=== PATIENT | female | born 1955 | race Caucasian/White ===

== ENCOUNTER 2016-05-05 11:22 | Inpatient (IN) | payer BC, OTHER ==
[~2016-05-05] VITALS: Ht 165.1 cm; Wt 149.1 kg
[~2016-05-05 11:22] MED LIST: ADVIN25050 INH; AMOX875T PO; BMX1 PO; CHOL100010 PO; DOXY100C2 PO; INSU1.2I SQ; LORC1TAB PO; MULTTAB PO; PRED10TA PO; SIMV80TA5 PO; TIOTCAP INH; VITA400C15 PO
[2016-05-05] MEDS ORDERED: FUROSEMIDE 40 MG/4 ML VIAL IV STA (12:02)
[2016-05-05] MEDS ORDERED: ALBUT/IPRATROP 3MG/0.5MG NEB 3 ML VIAL INH STA (12:02)
[2016-05-05 12:13] LABS: BASO % 0.2 %; BASO ABS # 0.02 K/uL (0-0.2); EOS % 1.8 %; HEMATOCRIT 32.5 % (37-47); IG% 1.1 %; LYMPH % 8.9 %; LYMPH ABS # 0.93 K/uL (1.2-3.4); MEAN CELL VOLUME 96.4 fL (80-100); MEAN CORPUSCULAR HEMOGLOBIN 30.6 pg (25-34); MEAN CORPUSCULAR HGB CONC 31.7 g/dl (32-36); MEAN PLATELET VOLUME 9.9 fL (7.4-10.4); MONO % 12.1 %; NEUT % 75.9 %; PLATELET COUNT 209 K/uL (130-400); RED BLOOD COUNT 3.37 M/uL (4.2-5.4); WHITE BLOOD COUNT 10.42 K/uL (4.8-10.8)
[2016-05-05 12:27] LABS: PARTIAL THROMBOPLASTIN RATIO 0.8; PROTHROMBIN TIME (PATIENT) 10.8 SECONDS (9.0-12.0)
--- NOTE | 2016-05-05 12:34 | DIAGNOSTIC IMAGING REPORT ---
CHEST ONE VIEW PORTABLE CLINICAL HISTORY: Shortness of breath, edema. COMPARISON STUDY: 08/20/2015 FINDINGS: The right-sided PICC catheter has been removed. Heart is enlarged. Evaluation is difficult due to the patient's large body habitus. There is suspected asymmetric pulmonary vascular congestion. There is right basilar atelectasis/consolidation. Bibasilar atelectatic changes are also evident.[ Radiographic follow-up is recommended. IMPRESSION: 1. Difficult study to interpret due to the patient's large body habitus and portable nature of the examination 2. Suspected mild asymmetric pulmonary vascular congestion 3. Right medial basilar atelectasis/consolidation 4. Bibasilar atelectasis Electronically signed by: Trung Diallo M.D. 05/05/2016 12:33 PM Dictated Date/Time: 05/05/2016 12:31 PM
[2016-05-05 12:37] LABS: ALB/GLOB RATIO 0.5 (0.9-2); ALKALINE PHOSPHATASE 70 U/L (45-117); ALT/SGPT 34 U/L (12-78); AST/SGOT 15 U/L (15-37); BLOOD UREA NITROGEN 55 mg/dl (7-18); BUN/CREATININE RATIO 26.3 (10-20); CALCIUM 9.8 mg/dl (8.5-10.1); CARBON DIOXIDE 40 mmol/L (21-32); CHLORIDE 94 mmol/L (98-107); CKMB/CK RATIO 4.5 (0-3.0); GLUCOSE 115 mg/dl (70-99); POTASSIUM 4.1 mmol/L (3.5-5.1); SODIUM 139 mmol/L (136-145)
[2016-05-05 12:55] LABS: COMPLETE YES
[2016-05-05] MEDS ORDERED: HYDR-5688 PO (13:08)
[2016-05-05] MEDS ORDERED: SPIR50TA2 PO (13:08)
[2016-05-05] MEDS ORDERED: IPRASOL4 INH (13:08)
[2016-05-05] MEDS ORDERED: ACETAMINOPHEN 325 MG TAB PO PRN (14:00)
[2016-05-05] MEDS ORDERED: POLYETHYLENE (MIRALAX) 17 GM PACK PO PRN (14:00)
[2016-05-05] MEDS ORDERED: MAGNESIUM HYDROXIDE SUSP 30 ML UDC PO PRN (14:00)
[2016-05-05] MEDS ORDERED: ALUMINUM/MAGNESIUM/SIMETH (MAALOX MAX) 30 ML UDC PO PRN (14:00)
[2016-05-05] MEDS ORDERED: ONDANSETRON INJ 2 MG/ML 2 ML VIAL IV PRN (14:00)
--- NOTE | 2016-05-05 14:09 | EMERGENCY ROOM VISIT NOTE ---
History Report prepared by [place]: Aziza Hood Under the Supervision of: Dr. Wolf Dowling D.O. 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 The patient states that she has fluid build up and takes medication for it but states in the past she has had to be seen in the ED to get liquid Lasix to treat the edema. She states her symptoms started to feel similar to when she had to be hospitalized in the past. The patient states the edema is her all over her body not just her legs. She states she feels her symptoms are worse on the right than the left side. The patient states her swelling in her legs and feet are worsened to the point she has been unable to put on shoes. She also states she has had increased SOB and usually wears 3 L of oxygen at home but has up it to 4 L but still has worsening SOB with exertion. Her states that when she gets up at any point her oxygen saturation goes down very low when they are at home. The patient states that she also has degenerative disc disease and states at baseline she cannot get around very well but states that it is much worse recently due to the edema and SOB. 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 A total of 10 systems reviewed and were otherwise negative. Past Medical & Surgical Medical Problems: (1) Acute kidney injury (2) Acute on chronic diastolic (congestive) heart failure (3) Acute respiratory failure with hypoxia and hypercapnia (4) Anemia (5) Cellulitis Of Leg (6) Cervical Disc Degen (7) CHF (congestive heart failure) (8) Chronic kidney disease (CKD) stage G3b/A1, moderately decreased glomerular filtration rate (GFR) between 30-44 mL/min/1.73 square meter and albuminuria creatinine ratio less than 30 mg/g (9) COPD (chronic obstructive pulmonary disease) (10) Cystitis (11) Diab Mariama Wo Compl, Type Ii Or Unspec Type, Uncontrolled (12) Diabetes (13) Edema (14) Hyponatremia (15) Metabolic alkalosis with respiratory acidosis (16) Obesity hypoventilation syndrome (17) Ovarian Cyst Nec/Nos (18) Pulmonary Collapse (19) Sciatica Family History Cancer Diabetes mellitus Gallbladder disease Heart disease Lung disease Social History Smoking Status: Former Smoker Drug Use: none Marital Status: Housing Status: lives with family Occupation Status: unemployed Current/Historical Medications Scheduled Allopurinol (Zyloprim), 100 MG PO DAILY Amoxicillin & Pot Clavulanate (Augmentin 875-125 mg), 1 TAB PO BID Ascorbic Acid (Vitamin C 500 mg), 1,000 MG PO DAILY Atorvastatin (Lipitor), 40 MG PO DAILY Bumetanide (Bumetanide), 3 MG PO BID17 Cholecalciferol (Vitamin D3), 1,000 UNITS PO DAILY Doxycycline Hyclate (Vibramycin), 100 MG PO BID Fluticasone Prop/Salmeterol (Advair Diskus 500/50 60 Dose), 1 PUFF INH BID Insulin Aspart (Novolog Flexpen), 50 UNITS SQ W/BREAKFAST Insulin Aspart (Novolog Flexpen), 50 UNITS SQ W/LUNCH Insulin Aspart (Novolog Flexpen), 90 UNITS SQ W/SUPPER Insulin Aspart (Novolog Flexpen), 40 UNITS SQ HS Insulin Glargine (Toujeo Solostar), 70 UNIT SQ TID Lorcaserin Hcl (Belviq), 10 MG PO BID Metoprolol Succ (Toprol Xl) (Toprol-Xl ), 150 MG PO DAILY Multiple Vitamins W/ Minerals (One Daily For Women), 1 TAB PO DAILY Prednisone (Prednisone), 15 MG PO QAM Pregabalin (Lyrica), 150 MG PO TID Pyridoxine (Vitamin B6), 200 MG PO DAILY Spironolactone (Aldactone), 50 MG PO BID Tiotropium Marion (Spiriva Handihaler), 1 CAP INH BID Verapamil HCl (Verapamil HCl ER), 240 MG PO DAILY Vitamin E (Vitamin E), 800 UNITS PO DAILY Scheduled PRN Hydrocodone/Acetaminophen 5MG/325MG (Thorndike 5MG/325MG), 1-2 TABLET PO Q4H PRN for Pain Ipratropium-Albuterol (Duoneb), 1 TREATMENT INH Q6H PRN for SOB/Wheezing Allergies Coded Allergies: Daptomycin (Verified Allergy, Mild, HIVES, 02/25/16) itching Codeine (Verified Allergy, Unknown, unknown, 02/25/16) has tolerated morphine Iodine (Verified Allergy, Unknown, 02/25/16) Shellfish (Verified Allergy, Unknown, 02/25/16) Sulfamethoxazole w/Trimethoprim (Verified Allergy, Unknown, RASH, 02/25/16 ) Physical Exam Vital Signs Date Time Temp Pulse Resp B/P Pulse Ox O2 Delivery O2 Flow Rate FiO2 05/05/16 13:49 71 27 138/61 95 Nasal Cannula 4.0 05/05/16 13:28 69 26 153/69 94 Nasal Cannula 4.0 05/05/16 12:14 77 05/05/16 12:14 93 Nasal Cannula 4.0 05/05/16 11:50 86 Nasal Cannula 3.0 05/05/16 11:28 36.6 76 28 143/67 93 Nasal Cannula Physical Exam CONSTITUTIONAL/VITAL SIGNS: Reviewed / noted above. GENERAL: Non-toxic in appearance. INTEGUMENTARY: Warm, dry, and [place]. HEAD: Normocephalic. EYES: without scleral icterus or trauma. ENT/OROPHARYNX: clear and moist. LYMPHADENOPATHY/NECK: Is supple without lymphadenopathy or meningismus. RESPIRATORY: Lungs clear and equal. No respiratory distress. CARDIOVASCULAR: Regular rate and rhythm. GI/ABDOMEN: Soft and nontender. No organomegaly or pulsatile mass. No rebound or guarding. Normal bowel sounds. Abdominal wall edema with extension. EXTREMITIES: Bilateral lower extremity edema. BACK: No CVA tenderness. NEUROLOGICAL: Intact without focal deficits. PSYCHIATRIC: normal affect. MUSCULOSKELETAL: Normally developed with good muscle tone. Medical Decision & Procedures ER Provider Diagnostic Interpretation: X ray results and stated below per my interpretation and radiology interpretation. CHEST ONE VIEW PORTABLE CLINICAL HISTORY: Shortness of breath, edema. COMPARISON STUDY: 08/20/2015 FINDINGS: The right-sided PICC catheter has been removed. Heart is enlarged. Evaluation is difficult due to the patient's large body habitus. There is suspected asymmetric pulmonary vascular congestion. There is right basilar atelectasis/consolidation. Bibasilar atelectatic changes are also evident.[ Radiographic follow-up is recommended. IMPRESSION: 1. Difficult study to interpret due to the patient's large body habitus and portable nature of the examination 2. Suspected mild asymmetric pulmonary vascular congestion 3. Right medial basilar atelectasis/consolidation 4. Bibasilar atelectasis Electronically signed by: Trung Diallo M.D. 05/05/2016 12:33 PM Dictated Date/Time: 05/05/2016 12:31 PM Laboratory Results 05/05/16 11:50 Red Blood Count 3.37, Mean Corpuscular Volume 96.4, Mean Corpuscular Hemoglobin 30.6, Mean Corpuscular Hemoglobin Concent 31.7, Mean Platelet Volume 9.9, Neutrophils (%) (Auto) 75.9, Lymphocytes (%) (Auto) 8.9, Monocytes (%) (Auto) 12.1, Eosinophils (%) (Auto) 1.8, Basophils (%) (Auto) 0.2, Neutrophils # (Auto ) 7.91, Lymphocytes # (Auto) 0.93, Monocytes # (Auto) 1.26, Eosinophils # (Auto ) 0.19, Basophils # (Auto) 0.02 05/05/16 11:50 Test 05/05/16 11:50 White Blood Count 10.42 K/uL (4.8-10.8) Red Blood Count 3.37 M/uL (4.2-5.4) Hemoglobin 10.3 g/dL (12.0-16.0) Hematocrit 32.5 % (37-47) Mean Corpuscular Volume 96.4 fL (80-100) Mean Corpuscular Hemoglobin 30.6 pg (25-34) Mean Corpuscular Hemoglobin Concent 31.7 g/dl (32-36) Platelet Count 209 K/uL (130-400) Mean Platelet Volume 9.9 fL (7.4-10.4) Neutrophils (%) (Auto) 75.9 % Lymphocytes (%) (Auto) 8.9 % Monocytes (%) (Auto) 12.1 % Eosinophils (%) (Auto) 1.8 % Basophils (%) (Auto) 0.2 % Neutrophils # (Auto) 7.91 K/uL (1.4-6.5) Lymphocytes # (Auto) 0.93 K/uL (1.2-3.4) Monocytes # (Auto) 1.26 K/uL (0.11-0.59) Eosinophils # (Auto) 0.19 K/uL (0-0.5) Basophils # (Auto) 0.02 K/uL (0-0.2) RDW Standard Deviation 70.9 fL (36.4-46.3) RDW Coefficient of Variation 20.1 % (11.5-14.5) Immature Granulocyte % (Auto) 1.1 % Immature Granulocyte # (Auto) 0.11 K/uL (0.00-0.02) Nucleated RBC Absolute Count (auto) 0.12 K/uL (0-0) Nucleated Red Blood Cells % 1.1 % Red Blood Cell Morphology Unremarkable Prothrombin Time 10.8 SECONDS (9.0-12.0) Prothromb Time International Ratio 1.0 (0.9-1.1) Activated Partial Thromboplast Time 20.8 SECONDS (21.0-31.0) Partial Thromboplastin Ratio 0.8 Anion Gap 5.0 mmol/L (3-11) Est Creatinine Clear Calc Drug Dose 42.1 ml/min Estimated GFR () 28.5 Estimated GFR (Non- 24.6 BUN/Creatinine Ratio 26.3 (10-20) Calcium Level 9.8 mg/dl (8.5-10.1) Total Bilirubin 0.3 mg/dl (0.2-1) Aspartate Amino Transf (AST/SGOT) 15 U/L (15-37) Alanine Aminotransferase (ALT/SGPT) 34 U/L (12-78) Alkaline Phosphatase 70 U/L (45-117) Total Creatine Kinase 53 U/L (26-192) Creatine Kinase MB 2.4 ng/ml (0.5-3.6) Creatine Kinase MB Ratio 4.5 (0-3.0) Troponin I < 0.015 ng/ml (0-0.045) Pro-B-Type Natriuretic Peptide 199 pg/ml (0-900) Total Protein 8.9 gm/dl (6.4-8.2) Albumin 3.0 gm/dl (3.4-5.0) Globulin 5.9 gm/dl (2.5-4.0) Albumin/Globulin Ratio 0.5 (0.9-2) Laboratory results as stated above per my review. Medications Administered Medications (Trade) Dose Ordered Sig/Duyen Route Start Time Stop Time Status Last Admin Dose Admin Albuterol/ Ipratropium (Duoneb) 3 ml NOW STAT INH 05/05/16 12:02 05/05/16 12:04 DC 05/05/16 12:07 3 ML Furosemide (Lasix Inj) 40 mg NOW STAT IV 05/05/16 12:02 05/05/16 12:04 DC 05/05/16 12:07 40 MG ECG Indication: SOB/dyspnea Rate (beats per minute): 67 Rhythm: normal sinus Findings: no acute ischemic change, no ectopy ED Course 1158: Previous medical records were reviewed. The patient was evaluated in room C2B. A complete history and physical examination was performed. 1202: Ordered Lasix Inj 40 mg IV, DuoNeb 3 ml INH. 1333: I discussed the case with Dr. Erendira MULLINS Hospitalist. He agreed to evaluate the patient for further management and care. Medical Decision the differential was considered includes acute myocardial infarction, acute coronary syndrome, myocarditis, pericarditis, pericardial effusions /tamponade, esophageal perforation, pulmonary embolism, pneumonia, pneumothorax, cardiomyopathy, congestive heart, anemia , COPD/asthma exacerbation. 60-year-old female who presents to the ED with a chief complaint of exertional dyspnea as well as edema. The patient has a pulse ox at home and states that she becomes hypoxic with oxygen saturations in the 70s when she attempts to walk to the bathroom with 4 L of oxygen. The patient reports increasing edema. Her vital signs are stable. Her exam reveals significant edema to the lower extremities as well as the body. The patient did desaturate into the low 80s while on 4 L getting from the wheelchair into her bed. Her lungs are diminished. The rest of her exam is noted above. She was treated with IV Lasix as well as a DuoNeb treatment. She has chronic renal insufficiency. Chest x-ray did not show acute disease. Blood work was relatively unremarkable. The patient was told results. She will be seen by the hospitalist for further inpatient care and evaluation. Consults Time Called: 1331 Consulting Physician: Dr. Erendira MULLINS Hospitalist. Returned Call: [phone] I discussed the case with Dr. Erendira MULLINS Hospitalist. He agreed to evaluate the patient for further management and care. Impression Primary Impression: Dyspnea on exertion Additional Impressions: exertional hypoxia Anasarca Chronic renal failure Scribe Attestation The scribe's documentation has been prepared under my direction and personally reviewed by me in its entirety. I confirm that the note above accurately reflects all work, treatment, procedures, and medical decision making performed by me. Departure Information Dispostion Being Evaluated By Hospitalist Referrals Emily Isaac C.R.N.P (PCP) Patient Instructions My [facility] Problem Qualifiers
[2016-05-05 14:58] LABS: ARTERIAL BLD GAS O2 SATURATION 93.9 % (90-95); ARTERIAL BLOOD GAS BASE EXCESS 11.8 mEq/L (-9-1.8); ARTERIAL BLOOD GAS HCO3 39 mmol/L (19-24); ARTERIAL BLOOD GAS PO2 80 mm/Hg (80-95); ARTERIAL BLOOD GAS pH 7.41 (7.35-7.45)
[2016-05-05 14:59] LABS: O2 ADMINISTRATION 4 L
[2016-05-05 15:00] LABS: ALLEN TEST POS (POS)
[2016-05-05 15:38] VITALS: BP 176/76; PULSE 73; TEMP 36.6; O2SAT 93; Ht 165.1 cm; Wt 149.1 kg
[2016-05-05] MEDS ORDERED: PHARMACY GLYCEMIC MGMT CONSULT PRN (15:48)
[2016-05-05 16:10] VITALS: PULSE 71; O2SAT 97
[2016-05-05] MEDS: ALBUT/IPRATROP 3MG/0.5MG NEB 3 ML VIAL INH SCH ×2 (16:10→19:32)
[2016-05-05 16:16] LABS: HEMATOCRIT 30.7 % (37-47); MEAN CELL VOLUME 94.5 fL (80-100); MEAN CORPUSCULAR HEMOGLOBIN 31.1 pg (25-34); MEAN CORPUSCULAR HGB CONC 32.9 g/dl (32-36); MEAN PLATELET VOLUME 9.5 fL (7.4-10.4); PLATELET COUNT 186 K/uL (130-400); RED BLOOD COUNT 3.25 M/uL (4.2-5.4); WHITE BLOOD COUNT 11.33 K/uL (4.8-10.8)
--- NOTE | 2016-05-05 16:33 | Pharmacy Progress Note ---
Glycemic Control Intl Consult Date of Service May 05, 2016. Scope Glycemic Pharmacist consulted by Dr Traylor on 05/05/16 for glycemic control and to write orders per [facility] inpatient glycemic control protocol Objective Weight (Kilograms): 154.400 Accuchecks BSG (last 24hrs): Test 05/05/16 11:50 05/05/16 16:04 05/05/16 16:07 Random Glucose 115 mg/dl (70-99) Bedside Glucose 139 mg/dl (70-90) Laboratory Data (last 24hrs) Test 05/05/16 11:50 05/05/16 16:07 Anion Gap 5.0 mmol/L BUN/Creatinine Ratio 26.3 Blood Urea Nitrogen 55 mg/dl Creatinine 2.10 mg/dl Potassium Level 4.1 mmol/L Sodium Level 139 mmol/L White Blood Count 10.42 K/uL 11.33 K/uL Red Blood Count 3.37 M/uL Hemoglobin 10.3 g/dL Hematocrit 32.5 % Mean Corpuscular Volume 96.4 fL Mean Corpuscular Hemoglobin 30.6 pg Mean Corpuscular Hemoglobin Concent 31.7 g/dl Platelet Count 209 K/uL Mean Platelet Volume 9.9 fL Neutrophils (%) (Auto) 75.9 % Lymphocytes (%) (Auto) 8.9 % Monocytes (%) (Auto) 12.1 % Eosinophils (%) (Auto) 1.8 % Basophils (%) (Auto) 0.2 % Neutrophils # (Auto) 7.91 K/uL Lymphocytes # (Auto) 0.93 K/uL Monocytes # (Auto) 1.26 K/uL Eosinophils # (Auto) 0.19 K/uL Basophils # (Auto) 0.02 K/uL Recent Pertinent Medications Outpatient Anti-diabetic Regimen: * Toujeo 70 units SQ TID * NovoLog * 50 units SQ with breakfast * 50 units SQ with lunch * 90 units SQ with dinner * 40 units SQ at bedtime * A1c = 6.2 % 02/13/16 Risk Factors for Insulin Resistance: * Steroids: Prednisone 15mg PO daily (home medication) * Infection: PO ABX from [employer] * Diet: AHA Assessment & Plan ASSESSMENT: 05/05/16 * Type 2 diabetic known from prior admissions and consults, the last being in August 2015 * A1c is WNL and shows adequate glycemic control as an outpatient with ~440 units of insulin per day * Large doses of insulin needed as an outpatient, however needs change when admitted * large doses required when on ATC steroids * Currently, BSGs are WNL * Transition Toujeo to Lantus as this is a non-formulary medication * Doses of insulin will be decreased initially and titrated based on response as intpatient needs usually vary compared to home regimen * NovoLog parameters based on historical data PLAN FOR INPATIENT GLYCEMIC CONTROL: * Lantus SQ BID * 50 units if BSG is below 120mg/dL * 60 units if BSG is 120-160mg/dL * 70 units if BSG is above 160mg/dL * NovoLog SQ AC and HS * Correction factor: 5mg/dL/unit * Carb ratio: 1 unit per 2 g of CHO consumed * Goal range: 110-150mg/dL * A1c - current * added to discharge instructions * Please note that the plan above was derived based on current level of insulin resistance and hospital stress. These recommendations are appropriate for inpatient admission only. Plan of care upon discharge will need to be reassessed to avoid potential outpatient hypo/hyperglycemia. Thank you.
--- NOTE | 2016-05-05 16:41 | Medical Student: [facility] ---
Med Student History & Physical Date & Time of Service: May 05, 2016 at 15:43 Chief Complaint: "shortness of breath and swelling" Primary Care Physician: Emily Isaac C.R.N.P History of Present Illness Source: patient Mrs. Gaytan is a 60 year old female with past medical history significant for diastolic CHF, CKD stage III, COPD, HTN, and DM who presented to the Emergency Department with shortness of breath and swelling. Patient reports she first noticed symptoms two days ago. She states gradual onset and symptoms have been progressively worsening since. She states swelling first began in legs and feet and has moved to include her face, hands and abdomen. She notes her shoes no longer fit. She reports increasing shortness of breath with exertion. She states she can no longer walk to the bathroom or to get a glass of water without getting short of breath. She notes breathing is relieved only when sitting upright resting. Patient reports she is on continuous 3 L oxygen via nasal cannula at home. She states she wears bipap consistently every night for obstructive sleep apnea. She states she has had three similar episodes to this in the past year. She says she has been treated with diuretics and symptoms resolve. Reports creatinine increases each episode but decreases to her baseline of around 1 after diuretic treatment. Patient notes she was first diagnosed with CHF two years ago. Patient states she takes Bumex 3mg BID, Spironolactone 50 mg BID, Toprol XL 150 mg, and Verapamil 240 mg for CHF. She denies taking daily weights. She denies any known triggers to current episode. She reports she has not missed doses of medications. She denies recent illness and any changes in diet. She states her diet is low salt. Most recent ECHO from 07/15 revealed mild concentric left ventricular hypertrophy, ejection fraction > 70%, class I diastolic dysfunction, no wall motion abnormalities, mild dilation of right ventricle, mild tricuspid regurgitation, mild systolic pressure elevation of right ventricle. Patient also reports history of COPD. She states she was diagnosed 3 years ago. She notes she takes prednisone 15 mg daily and uses Spiriva and Advair inhalers daily. She reports she sees Dr. Chávez every 4-6 months for follow up. She also reports she has been seeing weight management for past 6 months and has started taking Belviq to help with weight loss. Patient also states she is also undergoing course of antibiotics for cellulitis currently. She sees Gabriella Tong in Infectious Disease regularly. She states she has been taking Augmentin and Doxycycline for the past 6 months. In the ED pateint desaturated to 86% and oxygen was increased to 4 L via nasal cannula. Patient stabilized. Patient was started on Lasix IV 40 mg and given DuoNeb 3 ml inhaler. Patient will be admitted for further evaluation and monitoring needed for acute respiratory failure. Past Medical/Surgical History Medical Problems: (1) Anasarca Status: Acute (2) Bilateral cellulitis of lower leg Status: Acute (3) Bilateral lower leg cellulitis Status: Acute (4) Chronic renal failure Status: Acute (5) CO2 retention Status: Acute (6) Dyspnea on exertion Status: Acute (7) Hypoxemia Status: Acute (8) Hypoxia Status: Acute (9) Respiratory failure Status: Acute (10) DM, type 2 Status: Chronic (11) Diastolic CHF Status: Chronic (12) COPD Status: Chronic (13) Chronic Kidney Disease, Stage III Status: Chronic (14) Hypertension Status: Chronic (15) Hyperlipidemia Status: Chronic Family History Other: COPD, HTN, diabetes, cancer Social History Smoking Status: Former Smoker Smokeless Tobacco Use: No Alcohol Use: none Drug Use: none Marital Status: Housing status: lives with family Occupational Status: unemployed Immunizations History of Influenza Vaccine: Yes Influenza Vaccine Date: Apr 15, 2012 History of Tetanus Vaccine?: No History of Pneumococcal: Yes Pneumococcal Date: Jan 13, 2013 History of Hepatitis B Vaccine: No Allergies Coded Allergies: Daptomycin (Verified Allergy, Mild, HIVES, 02/25/16) itching Codeine (Verified Allergy, Unknown, unknown, 02/25/16) has tolerated morphine Iodine (Verified Allergy, Unknown, 02/25/16) Shellfish (Verified Allergy, Unknown, 02/25/16) Sulfamethoxazole w/Trimethoprim (Verified Allergy, Unknown, RASH, 02/25/16 ) Medications Allopurinol (Zyloprim), 100 MG PO DAILY Amoxicillin & Pot Clavulanate (Augmentin 875-125 mg), 1 TAB PO BID Ascorbic Acid (Vitamin C 500 mg), 1,000 MG PO DAILY Atorvastatin (Lipitor), 40 MG PO DAILY Bumetanide (Bumetanide), 3 MG PO BID17 Cholecalciferol (Vitamin D3), 1,000 UNITS PO DAILY Doxycycline Hyclate (Vibramycin), 100 MG PO BID Fluticasone Prop/Salmeterol (Advair Diskus 500/50 60 Dose), 1 PUFF INH BID Hydrocodone/Acetaminophen 5MG/325MG ([place] 5MG/325MG), 1-2 TABLET PO Q4H PRN for Pain Insulin Aspart (Novolog Flexpen), 50 UNITS SQ W/BREAKFAST Insulin Aspart (Novolog Flexpen), 50 UNITS SQ W/LUNCH Insulin Aspart (Novolog Flexpen), 90 UNITS SQ W/SUPPER Insulin Aspart (Novolog Flexpen), 40 UNITS SQ HS Insulin Glargine (Toujeo Solostar), 70 UNIT SQ TID Ipratropium-Albuterol (Duoneb), 1 TREATMENT INH Q6H PRN for SOB/Wheezing Lorcaserin Hcl (Belviq), 10 MG PO BID Metoprolol Succ (Toprol Xl) (Toprol-Xl ), 150 MG PO DAILY Multiple Vitamins W/ Minerals (One Daily For Women), 1 TAB PO DAILY Prednisone (Prednisone), 15 MG PO QAM Pregabalin (Lyrica), 150 MG PO TID Pyridoxine (Vitamin B6), 200 MG PO DAILY Spironolactone (Aldactone), 50 MG PO BID Tiotropium [place] (Spiriva Handihaler), 1 CAP INH BID Verapamil HCl (Verapamil HCl ER), 240 MG PO DAILY Vitamin E (Vitamin E), 800 UNITS PO DAILY Review of Systems Constitutional: + fatigue, No chills, No fever, No sweats, No weakness ENT: No nasal symptoms, No sore throat Respiratory: + dyspnea on exertion, + shortness of breath, No cough, No dyspnea at rest, No hemoptysis, No sputum, No wheezing Cardiovascular: + edema, + orthopnea, No chest pain, No palpitations Abdomen: No constipation, No diarrhea, No nausea, No pain, No vomiting Musculoskeletal: No calf pain Genitourinary - Female: No dysuria, No urinary frequency, No urinary retention , No urinary urgency Neurologic: No numbness/tingling Endocrine: No excessive thirst, No excessive urination Physical Exam Vital Signs (24 Hours) Date Time Temp Pulse Resp B/P Pulse Ox O2 Delivery O2 Flow Rate FiO2 05/05/16 13:49 71 27 138/61 95 Nasal Cannula 4.0 05/05/16 13:49 68 27 141/62 95 05/05/16 13:28 69 26 153/69 94 Nasal Cannula 4.0 05/05/16 12:14 77 05/05/16 12:14 93 Nasal Cannula 4.0 05/05/16 11:50 86 Nasal Cannula 3.0 05/05/16 11:28 36.6 76 28 143/67 93 Nasal Cannula General Appearance: WD/WN, no apparent distress Neck: supple, no adenopathy, thyroid normal, no JVD, no carotid bruits Respiratory/Chest: no respiratory distress, no accessory muscle use, + crackles (bibasilar) Cardiovascular: regular rate, rhythm, no edema, no gallop, no JVD, no murmur, normal peripheral pulses Abdomen/GI: normal bowel sounds, non tender, + distended Extremities/Musculoskelatal: no calf tenderness, + pedal edema, + swelling Neurologic/Psych: alert, normal mood/affect, oriented x 3 Skin: + pertinent finding (erythematous, warm to touch bilateral lower extremities) [facility] Diagnostics Laboratory Results Results Past 24 Hours Test 05/05/16 11:50 05/05/16 14:45 05/05/16 15:13 05/05/16 15:38 Range/Units White Blood Count 10.42 4.8-10.8 K/uL Red Blood Count 3.37 4.2-5.4 M/uL Hemoglobin 10.3 12.0-16.0 g/dL Hematocrit 32.5 37-47 % Mean Corpuscular Volume 96.4 80-100 fL Mean Corpuscular Hemoglobin 30.6 25-34 pg Mean Corpuscular Hemoglobin Concent 31.7 32-36 g/dl Platelet Count 209 130-400 K/uL Mean Platelet Volume 9.9 7.4-10.4 fL Neutrophils (%) (Auto) 75.9 % Lymphocytes (%) (Auto) 8.9 % Monocytes (%) (Auto) 12.1 % Eosinophils (%) (Auto) 1.8 % Basophils (%) (Auto) 0.2 % Neutrophils # (Auto) 7.91 1.4-6.5 K/uL Lymphocytes # (Auto) 0.93 1.2-3.4 K/uL Monocytes # (Auto) 1.26 0.11-0.59 K/uL Eosinophils # (Auto) 0.19 0-0.5 K/uL Basophils # (Auto) 0.02 0-0.2 K/uL RDW Standard Deviation 70.9 36.4-46.3 fL RDW Coefficient of Variation 20.1 11.5-14.5 % Immature Granulocyte % (Auto) 1.1 % Immature Granulocyte # (Auto) 0.11 0.00-0.02 K/uL Nucleated RBC Absolute Count (auto) 0.12 0-0 K/uL Nucleated Red Blood Cells % 1.1 % Red Blood Cell Morphology Unremarkable Prothrombin Time 10.8 9.0-12.0 SECONDS Prothromb Time International Ratio 1.0 0.9-1.1 Activated Partial Thromboplast Time 20.8 21.0-31.0 SECONDS Partial Thromboplastin Ratio 0.8 Sodium Level 139 136-145 mmol/L Potassium Level 4.1 3.5-5.1 mmol/L Chloride Level 94 98-107 mmol/L Carbon Dioxide Level 40 21-32 mmol/L Anion Gap 5.0 3-11 mmol/L Blood Urea Nitrogen 55 7-18 mg/dl Creatinine 2.10 0.60-1.20 mg/dl Est Creatinine Clear Calc Drug Dose 42.1 ml/min Estimated GFR () 28.5 Estimated GFR (Non- 24.6 BUN/Creatinine Ratio 26.3 10-20 Random Glucose 115 70-99 mg/dl Calcium Level 9.8 8.5-10.1 mg/dl Total Bilirubin 0.3 0.2-1 mg/dl Aspartate Amino Transf (AST/SGOT) 15 15-37 U/L Alanine Aminotransferase (ALT/SGPT) 34 12-78 U/L Alkaline Phosphatase 70 45-117 U/L Total Creatine Kinase 53 26-192 U/L Creatine Kinase MB 2.4 0.5-3.6 ng/ml Creatine Kinase MB Ratio 4.5 0-3.0 Troponin I < 0.015 0-0.045 ng/ml Pro-B-Type Natriuretic Peptide 199 0-900 pg/ml Total Protein 8.9 6.4-8.2 gm/dl Albumin 3.0 3.4-5.0 gm/dl Globulin 5.9 2.5-4.0 gm/dl Albumin/Globulin Ratio 0.5 0.9-2 Arterial Blood pH 7.41 7.35-7.45 Arterial Blood Partial Pressure CO2 62 35-46 mmHg Arterial Blood Partial Pressure O2 80 80-95 mm/Hg Arterial Blood HCO3 39 19-24 mmol/L Arterial Blood Oxygen Saturation 93.9 90-95 % Arterial Blood Base Excess 11.8 -9-1.8 mEq/L Arterial Blood Gas Delivery 4 L Oleg Test POS POS Diagnostic Radiology CHEST ONE VIEW PORTABLE CLINICAL HISTORY: Shortness of breath, edema. COMPARISON STUDY: 08/20/2015 FINDINGS: The right-sided PICC catheter has been removed. Heart is enlarged. Evaluation is difficult due to the patient's large body habitus. There is suspected asymmetric pulmonary vascular congestion. There is right basilar atelectasis/consolidation. Bibasilar atelectatic changes are also evident.[ Radiographic follow-up is recommended. IMPRESSION: 1. Difficult study to interpret due to the patient's large body habitus and portable nature of the examination 2. Suspected mild asymmetric pulmonary vascular congestion 3. Right medial basilar atelectasis/consolidation 4. Bibasilar atelectasis EKG Normal Sinus Rhythm Normal EKG, No change from prior EKG (August 2015) Impression Assessment and Plan Mrs. Gaytan is a 60 year old female with past medical history significant for diastolic CHF, COPD, CKD stage III, HTN, and type 2 DM who presented to ED today for increasing shortness of breath and swelling. 1. Acute Respiratory Failure - Failure is likely due to acute exacerbation of diastolic CHF with fluid overload. Last ECHO in 07/2015 revealed Class I Diastolic dysfunction. Patient has had three similar episodes in past that have resolved with diuretic treatment. Patient is edematous is bilateral legs and abdomen, suggestive of fluid overload. Chest Xray revealed mild pulmonary congestion, also suggestive of fluid overload. Chest xray ruled out possibility of PE, pneumothorax, pneumonia as other potential causes of shortness of breath. EKG revealed normal sinus rhythm, ruling out possibility of new onset afib or other arrhythmias as well as PA as cause of exacerbation and SOB. Troponin levels were normal on lab work making PA less likely as well. Patient has history of COPD. Shortness of breath makes an acute exacerbation a possibility. However patient denied increase or presence cough and sputum production, which are typical of COPD exacerbation though not necessary, making this less likely than CHF exacerbation but still a possibility. Trigger of exacerbation unclear. Patient denied recent illness. Diet change, noncompliance , or inadequate medication dosing are still possibility. -Continue 4L oxygen via nasal canula -Order ABG and follow levels -Continue DuoNebs PRN. -Continue to follow oxygen saturation -Continue bipap use at night 2. Acute on Chronic Diastolic CHF - Last ECHO (07/15) revealed class I diastolic dysfunction. Acute exacerbation and fluid overload most likely due to salt consumption or missing doses of medications or inadequate medication dosing. Leg and abdomen edema as well as bibasilar crackles on exam are suggestive of fluid overload. Chest xray also revealed pulmonary congestion. - Start IV Bumex 6 mg daily - Continue spironolactone 150 mg BID, Verapamil 240 mg daily, and Toprol XL 150 mg daily - Monitor input and output levels - Order daily weights - Continue salt restriction diet and fluid restriction - If patient's symptoms do not improve within a day or two consider repeat echo - Continue to follow electrolytes, renal function - Consider Potassium supplement if patient becomes hypokalemic 3. Chronic COPD - May be contributing to shortness of breath. However patient denies increase in cough/sputum production. Does not explain patient's fluid overload status. Patient has history of co2 retention. Lab values reveal increased bicarbonate. - Continue 4L oxygen via nasal canula - Continue prednisone 15 mg daily - Continue nebulizers PRN - Continue Advair and Spiriva inhalers - Continue to monitor ABG and bicarbonate levels - Monitor oxygen saturation. Aim for saturation in low 90s. 4. Chronic Kidney Disease, Stage III - Creatinine level currently 2.1. Patient' s baseline is low 1s. Increase likely due to fluid overload status due to likely CHF exacerbation rather than direct kidney source. - Continue to monitor creatinine levels - Consult Nephrology 5. Bilateral Lower Extremity Cellulitis - On exam patient has signs of continued cellulitis infection. Patient is undergoing antibiotic treatment currently. She is followed by Gabriella Tong. - Continue doxycycline 100 mg BID and Augmentin 875 mg BID daily - Consult Infectious disease if symptoms worsen such as fever and pain 6. Mixed metabolic alkalosis/respiratory acidosis - ABG revealed pH of 7.41, pCO2 of 62, and HCO3 39. Metabolic alkalosis likely due to diuresis. Respiratory acidosis likely due to chronic carbon dioxide retention. - Continue to monitor ABG levels - Continue oxygen daily nasal cannula - Continue bipap at night 7. Obesity - Likely contributing to co2 retention. Patient is currently seeing weight management for weight loss. - Continue BIPAP at night - Hold Belviq for now until patient stabilizes - Follow ABG and bicarbonate levels 8. Hypertension - Patient's blood pressure is mildly elevated. Could possibly be due to anxiety from shortness of breath. It is also possible blood pressure is not well controlled. - Continue to monitor blood pressure every 4 hours - Continue Bumex IV 6 mg, Verapamil 240 mg daily, Toprol XL 150 mg daily, and Spironolactone 150 mg BID 9. Type 2 Diabetes - Patient's blood sugar was 115. Most recent hemoglobin A1C was 6.1. Blood sugars are well controlled. - Continue NovoLog and Toujeo - Monitor blood sugars 10. Dyslipidemia - Current lipid levels unknown. Last available level from 2014 revealed triglycerides at 247, HDL at 36, and LDL at 73. - Continue Lipitor 40 mg daily - Encourage follow up with PCP upon discharge. 11. DVT Prophylaxis - Patient is not on any anticoagulants and does not have a history of bleeding problems. Patient has renal disease so would not consider low molecular weight heparin for anticoagulation. - Start Heparin 5000 Units subcutaneous TID Level of Care Telemetry Resuscitation Status DO NOT RESUSCITATE DVT Prophylaxis unfractionated heparin SQ
[2016-05-05 16:49] LABS: BUN/CREATININE RATIO 27.5 (10-20); CALCIUM 10.1 mg/dl (8.5-10.1); POTASSIUM 4.6 mmol/L (3.5-5.1)
--- NOTE | 2016-05-05 16:51 | History and Physical ---
History & Physical Date & Time of Service: May 05, 2016 at 15:05 Chief Complaint: EDEMA Primary Care Physician: Emily Isaac C.R.N.P History of Present Illness Source: patient, family 60 yo F w/ hx of Chronic Resp. Failure secondary to end-stage emphysema on BIPAP daily, 3 L O2 at home, Prednisone Advair, Duoneb as needed, CHF CLASS I Diastolic dysfunction, Morbid Obesity, Diabetes, CKD Stage III, p/w worsening Dyspnea within the last 2-3 days. Patient also reports gradual worsening of her edema in her feet, ankles, legs. She was hospitalized 3 x in the last year for similar symptoms. She denies CP, palpitation, presyncope/ syncope. Patient follows with [facility] [place] Cardiology, Pulmonology. In the ED, patient desaturated to 86 %. She was placed on Oxygen 3L, then 4 L and showed improvement. CO2 was 40. NO WCC. CXR showed pulmonary vascular congestion, Right medial basilar atelectasis/consolidation, Bibasilar atelectasis Past Medical/Surgical History Medical Problems: (1) Cellulitis Of Leg Status: Chronic (2) Cervical Disc Degen Status: Chronic (3) CHF (congestive heart failure) Status: Chronic (4) COPD (chronic obstructive pulmonary disease) Status: Chronic (5) Diab Mariama Wo Compl, Type Ii Or Unspec Type, Uncontrolled Status: Chronic (6) Diabetes Status: Chronic (7) Ovarian Cyst Nec/Nos Status: Chronic (8) Pulmonary Collapse Status: Resolved (9) Sciatica Status: Chronic Family History Cancer Diabetes mellitus Gallbladder disease Heart disease Lung disease Social History Smoking Status: Former Smoker Drug Use: none Marital Status: Housing status: lives with family Occupational Status: unemployed Immunizations History of Influenza Vaccine: Yes Influenza Vaccine Date: Apr 15, 2012 History of Tetanus Vaccine?: No History of Pneumococcal: Yes Pneumococcal Date: Jan 13, 2013 History of Hepatitis B Vaccine: No Multi-Drug Resistant Organisms History of MDRO: No Allergies Coded Allergies: Daptomycin (Verified Allergy, Mild, HIVES, 02/25/16) itching Codeine (Verified Allergy, Unknown, unknown, 02/25/16) has tolerated morphine Iodine (Verified Allergy, Unknown, 02/25/16) Shellfish (Verified Allergy, Unknown, 02/25/16) Sulfamethoxazole w/Trimethoprim (Verified Allergy, Unknown, RASH, 02/25/16 ) Home Medications Scheduled Allopurinol (Zyloprim), 100 MG PO DAILY Amoxicillin & Pot Clavulanate (Augmentin 875-125 mg), 1 TAB PO BID Ascorbic Acid (Vitamin C 500 mg), 1,000 MG PO DAILY Atorvastatin (Lipitor), 40 MG PO DAILY Bumetanide (Bumetanide), 3 MG PO BID17 Cholecalciferol (Vitamin D3), 1,000 UNITS PO DAILY Doxycycline Hyclate (Vibramycin), 100 MG PO BID Fluticasone Prop/Salmeterol (Advair Diskus 500/50 60 Dose), 1 PUFF INH BID Insulin Aspart (Novolog Flexpen), 50 UNITS SQ W/BREAKFAST Insulin Aspart (Novolog Flexpen), 50 UNITS SQ W/LUNCH Insulin Aspart (Novolog Flexpen), 90 UNITS SQ W/SUPPER Insulin Aspart (Novolog Flexpen), 40 UNITS SQ HS Insulin Glargine (Toujeo Solostar), 70 UNIT SQ TID Lorcaserin Hcl (Belviq), 10 MG PO BID Metoprolol Succ (Toprol Xl) (Toprol-Xl ), 150 MG PO DAILY Multiple Vitamins W/ Minerals (One Daily For Women), 1 TAB PO DAILY Prednisone (Prednisone), 15 MG PO QAM Pregabalin (Lyrica), 150 MG PO TID Pyridoxine (Vitamin B6), 200 MG PO DAILY Spironolactone (Aldactone), 50 MG PO BID Tiotropium Winn (Spiriva Handihaler), 1 CAP INH BID Verapamil HCl (Verapamil HCl ER), 240 MG PO DAILY Vitamin E (Vitamin E), 800 UNITS PO DAILY Scheduled PRN Hydrocodone/Acetaminophen 5MG/325MG ([place] 5MG/325MG), 1-2 TABLET PO Q4H PRN for Pain Ipratropium-Albuterol (Duoneb), 1 TREATMENT INH Q6H PRN for SOB/Wheezing Review of Systems Constitutional: No chills, No fever, No sweats, No weight loss Respiratory: + dyspnea on exertion, + shortness of breath, No cough, No sputum Cardiovascular: + edema, + orthopnea, No chest pain, No palpitations Abdomen: No constipation, No diarrhea, No nausea, No pain, No vomiting Musculoskeletal: No calf pain, No muscle pain Genitourinary - Female: No dysuria, No hematuria, No urinary frequency, No urinary retention, No urinary urgency Neurologic: No numbness/tingling, No paralysis, No weakness Integumentary: + rash (cellultis bilateral LE) Physical Exam Vital Signs Date Time Temp Pulse Resp B/P Pulse Ox O2 Delivery O2 Flow Rate FiO2 05/05/16 13:49 71 27 138/61 95 Nasal Cannula 4.0 05/05/16 13:49 68 27 141/62 95 05/05/16 13:28 69 26 153/69 94 Nasal Cannula 4.0 05/05/16 12:14 77 05/05/16 12:14 93 Nasal Cannula 4.0 05/05/16 11:50 86 Nasal Cannula 3.0 05/05/16 11:28 36.6 76 28 143/67 93 Nasal Cannula General Appearance: WD/WN, no apparent distress, + obese Head: normocephalic, atraumatic Eyes: normal inspection, PERRL, EOMI Neck: supple, no adenopathy Respiratory/Chest: chest non-tender, lungs clear, normal breath sounds, no respiratory distress, no accessory muscle use, + pertinent finding (OXygen at 4L ) Cardiovascular: regular rate, rhythm, no murmur Abdomen/GI: normal bowel sounds, non tender, soft, + distended Extremities/Musculoskelatal: no calf tenderness, + pertinent finding (2 + ARMANDO LE edema, warm to touch, erythematous) Neurologic/Psych: alert, normal mood/affect, oriented x 3 Diagnostics Laboratory Results Results Past 24 Hours Test 05/05/16 11:50 05/05/16 14:45 Range/Units White Blood Count 10.42 4.8-10.8 K/uL Red Blood Count 3.37 4.2-5.4 M/uL Hemoglobin 10.3 12.0-16.0 g/dL Hematocrit 32.5 37-47 % Mean Corpuscular Volume 96.4 80-100 fL Mean Corpuscular Hemoglobin 30.6 25-34 pg Mean Corpuscular Hemoglobin Concent 31.7 32-36 g/dl Platelet Count 209 130-400 K/uL Mean Platelet Volume 9.9 7.4-10.4 fL Neutrophils (%) (Auto) 75.9 % Lymphocytes (%) (Auto) 8.9 % Monocytes (%) (Auto) 12.1 % Eosinophils (%) (Auto) 1.8 % Basophils (%) (Auto) 0.2 % Neutrophils # (Auto) 7.91 1.4-6.5 K/uL Lymphocytes # (Auto) 0.93 1.2-3.4 K/uL Monocytes # (Auto) 1.26 0.11-0.59 K/uL Eosinophils # (Auto) 0.19 0-0.5 K/uL Basophils # (Auto) 0.02 0-0.2 K/uL RDW Standard Deviation 70.9 36.4-46.3 fL RDW Coefficient of Variation 20.1 11.5-14.5 % Immature Granulocyte % (Auto) 1.1 % Immature Granulocyte # (Auto) 0.11 0.00-0.02 K/uL Nucleated RBC Absolute Count (auto) 0.12 0-0 K/uL Nucleated Red Blood Cells % 1.1 % Red Blood Cell Morphology Unremarkable Prothrombin Time 10.8 9.0-12.0 SECONDS Prothromb Time International Ratio 1.0 0.9-1.1 Activated Partial Thromboplast Time 20.8 21.0-31.0 SECONDS Partial Thromboplastin Ratio 0.8 Sodium Level 139 136-145 mmol/L Potassium Level 4.1 3.5-5.1 mmol/L Chloride Level 94 98-107 mmol/L Carbon Dioxide Level 40 21-32 mmol/L Anion Gap 5.0 3-11 mmol/L Blood Urea Nitrogen 55 7-18 mg/dl Creatinine 2.10 0.60-1.20 mg/dl Est Creatinine Clear Calc Drug Dose 42.1 ml/min Estimated GFR () 28.5 Estimated GFR (Non- 24.6 BUN/Creatinine Ratio 26.3 10-20 Random Glucose 115 70-99 mg/dl Calcium Level 9.8 8.5-10.1 mg/dl Total Bilirubin 0.3 0.2-1 mg/dl Aspartate Amino Transf (AST/SGOT) 15 15-37 U/L Alanine Aminotransferase (ALT/SGPT) 34 12-78 U/L Alkaline Phosphatase 70 45-117 U/L Total Creatine Kinase 53 26-192 U/L Creatine Kinase MB 2.4 0.5-3.6 ng/ml Creatine Kinase MB Ratio 4.5 0-3.0 Troponin I < 0.015 0-0.045 ng/ml Pro-B-Type Natriuretic Peptide 199 0-900 pg/ml Total Protein 8.9 6.4-8.2 gm/dl Albumin 3.0 3.4-5.0 gm/dl Globulin 5.9 2.5-4.0 gm/dl Albumin/Globulin Ratio 0.5 0.9-2 Arterial Blood pH 7.41 7.35-7.45 Arterial Blood Partial Pressure CO2 62 35-46 mmHg Arterial Blood Partial Pressure O2 80 80-95 mm/Hg Arterial Blood HCO3 39 19-24 mmol/L Arterial Blood Oxygen Saturation 93.9 90-95 % Arterial Blood Base Excess 11.8 -9-1.8 mEq/L Arterial Blood Gas Delivery 4 L Oleg Test POS POS Diagnostic Radiology CHEST ONE VIEW PORTABLE CLINICAL HISTORY: Shortness of breath, edema. COMPARISON STUDY: 08/20/2015 FINDINGS: The right-sided PICC catheter has been removed. Heart is enlarged. Evaluation is difficult due to the patient's large body habitus. There is suspected asymmetric pulmonary vascular congestion. There is right basilar atelectasis/consolidation. Bibasilar atelectatic changes are also evident.[ Radiographic follow-up is recommended. IMPRESSION: 1. Difficult study to interpret due to the patient's large body habitus and portable nature of the examination 2. Suspected mild asymmetric pulmonary vascular congestion 3. Right medial basilar atelectasis/consolidation 4. Bibasilar atelectasis EKG Normal Sinus rhythm, no significant change from previous Normal EKG Impression Assessment and Plan 60 yo F p/w Acute on Chronic Resp. Failure in setting of OHS on Bipap daily, OHS , Class I diastolic failure with gradual increasing LE edema while on Bumax at home Acute on Chronic Resp. Failure -desaturated to 86 % on arrival, Co2 40, placed on 3 and subsequently 4 L O2, improved CXR: difficulty interpreting due to body habitus, suspected mild asymmetric pulmonary vascular congestion, Right medial basilar atelectasis/consolidation, Bibasilar atelectasis -likely secondary to CHF exacerbation although hx of COPD could be possible contributor. Pneumonia considered given findings consistent of consolidation, but unlikely given lack of fever, WCC. -Followup ABG -Restart Daily Bipap -Continue 4L Oxygen Acute on chronic Diastolic CHF - worsening Bilateral 2+ LE Edema Last Echo 07/2015 : Hyperdynamic LV Systolic dysfucntion,EF > 70% LV Diastolic dysfunction, Mild RV systolic/diastolic dysfunction,mild tricuspid regurg. - Etiology of exacerbation - ? noncompliance. - Diurese with IV Bumex 2mg BID (on 3mgs bumex orally). - I and Os. Daily weights - Monitor renal function and electrolytes OHS(?copd) - on BIPAP daily, 3 L Oxygen - Chronic Co 2 retention, C02 4O - Continue bipap at night. - F/u ABG - PRN Duonebs - On Prednisone 15 mg daily, Advair, Spiriva daily at home. Check for last PFT results. Diabetes Mellitus Type II -Continue to Monitor PRP - Glycemic Consult Chronic LE Cellulitis - Bilateral LE cellulitis - followed by Infectious Disease - Continue home dose Doxycycline, Augmentin CKD - Cr 2.1 ( within baseline range 1.3- 2.8) - Continue to follow PRP - Consult Nephrology Hypertension - Continue home dose Toprol, Verapamil, Hyperlipidemia - Continue home dose Lipitor 40 mg daily DVT Prophylaxis - Heparin 5000 q8 Resuscitation -DNR Level of Care Telemetry Resuscitation Status DO NOT RESUSCITATE VTE Prophylaxis VTE Risk Assessment Done? Y/N: Yes Risk Level: Low Given or contraindicated: Unfractionated heparin SQ Resident Tracking Resident Involvement: Resident Care Provided Care Provided: Adult Hospital Medicine Reviewed: Pt Seen/Exam by Me History 60 y/o F with h/o chronic respiratory failure here with worsening leg swelling and not feeling well has multiple admission in the past for same received one dose of diuretic in ED Constitutional: denies: fever Respiratory: negative: short of breath Cardiovascular: denies chest pain General Appearance: no apparent distress Respiratory: no respiratory distress (sitting in chair with O2 NC), decreased breath sounds Cardiovascular: regular rate, rhythm Extremities: other (both legs with chronic venous stasis changes and superimposed cellulitis) 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: alert, oriented x 3 Skin Characteristics: warm/dry Assessment/Plan I have reviewed the medical record and performed a history and physical examination of this patient today. I have discussed the case with Dr. Traylor. The above note reflects my findings, conclusions, and recommendations. Echo showing pul hypertension - likely sec to OHS. Look for last PFT.
[2016-05-05] MEDS: AMOXICILLIN/CLAVULANATE TAB 875 MG TAB PO SCH (17:17)
[2016-05-05] MEDS: BUMETANIDE IV 2 MG in SYRINGE 0 ML IV SCH (17:18)
[2016-05-05] MEDS: SPIRONOLACTONE 25 MG TAB PO SCH (17:18)
[2016-05-05] MEDS: HEPARIN SOD 5000 UNIT/0.5 ML CARP SQ SCH (17:19)
[2016-05-05] MEDS: INSULIN ASPART 100 UNITS/ML VIAL SQ SCH ×2 (17:23→21:23)
[2016-05-05 19:32] VITALS: PULSE 78; O2SAT 96
[2016-05-05 19:54] VITALS: BP 139/67; PULSE 79; TEMP 36.6; O2SAT 95
[2016-05-05] MEDS: TIOTROPIUM BROMIDE 5 PUFF/90 MCG INH INH SCH (20:14)
[2016-05-05] MEDS: DOXYCYCLINE HYCLATE 100 MG CAP PO SCH (20:14)
[2016-05-05] MEDS: FLUTICASONE/SALMETEROL (ADVAIR) 500/50 INH 14 PUFF INH SCH (20:16)
[2016-05-05] MEDS ORDERED: INSULIN ASPART 100 UNITS/ML 3 ML PEN SQ SCH (21:00)
[2016-05-05] MEDS: PREGABALIN 150 MG CAP PO SCH (21:02)
[2016-05-05] MEDS: INSULIN GLARGINE SQ SCH (22:52)
[2016-05-05 23:53] VITALS: BP 145/74; PULSE 78; TEMP 36.8; O2SAT 95
[2016-05-05 23:55] VITALS: PULSE 72; O2SAT 97
[2016-05-06] VITALS (11 sets, daily range): BP systolic 135–183; BP diastolic 70–79; PULSE 72–87; TEMP 36.4–37.1; O2SAT 93–97
[2016-05-06] MEDS: HEPARIN SOD 5000 UNIT/0.5 ML CARP SQ SCH ×4 (00:11→22:00)
[2016-05-06 05:40] LABS: HEMATOCRIT 30.8 % (37-47); MEAN CELL VOLUME 96.9 fL (80-100); MEAN CORPUSCULAR HEMOGLOBIN 30.8 pg (25-34); MEAN CORPUSCULAR HGB CONC 31.8 g/dl (32-36); MEAN PLATELET VOLUME 10.1 fL (7.4-10.4); PLATELET COUNT 193 K/uL (130-400); RED BLOOD COUNT 3.18 M/uL (4.2-5.4); WHITE BLOOD COUNT 8.39 K/uL (4.8-10.8)
[2016-05-06 06:15] LABS: CALCIUM 9.9 mg/dl (8.5-10.1)
[2016-05-06] MEDS: ALBUT/IPRATROP 3MG/0.5MG NEB 3 ML VIAL INH SCH ×4 (07:05→19:44)
[2016-05-06] MEDS: PREGABALIN 150 MG CAP PO SCH ×3 (07:51→20:01)
[2016-05-06] MEDS: VERAPAMIL HCL 240 MG TABCR PO SCH (07:52)
[2016-05-06] MEDS: BUMETANIDE IV 2 MG in SYRINGE 0 ML IV SCH (07:53)
[2016-05-06] MEDS: FLUTICASONE/SALMETEROL (ADVAIR) 500/50 INH 14 PUFF INH SCH ×2 (07:53→19:58)
[2016-05-06] MEDS: TIOTROPIUM BROMIDE 5 PUFF/90 MCG INH INH SCH ×2 (07:53→19:58)
[2016-05-06] MEDS: METOPROLOL SUCC 50MG EXT REL TAB PO SCH (07:54)
[2016-05-06] MEDS: ALLOPURINOL 100 MG TAB PO SCH (07:55)
[2016-05-06] MEDS: AMOXICILLIN/CLAVULANATE TAB 875 MG TAB PO SCH (07:56)
[2016-05-06] MEDS: CEROVITE ADV FORMULA TAB PO SCH (07:56)
[2016-05-06] MEDS: SPIRONOLACTONE 25 MG TAB PO SCH ×2 (07:57→16:53)
[2016-05-06] MEDS: PYRIDOXINE HCL 50 MG TAB PO SCH (07:57)
[2016-05-06] MEDS: ATORVASTATIN 40 MG TAB PO SCH (07:58)
[2016-05-06] MEDS: DOXYCYCLINE HYCLATE 100 MG CAP PO SCH (07:58)
[2016-05-06] MEDS: INSULIN ASPART 100 UNITS/ML VIAL SQ SCH ×4 (08:06→21:59)
[2016-05-06] MEDS: INSULIN GLARGINE SQ SCH ×2 (08:06→21:59)
--- NOTE | 2016-05-06 08:06 | Medical Student: [facility] ---
Med Student Progress Note Date of Service May 06, 2016. Subjective Pt evaluation today including: conversation w/ patient Voiding: no voiding problems Mrs. Gaytan is a 60 year old female with past medical history significant for diastolic CHF, COPD, obesity, CKD stage III, hypertension, type 2 DM who presented to ED one day ago with shortness of breath and edema who is being treated for acute respiratory failure and renal failure. No acute events overnight per RN and telemetry. Patient is in normal sinus rhythm. Patient states she is feeling much better today. She notes shortness of breath is improving. States she used bipap during the night and was able to sleep well. Notes good appetite. She denies improvement in leg, hand, abdominal and facial swelling. Reports she is voiding. Denies fever, chills, chest pain, dyspnea at rest, palpitations, cough, dysuria, urgency. Review of Systems Constitutional: No chills, No fatigue, No fever Respiratory: + shortness of breath, No cough, No dyspnea at rest, No sputum, No wheezing Cardiac: + edema (abdominal, bilateral lower extremities, face, hands), No PND , No chest pain, No orthopnea, No palpitations Abdomen: No constipation, No diarrhea, No nausea, No pain, No vomiting Musculoskeletal: No calf pain Female : No dysuria, No hematuria, No urinary frequency Neurologic: No numbness/tingling Heme: No abnormal bleeding/bruising Endo: No excessive thirst Objective Vital Signs Date Time Temp Pulse Resp B/P Pulse Ox O2 Delivery O2 Flow Rate FiO2 05/06/16 07:05 74 18 97 Nasal Cannula 4.0 05/06/16 04:21 37.1 72 18 147/79 94 BiPAP 05/06/16 04:00 Room Air 05/06/16 00:00 Room Air 05/05/16 23:55 72 97 4.0 05/05/16 23:53 36.8 78 20 145/74 95 Nasal Cannula 4.0 05/05/16 20:00 Room Air 05/05/16 19:54 36.6 79 20 139/67 95 Nasal Cannula 4.0 05/05/16 19:32 78 18 96 Nasal Cannula 4.0 05/05/16 16:10 71 18 97 Nasal Cannula 4.0 05/05/16 15:38 36.6 73 20 176/76 93 Nasal Cannula 4.0 05/05/16 13:49 71 27 138/61 95 Nasal Cannula 4.0 05/05/16 13:49 68 27 141/62 95 05/05/16 13:28 69 26 153/69 94 Nasal Cannula 4.0 05/05/16 12:14 77 05/05/16 12:14 93 Nasal Cannula 4.0 05/05/16 11:50 86 Nasal Cannula 3.0 05/05/16 11:28 36.6 76 28 143/67 93 Nasal Cannula Physical Exam General Appearance: WD/WN, no apparent distress Neck: supple, no adenopathy, no JVD, no carotid bruits Respiratory/Chest: chest non-tender, no respiratory distress, no accessory muscle use, + decreased breath sounds (bilateral lower and mid lung rain), + crackles (bibasilar ) Cardiovascular: regular rate, rhythm, no gallop, no JVD, no murmur, + normal peripheral pulses (lower and upper extremities bilaterally) Abdomen: normal bowel sounds, non tender, + distended Extremities: non-tender, no calf tenderness, + pedal edema (1+) 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: alert, normal mood/affect, oriented x 3 Skin: + pertinent finding (lara facies) Laboratory Results Last 24 Hours Test 05/05/16 11:50 05/05/16 14:45 05/05/16 16:04 05/05/16 16:07 White Blood Count 10.42 K/uL 11.33 K/uL Red Blood Count 3.37 M/uL 3.25 M/uL Hemoglobin 10.3 g/dL 10.1 g/dL Hematocrit 32.5 % 30.7 % Mean Corpuscular Volume 96.4 fL 94.5 fL Mean Corpuscular Hemoglobin 30.6 pg 31.1 pg Mean Corpuscular Hemoglobin Concent 31.7 g/dl 32.9 g/dl Platelet Count 209 K/uL 186 K/uL Mean Platelet Volume 9.9 fL 9.5 fL Neutrophils (%) (Auto) 75.9 % Lymphocytes (%) (Auto) 8.9 % Monocytes (%) (Auto) 12.1 % Eosinophils (%) (Auto) 1.8 % Basophils (%) (Auto) 0.2 % Neutrophils # (Auto) 7.91 K/uL Lymphocytes # (Auto) 0.93 K/uL Monocytes # (Auto) 1.26 K/uL Eosinophils # (Auto) 0.19 K/uL Basophils # (Auto) 0.02 K/uL RDW Standard Deviation 70.9 fL 69.5 fL RDW Coefficient of Variation 20.1 % 20.2 % Immature Granulocyte % (Auto) 1.1 % Immature Granulocyte # (Auto) 0.11 K/uL Nucleated RBC Absolute Count (auto) 0.12 K/uL 0.09 K/uL Nucleated Red Blood Cells % 1.1 % 0.8 % Red Blood Cell Morphology Unremarkable Prothrombin Time 10.8 SECONDS Prothromb Time International Ratio 1.0 Activated Partial Thromboplast Time 20.8 SECONDS Partial Thromboplastin Ratio 0.8 Sodium Level 139 mmol/L 138 mmol/L Potassium Level 4.1 mmol/L 4.6 mmol/L Chloride Level 94 mmol/L 95 mmol/L Carbon Dioxide Level 40 mmol/L 39 mmol/L Anion Gap 5.0 mmol/L 4.0 mmol/L Blood Urea Nitrogen 55 mg/dl 55 mg/dl Creatinine 2.10 mg/dl 2.00 mg/dl Est Creatinine Clear Calc Drug Dose 42.1 ml/min 44.2 ml/min Estimated GFR () 28.5 30.2 Estimated GFR (Non- 24.6 26.1 BUN/Creatinine Ratio 26.3 27.5 Random Glucose 115 mg/dl 135 mg/dl Calcium Level 9.8 mg/dl 10.1 mg/dl Total Bilirubin 0.3 mg/dl Aspartate Amino Transf (AST/SGOT) 15 U/L Alanine Aminotransferase (ALT/SGPT) 34 U/L Alkaline Phosphatase 70 U/L Total Creatine Kinase 53 U/L Creatine Kinase MB 2.4 ng/ml Creatine Kinase MB Ratio 4.5 Troponin I < 0.015 ng/ml Pro-B-Type Natriuretic Peptide 199 pg/ml Total Protein 8.9 gm/dl Albumin 3.0 gm/dl Globulin 5.9 gm/dl Albumin/Globulin Ratio 0.5 Arterial Blood pH 7.41 Arterial Blood Partial Pressure CO2 62 mmHg Arterial Blood Partial Pressure O2 80 mm/Hg Arterial Blood HCO3 39 mmol/L Arterial Blood Oxygen Saturation 93.9 % Arterial Blood Base Excess 11.8 mEq/L Arterial Blood Gas Delivery 4 L Oleg Test POS Bedside Glucose 139 mg/dl Hepatitis C Antibody Screen NEG Test 05/05/16 20:20 05/06/16 05:17 05/06/16 07:06 05/06/16 07:27 Bedside Glucose 184 mg/dl 155 mg/dl White Blood Count 8.39 K/uL Red Blood Count 3.18 M/uL Hemoglobin 9.8 g/dL Hematocrit 30.8 % Mean Corpuscular Volume 96.9 fL Mean Corpuscular Hemoglobin 30.8 pg Mean Corpuscular Hemoglobin Concent 31.8 g/dl RDW Standard Deviation 71.3 fL RDW Coefficient of Variation 20.3 % Platelet Count 193 K/uL Mean Platelet Volume 10.1 fL Nucleated RBC Absolute Count (auto) 0.10 K/uL Nucleated Red Blood Cells % 1.2 % Sodium Level 138 mmol/L Potassium Level 4.0 mmol/L Chloride Level 95 mmol/L Carbon Dioxide Level 34 mmol/L Anion Gap 9.0 mmol/L Blood Urea Nitrogen 56 mg/dl Creatinine 2.00 mg/dl Est Creatinine Clear Calc Drug Dose 44.2 ml/min Estimated GFR () 30.2 Estimated GFR (Non- 26.1 BUN/Creatinine Ratio 28.0 Random Glucose 138 mg/dl Calcium Level 9.9 mg/dl Medications Current Inpatient Medications Medications (Trade) Dose Ordered Sig/Duyen Route Start Time Stop Time Status Last Admin Dose Admin Heparin Sodium (Porcine) (Heparin Sq 5000 Unit/0.5ml) 5,000 unit Q8@0000,0800,1600 SQ 05/05/16 16:00 06/04/16 15:59 05/06/16 00:11 5,000 UNIT Acetaminophen (Tylenol Tab) 650 mg Q4H PRN PO 05/05/16 14:00 06/04/16 13:59 Al Hydrox/Mg Hydrox/Simethicone (Maalox Max Susp) 15 ml Q4H PRN PO 05/05/16 14:00 06/04/16 13:59 Magnesium Hydroxide (Milk Of Magnesia Susp) 30 ml Q12H PRN PO 05/05/16 14:00 06/04/16 13:59 Ondansetron HCl (Zofran Inj) 4 mg Q6H PRN IV 05/05/16 14:00 06/04/16 13:59 Polyethylene (Miralax Powder Packet) 17 gm DAILY PRN PO 05/05/16 14:00 06/04/16 13:59 Albuterol/ Ipratropium (Duoneb) 3 ml QIDR INH 05/05/16 16:00 06/04/16 15:59 05/06/16 07:05 3 ML Miscellaneous Information (Consult Glycemic Management Pharmacy) 1 ea UD PRN N/A 05/05/16 15:48 06/04/16 15:47 Allopurinol (Zyloprim Tab) 100 mg DAILY PO 05/06/16 09:00 06/05/16 08:59 Atorvastatin Calcium (Lipitor Tab) 40 mg DAILY PO 05/06/16 09:00 06/05/16 08:59 Metoprolol Succinate (Toprol Xl Tab) 150 mg DAILY PO 05/06/16 09:00 06/05/16 08:59 Pregabalin (Lyrica Cap) 150 mg TID PO 05/05/16 21:00 06/04/16 20:59 05/05/16 21:02 150 MG Pyridoxine HCl (Vitamin B-6 Tab) 200 mg DAILY PO 05/06/16 09:00 06/05/16 08:59 Spironolactone (Aldactone Tab) 50 mg BID17 PO 05/05/16 17:00 06/04/16 16:59 05/05/16 17:18 50 MG Verapamil HCl (Calan-Sr Tab) 240 mg DAILY PO 05/06/16 09:00 06/05/16 08:59 Amoxicillin/ Clavulanate Potassium (Augmentin Tab) 875 mg BIDM PO 05/05/16 16:45 05/15/16 16:44 05/05/16 17:17 875 MG Doxycycline Hyclate (Vibramycin Cap) 100 mg BID PO 05/05/16 21:00 05/15/16 20:59 05/05/16 20:14 100 MG Salmeterol Xinafoate/ Fluticasone (Advair Diskus 500/50 Inh) 1 puff BID INH 05/05/16 21:00 06/04/16 20:59 05/05/16 20:16 1 PUFF Insulin Aspart (novoLOG ASPART) SLIDING SCALE ACHS SQ 05/05/16 16:15 06/04/16 16:14 05/05/16 21:23 7 UNITS Multivitamins/ Minerals (Multivitamin W/ Minerals Tab) 1 tab DAILY PO 05/06/16 09:00 06/05/16 08:59 Prednisone (PredniSONE TAB) 15 mg QAM PO 05/06/16 09:00 06/05/16 08:59 Tiotropium [place] (Spiriva Handihaler Inhaler) 1 puff BID INH 05/05/16 21:00 06/04/16 20:59 05/05/16 20:14 1 PUFF Insulin Glargine SEE PROTOCOL BID SQ 05/05/16 21:00 06/04/16 20:59 05/05/16 22:52 70 UNIT Bumetanide/Syringe (Bumex IV/ Syringe) 8 ml @ 4 mls/min BID17 IV 05/05/16 17:00 06/04/16 16:59 05/05/16 17:18 4 MLS/MIN Assessment and Plan Assessment and Plan: Mrs. Gaytan is a 60 year old female with past medical history significant for diastolic CHF, COPD, obesity, CKD stage III, hypertension, type 2 DM who is being treated for acute respiratory failure and renal failure. 1. Acute Respiratory Failure - Failure is likely due to acute exacerbation of diastolic CHF with fluid overload. Last ECHO in 07/2015 revealed Class I Diastolic dysfunction. Patient has had three similar episodes in past that have resolved with diuretic treatment. Patient is edematous is bilateral legs and abdomen, suggestive of fluid overload. Chest Xray revealed mild pulmonary congestion, also suggestive of fluid overload. Chest xray ruled out possibility of PE, pneumothorax, pneumonia as other potential causes of shortness of breath. EKG revealed normal sinus rhythm, ruling out possibility of new onset afib or other arrhythmias as well as AL as cause of exacerbation and SOB. Troponin levels were normal on lab work making AL less likely as well. Patient has history of COPD. Shortness of breath makes an acute exacerbation a possibility. However patient denied increase or presence cough and sputum production, which are typical of COPD exacerbation though not necessary, making this less likely than CHF exacerbation but still a possibility. Trigger of exacerbation unclear. Patient denied recent illness. Diet change, noncompliance , or inadequate medication dosing are still possibility. Oxygen saturation was 97% this morning on 4 L oxygen. Should be cautious of high O2 saturation so not to diminish respiratory drive secondary to COPD and chronic hypercapnia. -Consider weaning 4L to 3L oxygen via nasal canula -Continue to follow oxygen saturation -Conitnue to follow ABG levels -Continue DuoNebs PRN. -Continue bipap use at night 2. Acute on Chronic Diastolic CHF - Last ECHO (07/15) revealed class I diastolic dysfunction. Acute exacerbation and fluid overload most likely due to salt consumption or missing doses of medications or inadequate medication dosing. Leg and abdomen edema as well as bibasilar crackles on exam are suggestive of fluid overload. Chest xray also revealed pulmonary congestion. Potassium level today decreased from 4.6 to 4.0. - Continue IV Bumex daily - Continue spironolactone 150 mg BID, Verapamil 240 mg daily, and Toprol XL 150 mg daily - Monitor input and output levels - Order daily weights - Continue to have recliner for patient to sleep - Continue salt restriction diet and fluid restriction - If patient's symptoms do not improve within a day or two consider repeat echo - Continue to follow electrolytes, renal function - Consider Potassium supplement if patient becomes hypokalemic 3. Chronic COPD - May be contributing to shortness of breath. On exam patient has decreased lung sounds b/l lower and mid lung rain. Patient denies cough/ sputum production. Does not explain patient's fluid overload status. Patient has history of co2 retention. Bicarbonate decreased from 39 to 34 today. Oxygen saturation today 97% on 4 L. - Continue oxygen via nasal canula, wean to 3 L - Continue to use bipap at night - Continue prednisone 15 mg daily - Continue nebulizers PRN - Continue Advair and Spiriva inhalers - Continue to monitor ABG and bicarbonate levels - Monitor oxygen saturation. Aim for saturation in low 90s. 4. Chronic Kidney Disease, Stage III - Creatinine level decreased from 2.1 to 2.0. Patient's baseline is low 1s. Increase likely due to fluid overload status due to likely CHF exacerbation rather than direct kidney source. - Continue to monitor creatinine levels - Consult Nephrology - Avoid nephrotoxic drugs - Renally dose all medications 5. Bilateral Lower Extremity Cellulitis - On exam patient has signs of continued cellulitis infection. Patient is currently undergoing antibiotic treatment. She is followed by Gabriella Tong, Infectious Disease. Cellulitis appears stable, not worsening. No increase in pain, erythema, fever. - Continue doxycycline 100 mg BID and Augmentin 875 mg BID daily - Consult Infectious disease if symptoms worsen such as fever and pain 6. Mixed metabolic alkalosis/respiratory acidosis - ABG yesterday revealed pH of 7.41, pCO2 of 62, pO2 80, and HCO3 39. Metabolic alkalosis likely due to diuresis. Respiratory acidosis likely due to chronic carbon dioxide retention. - Continue to monitor ABG levels - Continue oxygen and bipap at night 7. Obesity - Likely contributing to co2 retention. Bicarbonate level decreased from 39 to 34. Patient is currently seeing weight management for weight loss. - Continue BIPAP at night - Hold Belviq for now until patient stabilizes - Follow ABG and bicarbonate levels 8. Hypertension - Patient's blood pressure has decreased from yesterday to 147/ 79. Increase was likely due to shortness of breath and anxiety. Blood pressure is still mildly elevated, it is possible blood pressure is not well controlled on current medications. - Continue to monitor blood pressure every 4 hours - Continue Bumex IV , Verapamil 240 mg daily, Toprol XL 150 mg daily, and Spironolactone 150 mg BID 9. Type 2 Diabetes - Patient's blood sugar was high at 184 this morning. Most recent hemoglobin A1C was 6.1. Goal blood sugar should be between 110-150. - Continue NovoLog and Lantus - Continue to monitor blood sugars 10. Dyslipidemia - Current lipid levels unknown. Last available level from 2014 revealed triglycerides at 247, HDL at 36, and LDL at 73. - Continue Lipitor 40 mg daily - Encourage follow up with PCP upon discharge to address triglycerides 11. DVT Prophylaxis - Patient was not on anticoagulants upon admission and does not have a history of bleeding problems. Patient has renal disease so would not consider low molecular weight heparin for anticoagulation. Today PTT was 20.8 seconds. - Start Heparin 5000 Units subcutaneous TID - Monitor platelet levels for signs of heparin induced thrombocytopenia 12. Disposition - Continue to monitor patient at this time. Plan for discharge home under care of once stable.
[2016-05-06] MEDS ORDERED: BUMETANIDE SOLN 1 MG/4 ML VIAL IV ONE (09:15)
[2016-05-06] MEDS ORDERED: BUMETANIDE IV 1 MG in SYRINGE 0 ML IV ONE (09:15)
[2016-05-06 10:17] LABS: ARTERIAL BLD GAS O2 SATURATION 92.5 % (90-95); ARTERIAL BLOOD GAS BASE EXCESS 13.1 mEq/L (-9-1.8); ARTERIAL BLOOD GAS HCO3 40 mmol/L (19-24); ARTERIAL BLOOD GAS PO2 75 mm/Hg (80-95); ARTERIAL BLOOD GAS pH 7.41 (7.35-7.45)
--- NOTE | 2016-05-06 10:22 | Family Medicine Progress Note ---
Progress Note Date of Service May 06, 2016. Subjective Pt evaluation today including: conversation w/ patient, chart review, lab review, review of studies, conversation w/ center consultant Pain: 0/10 PO Intake: WNL Voiding: no voiding problems States that she is feeling much better however worried to walk because of SOB She also notes she does not feel that the swelling has really improved at all Constitutional: No fever Eyes: No worsening of vision Respiratory: + dyspnea on exertion, + shortness of breath, No cough, No sputum, No wheezing Cardiovascular: No chest pain Abdomen: No constipation, No diarrhea, No nausea, No pain, No vomiting Musculoskeletal: + swelling (bilat extremities, a bit worse than BL), No joint pain, No muscle pain Female : No dysuria Neurologic: + weakness, No balance problems Endo: + fatigue Skin: + problem reported (BL: cellulitis bilat extremities) Medications Medications Administered Medications (Trade) Dose Ordered Sig/Duyen Route Start Time Stop Time Status Last Admin Dose Admin Albuterol/ Ipratropium (Duoneb) 3 ml NOW STAT INH 05/05/16 12:02 05/05/16 12:04 DC 05/05/16 12:07 3 ML Furosemide (Lasix Inj) 40 mg NOW STAT IV 05/05/16 12:02 05/05/16 12:04 DC 05/05/16 12:07 40 MG Heparin Sodium (Porcine) (Heparin Sq 5000 Unit/0.5ml) 5,000 unit Q8@0000,0800,1600 SQ 05/05/16 16:00 06/04/16 15:59 05/06/16 08:07 5,000 UNIT Albuterol/ Ipratropium (Duoneb) 3 ml QIDR INH 05/05/16 16:00 06/04/16 15:59 05/06/16 07:05 3 ML Allopurinol (Zyloprim Tab) 100 mg DAILY PO 05/06/16 09:00 06/05/16 08:59 05/06/16 07:55 100 MG Atorvastatin Calcium (Lipitor Tab) 40 mg DAILY PO 05/06/16 09:00 06/05/16 08:59 05/06/16 07:58 40 MG Metoprolol Succinate (Toprol Xl Tab) 150 mg DAILY PO 05/06/16 09:00 06/05/16 08:59 05/06/16 07:54 150 MG Pregabalin (Lyrica Cap) 150 mg TID PO 05/05/16 21:00 06/04/16 20:59 05/06/16 07:51 150 MG Pyridoxine HCl (Vitamin B-6 Tab) 200 mg DAILY PO 05/06/16 09:00 06/05/16 08:59 05/06/16 07:57 200 MG Spironolactone (Aldactone Tab) 50 mg BID17 PO 05/05/16 17:00 06/04/16 16:59 05/06/16 07:57 50 MG Verapamil HCl (Calan-Sr Tab) 240 mg DAILY PO 05/06/16 09:00 06/05/16 08:59 05/06/16 07:52 240 MG Amoxicillin/ Clavulanate Potassium (Augmentin Tab) 875 mg BIDM PO 05/05/16 16:45 05/15/16 16:44 05/06/16 07:56 875 MG Doxycycline Hyclate (Vibramycin Cap) 100 mg BID PO 05/05/16 21:00 05/15/16 20:59 05/06/16 07:58 100 MG Salmeterol Xinafoate/ Fluticasone (Advair Diskus 500/50 Inh) 1 puff BID INH 05/05/16 21:00 06/04/16 20:59 05/06/16 07:53 1 PUFF Insulin Aspart (novoLOG ASPART) SLIDING SCALE ACHS SQ 05/05/16 16:15 06/04/16 16:14 05/06/16 08:06 40 UNITS Multivitamins/ Minerals (Multivitamin W/ Minerals Tab) 1 tab DAILY PO 05/06/16 09:00 06/05/16 08:59 05/06/16 07:56 1 TAB Prednisone (PredniSONE TAB) 15 mg QAM PO 05/06/16 09:00 06/05/16 08:59 05/06/16 07:55 15 MG Tiotropium [place] (Spiriva Handihaler Inhaler) 1 puff BID INH 05/05/16 21:00 06/04/16 20:59 05/06/16 07:53 1 PUFF Insulin Glargine SEE PROTOCOL BID SQ 05/05/16 21:00 06/04/16 20:59 05/06/16 08:06 60 UNIT Bumetanide 2 mg/ Syringe 8 ml @ 4 mls/min BID17 IV 05/05/16 17:00 05/06/16 09:03 DC 05/06/16 07:53 4 MLS/MIN Bumetanide/Syringe (Bumex IV/ Syringe) 4 ml @ 4 mls/min NOW ONCE IV 05/06/16 09:15 05/06/16 09:16 DC 05/06/16 09:37 4 MLS/MIN Objective Vital Signs Date Time Temp Pulse Resp B/P Pulse Ox O2 Delivery O2 Flow Rate FiO2 05/06/16 08:04 36.4 78 22 183/79 94 Nasal Cannula 3.0 Humidified Air 05/06/16 08:00 Nasal Cannula 3.0 05/06/16 07:05 74 18 97 Nasal Cannula 4.0 05/06/16 04:21 37.1 72 18 147/79 94 BiPAP 05/06/16 04:00 Room Air 05/06/16 00:00 Room Air 05/05/16 23:55 72 97 4.0 05/05/16 23:53 36.8 78 20 145/74 95 Nasal Cannula 4.0 05/05/16 20:00 Room Air 05/05/16 19:54 36.6 79 20 139/67 95 Nasal Cannula 4.0 05/05/16 19:32 78 18 96 Nasal Cannula 4.0 05/05/16 16:10 71 18 97 Nasal Cannula 4.0 05/05/16 15:38 36.6 73 20 176/76 93 Nasal Cannula 4.0 05/05/16 13:49 71 27 138/61 95 Nasal Cannula 4.0 05/05/16 13:49 68 27 141/62 95 05/05/16 13:28 69 26 153/69 94 Nasal Cannula 4.0 05/05/16 12:14 77 05/05/16 12:14 93 Nasal Cannula 4.0 05/05/16 11:50 86 Nasal Cannula 3.0 05/05/16 11:28 36.6 76 28 143/67 93 Nasal Cannula Physical Exam General Appearance: WD/WN, + mild distress, + obese Eyes: normal inspection ENT: normal ENT inspection Neck: supple Respiratory/Chest: lungs clear, normal breath sounds, no respiratory distress, no accessory muscle use Cardiovascular: regular rate, rhythm, no murmur, + extra beats (decreased to bilat bases) Abdomen: normal bowel sounds, non tender, soft, + distended (mild) Extremities: + swelling, + pertinent finding (bilat cellulitis, tight edema) 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: alert, normal mood/affect, oriented x 3 Skin: normal color, warm/dry Lymphatic: no adenopathy Laboratory Results Results Past 24 Hours Test 05/05/16 11:50 05/05/16 14:45 05/05/16 16:04 05/05/16 16:07 Range/Units White Blood Count 10.42 11.33 4.8-10.8 K/uL Red Blood Count 3.37 3.25 4.2-5.4 M/uL Hemoglobin 10.3 10.1 12.0-16.0 g/dL Hematocrit 32.5 30.7 37-47 % Mean Corpuscular Volume 96.4 94.5 80-100 fL Mean Corpuscular Hemoglobin 30.6 31.1 25-34 pg Mean Corpuscular Hemoglobin Concent 31.7 32.9 32-36 g/dl Platelet Count 209 186 130-400 K/uL Mean Platelet Volume 9.9 9.5 7.4-10.4 fL Neutrophils (%) (Auto) 75.9 % Lymphocytes (%) (Auto) 8.9 % Monocytes (%) (Auto) 12.1 % Eosinophils (%) (Auto) 1.8 % Basophils (%) (Auto) 0.2 % Neutrophils # (Auto) 7.91 1.4-6.5 K/uL Lymphocytes # (Auto) 0.93 1.2-3.4 K/uL Monocytes # (Auto) 1.26 0.11-0.59 K/uL Eosinophils # (Auto) 0.19 0-0.5 K/uL Basophils # (Auto) 0.02 0-0.2 K/uL RDW Standard Deviation 70.9 69.5 36.4-46.3 fL RDW Coefficient of Variation 20.1 20.2 11.5-14.5 % Immature Granulocyte % (Auto) 1.1 % Immature Granulocyte # (Auto) 0.11 0.00-0.02 K/uL Nucleated RBC Absolute Count (auto) 0.12 0.09 0-0 K/uL Nucleated Red Blood Cells % 1.1 0.8 % Red Blood Cell Morphology Unremarkable Prothrombin Time 10.8 9.0-12.0 SECONDS Prothromb Time International Ratio 1.0 0.9-1.1 Activated Partial Thromboplast Time 20.8 21.0-31.0 SECONDS Partial Thromboplastin Ratio 0.8 Sodium Level 139 138 136-145 mmol/L Potassium Level 4.1 4.6 3.5-5.1 mmol/L Chloride Level 94 95 98-107 mmol/L Carbon Dioxide Level 40 39 21-32 mmol/L Anion Gap 5.0 4.0 3-11 mmol/L Blood Urea Nitrogen 55 55 7-18 mg/dl Creatinine 2.10 2.00 0.60-1.20 mg/dl Est Creatinine Clear Calc Drug Dose 42.1 44.2 ml/min Estimated GFR () 28.5 30.2 Estimated GFR (Non- 24.6 26.1 BUN/Creatinine Ratio 26.3 27.5 10-20 Random Glucose 115 135 70-99 mg/dl Calcium Level 9.8 10.1 8.5-10.1 mg/dl Total Bilirubin 0.3 0.2-1 mg/dl Aspartate Amino Transf (AST/SGOT) 15 15-37 U/L Alanine Aminotransferase (ALT/SGPT) 34 12-78 U/L Alkaline Phosphatase 70 45-117 U/L Total Creatine Kinase 53 26-192 U/L Creatine Kinase MB 2.4 0.5-3.6 ng/ml Creatine Kinase MB Ratio 4.5 0-3.0 Troponin I < 0.015 0-0.045 ng/ml Pro-B-Type Natriuretic Peptide 199 0-900 pg/ml Total Protein 8.9 6.4-8.2 gm/dl Albumin 3.0 3.4-5.0 gm/dl Globulin 5.9 2.5-4.0 gm/dl Albumin/Globulin Ratio 0.5 0.9-2 Arterial Blood pH 7.41 7.35-7.45 Arterial Blood Partial Pressure CO2 62 35-46 mmHg Arterial Blood Partial Pressure O2 80 80-95 mm/Hg Arterial Blood HCO3 39 19-24 mmol/L Arterial Blood Oxygen Saturation 93.9 90-95 % Arterial Blood Base Excess 11.8 -9-1.8 mEq/L Arterial Blood Gas Delivery 4 L Oleg Test POS POS Bedside Glucose 139 70-90 mg/dl Hepatitis C Antibody Screen NEG NEG Test 05/05/16 20:20 05/06/16 05:17 05/06/16 07:27 05/06/16 08:47 Range/Units Bedside Glucose 184 155 70-90 mg/dl White Blood Count 8.39 4.8-10.8 K/uL Red Blood Count 3.18 4.2-5.4 M/uL Hemoglobin 9.8 12.0-16.0 g/dL Hematocrit 30.8 37-47 % Mean Corpuscular Volume 96.9 80-100 fL Mean Corpuscular Hemoglobin 30.8 25-34 pg Mean Corpuscular Hemoglobin Concent 31.8 32-36 g/dl RDW Standard Deviation 71.3 36.4-46.3 fL RDW Coefficient of Variation 20.3 11.5-14.5 % Platelet Count 193 130-400 K/uL Mean Platelet Volume 10.1 7.4-10.4 fL Nucleated RBC Absolute Count (auto) 0.10 0-0 K/uL Nucleated Red Blood Cells % 1.2 % Sodium Level 138 136-145 mmol/L Potassium Level 4.0 3.5-5.1 mmol/L Chloride Level 95 98-107 mmol/L Carbon Dioxide Level 34 21-32 mmol/L Anion Gap 9.0 3-11 mmol/L Blood Urea Nitrogen 56 7-18 mg/dl Creatinine 2.00 0.60-1.20 mg/dl Est Creatinine Clear Calc Drug Dose 44.2 ml/min Estimated GFR () 30.2 Estimated GFR (Non- 26.1 BUN/Creatinine Ratio 28.0 10-20 Random Glucose 138 70-99 mg/dl Calcium Level 9.9 8.5-10.1 mg/dl Procalcitonin 0.13 0-0.5 ng/mL Test 05/06/16 10:05 Range/Units Assessment and Plan 60 yo F p/w Acute on Chronic Resp. Failure in setting of Hx of COPD on Bipap daily, Obesity Class I diastolic failure with gradual increasing LE edema while on Bumex at home. She has had improvement in her symptoms overnight however states still has cellulitis Acute on Chronic Hypoxemic Resp. Failure- improving - currently 96% on 3 L which is her home rx - ABG follow up pending - Bipap overnight Acute on Chronic Diastolic CHF Cor pulmonale Pulmonary hypertension - Last Echo 07/2015 : Hyperdynamic LV Systolic dysfunction,EF > 70% LV Diastolic dysfunction, Mild RV systolic/diastolic dysfunction,mild tricuspid regurg. Moderate pul HTN - will hold off repeat for now - increase Bumex to home dose 3 mg bid IV - elevate legs throughout the day - I and O - Daily weights - Follow renal function and electrolytes Obesity Hypoventilation syndrome resulting in cor pulmonale - continue bipap. - on belviq at home for weight loss - held here Acute on chronic COPD exacerbation - PFT 2012 reflective of mod obs pattern ( emphysema) - PRN Duonebs - continue advair and spiriva - prednisone 15 mg daily- home dose - on prednisone chronically and as per Dr Chávez notes has been hesitant to agree to start a wean Diabetes Mellitus Type II -Continue to Monitor PRP - Glycemic Consult Chronic LE Cellulitis- stable - followed by Infectious Disease in the outpt - Restart home dose Doxycycline, Augmentin - will arrange for close ID outpt follow up CKD - Cr 2.0 ( within baseline range 1.3- 2.8) - Continue to follow PRP -Nephrology consulted- appreciate input Hypertension - Continue home dose Toprol, Verapamil, Hyperlipidemia - Continue home dose Lipitor 40 mg daily DVT Prophylaxis - Heparin 5000 q8 Resuscitation -DNR Dispo: PT/OT Continued [facility] stay due to: other Discharge planning: uncertain Reviewed: Pt Seen/Exam by Me History leg swelling unchanged Constitutional: denies: fever Respiratory: negative: short of breath Cardiovascular: reports edema, denies chest pain Gastrointestinal/Abdominal: negative: abdominal pain General Appearance: other (sitting propped due to inability to lay flat) Respiratory: no respiratory distress, decreased breath sounds Cardiovascular: regular rate, rhythm Extremities: other (both legs with chronic venous stasis changes and overlying erythema. ) 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: alert, oriented x 3 Skin Characteristics: warm/dry Assessment/Plan I have reviewed the medical record and performed a history and physical examination of this patient today. I have discussed the case with Dr Rodrigues. The above note reflects my findings, conclusions, and recommendations.
[2016-05-06 10:26] LABS: ALLEN TEST POSITIVE (POS); O2 ADMINISTRATION 3L
--- NOTE | 2016-05-06 12:33 | Medical Consult ---
Consultation Date of Consultation: May 06, 2016. Attending Physician: Dejah Bañuelos M.D. Reason for Consultation: B/L LE Edema History of Present Illness Patient is a 60-year-old morbidly obese female who presents the emergency department with complaints of increasing shortness of breath. The patient is well known to the Infectious diseases service and myself from previous admission and outpatient follow-up. The patient has chronic bilateral lower extremity edema and cellulitis for which she is chronically treated at this time with p.o. doxycycline and Augmentin. She has been doing very well on this regimen until recently. She has started to have increased swelling of the bilateral lower extremities, which has increased the erythema and warmth of her bilateral lower extremities as well. The patient chronically is on diuretics at home as well. Since admission, the patient was noted to have a white blood cell count of 10.42. Her creatinine on admission was 2.10, and has been stable at 2.00. She had a chest x-ray completed which showed mild pulmonary vascular congestion, right medial basilar atelectasis/consolidation, and bibasilar atelectasis. I did also discuss this patient with Dr. Bañuelos. Patient states that she has been having increased shortness breath especially with even minimal exertion. She has noted increasing swelling in her bilateral lower extremities. Past Medical/Surgical History Medical Problems: (1) Anasarca Status: Acute (2) Bilateral cellulitis of lower leg Status: Acute (3) Bilateral lower leg cellulitis Status: Acute (4) Change in mental status Status: Acute (5) Chronic renal failure Status: Acute (6) CO2 retention Status: Acute (7) Dyspnea on exertion Status: Acute (8) Fever Status: Acute (9) Fever Status: Acute (10) Hypoxemia Status: Acute (11) Hypoxia Status: Acute (12) Respiratory failure Status: Acute (13) Wrist pain Status: Acute Medical Problems: (1) Acute kidney injury (2) Acute on chronic diastolic (congestive) heart failure (3) Acute respiratory failure with hypoxia and hypercapnia (4) Anemia (5) Cellulitis Of Leg (6) Cervical Disc Degen (7) CHF (congestive heart failure) (8) Chronic kidney disease (CKD) stage G3b/A1, moderately decreased glomerular filtration rate (GFR) between 30-44 mL/min/1.73 square meter and albuminuria creatinine ratio less than 30 mg/g (9) COPD (chronic obstructive pulmonary disease) (10) Cystitis (11) Diab Mariama Wo Compl, Type Ii Or Unspec Type, Uncontrolled (12) Diabetes (13) Edema (14) Hyponatremia (15) Metabolic alkalosis with respiratory acidosis (16) Obesity hypoventilation syndrome (17) Ovarian Cyst Nec/Nos (18) Pulmonary Collapse (19) Sciatica Family History Cancer Diabetes mellitus Gallbladder disease Heart disease Lung disease Noncontributory. Social History Smoking Status: Former Smoker Smokeless Tobacco Use: No Alcohol Use: none Drug Use: none Marital Status: Housing Status: lives with family Occupation Status: unemployed Allergies Coded Allergies: Daptomycin (Verified Allergy, Mild, HIVES, 02/25/16) itching Codeine (Verified Allergy, Unknown, unknown, 02/25/16) has tolerated morphine Iodine (Verified Allergy, Unknown, 02/25/16) Shellfish (Verified Allergy, Unknown, 02/25/16) Sulfamethoxazole w/Trimethoprim (Verified Allergy, Unknown, RASH, 02/25/16 ) Home Medications Reported Home Medications Medications Dose Route/Sig Max Daily Dose Days Date Category Dose Instructions Vitamin E 400 Unit Tab 800 Units PO DAILY 05/05/16 Reported Vitamin D3 (Cholecalciferol) 1,000 Unit Tab 1,000 Units PO DAILY 90 05/05/16 Reported Aldactone (Spironolactone) 50 Mg Tab 50 Mg PO BID 05/05/16 Reported Spiriva Handihaler (Tiotropium [place]) 30 Puff/540 Mcg Aerp 1 Cap INH BID 05/05/16 Reported One Daily For Women (Multiple Vitamins W/ Minerals) 1 Tab Tab 1 Tab PO DAILY 05/05/16 Reported Duoneb (Ipratropium-Albuterol) 3 Ml Nebu 1 Treatment INH Q6H PRN 05/05/16 Reported [place] 5MG/325MG (Acetaminophen/Hydrocodone Bitart) Tab 1-2 Tablet PO Q4H PRN 05/05/16 Reported PRN PAIN Lipitor (Atorvastatin Calcium) 40 Mg Tab 40 Mg PO DAILY 05/05/16 Reported Advair Diskus 500/50 60 Dose (Fluticasone Prop/Salmeterol) 1 Ea Aerp 1 Puff INH BID 05/05/16 Reported Belviq (Lorcaserin Hcl) 10 Mg Tab 10 Mg PO BID 02/25/16 Reported Augmentin 875-125 mg (Amoxicillin & Pot Clavulanate) 1 Tab Tab 1 Tab PO BID 02/25/16 Reported Prednisone 10 Mg Tab 15 Mg PO QAM 02/25/16 Reported Vibramycin (Doxycycline Hyclate) 100 Mg Cap 100 Mg PO BID 02/25/16 Reported Toujeo Solostar (Insulin Glargine) 300 Unit/Ml Inj 70 Unit SQ TID 02/25/16 Reported Novolog Flexpen (Insulin Aspart) 100 Units/Ml Inj 40 Units SQ HS 02/25/16 Reported Bumetanide 1 Mg Tab 3 Mg PO BID17 30 08/24/15 Rx Lyrica (Pregabalin) 150 Mg Cap 150 Mg PO TID 08/17/15 Reported Verapamil HCl ER (Verapamil HCl) 240 Mg Tabcr 240 Mg PO DAILY 11/02/14 Reported Toprol-Xl (Metoprolol Succinate) 100 Mg Tabcr 150 Mg PO DAILY 02/26/14 Reported Novolog Flexpen (Insulin Aspart) 100 Units/Ml Inj 90 Units SQ W/SUPPER 09/28/13 Reported Novolog Flexpen (Insulin Aspart) 100 Units/Ml Inj 50 Units SQ W/LUNCH 09/28/13 Reported Novolog Flexpen (Insulin Aspart) 100 Units/Ml Inj 50 Units SQ W/BREAKFAST 09/28/13 Reported Zyloprim (Allopurinol) 100 Mg Tab 100 Mg PO DAILY 09/28/13 Reported Vitamin C 500 mg (Ascorbic Acid) 1 Chw Chw 1,000 Mg PO DAILY 04/15/13 Reported Vitamin B6 (Pyridoxine HCl) 100 Mg Tab 200 Mg PO DAILY 04/15/13 Reported Current Inpatient Medications Current Inpatient Medications Medications (Trade) Dose Ordered Sig/Duyen Route Start Time Stop Time Status Last Admin Dose Admin Heparin Sodium (Porcine) (Heparin Sq 5000 Unit/0.5ml) 5,000 unit Q8@0000,0800,1600 SQ 05/05/16 16:00 06/04/16 15:59 05/06/16 08:07 5,000 UNIT Acetaminophen (Tylenol Tab) 650 mg Q4H PRN PO 05/05/16 14:00 06/04/16 13:59 Al Hydrox/Mg Hydrox/Simethicone (Maalox Max Susp) 15 ml Q4H PRN PO 05/05/16 14:00 06/04/16 13:59 Magnesium Hydroxide (Milk Of Magnesia Susp) 30 ml Q12H PRN PO 05/05/16 14:00 06/04/16 13:59 Ondansetron HCl (Zofran Inj) 4 mg Q6H PRN IV 05/05/16 14:00 06/04/16 13:59 Polyethylene (Miralax Powder Packet) 17 gm DAILY PRN PO 05/05/16 14:00 06/04/16 13:59 Albuterol/ Ipratropium (Duoneb) 3 ml QIDR INH 05/05/16 16:00 06/04/16 15:59 05/06/16 11:47 3 ML Miscellaneous Information (Consult Glycemic Management Pharmacy) 1 ea UD PRN N/A 05/05/16 15:48 06/04/16 15:47 Allopurinol (Zyloprim Tab) 100 mg DAILY PO 05/06/16 09:00 06/05/16 08:59 05/06/16 07:55 100 MG Atorvastatin Calcium (Lipitor Tab) 40 mg DAILY PO 05/06/16 09:00 06/05/16 08:59 05/06/16 07:58 40 MG Metoprolol Succinate (Toprol Xl Tab) 150 mg DAILY PO 05/06/16 09:00 06/05/16 08:59 05/06/16 07:54 150 MG Pregabalin (Lyrica Cap) 150 mg TID PO 05/05/16 21:00 06/04/16 20:59 05/06/16 07:51 150 MG Pyridoxine HCl (Vitamin B-6 Tab) 200 mg DAILY PO 05/06/16 09:00 06/05/16 08:59 05/06/16 07:57 200 MG Spironolactone (Aldactone Tab) 50 mg BID17 PO 05/05/16 17:00 06/04/16 16:59 05/06/16 07:57 50 MG Verapamil HCl (Calan-Sr Tab) 240 mg DAILY PO 05/06/16 09:00 06/05/16 08:59 05/06/16 07:52 240 MG Amoxicillin/ Clavulanate Potassium (Augmentin Tab) 875 mg BIDM PO 05/05/16 16:45 05/15/16 16:44 05/06/16 07:56 875 MG Doxycycline Hyclate (Vibramycin Cap) 100 mg BID PO 05/05/16 21:00 05/15/16 20:59 05/06/16 07:58 100 MG Salmeterol Xinafoate/ Fluticasone (Advair Diskus 500/50 Inh) 1 puff BID INH 05/05/16 21:00 06/04/16 20:59 05/06/16 07:53 1 PUFF Insulin Aspart (novoLOG ASPART) SLIDING SCALE ACHS SQ 05/05/16 16:15 06/04/16 16:14 05/06/16 08:06 40 UNITS Multivitamins/ Minerals (Multivitamin W/ Minerals Tab) 1 tab DAILY PO 05/06/16 09:00 06/05/16 08:59 05/06/16 07:56 1 TAB Prednisone (PredniSONE TAB) 15 mg QAM PO 05/06/16 09:00 06/05/16 08:59 05/06/16 07:55 15 MG Tiotropium [place] (Spiriva Handihaler Inhaler) 1 puff BID INH 05/05/16 21:00 06/04/16 20:59 05/06/16 07:53 1 PUFF Insulin Glargine SEE PROTOCOL BID SQ 05/05/16 21:00 06/04/16 20:59 05/06/16 08:06 60 UNIT Bumetanide/Syringe (Bumex IV/ Syringe) 12 ml @ 4 mls/min BID17 IV 05/06/16 17:00 06/05/16 16:59 Review of Systems Constitutional: + fatigue, + weakness, No chills, No fever, No sweats Eyes: No worsening of vision ENT: No hearing loss Respiratory: + cough, + dyspnea on exertion, + shortness of breath Cardiovascular: + chest pain Abdomen: No nausea, No pain, No vomiting Musculoskeletal: + swelling (bilateral lower extremities.), No joint pain Genitourinary - Female: No dysuria Integumentary: + color change (erythema of the bilateral lower extremities. Some drainage from small ulcer on the left lateral leg. ) Physical Exam Date Time Temp Pulse Resp B/P Pulse Ox O2 Delivery O2 Flow Rate FiO2 05/06/16 12:00 Nasal Cannula 3.0 05/06/16 11:58 36.5 75 22 175/75 94 Nasal Cannula 3.0 05/06/16 11:47 73 18 94 Nasal Cannula 3.0 05/06/16 08:04 36.4 78 22 183/79 94 Nasal Cannula 3.0 Humidified Air 05/06/16 08:00 Nasal Cannula 3.0 05/06/16 07:05 74 18 97 Nasal Cannula 4.0 05/06/16 04:21 37.1 72 18 147/79 94 BiPAP 05/06/16 04:00 Room Air 05/06/16 00:00 Room Air 05/05/16 23:55 72 97 4.0 05/05/16 23:53 36.8 78 20 145/74 95 Nasal Cannula 4.0 05/05/16 20:00 Room Air 05/05/16 19:54 36.6 79 20 139/67 95 Nasal Cannula 4.0 05/05/16 19:32 78 18 96 Nasal Cannula 4.0 05/05/16 16:10 71 18 97 Nasal Cannula 4.0 05/05/16 15:38 36.6 73 20 176/76 93 Nasal Cannula 4.0 05/05/16 13:49 71 27 138/61 95 Nasal Cannula 4.0 05/05/16 13:49 68 27 141/62 95 05/05/16 13:28 69 26 153/69 94 Nasal Cannula 4.0 05/05/16 12:14 77 05/05/16 12:14 93 Nasal Cannula 4.0 General Appearance: WD/WN, no apparent distress Head: normocephalic, atraumatic Eyes: normal inspection, sclerae normal ENT: hearing grossly normal Neck: supple, trachea midline Respiratory/Chest: + decreased breath sounds (bases), + pertinent finding ( nasal cannula O2 in place) Cardiovascular: regular rate, rhythm Abdomen/GI: normal bowel sounds, + pertinent finding (obese) Back: normal inspection Extremities/Musculoskelatal: + swelling (2+ pitting edema of the bilateral lower extremities) Neurologic/Psych: alert, normal mood/affect Skin: + pertinent finding (moderate erythema of the bilateral lower extremities. Some slight serous drainage from the left lateral lower extremity ulceration. Ulcer is approx. 2 cm in diameter. ) Laboratory Results CHEST ONE VIEW PORTABLE CLINICAL HISTORY: Shortness of breath, edema. COMPARISON STUDY: 08/20/2015 FINDINGS: The right-sided PICC catheter has been removed. Heart is enlarged. Evaluation is difficult due to the patient's large body habitus. There is suspected asymmetric pulmonary vascular congestion. There is right basilar atelectasis/consolidation. Bibasilar atelectatic changes are also evident.[ Radiographic follow-up is recommended. IMPRESSION: 1. Difficult study to interpret due to the patient's large body habitus and portable nature of the examination 2. Suspected mild asymmetric pulmonary vascular congestion 3. Right medial basilar atelectasis/consolidation 4. Bibasilar atelectasis Last 24 Hours Test 05/05/16 14:45 05/05/16 16:04 05/05/16 16:07 05/05/16 20:20 Arterial Blood pH 7.41 Arterial Blood Partial Pressure CO2 62 mmHg Arterial Blood Partial Pressure O2 80 mm/Hg Arterial Blood HCO3 39 mmol/L Arterial Blood Oxygen Saturation 93.9 % Arterial Blood Base Excess 11.8 mEq/L Arterial Blood Gas Delivery 4 L Oleg Test POS Bedside Glucose 139 mg/dl 184 mg/dl White Blood Count 11.33 K/uL Red Blood Count 3.25 M/uL Hemoglobin 10.1 g/dL Hematocrit 30.7 % Mean Corpuscular Volume 94.5 fL Mean Corpuscular Hemoglobin 31.1 pg Mean Corpuscular Hemoglobin Concent 32.9 g/dl RDW Standard Deviation 69.5 fL RDW Coefficient of Variation 20.2 % Platelet Count 186 K/uL Mean Platelet Volume 9.5 fL Nucleated RBC Absolute Count (auto) 0.09 K/uL Nucleated Red Blood Cells % 0.8 % Sodium Level 138 mmol/L Potassium Level 4.6 mmol/L Chloride Level 95 mmol/L Carbon Dioxide Level 39 mmol/L Anion Gap 4.0 mmol/L Blood Urea Nitrogen 55 mg/dl Creatinine 2.00 mg/dl Est Creatinine Clear Calc Drug Dose 44.2 ml/min Estimated GFR () 30.2 Estimated GFR (Non- 26.1 BUN/Creatinine Ratio 27.5 Random Glucose 135 mg/dl Calcium Level 10.1 mg/dl Hepatitis C Antibody Screen NEG Test 05/06/16 05:17 05/06/16 07:27 05/06/16 08:47 05/06/16 10:05 White Blood Count 8.39 K/uL Red Blood Count 3.18 M/uL Hemoglobin 9.8 g/dL Hematocrit 30.8 % Mean Corpuscular Volume 96.9 fL Mean Corpuscular Hemoglobin 30.8 pg Mean Corpuscular Hemoglobin Concent 31.8 g/dl RDW Standard Deviation 71.3 fL RDW Coefficient of Variation 20.3 % Platelet Count 193 K/uL Mean Platelet Volume 10.1 fL Nucleated RBC Absolute Count (auto) 0.10 K/uL Nucleated Red Blood Cells % 1.2 % Sodium Level 138 mmol/L Potassium Level 4.0 mmol/L Chloride Level 95 mmol/L Carbon Dioxide Level 34 mmol/L Anion Gap 9.0 mmol/L Blood Urea Nitrogen 56 mg/dl Creatinine 2.00 mg/dl Est Creatinine Clear Calc Drug Dose 44.2 ml/min Estimated GFR () 30.2 Estimated GFR (Non- 26.1 BUN/Creatinine Ratio 28.0 Random Glucose 138 mg/dl Calcium Level 9.9 mg/dl Bedside Glucose 155 mg/dl Procalcitonin 0.13 ng/mL Arterial Blood pH 7.41 Arterial Blood Partial Pressure CO2 64 mmHg Arterial Blood Partial Pressure O2 75 mm/Hg Arterial Blood HCO3 40 mmol/L Arterial Blood Oxygen Saturation 92.5 % Arterial Blood Base Excess 13.1 mEq/L Arterial Blood Gas Delivery 3L Oleg Test POSITIVE Test 05/06/16 10:53 Bedside Glucose 142 mg/dl Assessment & Plan Patient appears to be fluid overloaded with acute on chronic respiratory failure with chronic recurrent bilateral lower extremity cellulitis. She appears to have some mild worsening of the bilateral lower extremities since my exam on Thursday of last week. Therefore, will D/C chronic Doxycycline and Augmentin and start IV Teflaro after discussion with pharmacy. We will follow. Case reviewed and agree with above assessment, broad spectrum abx and follow culture results, will follow.
--- NOTE | 2016-05-06 12:36 | Nephrology Consultation ---
Nephrology Consultation Date & Providers Date of Consultation: May 06, 2016. Primary Care Provider: Emily Isaac C.R.N.P Referring Provider: Reason for Consultation Acute on chronic renal insufficiency History of Present Illness Mrs. Hemalatha Gaytan has chronic kidney disease stage III with a baseline creatinine of 1.7 and an EGFR 30 cc/minute. The patient's renal impairment due to diabetic nephropathy and hypertensive nephrosclerosis. She follows in the nephrology clinic with Dr. Carl Neri. I previously met Mrs. Gaytan during her last admission to [facility] in August 2015. At that time, she was also admitted with volume overload and acute on chronic renal insufficiency. She was most recently seen in the nephrology clinic by Dr. Neri in March 2016. At that time, she was doing very well. Volume status was appropriately controlled and she had lost approximately 11 lbs in the past several months. Unfortunately, within the past 2 weeks, Hemalatha noted that her weight was increasing. She noted increasing lower extremity and abdominal edema. Within the past 2-3 days, she noted increasing difficulty breathing. She felt her legs were darker red in color but not erythematous or painful. She denied any fevers or chills. Since admission, she has noted a slight improvement in symptoms. Medical records from the inpatient and outpatient EHR were reviewed today including records from her prior hospitalizations. The patient has a long-standing arterial hypertension. This is now managed with metoprolol, verapamil, spironolactone and bumetanide therapy. BRYSON inhibitor therapy was stopped previously due to hypotension. Echocardiogram 07/2015 revealed mild LVH but preserved LVEF of 65 - 70%. She has class 1 diastolic dysfunction. Right ventricle and right atrium could not be well visualized due to body habitus. RVSP 30-40. The patient's BMI is > 40. Past Medical/Surgical History Medical: # CKD stage III (moderate impairment). Baseline creatinine has been ~ 1.7 w/ EGFR 32 cc/min. Abdominal CT 2014 revealed structurally normal kidneys. Patient's renal impairment is on the basis of diabetic nephropathy, hypertensive nephrosclerosis and impaired perfusion associated with right-sided heart failure. # HTN - BRYSON inhibitor therapy stopped due to relative hypotension # AODM - no retinopathy # Obesity (BMI 52) # Obesity hypoventilation - BIPAP QHS # COPD - on chronic O2 at 3 L/min # Lung nodule - stable over several years of observation by pulmonology # Arthritis involving the hands - management as per Dr. Giordano # Chronic lower extremity edema due to obesity hypoventilation syndrome/ pulmonary hypertension. This has been managed with loop diuretics and Bryson bandage wraps. Echocardiogram October 2014 revealed LVEF 55 - 60%, mild LVH, RVSP 45, mild RV dilation and moderate TR # Chronic stasis dermatitis # Chronic lower extremity cellulitis - maintained on oral doxycycline and Augmentin. Followed in the ID clinic by Gabriella Tong PA-C Surgical: Hysterectomy, tonsillectomy Allergies Coded Allergies: Daptomycin (Verified Allergy, Mild, HIVES, 02/25/16) itching Codeine (Verified Allergy, Unknown, unknown, 02/25/16) has tolerated morphine Iodine (Verified Allergy, Unknown, 02/25/16) Shellfish (Verified Allergy, Unknown, 02/25/16) Sulfamethoxazole w/Trimethoprim (Verified Allergy, Unknown, RASH, 02/25/16 ) Inpatient Medications Current Inpatient Medications Medications (Trade) Dose Ordered Sig/Duyen Route Start Time Stop Time Status Last Admin Dose Admin Heparin Sodium (Porcine) (Heparin Sq 5000 Unit/0.5ml) 5,000 unit Q8@0000,0800,1600 SQ 05/05/16 16:00 06/04/16 15:59 05/06/16 08:07 5,000 UNIT Acetaminophen (Tylenol Tab) 650 mg Q4H PRN PO 05/05/16 14:00 06/04/16 13:59 Al Hydrox/Mg Hydrox/Simethicone (Maalox Max Susp) 15 ml Q4H PRN PO 05/05/16 14:00 06/04/16 13:59 Magnesium Hydroxide (Milk Of Magnesia Susp) 30 ml Q12H PRN PO 05/05/16 14:00 06/04/16 13:59 Ondansetron HCl (Zofran Inj) 4 mg Q6H PRN IV 05/05/16 14:00 06/04/16 13:59 Polyethylene (Miralax Powder Packet) 17 gm DAILY PRN PO 05/05/16 14:00 06/04/16 13:59 Albuterol/ Ipratropium (Duoneb) 3 ml QIDR INH 05/05/16 16:00 06/04/16 15:59 05/06/16 11:47 3 ML Miscellaneous Information (Consult Glycemic Management Pharmacy) 1 ea UD PRN N/A 05/05/16 15:48 06/04/16 15:47 Allopurinol (Zyloprim Tab) 100 mg DAILY PO 05/06/16 09:00 06/05/16 08:59 05/06/16 07:55 100 MG Atorvastatin Calcium (Lipitor Tab) 40 mg DAILY PO 05/06/16 09:00 06/05/16 08:59 05/06/16 07:58 40 MG Metoprolol Succinate (Toprol Xl Tab) 150 mg DAILY PO 05/06/16 09:00 06/05/16 08:59 05/06/16 07:54 150 MG Pregabalin (Lyrica Cap) 150 mg TID PO 05/05/16 21:00 06/04/16 20:59 05/06/16 07:51 150 MG Pyridoxine HCl (Vitamin B-6 Tab) 200 mg DAILY PO 05/06/16 09:00 06/05/16 08:59 05/06/16 07:57 200 MG Spironolactone (Aldactone Tab) 50 mg BID17 PO 05/05/16 17:00 06/04/16 16:59 05/06/16 07:57 50 MG Verapamil HCl (Calan-Sr Tab) 240 mg DAILY PO 05/06/16 09:00 06/05/16 08:59 05/06/16 07:52 240 MG Amoxicillin/ Clavulanate Potassium (Augmentin Tab) 875 mg BIDM PO 05/05/16 16:45 05/15/16 16:44 05/06/16 07:56 875 MG Doxycycline Hyclate (Vibramycin Cap) 100 mg BID PO 05/05/16 21:00 05/15/16 20:59 05/06/16 07:58 100 MG Salmeterol Xinafoate/ Fluticasone (Advair Diskus 500/50 Inh) 1 puff BID INH 05/05/16 21:00 06/04/16 20:59 05/06/16 07:53 1 PUFF Insulin Aspart (novoLOG ASPART) SLIDING SCALE ACHS SQ 05/05/16 16:15 06/04/16 16:14 05/06/16 08:06 40 UNITS Multivitamins/ Minerals (Multivitamin W/ Minerals Tab) 1 tab DAILY PO 05/06/16 09:00 06/05/16 08:59 05/06/16 07:56 1 TAB Prednisone (PredniSONE TAB) 15 mg QAM PO 05/06/16 09:00 06/05/16 08:59 05/06/16 07:55 15 MG Tiotropium Widener (Spiriva Handihaler Inhaler) 1 puff BID INH 05/05/16 21:00 06/04/16 20:59 05/06/16 07:53 1 PUFF Insulin Glargine SEE PROTOCOL BID SQ 05/05/16 21:00 06/04/16 20:59 05/06/16 08:06 60 UNIT Bumetanide/Syringe (Bumex IV/ Syringe) 12 ml @ 4 mls/min BID17 IV 05/06/16 17:00 06/05/16 16:59 Family History Cancer Diabetes mellitus Gallbladder disease Heart disease Lung disease Social History Smoking Status: Former Smoker Smokeless Tobacco Use: No Alcohol Use: none Drug Use: none Marital Status: Housing Status: lives with family Occupation: unemployed Review of Systems A complete review of systems was performed. Pertinent positives are noted above. All other systems are negative. Physical Exam Date Time Temp Pulse Resp B/P Pulse Ox O2 Delivery O2 Flow Rate FiO2 05/06/16 11:58 36.5 75 22 175/75 94 Nasal Cannula 3.0 05/06/16 11:47 73 18 94 Nasal Cannula 3.0 05/06/16 08:04 36.4 78 22 183/79 94 Nasal Cannula 3.0 Humidified Air 05/06/16 08:00 Nasal Cannula 3.0 05/06/16 07:05 74 18 97 Nasal Cannula 4.0 05/06/16 04:21 37.1 72 18 147/79 94 BiPAP 05/06/16 04:00 Room Air 05/06/16 00:00 Room Air 05/05/16 23:55 72 97 4.0 05/05/16 23:53 36.8 78 20 145/74 95 Nasal Cannula 4.0 05/05/16 20:00 Room Air 05/05/16 19:54 36.6 79 20 139/67 95 Nasal Cannula 4.0 05/05/16 19:32 78 18 96 Nasal Cannula 4.0 05/05/16 16:10 71 18 97 Nasal Cannula 4.0 05/05/16 15:38 36.6 73 20 176/76 93 Nasal Cannula 4.0 05/05/16 13:49 71 27 138/61 95 Nasal Cannula 4.0 05/05/16 13:49 68 27 141/62 95 05/05/16 13:28 69 26 153/69 94 Nasal Cannula 4.0 05/05/16 12:14 77 05/05/16 12:14 93 Nasal Cannula 4.0 General Appearance: no apparent distress, + obese Head: normocephalic, atraumatic Eyes: normal inspection, sclerae normal ENT: normal ENT inspection, pharynx normal Neck: supple, + pertinent finding (thick, unable to appreciate JVD) Respiratory/Chest: no respiratory distress, no accessory muscle use, + decreased breath sounds, + rales (bilateral) Cardiovascular: regular rate, rhythm, no gallop Abdomen/GI: non tender, soft Back: normal inspection, no muscle spasm Extremities/Musculoskelatal: + pertinent finding (+4 woody edema with induration and significant stasis changes) Neurologic/Psych: alert, oriented x 3 Skin: + pertinent finding (chronic stasis changes, cannot exclude cellulitis) Laboratory Results Last 24 Hours Test 05/05/16 14:45 05/05/16 16:04 05/05/16 16:07 05/05/16 20:20 Arterial Blood pH 7.41 Arterial Blood Partial Pressure CO2 62 mmHg Arterial Blood Partial Pressure O2 80 mm/Hg Arterial Blood HCO3 39 mmol/L Arterial Blood Oxygen Saturation 93.9 % Arterial Blood Base Excess 11.8 mEq/L Arterial Blood Gas Delivery 4 L Oleg Test POS Bedside Glucose 139 mg/dl 184 mg/dl White Blood Count 11.33 K/uL Red Blood Count 3.25 M/uL Hemoglobin 10.1 g/dL Hematocrit 30.7 % Mean Corpuscular Volume 94.5 fL Mean Corpuscular Hemoglobin 31.1 pg Mean Corpuscular Hemoglobin Concent 32.9 g/dl RDW Standard Deviation 69.5 fL RDW Coefficient of Variation 20.2 % Platelet Count 186 K/uL Mean Platelet Volume 9.5 fL Nucleated RBC Absolute Count (auto) 0.09 K/uL Nucleated Red Blood Cells % 0.8 % Sodium Level 138 mmol/L Potassium Level 4.6 mmol/L Chloride Level 95 mmol/L Carbon Dioxide Level 39 mmol/L Anion Gap 4.0 mmol/L Blood Urea Nitrogen 55 mg/dl Creatinine 2.00 mg/dl Est Creatinine Clear Calc Drug Dose 44.2 ml/min Estimated GFR () 30.2 Estimated GFR (Non- 26.1 BUN/Creatinine Ratio 27.5 Random Glucose 135 mg/dl Calcium Level 10.1 mg/dl Hepatitis C Antibody Screen NEG Test 05/06/16 05:17 05/06/16 07:27 05/06/16 08:47 05/06/16 10:05 White Blood Count 8.39 K/uL Red Blood Count 3.18 M/uL Hemoglobin 9.8 g/dL Hematocrit 30.8 % Mean Corpuscular Volume 96.9 fL Mean Corpuscular Hemoglobin 30.8 pg Mean Corpuscular Hemoglobin Concent 31.8 g/dl RDW Standard Deviation 71.3 fL RDW Coefficient of Variation 20.3 % Platelet Count 193 K/uL Mean Platelet Volume 10.1 fL Nucleated RBC Absolute Count (auto) 0.10 K/uL Nucleated Red Blood Cells % 1.2 % Sodium Level 138 mmol/L Potassium Level 4.0 mmol/L Chloride Level 95 mmol/L Carbon Dioxide Level 34 mmol/L Anion Gap 9.0 mmol/L Blood Urea Nitrogen 56 mg/dl Creatinine 2.00 mg/dl Est Creatinine Clear Calc Drug Dose 44.2 ml/min Estimated GFR () 30.2 Estimated GFR (Non- 26.1 BUN/Creatinine Ratio 28.0 Random Glucose 138 mg/dl Calcium Level 9.9 mg/dl Bedside Glucose 155 mg/dl Procalcitonin 0.13 ng/mL Arterial Blood pH 7.41 Arterial Blood Partial Pressure CO2 64 mmHg Arterial Blood Partial Pressure O2 75 mm/Hg Arterial Blood HCO3 40 mmol/L Arterial Blood Oxygen Saturation 92.5 % Arterial Blood Base Excess 13.1 mEq/L Arterial Blood Gas Delivery 3L Oleg Test POSITIVE Test 05/06/16 10:53 Bedside Glucose 142 mg/dl Impression (1) Acute respiratory failure with hypoxia and hypercapnia (2) Chronic kidney disease (CKD) stage G3b/A1, moderately decreased glomerular filtration rate (GFR) between 30-44 mL/min/1.73 square meter and albuminuria creatinine ratio less than 30 mg/g (3) Acute on chronic diastolic (congestive) heart failure (4) Acute kidney injury (5) Anemia (6) Edema Hemalatha is a 60 year-old female with CKD III (baseline creatinine 1.7), hypertension, morbid obesity (BMI 52) and obesity hypoventilation syndrome. The patient's renal impairment is on the basis of diabetic nephropathy and hypertensive nephrosclerosis. She has not had significant proteinuria. She has chronic lower extremity edema attributed to right heart failure, lymphedema , venous insufficiency. She was admitted to [facility] with volume overload in August 2015. Prior to that she had been admitted to the ICU with hypercarbic respiratory failure. Hemalatha presented to [facility] yesterday with acute hypoxic respiratory failure and significant hypervolemia. She diuresed overnight ~1 kg with early improvement in symptoms. GUNNAR consistent with acute CRS in the setting of diastolic CHF and right heart failure. Suggest continues diuresis with a goal of at least 2 kg daily. Recommendations CHRONIC KIDNEY DISEASE: -- Patient has pulmonary hypertension and right-sided heart failure. Previously attempts to alleviate volume overload have been met without worsening kidney function. -- Dr. Neri's notes imply that Hemalatha has been advised to undergo creation of an AV fistula. She may require dialysis in the future in order to alleviate her peripheral edema. COR PULMONALE: -- Echocardiogram January 2014 revealed PA pressure 50 - 60 mmHg. -- Continue Bumex 3 mg IV BID and increase as needed -- Continue spironolactone 50 mg twice a day HYPERTENSION: -- Blood pressure was checked today and found to be acceptable. No change to current antihypertensive regimen at this time. Continue to monitor. ANEMIA: -- Patient has mild, asymptomatic anemia. No acute indication for SAMARA therapy at this time. Continue to monitor.
[2016-05-06] MEDS ORDERED: CEFTAROLINE FOSAMIL INJ 600 MG in SODIUM CHLORIDE 0.9% 250ML 250 ML IV SCH (13:00)
[2016-05-06] MEDS ORDERED: [UNRECOGNIZED DRUG - REMARK] PRN (13:15)
[2016-05-06] MEDS: CEFTAROLINE FOSAMIL IV SCH (14:05)
[2016-05-06] MEDS: SODIUM CHLORIDE 0.9% IV SCH (14:05)
[2016-05-06] MEDS: BUMETANIDE IV 3 MG in SYRINGE 0 ML IV SCH (16:52)
[2016-05-06] MEDS ORDERED: VANCOMYCIN INJ 1,500 MG in SODIUM CHLORIDE 0.9% 250ML 250 ML IV SCH (21:00)
[2016-05-07] VITALS (11 sets, daily range): BP systolic 145–193; BP diastolic 69–75; PULSE 65–89; TEMP 36.2–36.8; O2SAT 91–97
[2016-05-07] MEDS: SODIUM CHLORIDE 0.9% IV SCH ×2 (02:20→13:48)
[2016-05-07] MEDS: CEFTAROLINE FOSAMIL IV SCH ×2 (02:20→13:48)
[2016-05-07] MEDS: ALBUT/IPRATROP 3MG/0.5MG NEB 3 ML VIAL INH SCH ×4 (07:06→19:06)
[2016-05-07] MEDS: TIOTROPIUM BROMIDE 5 PUFF/90 MCG INH INH SCH (08:02)
[2016-05-07] MEDS: ATORVASTATIN 40 MG TAB PO SCH (08:03)
[2016-05-07] MEDS: FLUTICASONE/SALMETEROL (ADVAIR) 500/50 INH 14 PUFF INH SCH ×2 (08:03→20:26)
[2016-05-07] MEDS: PYRIDOXINE HCL 50 MG TAB PO SCH (08:03)
[2016-05-07] MEDS: CEROVITE ADV FORMULA TAB PO SCH (08:04)
[2016-05-07] MEDS: VERAPAMIL HCL 240 MG TABCR PO SCH (08:04)
[2016-05-07] MEDS: METOPROLOL SUCC 50MG EXT REL TAB PO SCH (08:04)
[2016-05-07] MEDS: SPIRONOLACTONE 25 MG TAB PO SCH ×2 (08:04→17:31)
[2016-05-07] MEDS: BUMETANIDE IV 3 MG in SYRINGE 0 ML IV SCH ×2 (08:04→17:31)
[2016-05-07] MEDS: ALLOPURINOL 100 MG TAB PO SCH (08:04)
[2016-05-07] MEDS: INSULIN GLARGINE SQ SCH ×2 (08:08→20:30)
[2016-05-07] MEDS: INSULIN ASPART 100 UNITS/ML VIAL SQ SCH ×4 (08:08→21:44)
[2016-05-07] MEDS: HEPARIN SOD 5000 UNIT/0.5 ML CARP SQ SCH ×3 (08:09→23:46)
[2016-05-07] MEDS: PREGABALIN 150 MG CAP PO SCH ×3 (08:11→20:26)
[2016-05-07 08:44] LABS: BUN/CREATININE RATIO 27.3 (10-20); CALCIUM 9.9 mg/dl (8.5-10.1); POTASSIUM 4.1 mmol/L (3.5-5.1)
--- NOTE | 2016-05-07 09:58 | Pharmacy Progress Note ---
Glycemic: Assessment & Plan Date of Service May 07, 2016. Assessment & Plan Test 05/06/16 10:53 05/06/16 16:12 05/06/16 20:19 05/07/16 06:29 Bedside Glucose 142 mg/dl (70-90) 158 mg/dl (70-90) 179 mg/dl (70-90) 159 mg/dl (70-90) The patient is currently receiving 242 units of insulin per day. BSGs ranging 138 - 179 mg/dl over the past 24hrs, very well controlled as inpatient. Patient usually uses around 440units insulin/day at home. Patient started on IV Ceftaroline for worsening B/L LE cellulitis. CKD stage III. * Lantus SQ BID * 50 units if BSG is below 120mg/dL * 60 units if BSG is 120-160mg/dL * 70 units if BSG is above 160mg/dL * NovoLog SQ AC and HS * Correction factor: 5mg/dL/unit * Carb ratio: 1 unit per 2 g of CHO consumed * Goal range: 110-150mg/dL BSGs continue to improve, no changes needed to inpatient regimen at this time. Pharmacy will continue to monitor patient daily and write orders per [facility] inpatient glycemic control protocol. Thanks. * Please note that the plan above was derived based on current level of insulin resistance and hospital stress. These recommendations are appropriate for inpatient admission only. Plan of care upon discharge will need to be reassessed to avoid potential outpatient hypo/hyperglycemia.
--- NOTE | 2016-05-07 10:24 | Nephrology Progress Note ---
Nephrology Progress Note Date of Service May 07, 2016. Chief Complaint Acute on chronic renal insufficiency Subjective No acute events overnight. Hemalatha has not noticed a significant improvement in edema but she is encouraged by her I/O's. She feels well. Dyspnea has started to improve but activity tolerance remains limited. She denies fevers or chills. She denies pain. No chest pain or palpitations. Review of Systems A complete review of systems was performed. Pertinent positives are noted above. All other systems are negative. Vital Signs Last 8 Hrs Date Time Temp Pulse Resp B/P Pulse Ox O2 Delivery O2 Flow Rate FiO2 05/07/16 08:00 Nasal Cannula 3.0 05/07/16 07:35 36.5 65 20 185/75 95 Nasal Cannula 3.0 05/07/16 07:06 89 18 96 Nasal Cannula 3.0 05/07/16 04:04 36.5 84 19 145/70 97 CPAP 05/07/16 04:00 Nasal Cannula 3.0 I & O 24-Hour Column 05/07/16 07:59 Intake Total 1464 ml Output Total 4325 ml Balance -2861 ml Last Recorded Weight Weight (Kilograms): 149.100 Physical Exam General Appearance: no apparent distress, + obese Head: normocephalic, atraumatic Eyes: normal inspection, sclerae normal ENT: normal ENT inspection, pharynx normal Neck: supple, + pertinent finding (Thick, unable to appreciate JVP) Respiratory/Chest: lungs clear, no respiratory distress, no accessory muscle use, + rales Cardiovascular: regular rate, rhythm, no gallop Abdomen/GI: non tender, soft Extremities/Musculoskelatal: + pedal edema (+4 bilateral with chronic stasis changes, induration and erythema) Neurologic/Psych: alert, oriented x 3 Family History Cancer Diabetes mellitus Gallbladder disease Heart disease Lung disease Social History Smoking Status: Former smoker Smokeless Tobacco Use: No Alcohol Use: none Drug Use: none Marital Status: Housing Status: lives with family Occupation: unemployed Laboratory Results Past 24 Hours 05/07/16 08:15 Test 05/06/16 10:53 05/06/16 16:12 05/06/16 20:19 05/07/16 06:29 Bedside Glucose 142 mg/dl (70-90) 158 mg/dl (70-90) 179 mg/dl (70-90) 159 mg/dl (70-90) Test 05/07/16 08:15 Anion Gap 9.0 mmol/L (3-11) Est Creatinine Clear Calc Drug Dose 43.2 ml/min Estimated GFR () 30.2 Estimated GFR (Non- 26.1 BUN/Creatinine Ratio 27.3 (10-20) Calcium Level 9.9 mg/dl (8.5-10.1) Allergies Coded Allergies: Daptomycin (Verified Allergy, Mild, HIVES, 02/25/16) itching Codeine (Verified Allergy, Unknown, unknown, 02/25/16) has tolerated morphine Iodine (Verified Allergy, Unknown, 02/25/16) Shellfish (Verified Allergy, Unknown, 02/25/16) Sulfamethoxazole w/Trimethoprim (Verified Allergy, Unknown, RASH, 02/25/16 ) Medications Current Inpatient Medications Medications (Trade) Dose Ordered Sig/Duyen Route Start Time Stop Time Status Last Admin Dose Admin Heparin Sodium (Porcine) (Heparin Sq 5000 Unit/0.5ml) 5,000 unit Q8@0000,0800,1600 SQ 05/05/16 16:00 06/04/16 15:59 05/07/16 08:09 5,000 UNIT Acetaminophen (Tylenol Tab) 650 mg Q4H PRN PO 05/05/16 14:00 06/04/16 13:59 05/06/16 22:07 650 MG Al Hydrox/Mg Hydrox/Simethicone (Maalox Max Susp) 15 ml Q4H PRN PO 05/05/16 14:00 06/04/16 13:59 Magnesium Hydroxide (Milk Of Magnesia Susp) 30 ml Q12H PRN PO 05/05/16 14:00 06/04/16 13:59 Ondansetron HCl (Zofran Inj) 4 mg Q6H PRN IV 05/05/16 14:00 06/04/16 13:59 Polyethylene (Miralax Powder Packet) 17 gm DAILY PRN PO 05/05/16 14:00 06/04/16 13:59 Albuterol/ Ipratropium (Duoneb) 3 ml QIDR INH 05/05/16 16:00 06/04/16 15:59 05/07/16 07:06 3 ML Miscellaneous Information (Consult Glycemic Management Pharmacy) 1 ea UD PRN N/A 05/05/16 15:48 06/04/16 15:47 Allopurinol (Zyloprim Tab) 100 mg DAILY PO 05/06/16 09:00 06/05/16 08:59 05/07/16 08:04 100 MG Atorvastatin Calcium (Lipitor Tab) 40 mg DAILY PO 05/06/16 09:00 06/05/16 08:59 05/07/16 08:03 40 MG Metoprolol Succinate (Toprol Xl Tab) 150 mg DAILY PO 05/06/16 09:00 06/05/16 08:59 05/07/16 08:04 150 MG Pregabalin (Lyrica Cap) 150 mg TID PO 05/05/16 21:00 06/04/16 20:59 05/07/16 08:11 150 MG Pyridoxine HCl (Vitamin B-6 Tab) 200 mg DAILY PO 05/06/16 09:00 06/05/16 08:59 05/07/16 08:03 200 MG Spironolactone (Aldactone Tab) 50 mg BID17 PO 05/05/16 17:00 06/04/16 16:59 05/07/16 08:04 50 MG Verapamil HCl (Calan-Sr Tab) 240 mg DAILY PO 05/06/16 09:00 06/05/16 08:59 05/07/16 08:04 240 MG Salmeterol Xinafoate/ Fluticasone (Advair Diskus 500/50 Inh) 1 puff BID INH 05/05/16 21:00 06/04/16 20:59 05/07/16 08:03 1 PUFF Insulin Aspart (novoLOG ASPART) SLIDING SCALE ACHS SQ 05/05/16 16:15 06/04/16 16:14 05/07/16 08:08 27 UNITS Multivitamins/ Minerals (Multivitamin W/ Minerals Tab) 1 tab DAILY PO 05/06/16 09:00 06/05/16 08:59 05/07/16 08:04 1 TAB Prednisone (PredniSONE TAB) 15 mg QAM PO 05/06/16 09:00 06/05/16 08:59 05/07/16 08:03 15 MG Tiotropium Calera (Spiriva Handihaler Inhaler) 1 puff BID INH 05/05/16 21:00 06/04/16 20:59 05/07/16 08:02 1 PUFF Insulin Glargine SEE PROTOCOL BID SQ 05/05/16 21:00 06/04/16 20:59 05/07/16 08:08 60 UNIT Bumetanide 3 mg/ Syringe 12 ml @ 4 mls/min BID17 IV 05/06/16 17:00 06/05/16 16:59 05/07/16 08:04 4 MLS/MIN Ceftaroline Fosamil/Sodium Chloride (Teflaro Inj/Nss 250ml) 263.3333 ml @ 270 mls/hr Q12@0200,1400 IV 05/06/16 14:00 05/16/16 13:59 05/07/16 02:20 270 MLS/HR Miscellaneous Information (Pharmacy Consult) 1 ea UD PRN N/A 05/06/16 13:15 06/05/16 13:14 Impression (1) Acute respiratory failure with hypoxia and hypercapnia (2) Chronic kidney disease (CKD) stage G3b/A1, moderately decreased glomerular filtration rate (GFR) between 30-44 mL/min/1.73 square meter and albuminuria creatinine ratio less than 30 mg/g (3) Acute on chronic diastolic (congestive) heart failure (4) Acute kidney injury (5) Anemia (6) Edema Hemalatha is a 60 year-old female with CKD III (baseline creatinine 1.7), hypertension, morbid obesity (BMI 52) and obesity hypoventilation syndrome. The patient's renal impairment is on the basis of diabetic nephropathy and hypertensive nephrosclerosis. She has not had significant proteinuria. She has chronic lower extremity edema attributed to right heart failure, lymphedema , venous insufficiency. She was admitted to [facility] with volume overload in August 2015. Prior to that she had been admitted to the ICU with hypercarbic respiratory failure. Hemalatha presented to [facility] with acute hypoxic respiratory failure and significant hypervolemia. She diuresed overnight ~1 kg with early improvement in symptoms. GUNNAR consistent with acute CRS in the setting of diastolic CHF and right heart failure. Recommendations CHRONIC KIDNEY DISEASE: -- Creatinine stable -- Electrolytes appropriate -- Repeat metabolic profile tomorrow AM -- Medications appropriately dosed for renal function COR PULMONALE/R HEART FAILURE: -- Continue Bumex 3 mg IV BID --> titrate as needed to maintain net negative fluid balance (>2L/d) -- Continue spironolactone 50 mg twice a day HYPERTENSION: -- Blood pressure was checked today and found to be acceptable. No change to current antihypertensive regimen at this time. Continue to monitor. ANEMIA: -- Patient has mild, asymptomatic anemia. No acute indication for SAMARA therapy at this time. Continue to monitor.
--- NOTE | 2016-05-07 11:49 | Family Medicine Progress Note ---
Progress Note Date of Service May 07, 2016. Subjective Pt evaluation today including: conversation w/ patient, physical exam, chart review, lab review Pain: 0/10 PO Intake: WNL Voiding: no voiding problems Patient states that the swelling has improved as well as SOB, not back to BL but definitely on the right track She is hoping to be d/c before the weekend Constitutional: No fever Eyes: No worsening of vision ENT: No hearing loss Respiratory: + dyspnea on exertion, + shortness of breath, No cough, No sputum, No wheezing Cardiovascular: No chest pain Abdomen: No constipation, No diarrhea, No nausea, No pain, No vomiting Musculoskeletal: + swelling (bilat LE cellulitis improving but only minimal) , No joint pain Neurologic: + weakness, No balance problems, No numbness/tingling Psychiatric: No depression symptoms Endo: No fatigue Skin: + problem reported (as above regarding ellulitis) Medications Medications Administered Medications (Trade) Dose Ordered Sig/Duyen Route Start Time Stop Time Status Last Admin Dose Admin Albuterol/ Ipratropium (Duoneb) 3 ml NOW STAT INH 05/05/16 12:02 05/05/16 12:04 DC 05/05/16 12:07 3 ML Furosemide (Lasix Inj) 40 mg NOW STAT IV 05/05/16 12:02 05/05/16 12:04 DC 05/05/16 12:07 40 MG Heparin Sodium (Porcine) (Heparin Sq 5000 Unit/0.5ml) 5,000 unit Q8@0000,0800,1600 SQ 05/05/16 16:00 06/04/16 15:59 05/07/16 08:09 5,000 UNIT Acetaminophen (Tylenol Tab) 650 mg Q4H PRN PO 05/05/16 14:00 06/04/16 13:59 05/06/16 22:07 650 MG Albuterol/ Ipratropium (Duoneb) 3 ml QIDR INH 05/05/16 16:00 06/04/16 15:59 05/07/16 07:06 3 ML Allopurinol (Zyloprim Tab) 100 mg DAILY PO 05/06/16 09:00 06/05/16 08:59 05/07/16 08:04 100 MG Atorvastatin Calcium (Lipitor Tab) 40 mg DAILY PO 05/06/16 09:00 06/05/16 08:59 05/07/16 08:03 40 MG Metoprolol Succinate (Toprol Xl Tab) 150 mg DAILY PO 05/06/16 09:00 06/05/16 08:59 05/07/16 08:04 150 MG Pregabalin (Lyrica Cap) 150 mg TID PO 05/05/16 21:00 06/04/16 20:59 05/07/16 08:11 150 MG Pyridoxine HCl (Vitamin B-6 Tab) 200 mg DAILY PO 05/06/16 09:00 06/05/16 08:59 05/07/16 08:03 200 MG Spironolactone (Aldactone Tab) 50 mg BID17 PO 05/05/16 17:00 06/04/16 16:59 05/07/16 08:04 50 MG Verapamil HCl (Calan-Sr Tab) 240 mg DAILY PO 05/06/16 09:00 06/05/16 08:59 05/07/16 08:04 240 MG Amoxicillin/ Clavulanate Potassium (Augmentin Tab) 875 mg BIDM PO 05/05/16 16:45 05/06/16 12:25 DC 05/06/16 07:56 875 MG Doxycycline Hyclate (Vibramycin Cap) 100 mg BID PO 05/05/16 21:00 05/06/16 12:25 DC 05/06/16 07:58 100 MG Salmeterol Xinafoate/ Fluticasone (Advair Diskus 500/50 Inh) 1 puff BID INH 05/05/16 21:00 06/04/16 20:59 05/07/16 08:03 1 PUFF Insulin Aspart (novoLOG ASPART) SLIDING SCALE ACHS SQ 05/05/16 16:15 06/04/16 16:14 05/07/16 08:08 27 UNITS Multivitamins/ Minerals (Multivitamin W/ Minerals Tab) 1 tab DAILY PO 05/06/16 09:00 06/05/16 08:59 05/07/16 08:04 1 TAB Prednisone (PredniSONE TAB) 15 mg QAM PO 05/06/16 09:00 06/05/16 08:59 05/07/16 08:03 15 MG Tiotropium [place] (Spiriva Handihaler Inhaler) 1 puff BID INH 05/05/16 21:00 06/04/16 20:59 3/8/17 08:02 1 PUFF Insulin Glargine SEE PROTOCOL BID SQ 05/05/16 21:00 06/04/16 20:59 05/07/16 08:08 60 UNIT Bumetanide 2 mg/ Syringe 8 ml @ 4 mls/min BID17 IV 05/05/16 17:00 05/06/16 09:03 DC 05/06/16 07:53 4 MLS/MIN Bumetanide 3 mg/ Syringe 12 ml @ 4 mls/min BID17 IV 05/06/16 17:00 06/05/16 16:59 05/07/16 08:04 4 MLS/MIN Bumetanide 1 mg/ Syringe 4 ml @ 4 mls/min NOW ONCE IV 05/06/16 09:15 05/06/16 09:16 DC 05/06/16 09:37 4 MLS/MIN Ceftaroline Fosamil/Sodium Chloride (Teflaro Inj/Nss 250ml) 263.3333 ml @ 270 mls/hr Q12@0200,1400 IV 05/06/16 14:00 05/16/16 13:59 05/07/16 02:20 270 MLS/HR Objective Vital Signs Date Time Temp Pulse Resp B/P Pulse Ox O2 Delivery O2 Flow Rate FiO2 05/07/16 08:00 Nasal Cannula 3.0 05/07/16 07:35 36.5 65 20 185/75 95 Nasal Cannula 3.0 05/07/16 07:06 89 18 96 Nasal Cannula 3.0 05/07/16 04:04 36.5 84 19 145/70 97 CPAP 05/07/16 04:00 Nasal Cannula 3.0 05/07/16 00:16 81 93 3.0 05/07/16 00:00 Nasal Cannula 3.0 05/06/16 23:32 36.8 85 20 150/75 97 Nasal Cannula 3.0 05/06/16 20:00 Nasal Cannula 3.0 05/06/16 19:44 76 18 95 Nasal Cannula 3.0 05/06/16 19:20 36.8 87 22 155/75 93 Nasal Cannula 4.0 05/06/16 16:02 80 93 05/06/16 16:00 Nasal Cannula 3.0 05/06/16 15:18 78 18 96 Nasal Cannula 3.0 05/06/16 15:01 36.7 80 20 135/72 94 Nasal Cannula 4.0 05/06/16 12:00 Nasal Cannula 3.0 05/06/16 11:58 36.5 75 22 175/75 94 Nasal Cannula 3.0 05/06/16 11:47 73 18 94 Nasal Cannula 3.0 Physical Exam General Appearance: WD/WN, no apparent distress, + obese Eyes: normal inspection ENT: normal ENT inspection Neck: supple Respiratory/Chest: lungs clear, normal breath sounds, no respiratory distress, no accessory muscle use, + decreased breath sounds (bilat bases) Cardiovascular: regular rate, rhythm, no murmur Abdomen: normal bowel sounds, non tender, soft Extremities: + pertinent finding (bilat LE cellulitis improving, weaping wound on left LL) 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: alert, normal mood/affect, oriented x 3 Skin: normal color, warm/dry Lymphatic: no adenopathy Laboratory Results Results Past 24 Hours Test 05/06/16 16:12 05/06/16 20:19 05/07/16 06:29 05/07/16 08:15 Range/Units Bedside Glucose 158 179 159 70-90 mg/dl Sodium Level 136 136-145 mmol/L Potassium Level 4.1 3.5-5.1 mmol/L Chloride Level 93 98-107 mmol/L Carbon Dioxide Level 34 21-32 mmol/L Anion Gap 9.0 3-11 mmol/L Blood Urea Nitrogen 55 7-18 mg/dl Creatinine 2.00 0.60-1.20 mg/dl Est Creatinine Clear Calc Drug Dose 43.2 ml/min Estimated GFR () 30.2 Estimated GFR (Non- 26.1 BUN/Creatinine Ratio 27.3 10-20 Random Glucose 206 70-99 mg/dl Calcium Level 9.9 8.5-10.1 mg/dl Microbiology Results 05/06/16 Gram Stain - Final, Resulted 05/06/16 Wound Culture - Preliminary, Resulted Gram Negative Bacilli Assessment and Plan 60 yo F p/w Acute on Chronic Resp. Failure in setting of Hx of COPD on Bipap daily, Obesity Class I diastolic failure with gradual increasing LE edema while on Bumex at home. She has had improvement in her symptoms overnight however states still has cellulitis Acute on Chronic Hypoxemic Resp. Failure- improving - currently 96% on 3 L which is her home rx - Bipap overnight Acute on Chronic Diastolic CHF Cor pulmonale Pulmonary hypertension - Last Echo 07/2015 : Hyperdynamic LV Systolic dysfunction,EF > 70% LV Diastolic dysfunction, Mild RV systolic/diastolic dysfunction,mild tricuspid regurg. Moderate pul HTN - will hold off repeat for now - increase Bumex to home dose 3 mg bid IV- improving - elevate legs throughout the day - I and O - Daily weights - Follow renal function and electrolytes - ok to downgrade to medsurg Obesity Hypoventilation syndrome resulting in cor pulmonale - continue bipap. - on belviq at home for weight loss - held here Acute on chronic COPD exacerbation - PFT 2012 reflective of mod obs pattern ( emphysema) - PRN Duonebs - continue advair and spiriva - prednisone 15 mg daily- home dose - on prednisone chronically and as per Dr Chávez notes has been hesitant to agree to start a wean Diabetes Mellitus Type II -Continue to Monitor PRP - Glycemic Consult Chronic LE Cellulitis- improving - followed by Infectious Disease in the outpt - IV Teflaro - improving - consider PO transition tomorrow? - wound consult - will arrange for close ID outpt follow up CKD - Cr 2.0 ( within baseline range 1.3- 2.8) - Continue to follow PRP -Nephrology consulted- appreciate input Hypertension - Continue home dose Toprol, Verapamil, Hyperlipidemia - Continue home dose Lipitor 40 mg daily DVT Prophylaxis - Heparin 5000 q8 Resuscitation -DNR Dispo: PT/OT Continued [facility] stay due to: multiple IV medications needed Discharge planning: home Reviewed: Pt Seen/Exam by Me History leg swelling better today. urinated a lot Constitutional: denies: fever Respiratory: negative: short of breath Cardiovascular: denies chest pain General Appearance: no apparent distress (sitting in chair. ), obese Respiratory: lungs clear, no respiratory distress Cardiovascular: regular rate, rhythm Extremities: other (legs with chronic venous stasis. skin more purplish today and less erythema - likely sec to diuresis) 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: alert, oriented x 3 Assessment/Plan I have reviewed the medical record and performed a history and physical examination of this patient today. I have discussed the case with Dr Rodrigues. The above note reflects my findings, conclusions, and recommendations.
--- NOTE | 2016-05-07 13:16 | Medical Student: [facility] ---
Med Student Progress Note Date of Service May 07, 2016. Subjective Pt evaluation today including: conversation w/ patient Voiding: no voiding problems Mrs. Gaytan is a 60 year old female with past medical history significant for cor pulmonale, COPD, obesity, CKD stage III, HTN, and type 2 DM being treated for acute on chronic respiratory failure and renal failure. Per RN no acute events overnight. No events on telemetry. Patient in normal sinus rhythm. Patient states she is feeling better. Notes shortness of breath and swelling have improved. States she has good appetite and was able to sleep well during the night in recliner with bipap. Describes able to ambulate without trouble. States making urine. Denies dysuria, urgency, fever, chills, chest pain, palpitations, nausea, vomiting. Review of Systems Constitutional: No chills, No fatigue, No fever Respiratory: + dyspnea on exertion, No cough, No dyspnea at rest, No shortness of breath, No sputum, No wheezing Cardiac: + edema, No chest pain, No palpitations Abdomen: No constipation, No diarrhea, No nausea, No pain, No vomiting Musculoskeletal: + swelling, No calf pain Female : No dysuria, No hematuria, No incontinence, No urinary frequency Neurologic: No numbness/tingling Endo: No excessive thirst, No excessive urination Objective Vital Signs Date Time Temp Pulse Resp B/P Pulse Ox O2 Delivery O2 Flow Rate FiO2 05/07/16 11:46 73 18 94 Nasal Cannula 3.0 05/07/16 11:05 36.2 70 20 193/74 91 Nasal Cannula 3.0 160/73 05/07/16 10:18 36.5 65 20 95 3.0 05/07/16 08:00 Nasal Cannula 3.0 05/07/16 07:35 36.5 65 20 185/75 95 Nasal Cannula 3.0 05/07/16 07:06 89 18 96 Nasal Cannula 3.0 05/07/16 04:04 36.5 84 19 145/70 97 CPAP 05/07/16 04:00 Nasal Cannula 3.0 05/07/16 00:16 81 93 3.0 05/07/16 00:00 Nasal Cannula 3.0 05/06/16 23:32 36.8 85 20 150/75 97 Nasal Cannula 3.0 05/06/16 20:00 Nasal Cannula 3.0 05/06/16 19:44 76 18 95 Nasal Cannula 3.0 05/06/16 19:20 36.8 87 22 155/75 93 Nasal Cannula 4.0 05/06/16 16:02 80 93 05/06/16 16:00 Nasal Cannula 3.0 05/06/16 15:18 78 18 96 Nasal Cannula 3.0 05/06/16 15:01 36.7 80 20 135/72 94 Nasal Cannula 4.0 Physical Exam General Appearance: WD/WN, no apparent distress (resting comfortably in recliner with oxygen) Neck: supple, no adenopathy, no JVD, no carotid bruits Respiratory/Chest: lungs clear, no respiratory distress, no accessory muscle use, + decreased breath sounds (bibasilar) Cardiovascular: regular rate, rhythm, no gallop, no JVD, no murmur Abdomen: normal bowel sounds, soft, + distended Extremities: + pertinent finding (b/l lower extremities: erythematous, scaly, warm to touch, 1+ edema) 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: alert, normal mood/affect, oriented x 3 Laboratory Results Last 24 Hours Test 05/06/16 16:12 05/06/16 20:19 05/07/16 06:29 05/07/16 08:15 Bedside Glucose 158 mg/dl 179 mg/dl 159 mg/dl Sodium Level 136 mmol/L Potassium Level 4.1 mmol/L Chloride Level 93 mmol/L Carbon Dioxide Level 34 mmol/L Anion Gap 9.0 mmol/L Blood Urea Nitrogen 55 mg/dl Creatinine 2.00 mg/dl Est Creatinine Clear Calc Drug Dose 43.2 ml/min Estimated GFR () 30.2 Estimated GFR (Non- 26.1 BUN/Creatinine Ratio 27.3 Random Glucose 206 mg/dl Calcium Level 9.9 mg/dl Test 05/07/16 11:38 Bedside Glucose 171 mg/dl Medications Current Inpatient Medications Medications (Trade) Dose Ordered Sig/Duyen Route Start Time Stop Time Status Last Admin Dose Admin Heparin Sodium (Porcine) (Heparin Sq 5000 Unit/0.5ml) 5,000 unit Q8@0000,0800,1600 SQ 05/05/16 16:00 06/04/16 15:59 05/07/16 08:09 5,000 UNIT Acetaminophen (Tylenol Tab) 650 mg Q4H PRN PO 05/05/16 14:00 06/04/16 13:59 05/06/16 22:07 650 MG Al Hydrox/Mg Hydrox/Simethicone (Maalox Max Susp) 15 ml Q4H PRN PO 05/05/16 14:00 06/04/16 13:59 Magnesium Hydroxide (Milk Of Magnesia Susp) 30 ml Q12H PRN PO 05/05/16 14:00 06/04/16 13:59 Ondansetron HCl (Zofran Inj) 4 mg Q6H PRN IV 05/05/16 14:00 06/04/16 13:59 Polyethylene (Miralax Powder Packet) 17 gm DAILY PRN PO 05/05/16 14:00 06/04/16 13:59 Albuterol/ Ipratropium (Duoneb) 3 ml QIDR INH 05/05/16 16:00 06/04/16 15:59 05/07/16 11:46 3 ML Miscellaneous Information (Consult Glycemic Management Pharmacy) 1 ea UD PRN N/A 05/05/16 15:48 06/04/16 15:47 Allopurinol (Zyloprim Tab) 100 mg DAILY PO 05/06/16 09:00 06/05/16 08:59 05/07/16 08:04 100 MG Atorvastatin Calcium (Lipitor Tab) 40 mg DAILY PO 05/06/16 09:00 06/05/16 08:59 05/07/16 08:03 40 MG Metoprolol Succinate (Toprol Xl Tab) 150 mg DAILY PO 05/06/16 09:00 06/05/16 08:59 05/07/16 08:04 150 MG Pregabalin (Lyrica Cap) 150 mg TID PO 05/05/16 21:00 06/04/16 20:59 05/07/16 08:11 150 MG Pyridoxine HCl (Vitamin B-6 Tab) 200 mg DAILY PO 05/06/16 09:00 06/05/16 08:59 05/07/16 08:03 200 MG Spironolactone (Aldactone Tab) 50 mg BID17 PO 05/05/16 17:00 06/04/16 16:59 05/07/16 08:04 50 MG Verapamil HCl (Calan-Sr Tab) 240 mg DAILY PO 05/06/16 09:00 06/05/16 08:59 05/07/16 08:04 240 MG Salmeterol Xinafoate/ Fluticasone (Advair Diskus 500/50 Inh) 1 puff BID INH 05/05/16 21:00 06/04/16 20:59 05/07/16 08:03 1 PUFF Insulin Aspart (novoLOG ASPART) SLIDING SCALE ACHS SQ 05/05/16 16:15 06/04/16 16:14 05/07/16 12:18 36 UNITS Multivitamins/ Minerals (Multivitamin W/ Minerals Tab) 1 tab DAILY PO 05/06/16 09:00 06/05/16 08:59 05/07/16 08:04 1 TAB Prednisone (PredniSONE TAB) 15 mg QAM PO 05/06/16 09:00 06/05/16 08:59 05/07/16 08:03 15 MG Tiotropium [place] (Spiriva Handihaler Inhaler) 1 puff BID INH 05/05/16 21:00 06/04/16 20:59 05/07/16 08:02 1 PUFF Insulin Glargine SEE PROTOCOL BID SQ 05/05/16 21:00 06/04/16 20:59 05/07/16 08:08 60 UNIT Bumetanide 3 mg/ Syringe 12 ml @ 4 mls/min BID17 IV 05/06/16 17:00 06/05/16 16:59 05/07/16 08:04 4 MLS/MIN Ceftaroline Fosamil/Sodium Chloride (Teflaro Inj/Nss 250ml) 263.3333 ml @ 270 mls/hr Q12@0200,1400 IV 05/06/16 14:00 05/16/16 13:59 05/07/16 02:20 270 MLS/HR Miscellaneous Information (Pharmacy Consult) 1 ea UD PRN N/A 05/06/16 13:15 06/05/16 13:14 Assessment and Plan Assessment and Plan: Mrs. Gaytan is a 60 year old female with past medical history significant for cor pulmonale, OHS, COPD, obesity, CKD stage III, hypertension, type 2 DM who is being treated for acute respiratory failure and renal failure. 1. Acute Respiratory Failure - Failure is likely due to acute exacerbation of cor pulmonale. Trigger of exacerbation unclear. Patient denied recent illness. Diet change, noncompliance, or inadequate medication dosing are still possibility. Oxygen saturation was 96% this morning on 3 L oxygen. Patient is on 3L at home continuously. Should be cautious of high O2 saturation so not to diminish respiratory drive secondary to COPD and chronic hypercapnia. -Consider weaning oxygen to 2 L to keep oxygen saturation in 88- low 90s -Continue to follow oxygen saturation -Continue DuoNebs PRN. -Continue use of bipap at night 2. Acute on Chronic Cor Pulmonale - Last ECHO (07/15) revealed class I diastolic dysfunction, elevated RV pressures. Acute exacerbation and fluid overload most likely due to salt consumption or missing doses of medications or inadequate medication dosing. Leg and abdomen edema as well as bibasilar crackles on exam are suggestive of fluid overload. Chest xray also revealed pulmonary congestion. Patient weight decreased from 154.4 to 149.1 kg. Potassium level stable at 4.0 - Continue IV Bumex daily 3mg BID - Continue spironolactone 150 mg BID, Verapamil 240 mg daily, and Toprol XL 150 mg daily - Monitor input and output levels - Continue daily weights - Continue to have recliner for patient to sleep - Continue salt restriction diet and fluid restriction - If patient's symptoms worsen consider repeat echo - Continue to follow electrolytes, renal function - Consider Potassium supplement if patient becomes hypokalemic 3. Chronic COPD - May be contributing to shortness of breath. On exam patient has decreased lung sounds b/l lower and mid lung rain. Patient denies cough/ sputum production. Does not explain patient's fluid overload status. Patient has history of co2 retention. Bicarbonate stable at 34 today. Oxygen saturation today 96% on 3 L. - Continue weaning oxygen to 2L to aim for oxygen saturation in 88-low 90s - Continue use of bipap at night - Continue prednisone 15 mg daily - Continue nebulizers PRN - Continue Advair and Spiriva inhalers - Continue to monitor bicarbonate levels - Encourage formal PFT testing upon discharge 4. Chronic Kidney Disease, Stage III - Creatinine level stable at 2.0 today, down from 2.1 on admision. Patient's baseline is 1.7. Increase was likely due to fluid overload status due to likely cor pulmonale exacerbation rather than direct kidney source. - Continue to monitor creatinine levels - Appreciate nephrology recommendation - Avoid nephrotoxic drugs - Renally dose all medications 5. Bilateral Lower Extremity Cellulitis - On exam patient has signs of continued cellulitis infection. Patient is currently undergoing antibiotic treatment. She is followed by Gabriella Tong, Infectious Disease. Cellulitis appears mildly worse with increase in erythema and swelling. No fever, increase in pain. - Appreciate ID recommendations - Discontinue doxycycline 100 mg BID and Augmentin 875 mg BID daily - Start Teflaro 400 mg q12 6. Mixed metabolic alkalosis/respiratory acidosis - ABG yesterday revealed pH of 7.41, pCO2 of 62, pO2 80, and HCO3 39. Metabolic alkalosis likely due to diuresis. Respiratory acidosis likely due to chronic carbon dioxide retention. - Continue oxygen and bipap at night 7. Obesity - Likely contributing to co2 retention. Bicarbonate level stable at 34 today, 40on admission Patient is currently seeing weight management for weight loss. - Continue BIPAP at night - Hold Belviq for now until patient stabilizes - Follow bicarbonate levels 8. Hypertension - Patient's blood pressure stable in 140s/70s. Increase was likely due to shortness of breath and anxiety. Blood pressure is still mildly elevated, it is possible blood pressure is not well controlled on current medications. - Continue to monitor blood pressure - Continue Bumex IV , Verapamil 240 mg daily, Toprol XL 150 mg daily, and Spironolactone 150 mg BID 9. Type 2 Diabetes - Patient's blood sugar was 159 this morning. Most recent hemoglobin A1C was 6.1. Goal blood sugar should be between 110-150. - Continue NovoLog and Lantus - Continue to monitor blood sugars 10. Dyslipidemia - Current lipid levels unknown. Last available level from 2014 revealed triglycerides at 247, HDL at 36, and LDL at 73. - Continue Lipitor 40 mg daily - Encourage follow up with PCP upon discharge to address triglycerides 11. DVT Prophylaxis - Patient was not on anticoagulants upon admission and does not have a history of bleeding problems. Patient has renal disease so would not consider low molecular weight heparin for anticoagulation. - Start Heparin 5000 Units subcutaneous TID - Monitor platelet levels for signs of heparin induced thrombocytopenia 12. Disposition - Continue to monitor patient at this time. Plan for discharge home under care of once stable. Continued [facility] stay due to: multiple IV medications needed Discharge planning: home
--- NOTE | 2016-05-07 16:39 | Infectious Disease Progress Nt ---
Progress Note Date of Service May 07, 2016. Subjective Pt evaluation today including: conversation w/ patient, physical exam, chart review, lab review, review of studies, review of inpatient medication list WBC count today was 8.39. Wound culture is growing GNB. She is tolerating Teflaro well. Creatinine is 2.00 today. She is feeling much improved and hoping to go home before the weekend. She continues to have some mild drainage from the wound on her right lower extremity. All Other Systems: Reviewed and Negative Medications Current Inpatient Medications Medications (Trade) Dose Ordered Sig/Duyen Route Start Time Stop Time Status Last Admin Dose Admin Heparin Sodium (Porcine) (Heparin Sq 5000 Unit/0.5ml) 5,000 unit Q8@0000,0800,1600 SQ 05/05/16 16:00 06/04/16 15:59 05/07/16 08:09 5,000 UNIT Acetaminophen (Tylenol Tab) 650 mg Q4H PRN PO 05/05/16 14:00 06/04/16 13:59 05/06/16 22:07 650 MG Al Hydrox/Mg Hydrox/Simethicone (Maalox Max Susp) 15 ml Q4H PRN PO 05/05/16 14:00 06/04/16 13:59 Magnesium Hydroxide (Milk Of Magnesia Susp) 30 ml Q12H PRN PO 05/05/16 14:00 06/04/16 13:59 Ondansetron HCl (Zofran Inj) 4 mg Q6H PRN IV 05/05/16 14:00 06/04/16 13:59 Polyethylene (Miralax Powder Packet) 17 gm DAILY PRN PO 05/05/16 14:00 06/04/16 13:59 Albuterol/ Ipratropium (Duoneb) 3 ml QIDR INH 05/05/16 16:00 06/04/16 15:59 05/07/16 15:43 3 ML Miscellaneous Information (Consult Glycemic Management Pharmacy) 1 ea UD PRN N/A 05/05/16 15:48 06/04/16 15:47 Allopurinol (Zyloprim Tab) 100 mg DAILY PO 05/06/16 09:00 06/05/16 08:59 05/07/16 08:04 100 MG Atorvastatin Calcium (Lipitor Tab) 40 mg DAILY PO 05/06/16 09:00 06/05/16 08:59 05/07/16 08:03 40 MG Metoprolol Succinate (Toprol Xl Tab) 150 mg DAILY PO 05/06/16 09:00 06/05/16 08:59 05/07/16 08:04 150 MG Pregabalin (Lyrica Cap) 150 mg TID PO 05/05/16 21:00 06/04/16 20:59 05/07/16 13:48 150 MG Pyridoxine HCl (Vitamin B-6 Tab) 200 mg DAILY PO 05/06/16 09:00 06/05/16 08:59 05/07/16 08:03 200 MG Spironolactone (Aldactone Tab) 50 mg BID17 PO 05/05/16 17:00 06/04/16 16:59 05/07/16 08:04 50 MG Verapamil HCl (Calan-Sr Tab) 240 mg DAILY PO 05/06/16 09:00 06/05/16 08:59 05/07/16 08:04 240 MG Salmeterol Xinafoate/ Fluticasone (Advair Diskus 500/50 Inh) 1 puff BID INH 05/05/16 21:00 06/04/16 20:59 05/07/16 08:03 1 PUFF Insulin Aspart (novoLOG ASPART) SLIDING SCALE ACHS SQ 05/05/16 16:15 06/04/16 16:14 05/07/16 12:18 36 UNITS Multivitamins/ Minerals (Multivitamin W/ Minerals Tab) 1 tab DAILY PO 05/06/16 09:00 06/05/16 08:59 05/07/16 08:04 1 TAB Prednisone (PredniSONE TAB) 15 mg QAM PO 05/06/16 09:00 06/05/16 08:59 05/07/16 08:03 15 MG Tiotropium [place] (Spiriva Handihaler Inhaler) 1 puff BID INH 05/05/16 21:00 06/04/16 20:59 05/07/16 08:02 1 PUFF Insulin Glargine SEE PROTOCOL BID SQ 05/05/16 21:00 06/04/16 20:59 05/07/16 08:08 60 UNIT Bumetanide 3 mg/ Syringe 12 ml @ 4 mls/min BID17 IV 05/06/16 17:00 06/05/16 16:59 3/8/17 08:04 4 MLS/MIN Ceftaroline Fosamil/Sodium Chloride (Teflaro Inj/Nss 250ml) 263.3333 ml @ 270 mls/hr Q12@0200,1400 IV 05/06/16 14:00 05/16/16 13:59 05/07/16 13:48 270 MLS/HR Miscellaneous Information (Pharmacy Consult) 1 ea UD PRN N/A 05/06/16 13:15 06/05/16 13:14 Objective Vital Signs Date Time Temp Pulse Resp B/P Pulse Ox O2 Delivery O2 Flow Rate FiO2 05/07/16 15:43 74 18 94 Nasal Cannula 3.0 05/07/16 15:08 36.8 86 20 178/69 92 Nasal Cannula 3.0 05/07/16 12:00 Nasal Cannula 3.0 05/07/16 11:46 73 18 94 Nasal Cannula 3.0 05/07/16 11:05 36.2 70 20 193/74 91 Nasal Cannula 3.0 160/73 05/07/16 10:18 36.5 65 20 95 3.0 05/07/16 08:00 Nasal Cannula 3.0 05/07/16 07:35 36.5 65 20 185/75 95 Nasal Cannula 3.0 05/07/16 07:06 89 18 96 Nasal Cannula 3.0 05/07/16 04:04 36.5 84 19 145/70 97 CPAP 05/07/16 04:00 Nasal Cannula 3.0 05/07/16 00:16 81 93 3.0 05/07/16 00:00 Nasal Cannula 3.0 05/06/16 23:32 36.8 85 20 150/75 97 Nasal Cannula 3.0 05/06/16 20:00 Nasal Cannula 3.0 05/06/16 19:44 76 18 95 Nasal Cannula 3.0 05/06/16 19:20 36.8 87 22 155/75 93 Nasal Cannula 4.0 Physical Exam General Appearance: no apparent distress, + obese Eyes: normal inspection, sclerae normal ENT: hearing grossly normal Neck: supple, trachea midline Respiratory/Chest: no respiratory distress, no accessory muscle use, + pertinent finding (nasal cannula O2 in place) Cardiovascular: regular rate, rhythm Extremities: + swelling (1+ pitting edema of the b/l lower extremities. Continued drainage from right lower extremity wound.) 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: alert, normal mood/affect Skin: warm/dry, + pertinent finding (continued moderate erythema of the bilateral lower extremities. Less warmth today) Laboratory Results . Item Value Date Time Gram Stain - Final Resulted 05/06/16 1400 Ulcer Leg Lower Left Last 24 Hours Test 05/06/16 20:19 05/07/16 06:29 05/07/16 08:15 05/07/16 11:38 Bedside Glucose 179 mg/dl 159 mg/dl 171 mg/dl Sodium Level 136 mmol/L Potassium Level 4.1 mmol/L Chloride Level 93 mmol/L Carbon Dioxide Level 34 mmol/L Anion Gap 9.0 mmol/L Blood Urea Nitrogen 55 mg/dl Creatinine 2.00 mg/dl Est Creatinine Clear Calc Drug Dose 43.2 ml/min Estimated GFR () 30.2 Estimated GFR (Non- 26.1 BUN/Creatinine Ratio 27.3 Random Glucose 206 mg/dl Calcium Level 9.9 mg/dl Test 05/07/16 16:04 Bedside Glucose 167 mg/dl Assessment and Plan Patient appears to be fluid overloaded with acute on chronic respiratory failure with chronic recurrent bilateral lower extremity cellulitis. She is tolerating Teflaro well. Will continue this medication pending culture result. Feel that she likely will benefit from at least 1-2 more days of IV therapy. Will likely transition to PO therapy pending culture. We will follow. Case reviewed and agree with above assessment,
[2016-05-08 00:23] VITALS: BP 176/65; PULSE 97; TEMP 36.4; O2SAT 92
[2016-05-08] MEDS: SODIUM CHLORIDE 0.9% IV SCH (02:24)
[2016-05-08] MEDS: CEFTAROLINE FOSAMIL IV SCH (02:24)
[2016-05-08 05:35] LABS: HEMATOCRIT 31.8 % (37-47); MEAN CELL VOLUME 97.2 fL (80-100); MEAN CORPUSCULAR HEMOGLOBIN 30.9 pg (25-34); MEAN CORPUSCULAR HGB CONC 31.8 g/dl (32-36); MEAN PLATELET VOLUME 10.3 fL (7.4-10.4); PLATELET COUNT 200 K/uL (130-400); RED BLOOD COUNT 3.27 M/uL (4.2-5.4); WHITE BLOOD COUNT 8.94 K/uL (4.8-10.8)
[2016-05-08 06:06] LABS: FERRITIN 64.6 ng/ml (8.0-388.0)
[2016-05-08 07:04] VITALS: BP 141/61; PULSE 75; TEMP 36.3; O2SAT 93
[2016-05-08] MEDS: ALBUT/IPRATROP 3MG/0.5MG NEB 3 ML VIAL INH SCH ×2 (07:08→12:00)
[2016-05-08 07:10] VITALS: PULSE 88; O2SAT 96
[2016-05-08] MEDS: ALLOPURINOL 100 MG TAB PO SCH (07:33)
[2016-05-08] MEDS: METOPROLOL SUCC 50MG EXT REL TAB PO SCH (07:35)
[2016-05-08] MEDS: PYRIDOXINE HCL 50 MG TAB PO SCH (07:35)
[2016-05-08] MEDS: ATORVASTATIN 40 MG TAB PO SCH (07:35)
[2016-05-08] MEDS: CEROVITE ADV FORMULA TAB PO SCH (07:36)
[2016-05-08] MEDS: VERAPAMIL HCL 240 MG TABCR PO SCH (07:36)
[2016-05-08] MEDS: SPIRONOLACTONE 25 MG TAB PO SCH (07:37)
[2016-05-08] MEDS: FLUTICASONE/SALMETEROL (ADVAIR) 500/50 INH 14 PUFF INH SCH (07:39)
[2016-05-08] MEDS: PREGABALIN 150 MG CAP PO SCH (07:42)
[2016-05-08] MEDS: INSULIN GLARGINE SQ SCH (07:43)
[2016-05-08 07:47] LABS: BUN/CREATININE RATIO 23.4 (10-20); CALCIUM 9.7 mg/dl (8.5-10.1); CREATININE 2.1 mg/dl (0.60-1.20); POTASSIUM 4.2 mmol/L (3.5-5.1)
[2016-05-08] MEDS: HEPARIN SOD 5000 UNIT/0.5 ML CARP SQ SCH (07:47)
[2016-05-08] MEDS ORDERED: TIOTROPIUM BROMIDE 5 PUFF/90 MCG INH INH SCH (08:00)
[2016-05-08] MEDS: INSULIN ASPART 100 UNITS/ML VIAL SQ SCH ×2 (08:54→12:30)
[2016-05-08] MEDS: BUMETANIDE IV 3 MG in SYRINGE 0 ML IV SCH (08:56)
[2016-05-08] MEDS ORDERED: CPR500 PO (09:30)
[2016-05-08] MEDS ORDERED: CIPROFLOXACIN 500 MG TAB PO SCH (10:00)
--- NOTE | 2016-05-08 10:18 | Discharge Instructions ---
Discharge Instructions Date of Service May 08, 2016. Admission Reason for Admission: Dyspnea, Edema Discharge Discharge Diagnosis / Problem: CHF exacerbation Discharge Goals Goal(s): Diagnostic testing, Therapeutic intervention Activity Recommendations Activity Limitations: resume your previous activity Exercise/Sports Limitations: none Shower/Bathe: no limitations . Instructions / Follow-Up Instructions / Follow-Up You were admitted to the hospital because of worsening SOB, swelling of the extremities and worsening cellulitis. We had you continue your home dose of the Bumex with did held pull a lot of the fluid and reduced the swelling while you were in house. We would like you to continue this medication as prescribed. Also remember to continue trying to elevate your legs throughout the day to help with the swelling. Dr. Thompson was the radiation therapy technologist that worked with you in house and will be letting Dr Neri know about the admission. With regards to your cellulitis we did change your home doxy and augmentin to an IV medication called Teflaro. Once we received a culture result from the wound and it was sensitive to all the antibiotics tested you were changed to oral Cipro. We would like you to follow up with your PCP and ID in the coming week. 1. Continue Bumex 3 mg twice a day 2. Follow up with Dr Neri 3. continue your home COPD inhaler as prescribed 4. Continue the Cipro 500 mg bid x 10 days - Follow up with Jory box 5. Follow up with your PCP this week Current Hospital Diet Patient's current hospital diet: AHA Diet (Heart Healthy), Diabetes Type 2 Diet Discharge Diet Recommended Diet: AHA Diet (Heart Healthy), Low Sodium Diet (2gm Na) Pending Studies Studies pending at discharge: no Laboratory Results Hemoglobin A1c Test 02/13/16 11:37 Range/Units Estimated Average Glucose 131 mg/dl Hemoglobin A1c 6.2 H 4.5-5.6 % Medical Emergencies . Who to Call and When: Medical Emergencies: If at any time you feel your situation is an emergency, please call 911 immediately. . Non-Emergent Contact Non-Emergency issues call your: Primary Care Provider Call Non-Emergent contact if: you have a fever, your pain is worsening, your pain is unusual for you . . "Provider Documentation" section prepared by Mariaelena Rodrigues. VTE Core Measure Inpt VTE Proph given/why not?: Unfractionated heparin SQ
--- NOTE | 2016-05-08 10:33 | Infectious Disease Progress Nt ---
Progress Note Date of Service May 08, 2016. 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 w/ career development consultant (Dr. Rodrigues), review of inpatient medication list WBC count this morning was 8.94. Creatinine was 2.10. Wound culture is growing pansensitive Pseudomonas. The patient is currently on IV Ceftaroline. She is feeling well. Feels that she is improving. She is fatigued today because she didn't sleep much last night. She is hoping to go home. All Other Systems: Reviewed and Negative Medications Current Inpatient Medications Medications (Trade) Dose Ordered Sig/Duyen Route Start Time Stop Time Status Last Admin Dose Admin Heparin Sodium (Porcine) (Heparin Sq 5000 Unit/0.5ml) 5,000 unit Q8@0000,0800,1600 SQ 05/05/16 16:00 06/04/16 15:59 05/08/16 07:47 5,000 UNIT Acetaminophen (Tylenol Tab) 650 mg Q4H PRN PO 05/05/16 14:00 06/04/16 13:59 05/06/16 22:07 650 MG Al Hydrox/Mg Hydrox/Simethicone (Maalox Max Susp) 15 ml Q4H PRN PO 05/05/16 14:00 06/04/16 13:59 Magnesium Hydroxide (Milk Of Magnesia Susp) 30 ml Q12H PRN PO 05/05/16 14:00 06/04/16 13:59 Ondansetron HCl (Zofran Inj) 4 mg Q6H PRN IV 05/05/16 14:00 06/04/16 13:59 Polyethylene (Miralax Powder Packet) 17 gm DAILY PRN PO 05/05/16 14:00 06/04/16 13:59 Albuterol/ Ipratropium (Duoneb) 3 ml QIDR INH 05/05/16 16:00 06/04/16 15:59 05/08/16 07:08 3 ML Miscellaneous Information (Consult Glycemic Management Pharmacy) 1 ea UD PRN N/A 05/05/16 15:48 06/04/16 15:47 Allopurinol (Zyloprim Tab) 100 mg DAILY PO 05/06/16 09:00 06/05/16 08:59 05/08/16 07:33 100 MG Atorvastatin Calcium (Lipitor Tab) 40 mg DAILY PO 05/06/16 09:00 06/05/16 08:59 05/08/16 07:35 40 MG Metoprolol Succinate (Toprol Xl Tab) 150 mg DAILY PO 05/06/16 09:00 06/05/16 08:59 05/08/16 07:35 150 MG Pregabalin (Lyrica Cap) 150 mg TID PO 05/05/16 21:00 06/04/16 20:59 05/08/16 07:42 150 MG Pyridoxine HCl (Vitamin B-6 Tab) 200 mg DAILY PO 05/06/16 09:00 06/05/16 08:59 05/08/16 07:35 200 MG Spironolactone (Aldactone Tab) 50 mg BID17 PO 05/05/16 17:00 06/04/16 16:59 05/08/16 07:37 50 MG Verapamil HCl (Calan-Sr Tab) 240 mg DAILY PO 05/06/16 09:00 06/05/16 08:59 05/08/16 07:36 240 MG Salmeterol Xinafoate/ Fluticasone (Advair Diskus 500/50 Inh) 1 puff BID INH 05/05/16 21:00 06/04/16 20:59 05/08/16 07:39 1 PUFF Insulin Aspart (novoLOG ASPART) SLIDING SCALE ACHS SQ 05/05/16 16:15 06/04/16 16:14 05/08/16 08:54 34 UNITS Multivitamins/ Minerals (Multivitamin W/ Minerals Tab) 1 tab DAILY PO 05/06/16 09:00 06/05/16 08:59 05/08/16 07:36 1 TAB Prednisone (PredniSONE TAB) 15 mg QAM PO 05/06/16 09:00 06/05/16 08:59 05/08/16 07:33 15 MG Insulin Glargine SEE PROTOCOL BID SQ 05/05/16 21:00 06/04/16 20:59 05/08/16 07:43 70 UNIT Bumetanide/Syringe (Bumex IV/ Syringe) 12 ml @ 4 mls/min BID17 IV 05/06/16 17:00 06/05/16 16:59 05/08/16 08:56 4 MLS/MIN Tiotropium [place] (Spiriva Handihaler Inhaler) 1 puff DAILY INH 05/08/16 08:00 06/07/16 07:59 05/08/16 07:38 1 PUFF Ciprofloxacin (Cipro Tab) 500 mg BID PO 05/08/16 10:00 05/18/16 09:59 05/08/16 10:05 500 MG Objective Vital Signs Date Time Temp Pulse Resp B/P Pulse Ox O2 Delivery O2 Flow Rate FiO2 05/08/16 08:00 Nasal Cannula 3.0 05/08/16 07:10 88 18 96 Nasal Cannula 3.0 05/08/16 07:04 36.3 75 20 141/61 93 3.0 05/08/16 00:23 36.4 97 20 176/65 92 3.0 05/08/16 00:00 Nasal Cannula 3.0 05/07/16 23:54 68 94 4.0 05/07/16 19:06 82 18 96 Nasal Cannula 3.0 05/07/16 16:00 Nasal Cannula 3.0 05/07/16 15:43 74 18 94 Nasal Cannula 3.0 05/07/16 15:08 36.8 86 20 178/69 92 Nasal Cannula 3.0 05/07/16 12:00 Nasal Cannula 3.0 05/07/16 11:46 73 18 94 Nasal Cannula 3.0 05/07/16 11:05 36.2 70 20 193/74 91 Nasal Cannula 3.0 160/73 Physical Exam General Appearance: no apparent distress, + obese Eyes: normal inspection, sclerae normal ENT: hearing grossly normal Neck: supple, trachea midline Respiratory/Chest: no respiratory distress, + pertinent finding (nasal cannula O2 in place) Cardiovascular: regular rate, rhythm Extremities: + swelling (1+ pitting edema b/l LE. ) 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: alert, normal mood/affect, oriented x 3 Skin: warm/dry, no rash, + pertinent finding (Continued mild to moderate erythema of the bilateral lower extremities. Warmth is less today. Continued mild drainage from left lower extremity wound.) Laboratory Results RUN DATE: 05/08/16 [facility] LAB PAGE 1 RUN TIME: 701 Specimen Inquiry PATIENT: CRUZITO FLORES LOC: [id number] U # : [id number] AGE/SX: 60/F ROOM: [facility] REG : 05/05/[address]: Dejah Bañuelos M.D. : 1955 BED: 1 DIS : STATUS: ADM IN TLOC: SPEC #: [id number] CORNELIA: 05/06/16-1399 STATUS: RES REQ #: [id number] RECD: 05/06/[address]: Gabriella Tong , PAKadeemC SOURCE: ULCER ENTR: 05/06/[address]: Pavel Krishna MD , PhD SPDESC: LEG Emily Cedillo C.R.N.P Patterson, Jennifer., D.O. Roe, Zurdo Bloom Madhavi, M.D. ORDERED: SURF WND CU/SMR COMMENTS: Has Specimen Been Obtained/Collected? Y Procedure Result Verified Site GRAM STAIN Final 05/07/16-950 RESULT FEW WBCs SEEN RARE GRAM NEGATIVE BACILLI SURFACE WOUND CULTURE Preliminary 05/08/16-700 Organism 1 PSEUDOMONAS AERUGINOSA QUANITY MODERATE SENS SENSITIVITY TO FOLLOW 1. PSEUDOMONAS AERUGINOSA Target Route Dose RX AB Cost M.I.C. IQ ------ ----- ------ -- ------ -------- - ------ CEFTAZIDIME S 4 CEFEPIME S <=4 IMIPENEM S <=1 AZTREONAM S <=4 GENTAMICIN S <=4 TOBRAMYCIN S <=4 AMIKACIN S <=16 CIPROFLOXACIN S <=1 LEVOFLOXACIN S <=2 PIP/TAZO S <=16 S = SENSITIVE I = INTERMEDIATE R = RESISTANT Item Value Date Time Gram Stain - Final Resulted 05/06/16 1400 Ulcer Leg Lower Left Last 24 Hours Test 05/07/16 11:38 05/07/16 16:04 05/07/16 20:18 05/08/16 05:14 Bedside Glucose 171 mg/dl 167 mg/dl 169 mg/dl White Blood Count 8.94 K/uL Red Blood Count 3.27 M/uL Hemoglobin 10.1 g/dL Hematocrit 31.8 % Mean Corpuscular Volume 97.2 fL Mean Corpuscular Hemoglobin 30.9 pg Mean Corpuscular Hemoglobin Concent 31.8 g/dl RDW Standard Deviation 72.4 fL RDW Coefficient of Variation 20.3 % Platelet Count 200 K/uL Mean Platelet Volume 10.3 fL Nucleated RBC Absolute Count (auto) 0.07 K/uL Nucleated Red Blood Cells % 0.8 % Iron Level 54 mcg/dl Total Iron Binding Capacity 279 mcg/dl Transferrin 208 mg/dl Transferrin % Saturation 19 % Ferritin 64.6 ng/ml Test 05/08/16 07:10 05/08/16 07:16 Sodium Level 136 mmol/L Potassium Level 4.2 mmol/L Chloride Level 95 mmol/L Carbon Dioxide Level 36 mmol/L Anion Gap 5.0 mmol/L Blood Urea Nitrogen 49 mg/dl Creatinine 2.10 mg/dl Est Creatinine Clear Calc Drug Dose 41.1 ml/min Estimated GFR () 28.5 Estimated GFR (Non- 24.6 BUN/Creatinine Ratio 23.4 Random Glucose 195 mg/dl Calcium Level 9.7 mg/dl Bedside Glucose 196 mg/dl Assessment and Plan Patient with fluid overload and acute on chronic respiratory failure with chronic recurrent bilateral lower extremity cellulitis. She is tolerating Teflaro well. With pansensitive Pseudomonas in wound culture, will D/C Teflaro and start PO Cipro 500 mg BID. She likely will need at least 2 weeks of this abx therapy. She will need follow up with me next week. Otherwise once cleared by medical and nephro, patient OK for D/C from ID perspective. Thanks case reviewed and agree with above assessment.
--- NOTE | 2016-05-08 10:36 | Discharge Summary ---
Discharge Summary Date of Service May 08, 2016. (Mariaelena Rodrigues MD) Discharge Summary Admission Date: May 05, 2016 at 14:03 Discharge Date: May 08, 2016 Discharge Disposition: Home Principal Diagnosis: cellulitis Immunizations: Have You Had Influenza Vaccine: Yes Influenza Vaccine Date: Apr 15, 2012 History of Tetanus Vaccine?: No History of Pneumococcal: Yes Pneumococcal Date: Jan 13, 2013 History of Hepatitis B Vaccine: No (Mariaelena Rodrigues MD) Medication Reconciliation New Medications: Ciprofloxacin (Ciprofloxacin HCl) 500 Mg Tab 500 MG PO BID for 10 Days, #20 TAB Continued Medications: Allopurinol (Zyloprim) 100 Mg Tab 100 MG PO DAILY, TAB Ascorbic Acid (Vitamin C 500 mg) 1 Chw Chw 1000 MG PO DAILY Atorvastatin (Lipitor) 40 Mg Tab 40 MG PO DAILY, TAB Bumetanide (Bumetanide) 1 Mg Tab 3 MG PO BID17 for 30 Days, TAB 3 Refills Cholecalciferol (Vitamin D3) 1,000 Unit Tab 1000 UNITS PO DAILY for 90 Days, TAB 3 Refills Fluticasone Prop/Salmeterol (Advair Diskus 500/50 60 Dose) 1 Ea Aerp 1 PUFF INH BID, INHALER Hydrocodone/Acetaminophen 5MG/325MG ([place] 5MG/325MG) Tab 1-2 TABLET PO Q4H PRN for Pain, TAB PRN PAIN Insulin Aspart (Novolog Flexpen) 100 Units/Ml Inj 50 UNITS SQ W/BREAKFAST Insulin Aspart (Novolog Flexpen) 100 Units/Ml Inj 50 UNITS SQ W/LUNCH Insulin Aspart (Novolog Flexpen) 100 Units/Ml Inj 90 UNITS SQ W/SUPPER Insulin Aspart (Novolog Flexpen) 100 Units/Ml Inj 40 UNITS SQ HS Insulin Glargine (Toujeo Solostar) 300 Unit/Ml Inj 70 UNIT SQ TID, #14 Ipratropium-Albuterol (Duoneb) 3 Ml Nebu 1 TREATMENT INH Q6H PRN for SOB/Wheezing, INHA Lorcaserin Hcl (Belviq) 10 Mg Tab 10 MG PO BID, #60 Metoprolol Succ (Toprol Xl) (Toprol-Xl ) 100 Mg Tabcr 150 MG PO DAILY, TAB Multiple Vitamins W/ Minerals (One Daily For Women) 1 Tab Tab 1 TAB PO DAILY Prednisone (Prednisone) 10 Mg Tab 15 MG PO QAM, #45 Pregabalin (Lyrica) 150 Mg Cap 150 MG PO TID, CAP Pyridoxine (Vitamin B6) 100 Mg Tab 200 MG PO DAILY, TAB Spironolactone (Aldactone) 50 Mg Tab 50 MG PO BID, TAB Tiotropium [place] (Spiriva Handihaler) 30 Puff/540 Mcg Aerp 1 CAP INH DAILY, INHALER Verapamil HCl (Verapamil HCl ER) 240 Mg Tabcr 240 MG PO DAILY Vitamin E (Vitamin E) 400 Unit Tab 800 UNITS PO DAILY Discontinued Medications: Amoxicillin & Pot Clavulanate (Augmentin 875-125 mg) 1 Tab Tab 1 TAB PO BID, #14 TAB Doxycycline Hyclate (Vibramycin) 100 Mg Cap 100 MG PO BID, #30 Discharge Exam Cellulitis significantly improved, breathing is back to BL questions and concerns regarding care and discharge were addressed and patient agreeable to d/c Review of Systems: Constitutional: No fever Eyes: No worsening of vision ENT: No hearing loss Respiratory: No cough, No dyspnea at rest, No dyspnea on exertion, No shortness of breath, No sputum, No wheezing Cardiovascular: No chest pain Abdomen: No constipation, No diarrhea, No nausea, No pain, No vomiting Musculoskeletal: No joint pain, No muscle pain Genitourinary - Female: No dysuria, No hematuria Neurologic: No balance problems, No numbness/tingling, No weakness Endocrine: + fatigue Hematologic / Lymphatic: + problem reported Integumentary: + problem reported (improving cellulitis), No rash Physical Exam: General Appearance: WD/WN, no apparent distress, + obese Eyes: normal inspection ENT: normal ENT inspection Neck: supple Respiratory/Chest: lungs clear, normal breath sounds, no respiratory distress, no accessory muscle use, + decreased breath sounds (bilat bases) Cardiovascular: regular rate, rhythm, no murmur Abdomen / GI: normal bowel sounds, non tender, soft Extremities: normal inspection, + pedal edema (improvibng), + pertinent finding (improving cellulitis) 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: alert, normal mood/affect, oriented x 3 Skin: normal color, warm/dry, no rash Lymphatic: no adenopathy (Mariaelena Rodrigues MD) Review of Systems: Constitutional: No fever Respiratory: No shortness of breath Cardiovascular: + edema (improved), No chest pain Abdomen: No pain Physical Exam: General Appearance: no apparent distress (sitting in chair) Respiratory/Chest: lungs clear, no respiratory distress Cardiovascular: regular rate, rhythm 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: alert, oriented x 3 Skin: + pertinent finding (both lower legs with chronic venous stasis changes. erythema slightly improved. ) (Dejah Bañuelos M.D.) Hospital Course 60 yo F p/w Acute on Chronic Resp. Failure in setting of Hx of COPD on Bipap daily, Obesity Class I diastolic failure with gradual increasing LE edema while on Bumex at home. She was continued on her home dose of Bumex while in house which did help with the LE edema. She was also seen by both Dr Thompson, executive receptionist and Jory Tong for ID. She was changed from her home doxy/ augmentin to Teflaro. Once sensitivities of the wound returned patient was transitioned to Cipro 500 mg bid. Acute on Chronic Hypoxemic Resp. Failure- back to BL - currently 96% on 3 L which is her home rx - Bipap overnight Acute on Chronic Diastolic CHF - resolved Cor pulmonale Pulmonary hypertension - Last Echo 07/2015 : Hyperdynamic LV Systolic dysfunction,EF > 70% LV Diastolic dysfunction, Mild RV systolic/diastolic dysfunction,mild tricuspid regurg. Moderate pul HTN - Bumex 3 mg bid cont - elevate legs throughout the day Obesity Hypoventilation syndrome resulting in cor pulmonale - continue bipap. - on belviq at home for weight loss - held here, can restart Acute on chronic COPD exacerbation - PFT 2012 reflective of mod obs pattern ( emphysema) - continue advair and spiriva - prednisone 15 mg daily- home dose - on prednisone chronically and as per Dr Chávez notes has been hesitant to agree to start a wean Chronic LE Cellulitis- improving - IV Teflaro - changed to Cipro 500 mg bid x 10 days - ID outpt follow up CKD - Cr 2.0 - maintained while in house - nephrology outpt follow up Total Time Spent: Less than 30 minutes This includes examination of the patient, discharge planning, medication reconciliation, and communication with other providers. (Mariaelena Rodrigues MD) I have reviewed the medical record and performed a history and physical examination of this patient today. I have discussed the case with Dr. Rodrigues. The above note reflects my findings, conclusions, and recommendations. Total Time Spent: Greater than 30 minutes (35 min) (Dejah Bañuelos M.D.) Discharge Instructions Please refer to the electronic Patient Visit Report (Discharge Instructions) for additional information. (Mariaelena Rodrigues MD) Additional Copies To Emily Isaac C.R.N.P
[2016-05-08 10:49] VITALS: BP 141/61; PULSE 88; TEMP 36.3; O2SAT 96
--- NOTE | 2016-05-08 10:49 | Nephrology Progress Note ---
Nephrology Progress Note Date of Service May 08, 2016. Chief Complaint Acute on chronic renal insufficiency Subjective No acute events overnight. No complaints this morning. Hopeful to be discharged home. Notes improvement in edema. Activity tolerance reasonable. No fevers or chills. Review of Systems A complete review of systems was performed. Pertinent positives are noted above. All other systems are negative. Vital Signs Last 8 Hrs Date Time Temp Pulse Resp B/P Pulse Ox O2 Delivery O2 Flow Rate FiO2 05/08/16 08:00 Nasal Cannula 3.0 05/08/16 07:10 88 18 96 Nasal Cannula 3.0 05/08/16 07:04 36.3 75 20 141/61 93 3.0 I & O 24-Hour Column 05/08/16 08:00 Intake Total 1080 ml Output Total 3050 ml Balance -1970 ml Last Recorded Weight Weight (Kilograms): 149.100 Physical Exam General Appearance: no apparent distress, + obese Head: normocephalic, atraumatic Eyes: normal inspection, sclerae normal ENT: normal ENT inspection, pharynx normal, + pertinent finding (O2 NC) Neck: supple, + pertinent finding (thick and unable to appreciate JVP) Cardiovascular: regular rate, rhythm, no murmur Abdomen/GI: non tender, soft Extremities/Musculoskelatal: normal inspection, + pedal edema Neurologic/Psych: alert, oriented x 3 Family History Cancer Diabetes mellitus Gallbladder disease Heart disease Lung disease Social History Smoking Status: Former smoker Smokeless Tobacco Use: No Alcohol Use: none Drug Use: none Marital Status: Housing Status: lives with family Occupation: unemployed Laboratory Results Past 24 Hours 05/08/16 05:14 05/08/16 07:10 Test 05/07/16 11:38 05/07/16 16:04 05/07/16 20:18 05/08/16 05:14 Bedside Glucose 171 mg/dl (70-90) 167 mg/dl (70-90) 169 mg/dl (70-90) Red Blood Count 3.27 M/uL (4.2-5.4) Mean Corpuscular Volume 97.2 fL (80-100) Mean Corpuscular Hemoglobin 30.9 pg (25-34) Mean Corpuscular Hemoglobin Concent 31.8 g/dl (32-36) RDW Standard Deviation 72.4 fL (36.4-46.3) RDW Coefficient of Variation 20.3 % (11.5-14.5) Mean Platelet Volume 10.3 fL (7.4-10.4) Nucleated RBC Absolute Count (auto) 0.07 K/uL (0-0) Nucleated Red Blood Cells % 0.8 % Iron Level 54 mcg/dl (35-150) Total Iron Binding Capacity 279 mcg/dl (250-450) Transferrin 208 mg/dl (200-360) Transferrin % Saturation 19 % (15-50) Ferritin 64.6 ng/ml (8.0-388.0) Test 05/08/16 07:10 05/08/16 07:16 Anion Gap 5.0 mmol/L (3-11) Est Creatinine Clear Calc Drug Dose 41.1 ml/min Estimated GFR () 28.5 Estimated GFR (Non- 24.6 BUN/Creatinine Ratio 23.4 (10-20) Calcium Level 9.7 mg/dl (8.5-10.1) Bedside Glucose 196 mg/dl (70-90) Allergies Coded Allergies: Daptomycin (Verified Allergy, Mild, HIVES, 02/25/16) itching Codeine (Verified Allergy, Unknown, unknown, 02/25/16) has tolerated morphine Iodine (Verified Allergy, Unknown, 02/25/16) Shellfish (Verified Allergy, Unknown, 02/25/16) Sulfamethoxazole w/Trimethoprim (Verified Allergy, Unknown, RASH, 02/25/16 ) Medications Current Inpatient Medications Medications (Trade) Dose Ordered Sig/Duyen Route Start Time Stop Time Status Last Admin Dose Admin Heparin Sodium (Porcine) (Heparin Sq 5000 Unit/0.5ml) 5,000 unit Q8@0000,0800,1600 SQ 05/05/16 16:00 06/04/16 15:59 05/08/16 07:47 5,000 UNIT Acetaminophen (Tylenol Tab) 650 mg Q4H PRN PO 05/05/16 14:00 06/04/16 13:59 05/06/16 22:07 650 MG Al Hydrox/Mg Hydrox/Simethicone (Maalox Max Susp) 15 ml Q4H PRN PO 05/05/16 14:00 06/04/16 13:59 Magnesium Hydroxide (Milk Of Magnesia Susp) 30 ml Q12H PRN PO 05/05/16 14:00 06/04/16 13:59 Ondansetron HCl (Zofran Inj) 4 mg Q6H PRN IV 05/05/16 14:00 06/04/16 13:59 Polyethylene (Miralax Powder Packet) 17 gm DAILY PRN PO 05/05/16 14:00 06/04/16 13:59 Albuterol/ Ipratropium (Duoneb) 3 ml QIDR INH 05/05/16 16:00 06/04/16 15:59 05/08/16 07:08 3 ML Miscellaneous Information (Consult Glycemic Management Pharmacy) 1 ea UD PRN N/A 05/05/16 15:48 06/04/16 15:47 Allopurinol (Zyloprim Tab) 100 mg DAILY PO 05/06/16 09:00 06/05/16 08:59 05/08/16 07:33 100 MG Atorvastatin Calcium (Lipitor Tab) 40 mg DAILY PO 05/06/16 09:00 06/05/16 08:59 05/08/16 07:35 40 MG Metoprolol Succinate (Toprol Xl Tab) 150 mg DAILY PO 05/06/16 09:00 06/05/16 08:59 05/08/16 07:35 150 MG Pregabalin (Lyrica Cap) 150 mg TID PO 05/05/16 21:00 06/04/16 20:59 05/08/16 07:42 150 MG Pyridoxine HCl (Vitamin B-6 Tab) 200 mg DAILY PO 05/06/16 09:00 06/05/16 08:59 05/08/16 07:35 200 MG Spironolactone (Aldactone Tab) 50 mg BID17 PO 05/05/16 17:00 06/04/16 16:59 05/08/16 07:37 50 MG Verapamil HCl (Calan-Sr Tab) 240 mg DAILY PO 05/06/16 09:00 06/05/16 08:59 05/08/16 07:36 240 MG Salmeterol Xinafoate/ Fluticasone (Advair Diskus 500/50 Inh) 1 puff BID INH 05/05/16 21:00 06/04/16 20:59 05/08/16 07:39 1 PUFF Insulin Aspart (novoLOG ASPART) SLIDING SCALE ACHS SQ 05/05/16 16:15 06/04/16 16:14 05/08/16 08:54 34 UNITS Multivitamins/ Minerals (Multivitamin W/ Minerals Tab) 1 tab DAILY PO 05/06/16 09:00 06/05/16 08:59 05/08/16 07:36 1 TAB Prednisone (PredniSONE TAB) 15 mg QAM PO 05/06/16 09:00 06/05/16 08:59 05/08/16 07:33 15 MG Insulin Glargine SEE PROTOCOL BID SQ 05/05/16 21:00 06/04/16 20:59 05/08/16 07:43 70 UNIT Bumetanide/Syringe (Bumex IV/ Syringe) 12 ml @ 4 mls/min BID17 IV 05/06/16 17:00 06/05/16 16:59 05/08/16 08:56 4 MLS/MIN Tiotropium [place] (Spiriva Handihaler Inhaler) 1 puff DAILY INH 05/08/16 08:00 06/07/16 07:59 05/08/16 07:38 1 PUFF Ciprofloxacin (Cipro Tab) 500 mg BID PO 05/08/16 10:00 05/18/16 09:59 05/08/16 10:05 500 MG Impression (1) Acute respiratory failure with hypoxia and hypercapnia (2) Chronic kidney disease (CKD) stage G3b/A1, moderately decreased glomerular filtration rate (GFR) between 30-44 mL/min/1.73 square meter and albuminuria creatinine ratio less than 30 mg/g (3) Acute on chronic diastolic (congestive) heart failure (4) Acute kidney injury (5) Anemia (6) Edema Hemalatha is a 60 year-old female with CKD III (baseline creatinine 1.7), hypertension, morbid obesity (BMI 52) and obesity hypoventilation syndrome. The patient's renal impairment is on the basis of diabetic nephropathy and hypertensive nephrosclerosis. She has not had significant proteinuria. She has chronic lower extremity edema attributed to right heart failure, lymphedema , venous insufficiency. She was admitted to [facility] with volume overload in August 2015. Prior to that she had been admitted to the ICU with hypercarbic respiratory failure. Hemalatha presented to [facility] with acute hypoxic respiratory failure and significant hypervolemia. GUNNAR consistent with acute CRS in the setting of diastolic CHF and right heart failure. Recommendations CHRONIC KIDNEY DISEASE: -- Creatinine stable -- Electrolytes appropriate -- Repeat metabolic profile early next week as outpatient (order placed in outpatient EMR) -- Follow up with Dr. Neri in the clinic within 2 weeks of discharge ( patient asked to call [phone] to schedule) -- Medications appropriately dosed for renal function COR PULMONALE/R HEART FAILURE: -- Continue Bumex 3 mg BID and titrate as needed to maintain net negative fluid balance (>2L/d) -- Instructed to monitor daily weight as outpatient -- Continue spironolactone 50 mg twice a day HYPERTENSION: -- Blood pressure was checked today and found to be acceptable. No change to current antihypertensive regimen at this time. Continue to monitor. ANEMIA: -- Patient has mild, asymptomatic anemia. No acute indication for SAMARA therapy at this time. Continue to monitor.
[2016-05-08 12:00] VITALS: PULSE 82; O2SAT 96
[2016-06-22] MEDS ORDERED: BMX1 PO (16:13)
[2016-06-22] MEDS ORDERED: MCRK20 PO (16:14)
[2016-06-22] MEDS ORDERED: INSU1.2I SQ (16:14)
[2016-06-22] MEDS ORDERED: PRED10TA PO (16:14)
[2016-06-22] MEDS ORDERED: KFL500 PO (16:14)
[2016-06-22] MEDS ORDERED: MCTP EXT (16:14)
[2016-06-22] MEDS ORDERED: OXGN (16:20)
[2016-07-10] MEDS ORDERED: VTMB122500 PO (09:56)
[2016-07-10] MEDS ORDERED: VRPSR240 PO (14:07)
[2016-07-23] MEDS ORDERED: POTA20TA16 PO (10:15)
[2016-08-13] MEDS ORDERED: METO1TAB69 PO (09:30)
[2016-08-13] MEDS ORDERED: PREG1CAP70 PO (09:37)
[2016-08-13] MEDS ORDERED: NVLGI/PEN SQ ×4 (11:43→13:26)
[2016-08-13] MEDS ORDERED: ALLO100T PO (11:43)
[2016-08-13] MEDS ORDERED: ADVIN50/60 INH (13:08)
[2016-08-13] MEDS ORDERED: CHOL1000 PO (13:08)
[2016-08-13] MEDS ORDERED: SPRIN/30 INH (13:08)
[2016-08-13] MEDS ORDERED: ATOR-24 PO (13:08)
[2016-08-13] MEDS ORDERED: VITA1TAB4 PO (13:08)
[2016-08-13] MEDS ORDERED: MULT1TAB22 PO (13:08)
[2016-08-13] MEDS ORDERED: PYRI100T4 PO (13:52)
[2016-08-13] MEDS ORDERED: ASCO500C43 PO (13:54)
[2016-08-13] MEDS ORDERED: LACT1LOT3 TOP (17:18)
[2016-08-13] MEDS ORDERED: LORC1TAB PO (17:18)
[2016-08-13] MEDS ORDERED: IPRASOL4 INH (17:18)
[2016-09-22] MEDS ORDERED: PRED10TA PO (14:40)
[2016-11-27] MEDS ORDERED: RXC5 PO (13:39)
[2016-11-27] MEDS ORDERED: LDDP5 TD (13:39)
[2016-11-27] MEDS ORDERED: LYR50 PO (13:39)
== END 2016-05-08 12:57 | disposition home or self-care (01) | DRG 291 ==
LOC: ENRESERVDT → ENRESERVTM → EDBD 11:22 → C.EDC 11:23 → C.2T 14:03 → C.MS4W 05-07 10:22
PROVIDERS: ADMIT Family Medicine; ATTEND Family Medicine
DX: I13.0 Hypertensive heart and chronic kidney disease with heart failure and stage 1 through stage 4 chronic kidney disease, or unspecified chronic kidney disease (principal); I50.33 Acute on chronic diastolic (congestive) heart failure; J96.91 Respiratory failure, unspecified with hypoxia; J44.1 Chronic obstructive pulmonary disease with (acute) exacerbation; N17.9 Acute kidney failure, unspecified; L03.116 Cellulitis of left lower limb; L03.115 Cellulitis of right lower limb; E66.2 Morbid (severe) obesity with alveolar hypoventilation; Z68.43 Body mass index [BMI] 50.0-59.9, adult; B96.5 Pseudomonas (aeruginosa) (mallei) (pseudomallei) as the cause of diseases classified elsewhere; I27.2 Other secondary pulmonary hypertension; N18.3 Chronic kidney disease, stage 3 (moderate); D64.9 Anemia, unspecified; E11.21 Type 2 diabetes mellitus with diabetic nephropathy; I87.2 Venous insufficiency (chronic) (peripheral); M50.30 Other cervical disc degeneration, unspecified cervical region; E66.01 Morbid (severe) obesity due to excess calories; Z51.81 Encounter for therapeutic drug level monitoring; Z79.899 Other long term (current) drug therapy; Z79.4 Long term (current) use of insulin; Z79.52 Long term (current) use of systemic steroids; Z99.81 Dependence on supplemental oxygen; Z66 Do not resuscitate; Z87.891 Personal history of nicotine dependence; Z83.3 Family history of diabetes mellitus; Z82.49 Family history of ischemic heart disease and other diseases of the circulatory system

== ENCOUNTER → 2016-05-20 | Outpatient (CLI) | payer BC ==
[~2016-05-20] MED LIST changes: -ADVIN25050 INH; +ADVIN50/60 INH; +ALLO100T PO; -AMOX875T PO; +ASCO500C43 PO; +ATOR-24 PO; +B-COCAP20 PO; +BUME1TAB PO; +CALC667C PO; +CEPH500C PO; +CHOL1000 PO; -CHOL100010 PO; +CPR500 PO; +CPR500HP PO; -DOXY100C2 PO; +DOXY100C76 PO; +DOXY100T PO; +DXY100 PO; +FAMO1TAB47 PO; +HYDR-5688 PO; +INSU1.2I SC; +IPRASOL4 INH; +KFL500 PO; +LACT1LOT3 TOP; +LDDP5 TD; +LYR50 PO; +LYR75 PO; +MCRK20 PO; +MCTP EXT; +MCTP TOP; +METO1TAB69 PO; +METO5TAB25 PO; +MULT1TAB22 PO; -MULTTAB PO; +NVLGI/PEN SQ; +ONDA4TAB65 PO; +OXGN; +PANT40TA PO; +PHS667 PO; +POTA20TA16 PO; +PREG1CAP70 PO; +PRT40 PO; +PYRI100T4 PO; +RXC5 PO; +SILV1CRE73 TOP; -SIMV80TA5 PO; +SPIR50TA2 PO; +SPRIN/30 INH; -TIOTCAP INH; +TRAM-10 PO; +ULT50X PO; +VBRT100 PO; +VERA1TAB52 PO; +VERA240C2 PO; +VITA1TAB4 PO; -VITA400C15 PO; +VRPSR240 PO; +VTMB122500 PO; +ZRX5 PO
[2016-05-20 14:47] LABS: ESTIMATED AVERAGE GLUCOSE 134 mg/dl; HA1C FLAG Normal (Normal)
[2016-05-20 15:05] LABS: BLOOD UREA NITROGEN 61 mg/dl (7-18); BUN/CREATININE RATIO 30.3 (10-20); CALCIUM 10.8 mg/dl (8.5-10.1); CARBON DIOXIDE 34 mmol/L (21-32); CHLORIDE 97 mmol/L (98-107); CHOLESTEROL 126 mg/dl (0-200); GLUCOSE 60 mg/dl (70-99); POTASSIUM 3.8 mmol/L (3.5-5.1); SODIUM 138 mmol/L (136-145)
[2016-05-20 15:08] LABS: CHOLESTEROL/HDL RATIO 2.9; HDL CHOLESTEROL 43 mg/dl; LDL CHOLESTEROL CALCULATED 43 mg/dl; PHOSPHORUS 4.2 mg/dl (2.5-4.9); TRIGLYCERIDES 202 mg/dl (0-150); VERY LOW DENSITY LIPOPROT CALC 40 mg/dl
== END | disposition home or self-care (01) ==
LOC: C.LAB1850 13:21
PROVIDERS: ATTEND Internal Medicine Nephrology
DX: E78.5 Hyperlipidemia, unspecified (principal); I51.9 Heart disease, unspecified

== ENCOUNTER 2016-06-14 09:41 | Inpatient (IN) | payer BC ==
[~2016-06-14] VITALS: Ht 162.6 cm; Wt 145.6 kg
[2016-06-14] VITALS (16 sets, daily range): BP systolic 156–230; BP diastolic 57–84; PULSE 69–85; TEMP 36.5–36.8; O2SAT 88–99; Ht 162.6 cm; Wt 145.6 kg
[~2016-06-14 09:41] MED LIST changes: -ADVIN50/60 INH; -ALLO100T PO; -ASCO500C43 PO; -ATOR-24 PO; -B-COCAP20 PO; -BUME1TAB PO; -CALC667C PO; -CEPH500C PO; -CHOL1000 PO; -CPR500HP PO; -DOXY100C76 PO; -DOXY100T PO; -DXY100 PO; -FAMO1TAB47 PO; -INSU1.2I SC; -KFL500 PO; -LACT1LOT3 TOP; -LDDP5 TD; -LYR50 PO; -LYR75 PO; -MCRK20 PO; -MCTP EXT; -MCTP TOP; -METO1TAB69 PO; -METO5TAB25 PO; -MULT1TAB22 PO; -NVLGI/PEN SQ; -ONDA4TAB65 PO; -OXGN; -PANT40TA PO; -PHS667 PO; -POTA20TA16 PO; -PREG1CAP70 PO; -PRT40 PO; -PYRI100T4 PO; -RXC5 PO; -SILV1CRE73 TOP; -SPRIN/30 INH; -TRAM-10 PO; -ULT50X PO; -VBRT100 PO; -VERA1TAB52 PO; -VERA240C2 PO; -VITA1TAB4 PO; -VRPSR240 PO; -VTMB122500 PO; -ZRX5 PO
[2016-06-14] MEDS ORDERED: VBRT100 PO (09:56)
[2016-06-14] MEDS ORDERED: METO5TAB25 PO (09:56)
[2016-06-14] MEDS ORDERED: ONDANSETRON INJ 2 MG/ML 2 ML VIAL IV STA (10:08)
[2016-06-14] MEDS: HYDROmorphone INJ 0.5 MG/0.5 ML SYR IV PRN ×2 (10:34→11:32)
--- NOTE | 2016-06-14 10:34 | DIAGNOSTIC IMAGING REPORT ---
CHEST ONE VIEW PORTABLE HISTORY: Weakness. Fall. EVALUATE WEAKNESS COMPARISON: Chest 05/15/2016. FINDINGS: The heart remains mildly enlarged. Bibasilar linear densities and mild congestive change remain unchanged. No pleural effusions. No pneumothorax. IMPRESSION: No change from the prior study. Bibasilar subsegmental atelectasis and mild pulmonary vascular congestion remains unchanged. Electronically signed by: Villa Vidales M.D. 06/14/2016 10:32 AM Dictated Date/Time: 06/14/2016 10:31 AM
[2016-06-14 10:47] LABS: BASO % 0.1 %; BASO ABS # 0.01 K/uL (0-0.2); COMPLETE YES; EOS % 1.4 %; HEMATOCRIT 35.1 % (37-47); IG% 0.2 %; LYMPH % 7.8 %; LYMPH ABS # 0.97 K/uL (1.2-3.4); MEAN CORPUSCULAR HEMOGLOBIN 31.3 pg (25-34); MEAN CORPUSCULAR HGB CONC 31.9 g/dl (32-36); MEAN PLATELET VOLUME 10.4 fL (7.4-10.4); NEUT % 73.5 %; PLATELET COUNT 229 K/uL (130-400); RED BLOOD COUNT 3.58 M/uL (4.2-5.4); WHITE BLOOD COUNT 12.45 K/uL (4.8-10.8)
[2016-06-14 10:55] LABS: PARTIAL THROMBOPLASTIN RATIO 0.7; PROTHROMBIN TIME (PATIENT) 10.6 SECONDS (9.0-12.0)
[2016-06-14 11:36] LABS: URINE APPEARANCE CLEAR (CLEAR); URINE BILIRUBIN NEG (NEG); URINE COLOR YELLOW; URINE NITRITE NEG (NEG); URINE SPECIFIC GRAVITY 1.011 (1.000-1.030); UROBILINOGEN NEG (NEG)
[2016-06-14 11:36] LABS: ALKALINE PHOSPHATASE 78 U/L (45-117); ALT/SGPT 38 U/L (12-78); AST/SGOT 27 U/L (15-37); BLOOD UREA NITROGEN 103 mg/dl (7-18); BUN/CREATININE RATIO 41.1 (10-20); CHLORIDE 88 mmol/L (98-107); CKMB/CK RATIO 2.8 (0-3.0); GLUCOSE 159 mg/dl (70-99); MAGNESIUM 2.5 mg/dl (1.8-2.4); POTASSIUM 3.7 mmol/L (3.5-5.1); SODIUM 135 mmol/L (136-145)
[2016-06-14 11:40] LABS: MANUAL MICROSCOPIC REQUIRED? NO; REVIEW REQ? NO
[2016-06-14 11:41] LABS: CALCIUM 14.5 mg/dl (8.5-10.1); CARBON DIOXIDE 47 mmol/L (21-32)
--- NOTE | 2016-06-14 11:46 | DIAGNOSTIC IMAGING REPORT ---
HEAD CT NONCONTRAST CT DOSE: 3387.43 mGy.cm HISTORY: EVALUATE WEAKNESS TECHNIQUE: Multiaxial CT images of the head were performed without the use of intravenous contrast. Automated exposure control was utilized for this study. Comparison: Head CT 11/02/2014. Findings: Motion artifact. The paranasal sinuses and mastoid air cells are clear. The calvarium and skull base are intact. The ventricles and sulci are within normal limits. There is no mass, hematoma, midline shift, or acute infarct. Impression: Motion artifact. No definite acute intracranial abnormality. Electronically signed by: Villa Vidales M.D. 06/14/2016 11:44 AM Dictated Date/Time: 06/14/2016 11:38 AM
--- NOTE | 2016-06-14 11:49 | DIAGNOSTIC IMAGING REPORT ---
LUMBAR SPINE CT CT DOSE: HISTORY: low back pain, fall, weakness TECHNIQUE: Multiaxial CT images of the lumbar spine were performed and reformatted in the sagittal and coronal plane without the use of contrast. COMPARISON: None. FINDINGS: No fractures. No subluxation. Paraspinal soft tissues are unremarkable. Moderate facet degenerative changes within the lower lumbar spine. Moderate disc space narrowing at L1-L2 and L2-L3. Mild disc space narrowing at L3-L4 and L4-L5. The visualized sacrum is intact. A 3.8 cm left adrenal myelolipoma. IMPRESSION: No fractures within the lumbar spine. Electronically signed by: Villa Vidales M.D. 06/14/2016 11:47 AM Dictated Date/Time: 06/14/2016 11:44 AM
[2016-06-14] MEDS ORDERED: SODIUM CHLORIDE 0.9% 1000ML 1,000 ML IV STA ×2 (11:57)
[2016-06-14 12:05] LABS: VEN BLOOD GAS BASE EXCESS 17.1 mmol/L; VENOUS BLOOD GAS PCO2 90 mmHg (38.0-50.0); VENOUS BLOOD GAS PO2 31 mmHg
[2016-06-14 12:06] LABS: VEN BLD GAS O2 SATURATION < 60.0 %
[2016-06-14] MEDS ORDERED: ACETAMINOPHEN 325 MG TAB PO PRN (14:00)
[2016-06-14] MEDS ORDERED: ONDANSETRON INJ 2 MG/ML 2 ML VIAL IV PRN (14:00)
[2016-06-14] MEDS: PREGABALIN 150 MG CAP PO SCH ×2 (14:00→20:52)
[2016-06-14] MEDS ORDERED: HEPARIN SOD 5000 UNIT/0.5 ML CARP SQ SCH (14:00)
[2016-06-14] MEDS ORDERED: SODIUM CHLORIDE 0.9% 1000ML 1,000 ML IV SCH (14:00)
[2016-06-14] MEDS ORDERED: HydrALAZINE HCL 20 MG/ML VIAL IV. PRN (14:00)
[2016-06-14] MEDS ORDERED: ALBUT/IPRATROP 3MG/0.5MG NEB 3 ML VIAL INH PRN (14:00)
--- NOTE | 2016-06-14 14:27 | History and Physical ---
History & Physical Date & Time of Service: Jun 14, 2016 at 14:09 Chief Complaint: FALL Primary Care Physician: Emily Isaac C.R.N.P History of Present Illness Source: family, clinic records, hospital records This patient is a 60-year-old female with a history of diastolic heart failure, chronic kidney disease, diabetes and chronic renal insufficiency that presents emergency department with progressive weakness and falls for 1 week. The history is taken from the patient's as the patient has altered mental status and is on BiPAP. According to the , the patient had 2 falls earlier this morning. During one of the falls, she fell backwards striking her back against the banister. She did not hit her head. There was no loss of consciousness after the fall. The patient has also been progressively drowsy. She has been falling asleep midconversation. The patient's also says that she has had a severe tremor, which is almost a severe jerking as opposed to a fine tremor. This is also been getting worse over the last week. The patient saw her purchasing department clerk 8 days ago for dyspnea on exertion and weight gain. She was put on metolazone 5 mg daily. She takes this in addition to her typical dose of spironolactone and Bumex. ED evaluation reveals a PCO2 of 90 per VBG. PH 7.34. Calcium is high at 14. Creatinine has also bumped from 2.0-2.5. Past Medical/Surgical History Medical Problems: Chronic diastolic heart failure Type 2 diabetes Morbid obesity Hypertension Chronic venous insufficiency of the lower extremities Chronic cellulitis treated with chronic antibiotics COPD Chronic kidney disease stage III, which is likely progressed recently to stage IV- Family History Cancer Diabetes mellitus Gallbladder disease Heart disease Lung disease Social History Smoking Status: Former Smoker Alcohol Use: none Drug Use: none Marital Status: Housing status: lives with family Occupational Status: unemployed Immunizations History of Influenza Vaccine: Yes Influenza Vaccine Date: Apr 15, 2012 History of Tetanus Vaccine?: No History of Pneumococcal: Yes Pneumococcal Date: Jan 13, 2013 History of Hepatitis B Vaccine: No Multi-Drug Resistant Organisms History of MDRO: No Allergies Coded Allergies: Daptomycin (Verified Allergy, Mild, HIVES, 06/14/16) itching Codeine (Verified Allergy, Unknown, unknown, 06/14/16) has tolerated morphine Iodine (Verified Allergy, Unknown, 06/14/16) Shellfish (Verified Allergy, Unknown, 06/14/16) Sulfamethoxazole w/Trimethoprim (Verified Allergy, Unknown, RASH, 06/14/16) Home Medications Scheduled Allopurinol (Zyloprim), 100 MG PO DAILY Ascorbic Acid (Vitamin C 500 mg), 1,000 MG PO DAILY Atorvastatin (Lipitor), 40 MG PO DAILY Bumetanide (Bumetanide), 3 MG PO BID17 Cholecalciferol (Vitamin D3), 1,000 UNITS PO DAILY Ciprofloxacin (Ciprofloxacin HCl), 500 MG PO BID Cyanocobalamin (Vitamin B-12), 2,500 MCG PO DAILY Doxycycline Hyclate (Doxycycline Hyclate), 100 MG PO DAILY Fluticasone Prop/Salmeterol (Advair Diskus 500/50 60 Dose), 1 PUFF INH BID Insulin Aspart (Novolog Flexpen), 50 UNITS SQ W/BREAKFAST Insulin Aspart (Novolog Flexpen), 50 UNITS SQ W/LUNCH Insulin Aspart (Novolog Flexpen), 90 UNITS SQ W/SUPPER Insulin Aspart (Novolog Flexpen), 40 UNITS SQ HS Insulin Glargine (Toujeo Solostar), 70 UNIT SQ TID Lorcaserin Hcl (Belviq), 10 MG PO BID Metolazone (Zaroxolyn), 5 MG PO DAILY Metoprolol Succ (Toprol Xl) (Toprol-Xl ), 150 MG PO DAILY Multiple Vitamins W/ Minerals (One Daily For Women), 1 TAB PO DAILY Prednisone (Prednisone), 15 MG PO QAM Pregabalin (Lyrica), 150 MG PO TID Pyridoxine (Vitamin B6), 200 MG PO DAILY Spironolactone (Aldactone), 50 MG PO BID Tiotropium [place] (Spiriva Handihaler), 1 CAP INH DAILY Verapamil HCl (Verapamil HCl ER), 240 MG PO DAILY Vitamin E (Vitamin E), 800 UNITS PO DAILY Scheduled PRN Ipratropium-Albuterol (Duoneb), 1 TREATMENT INH Q6H PRN for SOB/Wheezing Review of Systems 10 system review performed and negative unless noted in HPI or below Physical Exam Vital Signs Date Time Temp Pulse Resp B/P Pulse Ox O2 Delivery O2 Flow Rate FiO2 06/14/16 14:04 72 14 130/58 96 BiPAP 06/14/16 13:02 70 16 128/58 96 BiPAP 50 06/14/16 12:41 69 99 06/14/16 12:30 96 BiPAP 3.0 50 06/14/16 12:18 70 14 182/76 95 Room Air 06/14/16 12:04 06/14/16 11:31 70 20 162/79 94 Nasal Cannula 3.0 06/14/16 11:06 88 18 175/83 90 Nasal Cannula 3.0 06/14/16 10:44 97 Nasal Cannula 3.0 06/14/16 10:22 68 06/14/16 10:19 90 Nasal Cannula 3.0 06/14/16 09:46 36.9 85 16 123/60 90 Nasal Cannula 3.0 GENERAL: 60-year-old female, morbidly obese on BiPAP, extremely drowsy, awakes to answer some questions but not all, SKIN: Significant erythema noted to lower extremities bilaterally starting from the knee regressing distally to the feet. Very small superficial wounds noted to the right second toe. Capillary refills less than 2 seconds.. HEAD: Normocephalic atraumatic. NECK: No lymphadenopathy. No JVD. HEART: Regular rate and rhythm without murmurs gallops or rubs. LUNGS: Clear to auscultation bilaterally without wheezes, rales or rhonchi. No accessory muscle use. ABDOMEN: Morbidly obese, tight and distended. Erythema noted to the skin folds underneath the pannus. No focal tenderness noted. No guarding or rebound tenderness. MUSCULOSKELETAL: +1 pitting edema to the lower extremities bilaterally with additional skin changes as noted above NEURO: Patient was alert to person only. Arouses to answer some questions, but not all. Does not follow commands. Hyperactive brachial reflexes noted bilaterally. Diagnostics Laboratory Results Results Past 24 Hours Test 06/14/16 10:25 06/14/16 11:00 06/14/16 11:54 06/14/16 13:47 Range/Units White Blood Count 12.45 4.8-10.8 K/uL Red Blood Count 3.58 4.2-5.4 M/uL Hemoglobin 11.2 12.0-16.0 g/dL Hematocrit 35.1 37-47 % Mean Corpuscular Volume 98.0 80-100 fL Mean Corpuscular Hemoglobin 31.3 25-34 pg Mean Corpuscular Hemoglobin Concent 31.9 32-36 g/dl Platelet Count 229 130-400 K/uL Mean Platelet Volume 10.4 7.4-10.4 fL Neutrophils (%) (Auto) 73.5 % Lymphocytes (%) (Auto) 7.8 % Monocytes (%) (Auto) 17.0 % Eosinophils (%) (Auto) 1.4 % Basophils (%) (Auto) 0.1 % Neutrophils # (Auto) 9.15 1.4-6.5 K/uL Lymphocytes # (Auto) 0.97 1.2-3.4 K/uL Monocytes # (Auto) 2.12 0.11-0.59 K/uL Eosinophils # (Auto) 0.17 0-0.5 K/uL Basophils # (Auto) 0.01 0-0.2 K/uL RDW Standard Deviation 66.3 36.4-46.3 fL RDW Coefficient of Variation 18.4 11.5-14.5 % Immature Granulocyte % (Auto) 0.2 % Immature Granulocyte # (Auto) 0.03 0.00-0.02 K/uL Prothrombin Time 10.6 9.0-12.0 SECONDS Prothromb Time International Ratio 1.0 0.9-1.1 Activated Partial Thromboplast Time 18.9 21.0-31.0 SECONDS Partial Thromboplastin Ratio 0.7 Sodium Level 135 136-145 mmol/L Potassium Level 3.7 3.5-5.1 mmol/L Chloride Level 88 98-107 mmol/L Carbon Dioxide Level 47 21-32 mmol/L Anion Gap 0.0 3-11 mmol/L Blood Urea Nitrogen 103 7-18 mg/dl Creatinine 2.50 0.60-1.20 mg/dl Est Creatinine Clear Calc Drug Dose 33.8 ml/min Estimated GFR () 23.1 Estimated GFR (Non- 19.9 BUN/Creatinine Ratio 41.1 10-20 Random Glucose 159 70-99 mg/dl Calcium Level 14.5 8.5-10.1 mg/dl Magnesium Level 2.5 1.8-2.4 mg/dl Total Bilirubin 0.3 0.2-1 mg/dl Direct Bilirubin < 0.1 0-0.2 mg/dl Aspartate Amino Transf (AST/SGOT) 27 15-37 U/L Alanine Aminotransferase (ALT/SGPT) 38 12-78 U/L Alkaline Phosphatase 78 45-117 U/L Total Creatine Kinase 159 26-192 U/L Creatine Kinase MB 4.4 0.5-3.6 ng/ml Creatine Kinase MB Ratio 2.8 0-3.0 Troponin I 0.028 0-0.045 ng/ml Total Protein 9.2 6.4-8.2 gm/dl Albumin 3.1 3.4-5.0 gm/dl Thyroid Stimulating Hormone (TSH) 2.170 0.300-4.500 uIu/ml Urine Color YELLOW Urine Appearance CLEAR CLEAR Urine pH 5.0 4.5-7.5 Urine Specific [place] 1.011 1.000-1.030 Urine Protein NEG NEG Urine Glucose (UA) NEG NEG Urine Ketones NEG NEG Urine Occult Blood NEG NEG Urine Nitrite NEG NEG Urine Bilirubin NEG NEG Urine Urobilinogen NEG NEG Urine Leukocyte Esterase NEG NEG Venous Blood pH 7.34 7.36-7.41 Venous Blood Partial Pressure CO2 90 38.0-50.0 mmHg Venous Blood Partial Pressure O2 31 mmHg Venous Blood HCO3 47 mmol/L Venous Blood Oxygen Saturation < 60.0 % Venous Blood Base Excess 17.1 mmol/L Test 06/14/16 13:54 Range/Units Microbiology Results 06/14/16 Blood Culture, Received Pending 06/14/16 Blood Culture, Received Pending 06/14/16 Urine Culture, Received Pending Diagnostic Radiology LUMBAR SPINE CT CT DOSE: HISTORY: low back pain, fall, weakness TECHNIQUE: Multiaxial CT images of the lumbar spine were performed and reformatted in the sagittal and coronal plane without the use of contrast. COMPARISON: None. FINDINGS: No fractures. No subluxation. Paraspinal soft tissues are unremarkable. Moderate facet degenerative changes within the lower lumbar spine. Moderate disc space narrowing at L1-L2 and L2-L3. Mild disc space narrowing at L3-L4 and L4-L5. The visualized sacrum is intact. A 3.8 cm left adrenal myelolipoma. IMPRESSION: No fractures within the lumbar spine. Electronically signed by: Villa Vidales M.D. 06/14/2016 11:47 AM Dictated Date/Time: 06/14/2016 11:[address] CT DOSE: 3387.43 mGy.cm HISTORY: EVALUATE WEAKNESS TECHNIQUE: Multiaxial CT images of the head were performed without the use of intravenous contrast. Automated exposure control was utilized for this study. Comparison: Head CT 11/02/2014. Findings: Motion artifact. The paranasal sinuses and mastoid air cells are clear. The calvarium and skull base are intact. The ventricles and sulci are within normal limits. There is no mass, hematoma, midline shift, or acute infarct. Impression: Motion artifact. No definite acute intracranial abnormality. Electronically signed by: Villa Vidales M.D. 06/14/2016 11:44 AM Dictated Date/Time: 06/14/2016 11:38 AM CHEST ONE VIEW PORTABLE HISTORY: Weakness. Fall. EVALUATE WEAKNESS COMPARISON: Chest 05/15/2016. FINDINGS: The heart remains mildly enlarged. Bibasilar linear densities and mild congestive change remain unchanged. No pleural effusions. No pneumothorax. IMPRESSION: No change from the prior study. Bibasilar subsegmental atelectasis and mild pulmonary vascular congestion remains unchanged. Electronically signed by: Villa Vidales M.D. 06/14/2016 10:32 AM Dictated Date/Time: 06/14/2016 10:31 AM EKG Normal sinus rhythm 67 bpm No ischemic changes noted Impression Assessment and Plan 60-year-old female with a history of morbid obesity, COPD, chronic diastolic heart failure presents emergency department with altered mental status and frequent falls. Found to be in hypercapnic respiratory failure with an elevated calcium Metabolic encephalopathy likely multifactoral Acute on chronic hypercapnic respiratory failure/morbid obesity hypoventilation syndrome -The patient Does Not Want to Be Intubated -Continue BiPAP -Repeat VBG -NPO for now as the patient cannot protect her airway -Consult straddle carrier operator Hypercalcemia -Repeat PRP now -Check ionized calcium -NS @ 200 cc/hr -I will defer to the straddle carrier operator for the initiation of a loop diuretic COPD -Continue Spiriva and Advair -replace prednisone 15 mg daily to stress dose hydrocortisone 50 mg q 8 hr diabetes mellitus -Pharmacy glycemic consult -insulin sliding scale -home regimen on hold: NovoLog 50 units with breakfast, 50 units with lunch, 90 units with dinner and 40 units prior to bed; Toujeo 70 units TID Lower extremity cellulitis -Cipro 400 mg IV twice a day, doxycycline 100 mg IV twice a day--> pharmacy may adjust dose -Consider ID consult as a follow the patient closely Acute on chronic renal failure-Baseline creatinine around 2.0-elevated today at 2.5 likely secondary to overdiuresis -IV fluids as noted above -Monitor PRP -Nephrology consult DVT prophylaxis -Heparin 5000 u subQ BID -TEDS, SCDs CODE STATUS -LEVEL V DO NO RESUSCITATE DISPO -admit to ICU -PT/OT eval -CM consult Level of Care Critical Care Advanced Directives Existing Living Will: Yes Existing Power of Substation Operator Helper Generation: Yes Resuscitation Status DO NOT RESUSCITATE VTE Prophylaxis VTE Risk Assessment Done? Y/N: Yes Risk Level: Moderate Given or contraindicated: Unfractionated heparin SQ
[2016-06-14] MEDS ORDERED: HYDROCORTISONE IV 50 MG in SYRINGE 0 ML IV SCH (14:30)
[2016-06-14 14:45] LABS: VEN BLD GAS O2 SATURATION < 60.0 %; VEN BLOOD GAS BASE EXCESS 14.3 mmol/L; VENOUS BLOOD GAS PCO2 93 mmHg (38.0-50.0); VENOUS BLOOD GAS PO2 33 mmHg
[2016-06-14] MEDS ORDERED: FUROSEMIDE INJ 40 MG in SYRINGE 0 ML IV SCH (14:45)
[2016-06-14 15:07] LABS: BUN/CREATININE RATIO 42.8 (10-20); CALCIUM 13.7 mg/dl (8.5-10.1); CREATININE 2.4 mg/dl (0.60-1.20); POTASSIUM 3.6 mmol/L (3.5-5.1)
[2016-06-14] MEDS ORDERED: HYDROCORTISONE SOD SUCCINATE 100 MG/2 ML VIAL IV STA (15:09)
[2016-06-14] MEDS ORDERED: PHARMACY GLYCEMIC MGMT CONSULT PRN (15:34)
--- NOTE | 2016-06-14 15:50 | Procedure Note ---
Procedure Note Procedure Date Jun 14, 2016. Procedure Description Procedure Name: Left radial arterial line Procedure time out: side/site verified, patient ID confirmed, correct procedure Consent obtained: written ( signed consent forms, patient verbally consented) Time of procedure: 13:30 Performed by: attending (second attempt), resident (first attempt) Indications: diagnostic Contraindications: none Description: Patient's left wrist was prepped with chlorhexidine and draped in a sterile fashion, dynamic ultrasound guidance was used. 2 ML's of 1% lidocaine was used to anesthetize the area. A 20-gauge arrow arterial line was placed via modified Seldinger technique in the left radial artery. Patient tolerated the procedure well. No complications, trace blood loss. Complications: none Patient tolerated procedure: well Post-procedure vital signs: reviewed and stable Comments: Critical Care Medicine Point of Care Bedside Ultrasound Procedure: Procedural Ultrasound Procedure Date: [] Indication: [] Attending: Aren Beasley DO Resident/Physician Head Of Product: [] Organs Examined: Left radial artery Objects visualized: Guidewire If for central venous access Artery visualized: Yes Line confirmed in artery with ultrasound: Yes Impression: Suspect left radial artery cannulization. Images obtained are saved for permanent record
[2016-06-14 15:54] LABS: PHOSPHORUS 5.1 mg/dl (2.5-4.9)
[2016-06-14] MEDS ORDERED: CALCITONIN SALMON 400 INTER.UNIT/2 ML SQ SCH ×2 (16:00→23:45)
[2016-06-14] MEDS ORDERED: ZOLEDRONIC ACID INJ 4 MG in SODIUM CHLORIDE 0.9% 100ML 100 ML IV SCH (16:00)
--- NOTE | 2016-06-14 16:01 | Critical Care Consultation ---
Critical Care Consultation Date of Consultation: Jun 14, 2016. Attending Physician: Pavel Krishan MD, PhD Reason for Consultation: ICU Management History of Present Illness Mrs Hemalatha Gaytan is a 60 yo F with diastolic CHF, diabetes, CKD stage IV, obesity hypoventilation syndrome (previously intubated for 8 days in previous admission) who presents with weakness and falls. Her reports she fell this morning at 3am, and then again at 5am. In one of the falls, she hit her back against a bannister, but had no loss of consciusness. She has been overall more confused, and more drowsy. She said she does wear her BiPAP at night. She had recently been started on metolazone 5mg by her process safety manager, in addition to spironolactone and Bumex. She also has chronic cellulitis and follows with Gabriella Tong of [facility], and she remains on cipro and doxy. In the ED, her calcium was found to be high at 14. Initially, the said the pt would not want to be intubated in case of respiratory failure, but would want CPR. Upon arrival in the ICU, the patient was awake and alert. She was oriented to time, place, and person. She herself said she would want to be intubated, even if that meant eventual tracheostomy was required. Past Medical/Surgical History Medical Problems: (1) Acute kidney injury (2) Acute on chronic diastolic (congestive) heart failure (3) Acute respiratory failure with hypoxia and hypercapnia (4) Anemia (5) Cellulitis Of Leg (6) Cervical Disc Degen (7) CHF (congestive heart failure) (8) Chronic kidney disease (CKD) stage G3b/A1, moderately decreased glomerular filtration rate (GFR) between 30-44 mL/min/1.73 square meter and albuminuria creatinine ratio less than 30 mg/g (9) COPD (chronic obstructive pulmonary disease) (10) Cystitis (11) Diab Mariama Wo Compl, Type Ii Or Unspec Type, Uncontrolled (12) Diabetes (13) Edema (14) Hypercalcemia (15) Hyponatremia (16) Metabolic alkalosis with respiratory acidosis (17) Metabolic encephalopathy (18) Morbid obesity with BMI of 50.0-59.9, adult (19) Obesity hypoventilation syndrome (20) Ovarian Cyst Nec/Nos (21) Pulmonary Collapse (22) Pulmonary nodules (23) Sciatica (24) Venous stasis dermatitis of both lower extremities Family History Cancer Diabetes mellitus Gallbladder disease Heart disease Lung disease Social History Smoking Status: Former Smoker Alcohol Use: none Drug Use: none Marital Status: Housing Status: lives with family Occupation Status: unemployed Allergies Coded Allergies: Daptomycin (Verified Allergy, Mild, HIVES, 06/14/16) itching Codeine (Verified Allergy, Unknown, unknown, 06/14/16) has tolerated morphine Iodine (Verified Allergy, Unknown, 06/14/16) Shellfish (Verified Allergy, Unknown, 06/14/16) Sulfamethoxazole w/Trimethoprim (Verified Allergy, Unknown, RASH, 06/14/16) Home Medications Scheduled Allopurinol (Zyloprim), 100 MG PO DAILY Ascorbic Acid (Vitamin C 500 mg), 1,000 MG PO DAILY Atorvastatin (Lipitor), 40 MG PO DAILY Bumetanide (Bumetanide), 3 MG PO BID17 Cholecalciferol (Vitamin D3), 1,000 UNITS PO DAILY Ciprofloxacin (Ciprofloxacin HCl), 500 MG PO BID Cyanocobalamin (Vitamin B-12), 2,500 MCG PO DAILY Doxycycline Hyclate (Doxycycline Hyclate), 100 MG PO DAILY Fluticasone Prop/Salmeterol (Advair Diskus 500/50 60 Dose), 1 PUFF INH BID Insulin Aspart (Novolog Flexpen), 50 UNITS SQ W/BREAKFAST Insulin Aspart (Novolog Flexpen), 50 UNITS SQ W/LUNCH Insulin Aspart (Novolog Flexpen), 90 UNITS SQ W/SUPPER Insulin Aspart (Novolog Flexpen), 40 UNITS SQ HS Insulin Glargine (Toujeo Solostar), 70 UNIT SQ TID Lorcaserin Hcl (Belviq), 10 MG PO BID Metolazone (Zaroxolyn), 5 MG PO DAILY Metoprolol Succ (Toprol Xl) (Toprol-Xl ), 150 MG PO DAILY Multiple Vitamins W/ Minerals (One Daily For Women), 1 TAB PO DAILY Prednisone (Prednisone), 15 MG PO QAM Pregabalin (Lyrica), 150 MG PO TID Pyridoxine (Vitamin B6), 200 MG PO DAILY Spironolactone (Aldactone), 50 MG PO BID Tiotropium [place] (Spiriva Handihaler), 1 CAP INH DAILY Verapamil HCl (Verapamil HCl ER), 240 MG PO DAILY Vitamin E (Vitamin E), 800 UNITS PO DAILY Scheduled PRN Ipratropium-Albuterol (Duoneb), 1 TREATMENT INH Q6H PRN for SOB/Wheezing Current Inpatient Medications Current Inpatient Medications Medications (Trade) Dose Ordered Sig/Duyen Route Start Time Stop Time Status Last Admin Dose Admin Acetaminophen (Tylenol Tab) 650 mg Q4H PRN PO 06/14/16 14:00 07/14/16 13:59 Ondansetron HCl (Zofran Inj) 4 mg Q6H PRN IV 06/14/16 14:00 07/14/16 13:59 Insulin Aspart (novoLOG ASPART) SLIDING SCALE G... Q4 SC 06/14/16 16:00 07/14/16 15:59 Atorvastatin Calcium (Lipitor Tab) 40 mg DAILY PO 06/15/16 09:00 07/15/16 08:59 Salmeterol Xinafoate/ Fluticasone (Advair Diskus 500/50 Inh) 1 puff BID INH 06/14/16 21:00 07/14/16 20:59 Metoprolol Succinate (Toprol Xl Tab) 150 mg DAILY PO 06/15/16 09:00 07/15/16 08:59 Future Hold Prednisone (PredniSONE TAB) 15 mg QAM PO 06/15/16 09:00 07/15/16 08:59 Future Hold Pregabalin (Lyrica Cap) 150 mg TID PO 06/14/16 14:00 07/14/16 13:59 Tiotropium [place] (Spiriva Handihaler Inhaler) 30 puff DAILY INH 06/15/16 09:00 07/15/16 08:59 Verapamil HCl (Calan-Sr Tab) 240 mg DAILY PO 06/15/16 09:00 07/15/16 08:59 Non-Formulary Medication (Insulin Glargine (Toujeo Solostar)) 70 unit TID SQ 06/14/16 14:00 07/14/16 13:59 UNV Metoprolol Tartrate (Lopressor Iv) 5 mg Q6 IV. 06/14/16 18:00 07/14/16 17:59 Hydralazine HCl 10 mg 10 mg Q6H PRN IV. 06/14/16 14:00 07/14/16 13:59 Pantoprazole Sodium 40 mg/ Syringe 10 ml @ 5 mls/min DAILY@11 IV 06/15/16 11:00 07/15/16 10:59 Doxycycline Hyclate/Dextrose (Vibramycin IV/ D5 100ml) 110 ml @ 50 mls/hr BID IV 06/14/16 21:00 06/24/16 20:59 Albuterol/ Ipratropium (Duoneb) 3 ml Q4 PRN INH 06/14/16 14:00 07/14/16 13:59 Heparin Sodium (Porcine) (Heparin Sq 5000 Unit/0.5ml) 5,000 unit Q8 SQ 06/14/16 22:00 07/14/16 21:59 Miscellaneous Information (Consult Glycemic Management Pharmacy) 1 ea UD PRN N/A 06/14/16 15:34 07/14/16 15:33 Nystatin 1 appln 1 appln TID EXT 06/14/16 21:00 07/14/16 20:59 Sodium Chloride 1,000 ml @ 200 mls/hr Q5H IV 06/14/16 14:30 07/14/16 14:29 Furosemide/Syringe (Lasix Inj/ Syringe) 4 ml @ 4 mls/min Q6H IV 06/14/16 16:00 07/14/16 15:59 Calcitonin [place] 370 inter.unit 370 inter.unit TODAY@1600 SQ 06/14/16 16:00 06/14/16 18:00 Zoledronic Acid 4 mg/Sodium Chloride 105 ml @ 210 mls/hr TODAY@1600 IV 06/14/16 16:00 06/14/16 20:00 Hydrocortisone Sodium Succinate/ Syringe (Solu-Cortef IV/ Syringe) 2 ml @ 4 mls/min Q8@0000,0800,1600 IV 06/14/16 16:00 07/14/16 15:59 Review of Systems See HPI for pertinent positives & negatives. A total of 10 systems reviewed and were otherwise negative. Physical Exam Date Time Temp Pulse Resp B/P Pulse Ox O2 Delivery O2 Flow Rate FiO2 06/14/16 14:04 72 14 130/58 96 BiPAP 06/14/16 13:02 70 16 128/58 96 BiPAP 50 06/14/16 12:41 69 99 06/14/16 12:30 96 BiPAP 3.0 50 06/14/16 12:18 70 14 182/76 95 Room Air 06/14/16 12:04 06/14/16 11:31 70 20 162/79 94 Nasal Cannula 3.0 06/14/16 11:06 88 18 175/83 90 Nasal Cannula 3.0 06/14/16 10:44 97 Nasal Cannula 3.0 06/14/16 10:22 68 06/14/16 10:19 90 Nasal Cannula 3.0 06/14/16 09:46 36.9 85 16 123/60 90 Nasal Cannula 3.0 GENERAL: Awake, alert, obese, tolerating NC. HENT: Normocephalic, atraumatic. Oropharynx unremarkable. Large neck circumference. EYES: Normal conjunctiva. Sclera non-icteric. NECK: Supple. No nuchal rigidity. FROM. No JVD. RESPIRATORY: Clear to auscultation. CARDIAC: Regular rate, normal rhythm. Extremities warm and well perfused. Pulses equal. ABDOMEN: Soft, distended. No tenderness to palpation. No rebound or guarding. No masses. LOWER EXTREMITIES: Calves are equal size bilaterally and non-tender. No edema. No discoloration. NEURO: Arousable, A&O x3. No sensory or motor deficits noted. SKIN: Chronic erythema bilaterally from knee to feet. Small superficial wounds noted on R second toe. Laboratory Results Last 24 Hours Test 06/14/16 10:25 06/14/16 11:00 06/14/16 11:54 06/14/16 14:22 White Blood Count 12.45 K/uL Red Blood Count 3.58 M/uL Hemoglobin 11.2 g/dL Hematocrit 35.1 % Mean Corpuscular Volume 98.0 fL Mean Corpuscular Hemoglobin 31.3 pg Mean Corpuscular Hemoglobin Concent 31.9 g/dl Platelet Count 229 K/uL Mean Platelet Volume 10.4 fL Neutrophils (%) (Auto) 73.5 % Lymphocytes (%) (Auto) 7.8 % Monocytes (%) (Auto) 17.0 % Eosinophils (%) (Auto) 1.4 % Basophils (%) (Auto) 0.1 % Neutrophils # (Auto) 9.15 K/uL Lymphocytes # (Auto) 0.97 K/uL Monocytes # (Auto) 2.12 K/uL Eosinophils # (Auto) 0.17 K/uL Basophils # (Auto) 0.01 K/uL RDW Standard Deviation 66.3 fL RDW Coefficient of Variation 18.4 % Immature Granulocyte % (Auto) 0.2 % Immature Granulocyte # (Auto) 0.03 K/uL Prothrombin Time 10.6 SECONDS Prothromb Time International Ratio 1.0 Activated Partial Thromboplast Time 18.9 SECONDS Partial Thromboplastin Ratio 0.7 Sodium Level 135 mmol/L 136 mmol/L Potassium Level 3.7 mmol/L 3.6 mmol/L Chloride Level 88 mmol/L 90 mmol/L Carbon Dioxide Level 47 mmol/L 45 mmol/L Anion Gap 0.0 mmol/L 1.0 mmol/L Blood Urea Nitrogen 103 mg/dl 103 mg/dl Creatinine 2.50 mg/dl 2.40 mg/dl Est Creatinine Clear Calc Drug Dose 33.8 ml/min 35.3 ml/min Estimated GFR () 23.1 24.3 Estimated GFR (Non- 19.9 20.9 BUN/Creatinine Ratio 41.1 42.8 Random Glucose 159 mg/dl 159 mg/dl Calcium Level 14.5 mg/dl 13.7 mg/dl Magnesium Level 2.5 mg/dl Total Bilirubin 0.3 mg/dl Direct Bilirubin < 0.1 mg/dl Aspartate Amino Transf (AST/SGOT) 27 U/L Alanine Aminotransferase (ALT/SGPT) 38 U/L Alkaline Phosphatase 78 U/L Total Creatine Kinase 159 U/L Creatine Kinase MB 4.4 ng/ml Creatine Kinase MB Ratio 2.8 Troponin I 0.028 ng/ml Total Protein 9.2 gm/dl Albumin 3.1 gm/dl Thyroid Stimulating Hormone (TSH) 2.170 uIu/ml Random Cortisol 18.33 mcg/dl Urine Color YELLOW Urine Appearance CLEAR Urine pH 5.0 Urine Specific [place] 1.011 Urine Protein NEG Urine Glucose (UA) NEG Urine Ketones NEG Urine Occult Blood NEG Urine Nitrite NEG Urine Bilirubin NEG Urine Urobilinogen NEG Urine Leukocyte Esterase NEG Venous Blood pH 7.34 7.29 Venous Blood Partial Pressure CO2 90 mmHg 93 mmHg Venous Blood Partial Pressure O2 31 mmHg 33 mmHg Venous Blood HCO3 47 mmol/L 44 mmol/L Venous Blood Oxygen Saturation < 60.0 % < 60.0 % Venous Blood Base Excess 17.1 mmol/L 14.3 mmol/L Ionized Calcium 1.89 mmol/l Parathyroid Hormone (Intact) 10.2 pg/mL Test 06/14/16 14:55 06/14/16 15:02 06/14/16 15:11 Assessment & Plan PROBLEM LIST: 1. Hypercalcemia, initial calcium on arrival 14.5. Etiology unclear at this point but differential is likely due to change in diuretic regime, and includes hyperparathyroidism, vit D deficiency, malignancy, sarcoid. 2. Acute on chronic respiratory failure 3. Chronic cellulitis, on chronic antibiotics 4. Acute on chronic renal insufficiency 5. Morbid obesity 6. Pulmonary nodules, stable on recent CT 02/13/16 7. Frequent falls 8. Chronic venous insufficiency 9. Type II Diabetes Mellitus [place] II SCORE: 16 on 06/14/16- 22% estimated non operative mortality SOFA SCORE: 5 on 06/14/16 OPHTHALMIC PATHOLOGIST/Neuro: GCS: 15 Focal Signs: None Sedation/pain control:None CT head dated 06/14/16: Motion artifact. No definite acute intracranial abnormality. Restraints: None Neurologic prophylaxis: Not indicated Respiratory: On BiPAP with FiO2 50%, sats 96% Chest X-ray 06/14/16: Bibasilar segmental atelectasis, mild pulmonary vascular congestion remains unchanged HOB up 30 degrees: Yes Stress dose steroids started Cardiovascular: PO Home meds continued: Metoprolol tartrate 150mg XL, Verapamil 240mg daily, Atorvastatin 40mg qHS Rhythm: Sinus EKG: NSR 67bpm, QTc 397 ECHO: Echo dated 07/24/2015: EF 70%, Class I diastolic disfunction, LV normal in size, mild hypertrophy Fluids/Renal: BMP q8h IV Fluids: NSS 200mL/hour Diuretics: Lasix 40mg q6h IV Net Urine: Goal 100-150mL/hour Morton: Present Nephrology consulted Labs ordered for hypercalcemia workup - ESR, RAMIRO level, Vit D level, Thyroxine, Lipase, Phosphorus, PTH, PTHrP, Protein electrophoresis, Urine protein/ creatinine ratio Bisphosphonates started GI/Nutrition: Feeding: NPO for now Prophylaxis: On PPI Bowel movements: None yet Stool softeners: N/A Endocrine: Last 24 hour glucose: 159 Insulin protocol: Yes; Drip: No Hematology: Hemoglobin 11.2, Hct 35.1 DVT prophylaxis: Heparin 5000 3 times a day Infectious Disease/Immunology: Tmax: Afebrile CV Lines (date): Arterial line placed 06/14/16 Antimicrobials: Continue home doxycycline Cultures: Blood x2: pending Urine: pending MRSA: pending Resident Physician Supervision Note: Dr. Perdomo was resident physician during care of patient. I separately evaluated patient and did history and exam. I discussed the case with the resident and generally agree with the findings and plan. Patient has severe hypocalcemia, most notably she was recently started on thiazide diuretics. Of note the home health aid was following her for pulmonary nodules she has not been formally diagnosed with sarcoidosis. She has a history of CHF, obstructive sleep apnea, obesity hypoventilation syndrome and currently has acute on chronic respiratory failure. In review of prior medical record she's previously been a DO NOT RESUSCITATE, she has had a discussion recently with her as well as at the bedside today with myself and she does want to undergo cardiac CPR in event of cardiac arrest, long discussion regarding whether or not she would want to be intubated. Currently with the hypercalcemia it is felt that this is a correctable issue and accordingly wouldn 't want to be intubated in event of respiratory arrest. Explained to patient and the that even if the hypercalcemia is correctable just placing a endotracheal tube in her may lead to chronic respiratory failure and necessitate a tracheostomy. Both are agreeable to this at this time. The difficulty will be giving enough fluid to volume expand and continue to hydrate her while giving Lasix 4 adequate urine output. She is a difficult airway given body habitus, her BMI is 55 she has a short neck. Currently will be administering normal saline at 200 MLS per hour and giving Lasix 40 mg every 6 hours and attempts to have urine output somewhere between 101 150 ML's per hour. She was on bilevel ventilation while in the emergency room, she was able to be weaned off this upon arrival in the ICU. This is my first attempt to stave off acute respiratory failure as well as stopping fluids if she appears to be developing CHF. I have also started calcitonin, and ordered bisphosphonates. Checking labs every 6 hours. Patient is critically ill due to severe hypercalcemia and acute on chronic hypoxic and hypercarbic respiratory failure. I have personally spent 85 minutes of critical care time in the direct management of this patient. This is a life/ limb threatening event. This includes time spent evaluating patient, direct bedside care, chart review, placing orders, interpretation of diagnostic studies , discussion with consultants, patient, and family members, as well as other required patient management activities. This time is exclusive of all separately billable procedures, and teaching time and separate from and in addition to any other critical care service time. Documented By: Jefferson Beasley DO Resident Tracking Resident Involvement: Resident Care Provided Care Provided: Adult Hospital Medicine (ICU)
[2016-06-14] MEDS: HYDROCORTISONE IV 100 MG in SYRINGE 0 ML IV SCH (16:42)
[2016-06-14] MEDS: FUROSEMIDE INJ 40 MG in SYRINGE 0 ML IV SCH ×2 (16:43→21:48)
[2016-06-14] MEDS: INSULIN ASPART 100 UNITS/ML 3 ML PEN SC SCH ×2 (16:46→20:51)
[2016-06-14] MEDS ORDERED: DEXTROSE 50% 50 ML SYR IV PRN (17:00)
[2016-06-14] MEDS ORDERED: GLUCOSE 40% GEL 15 GM TUBE PO PRN (17:00)
[2016-06-14] MEDS ORDERED: GLUCOSE 10 TABS/TUBE PO PRN (17:00)
[2016-06-14] MEDS ORDERED: GLUCAGON FOR INJ 1 MG VIAL SQ PRN (17:00)
--- NOTE | 2016-06-14 17:10 | Pharmacy Progress Note ---
Glycemic Control Intl Consult Date of Service Jun 14, 2016. Scope Glycemic Pharmacist consulted by Maegan Patel on 06/14/2016 for glycemic control and to write orders per [facility] inpatient glycemic control protocol Objective Weight (Kilograms): 147.600 Accuchecks BSG (last 24hrs): Test 06/14/16 10:25 06/14/16 14:22 06/14/16 16:32 Random Glucose 159 mg/dl (70-99) 159 mg/dl (70-99) Bedside Glucose 181 mg/dl (70-90) Laboratory Data (last 24hrs) Test 06/14/16 10:25 06/14/16 14:22 Anion Gap 0.0 mmol/L 1.0 mmol/L BUN/Creatinine Ratio 41.1 42.8 Blood Urea Nitrogen 103 mg/dl 103 mg/dl Creatinine 2.50 mg/dl 2.40 mg/dl Potassium Level 3.7 mmol/L 3.6 mmol/L Sodium Level 135 mmol/L 136 mmol/L White Blood Count 12.45 K/uL Red Blood Count 3.58 M/uL Hemoglobin 11.2 g/dL Hematocrit 35.1 % Mean Corpuscular Volume 98.0 fL Mean Corpuscular Hemoglobin 31.3 pg Mean Corpuscular Hemoglobin Concent 31.9 g/dl Platelet Count 229 K/uL Mean Platelet Volume 10.4 fL Neutrophils (%) (Auto) 73.5 % Lymphocytes (%) (Auto) 7.8 % Monocytes (%) (Auto) 17.0 % Eosinophils (%) (Auto) 1.4 % Basophils (%) (Auto) 0.1 % Neutrophils # (Auto) 9.15 K/uL Lymphocytes # (Auto) 0.97 K/uL Monocytes # (Auto) 2.12 K/uL Eosinophils # (Auto) 0.17 K/uL Basophils # (Auto) 0.01 K/uL Recent Pertinent Medications Outpatient Anti-diabetic Regimen: * Toujeo 70 units TID plus Novolog 50 units with breakfast, 50 units with lunch , 90 units with dinner, and 40 units at bedtime (confirmed with [employer] record) * A1c = 6.3 % 05/20/2016 Risk Factors for Insulin Resistance: * Steroids: hydrocortisone 100 mg IV q8 hours * Infection: chronic cellulitis currently on IV doxycycline * Diet: NPO Assessment & Plan ASSESSMENT: * ADA & AACE recommend a goal blood sugar range 140-180 mg/dl for the majority of critically ill & non-critically ill patients. However, more stringent targets may be selected in individual cases. 06/14/2016 * Ms Gaytan is a 60 y/o F admitted with a fall and hypercarbic respiratory failure. She is well-known to the glycemic control. The patient is well controlled on her home regimen. HOWEVER, according to previous information, it is necessary to reduce the patient's insulin dosing. Previously she required ~ 250 units/day. * Based upon the previous admission when the patient had a diet, the patient required 240 units of insulin (equally divided between basal and bolus insulin) . She requires around 110 units of basal insulin per day. Even based upon the best estimated total insulin/day calculator with a stress of 2 110 units SQ BID is recommended. This appears that her basal is close to 110 units. I will continue Lantus twice daily with a scale based upon blood sugars with reduced doses due to the NPO status. I am not entirely sure how she will react. * Previous data also supported the use of a correction factor of 5:1 and a carbohydrate ratio of 2:1. Accuchecks every 4 hours will be utilized to ensure the patient's blood sugars do not rise too rapidly with hydrocortisone use. PLAN FOR INPATIENT GLYCEMIC CONTROL: * Basal insulin with LANTUS 40 units if blood sugar < 140 mg/dL; 50 units is blood sugar 140-180 mg/dL; 60 units if above 180 mg/dl units SQ BID * Correctional Insulin with NOVOLOG Q4hrs while NPO * Goal Range: Low 140 mg/dL - High 180 mg/dL * Correction Factor: 5 mg/dL/unit * Nutritional / Prandial insulin per carb ratio of 1 unit per 2 grams CHO consumed * Please note that the plan above was derived based on current level of insulin resistance and hospital stress. These recommendations are appropriate for inpatient admission only. Plan of care upon discharge will need to be reassessed to avoid potential outpatient hypo/hyperglycemia. Thank you.
--- NOTE | 2016-06-14 17:32 | EMERGENCY ROOM VISIT NOTE ---
History Report prepared by [place]: Ney Burgos Under the Supervision of: Dr. Papito Galindo M.D. First contact with patient: 09:55 Chief Complaint: FALL Stated Complaint: FALL History of Present Illness The patient is a 60 year old female who presents to the Emergency Room with complaints of worsening weakness that started last week. Associated symptoms include discomfort with urination, fatigue, and reported tremor of the hands. 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 She was attempting to walk with her walker when she fell on to her right side. She hit her lower back on her banister during the fall. Patient rates her lower back pain a 9/10 in severity. She denies loss of consciousness or hitting her head during the fall. Patient's reports a significant history of falls recently. 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 She states losing 16 pounds in the past week. She believes this weakness and sudden weight loss is related to the start of this medication. Patient is also prescribed 2 antibiotics for cellulitis of the right leg. Patient has a history of kidney disease. Pt denies LOC, headache, fevers, chills, diaphoresis, visual changes, neck pain , chest pain, breathing difficulties, nausea, vomiting, abdominal pain, melena, hematochezia, numbness, or other complaints. Source of History: patient, spouse/significant other Onset: Last week Position: other (Global ) Timing: worsening Modifying Factors (Relieving): other (None) Associated Symptoms: + back pain, + fatigue, + urinary symptoms, No LOC, No abdominal pain, No diaphoresis, No headache, No hematochezia, No melena, No nausea, No vomiting Review of Systems See HPI for pertinent positives and negatives. A total of ten systems were reviewed and were otherwise negative. Past Medical & Surgical Medical Problems: (1) Acute kidney injury (2) Acute on chronic diastolic (congestive) heart failure (3) Acute respiratory failure with hypoxia and hypercapnia (4) Anemia (5) Cellulitis Of Leg (6) Cervical Disc Degen (7) CHF (congestive heart failure) (8) Chronic kidney disease (CKD) stage G3b/A1, moderately decreased glomerular filtration rate (GFR) between 30-44 mL/min/1.73 square meter and albuminuria creatinine ratio less than 30 mg/g (9) COPD (chronic obstructive pulmonary disease) (10) Cystitis (11) Diab Mariama Wo Compl, Type Ii Or Unspec Type, Uncontrolled (12) Diabetes (13) Edema (14) Hypercalcemia (15) Hyponatremia (16) Metabolic alkalosis with respiratory acidosis (17) Metabolic encephalopathy (18) Morbid obesity with BMI of 50.0-59.9, adult (19) Obesity hypoventilation syndrome (20) Ovarian Cyst Nec/Nos (21) Pulmonary Collapse (22) Pulmonary nodules (23) Sciatica (24) Venous stasis dermatitis of both lower extremities Family History Cancer Diabetes mellitus Gallbladder disease Heart disease Lung disease Social History Smoking Status: Former Smoker Drug Use: none Marital Status: Housing Status: lives with family Occupation Status: unemployed Current/Historical Medications Scheduled Allopurinol (Zyloprim), 100 MG PO DAILY Ascorbic Acid (Vitamin C 500 mg), 1,000 MG PO DAILY Atorvastatin (Lipitor), 40 MG PO DAILY Bumetanide (Bumetanide), 3 MG PO BID17 Cholecalciferol (Vitamin D3), 1,000 UNITS PO DAILY Ciprofloxacin (Ciprofloxacin HCl), 500 MG PO BID Cyanocobalamin (Vitamin B-12), 2,500 MCG PO DAILY Doxycycline Hyclate (Doxycycline Hyclate), 100 MG PO DAILY Fluticasone Prop/Salmeterol (Advair Diskus 500/50 60 Dose), 1 PUFF INH BID Insulin Aspart (Novolog Flexpen), 50 UNITS SQ W/BREAKFAST Insulin Aspart (Novolog Flexpen), 50 UNITS SQ W/LUNCH Insulin Aspart (Novolog Flexpen), 90 UNITS SQ W/SUPPER Insulin Aspart (Novolog Flexpen), 40 UNITS SQ HS Insulin Glargine (Toujeo Solostar), 70 UNIT SQ TID Lorcaserin Hcl (Belviq), 10 MG PO BID Metolazone (Zaroxolyn), 5 MG PO DAILY Metoprolol Succ (Toprol Xl) (Toprol-Xl ), 150 MG PO DAILY Multiple Vitamins W/ Minerals (One Daily For Women), 1 TAB PO DAILY Prednisone (Prednisone), 15 MG PO QAM Pregabalin (Lyrica), 150 MG PO TID Pyridoxine (Vitamin B6), 200 MG PO DAILY Spironolactone (Aldactone), 50 MG PO BID Tiotropium [place] (Spiriva Handihaler), 1 CAP INH DAILY Verapamil HCl (Verapamil HCl ER), 240 MG PO DAILY Vitamin E (Vitamin E), 800 UNITS PO DAILY Scheduled PRN Ipratropium-Albuterol (Duoneb), 1 TREATMENT INH Q6H PRN for SOB/Wheezing Allergies Coded Allergies: Daptomycin (Verified Allergy, Mild, HIVES, 06/14/16) itching Codeine (Verified Allergy, Unknown, unknown, 06/14/16) has tolerated morphine Iodine (Verified Allergy, Unknown, 06/14/16) Shellfish (Verified Allergy, Unknown, 06/14/16) Sulfamethoxazole w/Trimethoprim (Verified Allergy, Unknown, RASH, 06/14/16) Physical Exam Vital Signs Date Time Temp Pulse Resp B/P Pulse Ox O2 Delivery O2 Flow Rate FiO2 06/14/16 13:02 70 16 128/58 96 BiPAP 50 06/14/16 12:41 69 99 06/14/16 12:30 96 BiPAP 3.0 50 06/14/16 12:18 70 14 182/76 95 Room Air 06/14/16 12:04 06/14/16 11:31 70 20 162/79 94 Nasal Cannula 3.0 06/14/16 11:06 88 18 175/83 90 Nasal Cannula 3.0 06/14/16 10:44 97 Nasal Cannula 3.0 06/14/16 10:22 68 06/14/16 10:19 90 Nasal Cannula 3.0 06/14/16 09:46 36.9 85 16 123/60 90 Nasal Cannula 3.0 Physical Exam GENERAL: Awake but tired appearing. HENT: Dry mucous membranes noted. Normocephalic, atraumatic. EYES: Normal conjunctiva. Sclera non-icteric. NECK: Supple. No nuchal rigidity. FROM. No JVD. RESPIRATORY: Clear to auscultation. CARDIAC: Regular rate, normal rhythm. Extremities warm and well perfused. Pulses equal. ABDOMEN: Soft, non-distended. No tenderness to palpation. No rebound or guarding. No masses. RECTAL: Deferred. MUSCULOSKELETAL: Low lumbar midline tenderness noted. Chest examination reveals no tenderness. No joint edema. LOWER EXTREMITIES: Chronic venous discoloration noted, erythematous, 2+ pedal edema noted bilaterally. NEURO: Normal sensorium. No sensory or motor deficits noted. SKIN: No rash or jaundice noted. Medical Decision & Procedures ER Provider Diagnostic Interpretation: X ray results as stated below per my interpretation and radiologist interpretation. Other radiology results as stated below per my review and radiologist interpretation LUMBAR SPINE CT CT DOSE: HISTORY: low back pain, fall, weakness TECHNIQUE: Multiaxial CT images of the lumbar spine were performed and reformatted in the sagittal and coronal plane without the use of contrast. COMPARISON: None. FINDINGS: No fractures. No subluxation. Paraspinal soft tissues are unremarkable. Moderate facet degenerative changes within the lower lumbar spine. Moderate disc space narrowing at L1-L2 and L2-L3. Mild disc space narrowing at L3-L4 and L4-L5. The visualized sacrum is intact. A 3.8 cm left adrenal myelolipoma. IMPRESSION: No fractures within the lumbar spine. Electronically signed by: Villa Vidales M.D. 06/14/2016 11:47 AM Dictated Date/Time: 06/14/2016 11:[address]AST CT DOSE: 3387.43 mGy.cm HISTORY: EVALUATE WEAKNESS TECHNIQUE: Multiaxial CT images of the head were performed without the use of intravenous contrast. Automated exposure control was utilized for this study. Comparison: Head CT 11/02/2014. Findings: Motion artifact. The paranasal sinuses and mastoid air cells are clear. The calvarium and skull base are intact. The ventricles and sulci are within normal limits. There is no mass, hematoma, midline shift, or acute infarct. Impression: Motion artifact. No definite acute intracranial abnormality. Electronically signed by: Villa Vidales M.D. 06/14/2016 11:44 AM Dictated Date/Time: 06/14/2016 11:38 AM CHEST ONE VIEW PORTABLE HISTORY: Weakness. Fall. EVALUATE WEAKNESS COMPARISON: Chest 05/15/2016. FINDINGS: The heart remains mildly enlarged. Bibasilar linear densities and mild congestive change remain unchanged. No pleural effusions. No pneumothorax. IMPRESSION: No change from the prior study. Bibasilar subsegmental atelectasis and mild pulmonary vascular congestion remains unchanged. Electronically signed by: Villa Vidales M.D. 06/14/2016 10:32 AM Dictated Date/Time: 06/14/2016 10:31 AM Laboratory Results 06/14/16 10:25 Red Blood Count 3.58, Mean Corpuscular Volume 98.0, Mean Corpuscular Hemoglobin 31.3, Mean Corpuscular Hemoglobin Concent 31.9, Mean Platelet Volume 10.4, Neutrophils (%) (Auto) 73.5, Lymphocytes (%) (Auto) 7.8, Monocytes (%) (Auto) 17.0, Eosinophils (%) (Auto) 1.4, Basophils (%) (Auto) 0.1, Neutrophils # (Auto ) 9.15, Lymphocytes # (Auto) 0.97, Monocytes # (Auto) 2.12, Eosinophils # (Auto ) 0.17, Basophils # (Auto) 0.01 Test 06/14/16 10:25 06/14/16 11:00 White Blood Count 12.45 K/uL (4.8-10.8) Red Blood Count 3.58 M/uL (4.2-5.4) Hemoglobin 11.2 g/dL (12.0-16.0) Hematocrit 35.1 % (37-47) Mean Corpuscular Volume 98.0 fL (80-100) Mean Corpuscular Hemoglobin 31.3 pg (25-34) Mean Corpuscular Hemoglobin Concent 31.9 g/dl (32-36) Platelet Count 229 K/uL (130-400) Mean Platelet Volume 10.4 fL (7.4-10.4) Neutrophils (%) (Auto) 73.5 % Lymphocytes (%) (Auto) 7.8 % Monocytes (%) (Auto) 17.0 % Eosinophils (%) (Auto) 1.4 % Basophils (%) (Auto) 0.1 % Neutrophils # (Auto) 9.15 K/uL (1.4-6.5) Lymphocytes # (Auto) 0.97 K/uL (1.2-3.4) Monocytes # (Auto) 2.12 K/uL (0.11-0.59) Eosinophils # (Auto) 0.17 K/uL (0-0.5) Basophils # (Auto) 0.01 K/uL (0-0.2) RDW Standard Deviation 66.3 fL (36.4-46.3) RDW Coefficient of Variation 18.4 % (11.5-14.5) Immature Granulocyte % (Auto) 0.2 % Immature Granulocyte # (Auto) 0.03 K/uL (0.00-0.02) Prothrombin Time 10.6 SECONDS (9.0-12.0) Prothromb Time International Ratio 1.0 (0.9-1.1) Activated Partial Thromboplast Time 18.9 SECONDS (21.0-31.0) Partial Thromboplastin Ratio 0.7 Magnesium Level 2.5 mg/dl (1.8-2.4) Total Bilirubin 0.3 mg/dl (0.2-1) Direct Bilirubin < 0.1 mg/dl (0-0.2) Aspartate Amino Transf (AST/SGOT) 27 U/L (15-37) Alanine Aminotransferase (ALT/SGPT) 38 U/L (12-78) Alkaline Phosphatase 78 U/L (45-117) Total Creatine Kinase 159 U/L (26-192) Creatine Kinase MB 4.4 ng/ml (0.5-3.6) Creatine Kinase MB Ratio 2.8 (0-3.0) Troponin I 0.028 ng/ml (0-0.045) Total Protein 9.2 gm/dl (6.4-8.2) Albumin 3.1 gm/dl (3.4-5.0) Thyroid Stimulating Hormone (TSH) 2.170 uIu/ml (0.300-4.500) Random Cortisol 18.33 mcg/dl Urine Color YELLOW Urine Appearance CLEAR (CLEAR) Urine pH 5.0 (4.5-7.5) Urine Specific [place] 1.011 (1.000-1.030) Urine Protein NEG (NEG) Urine Glucose (UA) NEG (NEG) Urine Ketones NEG (NEG) Urine Occult Blood NEG (NEG) Urine Nitrite NEG (NEG) Urine Bilirubin NEG (NEG) Urine Urobilinogen NEG (NEG) Urine Leukocyte Esterase NEG (NEG) Laboratory results reviewed by me Medications Administered Medications (Trade) Dose Ordered Sig/Duyen Route Start Time Stop Time Status Last Admin Dose Admin Ondansetron HCl (Zofran Inj) 4 mg NOW STAT IV 06/14/16 10:08 06/14/16 10:09 DC 06/14/16 10:34 4 MG Hydromorphone HCl 0.5 mg 0.5 mg Q15M PRN IV 06/14/16 10:15 06/14/16 15:27 DC 06/14/16 11:32 0.5 MG Sodium Chloride 1,000 ml @ 999 mls/hr Q1H1M STAT IV 06/14/16 11:57 06/14/16 12:57 DC 06/14/16 12:11 999 MLS/HR Sodium Chloride (Nss 1000ml) 1,000 ml @ 200 mls/hr Q5H STAT IV 06/14/16 11:57 06/14/16 15:04 DC 06/14/16 14:03 200 MLS/HR ECG Indication: weakness Rate (beats per minute): 67 Rhythm: normal sinus Findings: no acute ischemic change, no ectopy Comparison ECG Date: May 05, 2016 Change: no significant change ED Course 1000: The patient was evaluated in room C4. A complete history and physical exam was performed. 1008: Zofran Injection 4 mg IV. 1015: Ordered Dilaudid Injection 0.5 mg IV. 1111: Patient is at CT. 1157: Ordered Sodium Chloride 1,000 ml @ 200 mls/hr IV, Sodium Chloride 1,000 ml @ 999 mls/hr IV. 1216: I discussed the patient's case with [place] [place] He will evaluate the patient for further management and care. 1220: I called respiratory to have the patient placed on bi-pap. 1229: I updated Maegan Patel [place] [place] on the patient's case. Medical Decision Triage Nursing notes reviewed. The patient's presentation and history were concerning for weakness and a fall. Etiologies such as metabolic, infection, hypo/hyperglycemia, electrolyte abnormalities, cardiac sources, intracerebral event, toxicologic, neurologic, trauma, fracture, as well as others were entertained. The patient was evaluated. She clinically looked dry. Blood work was obtained. Chest x-ray was unremarkable. She had a slight leukocytosis. Urinalysis was negative. TSH and cardiac markers were negative. Chemistry panel revealed an elevated creatinine at 2.5. Her CO2 was also elevated at 47. The patient was severely hypercalcemic. The patient's VBG revealed a PCO2 of 90. This was concerning for hypercarbia. The patient had a negative head CT as well as lumbar spine CT. She was placed on BiPAP. She was hydrated with saline. Her pain and symptoms are also controlled with Dilaudid and Zofran. Consultation was made with internal medicine. The patient will be evaluated for further treatment. The chart was completed utilizing Dragon Speech voice recognition software. Grammatical errors, random word insertions, pronoun errors, and incomplete sentences are an occasional consequence of this system due to software limitations, ambient noise, and hardware issues. Any formal questions or concerns about the content, text, or information contained within the body of this dictation should be directly addressed to the physician for clarification. Consults Time Called: 1159 Consulting Physician: Dr. Krishna [place] [place] Returned Call: 1216 I discussed the patient's case with Dr. Krishna [place] [place] He will evaluate the patient for further management and care. Additional Consults: Time Called: 1229 Consulted Physician: Maegan Patel ([facility] [place] Returned Call: 1229 Additional Comments: I updated Maegan Patel ([facility] [place] on the patient's case. Impression Primary Impression: Hypercalcemia Additional Impressions: Weakness Fall Acute kidney injury Hypercarbia Critical Care I have personally spent greater than 30 minutes of critical care time in the direct management of this patient. This includes bedside care, interpretation of diagnostic studies, and testing, discussion with consultants, patient, and family members, and other required patient management activities. This 30 minutes is in excess of all separately billable procedures. Scribe Attestation The scribe's documentation has been prepared under my direction and personally reviewed by me in its entirety. I confirm that the note above accurately reflects all work, treatment, procedures, and medical decision making performed by me. Departure Information Dispostion Being Evaluated By Hospitalist Referrals Emily Isaac C.R.N.P (PCP) Patient Instructions My [facility] Problem Qualifiers
[2016-06-14] MEDS: METOPROLOL TARTRATE 1 MG/ML VIAL IV. SCH (18:21)
[2016-06-14] MEDS: SODIUM CHLORIDE 0.9% 1000ML 1,000 ML IV SCH ×2 (18:22→19:41)
[2016-06-14] MEDS: FLUTICASONE/SALMETEROL (ADVAIR) 500/50 INH 14 PUFF INH SCH (20:52)
[2016-06-14] MEDS: NYSTATIN OINT 15 GM TUBE EXT SCH (20:52)
[2016-06-14] MEDS: INSULIN GLARGINE SC SCH (20:55)
[2016-06-14] MEDS ORDERED: CIPROFLOXACIN / D5W 400 MG in PREMIXED IN D5W 200 ML IV SCH (21:00)
[2016-06-14] MEDS: DOXYCYCLINE IV 100 MG in DEXTROSE 5% 100ML 100 ML IV SCH (21:19)
[2016-06-14 21:36] LABS: BUN/CREATININE RATIO 45.2 (10-20); CREATININE 2.1 mg/dl (0.60-1.20); MAGNESIUM 2.2 mg/dl (1.8-2.4); POTASSIUM 3.8 mmol/L (3.5-5.1)
[2016-06-14] MEDS: HEPARIN SOD 5000 UNIT/0.5 ML CARP SQ SCH (21:49)
[2016-06-15] VITALS (21 sets, daily range): BP systolic 125–173; BP diastolic 54–79; PULSE 80–92; TEMP 36.6–37.3; O2SAT 89–95
[2016-06-15] MEDS ORDERED: CALCITONIN SALMON SC SCH ×2
[2016-06-15] MEDS: HYDROCORTISONE IV 100 MG in SYRINGE 0 ML IV SCH ×2 (00:20→08:44)
[2016-06-15] MEDS: METOPROLOL TARTRATE 1 MG/ML VIAL IV. SCH ×4 (00:21→18:43)
[2016-06-15] MEDS: INSULIN ASPART 100 UNITS/ML 3 ML PEN SC SCH ×6 (00:23→20:00)
[2016-06-15] MEDS: SODIUM CHLORIDE 0.9% 1000ML 1,000 ML IV SCH ×2 (01:02→06:16)
[2016-06-15 03:49] LABS: COMPLETE YES; EOS % 0.5 %; IG% 0.3 %; LYMPH % 5.9 %; LYMPH ABS # 0.61 K/uL (1.2-3.4); MEAN CELL VOLUME 98.8 fL (80-100); MEAN CORPUSCULAR HEMOGLOBIN 30.6 pg (25-34); MEAN CORPUSCULAR HGB CONC 30.9 g/dl (32-36); MEAN PLATELET VOLUME 10.1 fL (7.4-10.4); MONO % 9.2 %; NEUT % 84.1 %; PLATELET COUNT 193 K/uL (130-400); RED BLOOD COUNT 3.24 M/uL (4.2-5.4); WHITE BLOOD COUNT 10.27 K/uL (4.8-10.8)
[2016-06-15 04:14] LABS: BUN/CREATININE RATIO 40.6 (10-20); CALCIUM 12.7 mg/dl (8.5-10.1); CREATININE 2.2 mg/dl (0.60-1.20); MAGNESIUM 1.9 mg/dl (1.8-2.4); POTASSIUM 3.6 mmol/L (3.5-5.1)
[2016-06-15] MEDS: FUROSEMIDE INJ 40 MG in SYRINGE 0 ML IV SCH (04:53)
[2016-06-15] MEDS: HEPARIN SOD 5000 UNIT/0.5 ML CARP SQ SCH ×3 (06:17→21:46)
[2016-06-15 06:56] LABS: URINE TOTAL PROTEIN < 5.0 mg/dl (0-11.9)
[2016-06-15 08:35] LABS: IPAP 14; ISTAT ARTERIAL BLOOD GAS HCO3 45 meq/L (19-24); ISTAT ARTERIAL BLOOD GAS PCO2 85 mmHg (35-46); ISTAT ARTERIAL BLOOD GAS PO2 110 mmHg (80-95); ISTAT ARTERIAL BLOOD GAS pH 7.33 (7.35-7.45); ISTAT CARBON DIOXIDE > 40 mEq/l (24-31); ISTAT DELIVERY SYSTEM BIPAP; ISTAT FIO2 60 %; ISTAT RATE 12; ISTAT SITE Art Line
[2016-06-15] MEDS: FLUTICASONE/SALMETEROL (ADVAIR) 500/50 INH 14 PUFF INH SCH ×2 (08:44→21:20)
[2016-06-15] MEDS: NYSTATIN OINT 15 GM TUBE EXT SCH ×3 (08:45→21:07)
[2016-06-15] MEDS: DOXYCYCLINE IV 100 MG in DEXTROSE 5% 100ML 100 ML IV SCH ×2 (08:45→21:20)
[2016-06-15] MEDS: TIOTROPIUM BROMIDE 5 PUFF/90 MCG INH INH SCH (08:45)
[2016-06-15] MEDS: INSULIN GLARGINE SC SCH ×2 (08:49→21:22)
[2016-06-15] MEDS ORDERED: METOPROLOL SUCC 50MG EXT REL TAB PO SCH (09:00)
[2016-06-15] MEDS ORDERED: CALCITONIN SALMON 400 INTER.UNIT/2 ML SQ ONE (09:00)
[2016-06-15] MEDS ORDERED: TIOTROPIUM BROMIDE 5 PUFF/90 MCG INH INH SCH (09:00)
[2016-06-15 09:33] LABS: BUN/CREATININE RATIO 41.3 (10-20); CALCIUM 11.6 mg/dl (8.5-10.1); MAGNESIUM 1.9 mg/dl (1.8-2.4); POTASSIUM 3.3 mmol/L (3.5-5.1)
--- NOTE | 2016-06-15 10:23 | Critical Care Progress Note ---
Critical Care Progress Note Date of Service Jun 15, 2016. ICU Day ICU Day Number: [address] Beasley Subjective Feels much improved, no chest pain, no shortness of breath. Complaining of mild back pain requesting hydrocodone which she takes twice daily for her chronic back pain. Objective GENERAL: Awake, alert, obese, HENT: Normocephalic, atraumatic. Oropharynx unremarkable. Large neck circumference. EYES: Normal conjunctiva. Sclera non-icteric. NECK: Supple. No nuchal rigidity. FROM. No JVD. RESPIRATORY: Clear to auscultation. CARDIAC: Regular rate, normal rhythm. Extremities warm and well perfused. Pulses equal. ABDOMEN: Soft, distended. No tenderness to palpation. No rebound or guarding. No masses. LOWER EXTREMITIES: Calves are equal size bilaterally and non-tender. No discoloration. NEURO: Alert, oriented 3 SKIN: Chronic erythema bilaterally from knee to feet. Small superficial wounds noted on R second toe. Current SOFA Score SOFA Score Response (Comments) Value SaO2 / FIO2 142 - 220 2 Creatinine (mg/dL) 2.0 - 3.4 2 Total 4 Previous SOFA Scores 5 Assessment & Plan (1) Hypercarbia (2) Cellulitis Of Leg (3) Respiratory failure with hypercapnia (4) Shortness of breath (5) COPD (chronic obstructive pulmonary disease) (6) Respiratory acidosis (7) Pulmonary nodules (8) Venous stasis dermatitis of both lower extremities (9) Hypercalcemia (10) Morbid obesity with BMI of 50.0-59.9, adult (11) Obesity hypoventilation syndrome (12) Acute on chronic respiratory failure (13) Acute kidney injury (14) Chronic kidney disease (CKD) stage G3b/A1, moderately decreased glomerular filtration rate (GFR) between 30-44 mL/min/1.73 square meter and albuminuria creatinine ratio less than 30 mg/g (15) Metabolic encephalopathy 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 No definite acute intracranial abnormality. Restraints: None Metabolic encephalopathy improved with decrease in calcium levels Respiratory: On BiPAP when necessary can bring home home BiPAP machine HOB up 30 degrees: Yes Stress dose steroids started Cardiovascular: PO Home meds continued: Metoprolol tartrate 150mg XL, Verapamil 240mg daily, Atorvastatin 40mg qHS Rhythm: Sinus EKG: NSR 67bpm, QTc 397 ECHO: Echo dated 07/24/2015: EF 70%, Class I diastolic disfunction, LV normal in size, mild hypertrophy Fluids/Renal: Discussed with Dr. Neri BMP q8h IV Fluids: Discontinued Diuretics: Lasix 40mg daily Net Urine: Goal 100-150mL/hour Morton: Present Labs ordered for hypercalcemia workup -vitamin A Bisphosphonates started GI/Nutrition: Feeding: Diet as tolerated Prophylaxis: On PPI Bowel movements: None yet Stool softeners: N/A Endocrine: Last 24 hour glucose: 159 Insulin protocol: Yes; Drip: No Given 3 doses of calcitonin we will discontinue any further calcitonin Continuing stress dose steroids as this may help with hypercalcemia Hematology: Hemoglobin 11.2, Hct 35.1 DVT prophylaxis: Heparin 5000 3 times a day Infectious Disease/Immunology: Tmax: Afebrile CV Lines (date): Arterial line placed 06/14/16 Antimicrobials: Continue home doxycycline Urine culture resulted greater than 100,000 CFU gram-negative bacilli. Will await sensitivities, this appears to be asymptomatic bacteriuria Cultures: Blood x2: pending Urine: See above MRSA: Negative Patient stable to be downgraded from ICU status given improvement in mental status. Discontinue forced diuresis will want the patient to remain globally negative Consults & Procedures Consultants: nephrology Procedures: left radial arterial line Data Medications: Current Inpatient Medications Medications (Trade) Dose Ordered Sig/Duyen Route Start Time Stop Time Status Last Admin Dose Admin Acetaminophen (Tylenol Tab) 650 mg Q4H PRN PO 06/14/16 14:00 07/14/16 13:59 Ondansetron HCl (Zofran Inj) 4 mg Q6H PRN IV 06/14/16 14:00 07/14/16 13:59 Insulin Aspart (novoLOG ASPART) SLIDING SCALE G... Q4 SC 06/14/16 16:00 07/14/16 15:59 06/15/16 00:23 5 UNITS Atorvastatin Calcium (Lipitor Tab) 40 mg DAILY PO 06/15/16 09:00 07/15/16 08:59 Salmeterol Xinafoate/ Fluticasone (Advair Diskus 500/50 Inh) 1 puff BID INH 06/14/16 21:00 07/14/16 20:59 06/15/16 08:44 1 PUFF Metoprolol Succinate (Toprol Xl Tab) 150 mg DAILY PO 06/15/16 09:00 07/15/16 08:59 Future Hold Prednisone (PredniSONE TAB) 15 mg QAM PO 06/15/16 09:00 07/15/16 08:59 Future Hold Pregabalin (Lyrica Cap) 150 mg TID PO 06/14/16 14:00 07/14/16 13:59 Verapamil HCl (Calan-Sr Tab) 240 mg DAILY PO 06/15/16 09:00 07/15/16 08:59 Insulin Glargine (Lantus Vial) BID SC 06/14/16 21:00 07/14/16 20:59 06/15/16 08:49 50 UNIT Metoprolol Tartrate (Lopressor Iv) 5 mg Q6 IV. 06/14/16 18:00 07/14/16 17:59 06/15/16 06:16 5 MG Hydralazine HCl 10 mg 10 mg Q6H PRN IV. 06/14/16 14:00 07/14/16 13:59 Pantoprazole Sodium 40 mg/ Syringe 10 ml @ 5 mls/min DAILY@11 IV 06/15/16 11:00 07/15/16 10:59 Doxycycline Hyclate/Dextrose (Vibramycin IV/ D5 100ml) 110 ml @ 50 mls/hr BID IV 06/14/16 21:00 06/24/16 20:59 06/15/16 08:45 50 MLS/HR Albuterol/ Ipratropium (Duoneb) 3 ml Q4 PRN INH 06/14/16 14:00 07/14/16 13:59 Heparin Sodium (Porcine) (Heparin Sq 5000 Unit/0.5ml) 5,000 unit Q8 SQ 06/14/16 22:00 07/14/16 21:59 06/15/16 06:17 5,000 UNIT Miscellaneous Information (Consult Glycemic Management Pharmacy) 1 ea UD PRN N/A 06/14/16 15:34 07/14/16 15:33 Nystatin 1 appln 1 appln TID EXT 06/14/16 21:00 07/14/16 20:59 06/15/16 08:45 1 APPLN Sodium Chloride 1,000 ml @ 200 mls/hr Q5H IV 06/14/16 14:30 07/14/16 14:29 06/15/16 06:16 200 MLS/HR Furosemide 40 mg/ Syringe 4 ml @ 4 mls/min Q6H IV 06/14/16 16:00 07/14/16 15:59 06/15/16 04:53 4 MLS/MIN Hydrocortisone Sodium Succinate/ Syringe (Solu-Cortef IV/ Syringe) 2 ml @ 4 mls/min Q8@0000,0800,1600 IV 06/14/16 16:00 07/14/16 15:59 06/15/16 08:44 4 MLS/MIN Tiotropium Malin (Spiriva Handihaler Inhaler) 1 puff DAILY INH 06/15/16 09:00 07/15/16 08:59 06/15/16 08:45 1 PUFF Glucose (Glucose 40% Gel) 15-30 GRAMS 15 GRAMS... UD PRN PO 06/14/16 17:00 07/14/16 16:59 Glucose (Glucose Chew Tab) 4-8 Tablets 4 Tabl... UD PRN PO 06/14/16 17:00 07/14/16 16:59 Dextrose (Dextrose 50% 50ML Syringe) 25-50ML OF 50% DW IV FOR... UD PRN IV 06/14/16 17:00 07/14/16 16:59 Glucagon (Glucagon Inj) 1 mg UD PRN SQ 06/14/16 17:00 07/14/16 16:59 Acetaminophen/ Hydrocodone Bitart ([place] 5/325 Tab) prn TID PRN PO 06/15/16 09:45 06/29/16 09:44 I & O: 24-Hour Column 06/15/16 08:00 Intake Total 3864 ml Output Total 4400 ml Balance -536 ml Vital Signs: Date Time Temp Pulse Resp B/P Pulse Ox O2 Delivery O2 Flow Rate FiO2 06/15/16 07:51 92 93 60 06/15/16 06:16 87 165/52 06/15/16 06:00 86 20 163/67 92 06/15/16 05:31 87 92 60 06/15/16 05:30 87 15 173/54 93 06/15/16 05:00 86 19 153/68 90 BiPAP 50 06/15/16 04:23 95 BiPAP 50 06/15/16 04:00 36.7 80 18 149/63 92 BiPAP 50 06/15/16 03:00 86 17 155/61 92 BiPAP 50 06/15/16 02:24 90 93 60 06/15/16 02:00 85 19 157/64 91 BiPAP 50 06/15/16 01:00 82 16 146/64 91 BiPAP 50 06/15/16 00:43 95 BiPAP 50 06/15/16 00:21 89 160/70 06/15/16 00:00 36.7 80 16 160/70 92 BiPAP 50 06/14/16 23:17 78 93 60 06/14/16 23:00 81 17 156/66 94 BiPAP 50 06/14/16 22:01 83 15 208/60 95 BiPAP 50 06/14/16 22:00 85 15 205/59 94 BiPAP 50 06/14/16 21:00 36.5 78 17 166/73 94 BiPAP 50 200/60 06/14/16 20:20 95 BiPAP 50 06/14/16 20:04 83 91 60 06/14/16 20:00 83 16 163/84 93 BiPAP 50 06/14/16 19:00 82 17 176/80 88 Nasal Cannula 4.0 06/14/16 18:21 83 202/76 06/14/16 18:00 79 15 202/78 92 Nasal Cannula 4.0 06/14/16 17:00 36.8 76 21 175/65 95 Nasal Cannula 4.0 230/57 06/14/16 16:52 95 Nasal Cannula 4.0 06/14/16 16:28 17 161/67 96 06/14/16 16:00 36.8 21 214/57 94 06/14/16 14:04 72 14 130/58 96 BiPAP 06/14/16 13:02 70 16 128/58 96 BiPAP 50 06/14/16 12:41 69 99 06/14/16 12:30 96 BiPAP 3.0 50 06/14/16 12:18 70 14 182/76 95 Room Air 06/14/16 12:04 06/14/16 11:31 70 20 162/79 94 Nasal Cannula 3.0 06/14/16 11:06 88 18 175/83 90 Nasal Cannula 3.0 06/14/16 10:44 97 Nasal Cannula 3.0 06/14/16 10:22 68 06/14/16 10:19 90 Nasal Cannula 3.0 Laboratory Results: Last 24 Hours Test 06/14/16 10:25 06/14/16 11:00 06/14/16 11:54 06/14/16 14:22 White Blood Count 12.45 K/uL Red Blood Count 3.58 M/uL Hemoglobin 11.2 g/dL Hematocrit 35.1 % Mean Corpuscular Volume 98.0 fL Mean Corpuscular Hemoglobin 31.3 pg Mean Corpuscular Hemoglobin Concent 31.9 g/dl Platelet Count 229 K/uL Mean Platelet Volume 10.4 fL Neutrophils (%) (Auto) 73.5 % Lymphocytes (%) (Auto) 7.8 % Monocytes (%) (Auto) 17.0 % Eosinophils (%) (Auto) 1.4 % Basophils (%) (Auto) 0.1 % Neutrophils # (Auto) 9.15 K/uL Lymphocytes # (Auto) 0.97 K/uL Monocytes # (Auto) 2.12 K/uL Eosinophils # (Auto) 0.17 K/uL Basophils # (Auto) 0.01 K/uL RDW Standard Deviation 66.3 fL RDW Coefficient of Variation 18.4 % Immature Granulocyte % (Auto) 0.2 % Immature Granulocyte # (Auto) 0.03 K/uL Prothrombin Time 10.6 SECONDS Prothromb Time International Ratio 1.0 Activated Partial Thromboplast Time 18.9 SECONDS Partial Thromboplastin Ratio 0.7 Sodium Level 135 mmol/L 136 mmol/L Potassium Level 3.7 mmol/L 3.6 mmol/L Chloride Level 88 mmol/L 90 mmol/L Carbon Dioxide Level 47 mmol/L 45 mmol/L Anion Gap 0.0 mmol/L 1.0 mmol/L Blood Urea Nitrogen 103 mg/dl 103 mg/dl Creatinine 2.50 mg/dl 2.40 mg/dl Est Creatinine Clear Calc Drug Dose 33.8 ml/min 35.3 ml/min Estimated GFR () 23.1 24.3 Estimated GFR (Non- 19.9 20.9 BUN/Creatinine Ratio 41.1 42.8 Random Glucose 159 mg/dl 159 mg/dl Calcium Level 14.5 mg/dl 13.7 mg/dl Magnesium Level 2.5 mg/dl Total Bilirubin 0.3 mg/dl Direct Bilirubin < 0.1 mg/dl Aspartate Amino Transf (AST/SGOT) 27 U/L Alanine Aminotransferase (ALT/SGPT) 38 U/L Alkaline Phosphatase 78 U/L Total Creatine Kinase 159 U/L Creatine Kinase MB 4.4 ng/ml Creatine Kinase MB Ratio 2.8 Troponin I 0.028 ng/ml Total Protein 9.2 gm/dl Albumin 3.1 gm/dl Thyroid Stimulating Hormone (TSH) 2.170 uIu/ml Random Cortisol 18.33 mcg/dl Urine Color YELLOW Urine Appearance CLEAR Urine pH 5.0 Urine Specific [place] 1.011 Urine Protein NEG Urine Glucose (UA) NEG Urine Ketones NEG Urine Occult Blood NEG Urine Nitrite NEG Urine Bilirubin NEG Urine Urobilinogen NEG Urine Leukocyte Esterase NEG Venous Blood pH 7.34 7.29 Venous Blood Partial Pressure CO2 90 mmHg 93 mmHg Venous Blood Partial Pressure O2 31 mmHg 33 mmHg Venous Blood HCO3 47 mmol/L 44 mmol/L Venous Blood Oxygen Saturation < 60.0 % < 60.0 % Venous Blood Base Excess 17.1 mmol/L 14.3 mmol/L Ionized Calcium 1.89 mmol/l Parathyroid Hormone (Intact) 10.2 pg/mL Test 06/14/16 14:55 06/14/16 15:02 06/14/16 16:32 06/14/16 20:46 Phosphorus Level 5.1 mg/dl Lipase 148 U/L 25-Hydroxy Vitamin D Total 34.0 ng/ml Thyroxine (T4) 4.5 mcg/dl Bedside Glucose 181 mg/dl 185 mg/dl Test 06/14/16 21:00 06/14/16 21:10 06/15/16 00:17 06/15/16 03:25 Sodium Level 137 mmol/L 140 mmol/L Potassium Level 3.8 mmol/L 3.6 mmol/L Chloride Level 93 mmol/L 96 mmol/L Carbon Dioxide Level 40 mmol/L 42 mmol/L Anion Gap 4.0 mmol/L 2.0 mmol/L Blood Urea Nitrogen 95 mg/dl 89 mg/dl Creatinine 2.10 mg/dl 2.20 mg/dl Est Creatinine Clear Calc Drug Dose 40.3 ml/min 38.5 ml/min Estimated GFR () 28.5 27.0 Estimated GFR (Non- 24.6 23.3 BUN/Creatinine Ratio 45.2 40.6 Random Glucose 182 mg/dl 164 mg/dl Calcium Level 13.0 mg/dl 12.7 mg/dl Ionized Calcium 1.70 mmol/l 1.66 mmol/l Magnesium Level 2.2 mg/dl 1.9 mg/dl Erythrocyte Sedimentation Rate 74 mm/hr Bedside Glucose 200 mg/dl 170 mg/dl White Blood Count 10.27 K/uL Red Blood Count 3.24 M/uL Hemoglobin 9.9 g/dL Hematocrit 32.0 % Mean Corpuscular Volume 98.8 fL Mean Corpuscular Hemoglobin 30.6 pg Mean Corpuscular Hemoglobin Concent 30.9 g/dl Platelet Count 193 K/uL Mean Platelet Volume 10.1 fL Neutrophils (%) (Auto) 84.1 % Lymphocytes (%) (Auto) 5.9 % Monocytes (%) (Auto) 9.2 % Eosinophils (%) (Auto) 0.5 % Basophils (%) (Auto) 0.0 % Neutrophils # (Auto) 8.64 K/uL Lymphocytes # (Auto) 0.61 K/uL Monocytes # (Auto) 0.94 K/uL Eosinophils # (Auto) 0.05 K/uL Basophils # (Auto) 0.00 K/uL RDW Standard Deviation 66.6 fL RDW Coefficient of Variation 18.3 % Immature Granulocyte % (Auto) 0.3 % Immature Granulocyte # (Auto) 0.03 K/uL Nucleated RBC Absolute Count (auto) 0.02 K/uL Nucleated Red Blood Cells % 0.2 % Phosphorus Level 4.0 mg/dl Test 06/15/16 06:10 06/15/16 08:22 06/15/16 08:31 06/15/16 09:03 Urine Random Creatinine 19.0 mg/dl Urine Random Total Protein < 5.0 mg/dl Urine Random Calcium < 5.0 mg/dl Urine Protein/Creatinine Ratio Blood Gas Sample Site Art Line Bedside Blood Gas pH (LAB) 7.33 Bedside Blood Gas pCO2 (LAB) 85 mmHg Bedside Blood Gas pO2 (LAB) 110 mmHg Bedside Blood Gas HCO3 (LAB) 45 meq/L Bedside Blood Gas Total CO2 > 40 mEq/l Bedside Blood Gas Base Excess (LAB) 19.0 meq/L Bedside Blood Gas O2 Saturation 98.0 % Oleg Test NA Oxygen Delivery Device BIPAP Bedside Oxygen Rate (breaths/min) 12 Bedside FiO2 60 % Blood Gas IPAP 14 Bedside Glucose 169 mg/dl Sodium Level 142 mmol/L Potassium Level 3.3 mmol/L Chloride Level 98 mmol/L Carbon Dioxide Level 43 mmol/L Anion Gap 1.0 mmol/L Blood Urea Nitrogen 83 mg/dl Creatinine 2.00 mg/dl Est Creatinine Clear Calc Drug Dose 42.4 ml/min Estimated GFR () 30.2 Estimated GFR (Non- 26.1 BUN/Creatinine Ratio 41.3 Random Glucose 164 mg/dl Calcium Level 11.6 mg/dl Ionized Calcium 1.63 mmol/l Magnesium Level 1.9 mg/dl
[2016-06-15] MEDS: HYDROCODONE/ACETAMOPHEN 5/325MG TAB PO PRN ×2 (10:39→16:39)
[2016-06-15] MEDS: VERAPAMIL HCL 240 MG TABCR PO SCH (10:40)
[2016-06-15] MEDS: ATORVASTATIN 40 MG TAB PO SCH (10:40)
[2016-06-15] MEDS: PANTOprazole INJ 40 MG in SYRINGE 0 ML IV SCH (10:41)
[2016-06-15] MEDS: PREGABALIN 150 MG CAP PO SCH ×3 (10:42→21:07)
--- NOTE | 2016-06-15 11:36 | Nephrology Consultation ---
Nephrology Consultation Date & Providers Date of Consultation: Jun 15, 2016. Primary Care Provider: Emily Isaac C.R.N.P Referring Provider: Reason for Consultation Evaluation of hypercalcemia in this patient with advanced CKD, obesity hypoventilation syndrome and right sided heart failure History of Present Illness Mrs. Gaytan is a 60-year-old white female who is seen at the request of Maegan Patel PA-c for evaluation of chronic kidney injury and hypercalcemia. Medical records in the hospital EMR were reviewed during the patient's evaluation today and case was discussed w/ Maegan Patel and the ICU team. The patient's medical history is significant for stage III CKD (baseline creatinine 1.7 - 2.0), HTN, obesity (BMI 52) and obesity hypoventilation syndrome. In October 2014 she had an echocardiogram performed which revealed LVEF 55 - 60%, mild LVH, RVSP 45 , mild RV dilation and moderate TR. As an outpatient she has been monitored closely by Pulmonology and Cardiology. Pulmonology recommended a sleep study and CPAP therapy. The patient declined. Cardiology had been adjusting the patient's diuretic regimen. Mrs. Gaytan was hospitalized 05/05/16 - 05/08/16 with CHF and lower extremity cellulitis. She required CPAP therapy, antibiotics and IV diuretics. Her weight dropped from 154 kg to 149 kg. As an outpatient she was maintained on Bumex 3 mg po BID and Spironolactone 50 mg po BID. Mrs. Gaytan presented to the Nephrology office 06/06/16 for routine follow- up. She complained of worsening lower extremity edema. Her weight was noted to be increased to 155 kg. Bumex and Spironolactone were continued. Metolazone 5 mg daily was added to her regimen. The patient reports brisk urine output in response addition of the thiazide diuretic. Her weight dropped 7 kg in one week. Unfortunately she became increasingly weak and confused. She was brought to the [facility] ED by her 06/14/16 were laboratory testing revealed stable creatinine of 2.0 but high calcium of 14.5 and profound respiratory acidosis with partial metabolic compensation. CXR was poorly penetrated but revealed mild pulmonary vascular congestion. Mrs. Gaytan was admitted to the ICU. She was given Calcitonin and Zometa. IV hydration was provided and patient was placed on IV loop diuretic therapy. Review of medical records shows that patient's serum calcium had been trending upward as an outpatient. Serum calcium was 10.8 prior to starting Metolazone therapy. Case has been discussed with Maegan Patel and the ICU team. Laboratory tests for evaluation of hypercalcemia have been ordered. Past Medical/Surgical History Medical: # CKD stage III (moderate impairment). Baseline creatinine has been ~ 1.7 - 2.0 w/ EGFR 32 cc/min. Renal ultrasound 05/11 revealed structurally normal kidneys. Patient's renal impairment is on the basis of diabetic nephropathy, hypertensive nephrosclerosis and impaired perfusion associated with right-sided heart failure. # HTN - BRYSON inhibitor therapy stopped due to relative hypotension # AODM - no retinopathy # Obesity (BMI 56) # COPD - on chronic O2 at 3 L/min ATC # Lung nodule - stable over several years of observation by pulmonology # Arthritis involving the hands - management as per Dr. Giordano # Chronic lower extremity edema due to obesity hypoventilation syndrome/ pulmonary hypertension. This has been managed with loop diuretics and Bryson bandage wraps. Echocardiogram October 2014 revealed LVEF 55 - 60%, mild LVH, RVSP 45, mild RV dilation and moderate TR Allergies Coded Allergies: Daptomycin (Verified Allergy, Mild, HIVES, 06/14/16) itching Codeine (Verified Allergy, Unknown, unknown, 06/14/16) has tolerated morphine Iodine (Verified Allergy, Unknown, 06/14/16) Shellfish (Verified Allergy, Unknown, 06/14/16) Sulfamethoxazole w/Trimethoprim (Verified Allergy, Unknown, RASH, 06/14/16) Inpatient Medications Current Inpatient Medications Medications (Trade) Dose Ordered Sig/Duyen Route Start Time Stop Time Status Last Admin Dose Admin Acetaminophen (Tylenol Tab) 650 mg Q4H PRN PO 06/14/16 14:00 07/14/16 13:59 Ondansetron HCl (Zofran Inj) 4 mg Q6H PRN IV 06/14/16 14:00 07/14/16 13:59 Insulin Aspart (novoLOG ASPART) SLIDING SCALE G... Q4 SC 06/14/16 16:00 07/14/16 15:59 06/15/16 00:23 5 UNITS Atorvastatin Calcium (Lipitor Tab) 40 mg DAILY PO 06/15/16 09:00 07/15/16 08:59 06/15/16 10:40 40 MG Salmeterol Xinafoate/ Fluticasone (Advair Diskus 500/50 Inh) 1 puff BID INH 06/14/16 21:00 07/14/16 20:59 06/15/16 08:44 1 PUFF Metoprolol Succinate (Toprol Xl Tab) 150 mg DAILY PO 06/15/16 09:00 07/15/16 08:59 Future Hold Prednisone (PredniSONE TAB) 15 mg QAM PO 06/15/16 09:00 07/15/16 08:59 Future Hold Pregabalin (Lyrica Cap) 150 mg TID PO 06/14/16 14:00 07/14/16 13:59 06/15/16 10:42 150 MG Verapamil HCl (Calan-Sr Tab) 240 mg DAILY PO 06/15/16 09:00 07/15/16 08:59 06/15/16 10:40 240 MG Insulin Glargine (Lantus Vial) BID SC 06/14/16 21:00 07/14/16 20:59 06/15/16 08:49 50 UNIT Metoprolol Tartrate (Lopressor Iv) 5 mg Q6 IV. 06/14/16 18:00 07/14/16 17:59 06/15/16 06:16 5 MG Hydralazine HCl 10 mg 10 mg Q6H PRN IV. 06/14/16 14:00 07/14/16 13:59 Pantoprazole Sodium 40 mg/ Syringe 10 ml @ 5 mls/min DAILY@11 IV 06/15/16 11:00 07/15/16 10:59 06/15/16 10:41 5 MLS/MIN Doxycycline Hyclate/Dextrose (Vibramycin IV/ D5 100ml) 110 ml @ 50 mls/hr BID IV 06/14/16 21:00 06/24/16 20:59 06/15/16 08:45 50 MLS/HR Albuterol/ Ipratropium (Duoneb) 3 ml Q4 PRN INH 06/14/16 14:00 07/14/16 13:59 Heparin Sodium (Porcine) (Heparin Sq 5000 Unit/0.5ml) 5,000 unit Q8 SQ 06/14/16 22:00 07/14/16 21:59 06/15/16 06:17 5,000 UNIT Miscellaneous Information (Consult Glycemic Management Pharmacy) 1 ea UD PRN N/A 06/14/16 15:34 07/14/16 15:33 Nystatin 1 appln 1 appln TID EXT 06/14/16 21:00 07/14/16 20:59 06/15/16 08:45 1 APPLN Hydrocortisone Sodium Succinate/ Syringe (Solu-Cortef IV/ Syringe) 2 ml @ 4 mls/min Q8@0000,0800,1600 IV 06/14/16 16:00 07/14/16 15:59 06/15/16 08:44 4 MLS/MIN Tiotropium [place] (Spiriva Handihaler Inhaler) 1 puff DAILY INH 06/15/16 09:00 07/15/16 08:59 06/15/16 08:45 1 PUFF Glucose (Glucose 40% Gel) 15-30 GRAMS 15 GRAMS... UD PRN PO 06/14/16 17:00 07/14/16 16:59 Glucose (Glucose Chew Tab) 4-8 Tablets 4 Tabl... UD PRN PO 06/14/16 17:00 07/14/16 16:59 Dextrose (Dextrose 50% 50ML Syringe) 25-50ML OF 50% DW IV FOR... UD PRN IV 06/14/16 17:00 07/14/16 16:59 Glucagon (Glucagon Inj) 1 mg UD PRN SQ 06/14/16 17:00 07/14/16 16:59 Acetaminophen/ Hydrocodone Bitart prn TID PRN PO 06/15/16 09:45 06/29/16 09:44 06/15/16 10:39 1 TAB Furosemide/Syringe (Lasix Inj/ Syringe) 4 ml @ 4 mls/min DAILY IV 06/16/16 09:00 07/16/16 08:59 Family History Cancer Diabetes mellitus Gallbladder disease Heart disease Lung disease Negative for CKD/ESRD Social History Smoking Status: Former Smoker Alcohol Use: none Drug Use: none Marital Status: Housing Status: lives with family Occupation: unemployed . Lives with . Remote h/o tobacco use. Review of Systems Constitutional: No fever Respiratory: + shortness of breath, No cough Cardiovascular: No chest pain Abdomen: No nausea, No pain, No vomiting Genitourinary - Female: No dysuria A complete review of systems was performed. Pertinent positives are noted above. All other systems are negative. Physical Exam Date Time Temp Pulse Resp B/P Pulse Ox O2 Delivery O2 Flow Rate FiO2 06/15/16 07:51 92 93 60 06/15/16 06:16 87 165/52 06/15/16 06:00 86 20 163/67 92 06/15/16 05:31 87 92 60 06/15/16 05:30 87 15 173/54 93 06/15/16 05:00 86 19 153/68 90 BiPAP 50 06/15/16 04:23 95 BiPAP 50 06/15/16 04:00 36.7 80 18 149/63 92 BiPAP 50 06/15/16 03:00 86 17 155/61 92 BiPAP 50 06/15/16 02:24 90 93 60 06/15/16 02:00 85 19 157/64 91 BiPAP 50 06/15/16 01:00 82 16 146/64 91 BiPAP 50 06/15/16 00:43 95 BiPAP 50 06/15/16 00:21 89 160/70 06/15/16 00:00 36.7 80 16 160/70 92 BiPAP 50 06/14/16 23:17 78 93 60 06/14/16 23:00 81 17 156/66 94 BiPAP 50 06/14/16 22:01 83 15 208/60 95 BiPAP 50 06/14/16 22:00 85 15 205/59 94 BiPAP 50 06/14/16 21:00 36.5 78 17 166/73 94 BiPAP 50 200/60 06/14/16 20:20 95 BiPAP 50 06/14/16 20:04 83 91 60 06/14/16 20:00 83 16 163/84 93 BiPAP 50 06/14/16 19:00 82 17 176/80 88 Nasal Cannula 4.0 06/14/16 18:21 83 202/76 06/14/16 18:00 79 15 202/78 92 Nasal Cannula 4.0 06/14/16 17:00 36.8 76 21 175/65 95 Nasal Cannula 4.0 230/57 06/14/16 16:52 95 Nasal Cannula 4.0 06/14/16 16:28 17 161/67 96 06/14/16 16:00 36.8 21 214/57 94 06/14/16 14:04 72 14 130/58 96 BiPAP 4/15/17 13:02 70 16 128/58 96 BiPAP 50 06/14/16 12:41 69 99 06/14/16 12:30 96 BiPAP 3.0 50 06/14/16 12:18 70 14 182/76 95 Room Air 06/14/16 12:04 06/14/16 11:31 70 20 162/79 94 Nasal Cannula 3.0 06/14/16 11:06 88 18 175/83 90 Nasal Cannula 3.0 General Appearance: + mild distress (on CPAP therapy), + pertinent finding ( cushingoid appearing) Head: atraumatic Eyes: PERRL Neck: + pertinent finding (short, thick. Unable to assess JVD) Respiratory/Chest: lungs clear (anteriorly. Patient could not sit forward for evaluation of posterior lung rain) Cardiovascular: regular rate, rhythm, no murmur Abdomen/GI: + distended (hypoactive bowel sounds. Non tender. No guarding) Extremities/Musculoskelatal: + pertinent finding (1+ pretibial edema with hemosiderin staining) Neurologic/Psych: alert Laboratory Results Last 24 Hours Test 06/14/16 11:00 06/14/16 11:54 06/14/16 14:22 06/14/16 14:55 Urine Color YELLOW Urine Appearance CLEAR Urine pH 5.0 Urine Specific [place] 1.011 Urine Protein NEG Urine Glucose (UA) NEG Urine Ketones NEG Urine Occult Blood NEG Urine Nitrite NEG Urine Bilirubin NEG Urine Urobilinogen NEG Urine Leukocyte Esterase NEG Venous Blood pH 7.34 7.29 Venous Blood Partial Pressure CO2 90 mmHg 93 mmHg Venous Blood Partial Pressure O2 31 mmHg 33 mmHg Venous Blood HCO3 47 mmol/L 44 mmol/L Venous Blood Oxygen Saturation < 60.0 % < 60.0 % Venous Blood Base Excess 17.1 mmol/L 14.3 mmol/L Sodium Level 136 mmol/L Potassium Level 3.6 mmol/L Chloride Level 90 mmol/L Carbon Dioxide Level 45 mmol/L Anion Gap 1.0 mmol/L Blood Urea Nitrogen 103 mg/dl Creatinine 2.40 mg/dl Est Creatinine Clear Calc Drug Dose 35.3 ml/min Estimated GFR () 24.3 Estimated GFR (Non- 20.9 BUN/Creatinine Ratio 42.8 Random Glucose 159 mg/dl Calcium Level 13.7 mg/dl Ionized Calcium 1.89 mmol/l Parathyroid Hormone (Intact) 10.2 pg/mL Phosphorus Level 5.1 mg/dl Lipase 148 U/L 25-Hydroxy Vitamin D Total 34.0 ng/ml Thyroxine (T4) 4.5 mcg/dl Test 06/14/16 15:02 06/14/16 16:32 06/14/16 20:46 06/14/16 21:00 Bedside Glucose 181 mg/dl 185 mg/dl Sodium Level 137 mmol/L Potassium Level 3.8 mmol/L Chloride Level 93 mmol/L Carbon Dioxide Level 40 mmol/L Anion Gap 4.0 mmol/L Blood Urea Nitrogen 95 mg/dl Creatinine 2.10 mg/dl Est Creatinine Clear Calc Drug Dose 40.3 ml/min Estimated GFR () 28.5 Estimated GFR (Non- 24.6 BUN/Creatinine Ratio 45.2 Random Glucose 182 mg/dl Calcium Level 13.0 mg/dl Ionized Calcium 1.70 mmol/l Magnesium Level 2.2 mg/dl Test 06/14/16 21:10 06/15/16 00:17 06/15/16 03:25 06/15/16 06:10 Erythrocyte Sedimentation Rate 74 mm/hr Bedside Glucose 200 mg/dl 170 mg/dl White Blood Count 10.27 K/uL Red Blood Count 3.24 M/uL Hemoglobin 9.9 g/dL Hematocrit 32.0 % Mean Corpuscular Volume 98.8 fL Mean Corpuscular Hemoglobin 30.6 pg Mean Corpuscular Hemoglobin Concent 30.9 g/dl Platelet Count 193 K/uL Mean Platelet Volume 10.1 fL Neutrophils (%) (Auto) 84.1 % Lymphocytes (%) (Auto) 5.9 % Monocytes (%) (Auto) 9.2 % Eosinophils (%) (Auto) 0.5 % Basophils (%) (Auto) 0.0 % Neutrophils # (Auto) 8.64 K/uL Lymphocytes # (Auto) 0.61 K/uL Monocytes # (Auto) 0.94 K/uL Eosinophils # (Auto) 0.05 K/uL Basophils # (Auto) 0.00 K/uL RDW Standard Deviation 66.6 fL RDW Coefficient of Variation 18.3 % Immature Granulocyte % (Auto) 0.3 % Immature Granulocyte # (Auto) 0.03 K/uL Nucleated RBC Absolute Count (auto) 0.02 K/uL Nucleated Red Blood Cells % 0.2 % Sodium Level 140 mmol/L Potassium Level 3.6 mmol/L Chloride Level 96 mmol/L Carbon Dioxide Level 42 mmol/L Anion Gap 2.0 mmol/L Blood Urea Nitrogen 89 mg/dl Creatinine 2.20 mg/dl Est Creatinine Clear Calc Drug Dose 38.5 ml/min Estimated GFR () 27.0 Estimated GFR (Non- 23.3 BUN/Creatinine Ratio 40.6 Random Glucose 164 mg/dl Calcium Level 12.7 mg/dl Ionized Calcium 1.66 mmol/l Phosphorus Level 4.0 mg/dl Magnesium Level 1.9 mg/dl Urine Random Creatinine 19.0 mg/dl Urine Random Total Protein < 5.0 mg/dl Urine Random Calcium < 5.0 mg/dl Urine Protein/Creatinine Ratio Test 06/15/16 08:22 06/15/16 08:31 06/15/16 09:03 Blood Gas Sample Site Art Line Bedside Blood Gas pH (LAB) 7.33 Bedside Blood Gas pCO2 (LAB) 85 mmHg Bedside Blood Gas pO2 (LAB) 110 mmHg Bedside Blood Gas HCO3 (LAB) 45 meq/L Bedside Blood Gas Total CO2 > 40 mEq/l Bedside Blood Gas Base Excess (LAB) 19.0 meq/L Bedside Blood Gas O2 Saturation 98.0 % Oleg Test NA Oxygen Delivery Device BIPAP Bedside Oxygen Rate (breaths/min) 12 Bedside FiO2 60 % Blood Gas IPAP 14 Bedside Glucose 169 mg/dl Sodium Level 142 mmol/L Potassium Level 3.3 mmol/L Chloride Level 98 mmol/L Carbon Dioxide Level 43 mmol/L Anion Gap 1.0 mmol/L Blood Urea Nitrogen 83 mg/dl Creatinine 2.00 mg/dl Est Creatinine Clear Calc Drug Dose 42.4 ml/min Estimated GFR () 30.2 Estimated GFR (Non- 26.1 BUN/Creatinine Ratio 41.3 Random Glucose 164 mg/dl Calcium Level 11.6 mg/dl Ionized Calcium 1.63 mmol/l Magnesium Level 1.9 mg/dl Impression (1) Obesity hypoventilation syndrome (2) Respiratory failure with hypercapnia (3) CO2 narcosis (4) Hypercalcemia (5) Pulmonary nodules (6) Chronic kidney disease (CKD) stage G3b/A1, moderately decreased glomerular filtration rate (GFR) between 30-44 mL/min/1.73 square meter and albuminuria creatinine ratio less than 30 mg/g Patient admitted to the hospital for evaluation respiratory failure w/ CO2 narcosis and hypercalcemia. Her medical history is significant for stage III CKD (baseline creatinine 1.7 - 2.0), HTN, obesity (BMI 56) and obesity hypoventilation syndrome. In October 2014 she had an echocardiogram performed which revealed LVEF 55 - 60%, mild LVH, RVSP 45, mild RV dilation and moderate TR. She was hospitalized 05/16 w/ CHF and cellulitis. As an outpatient she has developed progressive volume overload requiring the addition of Metolazone to her regular diuretic regimen. She responded well and lost 7 kg fluid weight in one week. She unfortunately developed progressive weakness and is now admitted with respiratory failure, severe hypercarbia and hypercalcemia. Preliminary evaluation of hypercalcemia reveals normal thyroid function, low PTH, normal vitamin D and alkaline phosphatase level. Serum BRYSON level, serum free light chains, PTHrp and Vitamin A levels are pending. Recommendations -- Await balance of hypercalcemia evaluation -- Agree with stopping Metolazone -- Stop IVF and continue IV loop diuretic -- Calcitonin and Zometa have already been given. Monitor serum calcium levels -- Monitor serial PRP 80 minutes critical care time provided. This was necessary in order to evaluate patient in the ICU, review medical records and discuss her plan of care with her , the primary service and ICU team. Over 50% of time provided was spent on coordination of care.
--- NOTE | 2016-06-15 13:56 | Progress Note ---
Subjective Date of Service: Jun 15, 2016. Subjective Pt evaluation today including: conversation w/ patient, conversation w/ family , physical exam, chart review, lab review, review of studies, review of inpatient medication list Still required BiPAP, she is nothing by mouth because of need to be BiPAP dependent No appetite, open eyes and TALK TO ME Problem List Medical Problems: (1) Anasarca Status: Acute (2) Bilateral cellulitis of lower leg Status: Acute (3) Bilateral lower leg cellulitis Status: Acute (4) Change in mental status Status: Acute (5) Chronic renal failure Status: Acute (6) CO2 retention Status: Acute (7) Dyspnea on exertion Status: Acute (8) Fall Status: Acute (9) Fever Status: Acute (10) Fever Status: Acute (11) Hypercarbia Status: Acute (12) Hypoxemia Status: Acute (13) Hypoxia Status: Acute (14) Respiratory failure Status: Acute (15) Weakness Status: Acute (16) Wrist pain Status: Acute Review of Systems Constitutional: + fatigue, + weakness, No chills, No fever, No problem reported , No sweats, No weight loss Eyes: No diplopia, No discharge, No eye pain, No redness, No worsening of vision ENT: + problem reported (dry mouth), No dental problems, No hearing loss, No nasal symptoms, No sore throat, No tinnitus, No trouble swallowing, No unusual epistaxis Respiratory: + cough, + shortness of breath, + wheezing, No dyspnea at rest, No dyspnea on exertion, No hemoptysis, No sputum Cardiac: No PND, No chest pain, No claudication, No edema, No orthopnea, No palpitations Abdomen: No constipation, No diarrhea, No nausea, No pain, No vomiting Musculoskeletal: No calf pain, No joint pain, No muscle pain, No swelling Female : No abnormal vaginal bleeding, No dysuria, No hematuria, No incontinence, No urinary frequency, No vaginal discharge Neurologic: No balance problems, No memory loss, No numbness/tingling, No paralysis, No vertigo, No weakness Psychiatric: No anhedonism, No anxiety, No depression symptoms, No insomnia, No substance abuse Heme: No abnormal bleeding/bruising, No clotting problems, No night sweats, No swollen lymph nodes Endo: No excessive thirst, No excessive urination, No fatigue Skin: No bleeding, No color change, No itch, No new/changing skin lesions, No rash Objective Vital Signs Date Time Temp Pulse Resp B/P Pulse Ox O2 Delivery O2 Flow Rate FiO2 06/15/16 12:00 36.6 80 22 157/79 95 06/15/16 12:00 93 BiPAP 50 06/15/16 10:00 82 18 151/72 95 06/15/16 08:00 36.9 87 20 150/66 94 BiPAP 50 06/15/16 08:00 95 BiPAP 50 06/15/16 07:51 92 93 60 06/15/16 06:16 87 165/52 06/15/16 06:00 86 20 163/67 92 06/15/16 05:31 87 92 60 06/15/16 05:30 87 15 173/54 93 06/15/16 05:00 86 19 153/68 90 BiPAP 50 06/15/16 04:23 95 BiPAP 50 06/15/16 04:00 36.7 80 18 149/63 92 BiPAP 50 06/15/16 03:00 86 17 155/61 92 BiPAP 50 06/15/16 02:24 90 93 60 06/15/16 02:00 85 19 157/64 91 BiPAP 50 06/15/16 01:00 82 16 146/64 91 BiPAP 50 06/15/16 00:43 95 BiPAP 50 06/15/16 00:21 89 160/70 06/15/16 00:00 36.7 80 16 160/70 92 BiPAP 50 06/14/16 23:17 78 93 60 06/14/16 23:00 81 17 156/66 94 BiPAP 50 06/14/16 22:01 83 15 208/60 95 BiPAP 50 06/14/16 22:00 85 15 205/59 94 BiPAP 50 06/14/16 21:00 36.5 78 17 166/73 94 BiPAP 50 200/60 06/14/16 20:20 95 BiPAP 50 06/14/16 20:04 83 91 60 06/14/16 20:00 83 16 163/84 93 BiPAP 50 06/14/16 19:00 82 17 176/80 88 Nasal Cannula 4.0 06/14/16 18:21 83 202/76 06/14/16 18:00 79 15 202/78 92 Nasal Cannula 4.0 06/14/16 17:00 36.8 76 21 175/65 95 Nasal Cannula 4.0 230/57 06/14/16 16:52 95 Nasal Cannula 4.0 06/14/16 16:28 17 161/67 96 06/14/16 16:00 36.8 21 214/57 94 06/14/16 14:04 72 14 130/58 96 BiPAP Physical Exam General Appearance: WD/WN, no apparent distress, + obese (morbid obesity), + pertinent finding (on CPAP machine) Eyes: normal inspection, PERRL, EOMI, sclerae normal ENT: normal ENT inspection, hearing grossly normal, pharynx normal Neck: supple, no adenopathy, thyroid normal, no JVD, no carotid bruits, trachea midline Respiratory/Chest: chest non-tender, lungs clear, normal breath sounds, no respiratory distress, no accessory muscle use, + decreased breath sounds Cardiovascular: regular rate, rhythm, no edema, no gallop, no JVD, no murmur Abdomen: normal bowel sounds, non tender, soft, no organomegaly, no pulsatile mass Extremities: normal range of motion, non-tender, normal inspection, no pedal edema, no calf tenderness, normal capillary refill, pelvis stable 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: 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, no motor/sensory deficits, alert, normal mood/affect, oriented x 3 Skin: normal color, warm/dry, + pertinent finding (abimael lower extremities skin erythema mild hot and skin second and dry) Lymphatic: no adenopathy Laboratory Results Last 24 Hours Test 06/14/16 14:22 06/14/16 14:55 06/14/16 15:02 06/14/16 16:32 Venous Blood pH 7.29 Venous Blood Partial Pressure CO2 93 mmHg Venous Blood Partial Pressure O2 33 mmHg Venous Blood HCO3 44 mmol/L Venous Blood Oxygen Saturation < 60.0 % Venous Blood Base Excess 14.3 mmol/L Sodium Level 136 mmol/L Potassium Level 3.6 mmol/L Chloride Level 90 mmol/L Carbon Dioxide Level 45 mmol/L Anion Gap 1.0 mmol/L Blood Urea Nitrogen 103 mg/dl Creatinine 2.40 mg/dl Est Creatinine Clear Calc Drug Dose 35.3 ml/min Estimated GFR () 24.3 Estimated GFR (Non- 20.9 BUN/Creatinine Ratio 42.8 Random Glucose 159 mg/dl Calcium Level 13.7 mg/dl Ionized Calcium 1.89 mmol/l Parathyroid Hormone (Intact) 10.2 pg/mL Phosphorus Level 5.1 mg/dl Lipase 148 U/L 25-Hydroxy Vitamin D Total 34.0 ng/ml Thyroxine (T4) 4.5 mcg/dl Bedside Glucose 181 mg/dl Test 06/14/16 20:46 06/14/16 21:00 06/14/16 21:10 06/15/16 00:17 Bedside Glucose 185 mg/dl 200 mg/dl Sodium Level 137 mmol/L Potassium Level 3.8 mmol/L Chloride Level 93 mmol/L Carbon Dioxide Level 40 mmol/L Anion Gap 4.0 mmol/L Blood Urea Nitrogen 95 mg/dl Creatinine 2.10 mg/dl Est Creatinine Clear Calc Drug Dose 40.3 ml/min Estimated GFR () 28.5 Estimated GFR (Non- 24.6 BUN/Creatinine Ratio 45.2 Random Glucose 182 mg/dl Calcium Level 13.0 mg/dl Ionized Calcium 1.70 mmol/l Magnesium Level 2.2 mg/dl Erythrocyte Sedimentation Rate 74 mm/hr Test 06/15/16 03:25 06/15/16 06:10 06/15/16 08:22 06/15/16 08:31 White Blood Count 10.27 K/uL Red Blood Count 3.24 M/uL Hemoglobin 9.9 g/dL Hematocrit 32.0 % Mean Corpuscular Volume 98.8 fL Mean Corpuscular Hemoglobin 30.6 pg Mean Corpuscular Hemoglobin Concent 30.9 g/dl Platelet Count 193 K/uL Mean Platelet Volume 10.1 fL Neutrophils (%) (Auto) 84.1 % Lymphocytes (%) (Auto) 5.9 % Monocytes (%) (Auto) 9.2 % Eosinophils (%) (Auto) 0.5 % Basophils (%) (Auto) 0.0 % Neutrophils # (Auto) 8.64 K/uL Lymphocytes # (Auto) 0.61 K/uL Monocytes # (Auto) 0.94 K/uL Eosinophils # (Auto) 0.05 K/uL Basophils # (Auto) 0.00 K/uL RDW Standard Deviation 66.6 fL RDW Coefficient of Variation 18.3 % Immature Granulocyte % (Auto) 0.3 % Immature Granulocyte # (Auto) 0.03 K/uL Nucleated RBC Absolute Count (auto) 0.02 K/uL Nucleated Red Blood Cells % 0.2 % Sodium Level 140 mmol/L Potassium Level 3.6 mmol/L Chloride Level 96 mmol/L Carbon Dioxide Level 42 mmol/L Anion Gap 2.0 mmol/L Blood Urea Nitrogen 89 mg/dl Creatinine 2.20 mg/dl Est Creatinine Clear Calc Drug Dose 38.5 ml/min Estimated GFR () 27.0 Estimated GFR (Non- 23.3 BUN/Creatinine Ratio 40.6 Bedside Glucose 170 mg/dl 169 mg/dl Random Glucose 164 mg/dl Calcium Level 12.7 mg/dl Ionized Calcium 1.66 mmol/l Phosphorus Level 4.0 mg/dl Magnesium Level 1.9 mg/dl Urine Random Creatinine 19.0 mg/dl Urine Random Total Protein < 5.0 mg/dl Urine Random Calcium < 5.0 mg/dl Urine Protein/Creatinine Ratio Blood Gas Sample Site Art Line Bedside Blood Gas pH (LAB) 7.33 Bedside Blood Gas pCO2 (LAB) 85 mmHg Bedside Blood Gas pO2 (LAB) 110 mmHg Bedside Blood Gas HCO3 (LAB) 45 meq/L Bedside Blood Gas Total CO2 > 40 mEq/l Bedside Blood Gas Base Excess (LAB) 19.0 meq/L Bedside Blood Gas O2 Saturation 98.0 % Oleg Test NA Oxygen Delivery Device BIPAP Bedside Oxygen Rate (breaths/min) 12 Bedside FiO2 60 % Blood Gas IPAP 14 Test 06/15/16 09:03 06/15/16 13:32 Sodium Level 142 mmol/L Potassium Level 3.3 mmol/L Chloride Level 98 mmol/L Carbon Dioxide Level 43 mmol/L Anion Gap 1.0 mmol/L Blood Urea Nitrogen 83 mg/dl Creatinine 2.00 mg/dl Est Creatinine Clear Calc Drug Dose 42.4 ml/min Estimated GFR () 30.2 Estimated GFR (Non- 26.1 BUN/Creatinine Ratio 41.3 Random Glucose 164 mg/dl Calcium Level 11.6 mg/dl Ionized Calcium 1.63 mmol/l Magnesium Level 1.9 mg/dl Bedside Glucose 204 mg/dl Assessment and Plan 60-year-old female with a history of morbid obesity, COPD, chronic diastolic heart failure presents emergency department with altered mental status and frequent falls. Found to be in hypercapnic respiratory failure with an elevated calcium Metabolic encephalopathy likely multifactorial, carbon dioxide retention, acute on chronic kidney failure, etc. 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 appreciated Hypercalcemia, etiology unknown, hyper parathyroidism, paraneoplastic syndrome, Repeat PRP , Check ionized calcium, discontinue IV fluid loop diuretic continue, Renal input appreciated, continue Calcitonin and Zometa, continue Monitor serum calcium levels Gram-negative UTI, and bilateral lower extremity mild cellulitis on doxycycline at home Follow-up culture and sensitivity COPD, Continue Spiriva and Advair, replace prednisone 15 mg daily to stress dose hydrocortisone 100 mg q 8 hr diabetes mellitus, Pharmacy glycemic consult, insulin sliding scale, Acute on chronic renal failure-Baseline creatinine around 2.0-elevated today at 2.5 likely secondary to overdiuresis, IV fluids as noted above, Nephrology consult DVT prophylaxis -Heparin 5000 u subQ tid -TEDS, SCDs CODE STATUS Discussed with patient's , okay CPR shock but DO NOT INTUBATE Prognosis is very guarded Continued [facility] stay due to: multiple IV medications needed Discharge planning: home
[2016-06-15 16:01] LABS: CALCIUM 11.7 mg/dl (8.5-10.1); CREATININE 1.9 mg/dl (0.60-1.20); MAGNESIUM 1.6 mg/dl (1.8-2.4); POTASSIUM 3.1 mmol/L (3.5-5.1)
[2016-06-15] MEDS: HYDROCORTISONE IV 50 MG in SYRINGE 0 ML IV SCH ×2 (16:38→21:51)
[2016-06-15] MEDS ORDERED: NURSING VERBAL MED ORDER ONE (19:30)
[2016-06-15] MEDS ORDERED: POTASSIUM CHLORIDE 20 MEQ/15 ML UDC PO ONE (19:45)
[2016-06-15] MEDS ORDERED: HYDROmorphone INJ 1 MG/ML SYR IV STA (19:48)
[2016-06-15 21:39] LABS: BUN/CREATININE RATIO 41.1 (10-20); CREATININE 1.9 mg/dl (0.60-1.20); MAGNESIUM 1.5 mg/dl (1.8-2.4); POTASSIUM 3.6 mmol/L (3.5-5.1)
[2016-06-15 22:21] LABS: CALCIUM 11.8 mg/dl (8.5-10.1)
[2016-06-16] VITALS (7 sets, daily range): BP systolic 127–157; BP diastolic 72–75; PULSE 70–96; TEMP 36.3–37.4; O2SAT 88–92
[2016-06-16] MEDS: INSULIN ASPART 100 UNITS/ML 3 ML PEN SC SCH ×6 (00:31→19:59)
[2016-06-16] MEDS: METOPROLOL TARTRATE 1 MG/ML VIAL IV. SCH ×4 (00:32→18:08)
[2016-06-16 03:36] LABS: COMPLETE YES; EOS % 0.4 %; HEMATOCRIT 31.6 % (37-47); IG% 0.4 %; LYMPH % 10.2 %; MEAN CELL VOLUME 99.4 fL (80-100); MEAN CORPUSCULAR HEMOGLOBIN 31.1 pg (25-34); MEAN CORPUSCULAR HGB CONC 31.3 g/dl (32-36); MEAN PLATELET VOLUME 10.1 fL (7.4-10.4); MONO % 4.6 %; NEUT % 84.4 %; PLATELET COUNT 167 K/uL (130-400); RED BLOOD COUNT 3.18 M/uL (4.2-5.4); WHITE BLOOD COUNT 7.84 K/uL (4.8-10.8)
[2016-06-16 04:12] LABS: BUN/CREATININE RATIO 39.5 (10-20); CALCIUM 11.1 mg/dl (8.5-10.1); CREATININE 1.9 mg/dl (0.60-1.20); MAGNESIUM 1.6 mg/dl (1.8-2.4); PHOSPHORUS 2.7 mg/dl (2.5-4.9); POTASSIUM 3.6 mmol/L (3.5-5.1)
[2016-06-16] MEDS: HYDROCORTISONE IV 50 MG in SYRINGE 0 ML IV SCH ×3 (05:52→21:07)
[2016-06-16] MEDS: HEPARIN SOD 5000 UNIT/0.5 ML CARP SQ SCH ×3 (05:54→21:07)
[2016-06-16] MEDS: VERAPAMIL HCL 240 MG TABCR PO SCH (08:39)
[2016-06-16] MEDS: HYDROCODONE/ACETAMOPHEN 5/325MG TAB PO PRN ×2 (08:39→17:16)
[2016-06-16] MEDS: PREGABALIN 150 MG CAP PO SCH ×3 (08:39→20:02)
[2016-06-16] MEDS: TIOTROPIUM BROMIDE 5 PUFF/90 MCG INH INH SCH (08:40)
[2016-06-16] MEDS: FUROSEMIDE INJ 40 MG in SYRINGE 0 ML IV SCH (08:40)
[2016-06-16] MEDS: ATORVASTATIN 40 MG TAB PO SCH (08:41)
[2016-06-16] MEDS: FLUTICASONE/SALMETEROL (ADVAIR) 500/50 INH 14 PUFF INH SCH ×2 (08:41→19:56)
[2016-06-16] MEDS: NYSTATIN OINT 15 GM TUBE EXT SCH ×3 (08:41→19:55)
[2016-06-16] MEDS: DOXYCYCLINE IV 100 MG in DEXTROSE 5% 100ML 100 ML IV SCH ×2 (08:57→20:03)
[2016-06-16] MEDS: INSULIN GLARGINE SC SCH ×2 (09:22→19:58)
[2016-06-16 09:35] LABS: BUN/CREATININE RATIO 39.2 (10-20); CALCIUM 11.3 mg/dl (8.5-10.1); CREATININE 1.9 mg/dl (0.60-1.20); MAGNESIUM 1.7 mg/dl (1.8-2.4); POTASSIUM 3.7 mmol/L (3.5-5.1)
--- NOTE | 2016-06-16 10:05 | Nephrology Progress Note ---
Nephrology Progress Note Date of Service Jun 16, 2016. Chief Complaint Evaluation of hypercalcemia in this patient with advanced CKD, obesity hypoventilation syndrome and right sided heart failure Subjective Mrs. Gaytan was seen and examined in the PCU this morning. She complains of weakness and frequently drifts off to sleep during our conversation. She denies fever or angina. She is on a venturi mask 90% at 15 L / min. She reports brisk urine output but still has lower extremity swelling. Review of Systems Constitutional: No fever Cardiovascular: No chest pain Respiratory: + dyspnea at rest Abdomen: No nausea, No pain, No vomiting Extremities: + leg edema A complete review of systems was performed. Pertinent positives are noted above. All other systems are negative. Vital Signs Last 8 Hrs Date Time Temp Pulse Resp B/P Pulse Ox O2 Delivery O2 Flow Rate FiO2 06/16/16 07:33 36.5 96 25 135/73 90 Venturi Mask 15.0 50 06/16/16 05:53 90 06/16/16 04:59 Venturi Mask 50 06/16/16 03:12 37.4 87 20 143/72 92 BiPAP I & O 24-Hour Column 06/16/16 08:00 Intake Total 1852 ml Output Total 3150 ml Balance -1298 ml Last Recorded Weight Weight (Kilograms): 148.300 Physical Exam General Appearance: + mild distress (requires high flow O2), + obese Head: atraumatic, + pertinent finding (lara facie) Eyes: PERRL, EOMI Neck: + pertinent finding (short, thick. Unable to assess for JVD or lymphadenopathy) Respiratory/Chest: + pertinent finding (poor inspiratory effort. Rales at bases bilaterally) Cardiovascular: regular rate, rhythm Abdomen/GI: + distended (hypoactive bowel sounds) Extremities/Musculoskelatal: + swelling (2+ pretibial pitting edema w/ hemosiderin staining) Neurologic/Psych: + pertinent finding (awakens to voice. Answers appropriately. Frequently drifts off to sleep) Family History Cancer Diabetes mellitus Gallbladder disease Heart disease Lung disease Negative for CKD/ESRD Social History Smoking Status: Former smoker Alcohol Use: none Drug Use: none Marital Status: Housing Status: lives with family Occupation: unemployed . Lives with . Remote h/o tobacco use. Laboratory Results Past 24 Hours 06/16/16 03:19 Red Blood Count 3.18, Mean Corpuscular Volume 99.4, Mean Corpuscular Hemoglobin 31.1, Mean Corpuscular Hemoglobin Concent 31.3, Mean Platelet Volume 10.1, Neutrophils (%) (Auto) 84.4, Lymphocytes (%) (Auto) 10.2, Monocytes (%) (Auto) 4.6, Eosinophils (%) (Auto) 0.4, Basophils (%) (Auto) 0.0, Neutrophils # (Auto) 6.62, Lymphocytes # (Auto) 0.80, Monocytes # (Auto) 0.36, Eosinophils # (Auto) 0.03, Basophils # (Auto) 0.00 06/15/16 15:17 06/15/16 21:11 06/16/16 03:19 06/16/16 09:03 Test 06/15/16 13:32 06/15/16 15:17 06/15/16 16:27 06/15/16 20:27 Bedside Glucose 204 mg/dl (70-90) 178 mg/dl (70-90) 167 mg/dl (70-90) Anion Gap 4.0 mmol/L (3-11) Est Creatinine Clear Calc Drug Dose 44.7 ml/min Estimated GFR () 32.2 Estimated GFR (Non- 27.8 BUN/Creatinine Ratio 42.0 (10-20) Calcium Level 11.7 mg/dl (8.5-10.1) Ionized Calcium 1.54 mmol/l (1.12-1.32) Magnesium Level 1.6 mg/dl (1.8-2.4) Test 06/15/16 21:11 06/15/16 22:00 06/16/16 00:08 06/16/16 03:19 Anion Gap 3.0 mmol/L (3-11) 1.0 mmol/L (3-11) Est Creatinine Clear Calc Drug Dose 44.7 ml/min 44.7 ml/min Estimated GFR () 32.2 32.2 Estimated GFR (Non- 27.8 27.8 BUN/Creatinine Ratio 41.1 (10-20) 39.5 (10-20) Calcium Level 11.8 mg/dl (8.5-10.1) 11.1 mg/dl (8.5-10.1) Ionized Calcium 1.49 mmol/l (1.12-1.32) 1.48 mmol/l (1.12-1.32) Magnesium Level 1.5 mg/dl (1.8-2.4) 1.6 mg/dl (1.8-2.4) Bedside Glucose 193 mg/dl (70-90) White Blood Count 7.84 K/uL (4.8-10.8) Red Blood Count 3.18 M/uL (4.2-5.4) Hemoglobin 9.9 g/dL (12.0-16.0) Hematocrit 31.6 % (37-47) Mean Corpuscular Volume 99.4 fL (80-100) Mean Corpuscular Hemoglobin 31.1 pg (25-34) Mean Corpuscular Hemoglobin Concent 31.3 g/dl (32-36) Platelet Count 167 K/uL (130-400) Mean Platelet Volume 10.1 fL (7.4-10.4) Neutrophils (%) (Auto) 84.4 % Lymphocytes (%) (Auto) 10.2 % Monocytes (%) (Auto) 4.6 % Eosinophils (%) (Auto) 0.4 % Basophils (%) (Auto) 0.0 % Neutrophils # (Auto) 6.62 K/uL (1.4-6.5) Lymphocytes # (Auto) 0.80 K/uL (1.2-3.4) Monocytes # (Auto) 0.36 K/uL (0.11-0.59) Eosinophils # (Auto) 0.03 K/uL (0-0.5) Basophils # (Auto) 0.00 K/uL (0-0.2) RDW Standard Deviation 67.9 fL (36.4-46.3) RDW Coefficient of Variation 18.6 % (11.5-14.5) Immature Granulocyte % (Auto) 0.4 % Immature Granulocyte # (Auto) 0.03 K/uL (0.00-0.02) Nucleated RBC Absolute Count (auto) 0.02 K/uL (0-0) Nucleated Red Blood Cells % 0.3 % Phosphorus Level 2.7 mg/dl (2.5-4.9) Test 06/16/16 04:12 06/16/16 08:51 06/16/16 09:03 Bedside Glucose 202 mg/dl (70-90) 192 mg/dl (70-90) Anion Gap 2.0 mmol/L (3-11) Est Creatinine Clear Calc Drug Dose 44.7 ml/min Estimated GFR () 32.2 Estimated GFR (Non- 27.8 BUN/Creatinine Ratio 39.2 (10-20) Calcium Level 11.3 mg/dl (8.5-10.1) Ionized Calcium 1.48 mmol/l (1.12-1.32) Magnesium Level 1.7 mg/dl (1.8-2.4) Allergies Coded Allergies: Daptomycin (Verified Allergy, Mild, HIVES, 06/14/16) itching Codeine (Verified Allergy, Unknown, unknown, 06/14/16) has tolerated morphine Iodine (Verified Allergy, Unknown, 06/14/16) Shellfish (Verified Allergy, Unknown, 06/14/16) Sulfamethoxazole w/Trimethoprim (Verified Allergy, Unknown, RASH, 06/14/16) Medications Current Inpatient Medications Medications (Trade) Dose Ordered Sig/Duyen Route Start Time Stop Time Status Last Admin Dose Admin Acetaminophen (Tylenol Tab) 650 mg Q4H PRN PO 06/14/16 14:00 07/14/16 13:59 06/15/16 13:46 650 MG Ondansetron HCl (Zofran Inj) 4 mg Q6H PRN IV 06/14/16 14:00 07/14/16 13:59 Insulin Aspart (novoLOG ASPART) SLIDING SCALE G... Q4 SC 06/14/16 16:00 07/14/16 15:59 06/16/16 08:57 3 UNITS Atorvastatin Calcium (Lipitor Tab) 40 mg DAILY PO 06/15/16 09:00 07/15/16 08:59 06/16/16 08:41 40 MG Salmeterol Xinafoate/ Fluticasone (Advair Diskus 500/50 Inh) 1 puff BID INH 06/14/16 21:00 07/14/16 20:59 06/16/16 08:41 1 PUFF Metoprolol Succinate (Toprol Xl Tab) 150 mg DAILY PO 06/15/16 09:00 07/15/16 08:59 Future Hold Prednisone (PredniSONE TAB) 15 mg QAM PO 06/15/16 09:00 07/15/16 08:59 Future Hold 06/16/16 08:40 15 MG Pregabalin (Lyrica Cap) 150 mg TID PO 06/14/16 14:00 07/14/16 13:59 06/16/16 08:39 150 MG Verapamil HCl (Calan-Sr Tab) 240 mg DAILY PO 06/15/16 09:00 07/15/16 08:59 06/16/16 08:39 240 MG Insulin Glargine (Lantus Vial) BID SC 06/14/16 21:00 07/14/16 20:59 06/16/16 09:22 60 UNIT Metoprolol Tartrate (Lopressor Iv) 5 mg Q6 IV. 06/14/16 18:00 07/14/16 17:59 06/16/16 05:53 5 MG Hydralazine HCl 10 mg 10 mg Q6H PRN IV. 06/14/16 14:00 07/14/16 13:59 Pantoprazole Sodium 40 mg/ Syringe 10 ml @ 5 mls/min DAILY@11 IV 06/15/16 11:00 07/15/16 10:59 06/15/16 10:41 5 MLS/MIN Doxycycline Hyclate/Dextrose (Vibramycin IV/ D5 100ml) 110 ml @ 50 mls/hr BID IV 06/14/16 21:00 06/24/16 20:59 06/16/16 08:57 50 MLS/HR Albuterol/ Ipratropium (Duoneb) 3 ml Q4 PRN INH 06/14/16 14:00 07/14/16 13:59 Heparin Sodium (Porcine) (Heparin Sq 5000 Unit/0.5ml) 5,000 unit Q8 SQ 06/14/16 22:00 07/14/16 21:59 06/16/16 05:54 5,000 UNIT Miscellaneous Information (Consult Glycemic Management Pharmacy) 1 ea UD PRN N/A 06/14/16 15:34 07/14/16 15:33 Nystatin (Mycostatin Oint) 1 appln TID EXT 06/14/16 21:00 07/14/16 20:59 06/16/16 08:41 1 APPLN Tiotropium [place] (Spiriva Handihaler Inhaler) 1 puff DAILY INH 06/15/16 09:00 07/15/16 08:59 06/16/16 08:40 1 PUFF Glucose (Glucose 40% Gel) 15-30 GRAMS 15 GRAMS... UD PRN PO 06/14/16 17:00 07/14/16 16:59 Glucose (Glucose Chew Tab) 4-8 Tablets 4 Tabl... UD PRN PO 06/14/16 17:00 07/14/16 16:59 Dextrose (Dextrose 50% 50ML Syringe) 25-50ML OF 50% DW IV FOR... UD PRN IV 06/14/16 17:00 07/14/16 16:59 Glucagon (Glucagon Inj) 1 mg UD PRN SQ 06/14/16 17:00 07/14/16 16:59 Acetaminophen/ Hydrocodone Bitart prn TID PRN PO 06/15/16 09:45 06/29/16 09:44 06/16/16 08:39 2 TAB Furosemide 40 mg/ Syringe 4 ml @ 4 mls/min DAILY IV 06/16/16 09:00 07/16/16 08:59 06/16/16 08:40 4 MLS/MIN Hydrocortisone Sodium Succinate/ Syringe (Solu-Cortef IV/ Syringe) 1 ml @ 4 mls/min Q8 IV 06/15/16 15:00 07/15/16 13:59 06/16/16 05:52 4 MLS/MIN Impression (1) Obesity hypoventilation syndrome (2) Respiratory failure with hypercapnia (3) CO2 narcosis (4) Hypercalcemia (5) Pulmonary nodules (6) Chronic kidney disease (CKD) stage G3b/A1, moderately decreased glomerular filtration rate (GFR) between 30-44 mL/min/1.73 square meter and albuminuria creatinine ratio less than 30 mg/g Patient admitted to the hospital for evaluation respiratory failure w/ CO2 narcosis and hypercalcemia. Her medical history is significant for stage III CKD (baseline creatinine 1.7 - 2.0), HTN, obesity (BMI 56) and obesity hypoventilation syndrome. In October 2014 she had an echocardiogram performed which revealed LVEF 55 - 60%, mild LVH, RVSP 45, mild RV dilation and moderate TR. She was hospitalized 05/16 w/ CHF and cellulitis. As an outpatient she has developed progressive volume overload requiring the addition of Metolazone to her regular diuretic regimen. She responded well and lost 7 kg fluid weight in one week. She unfortunately developed progressive weakness and is now admitted with respiratory failure, severe hypercarbia and hypercalcemia. Preliminary evaluation of hypercalcemia reveals normal thyroid function, low PTH, normal vitamin D and alkaline phosphatase level. Serum RAMIRO level, serum free light chains, PTHrp and Vitamin A levels are pending. PMH - CKD w/ baseline creatinine 1.7 - 2.0, HTN, AODM, BMI > 50, COPD (home O2 at 3 L / min ATC), lung nodule, RA of hands, cor pulmonale (Echo 11/14: LVEF 55 - 60%, mild LVH, RVSP 45, mild RV dilation and moderate TR) Recommendations HYPERCALCEMIA: -- Agree with stopping Metolazone -- Calcitonin and Zometa have already been given. Serum calcium is improved from 14.5 to 11.3 today -- TSH, T4, alkaline phosphatase and vitamin D level are within normal limits. PTH is appropriately suppressed -- Await balance of hypercalcemia evaluation (serum free light chains, PTHrp, serum RAMIRO level, Vitamin A level are pending) -- Continue IV loop diuretic GUNNAR: -- Resolved CKD: -- Baseline creatinine has been 1.7 - 2.0 PULM: -- Obesity hypoventilation syndrome -- Presented to hospital w/ severe hypercapnia -- Recommend follow up ABG, CXR and consultation w/ Pulmonology
[2016-06-16] MEDS: PANTOprazole INJ 40 MG in SYRINGE 0 ML IV SCH (11:29)
--- NOTE | 2016-06-16 11:32 | DIAGNOSTIC IMAGING REPORT ---
CHEST ONE VIEW PORTABLE CLINICAL HISTORY: hypoxia ? Fluid overload dyspnea COMPARISON STUDY: 06/14/2016 FINDINGS: Moderate cardiomegaly. This is stable. Developing right basilar infiltrate. Unchanging components of mild congestive failure. IMPRESSION: Mild congestive failure similar to the prior exam. Developing right basilar parenchymal infiltrate. Electronically signed by: Mateo Bone M.D. 06/16/2016 11:30 AM Dictated Date/Time: 06/16/2016 11:29 AM
[2016-06-16 11:51] LABS: VEN BLD GAS O2 SATURATION < 60.0 %; VENOUS BLOOD GAS PCO2 75 mmHg (38.0-50.0); VENOUS BLOOD GAS PO2 26 mmHg
[2016-06-16] MEDS: CEFTRIAXONE SOD INJ 1 GM in DEXTROSE 5% ADD-VANTAGE 50ML 50 ML IV SCH (13:26)
[2016-06-16] MEDS: HYDROmorphone INJ 1 MG/ML SYR IV PRN ×2 (13:26→21:11)
--- NOTE | 2016-06-16 13:26 | Hospitalist Progress Note ---
Hospitalist Progress Note Date of Service Jun 16, 2016. (Maegan Patel PA-C) Subjective Pt evaluation today including: conversation w/ patient, conversation w/ family , physical exam, chart review, lab review, review of studies, conversation w/ performance improvement consultant, review of inpatient medication list Breathing continues to be labored. She admits that might be slightly better than on admission. Denies cough or chest pain. Is complaining of mid back pain where she fell and hit her back at home. Oral pain medicines are helping. She did receive 1 dose of Dilaudid 1 mg IV last night that helped her sleep. According to the , the drowsiness has improved. She is still falling asleep mid sentence. Additional Comments: 6 system review negative. Please see pertinent positives in the history of present illness section. (Maegan Patel PA-C) Objective Vital Signs Date Time Temp Pulse Resp B/P Pulse Ox O2 Delivery O2 Flow Rate FiO2 06/16/16 12:00 Venturi Mask 50 06/16/16 11:29 36.3 71 20 148/75 91 Venturi Mask 50 06/16/16 11:28 71 148/75 06/16/16 08:00 Venturi Mask 50 06/16/16 07:33 36.5 96 25 135/73 90 Venturi Mask 15.0 50 06/16/16 05:53 90 06/16/16 04:59 Venturi Mask 50 06/16/16 03:12 37.4 87 20 143/72 92 BiPAP 06/16/16 01:18 Venturi Mask 50 06/16/16 00:32 82 06/15/16 23:29 37.3 84 20 125/68 91 BiPAP 06/15/16 20:46 36.7 91 22 168/64 89 Venturi Mask 15.0 06/15/16 20:34 Venturi Mask 50 06/15/16 18:43 92 132/61 06/15/16 16:00 93 Venturi Mask 15.0 50 06/15/16 16:00 37.0 91 18 143/69 95 Venturi Mask 15.0 50 06/15/16 14:10 87 93 60 06/15/16 14:00 86 19 136/63 92 06/15/16 13:41 92 176/84 (Urban, Maegan P., PA-C) Physical Exam General Appearance: + moderate distress (moderate respiratory distress. Drowsy. Falling asleep. Arousable to verbal stimuli.) Eyes: EOMI ENT: + pertinent finding (Venturi mask in place.) Neck: no JVD Respiratory/Chest: + pertinent finding (few crackles at the bases bilaterally. No significant wheezing. Positive tachypnea.) Cardiovascular: regular rate, rhythm Abdomen: + pertinent finding (obese. Bowel sounds present. No point tenderness noted. Excoriation in the skin folds is improving.) Extremities: + pertinent finding (pitting edema in the lower extremities is improved bilaterally. Decreased erythema.) 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: oriented x 3 (alert and answering questions appropriately. She does fall asleep mid sentence. Continues to be arousable to verbal stimuli. No focal motor deficits noted.) Skin: warm/dry (Maegan Patel, JOSHUA) Laboratory Results 06/14/16 10:25 Red Blood Count 3.58, Mean Corpuscular Volume 98.0, Mean Corpuscular Hemoglobin 31.3, Mean Corpuscular Hemoglobin Concent 31.9, Mean Platelet Volume 10.4, Neutrophils (%) (Auto) 73.5, Lymphocytes (%) (Auto) 7.8, Monocytes (%) (Auto) 17.0, Eosinophils (%) (Auto) 1.4, Basophils (%) (Auto) 0.1, Neutrophils # (Auto ) 9.15, Lymphocytes # (Auto) 0.97, Monocytes # (Auto) 2.12, Eosinophils # (Auto ) 0.17, Basophils # (Auto) 0.01 06/15/16 03:25 Red Blood Count 3.24, Mean Corpuscular Volume 98.8, Mean Corpuscular Hemoglobin 30.6, Mean Corpuscular Hemoglobin Concent 30.9, Mean Platelet Volume 10.1, Neutrophils (%) (Auto) 84.1, Lymphocytes (%) (Auto) 5.9, Monocytes (%) (Auto) 9.2, Eosinophils (%) (Auto) 0.5, Basophils (%) (Auto) 0.0, Neutrophils # (Auto) 8.64, Lymphocytes # (Auto) 0.61, Monocytes # (Auto) 0.94, Eosinophils # (Auto) 0.05, Basophils # (Auto) 0.00 06/16/16 03:19 Red Blood Count 3.18, Mean Corpuscular Volume 99.4, Mean Corpuscular Hemoglobin 31.1, Mean Corpuscular Hemoglobin Concent 31.3, Mean Platelet Volume 10.1, Neutrophils (%) (Auto) 84.4, Lymphocytes (%) (Auto) 10.2, Monocytes (%) (Auto) 4.6, Eosinophils (%) (Auto) 0.4, Basophils (%) (Auto) 0.0, Neutrophils # (Auto) 6.62, Lymphocytes # (Auto) 0.80, Monocytes # (Auto) 0.36, Eosinophils # (Auto) 0.03, Basophils # (Auto) 0.00 06/14/16 10:25 06/14/16 14:22 06/14/16 21:00 06/15/16 03:25 06/15/16 09:03 06/15/16 15:17 06/15/16 21:11 06/16/16 03:19 06/16/16 09:03 Test 06/14/16 10:25 06/14/16 11:00 06/14/16 11:54 06/14/16 14:22 White Blood Count 12.45 K/uL (4.8-10.8) Red Blood Count 3.58 M/uL (4.2-5.4) Hemoglobin 11.2 g/dL (12.0-16.0) Hematocrit 35.1 % (37-47) Mean Corpuscular Volume 98.0 fL (80-100) Mean Corpuscular Hemoglobin 31.3 pg (25-34) Mean Corpuscular Hemoglobin Concent 31.9 g/dl (32-36) Platelet Count 229 K/uL (130-400) Mean Platelet Volume 10.4 fL (7.4-10.4) Neutrophils (%) (Auto) 73.5 % Lymphocytes (%) (Auto) 7.8 % Monocytes (%) (Auto) 17.0 % Eosinophils (%) (Auto) 1.4 % Basophils (%) (Auto) 0.1 % Neutrophils # (Auto) 9.15 K/uL (1.4-6.5) Lymphocytes # (Auto) 0.97 K/uL (1.2-3.4) Monocytes # (Auto) 2.12 K/uL (0.11-0.59) Eosinophils # (Auto) 0.17 K/uL (0-0.5) Basophils # (Auto) 0.01 K/uL (0-0.2) RDW Standard Deviation 66.3 fL (36.4-46.3) RDW Coefficient of Variation 18.4 % (11.5-14.5) Immature Granulocyte % (Auto) 0.2 % Immature Granulocyte # (Auto) 0.03 K/uL (0.00-0.02) Prothrombin Time 10.6 SECONDS (9.0-12.0) Prothromb Time International Ratio 1.0 (0.9-1.1) Activated Partial Thromboplast Time 18.9 SECONDS (21.0-31.0) Partial Thromboplastin Ratio 0.7 Anion Gap 0.0 mmol/L (3-11) 1.0 mmol/L (3-11) Est Creatinine Clear Calc Drug Dose 33.8 ml/min 35.3 ml/min Estimated GFR () 23.1 24.3 Estimated GFR (Non- 19.9 20.9 BUN/Creatinine Ratio 41.1 (10-20) 42.8 (10-20) Calcium Level 14.5 mg/dl (8.5-10.1) 13.7 mg/dl (8.5-10.1) Magnesium Level 2.5 mg/dl (1.8-2.4) Total Bilirubin 0.3 mg/dl (0.2-1) Direct Bilirubin < 0.1 mg/dl (0-0.2) Aspartate Amino Transf (AST/SGOT) 27 U/L (15-37) Alanine Aminotransferase (ALT/SGPT) 38 U/L (12-78) Alkaline Phosphatase 78 U/L (45-117) Total Creatine Kinase 159 U/L (26-192) Creatine Kinase MB 4.4 ng/ml (0.5-3.6) Creatine Kinase MB Ratio 2.8 (0-3.0) Troponin I 0.028 ng/ml (0-0.045) Total Protein 9.2 gm/dl (6.4-8.2) Albumin 3.1 gm/dl (3.4-5.0) Thyroid Stimulating Hormone (TSH) 2.170 uIu/ml (0.300-4.500) Random Cortisol 18.33 mcg/dl Urine Color YELLOW Urine Appearance CLEAR (CLEAR) Urine pH 5.0 (4.5-7.5) Urine Specific [place] 1.011 (1.000-1.030) Urine Protein NEG (NEG) Urine Glucose (UA) NEG (NEG) Urine Ketones NEG (NEG) Urine Occult Blood NEG (NEG) Urine Nitrite NEG (NEG) Urine Bilirubin NEG (NEG) Urine Urobilinogen NEG (NEG) Urine Leukocyte Esterase NEG (NEG) Venous Blood pH 7.34 (7.36-7.41) 7.29 (7.36-7.41) Venous Blood Partial Pressure CO2 90 mmHg (38.0-50.0) 93 mmHg (38.0-50.0) Venous Blood Partial Pressure O2 31 mmHg 33 mmHg Venous Blood HCO3 47 mmol/L 44 mmol/L Venous Blood Oxygen Saturation < 60.0 % < 60.0 % Venous Blood Base Excess 17.1 mmol/L 14.3 mmol/L Ionized Calcium 1.89 mmol/l (1.12-1.32) Parathyroid Hormone (Intact) 10.2 pg/mL (11.1-79.5) Test 06/14/16 14:55 06/14/16 15:02 06/14/16 16:32 06/14/16 20:46 Phosphorus Level 5.1 mg/dl (2.5-4.9) Lipase 148 U/L (73-393) 25-Hydroxy Vitamin D Total 34.0 ng/ml (30-100) Thyroxine (T4) 4.5 mcg/dl (4.5-10.9) Bedside Glucose 181 mg/dl (70-90) 185 mg/dl (70-90) Test 06/14/16 21:00 06/14/16 21:10 06/15/16 00:17 06/15/16 03:25 Anion Gap 4.0 mmol/L (3-11) 2.0 mmol/L (3-11) Est Creatinine Clear Calc Drug Dose 40.3 ml/min 38.5 ml/min Estimated GFR () 28.5 27.0 Estimated GFR (Non- 24.6 23.3 BUN/Creatinine Ratio 45.2 (10-20) 40.6 (10-20) Calcium Level 13.0 mg/dl (8.5-10.1) 12.7 mg/dl (8.5-10.1) Ionized Calcium 1.70 mmol/l (1.12-1.32) 1.66 mmol/l (1.12-1.32) Magnesium Level 2.2 mg/dl (1.8-2.4) 1.9 mg/dl (1.8-2.4) Erythrocyte Sedimentation Rate 74 mm/hr (0-21) Bedside Glucose 200 mg/dl (70-90) 170 mg/dl (70-90) White Blood Count 10.27 K/uL (4.8-10.8) Red Blood Count 3.24 M/uL (4.2-5.4) Hemoglobin 9.9 g/dL (12.0-16.0) Hematocrit 32.0 % (37-47) Mean Corpuscular Volume 98.8 fL (80-100) Mean Corpuscular Hemoglobin 30.6 pg (25-34) Mean Corpuscular Hemoglobin Concent 30.9 g/dl (32-36) Platelet Count 193 K/uL (130-400) Mean Platelet Volume 10.1 fL (7.4-10.4) Neutrophils (%) (Auto) 84.1 % Lymphocytes (%) (Auto) 5.9 % Monocytes (%) (Auto) 9.2 % Eosinophils (%) (Auto) 0.5 % Basophils (%) (Auto) 0.0 % Neutrophils # (Auto) 8.64 K/uL (1.4-6.5) Lymphocytes # (Auto) 0.61 K/uL (1.2-3.4) Monocytes # (Auto) 0.94 K/uL (0.11-0.59) Eosinophils # (Auto) 0.05 K/uL (0-0.5) Basophils # (Auto) 0.00 K/uL (0-0.2) RDW Standard Deviation 66.6 fL (36.4-46.3) RDW Coefficient of Variation 18.3 % (11.5-14.5) Immature Granulocyte % (Auto) 0.3 % Immature Granulocyte # (Auto) 0.03 K/uL (0.00-0.02) Nucleated RBC Absolute Count (auto) 0.02 K/uL (0-0) Nucleated Red Blood Cells % 0.2 % Phosphorus Level 4.0 mg/dl (2.5-4.9) Test 06/15/16 06:10 06/15/16 08:22 06/15/16 08:31 06/15/16 09:03 Urine Random Creatinine 19.0 mg/dl Urine Random Total Protein < 5.0 mg/dl (0-11.9) Urine Random Calcium < 5.0 mg/dl Urine Protein/Creatinine Ratio (0-0.2) Blood Gas Sample Site Art Line Bedside Blood Gas pH (LAB) 7.33 (7.35-7.45) Bedside Blood Gas pCO2 (LAB) 85 mmHg (35-46) Bedside Blood Gas pO2 (LAB) 110 mmHg (80-95) Bedside Blood Gas HCO3 (LAB) 45 meq/L (19-24) Bedside Blood Gas Total CO2 > 40 mEq/l (24-31) Bedside Blood Gas Base Excess (LAB) 19.0 meq/L (-9-1.8) Bedside Blood Gas O2 Saturation 98.0 % (90-95) Oleg Test NA Oxygen Delivery Device BIPAP Bedside Oxygen Rate (breaths/min) 12 Bedside FiO2 60 % Blood Gas IPAP 14 Bedside Glucose 169 mg/dl (70-90) Anion Gap 1.0 mmol/L (3-11) Est Creatinine Clear Calc Drug Dose 42.4 ml/min Estimated GFR () 30.2 Estimated GFR (Non- 26.1 BUN/Creatinine Ratio 41.3 (10-20) Calcium Level 11.6 mg/dl (8.5-10.1) Ionized Calcium 1.63 mmol/l (1.12-1.32) Magnesium Level 1.9 mg/dl (1.8-2.4) Test 06/15/16 13:32 06/15/16 15:17 06/15/16 16:27 06/15/16 20:27 Bedside Glucose 204 mg/dl (70-90) 178 mg/dl (70-90) 167 mg/dl (70-90) Anion Gap 4.0 mmol/L (3-11) Est Creatinine Clear Calc Drug Dose 44.7 ml/min Estimated GFR () 32.2 Estimated GFR (Non- 27.8 BUN/Creatinine Ratio 42.0 (10-20) Calcium Level 11.7 mg/dl (8.5-10.1) Ionized Calcium 1.54 mmol/l (1.12-1.32) Magnesium Level 1.6 mg/dl (1.8-2.4) Test 06/15/16 21:11 06/15/16 22:00 06/16/16 00:08 06/16/16 03:19 Anion Gap 3.0 mmol/L (3-11) 1.0 mmol/L (3-11) Est Creatinine Clear Calc Drug Dose 44.7 ml/min 44.7 ml/min Estimated GFR () 32.2 32.2 Estimated GFR (Non- 27.8 27.8 BUN/Creatinine Ratio 41.1 (10-20) 39.5 (10-20) Calcium Level 11.8 mg/dl (8.5-10.1) 11.1 mg/dl (8.5-10.1) Ionized Calcium 1.49 mmol/l (1.12-1.32) 1.48 mmol/l (1.12-1.32) Magnesium Level 1.5 mg/dl (1.8-2.4) 1.6 mg/dl (1.8-2.4) Bedside Glucose 193 mg/dl (70-90) White Blood Count 7.84 K/uL (4.8-10.8) Red Blood Count 3.18 M/uL (4.2-5.4) Hemoglobin 9.9 g/dL (12.0-16.0) Hematocrit 31.6 % (37-47) Mean Corpuscular Volume 99.4 fL (80-100) Mean Corpuscular Hemoglobin 31.1 pg (25-34) Mean Corpuscular Hemoglobin Concent 31.3 g/dl (32-36) Platelet Count 167 K/uL (130-400) Mean Platelet Volume 10.1 fL (7.4-10.4) Neutrophils (%) (Auto) 84.4 % Lymphocytes (%) (Auto) 10.2 % Monocytes (%) (Auto) 4.6 % Eosinophils (%) (Auto) 0.4 % Basophils (%) (Auto) 0.0 % Neutrophils # (Auto) 6.62 K/uL (1.4-6.5) Lymphocytes # (Auto) 0.80 K/uL (1.2-3.4) Monocytes # (Auto) 0.36 K/uL (0.11-0.59) Eosinophils # (Auto) 0.03 K/uL (0-0.5) Basophils # (Auto) 0.00 K/uL (0-0.2) RDW Standard Deviation 67.9 fL (36.4-46.3) RDW Coefficient of Variation 18.6 % (11.5-14.5) Immature Granulocyte % (Auto) 0.4 % Immature Granulocyte # (Auto) 0.03 K/uL (0.00-0.02) Nucleated RBC Absolute Count (auto) 0.02 K/uL (0-0) Nucleated Red Blood Cells % 0.3 % Phosphorus Level 2.7 mg/dl (2.5-4.9) Test 06/16/16 04:12 06/16/16 08:51 06/16/16 09:03 06/16/16 11:29 Bedside Glucose 202 mg/dl (70-90) 192 mg/dl (70-90) 261 mg/dl (70-90) Anion Gap 2.0 mmol/L (3-11) Est Creatinine Clear Calc Drug Dose 44.7 ml/min Estimated GFR () 32.2 Estimated GFR (Non- 27.8 BUN/Creatinine Ratio 39.2 (10-20) Calcium Level 11.3 mg/dl (8.5-10.1) Ionized Calcium 1.48 mmol/l (1.12-1.32) Magnesium Level 1.7 mg/dl (1.8-2.4) Test 06/16/16 11:34 Venous Blood pH 7.36 (7.36-7.41) Venous Blood Partial Pressure CO2 75 mmHg (38.0-50.0) Venous Blood Partial Pressure O2 26 mmHg Venous Blood HCO3 41 mmol/L Venous Blood Oxygen Saturation < 60.0 % Venous Blood Base Excess 13.0 mmol/L Date/Time Source Procedure Growth Status 06/14/16 15:00 Nasal MRSA DNA Surveillance Screen - Final Specimen Negative for MRSA by DNA Probe Complete 06/14/16 11:00 Urine,Catheterized Urine Culture - Final Escherichia Coli Complete Last 24 Hours Test 06/15/16 13:32 06/15/16 15:17 06/15/16 16:27 06/15/16 20:27 Bedside Glucose 204 mg/dl 178 mg/dl 167 mg/dl Sodium Level 142 mmol/L Potassium Level 3.1 mmol/L Chloride Level 97 mmol/L Carbon Dioxide Level 41 mmol/L Anion Gap 4.0 mmol/L Blood Urea Nitrogen 80 mg/dl Creatinine 1.90 mg/dl Est Creatinine Clear Calc Drug Dose 44.7 ml/min Estimated GFR () 32.2 Estimated GFR (Non- 27.8 BUN/Creatinine Ratio 42.0 Random Glucose 193 mg/dl Calcium Level 11.7 mg/dl Ionized Calcium 1.54 mmol/l Magnesium Level 1.6 mg/dl Test 06/15/16 21:11 06/15/16 22:00 06/16/16 00:08 06/16/16 03:19 Sodium Level 138 mmol/L 143 mmol/L Potassium Level 3.6 mmol/L 3.6 mmol/L Chloride Level 96 mmol/L 98 mmol/L Carbon Dioxide Level 39 mmol/L 44 mmol/L Anion Gap 3.0 mmol/L 1.0 mmol/L Blood Urea Nitrogen 78 mg/dl 75 mg/dl Creatinine 1.90 mg/dl 1.90 mg/dl Est Creatinine Clear Calc Drug Dose 44.7 ml/min 44.7 ml/min Estimated GFR () 32.2 32.2 Estimated GFR (Non- 27.8 27.8 BUN/Creatinine Ratio 41.1 39.5 Random Glucose 180 mg/dl 190 mg/dl Calcium Level 11.8 mg/dl 11.1 mg/dl Ionized Calcium 1.49 mmol/l 1.48 mmol/l Magnesium Level 1.5 mg/dl 1.6 mg/dl Bedside Glucose 193 mg/dl White Blood Count 7.84 K/uL Red Blood Count 3.18 M/uL Hemoglobin 9.9 g/dL Hematocrit 31.6 % Mean Corpuscular Volume 99.4 fL Mean Corpuscular Hemoglobin 31.1 pg Mean Corpuscular Hemoglobin Concent 31.3 g/dl Platelet Count 167 K/uL Mean Platelet Volume 10.1 fL Neutrophils (%) (Auto) 84.4 % Lymphocytes (%) (Auto) 10.2 % Monocytes (%) (Auto) 4.6 % Eosinophils (%) (Auto) 0.4 % Basophils (%) (Auto) 0.0 % Neutrophils # (Auto) 6.62 K/uL Lymphocytes # (Auto) 0.80 K/uL Monocytes # (Auto) 0.36 K/uL Eosinophils # (Auto) 0.03 K/uL Basophils # (Auto) 0.00 K/uL RDW Standard Deviation 67.9 fL RDW Coefficient of Variation 18.6 % Immature Granulocyte % (Auto) 0.4 % Immature Granulocyte # (Auto) 0.03 K/uL Nucleated RBC Absolute Count (auto) 0.02 K/uL Nucleated Red Blood Cells % 0.3 % Phosphorus Level 2.7 mg/dl Test 06/16/16 04:12 06/16/16 08:51 06/16/16 09:03 06/16/16 11:29 Bedside Glucose 202 mg/dl 192 mg/dl 261 mg/dl Sodium Level 143 mmol/L Potassium Level 3.7 mmol/L Chloride Level 98 mmol/L Carbon Dioxide Level 43 mmol/L Anion Gap 2.0 mmol/L Blood Urea Nitrogen 75 mg/dl Creatinine 1.90 mg/dl Est Creatinine Clear Calc Drug Dose 44.7 ml/min Estimated GFR () 32.2 Estimated GFR (Non- 27.8 BUN/Creatinine Ratio 39.2 Random Glucose 197 mg/dl Calcium Level 11.3 mg/dl Ionized Calcium 1.48 mmol/l Magnesium Level 1.7 mg/dl Test 06/16/16 11:34 Venous Blood pH 7.36 Venous Blood Partial Pressure CO2 75 mmHg Venous Blood Partial Pressure O2 26 mmHg Venous Blood HCO3 41 mmol/L Venous Blood Oxygen Saturation < 60.0 % Venous Blood Base Excess 13.0 mmol/L (Maegan Patel, PA-C) Assessment and Plan 60-year-old female with a history of morbid obesity, COPD, chronic diastolic heart failure presents emergency department with altered mental status and frequent falls. Found to be in hypercapnic respiratory failure with an elevated calcium Metabolic encephalopathy likely multifactorial, carbon dioxide retention, acute on chronic kidney failure, etc Acute on chronic hypercapnic respiratory failure/morbid obesity hypoventilation syndrome-only mild improvement. ?Hypercarbic narcosis causing pt to be so drowsy -repeat VBG today -consult pulmonary Hypercalcemia-calcium trending down. Etiology unknown -Nephrology following. Labs still pending. -Calcitonin and Zometa given -Continue Lasix 40 mg IV daily per nephrology -IV fluids discontinued Acute on chronic diastolic heart failure -Repeat chest x-ray today Escherichia coli UTI, and bilateral lower extremity mild cellulitis on doxycycline at home Begin ceftriaxone 1 g IV daily for a total of 7 days COPD-no significant wheezing on exam -Continue Spiriva and Advair -Home dose of prednisone 15 mg po daily changed to stress dose steroids. -Initially on hydrocortisone 100 mg IV q 8 hr--> decreased to 50 mg IV q 8 hr. continue her current dose diabetes mellitus -Pharmacy managing Acute on chronic renal failure-creatinine at baseline -Nephrology following Acute back pain -dilaudid 1 mg IV q 4 h x 3 doses DVT prophylaxis -Heparin 5000 u subQ tid -TEDS, SCDs CODE STATUS Discussed with patient's , okay CPR shock but DO NOT INTUBATE This chart was completed in part utilizing [employer] Speech Voice Recognition software. Attempts were made to minimize the grammatical errors, random word insertions, pronoun errors and incomplete sentences. Any formal questions or concerns about the content, text or information contained within the body of this dictation should be directly addressed to the provider for clarification. (Maegan Patel, PAKadeemC) Reviewed: Pt Seen/Exam by Me (Sarah Goetz, ) History Pt is still SOB, but better. Tolerating BIPAP now. Still drowsy at times. Still feeling weak. No chest pain. Agree with HPI/ROS as noted. (Sarah Goetz, DO) General Appearance: mild distress (some SOB on BIIPAP), obese Respiratory: respiratory distress, decreased breath sounds Cardiovascular: regular rate, rhythm, no edema Gastrointestinal: non tender, soft, distended Extremities: non-tender, no pedal edema 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: alert, other (wakes easily, did not fall asleep during our discussion) Skin Characteristics: normal color, warm/dry (Sarah Goetz, ) Assessment/Plan Agree with plan as outlined above Metabolic encephalopathy related to acute on chronic respiratory failure and resulting hypercarbia Improving CO2 levels UTI noted with MDR On chronic abx for chronic LE cellulitis HyperCa, resolved with calcitonin and steroids, urine studies pending (Sarah Goetz, DO)
--- NOTE | 2016-06-16 14:34 | Pharmacy Progress Note ---
Glycemic Control: Progress Nt Date of Service Jun 16, 2016. Scope Glycemic Pharmacist consulted by Maegan Patel on 06/14/2016 for glycemic control and to write orders per [facility] inpatient glycemic control protocol. Objective Accuchecks BSG (last 24hrs): Test 06/15/16 13:32 06/15/16 15:17 06/15/16 16:27 06/15/16 20:27 Bedside Glucose 204 mg/dl (70-90) 178 mg/dl (70-90) 167 mg/dl (70-90) Random Glucose 193 mg/dl (70-99) Test 06/15/16 21:11 06/16/16 00:08 06/16/16 03:19 06/16/16 04:12 Random Glucose 180 mg/dl (70-99) 190 mg/dl (70-99) Bedside Glucose 193 mg/dl (70-90) 202 mg/dl (70-90) Test 06/16/16 08:51 06/16/16 09:03 Bedside Glucose 192 mg/dl (70-90) Random Glucose 197 mg/dl (70-99) Laboratory Data (last 24hrs) Test 06/15/16 15:17 06/15/16 21:11 06/16/16 03:19 06/16/16 09:03 Anion Gap 4.0 mmol/L 3.0 mmol/L 1.0 mmol/L 2.0 mmol/L BUN/Creatinine Ratio 42.0 41.1 39.5 39.2 Blood Urea Nitrogen 80 mg/dl 78 mg/dl 75 mg/dl 75 mg/dl Creatinine 1.90 mg/dl 1.90 mg/dl 1.90 mg/dl 1.90 mg/dl Potassium Level 3.1 mmol/L 3.6 mmol/L 3.6 mmol/L 3.7 mmol/L Sodium Level 142 mmol/L 138 mmol/L 143 mmol/L 143 mmol/L White Blood Count 7.84 K/uL Red Blood Count 3.18 M/uL Hemoglobin 9.9 g/dL Hematocrit 31.6 % Mean Corpuscular Volume 99.4 fL Mean Corpuscular Hemoglobin 31.1 pg Mean Corpuscular Hemoglobin Concent 31.3 g/dl Platelet Count 167 K/uL Mean Platelet Volume 10.1 fL Neutrophils (%) (Auto) 84.4 % Lymphocytes (%) (Auto) 10.2 % Monocytes (%) (Auto) 4.6 % Eosinophils (%) (Auto) 0.4 % Basophils (%) (Auto) 0.0 % Neutrophils # (Auto) 6.62 K/uL Lymphocytes # (Auto) 0.80 K/uL Monocytes # (Auto) 0.36 K/uL Eosinophils # (Auto) 0.03 K/uL Basophils # (Auto) 0.00 K/uL Recent Pertinent Medications Outpatient Anti-diabetic Regimen: * Toujeo 70 units TID plus Novolog 50 units with breakfast, 50 units with lunch , 90 units with dinner, and 40 units at bedtime (confirmed with [employer] record) * A1c = 6.3 % 05/20/2016 Risk Factors for Insulin Resistance: * Steroids: hydrocortisone 100 mg IV q8 hours * Infection: chronic cellulitis currently on IV doxycycline * Diet: NPO Assessment & Plan ASSESSMENT: * ADA & AACE recommend a goal blood sugar range 140-180 mg/dl for the majority of critically ill & non-critically ill patients. However, more stringent targets may be selected in individual cases. 06/14/2016 * Ms Gaytan is a 60 y/o F admitted with a fall and hypercarbic respiratory failure. She is well-known to the glycemic control. The patient is well controlled on her home regimen. HOWEVER, according to previous information, it is necessary to reduce the patient's insulin dosing. Previously she required ~ 250 units/day. * Based upon the previous admission when the patient had a diet, the patient required 240 units of insulin (equally divided between basal and bolus insulin) . She requires around 110 units of basal insulin per day. Even based upon the best estimated total insulin/day calculator with a stress of 2 110 units SQ BID is recommended. This appears that her basal is close to 110 units. I will continue Lantus twice daily with a scale based upon blood sugars with reduced doses due to the NPO status. I am not entirely sure how she will react. * Previous data also supported the use of a correction factor of 5:1 and a carbohydrate ratio of 2:1. Accuchecks every 4 hours will be utilized to ensure the patient's blood sugars do not rise too rapidly with hydrocortisone use. 06/16/2016 * Ms Gaytan has continued on the same regimen as when she was admitted. She required 108 units yesterday with 100 units being basal insulin.Her blood sugars ranged from 164-204 mg/dL which is adequate control in the patient. * Will continue the current regimen with a tightened goal range as the patient is no longer ICU status with excellent outpatient glycemic control. PLAN FOR INPATIENT GLYCEMIC CONTROL: * Basal insulin with LANTUS 40 units if blood sugar < 140 mg/dL; 50 units is blood sugar 140-180 mg/dL; 60 units if above 180 mg/dl units SQ BID * Correctional Insulin with NOVOLOG Q4hrs while NPO * Goal Range: Low 140 mg/dL - High 180 mg/dL * Correction Factor: 5 mg/dL/unit * Nutritional / Prandial insulin per carb ratio of 1 unit per 2 grams CHO consumed * Please note that the plan above was derived based on current level of insulin resistance and hospital stress. These recommendations are appropriate for inpatient admission only. Plan of care upon discharge will need to be reassessed to avoid potential outpatient hypo/hyperglycemia. Thank you.
[2016-06-16] MEDS ORDERED: ALBUT/IPRATROP 3MG/0.5MG NEB 3 ML VIAL INH PRN (14:45)
--- NOTE | 2016-06-16 15:24 | PULMONARY CONSULTATION ---
DATE OF CONSULTATION: 06/16/2016 TIME: 2:15 p.m. HISTORY OF PRESENT ILLNESS: The patient was seen in room #244. She is a 60-year-old female who was brought to the Emergency Room on June 14 because of a fall. The history is that she has had at least 2 falls in the recent past. During one of the fall, she fell backward, striking her back against the banister. She has totally did not have any loss of consciousness. She has been found to have a very high carbon dioxide levels and she had a calcium level is severely elevated at 14.5 upon admission. She had been totally unresponsive initially. She is now just lethargic. Generally, she seems to be somewhat better. However, she had difficulty staying awake during this examination even though she was on the Trilogy machine. She has been wearing it for a few hours apparently. She has a Trilogy that she wears at home at nighttime and she has been on this for about a year. She is not complaining of shortness of breath. She does not complain of cough. She is not complaining of chest pain. Getting the history; however, is somewhat difficult. This is because of her lethargy. She did at one point fully Trilogy mask off so she could understand me better, but I encouraged her to put it back. She was able to nod yes and no for me appropriately. I would attempt to wake her up periodically. The patient does carry a history of COPD. I reviewed pulmonary functions done as an outpatient in April of 2012 and she had at least moderate obstruction at that point in time. She also has a history of obesity hypoventilation. She also has presumed sleep apnea. I am not sure if she ever had a sleep study per se. According to nursing staff, the patient requires a tremendous amount of help just getting up to the commode and so forth. It is easy to understand why she might have fallen at home. PAST SURGICAL HISTORY: The patient states the only prior surgery she has had is a hysterectomy. PAST MEDICAL HISTORY: 1. Diastolic CHF. 2. Chronic kidney disease stage IV. 3. Diabetes mellitus. 4. Obesity. 5. Hypertension. 6. Chronic venous insufficiency. 7. Cellulitis. 8. COPD as noted. SOCIAL HISTORY: Tobacco - the patient quit smoking 7 years ago. She smoked 2 packs per day for 35 years. Alcohol use is none. FAMILY HISTORY: Could not get specifics from her. There is a listed family history of cancer, diabetes, heart disease, and lung problems. ALLERGIES: LISTED ALLERGIES TO: 1. DAPTOMYCIN, WHICH CAUSED HIVES. 2. CODEINE WITH SIDE EFFECT UNKNOWN. 3. IODINE, SHELLFISH, AND SULFA WITH HISTORY OF A RASH. MEDICATIONS AT HOME: 1. Allopurinol 100 mg daily. 2. Ascorbic acid 1000 mg daily. 3. Lipitor 40 mg daily. 4. Bumetanide 3 mg b.i.d. 5. Vitamin D3 daily. 6. Cipro 500 mg b.i.d. 7. Vitamin B12 2500 mcg daily. 8. Doxycycline 100 mg daily. 9. Advair Diskus 500/50 one puff b.i.d. 10. NovoLog FlexPen 50 units with breakfast, 50 units with lunch and 90 units with supper and 40 units at bedtime. 11. Toujeo 70 units subQ t.i.d. 12. Belviq 10 mg b.i.d. 13. Zaroxolyn 5 mg daily. 14. Metoprolol 150 mg daily. 15. Prednisone 15 mg daily. 16. Lyrica 150 mg t.i.d. 17. Pyridoxine 200 mg daily. 18. Spironolactone 50 mg b.i.d. 19. Spiriva 1 daily. 20. Verapamil ER 240 mg daily. 21. Vitamin E 800 units daily. 22. DuoNeb treatments p.r.n. REVIEW OF SYSTEMS: Very difficult to obtain as the patient kept falling asleep. Mainly she is complaining of back pain at present. She also admits to having constipation and difficulty moving her bowels. She states that her bowels are very dark in color. Remainder is otherwise negative. Ten systems were reviewed. PHYSICAL EXAMINATION: VITAL SIGNS: The patient is a 60-year-old female who is lethargic and somewhat arousable. She was wearing a Trilogy at the time of this exam. Her BMI is severely elevated at 56.1. HEENT: Her pupils were reactive to light. She was keeping her eyes closed most of the time. I could not examine the nasal passage or oropharynx due to the BiPAP mask being in place. NECK: She has a large neck. No lymph nodes were palpable. CHEST: Showed diminished excursions. VITAL SIGNS: Temperature is 36.3. The highest temperature since coming in was 37.3. Heart rate was 70 beats per minute. The rhythm was regular. Blood pressure 148/75. Respiratory rate was 20 breaths per minute. LUNGS: The breath sounds are severely diminished. It was very hard to hear the breath sounds even with the Trilogy machine. Oxygen saturation is 89% on the Trilogy. ABDOMEN: Obese. Bowel sounds were present. She has some skin discoloration as she puts it looks like a bruise on the left side of her abdominal wall, but she states that is chronic. She does have striate. No definite mass was palpable. The bowel sounds were present but they were significantly diminished. EXTREMITIES: Reveals some reddish to purple skin discoloration of both lower extremities. The skin is very dry. No pitting edema was noted. LABORATORY DATA: Electrolytes on admission showed sodium 137, potassium 3.8, chloride 93, bicarbonate 40. BUN was 95 with a creatinine of 2.1. The GFR is severely decreased to 24.6. Blood sugar was 182 on that date. The initial calcium was 14.5, subsequently, it was decreased to 13.7 and most recently is down to 11.7 and then today was 11.1. Arterial blood gas done on the via an arterial line showed a pH of 7.33 with a pCO2 of 85 and a pO2 of 110. That was done on BiPAP, reportedly, Venous blood gas done today showed a pH of 7.36, pCO2 of 75 and a pO2 of 26. White count today is 7.84. Hemoglobin 9.9. Platelets 167,000. IMAGING DATA: Chest x-ray done today showed what was read as mild congestive heart failure similar to the prior exam with a developing right basilar parenchymal infiltrate. Her x-rays are difficult to interpret in light of her obesity. However, the right lower lung rain clearly looked clear back on June 14. It is unknown; however, if the patient actually was taking a deep breath or not. In someone who is markedly obese, hypoventilatory changes could look similar. Head CT done on the showed no definite abnormality. IMPRESSIONS: 1. Respiratory failure with hypercarbia and hypoxia - this would be acute on chronic. 2. Obesity hypoventilation syndrome. 3. Obstructive sleep apnea. 4. Chronic obstructive pulmonary disease. 5. Hypercalcemia. 6. Status post fall. COMMENTS AND RECOMMENDATIONS: The patient is doing relatively poorly, although she is somewhat improved compared with admission. She is on ceftriaxone, hydromorphone, furosemide 40 mg daily, hydrocortisone 50 mg IV q. 8 hours, pantoprazole 40 mg daily, Greig, atorvastatin 40 mg daily, verapamil 240 mg daily, Tiotropium 1 puff daily, subQ heparin q. 8 hours 5000 units, Lantus insulin by protocol, doxycycline 100 mg b.i.d., nystatin t.i.d., metoprolol 5 mg IV q. 6 hours, NovoLog, Lyrica 150 mg t.i.d., hydralazine p.r.n., and DuoNebs p.r.n. It could be she was sleepy this afternoon from the hydromorphone. Ideally with people with high pCO2s, we need to limit sedation as much as possible. However, she is a do not intubate patient and thus comfort care may be at least as appropriate. She is not getting regular breathing treatments. I believe this may benefit her somewhat. I would like to change the treatments to at least q. 6 hours. She could still have p.r.n. treatments as need be. I do believe that her prognosis seems to be poor. I do not understand with certainty why she has the hypercalcemia. PTH studies may need to be done. I will defer this to the hospitalist team. Thank you very much for asking me to assist in her care.
[2016-06-16 16:04] LABS: BUN/CREATININE RATIO 38.4 (10-20); CALCIUM 11.1 mg/dl (8.5-10.1); MAGNESIUM 1.6 mg/dl (1.8-2.4); POTASSIUM 3.6 mmol/L (3.5-5.1)
[2016-06-16] MEDS: ALBUT/IPRATROP 3MG/0.5MG NEB 3 ML VIAL INH SCH ×2 (16:34→19:33)
[2016-06-17] VITALS (15 sets, daily range): BP systolic 123–167; BP diastolic 56–73; PULSE 82–93; TEMP 36.3–36.9; O2SAT 90–94
[2016-06-17] MEDS: INSULIN ASPART 100 UNITS/ML 3 ML PEN SC SCH ×7 (00:07→23:50)
[2016-06-17] MEDS: METOPROLOL TARTRATE 1 MG/ML VIAL IV. SCH ×5 (00:08→23:47)
[2016-06-17] MEDS: HYDROCORTISONE IV 50 MG in SYRINGE 0 ML IV SCH ×3 (06:09→21:01)
[2016-06-17] MEDS: HEPARIN SOD 5000 UNIT/0.5 ML CARP SQ SCH ×3 (06:18→21:05)
[2016-06-17 07:46] LABS: BASO % 0.1 %; BASO ABS # 0.01 K/uL (0-0.2); COMPLETE YES; EOS % 0.4 %; IG% 0.4 %; LYMPH ABS # 0.89 K/uL (1.2-3.4); MEAN CELL VOLUME 97.6 fL (80-100); MEAN CORPUSCULAR HEMOGLOBIN 31.4 pg (25-34); MEAN CORPUSCULAR HGB CONC 32.1 g/dl (32-36); MEAN PLATELET VOLUME 9.9 fL (7.4-10.4); MONO % 6.1 %; PLATELET COUNT 201 K/uL (130-400); RED BLOOD COUNT 3.38 M/uL (4.2-5.4); WHITE BLOOD COUNT 11.15 K/uL (4.8-10.8)
[2016-06-17] MEDS: ALBUT/IPRATROP 3MG/0.5MG NEB 3 ML VIAL INH SCH ×4 (08:08→20:50)
[2016-06-17] MEDS: FLUTICASONE/SALMETEROL (ADVAIR) 500/50 INH 14 PUFF INH SCH ×2 (08:20→20:34)
[2016-06-17] MEDS: TIOTROPIUM BROMIDE 5 PUFF/90 MCG INH INH SCH (08:21)
[2016-06-17] MEDS: VERAPAMIL HCL 240 MG TABCR PO SCH (08:22)
[2016-06-17] MEDS: ATORVASTATIN 40 MG TAB PO SCH (08:22)
[2016-06-17] MEDS: FUROSEMIDE INJ 40 MG in SYRINGE 0 ML IV SCH (08:22)
[2016-06-17] MEDS: NYSTATIN OINT 15 GM TUBE EXT SCH ×3 (08:23→20:34)
[2016-06-17] MEDS: INSULIN GLARGINE SC SCH ×2 (08:27→17:01)
[2016-06-17] MEDS: PREGABALIN 150 MG CAP PO SCH ×3 (08:28→20:39)
[2016-06-17] MEDS: DOXYCYCLINE IV 100 MG in DEXTROSE 5% 100ML 100 ML IV SCH ×2 (08:28→20:40)
[2016-06-17 08:40] LABS: MAGNESIUM 1.8 mg/dl (1.8-2.4); PHOSPHORUS 1.9 mg/dl (2.5-4.9); POTASSIUM 3.5 mmol/L (3.5-5.1)
--- NOTE | 2016-06-17 09:09 | Nephrology Progress Note ---
Nephrology Progress Note Date of Service Jun 17, 2016. Chief Complaint Evaluation of hypercalcemia in this patient with advanced CKD, obesity hypoventilation syndrome and right sided heart failure Subjective Mrs. Gaytan was seen and examined in the PCU this morning. She is more alert this morning. She has been moving between CPAP and O2 at 5 L / min NC since 3 am. Mrs. Gaytan reports that her breathing is subjectively improved. She reports brisk urine output. Review of Systems Constitutional: No fever Cardiovascular: No chest pain Respiratory: + dyspnea at rest Abdomen: No nausea, No pain, No vomiting Extremities: + leg edema A complete review of systems was performed. Pertinent positives are noted above. All other systems are negative. Vital Signs Last 8 Hrs Date Time Temp Pulse Resp B/P Pulse Ox O2 Delivery O2 Flow Rate FiO2 06/17/16 08:08 88 18 93 Nasal Cannula 5.0 06/17/16 07:41 36.7 82 22 123/73 92 BiPAP 06/17/16 06:09 84 152/80 06/17/16 04:00 91 BiPAP 5.0 06/17/16 02:52 36.8 91 22 162/73 94 BiPAP 5.0 I & O 24-Hour Column 06/17/16 08:00 Intake Total 1195 ml Output Total 1950 ml Balance -755 ml Last Recorded Weight Weight (Kilograms): 145.500 Physical Exam General Appearance: + mild distress Head: atraumatic (lara facies) Eyes: PERRL, EOMI Neck: + pertinent finding (short, thick. Unable to assess for JVD or lymphadenopathy) Respiratory/Chest: + crackles (at bases bilaterally) Cardiovascular: regular rate, rhythm Abdomen/GI: non tender (obese, hypoactive bowel sounds) Extremities/Musculoskelatal: no calf tenderness, no pedal edema Neurologic/Psych: alert Family History Cancer Diabetes mellitus Gallbladder disease Heart disease Lung disease Negative for CKD/ESRD Social History Smoking Status: Former smoker Alcohol Use: none Drug Use: none Marital Status: Housing Status: lives with family Occupation: unemployed . Lives with . Remote h/o tobacco use. Laboratory Results Past 24 Hours 06/17/16 07:33 Red Blood Count 3.38, Mean Corpuscular Volume 97.6, Mean Corpuscular Hemoglobin 31.4, Mean Corpuscular Hemoglobin Concent 32.1, Mean Platelet Volume 9.9, Neutrophils (%) (Auto) 85.0, Lymphocytes (%) (Auto) 8.0, Monocytes (%) (Auto) 6.1, Eosinophils (%) (Auto) 0.4, Basophils (%) (Auto) 0.1, Neutrophils # (Auto) 9.47, Lymphocytes # (Auto) 0.89, Monocytes # (Auto) 0.68, Eosinophils # (Auto) 0.05, Basophils # (Auto) 0.01 06/16/16 09:03 06/16/16 15:06 06/17/16 07:33 Test 06/16/16 09:03 06/16/16 11:29 06/16/16 11:34 06/16/16 15:06 Anion Gap 2.0 mmol/L (3-11) 3.0 mmol/L (3-11) Est Creatinine Clear Calc Drug Dose 44.7 ml/min 42.4 ml/min Estimated GFR () 32.2 30.2 Estimated GFR (Non- 27.8 26.1 BUN/Creatinine Ratio 39.2 (10-20) 38.4 (10-20) Calcium Level 11.3 mg/dl (8.5-10.1) 11.1 mg/dl (8.5-10.1) Ionized Calcium 1.48 mmol/l (1.12-1.32) 1.39 mmol/l (1.12-1.32) Magnesium Level 1.7 mg/dl (1.8-2.4) 1.6 mg/dl (1.8-2.4) Bedside Glucose 261 mg/dl (70-90) Venous Blood pH 7.36 (7.36-7.41) Venous Blood Partial Pressure CO2 75 mmHg (38.0-50.0) Venous Blood Partial Pressure O2 26 mmHg Venous Blood HCO3 41 mmol/L Venous Blood Oxygen Saturation < 60.0 % Venous Blood Base Excess 13.0 mmol/L Test 06/16/16 16:23 06/16/16 19:51 06/16/16 23:47 06/17/16 03:41 Bedside Glucose 279 mg/dl (70-90) 243 mg/dl (70-90) 221 mg/dl (70-90) 197 mg/dl (70-90) Test 06/17/16 04:02 06/17/16 05:15 06/17/16 07:33 06/17/16 08:06 Bedside Glucose 210 mg/dl (70-90) 203 mg/dl (70-90) 197 mg/dl (70-90) White Blood Count 11.15 K/uL (4.8-10.8) Red Blood Count 3.38 M/uL (4.2-5.4) Hemoglobin 10.6 g/dL (12.0-16.0) Hematocrit 33.0 % (37-47) Mean Corpuscular Volume 97.6 fL (80-100) Mean Corpuscular Hemoglobin 31.4 pg (25-34) Mean Corpuscular Hemoglobin Concent 32.1 g/dl (32-36) Platelet Count 201 K/uL (130-400) Mean Platelet Volume 9.9 fL (7.4-10.4) Neutrophils (%) (Auto) 85.0 % Lymphocytes (%) (Auto) 8.0 % Monocytes (%) (Auto) 6.1 % Eosinophils (%) (Auto) 0.4 % Basophils (%) (Auto) 0.1 % Neutrophils # (Auto) 9.47 K/uL (1.4-6.5) Lymphocytes # (Auto) 0.89 K/uL (1.2-3.4) Monocytes # (Auto) 0.68 K/uL (0.11-0.59) Eosinophils # (Auto) 0.05 K/uL (0-0.5) Basophils # (Auto) 0.01 K/uL (0-0.2) RDW Standard Deviation 66.9 fL (36.4-46.3) RDW Coefficient of Variation 18.7 % (11.5-14.5) Immature Granulocyte % (Auto) 0.4 % Immature Granulocyte # (Auto) 0.05 K/uL (0.00-0.02) Nucleated RBC Absolute Count (auto) 0.08 K/uL (0-0) Nucleated Red Blood Cells % 0.7 % Anion Gap 4.0 mmol/L (3-11) Est Creatinine Clear Calc Drug Dose 41.9 ml/min Estimated GFR () 30.2 Estimated GFR (Non- 26.1 BUN/Creatinine Ratio 40.0 (10-20) Calcium Level 11.0 mg/dl (8.5-10.1) Phosphorus Level 1.9 mg/dl (2.5-4.9) Magnesium Level 1.8 mg/dl (1.8-2.4) Test 06/17/16 08:30 Allergies Coded Allergies: Daptomycin (Verified Allergy, Mild, HIVES, 06/14/16) itching Codeine (Verified Allergy, Unknown, unknown, 06/14/16) has tolerated morphine Iodine (Verified Allergy, Unknown, 06/14/16) Shellfish (Verified Allergy, Unknown, 06/14/16) Sulfamethoxazole w/Trimethoprim (Verified Allergy, Unknown, RASH, 06/14/16) Medications Current Inpatient Medications Medications (Trade) Dose Ordered Sig/Duyen Route Start Time Stop Time Status Last Admin Dose Admin Acetaminophen (Tylenol Tab) 650 mg Q4H PRN PO 06/14/16 14:00 07/14/16 13:59 06/15/16 13:46 650 MG Ondansetron HCl (Zofran Inj) 4 mg Q6H PRN IV 06/14/16 14:00 07/14/16 13:59 Insulin Aspart (novoLOG ASPART) SLIDING SCALE G... Q4 SC 06/14/16 16:00 07/14/16 15:59 06/17/16 08:26 8 UNITS Atorvastatin Calcium (Lipitor Tab) 40 mg DAILY PO 06/15/16 09:00 07/15/16 08:59 06/17/16 08:22 40 MG Salmeterol Xinafoate/ Fluticasone (Advair Diskus 500/50 Inh) 1 puff BID INH 06/14/16 21:00 07/14/16 20:59 06/17/16 08:20 1 PUFF Metoprolol Succinate (Toprol Xl Tab) 150 mg DAILY PO 06/15/16 09:00 07/15/16 08:59 Future Hold Prednisone (PredniSONE TAB) 15 mg QAM PO 06/15/16 09:00 07/15/16 08:59 Future Hold 06/16/16 08:40 15 MG Pregabalin (Lyrica Cap) 150 mg TID PO 06/14/16 14:00 07/14/16 13:59 06/17/16 08:28 150 MG Verapamil HCl (Calan-Sr Tab) 240 mg DAILY PO 06/15/16 09:00 07/15/16 08:59 06/17/16 08:22 240 MG Insulin Glargine (Lantus Vial) BID SC 06/14/16 21:00 07/14/16 20:59 06/17/16 08:27 60 UNIT Metoprolol Tartrate (Lopressor Iv) 5 mg Q6 IV. 06/14/16 18:00 07/14/16 17:59 06/17/16 06:09 5 MG Hydralazine HCl 10 mg 10 mg Q6H PRN IV. 06/14/16 14:00 07/14/16 13:59 Pantoprazole Sodium 40 mg/ Syringe 10 ml @ 5 mls/min DAILY@11 IV 06/15/16 11:00 07/15/16 10:59 06/16/16 11:29 5 MLS/MIN Doxycycline Hyclate/Dextrose (Vibramycin IV/ D5 100ml) 110 ml @ 50 mls/hr BID IV 06/14/16 21:00 06/24/16 20:59 06/17/16 08:28 50 MLS/HR Heparin Sodium (Porcine) (Heparin Sq 5000 Unit/0.5ml) 5,000 unit Q8 SQ 06/14/16 22:00 07/14/16 21:59 06/17/16 06:18 5,000 UNIT Miscellaneous Information (Consult Glycemic Management Pharmacy) 1 ea UD PRN N/A 06/14/16 15:34 07/14/16 15:33 Nystatin (Mycostatin Oint) 1 appln TID EXT 06/14/16 21:00 07/14/16 20:59 06/17/16 08:23 1 APPLN Tiotropium [place] (Spiriva Handihaler Inhaler) 1 puff DAILY INH 06/15/16 09:00 07/15/16 08:59 06/17/16 08:21 1 PUFF Glucose (Glucose 40% Gel) 15-30 GRAMS 15 GRAMS... UD PRN PO 06/14/16 17:00 07/14/16 16:59 Glucose (Glucose Chew Tab) 4-8 Tablets 4 Tabl... UD PRN PO 06/14/16 17:00 07/14/16 16:59 Dextrose (Dextrose 50% 50ML Syringe) 25-50ML OF 50% DW IV FOR... UD PRN IV 06/14/16 17:00 07/14/16 16:59 Glucagon (Glucagon Inj) 1 mg UD PRN SQ 06/14/16 17:00 07/14/16 16:59 Acetaminophen/ Hydrocodone Bitart prn TID PRN PO 06/15/16 09:45 06/29/16 09:44 06/16/16 17:16 1 TAB Furosemide 40 mg/ Syringe 4 ml @ 4 mls/min DAILY IV 06/16/16 09:00 07/16/16 08:59 06/17/16 08:22 4 MLS/MIN Hydrocortisone Sodium Succinate/ Syringe (Solu-Cortef IV/ Syringe) 1 ml @ 4 mls/min Q8 IV 06/15/16 15:00 07/15/16 13:59 06/17/16 06:09 4 MLS/MIN Hydromorphone HCl 1 mg 1 mg Q4H PRN IV 06/16/16 12:00 06/30/16 11:59 06/16/16 21:11 1 MG Ceftriaxone Sodium/Dextrose (Rocephin Inj/ Dextrose Add-[place] 50ML) 50 ml @ 100 mls/hr DAILY@1400 IV 06/16/16 14:00 06/26/16 13:59 06/16/16 13:26 100 MLS/HR Albuterol/ Ipratropium (Duoneb) 3 ml QIDR INH 06/16/16 16:00 07/16/16 15:59 06/17/16 08:08 3 ML Albuterol/ Ipratropium (Duoneb) 3 ml Q2H PRN INH 06/16/16 14:45 07/16/16 14:44 Impression (1) Obesity hypoventilation syndrome (2) Respiratory failure with hypercapnia (3) CO2 narcosis (4) Hypercalcemia (5) Pulmonary nodules (6) Chronic kidney disease (CKD) stage G3b/A1, moderately decreased glomerular filtration rate (GFR) between 30-44 mL/min/1.73 square meter and albuminuria creatinine ratio less than 30 mg/g Patient admitted to the hospital for evaluation respiratory failure w/ CO2 narcosis and hypercalcemia. Her medical history is significant for stage III CKD (baseline creatinine 1.7 - 2.0), HTN, obesity (BMI 56) and obesity hypoventilation syndrome. In October 2014 she had an echocardiogram performed which revealed LVEF 55 - 60%, mild LVH, RVSP 45, mild RV dilation and moderate TR. She was hospitalized 05/16 w/ CHF and cellulitis. As an outpatient she has developed progressive volume overload requiring the addition of Metolazone to her regular diuretic regimen. She responded well and lost 7 kg fluid weight in one week. She unfortunately developed progressive weakness and is now admitted with respiratory failure, severe hypercarbia and hypercalcemia. Preliminary evaluation of hypercalcemia reveals normal thyroid function, low PTH, normal vitamin D and alkaline phosphatase level. Serum RAMIRO level, serum free light chains, PTHrp and Vitamin A levels are pending. PMH - CKD w/ baseline creatinine 1.7 - 2.0, HTN, AODM, BMI > 50, COPD (home O2 at 3 L / min ATC), lung nodule, RA of hands, cor pulmonale (Echo 11/14: LVEF 55 - 60%, mild LVH, RVSP 45, mild RV dilation and moderate TR) Recommendations HYPERCALCEMIA: -- Agree with stopping Metolazone -- Calcitonin and Zometa have already been given. Serum calcium is improved to 11.0 -- TSH, T4, alkaline phosphatase and vitamin D level are within normal limits. PTH is appropriately suppressed -- Await balance of hypercalcemia evaluation (serum free light chains, SIEP, PTHrp, serum RAMIRO level, Vitamin A level are pending) -- Continue IV loop diuretic GUNNAR: -- Resolved CKD: -- Baseline creatinine has been 1.7 - 2.0 PULM: -- Obesity hypoventilation syndrome -- Presented to hospital w/ severe hypercapnia -- ABG shows respiratory acidosis w/ partial metabolic compensation. Patient has persistent severe hypercapnia -- CXR films reviewed today. Vascular congestion is unchanged. Patient has possible right basilar infiltrate -- Pulmonolgy consultation reviewed. Agree with recommendation to limit sedatives and narcotic analgesics ID: -- CXR w/ possible right basilar infiltrate -- On Ceftriaxone and Doxycycline -- Urine culture + for E. Coli sensitive to Ceftriaxone
[2016-06-17 10:32] LABS: FREE KAPPA 570.8 MG/L (3.3-19.4); FREE KAPPA/LAMBDA RATIO 30.85 (0.26-1.65); FREE LAMBDA 18.5 MG/L (5.7-26.3)
--- NOTE | 2016-06-17 11:18 | Progress Note ---
Subjective Date of Service: Jun 17, 2016. Subjective Pt evaluation today including: conversation w/ patient Pt is doing much better today. She states she is still SOB, but not like prior. No chest pain. She is tolerating liquids without issue and is hungry. Pt denies fever, abd pain, n/v/c/d, LE pain or swelling. ROS as noted above, otherwise neg. Problem List Medical Problems: (1) Anasarca Status: Acute (2) Bilateral cellulitis of lower leg Status: Acute (3) Bilateral lower leg cellulitis Status: Acute (4) Change in mental status Status: Acute (5) Chronic renal failure Status: Acute (6) CO2 retention Status: Acute (7) Dyspnea on exertion Status: Acute (8) Fall Status: Acute (9) Fever Status: Acute (10) Fever Status: Acute (11) Hypercarbia Status: Acute (12) Hypoxemia Status: Acute (13) Hypoxia Status: Acute (14) Respiratory failure Status: Acute (15) Weakness Status: Acute (16) Wrist pain Status: Acute Objective Vital Signs Date Time Temp Pulse Resp B/P Pulse Ox O2 Delivery O2 Flow Rate FiO2 06/17/16 08:08 88 18 93 Nasal Cannula 5.0 06/17/16 08:00 92 Nasal Cannula 5.0 06/17/16 07:41 36.7 82 22 123/73 92 BiPAP 06/17/16 06:09 84 152/80 06/17/16 04:00 91 BiPAP 5.0 06/17/16 02:52 36.8 91 22 162/73 94 BiPAP 5.0 06/17/16 00:08 81 157/74 06/17/16 00:00 91 BiPAP 5.0 06/16/16 23:43 36.8 79 22 157/74 90 BiPAP 4.0 06/16/16 20:00 BiPAP 5.0 06/16/16 19:33 82 18 90 BiPAP/CPAP 5.0 06/16/16 18:58 37.0 70 20 127/72 88 BiPAP 06/16/16 18:08 82 146/73 06/16/16 16:12 36.9 81 18 146/73 90 BiPAP 06/16/16 16:00 BiPAP 5.0 06/16/16 12:00 Venturi Mask 50 06/16/16 11:29 36.3 71 20 148/75 91 Venturi Mask 50 06/16/16 11:28 71 148/75 Physical Exam General Appearance: no apparent distress, + obese Respiratory/Chest: no respiratory distress, + decreased breath sounds ( improving) Cardiovascular: regular rate, rhythm, + normal peripheral pulses Abdomen: non tender, soft, + distended Extremities: non-tender, no pedal edema 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: alert, oriented x 3 Skin: normal color, warm/dry Laboratory Results Last 24 Hours Test 06/16/16 11:29 06/16/16 11:34 06/16/16 15:06 06/16/16 16:23 Bedside Glucose 261 mg/dl 279 mg/dl Venous Blood pH 7.36 Venous Blood Partial Pressure CO2 75 mmHg Venous Blood Partial Pressure O2 26 mmHg Venous Blood HCO3 41 mmol/L Venous Blood Oxygen Saturation < 60.0 % Venous Blood Base Excess 13.0 mmol/L Sodium Level 138 mmol/L Potassium Level 3.6 mmol/L Chloride Level 95 mmol/L Carbon Dioxide Level 40 mmol/L Anion Gap 3.0 mmol/L Blood Urea Nitrogen 77 mg/dl Creatinine 2.00 mg/dl Est Creatinine Clear Calc Drug Dose 42.4 ml/min Estimated GFR () 30.2 Estimated GFR (Non- 26.1 BUN/Creatinine Ratio 38.4 Random Glucose 264 mg/dl Calcium Level 11.1 mg/dl Ionized Calcium 1.39 mmol/l Magnesium Level 1.6 mg/dl Test 06/16/16 19:51 06/16/16 23:47 06/17/16 03:41 06/17/16 04:02 Bedside Glucose 243 mg/dl 221 mg/dl 197 mg/dl 210 mg/dl Test 06/17/16 05:15 06/17/16 07:33 06/17/16 08:06 06/17/16 08:30 Bedside Glucose 203 mg/dl 197 mg/dl White Blood Count 11.15 K/uL Red Blood Count 3.38 M/uL Hemoglobin 10.6 g/dL Hematocrit 33.0 % Mean Corpuscular Volume 97.6 fL Mean Corpuscular Hemoglobin 31.4 pg Mean Corpuscular Hemoglobin Concent 32.1 g/dl Platelet Count 201 K/uL Mean Platelet Volume 9.9 fL Neutrophils (%) (Auto) 85.0 % Lymphocytes (%) (Auto) 8.0 % Monocytes (%) (Auto) 6.1 % Eosinophils (%) (Auto) 0.4 % Basophils (%) (Auto) 0.1 % Neutrophils # (Auto) 9.47 K/uL Lymphocytes # (Auto) 0.89 K/uL Monocytes # (Auto) 0.68 K/uL Eosinophils # (Auto) 0.05 K/uL Basophils # (Auto) 0.01 K/uL RDW Standard Deviation 66.9 fL RDW Coefficient of Variation 18.7 % Immature Granulocyte % (Auto) 0.4 % Immature Granulocyte # (Auto) 0.05 K/uL Nucleated RBC Absolute Count (auto) 0.08 K/uL Nucleated Red Blood Cells % 0.7 % Sodium Level 139 mmol/L Potassium Level 3.5 mmol/L Chloride Level 95 mmol/L Carbon Dioxide Level 42 mmol/L Anion Gap 4.0 mmol/L Blood Urea Nitrogen 80 mg/dl Creatinine 2.00 mg/dl Est Creatinine Clear Calc Drug Dose 41.9 ml/min Estimated GFR () 30.2 Estimated GFR (Non- 26.1 BUN/Creatinine Ratio 40.0 Random Glucose 179 mg/dl Calcium Level 11.0 mg/dl Phosphorus Level 1.9 mg/dl Magnesium Level 1.8 mg/dl Assessment and Plan 60-year-old female with a history of morbid obesity, COPD, chronic diastolic heart failure presents emergency department with altered mental status and frequent falls. Found to be in hypercapnic respiratory failure with an elevated calcium Metabolic encephalopathy likely multifactorial, carbon dioxide retention, acute on chronic kidney failure Acute on chronic hypercapnic respiratory failure/morbid obesity hypoventilation syndrome-only mild improvement. ?Hypercarbic narcosis causing pt to be so drowsy Improved mentation with limited narcotics also -pulmonary following Hypercalcemia-calcium trending down. Etiology unknown ?? sarcoidosis ?? Pt with hyperCa and depressed PTH, renal failure and anemia Improved with steroids SPEP and RAMIRO levels pending -Nephrology following. Labs still pending. -Calcitonin and Zometa given -Continue Lasix as per nephrology -IV fluids discontinued Acute on chronic diastolic heart failure -Repeat chest x-ray today Escherichia coli UTI, and bilateral lower extremity mild cellulitis on doxycycline at home Begin ceftriaxone 1 g IV daily for a total of 7 days COPD-no significant wheezing on exam -Continue Spiriva and Advair -Home dose of prednisone 15 mg po daily changed to stress dose steroids. -Initially on hydrocortisone 100 mg IV q 8 hr--> decreased to 50 mg IV q 8 hr. continue her current dose diabetes mellitus -Pharmacy managing Acute on chronic renal failure-creatinine at baseline -Nephrology following Acute back pain -dilaudid 1 mg IV q 4 h x 3 doses DVT prophylaxis -Heparin 5000 u subQ tid -TEDS, SCDs CODE STATUS Discussed with patient's , okay CPR shock but DO NOT INTUBATE Continued [facility] stay due to: multiple IV medications needed Discharge planning: home
[2016-06-17] MEDS: PANTOprazole INJ 40 MG in SYRINGE 0 ML IV SCH (11:20)
--- NOTE | 2016-06-17 12:25 | Pulmonology Progress Note ---
Pulmonary Progress Note Date of Service Jun 17, 2016. Attending Dr. Nesbitt Subjective Feeling improved today, reports less dyspnea. Denies wheeze. Finding nebulizers helpful. Denies any difficulty tolerating her home Trilogy. Energy improved. NO fevers or chest pain. Appetite in-tact. Objective 60-yo female admitted to [facility] 06/14/16 with metabolic encephalopathy. PMHx includes: Morbid obesity, Severe sleep apnea/OHV on HAND TUFTER trilogy, O2- dependence: 3LPM, DM II, h/o cellulitis, Venous insufficiency, pulmonary nodules (stable) and recent admission with CHF and cellulitis. Former tobacco: 70-pack year, quit 2009. Patient presented to the ER 06/14/16 with h/o falls and lethargy. W/U consistent with partially compensated respiratory acidosis requiring NIV, mild pulmonary vascular congestion with right sided pulmonary infiltrate, profound hypercalcemia, and e.coli UTI. Today: - Sleeping on Trilogy NIV + 5LPM - 5LPM while awake via NC: 91-93% O2 - Afebrile, hypertensive - Wt: 145.5kg - CO2: 42, - WBC/Hgb/Hct/Plts: 11.15/10.6/33/201 - VBG from 06/16 with improvement in CO2 from 90s to 75 - Day s#4 doxycycline and day # 2 ceftriaxone Physical Exam: Constitutional: Chronically ill appearing morbidly obese female sitting in chair at bedside. No acute distress Head: + facial symmetry - receiving nebulizer with mask Respiratory: Non-labored respirations. Diminished BS secondary to body habitus, no wheeze, rales or rhonchi appreciated CV: RRR, no MRG. Warm peripherally : fernandez draining clear yellow urine MSK/Extremities: marked venous stasis changes and what appears to be chronic edema bilaterally. Neurologic: Alert, answering questions and following commands appropriately. Assessment & Plan 1. Obesity hypoventilation syndrome: - Continue HAND TUFTER trilogy -CO2 improved significantly on VBG 06/16 - Elevate HOB 30-degrees - Volume optimization as per nephrology 2. Right sided infiltrate: - 10-day course doxycycline - clinically improving on this course no need to broaden at this time - Repeat CXR in 6-weeks - Continue Bronchodilators Q6-hours and wean steroid to PO- 40mg in the next 1- 2 days Data Medications: Current Inpatient Medications Medications (Trade) Dose Ordered Sig/Duyen Route Start Time Stop Time Status Last Admin Dose Admin Acetaminophen (Tylenol Tab) 650 mg Q4H PRN PO 06/14/16 14:00 07/14/16 13:59 06/15/16 13:46 650 MG Ondansetron HCl (Zofran Inj) 4 mg Q6H PRN IV 06/14/16 14:00 07/14/16 13:59 Insulin Aspart (novoLOG ASPART) SLIDING SCALE G... Q4 SC 06/14/16 16:00 07/14/16 15:59 06/17/16 08:26 8 UNITS Atorvastatin Calcium (Lipitor Tab) 40 mg DAILY PO 06/15/16 09:00 07/15/16 08:59 06/17/16 08:22 40 MG Salmeterol Xinafoate/ Fluticasone (Advair Diskus 500/50 Inh) 1 puff BID INH 06/14/16 21:00 07/14/16 20:59 06/17/16 08:20 1 PUFF Metoprolol Succinate (Toprol Xl Tab) 150 mg DAILY PO 06/15/16 09:00 07/15/16 08:59 Future Hold Prednisone (PredniSONE TAB) 15 mg QAM PO 06/15/16 09:00 07/15/16 08:59 Future Hold 06/16/16 08:40 15 MG Pregabalin (Lyrica Cap) 150 mg TID PO 06/14/16 14:00 07/14/16 13:59 06/17/16 08:28 150 MG Verapamil HCl (Calan-Sr Tab) 240 mg DAILY PO 06/15/16 09:00 07/15/16 08:59 06/17/16 08:22 240 MG Insulin Glargine (Lantus Vial) BID SC 06/14/16 21:00 07/14/16 20:59 06/17/16 08:27 60 UNIT Metoprolol Tartrate (Lopressor Iv) 5 mg Q6 IV. 06/14/16 18:00 07/14/16 17:59 06/17/16 11:21 5 MG Hydralazine HCl 10 mg 10 mg Q6H PRN IV. 06/14/16 14:00 07/14/16 13:59 Pantoprazole Sodium 40 mg/ Syringe 10 ml @ 5 mls/min DAILY@11 IV 06/15/16 11:00 07/15/16 10:59 06/17/16 11:20 5 MLS/MIN Doxycycline Hyclate/Dextrose (Vibramycin IV/ D5 100ml) 110 ml @ 50 mls/hr BID IV 06/14/16 21:00 06/24/16 20:59 06/17/16 08:28 50 MLS/HR Heparin Sodium (Porcine) (Heparin Sq 5000 Unit/0.5ml) 5,000 unit Q8 SQ 06/14/16 22:00 07/14/16 21:59 06/17/16 06:18 5,000 UNIT Miscellaneous Information (Consult Glycemic Management Pharmacy) 1 ea UD PRN N/A 06/14/16 15:34 07/14/16 15:33 Nystatin (Mycostatin Oint) 1 appln TID EXT 06/14/16 21:00 07/14/16 20:59 06/17/16 08:23 1 APPLN Tiotropium [place] (Spiriva Handihaler Inhaler) 1 puff DAILY INH 06/15/16 09:00 07/15/16 08:59 06/17/16 08:21 1 PUFF Glucose (Glucose 40% Gel) 15-30 GRAMS 15 GRAMS... UD PRN PO 06/14/16 17:00 07/14/16 16:59 Glucose (Glucose Chew Tab) 4-8 Tablets 4 Tabl... UD PRN PO 06/14/16 17:00 07/14/16 16:59 Dextrose (Dextrose 50% 50ML Syringe) 25-50ML OF 50% DW IV FOR... UD PRN IV 06/14/16 17:00 07/14/16 16:59 Glucagon (Glucagon Inj) 1 mg UD PRN SQ 06/14/16 17:00 07/14/16 16:59 Acetaminophen/ Hydrocodone Bitart prn TID PRN PO 06/15/16 09:45 06/29/16 09:44 06/16/16 17:16 1 TAB Furosemide 40 mg/ Syringe 4 ml @ 4 mls/min DAILY IV 06/16/16 09:00 07/16/16 08:59 06/17/16 08:22 4 MLS/MIN Hydrocortisone Sodium Succinate/ Syringe (Solu-Cortef IV/ Syringe) 1 ml @ 4 mls/min Q8 IV 06/15/16 15:00 07/15/16 13:59 06/17/16 06:09 4 MLS/MIN Hydromorphone HCl 1 mg 1 mg Q4H PRN IV 06/16/16 12:00 06/30/16 11:59 06/16/16 21:11 1 MG Ceftriaxone Sodium/Dextrose (Rocephin Inj/ Dextrose Add-[place] 50ML) 50 ml @ 100 mls/hr DAILY@1400 IV 06/16/16 14:00 06/26/16 13:59 06/16/16 13:26 100 MLS/HR Albuterol/ Ipratropium (Duoneb) 3 ml QIDR INH 06/16/16 16:00 07/16/16 15:59 06/17/16 08:08 3 ML Albuterol/ Ipratropium (Duoneb) 3 ml Q2H PRN INH 06/16/16 14:45 07/16/16 14:44 I & O: 24-Hour Column 06/17/16 08:00 Intake Total 1195 ml Output Total 1950 ml Balance -755 ml Vital Signs: Date Time Temp Pulse Resp B/P Pulse Ox O2 Delivery O2 Flow Rate FiO2 06/17/16 11:21 78 123/73 06/17/16 08:08 88 18 93 Nasal Cannula 5.0 06/17/16 08:00 92 Nasal Cannula 5.0 06/17/16 07:41 36.7 82 22 123/73 92 BiPAP 06/17/16 06:09 84 152/80 06/17/16 04:00 91 BiPAP 5.0 06/17/16 02:52 36.8 91 22 162/73 94 BiPAP 5.0 06/17/16 00:08 81 157/74 06/17/16 00:00 91 BiPAP 5.0 06/16/16 23:43 36.8 79 22 157/74 90 BiPAP 4.0 06/16/16 20:00 BiPAP 5.0 06/16/16 19:33 82 18 90 BiPAP/CPAP 5.0 06/16/16 18:58 37.0 70 20 127/72 88 BiPAP 06/16/16 18:08 82 146/73 06/16/16 16:12 36.9 81 18 146/73 90 BiPAP 06/16/16 16:00 BiPAP 5.0 Laboratory Results: Last 24 Hours Test 06/16/16 15:06 06/16/16 16:23 06/16/16 19:51 06/16/16 23:47 Sodium Level 138 mmol/L Potassium Level 3.6 mmol/L Chloride Level 95 mmol/L Carbon Dioxide Level 40 mmol/L Anion Gap 3.0 mmol/L Blood Urea Nitrogen 77 mg/dl Creatinine 2.00 mg/dl Est Creatinine Clear Calc Drug Dose 42.4 ml/min Estimated GFR () 30.2 Estimated GFR (Non- 26.1 BUN/Creatinine Ratio 38.4 Random Glucose 264 mg/dl Calcium Level 11.1 mg/dl Ionized Calcium 1.39 mmol/l Magnesium Level 1.6 mg/dl Bedside Glucose 279 mg/dl 243 mg/dl 221 mg/dl Test 06/17/16 03:41 06/17/16 04:02 06/17/16 05:15 06/17/16 07:33 Bedside Glucose 197 mg/dl 210 mg/dl 203 mg/dl White Blood Count 11.15 K/uL Red Blood Count 3.38 M/uL Hemoglobin 10.6 g/dL Hematocrit 33.0 % Mean Corpuscular Volume 97.6 fL Mean Corpuscular Hemoglobin 31.4 pg Mean Corpuscular Hemoglobin Concent 32.1 g/dl Platelet Count 201 K/uL Mean Platelet Volume 9.9 fL Neutrophils (%) (Auto) 85.0 % Lymphocytes (%) (Auto) 8.0 % Monocytes (%) (Auto) 6.1 % Eosinophils (%) (Auto) 0.4 % Basophils (%) (Auto) 0.1 % Neutrophils # (Auto) 9.47 K/uL Lymphocytes # (Auto) 0.89 K/uL Monocytes # (Auto) 0.68 K/uL Eosinophils # (Auto) 0.05 K/uL Basophils # (Auto) 0.01 K/uL RDW Standard Deviation 66.9 fL RDW Coefficient of Variation 18.7 % Immature Granulocyte % (Auto) 0.4 % Immature Granulocyte # (Auto) 0.05 K/uL Nucleated RBC Absolute Count (auto) 0.08 K/uL Nucleated Red Blood Cells % 0.7 % Sodium Level 139 mmol/L Potassium Level 3.5 mmol/L Chloride Level 95 mmol/L Carbon Dioxide Level 42 mmol/L Anion Gap 4.0 mmol/L Blood Urea Nitrogen 80 mg/dl Creatinine 2.00 mg/dl Est Creatinine Clear Calc Drug Dose 41.9 ml/min Estimated GFR () 30.2 Estimated GFR (Non- 26.1 BUN/Creatinine Ratio 40.0 Random Glucose 179 mg/dl Calcium Level 11.0 mg/dl Phosphorus Level 1.9 mg/dl Magnesium Level 1.8 mg/dl Test 06/17/16 08:06 06/17/16 08:30 06/17/16 11:31 Bedside Glucose 197 mg/dl 209 mg/dl
--- NOTE | 2016-06-17 12:48 | Pharmacy Progress Note ---
Glycemic Control: Progress Nt Date of Service Jun 17, 2016. Scope Glycemic Pharmacist consulted by Maegan Patel PA-C on 06/14/16 for glycemic control and to write orders per [facility], located within [facility] inpatient glycemic control protocol. Objective Accuchecks BSG (last 24hrs): Test 06/16/16 15:06 06/16/16 16:23 06/16/16 19:51 06/16/16 23:47 Random Glucose 264 mg/dl (70-99) Bedside Glucose 279 mg/dl (70-90) 243 mg/dl (70-90) 221 mg/dl (70-90) Test 06/17/16 03:41 06/17/16 04:02 06/17/16 05:15 06/17/16 07:33 Bedside Glucose 197 mg/dl (70-90) 210 mg/dl (70-90) 203 mg/dl (70-90) Random Glucose 179 mg/dl (70-99) Test 06/17/16 08:06 06/17/16 11:31 Bedside Glucose 197 mg/dl (70-90) 209 mg/dl (70-90) Laboratory Data (last 24hrs) Test 06/16/16 15:06 06/17/16 07:33 Anion Gap 3.0 mmol/L 4.0 mmol/L BUN/Creatinine Ratio 38.4 40.0 Blood Urea Nitrogen 77 mg/dl 80 mg/dl Creatinine 2.00 mg/dl 2.00 mg/dl Potassium Level 3.6 mmol/L 3.5 mmol/L Sodium Level 138 mmol/L 139 mmol/L White Blood Count 11.15 K/uL Red Blood Count 3.38 M/uL Hemoglobin 10.6 g/dL Hematocrit 33.0 % Mean Corpuscular Volume 97.6 fL Mean Corpuscular Hemoglobin 31.4 pg Mean Corpuscular Hemoglobin Concent 32.1 g/dl Platelet Count 201 K/uL Mean Platelet Volume 9.9 fL Neutrophils (%) (Auto) 85.0 % Lymphocytes (%) (Auto) 8.0 % Monocytes (%) (Auto) 6.1 % Eosinophils (%) (Auto) 0.4 % Basophils (%) (Auto) 0.1 % Neutrophils # (Auto) 9.47 K/uL Lymphocytes # (Auto) 0.89 K/uL Monocytes # (Auto) 0.68 K/uL Eosinophils # (Auto) 0.05 K/uL Basophils # (Auto) 0.01 K/uL Recent Pertinent Medications Outpatient Anti-diabetic Regimen: * Toujeo 70 units TID plus Novolog 50 units with breakfast, 50 units with lunch , 90 units with dinner, and 40 units at bedtime (confirmed with [employer] record) * A1c = 6.3 % 05/20/2016 Risk Factors for Insulin Resistance: * Steroids: hydrocortisone 50 mg IV q8 hours * Infection: chronic cellulitis currently on IV doxycycline * Diet: NPO Assessment & Plan ASSESSMENT: * ADA & AACE recommend a goal blood sugar range 140-180 mg/dl for the majority of critically ill & non-critically ill patients. However, more stringent targets may be selected in individual cases. * 60 y/o F admitted with a fall and hypercarbic respiratory failure. She is well -known to the glycemic control service. The patient is well controlled on her home regimen. HOWEVER, according to previous information, it is necessary to reduce the patient's insulin dosing. * BSGs slightly improved today following titration of basal insulin yesterday. Patient required 199 units over the past 24 hours (this reflects basal requirements only per patient is NPO). Will titrate further today to improve fasting BSG. * Diet is to be advanced to liquid diet this afternoon. Patient has required around 250 units of insulin per day during recent past admission when on an oral diet. No change in hydrocortisone IV. PLAN FOR INPATIENT GLYCEMIC CONTROL: * Increased basal insulin to Lantus 70 units SQ BID * Change correctional Insulin with NOVOLOG to ACHS with 00 and 04 AccuChek * Goal Range: Low 120 mg/dL - High 160 mg/dL * Correction Factor: 5 mg/dL/unit * Nutritional / Prandial insulin per carb ratio of 1 unit per 2 grams CHO consumed RECOMMENDATIONS FOR DISCHARGE: * Patient has adequate out patient control evidenced by A1c of 6.3 % (drawn 05/20) * Continue outpatient insulin regimen; * Toujeo 70 units SQ TID * Novolog 50 units with breakfast and lunch, 90 units with dinner, and 40 units HS * Please note that the plan above was derived based on current level of insulin resistance and hospital stress. These recommendations are appropriate for inpatient admission only. Plan of care upon discharge will need to be reassessed to avoid potential outpatient hypo/hyperglycemia. Thank you.
[2016-06-17] MEDS: HYDROCODONE/ACETAMOPHEN 5/325MG TAB PO PRN ×2 (13:04→21:59)
[2016-06-17] MEDS: CEFTRIAXONE SOD INJ 1 GM in DEXTROSE 5% ADD-VANTAGE 50ML 50 ML IV SCH (14:08)
[2016-06-18] VITALS (13 sets, daily range): BP systolic 154–182; BP diastolic 66–90; PULSE 76–95; TEMP 36.4–36.6; O2SAT 92–95
[2016-06-18] MEDS: INSULIN ASPART 100 UNITS/ML 3 ML PEN SC SCH ×5 (03:53→21:27)
[2016-06-18] MEDS: HYDROCORTISONE IV 50 MG in SYRINGE 0 ML IV SCH (05:47)
[2016-06-18] MEDS: METOPROLOL TARTRATE 1 MG/ML VIAL IV. SCH ×4 (05:47→23:20)
[2016-06-18] MEDS: HEPARIN SOD 5000 UNIT/0.5 ML CARP SQ SCH ×3 (05:50→21:26)
[2016-06-18 06:08] LABS: ALBUMIN % 39.82 %; ALPHA-2-GLOBULIN % 12.42 %; CREATININE UR 41 MG/DL (20-320); GAMMA GLOBULIN % 31.04 %
[2016-06-18 07:22] LABS: BUN/CREATININE RATIO 44.3 (10-20); CALCIUM 10.5 mg/dl (8.5-10.1); CREATININE 1.7 mg/dl (0.60-1.20); MAGNESIUM 1.9 mg/dl (1.8-2.4); PHOSPHORUS 2.3 mg/dl (2.5-4.9); POTASSIUM 3.1 mmol/L (3.5-5.1)
[2016-06-18 07:35] LABS: BASO % 0.5 %; BASO ABS # 0.04 K/uL (0-0.2); COMPLETE YES; EOS % 0.8 %; HEMATOCRIT 31.7 % (37-47); IG% 1.3 %; LYMPH % 3.1 %; LYMPH ABS # 0.27 K/uL (1.2-3.4); MEAN CELL VOLUME 97.5 fL (80-100); MEAN CORPUSCULAR HEMOGLOBIN 31.7 pg (25-34); MEAN CORPUSCULAR HGB CONC 32.5 g/dl (32-36); MEAN PLATELET VOLUME 11.1 fL (7.4-10.4); MONO % 10.1 %; NEUT % 84.2 %; PLATELET COUNT 217 K/uL (130-400); PLT ESTIMATE NORMAL; RED BLOOD COUNT 3.25 M/uL (4.2-5.4); ROULEAUX 1+; WHITE BLOOD COUNT 8.73 K/uL (4.8-10.8)
[2016-06-18] MEDS: ALBUT/IPRATROP 3MG/0.5MG NEB 3 ML VIAL INH SCH ×4 (07:43→19:56)
[2016-06-18] MEDS: INSULIN GLARGINE SC SCH ×2 (08:48→20:19)
[2016-06-18] MEDS: FLUTICASONE/SALMETEROL (ADVAIR) 500/50 INH 14 PUFF INH SCH ×2 (08:49→20:03)
[2016-06-18] MEDS: NYSTATIN OINT 15 GM TUBE EXT SCH ×3 (08:49→20:03)
[2016-06-18] MEDS: DOXYCYCLINE IV 100 MG in DEXTROSE 5% 100ML 100 ML IV SCH (08:50)
[2016-06-18] MEDS: VERAPAMIL HCL 240 MG TABCR PO SCH (08:50)
[2016-06-18] MEDS: ATORVASTATIN 40 MG TAB PO SCH (08:50)
[2016-06-18] MEDS: TIOTROPIUM BROMIDE 5 PUFF/90 MCG INH INH SCH (08:51)
[2016-06-18] MEDS: FUROSEMIDE INJ 40 MG in SYRINGE 0 ML IV SCH (08:51)
[2016-06-18] MEDS: PREGABALIN 150 MG CAP PO SCH ×3 (08:53→20:06)
--- NOTE | 2016-06-18 09:18 | Nephrology Progress Note ---
Nephrology Progress Note Date of Service Jun 18, 2016. Chief Complaint Evaluation of hypercalcemia in this patient with advanced CKD, obesity hypoventilation syndrome and right sided heart failure Subjective Mrs. Gaytan was seen and examined in the PCU this morning. She is alert and breathing comfortably on O2 at 4 L / min NC. She denies any complications overnight. She reports brisk urine output in response to IV diuretic therapy. Review of Systems Constitutional: No fever Cardiovascular: No chest pain Respiratory: No dyspnea at rest Abdomen: No nausea, No pain, No vomiting Extremities: + leg edema A complete review of systems was performed. Pertinent positives are noted above. All other systems are negative. Vital Signs Last 8 Hrs Date Time Temp Pulse Resp B/P Pulse Ox O2 Delivery O2 Flow Rate FiO2 06/18/16 08:00 93 Nasal Cannula 4.0 Humidified Oxygen 06/18/16 07:43 92 18 92 Nasal Cannula 4.0 06/18/16 07:37 36.6 82 20 171/76 94 Nasal Cannula 3.0 06/18/16 05:47 89 166/73 06/18/16 04:00 95 Nasal Cannula 5.0 Humidified Oxygen 06/18/16 03:56 36.4 84 20 159/77 94 Nasal Cannula 5.0 Humidified Oxygen I & O 24-Hour Column 06/18/16 08:00 Intake Total 1838 ml Output Total 2125 ml Balance -287 ml Last Recorded Weight Weight (Kilograms): 145.400 Physical Exam General Appearance: no apparent distress Head: normocephalic, atraumatic Eyes: PERRL, EOMI Neck: no adenopathy Respiratory/Chest: lungs clear, no respiratory distress Cardiovascular: regular rate, rhythm, no murmur Abdomen/GI: normal bowel sounds, non tender, soft Genitourinary - Female: + pertinent finding (fernandez catheter draining clear yellow urine) Extremities/Musculoskelatal: no calf tenderness, + pedal edema (2+ pretibial edema with hemosiderin staining) Neurologic/Psych: alert, oriented x 3 Family History Cancer Diabetes mellitus Gallbladder disease Heart disease Lung disease Negative for CKD/ESRD Social History Smoking Status: Former smoker Alcohol Use: none Drug Use: none Marital Status: Housing Status: lives with family Occupation: unemployed . Lives with . Remote h/o tobacco use. Laboratory Results Past 24 Hours 06/18/16 06:15 Red Blood Count 3.25, Mean Corpuscular Volume 97.5, Mean Corpuscular Hemoglobin 31.7, Mean Corpuscular Hemoglobin Concent 32.5, Mean Platelet Volume 11.1, Neutrophils (%) (Auto) 84.2, Lymphocytes (%) (Auto) 3.1, Monocytes (%) (Auto) 10.1, Eosinophils (%) (Auto) 0.8, Basophils (%) (Auto) 0.5, Neutrophils # (Auto ) 7.36, Lymphocytes # (Auto) 0.27, Monocytes # (Auto) 0.88, Eosinophils # (Auto ) 0.07, Basophils # (Auto) 0.04 06/18/16 06:15 Test 06/17/16 11:31 06/17/16 16:12 06/17/16 20:14 06/17/16 23:43 Bedside Glucose 209 mg/dl (70-90) 245 mg/dl (70-90) 262 mg/dl (70-90) 205 mg/dl (70-90) Test 06/18/16 03:47 06/18/16 06:15 06/18/16 06:31 Bedside Glucose 157 mg/dl (70-90) 169 mg/dl (70-90) White Blood Count 8.73 K/uL (4.8-10.8) Red Blood Count 3.25 M/uL (4.2-5.4) Hemoglobin 10.3 g/dL (12.0-16.0) Hematocrit 31.7 % (37-47) Mean Corpuscular Volume 97.5 fL (80-100) Mean Corpuscular Hemoglobin 31.7 pg (25-34) Mean Corpuscular Hemoglobin Concent 32.5 g/dl (32-36) Platelet Count 217 K/uL (130-400) Mean Platelet Volume 11.1 fL (7.4-10.4) Neutrophils (%) (Auto) 84.2 % Lymphocytes (%) (Auto) 3.1 % Monocytes (%) (Auto) 10.1 % Eosinophils (%) (Auto) 0.8 % Basophils (%) (Auto) 0.5 % Neutrophils # (Auto) 7.36 K/uL (1.4-6.5) Lymphocytes # (Auto) 0.27 K/uL (1.2-3.4) Monocytes # (Auto) 0.88 K/uL (0.11-0.59) Eosinophils # (Auto) 0.07 K/uL (0-0.5) Basophils # (Auto) 0.04 K/uL (0-0.2) RDW Standard Deviation 68.3 fL (36.4-46.3) RDW Coefficient of Variation 19.0 % (11.5-14.5) Immature Granulocyte % (Auto) 1.3 % Immature Granulocyte # (Auto) 0.11 K/uL (0.00-0.02) Nucleated RBC Absolute Count (auto) 0.60 K/uL (0-0) Nucleated Red Blood Cells % 6.9 % Platelet Estimate NORMAL Rouleau 1+ Anion Gap 5.0 mmol/L (3-11) Est Creatinine Clear Calc Drug Dose 49.3 ml/min Estimated GFR () 36.8 Estimated GFR (Non- 31.8 BUN/Creatinine Ratio 44.3 (10-20) Calcium Level 10.5 mg/dl (8.5-10.1) Phosphorus Level 2.3 mg/dl (2.5-4.9) Magnesium Level 1.9 mg/dl (1.8-2.4) Allergies Coded Allergies: Daptomycin (Verified Allergy, Mild, HIVES, 06/14/16) itching Codeine (Verified Allergy, Unknown, unknown, 06/14/16) has tolerated morphine Iodine (Verified Allergy, Unknown, 06/14/16) Shellfish (Verified Allergy, Unknown, 06/14/16) Sulfamethoxazole w/Trimethoprim (Verified Allergy, Unknown, RASH, 06/14/16) Medications Current Inpatient Medications Medications (Trade) Dose Ordered Sig/Duyen Route Start Time Stop Time Status Last Admin Dose Admin Acetaminophen (Tylenol Tab) 650 mg Q4H PRN PO 06/14/16 14:00 07/14/16 13:59 06/15/16 13:46 650 MG Ondansetron HCl (Zofran Inj) 4 mg Q6H PRN IV 06/14/16 14:00 07/14/16 13:59 Atorvastatin Calcium (Lipitor Tab) 40 mg DAILY PO 06/15/16 09:00 07/15/16 08:59 06/18/16 08:50 40 MG Salmeterol Xinafoate/ Fluticasone (Advair Diskus 500/50 Inh) 1 puff BID INH 06/14/16 21:00 07/14/16 20:59 06/18/16 08:49 1 PUFF Metoprolol Succinate (Toprol Xl Tab) 150 mg DAILY PO 06/15/16 09:00 07/15/16 08:59 Future Hold Prednisone (PredniSONE TAB) 15 mg QAM PO 06/15/16 09:00 07/15/16 08:59 Future Hold 06/16/16 08:40 15 MG Pregabalin (Lyrica Cap) 150 mg TID PO 06/14/16 14:00 07/14/16 13:59 06/18/16 08:53 150 MG Verapamil HCl (Calan-Sr Tab) 240 mg DAILY PO 06/15/16 09:00 07/15/16 08:59 06/18/16 08:50 240 MG Metoprolol Tartrate (Lopressor Iv) 5 mg Q6 IV. 06/14/16 18:00 07/14/16 17:59 06/18/16 05:47 5 MG Hydralazine HCl 10 mg 10 mg Q6H PRN IV. 06/14/16 14:00 07/14/16 13:59 Pantoprazole Sodium 40 mg/ Syringe 10 ml @ 5 mls/min DAILY@11 IV 06/15/16 11:00 07/15/16 10:59 06/17/16 11:20 5 MLS/MIN Doxycycline Hyclate/Dextrose (Vibramycin IV/ D5 100ml) 110 ml @ 50 mls/hr BID IV 06/14/16 21:00 06/24/16 20:59 06/18/16 08:50 50 MLS/HR Heparin Sodium (Porcine) (Heparin Sq 5000 Unit/0.5ml) 5,000 unit Q8 SQ 06/14/16 22:00 07/14/16 21:59 06/18/16 05:50 5,000 UNIT Miscellaneous Information (Consult Glycemic Management Pharmacy) 1 ea UD PRN N/A 06/14/16 15:34 07/14/16 15:33 Nystatin (Mycostatin Oint) 1 appln TID EXT 06/14/16 21:00 07/14/16 20:59 06/18/16 08:49 1 APPLN Tiotropium [place] (Spiriva Handihaler Inhaler) 1 puff DAILY INH 06/15/16 09:00 07/15/16 08:59 06/18/16 08:51 1 PUFF Glucose (Glucose 40% Gel) 15-30 GRAMS 15 GRAMS... UD PRN PO 06/14/16 17:00 07/14/16 16:59 Glucose (Glucose Chew Tab) 4-8 Tablets 4 Tabl... UD PRN PO 06/14/16 17:00 07/14/16 16:59 Dextrose (Dextrose 50% 50ML Syringe) 25-50ML OF 50% DW IV FOR... UD PRN IV 06/14/16 17:00 07/14/16 16:59 Glucagon (Glucagon Inj) 1 mg UD PRN SQ 06/14/16 17:00 07/14/16 16:59 Acetaminophen/ Hydrocodone Bitart prn TID PRN PO 06/15/16 09:45 06/29/16 09:44 06/17/16 21:59 1 TAB Furosemide 40 mg/ Syringe 4 ml @ 4 mls/min DAILY IV 06/16/16 09:00 07/16/16 08:59 06/18/16 08:51 4 MLS/MIN Hydrocortisone Sodium Succinate/ Syringe (Solu-Cortef IV/ Syringe) 1 ml @ 4 mls/min Q8 IV 06/15/16 15:00 07/15/16 13:59 06/18/16 05:47 4 MLS/MIN Hydromorphone HCl 1 mg 1 mg Q4H PRN IV 06/16/16 12:00 06/30/16 11:59 06/16/16 21:11 1 MG Ceftriaxone Sodium/Dextrose (Rocephin Inj/ Dextrose Add-[place] 50ML) 50 ml @ 100 mls/hr DAILY@1400 IV 06/16/16 14:00 06/26/16 13:59 06/17/16 14:08 100 MLS/HR Albuterol/ Ipratropium (Duoneb) 3 ml QIDR INH 06/16/16 16:00 07/16/16 15:59 06/18/16 07:43 3 ML Albuterol/ Ipratropium (Duoneb) 3 ml Q2H PRN INH 06/16/16 14:45 07/16/16 14:44 Insulin Glargine (Lantus Vial) [address] 06/17/16 16:45 07/17/16 16:44 06/18/16 08:48 70 UNIT Insulin Aspart (novoLOG ASPART) SLIDING SCALE G... ACHS CT 06/17/16 16:15 07/17/16 16:14 06/18/16 08:47 35 UNITS Insulin Aspart (novoLOG ASPART) SLIDING SCALE G... 0000,0400 CT 06/18/16 00:00 07/18/16 00:00 06/17/16 23:50 9 UNITS Impression (1) Obesity hypoventilation syndrome (2) Respiratory failure with hypercapnia (3) CO2 narcosis (4) Hypercalcemia (5) Pulmonary nodules (6) Chronic kidney disease (CKD) stage G3b/A1, moderately decreased glomerular filtration rate (GFR) between 30-44 mL/min/1.73 square meter and albuminuria creatinine ratio less than 30 mg/g Patient admitted to the hospital for evaluation respiratory failure w/ CO2 narcosis and hypercalcemia. Her medical history is significant for stage III CKD (baseline creatinine 1.7 - 2.0), HTN, obesity (BMI 56) and obesity hypoventilation syndrome. In October 2014 she had an echocardiogram performed which revealed LVEF 55 - 60%, mild LVH, RVSP 45, mild RV dilation and moderate TR. She was hospitalized 05/16 w/ CHF and cellulitis. As an outpatient she has developed progressive volume overload requiring the addition of Metolazone to her regular diuretic regimen. She responded well and lost 7 kg fluid weight in one week. She unfortunately developed progressive weakness and is now admitted with respiratory failure, severe hypercarbia and hypercalcemia. Preliminary evaluation of hypercalcemia reveals normal thyroid function, low PTH, normal vitamin D and alkaline phosphatase level. Serum RAMIRO level, serum free light chains, PTHrp and Vitamin A levels are pending. PMH - CKD w/ baseline creatinine 1.7 - 2.0, HTN, AODM, BMI > 50, COPD (home O2 at 3 L / min ATC), lung nodule, RA of hands, cor pulmonale (Echo 11/14: LVEF 55 - 60%, mild LVH, RVSP 45, mild RV dilation and moderate TR) Recommendations HYPERCALCEMIA: -- Metolazone has been stopped -- Calcitonin and Zometa were given upon admission. Serum calcium is improved to 10.7 -- TSH, T4, alkaline phosphatase, vitamin D level, serum RAMIRO level are within normal limits. PTH is appropriately suppressed -- Await balance of hypercalcemia evaluation (PTHrp and Vitamin A level are pending) -- UEP c/w monoclonal protein. Serum free light chains is markedly elevated. Will request Oncology consultation to evaluate for multiple myeloma or other light chain malignancy -- Continue IV loop diuretic GUNNAR: -- Resolved CKD: -- Baseline creatinine has been 1.7 - 2.0 PULM: -- Obesity hypoventilation syndrome -- Presented to hospital w/ severe hypercapnia -- 06/17/16 Pulmonolgy recommendations reviewed. Continue CPAP. Patient is on Doxycycline and bronchodilators are being adjusted ID: -- CXR w/ possible right basilar infiltrate -- On Ceftriaxone and Doxycycline -- Urine culture + for E. Coli sensitive to Ceftriaxone
--- NOTE | 2016-06-18 11:39 | Pulmonology Progress Note ---
Pulmonary Progress Note Date of Service Jun 18, 2016. Attending Dr. Nesbitt Subjective Patient denies any increased cough, dyspnea or wheeze. Diuresing well. No chest pain. Wore Trilogy apx 3-4 hours last night. She states she typically will sleep on average 3hours/night in a recliner at home. Objective 60-yo female admitted to [facility] 06/14/16 with metabolic encephalopathy. PMHx includes: Morbid obesity, Severe sleep apnea/OHV on [employer] trilogy, O2- dependence: 3LPM, DM II, h/o cellulitis, Venous insufficiency, pulmonary nodules (stable) and recent admission with CHF and cellulitis. Former tobacco: 70-pack year, quit 2009. Patient presented to the ER 06/14/16 with h/o falls and lethargy. W/U consistent with partially compensated respiratory acidosis requiring NIV, mild pulmonary vascular congestion with right sided pulmonary infiltrate, profound hypercalcemia, and e.coli UTI. Today: - Slept w/Trilogy NIV + 5LPM x 3-4 hours - 5LPM while awake via NC: 91-93% O2 - Afebrile, hypertensive - WBC/Hgb/Hct/Plts: 8.73/10.3/31.7/217 - VBG from 06/16 with improvement in CO2 from 90s to 75 - Wt: 145.4kg, I:O: -775 Physical Exam: Constitutional: Chronically ill appearing morbidly obese female sitting in chair at bedside. No acute distress Head: + facial symmetry Respiratory: Non-labored respirations. Diminished BS secondary to body habitus, no wheeze, rales or rhonchi appreciated CV: RRR, no MRG. Warm peripherally MSK/Extremities: marked venous stasis changes and what appears to be chronic edema bilaterally. Neurologic: Alert, answering questions and following commands appropriately. Assessment & Plan 1. Obesity hypoventilation syndrome: - Continue [employer] trilogy - at least 4-hours/night - Volume optimization as per nephrology 2. Right sided infiltrate: - Repeat CXR in 6-weeks - Continue 10-days docyxycline, Bronchodilators and Advair Data Medications: Current Inpatient Medications Medications (Trade) Dose Ordered Sig/Duyen Route Start Time Stop Time Status Last Admin Dose Admin Acetaminophen (Tylenol Tab) 650 mg Q4H PRN PO 06/14/16 14:00 07/14/16 13:59 06/15/16 13:46 650 MG Ondansetron HCl (Zofran Inj) 4 mg Q6H PRN IV 06/14/16 14:00 07/14/16 13:59 Atorvastatin Calcium (Lipitor Tab) 40 mg DAILY PO 06/15/16 09:00 07/15/16 08:59 06/18/16 08:50 40 MG Salmeterol Xinafoate/ Fluticasone (Advair Diskus 500/50 Inh) 1 puff BID INH 06/14/16 21:00 07/14/16 20:59 06/18/16 08:49 1 PUFF Metoprolol Succinate (Toprol Xl Tab) 150 mg DAILY PO 06/15/16 09:00 07/15/16 08:59 Future Hold Prednisone (PredniSONE TAB) 15 mg QAM PO 06/15/16 09:00 07/15/16 08:59 Future Hold 06/16/16 08:40 15 MG Pregabalin (Lyrica Cap) 150 mg TID PO 06/14/16 14:00 07/14/16 13:59 06/18/16 08:53 150 MG Verapamil HCl (Calan-Sr Tab) 240 mg DAILY PO 06/15/16 09:00 07/15/16 08:59 06/18/16 08:50 240 MG Metoprolol Tartrate (Lopressor Iv) 5 mg Q6 IV. 06/14/16 18:00 07/14/16 17:59 06/18/16 05:47 5 MG Hydralazine HCl 10 mg 10 mg Q6H PRN IV. 06/14/16 14:00 07/14/16 13:59 Pantoprazole Sodium 40 mg/ Syringe 10 ml @ 5 mls/min DAILY@11 IV 06/15/16 11:00 07/15/16 10:59 06/17/16 11:20 5 MLS/MIN Doxycycline Hyclate/Dextrose (Vibramycin IV/ D5 100ml) 110 ml @ 50 mls/hr BID IV 06/14/16 21:00 06/24/16 20:59 06/18/16 08:50 50 MLS/HR Heparin Sodium (Porcine) (Heparin Sq 5000 Unit/0.5ml) 5,000 unit Q8 SQ 06/14/16 22:00 07/14/16 21:59 06/18/16 05:50 5,000 UNIT Miscellaneous Information (Consult Glycemic Management Pharmacy) 1 ea UD PRN N/A 06/14/16 15:34 07/14/16 15:33 Nystatin (Mycostatin Oint) 1 appln TID EXT 06/14/16 21:00 07/14/16 20:59 06/18/16 08:49 1 APPLN Tiotropium [place] (Spiriva Handihaler Inhaler) 1 puff DAILY INH 06/15/16 09:00 07/15/16 08:59 06/18/16 08:51 1 PUFF Glucose (Glucose 40% Gel) 15-30 GRAMS 15 GRAMS... UD PRN PO 06/14/16 17:00 07/14/16 16:59 Glucose (Glucose Chew Tab) 4-8 Tablets 4 Tabl... UD PRN PO 06/14/16 17:00 07/14/16 16:59 Dextrose (Dextrose 50% 50ML Syringe) 25-50ML OF 50% DW IV FOR... UD PRN IV 06/14/16 17:00 07/14/16 16:59 Glucagon (Glucagon Inj) 1 mg UD PRN SQ 06/14/16 17:00 07/14/16 16:59 Acetaminophen/ Hydrocodone Bitart prn TID PRN PO 06/15/16 09:45 06/29/16 09:44 06/17/16 21:59 1 TAB Furosemide 40 mg/ Syringe 4 ml @ 4 mls/min DAILY IV 06/16/16 09:00 07/16/16 08:59 06/18/16 08:51 4 MLS/MIN Hydrocortisone Sodium Succinate/ Syringe (Solu-Cortef IV/ Syringe) 1 ml @ 4 mls/min Q8 IV 06/15/16 15:00 07/15/16 13:59 06/18/16 05:47 4 MLS/MIN Hydromorphone HCl 1 mg 1 mg Q4H PRN IV 06/16/16 12:00 06/30/16 11:59 06/16/16 21:11 1 MG Ceftriaxone Sodium/Dextrose (Rocephin Inj/ Dextrose Add-[place] 50ML) 50 ml @ 100 mls/hr DAILY@1400 IV 06/16/16 14:00 06/26/16 13:59 06/17/16 14:08 100 MLS/HR Albuterol/ Ipratropium (Duoneb) 3 ml QIDR INH 06/16/16 16:00 07/16/16 15:59 06/18/16 07:43 3 ML Albuterol/ Ipratropium (Duoneb) 3 ml Q2H PRN INH 06/16/16 14:45 07/16/16 14:44 Insulin Glargine (Lantus Vial) 70 unit BID [place] 06/17/16 16:45 07/17/16 16:44 06/18/16 08:48 70 UNIT Insulin Aspart (novoLOG ASPART) SLIDING SCALE G... ACHS [place] 06/17/16 16:15 07/17/16 16:14 06/18/16 08:47 35 UNITS Insulin Aspart (novoLOG ASPART) SLIDING SCALE G... 0000,0400 [place] 06/18/16 00:00 07/18/16 00:00 06/17/16 23:50 9 UNITS I & O: 24-Hour Column 06/18/16 08:00 Intake Total 1838 ml Output Total 2125 ml Balance -287 ml Vital Signs: Date Time Temp Pulse Resp B/P Pulse Ox O2 Delivery O2 Flow Rate FiO2 06/18/16 11:21 36.4 92 20 175/77 92 Nasal Cannula 3.0 06/18/16 08:00 93 Nasal Cannula 4.0 Humidified Oxygen 06/18/16 07:43 92 18 92 Nasal Cannula 4.0 06/18/16 07:37 36.6 82 20 171/76 94 Nasal Cannula 3.0 06/18/16 05:47 89 166/73 06/18/16 04:00 95 Nasal Cannula 5.0 Humidified Oxygen 06/18/16 03:56 36.4 84 20 159/77 94 Nasal Cannula 5.0 Humidified Oxygen 06/18/16 00:00 92 Humidified Oxygen 5.0 BiPAP 06/17/16 23:47 84 156/71 06/17/16 23:31 36.9 86 21 156/71 92 BiPAP 5.0 06/17/16 20:50 90 18 90 Nasal Cannula 4.0 06/17/16 20:00 Nasal Cannula 4.0 06/17/16 19:39 36.7 89 20 159/56 90 Nasal Cannula 4.0 06/17/16 18:35 95 167/70 06/17/16 16:00 92 Nasal Cannula 4.0 06/17/16 15:51 90 18 90 Nasal Cannula 4.0 06/17/16 15:19 36.8 93 20 167/70 93 Nasal Cannula 4.0 06/17/16 12:18 36.3 91 20 146/71 94 Nasal Cannula 5.0 06/17/16 12:00 92 Nasal Cannula 5.0 06/17/16 11:30 93 18 93 Nasal Cannula 4.0 Laboratory Results: Last 24 Hours Test 06/17/16 11:31 06/17/16 16:12 06/17/16 20:14 06/17/16 23:43 Bedside Glucose 209 mg/dl 245 mg/dl 262 mg/dl 205 mg/dl Test 06/18/16 03:47 06/18/16 06:15 06/18/16 06:31 06/18/16 11:05 Bedside Glucose 157 mg/dl 169 mg/dl 248 mg/dl White Blood Count 8.73 K/uL Red Blood Count 3.25 M/uL Hemoglobin 10.3 g/dL Hematocrit 31.7 % Mean Corpuscular Volume 97.5 fL Mean Corpuscular Hemoglobin 31.7 pg Mean Corpuscular Hemoglobin Concent 32.5 g/dl Platelet Count 217 K/uL Mean Platelet Volume 11.1 fL Neutrophils (%) (Auto) 84.2 % Lymphocytes (%) (Auto) 3.1 % Monocytes (%) (Auto) 10.1 % Eosinophils (%) (Auto) 0.8 % Basophils (%) (Auto) 0.5 % Neutrophils # (Auto) 7.36 K/uL Lymphocytes # (Auto) 0.27 K/uL Monocytes # (Auto) 0.88 K/uL Eosinophils # (Auto) 0.07 K/uL Basophils # (Auto) 0.04 K/uL RDW Standard Deviation 68.3 fL RDW Coefficient of Variation 19.0 % Immature Granulocyte % (Auto) 1.3 % Immature Granulocyte # (Auto) 0.11 K/uL Nucleated RBC Absolute Count (auto) 0.60 K/uL Nucleated Red Blood Cells % 6.9 % Platelet Estimate NORMAL Rouleau 1+ Sodium Level 137 mmol/L Potassium Level 3.1 mmol/L Chloride Level 94 mmol/L Carbon Dioxide Level 38 mmol/L Anion Gap 5.0 mmol/L Blood Urea Nitrogen 75 mg/dl Creatinine 1.70 mg/dl Est Creatinine Clear Calc Drug Dose 49.3 ml/min Estimated GFR () 36.8 Estimated GFR (Non- 31.8 BUN/Creatinine Ratio 44.3 Random Glucose 166 mg/dl Calcium Level 10.5 mg/dl Phosphorus Level 2.3 mg/dl Magnesium Level 1.9 mg/dl
--- NOTE | 2016-06-18 12:28 | Hospitalist Progress Note ---
Hospitalist Progress Note Date of Service Jun 18, 2016. (Maegan Patel PA-C) 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 w/ oracle application consultant, review of inpatient medication list Reports breathing is improved today. Tremor is also improved. She is still having difficulty getting up and using the bedside commode. She denies any cough or fever. Denies any chest pain. Additional Comments: 6 system review negative. Please see pertinent positives in the history of present illness section. (Maegan Patel PA-C) Objective Vital Signs Date Time Temp Pulse Resp B/P Pulse Ox O2 Delivery O2 Flow Rate FiO2 06/18/16 11:21 36.4 92 20 175/77 92 Nasal Cannula 3.0 06/18/16 08:00 93 Nasal Cannula 4.0 Humidified Oxygen 06/18/16 07:43 92 18 92 Nasal Cannula 4.0 06/18/16 07:37 36.6 82 20 171/76 94 Nasal Cannula 3.0 06/18/16 05:47 89 166/73 06/18/16 04:00 95 Nasal Cannula 5.0 Humidified Oxygen 06/18/16 03:56 36.4 84 20 159/77 94 Nasal Cannula 5.0 Humidified Oxygen 06/18/16 00:00 92 Humidified Oxygen 5.0 BiPAP 06/17/16 23:47 84 156/71 06/17/16 23:31 36.9 86 21 156/71 92 BiPAP 5.0 06/17/16 20:50 90 18 90 Nasal Cannula 4.0 06/17/16 20:00 Nasal Cannula 4.0 06/17/16 19:39 36.7 89 20 159/56 90 Nasal Cannula 4.0 06/17/16 18:35 95 167/70 06/17/16 16:00 92 Nasal Cannula 4.0 06/17/16 15:51 90 18 90 Nasal Cannula 4.0 06/17/16 15:19 36.8 93 20 167/70 93 Nasal Cannula 4.0 06/17/16 12:18 36.3 91 20 146/71 94 Nasal Cannula 5.0 (Maegan Patel PA-C) Physical Exam General Appearance: + mild distress (mild respiratory distress. Much more alert today.) Eyes: EOMI ENT: + pertinent finding (oral mucosa slightly dry.) Neck: no JVD Respiratory/Chest: + pertinent finding (mildly diminished breath sounds at the bases bilaterally. No wheezing or rhonchi. No rales.) Cardiovascular: regular rate, rhythm Abdomen: normal bowel sounds, soft, + pertinent finding (less distended today.) Extremities: + pertinent finding (pitting edema in the lower extremities with erythema bilaterally. Overall appearance is improved.) 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: no motor/sensory deficits, oriented x 3 Skin: warm/dry (Maegan Patel PA-C) Laboratory Results 06/18/16 06:15 Red Blood Count 3.25, Mean Corpuscular Volume 97.5, Mean Corpuscular Hemoglobin 31.7, Mean Corpuscular Hemoglobin Concent 32.5, Mean Platelet Volume 11.1, Neutrophils (%) (Auto) 84.2, Lymphocytes (%) (Auto) 3.1, Monocytes (%) (Auto) 10.1, Eosinophils (%) (Auto) 0.8, Basophils (%) (Auto) 0.5, Neutrophils # (Auto ) 7.36, Lymphocytes # (Auto) 0.27, Monocytes # (Auto) 0.88, Eosinophils # (Auto ) 0.07, Basophils # (Auto) 0.04 06/18/16 06:15 Test 06/18/16 06:15 06/18/16 11:05 White Blood Count 8.73 K/uL (4.8-10.8) Red Blood Count 3.25 M/uL (4.2-5.4) Hemoglobin 10.3 g/dL (12.0-16.0) Hematocrit 31.7 % (37-47) Mean Corpuscular Volume 97.5 fL (80-100) Mean Corpuscular Hemoglobin 31.7 pg (25-34) Mean Corpuscular Hemoglobin Concent 32.5 g/dl (32-36) Platelet Count 217 K/uL (130-400) Mean Platelet Volume 11.1 fL (7.4-10.4) Neutrophils (%) (Auto) 84.2 % Lymphocytes (%) (Auto) 3.1 % Monocytes (%) (Auto) 10.1 % Eosinophils (%) (Auto) 0.8 % Basophils (%) (Auto) 0.5 % Neutrophils # (Auto) 7.36 K/uL (1.4-6.5) Lymphocytes # (Auto) 0.27 K/uL (1.2-3.4) Monocytes # (Auto) 0.88 K/uL (0.11-0.59) Eosinophils # (Auto) 0.07 K/uL (0-0.5) Basophils # (Auto) 0.04 K/uL (0-0.2) RDW Standard Deviation 68.3 fL (36.4-46.3) RDW Coefficient of Variation 19.0 % (11.5-14.5) Immature Granulocyte % (Auto) 1.3 % Immature Granulocyte # (Auto) 0.11 K/uL (0.00-0.02) Nucleated RBC Absolute Count (auto) 0.60 K/uL (0-0) Nucleated Red Blood Cells % 6.9 % Platelet Estimate NORMAL Rouleau 1+ Anion Gap 5.0 mmol/L (3-11) Est Creatinine Clear Calc Drug Dose 49.3 ml/min Estimated GFR () 36.8 Estimated GFR (Non- 31.8 BUN/Creatinine Ratio 44.3 (10-20) Calcium Level 10.5 mg/dl (8.5-10.1) Phosphorus Level 2.3 mg/dl (2.5-4.9) Magnesium Level 1.9 mg/dl (1.8-2.4) Bedside Glucose 248 mg/dl (70-90) Last 24 Hours Test 06/17/16 16:12 06/17/16 20:14 06/17/16 23:43 06/18/16 03:47 Bedside Glucose 245 mg/dl 262 mg/dl 205 mg/dl 157 mg/dl Test 06/18/16 06:15 06/18/16 06:31 06/18/16 11:05 White Blood Count 8.73 K/uL Red Blood Count 3.25 M/uL Hemoglobin 10.3 g/dL Hematocrit 31.7 % Mean Corpuscular Volume 97.5 fL Mean Corpuscular Hemoglobin 31.7 pg Mean Corpuscular Hemoglobin Concent 32.5 g/dl Platelet Count 217 K/uL Mean Platelet Volume 11.1 fL Neutrophils (%) (Auto) 84.2 % Lymphocytes (%) (Auto) 3.1 % Monocytes (%) (Auto) 10.1 % Eosinophils (%) (Auto) 0.8 % Basophils (%) (Auto) 0.5 % Neutrophils # (Auto) 7.36 K/uL Lymphocytes # (Auto) 0.27 K/uL Monocytes # (Auto) 0.88 K/uL Eosinophils # (Auto) 0.07 K/uL Basophils # (Auto) 0.04 K/uL RDW Standard Deviation 68.3 fL RDW Coefficient of Variation 19.0 % Immature Granulocyte % (Auto) 1.3 % Immature Granulocyte # (Auto) 0.11 K/uL Nucleated RBC Absolute Count (auto) 0.60 K/uL Nucleated Red Blood Cells % 6.9 % Platelet Estimate NORMAL Rouleau 1+ Sodium Level 137 mmol/L Potassium Level 3.1 mmol/L Chloride Level 94 mmol/L Carbon Dioxide Level 38 mmol/L Anion Gap 5.0 mmol/L Blood Urea Nitrogen 75 mg/dl Creatinine 1.70 mg/dl Est Creatinine Clear Calc Drug Dose 49.3 ml/min Estimated GFR () 36.8 Estimated GFR (Non- 31.8 BUN/Creatinine Ratio 44.3 Random Glucose 166 mg/dl Calcium Level 10.5 mg/dl Phosphorus Level 2.3 mg/dl Magnesium Level 1.9 mg/dl Bedside Glucose 169 mg/dl 248 mg/dl (Maegan Patel, PA-C) Assessment and Plan 60-year-old female with a history of morbid obesity, COPD, chronic diastolic heart failure presents emergency department with altered mental status and frequent falls. Found to be in hypercapnic respiratory failure with an elevated calcium Metabolic encephalopathy likely multifactorial, carbon dioxide retention, acute on chronic kidney failure, etc Acute on chronic hypercapnic respiratory failure/morbid obesity hypoventilation syndrome-finally improving -Continue O2 per NC -stable for d/c from tele Hypokalemia -KCl 40 mEq po x 1. Careful for renal fxn Hypercalcemia-Improving. Etiology unknown but now worrisome for malignancy ( multiple myeloma) vs possible sarcoidosis Urine electrophoresis with monoclonal protein. Serum free light chains is elevated. -Oncology consult -change lasix to 80 mg PO daily Acute on chronic diastolic heart failure-stable Escherichia coli UTI, and bilateral lower extremity mild cellulitis -change doxycycline to po -d/c rocephin. Begin Keflex 500 mg po TID COPD- -Continue Spiriva and Advair -Change hydrocortisone to prednisone 40 mg po daily diabetes mellitus -Pharmacy managing Acute on chronic renal failure-creatinine at baseline 1.7 -Nephrology following DVT prophylaxis -Heparin 5000 u subQ tid -TEDS, SCDs CODE STATUS Discussed with patient's , okay CPR shock but DO NOT INTUBATE DISPO -transfer to med/surg This chart was completed in part utilizing [employer] Speech Voice Recognition software. Attempts were made to minimize the grammatical errors, random word insertions, pronoun errors and incomplete sentences. Any formal questions or concerns about the content, text or information contained within the body of this dictation should be directly addressed to the provider for clarification. (Maegan Patel, JOSHUA) Reviewed: Pt Seen/Exam by Me (Sarah Goetz, ) History Pt is feeling much improved. On her home O2 baseline now. No chest pain. Tolerating PO without issue. Agree with HPI/ROS as noted. (Sarah Goetz, ) Comments General Appearance: no apparent distress, + obese Respiratory/Chest: no respiratory distress, + decreased breath sounds ( improving) Cardiovascular: regular rate, rhythm, + normal peripheral pulses Abdomen: non tender, soft, + distended Extremities: non-tender, no pedal edema 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: alert, oriented x 3 Skin: normal color, warm/dry (Sarah Goetz DO) Assessment/Plan Agree with plan as outlined above Transitioning to PO meds Stable for transfer to floor Labs pending Hem/onc c/s pending (Sarah Goetz DO)
--- NOTE | 2016-06-18 14:20 | Pharmacy Progress Note ---
Glycemic Control: Progress Nt Date of Service Jun 18, 2016. Scope Glycemic Pharmacist consulted by Maegan Patel on 06/14/2016 for glycemic control and to write orders per [facility] inpatient glycemic control protocol. Objective Accuchecks BSG (last 24hrs): Test 06/17/16 16:12 06/17/16 20:14 06/17/16 23:43 06/18/16 03:47 Bedside Glucose 245 mg/dl (70-90) 262 mg/dl (70-90) 205 mg/dl (70-90) 157 mg/dl (70-90) Test 06/18/16 06:15 06/18/16 06:31 06/18/16 11:05 Random Glucose 166 mg/dl (70-99) Bedside Glucose 169 mg/dl (70-90) 248 mg/dl (70-90) Laboratory Data (last 24hrs) Test 06/18/16 06:15 Anion Gap 5.0 mmol/L BUN/Creatinine Ratio 44.3 Blood Urea Nitrogen 75 mg/dl Creatinine 1.70 mg/dl Potassium Level 3.1 mmol/L Sodium Level 137 mmol/L White Blood Count 8.73 K/uL Red Blood Count 3.25 M/uL Hemoglobin 10.3 g/dL Hematocrit 31.7 % Mean Corpuscular Volume 97.5 fL Mean Corpuscular Hemoglobin 31.7 pg Mean Corpuscular Hemoglobin Concent 32.5 g/dl Platelet Count 217 K/uL Mean Platelet Volume 11.1 fL Neutrophils (%) (Auto) 84.2 % Lymphocytes (%) (Auto) 3.1 % Monocytes (%) (Auto) 10.1 % Eosinophils (%) (Auto) 0.8 % Basophils (%) (Auto) 0.5 % Neutrophils # (Auto) 7.36 K/uL Lymphocytes # (Auto) 0.27 K/uL Monocytes # (Auto) 0.88 K/uL Eosinophils # (Auto) 0.07 K/uL Basophils # (Auto) 0.04 K/uL Recent Pertinent Medications Outpatient Anti-diabetic Regimen: * Toujeo 70 units TID plus Novolog 50 units with breakfast, 50 units with lunch , 90 units with dinner, and 40 units at bedtime (confirmed with [employer] record) * A1c = 6.3 % 05/20/2016 Risk Factors for Insulin Resistance: * Steroids: hydrocortisone 100 mg IV q8 hours x1 dose today then changed to prednisone 40 mg PO daily starting 06/19/2016 * Infection: chronic cellulitis currently on PO Keflex and Doxycycline * Diet: full liquid + type 2 diabetic diet for breakfast changed to type 2 diabetic diet for lunch Assessment & Plan ASSESSMENT: * ADA & AACE recommend a goal blood sugar range 140-180 mg/dl for the majority of critically ill & non-critically ill patients. However, more stringent targets may be selected in individual cases. * 60 y/o F admitted with a fall and hypercarbic respiratory failure. She is well -known to the glycemic control service. The patient is well controlled on her home regimen. HOWEVER, according to previous information, it is necessary to reduce the patient's insulin dosing. * Patient required 263 units over the past 24 hours with half coming from basal insulin. A tighter carbohydrate ratio was utilized for lunch because the patient remained on IV steroids with a normal diet and a large jump from 169 mg/ dL fasting to 248 mg/dL prior to lunch. * Diet is advanced to type 2 diabetic diet with hydrocortisone 50 mg IV q8 changed to prednisone 40 mg po daily starting 06/20/16. Will continue the same regimen as previous data has shown that on oral steroids this maintains acceptable blood sugars PLAN FOR INPATIENT GLYCEMIC CONTROL: * Basal insulin with LANTUS 70 units SQ BID * Correctional Insulin with NOVOLOG ACHS plus midnight and 0400 accuchecks * Goal Range: Low 120 mg/dL - High 160 mg/dL * Correction Factor: 5 mg/dL/unit * Nutritional / Prandial insulin per carb ratio of 1 unit per 2 grams CHO consumed * Please note that the plan above was derived based on current level of insulin resistance and hospital stress. These recommendations are appropriate for inpatient admission only. Plan of care upon discharge will need to be reassessed to avoid potential outpatient hypo/hyperglycemia. Thank you.
[2016-06-18] MEDS: CEPHALEXIN MONOHYDRATE 500 MG CAP PO SCH ×2 (14:59→20:14)
--- NOTE | 2016-06-18 15:08 | ONCOLOGY CONSULTATION ---
DATE OF CONSULTATION: 06/18/2016 REASON FOR CONSULTATION: Hypercalcemia, etiology unclear. HISTORY OF PRESENT ILLNESS: Hemalatha is a morbidly obese 60-year-old female patient with multiple comorbid issues presented to the Emergency Department and subsequently admitted for progressive weakness and falls x1 week. At the time of admission, the patient was markedly confused and agitated and medical staff extracted most of the information from her . Apparently, she had had 2 falls on the morning of admission, the first in which she fell backwards but did not lose consciousness or strike her head. She was subsequently admitted with the diagnosis of metabolic encephalopathy, acute on chronic hypercapnic respiratory failure and hypercalcemia. Radiographic imaging and labs were performed as part of workup. Her calcium was as high as 14. She has been treated with bisphosphonate therapy, IV normal saline and Lasix. A spot urine protein electrophoresis with immunofixation was performed and suggestive of a monoclonal gammopathy. The patient has no history of multiple myeloma or amyloidosis. The primary service is requesting assistance in figuring out the patient's current clinical state. PAST MEDICAL HISTORY: Again significant for chronic diastolic heart failure, type 2 diabetes mellitus, morbid obesity, hypertension, chronic venous insufficiency of the lower extremity, cellulitis, COPD, chronic kidney disease stage III. CURRENT MEDICATIONS: Allopurinol 100 mg p.o. every day, ascorbic acid 1000 mg p.o. every day, atorvastatin 40 mg p.o. every day, Bumex for 3 mg p.o. b.i.d., cholecalciferol 1000 units p.o. every day, ciprofloxacin 500 mg p.o. b.i.d., cyanocobalamin 2500 mcg p.o. every day, doxycycline 100 mg p.o. every day, insulin in varying doses, Belviq 10 mg p.o. b.i.d., Zaroxolyn 5 mg p.o. every day, metoprolol 150 mg p.o. every day, prednisone 15 mg p.o. q.a.m., Lyrica 150 mg p.o. t.i.d., paroxetine 200 mg p.o. every day, Aldactone 50 mg p.o. b.i.d., tiotropium Spiriva HandiHaler 1 inhalation p.o. every day, verapamil hydrochloride extended release 240 mg p.o. every day, vitamin E 800 mg p.o. every day. ALLERGIES: TO DAPTOMYCIN, CODEINE, IODINE, SHELLFISH AND SULFA DRUGS. FAMILY HISTORY: Positive for cancer, diabetes mellitus, gallbladder disease, heart disease, lung disease. SOCIAL HISTORY: The patient is a former smoker, lives with her family, currently unemployed. REVIEW OF SYSTEMS: As per HPI. CONSTITUTIONAL: General decline is noted. The patient is morbidly obese. SKIN: No history of dermatoses; however, does suffer from stasis dermatitis of the lower extremities. HEENT: Negative for headaches, lightheadedness or dizziness. She presented with confusion and agitation. No visual or hearing deficits. No sinus symptoms, sore throat or dysphagia. LYMPHATIC: Chronic lymphedema involving her lower extremities. CARDIAC: Positive for history of diastolic heart failure. No current angina or palpitations. PULMONARY: Positive for obstructive sleep apnea and COPD. She is not presently short of breath, dyspneic or orthopneic. GASTROINTESTINAL: No abdominal pain, nausea, vomiting, diarrhea or constipation, hematochezia or melena stools. GENITOURINARY: No hematuria, dysuria, urinary incontinence. PSYCHIATRIC: Negative for anxiety, depression or psychoses. ENDOCRINE: Positive for diabetes mellitus. NEUROLOGIC: Negative for seizure disorders, migraine headaches, or stroke by history. HEMATOLOGIC: Positive for anemia. Negative for bleeding diathesis by history. PHYSICAL EXAMINATION: GENERAL: Morbidly obese 60-year-old female patient in no acute distress. VITAL SIGNS: Temperature 36.4, pulse 92, respirations 20, blood pressure 177/75. SKIN: Again stasis dermatitis changes noted in the lower extremities. Otherwise, no rash or petechiae or scattered ecchymosis noted. HEENT: Head atraumatic, normocephalic. EYES: PERRLA, EOMI. Sclerae are nonicteric. No conjunctival injection. Nares patent without rhinorrhea or discharge. Throat is clear. Tongue midline. Mucous membranes are moist. No buccal lesions or ulcerations. NECK: Bull neck. LYMPHATIC: No cervical, supraclavicular, axillary palpable nodes. HEART: Regular rate and rhythm. No clicks, rubs or murmurs. LUNGS: Clear to auscultation bilaterally. ABDOMEN: Soft, nontender, nondistended, without palpable hepatosplenomegaly. EXTREMITIES: Chronic pitting edema in the lower extremities bilaterally. Stasis dermatitis changes otherwise noted. Strength testing not done. Pulses difficult to elicit. NEUROLOGIC: She is awake, alert and oriented x3. Her cranial nerves are intact. LABORATORY DATA: WBC count 8730, hemoglobin 10.3, and platelet count 217,000. Sodium 137, potassium 3.1, chloride 94, carbon dioxide 38, creatinine 1.7, BUN 75, calcium has retreated to 10.5. IMAGING DATA: Chest x-ray performed on June 16, mild congestive failure, similar to prior exam developing right basilar parenchymal infiltrate. ASSESSMENT AND PLAN: 1. Hypercalcemia, etiology unknown. 2. Metabolic encephalopathy. 3. Acute on chronic hypercapnic respiratory failure. 4. Chronic obstructive pulmonary disease. 5. Diabetes mellitus. 6. Lower extremity cellulitis. 7. Acute on chronic renal failure. PLAN: I have been asked to evaluate Hemalatha because of urinary findings during this admission. There is suggestion monoclonal protein. Review of most recent radiographic study shows no indication of lytic bony disease characteristic in myeloma. Her anemia certainly could be multifactorial as well. Considering her renal function, I suspect she suffers from anemia secondary to her renal disease/chronic disease. We will proceed with a full anemia workup including SPEP and 24 hour UPEP. Other causes of hypercalcemia need to be ruled out, particularly sarcoidosis, hyperparathyroidism and/or occult neoplasia. Agree with current medical management. We will continue to follow her during her hospital stay. I would also recommend making arrangements for outpatient followup upon discharge. Thank you very much for allowing me to participate in her care. If you have any questions or concerns, feel free to contact me at any time. MEGHANA
[2016-06-18 15:55] LABS: FERRITIN 106.6 ng/ml (8.0-388.0)
[2016-06-18 18:53] LABS: ALBUMIN 3.3 G/DL (3.8-4.8); GAMMA GLOBULIN 2.9 G/DL (0.8-1.7); MONOCLONAL PROTEIN BAND 1 2.6 G/DL (NOT DETECTED); TOTAL PROTEIN 8.6 G/DL (6.2-8.3)
[2016-06-18] MEDS: DOXYCYCLINE HYCLATE 100 MG CAP PO SCH (20:15)
[2016-06-18] MEDS ORDERED: NURSING DECISION MEDICATION ORDER SCH (23:00)
[2016-06-18] MEDS ORDERED: MICONAZOLE NITRATE POWDER 43 GM EXT PRN (23:15)
[2016-06-18] MEDS: HYDROmorphone INJ 1 MG/ML SYR IV PRN (23:27)
[2016-06-19] VITALS (7 sets, daily range): BP systolic 148–193; BP diastolic 65–80; PULSE 86–101; TEMP 36.3–37.1; O2SAT 88–95
[2016-06-19] MEDS: INSULIN ASPART 100 UNITS/ML 3 ML PEN SC SCH ×6 (04:00→21:39)
[2016-06-19] MEDS: METOPROLOL TARTRATE 1 MG/ML VIAL IV. SCH ×3 (05:43→17:55)
[2016-06-19] MEDS: HEPARIN SOD 5000 UNIT/0.5 ML CARP SQ SCH ×3 (05:46→21:48)
[2016-06-19 06:40] LABS: BASO % 0.2 %; BASO ABS # 0.02 K/uL (0-0.2); COMPLETE YES; EOS % 0.8 %; HEMATOCRIT 32.4 % (37-47); LYMPH % 14.4 %; LYMPH ABS # 1.47 K/uL (1.2-3.4); MEAN CELL VOLUME 97.6 fL (80-100); MEAN CORPUSCULAR HEMOGLOBIN 30.4 pg (25-34); MEAN CORPUSCULAR HGB CONC 31.2 g/dl (32-36); MEAN PLATELET VOLUME 10.2 fL (7.4-10.4); MONO % 6.7 %; NEUT % 76.9 %; PLATELET COUNT 214 K/uL (130-400); RED BLOOD COUNT 3.32 M/uL (4.2-5.4); WHITE BLOOD COUNT 10.19 K/uL (4.8-10.8)
[2016-06-19] MEDS: ALBUT/IPRATROP 3MG/0.5MG NEB 3 ML VIAL INH SCH ×4 (07:01→19:54)
[2016-06-19 07:23] LABS: BUN/CREATININE RATIO 36.2 (10-20); CALCIUM 10.1 mg/dl (8.5-10.1); CREATININE 2.1 mg/dl (0.60-1.20); MAGNESIUM 1.9 mg/dl (1.8-2.4); PHOSPHORUS 2.1 mg/dl (2.5-4.9); POTASSIUM 3.3 mmol/L (3.5-5.1)
[2016-06-19] MEDS ORDERED: FUROSEMIDE 80 MG TAB PO SCH (08:00)
[2016-06-19] MEDS ORDERED: POTASSIUM CHLORIDE 10 MEQ TABCR PO ONE (09:15)
[2016-06-19] MEDS: TIOTROPIUM BROMIDE 5 PUFF/90 MCG INH INH SCH (09:21)
[2016-06-19] MEDS: FLUTICASONE/SALMETEROL (ADVAIR) 500/50 INH 14 PUFF INH SCH ×2 (09:21→21:34)
[2016-06-19] MEDS: DOXYCYCLINE HYCLATE 100 MG CAP PO SCH ×2 (09:22→21:41)
[2016-06-19] MEDS: ATORVASTATIN 40 MG TAB PO SCH (09:23)
[2016-06-19] MEDS: VERAPAMIL HCL 240 MG TABCR PO SCH (09:23)
[2016-06-19] MEDS: CEPHALEXIN MONOHYDRATE 500 MG CAP PO SCH ×3 (09:23→21:40)
[2016-06-19] MEDS: NYSTATIN OINT 15 GM TUBE EXT SCH ×3 (09:26→21:33)
[2016-06-19] MEDS: INSULIN GLARGINE SC SCH ×2 (09:27→21:36)
[2016-06-19] MEDS: PREGABALIN 150 MG CAP PO SCH ×3 (09:32→21:40)
--- NOTE | 2016-06-19 09:43 | Nephrology Progress Note ---
Nephrology Progress Note Date of Service Jun 19, 2016. Chief Complaint Evaluation of hypercalcemia in this patient with advanced CKD, obesity hypoventilation syndrome and right sided heart failure Subjective Mrs. Gaytan was seen and examined in her hospital room this morning. She is alert and breathing comfortably on O2 at 2 L / min NC. She denies any complications overnight. She reports brisk urine output in response to IV diuretic therapy. Mrs. Gaytan has been seen by Oncology yesterday. 24 hour urine studies are pending Review of Systems Constitutional: No fever Cardiovascular: No chest pain Respiratory: No dyspnea at rest Abdomen: No nausea, No pain, No vomiting Extremities: + leg edema A complete review of systems was performed. Pertinent positives are noted above. All other systems are negative. Vital Signs Last 8 Hrs Date Time Temp Pulse Resp B/P Pulse Ox O2 Delivery O2 Flow Rate FiO2 06/19/16 07:43 36.3 91 18 151/80 93 Room Air 2.0 06/19/16 07:01 101 16 90 Nasal Cannula 3.0 06/19/16 05:43 100 166/75 I & O 24-Hour Column 06/19/16 08:00 Output Total 125 ml Balance -125 ml Last Recorded Weight Weight (Kilograms): 145.600 Physical Exam General Appearance: no apparent distress Head: normocephalic, atraumatic Eyes: PERRL, EOMI Neck: no adenopathy, no JVD Respiratory/Chest: lungs clear Cardiovascular: regular rate, rhythm Abdomen/GI: normal bowel sounds, non tender, soft Extremities/Musculoskelatal: no calf tenderness, + swelling (2+ pretibial pitting edema w/ hemosiderin staining) Neurologic/Psych: alert, oriented x 3 Family History Cancer Diabetes mellitus Gallbladder disease Heart disease Lung disease Negative for CKD/ESRD Social History Smoking Status: Former smoker Alcohol Use: none Drug Use: none Marital Status: Housing Status: lives with family Occupation: unemployed . Lives with . Remote h/o tobacco use. Laboratory Results Past 24 Hours 06/19/16 06:05 Red Blood Count 3.32, Mean Corpuscular Volume 97.6, Mean Corpuscular Hemoglobin 30.4, Mean Corpuscular Hemoglobin Concent 31.2, Mean Platelet Volume 10.2, Neutrophils (%) (Auto) 76.9, Lymphocytes (%) (Auto) 14.4, Monocytes (%) (Auto) 6.7, Eosinophils (%) (Auto) 0.8, Basophils (%) (Auto) 0.2, Neutrophils # (Auto) 7.84, Lymphocytes # (Auto) 1.47, Monocytes # (Auto) 0.68, Eosinophils # (Auto) 0.08, Basophils # (Auto) 0.02 06/19/16 06:05 Test 06/18/16 11:05 06/18/16 14:42 06/18/16 16:12 06/18/16 19:37 Bedside Glucose 248 mg/dl (70-90) 172 mg/dl (70-90) 192 mg/dl (70-90) Absolute Reticulocyte Count 0.10 10^6/uL (0.02-0.10) Percent Reticulocyte Count 2.9 % (0.5-2.0) Iron Level 54 mcg/dl (35-150) Total Iron Binding Capacity 313 mcg/dl (250-450) Ferritin 106.6 ng/ml (8.0-388.0) Test 06/19/16 00:25 06/19/16 04:16 06/19/16 06:05 06/19/16 07:25 Bedside Glucose 152 mg/dl (70-90) 158 mg/dl (70-90) 150 mg/dl (70-90) White Blood Count 10.19 K/uL (4.8-10.8) Red Blood Count 3.32 M/uL (4.2-5.4) Hemoglobin 10.1 g/dL (12.0-16.0) Hematocrit 32.4 % (37-47) Mean Corpuscular Volume 97.6 fL (80-100) Mean Corpuscular Hemoglobin 30.4 pg (25-34) Mean Corpuscular Hemoglobin Concent 31.2 g/dl (32-36) Platelet Count 214 K/uL (130-400) Mean Platelet Volume 10.2 fL (7.4-10.4) Neutrophils (%) (Auto) 76.9 % Lymphocytes (%) (Auto) 14.4 % Monocytes (%) (Auto) 6.7 % Eosinophils (%) (Auto) 0.8 % Basophils (%) (Auto) 0.2 % Neutrophils # (Auto) 7.84 K/uL (1.4-6.5) Lymphocytes # (Auto) 1.47 K/uL (1.2-3.4) Monocytes # (Auto) 0.68 K/uL (0.11-0.59) Eosinophils # (Auto) 0.08 K/uL (0-0.5) Basophils # (Auto) 0.02 K/uL (0-0.2) RDW Standard Deviation 68.5 fL (36.4-46.3) RDW Coefficient of Variation 19.0 % (11.5-14.5) Immature Granulocyte % (Auto) 1.0 % Immature Granulocyte # (Auto) 0.10 K/uL (0.00-0.02) Nucleated RBC Absolute Count (auto) 0.16 K/uL (0-0) Nucleated Red Blood Cells % 1.6 % Anion Gap 5.0 mmol/L (3-11) Est Creatinine Clear Calc Drug Dose 39.9 ml/min Estimated GFR () 28.5 Estimated GFR (Non- 24.6 BUN/Creatinine Ratio 36.2 (10-20) Calcium Level 10.1 mg/dl (8.5-10.1) Phosphorus Level 2.1 mg/dl (2.5-4.9) Magnesium Level 1.9 mg/dl (1.8-2.4) Allergies Coded Allergies: Daptomycin (Verified Allergy, Mild, HIVES, 06/14/16) itching Codeine (Verified Allergy, Unknown, unknown, 06/14/16) has tolerated morphine Iodine (Verified Allergy, Unknown, 06/14/16) Shellfish (Verified Allergy, Unknown, 06/14/16) Sulfamethoxazole w/Trimethoprim (Verified Allergy, Unknown, RASH, 06/14/16) Medications Current Inpatient Medications Medications (Trade) Dose Ordered Sig/Duyen Route Start Time Stop Time Status Last Admin Dose Admin Acetaminophen (Tylenol Tab) 650 mg Q4H PRN PO 06/14/16 14:00 07/14/16 13:59 06/15/16 13:46 650 MG Ondansetron HCl (Zofran Inj) 4 mg Q6H PRN IV 06/14/16 14:00 07/14/16 13:59 Atorvastatin Calcium (Lipitor Tab) 40 mg DAILY PO 06/15/16 09:00 07/15/16 08:59 06/19/16 09:23 40 MG Salmeterol Xinafoate/ Fluticasone (Advair Diskus 500/50 Inh) 1 puff BID INH 06/14/16 21:00 07/14/16 20:59 06/19/16 09:21 1 PUFF Metoprolol Succinate (Toprol Xl Tab) 150 mg DAILY PO 06/15/16 09:00 07/15/16 08:59 Future Hold Prednisone (PredniSONE TAB) 15 mg QAM PO 06/15/16 09:00 07/15/16 08:59 Future Hold 06/16/16 08:40 15 MG Pregabalin (Lyrica Cap) 150 mg TID PO 06/14/16 14:00 07/14/16 13:59 06/19/16 09:32 150 MG Verapamil HCl (Calan-Sr Tab) 240 mg DAILY PO 06/15/16 09:00 07/15/16 08:59 06/19/16 09:23 240 MG Metoprolol Tartrate (Lopressor Iv) 5 mg Q6 IV. 06/14/16 18:00 07/14/16 17:59 06/19/16 05:43 5 MG Hydralazine HCl (HydrALAZINE INJ) 10 mg Q6H PRN IV. 06/14/16 14:00 07/14/16 13:59 Heparin Sodium (Porcine) (Heparin Sq 5000 Unit/0.5ml) 5,000 unit Q8 SQ 06/14/16 22:00 07/14/16 21:59 06/19/16 05:46 5,000 UNIT Miscellaneous Information (Consult Glycemic Management Pharmacy) 1 ea UD PRN N/A 06/14/16 15:34 07/14/16 15:33 Nystatin (Mycostatin Oint) 1 appln TID EXT 06/14/16 21:00 07/14/16 20:59 06/19/16 09:26 1 APPLN Tiotropium [place] (Spiriva Handihaler Inhaler) 1 puff DAILY INH 06/15/16 09:00 07/15/16 08:59 06/19/16 09:21 1 PUFF Glucose (Glucose 40% Gel) 15-30 GRAMS 15 GRAMS... UD PRN PO 06/14/16 17:00 07/14/16 16:59 Glucose (Glucose Chew Tab) 4-8 Tablets 4 Tabl... UD PRN PO 06/14/16 17:00 07/14/16 16:59 Dextrose (Dextrose 50% 50ML Syringe) 25-50ML OF 50% DW IV FOR... UD PRN IV 06/14/16 17:00 07/14/16 16:59 Glucagon (Glucagon Inj) 1 mg UD PRN SQ 06/14/16 17:00 07/14/16 16:59 Acetaminophen/ Hydrocodone Bitart ([place] 5/325 Tab) prn TID PRN PO 06/15/16 09:45 06/29/16 09:44 06/17/16 21:59 1 TAB Albuterol/ Ipratropium (Duoneb) 3 ml QIDR INH 06/16/16 16:00 07/16/16 15:59 06/19/16 07:01 3 ML Albuterol/ Ipratropium (Duoneb) 3 ml Q2H PRN INH 06/16/16 14:45 07/16/16 14:44 Insulin Glargine (Lantus Vial) 70 unit BID SC 06/17/16 16:45 07/17/16 16:44 06/19/16 09:27 70 UNIT Insulin Aspart (novoLOG ASPART) SLIDING SCALE G... ACHS SC 06/17/16 16:15 07/17/16 16:14 06/19/16 09:32 25 UNITS Insulin Aspart (novoLOG ASPART) SLIDING SCALE G... 0000,0400 SC 06/18/16 00:00 07/18/16 00:00 06/17/16 23:50 9 UNITS Doxycycline Hyclate (Vibramycin Cap) 100 mg BID PO 06/18/16 20:00 06/24/16 23:59 06/19/16 09:22 100 MG Cephalexin Monohydrate (Keflex Cap) 500 mg TID PO 06/18/16 14:00 06/28/16 13:59 06/19/16 09:23 500 MG Prednisone (PredniSONE TAB) 40 mg DAILY PO 06/19/16 08:00 07/19/16 08:59 06/19/16 09:22 40 MG Miconazole Nitrate 1 appln 1 appln PRN PRN EXT 06/18/16 23:15 07/18/16 23:14 Furosemide/Syringe (Lasix Inj/ Syringe) 4 ml @ 4 mls/min BID17 IV 06/19/16 20:00 07/19/16 19:59 Impression (1) Obesity hypoventilation syndrome (2) Respiratory failure with hypercapnia (3) CO2 narcosis (4) Hypercalcemia (5) Pulmonary nodules (6) Chronic kidney disease (CKD) stage G3b/A1, moderately decreased glomerular filtration rate (GFR) between 30-44 mL/min/1.73 square meter and albuminuria creatinine ratio less than 30 mg/g Patient admitted to the hospital for evaluation respiratory failure w/ CO2 narcosis and hypercalcemia. Her medical history is significant for stage III CKD (baseline creatinine 1.7 - 2.0), HTN, obesity (BMI 56) and obesity hypoventilation syndrome. In October 2014 she had an echocardiogram performed which revealed LVEF 55 - 60%, mild LVH, RVSP 45, mild RV dilation and moderate TR. She was hospitalized 05/16 w/ CHF and cellulitis. As an outpatient she has developed progressive volume overload requiring the addition of Metolazone to her regular diuretic regimen. She responded well and lost 7 kg fluid weight in one week. She unfortunately developed progressive weakness and is now admitted with respiratory failure, severe hypercarbia and hypercalcemia. Preliminary evaluation of hypercalcemia reveals normal thyroid function, low PTH, normal vitamin D and alkaline phosphatase level. Serum RAMIRO level, serum free light chains, PTHrp and Vitamin A levels are pending. PMH - CKD w/ baseline creatinine 1.7 - 2.0, HTN, AODM, BMI > 50, COPD (home O2 at 3 L / min ATC), lung nodule, RA of hands, cor pulmonale (Echo 11/14: LVEF 55 - 60%, mild LVH, RVSP 45, mild RV dilation and moderate TR) Recommendations HYPERCALCEMIA: -- Metolazone has been stopped -- Calcitonin and Zometa were given upon admission. Serum calcium is improved to 10.1 -- TSH, T4, alkaline phosphatase, vitamin D level, serum RAMIRO level are within normal limits. PTH is appropriately suppressed -- Await balance of hypercalcemia evaluation (PTHrp and Vitamin A level are pending) -- UEP c/w monoclonal protein. Serum free light chains is markedly elevated. Oncology recommendations have been reviewed. 24 hour urine studies are in progress -- Continue IV loop diuretic GUNNAR: -- Resolved CKD: -- Baseline creatinine has been 1.7 - 2.0 PULM: -- Obesity hypoventilation syndrome -- Presented to hospital w/ severe hypercapnia -- 06/18/16 Pulmonolgy recommendations reviewed. Continue CPAP. Patient is on Doxycycline and bronchodilators are being adjusted ID: -- CXR w/ possible right basilar infiltrate -- On Ceftriaxone and Doxycycline -- Urine culture + for E. Coli sensitive to Ceftriaxone
--- NOTE | 2016-06-19 11:36 | PULMONARY PROGRESS NOTE ---
DATE: 06/19/2016 DATE: 06/19/2016. TIME: 11:05 a.m. SUBJECTIVE: The patient is generally feeling better. She is getting more and more awake and alert. She now is not having any significant respiratory distress or discomfort. She has very little cough. She has been undergoing significant evaluation for hypercalcemia and the potential causes for that. OBJECTIVE: GENERAL: The patient is awake and alert. Her was with her during this evaluation. She was noted to have some ptosis of the right eyelid. She states this has been going on for almost a year in a gradual situation. She has been procrastinating going to the eye doctor but she feels she needs to do it. There was no evidence of pupillary changes. Her face is very puffy and appears as if she might be Cushingoid. VITAL SIGNS: Temperature is 36.3. She has not had any fevers. Heart rate is 90. Blood pressure 151/80. Respiratory rate is 18. The breath sounds are diffusely diminished but without active wheezes, rales or rhonchi. Saturation was 93% on 2 liters. ABDOMEN: Obese. Bowel sounds were present. There was no tenderness to palpation. EXTREMITIES: Reveals chronic skin color changes in both lower extremities. She has edema on the dorsum of the foot and in the lower anterior tibial regions. This is despite the fact she has had a negative fluid balance each day. Yesterday she had a negative 900. Her weight today is 145.6 kilograms and on the 16th was 148.3 kilograms. LABORATORY DATA: Electrolytes show sodium 136, potassium 3.3, chloride 91, bicarbonate 40. BUN is 76 with a creatinine of 2.1. Creatinine on admission was 2.5 and a BUN of admission was 103. IMPRESSIONS: 1. Respiratory failure -- acute on chronic with both hypercarbia and hypoxia. 2. Obesity hypoventilation syndrome. 3. Obstructive sleep apnea. 4. Chronic obstructive pulmonary disease. 5. Hypercalcemia. 6. Status post fall. COMMENTS: I am suspecting that the hypercalcemia was more involved with her lethargy than hypercarbia itself was. The numbers are improving. Calcium today was 10.1. She is in a workup for possible myeloma or similar problems as well. Although sarcoidosis would be in the differential diagnosis. She had a relatively recent CAT scan that did not show findings suggestive for sarcoidosis. That CAT scan was done in January 2016. Overall, her respiratory status seems stable. She is still wearing her Trilogy at nighttime. She is getting prednisone 40 mg per day. She is on oral doxycycline and cephalexin. She is getting DuoNeb treatments. I agree with all of those measures.
[2016-06-19] MEDS ORDERED: FUROSEMIDE INJ 40 MG in SYRINGE 0 ML IV ONE (11:45)
[2016-06-19] MEDS ORDERED: NURSING VERBAL MED ORDER ONE (11:45)
--- NOTE | 2016-06-19 12:15 | Hospitalist Progress Note ---
Hospitalist Progress Note Date of Service Jun 19, 2016. (Maegan Patel PA-C) Subjective Pt evaluation today including: conversation w/ patient, physical exam, chart review, lab review, conversation w/ immigration consultant, review of inpatient medication list Patient reports breathing is fairly good today. She did get somewhat winded when she was up moving around to the restroom. She denies any fever or cough. She does note that she has more swelling in her legs today. She denies fever, chills or body aches. Additional Comments: 6 system review negative. Please see pertinent positives in the history of present illness section. (Maegan Patel PA-C) Objective Vital Signs Date Time Temp Pulse Resp B/P Pulse Ox O2 Delivery O2 Flow Rate FiO2 06/19/16 10:30 Nasal Cannula 3.0 Humidified Oxygen 06/19/16 07:43 36.3 91 18 151/80 93 Nasal Cannula 3.0 06/19/16 07:01 101 16 90 Nasal Cannula 3.0 06/19/16 05:43 100 166/75 06/19/16 00:01 36.8 86 20 170/75 92 BiPAP 3.0 06/19/16 00:00 94 Nasal Cannula 3.0 50 Humidified Oxygen 06/18/16 23:20 87 170/75 06/18/16 19:56 76 16 94 Nasal Cannula 3.0 06/18/16 17:59 77 154/66 06/18/16 17:38 Nasal Cannula 3.0 Humidified Oxygen 06/18/16 17:21 77 154/66 06/18/16 15:40 95 18 93 Nasal Cannula 4.0 06/18/16 14:12 36.5 94 20 182/90 95 3.5 06/18/16 13:32 36.4 92 20 93 3.5 06/18/16 12:23 92 177/75 (Maegan Patel PA-C) Physical Exam General Appearance: + mild distress (mild respiratory distress) Eyes: EOMI Neck: no JVD Respiratory/Chest: + pertinent finding (decreased breath sounds at the bases no wheezing bilaterally.) Cardiovascular: regular rate, rhythm Abdomen: normal bowel sounds, non tender, soft Extremities: + pertinent finding (pitting edema slightly worse today. Also slightly more red.) 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: no motor/sensory deficits, oriented x 3 Skin: warm/dry (Maegan Patel PA-C) Laboratory Results 06/19/16 06:05 Red Blood Count 3.32, Mean Corpuscular Volume 97.6, Mean Corpuscular Hemoglobin 30.4, Mean Corpuscular Hemoglobin Concent 31.2, Mean Platelet Volume 10.2, Neutrophils (%) (Auto) 76.9, Lymphocytes (%) (Auto) 14.4, Monocytes (%) (Auto) 6.7, Eosinophils (%) (Auto) 0.8, Basophils (%) (Auto) 0.2, Neutrophils # (Auto) 7.84, Lymphocytes # (Auto) 1.47, Monocytes # (Auto) 0.68, Eosinophils # (Auto) 0.08, Basophils # (Auto) 0.02 06/19/16 06:05 Test 06/18/16 14:42 06/19/16 06:05 06/19/16 11:18 Absolute Reticulocyte Count 0.10 10^6/uL (0.02-0.10) Percent Reticulocyte Count 2.9 % (0.5-2.0) Iron Level 54 mcg/dl (35-150) Total Iron Binding Capacity 313 mcg/dl (250-450) Ferritin 106.6 ng/ml (8.0-388.0) White Blood Count 10.19 K/uL (4.8-10.8) Red Blood Count 3.32 M/uL (4.2-5.4) Hemoglobin 10.1 g/dL (12.0-16.0) Hematocrit 32.4 % (37-47) Mean Corpuscular Volume 97.6 fL (80-100) Mean Corpuscular Hemoglobin 30.4 pg (25-34) Mean Corpuscular Hemoglobin Concent 31.2 g/dl (32-36) Platelet Count 214 K/uL (130-400) Mean Platelet Volume 10.2 fL (7.4-10.4) Neutrophils (%) (Auto) 76.9 % Lymphocytes (%) (Auto) 14.4 % Monocytes (%) (Auto) 6.7 % Eosinophils (%) (Auto) 0.8 % Basophils (%) (Auto) 0.2 % Neutrophils # (Auto) 7.84 K/uL (1.4-6.5) Lymphocytes # (Auto) 1.47 K/uL (1.2-3.4) Monocytes # (Auto) 0.68 K/uL (0.11-0.59) Eosinophils # (Auto) 0.08 K/uL (0-0.5) Basophils # (Auto) 0.02 K/uL (0-0.2) RDW Standard Deviation 68.5 fL (36.4-46.3) RDW Coefficient of Variation 19.0 % (11.5-14.5) Immature Granulocyte % (Auto) 1.0 % Immature Granulocyte # (Auto) 0.10 K/uL (0.00-0.02) Nucleated RBC Absolute Count (auto) 0.16 K/uL (0-0) Nucleated Red Blood Cells % 1.6 % Anion Gap 5.0 mmol/L (3-11) Est Creatinine Clear Calc Drug Dose 39.9 ml/min Estimated GFR () 28.5 Estimated GFR (Non- 24.6 BUN/Creatinine Ratio 36.2 (10-20) Calcium Level 10.1 mg/dl (8.5-10.1) Phosphorus Level 2.1 mg/dl (2.5-4.9) Magnesium Level 1.9 mg/dl (1.8-2.4) Bedside Glucose 224 mg/dl (70-90) Last 24 Hours Test 06/18/16 14:42 06/18/16 16:12 06/18/16 19:37 06/19/16 00:25 Absolute Reticulocyte Count 0.10 10^6/uL Percent Reticulocyte Count 2.9 % Iron Level 54 mcg/dl Total Iron Binding Capacity 313 mcg/dl Ferritin 106.6 ng/ml Bedside Glucose 172 mg/dl 192 mg/dl 152 mg/dl Test 06/19/16 04:16 06/19/16 06:05 06/19/16 07:25 06/19/16 11:18 Bedside Glucose 158 mg/dl 150 mg/dl 224 mg/dl White Blood Count 10.19 K/uL Red Blood Count 3.32 M/uL Hemoglobin 10.1 g/dL Hematocrit 32.4 % Mean Corpuscular Volume 97.6 fL Mean Corpuscular Hemoglobin 30.4 pg Mean Corpuscular Hemoglobin Concent 31.2 g/dl Platelet Count 214 K/uL Mean Platelet Volume 10.2 fL Neutrophils (%) (Auto) 76.9 % Lymphocytes (%) (Auto) 14.4 % Monocytes (%) (Auto) 6.7 % Eosinophils (%) (Auto) 0.8 % Basophils (%) (Auto) 0.2 % Neutrophils # (Auto) 7.84 K/uL Lymphocytes # (Auto) 1.47 K/uL Monocytes # (Auto) 0.68 K/uL Eosinophils # (Auto) 0.08 K/uL Basophils # (Auto) 0.02 K/uL RDW Standard Deviation 68.5 fL RDW Coefficient of Variation 19.0 % Immature Granulocyte % (Auto) 1.0 % Immature Granulocyte # (Auto) 0.10 K/uL Nucleated RBC Absolute Count (auto) 0.16 K/uL Nucleated Red Blood Cells % 1.6 % Sodium Level 136 mmol/L Potassium Level 3.3 mmol/L Chloride Level 91 mmol/L Carbon Dioxide Level 40 mmol/L Anion Gap 5.0 mmol/L Blood Urea Nitrogen 76 mg/dl Creatinine 2.10 mg/dl Est Creatinine Clear Calc Drug Dose 39.9 ml/min Estimated GFR () 28.5 Estimated GFR (Non- 24.6 BUN/Creatinine Ratio 36.2 Random Glucose 149 mg/dl Calcium Level 10.1 mg/dl Phosphorus Level 2.1 mg/dl Magnesium Level 1.9 mg/dl (Maegan Patel, PA-C) Assessment and Plan 60-year-old female with a history of morbid obesity, COPD, chronic diastolic heart failure presents emergency department with altered mental status and frequent falls. Found to be in hypercapnic respiratory failure with an elevated calcium Metabolic encephalopathy likely multifactorial, carbon dioxide retention, acute on chronic kidney failure, etc Acute on chronic hypercapnic respiratory failure/morbid obesity hypoventilation syndrome-continues to improve -Continue Trilogy at night per pulmonary recommendations -Continue IV diuresis -Encourage ambulation Hypokalemia -Given additional KCl 40 mEq po Hypercalcemia-? Secondary to malignancy versus sarcoidosis Oncology following, studies still pending ine to po Cellulitis, UTI -Continue doxycycline po BID and Keflex 500 mg po TID -DC Morton tomorrow COPD-no wheezing on exam -Continue Spiriva and Advair -Continue prednisone 40 mg daily diabetes mellitus -Pharmacy managing Acute on chronic renal failure-slight bump in creatinine today 2.1. This is close to baseline.- -Nephrology following DVT prophylaxis -Heparin 5000 u subQ tid -TEDS, SCDs CODE STATUS Discussed with patient's , okay CPR shock but DO NOT INTUBATE DISPO -Will likely need 24-48 hours of further inpatient care This chart was completed in part utilizing [employer] Speech Voice Recognition software. Attempts were made to minimize the grammatical errors, random word insertions, pronoun errors and incomplete sentences. Any formal questions or concerns about the content, text or information contained within the body of this dictation should be directly addressed to the provider for clarification. (Maegan Patel, PAKadeemC) Reviewed: Pt Seen/Exam by Me (Sarah Goetz, ) History Pt is feeling much improved. No major SOB. She is on her baseline home O2. Tolerating PO without issue. Agree with HPI/ROS as noted. (Sarah Goetz, ) Comments General Appearance: no apparent distress, + obese Respiratory/Chest: no respiratory distress, + decreased breath sounds ( improving) Cardiovascular: regular rate, rhythm, + normal peripheral pulses Abdomen: non tender, soft, + distended Extremities: non-tender, pedal edema 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: alert, oriented x 3 Skin: normal color, warm/dry (Sarah Goetz DO) Assessment/Plan Agree with plan as outlined above Transitioning to PO meds Stable for transfer to floor Labs pending Hem/onc c/s with anemia workup Renal is with ongoing IV diuresis (Sarah Goetz DO)
[2016-06-19] MEDS: FUROSEMIDE INJ 40 MG in SYRINGE 0 ML IV SCH (21:34)
[2016-06-20] VITALS (10 sets, daily range): BP systolic 121–163; BP diastolic 64–82; PULSE 79–100; TEMP 36.5–36.8; O2SAT 92–98
[2016-06-20] MEDS: METOPROLOL TARTRATE 1 MG/ML VIAL IV. SCH ×4 (00:11→17:38)
[2016-06-20] MEDS: INSULIN ASPART 100 UNITS/ML 3 ML PEN SC SCH ×6 (00:13→20:44)
[2016-06-20] MEDS: HYDROmorphone INJ 1 MG/ML SYR IV PRN (01:04)
[2016-06-20 06:00] LABS: BASO % 0.2 %; BASO ABS # 0.02 K/uL (0-0.2); EOS % 0.6 %; HEMATOCRIT 32.2 % (37-47); IG% 1.3 %; LYMPH % 7.9 %; MEAN CELL VOLUME 97.3 fL (80-100); MEAN CORPUSCULAR HEMOGLOBIN 31.1 pg (25-34); MEAN PLATELET VOLUME 10.5 fL (7.4-10.4); MONO % 8.4 %; NEUT % 81.6 %; PLATELET COUNT 201 K/uL (130-400); RED BLOOD COUNT 3.31 M/uL (4.2-5.4); WHITE BLOOD COUNT 10.18 K/uL (4.8-10.8)
[2016-06-20] MEDS: HEPARIN SOD 5000 UNIT/0.5 ML CARP SQ SCH ×3 (06:18→20:37)
[2016-06-20 06:24] LABS: COMPLETE YES
[2016-06-20 06:45] LABS: BUN/CREATININE RATIO 33.9 (10-20); CREATININE 2.2 mg/dl (0.60-1.20); POTASSIUM 3.6 mmol/L (3.5-5.1)
[2016-06-20] MEDS: ALBUT/IPRATROP 3MG/0.5MG NEB 3 ML VIAL INH SCH ×4 (07:32→19:19)
[2016-06-20] MEDS: VERAPAMIL HCL 240 MG TABCR PO SCH (07:39)
[2016-06-20] MEDS: PREGABALIN 150 MG CAP PO SCH ×3 (07:39→20:40)
[2016-06-20] MEDS: ATORVASTATIN 40 MG TAB PO SCH (07:39)
[2016-06-20] MEDS: CEPHALEXIN MONOHYDRATE 500 MG CAP PO SCH ×3 (07:39→20:24)
[2016-06-20] MEDS: FLUTICASONE/SALMETEROL (ADVAIR) 500/50 INH 14 PUFF INH SCH ×2 (07:40→20:24)
[2016-06-20] MEDS: DOXYCYCLINE HYCLATE 100 MG CAP PO SCH ×2 (07:40→20:25)
[2016-06-20] MEDS: NYSTATIN OINT 15 GM TUBE EXT SCH ×3 (07:43→21:15)
[2016-06-20] MEDS: FUROSEMIDE INJ 40 MG in SYRINGE 0 ML IV SCH (07:43)
[2016-06-20] MEDS: INSULIN GLARGINE SC SCH ×2 (08:20→20:35)
[2016-06-20] MEDS: TIOTROPIUM BROMIDE 5 PUFF/90 MCG INH INH SCH (08:24)
--- NOTE | 2016-06-20 08:24 | HEME/ONC PROGRESS NOTE ---
DATE: 06/20/2016 DIAGNOSES: 1. Hypercalcemia, etiology unknown. 2. Metabolic encephalopathy. 3. Acute on chronic hypercapnic respiratory failure. 4. Chronic obstructive pulmonary disease. HOSPITAL COURSE: Hemalatha is a morbidly obese 60-year-old female patient with multiple comorbid issues admitted with progressive weakness and falls x1 week. She was found to be hypercalcemic and treated is medically appropriate. I was asked to see her to rule out underlying malignancy or possibly multiple myeloma. Unfortunately, at time of this dictation, none of the diagnostic information is back. Her calcium has normalized and clinically the patient seems to be making a decent progress towards discharge. She states her ambulation is still a little shaky and is working with physical therapy in this regard. Nursing reports no overnight issues. PHYSICAL EXAMINATION: GENERAL: She is in no acute distress. VITAL SIGNS: Temperature 36.8, pulse 80, respirations 20, blood pressure 162/75. SKIN: Stasis dermatitis changes of the lower extremities noted, but otherwise no active rash or lesions. HEENT: Oral mucosa without erythema or ulceration. NECK: Bull neck. HEART: Regular rate and rhythm. LUNGS: Clear to auscultation bilaterally. ABDOMEN: Obese, soft, nontender, nondistended. EXTREMITIES: Chronic pitting edema in the lower extremities bilaterally. NEUROLOGIC: Grossly intact. LABORATORY DATA: WBC count 10,180, hemoglobin 10.3, platelet count 201,000. Sodium 135, potassium 3.6, chloride 91, carbon dioxide 41, creatinine 2.2, BUN 74. IMPRESSION: 1. Metabolic alkalosis. 2. Metabolic encephalopathy. 3. Hypercalcemia. 4. She is on chronic hypercapnic respiratory failure. PLAN: We will continue to observe Hemalatha for now. Unfortunately, 24-hour urine protein electrophoresis with immunofixation and the rest of the myeloma panel is pending at time of this dictation. Perhaps a CT scan may help to rule out occult neoplasia. However, with her current creatinine probably would be ill advised to administer IV contrast. I remain vocational nurse over the weekend and will periodically look in on her chart and most certainly arrange for outpatient followup should discharge be planned over the weekend. Thank you again for allowing me to participate in her care. If you have any questions or concerns, feel free to contact me at any time.
--- NOTE | 2016-06-20 10:08 | Nephrology Progress Note ---
Nephrology Progress Note Date of Service Jun 20, 2016. Chief Complaint Evaluation of hypercalcemia in this patient with advanced CKD, obesity hypoventilation syndrome and right sided heart failure Subjective Mrs. Gaytan was seen and examined in her hospital room this morning. Her was present at bedside. He expressed concern about his 's ability to ambulate and increased risk of falling. Mrs. Gaytan did have PT yesterday. She was able to ambulate 15 feet on level ground w/ the use of a walker and O2 at 3 L / min NC. She did require assistance and her endurance was rated as "poor". Mrs. Gaytan reports brisk urine output but notes that her leg edema has not improved. She has benefited from lymphedema therapy and leg wraps in the past. Review of Systems Constitutional: No fever Cardiovascular: No chest pain Respiratory: + dyspnea on exertion Abdomen: No nausea, No pain, No vomiting Extremities: + leg edema A complete review of systems was performed. Pertinent positives are noted above. All other systems are negative. Vital Signs Last 8 Hrs Date Time Temp Pulse Resp B/P Pulse Ox O2 Delivery O2 Flow Rate FiO2 06/20/16 08:00 Nasal Cannula 3.0 Humidified Oxygen 06/20/16 07:34 36.8 80 20 162/75 98 Nasal Cannula 3.0 06/20/16 07:15 85 14 96 Nasal Cannula 3.0 06/20/16 06:21 87 163/82 06/20/16 06:20 87 163/82 I & O 24-Hour Column 06/20/16 08:00 Intake Total 750 ml Output Total 1350 ml Balance -600 ml Last Recorded Weight Weight (Kilograms): 145.000 Physical Exam General Appearance: no apparent distress Head: + pertinent finding (lara facies) Eyes: PERRL, EOMI Neck: + pertinent finding (short, thick. No appreciable JVD) Respiratory/Chest: + crackles (at bases bilaterally) Cardiovascular: regular rate, rhythm Abdomen/GI: non tender (obese) Genitourinary - Female: + pertinent finding (fernandez catheter in place draining clear yellow urine) Extremities/Musculoskelatal: + pertinent finding (3+ pretibial pitting edema with hemosiderin staining) Neurologic/Psych: alert, oriented x 3 Family History Cancer Diabetes mellitus Gallbladder disease Heart disease Lung disease Negative for CKD/ESRD Social History Smoking Status: Former smoker Alcohol Use: none Drug Use: none Marital Status: Housing Status: lives with family Occupation: unemployed . Lives with . Remote h/o tobacco use. Laboratory Results Past 24 Hours 06/20/16 05:10 Red Blood Count 3.31, Mean Corpuscular Volume 97.3, Mean Corpuscular Hemoglobin 31.1, Mean Corpuscular Hemoglobin Concent 32.0, Mean Platelet Volume 10.5, Neutrophils (%) (Auto) 81.6, Lymphocytes (%) (Auto) 7.9, Monocytes (%) (Auto) 8.4, Eosinophils (%) (Auto) 0.6, Basophils (%) (Auto) 0.2, Neutrophils # (Auto) 8.31, Lymphocytes # (Auto) 0.80, Monocytes # (Auto) 0.86, Eosinophils # (Auto) 0.06, Basophils # (Auto) 0.02 06/20/16 05:10 Test 06/19/16 11:18 06/19/16 16:00 06/19/16 16:36 06/19/16 16:49 Bedside Glucose 224 mg/dl (70-90) 244 mg/dl (70-90) Test 06/19/16 20:14 06/20/16 00:09 06/20/16 04:15 06/20/16 05:10 Bedside Glucose 273 mg/dl (70-90) 249 mg/dl (70-90) 218 mg/dl (70-90) White Blood Count 10.18 K/uL (4.8-10.8) Red Blood Count 3.31 M/uL (4.2-5.4) Hemoglobin 10.3 g/dL (12.0-16.0) Hematocrit 32.2 % (37-47) Mean Corpuscular Volume 97.3 fL (80-100) Mean Corpuscular Hemoglobin 31.1 pg (25-34) Mean Corpuscular Hemoglobin Concent 32.0 g/dl (32-36) Platelet Count 201 K/uL (130-400) Mean Platelet Volume 10.5 fL (7.4-10.4) Neutrophils (%) (Auto) 81.6 % Lymphocytes (%) (Auto) 7.9 % Monocytes (%) (Auto) 8.4 % Eosinophils (%) (Auto) 0.6 % Basophils (%) (Auto) 0.2 % Neutrophils # (Auto) 8.31 K/uL (1.4-6.5) Lymphocytes # (Auto) 0.80 K/uL (1.2-3.4) Monocytes # (Auto) 0.86 K/uL (0.11-0.59) Eosinophils # (Auto) 0.06 K/uL (0-0.5) Basophils # (Auto) 0.02 K/uL (0-0.2) RDW Standard Deviation 66.7 fL (36.4-46.3) RDW Coefficient of Variation 18.7 % (11.5-14.5) Immature Granulocyte % (Auto) 1.3 % Immature Granulocyte # (Auto) 0.13 K/uL (0.00-0.02) Nucleated RBC Absolute Count (auto) 0.20 K/uL (0-0) Nucleated Red Blood Cells % 2.0 % Red Blood Cell Morphology Unremarkable Anion Gap 3.0 mmol/L (3-11) Est Creatinine Clear Calc Drug Dose 38.0 ml/min Estimated GFR () 27.0 Estimated GFR (Non- 23.3 BUN/Creatinine Ratio 33.9 (10-20) Calcium Level 10.0 mg/dl (8.5-10.1) Test 06/20/16 07:54 Bedside Glucose 176 mg/dl (70-90) Allergies Coded Allergies: Daptomycin (Verified Allergy, Mild, HIVES, 06/14/16) itching Codeine (Verified Allergy, Unknown, unknown, 06/14/16) has tolerated morphine Iodine (Verified Allergy, Unknown, 06/14/16) Shellfish (Verified Allergy, Unknown, 06/14/16) Sulfamethoxazole w/Trimethoprim (Verified Allergy, Unknown, RASH, 06/14/16) Medications Current Inpatient Medications Medications (Trade) Dose Ordered Sig/Duyen Route Start Time Stop Time Status Last Admin Dose Admin Acetaminophen (Tylenol Tab) 650 mg Q4H PRN PO 06/14/16 14:00 07/14/16 13:59 06/15/16 13:46 650 MG Ondansetron HCl (Zofran Inj) 4 mg Q6H PRN IV 06/14/16 14:00 07/14/16 13:59 Atorvastatin Calcium (Lipitor Tab) 40 mg DAILY PO 06/15/16 09:00 07/15/16 08:59 06/20/16 07:39 40 MG Salmeterol Xinafoate/ Fluticasone (Advair Diskus 500/50 Inh) 1 puff BID INH 06/14/16 21:00 07/14/16 20:59 06/20/16 07:40 1 PUFF Metoprolol Succinate (Toprol Xl Tab) 150 mg DAILY PO 06/15/16 09:00 07/15/16 08:59 Future Hold Prednisone (PredniSONE TAB) 15 mg QAM PO 06/15/16 09:00 07/15/16 08:59 Future Hold 06/16/16 08:40 15 MG Pregabalin (Lyrica Cap) 150 mg TID PO 06/14/16 14:00 07/14/16 13:59 06/20/16 07:39 150 MG Verapamil HCl (Calan-Sr Tab) 240 mg DAILY PO 06/15/16 09:00 07/15/16 08:59 06/20/16 07:39 240 MG Metoprolol Tartrate (Lopressor Iv) 5 mg Q6 IV. 06/14/16 18:00 07/14/16 17:59 06/20/16 06:21 5 MG Hydralazine HCl (HydrALAZINE INJ) 10 mg Q6H PRN IV. 06/14/16 14:00 07/14/16 13:59 Heparin Sodium (Porcine) (Heparin Sq 5000 Unit/0.5ml) 5,000 unit Q8 SQ 06/14/16 22:00 07/14/16 21:59 06/20/16 06:18 5,000 UNIT Miscellaneous Information (Consult Glycemic Management Pharmacy) 1 ea UD PRN N/A 06/14/16 15:34 07/14/16 15:33 Nystatin (Mycostatin Oint) 1 appln TID EXT 06/14/16 21:00 07/14/16 20:59 06/20/16 07:43 1 APPLN Tiotropium [place] (Spiriva Handihaler Inhaler) 1 puff DAILY INH 06/15/16 09:00 07/15/16 08:59 06/20/16 08:24 1 PUFF Glucose (Glucose 40% Gel) 15-30 GRAMS 15 GRAMS... UD PRN PO 06/14/16 17:00 07/14/16 16:59 Glucose (Glucose Chew Tab) 4-8 Tablets 4 Tabl... UD PRN PO 06/14/16 17:00 07/14/16 16:59 Dextrose (Dextrose 50% 50ML Syringe) 25-50ML OF 50% DW IV FOR... UD PRN IV 06/14/16 17:00 07/14/16 16:59 Glucagon (Glucagon Inj) 1 mg UD PRN SQ 06/14/16 17:00 07/14/16 16:59 Acetaminophen/ Hydrocodone Bitart ([place] 5/325 Tab) prn TID PRN PO 06/15/16 09:45 06/29/16 09:44 06/17/16 21:59 1 TAB Albuterol/ Ipratropium (Duoneb) 3 ml QIDR INH 06/16/16 16:00 07/16/16 15:59 06/20/16 07:32 3 ML Albuterol/ Ipratropium (Duoneb) 3 ml Q2H PRN INH 06/16/16 14:45 07/16/16 14:44 Insulin Glargine (Lantus Vial) 70 unit BID SC 06/17/16 16:45 07/17/16 16:44 06/20/16 08:20 70 UNIT Insulin Aspart (novoLOG ASPART) SLIDING SCALE G... ACHS SC 06/17/16 16:15 07/17/16 16:14 06/20/16 08:34 20 UNITS Insulin Aspart (novoLOG ASPART) SLIDING SCALE G... 0000,0400 SD 06/18/16 00:00 07/18/16 00:00 06/20/16 04:20 12 UNITS Doxycycline Hyclate (Vibramycin Cap) 100 mg BID PO 06/18/16 20:00 06/24/16 23:59 06/20/16 07:40 100 MG Cephalexin Monohydrate (Keflex Cap) 500 mg TID PO 06/18/16 14:00 06/28/16 13:59 06/20/16 07:39 500 MG Prednisone (PredniSONE TAB) 40 mg DAILY PO 06/19/16 08:00 07/19/16 08:59 06/20/16 07:39 40 MG Miconazole Nitrate 1 appln 1 appln PRN PRN EXT 06/18/16 23:15 07/18/16 23:14 Furosemide/Syringe (Lasix Inj/ Syringe) 4 ml @ 4 mls/min BID17 IV 06/19/16 20:00 07/19/16 19:59 06/20/16 07:43 4 MLS/MIN Hydromorphone HCl (Dilaudid Inj) 1 mg Q4H PRN IV 06/19/16 12:15 07/03/16 12:14 06/20/16 01:04 1 MG Impression (1) Obesity hypoventilation syndrome (2) Respiratory failure with hypercapnia (3) CO2 narcosis (4) Hypercalcemia (5) Pulmonary nodules (6) Chronic kidney disease (CKD) stage G3b/A1, moderately decreased glomerular filtration rate (GFR) between 30-44 mL/min/1.73 square meter and albuminuria creatinine ratio less than 30 mg/g Patient admitted to the hospital for evaluation respiratory failure w/ CO2 narcosis and hypercalcemia. Her medical history is significant for stage III CKD (baseline creatinine 1.7 - 2.0), HTN, obesity (BMI 56) and obesity hypoventilation syndrome. In October 2014 she had an echocardiogram performed which revealed LVEF 55 - 60%, mild LVH, RVSP 45, mild RV dilation and moderate TR. She was hospitalized 05/16 w/ CHF and cellulitis. As an outpatient she has developed progressive volume overload requiring the addition of Metolazone to her regular diuretic regimen. She responded well and lost 7 kg fluid weight in one week. She unfortunately developed progressive weakness and is now admitted with respiratory failure, severe hypercarbia and hypercalcemia. Preliminary evaluation of hypercalcemia reveals normal thyroid function, low PTH, normal vitamin D and alkaline phosphatase level. Serum RAMIRO level, serum free light chains, PTHrp and Vitamin A levels are pending. PMH - CKD w/ baseline creatinine 1.7 - 2.0, HTN, AODM, BMI > 50, COPD (home O2 at 3 L / min ATC), lung nodule, RA of hands, cor pulmonale (Echo 11/14: LVEF 55 - 60%, mild LVH, RVSP 45, mild RV dilation and moderate TR) Recommendations HYPERCALCEMIA: -- Metolazone has been stopped -- Calcitonin and Zometa were given upon admission. Serum calcium is improved to 10.0 -- TSH, T4, alkaline phosphatase, vitamin D level, serum RAMIRO level are within normal limits. PTH is appropriately suppressed -- Await balance of hypercalcemia evaluation (PTHrp and Vitamin A level are pending as of 06/20/16) -- UEP c/w monoclonal protein. Serum free light chains is markedly elevated. Oncology recommendations have been reviewed today. 24 hour urine studies are in progress. They are suggesting outpatient follow up. -- Will transition to oral Bumex and titrate dose if needed. Monitor I&O's GUNNAR: -- Resolved CKD: -- Baseline creatinine has been 1.7 - 2.0 EDEMA: -- Will transition to Bumex 3 mg po BID and monitor volume status & UO closely -- Will request skin care RN to assess patient for lymphedema therapy and leg wraps PULM: -- Obesity hypoventilation syndrome -- Presented to hospital w/ severe hypercapnia -- 06/18/16 Pulmonolgy recommendations reviewed. Continue CPAP. Patient is on Doxycycline and bronchodilators are being adjusted ID: -- CXR w/ possible right basilar infiltrate -- On Ceftriaxone and Doxycycline -- Urine culture + for E. Coli sensitive to Ceftriaxone OTHER: -- Continue physical therapy for strengthening.
[2016-06-20] MEDS ORDERED: INSULIN GLARGINE SC ONE (12:30)
--- NOTE | 2016-06-20 12:46 | Pharmacy Progress Note ---
Glycemic Control: Progress Nt Date of Service Jun 20, 2016. Scope Glycemic Pharmacist consulted by [facility] on 06/14/16 for glycemic control and to write orders per LT[facility], [facility] inpatient glycemic control protocol. Objective Accuchecks BSG (last 24hrs): Test 06/19/16 16:36 06/19/16 20:14 06/20/16 00:09 06/20/16 04:15 Bedside Glucose 244 mg/dl (70-90) 273 mg/dl (70-90) 249 mg/dl (70-90) 218 mg/dl (70-90) Test 06/20/16 05:10 06/20/16 07:54 06/20/16 11:47 06/20/16 12:09 Random Glucose 183 mg/dl (70-99) Bedside Glucose 176 mg/dl (70-90) 308 mg/dl (70-90) 328 mg/dl (70-90) Laboratory Data (last 24hrs) Test 06/20/16 05:10 Anion Gap 3.0 mmol/L BUN/Creatinine Ratio 33.9 Blood Urea Nitrogen 74 mg/dl Creatinine 2.20 mg/dl Potassium Level 3.6 mmol/L Sodium Level 135 mmol/L White Blood Count 10.18 K/uL Red Blood Count 3.31 M/uL Hemoglobin 10.3 g/dL Hematocrit 32.2 % Mean Corpuscular Volume 97.3 fL Mean Corpuscular Hemoglobin 31.1 pg Mean Corpuscular Hemoglobin Concent 32.0 g/dl Platelet Count 201 K/uL Mean Platelet Volume 10.5 fL Neutrophils (%) (Auto) 81.6 % Lymphocytes (%) (Auto) 7.9 % Monocytes (%) (Auto) 8.4 % Eosinophils (%) (Auto) 0.6 % Basophils (%) (Auto) 0.2 % Neutrophils # (Auto) 8.31 K/uL Lymphocytes # (Auto) 0.80 K/uL Monocytes # (Auto) 0.86 K/uL Eosinophils # (Auto) 0.06 K/uL Basophils # (Auto) 0.02 K/uL HbA1c: 6.3% 05/20/16 Recent Pertinent Medications Outpatient Anti-diabetic Regimen: * Toujeo 70 units TID * Novolog 50 units w/ breakfast + 50 units w/ lunch + 90 units w/ dinner + 40 units at bedtime * Also on Prednisone 15mg daily * A1c = 6.3 % 05/20/16 The patient is currently receiving: * Basal insulin: Lantus 70 units every 12 hours * Correctional Insulin: Novolog Correction per scale ACHS Goal Range: Low 120 mg/dL - High 160 mg/dL Correction Factor: 5 mg/dL/unit * Prandial insulin: Per carb ratio of 1 unit per 2 grams CHO consumed * Oral Agents: None currently Risk Factors for Insulin Resistance: * Steroids: Prednisone 40mg PO daily * Infection: ordered Keflex + Doxycycline PO for cellulitis * Pressors: n/a * IVF: being diuresed * Recent Surgery: n/a * Diet: ordered T2DM diet and tolerating well * Mechanical Ventilation: n/a Assessment & Plan ASSESSMENT: 06/18/16 * 60 y/o F admitted with a fall and hypercarbic respiratory failure. She is well -known to the glycemic control service. The patient is well controlled on her home regimen. HOWEVER, according to previous information, it is necessary to reduce the patient's insulin dosing. * Patient required 263 units over the past 24 hours with half coming from basal insulin. A tighter carbohydrate ratio was utilized for lunch because the patient remained on IV steroids with a normal diet and a large jump from 169 mg/ dL fasting to 248 mg/dL prior to lunch. * Diet is advanced to type 2 diabetic diet with hydrocortisone 50 mg IV q8 changed to prednisone 40 mg po daily starting 06/20/16. Will continue the same regimen as previous data has shown that on oral steroids this maintains acceptable blood sugars 06/20/16 * Over the last 24 hrs BSG have ranged 176-308 and she has received 296 units of SQ insulin while tolerating a diet * The current BSG pattern suggests both basal and prandial insulin deficiency * I will give a supplemental dose of Lantus x 1 w/ lunch today to help control hyperglycemia; she may require a higher basal insulin dose while on the current Prednisone dose. I believe there is still some room to titrate up if needed. Will reeval basal needs tomorrow * CF and CR did not successfully lower post-prandial BSGs yesterday although they did prevent a rapid climb in BSG. I had increased these doses this AM, however the RN may not have seen my changes as they were made this AM near breakfast time. PLAN FOR INPATIENT GLYCEMIC CONTROL: * Continuing Lantus 70 units SQ BID; however give a supplemental 20 units dose x 1 w/ lunch; re-eval needs tomorrow * Changing correction factor to 4 mg/dl/unit * Changing carb ratio to 1 unit per 1.5 grams CHO consumed * Changing goal range to Low 120 mg/dL - High 150 mg/dL RECOMMENDATIONS FOR DISCHARGE: * * Please note that the plan above was derived based on current level of insulin resistance and hospital stress. These recommendations are appropriate for inpatient admission only. Plan of care upon discharge will need to be reassessed to avoid potential outpatient hypo/hyperglycemia. Thank you.
--- NOTE | 2016-06-20 13:19 | PULMONARY PROGRESS NOTE ---
DATE: 06/20/2016 TIME: 1:00 p.m. SUBJECTIVE: The patient is doing well. She is not noticing any particular shortness of breath. Her alertness is good. She is still fairly weak when trying to ambulate. Respiratory schumacher however, she has been very stable. Her was with her during this evaluation. OBJECTIVE: GENERAL: The patient appears comfortable. VITAL SIGNS: Temperature is 36.8. HEENT: She continues to have some ptosis of the right eye. HEART: Heart rate was 80 per minute. The rhythm was regular. Blood pressure 162/75. CHEST: Respiratory rate was 16 breaths per minute and not labored. LUNGS: Lung rain revealed diminished breath sounds but were otherwise clear. Saturation was 94% on 3 liters. ABDOMEN: Markedly obese. EXTREMITIES: She continues with edema on the dorsum of the feet. She states she cannot get shoes to fit her properly. LABORATORY DATA: White count today is 10.18. Hemoglobin 10.3. Platelets are 201,000. Electrolytes show sodium 135, potassium 3.6, chloride 91, bicarbonate 41. BUN was 74 with a creatinine of 2.2. IMPRESSIONS: 1. Respiratory failure - acute on chronic with both hypercarbia and hypoxia. 2. Obesity hypoventilation syndrome. 3. Obstructive sleep apnea. 4. Chronic obstructive pulmonary disease. 5. Hypercalcemia - improved. 6. Status post fall. COMMENTS: The patient respiratory schumacher seems stable as she is going to be. I believe the steroids can be cut back. Will decrease to 30 mg. I will see the patient again only if specifically requested. Thank you for asking me to assist in her care.
--- NOTE | 2016-06-20 14:37 | Hospitalist Progress Note ---
Hospitalist Progress Note Date of Service Jun 20, 2016. (Maegan Patel PA-C) Subjective Pt evaluation today including: conversation w/ patient, conversation w/ family , physical exam, chart review, lab review, conversation w/ sales consultant, review of inpatient medication list Overall feeling much better. Still notes swelling in her lower extremities. Some difficulty moving around. Denies any shortness of breath. Back pain is also improved. No chest pain or pressure. No problems moving her bowels. Additional Comments: 6 system review negative. Please see pertinent positives in the history of present illness section. (Maegan Patel PA-C) Objective Vital Signs Date Time Temp Pulse Resp B/P Pulse Ox O2 Delivery O2 Flow Rate FiO2 06/20/16 13:32 86 157/82 06/20/16 11:32 83 14 94 Nasal Cannula 3.0 06/20/16 08:00 Nasal Cannula 3.0 Humidified Oxygen 06/20/16 07:34 36.8 80 20 162/75 98 Nasal Cannula 3.0 06/20/16 07:15 85 14 96 Nasal Cannula 3.0 06/20/16 06:21 87 163/82 06/20/16 06:20 87 163/82 06/20/16 00:30 Nasal Cannula 3.0 06/20/16 00:21 36.7 91 18 121/73 94 Nasal Cannula 3.0 06/20/16 00:11 91 121/73 06/19/16 19:54 95 14 95 Nasal Cannula 3.0 06/19/16 17:55 108 173/90 06/19/16 16:12 37.1 98 18 148/65 91 Nasal Cannula 3.0 06/19/16 16:00 Nasal Cannula 3.0 06/19/16 15:16 97 88 06/19/16 15:16 101 18 91 Nasal Cannula 3.0 (Maegan Patel PA-C) Physical Exam General Appearance: no apparent distress Eyes: EOMI ENT: + pertinent finding (oral mucosa slightly dry.) Neck: no JVD Respiratory/Chest: + pertinent finding (minimally diminished breath sounds at the bases bilaterally. No significant wheezing auscultated.) Cardiovascular: regular rate, rhythm Abdomen: normal bowel sounds, non tender, soft Extremities: + pertinent finding (no significant improvement in pitting edema in the lower extremities right greater than left. Some erythema and warmth appreciated. This is however unchanged.) 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: no motor/sensory deficits, oriented x 3 Skin: warm/dry (Maegan Patel PA-C) Laboratory Results 06/20/16 05:10 Red Blood Count 3.31, Mean Corpuscular Volume 97.3, Mean Corpuscular Hemoglobin 31.1, Mean Corpuscular Hemoglobin Concent 32.0, Mean Platelet Volume 10.5, Neutrophils (%) (Auto) 81.6, Lymphocytes (%) (Auto) 7.9, Monocytes (%) (Auto) 8.4, Eosinophils (%) (Auto) 0.6, Basophils (%) (Auto) 0.2, Neutrophils # (Auto) 8.31, Lymphocytes # (Auto) 0.80, Monocytes # (Auto) 0.86, Eosinophils # (Auto) 0.06, Basophils # (Auto) 0.02 06/20/16 05:10 Test 06/19/16 16:00 06/19/16 16:49 06/20/16 05:10 06/20/16 12:09 White Blood Count 10.18 K/uL (4.8-10.8) Red Blood Count 3.31 M/uL (4.2-5.4) Hemoglobin 10.3 g/dL (12.0-16.0) Hematocrit 32.2 % (37-47) Mean Corpuscular Volume 97.3 fL (80-100) Mean Corpuscular Hemoglobin 31.1 pg (25-34) Mean Corpuscular Hemoglobin Concent 32.0 g/dl (32-36) Platelet Count 201 K/uL (130-400) Mean Platelet Volume 10.5 fL (7.4-10.4) Neutrophils (%) (Auto) 81.6 % Lymphocytes (%) (Auto) 7.9 % Monocytes (%) (Auto) 8.4 % Eosinophils (%) (Auto) 0.6 % Basophils (%) (Auto) 0.2 % Neutrophils # (Auto) 8.31 K/uL (1.4-6.5) Lymphocytes # (Auto) 0.80 K/uL (1.2-3.4) Monocytes # (Auto) 0.86 K/uL (0.11-0.59) Eosinophils # (Auto) 0.06 K/uL (0-0.5) Basophils # (Auto) 0.02 K/uL (0-0.2) RDW Standard Deviation 66.7 fL (36.4-46.3) RDW Coefficient of Variation 18.7 % (11.5-14.5) Immature Granulocyte % (Auto) 1.3 % Immature Granulocyte # (Auto) 0.13 K/uL (0.00-0.02) Nucleated RBC Absolute Count (auto) 0.20 K/uL (0-0) Nucleated Red Blood Cells % 2.0 % Red Blood Cell Morphology Unremarkable Anion Gap 3.0 mmol/L (3-11) Est Creatinine Clear Calc Drug Dose 38.0 ml/min Estimated GFR () 27.0 Estimated GFR (Non- 23.3 BUN/Creatinine Ratio 33.9 (10-20) Calcium Level 10.0 mg/dl (8.5-10.1) Bedside Glucose 328 mg/dl (70-90) Last 24 Hours Test 06/19/16 16:00 06/19/16 16:36 06/19/16 16:49 06/19/16 20:14 Bedside Glucose 244 mg/dl 273 mg/dl Test 06/20/16 00:09 06/20/16 04:15 06/20/16 05:10 06/20/16 07:54 Bedside Glucose 249 mg/dl 218 mg/dl 176 mg/dl White Blood Count 10.18 K/uL Red Blood Count 3.31 M/uL Hemoglobin 10.3 g/dL Hematocrit 32.2 % Mean Corpuscular Volume 97.3 fL Mean Corpuscular Hemoglobin 31.1 pg Mean Corpuscular Hemoglobin Concent 32.0 g/dl Platelet Count 201 K/uL Mean Platelet Volume 10.5 fL Neutrophils (%) (Auto) 81.6 % Lymphocytes (%) (Auto) 7.9 % Monocytes (%) (Auto) 8.4 % Eosinophils (%) (Auto) 0.6 % Basophils (%) (Auto) 0.2 % Neutrophils # (Auto) 8.31 K/uL Lymphocytes # (Auto) 0.80 K/uL Monocytes # (Auto) 0.86 K/uL Eosinophils # (Auto) 0.06 K/uL Basophils # (Auto) 0.02 K/uL RDW Standard Deviation 66.7 fL RDW Coefficient of Variation 18.7 % Immature Granulocyte % (Auto) 1.3 % Immature Granulocyte # (Auto) 0.13 K/uL Nucleated RBC Absolute Count (auto) 0.20 K/uL Nucleated Red Blood Cells % 2.0 % Red Blood Cell Morphology Unremarkable Sodium Level 135 mmol/L Potassium Level 3.6 mmol/L Chloride Level 91 mmol/L Carbon Dioxide Level 41 mmol/L Anion Gap 3.0 mmol/L Blood Urea Nitrogen 74 mg/dl Creatinine 2.20 mg/dl Est Creatinine Clear Calc Drug Dose 38.0 ml/min Estimated GFR () 27.0 Estimated GFR (Non- 23.3 BUN/Creatinine Ratio 33.9 Random Glucose 183 mg/dl Calcium Level 10.0 mg/dl Test 06/20/16 11:47 06/20/16 12:09 Bedside Glucose 308 mg/dl 328 mg/dl (Maegan Patel, PAKadeemC) Assessment and Plan 60-year-old female with a history of morbid obesity, COPD, chronic diastolic heart failure presents emergency department with altered mental status and frequent falls. Found to be in hypercapnic respiratory failure with an elevated calcium Metabolic encephalopathy likely multifactorial, carbon dioxide retention, acute on chronic kidney failure, hypercalcemia Acute on chronic hypercapnic respiratory failure/morbid obesity hypoventilation syndrome/diastolic HF-pt now at baseline -Continue Trilogy at night per pulmonary recommendations -IV lasix changed to Bumex 3 mg po BID today -Continue to strictly follow I's and O's Hypercalcemia in the setting of monoclonal gammopathy-Improved. ? Secondary to malignancy versus sarcoidosis. Worrisome for malignancy -needs oncology f/u Cellulitis, UTI -Continue doxycycline po BID and Keflex 500 mg po TID. Doxy should stay on until ID follow up. Keflex done 06/23 -Wound consult for possible lymphedema wrapping COPD-no wheezing on exam -Continue Spiriva and Advair -Decrease prednisone to 30 mg daily diabetes mellitus -Pharmacy managing Acute on chronic renal failure- -Nephrology following DVT prophylaxis -Heparin 5000 u subQ tid -TEDS, SCDs CODE STATUS Discussed with patient's , okay CPR shock but DO NOT INTUBATE DISPO -Will likely need 24-48 hours of further inpatient care This chart was completed in part utilizing [employer] Voice Recognition software. Attempts were made to minimize the grammatical errors, random word insertions, pronoun errors and incomplete sentences. Any formal questions or concerns about the content, text or information contained within the body of this dictation should be directly addressed to the provider for clarification. (Maegan Patel, PAKadeemC) Attending Attestation: Pt seen/examined, chart reviewed, care plan d/w PA Maegan Patel. I agree w/ the lewis components of her documentation. Pt w/ no complaints today except her LE edema. Has baseline edema but this is much worse than typical. Office records reviewed - typically weighs high 320s/low 330s. She is 319 pounds today. VSS afebrile gen - nad, obese neck - cannot appreciate JVD due to large neck size heart - RRR lungs - CTA b/l abd - soft, obese ext - 3+ edema (lymphedema) with chronic stasis changes, scale, and even some areas of bubbling of the skin A/P: acute/chronic hypoxic/hypercapneic respiratory failure UTI CKD stage 3 lymphedema b/l legs hypercalcemia - resolved; PTH level normal; worrisome for underlying malignancy SPEP with M-spike; in the setting of hypercalcemia this is concerning for multiple myeloma T2DM, uncontrolled COPD with exacerbation - improving; weaning prednisone IV diuretics converted to PO diuretics today d/c fernandez dispo - home with HH maybe tomorrow ?? Rahat Hall MD (Rahat Hall MD)
[2016-06-20 16:45] LABS: ALBUMIN 3.2 G/DL (3.8-4.8); GAMMA GLOBULIN 2.9 G/DL (0.8-1.7); MONOCLONAL PROTEIN BAND 1 2.6 G/DL (NOT DETECTED); TOTAL PROTEIN 8.5 G/DL (6.2-8.3)
[2016-06-20] MEDS: BUMETANIDE 1 MG TAB PO SCH (17:05)
[2016-06-21] VITALS (8 sets, daily range): BP systolic 151–166; BP diastolic 65–82; PULSE 86–103; TEMP 36.4–36.8; O2SAT 92–96
[2016-06-21] MEDS: METOPROLOL TARTRATE 1 MG/ML VIAL IV. SCH ×5 (00:40→23:50)
[2016-06-21] MEDS: HYDROmorphone INJ 1 MG/ML SYR IV PRN (00:49)
[2016-06-21] MEDS ORDERED: INSULIN ASPART 100 UNITS/ML 3 ML PEN SC ONE (02:00)
[2016-06-21] MEDS: INSULIN ASPART 100 UNITS/ML VIAL SC SCH ×7 (04:00→20:58)
[2016-06-21] MEDS: HEPARIN SOD 5000 UNIT/0.5 ML CARP SQ SCH ×3 (05:38→21:42)
[2016-06-21 06:30] LABS: BUN/CREATININE RATIO 35.8 (10-20); CALCIUM 9.5 mg/dl (8.5-10.1); CREATININE 2.2 mg/dl (0.60-1.20); POTASSIUM 3.5 mmol/L (3.5-5.1)
[2016-06-21] MEDS: ALBUT/IPRATROP 3MG/0.5MG NEB 3 ML VIAL INH SCH ×4 (07:43→19:35)
[2016-06-21] MEDS: PREGABALIN 150 MG CAP PO SCH ×3 (07:45→20:53)
[2016-06-21] MEDS: BUMETANIDE 1 MG TAB PO SCH ×2 (07:46→17:58)
[2016-06-21] MEDS: CEPHALEXIN MONOHYDRATE 500 MG CAP PO SCH ×3 (07:46→20:55)
[2016-06-21] MEDS: FLUTICASONE/SALMETEROL (ADVAIR) 500/50 INH 14 PUFF INH SCH ×2 (07:46→20:54)
[2016-06-21] MEDS: ATORVASTATIN 40 MG TAB PO SCH (07:47)
[2016-06-21] MEDS: DOXYCYCLINE HYCLATE 100 MG CAP PO SCH ×2 (07:47→20:55)
[2016-06-21] MEDS: VERAPAMIL HCL 240 MG TABCR PO SCH (07:47)
[2016-06-21] MEDS: TIOTROPIUM BROMIDE 5 PUFF/90 MCG INH INH SCH (07:48)
[2016-06-21] MEDS: NYSTATIN OINT 15 GM TUBE EXT SCH ×3 (07:48→20:54)
[2016-06-21] MEDS: INSULIN GLARGINE SC SCH ×2 (08:14→20:56)
--- NOTE | 2016-06-21 09:12 | Pharmacy Progress Note ---
Glycemic Control: Progress Nt Date of Service Jun 21, 2016. Scope Glycemic Pharmacist consulted by AMARILIS Rockwell on 06/14 for glycemic control and to write orders per [facility] inpatient glycemic control protocol. Objective Accuchecks BSG (last 24hrs): Test 06/20/16 11:47 06/20/16 12:09 06/20/16 16:32 06/20/16 20:05 Bedside Glucose 308 mg/dl (70-90) 328 mg/dl (70-90) 373 mg/dl (70-90) 295 mg/dl (70-90) Test 06/21/16 00:33 06/21/16 04:51 06/21/16 05:15 06/21/16 08:00 Bedside Glucose 156 mg/dl (70-90) 190 mg/dl (70-90) 162 mg/dl (70-90) Random Glucose 188 mg/dl (70-99) Laboratory Data (last 24hrs) Test 06/21/16 05:15 Anion Gap 3.0 mmol/L BUN/Creatinine Ratio 35.8 Blood Urea Nitrogen 79 mg/dl Creatinine 2.20 mg/dl Potassium Level 3.5 mmol/L Sodium Level 135 mmol/L Recent Pertinent Medications Outpatient Anti-diabetic Regimen: * Toujeo 70 units TID * Novolog 50 units w/ breakfast + 50 units w/ lunch + 90 units w/ dinner + 40 units at bedtime * Also on Prednisone 15mg daily * A1c = 6.3 % 05/20/16 The patient is currently receiving: * Basal insulin: Lantus 70 units every 12 hours + 20 additional units given yesterday * Correctional Insulin: Novolog Correction per scale ACHS Goal Range: Low 120 mg/dL - High 150 mg/dL Correction Factor: 4 mg/dL/unit * Prandial insulin: Per carb ratio of 1 unit per 1.5 grams CHO consumed * Oral Agents: None currently Risk Factors for Insulin Resistance: * Steroids: Prednisone decreased from 40 mg daily -> 30 mg daily * Infection: ordered Keflex + Doxycycline PO for cellulitis * Diet: ordered T2DM diet and tolerating well Assessment & Plan ASSESSMENT: 06/20/16 * Over the last 24 hrs BSG have ranged 176-308 and she has received 296 units of SQ insulin while tolerating a diet * The current BSG pattern suggests both basal and prandial insulin deficiency * I will give a supplemental dose of Lantus x 1 w/ lunch today to help control hyperglycemia; she may require a higher basal insulin dose while on the current Prednisone dose. I believe there is still some room to titrate up if needed. Will reeval basal needs tomorrow * CF and CR did not successfully lower post-prandial BSGs yesterday although they did prevent a rapid climb in BSG. I had increased these doses this AM, however the RN may not have seen my changes as they were made this AM near breakfast time. 06/21/16 * Patient rec'd 416 units of insulin yesterday with BSGs finally improving as of this AM * Prednisone has been decreased this AM so I expect insulin requirements to decrease * She rec'd addl dose of Lantus yesterday that she will not receive today so will continue w/ current BID dose * May need to loosen CF/CR eventually but will continue w/ current order since BSGs were still elevated yesterday with this PLAN FOR INPATIENT GLYCEMIC CONTROL: * Continue Lantus 70 units BID * Continue Novolog ACHS * Goal 120-150 * CF 4 * CR 1.5 * Please note that the plan above was derived based on current level of insulin resistance and hospital stress. These recommendations are appropriate for inpatient admission only. Plan of care upon discharge will need to be reassessed to avoid potential outpatient hypo/hyperglycemia. Thank you.
--- NOTE | 2016-06-21 13:23 | Nephrology Progress Note ---
Nephrology Progress Note Date of Service Jun 21, 2016. Chief Complaint Follow-up for CKD, hypercalcemia and diuretic resistant lower extremity edema. Subjective Jazmin was seen and examined in her room with her at bedside. She overall feels well but lower extremity edema continues to be significant. Renal function stable of, creatinine staying around 2.2, calcium improved to 9.5. She responds to diuretics and has been net negative more than a liter but still no significant change anal lower extremity edema. Review of Systems A complete review of systems was performed. Pertinent positives are noted above. All other systems are negative. Vital Signs Last 8 Hrs Date Time Temp Pulse Resp B/P Pulse Ox O2 Delivery O2 Flow Rate FiO2 06/21/16 12:16 98 164/76 06/21/16 11:37 89 14 94 Nasal Cannula 3.0 06/21/16 08:00 Nasal Cannula 3.0 Humidified Oxygen 06/21/16 07:49 36.4 90 20 156/80 92 3.0 06/21/16 07:43 86 14 95 Nasal Cannula 3.0 06/21/16 05:34 90 132/87 I & O 24-Hour Column 06/21/16 08:00 Intake Total 750 ml Output Total 2175 ml Balance -1425 ml Last Recorded Weight Weight (Kilograms): 145.000 Physical Exam GENERAL: Middle-aged female, AAA x 3, pleasant, morbidly obese, not in any distress. NECK: Supple, no JVD. RESPIRATORY: Normal breathing efforts, no accessory muscle use, clear to auscultation bilaterally, no wheezes or rales. CARDIOVASCULAR: S1, S2 normal, rate rhythm regular. EXTREMITY: 3+ bilateral lower extremity edema NEURO: speech fluent. PSYCHIATRY: Normal mood and judgment Family History Cancer Diabetes mellitus Gallbladder disease Heart disease Lung disease Negative for CKD/ESRD Social History Smoking Status: Former smoker Alcohol Use: none Drug Use: none Marital Status: Housing Status: lives with family Occupation: unemployed . Lives with . Remote h/o tobacco use. Laboratory Results Past 24 Hours 06/21/16 05:15 Test 06/20/16 16:32 06/20/16 20:05 06/21/16 00:33 06/21/16 04:51 Bedside Glucose 373 mg/dl (70-90) 295 mg/dl (70-90) 156 mg/dl (70-90) 190 mg/dl (70-90) Test 06/21/16 05:15 06/21/16 08:00 06/21/16 11:25 Anion Gap 3.0 mmol/L (3-11) Est Creatinine Clear Calc Drug Dose 38.0 ml/min Estimated GFR () 27.0 Estimated GFR (Non- 23.3 BUN/Creatinine Ratio 35.8 (10-20) Calcium Level 9.5 mg/dl (8.5-10.1) Chemistry Specimen Hemolysis Bedside Glucose 162 mg/dl (70-90) 204 mg/dl (70-90) Allergies Coded Allergies: Daptomycin (Verified Allergy, Mild, HIVES, 06/14/16) itching Codeine (Verified Allergy, Unknown, unknown, 06/14/16) has tolerated morphine Iodine (Verified Allergy, Unknown, 06/14/16) Shellfish (Verified Allergy, Unknown, 06/14/16) Sulfamethoxazole w/Trimethoprim (Verified Allergy, Unknown, RASH, 06/14/16) Medications Current Inpatient Medications Medications (Trade) Dose Ordered Sig/Duyen Route Start Time Stop Time Status Last Admin Dose Admin Acetaminophen (Tylenol Tab) 650 mg Q4H PRN PO 06/14/16 14:00 07/14/16 13:59 06/15/16 13:46 650 MG Ondansetron HCl (Zofran Inj) 4 mg Q6H PRN IV 06/14/16 14:00 07/14/16 13:59 Atorvastatin Calcium (Lipitor Tab) 40 mg DAILY PO 06/15/16 09:00 07/15/16 08:59 06/21/16 07:47 40 MG Salmeterol Xinafoate/ Fluticasone (Advair Diskus 500/50 Inh) 1 puff BID INH 06/14/16 21:00 07/14/16 20:59 06/21/16 07:46 1 PUFF Metoprolol Succinate (Toprol Xl Tab) 150 mg DAILY PO 06/15/16 09:00 07/15/16 08:59 Future Hold Prednisone (PredniSONE TAB) 15 mg QAM PO 06/15/16 09:00 07/15/16 08:59 Future Hold 06/16/16 08:40 15 MG Pregabalin (Lyrica Cap) 150 mg TID PO 06/14/16 14:00 07/14/16 13:59 06/21/16 07:45 150 MG Verapamil HCl (Calan-Sr Tab) 240 mg DAILY PO 06/15/16 09:00 07/15/16 08:59 06/21/16 07:47 240 MG Metoprolol Tartrate (Lopressor Iv) 5 mg Q6 IV. 06/14/16 18:00 07/14/16 17:59 06/21/16 12:16 5 MG Hydralazine HCl (HydrALAZINE INJ) 10 mg Q6H PRN IV. 06/14/16 14:00 07/14/16 13:59 Heparin Sodium (Porcine) (Heparin Sq 5000 Unit/0.5ml) 5,000 unit Q8 SQ 06/14/16 22:00 07/14/16 21:59 06/21/16 05:38 5,000 UNIT Miscellaneous Information (Consult Glycemic Management Pharmacy) 1 ea UD PRN N/A 06/14/16 15:34 07/14/16 15:33 Nystatin (Mycostatin Oint) 1 appln TID EXT 06/14/16 21:00 07/14/16 20:59 06/21/16 07:48 1 APPLN Tiotropium [place] (Spiriva Handihaler Inhaler) 1 puff DAILY INH 06/15/16 09:00 07/15/16 08:59 06/21/16 07:48 1 PUFF Glucose (Glucose 40% Gel) 15-30 GRAMS 15 GRAMS... UD PRN PO 06/14/16 17:00 07/14/16 16:59 Glucose (Glucose Chew Tab) 4-8 Tablets 4 Tabl... UD PRN PO 06/14/16 17:00 07/14/16 16:59 Dextrose (Dextrose 50% 50ML Syringe) 25-50ML OF 50% DW IV FOR... UD PRN IV 06/14/16 17:00 07/14/16 16:59 Glucagon (Glucagon Inj) 1 mg UD PRN SQ 06/14/16 17:00 07/14/16 16:59 Acetaminophen/ Hydrocodone Bitart (Marston 5/325 Tab) prn TID PRN PO 06/15/16 09:45 06/29/16 09:44 06/17/16 21:59 1 TAB Albuterol/ Ipratropium (Duoneb) 3 ml QIDR INH 06/16/16 16:00 07/16/16 15:59 06/21/16 11:37 3 ML Albuterol/ Ipratropium (Duoneb) 3 ml Q2H PRN INH 06/16/16 14:45 07/16/16 14:44 Insulin Glargine (Lantus Vial) 70 unit BID SC 06/17/16 16:45 07/17/16 16:44 06/21/16 08:14 70 UNIT Doxycycline Hyclate (Vibramycin Cap) 100 mg BID PO 06/18/16 20:00 06/24/16 23:59 06/21/16 07:47 100 MG Cephalexin Monohydrate (Keflex Cap) 500 mg TID PO 06/18/16 14:00 06/28/16 13:59 06/21/16 07:46 500 MG Miconazole Nitrate (Desenex Powder) 1 appln PRN PRN EXT 06/18/16 23:15 07/18/16 23:14 06/20/16 20:24 1 APPLN Bumetanide (Bumex Tab) 3 mg BID17 PO 06/20/16 17:00 07/20/16 16:59 06/21/16 07:46 3 MG Prednisone (PredniSONE TAB) 30 mg DAILY PO 06/21/16 08:00 07/21/16 07:59 06/21/16 07:47 30 MG Insulin Aspart (novoLOG ASPART) SLIDING SCALE G... ACHS SC 06/21/16 06:30 07/21/16 06:29 06/21/16 12:13 56 UNITS Acetazolamide (Diamox Tab) 250 mg BID PO 06/21/16 20:00 07/21/16 19:59 UNV Impression (1) Obesity hypoventilation syndrome (2) Respiratory failure with hypercapnia (3) CO2 narcosis (4) Hypercalcemia (5) Pulmonary nodules (6) Chronic kidney disease (CKD) stage G3b/A1, moderately decreased glomerular filtration rate (GFR) between 30-44 mL/min/1.73 square meter and albuminuria creatinine ratio less than 30 mg/g Patient admitted to the hospital for evaluation respiratory failure w/ CO2 narcosis and hypercalcemia. Her medical history is significant for stage III CKD (baseline creatinine 1.7 - 2.0), HTN, obesity (BMI 56) and obesity hypoventilation syndrome. In October 2014 she had an echocardiogram performed which revealed LVEF 55 - 60%, mild LVH, RVSP 45, mild RV dilation and moderate TR. She was hospitalized 05/16 w/ CHF and cellulitis. As an outpatient she has developed progressive volume overload requiring the addition of Metolazone to her regular diuretic regimen. She responded well and lost 7 kg fluid weight in one week. She unfortunately developed progressive weakness and is now admitted with respiratory failure, severe hypercarbia and hypercalcemia. Preliminary evaluation of hypercalcemia reveals normal thyroid function, low PTH, normal vitamin D and alkaline phosphatase level. Serum RAMIRO level, serum free light chains, PTHrp and Vitamin A levels are pending. PMH - CKD w/ baseline creatinine 1.7 - 2.0, HTN, AODM, BMI > 50, COPD (home O2 at 3 L / min ATC), lung nodule, RA of hands, cor pulmonale (Echo 11/14: LVEF 55 - 60%, mild LVH, RVSP 45, mild RV dilation and moderate TR) Recommendations HYPERCALCEMIA: --calcium improved to 9.5 -- Calcitonin and Zometa were given upon admission. -- TSH, T4, alkaline phosphatase, vitamin D level, serum RAMIRO level are within normal limits. PTH is appropriately suppressed -- Await balance of hypercalcemia evaluation (PTHrp and Vitamin A level are pending as of 06/20/16) -- UEP c/w monoclonal protein. Serum free light chains is markedly elevated. Oncology recommendations have been reviewed today. 24 hour urine studies are in progress. They are suggesting outpatient follow up. # Metabolic alkalosis: With high dose diuretics and with underlying CO2 retention with obstructive sleep apnea --Start on Diamox 250 milligram orally twice a day GUNNAR: -- Resolved CKD: -- Baseline creatinine has been 1.7 - 2.0 EDEMA: -- continue on Bumex 3 mg po BID as patient continues to be net negative, if needed will increase to 3 times a day. -- Will request skin care RN to assess patient for lymphedema therapy and leg wraps PULM: -- Obesity hypoventilation syndrome -- Presented to hospital w/ severe hypercapnia -- 06/18/16 Pulmonolgy recommendations reviewed. Continue CPAP. Patient is on Doxycycline and bronchodilators are being adjusted ID: -- CXR w/ possible right basilar infiltrate -- On Ceftriaxone and Doxycycline -- Urine culture + for E. Coli sensitive to Ceftriaxone OTHER: -- Continue physical therapy for strengthening.
[2016-06-21] MEDS ORDERED: DIPHTHERIA/TETANUS/PERTUSSIS 0.5 ML SYR/VIAL IM. ONE (14:15)
[2016-06-21] MEDS: AcetaZOLAMIDE 250 MG TAB PO SCH (20:53)
--- NOTE | 2016-06-21 20:58 | Progress Note ---
Subjective Date of Service: Jun 21, 2016. Subjective Pt evaluation today including: conversation w/ patient, conversation w/ family ( by phone; daughter at bedside), physical exam, chart review, lab review , review of inpatient medication list Pain: denies PO Intake: normal Voiding: no voiding problems (following d/c of fernandez) no issues overnight feels good no significant pulmonary complaints today Problem List Medical Problems: (1) Anasarca Status: Acute (2) Bilateral cellulitis of lower leg Status: Acute (3) Bilateral lower leg cellulitis Status: Acute (4) Change in mental status Status: Acute (5) Chronic renal failure Status: Acute (6) CO2 retention Status: Acute (7) Dyspnea on exertion Status: Acute (8) Fall Status: Acute (9) Fever Status: Acute (10) Fever Status: Acute (11) Hypercarbia Status: Acute (12) Hypoxemia Status: Acute (13) Hypoxia Status: Acute (14) Respiratory failure Status: Acute (15) Weakness Status: Acute (16) Wrist pain Status: Acute Review of Systems Constitutional: No fever Respiratory: No dyspnea at rest Cardiac: No chest pain Abdomen: No pain Objective Vital Signs Date Time Temp Pulse Resp B/P Pulse Ox O2 Delivery O2 Flow Rate FiO2 06/21/16 17:59 98 149/70 06/21/16 16:00 Nasal Cannula 3.0 Humidified Oxygen 06/21/16 14:53 36.8 97 20 151/65 94 3.0 06/21/16 14:33 103 14 93 Nasal Cannula 3.0 06/21/16 12:16 98 164/76 06/21/16 11:37 89 14 94 Nasal Cannula 3.0 06/21/16 08:00 Nasal Cannula 3.0 Humidified Oxygen 06/21/16 07:49 36.4 90 20 156/80 92 3.0 06/21/16 07:43 86 14 95 Nasal Cannula 3.0 06/21/16 05:34 90 132/87 06/21/16 00:40 89 166/82 06/21/16 00:36 89 166/82 06/21/16 00:00 BiPAP 06/20/16 22:30 36.8 100 18 135/73 94 Nasal Cannula 3.0 Humidified Oxygen Physical Exam General Appearance: no apparent distress, + obese ENT: pharynx normal Neck: no JVD Respiratory/Chest: lungs clear, no respiratory distress, no accessory muscle use Cardiovascular: regular rate, rhythm, no gallop, no murmur Abdomen: normal bowel sounds, non tender, soft, no organomegaly, + distended Extremities: + swelling (lymphedema b/l legs - no change ) 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: alert, oriented x 3 Skin: + pertinent finding (stasis changes with dry skin and erythema b/l shins ; bubbling of skin left foot (dorsum); very dry feet; 2nd toe, right foot - abrasion dorsum of toe) Laboratory Results Last 24 Hours Test 06/21/16 00:33 06/21/16 04:51 06/21/16 05:15 06/21/16 08:00 Bedside Glucose 156 mg/dl 190 mg/dl 162 mg/dl Sodium Level 135 mmol/L Potassium Level 3.5 mmol/L Chloride Level 92 mmol/L Carbon Dioxide Level 40 mmol/L Anion Gap 3.0 mmol/L Blood Urea Nitrogen 79 mg/dl Creatinine 2.20 mg/dl Est Creatinine Clear Calc Drug Dose 38.0 ml/min Estimated GFR () 27.0 Estimated GFR (Non- 23.3 BUN/Creatinine Ratio 35.8 Random Glucose 188 mg/dl Calcium Level 9.5 mg/dl Chemistry Specimen Hemolysis Test 06/21/16 11:25 06/21/16 16:46 06/21/16 20:28 Bedside Glucose 204 mg/dl 210 mg/dl 205 mg/dl Assessment and Plan 60yo female: 1. acute/chronic hypoxic/hypercapneic respiratory failure - multifactorial - COPD, OHS, CHF, etc - acute component resolved. 2. UTI - completing course of abx (keflex). Last day 06/23/16. 3. CKD stage 3 - creatinine stable last few days. BMP in am. Appreciate nephrology assistance. 4. lymphedema b/l legs - recommend outpatient lymphedema clinic referral for manual treatment, compression, etc. 5. hypercalcemia - resolved; PTH level normal; worrisome for underlying malignancy. See below. 6. SPEP with M-spike; in the setting of hypercalcemia this is concerning for multiple myeloma; will f/u with Dr. Delong after discharge. 7. T2DM, uncontrolled but improving; appreciate pharmacy assistance. 8. COPD with exacerbation - improving; weaning prednisone slowly. Cont inhalers. 9. DVT proph - heparin TID. 10. metabolic alkalosis due to chronic CO2 retention & diuresis - diamox added by nephrology today; BMP in am. 11. abrasion, right foot - TDaP x 1 IM today. Cont local wound care. 12. morbid obesity with BMI 55. 13. acute/chronic diastolic CHF - acute component resolved; back on oral bumex. 14. metabolic encephalopathy - 2nd to hypercarbia - resolved. spoke with d/c home tomorrow if ok with nephrology and labs stable I Discharge planning: home with home health
[2016-06-22] MEDS: HYDROCODONE/ACETAMOPHEN 5/325MG TAB PO PRN (01:30)
[2016-06-22] MEDS: HEPARIN SOD 5000 UNIT/0.5 ML CARP SQ SCH ×2 (06:03→13:55)
[2016-06-22] MEDS: METOPROLOL TARTRATE 1 MG/ML VIAL IV. SCH ×2 (06:06→11:07)
[2016-06-22] MEDS: ALBUT/IPRATROP 3MG/0.5MG NEB 3 ML VIAL INH SCH ×3 (07:33→14:25)
[2016-06-22 07:34] VITALS: PULSE 78; O2SAT 96
[2016-06-22] MEDS: FLUTICASONE/SALMETEROL (ADVAIR) 500/50 INH 14 PUFF INH SCH (07:44)
[2016-06-22] MEDS: TIOTROPIUM BROMIDE 5 PUFF/90 MCG INH INH SCH (07:45)
[2016-06-22] MEDS: AcetaZOLAMIDE 250 MG TAB PO SCH (07:45)
[2016-06-22] MEDS: DOXYCYCLINE HYCLATE 100 MG CAP PO SCH (07:45)
[2016-06-22] MEDS: ATORVASTATIN 40 MG TAB PO SCH (07:45)
[2016-06-22] MEDS: CEPHALEXIN MONOHYDRATE 500 MG CAP PO SCH ×2 (07:45→13:54)
[2016-06-22] MEDS: NYSTATIN OINT 15 GM TUBE EXT SCH ×2 (07:46→13:55)
[2016-06-22] MEDS: BUMETANIDE 1 MG TAB PO SCH ×3 (07:46→17:24)
[2016-06-22] MEDS: VERAPAMIL HCL 240 MG TABCR PO SCH (07:47)
[2016-06-22 07:55] VITALS: BP 148/75; PULSE 80; TEMP 36.7; O2SAT 94
[2016-06-22] MEDS: INSULIN ASPART 100 UNITS/ML VIAL SC SCH ×3 (08:22→17:33)
[2016-06-22] MEDS: PREGABALIN 150 MG CAP PO SCH ×2 (08:22→13:53)
[2016-06-22] MEDS: INSULIN GLARGINE SC SCH (08:23)
--- NOTE | 2016-06-22 09:26 | Pharmacy Progress Note ---
Glycemic: Assessment & Plan Date of Service Jun 22, 2016. Assessment & Plan The patient is currently receiving 309 units of insulin per day. BSGs ranging 167 - 210 mg/dl over the past 24hrs. * Basal insulin: Lantus 70 units every 12 hours * Correctional Insulin: Novolog Correction per scale ACHS Goal Range: Low 120 mg/dL - High 150 mg/dL Correction Factor: 4 mg/dL/unit * Prandial insulin: Per carb ratio of 1 unit per 1.5 grams CHO consumed ASSESSMENT: * BSGs were significantly improved yesterday but still looks like she could require some additional prandial coverage * Prednisone dose remains the same PLAN FOR INPATIENT GLYCEMIC CONTROL: * Continue Lantus 70 units BID * Continue Novolog ACHS * Goal 120-150 * CF 4 * TIGHTEN CR from 1.5 -> 1.2 (will provide an additional 10 units for 60 gm CHO meal) Pharmacy will continue to monitor patient daily and write orders per [facility] inpatient glycemic control protocol. Thanks. * Please note that the plan above was derived based on current level of insulin resistance and hospital stress. These recommendations are appropriate for inpatient admission only. Plan of care upon discharge will need to be reassessed to avoid potential outpatient hypo/hyperglycemia.
[2016-06-22 09:56] LABS: BUN/CREATININE RATIO 30.1 (10-20); CREATININE 2.3 mg/dl (0.60-1.20); MAGNESIUM 1.6 mg/dl (1.8-2.4); POTASSIUM 3.1 mmol/L (3.5-5.1)
[2016-06-22] MEDS ORDERED: POTASSIUM CHLORIDE 10 MEQ TABCR PO STA (10:11)
[2016-06-22] MEDS: MAGNESIUM SULFATE 1GM / D5W 1 GM in PREMIXED IN D5W 100 ML IV SCH ×2 (11:07→12:21)
[2016-06-22 11:29] VITALS: PULSE 81; O2SAT 95
--- NOTE | 2016-06-22 11:48 | Nephrology Progress Note ---
Nephrology Progress Note Date of Service Jun 22, 2016. Chief Complaint Follow-up for CKD, hypercalcemia and diuretic resistant lower extremity edema. Subjective Jazmin was seen and examined in her room this morning. She has been otherwise feeling well. Renal function remained somewhat stable, creatinine 2.3 this morning. Continues to have significant lower extremity edema but she has been net negative around 1 liter. Bicarb slightly improved with Diamox. Review of Systems A complete review of systems was performed. Pertinent positives are noted above. All other systems are negative. Vital Signs Last 8 Hrs Date Time Temp Pulse Resp B/P Pulse Ox O2 Delivery O2 Flow Rate FiO2 06/22/16 11:29 81 16 95 Nasal Cannula 3.0 06/22/16 11:07 81 153/76 06/22/16 08:00 Nasal Cannula 3.0 Humidified Oxygen 06/22/16 07:55 36.7 80 20 148/75 94 3.0 06/22/16 07:34 78 16 96 Nasal Cannula 3.0 06/22/16 06:06 84 151/74 I & O 24-Hour Column 06/22/16 08:00 Intake Total 1080 ml Output Total 1700 ml Balance -620 ml Last Recorded Weight Weight (Kilograms): 145.600 Physical Exam GENERAL: Middle-aged female, AAA x 3, pleasant, morbidly obese, not in any distress. NECK: Supple, no JVD. RESPIRATORY: Normal breathing efforts, no accessory muscle use, clear to auscultation bilaterally, no wheezes or rales. CARDIOVASCULAR: S1, S2 normal, rate rhythm regular. EXTREMITY: 3+ bilateral lower extremity edema NEURO: speech fluent. PSYCHIATRY: Normal mood and judgment Family History Cancer Diabetes mellitus Gallbladder disease Heart disease Lung disease Negative for CKD/ESRD Social History Smoking Status: Former smoker Alcohol Use: none Drug Use: none Marital Status: Housing Status: lives with family Occupation: unemployed . Lives with . Remote h/o tobacco use. Laboratory Results Past 24 Hours 06/22/16 09:13 Test 06/21/16 16:46 06/21/16 20:28 06/22/16 07:37 06/22/16 09:13 Bedside Glucose 210 mg/dl (70-90) 205 mg/dl (70-90) 167 mg/dl (70-90) Anion Gap 8.0 mmol/L (3-11) Est Creatinine Clear Calc Drug Dose 36.5 ml/min Estimated GFR () 25.5 Estimated GFR (Non- 22.0 BUN/Creatinine Ratio 30.1 (10-20) Calcium Level 9.0 mg/dl (8.5-10.1) Magnesium Level 1.6 mg/dl (1.8-2.4) Test 06/22/16 11:32 Bedside Glucose 215 mg/dl (70-90) Allergies Coded Allergies: Daptomycin (Verified Allergy, Mild, HIVES, 06/14/16) itching Codeine (Verified Allergy, Unknown, unknown, 06/14/16) has tolerated morphine Iodine (Verified Allergy, Unknown, 06/14/16) Shellfish (Verified Allergy, Unknown, 06/14/16) Sulfamethoxazole w/Trimethoprim (Verified Allergy, Unknown, RASH, 06/14/16) Medications Current Inpatient Medications Medications (Trade) Dose Ordered Sig/Duyen Route Start Time Stop Time Status Last Admin Dose Admin Acetaminophen (Tylenol Tab) 650 mg Q4H PRN PO 06/14/16 14:00 07/14/16 13:59 06/15/16 13:46 650 MG Ondansetron HCl (Zofran Inj) 4 mg Q6H PRN IV 06/14/16 14:00 07/14/16 13:59 Atorvastatin Calcium (Lipitor Tab) 40 mg DAILY PO 06/15/16 09:00 07/15/16 08:59 06/22/16 07:45 40 MG Salmeterol Xinafoate/ Fluticasone (Advair Diskus 500/50 Inh) 1 puff BID INH 06/14/16 21:00 07/14/16 20:59 06/22/16 07:44 1 PUFF Metoprolol Succinate (Toprol Xl Tab) 150 mg DAILY PO 06/15/16 09:00 07/15/16 08:59 Future Hold Prednisone (PredniSONE TAB) 15 mg QAM PO 06/15/16 09:00 07/15/16 08:59 Future Hold 06/16/16 08:40 15 MG Pregabalin (Lyrica Cap) 150 mg TID PO 06/14/16 14:00 07/14/16 13:59 06/22/16 08:22 150 MG Verapamil HCl (Calan-Sr Tab) 240 mg DAILY PO 06/15/16 09:00 07/15/16 08:59 06/22/16 07:47 240 MG Metoprolol Tartrate (Lopressor Iv) 5 mg Q6 IV. 06/14/16 18:00 07/14/16 17:59 06/22/16 11:07 5 MG Hydralazine HCl (HydrALAZINE INJ) 10 mg Q6H PRN IV. 06/14/16 14:00 07/14/16 13:59 Heparin Sodium (Porcine) (Heparin Sq 5000 Unit/0.5ml) 5,000 unit Q8 SQ 06/14/16 22:00 07/14/16 21:59 06/22/16 06:03 5,000 UNIT Miscellaneous Information (Consult Glycemic Management Pharmacy) 1 ea UD PRN N/A 06/14/16 15:34 07/14/16 15:33 Nystatin (Mycostatin Oint) 1 appln TID EXT 06/14/16 21:00 07/14/16 20:59 06/22/16 07:46 1 APPLN Tiotropium [place] (Spiriva Handihaler Inhaler) 1 puff DAILY INH 06/15/16 09:00 07/15/16 08:59 06/22/16 07:45 1 PUFF Glucose (Glucose 40% Gel) 15-30 GRAMS 15 GRAMS... UD PRN PO 06/14/16 17:00 07/14/16 16:59 Glucose (Glucose Chew Tab) 4-8 Tablets 4 Tabl... UD PRN PO 06/14/16 17:00 07/14/16 16:59 Dextrose (Dextrose 50% 50ML Syringe) 25-50ML OF 50% DW IV FOR... UD PRN IV 06/14/16 17:00 07/14/16 16:59 Glucagon (Glucagon Inj) 1 mg UD PRN SQ 06/14/16 17:00 07/14/16 16:59 Acetaminophen/ Hydrocodone Bitart ([place] 5/325 Tab) prn TID PRN PO 06/15/16 09:45 06/29/16 09:44 06/22/16 01:30 1 TAB Albuterol/ Ipratropium (Duoneb) 3 ml QIDR INH 06/16/16 16:00 07/16/16 15:59 06/22/16 11:29 3 ML Albuterol/ Ipratropium (Duoneb) 3 ml Q2H PRN INH 06/16/16 14:45 07/16/16 14:44 Insulin Glargine (Lantus Vial) 70 unit BID SC 06/17/16 16:45 07/17/16 16:44 06/22/16 08:23 70 UNIT Doxycycline Hyclate (Vibramycin Cap) 100 mg BID PO 06/18/16 20:00 06/24/16 23:59 06/22/16 07:45 100 MG Cephalexin Monohydrate (Keflex Cap) 500 mg TID PO 06/18/16 14:00 06/28/16 13:59 06/22/16 07:45 500 MG Miconazole Nitrate (Desenex Powder) 1 appln PRN PRN EXT 06/18/16 23:15 07/18/16 23:14 06/20/16 20:24 1 APPLN Prednisone (PredniSONE TAB) 30 mg DAILY PO 06/21/16 08:00 07/21/16 07:59 06/22/16 07:45 30 MG Insulin Aspart (novoLOG ASPART) SLIDING SCALE G... ACHS SC 06/21/16 06:30 07/21/16 06:29 06/22/16 08:22 51 UNITS Acetazolamide (Diamox Tab) 250 mg BID PO 06/21/16 20:00 07/21/16 19:59 06/22/16 07:45 250 MG Bumetanide 3 mg 3 mg TIDM PO 06/22/16 12:00 07/22/16 11:59 Magnesium Sulfate/ Prmx (Magnesium Sulfate/Premixed D5W) 100 ml @ 100 mls/hr Q1H IV 06/22/16 11:15 06/22/16 13:14 06/22/16 11:07 100 MLS/HR Impression (1) Obesity hypoventilation syndrome (2) Respiratory failure with hypercapnia (3) CO2 narcosis (4) Hypercalcemia (5) Pulmonary nodules (6) Chronic kidney disease (CKD) stage G3b/A1, moderately decreased glomerular filtration rate (GFR) between 30-44 mL/min/1.73 square meter and albuminuria creatinine ratio less than 30 mg/g Patient admitted to the hospital for evaluation respiratory failure w/ CO2 narcosis and hypercalcemia. Her medical history is significant for stage III CKD (baseline creatinine 1.7 - 2.0), HTN, obesity (BMI 56) and obesity hypoventilation syndrome. In October 2014 she had an echocardiogram performed which revealed LVEF 55 - 60%, mild LVH, RVSP 45, mild RV dilation and moderate TR. She was hospitalized 05/16 w/ CHF and cellulitis. As an outpatient she has developed progressive volume overload requiring the addition of Metolazone to her regular diuretic regimen. She responded well and lost 7 kg fluid weight in one week. She unfortunately developed progressive weakness and is now admitted with respiratory failure, severe hypercarbia and hypercalcemia. Preliminary evaluation of hypercalcemia reveals normal thyroid function, low PTH, normal vitamin D and alkaline phosphatase level. Serum RAMIRO level, serum free light chains, PTHrp and Vitamin A levels are pending. PMH - CKD w/ baseline creatinine 1.7 - 2.0, HTN, AODM, BMI > 50, COPD (home O2 at 3 L / min ATC), lung nodule, RA of hands, cor pulmonale (Echo 11/14: LVEF 55 - 60%, mild LVH, RVSP 45, mild RV dilation and moderate TR) Recommendations HYPERCALCEMIA: --calcium improved to 9.5 -- Calcitonin and Zometa were given upon admission. -- TSH, T4, alkaline phosphatase, vitamin D level, serum RAMIRO level are within normal limits. PTH is appropriately suppressed -- Await balance of hypercalcemia evaluation (PTHrp and Vitamin A level are pending as of 06/20/16) -- UEP c/w monoclonal protein. Serum free light chains is markedly elevated. Oncology recommendations have been reviewed today. 24 hour urine studies are in progress. They are suggesting outpatient follow up. # Metabolic alkalosis: With high dose diuretics and with underlying CO2 retention with obstructive sleep apnea -- slightly improved, discontinue Diamox on discharge GUNNAR: -- stable, creatinine staying around 2.2-2.3 CKD: -- Baseline creatinine has been 1.7 - 2.0 EDEMA: -- will increase Bumex 3 mg po TID on discharge -- Will request skin care RN to assess patient for lymphedema therapy and leg wraps patient has outpatient follow-up with Dr. Daron White on 06/25/2016. Advise patient to have a renal panel done today before her visit on Thursday. Okay to be discharged.
[2016-06-22 14:25] VITALS: PULSE 95; O2SAT 93
[2016-06-22] MEDS ORDERED: BMX1 PO (16:13)
[2016-06-22] MEDS ORDERED: KFL500 PO (16:14)
[2016-06-22] MEDS ORDERED: MCRK20 PO (16:14)
[2016-06-22] MEDS ORDERED: MCTP EXT (16:14)
[2016-06-22] MEDS ORDERED: PRED10TA PO (16:14)
[2016-06-22] MEDS ORDERED: INSU1.2I SQ (16:14)
[2016-06-22] MEDS ORDERED: OXGN (16:20)
[2016-06-22 16:33] VITALS: BP 153/76; PULSE 95; TEMP 36.7; O2SAT 93
[2016-06-22 16:45] VITALS: BP 145/79; PULSE 81; TEMP 36.6; O2SAT 93
--- NOTE | 2016-06-22 16:46 | Discharge Instructions ---
Discharge Instructions Date of Service Jun 22, 2016. Admission Reason for Admission: Confusion, Respiratory failure Discharge Discharge Diagnosis / Problem: Confusion, Respiratory failure - resolved; CHF - improved Discharge Goals Goal(s): Improve function, Improve disease control, Learn about illness, Diagnostic testing, Therapeutic intervention Activity Recommendations Activity Limitations: resume your previous activity (as tolerated ) . Instructions / Follow-Up Instructions / Follow-Up Instructions for your chronic kidney disease and heart disease: Call your Primary Care doctor or kidney doctor (Dr. Neri) if any of the following symptoms or problems start or get worse: * Shortness of breath or difficulty breathing * Wake up at night short of breath * Chest pain * Cough * Swelling of your hands, feet, or legs * More fatigued or tired with your normal activity * Palpitations - sudden fast heart beats WEIGHT * Weigh yourself every morning after using the bathroom. * Use the same scale. * Wear the same amount of clothing. * Write your weight down on a chart. * Call your doctor if you gain more than 2-3 pounds in 1-2 days or more than 5 pounds in 5 days. * Your weight at time of discharge from [facility] is 320 pounds. Your weight may be slightly different depending on your scale at home. MEDICATIONS * Use this discharge instruction sheet for medication instructions. * Take your medications at the time your doctor ordered. * Do not skip a dose of your medicines. * If you miss a dose of medicine, take it as soon as possible, but DO NOT DOUBLE A DOSE. * Read your medicine information when you get home. * Know all of the side effects of your medicine. If in doubt, ask your pharmacist * Call your Primary Care doctor's office if you have any side effects. * Be sure all of your doctors know what medicine and herbs you take (including cold, flu, and herbal medicine). Take the following with you to your follow-up doctor appointments: * Weight Chart * Medication List * List of questions Do not drink excessive alcohol, beer or wine. Other instructions from Dr. Hall: 1. Urinary tract infection (UTI) - * take 1 more day of keflex - prescription sent to [facility]; can begin on Thursday AM 06/23/16. 2. Right 2nd toe abrasion - please place the optifoam dressing to the toe and change every other day. May change daily if the optifoam dressing is saturated/ soaked through. Please call the wound care clinic as soon as possible to schedule appointment for them to follow the toe. The office address/phone number is listed under "Dr. Mateo Campbell." 3. Swelling of legs - * please note that your metazolone and spironolactone have been DISCONTINUED * your BUMEX has been INCREASED to THREE TIMES A DAY ([facility]) * we recommend that you see a lymphedema specialist in [place] * these treatments help with chronic swelling * Please contact the following for an appointment: [facility] [address] [place] [address] 4. Diabetes care - * while in the hospital you have only been requiring TWO shots of LANTUS per day * we recommend that you continue on the LANTUS twice daily at discharge BUT, if your sugars start to run high, then contact the Diabetes clinic and they may increase you back to THREE times a day dosing * continue your novolog with breakfast/lunch/dinner/bedtime as previous 5. Prednisone - * please see the medication list for instructions regarding a prednisone taper * start the taper TOMORROW on 06/23/16 6. Upcoming appointments - 1. Blood draw at [facility] or the [facility] office on 06/24/[address] Neri on 06/25/16 3. Ms Roro Tate - Diabetes clinic - 07/01/16 at 12:30pm 4. Dr. Dana Glynn - 07/03/16 at 11:40am 5. Dr. Delong - hematology/oncology at the [facility] - 07/01/16 7. continue your oxygen during the day and your CPAP at night as previous for your chronic breathing issues. Current Hospital Diet Patient's current hospital diet: Diabetes Type 2 Diet Discharge Diet Recommended Diet: Low Sodium Diet (2gm Na), Diabetes Type 2 Diet Fluid Restriction: 1800 ml (7 cups) Procedures Procedures Performed: Lumbar spine CAT scan - no fracture vertebrae. CAT scan of the head - no stroke or bleeding. Tetanus vaccine booster - 06/21/16. (also known as "TDaP") Pending Studies Studies pending at discharge: no Laboratory Results Hemoglobin A1c Test 05/20/16 13:26 Range/Units Estimated Average Glucose 134 mg/dl Hemoglobin A1c 6.3 H 4.5-5.6 % Lipid Panel Test 05/20/16 13:26 Range/Units Triglycerides Level 202 H 0-150 mg/dl Cholesterol Level 126 0-200 mg/dl HDL Cholesterol 43 mg/dl Cholesterol/HDL Ratio 2.9 LDL Cholesterol, Calculated 43 mg/dl Medical Emergencies . Who to Call and When: Call 911 or go to the Emergency Room if: * If at any time you feel your situation is an emergency * You have tightness or pain in your chest that does not go away with rest or Nitroglycerin * You are very short of breath even with rest . Non-Emergent Contact Non-Emergency issues call your: Civil Laboratory Technician (Dr. Neri) Call Non-Emergent contact if: temperature is above 100.5, you have any medication questions . . "Provider Documentation" section prepared by Rahat Hall. . VTE Core Measure Inpt VTE Proph given/why not?: Unfractionated heparin SQ
--- NOTE | 2016-06-24 12:45 | Discharge Summary ---
Discharge Summary Date of Service Jun 24, 2016. Discharge Summary Admission Date: Jun 14, 2016 at 13:59 Discharge Date: Jun 22, 2016 Discharge Disposition: Home with services Principal Diagnosis: acute/chronic hypoxic/hypercapnic respiratory failure Problems/Secondary Diagnoses: 1. acute/chronic diastolic CHF 2. e. coli UTI 3. CKD stage 3 4. lymphedema / chronic venous insufficiency b/l legs 5. hypercalcemia - resolved 6. SPEP/UPEP with monoclonal gammopathy 7. uncontrolled T2DM 8. COPD with exacerbation 9. abrasion, right 2nd toe 10. morbid obesity with BMI 55 11. metabolic encephalopathy - resolved 12. HTN 13. chronic leg cellulitis treated with chronic antibiotics 14. hyponatremia, hypokalemia, hypomagnesemia, hypophosphatemia - all improved 15. MIKAYLA on night-time CPAP 16. OHS (obesity-hypoventilation syndrome) Immunizations: Have You Had Influenza Vaccine: Yes Influenza Vaccine Date: Apr 15, 2012 History of Tetanus Vaccine?: No History of Pneumococcal: Yes Pneumococcal Date: Jan 13, 2013 History of Hepatitis B Vaccine: No Procedures: 1. CT lumbar spine - FINDINGS: No fractures. No subluxation. Paraspinal soft tissues are unremarkable. Moderate facet degenerative changes within the lower lumbar spine. Moderate disc space narrowing at L1-L2 and L2-L3. Mild disc space narrowing at L3-L4 and L4-L5. The visualized sacrum is intact. A 3.8 cm left adrenal myelolipoma. IMPRESSION: No fractures within the lumbar spine. 2. CT head - negative for ICH/stroke. 3. radial artery line. 4. TDaP vaccine x 1 Consultations: 1. nephrology - Carl Neri MD 2. critical care - Jefferson Beasley DO 3. pulmonary - Aroldo Nesbitt DO 4, PT, OT Medication Reconciliation New Medications: Oxygen (Oxygen) Gas 3 LITERS NA CONTINOUS, #1 0 Refills Potassium Chloride (Klor-Con M20) 20 Meq Tabcr 20 MEQ PO DAILY, #30 TAB 0 Refills start 06/23/16 Cephalexin Monohydrate (Cephalexin) 500 Mg Cap 500 MG PO BID for 1 Day, #2 CAP 0 Refills Miconazole Nitrate (Desenex Shake Powder) 43 Appln/43 Gm Powd 1 APPLN EXT PRN PRN for Affected Skin Folds, #1 BTL 1 Refill Changed Medications: Bumetanide (Bumetanide) 1 Mg Tab 3 MG PO TID for 30 Days, #270 TAB 5 Refills (Changed from: BID17; Refills: 3) Insulin Glargine (Toujeo Solostar) 300 Unit/Ml Inj 70 UNIT SQ BID, #1 (Changed from: TID; 14) Prednisone (Prednisone) 10 Mg Tab 10 MG PO DIRECTED, #45 0 Refills (Changed from: 15 MG; QAM; Refills: ) starting 06/23/16: take 2.5 tabs daily for 2 days, then 2 tabs daily for 2 days, then resume your 1.5 tablets daily thereafter. Take with food. Continued Medications: Allopurinol (Zyloprim) 100 Mg Tab 100 MG PO DAILY, TAB Ascorbic Acid (Vitamin C 500 mg) 1 Chw Chw 1000 MG PO DAILY Atorvastatin (Lipitor) 40 Mg Tab 40 MG PO DAILY, TAB Cholecalciferol (Vitamin D3) 1,000 Unit Tab 1000 UNITS PO DAILY for 90 Days, TAB 3 Refills Cyanocobalamin (Vitamin B-12) 2,500 Mcg Subl 2500 MCG PO DAILY Doxycycline Hyclate (Doxycycline Hyclate) 100 Mg Tab 100 MG PO DAILY Fluticasone Prop/Salmeterol (Advair Diskus 500/50 60 Dose) 1 Ea Aerp 1 PUFF INH BID, INHALER Insulin Aspart (Novolog Flexpen) 100 Units/Ml Inj 50 UNITS SQ W/BREAKFAST Insulin Aspart (Novolog Flexpen) 100 Units/Ml Inj 50 UNITS SQ W/LUNCH Insulin Aspart (Novolog Flexpen) 100 Units/Ml Inj 90 UNITS SQ W/SUPPER Insulin Aspart (Novolog Flexpen) 100 Units/Ml Inj 40 UNITS SQ HS Ipratropium-Albuterol (Duoneb) 3 Ml Nebu 1 TREATMENT INH Q6H PRN for SOB/Wheezing, INHA Lorcaserin Hcl (Belviq) 10 Mg Tab 10 MG PO BID, #60 Metoprolol Succ (Toprol Xl) (Toprol-Xl ) 100 Mg Tabcr 150 MG PO DAILY, TAB Multiple Vitamins W/ Minerals (One Daily For Women) 1 Tab Tab 1 TAB PO DAILY Pregabalin (Lyrica) 150 Mg Cap 150 MG PO TID, CAP Pyridoxine (Vitamin B6) 100 Mg Tab 200 MG PO DAILY, TAB Tiotropium Cascade (Spiriva Handihaler) 30 Puff/540 Mcg Aerp 1 CAP INH DAILY, INHALER Verapamil HCl (Verapamil HCl ER) 240 Mg Tabcr 240 MG PO DAILY Vitamin E (Vitamin E) 400 Unit Tab 800 UNITS PO DAILY Discontinued Medications: Ciprofloxacin (Ciprofloxacin HCl) 500 Mg Tab 500 MG PO BID for 10 Days, #20 TAB Metolazone (Zaroxolyn) 5 Mg Tab 5 MG PO DAILY, TAB Spironolactone (Aldactone) 50 Mg Tab 50 MG PO BID, TAB Referrals At Discharge Follow up Referrals: Physician Referral - Please Call For Appointment with Mateo Campbell, DO Discharge Exam Physical Exam: General Appearance: no apparent distress, + obese ENT: pharynx normal Neck: no JVD Respiratory/Chest: lungs clear, no respiratory distress, no accessory muscle use, + decreased breath sounds (bases) Cardiovascular: regular rate, rhythm, no gallop, no murmur, normal peripheral pulses Abdomen / GI: normal bowel sounds, non tender, soft, no organomegaly Extremities: + pedal edema, + swelling (lymphedema b/l legs) 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: alert, oriented x 3 Skin: + pertinent finding (abrasion, right 2nd toe - dorsum - no signs of cellulitis/infection; very dry, xerotic skin on her shins with stasis changes and hyperpigmentation/redness ) Hospital Course HISTORY OF PRESENT ILLNESS: This patient is a 60-year-old female with a history of diastolic heart failure, chronic kidney disease, diabetes and chronic renal insufficiency that presents emergency department with progressive weakness and falls for 1 week. The history is taken from the patient's as the patient has altered mental status and is on BiPAP. According to the , the patient had 2 falls earlier this morning. During one of the falls, she fell backwards striking her back against the banister. She did not hit her head. There was no loss of consciousness after the fall. The patient has also been progressively drowsy. She has been falling asleep mid-conversation. The patient's also says that she has had a severe tremor, which is almost a severe jerking as opposed to a fine tremor. This is also been getting worse over the last week. The patient saw her schedule supervisor 8 days ago for dyspnea on exertion and weight gain. She was put on metolazone 5 mg daily. She takes this in addition to her typical dose of spironolactone and Bumex. ED evaluation reveals a PCO2 of 90 per VBG. PH 7.34. Calcium is high at 14. Creatinine has also bumped from 2.0-2.5. HOSPITAL COURSE: 1. acute/chronic hypoxic/hypercapnic respiratory failure - at time of admission the patient's altered mental status was due to markedly elevated pCO2. The elevated pCO2 was felt to be secondary to multiple factors including COPD exacerbation, acute/chronic diastolic CHF, illness from UTI, metabolic derangements (hypercalcemia), etc. She was admitted to the ICU and supported on BIPAP. Fortunately with use of IV diuretics, IV steroids, BIPAP, & other supportive care measures she clinically improved. BIPAP was ultimately stopped and she was weaned back to her normal amount of NC O2. She will continue on her home 3 L NC O2 continuously and BIPAP at night-time. 2. UTI 2nd to e. coli - she completed 6 days of antibiotic therapy for this and will need 1 more day of keflex at discharge. 3. CKD stage 3 - she was seen in consult by nephrology who assisted in her diuretic and volume status management. She received multiple doses of IV diuretic while here, and at discharge she appears to be at or near euvolemia with dry weight of 320 pounds. At discharge her bumex was increased to TID dosing. Aldactone & metazolone have been discontinued. She will have a BMP and magnesium level on 06/24/16, with subsequent follow-up with Dr. Neri on 06/25/16. 4. lymphedema b/l legs - recommend outpatient lymphedema clinic referral for manual treatment, compression, etc. We suggested [facility] as she had seen this clinic in the past. 5. hypercalcemia - resolved with use of zometa and diuretic therapy. PTH level and PTH-related peptide were both normal. Although metazolone could have caused the acute hypercalcemia there is concern that she could have an underlying malignancy. SPEP/UPEP both demonstrated the presence of a monoclonal gammopathy concerning for multiple myeloma. She will follow-up with Dr. Carlos Delong in the [facility] after discharge. 6. T2DM, uncontrolled - managed by pharmacy while hospitalized. She had good control with lantus twice daily (rather than her TID dosing). At discharge we suggested use of BID lantus but if glucose control is poor she will need to return to the TID schedule. Novolog will remain as is (4 times a day). She already has scheduled follow-up with the [facility] in early June 2016. 7. COPD with exacerbation - resolved with use of IV steroid therapy. She will taper her prednisone back down to her chronic dosage of 15mg/day. 8. abrasion, right 2nd toe - she cut her toe on the bedside table in her room. She was given TDaP for such. Optifoam dressings were recommended along with a follow-up appointment with the wound care center to ensure resolution. 9. chronic leg cellulitis - she remains on doxycycline for prophylaxis. Follows with infectious disease for this. All other medical problems remained stable while here. She will return home with home health and home therapy Total Time Spent: Greater than 30 minutes This includes examination of the patient, discharge planning, medication reconciliation, and communication with other providers. Discharge Instructions Please refer to the electronic Patient Visit Report (Discharge Instructions) for additional information. Follow-Up 1. Blood draw at [facility] or the [facility] office on Thursday, 2. Dr. Neri on 06/25/16 3. Ms Roro Tate - Diabetes clinic - 07/01/16 at 12:30pm 4. Dr. Dana Glynn - 07/03/16 at 11:40am 5. Dr. Delong - hematology/oncology at the [facility] - 07/01/16 Patient to arrange follow-up in the [facility] for right 2nd toe abrasion. Patient to arrange follow-up with [facility] for potential lymphedema treatment Additional Copies To Aroldo Nesbitt DO; Carl Neri M.D.; Carlos Delong D.O.; Emily Isaac, C.R.N.P; Mateo Campbell DO
[2016-06-24 12:47] LABS: ALBUMIN % 47.88 %; ALPHA-2-GLOBULIN % 15.18 %; BETA GLOBULIN % 12.99 %; CREATININE UR 85 MG/DL (20-320); GAMMA GLOBULIN % 20.09 %
[2016-07-10] MEDS ORDERED: VTMB122500 PO (09:56)
[2016-07-10] MEDS ORDERED: VRPSR240 PO (14:07)
[2016-07-23] MEDS ORDERED: POTA20TA16 PO (10:15)
[2016-07-28] MEDS ORDERED: ULT50X PO (14:38)
[2016-08-13] MEDS ORDERED: METO100T44 PO (09:30)
[2016-08-13] MEDS ORDERED: PREG1CAP70 PO (09:37)
[2016-08-13] MEDS ORDERED: NVLGI/PEN SQ ×4 (11:43→13:26)
[2016-08-13] MEDS ORDERED: ALLO100T PO (11:43)
[2016-08-13] MEDS ORDERED: SPRIN/30 INH (13:08)
[2016-08-13] MEDS ORDERED: ATOR-24 PO (13:08)
[2016-08-13] MEDS ORDERED: MULT1TAB22 PO (13:08)
[2016-08-13] MEDS ORDERED: ADVIN50/60 INH (13:08)
[2016-08-13] MEDS ORDERED: CHOL1000 PO (13:08)
[2016-08-13] MEDS ORDERED: VITA1TAB4 PO (13:08)
[2016-08-13] MEDS ORDERED: PYRI100T4 PO (13:52)
[2016-08-13] MEDS ORDERED: ASCO500C43 PO (13:54)
[2016-08-13] MEDS ORDERED: LACT1LOT3 TOP (17:18)
[2016-08-13] MEDS ORDERED: IPRASOL4 INH (17:18)
[2016-08-13] MEDS ORDERED: LORC1TAB PO (17:18)
[2016-09-22] MEDS ORDERED: PRED10TA PO (14:40)
[2016-11-27] MEDS ORDERED: RXC5 PO (13:39)
[2016-11-27] MEDS ORDERED: LYR50 PO (13:39)
[2016-11-27] MEDS ORDERED: LDDP5 TD (13:39)
== END 2016-06-22 18:30 | disposition home or self-care (01) | DRG 189 ==
LOC: ENRESERVDT → ENRESERVTM → EDBD 09:41 → C.EDC 09:43 → C.MSICU 13:59 → EDBEDREQ 14:02 → CANBEDREQ 06-15 17:34 → EDBEDREQ 06-15 17:34 → CMPBEDREQ 06-15 17:35 → C.2T 06-15 19:00 → C.4E 06-18 12:56 → C.2T 06-18 12:56 → C.4E 06-18 13:54
PROVIDERS: ADMIT Hospitalist; ATTEND Internal Medicine
PROC: 5A09357 Assistance with Respiratory Ventilation, Less than 24 Consecutive Hours, Continuous Positive Airway Pressure (ICD-10-PCS; principal; 2016-06-14)
PROC: 03HC33Z Insertion of Infusion Device into Left Radial Artery, Percutaneous Approach (ICD-10-PCS; principal; 2016-06-14)
DX: J96.22 Acute and chronic respiratory failure with hypercapnia (principal); G93.41 Metabolic encephalopathy; I50.32 Chronic diastolic (congestive) heart failure; Z68.43 Body mass index [BMI] 50.0-59.9, adult; L03.119 Cellulitis of unspecified part of limb; N17.9 Acute kidney failure, unspecified; E66.2 Morbid (severe) obesity with alveolar hypoventilation; N39.0 Urinary tract infection, site not specified; E87.1 Hypo-osmolality and hyponatremia; J44.1 Chronic obstructive pulmonary disease with (acute) exacerbation; I12.9 Hypertensive chronic kidney disease with stage 1 through stage 4 chronic kidney disease, or unspecified chronic kidney disease; N18.3 Chronic kidney disease, stage 3 (moderate); S90.414A Abrasion, right lesser toe(s), initial encounter; Z66 Do not resuscitate; E11.9 Type 2 diabetes mellitus without complications; E83.52 Hypercalcemia; W19.XXXA Unspecified fall, initial encounter; A49.8 Other bacterial infections of unspecified site; E87.6 Hypokalemia; E83.42 Hypomagnesemia; E83.39 Other disorders of phosphorus metabolism; W22.03XA Walked into furniture, initial encounter; Z79.2 Long term (current) use of antibiotics; Z87.891 Personal history of nicotine dependence; Z79.4 Long term (current) use of insulin; Z91.81 History of falling

== ENCOUNTER → 2016-06-24 | Outpatient (CLI) | payer BC ==
[~2016-06-24] MED LIST changes: +ADVIN50/60 INH; +ALLO100T PO; +ASCO500C43 PO; +ATOR-24 PO; +B-COCAP20 PO; +BUME1TAB PO; +CALC667C PO; +CEPH500C PO; +CHOL1000 PO; -CPR500 PO; +CPR500HP PO; +DOXY100C76 PO; +DOXY100T PO; +DRGTP50 TD; +DXY100 PO; +FAMO1TAB47 PO; +HYDR-4079 PO; +INSU1.2I SC; +KFL500 PO; +LACT1LOT3 TOP; +LDDP5 TD; +LIDO1CRE TOP; +LYR50 PO; +LYR75 PO; +MCRK20 PO; +MCTP EXT; +MCTP TOP; +MELA3TAB PO; +METO100T44 PO; +MULT1TAB22 PO; +NVLGI/PEN SQ; +NYSP EXT; +ONDA4TAB46 PO; +ONDA4TAB65 PO; +OXGN; +PANT40TA PO; +PHS667 PO; +POTA20TA16 PO; +PREG1CAP70 PO; +PRT40 PO; +PYRI100T4 PO; +RXC5 PO; +SILV1CRE73 TOP; -SPIR50TA2 PO; +SPRIN/30 INH; +TRAM-10 PO; +ULT50X PO; +VBRT100 PO; +VERA1TAB52 PO; +VERA240C2 PO; +VITA1TAB4 PO; +VRPSR240 PO; +VTMB122500 PO; +ZRX5 PO
[2016-06-24 17:37] LABS: HEMATOCRIT 33.6 % (37-47); MEAN CELL VOLUME 98.8 fL (80-100); MEAN CORPUSCULAR HEMOGLOBIN 30.6 pg (25-34); MEAN PLATELET VOLUME 11.3 fL (7.4-10.4); PLATELET COUNT 237 K/uL (130-400); WHITE BLOOD COUNT 13.52 K/uL (4.8-10.8)
[2016-06-24 18:04] LABS: BLOOD UREA NITROGEN 62 mg/dl (7-18); BUN/CREATININE RATIO 25.8 (10-20); CARBON DIOXIDE 31 mmol/L (21-32); CHLORIDE 100 mmol/L (98-107); GLUCOSE 69 mg/dl (70-99); POTASSIUM 3.2 mmol/L (3.5-5.1); SODIUM 137 mmol/L (136-145)
[2016-06-24 18:15] LABS: PHOSPHORUS 3.1 mg/dl (2.5-4.9); THYROID STIMULATING HORMONE 0.841 uIu/ml (0.300-4.500)
== END | disposition home or self-care (01) ==
LOC: C.LABBFT 12:01
PROVIDERS: ATTEND Internal Medicine Nephrology
DX: I12.9 Hypertensive chronic kidney disease with stage 1 through stage 4 chronic kidney disease, or unspecified chronic kidney disease (principal); R80.9 Proteinuria, unspecified; E55.9 Vitamin D deficiency, unspecified; N18.3 Chronic kidney disease, stage 3 (moderate); E11.22 Type 2 diabetes mellitus with diabetic chronic kidney disease; N17.9 Acute kidney failure, unspecified

== ENCOUNTER → 2016-07-07 | Outpatient (CLI) | payer BC | END | disposition home or self-care (01) | LOC: C.LABSPEC 12:47 | PROVIDERS: ATTEND Physician Assistant | DX: L03.116 Cellulitis of left lower limb (principal); L03.115 Cellulitis of right lower limb; E11.8 Type 2 diabetes mellitus with unspecified complications ==

== ENCOUNTER 2016-07-10 15:35 | Inpatient (IN) | payer BC ==
[~2016-07-10] VITALS: Ht 162.6 cm; Wt 145.9 kg
[~2016-07-10 15:35] MED LIST changes: -ADVIN50/60 INH; -ALLO100T PO; -ASCO500C43 PO; -ATOR-24 PO; -B-COCAP20 PO; -BUME1TAB PO; -CALC667C PO; -CEPH500C PO; -CHOL1000 PO; -CPR500HP PO; -DOXY100C76 PO; -DOXY100T PO; -DRGTP50 TD; -DXY100 PO; -FAMO1TAB47 PO; -HYDR-4079 PO; -HYDR-5688 PO; -INSU1.2I SC; -LACT1LOT3 TOP; -LDDP5 TD; -LIDO1CRE TOP; -LYR50 PO; -LYR75 PO; -MCTP TOP; -MELA3TAB PO; -METO100T44 PO; -MULT1TAB22 PO; -NVLGI/PEN SQ; -NYSP EXT; -ONDA4TAB46 PO; -ONDA4TAB65 PO; -PANT40TA PO; -PHS667 PO; -POTA20TA16 PO; -PREG1CAP70 PO; -PRT40 PO; -PYRI100T4 PO; -RXC5 PO; -SILV1CRE73 TOP; -SPRIN/30 INH; -TRAM-10 PO; -ULT50X PO; -VERA1TAB52 PO; -VERA240C2 PO; -VITA1TAB4 PO; -ZRX5 PO
--- NOTE | 2016-07-10 16:51 | DIAGNOSTIC IMAGING REPORT ---
CHEST ONE VIEW PORTABLE CLINICAL HISTORY: [facility] dyspnea COMPARISON STUDY: 06/16/2016 FINDINGS: Prominent pulmonary vascularity. No evidence for cardiac enlargement. Possible infiltrate right base. IMPRESSION: Infiltrate right base. Pulmonary vascular congestion. Electronically signed by: Mateo Bone M.D. 07/10/2016 4:49 PM Dictated Date/Time: 07/10/2016 4:48 PM
--- NOTE | 2016-07-10 16:57 | EMERGENCY ROOM VISIT NOTE ---
History Report prepared by [place]: Melissa Irby Under the Supervision of: Dr. Pavel Reina M.D. First contact with patient: 16:21 Chief Complaint: RESPIRATORY PROBLEMS Stated Complaint: FULL OF FLUID, BREATHING ISSUES Nursing Triage Summary: Triage note: pt reports "i am having a lot of fluid issues and water is just pouring out of my legs, the fluid is getting so bad it is in my stomach and i am short of breath." pt reports 26 pound weight gain in 3 weeks. pt reports hx of copd. History of Present Illness The patient is a 60 year old female who presents to the Emergency Room with complaints of constant leg swelling beginning 2 weeks ago. The patient states that she has issues with fluid and and recently her legs have been secreting fluid though she notes no open wounds on her legs. She reports that she was seen here 3 weeks ago and was here for 9 days. She notes that she uses 3L of oxygen at home and has been having worsening shortness of breath. The patient complains of abdominal swelling, leg swelling, fluid secretion from her legs, and 26 pound weight gain in the last 2 weeks. She denies any nausea, vomiting, chest pain, fever, and urinary symptoms. She states that she is on Doxycycline and Cipro. The patient notes that she has not been able to walk around. Source of History: patient Onset: 2 weeks ago Position: leg (bilateral) Quality: other (swelling) Timing: constant Associated Symptoms: + SOB, No chest pain, No fevers, No nausea, No urinary symptoms, No vomiting Note: The patient complains of abdominal swelling, leg swelling, fluid secretion from her legs, and 26 pound weight gain in the last 2 weeks. Review of Systems See HPI for pertinent positives & negatives. A total of 10 systems reviewed and were otherwise negative. Past Medical & Surgical Medical Problems: (1) Abrasion of toe of right foot (2) Acute kidney injury (3) Acute on chronic diastolic (congestive) heart failure (4) Acute respiratory failure with hypoxia and hypercapnia (5) Anemia (6) Asymptomatic bacteriuria (7) Cellulitis Of Leg (8) Cervical Disc Degen (9) CHF (congestive heart failure) (10) Chronic kidney disease (CKD) stage G3b/A1, moderately decreased glomerular filtration rate (GFR) between 30-44 mL/min/1.73 square meter and albuminuria creatinine ratio less than 30 mg/g (11) CO2 narcosis (12) COPD (chronic obstructive pulmonary disease) (13) Cystitis (14) Diab Mariama Wo Compl, Type Ii Or Unspec Type, Uncontrolled (15) Diabetes (16) Edema (17) Hypercalcemia (18) Hyponatremia (19) Metabolic alkalosis with respiratory acidosis (20) Metabolic encephalopathy (21) Morbid obesity with BMI of 50.0-59.9, adult (22) Obesity hypoventilation syndrome (23) Ovarian Cyst Nec/Nos (24) Pulmonary Collapse (25) Pulmonary nodules (26) Sciatica (27) Venous stasis dermatitis of both lower extremities Family History Cancer Diabetes mellitus Gallbladder disease Heart disease Lung disease Social History Smoking Status: Never Smoker Drug Use: none Marital Status: Housing Status: lives with family Occupation Status: unemployed Current/Historical Medications Scheduled Allopurinol (Zyloprim), 100 MG PO DAILY Ascorbic Acid (Vitamin C 500 mg), 1,000 MG PO DAILY Atorvastatin (Lipitor), 40 MG PO DAILY Bumetanide (Bumex), 3 MG PO TID Cholecalciferol (Vitamin D3), 1,000 UNITS PO DAILY Ciprofloxacin (Ciprofloxacin HCl), 500 MG PO BID Cyanocobalamin (Vitamin B-12), 2,500 MCG PO DAILY Doxycycline Hyclate (Doxycycline Hyclate), 1 TAB PO BID Fluticasone Prop/Salmeterol (Advair Diskus 500/50 60 Dose), 1 PUFF INH BID Insulin Aspart (Novolog Flexpen), 50 UNITS SQ W/BREAKFAST Insulin Aspart (Novolog Flexpen), 50 UNITS SQ W/LUNCH Insulin Aspart (Novolog Flexpen), 90 UNITS SQ W/SUPPER Insulin Aspart (Novolog Flexpen), 40 UNITS SQ HS Insulin Glargine (Toujeo Solostar), 70 UNIT SQ BID Lactic Acid (Ammonium Lactate) (Amlactin), 1 APPLN TOP BID Lorcaserin Hcl (Belviq), 10 MG PO BID Metoprolol Succ (Toprol Xl) (Toprol-Xl ), 150 MG PO DAILY Multiple Vitamins W/ Minerals (One Daily For Women), 1 TAB PO DAILY Potassium Chloride (Klor-Con M20), 20 MEQ PO DAILY Prednisone (Prednisone), 10 MG PO DIRECTED Pregabalin (Lyrica), 150 MG PO TID Pyridoxine (Vitamin B6), 200 MG PO DAILY Tiotropium Brunson (Spiriva Handihaler), 1 CAP INH DAILY Verapamil HCl (Verapamil HCl ER), 240 MG PO DAILY Vitamin E (Vitamin E), 800 UNITS PO DAILY Scheduled PRN Ipratropium-Albuterol (Duoneb), 1 TREATMENT INH Q6 PRN for SOB/Wheezing Miconazole Nitrate (Desenex Shake Powder), 1 APPLN EXT PRN PRN for Affected Skin Folds Allergies Coded Allergies: Daptomycin (Verified Allergy, Mild, HIVES, 06/14/16) itching Codeine (Verified Allergy, Unknown, unknown, 06/14/16) has tolerated morphine Iodine (Verified Allergy, Unknown, 06/14/16) Shellfish (Verified Allergy, Unknown, 06/14/16) Sulfamethoxazole w/Trimethoprim (Verified Allergy, Unknown, RASH, 06/14/16) Physical Exam Vital Signs Date Time Temp Pulse Resp B/P Pulse Ox O2 Delivery O2 Flow Rate FiO2 07/10/16 19:07 69 24 128/61 95 Nasal Cannula 3.0 07/10/16 15:44 36.6 87 20 133/108 92 Nasal Cannula 4.0 Physical Exam GENERAL: Patient is chronically unwell appearing and has anasarca over entire body. HEENT: No acute trauma, normocephalic atraumatic, mucous membranes moist, no nasal congestion, no scleral icterus. NECK: No stridor, no adenopathy, no meningismus, trachea is midline. LUNGS: Moderate shortness of breath and and minimal breath sounds throughout. HEART: Regular rate and rhythm. No murmurs, rubs, gallops appreciated. ABDOMEN: Pitting edema over abdomen. Skin breakdown across bilateral groin and pannus, has 4mm hole in the left lower abdomen consistent with skin breakdown BACK: No midline tenderness, no CVA tenderness EXTREMITIES: Normal motion all extremities, no cyanosis. Pt has peripheral vascular disease. 4+ edema bilateral legs from feet to abdomen NEUROLOGIC: Alert and oriented, no acute motor or sensory deficits, no focal weakness, cranial nerves grossly intact. SKIN: No rash, no jaundice, no diaphoresis. Skin breakdown throughout. Medical Decision & Procedures ER Provider Diagnostic Interpretation: X ray results are stated below per my interpretation and the radiologist's interpretation. CHEST ONE VIEW PORTABLE FINDINGS: Prominent pulmonary vascularity. No evidence for cardiac enlargement. Possible infiltrate right base. IMPRESSION: Infiltrate right base. Pulmonary vascular congestion. Electronically signed by: Mateo Bone M.D. 07/10/2016 4:49 PM Dictated Date/Time: 07/10/2016 4:48 PM Laboratory Results 07/10/16 18:07 Red Blood Count 3.40, Mean Corpuscular Volume 100.6, Mean Corpuscular Hemoglobin 30.9, Mean Corpuscular Hemoglobin Concent 30.7, Mean Platelet Volume 9.7, Neutrophils (%) (Auto) 76.6, Lymphocytes (%) (Auto) 12.4, Monocytes (%) ( Auto) 9.3, Eosinophils (%) (Auto) 1.0, Basophils (%) (Auto) 0.2, Neutrophils # ( Auto) 6.41, Lymphocytes # (Auto) 1.04, Monocytes # (Auto) 0.78, Eosinophils # ( Auto) 0.08, Basophils # (Auto) 0.02 07/10/16 17:17 Test 07/10/16 17:17 07/10/16 18:07 Anion Gap 2.0 mmol/L (3-11) Est Creatinine Clear Calc Drug Dose 55.6 ml/min Estimated GFR () 39.6 Estimated GFR (Non- 34.2 BUN/Creatinine Ratio 21.6 (10-20) Calcium Level 8.9 mg/dl (8.5-10.1) Magnesium Level 2.5 mg/dl (1.8-2.4) Total Creatine Kinase 55 U/L (26-192) Creatine Kinase MB 2.0 ng/ml (0.5-3.6) Creatine Kinase MB Ratio 3.6 (0-3.0) Troponin I < 0.015 ng/ml (0-0.045) Pro-B-Type Natriuretic Peptide 296 pg/ml (0-900) White Blood Count 8.37 K/uL (4.8-10.8) Red Blood Count 3.40 M/uL (4.2-5.4) Hemoglobin 10.5 g/dL (12.0-16.0) Hematocrit 34.2 % (37-47) Mean Corpuscular Volume 100.6 fL (80-100) Mean Corpuscular Hemoglobin 30.9 pg (25-34) Mean Corpuscular Hemoglobin Concent 30.7 g/dl (32-36) Platelet Count 215 K/uL (130-400) Mean Platelet Volume 9.7 fL (7.4-10.4) Neutrophils (%) (Auto) 76.6 % Lymphocytes (%) (Auto) 12.4 % Monocytes (%) (Auto) 9.3 % Eosinophils (%) (Auto) 1.0 % Basophils (%) (Auto) 0.2 % Neutrophils # (Auto) 6.41 K/uL (1.4-6.5) Lymphocytes # (Auto) 1.04 K/uL (1.2-3.4) Monocytes # (Auto) 0.78 K/uL (0.11-0.59) Eosinophils # (Auto) 0.08 K/uL (0-0.5) Basophils # (Auto) 0.02 K/uL (0-0.2) RDW Standard Deviation 69.1 fL (36.4-46.3) RDW Coefficient of Variation 18.8 % (11.5-14.5) Immature Granulocyte % (Auto) 0.5 % Immature Granulocyte # (Auto) 0.04 K/uL (0.00-0.02) Nucleated RBC Absolute Count (auto) 0.08 K/uL (0-0) Nucleated Red Blood Cells % 0.9 % Laboratory results as reviewed by me. ECG Indication: SOB/dyspnea Rate (beats per minute): 90 Rhythm: normal sinus Findings: no acute ischemic change, no ectopy ED Course 1621: The patient was evaluated in room C10. A complete history and physical exam was performed. 1: I reevaluated the patient and she is doing well. 1918: Discussed the patient's case with Dr. Collins of [facility]. The patient will be evaluated for further treatment and disposition. 1928: Upon reevaluation, the patient is doing well. Discussed results and treatment plan with the patient. She verbalized understanding and agreement with the treatment plan. The patient will be evaluated for further management. Medical Decision Differential: Infectious, Reactive Airway Disease, Pneumonia, Pneumothorax, COPD , CHF, ACS, Pulmonary Embolism, MSK, GI, Dissection, amongst other etiologies entertained. Chronically unwell 60 yr old female arrives with complaint of increasing weight gain and fluid build up. She is already on TID Bumex 3mg with worsening anasarca. She is severely overloaded with significant weeping from legs, deep pitting edema to abdomen and even some fluid in face, hands, neck. She has wound of left lower abdomen from pressure of pannus pressing on upper legs. There is infiltrate possible RLL though without fevers, nor WBC elevation, and she is already on 2 abx currently. She is clearly failing outpatient treatment. Consults Time Called: 1917 Consulting Physician: Dr. Collins - [facility] Returned Call: 1918 Discussed the patient's case. The patient will be evaluated for further treatment and disposition. Impression Primary Impression: CHF (congestive heart failure) Additional Impressions: Anasarca Weight gain Scribe Attestation The scribe's documentation has been prepared under my direction and personally reviewed by me in its entirety. I confirm that the note above accurately reflects all work, treatment, procedures, and medical decision making performed by me. Departure Information Dispostion Being Evaluated By Hospitalist Referrals Emily Isaac, C.R.N.P (PCP) Patient Instructions My [facility] Problem Qualifiers Primary Impression: CHF (congestive heart failure) Congestive heart failure type: diastolic Congestive heart failure chronicity : acute on chronic Qualified Codes: I50.33 - Acute on chronic diastolic ( congestive) heart failure
[2016-07-10] MEDS ORDERED: CPR500HP PO (17:18)
[2016-07-10] MEDS ORDERED: DOXY100T PO (17:18)
[2016-07-10] MEDS ORDERED: BUME1TAB PO (17:18)
[2016-07-10 17:58] LABS: BLOOD UREA NITROGEN 35 mg/dl (7-18); BUN/CREATININE RATIO 21.6 (10-20); CALCIUM 8.9 mg/dl (8.5-10.1); CARBON DIOXIDE 39 mmol/L (21-32); CHLORIDE 98 mmol/L (98-107); GLUCOSE 108 mg/dl (70-99); POTASSIUM 3.8 mmol/L (3.5-5.1); SODIUM 139 mmol/L (136-145)
[2016-07-10 18:04] LABS: CKMB/CK RATIO 3.6 (0-3.0); MAGNESIUM 2.5 mg/dl (1.8-2.4)
[2016-07-10 18:21] LABS: BASO % 0.2 %; BASO ABS # 0.02 K/uL (0-0.2); COMPLETE YES; HEMATOCRIT 34.2 % (37-47); IG% 0.5 %; LYMPH % 12.4 %; LYMPH ABS # 1.04 K/uL (1.2-3.4); MEAN CELL VOLUME 100.6 fL (80-100); MEAN CORPUSCULAR HEMOGLOBIN 30.9 pg (25-34); MEAN CORPUSCULAR HGB CONC 30.7 g/dl (32-36); MEAN PLATELET VOLUME 9.7 fL (7.4-10.4); MONO % 9.3 %; NEUT % 76.6 %; PLATELET COUNT 215 K/uL (130-400); WHITE BLOOD COUNT 8.37 K/uL (4.8-10.8)
--- NOTE | 2016-07-10 20:04 | History and Physical ---
History & Physical Date & Time of Service: July 10, 2016 at 19:57 Chief Complaint: Full Of Fluid, Breathing Issues Primary Care Physician: Emily Isaac C.R.N.P History of Present Illness Mrs Gaytan is a 60 year old female who presents to the ER with leaking fluid from her legs, increasing warmth in her lower legs and shortness of breath on exertion progressively getting worse over the last 2 weeks since her last discharge. Her has tried wrapping her feet but this causes increasing feet numbness. She is passing a lot of urine going every half hour, passing a lot of urine. Diet. Feeling chills all the time since discharge but before this she usually feels warm. Nothing makes the fluid better throughout the day. She denies any chest pain or worsening shortness of breath at rest. She has gained 26 lb increase since her last admission. She also has a new abdominal weeping wound but is unsure how long she has had this for. Went to [facility] yesterday for evaluation but hasn't yet started treatment for this. Past Medical/Surgical History Medical Problems: (1) Cellulitis Of Leg Status: Chronic (2) Cervical Disc Degen Status: Chronic (3) CHF (congestive heart failure) Status: Chronic (4) COPD (chronic obstructive pulmonary disease) Status: Chronic (5) Diab Mariama Wo Compl, Type Ii Or Unspec Type, Uncontrolled Status: Chronic (6) Diabetes Status: Chronic (7) Ovarian Cyst Nec/Nos Status: Chronic (8) Pulmonary Collapse Status: Resolved (9) Sciatica Status: Chronic Family History Cancer Diabetes mellitus Gallbladder disease Heart disease Lung disease Social History Smoking Status: Never Smoker Drug Use: none Marital Status: Housing status: lives with family Occupational Status: unemployed Immunizations History of Influenza Vaccine: Yes Influenza Vaccine Date: Apr 15, 2012 History of Tetanus Vaccine?: No History of Pneumococcal: Yes Pneumococcal Date: Jan 13, 2013 History of Hepatitis B Vaccine: No Multi-Drug Resistant Organisms History of MDRO: No Allergies Coded Allergies: Daptomycin (Verified Allergy, Mild, HIVES, 07/24/16) itching Codeine (Verified Allergy, Unknown, unknown, 07/24/16) has tolerated morphine Iodine (Verified Allergy, Unknown, 07/24/16) Shellfish (Verified Allergy, Unknown, 07/24/16) Sulfamethoxazole w/Trimethoprim (Verified Allergy, Unknown, RASH, 07/24/16) Home Medications Scheduled Allopurinol (Zyloprim), 100 MG PO DAILY Ascorbic Acid (Vitamin C 500 mg), 1,000 MG PO DAILY Atorvastatin (Lipitor), 40 MG PO DAILY Bumetanide (Bumetanide), 4 MG PO BID Cholecalciferol (Vitamin D3), 1,000 UNITS PO DAILY Cyanocobalamin (Vitamin B-12), 2,500 MCG PO DAILY Doxycycline Hyclate (Doxycycline Hyclate), 100 MG PO BID Fluticasone Prop/Salmeterol (Advair Diskus 500/50 60 Dose), 1 PUFF INH BID Insulin Aspart (Novolog Flexpen), 50 UNITS SQ W/BREAKFAST Insulin Aspart (Novolog Flexpen), 50 UNITS SQ W/LUNCH Insulin Aspart (Novolog Flexpen), 90 UNITS SQ W/SUPPER Insulin Aspart (Novolog Flexpen), 40 UNITS SQ HS Insulin Glargine (Toujeo Solostar), 70 UNIT SQ BID Lactic Acid (Ammonium Lactate) (Amlactin), 1 APPLN TOP BID Lorcaserin Hcl (Belviq), 10 MG PO BID Metoprolol Succ (Toprol Xl) (Toprol-Xl ), 150 MG PO DAILY Multiple Vitamins W/ Minerals (One Daily For Women), 1 TAB PO DAILY Pantoprazole (Pantoprazole Sodium), 40 MG PO QAM Prednisone (Prednisone), 10 MG PO DIRECTED Pregabalin (Lyrica), 150 MG PO TID Pyridoxine (Vitamin B6), 200 MG PO DAILY Tiotropium [place] (Spiriva Handihaler), 1 CAP INH DAILY Verapamil HCl (Verapamil HCl ER), 240 MG PO HS Vitamin E (Vitamin E), 800 UNITS PO DAILY Scheduled PRN Ipratropium-Albuterol (Duoneb), 1 TREATMENT INH Q6 PRN for SOB/Wheezing Miconazole Nitrate (Desenex Shake Powder), 1 APPLN EXT PRN PRN for Affected Skin Folds Tramadol HCl (Tramadol HCl), 1 TAB PO Q8 PRN for Pain Review of Systems Constitutional: + chills, No fever Eyes: No worsening of vision ENT: No hearing loss Respiratory: + dyspnea on exertion, No cough, No sputum, No wheezing, No shortness of breath, No dyspnea at rest Cardiovascular: No chest pain Abdomen: No pain, No nausea, No vomiting, No diarrhea, No constipation, No GI bleeding Musculoskeletal: + joint pain (chronically), + muscle pain Genitourinary - Female: + urinary frequency, No dysuria Endocrine: + fatigue Hematologic / Lymphatic: No abnormal bleeding/bruising Integumentary: + rash (abdomen pannus, under right breast and left groin), No itch Physical Exam Vital Signs Date Time Temp Pulse Resp B/P Pulse Ox O2 Delivery O2 Flow Rate FiO2 07/10/16 19:07 69 24 128/61 95 Nasal Cannula 3.0 07/10/16 15:44 36.6 87 20 133/108 92 Nasal Cannula 4.0 General Appearance: + mild distress (respiratory), + obese Head: normocephalic, atraumatic Eyes: normal inspection, PERRL, EOMI ENT: normal ENT inspection, pharynx normal Neck: supple, no adenopathy, trachea midline, + pertinent finding (unable to assess JVD due to neck size) Respiratory/Chest: no accessory muscle use, + respiratory distress (mild), + decreased breath sounds (bilateral bases, no crackles), + pertinent finding (no wheezing) Cardiovascular: regular rate, rhythm (quiet), no murmur, normal peripheral pulses Abdomen/GI: normal bowel sounds, non tender, soft, + pertinent finding (0.5cm hole in left lower abdomen with granulation tissue, weeping with mild surrounding erythema) Back: no CVA tenderness Extremities/Musculoskelatal: + pedal edema (pitting up to abdomen) Neurologic/Psych: no motor/sensory deficits (moving all 4 limbs), alert, oriented x 3 Skin: + pertinent finding (pannus erythema) Diagnostics Laboratory Results Results Past 24 Hours Test 07/10/16 17:17 07/10/16 18:07 Range/Units Sodium Level 139 136-145 mmol/L Potassium Level 3.8 3.5-5.1 mmol/L Chloride Level 98 98-107 mmol/L Carbon Dioxide Level 39 21-32 mmol/L Anion Gap 2.0 3-11 mmol/L Blood Urea Nitrogen 35 7-18 mg/dl Creatinine 1.60 0.60-1.20 mg/dl Est Creatinine Clear Calc Drug Dose 55.6 ml/min Estimated GFR () 39.6 Estimated GFR (Non- 34.2 BUN/Creatinine Ratio 21.6 10-20 Random Glucose 108 70-99 mg/dl Calcium Level 8.9 8.5-10.1 mg/dl Magnesium Level 2.5 1.8-2.4 mg/dl Total Creatine Kinase 55 26-192 U/L Creatine Kinase MB 2.0 0.5-3.6 ng/ml Creatine Kinase MB Ratio 3.6 0-3.0 Troponin I < 0.015 0-0.045 ng/ml Pro-B-Type Natriuretic Peptide 296 0-900 pg/ml White Blood Count 8.37 4.8-10.8 K/uL Red Blood Count 3.40 4.2-5.4 M/uL Hemoglobin 10.5 12.0-16.0 g/dL Hematocrit 34.2 37-47 % Mean Corpuscular Volume 100.6 80-100 fL Mean Corpuscular Hemoglobin 30.9 25-34 pg Mean Corpuscular Hemoglobin Concent 30.7 32-36 g/dl Platelet Count 215 130-400 K/uL Mean Platelet Volume 9.7 7.4-10.4 fL Neutrophils (%) (Auto) 76.6 % Lymphocytes (%) (Auto) 12.4 % Monocytes (%) (Auto) 9.3 % Eosinophils (%) (Auto) 1.0 % Basophils (%) (Auto) 0.2 % Neutrophils # (Auto) 6.41 1.4-6.5 K/uL Lymphocytes # (Auto) 1.04 1.2-3.4 K/uL Monocytes # (Auto) 0.78 0.11-0.59 K/uL Eosinophils # (Auto) 0.08 0-0.5 K/uL Basophils # (Auto) 0.02 0-0.2 K/uL RDW Standard Deviation 69.1 36.4-46.3 fL RDW Coefficient of Variation 18.8 11.5-14.5 % Immature Granulocyte % (Auto) 0.5 % Immature Granulocyte # (Auto) 0.04 0.00-0.02 K/uL Nucleated RBC Absolute Count (auto) 0.08 0-0 K/uL Nucleated Red Blood Cells % 0.9 % Diagnostic Radiology CHEST ONE VIEW PORTABLE CLINICAL HISTORY: ANNA dyspnea COMPARISON STUDY: 06/16/2016 FINDINGS: Prominent pulmonary vascularity. No evidence for cardiac enlargement. Possible infiltrate right base. IMPRESSION: Infiltrate right base. Pulmonary vascular congestion. Electronically signed by: Mateo Bone M.D. 07/10/2016 4:49 PM Dictated Date/Time: 07/10/2016 4:48 PM Normal EKG, No change from prior EKG, other (80bpm, no ischemic changes) Impression Assessment and Plan 60 year old female right sided heart failure, lymphedema and venous insufficiency, chronic cellulitis, chroinic hypoxic respiratory failure, CKD and DM.with cor pulmonale and heart failure, COPD and chronic hypoxic respiratory failure requiring 3L O2 baseline at home, DM, CKD III, morbid obesity, HLD, and Hypervolemia/leg swelling/Heart failure/Venous insufficiency - consult nephrology - Bumex 2mg IV now, then 2mg QID - Keep legs raised as much as possible - daily weights, I&Os, Morton catheter (due to immobility, wounds and need to accurately measure UO) Chronic lower leg cellulitis, abdominal wound/cellulitis - Consult wound care - Consult ID - Zosyn + Vancomycin - Blood and wound cultures COPD without current exacerbation - Continue outpatient treatment with Prednisone (currently on 15mg daily), Advair, Spiriva and DuoNebs - On home O2 3L, BiPAP overnight MGUS - diagnosed at last admission, followed by Dr. Delong - will defer outpatient testing given likely abnormal results with - passed list on to day team HTN - Continue outpatient metoprolol and verapamil T2DM - Lantus 70 units BID, 40 units insulin now - Glycemic consult - Accu check ac/hs CKD stage 3 - at baseline - daily BMP VTE prophylaxis - Heparin 5000 units TID SQ Code - Full Disposition - admit to telemetry Level of Care Telemetry Resuscitation Status FULL RESUSCITATION Additional Copies To Emily Isaac, C.R.N.P Resident Tracking Resident Involvement: Resident Care Provided Care Provided: Adult Hospital Medicine Assessment and Plan Attending Addendum: I have physically seen and examined this patient, have directed their medical care, have supervised the medical residents activities, and agree with the H&P as noted above, with the following changes: NONE
[2016-07-10] MEDS ORDERED: NITROGLYCERIN 0.4 MG SL PER TAB CHARGE SL PRN (20:30)
[2016-07-10] MEDS ORDERED: MICONAZOLE NITRATE POWDER 43 GM EXT PRN (21:15)
[2016-07-10] MEDS ORDERED: VANCOMYCIN INJ 2,800 MG in SODIUM CHLORIDE 0.9% 500ML 500 ML IV ONE (22:00)
[2016-07-10] MEDS ORDERED: PIPERACILL/TAZOBAC IV 4.5 GM in DEXTROSE 5% 100ML 100 ML IV ONE (22:00)
[2016-07-10] MEDS ORDERED: BUMETANIDE IV 2 MG in SYRINGE 0 ML IV ONE (22:15)
[2016-07-10] MEDS ORDERED: DEXTROSE 50% 50 ML SYR IV PRN (22:15)
[2016-07-10] MEDS ORDERED: GLUCOSE 40% GEL 15 GM TUBE PO PRN (22:15)
[2016-07-10] MEDS ORDERED: GLUCAGON FOR INJ 1 MG VIAL SQ PRN (22:15)
[2016-07-10] MEDS ORDERED: GLUCOSE 10 TABS/TUBE PO PRN (22:15)
[2016-07-10 22:31] LABS: ALKALINE PHOSPHATASE 82 U/L (45-117); ALT/SGPT 37 U/L (12-78); AST/SGOT 27 U/L (15-37)
[2016-07-10 22:37] VITALS: BP 144/77; PULSE 81; TEMP 37.1; O2SAT 94; Ht 162.6 cm; Wt 145.9 kg
[2016-07-10] MEDS ORDERED: INSULIN ASPART 100 UNITS/ML 3 ML PEN SQ ONE (23:00)
[2016-07-10] MEDS ORDERED: INSULIN GLARGINE SC SCH (23:00)
[2016-07-10] MEDS ORDERED: PIPERACILL/TAZOBAC CONSULT ACTIVE PRN (23:30)
[2016-07-10] MEDS ORDERED: VANCOMYCIN CONSULT ACTIVE PRN (23:30)
[2016-07-10] MEDS: PREGABALIN 150 MG CAP PO SCH (23:42)
[2016-07-10 23:51] VITALS: BP 144/66; PULSE 58; TEMP 36.8; O2SAT 96
[2016-07-10] MEDS: HEPARIN SOD 5000 UNIT/0.5 ML CARP SQ SCH (23:53)
[2016-07-11] VITALS (10 sets, daily range): BP systolic 116–155; BP diastolic 57–73; PULSE 76–90; TEMP 36.5–37.1; O2SAT 92–97
[2016-07-11] MEDS ORDERED: PHARMACY GLYCEMIC MGMT CONSULT PRN (00:30)
[2016-07-11] MEDS ORDERED: INSULIN ASPART 100 UNITS/ML 3 ML PEN SC ONE (03:00)
[2016-07-11] MEDS: HEPARIN SOD 5000 UNIT/0.5 ML CARP SQ SCH ×3 (05:32→21:19)
[2016-07-11] MEDS ORDERED: PIPERACILL/TAZOBAC IV 4.5 GM in DEXTROSE 5% 100ML 100 ML IV SCH (06:00)
[2016-07-11 06:01] LABS: BASO % 0.3 %; BASO ABS # 0.02 K/uL (0-0.2); COMPLETE YES; HEMATOCRIT 33.6 % (37-47); IG% 0.5 %; LYMPH % 19.6 %; MEAN CELL VOLUME 99.7 fL (80-100); MEAN CORPUSCULAR HEMOGLOBIN 30.3 pg (25-34); MEAN CORPUSCULAR HGB CONC 30.4 g/dl (32-36); MEAN PLATELET VOLUME 9.7 fL (7.4-10.4); MONO % 10.9 %; NEUT % 66.7 %; PLATELET COUNT 226 K/uL (130-400); RED BLOOD COUNT 3.37 M/uL (4.2-5.4); WHITE BLOOD COUNT 6.63 K/uL (4.8-10.8)
[2016-07-11 06:44] LABS: BUN/CREATININE RATIO 21.2 (10-20); CALCIUM 8.8 mg/dl (8.5-10.1); CREATININE 1.6 mg/dl (0.60-1.20); POTASSIUM 3.5 mmol/L (3.5-5.1)
[2016-07-11 06:47] LABS: ALB/GLOB RATIO 0.4 (0.9-2)
[2016-07-11] MEDS: ALBUT/IPRATROP 3MG/0.5MG NEB 3 ML VIAL INH SCH ×4 (07:15→19:01)
--- NOTE | 2016-07-11 07:34 | Family Medicine Progress Note ---
Progress Note Date of Service July 11, 2016. Subjective Pt evaluation today including: conversation w/ patient, physical exam, chart review, lab review Patient sitting out of bed. She denies acute overnight events. She says, that she has been feeling more short of breath lately, and it has been exacerbated with as little movement as getting up from a chair, and that walking 15 feet from her bedroom to her bathroom has required multiple stops to catch her breath. She states that she is breathing without issue currently at rest. She denies CP, palpitations, dizziness/lightheadedness, or pain. She has also noticed swelling in her arms, legs, and abdomen. Diet and salt intake was discussed in detail and patient says her cooks and aside from salt in food already, she never adds additional salt. With regards to her cellulitis, she states her legs have been red and swollen for a long time, but have recently worsened. The wound on the underside of her abdomen was found this past Thursday and noted to be weeping, but has otherwise not been too painful. Constitutional: No chills, No fever, No sweats Respiratory: + dyspnea on exertion, + shortness of breath, No cough, No dyspnea at rest, No wheezing Cardiovascular: + edema, + orthopnea, No PND, No chest pain, No palpitations Abdomen: + nausea, + problem reported, No constipation, No diarrhea, No pain , No vomiting Female : No dysuria, No hematuria Objective Vital Signs Date Time Temp Pulse Resp B/P Pulse Ox O2 Delivery O2 Flow Rate FiO2 07/11/16 04:10 36.8 79 16 130/67 92 CPAP 07/11/16 04:00 BiPAP 3.0 07/11/16 03:39 86 3.0 07/10/16 23:59 Nasal Cannula 4.0 07/10/16 22:37 37.1 81 24 144/77 94 Nasal Cannula 5.0 07/10/16 21:58 81 24 145/60 98 Nasal Cannula 3.0 07/10/16 19:07 69 24 128/61 95 Nasal Cannula 3.0 07/10/16 15:44 36.6 87 20 133/108 92 Nasal Cannula 4.0 Physical Exam General Appearance: WD/WN, no apparent distress Eyes: normal inspection ENT: hearing grossly normal, pharynx normal Neck: supple, no adenopathy Respiratory/Chest: normal breath sounds, no respiratory distress, no accessory muscle use, + decreased breath sounds (bibasilar), + pertinent finding (NC in situ) Cardiovascular: regular rate, rhythm Abdomen: normal bowel sounds, non tender, soft, + pertinent finding (Large pannus. [id number] erythematous area under left side, seruos fluid seepage. Scales along the front of pannus, but not erythematous.) Extremities: + pedal edema, + swelling, + pertinent finding (Bilateral erythematous lower limbs with granular tissue, and pitting edema to knees. Pedal pulse confirmed with doppler U/S) 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: alert, normal mood/affect, oriented x 3 Laboratory Results Results Past 24 Hours Test 07/10/16 23:46 07/11/16 03:08 07/11/16 05:39 07/11/16 06:27 Range/Units Bedside Glucose 140 111 76 70-90 mg/dl White Blood Count 6.63 4.8-10.8 K/uL Red Blood Count 3.37 4.2-5.4 M/uL Hemoglobin 10.2 12.0-16.0 g/dL Hematocrit 33.6 37-47 % Mean Corpuscular Volume 99.7 80-100 fL Mean Corpuscular Hemoglobin 30.3 25-34 pg Mean Corpuscular Hemoglobin Concent 30.4 32-36 g/dl Platelet Count 226 130-400 K/uL Mean Platelet Volume 9.7 7.4-10.4 fL Neutrophils (%) (Auto) 66.7 % Lymphocytes (%) (Auto) 19.6 % Monocytes (%) (Auto) 10.9 % Eosinophils (%) (Auto) 2.0 % Basophils (%) (Auto) 0.3 % Neutrophils # (Auto) 4.43 1.4-6.5 K/uL Lymphocytes # (Auto) 1.30 1.2-3.4 K/uL Monocytes # (Auto) 0.72 0.11-0.59 K/uL Eosinophils # (Auto) 0.13 0-0.5 K/uL Basophils # (Auto) 0.02 0-0.2 K/uL RDW Standard Deviation 68.0 36.4-46.3 fL RDW Coefficient of Variation 18.9 11.5-14.5 % Immature Granulocyte % (Auto) 0.5 % Immature Granulocyte # (Auto) 0.03 0.00-0.02 K/uL Nucleated RBC Absolute Count (auto) 0.07 0-0 K/uL Nucleated Red Blood Cells % 1.1 % Sodium Level 141 136-145 mmol/L Potassium Level 3.5 3.5-5.1 mmol/L Chloride Level 100 98-107 mmol/L Carbon Dioxide Level 38 21-32 mmol/L Anion Gap 3.0 3-11 mmol/L Blood Urea Nitrogen 34 7-18 mg/dl Creatinine 1.60 0.60-1.20 mg/dl Est Creatinine Clear Calc Drug Dose 54.5 ml/min Estimated GFR () 39.6 Estimated GFR (Non- 34.2 BUN/Creatinine Ratio 21.2 10-20 Random Glucose 82 70-99 mg/dl Calcium Level 8.8 8.5-10.1 mg/dl Total Bilirubin 0.4 0.2-1 mg/dl Aspartate Amino Transf (AST/SGOT) 15 15-37 U/L Alanine Aminotransferase (ALT/SGPT) 32 12-78 U/L Alkaline Phosphatase 80 45-117 U/L Total Protein 8.7 6.4-8.2 gm/dl Albumin 2.6 3.4-5.0 gm/dl Globulin 6.1 2.5-4.0 gm/dl Albumin/Globulin Ratio 0.4 0.9-2 Test 07/11/16 11:36 07/11/16 16:30 07/11/16 20:41 Range/Units Bedside Glucose 95 117 282 70-90 mg/dl Microbiology Results 07/10/16 Blood Culture, Received Pending 07/10/16 Blood Culture, Received Pending 07/11/16 Gram Stain, Received Pending 07/11/16 Wound Culture, Received Pending Assessment and Plan 60 year old female with cor pulmonale and heart failure, COPD and chronic hypoxic respiratory failure requiring 3L O2 baseline at home, DM, CKD III, morbid obesity, HLD, and chronic venous insufficiency admitted with progressive SOB and seeping abdominal wound. 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 BNP 296. Trop negative. CXR on 07/11 shows pulm vasc congestion. Last echo 07/25/15: Hyperdynamic LV systolic function. Mild concentric LV hypertrophy. LV diastolic dysfunction. Mild RV dilatation and systolic dysfunction.Mild tricuspid regurgitation. Mildly elevated RV systolic pressure. Normal central venous pressure. Patient likely needs to undergo aggressive diuresis. Nephrology consulted - recs appreciated. - Furosemide drip - Metoprolol 150mg daily - KCl replacement as necessary - Daily weights, strict I/O's, low salt diet Abdominal cellulitis/wound - Serous seepage, no purulent discharge, likely extravasated fluid from edematous soft tissue. ID and wound care consulted - recs appreciated. - IV zosyn & vancomycin - Blood and wound cultures pending - Trend CBC COPD - current SOB more likely secondary to fluid overload, if no improvement with diuresis, may consider adjuestment to COPD medications - Advair, Spiriva, DuoNeb - Home dose of prednisone 15mg daily - 3L O2 via nasal cannula during the day, Bipap overnight MGUS - diagnosed at last admission, followed by Dr. Delong - Pending outpatient tests can be ordered once acute issues dealt with: CBC w/ diff, CMP, immunofixation - 24 hr urine, immunonfixation - serum, kappa/Lambda light chains - free w/ ratio - serum, protein electrophoresis panel -24 hr urine , serum protein electrophoresis, metastatic skeletal survery HTN - BP in adequate range - Metoprolol 150mg daily + Verapamil 240mg daily DM - last HbA1c 6.3 on 05/20/16 - Lantus 40 units BID + ISS - Accu check ac/hs CKD III - Creatinine 1.6 currently at baseline. Anticipating changes with aggressive diuresis. Nephrology consulted - recs appreciated - Monitor via BMP Chronic venous insufficiency - bilateral, chronic without recent change, not likely to be Cellulitis. - Keep legs elevated Gout - asymptomatic - Allopurinol 100mg daily Chronic pain - Pregabalin VTE prophylaxis - Heparin Continued [facility] stay due to: multiple IV medications needed Discharge planning: home Resident Tracking Resident Involvement: Resident Care Provided Care Provided: Adult Hospital Medicine Reviewed: Pt Seen/Exam by Me History Resident Physician Supervision Note: I interviewed and examined the patient. Discussed with Dr. Laughlin and agree with findings and plan as documented in the note. Any exceptions or clarifications are listed here: Patient short of breath with exertion, diuresing. Nephrology started her on a Lasix drip and will stop the Bumex. She reports her legs have been red and with chronic cellulitis for over a year has been on daily Cipro and/or Doxy for over a year. Says that her leg is much more red recently more on the left as well as with the abdominal erythema. Vitals and telemetry reviewed Morbidly obese, no acute distress Regular rate and rhythm no murmurs gallops or rubs Clear to auscultation bilaterally but decreased breath sounds throughout Abdomen morbidly obese abdomen with extremely large pannus, lifted pannus and has patch of erythema under left side with no abscess Skin in addition to abdomen as above, with bilateral lower extremity erythema from the knee down with wraps in place and not removed as wound care distress. 60-year-old morbidly obese female with chronic lower extremity edema likely secondary to morbid obesity and erythematous legs most likely not due to chronic cellulitis but more so due to chronic venous stasis, here with acute cellulitis of the lower extremities and left lower abdomen as well as severe fluid overload with acute on chronic right sided systolic CHF. -Agree with Lasix drip given history of difficulty with hypotension in the past -Continue vancomycin alone, Zosyn discontinued by ID and recommends 14 days of doxycycline upon discharge Documented By: Kat Anderson
[2016-07-11] MEDS: BUMETANIDE IV 2 MG in SYRINGE 0 ML IV SCH ×3 (07:42→17:00)
[2016-07-11] MEDS: TIOTROPIUM BROMIDE 5 PUFF/90 MCG INH INH SCH (07:43)
[2016-07-11] MEDS: CHOLECALCIFEROL 1000 INTER.UNIT TAB PO SCH (07:44)
[2016-07-11] MEDS: FLUTICASONE/SALMETEROL (ADVAIR) 500/50 INH 14 PUFF INH SCH ×2 (07:44→21:10)
[2016-07-11] MEDS: TOCOPHERYL, DL-ALPHA 400 INTER.UNIT CAP PO SCH (07:44)
[2016-07-11] MEDS: ALLOPURINOL 100 MG TAB PO SCH (07:45)
[2016-07-11] MEDS: METOPROLOL SUCC 50MG EXT REL TAB PO SCH (07:45)
[2016-07-11] MEDS: ATORVASTATIN 20 MG TAB PO SCH (07:45)
[2016-07-11] MEDS: VERAPAMIL HCL 240 MG TABCR PO SCH (07:45)
[2016-07-11] MEDS: CEROVITE ADV FORMULA TAB PO SCH (07:45)
[2016-07-11] MEDS: PYRIDOXINE HCL 50 MG TAB PO SCH (07:46)
[2016-07-11] MEDS: POTASSIUM CHLORIDE 20 MEQ TABCR PO SCH (07:46)
[2016-07-11] MEDS: INSULIN ASPART 100 UNITS/ML 3 ML PEN SC SCH ×4 (07:51→21:18)
[2016-07-11] MEDS: PREGABALIN 150 MG CAP PO SCH ×3 (07:52→21:20)
[2016-07-11] MEDS: CYANOCOBALAMIN 2,500 MCG SUBL TAB PO SCH (07:56)
[2016-07-11] MEDS ORDERED: INSULIN GLARGINE SC SCH (09:00)
[2016-07-11] MEDS ORDERED: VANCOMYCIN INJ 1,000 MG in SODIUM CHLORIDE 0.9% 250ML 250 ML IV SCH (09:00)
--- NOTE | 2016-07-11 09:36 | Pharmacy Progress Note ---
Pharmacy Antibiotic Consult Date of Service: July 11, 2016. Pharmacy Dosing Scope Pharmacy is consulted to initiate VANCOMYCIN + ZOSYN IV dosing therapy, order appropriate labs and adjust drug dose/frequency. Subjective The patient is a 60 year old female admitted on July 10, 2016 at 20:44. Objective Height (Feet): 5 Height (Inches): 4.00 Weight (Kilograms): 154.800 Lab Results (24hrs): Micro Results: Item Value Date Time Blood Culture Received 07/10/162239 Blood Pending Blood Culture Received 07/10/162234 Blood Pending Assessment & Plan ASSESSMENT: 60yo female initiated on IV Vanco + Zosyn for chronic LE cellulitis. Pharmacy dosed IV Vanco for patient in 08/2015 admission. * Weight is up 10kg from admission in 05/2016. Will use baseline weight of ~ 145kg for vancomycin dosing. * Pt with extreme obesity (BMI > 50) putting her at risk for rapid vancomycin accumulation once steady state is reached and large volume of distribution is filled * Appears baseline Scr ~ 1.6 - 2mg/dl * Vancomycin + Zosyn combination can be nephrotoxic, therefore will monitor vancomycin levels frequently and adjust as needed to prevent toxicity PLAN: VANCOMYCIN: * Loading dose: Vancomycin 2,800mg (~ 19mg/kg) IV X 1 dose then: * Vancomycin 1,850mg (~13mg/kg) IV every 18 hours. * This dosing is c/w dosing from 08/2015 admission. However, using a slightly larger dose since renal function currently better than that adm (Scr 1.9 in 2015, Scr 1.6 currently) * Goal trough level estimate: between 10 - 20 mcg/mL for Skin/Skin Structure infection. * Trough level has been ordered for: prior to 3rd maintenance dose. * This will not be steady state, however, important to check levels early d/t vanco + zosyn combo and obesity. ZOSYN: Piperacillin/Tazobactam Extended Infusion: * 4.5 grams IV bolus, 4.5 grams IV every 8 hours for est CrCL > 20mL/min. * 4.5 grams IV bolus, 4.5 grams IV every 12 hours for est CrCL 20mL/min or below * Consider this more aggressive regimen if: critically ill, obese with BMI 35 or above, cystic fibrosis, EARLINE > 16 g/mL Pharmacy will continue to follow and will adjust dose/frequency as necessary. Thank you
--- NOTE | 2016-07-11 09:52 | Pharmacy Progress Note ---
Glycemic Control Intl Consult Date of Service July 11, 2016. Scope Glycemic Pharmacist consulted by Dr Overton on 07/10/16 for glycemic control and to write orders per [facility] inpatient glycemic control protocol Objective Weight (Kilograms): 154.800 Accuchecks BSG (last 24hrs): Test 07/10/16 17:17 07/10/16 23:46 07/11/16 03:08 07/11/16 05:39 Random Glucose 108 mg/dl (70-99) 82 mg/dl (70-99) Bedside Glucose 140 mg/dl (70-90) 111 mg/dl (70-90) Test 07/11/16 06:27 Bedside Glucose 76 mg/dl (70-90) Laboratory Data (last 24hrs) Test 07/10/16 17:17 07/10/16 18:07 07/11/16 05:39 Anion Gap 2.0 mmol/L 3.0 mmol/L BUN/Creatinine Ratio 21.6 21.2 Blood Urea Nitrogen 35 mg/dl 34 mg/dl Creatinine 1.60 mg/dl 1.60 mg/dl Potassium Level 3.8 mmol/L 3.5 mmol/L Sodium Level 139 mmol/L 141 mmol/L White Blood Count 8.37 K/uL 6.63 K/uL Red Blood Count 3.40 M/uL 3.37 M/uL Hemoglobin 10.5 g/dL 10.2 g/dL Hematocrit 34.2 % 33.6 % Mean Corpuscular Volume 100.6 fL 99.7 fL Mean Corpuscular Hemoglobin 30.9 pg 30.3 pg Mean Corpuscular Hemoglobin Concent 30.7 g/dl 30.4 g/dl Platelet Count 215 K/uL 226 K/uL Mean Platelet Volume 9.7 fL 9.7 fL Neutrophils (%) (Auto) 76.6 % 66.7 % Lymphocytes (%) (Auto) 12.4 % 19.6 % Monocytes (%) (Auto) 9.3 % 10.9 % Eosinophils (%) (Auto) 1.0 % 2.0 % Basophils (%) (Auto) 0.2 % 0.3 % Neutrophils # (Auto) 6.41 K/uL 4.43 K/uL Lymphocytes # (Auto) 1.04 K/uL 1.30 K/uL Monocytes # (Auto) 0.78 K/uL 0.72 K/uL Eosinophils # (Auto) 0.08 K/uL 0.13 K/uL Basophils # (Auto) 0.02 K/uL 0.02 K/uL Recent Pertinent Medications Outpatient Anti-diabetic Regimen: * Toujeo 70 units SQ BID * NovoLog * 50 units SQ with breakfast * 50 units SQ with lunch * 90 units SQ with dinner * 40 units SQ at bedtime * Ms Gaytan takes prednisone at home * A1c = 6.3% 04/2016 Risk Factors for Insulin Resistance: * Infection: vancomycin and piperacillin/tazobactam * Diet: T2DM/Low Na, 1500mL volume Assessment & Plan ASSESSMENT: 07/11/16 * Type 2 diabetic known from prior admissions and consults, the last being in May 2016 * A1c is WNL and shows adequate glycemic control as an outpatient with ~370 units of insulin per day * Large doses of insulin needed as an outpatient, however needs change when admitted * large doses required when on ATC steroids * Currently, BSGs are WNL * Transition Toujeo to Lantus as the former is not on formulary * Doses of insulin will be decreased initially and titrated based on response as inpatient needs usually vary compared to home regimen * NovoLog parameters based on historical data * Currently, no steroid is ordered (takes prednisone at home) * may decrease overall insulin needs. PLAN FOR INPATIENT GLYCEMIC CONTROL: * Lantus SQ BID * received 70 units last evening (07/10) * decrease to 40 units SQ BID - titrate per response * NovoLog SQ AC and HS * Correction factor: 5mg/dL/unit * Carb ratio: 1 unit per 2 g of CHO consumed * Goal range: 120-160mg/dL * A1c - current * added to discharge instructions RECOMMENDATIONS FOR DISCHARGE: * Likely, Ms Gaytan can continue her home regimen at discharge. Continue to monitor steroid dose and adjust insulins accordingly. * Please note that the plan above was derived based on current level of insulin resistance and hospital stress. These recommendations are appropriate for inpatient admission only. Plan of care upon discharge will need to be reassessed to avoid potential outpatient hypo/hyperglycemia. Thank you.
--- NOTE | 2016-07-11 09:52 | Progress Note ---
Progress Note Date of Service July 11, 2016. Progress Note ID Consult Dictated # [id number] A/P: 1. Abd wall cellulitis -Continue vanco, will stop zosyn -Maintain IV for now, upon d/c can change to doxy 100mg po bid with food x 14 days -Suggest addition of antifungal powder as well -No evidence of LE cellulitis, suspect chronic changes -thank you
--- NOTE | 2016-07-11 10:53 | INFECT. DISEASE CONSULTATION ---
DATE OF CONSULTATION: 07/11/2016 DATE OF CONSULTATION: 07/11/2016. REQUESTING PHYSICIAN: Dr. Overton. HISTORY OF PRESENT ILLNESS: This is a 60-year-old female who was recently discharged from the hospital. She states she was admitted for 9 days. Since her discharge she has had a 26-pound weight gain. She does complain of increasing fluid retention and weeping from both lower extremities. She was following with physical therapy, but she has not began her therapy sessions as of yet. She also was complaining of some abdominal swelling and skin irritation. She was admitted for treatment of cellulitis. Blood cultures were obtained and are pending. She has been afebrile since admission and her white blood cell count is normal at 6.6. A chest x-ray showed a questionable right lower lobe infiltrate; however, the patient denies any cough or chest pain. She does chronically wear oxygen and has not had any worsening shortness of breath recently. Her creatinine is mildly elevated at 1.6. She was started empirically on Zosyn and vancomycin. She is tolerating these antibiotics well. Currently, she is out of bed to chair. She denies any chest pain, cough, shortness of breath, nausea, vomiting, diarrhea or abdominal pain. Her only complaint is of pain in the left groin where she has had some weeping of fluid. All remaining review of systems are reviewed and are unremarkable except or as noted. PAST MEDICAL HISTORY: Significant for cervical disc disease, CHF, COPD, type 2 diabetes, ovarian cyst, pulmonary collapse and sciatica. FAMILY HISTORY: Noncontributory. SOCIAL HISTORY: Negative for alcohol use, tobacco use or drug use. She is and lives with her family. ALLERGIES: SHE HAS ALLERGIES TO DAPTOMYCIN, CODEINE, BACTRIM AND IODINE. CURRENT MEDICATIONS: Include vancomycin, allopurinol, Lipitor, vitamin D, Advair, Toprol-XL, multivitamins, potassium, vitamin B6, Spiriva, verapamil, vitamin B12, vitamin E, Lantus, DuoNeb, Zosyn, Lyrica, subQ heparin, Tylenol. PHYSICAL EXAMINATION: VITAL SIGNS: She is afebrile, pulse is 86, respiratory rate is 22, blood pressure is 120/63, oxygen saturation is 93% on 3 liters nasal cannula. GENERAL: She is awake, alert and oriented x3. She is in no acute distress. HEAD, EYES, EARS, NOSE, AND THROAT: Mucous membranes are moist. Extraocular muscles are intact. HEART: Regular. LUNGS: Decreased at the bases bilaterally. ABDOMEN: Reveals there to be erythema along the pannus with some excoriation in the left groin. EXTREMITIES: Examination of the lower extremities reveals bilateral edema and findings consistent with chronic venous stasis changes. There is no warmth, tenderness or weeping of fluid from the lower extremities. LABORATORY STUDIES: CBC today reveals a white blood cell count of 6.6, hemoglobin 10.2, platelets are 226. Chemistry panel reveals a sodium of 141, potassium 3.5, chloride 100, bicarbonate 38, BUN 34, creatinine 1.6, glucose is 76. LFTs are within normal limits. Blood cultures are pending. Chest x-ray is reviewed above. ASSESSMENT AND PLAN: Abdominal wall cellulitis. I do not see any evidence of abscess; however, she can be maintained on intravenous antibiotics while hospitalized. I would discontinue her Zosyn and maintain vancomycin therapy. Upon discharge, I would recommend transition to doxycycline 100 mg twice daily with food for a total of 14 days. Antifungal powder may also be of some benefit as she has significant moisture in her skin fold. I do not see any evidence of lower extremity cellulitis and suspect skin changes seen there are more chronic in nature. Thank you for this consultation.
[2016-07-11] MEDS ORDERED: POTASSIUM CHLORIDE 10 MEQ TABCR PO ONE (12:15)
[2016-07-11] MEDS ORDERED: PANTOprazole SOD 40 MG TAB PO ONE (12:15)
[2016-07-11] MEDS ORDERED: POTASSIUM CHLORIDE 10 MEQ TABCR PO STA (13:40)
--- NOTE | 2016-07-11 14:15 | Nephrology Consultation ---
Nephrology Consultation Date & Providers Date of Consultation: July 11, 2016. Primary Care Provider: Emily Isaac C.R.N.P Referring Provider: Reason for Consultation Evaluation of progessive volume overload in this patient with obesity, cor pulmonale and stage III CKD History of Present Illness Mrs. Gaytan is a 60 year old white female who is seen at the request of Dr. Overton for evaluation of progressive volume overload. Medical records in the hospital EMR were reviewed and are summarized as follows: The patient's medical history is significant for stage III CKD (baseline creatinine 1.7 - 2.0) , HTN, obesity (BMI 52) and obesity hypoventilation syndrome. In 07/15 she had an echocardiogram which revealed LVEF 70%, diastolic dysfunction and RVSP 40 mm HG. As an outpatient she has been monitored closely by Pulmonology and Cardiology. Pulmonology recommended a sleep study and CPAP therapy. The patient declined. Cardiology had been adjusting the patient's diuretic regimen. In 06/16 Mrs. Gaytan was hospitalized w/ volume overload and hypercalcemia. Hypercalcemia evaluation revealed the presence on monoclonal light chains in the serum. Patient is currently undergoing Oncology evaluation by Dr. Delong. Mrs. Gaytan responded to aggressive loop diuretic therapy. At the time of discharge her weight was down to 145 kg and she was able to ambulate short distances. She was maintained on Bumex 3 mg po TID. Despite this regimen Mrs. Gaytan reports that she has again developed fluid retention. Her weight is up 10 kg and she now has weeping bullae on her legs and has developed cellulitis of her abdominal wall. She has been admitted to the hospital for antibiotic therapy and IV diuretics. Past Medical/Surgical History Medical: # CKD stage III (moderate impairment). Baseline creatinine has been ~ 1.7 - 2.0 w/ EGFR 32 cc/min. Renal ultrasound 05/11 revealed structurally normal kidneys. Patient's renal impairment is on the basis of diabetic nephropathy, hypertensive nephrosclerosis and impaired perfusion associated with right-sided heart failure. # HTN - BRYSON inhibitor therapy stopped due to relative hypotension # AODM - no retinopathy # Obesity (BMI 56) # COPD - on chronic O2 at 3 L/min ATC # Lung nodule - stable over several years of observation by pulmonology # Arthritis involving the hands - management as per Dr. Giordano # Chronic lower extremity edema due to obesity hypoventilation syndrome/ pulmonary hypertension. This has been managed with loop diuretics and Bryson bandage wraps. Echocardiogram October 2014 revealed LVEF 55 - 60%, mild LVH, RVSP 45, mild RV dilation and moderate TR # Serum monoclonal light chain - monitored by Dr. Delong Allergies Coded Allergies: Daptomycin (Verified Allergy, Mild, HIVES, 06/14/16) itching Codeine (Verified Allergy, Unknown, unknown, 06/14/16) has tolerated morphine Iodine (Verified Allergy, Unknown, 06/14/16) Shellfish (Verified Allergy, Unknown, 06/14/16) Sulfamethoxazole w/Trimethoprim (Verified Allergy, Unknown, RASH, 06/14/16) Inpatient Medications Current Inpatient Medications Medications (Trade) Dose Ordered Sig/Duyen Route Start Time Stop Time Status Last Admin Dose Admin Heparin Sodium (Porcine) (Heparin Sq 5000 Unit/0.5ml) 5,000 unit Q8 SQ 07/10/16 22:00 08/09/16 21:59 07/11/16 05:32 5,000 UNIT Acetaminophen (Tylenol Tab) 650 mg Q4H PRN PO 07/10/16 20:30 08/09/16 20:29 Nitroglycerin (Nitrostat Tab) 0.4 mg UD PRN SL 07/10/16 20:30 08/09/16 20:29 Allopurinol (Zyloprim Tab) 100 mg DAILY PO 07/11/16 09:00 08/10/16 08:59 07/11/16 07:45 100 MG Atorvastatin Calcium (Lipitor Tab) 40 mg DAILY PO 07/11/16 09:00 08/10/16 08:59 07/11/16 07:45 40 MG Cholecalciferol (Vitamin D Tab) 2,000 inter.unit DAILY PO 07/11/16 09:00 08/10/16 08:59 07/11/16 07:44 2,000 INTER.UNIT Salmeterol Xinafoate/ Fluticasone (Advair Diskus 500/50 Inh) 1 puff BID INH 07/11/16 09:00 08/10/16 08:59 07/11/16 07:44 1 PUFF Metoprolol Succinate (Toprol Xl Tab) 150 mg DAILY PO 07/11/16 09:00 08/10/16 08:59 07/11/16 07:45 150 MG Miconazole Nitrate (Desenex Powder) 1 appln PRN PRN EXT 07/10/16 21:15 08/09/16 21:14 Multivitamins/ Minerals (Multivitamin W/ Minerals Tab) 1 tab DAILY PO 07/11/16 09:00 08/10/16 08:59 07/11/16 07:45 1 TAB Potassium Chloride (Klor-Con Tab) 20 meq DAILY PO 07/11/16 09:00 08/10/16 08:59 07/11/16 07:46 20 MEQ Pregabalin (Lyrica Cap) 150 mg TID PO 07/10/16 23:00 08/09/16 22:59 07/11/16 07:52 150 MG Pyridoxine HCl (Vitamin B-6 Tab) 200 mg DAILY PO 07/11/16 09:00 08/10/16 08:59 07/11/16 07:46 200 MG Tiotropium [place] (Spiriva Handihaler Inhaler) 1 puff DAILY INH 07/11/16 09:00 08/10/16 08:59 07/11/16 07:43 1 PUFF Verapamil HCl (Calan-Sr Tab) 240 mg DAILY PO 07/11/16 09:00 08/10/16 08:59 07/11/16 07:45 240 MG Cyanocobalamin (Vitamin B-12 Tab) 2,500 mcg DAILY PO 07/11/16 09:00 08/10/16 08:59 07/11/16 07:56 2,500 MCG Miscellaneous Information (Order Awaiting Action) 1 ea QS N/A 07/10/16 22:00 08/09/16 21:59 [id number] Acetate (Vitamin E Cap) 800 interunit DAILY PO 07/11/16 09:00 08/10/16 08:59 07/11/16 07:44 800 INTERUNIT Albuterol/ Ipratropium 3 ml 3 ml QIDR INH 07/11/16 08:00 08/10/16 07:59 07/11/16 11:14 3 ML Bumetanide/Syringe (Bumex IV/ Syringe) 8 ml @ 4 mls/min QID IV 07/11/16 09:00 08/10/16 08:59 07/11/16 12:13 4 MLS/MIN Glucose (Glucose 40% Gel) 15-30 GRAMS 15 GRAMS... UD PRN PO 07/10/16 22:15 08/09/16 22:14 Glucose (Glucose Chew Tab) 4-8 Tablets 4 Tabl... UD PRN PO 07/10/16 22:15 08/09/16 22:14 Dextrose (Dextrose 50% 50ML Syringe) 25-50ML OF 50% DW IV FOR... UD PRN IV 07/10/16 22:15 08/09/16 22:14 Glucagon (Glucagon Inj) 1 mg UD PRN SQ 07/10/16 22:15 08/09/16 22:14 Vancomycin HCl (Consult) 1 ea UD PRN N/A 07/10/16 23:30 08/09/16 23:29 Miscellaneous Information (Consult Glycemic Management Pharmacy) 1 ea UD PRN N/A 07/11/16 00:30 08/10/16 00:29 Insulin Aspart SLIDING SCALE ACHS SC 07/11/16 07:00 08/10/16 06:59 07/11/16 12:17 9 UNITS Vancomycin HCl/ Sodium Chloride (Vancomycin Inj/ Nss 500ml) 537 ml @ 200 mls/hr Q18H IV 07/11/16 20:00 07/21/16 19:59 Prednisone (PredniSONE TAB) 15 mg QAM PO 07/12/16 09:00 08/11/16 08:59 Pantoprazole Sodium (Protonix Tab) 40 mg QAM PO 07/12/16 09:00 08/11/16 08:59 Insulin Glargine SEE PROTOCOL BID SC 07/11/16 21:00 08/10/16 20:59 Furosemide 100 mg/ Dextrose 0 ml @ 0 mls/hr Q0M IV 07/11/16 13:45 07/13/16 13:44 UNV Furosemide/ Dextrose (Lasix Inj/D5 100ml) 0 ml @ 0 mls/hr Q0M IV 07/13/16 13:45 07/15/16 13:44 UNV Potassium Chloride (Klor-Con M10) 20 meq NOW STAT PO 07/11/16 13:40 07/11/16 13:41 UNV Family History Cancer Diabetes mellitus Gallbladder disease Heart disease Lung disease Negative for CKD / ESRD Social History Smoking Status: Former Smoker Drug Use: none Marital Status: Housing Status: lives with family Occupation: unemployed . Lives w/ . Remote h/o tobacco use Review of Systems Constitutional: No fever Respiratory: + shortness of breath Cardiovascular: No chest pain Abdomen: No pain A complete review of systems was performed. Pertinent positives are noted above. All other systems are negative. Physical Exam Date Time Temp Pulse Resp B/P Pulse Ox O2 Delivery O2 Flow Rate FiO2 07/11/16 12:07 36.9 87 20 117/57 95 Nasal Cannula 3.0 07/11/16 12:00 Nasal Cannula 3.0 07/11/16 11:14 76 16 93 Nasal Cannula 3.0 07/11/16 08:01 36.5 86 22 120/63 93 Nasal Cannula 3.0 07/11/16 08:00 Nasal Cannula 3.0 07/11/16 07:15 76 16 93 Nasal Cannula 3.0 07/11/16 04:10 36.8 79 16 130/67 92 CPAP 07/11/16 04:00 BiPAP 3.0 07/11/16 03:39 86 3.0 07/10/16 23:59 Nasal Cannula 4.0 07/10/16 22:37 37.1 81 24 144/77 94 Nasal Cannula 5.0 07/10/16 21:58 81 24 145/60 98 Nasal Cannula 3.0 07/10/16 19:07 69 24 128/61 95 Nasal Cannula 3.0 07/10/16 15:44 36.6 87 20 133/108 92 Nasal Cannula 4.0 General Appearance: + obese Head: atraumatic, + pertinent finding (cushingoid appearing) Eyes: PERRL, EOMI Neck: + pertinent finding (short, thick. Unable to assess for JVD) Respiratory/Chest: + crackles (at bases bilaterally) Cardiovascular: regular rate, rhythm Abdomen/GI: non tender, + distended Extremities/Musculoskelatal: + pertinent finding (tense lower extremity edema with weeping leg bullae) Neurologic/Psych: alert, oriented x 3 Laboratory Results Last 24 Hours Test 07/10/16 17:17 07/10/16 18:07 07/10/16 23:46 07/11/16 03:08 Sodium Level 139 mmol/L Potassium Level 3.8 mmol/L Chloride Level 98 mmol/L Carbon Dioxide Level 39 mmol/L Anion Gap 2.0 mmol/L Blood Urea Nitrogen 35 mg/dl Creatinine 1.60 mg/dl Est Creatinine Clear Calc Drug Dose 55.6 ml/min Estimated GFR () 39.6 Estimated GFR (Non- 34.2 BUN/Creatinine Ratio 21.6 Random Glucose 108 mg/dl Calcium Level 8.9 mg/dl Magnesium Level 2.5 mg/dl Total Bilirubin 0.3 mg/dl Direct Bilirubin < 0.1 mg/dl Aspartate Amino Transf (AST/SGOT) 27 U/L Alanine Aminotransferase (ALT/SGPT) 37 U/L Alkaline Phosphatase 82 U/L Total Creatine Kinase 55 U/L Creatine Kinase MB 2.0 ng/ml Creatine Kinase MB Ratio 3.6 Troponin I < 0.015 ng/ml Pro-B-Type Natriuretic Peptide 296 pg/ml Total Protein 8.6 gm/dl Albumin 2.7 gm/dl White Blood Count 8.37 K/uL Red Blood Count 3.40 M/uL Hemoglobin 10.5 g/dL Hematocrit 34.2 % Mean Corpuscular Volume 100.6 fL Mean Corpuscular Hemoglobin 30.9 pg Mean Corpuscular Hemoglobin Concent 30.7 g/dl Platelet Count 215 K/uL Mean Platelet Volume 9.7 fL Neutrophils (%) (Auto) 76.6 % Lymphocytes (%) (Auto) 12.4 % Monocytes (%) (Auto) 9.3 % Eosinophils (%) (Auto) 1.0 % Basophils (%) (Auto) 0.2 % Neutrophils # (Auto) 6.41 K/uL Lymphocytes # (Auto) 1.04 K/uL Monocytes # (Auto) 0.78 K/uL Eosinophils # (Auto) 0.08 K/uL Basophils # (Auto) 0.02 K/uL RDW Standard Deviation 69.1 fL RDW Coefficient of Variation 18.8 % Immature Granulocyte % (Auto) 0.5 % Immature Granulocyte # (Auto) 0.04 K/uL Nucleated RBC Absolute Count (auto) 0.08 K/uL Nucleated Red Blood Cells % 0.9 % Bedside Glucose 140 mg/dl 111 mg/dl Test 07/11/16 05:39 07/11/16 06:27 07/11/16 11:36 White Blood Count 6.63 K/uL Red Blood Count 3.37 M/uL Hemoglobin 10.2 g/dL Hematocrit 33.6 % Mean Corpuscular Volume 99.7 fL Mean Corpuscular Hemoglobin 30.3 pg Mean Corpuscular Hemoglobin Concent 30.4 g/dl Platelet Count 226 K/uL Mean Platelet Volume 9.7 fL Neutrophils (%) (Auto) 66.7 % Lymphocytes (%) (Auto) 19.6 % Monocytes (%) (Auto) 10.9 % Eosinophils (%) (Auto) 2.0 % Basophils (%) (Auto) 0.3 % Neutrophils # (Auto) 4.43 K/uL Lymphocytes # (Auto) 1.30 K/uL Monocytes # (Auto) 0.72 K/uL Eosinophils # (Auto) 0.13 K/uL Basophils # (Auto) 0.02 K/uL RDW Standard Deviation 68.0 fL RDW Coefficient of Variation 18.9 % Immature Granulocyte % (Auto) 0.5 % Immature Granulocyte # (Auto) 0.03 K/uL Nucleated RBC Absolute Count (auto) 0.07 K/uL Nucleated Red Blood Cells % 1.1 % Sodium Level 141 mmol/L Potassium Level 3.5 mmol/L Chloride Level 100 mmol/L Carbon Dioxide Level 38 mmol/L Anion Gap 3.0 mmol/L Blood Urea Nitrogen 34 mg/dl Creatinine 1.60 mg/dl Est Creatinine Clear Calc Drug Dose 54.5 ml/min Estimated GFR () 39.6 Estimated GFR (Non- 34.2 BUN/Creatinine Ratio 21.2 Random Glucose 82 mg/dl Calcium Level 8.8 mg/dl Total Bilirubin 0.4 mg/dl Aspartate Amino Transf (AST/SGOT) 15 U/L Alanine Aminotransferase (ALT/SGPT) 32 U/L Alkaline Phosphatase 80 U/L Total Protein 8.7 gm/dl Albumin 2.6 gm/dl Globulin 6.1 gm/dl Albumin/Globulin Ratio 0.4 Bedside Glucose 76 mg/dl 95 mg/dl Impression (1) Cor pulmonale, chronic (2) Obesity hypoventilation syndrome (3) Abdominal wall cellulitis (4) Chronic kidney disease (CKD) stage G3b/A1, moderately decreased glomerular filtration rate (GFR) between 30-44 mL/min/1.73 square meter and albuminuria creatinine ratio less than 30 mg/g (5) Diabetes (6) Anasarca Recommendations EDEMA: -- Related to obesity and right heart failure -- Failed outpatient oral diuretic regimen -- Requires high dose IV diuretic to alleviate tense edema and weeping bullae -- Attempts at diuresis in the past have been met with hypotension, weakness and progressive metabolic alkalosis -- Will recheck PRP and Mg in am CHRONIC KIDNEY DISEASE: -- Baseline creatinine has been 1.7 - 2.0 -- Discussed the possibility of worsening kidney function in response to IV diuretics. Indications/benefits/risks/alternatives to vascular access placement and HD discussed in detail with the patient and her today. They voiced understanding. Mrs. Gaytan is now agreeable to HD if her kidney function declines further. I have provided Mr. Gaytan with contact information for the [facility] to schedule dialysis education classes and tour the unit ID: -- Antibiotic therapy as per ID automobile sales consultant 70 minute visit provided to the patient today. This was necessary to review her medical record, perform physical and discuss possible renal replacement therapy HYPERCALCEMIA: -- Serum calcium has corrected -- Serum free light chain ration was markedly elevated. Patient has been undergoing outpatient evaluation for a monoclonal gammopathy by Dr. Delong
[2016-07-11] MEDS: DEXTROSE 5% IV SCH (15:56)
[2016-07-11] MEDS: FUROSEMIDE IV SCH (15:56)
[2016-07-11] MEDS ORDERED: VANCOMYCIN INJ 2,000 MG in SODIUM CHLORIDE 0.9% 500ML 500 ML IV SCH (20:00)
[2016-07-11] MEDS ORDERED: INSULIN ASPART 100 UNITS/ML 3 ML PEN SQ SCH (21:00)
[2016-07-11] MEDS: INSULIN GLARGINE SC SCH (21:19)
[2016-07-11] MEDS: ACETAMINOPHEN 325 MG TAB PO PRN (21:25)
[2016-07-11] MEDS: VANCOMYCIN INJ 1,850 MG in SODIUM CHLORIDE 0.9% 500ML 500 ML IV SCH (21:26)
[2016-07-12] VITALS (13 sets, daily range): BP systolic 118–145; BP diastolic 60–70; PULSE 74–102; TEMP 36.6–37.1; O2SAT 91–97
[2016-07-12] MEDS: FUROSEMIDE IV SCH ×2 (03:35→16:00)
[2016-07-12] MEDS: DEXTROSE 5% IV SCH ×2 (03:35→16:00)
[2016-07-12] MEDS: HEPARIN SOD 5000 UNIT/0.5 ML CARP SQ SCH ×3 (05:51→21:11)
[2016-07-12 06:08] LABS: BASO % 0.2 %; BASO ABS # 0.01 K/uL (0-0.2); EOS % 2.1 %; IG% 0.8 %; LYMPH % 13.2 %; MEAN CELL VOLUME 101.2 fL (80-100); MEAN CORPUSCULAR HEMOGLOBIN 30.4 pg (25-34); MEAN PLATELET VOLUME 9.7 fL (7.4-10.4); MONO % 13.9 %; NEUT % 69.8 %; PLATELET COUNT 216 K/uL (130-400); RED BLOOD COUNT 3.26 M/uL (4.2-5.4); WHITE BLOOD COUNT 6.05 K/uL (4.8-10.8)
[2016-07-12 06:29] LABS: COMPLETE YES
[2016-07-12 06:49] LABS: ALKALINE PHOSPHATASE 78 U/L (45-117); ALT/SGPT 32 U/L (12-78); AST/SGOT 13 U/L (15-37); BLOOD UREA NITROGEN 33 mg/dl (7-18); BUN/CREATININE RATIO 19.6 (10-20); CALCIUM 8.3 mg/dl (8.5-10.1); CARBON DIOXIDE 41 mmol/L (21-32); CHLORIDE 98 mmol/L (98-107); GLUCOSE 184 mg/dl (70-99); MAGNESIUM 2.6 mg/dl (1.8-2.4); POTASSIUM 3.6 mmol/L (3.5-5.1); SODIUM 140 mmol/L (136-145)
[2016-07-12] MEDS: ALBUT/IPRATROP 3MG/0.5MG NEB 3 ML VIAL INH SCH ×4 (06:59→18:56)
[2016-07-12] MEDS: FLUTICASONE/SALMETEROL (ADVAIR) 500/50 INH 14 PUFF INH SCH ×2 (08:28→21:04)
[2016-07-12] MEDS: TIOTROPIUM BROMIDE 5 PUFF/90 MCG INH INH SCH (08:29)
[2016-07-12] MEDS: METOPROLOL SUCC 50MG EXT REL TAB PO SCH (08:30)
[2016-07-12] MEDS: CEROVITE ADV FORMULA TAB PO SCH (08:30)
[2016-07-12] MEDS: VERAPAMIL HCL 240 MG TABCR PO SCH (08:30)
[2016-07-12] MEDS: ALLOPURINOL 100 MG TAB PO SCH (08:30)
[2016-07-12] MEDS: PANTOprazole SOD 40 MG TAB PO SCH (08:31)
[2016-07-12] MEDS: TOCOPHERYL, DL-ALPHA 400 INTER.UNIT CAP PO SCH (08:31)
[2016-07-12] MEDS: PYRIDOXINE HCL 50 MG TAB PO SCH (08:31)
[2016-07-12] MEDS: CYANOCOBALAMIN 2,500 MCG SUBL TAB PO SCH (08:32)
[2016-07-12] MEDS: CHOLECALCIFEROL 1000 INTER.UNIT TAB PO SCH (08:33)
[2016-07-12] MEDS: ATORVASTATIN 20 MG TAB PO SCH (08:34)
[2016-07-12] MEDS: POTASSIUM CHLORIDE 20 MEQ TABCR PO SCH (08:34)
[2016-07-12] MEDS: PREGABALIN 150 MG CAP PO SCH ×3 (08:39→21:18)
[2016-07-12] MEDS: INSULIN ASPART 100 UNITS/ML 3 ML PEN SC SCH ×4 (08:46→21:10)
[2016-07-12] MEDS: INSULIN GLARGINE SC SCH ×2 (08:47→21:11)
--- NOTE | 2016-07-12 09:31 | Pharmacy Progress Note ---
Glycemic Control: Progress Nt Date of Service July 12, 2016. Scope Glycemic Pharmacist consulted by Dr Overton on 07/10/16 for glycemic control and to write orders per [facility] inpatient glycemic control protocol. Objective Accuchecks BSG (last 24hrs): Test 07/11/16 11:36 07/11/16 16:30 07/11/16 20:41 07/12/16 05:25 Bedside Glucose 95 mg/dl (70-90) 117 mg/dl (70-90) 282 mg/dl (70-90) Random Glucose 184 mg/dl (70-99) Test 07/12/16 07:00 Bedside Glucose 192 mg/dl (70-90) Laboratory Data (last 24hrs) Test 07/12/16 05:25 Anion Gap 1.0 mmol/L BUN/Creatinine Ratio 19.6 Blood Urea Nitrogen 33 mg/dl Creatinine 1.70 mg/dl Potassium Level 3.6 mmol/L Sodium Level 140 mmol/L White Blood Count 6.05 K/uL Red Blood Count 3.26 M/uL Hemoglobin 9.9 g/dL Hematocrit 33.0 % Mean Corpuscular Volume 101.2 fL Mean Corpuscular Hemoglobin 30.4 pg Mean Corpuscular Hemoglobin Concent 30.0 g/dl Platelet Count 216 K/uL Mean Platelet Volume 9.7 fL Neutrophils (%) (Auto) 69.8 % Lymphocytes (%) (Auto) 13.2 % Monocytes (%) (Auto) 13.9 % Eosinophils (%) (Auto) 2.1 % Basophils (%) (Auto) 0.2 % Neutrophils # (Auto) 4.22 K/uL Lymphocytes # (Auto) 0.80 K/uL Monocytes # (Auto) 0.84 K/uL Eosinophils # (Auto) 0.13 K/uL Basophils # (Auto) 0.01 K/uL Recent Pertinent Medications Outpatient Anti-diabetic Regimen: * Toujeo 70 units SQ BID * NovoLog * 50 units SQ with breakfast * 50 units SQ with lunch * 90 units SQ with dinner * 40 units SQ at bedtime * Ms Gaytan takes prednisone chronically at home * A1c = 6.3% 04/2016 Risk Factors for Insulin Resistance: * Infection: vancomycin * IV fluids: lasix gtt * Diet: T2DM/Low Na, 1500mL volume Assessment & Plan ASSESSMENT: Initial: * Type 2 diabetic known from prior admissions and consults, the last being in May 2016 * A1c is WNL and shows adequate glycemic control as an outpatient with ~370 units of insulin per day * Large doses of insulin needed as an outpatient, however needs change when admitted * large doses required when on ATC steroids * Currently, BSGs are WNL * Transition Toujeo to Lantus as the former is not on formulary * Doses of insulin will be decreased initially and titrated based on response as inpatient needs usually vary compared to home regimen * NovoLog parameters based on historical data Current: * BSGs were on the lower end, but have rebounded after receiving reduced Lantus dose yesterday * Increase Lantus dose based on elevated BSGs and historical data * Prednisone resumed yesterday (on at home) * already increasing Lantus * Current NovoLog parameters used previously with same dose of daily prednisone PLAN FOR INPATIENT GLYCEMIC CONTROL: * Lantus SQ BID * 50 units if BSG is less than 120mg/dL * 60 units if BSG is 120-180mg/dL * 70 units if BSG is above 180mg/dL * NovoLog SQ AC and HS * Correction factor: 5mg/dL/unit * Carb ratio: 1 unit per 2 g of CHO consumed * Goal range: lower to 110-140mg/dL based on age and glycemic control as an outpatient * A1c - current * added to discharge instructions RECOMMENDATIONS FOR DISCHARGE: * Likely, Ms Gaytan can continue her home regimen at discharge. Continue to monitor steroid dose and adjust insulins accordingly. * Please note that the plan above was derived based on current level of insulin resistance and hospital stress. These recommendations are appropriate for inpatient admission only. Plan of care upon discharge will need to be reassessed to avoid potential outpatient hypo/hyperglycemia. Thank you.
--- NOTE | 2016-07-12 12:32 | Nephrology Progress Note ---
Nephrology Progress Note Date of Service July 12, 2016. Chief Complaint Follow-up for chronic kidney disease and diuretic resistant volume overload. Subjective Jazmin was seen and examined in her room this morning. She has been otherwise doing well. Continues to have decent urine output and responding to diuretics drip. Renal function remained stable creatinine 1.7. urine output more than 3 liters. Blood pressure stable. Review of Systems A complete review of systems was performed. Pertinent positives are noted above. All other systems are negative. Vital Signs Last 8 Hrs Date Time Temp Pulse Resp B/P Pulse Ox O2 Delivery O2 Flow Rate FiO2 07/12/16 07:39 37.1 84 20 118/60 95 Nasal Cannula 3.0 07/12/16 06:59 81 16 96 Nasal Cannula 3.0 07/12/16 04:01 36.8 82 20 145/70 97 BiPAP 07/12/16 04:00 Nasal Cannula 3.0 I & O 24-Hour Column 07/12/16 08:00 Intake Total 2833 ml Output Total 3400 ml Balance -567 ml Last Recorded Weight Weight (Kilograms): 155.900 Physical Exam GENERAL: Middle-aged female, morbidly obese, AAA x 3, pleasant,, not in any distress. NECK: Supple, no JVD. RESPIRATORY: Normal breathing efforts, no accessory muscle use, clear to auscultation bilaterally, no wheezes or rales. CARDIOVASCULAR: S1, S2 normal, rate rhythm regular. EXTREMITY: 3 to 4+ bilateral lower extremity edema, with weeping bullae, currently wrapped in dressing NEURO: speech fluent. PSYCHIATRY: Normal mood and judgment Family History Cancer Diabetes mellitus Gallbladder disease Heart disease Lung disease Negative for CKD / ESRD Social History Smoking Status: Former smoker Drug Use: none Marital Status: Housing Status: lives with family Occupation: unemployed . Lives w/ . Remote h/o tobacco use Laboratory Results Past 24 Hours 07/12/16 05:25 Red Blood Count 3.26, Mean Corpuscular Volume 101.2, Mean Corpuscular Hemoglobin 30.4, Mean Corpuscular Hemoglobin Concent 30.0, Mean Platelet Volume 9.7, Neutrophils (%) (Auto) 69.8, Lymphocytes (%) (Auto) 13.2, Monocytes (%) ( Auto) 13.9, Eosinophils (%) (Auto) 2.1, Basophils (%) (Auto) 0.2, Neutrophils # (Auto) 4.22, Lymphocytes # (Auto) 0.80, Monocytes # (Auto) 0.84, Eosinophils # ( Auto) 0.13, Basophils # (Auto) 0.01 07/12/16 05:25 Test 07/11/16 11:36 07/11/16 16:30 07/11/16 20:41 07/12/16 05:25 Bedside Glucose 95 mg/dl (70-90) 117 mg/dl (70-90) 282 mg/dl (70-90) White Blood Count 6.05 K/uL (4.8-10.8) Red Blood Count 3.26 M/uL (4.2-5.4) Hemoglobin 9.9 g/dL (12.0-16.0) Hematocrit 33.0 % (37-47) Mean Corpuscular Volume 101.2 fL (80-100) Mean Corpuscular Hemoglobin 30.4 pg (25-34) Mean Corpuscular Hemoglobin Concent 30.0 g/dl (32-36) Platelet Count 216 K/uL (130-400) Mean Platelet Volume 9.7 fL (7.4-10.4) Neutrophils (%) (Auto) 69.8 % Lymphocytes (%) (Auto) 13.2 % Monocytes (%) (Auto) 13.9 % Eosinophils (%) (Auto) 2.1 % Basophils (%) (Auto) 0.2 % Neutrophils # (Auto) 4.22 K/uL (1.4-6.5) Lymphocytes # (Auto) 0.80 K/uL (1.2-3.4) Monocytes # (Auto) 0.84 K/uL (0.11-0.59) Eosinophils # (Auto) 0.13 K/uL (0-0.5) Basophils # (Auto) 0.01 K/uL (0-0.2) RDW Standard Deviation 71.1 fL (36.4-46.3) RDW Coefficient of Variation 19.0 % (11.5-14.5) Immature Granulocyte % (Auto) 0.8 % Immature Granulocyte # (Auto) 0.05 K/uL (0.00-0.02) Nucleated RBC Absolute Count (auto) 0.12 K/uL (0-0) Nucleated Red Blood Cells % 2.1 % Red Blood Cell Morphology Unremarkable Anion Gap 1.0 mmol/L (3-11) Est Creatinine Clear Calc Drug Dose 51.6 ml/min Estimated GFR () 36.8 Estimated GFR (Non- 31.8 BUN/Creatinine Ratio 19.6 (10-20) Calcium Level 8.3 mg/dl (8.5-10.1) Magnesium Level 2.6 mg/dl (1.8-2.4) Total Bilirubin 0.3 mg/dl (0.2-1) Direct Bilirubin < 0.1 mg/dl (0-0.2) Aspartate Amino Transf (AST/SGOT) 13 U/L (15-37) Alanine Aminotransferase (ALT/SGPT) 32 U/L (12-78) Alkaline Phosphatase 78 U/L (45-117) Total Protein 8.6 gm/dl (6.4-8.2) Albumin 2.6 gm/dl (3.4-5.0) Test 07/12/16 07:00 Bedside Glucose 192 mg/dl (70-90) Allergies Coded Allergies: Daptomycin (Verified Allergy, Mild, HIVES, 06/14/16) itching Codeine (Verified Allergy, Unknown, unknown, 06/14/16) has tolerated morphine Iodine (Verified Allergy, Unknown, 06/14/16) Shellfish (Verified Allergy, Unknown, 06/14/16) Sulfamethoxazole w/Trimethoprim (Verified Allergy, Unknown, RASH, 06/14/16) Medications Current Inpatient Medications Medications (Trade) Dose Ordered Sig/Duyen Route Start Time Stop Time Status Last Admin Dose Admin Heparin Sodium (Porcine) (Heparin Sq 5000 Unit/0.5ml) 5,000 unit Q8 SQ 07/10/16 22:00 08/09/16 21:59 07/12/16 05:51 5,000 UNIT Acetaminophen (Tylenol Tab) 650 mg Q4H PRN PO 07/10/16 20:30 08/09/16 20:29 07/11/16 21:25 650 MG Nitroglycerin (Nitrostat Tab) 0.4 mg UD PRN SL 07/10/16 20:30 08/09/16 20:29 Allopurinol (Zyloprim Tab) 100 mg DAILY PO 07/11/16 09:00 08/10/16 08:59 07/12/16 08:30 100 MG Atorvastatin Calcium (Lipitor Tab) 40 mg DAILY PO 07/11/16 09:00 08/10/16 08:59 07/12/16 08:34 40 MG Cholecalciferol (Vitamin D Tab) 2,000 inter.unit DAILY PO 07/11/16 09:00 08/10/16 08:59 07/12/16 08:33 2,000 INTER.UNIT Salmeterol Xinafoate/ Fluticasone (Advair Diskus 500/50 Inh) 1 puff BID INH 07/11/16 09:00 08/10/16 08:59 07/12/16 08:28 1 PUFF Metoprolol Succinate (Toprol Xl Tab) 150 mg DAILY PO 07/11/16 09:00 08/10/16 08:59 07/12/16 08:30 150 MG Miconazole Nitrate (Desenex Powder) 1 appln PRN PRN EXT 07/10/16 21:15 08/09/16 21:14 07/11/16 21:15 1 APPLN Multivitamins/ Minerals (Multivitamin W/ Minerals Tab) 1 tab DAILY PO 07/11/16 09:00 08/10/16 08:59 07/12/16 08:30 1 TAB Potassium Chloride (Klor-Con Tab) 20 meq DAILY PO 07/11/16 09:00 08/10/16 08:59 07/12/16 08:34 20 MEQ Pregabalin (Lyrica Cap) 150 mg TID PO 07/10/16 23:00 08/09/16 22:59 07/12/16 08:39 150 MG Pyridoxine HCl (Vitamin B-6 Tab) 200 mg DAILY PO 07/11/16 09:00 08/10/16 08:59 07/12/16 08:31 200 MG Tiotropium [place] (Spiriva Handihaler Inhaler) 1 puff DAILY INH 07/11/16 09:00 08/10/16 08:59 07/12/16 08:29 1 PUFF Verapamil HCl (Calan-Sr Tab) 240 mg DAILY PO 07/11/16 09:00 08/10/16 08:59 07/12/16 08:30 240 MG Cyanocobalamin (Vitamin B-12 Tab) 2,500 mcg DAILY PO 07/11/16 09:00 08/10/16 08:59 07/12/16 08:32 2,500 MCG Miscellaneous Information (Order Awaiting Action) 1 ea QS N/A 07/10/16 22:00 08/09/16 21:59 [id number] Acetate (Vitamin E Cap) 800 interunit DAILY PO 07/11/16 09:00 08/10/16 08:59 07/12/16 08:31 800 INTERUNIT Albuterol/ Ipratropium (Duoneb) 3 ml QIDR INH 07/11/16 08:00 08/10/16 07:59 07/12/16 06:59 3 ML Glucose (Glucose 40% Gel) 15-30 GRAMS 15 GRAMS... UD PRN PO 07/10/16 22:15 08/09/16 22:14 Glucose (Glucose Chew Tab) 4-8 Tablets 4 Tabl... UD PRN PO 07/10/16 22:15 08/09/16 22:14 Dextrose (Dextrose 50% 50ML Syringe) 25-50ML OF 50% DW IV FOR... UD PRN IV 07/10/16 22:15 08/09/16 22:14 Glucagon (Glucagon Inj) 1 mg UD PRN SQ 07/10/16 22:15 08/09/16 22:14 Vancomycin HCl (Consult) 1 ea UD PRN N/A 07/10/16 23:30 08/09/16 23:29 Miscellaneous Information (Consult Glycemic Management Pharmacy) 1 ea UD PRN N/A 07/11/16 00:30 08/10/16 00:29 Insulin Aspart SLIDING SCALE ACHS SC 07/11/16 07:00 08/10/16 06:59 07/12/16 08:46 24 UNITS Vancomycin HCl/ Sodium Chloride (Vancomycin Inj/ Nss 500ml) 537 ml @ 200 mls/hr Q18H IV 07/11/16 20:00 07/21/16 19:59 07/11/16 21:26 200 MLS/HR Prednisone (PredniSONE TAB) 15 mg QAM PO 07/12/16 09:00 08/11/16 08:59 07/12/16 08:32 15 MG Pantoprazole Sodium (Protonix Tab) 40 mg QAM PO 07/12/16 09:00 08/11/16 08:59 07/12/16 08:31 40 MG Insulin Glargine SEE PROTOCOL BID SC 07/11/16 21:00 08/10/16 20:59 07/12/16 08:47 70 UNIT Furosemide/ Dextrose (Lasix Inj/D5W 500ml) 500 ml @ 40 mls/hr [id number] IV 07/11/16 15:00 07/15/16 14:59 07/12/16 03:35 40 MLS/HR Impression (1) Cor pulmonale, chronic (2) Obesity hypoventilation syndrome (3) Abdominal wall cellulitis (4) Chronic kidney disease (CKD) stage G3b/A1, moderately decreased glomerular filtration rate (GFR) between 30-44 mL/min/1.73 square meter and albuminuria creatinine ratio less than 30 mg/g (5) Diabetes (6) Anasarca Recommendations EDEMA: -- continue lasix drip today --start diamox for alkalosis CHRONIC KIDNEY DISEASE: -- Baseline creatinine has been 1.7 - 2.0 -- Discussed the possibility of worsening kidney function in response to IV diuretics. Indications/benefits/risks/alternatives to vascular access placement and HD discussed in detail with the patient and her .They voiced understanding. Mrs. Gaytan is now agreeable to HD if her kidney function declines further. ID: -- Antibiotic therapy as per ID sales consultant 70 minute visit provided to the patient today. This was necessary to review her medical record, perform physical and discuss possible renal replacement therapy HYPERCALCEMIA: -- Serum calcium has corrected -- Serum free light chain ration was markedly elevated. Patient has been undergoing outpatient evaluation for a monoclonal gammopathy by Dr. Delong
[2016-07-12] MEDS: VANCOMYCIN INJ 1,850 MG in SODIUM CHLORIDE 0.9% 500ML 500 ML IV SCH (13:30)
[2016-07-12] MEDS: ACETAMINOPHEN 325 MG TAB PO PRN (17:45)
--- NOTE | 2016-07-12 19:11 | Family Medicine Progress Note ---
Progress Note Date of Service July 12, 2016. Subjective Pt evaluation today including: conversation w/ patient, physical exam, chart review, lab review, review of studies Pain: No pain reported this morning Voiding: no voiding problems Patient is resting comfortably in bedside chair this morning with no acute events. She complained this morning about her dry mouth and wanted to know if her fluid restriction could be lifted. She is unable to tell if her shortness of breath or leg cellulitis has improved. Her legs have also been seeping fluid and her dressing are starting to fall off because of it. Constitutional: No chills, No fever, No sweats Respiratory: No cough, No shortness of breath Cardiovascular: + edema, No chest pain, No palpitations Abdomen: No constipation, No diarrhea, No nausea, No pain, No vomiting Musculoskeletal: + swelling Female : No dysuria Skin: + problem reported (fluid seeping from legs due to fluid overload. Chronic cellulitis of the lower extremities), + rash Medications Current Inpatient Medications Medications (Trade) Dose Ordered Sig/Duyen Route Start Time Stop Time Status Last Admin Dose Admin Heparin Sodium (Porcine) (Heparin Sq 5000 Unit/0.5ml) 5,000 unit Q8 SQ 07/10/16 22:00 08/09/16 21:59 07/12/16 14:22 5,000 UNIT Acetaminophen (Tylenol Tab) 650 mg Q4H PRN PO 07/10/16 20:30 08/09/16 20:29 07/12/16 17:45 650 MG Nitroglycerin (Nitrostat Tab) 0.4 mg UD PRN SL 07/10/16 20:30 08/09/16 20:29 Allopurinol (Zyloprim Tab) 100 mg DAILY PO 07/11/16 09:00 08/10/16 08:59 07/12/16 08:30 100 MG Atorvastatin Calcium (Lipitor Tab) 40 mg DAILY PO 07/11/16 09:00 08/10/16 08:59 07/12/16 08:34 40 MG Cholecalciferol (Vitamin D Tab) 2,000 inter.unit DAILY PO 07/11/16 09:00 08/10/16 08:59 07/12/16 08:33 2,000 INTER.UNIT Salmeterol Xinafoate/ Fluticasone (Advair Diskus 500/50 Inh) 1 puff BID INH 07/11/16 09:00 08/10/16 08:59 07/12/16 08:28 1 PUFF Metoprolol Succinate (Toprol Xl Tab) 150 mg DAILY PO 07/11/16 09:00 08/10/16 08:59 07/12/16 08:30 150 MG Miconazole Nitrate (Desenex Powder) 1 appln PRN PRN EXT 07/10/16 21:15 08/09/16 21:14 07/11/16 21:15 1 APPLN Multivitamins/ Minerals (Multivitamin W/ Minerals Tab) 1 tab DAILY PO 07/11/16 09:00 08/10/16 08:59 07/12/16 08:30 1 TAB Potassium Chloride (Klor-Con Tab) 20 meq DAILY PO 07/11/16 09:00 08/10/16 08:59 07/12/16 08:34 20 MEQ Pregabalin (Lyrica Cap) 150 mg TID PO 07/10/16 23:00 08/09/16 22:59 07/12/16 13:29 150 MG Pyridoxine HCl (Vitamin B-6 Tab) 200 mg DAILY PO 07/11/16 09:00 08/10/16 08:59 07/12/16 08:31 200 MG Tiotropium [place] (Spiriva Handihaler Inhaler) 1 puff DAILY INH 07/11/16 09:00 08/10/16 08:59 07/12/16 08:29 1 PUFF Verapamil HCl (Calan-Sr Tab) 240 mg DAILY PO 07/11/16 09:00 08/10/16 08:59 07/12/16 08:30 240 MG Cyanocobalamin (Vitamin B-12 Tab) 2,500 mcg DAILY PO 07/11/16 09:00 08/10/16 08:59 07/12/16 08:32 2,500 MCG Miscellaneous Information (Order Awaiting Action) 1 ea QS N/A 07/10/16 22:00 08/09/16 21:59 [id number] Acetate (Vitamin E Cap) 800 interunit DAILY PO 07/11/16 09:00 08/10/16 08:59 07/12/16 08:31 800 INTERUNIT Albuterol/ Ipratropium (Duoneb) 3 ml QIDR INH 07/11/16 08:00 08/10/16 07:59 07/12/16 15:45 3 ML Glucose (Glucose 40% Gel) 15-30 GRAMS 15 GRAMS... UD PRN PO 07/10/16 22:15 08/09/16 22:14 Glucose (Glucose Chew Tab) 4-8 Tablets 4 Tabl... UD PRN PO 07/10/16 22:15 08/09/16 22:14 Dextrose (Dextrose 50% 50ML Syringe) 25-50ML OF 50% DW IV FOR... UD PRN IV 07/10/16 22:15 08/09/16 22:14 Glucagon (Glucagon Inj) 1 mg UD PRN SQ 07/10/16 22:15 08/09/16 22:14 Vancomycin HCl (Consult) 1 ea UD PRN N/A 07/10/16 23:30 08/09/16 23:29 Miscellaneous Information (Consult Glycemic Management Pharmacy) 1 ea UD PRN N/A 07/11/16 00:30 08/10/16 00:29 Insulin Aspart SLIDING SCALE ACHS SC 07/11/16 07:00 08/10/16 06:59 07/12/16 17:17 30 UNITS Vancomycin HCl/ Sodium Chloride (Vancomycin Inj/ Nss 500ml) 537 ml @ 200 mls/hr Q18H IV 07/11/16 20:00 07/21/16 19:59 07/12/16 13:30 200 MLS/HR Prednisone (PredniSONE TAB) 15 mg QAM PO 07/12/16 09:00 08/11/16 08:59 07/12/16 08:32 15 MG Pantoprazole Sodium (Protonix Tab) 40 mg QAM PO 07/12/16 09:00 08/11/16 08:59 07/12/16 08:31 40 MG Insulin Glargine SEE PROTOCOL BID SC 07/11/16 21:00 08/10/16 20:59 07/12/16 08:47 70 UNIT Furosemide/ Dextrose (Lasix Inj/D5W 500ml) 500 ml @ 40 mls/hr [id number] IV 07/11/16 15:00 07/15/16 14:59 07/12/16 16:00 40 MLS/HR Acetazolamide (Diamox Tab) 250 mg BID PO 07/12/16 21:00 07/15/16 09:01 Objective Vital Signs Date Time Temp Pulse Resp B/P Pulse Ox O2 Delivery O2 Flow Rate FiO2 07/12/16 16:26 37.0 90 20 129/64 94 Nasal Cannula 3.0 07/12/16 16:00 Nasal Cannula 3.0 07/12/16 15:45 95 16 93 Nasal Cannula 3.0 07/12/16 12:00 95 Nasal Cannula 3.0 07/12/16 11:05 78 16 95 Nasal Cannula 3.0 07/12/16 10:52 36.6 87 20 128/64 94 Nasal Cannula 3.0 07/12/16 08:00 95 Nasal Cannula 3.0 07/12/16 07:39 37.1 84 20 118/60 95 Nasal Cannula 3.0 07/12/16 06:59 81 16 96 Nasal Cannula 3.0 07/12/16 04:01 36.8 82 20 145/70 97 BiPAP 07/12/16 04:00 Nasal Cannula 3.0 07/12/16 00:05 36.8 94 22 144/61 93 Nasal Cannula 07/11/16 23:59 Nasal Cannula 3.0 07/11/16 20:00 Nasal Cannula 3.0 07/11/16 19:30 37.1 90 18 155/73 93 Nasal Cannula 3.0 07/11/16 19:01 89 16 92 Nasal Cannula 3.0 Physical Exam General Appearance: WD/WN, no apparent distress Neck: supple, trachea midline Respiratory/Chest: chest non-tender, no respiratory distress, + decreased breath sounds Cardiovascular: regular rate, rhythm, no edema, no gallop, no murmur Abdomen: normal bowel sounds, non tender, soft, + pertinent finding (left pannus infection, dressing covering affected area, with serosanguinous fluid covering dressing) Extremities: + inflammation, + pedal edema, + swelling, + pertinent finding ( Chronic stasis dermatitis changes of the lower extremities with questionable cellulitis. Fluid visibly seeping from the legs 2/2 fluid overload, with dressings unable to remain covering affected areas due to fluid coming out.) 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: alert, normal mood/affect, oriented x 3 Laboratory Results Results Past 24 Hours Test 07/11/16 20:41 07/12/16 05:25 07/12/16 07:00 07/12/16 11:38 Range/Units Bedside Glucose 282 192 147 70-90 mg/dl White Blood Count 6.05 4.8-10.8 K/uL Red Blood Count 3.26 4.2-5.4 M/uL Hemoglobin 9.9 12.0-16.0 g/dL Hematocrit 33.0 37-47 % Mean Corpuscular Volume 101.2 80-100 fL Mean Corpuscular Hemoglobin 30.4 25-34 pg Mean Corpuscular Hemoglobin Concent 30.0 32-36 g/dl Platelet Count 216 130-400 K/uL Mean Platelet Volume 9.7 7.4-10.4 fL Neutrophils (%) (Auto) 69.8 % Lymphocytes (%) (Auto) 13.2 % Monocytes (%) (Auto) 13.9 % Eosinophils (%) (Auto) 2.1 % Basophils (%) (Auto) 0.2 % Neutrophils # (Auto) 4.22 1.4-6.5 K/uL Lymphocytes # (Auto) 0.80 1.2-3.4 K/uL Monocytes # (Auto) 0.84 0.11-0.59 K/uL Eosinophils # (Auto) 0.13 0-0.5 K/uL Basophils # (Auto) 0.01 0-0.2 K/uL RDW Standard Deviation 71.1 36.4-46.3 fL RDW Coefficient of Variation 19.0 11.5-14.5 % Immature Granulocyte % (Auto) 0.8 % Immature Granulocyte # (Auto) 0.05 0.00-0.02 K/uL Nucleated RBC Absolute Count (auto) 0.12 0-0 K/uL Nucleated Red Blood Cells % 2.1 % Red Blood Cell Morphology Unremarkable Sodium Level 140 136-145 mmol/L Potassium Level 3.6 3.5-5.1 mmol/L Chloride Level 98 98-107 mmol/L Carbon Dioxide Level 41 21-32 mmol/L Anion Gap 1.0 3-11 mmol/L Blood Urea Nitrogen 33 7-18 mg/dl Creatinine 1.70 0.60-1.20 mg/dl Est Creatinine Clear Calc Drug Dose 51.6 ml/min Estimated GFR () 36.8 Estimated GFR (Non- 31.8 BUN/Creatinine Ratio 19.6 10-20 Random Glucose 184 70-99 mg/dl Calcium Level 8.3 8.5-10.1 mg/dl Magnesium Level 2.6 1.8-2.4 mg/dl Total Bilirubin 0.3 0.2-1 mg/dl Direct Bilirubin < 0.1 0-0.2 mg/dl Aspartate Amino Transf (AST/SGOT) 13 15-37 U/L Alanine Aminotransferase (ALT/SGPT) 32 12-78 U/L Alkaline Phosphatase 78 45-117 U/L Total Protein 8.6 6.4-8.2 gm/dl Albumin 2.6 3.4-5.0 gm/dl Test 07/12/16 16:25 Range/Units Bedside Glucose 158 70-90 mg/dl Assessment and Plan 60 year old female with cor pulmonale and heart failure, COPD and chronic hypoxic respiratory failure requiring 3L O2 baseline at home, DM, CKD III, morbid obesity, HLD, and chronic venous insufficiency admitted with progressive SOB and seeping abdominal wound. 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 BNP 296. Trop negative. CXR on 07/11 shows pulm vasc congestion. Last echo 07/25/15: Hyperdynamic LV systolic function. Mild concentric LV hypertrophy. LV diastolic dysfunction. Mild RV dilatation and systolic dysfunction.Mild tricuspid regurgitation. Mildly elevated RV systolic pressure. Normal central venous pressure. Patient likely needs to undergo aggressive diuresis. Nephrology consulted - recs appreciated. - Furosemide drip - Diamox added by Nephrology due to Alkalosis 2/ Lasix - Metoprolol 150mg daily - KCl replacement as necessary - 20mEq daily - Daily weights, strict I/O's, low salt diet - I/O: -1.2 L this hospitalization thus far Abdominal cellulitis/wound - Serous seepage, no purulent discharge, likely extravasated fluid from edematous soft tissue. ID and wound care consulted - recs appreciated. - IV Vancomycin (Day 3) - Zosyn discontinued by ID (Received 2 days) - Current plan by ID is to transition patient to Doxycyline on discharge - Blood and wound cultures pending - Trend CBC COPD - current SOB more likely secondary to fluid overload, if no improvement with diuresis, may consider adjuestment to COPD medications - Advair, Spiriva, DuoNeb - Home dose of prednisone 15mg daily - 3L O2 via nasal cannula during the day, Bipap overnight MGUS - diagnosed at last admission, followed by Dr. Delong - Pending outpatient tests can be ordered once acute issues dealt with: CBC w/ diff, CMP, immunofixation - 24 hr urine, immunonfixation - serum, kappa/Lambda light chains - free w/ ratio - serum, protein electrophoresis panel -24 hr urine , serum protein electrophoresis, metastatic skeletal survery HTN - BP in adequate range - Metoprolol 150mg daily + Verapamil 240mg daily DM - last HbA1c 6.3 on 05/20/16 - Lantus 40 units BID + ISS - Accu check ac/hs CKD III - Creatinine 1.7-2.0 at baseline. Anticipating changes with aggressive diuresis. Nephrology consulted - recs appreciated - Cr 1.7 this morning - Monitor via BMP - Nephrology added Diamox for Alkalosis Chronic venous insufficiency - bilateral, chronic without recent change, not likely to be Cellulitis. - Wound Care on board - Keep legs elevated Gout - asymptomatic - Allopurinol 100mg daily Chronic pain - Pregabalin VTE prophylaxis - Heparin Code Status - Do not resuscitate Reviewed: Pt Seen/Exam by Me History Resident Physician Supervision Note: I interviewed and examined the patient. Discussed with Dr. Laughlin and agree with findings and plan as documented in the note. Any exceptions or clarifications are listed here: Pt reports no SOB but hasn't moved around much. Erythema on legs is improved. Is concerned about having dressings on her legs as they are staying moist and she's always been told by her ID PA-C that she should not have coverings. Vitals and telemetry reviewed Morbidly obese, no acute distress Regular rate and rhythm no murmurs gallops or rubs Clear to auscultation bilaterally but decreased breath sounds throughout Abdomen morbidly obese abdomen with extremely large pannus, lifted pannus and has patch of erythema under left side with no abscess, dressing in place Skin in addition to abdomen as above, with bilateral mild lower extremity erythema from the knee down with woody edema and moist weeping skin, no purulent drainage 60-year-old morbidly obese female with chronic lower extremity edema likely secondary to morbid obesity and erythematous legs most likely not due to chronic cellulitis but more so due to chronic venous stasis, here with acute cellulitis of the lower extremities and left lower abdomen as well as severe fluid overload with acute on chronic right sided systolic CHF. -continue Lasix drip given history of difficulty with hypotension in the past, agree with adding Diamox for met alkalosis and diuresis -needs aggressive diuresis -Continue vancomycin alone, Zosyn discontinued by ID and recommends 14 days of doxycycline upon discharge Documented By: Kat Anderson
[2016-07-12] MEDS: AcetaZOLAMIDE 250 MG TAB PO SCH (21:05)
[2016-07-13] VITALS (16 sets, daily range): BP systolic 125–158; BP diastolic 60–82; PULSE 84–95; TEMP 36.6–37.2; O2SAT 5–97
[2016-07-13] MEDS: FUROSEMIDE IV SCH ×2 (04:00→18:28)
[2016-07-13] MEDS: DEXTROSE 5% IV SCH ×2 (04:00→18:28)
[2016-07-13] MEDS: HEPARIN SOD 5000 UNIT/0.5 ML CARP SQ SCH ×3 (05:16→21:50)
[2016-07-13] MEDS: ALBUT/IPRATROP 3MG/0.5MG NEB 3 ML VIAL INH SCH ×4 (06:56→19:07)
[2016-07-13] MEDS ORDERED: VANCOMYCIN TROUGH SCH (07:30)
[2016-07-13 07:32] LABS: HEMATOCRIT 32.2 % (37-47); MEAN CELL VOLUME 101.3 fL (80-100); MEAN CORPUSCULAR HEMOGLOBIN 30.5 pg (25-34); MEAN CORPUSCULAR HGB CONC 30.1 g/dl (32-36); MEAN PLATELET VOLUME 8.6 fL (7.4-10.4); PLATELET COUNT 203 K/uL (130-400); RED BLOOD COUNT 3.18 M/uL (4.2-5.4); WHITE BLOOD COUNT 7.12 K/uL (4.8-10.8)
[2016-07-13 07:58] LABS: BUN/CREATININE RATIO 19.7 (10-20); CALCIUM 7.4 mg/dl (8.5-10.1); CREATININE 1.5 mg/dl (0.60-1.20); MAGNESIUM 2.4 mg/dl (1.8-2.4); PHOSPHORUS 2.2 mg/dl (2.5-4.9); POTASSIUM 3.6 mmol/L (3.5-5.1)
[2016-07-13] MEDS: CYANOCOBALAMIN 2,500 MCG SUBL TAB PO SCH (08:14)
[2016-07-13] MEDS: ALLOPURINOL 100 MG TAB PO SCH (08:14)
[2016-07-13] MEDS: AcetaZOLAMIDE 250 MG TAB PO SCH ×2 (08:14→20:57)
[2016-07-13] MEDS: ATORVASTATIN 20 MG TAB PO SCH (08:15)
[2016-07-13] MEDS: METOPROLOL SUCC 50MG EXT REL TAB PO SCH (08:15)
[2016-07-13] MEDS: CEROVITE ADV FORMULA TAB PO SCH (08:15)
[2016-07-13] MEDS: VERAPAMIL HCL 240 MG TABCR PO SCH (08:16)
[2016-07-13] MEDS: PYRIDOXINE HCL 50 MG TAB PO SCH (08:16)
[2016-07-13] MEDS: TOCOPHERYL, DL-ALPHA 400 INTER.UNIT CAP PO SCH (08:16)
[2016-07-13] MEDS: PANTOprazole SOD 40 MG TAB PO SCH (08:17)
[2016-07-13] MEDS: CHOLECALCIFEROL 1000 INTER.UNIT TAB PO SCH (08:17)
[2016-07-13] MEDS: POTASSIUM CHLORIDE 20 MEQ TABCR PO SCH (08:17)
[2016-07-13] MEDS ORDERED: POTASSIUM PHOS 3 MMOL/1 ML INFUSION IV STA (08:17)
[2016-07-13] MEDS: FLUTICASONE/SALMETEROL (ADVAIR) 500/50 INH 14 PUFF INH SCH ×2 (08:18→20:56)
[2016-07-13] MEDS: TIOTROPIUM BROMIDE 5 PUFF/90 MCG INH INH SCH (08:18)
[2016-07-13] MEDS: INSULIN ASPART 100 UNITS/ML 3 ML PEN SC SCH ×4 (08:28→21:13)
[2016-07-13] MEDS: INSULIN GLARGINE SC SCH ×2 (08:29→21:10)
[2016-07-13] MEDS: VANCOMYCIN INJ 1,850 MG in SODIUM CHLORIDE 0.9% 500ML 500 ML IV SCH (08:32)
[2016-07-13] MEDS: PREGABALIN 150 MG CAP PO SCH ×3 (08:32→21:00)
[2016-07-13] MEDS ORDERED: POTASSIUM PHOSPHATE INJ 15 MMOL in SODIUM CHLORIDE 0.9% 250ML 250 ML IV SCH (09:00)
--- NOTE | 2016-07-13 09:07 | Pharmacy Progress Note ---
Pharmacy Abx Dose Progress Nt Date of Service July 13, 2016. Pharmacy Dosing Scope The patient is currently receiving the following antimicrobial agents per Pharmacy consult: * VANCOMYCIN 1850 mg IV every 18 hours Objective Height (Feet): 5 Height (Inches): 4.00 Weight (Kilograms): 155.900 Vital Signs (Past 12Hrs) Vital Signs Past 12 Hours Date Time Temp Pulse Resp B/P Pulse Ox O2 Delivery O2 Flow Rate FiO2 07/13/16 08:13 36.6 90 20 129/60 94 Nasal Cannula 3.0 07/13/16 07:03 84 16 96 Nasal Cannula 3.0 07/13/16 04:05 36.7 95 22 136/82 94 Nasal Cannula 3.0 07/13/16 04:02 94 Nasal Cannula 3.0 07/13/16 00:05 37.0 95 21 142/65 92 Nasal Cannula 3.0 07/13/16 00:00 94 Nasal Cannula 3.0 Lab Results (24Hrs) Test 07/12/16 20:27 07/13/16 06:37 07/13/16 07:24 Bedside Glucose 190 mg/dl (70-90) 222 mg/dl (70-90) White Blood Count 7.12 K/uL (4.8-10.8) Red Blood Count 3.18 M/uL (4.2-5.4) Hemoglobin 9.7 g/dL (12.0-16.0) Hematocrit 32.2 % (37-47) Mean Corpuscular Volume 101.3 fL (80-100) Mean Corpuscular Hemoglobin 30.5 pg (25-34) Mean Corpuscular Hemoglobin Concent 30.1 g/dl (32-36) RDW Standard Deviation 71.1 fL (36.4-46.3) RDW Coefficient of Variation 19.3 % (11.5-14.5) Platelet Count 203 K/uL (130-400) Mean Platelet Volume 8.6 fL (7.4-10.4) Nucleated RBC Absolute Count (auto) 0.09 K/uL (0-0) Nucleated Red Blood Cells % 1.2 % Sodium Level 138 mmol/L (136-145) Potassium Level 3.6 mmol/L (3.5-5.1) Chloride Level 96 mmol/L (98-107) Carbon Dioxide Level 40 mmol/L (21-32) Anion Gap 2.0 mmol/L (3-11) Blood Urea Nitrogen 29 mg/dl (7-18) Creatinine 1.50 mg/dl (0.60-1.20) Est Creatinine Clear Calc Drug Dose 58.4 ml/min Estimated GFR () 42.8 Estimated GFR (Non- 37.0 BUN/Creatinine Ratio 19.7 (10-20) Random Glucose 213 mg/dl (70-99) Calcium Level 7.4 mg/dl (8.5-10.1) Phosphorus Level 2.2 mg/dl (2.5-4.9) Magnesium Level 2.4 mg/dl (1.8-2.4) Vancomycin Level Trough 24.1 mcg/ml (SEE COMMENT) Micro Results Date/Time Source Procedure Growth Status 07/10/16 22:40 Blood Blood Culture - Preliminary NO GROWTH TO DATE. Resulted 07/10/16 22:35 Blood Blood Culture - Preliminary NO GROWTH TO DATE. Resulted 07/11/16 15:20 Ulcer Abdomen, Left Lower Quadrant Gram Stain - Final Resulted 07/11/16 15:20 Wound Culture - Preliminary Gram Positive Cocci Resulted Risk Factors for Resistance * Hospitalization for 48 hours or more within the past 90 days * Current hospitalization > 5 days * Recent use of Ciprofloxacin + Doxycycline Assessment & Plan Assessment * 60 year old female receiving IV abx for treatment of skin and soft tissue infection (abdominal cellulitis) * Day # 4 of antimicrobial therapy * Renal fxn stable based upon labs and urine output. VSS * Afebrile, WBC stable and not trending upward, culture of ulcer is growing GPC awaiting ID and sensitivities Plan Vancomycin IV * Trough level of 24.1 mcg/mL is supratherapeutic and was drawn before achieving steady-state (only after 2 maintenance doses). Prior doses were hung at appropriate times and trough drawn appropriately too. * Change to 1600 mg (10mg/kg) IV every 24 hours * Goal trough level for skin/skin structure infxn : 15 to 20 mcg/mL <--unit culture results available (EARLINE of GPC in ulcer culture not yet reported) * Trough or random level ordered for: 07/15/16 Pharmacy will continue to follow and will adjust dose/frequency as necessary. Thank you.
--- NOTE | 2016-07-13 09:34 | Nephrology Progress Note ---
Nephrology Progress Note Date of Service July 13, 2016. Chief Complaint Follow-up for chronic kidney disease and diuretic resistant volume overload. Subjective Jazmin was seen and examined in her room this morning. She has been otherwise doing well. Continues to have decent urine output and responding to diuretics drip. Renal function remained stable creatinine 1.5. urine output more than 3 liters, net negative. Blood pressure stable. Review of Systems A complete review of systems was performed. Pertinent positives are noted above. All other systems are negative. Vital Signs Last 8 Hrs Date Time Temp Pulse Resp B/P Pulse Ox O2 Delivery O2 Flow Rate FiO2 07/13/16 07:03 84 16 96 Nasal Cannula 3.0 07/13/16 04:05 36.7 95 22 136/82 94 Nasal Cannula 3.0 07/13/16 04:02 94 Nasal Cannula 3.0 07/13/16 00:05 37.0 95 21 142/65 92 Nasal Cannula 3.0 07/13/16 00:00 94 Nasal Cannula 3.0 I & O 24-Hour Column 07/13/16 08:00 Intake Total 1563 ml Output Total 3675 ml Balance -2112 ml Last Recorded Weight Weight (Kilograms): 155.900 Physical Exam GENERAL: Middle-aged female, morbidly obese, AAA x 3, pleasant,, not in any distress. NECK: Supple, no JVD. RESPIRATORY: Normal breathing efforts, no accessory muscle use, clear to auscultation bilaterally, no wheezes or rales. CARDIOVASCULAR: S1, S2 normal, rate rhythm regular. EXTREMITY: 3 to 4+ bilateral lower extremity edema, with weeping bullae, currently wrapped in dressing NEURO: speech fluent. PSYCHIATRY: Normal mood and judgment. Family History Cancer Diabetes mellitus Gallbladder disease Heart disease Lung disease Negative for CKD / ESRD Social History Smoking Status: Former smoker Drug Use: none Marital Status: Housing Status: lives with family Occupation: unemployed . Lives w/ . Remote h/o tobacco use Laboratory Results Past 24 Hours 07/13/16 07:24 Test 07/12/16 11:38 07/12/16 16:25 07/12/16 20:27 07/13/16 06:37 Bedside Glucose 147 mg/dl (70-90) 158 mg/dl (70-90) 190 mg/dl (70-90) 222 mg/dl (70-90) Test 07/13/16 07:24 Red Blood Count 3.18 M/uL (4.2-5.4) Mean Corpuscular Volume 101.3 fL (80-100) Mean Corpuscular Hemoglobin 30.5 pg (25-34) Mean Corpuscular Hemoglobin Concent 30.1 g/dl (32-36) RDW Standard Deviation 71.1 fL (36.4-46.3) RDW Coefficient of Variation 19.3 % (11.5-14.5) Mean Platelet Volume 8.6 fL (7.4-10.4) Nucleated RBC Absolute Count (auto) 0.09 K/uL (0-0) Nucleated Red Blood Cells % 1.2 % Allergies Coded Allergies: Daptomycin (Verified Allergy, Mild, HIVES, 06/14/16) itching Codeine (Verified Allergy, Unknown, unknown, 06/14/16) has tolerated morphine Iodine (Verified Allergy, Unknown, 06/14/16) Shellfish (Verified Allergy, Unknown, 06/14/16) Sulfamethoxazole w/Trimethoprim (Verified Allergy, Unknown, RASH, 06/14/16) Medications Current Inpatient Medications Medications (Trade) Dose Ordered Sig/Duyen Route Start Time Stop Time Status Last Admin Dose Admin Heparin Sodium (Porcine) (Heparin Sq 5000 Unit/0.5ml) 5,000 unit Q8 SQ 07/10/16 22:00 08/09/16 21:59 07/13/16 05:16 5,000 UNIT Acetaminophen (Tylenol Tab) 650 mg Q4H PRN PO 07/10/16 20:30 08/09/16 20:29 07/12/16 17:45 650 MG Nitroglycerin (Nitrostat Tab) 0.4 mg UD PRN SL 07/10/16 20:30 08/09/16 20:29 Allopurinol (Zyloprim Tab) 100 mg DAILY PO 07/11/16 09:00 08/10/16 08:59 07/12/16 08:30 100 MG Atorvastatin Calcium (Lipitor Tab) 40 mg DAILY PO 07/11/16 09:00 08/10/16 08:59 07/12/16 08:34 40 MG Cholecalciferol (Vitamin D Tab) 2,000 inter.unit DAILY PO 07/11/16 09:00 08/10/16 08:59 07/12/16 08:33 2,000 INTER.UNIT Salmeterol Xinafoate/ Fluticasone (Advair Diskus 500/50 Inh) 1 puff BID INH 07/11/16 09:00 08/10/16 08:59 07/12/16 21:04 1 PUFF Metoprolol Succinate (Toprol Xl Tab) 150 mg DAILY PO 07/11/16 09:00 08/10/16 08:59 07/12/16 08:30 150 MG Miconazole Nitrate (Desenex Powder) 1 appln PRN PRN EXT 07/10/16 21:15 08/09/16 21:14 07/11/16 21:15 1 APPLN Multivitamins/ Minerals (Multivitamin W/ Minerals Tab) 1 tab DAILY PO 07/11/16 09:00 08/10/16 08:59 07/12/16 08:30 1 TAB Potassium Chloride (Klor-Con Tab) 20 meq DAILY PO 07/11/16 09:00 08/10/16 08:59 07/12/16 08:34 20 MEQ Pregabalin (Lyrica Cap) 150 mg TID PO 07/10/16 23:00 08/09/16 22:59 07/12/16 21:18 150 MG Pyridoxine HCl (Vitamin B-6 Tab) 200 mg DAILY PO 07/11/16 09:00 08/10/16 08:59 07/12/16 08:31 200 MG Tiotropium [place] (Spiriva Handihaler Inhaler) 1 puff DAILY INH 07/11/16 09:00 08/10/16 08:59 07/12/16 08:29 1 PUFF Verapamil HCl (Calan-Sr Tab) 240 mg DAILY PO 07/11/16 09:00 08/10/16 08:59 07/12/16 08:30 240 MG Cyanocobalamin (Vitamin B-12 Tab) 2,500 mcg DAILY PO 07/11/16 09:00 08/10/16 08:59 07/12/16 08:32 2,500 MCG Miscellaneous Information (Order Awaiting Action) 1 ea QS N/A 07/10/16 22:00 08/09/16 21:59 [id number] Acetate (Vitamin E Cap) 800 interunit DAILY PO 07/11/16 09:00 08/10/16 08:59 07/12/16 08:31 800 INTERUNIT Albuterol/ Ipratropium (Duoneb) 3 ml QIDR INH 07/11/16 08:00 08/10/16 07:59 07/13/16 06:56 3 ML Glucose (Glucose 40% Gel) 15-30 GRAMS 15 GRAMS... UD PRN PO 07/10/16 22:15 08/09/16 22:14 Glucose (Glucose Chew Tab) 4-8 Tablets 4 Tabl... UD PRN PO 07/10/16 22:15 08/09/16 22:14 Dextrose (Dextrose 50% 50ML Syringe) 25-50ML OF 50% DW IV FOR... UD PRN IV 07/10/16 22:15 08/09/16 22:14 Glucagon (Glucagon Inj) 1 mg UD PRN SQ 07/10/16 22:15 08/09/16 22:14 Vancomycin HCl (Consult) 1 ea UD PRN N/A 07/10/16 23:30 08/09/16 23:29 Miscellaneous Information (Consult Glycemic Management Pharmacy) 1 ea UD PRN N/A 07/11/16 00:30 08/10/16 00:29 Insulin Aspart SLIDING SCALE ACHS SC 07/11/16 07:00 08/10/16 06:59 07/12/16 21:10 15 UNITS Vancomycin HCl/ Sodium Chloride (Vancomycin Inj/ Nss 500ml) 537 ml @ 200 mls/hr Q18H IV 07/11/16 20:00 07/21/16 19:59 07/12/16 13:30 200 MLS/HR Prednisone (PredniSONE TAB) 15 mg QAM PO 07/12/16 09:00 08/11/16 08:59 07/12/16 08:32 15 MG Pantoprazole Sodium (Protonix Tab) 40 mg QAM PO 07/12/16 09:00 08/11/16 08:59 07/12/16 08:31 40 MG Insulin Glargine SEE PROTOCOL BID SC 07/11/16 21:00 08/10/16 20:59 07/12/16 21:11 70 UNIT Furosemide/ Dextrose (Lasix Inj/D5W 500ml) 500 ml @ 40 mls/hr [id number] IV 5/12/17 15:00 07/15/16 14:59 07/13/16 04:00 40 MLS/HR Acetazolamide (Diamox Tab) 250 mg BID PO 07/12/16 21:00 07/15/16 09:01 07/12/16 21:05 250 MG Impression (1) Cor pulmonale, chronic (2) Obesity hypoventilation syndrome (3) Abdominal wall cellulitis (4) Chronic kidney disease (CKD) stage G3b/A1, moderately decreased glomerular filtration rate (GFR) between 30-44 mL/min/1.73 square meter and albuminuria creatinine ratio less than 30 mg/g (5) Diabetes (6) Anasarca Recommendations EDEMA: -- continue lasix drip , cr stable. --start diamox for alkalosis CHRONIC KIDNEY DISEASE: -- Baseline creatinine has been 1.7 - 2.0 -- Discussed the possibility of worsening kidney function in response to IV diuretics. Indications/benefits/risks/alternatives to vascular access placement and HD discussed in detail with the patient and her .They voiced understanding. Mrs. Gaytan is now agreeable to HD if her kidney function declines further. ID: -- Antibiotic therapy as per ID gis consultant 70 minute visit provided to the patient today. This was necessary to review her medical record, perform physical and discuss possible renal replacement therapy HYPERCALCEMIA: -- Serum calcium has corrected -- Serum free light chain ration was markedly elevated. Patient has been undergoing outpatient evaluation for a monoclonal gammopathy by Dr. Delong
[2016-07-13] MEDS ORDERED: POT PHOSPHATE MONOBASIC W/ SOD TAB PO ONE (10:15)
[2016-07-13] MEDS ORDERED: FUROSEMIDE INJ 100 MG in DEXTROSE 5% 100ML 90 ML IV SCH (13:45)
[2016-07-13] MEDS: VANCOMYCIN INJ 1,600 MG in SODIUM CHLORIDE 0.9% 500ML 500 ML IV SCH (15:40)
--- NOTE | 2016-07-13 16:16 | Family Medicine Progress Note ---
Progress Note Date of Service July 13, 2016. Subjective Pt evaluation today including: conversation w/ patient, physical exam, chart review, lab review, review of studies Pain: No pain reported this morning Voiding: no voiding problems Patient states she is doing well and that her shortness of breath has improved from yesterday. Her legs are still unchanged and sore but they have been more dry since the dressing changes were made last night. Constitutional: No chills, No fever, No sweats Respiratory: No cough, No shortness of breath, No sputum, No wheezing Cardiovascular: No chest pain, No edema, No palpitations Abdomen: No constipation, No diarrhea, No nausea, No pain, No vomiting Musculoskeletal: + swelling, No calf pain, No joint pain Female : No dysuria Endo: No fatigue Medications Current Inpatient Medications Medications (Trade) Dose Ordered Sig/Duyen Route Start Time Stop Time Status Last Admin Dose Admin Heparin Sodium (Porcine) (Heparin Sq 5000 Unit/0.5ml) 5,000 unit Q8 SQ 07/10/16 22:00 08/09/16 21:59 07/13/16 05:16 5,000 UNIT Acetaminophen (Tylenol Tab) 650 mg Q4H PRN PO 07/10/16 20:30 08/09/16 20:29 07/12/16 17:45 650 MG Nitroglycerin (Nitrostat Tab) 0.4 mg UD PRN SL 07/10/16 20:30 08/09/16 20:29 Allopurinol (Zyloprim Tab) 100 mg DAILY PO 07/11/16 09:00 08/10/16 08:59 07/13/16 08:14 100 MG Atorvastatin Calcium (Lipitor Tab) 40 mg DAILY PO 07/11/16 09:00 08/10/16 08:59 07/13/16 08:15 40 MG Cholecalciferol (Vitamin D Tab) 2,000 inter.unit DAILY PO 07/11/16 09:00 08/10/16 08:59 07/13/16 08:17 2,000 INTER.UNIT Salmeterol Xinafoate/ Fluticasone (Advair Diskus 500/50 Inh) 1 puff BID INH 07/11/16 09:00 08/10/16 08:59 07/13/16 08:18 1 PUFF Metoprolol Succinate (Toprol Xl Tab) 150 mg DAILY PO 07/11/16 09:00 08/10/16 08:59 07/13/16 08:15 150 MG Miconazole Nitrate (Desenex Powder) 1 appln PRN PRN EXT 07/10/16 21:15 08/09/16 21:14 07/11/16 21:15 1 APPLN Multivitamins/ Minerals (Multivitamin W/ Minerals Tab) 1 tab DAILY PO 07/11/16 09:00 08/10/16 08:59 07/13/16 08:15 1 TAB Potassium Chloride (Klor-Con Tab) 20 meq DAILY PO 07/11/16 09:00 08/10/16 08:59 07/13/16 08:17 20 MEQ Pregabalin (Lyrica Cap) 150 mg TID PO 07/10/16 23:00 08/09/16 22:59 07/13/16 08:32 150 MG Pyridoxine HCl (Vitamin B-6 Tab) 200 mg DAILY PO 07/11/16 09:00 08/10/16 08:59 07/13/16 08:16 200 MG Tiotropium [place] (Spiriva Handihaler Inhaler) 1 puff DAILY INH 07/11/16 09:00 08/10/16 08:59 07/13/16 08:18 1 PUFF Verapamil HCl (Calan-Sr Tab) 240 mg DAILY PO 07/11/16 09:00 08/10/16 08:59 07/13/16 08:16 240 MG Cyanocobalamin (Vitamin B-12 Tab) 2,500 mcg DAILY PO 07/11/16 09:00 08/10/16 08:59 07/13/16 08:14 2,500 MCG Miscellaneous Information (Order Awaiting Action) 1 ea QS N/A 07/10/16 22:00 08/09/16 21:59 [id number] Acetate (Vitamin E Cap) 800 interunit DAILY PO 07/11/16 09:00 08/10/16 08:59 07/13/16 08:16 800 INTERUNIT Albuterol/ Ipratropium (Duoneb) 3 ml QIDR INH 07/11/16 08:00 08/10/16 07:59 07/13/16 14:56 3 ML Glucose (Glucose 40% Gel) 15-30 GRAMS 15 GRAMS... UD PRN PO 07/10/16 22:15 08/09/16 22:14 Glucose (Glucose Chew Tab) 4-8 Tablets 4 Tabl... UD PRN PO 07/10/16 22:15 08/09/16 22:14 Dextrose (Dextrose 50% 50ML Syringe) 25-50ML OF 50% DW IV FOR... UD PRN IV 07/10/16 22:15 08/09/16 22:14 Glucagon (Glucagon Inj) 1 mg UD PRN SQ 07/10/16 22:15 08/09/16 22:14 Vancomycin HCl (Consult) 1 ea UD PRN N/A 07/10/16 23:30 08/09/16 23:29 Miscellaneous Information (Consult Glycemic Management Pharmacy) 1 ea UD PRN N/A 07/11/16 00:30 08/10/16 00:29 Insulin Aspart (novoLOG ASPART) SLIDING SCALE ACHS SC 07/11/16 07:00 08/10/16 06:59 07/13/16 13:06 30 UNITS Prednisone (PredniSONE TAB) 15 mg QAM PO 07/12/16 09:00 08/11/16 08:59 07/13/16 08:15 15 MG Pantoprazole Sodium (Protonix Tab) 40 mg QAM PO 07/12/16 09:00 08/11/16 08:59 07/13/16 08:17 40 MG Insulin Glargine SEE PROTOCOL BID SC 07/11/16 21:00 08/10/16 20:59 07/13/16 08:29 70 UNIT Furosemide/ Dextrose (Lasix Inj/D5W 500ml) 500 ml @ 40 mls/hr [id number] IV 07/11/16 15:00 07/15/16 14:59 07/13/16 04:00 40 MLS/HR Acetazolamide 250 mg 250 mg BID PO 07/12/16 21:00 07/15/16 09:01 07/13/16 08:14 250 MG Vancomycin HCl/ Sodium Chloride (Vancomycin Inj/ Nss 500ml) 532 ml @ 200 mls/hr Q24H IV 07/13/16 14:00 07/21/16 23:59 Objective Vital Signs Date Time Temp Pulse Resp B/P Pulse Ox O2 Delivery O2 Flow Rate FiO2 07/13/16 14:57 95 16 93 Nasal Cannula 3.0 07/13/16 11:31 37.2 86 20 125/64 95 Nasal Cannula 3.0 07/13/16 11:11 88 16 96 Nasal Cannula 3.0 07/13/16 08:13 36.6 90 20 129/60 94 Nasal Cannula 3.0 07/13/16 07:03 84 16 96 Nasal Cannula 3.0 07/13/16 04:05 36.7 95 22 136/82 94 Nasal Cannula 3.0 07/13/16 04:02 94 Nasal Cannula 3.0 07/13/16 00:05 37.0 95 21 142/65 92 Nasal Cannula 3.0 07/13/16 00:00 94 Nasal Cannula 3.0 07/12/16 20:02 36.9 74 20 126/69 91 3.0 07/12/16 20:00 94 Nasal Cannula 3.0 07/12/16 18:56 102 16 94 Nasal Cannula 3.0 07/12/16 16:26 37.0 90 20 129/64 94 Nasal Cannula 3.0 Physical Exam General Appearance: WD/WN, no apparent distress Eyes: normal inspection, sclerae normal Neck: supple, no carotid bruits Respiratory/Chest: chest non-tender, no respiratory distress, no accessory muscle use, + decreased breath sounds Cardiovascular: regular rate, rhythm, no gallop, no murmur Abdomen: normal bowel sounds, non tender, soft Extremities: no calf tenderness, + inflammation, + swelling, + pertinent finding (Stasis dermatitis over lower extremities) 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: alert, normal mood/affect, oriented x 3 Skin: + pertinent finding (Left lower quadrants abdominal wound, dressing covering with serosanguinus drainage) Laboratory Results Results Past 24 Hours Test 07/12/16 16:25 07/12/16 20:27 07/13/16 06:37 07/13/16 07:24 Range/Units Bedside Glucose 158 190 222 70-90 mg/dl White Blood Count 7.12 4.8-10.8 K/uL Red Blood Count 3.18 4.2-5.4 M/uL Hemoglobin 9.7 12.0-16.0 g/dL Hematocrit 32.2 37-47 % Mean Corpuscular Volume 101.3 80-100 fL Mean Corpuscular Hemoglobin 30.5 25-34 pg Mean Corpuscular Hemoglobin Concent 30.1 32-36 g/dl RDW Standard Deviation 71.1 36.4-46.3 fL RDW Coefficient of Variation 19.3 11.5-14.5 % Platelet Count 203 130-400 K/uL Mean Platelet Volume 8.6 7.4-10.4 fL Nucleated RBC Absolute Count (auto) 0.09 0-0 K/uL Nucleated Red Blood Cells % 1.2 % Sodium Level 138 136-145 mmol/L Potassium Level 3.6 3.5-5.1 mmol/L Chloride Level 96 98-107 mmol/L Carbon Dioxide Level 40 21-32 mmol/L Anion Gap 2.0 3-11 mmol/L Blood Urea Nitrogen 29 7-18 mg/dl Creatinine 1.50 0.60-1.20 mg/dl Est Creatinine Clear Calc Drug Dose 58.4 ml/min Estimated GFR () 42.8 Estimated GFR (Non- 37.0 BUN/Creatinine Ratio 19.7 10-20 Random Glucose 213 70-99 mg/dl Calcium Level 7.4 8.5-10.1 mg/dl Phosphorus Level 2.2 2.5-4.9 mg/dl Magnesium Level 2.4 1.8-2.4 mg/dl Vancomycin Level Trough 24.1 SEE COMMENT mcg/ml Test 07/13/16 11:30 Range/Units Bedside Glucose 160 70-90 mg/dl Assessment and Plan 60 year old female with cor pulmonale and heart failure, COPD and chronic hypoxic respiratory failure requiring 3L O2 baseline at home, DM, CKD III, morbid obesity, HLD, and chronic venous insufficiency admitted with progressive SOB and seeping abdominal wound. 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 BNP 296. Trop negative. CXR on 07/11 shows pulm vasc congestion. Last echo 07/25/15: Hyperdynamic LV systolic function. Mild concentric LV hypertrophy. LV diastolic dysfunction. Mild RV dilatation and systolic dysfunction.Mild tricuspid regurgitation. Mildly elevated RV systolic pressure. Normal central venous pressure. Patient likely needs to undergo aggressive diuresis. Nephrology consulted - recs appreciated. - Furosemide drip - Diamox added by Nephrology due to Alkalosis /2 Lasix - Metoprolol 150mg daily - KCl replacement as necessary - 20mEq daily - Daily weights, strict I/O's, low salt diet - I/O: -3.5 L this hospitalization thus far Abdominal cellulitis/wound - Serous seepage, no purulent discharge, likely extravasated fluid from edematous soft tissue. ID and wound care consulted - recs appreciated. 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 Delong - Pending outpatient tests can be ordered once acute issues dealt with: CBC w/ diff, CMP, immunofixation - 24 hr urine, immunonfixation - serum, kappa/Lambda light chains - free w/ ratio - serum, protein electrophoresis panel -24 hr urine , serum protein electrophoresis, metastatic skeletal survery Hypophosphatemia - Phosphorus 2.2 this morning - Initially ordered 15 mmol KPhos IV but unable to obtain IV access - Ordered 2 Tabs of Phospha 220 Neutral - Repeat Phos tomorrow HTN - BP in adequate range - Metoprolol 150mg daily + Verapamil 240mg daily DM - last HbA1c 6.3 on 05/20/16 - Lantus 40 units BID + ISS - Accu check ac/hs CKD III - Creatinine 1.7-2.0 at baseline. Anticipating changes with aggressive diuresis. Nephrology consulted - recs appreciated - Cr 1.5 this morning - Monitor via BMP - Nephrology added Diamox for Alkalosis Chronic venous insufficiency - bilateral, chronic without recent change, not likely to be Cellulitis. - Wound Care on board - Keep legs elevated Gout - asymptomatic - Allopurinol 100mg daily Chronic pain - Pregabalin VTE prophylaxis - Heparin Code Status - Do not resuscitate Reviewed: Pt Seen/Exam by Me History Resident Physician Supervision Note: I interviewed and examined the patient. Discussed with Dr. Laughlin and agree with findings and plan as documented in the note. Any exceptions or clarifications are listed here: Patient improved with less shortness of breath today, is diuresing and remains on Lasix drip. Afebrile Vitals and telemetry reviewed Morbidly obese, no acute distress Regular rate and rhythm no murmurs gallops or rubs Clear to auscultation bilaterally but decreased breath sounds throughout Abdomen morbidly obese abdomen with extremely large pannus, lifted pannus and has patch of erythema under left side with small opening with no active drainage is Skin in addition to abdomen as above, with bilateral mild lower extremity erythema from the knee down with woody edema and moist weeping skin, no purulent drainage 60-year-old morbidly obese female with chronic lower extremity edema likely secondary to morbid obesity and erythematous legs most likely not due to chronic cellulitis but more so due to chronic venous stasis, here with acute cellulitis of the lower extremities and left lower abdomen as well as severe fluid overload with acute on chronic right sided systolic CHF. -continue Lasix drip given history of difficulty with hypotension in the past, agree with adding Diamox for met alkalosis and diuresis -needs continued aggressive diuresis and nephrology suggest dialysis if renal function worsens and continues to need diuresis-patient is agreeable -Continue vancomycin alone, Zosyn discontinued by ID and recommends 14 days of doxycycline upon discharge -I do not necessarily think patient needs to be on chronic antibiotics moving forward as her lower extremity erythema is secondary to chronic venous stasis changes Documented By: Kat Anderson
[2016-07-14] VITALS (13 sets, daily range): BP systolic 102–132; BP diastolic 49–88; PULSE 79–93; TEMP 36.4–37; O2SAT 91–98
[2016-07-14] MEDS: ACETAMINOPHEN 325 MG TAB PO PRN (01:32)
[2016-07-14] MEDS: HEPARIN SOD 5000 UNIT/0.5 ML CARP SQ SCH ×3 (05:33→21:23)
[2016-07-14 05:43] LABS: HEMATOCRIT 31.9 % (37-47); MEAN CELL VOLUME 100.3 fL (80-100); MEAN CORPUSCULAR HEMOGLOBIN 29.2 pg (25-34); MEAN CORPUSCULAR HGB CONC 29.2 g/dl (32-36); MEAN PLATELET VOLUME 9.6 fL (7.4-10.4); PLATELET COUNT 231 K/uL (130-400); RED BLOOD COUNT 3.18 M/uL (4.2-5.4); WHITE BLOOD COUNT 7.29 K/uL (4.8-10.8)
[2016-07-14] MEDS: DEXTROSE 5% IV SCH ×2 (05:52→17:15)
[2016-07-14] MEDS: FUROSEMIDE IV SCH ×2 (05:52→17:15)
[2016-07-14 06:16] LABS: BUN/CREATININE RATIO 18.7 (10-20); CALCIUM 7.2 mg/dl (8.5-10.1); CREATININE 1.5 mg/dl (0.60-1.20); POTASSIUM 3.1 mmol/L (3.5-5.1)
[2016-07-14 06:17] LABS: PHOSPHORUS 2.7 mg/dl (2.5-4.9)
[2016-07-14] MEDS: ALBUT/IPRATROP 3MG/0.5MG NEB 3 ML VIAL INH SCH ×4 (07:03→19:39)
--- NOTE | 2016-07-14 07:16 | Family Medicine Progress Note ---
Progress Note Date of Service July 14, 2016. Subjective Pt evaluation today including: conversation w/ patient, physical exam, chart review, lab review Patient sitting up in chair. Denies acute issues overnight. She claims that her breathing has improved some, closer to baseline. She denies CP, palpitations, lightheadedness. She does mention that she had a headache although she states that it improved with Tylenol. She says wound care has seen her legs and wrapped it. She is upset because ID previously told her that wrapping creates moisture which breeds infection, and additionally her legs have now pruned up, which she thought was bad. She was educated on this and explained that the wrapping in the hospital with frequent dressing changes is appropriate, and the pruning is a result of water leaving and her previously stretched skin shrivelling. She understood and had no further questions. She is otherwise tolerating diet and sleeping without issue. Constitutional: No chills, No fever Respiratory: + dyspnea on exertion, No cough, No shortness of breath, No wheezing Cardiovascular: + edema, + orthopnea, No PND, No chest pain, No palpitations Abdomen: No diarrhea, No nausea, No pain, No vomiting Musculoskeletal: + swelling Female : No dysuria, No hematuria Objective Vital Signs Date Time Temp Pulse Resp B/P Pulse Ox O2 Delivery O2 Flow Rate FiO2 07/14/16 07:03 93 16 93 Nasal Cannula 3.0 07/14/16 04:25 36.7 79 20 132/63 91 BiPAP 30 07/14/16 04:13 94 Nasal Cannula 3.0 07/14/16 00:12 94 Nasal Cannula 3.0 07/14/16 00:10 36.7 88 21 118/88 93 Nasal Cannula 4.0 07/13/16 23:09 94 Nasal Cannula 3.0 07/13/16 20:20 37.0 93 18 146/69 97 Nasal Cannula 3.0 07/13/16 19:07 93 16 91 Nasal Cannula 3.0 07/13/16 16:18 36.7 90 16 158/74 94 Nasal Cannula 3.0 07/13/16 16:00 5 Nasal Cannula 3.0 07/13/16 14:57 95 16 93 Nasal Cannula 3.0 07/13/16 12:00 96 Nasal Cannula 3.0 07/13/16 11:31 37.2 86 20 125/64 95 Nasal Cannula 3.0 07/13/16 11:11 88 16 96 Nasal Cannula 3.0 07/13/16 08:13 36.6 90 20 129/60 94 Nasal Cannula 3.0 07/13/16 08:00 94 Nasal Cannula 3.0 Physical Exam General Appearance: WD/WN, no apparent distress, + obese ENT: hearing grossly normal Neck: supple Respiratory/Chest: no respiratory distress, no accessory muscle use, + decreased breath sounds Cardiovascular: regular rate, rhythm, no murmur Abdomen: normal bowel sounds, non tender, soft, + pertinent finding (Erythema and a punctate wound under right panus. Dressing shows hemoserous drainage.) Extremities: + inflammation (seen at feet), + pedal edema, + pertinent finding (Bilateral lower limbs covered in dressing) 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: alert, normal mood/affect, oriented x 3 Laboratory Results Results Past 24 Hours Test 07/13/16 20:41 07/14/16 05:31 07/14/16 06:54 07/14/16 11:29 Range/Units Bedside Glucose 276 159 197 70-90 mg/dl White Blood Count 7.29 4.8-10.8 K/uL Red Blood Count 3.18 4.2-5.4 M/uL Hemoglobin 9.3 12.0-16.0 g/dL Hematocrit 31.9 37-47 % Mean Corpuscular Volume 100.3 80-100 fL Mean Corpuscular Hemoglobin 29.2 25-34 pg Mean Corpuscular Hemoglobin Concent 29.2 32-36 g/dl RDW Standard Deviation 69.7 36.4-46.3 fL RDW Coefficient of Variation 19.4 11.5-14.5 % Platelet Count 231 130-400 K/uL Mean Platelet Volume 9.6 7.4-10.4 fL Nucleated RBC Absolute Count (auto) 0.13 0-0 K/uL Nucleated Red Blood Cells % 1.7 % Sodium Level 138 136-145 mmol/L Potassium Level 3.1 3.5-5.1 mmol/L Chloride Level 97 98-107 mmol/L Carbon Dioxide Level 40 21-32 mmol/L Anion Gap 1.0 3-11 mmol/L Blood Urea Nitrogen 28 7-18 mg/dl Creatinine 1.50 0.60-1.20 mg/dl Est Creatinine Clear Calc Drug Dose 57.8 ml/min Estimated GFR () 42.8 Estimated GFR (Non- 37.0 BUN/Creatinine Ratio 18.7 10-20 Random Glucose 154 70-99 mg/dl Calcium Level 7.2 8.5-10.1 mg/dl Phosphorus Level 2.7 2.5-4.9 mg/dl Test 07/14/16 16:06 Range/Units Bedside Glucose 258 70-90 mg/dl Assessment and Plan 60 year old female with cor pulmonale and heart failure, COPD and chronic hypoxic respiratory failure requiring 3L O2 baseline at home, DM, CKD III, morbid obesity, HLD, and chronic venous insufficiency admitted with progressive SOB and seeping abdominal wound. 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 BNP 296. Trop negative. CXR on 07/11 shows pulm vasc congestion. Last echo 07/25/15: Hyperdynamic LV systolic function. Mild concentric LV hypertrophy. LV diastolic dysfunction. Mild RV dilatation and systolic dysfunction. Mild tricuspid regurgitation. Mildly elevated RV systolic pressure. Normal central venous pressure. 25lbs gained since last admission. Nephrology consulted - recs appreciated. Patient undergoing aggressive diuresis , currently tolerating it well. - Furosemide drip - plans to switch to IV then PO as per nephrology. - Diamox 250mg BID - Metoprolol 150mg daily - KCl replacement as necessary - 20mEq daily + 40mg PO KCl today - I/O: -5.5 L this hospitalization thus far - Daily weights, strict I/O's, low salt diet Abdominal cellulitis/wound - Serous seepage, no purulent discharge, likely extravasated fluid from edematous soft tissue. ID and wound care consulted - recs appreciated. Wound cultured coag negative staph. Discontinued empiric Zosyn after 2 days. Blood cultures negative. - IV Vancomycin (Day 5) with plan to transition patient to PO Doxycycline on discharge, as per ID - Trend CBC COPD - current SOB more likely secondary to fluid overload, if no improvement with diuresis, may consider adjustment to COPD medications - Advair, Spiriva, DuoNeb - Home dose of prednisone 15mg daily - 3L O2 via nasal cannula during the day, Bipap overnight MGUS - diagnosed at last admission, followed by Dr. Delong - Pending outpatient tests can be ordered once acute issues dealt with: CBC w/ diff, CMP, immunofixation - 24 hr urine, immunonfixation - serum, kappa/Lambda light chains - free w/ ratio - serum, protein electrophoresis panel -24 hr urine , serum protein electrophoresis, metastatic skeletal survery (PET and bone scan) - These tests done now during aggressive diuresis may skew results CKD III - Creatinine 1.7-2.0 at baseline. Anticipating changes with aggressive diuresis. Nephrology consulted - recs appreciated - Cr 1.5 this morning - Patient agreeable to potential HD if creatinine worsens - Monitor via BMP Chronic venous insufficiency - bilateral, chronic without recent change, not likely to be Cellulitis. Wound Care consulted- recs appreciated - Keep legs elevated - Ongoing dressing changes HTN - BP in adequate range - Metoprolol 150mg daily + Verapamil 240mg daily DM - last HbA1c 6.3 on 05/20/16 - Lantus 40 units BID + ISS - Accu check ac/hs Hypophosphatemia - Resolved. 2.2 on 07/13. Unable to obtain IV access, thus supplemented with 2 tabs of Phospha 220 Neutral. Phosphate now WNL Gout - asymptomatic - Allopurinol 100mg daily Chronic pain - Pregabalin VTE prophylaxis - Heparin Code Status - Do not resuscitate Resident Physician Supervision Note: I interviewed and examined the patient. Discussed with Dr. Laughlin and agree with findings and plan as documented in the note. Any exceptions or clarifications are listed here: None Documented By: Michael Lockhart walking in room with PT feeling a good deal better than at admission office notes reviewed ros otherwise negative except for as above o: vitals noted, nad, breathing unlabored acute on chronic diastolic CHF w CKD -ongoing IV diuresis -?outpatient failure cause (ddx being Na intake, nonadherence to bumex >> de gerald from the disease process but possible) chronic suppressive therapy for b/l LE venous stasis and recurrent cellulitis pannus cellulitis - continue current antibiotics DVT proph - heparin SQ Continued [facility] stay due to: multiple IV medications needed Discharge planning: home Resident Tracking Resident Involvement: Resident Care Provided Care Provided: Adult Hospital Medicine
[2016-07-14] MEDS: FLUTICASONE/SALMETEROL (ADVAIR) 500/50 INH 14 PUFF INH SCH ×2 (07:34→21:16)
[2016-07-14] MEDS: INSULIN ASPART 100 UNITS/ML 3 ML PEN SC SCH ×4 (07:35→21:22)
[2016-07-14] MEDS: INSULIN GLARGINE SC SCH ×2 (07:36→21:23)
[2016-07-14] MEDS: ATORVASTATIN 20 MG TAB PO SCH (07:36)
[2016-07-14] MEDS: POTASSIUM CHLORIDE 20 MEQ TABCR PO SCH ×2 (07:37→08:59)
[2016-07-14] MEDS: CYANOCOBALAMIN 2,500 MCG SUBL TAB PO SCH (07:37)
[2016-07-14] MEDS: TOCOPHERYL, DL-ALPHA 400 INTER.UNIT CAP PO SCH (07:37)
[2016-07-14] MEDS: CEROVITE ADV FORMULA TAB PO SCH (07:38)
[2016-07-14] MEDS: METOPROLOL SUCC 50MG EXT REL TAB PO SCH (07:38)
[2016-07-14] MEDS: ALLOPURINOL 100 MG TAB PO SCH (07:38)
[2016-07-14] MEDS: VERAPAMIL HCL 240 MG TABCR PO SCH (07:38)
[2016-07-14] MEDS: CHOLECALCIFEROL 1000 INTER.UNIT TAB PO SCH (07:39)
[2016-07-14] MEDS: PYRIDOXINE HCL 50 MG TAB PO SCH (07:39)
[2016-07-14] MEDS: AcetaZOLAMIDE 250 MG TAB PO SCH ×2 (07:39→21:16)
[2016-07-14] MEDS: PANTOprazole SOD 40 MG TAB PO SCH (07:40)
[2016-07-14] MEDS: TIOTROPIUM BROMIDE 5 PUFF/90 MCG INH INH SCH (07:40)
[2016-07-14] MEDS: PREGABALIN 150 MG CAP PO SCH ×3 (07:42→21:23)
[2016-07-14] MEDS ORDERED: INSULIN GLARGINE SC ONE (08:15)
[2016-07-14] MEDS ORDERED: POTASSIUM CHLORIDE 20 MEQ TABCR PO SCH (09:00)
--- NOTE | 2016-07-14 10:28 | Pharmacy Progress Note ---
Glycemic Control: Progress Nt Date of Service July 14, 2016. Scope Glycemic Pharmacist consulted by Dr Overton on 07/10/16 for glycemic control and to write orders per [facility] inpatient glycemic control protocol. Objective Accuchecks BSG (last 24hrs): Test 07/13/16 11:30 07/13/16 16:27 07/13/16 20:41 07/14/16 05:31 Bedside Glucose 160 mg/dl (70-90) 242 mg/dl (70-90) 276 mg/dl (70-90) Random Glucose 154 mg/dl (70-99) Test 07/14/16 06:54 Bedside Glucose 159 mg/dl (70-90) Laboratory Data (last 24hrs) HbA1c: 6.3% on 05/20/16 * However, this result is likely somewhat unreliable in CKD d/t altered RBC turnover rate (reduced RBC life span, iron deficiency anemia) Recent Pertinent Medications Outpatient Anti-diabetic Regimen: * Toujeo 70 units SQ BID * NovoLog * 50 units SQ with breakfast * 50 units SQ with lunch * 90 units SQ with dinner * 40 units SQ at bedtime * Ms Gaytan takes prednisone chronically at home * A1c = 6.3% 04/2016 The patient is currently receiving: * Basal insulin: Lantus 60 - 70 units every 12 hours (dosing is based on BSG) * Correctional Insulin: Novolog Correction per scale ACHS Goal Range: Low 110 mg/dL - High 140 mg/dL Correction Factor: 5 mg/dL/unit * Prandial insulin: Per carb ratio of 1 unit per 2 grams CHO consumed Risk Factors for Insulin Resistance: * Infection * Volume overload --> leads to erratic insulin absorption * Diet: T2DM/Low Na, 1500mL volume Assessment & Plan ASSESSMENT: Initial: * Type 2 diabetic known from prior admissions and consults, the last being in May 2016 * A1c is WNL and shows adequate glycemic control as an outpatient with ~370 units of insulin per day * Large doses of insulin needed as an outpatient, however needs change when admitted * large doses required when on ATC steroids * Currently, BSGs are WNL * Transition Toujeo to Lantus as the former is not on formulary * Doses of insulin will be decreased initially and titrated based on response as inpatient needs usually vary compared to home regimen * NovoLog parameters based on historical data Current: * BSGs trending upwards secondary to reduced outpatient insulin doses with stress/infection & prednisone * Pt has required 307 units of the past 24hrs which is yielding near-adequate control today. * Pt uses ~370units of insulin as an outpatient but typically requires slightly less than this in house most likely d/t controlled diabetic diet * AM fasting BSG slightly elevated at 159mg/dl --> will increase basal insulin to outpatient dosing of 70 units SQ BID * Post-prandial BSGs trend upwards throughout the day --> will tighten CR slightly * Prednisone (on at home) * Current NovoLog parameters used previously with same dose of daily prednisone PLAN FOR INPATIENT GLYCEMIC CONTROL: Continue SQ basal bolus insulin regimen based on a total daily dose of ~ 300 units * Basal Insulin: * Change to: Lantus 70 units SQ BID (was Lantus 60-70 units BID based on BSG) * Bolus Insulin: NovoLog SQ AC and HS * Correction factor: 5mg/dL/unit * Tighten Carb ratio: 1 unit per 1.5 g of CHO consumed (was 2) * Goal range: 110-140mg/dL based on age and glycemic control as an outpatient * A1c - current * added to discharge instructions RECOMMENDATIONS FOR DISCHARGE: * Likely, Ms Gaytan can continue her home regimen at discharge. Continue to monitor steroid dose and adjust insulins accordingly. * Please note that the plan above was derived based on current level of insulin resistance and hospital stress. These recommendations are appropriate for inpatient admission only. Plan of care upon discharge will need to be reassessed to avoid potential outpatient hypo/hyperglycemia. Thank you.
--- NOTE | 2016-07-14 11:26 | Nephrology Progress Note ---
Nephrology Progress Note Date of Service July 14, 2016. Chief Complaint Follow-up for chronic kidney disease and diuretic resistant volume overload. Subjective Jazmin was seen and examined in her room this morning with her at bedside. She has been otherwise doing well. Continues to have decent urine output and responding to diuretics drip. Renal function remained stable creatinine 1.5. urine output more than 5 liters, net negative. Blood pressure stable. Review of Systems A complete review of systems was performed. Pertinent positives are noted above. All other systems are negative. Vital Signs Last 8 Hrs Date Time Temp Pulse Resp B/P Pulse Ox O2 Delivery O2 Flow Rate FiO2 07/14/16 07:48 36.5 79 20 122/59 98 07/14/16 07:03 93 16 93 Nasal Cannula 3.0 07/14/16 04:25 36.7 79 20 132/63 91 BiPAP 30 07/14/16 04:13 94 Nasal Cannula 3.0 I & O 24-Hour Column 07/14/16 08:00 Intake Total 3737 ml Output Total 4750 ml Balance -1013 ml Last Recorded Weight Weight (Kilograms): 153.100 Physical Exam GENERAL: Middle-aged female, morbidly obese, AAA x 3, pleasant,, not in any distress. NECK: Supple, no JVD. RESPIRATORY: Normal breathing efforts, no accessory muscle use, clear to auscultation bilaterally, no wheezes or rales. CARDIOVASCULAR: S1, S2 normal, rate rhythm regular. EXTREMITY: 3 + bilateral lower extremity edema, with weeping bullae, currently wrapped in dressing NEURO: speech fluent. PSYCHIATRY: Normal mood and judgment. Family History Cancer Diabetes mellitus Gallbladder disease Heart disease Lung disease Negative for CKD / ESRD Social History Smoking Status: Former smoker Drug Use: none Marital Status: Housing Status: lives with family Occupation: unemployed . Lives w/ . Remote h/o tobacco use Laboratory Results Past 24 Hours 07/14/16 05:31 07/14/16 05:31 Test 07/13/16 11:30 07/13/16 16:27 07/13/16 20:41 07/14/16 05:31 Bedside Glucose 160 mg/dl (70-90) 242 mg/dl (70-90) 276 mg/dl (70-90) Red Blood Count 3.18 M/uL (4.2-5.4) Mean Corpuscular Volume 100.3 fL (80-100) Mean Corpuscular Hemoglobin 29.2 pg (25-34) Mean Corpuscular Hemoglobin Concent 29.2 g/dl (32-36) RDW Standard Deviation 69.7 fL (36.4-46.3) RDW Coefficient of Variation 19.4 % (11.5-14.5) Mean Platelet Volume 9.6 fL (7.4-10.4) Nucleated RBC Absolute Count (auto) 0.13 K/uL (0-0) Nucleated Red Blood Cells % 1.7 % Anion Gap 1.0 mmol/L (3-11) Est Creatinine Clear Calc Drug Dose 57.8 ml/min Estimated GFR () 42.8 Estimated GFR (Non- 37.0 BUN/Creatinine Ratio 18.7 (10-20) Calcium Level 7.2 mg/dl (8.5-10.1) Phosphorus Level 2.7 mg/dl (2.5-4.9) Test 07/14/16 06:54 Bedside Glucose 159 mg/dl (70-90) Allergies Coded Allergies: Daptomycin (Verified Allergy, Mild, HIVES, 06/14/16) itching Codeine (Verified Allergy, Unknown, unknown, 06/14/16) has tolerated morphine Iodine (Verified Allergy, Unknown, 06/14/16) Shellfish (Verified Allergy, Unknown, 06/14/16) Sulfamethoxazole w/Trimethoprim (Verified Allergy, Unknown, RASH, 06/14/16) Medications Current Inpatient Medications Medications (Trade) Dose Ordered Sig/Duyen Route Start Time Stop Time Status Last Admin Dose Admin Heparin Sodium (Porcine) (Heparin Sq 5000 Unit/0.5ml) 5,000 unit Q8 SQ 07/10/16 22:00 08/09/16 21:59 07/14/16 05:33 5,000 UNIT Acetaminophen (Tylenol Tab) 650 mg Q4H PRN PO 07/10/16 20:30 08/09/16 20:29 07/14/16 01:32 650 MG Nitroglycerin (Nitrostat Tab) 0.4 mg UD PRN SL 07/10/16 20:30 08/09/16 20:29 Allopurinol (Zyloprim Tab) 100 mg DAILY PO 07/11/16 09:00 08/10/16 08:59 07/14/16 07:38 100 MG Atorvastatin Calcium (Lipitor Tab) 40 mg DAILY PO 07/11/16 09:00 08/10/16 08:59 07/14/16 07:36 40 MG Cholecalciferol (Vitamin D Tab) 2,000 inter.unit DAILY PO 07/11/16 09:00 08/10/16 08:59 07/14/16 07:39 2,000 INTER.UNIT Salmeterol Xinafoate/ Fluticasone (Advair Diskus 500/50 Inh) 1 puff BID INH 07/11/16 09:00 08/10/16 08:59 07/14/16 07:34 1 PUFF Metoprolol Succinate (Toprol Xl Tab) 150 mg DAILY PO 07/11/16 09:00 08/10/16 08:59 07/14/16 07:38 150 MG Miconazole Nitrate (Desenex Powder) 1 appln PRN PRN EXT 07/10/16 21:15 08/09/16 21:14 07/11/16 21:15 1 APPLN Multivitamins/ Minerals (Multivitamin W/ Minerals Tab) 1 tab DAILY PO 07/11/16 09:00 08/10/16 08:59 07/14/16 07:38 1 TAB Pregabalin (Lyrica Cap) 150 mg TID PO 07/10/16 23:00 08/09/16 22:59 07/14/16 07:42 150 MG Pyridoxine HCl (Vitamin B-6 Tab) 200 mg DAILY PO 07/11/16 09:00 08/10/16 08:59 07/14/16 07:39 200 MG Tiotropium Bostic (Spiriva Handihaler Inhaler) 1 puff DAILY INH 07/11/16 09:00 08/10/16 08:59 07/14/16 07:40 1 PUFF Verapamil HCl (Calan-Sr Tab) 240 mg DAILY PO 07/11/16 09:00 08/10/16 08:59 07/14/16 07:38 240 MG Cyanocobalamin (Vitamin B-12 Tab) 2,500 mcg DAILY PO 07/11/16 09:00 08/10/16 08:59 07/14/16 07:37 2,500 MCG Miscellaneous Information (Order Awaiting Action) 1 ea QS N/A 07/10/16 22:00 08/09/16 21:59 sw-Xqesw-Uoclzxevyr Acetate (Vitamin E Cap) 800 interunit DAILY PO 07/11/16 09:00 08/10/16 08:59 07/14/16 07:37 800 INTERUNIT Albuterol/ Ipratropium (Duoneb) 3 ml QIDR INH 07/11/16 08:00 08/10/16 07:59 07/14/16 07:03 3 ML Glucose (Glucose 40% Gel) 15-30 GRAMS 15 GRAMS... UD PRN PO 07/10/16 22:15 08/09/16 22:14 Glucose (Glucose Chew Tab) 4-8 Tablets 4 Tabl... UD PRN PO 07/10/16 22:15 08/09/16 22:14 Dextrose (Dextrose 50% 50ML Syringe) 25-50ML OF 50% DW IV FOR... UD PRN IV 07/10/16 22:15 08/09/16 22:14 Glucagon (Glucagon Inj) 1 mg UD PRN SQ 07/10/16 22:15 08/09/16 22:14 Vancomycin HCl (Consult) 1 ea UD PRN N/A 07/10/16 23:30 08/09/16 23:29 Miscellaneous Information (Consult Glycemic Management Pharmacy) 1 ea UD PRN N/A 07/11/16 00:30 08/10/16 00:29 Insulin Aspart (novoLOG ASPART) SLIDING SCALE ACHS SC 07/11/16 07:00 08/10/16 06:59 07/14/16 07:35 22 UNITS Prednisone (PredniSONE TAB) 15 mg QAM PO 07/12/16 09:00 08/11/16 08:59 07/14/16 07:39 15 MG Pantoprazole Sodium (Protonix Tab) 40 mg QAM PO 07/12/16 09:00 08/11/16 08:59 07/14/16 07:40 40 MG Insulin Glargine SEE PROTOCOL BID SC 07/11/16 21:00 08/10/16 20:59 07/14/16 07:36 60 UNIT Furosemide/ Dextrose (Lasix Inj/D5W 500ml) 500 ml @ 40 mls/hr [id number] IV 07/11/16 15:00 07/15/16 14:59 07/14/16 05:52 40 MLS/HR Acetazolamide 250 mg 250 mg BID PO 07/12/16 21:00 07/15/16 09:01 07/14/16 07:39 250 MG Vancomycin HCl/ Sodium Chloride (Vancomycin Inj/ Nss 500ml) 532 ml @ 200 mls/hr Q24H IV 07/13/16 14:00 07/21/16 23:59 07/13/16 15:40 200 MLS/HR Potassium Chloride (Klor-Con Tab) 40 meq DAILY PO 07/14/16 09:00 08/13/16 08:59 Impression (1) Cor pulmonale, chronic (2) Obesity hypoventilation syndrome (3) Abdominal wall cellulitis (4) Chronic kidney disease (CKD) stage G3b/A1, moderately decreased glomerular filtration rate (GFR) between 30-44 mL/min/1.73 square meter and albuminuria creatinine ratio less than 30 mg/g (5) Diabetes (6) Anasarca Recommendations -- continue lasix drip --continue diamox for alkalosis -- Cr stable, Baseline creatinine has been 1.7 - 2.0 -- Discussed the possibility of worsening kidney function in response to IV diuretics. Indications/benefits/risks/alternatives to vascular access placement and HD discussed in detail with the patient and her .They voiced understanding. Mrs. Gaytan is now agreeable to HD if her kidney function declines further. -- Serum calcium has corrected -- Serum free light chain ration was markedly elevated. Patient has been undergoing outpatient evaluation for a monoclonal gammopathy by Dr. Delong
[2016-07-14] MEDS: VANCOMYCIN INJ 1,600 MG in SODIUM CHLORIDE 0.9% 500ML 500 ML IV SCH (14:08)
[2016-07-14] MEDS ORDERED: POTASSIUM CHLORIDE 10 MEQ TABCR PO STA (16:46)
[2016-07-15] VITALS (10 sets, daily range): BP systolic 108–135; BP diastolic 62–73; PULSE 71–89; TEMP 36.4–36.6; O2SAT 91–93
[2016-07-15] MEDS: HEPARIN SOD 5000 UNIT/0.5 ML CARP SQ SCH ×3 (05:04→21:15)
[2016-07-15] MEDS: FUROSEMIDE IV SCH ×2 (06:45→19:23)
[2016-07-15] MEDS: DEXTROSE 5% IV SCH ×2 (06:45→19:23)
--- NOTE | 2016-07-15 07:20 | Family Medicine Progress Note ---
Progress Note Date of Service July 15, 2016. Subjective Pt evaluation today including: conversation w/ patient, physical exam, chart review, lab review Patient sitting up in chair. Denies acute issues overnight. She claims that her breathing continues to improve, she denies CP, palpitations, lightheadedness. She states her wound in her abdomen and both of her legs are seeping, and there are twice daily dressing changes occurring in hospital. She was upset because nephrology told her to cut down on her fluid intake because it was 3L in, but she does not understand how she could have consumed that much as she only takes sips of the limited fluid provided by nursing, and is quite thirsty. I explained to her that while on drip, the large amount of her fluid intake is from her IV. Once converted to PO, she will have a little more fluid balance to consume orally. She understood and had no further questions. She is otherwise tolerating diet and sleeping without issue. Constitutional: No chills, No fever Respiratory: + dyspnea on exertion (improving), No cough, No shortness of breath, No wheezing Cardiovascular: + edema, + orthopnea, No PND, No chest pain, No palpitations Abdomen: No constipation, No diarrhea, No nausea, No pain, No vomiting Female : No dysuria, No hematuria Objective Vital Signs Date Time Temp Pulse Resp B/P Pulse Ox O2 Delivery O2 Flow Rate FiO2 07/14/16 23:00 36.7 89 16 132/78 94 Nasal Cannula 3.0 07/14/16 20:00 Nasal Cannula 3.0 Humidified Oxygen 07/14/16 19:39 88 16 92 Nasal Cannula 3.0 07/14/16 19:05 Nasal Cannula 3.0 Humidified Oxygen 07/14/16 19:05 36.6 18 121/75 96 Nasal Cannula 3.0 Humidified Oxygen 07/14/16 16:01 37.0 88 20 111/58 94 Nasal Cannula 3.0 Humidified Oxygen 07/14/16 16:00 Nasal Cannula 3.0 07/14/16 15:58 82 96 07/14/16 12:00 Nasal Cannula 3.0 07/14/16 11:44 36.4 82 19 102/49 92 Nasal Cannula 3.0 07/14/16 11:19 80 16 93 Nasal Cannula 3.0 07/14/16 08:00 Nasal Cannula 3.0 07/14/16 07:48 36.5 79 20 122/59 98 Physical Exam General Appearance: WD/WN, + obese ENT: hearing grossly normal Respiratory/Chest: no respiratory distress, no accessory muscle use, + decreased breath sounds (bibasilar) Cardiovascular: regular rate, rhythm, no murmur Abdomen: normal bowel sounds, non tender, soft, + pertinent finding (abdominal wound below left panus, dressing shows ongoing evidence of serous drainage) Extremities: + pertinent finding (Bilateral dressing on lower extremities. Erythema seen around the edge show improvement) 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: alert, normal mood/affect, oriented x 3 Skin: + pertinent finding (Bilateral lower limbs consistent with chronic venous insufficiency) Laboratory Results Results Past 24 Hours Test 07/14/16 11:29 07/14/16 16:06 07/14/16 20:08 07/15/16 06:52 Range/Units Bedside Glucose 197 258 174 70-90 mg/dl Sodium Level 139 136-145 mmol/L Potassium Level 3.4 3.5-5.1 mmol/L Chloride Level 99 98-107 mmol/L Carbon Dioxide Level 36 21-32 mmol/L Anion Gap 4.0 3-11 mmol/L Blood Urea Nitrogen 30 7-18 mg/dl Creatinine 1.60 0.60-1.20 mg/dl Est Creatinine Clear Calc Drug Dose 54.1 ml/min Estimated GFR () 39.6 Estimated GFR (Non- 34.2 BUN/Creatinine Ratio 18.5 10-20 Random Glucose 243 70-99 mg/dl Calcium Level 8.0 8.5-10.1 mg/dl Phosphorus Level 2.7 2.5-4.9 mg/dl Magnesium Level 2.4 1.8-2.4 mg/dl Test 07/15/16 08:16 Range/Units Bedside Glucose 239 70-90 mg/dl Assessment and Plan 60 year old female with cor pulmonale and heart failure, COPD and chronic hypoxic respiratory failure requiring 3L O2 baseline at home, DM, CKD III, morbid obesity, HLD, and chronic venous insufficiency admitted with progressive SOB and seeping abdominal wound. 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 BNP 296. Trop negative. CXR on 07/11 shows pulm vasc congestion. Last echo 07/25/15: Hyperdynamic LV systolic function. Mild concentric LV hypertrophy. LV diastolic dysfunction. Mild RV dilatation and systolic dysfunction. Mild tricuspid regurgitation. Mildly elevated RV systolic pressure. Normal central venous pressure. 25lbs gained since last admission. Nephrology consulted - recs appreciated. Patient undergoing aggressive diuresis , currently tolerating it well. - Furosemide drip - plans to switch to IV then PO as per nephrology. - Diamox 250mg BID - Metoprolol 150mg daily - KCl replacement as necessary - 40mEq daily - I/O: -7.9 L this hospitalization thus far - Daily weights, strict I/O's, low salt diet, fluid restricted to 1500ml daily Abdominal cellulitis/wound - Serous seepage, no purulent discharge, likely extravasated fluid from edematous soft tissue. ID and wound care consulted - recs appreciated. Wound cultured coag negative staph. Discontinued empiric Zosyn after 2 days. Blood cultures negative. - IV Vancomycin (Day 6) with plan to transition patient to PO Doxycycline on discharge, as per ID - Trend CBC COPD - current SOB more likely secondary to fluid overload, if no improvement with diuresis, may consider adjustment to COPD medications - Advair, Spiriva, DuoNeb - Home dose of prednisone 15mg daily - 3L O2 via nasal cannula during the day, BiPAP overnight MGUS - diagnosed at last admission, followed by Dr. Delong - Pending outpatient tests can be ordered once acute issues dealt with: CBC w/ diff, CMP, immunofixation - 24 hr urine, immunonfixation - serum, kappa/Lambda light chains - free w/ ratio - serum, protein electrophoresis panel -24 hr urine , serum protein electrophoresis, metastatic skeletal survery (PET and bone scan) - These tests done now during aggressive diuresis may skew results CKD III - Creatinine 1.7-2.0 at baseline. Anticipating changes with aggressive diuresis. Nephrology consulted - recs appreciated - Cr 1.6 this morning - Patient agreeable to potential HD if creatinine worsens - Monitor via BMP Chronic venous insufficiency - bilateral, chronic without recent change, not likely to be Cellulitis. Wound Care consulted- recs appreciated - Keep legs elevated - Ongoing dressing changes HTN - BP in adequate range - Metoprolol 150mg daily + Verapamil 240mg daily DM - last HbA1c 6.3 on 05/20/16 - Lantus 40 units BID + ISS - Accu check ac/hs Hypophosphatemia - Resolved. 2.2 on 07/13. Unable to obtain IV access, thus supplemented with 2 tabs of Phospha 220 Neutral. Phosphate now WNL Gout - asymptomatic - Allopurinol 100mg daily Chronic pain - Pregabalin VTE prophylaxis - Heparin SQ Code Status - Do not resuscitate Resident Physician Supervision Note: I interviewed and examined the patient. Discussed with Dr. Laughlin and agree with findings and plan as documented in the note. Any exceptions or clarifications are listed here: None Documented By: Michael Lockhart feeling better breathing easier abdomen improving vitals noted nad breathing unlabored no pallor or icterus acute on chronic combined chf - improving. continue current care. seems actually fairly adherent to low Na, and definitely adherent to meds - so likely more cardiorenal than echo / Cr would suggest. ongoing diuretic management per nephrology, improving DVT proph - heparin SQ Continued [facility] stay due to: multiple IV medications needed Discharge planning: home Resident Tracking Resident Involvement: Resident Care Provided Care Provided: Adult Hospital Medicine
[2016-07-15] MEDS: ALBUT/IPRATROP 3MG/0.5MG NEB 3 ML VIAL INH SCH ×4 (07:41→20:01)
[2016-07-15 07:44] LABS: BUN/CREATININE RATIO 18.5 (10-20); CREATININE 1.6 mg/dl (0.60-1.20); POTASSIUM 3.4 mmol/L (3.5-5.1)
[2016-07-15 08:16] LABS: MAGNESIUM 2.4 mg/dl (1.8-2.4); PHOSPHORUS 2.7 mg/dl (2.5-4.9)
--- NOTE | 2016-07-15 08:51 | CONSULTATION REPORT ---
DATE OF CONSULTATION: 07/11/2016 DATE OF CONSULTATION: 07/11/2016. CHIEF COMPLAINT: Ulceration to the abdominal wall as well as drainage from both lower extremities. HISTORY OF PRESENT ILLNESS: The patient was recently admitted yesterday to [facility] for further evaluation of edema and "fluid leaking from both of her legs". The patient also noted the presence of an area of redness and swelling of her left lower abdomen which opened and drained. The patient denies any fever, chills or night sweats. The patient denies any known trauma. The patient has a longstanding history of chronic congestive failure as well as chronic obstructive lung disease. The patient states that she has noticed some increased swelling over the past month. The patient is not engaged in any lymphedema therapy, although she is attempting to have this ordered. The patient denies any other systemic complaints at this time. PAST MEDICAL HISTORY: Positive for congestive heart failure, COPD, diabetes, sciatica, and chronic cellulitis of both lower extremities. SOCIAL HISTORY: The patient is a nonsmoker, and lives at home. MEDICATIONS: Were noted in the nursing notes were reviewed. ALLERGIES: PRESENT FOR DAPTOMYCIN, CODEINE, SHELLFISH, BACTRIM AND IODINE. REVIEW OF SYSTEMS: Ten systems were reviewed in their entirety and positive findings were noted in the chief complaint and history of present illness. PHYSICAL EXAMINATION: VITAL SIGNS: Were reviewed and found to be unremarkable. The patient is afebrile. GENERAL: The patient is lying in hospital bed in no acute distress, alert and cooperative throughout the examination. HEAD, EYES, EARS, NOSE, AND THROAT: Pupils equal and reactive to light. Sclerae clear. NECK: Supple. CHEST: Heart and lungs clear to auscultation. ABDOMEN: Reveals the presence of a very small opening on the left lower quadrant of the abdomen with no active drainage or periwound erythema noted. This site measures 0.3 x 0.7 x 0.5 cm. EXTREMITY EXAMINATION: Shows the presence of bilateral peripheral edema. There is erythema noted in both lower extremities from the knee distal to the foot circumferentially. There is some clear drainage present at both sites. No purulent drainage noted or odor present. NEUROLOGIC: The patient is alert and oriented x3. No focal deficits noted. IMPRESSION: 1. Abscess, abdominal wall. 2. Chronic venous insufficiency along with chronic lymphedema and venous stasis ulcerations, bilateral lower extremities. PLAN: At this time, no sites did require debridement. The abdominal wall abscess area was cultured. Packing applied, dressing was applied. Both lower extremities had Aquacel AG, ABDs and gauze dressings applied. Dressings to be changed daily. The patient will be reevaluated as needed during hospitalization and will be followed in the outpatient clinic if needed.
[2016-07-15] MEDS: FLUTICASONE/SALMETEROL (ADVAIR) 500/50 INH 14 PUFF INH SCH ×2 (09:08→21:20)
[2016-07-15] MEDS: VERAPAMIL HCL 240 MG TABCR PO SCH (09:08)
[2016-07-15] MEDS: TIOTROPIUM BROMIDE 5 PUFF/90 MCG INH INH SCH (09:08)
[2016-07-15] MEDS: POTASSIUM CHLORIDE 20 MEQ TABCR PO SCH (09:09)
[2016-07-15] MEDS: AcetaZOLAMIDE 250 MG TAB PO SCH ×2 (09:09→21:21)
[2016-07-15] MEDS: PANTOprazole SOD 40 MG TAB PO SCH (09:10)
[2016-07-15] MEDS: CEROVITE ADV FORMULA TAB PO SCH (09:10)
[2016-07-15] MEDS: PREGABALIN 150 MG CAP PO SCH ×3 (09:10→21:20)
[2016-07-15] MEDS: ATORVASTATIN 20 MG TAB PO SCH (09:10)
[2016-07-15] MEDS: METOPROLOL SUCC 50MG EXT REL TAB PO SCH (09:11)
[2016-07-15] MEDS: CHOLECALCIFEROL 1000 INTER.UNIT TAB PO SCH (09:11)
[2016-07-15] MEDS: ALLOPURINOL 100 MG TAB PO SCH (09:11)
[2016-07-15] MEDS: TOCOPHERYL, DL-ALPHA 400 INTER.UNIT CAP PO SCH (09:11)
[2016-07-15] MEDS: PYRIDOXINE HCL 50 MG TAB PO SCH (09:11)
[2016-07-15] MEDS: CYANOCOBALAMIN 2,500 MCG SUBL TAB PO SCH (09:11)
[2016-07-15] MEDS: INSULIN ASPART 100 UNITS/ML 3 ML PEN SC SCH ×4 (09:13→21:14)
[2016-07-15] MEDS: INSULIN GLARGINE SC SCH ×2 (09:15→21:20)
[2016-07-15] MEDS ORDERED: INSULIN GLARGINE SC SCH (11:00)
--- NOTE | 2016-07-15 11:24 | Nephrology Progress Note ---
Nephrology Progress Note Date of Service July 15, 2016. Chief Complaint Follow-up for chronic kidney disease and diuretic resistant volume overload. Subjective Jazmin was seen and examined in her room this morning. She has been otherwise doing well. Continues to have decent urine output and responding to diuretics drip. Renal function remained stable creatinine 1.6. urine output more than 4 liters, minimum net negative as she has been drinking a lot . Blood pressure stable. Review of Systems A complete review of systems was performed. Pertinent positives are noted above. All other systems are negative. Vital Signs Last 8 Hrs Date Time Temp Pulse Resp B/P Pulse Ox O2 Delivery O2 Flow Rate FiO2 07/15/16 07:57 36.4 84 16 135/71 93 Humidified Oxygen 3.0 07/15/16 07:41 83 16 93 Nasal Cannula 3.0 I & O 24-Hour Column 07/15/16 08:00 Intake Total 1659 ml Output Total 3950 ml Balance -2291 ml Last Recorded Weight Weight (Kilograms): 153.100 Physical Exam GENERAL: Middle-aged female, morbidly obese, AAA x 3, pleasant,, not in any distress. NECK: Supple, no JVD. RESPIRATORY: Normal breathing efforts, no accessory muscle use, clear to auscultation bilaterally, no wheezes or rales. CARDIOVASCULAR: S1, S2 normal, rate rhythm regular. EXTREMITY: 3 + bilateral lower extremity edema, with weeping bullae, currently wrapped in dressing NEURO: speech fluent. PSYCHIATRY: Normal mood and judgment. Family History Cancer Diabetes mellitus Gallbladder disease Heart disease Lung disease Negative for CKD / ESRD Social History Smoking Status: Former smoker Drug Use: none Marital Status: Housing Status: lives with family Occupation: unemployed . Lives w/ . Remote h/o tobacco use Laboratory Results Past 24 Hours 07/15/16 06:52 Test 07/14/16 11:29 07/14/16 16:06 07/14/16 20:08 07/15/16 06:52 Bedside Glucose 197 mg/dl (70-90) 258 mg/dl (70-90) 174 mg/dl (70-90) Anion Gap 4.0 mmol/L (3-11) Est Creatinine Clear Calc Drug Dose 54.1 ml/min Estimated GFR () 39.6 Estimated GFR (Non- 34.2 BUN/Creatinine Ratio 18.5 (10-20) Calcium Level 8.0 mg/dl (8.5-10.1) Phosphorus Level 2.7 mg/dl (2.5-4.9) Magnesium Level 2.4 mg/dl (1.8-2.4) Allergies Coded Allergies: Daptomycin (Verified Allergy, Mild, HIVES, 06/14/16) itching Codeine (Verified Allergy, Unknown, unknown, 06/14/16) has tolerated morphine Iodine (Verified Allergy, Unknown, 06/14/16) Shellfish (Verified Allergy, Unknown, 06/14/16) Sulfamethoxazole w/Trimethoprim (Verified Allergy, Unknown, RASH, 06/14/16) Medications Current Inpatient Medications Medications (Trade) Dose Ordered Sig/Duyen Route Start Time Stop Time Status Last Admin Dose Admin Heparin Sodium (Porcine) (Heparin Sq 5000 Unit/0.5ml) 5,000 unit Q8 SQ 07/10/16 22:00 08/09/16 21:59 07/15/16 05:04 5,000 UNIT Acetaminophen (Tylenol Tab) 650 mg Q4H PRN PO 07/10/16 20:30 08/09/16 20:29 07/14/16 01:32 650 MG Nitroglycerin (Nitrostat Tab) 0.4 mg UD PRN SL 07/10/16 20:30 08/09/16 20:29 Allopurinol (Zyloprim Tab) 100 mg DAILY PO 07/11/16 09:00 08/10/16 08:59 07/14/16 07:38 100 MG Atorvastatin Calcium (Lipitor Tab) 40 mg DAILY PO 07/11/16 09:00 08/10/16 08:59 07/14/16 07:36 40 MG Cholecalciferol (Vitamin D Tab) 2,000 inter.unit DAILY PO 07/11/16 09:00 08/10/16 08:59 07/14/16 07:39 2,000 INTER.UNIT Salmeterol Xinafoate/ Fluticasone (Advair Diskus 500/50 Inh) 1 puff BID INH 07/11/16 09:00 08/10/16 08:59 07/14/16 21:16 1 PUFF Metoprolol Succinate (Toprol Xl Tab) 150 mg DAILY PO 07/11/16 09:00 08/10/16 08:59 07/14/16 07:38 150 MG Miconazole Nitrate (Desenex Powder) 1 appln PRN PRN EXT 07/10/16 21:15 08/09/16 21:14 07/11/16 21:15 1 APPLN Multivitamins/ Minerals (Multivitamin W/ Minerals Tab) 1 tab DAILY PO 07/11/16 09:00 08/10/16 08:59 07/14/16 07:38 1 TAB Pregabalin (Lyrica Cap) 150 mg TID PO 07/10/16 23:00 08/09/16 22:59 07/14/16 21:23 150 MG Pyridoxine HCl (Vitamin B-6 Tab) 200 mg DAILY PO 07/11/16 09:00 08/10/16 08:59 07/14/16 07:39 200 MG Tiotropium Mercedita (Spiriva Handihaler Inhaler) 1 puff DAILY INH 07/11/16 09:00 08/10/16 08:59 07/14/16 07:40 1 PUFF Verapamil HCl (Calan-Sr Tab) 240 mg DAILY PO 07/11/16 09:00 08/10/16 08:59 07/14/16 07:38 240 MG Cyanocobalamin (Vitamin B-12 Tab) 2,500 mcg DAILY PO 07/11/16 09:00 08/10/16 08:59 07/14/16 07:37 2,500 MCG Miscellaneous Information (Order Awaiting Action) 1 ea QS N/A 07/10/16 22:00 08/09/16 21:59 [id number] Acetate (Vitamin E Cap) 800 interunit DAILY PO 07/11/16 09:00 08/10/16 08:59 07/14/16 07:37 800 INTERUNIT Albuterol/ Ipratropium (Duoneb) 3 ml QIDR INH 07/11/16 08:00 08/10/16 07:59 07/15/16 07:41 3 ML Glucose (Glucose 40% Gel) 15-30 GRAMS 15 GRAMS... UD PRN PO 07/10/16 22:15 08/09/16 22:14 Glucose (Glucose Chew Tab) 4-8 Tablets 4 Tabl... UD PRN PO 07/10/16 22:15 08/09/16 22:14 Dextrose (Dextrose 50% 50ML Syringe) 25-50ML OF 50% DW IV FOR... UD PRN IV 07/10/16 22:15 08/09/16 22:14 Glucagon (Glucagon Inj) 1 mg UD PRN SQ 07/10/16 22:15 08/09/16 22:14 Vancomycin HCl (Consult) 1 ea UD PRN N/A 07/10/16 23:30 08/09/16 23:29 Miscellaneous Information (Consult Glycemic Management Pharmacy) 1 ea UD PRN N/A 07/11/16 00:30 08/10/16 00:29 Insulin Aspart (novoLOG ASPART) SLIDING SCALE ACHS SC 07/11/16 07:00 08/10/16 06:59 07/14/16 21:22 7 UNITS Prednisone (PredniSONE TAB) 15 mg QAM PO 07/12/16 09:00 08/11/16 08:59 07/14/16 07:39 15 MG Pantoprazole Sodium 40 mg 40 mg QAM PO 07/12/16 09:00 08/11/16 08:59 07/14/16 07:40 40 MG Furosemide/ Dextrose (Lasix Inj/D5W 500ml) 500 ml @ 40 mls/hr [id number] IV 07/11/16 15:00 08/13/16 14:59 07/15/16 06:45 40 MLS/HR Acetazolamide 250 mg 250 mg BID PO 07/12/16 21:00 08/13/16 20:59 07/14/16 21:16 250 MG Vancomycin HCl/ Sodium Chloride (Vancomycin Inj/ Nss 500ml) 532 ml @ 200 mls/hr Q24H IV 07/13/16 14:00 07/21/16 23:59 07/14/16 14:08 200 MLS/HR Potassium Chloride (Klor-Con Tab) 40 meq DAILY PO 07/14/16 09:00 08/13/16 08:59 07/14/16 08:59 40 MEQ Insulin Glargine (Lantus Vial) 70 unit BID SC 07/14/16 21:00 08/13/16 20:59 07/14/16 21:23 70 UNIT Impression (1) Cor pulmonale, chronic (2) Obesity hypoventilation syndrome (3) Abdominal wall cellulitis (4) Chronic kidney disease (CKD) stage G3b/A1, moderately decreased glomerular filtration rate (GFR) between 30-44 mL/min/1.73 square meter and albuminuria creatinine ratio less than 30 mg/g (5) Diabetes (6) Anasarca Recommendations -- continue lasix drip -- continue diamox for alkalosis, slightly improved -- will consider switching to IV Bumex and metolazone by tomorrow -- Cr stable, Baseline creatinine has been 1.7 - 2.0 --Advise patient to limit to of fluid intake to less than 2 liters -- Discussed the possibility of worsening kidney function in response to IV diuretics. Indications/benefits/risks/alternatives to vascular access placement and HD discussed in detail with the patient and her .They voiced understanding. Mrs. Gaytan is now agreeable to HD if her kidney function declines further.
--- NOTE | 2016-07-15 13:21 | Pharmacy Progress Note ---
Glycemic Control: Progress Nt Date of Service July 15, 2016. Scope Glycemic Pharmacist consulted by Dr Kong on 07/11/16 for glycemic control and to write orders per [facility] inpatient glycemic control protocol. Objective Accuchecks BSG (last 24hrs): Test 07/14/16 16:06 07/14/16 20:08 07/15/16 06:52 07/15/16 08:16 Bedside Glucose 258 mg/dl (70-90) 174 mg/dl (70-90) 239 mg/dl (70-90) Random Glucose 243 mg/dl (70-99) Test 07/15/16 11:57 Bedside Glucose 219 mg/dl (70-90) Laboratory Data (last 24hrs) Recent Pertinent Medications Outpatient Anti-diabetic Regimen: * Toujeo 70 units SQ BID * NovoLog * 50 units SQ with breakfast * 50 units SQ with lunch * 90 units SQ with dinner * 40 units SQ at bedtime * Ms Gaytan takes prednisone chronically at home * A1c = 6.3% 04/2016 The patient is currently receiving: * Basal insulin: Lantus 70 units every 12 hours * Correctional Insulin: Novolog Correction per scale ACHS Goal Range: Low 110 mg/dL - High 140 mg/dL Correction Factor: 5 mg/dL/unit * Prandial insulin: Per carb ratio of 1 unit per 2 grams CHO consumed Risk Factors for Insulin Resistance: * Infection * Volume overload --> leads to erratic insulin absorption * Diet: T2DM/Low Na, 1500mL volume Assessment & Plan ASSESSMENT: Initial: * Type 2 diabetic known from prior admissions and consults, the last being in May 2016 * A1c is WNL and shows adequate glycemic control as an outpatient with ~370 units of insulin per day * Large doses of insulin needed as an outpatient, however needs change when admitted * large doses required when on ATC steroids * Currently, BSGs are WNL * Transition Toujeo to Lantus as the former is not on formulary * Doses of insulin will be decreased initially and titrated based on response as inpatient needs usually vary compared to home regimen * NovoLog parameters based on historical data Current: * BSGs trending upwards secondary to reduced outpatient insulin doses with stress/infection & prednisone * Pt has been requiring minimum of 300+units/day which is yielding near- adequate control today. * Pt uses ~370units of insulin as an outpatient but typically requires slightly less than this in house most likely d/t controlled diabetic diet * AM fasting BSG slightly elevated at 239mg/dl --> will continue outpatient dosing of 70 units SQ BID but give a one time extra dose of 10 units * Post-prandial BSGs trend upwards throughout the day --> will tighten CR slightly. To prevent over dosing of NovoLog will loosen CF slightly. Pt ultimately needs 1 unit for every 1g CHO consumed independent of pre-meal BSG. If pre-meal BSG is elevated then she receives additional correctional insulin which may over dose patient when BSG significantly elevated. * Prednisone (on at home) * Current NovoLog parameters used previously with same dose of daily prednisone PLAN FOR INPATIENT GLYCEMIC CONTROL: Continue SQ basal bolus insulin regimen based on a total daily dose of ~ 300 units * Basal Insulin: * Lantus 70 units SQ BID * One time additional dose of 10 units SQ x 1 dose * Bolus Insulin: NovoLog SQ AC and HS * Loosen Correction factor: 10mg/dL/unit (was 5) * Tighten Carb ratio: 1 unit per 1 g of CHO consumed (was 1.5) * Goal range: 110-140mg/dL based on age and glycemic control as an outpatient * A1c - current * added to discharge instructions RECOMMENDATIONS FOR DISCHARGE: * Likely, Ms Gaytan can continue her home regimen at discharge. Continue to monitor steroid dose and adjust insulins accordingly. * Please note that the plan above was derived based on current level of insulin resistance and hospital stress. These recommendations are appropriate for inpatient admission only. Plan of care upon discharge will need to be reassessed to avoid potential outpatient hypo/hyperglycemia. Thank you.
[2016-07-15] MEDS ORDERED: VANCOMYCIN TROUGH ONE (13:30)
[2016-07-15] MEDS: VANCOMYCIN INJ 1,600 MG in SODIUM CHLORIDE 0.9% 500ML 500 ML IV SCH (13:50)
[2016-07-15] MEDS: ACETAMINOPHEN 325 MG TAB PO PRN (14:57)
--- NOTE | 2016-07-15 18:09 | Medical Student: [facility] ---
Med Student Progress Note Date of Service July 15, 2016. Subjective Pt evaluation today including: conversation w/ patient Voiding: no voiding problems Ms Hemalatha Gaytan is a morbidly obese 60 yo female with COPD, DM, HTN, HLD, and multiple comorbidities who on hospital day 6 with fluid overload and an abdominal wound. She notes great improvement since admission of her breathing, and is back to her baseline 3L O2 and is maintaining O2 saturations seated and with minimal exertion. She is currently on 40mg furosemide per hour IV and has been diuresing but not to the extent we would expect from that volume of diuretics. Prior to admission, she was taking bumex tid with progressive fluid retention. Upon digging into her history for medical compliance, she rarely misses a dose, because she takes on significant fluid when she does so. She also avoids prepackaged foods high in sodium, adds little condiment to her food , and uses no-sodium options in her cooking. She rarely eats out for meals. During our discussion today, she talked about her past decision not to have surgery for a herniated disc. Since that time she has gained weight, developed COPD, CHF, and now must "live with that decision." She tries to be active at home when possible, but is reliant on her for all ADLs such as dressing , bathing, cooking, and cleaning. She is able to do the laundry, but it takes her ~20 minutes to load the washer, requiring several breaks to catch her breath. Currently she is resting comfortably in a chair. She does not tolerate laying down. She has been up walking with PT with more ease as more fluid diureses. She denies n/v, constipation, diarrhea, urinary symptoms, lightheadedness, dizziness, or other symptoms. Review of Systems Constitutional: No problem reported Eyes: No problem reported ENT: No problem reported Respiratory: + dyspnea on exertion, + problem reported (3L O2 is baseline) Cardiac: + edema, + orthopnea Breast: No problem reported Abdomen: + problem reported (abdominal wound, improving) Musculoskeletal: + joint pain (back, chronic) Female : No problem reported Neurologic: No problem reported Psychiatric: No problem reported Heme: No problem reported Objective Vital Signs Date Time Temp Pulse Resp B/P Pulse Ox O2 Delivery O2 Flow Rate FiO2 07/15/16 16:18 92 07/15/16 15:55 91 Nasal Cannula 3.0 Humidified Oxygen 07/15/16 15:22 36.6 71 16 128/62 91 Nasal Cannula 3.0 07/15/16 15:06 82 16 92 Nasal Cannula 3.0 07/15/16 11:31 87 16 93 Nasal Cannula 3.0 07/15/16 09:05 82 108/67 07/15/16 07:57 36.4 84 16 135/71 93 Humidified Oxygen 3.0 07/15/16 07:41 83 16 93 Nasal Cannula 3.0 07/15/16 07:26 Nasal Cannula Humidified Oxygen 07/14/16 23:00 36.7 89 16 132/78 94 Nasal Cannula 3.0 07/14/16 20:00 Nasal Cannula 3.0 Humidified Oxygen 07/14/16 19:39 88 16 92 Nasal Cannula 3.0 07/14/16 19:05 Nasal Cannula 3.0 Humidified Oxygen 07/14/16 19:05 36.6 18 121/75 96 Nasal Cannula 3.0 Humidified Oxygen Physical Exam General Appearance: WD/WN, no apparent distress, + obese Eyes: bilateral eyes EOMI, bilateral eyes PERRL, bilateral eyes normal inspection ENT: normal ENT inspection, hearing grossly normal Neck: supple, no adenopathy, no JVD Respiratory/Chest: chest non-tender, no respiratory distress, no accessory muscle use, + decreased breath sounds Cardiovascular: regular rate, rhythm, no murmur, + pertinent finding (3+ persistent LE edema, no longer weeping) Abdomen: normal bowel sounds, + pertinent finding (small wound with minimal seorous drainage) Extremities: no calf tenderness, + pedal edema, + swelling 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: alert, normal mood/affect, oriented x 3 Skin: + mottled, + pertinent finding (some discoloration with venous stasis on b/l LE) Laboratory Results Last 24 Hours Test 07/14/16 20:08 07/15/16 06:52 07/15/16 08:16 07/15/16 11:57 Bedside Glucose 174 mg/dl 239 mg/dl 219 mg/dl Sodium Level 139 mmol/L Potassium Level 3.4 mmol/L Chloride Level 99 mmol/L Carbon Dioxide Level 36 mmol/L Anion Gap 4.0 mmol/L Blood Urea Nitrogen 30 mg/dl Creatinine 1.60 mg/dl Est Creatinine Clear Calc Drug Dose 54.1 ml/min Estimated GFR () 39.6 Estimated GFR (Non- 34.2 BUN/Creatinine Ratio 18.5 Random Glucose 243 mg/dl Calcium Level 8.0 mg/dl Phosphorus Level 2.7 mg/dl Magnesium Level 2.4 mg/dl Test 07/15/16 13:07 07/15/16 16:55 Vancomycin Level Trough 23.2 mcg/ml Bedside Glucose 252 mg/dl Assessment and Plan Assessment and Plan: Ms Hemalatha Gaytan is a morbidly obese 60 year old female with multiple comorbidities including COPD requiring 3L O2 at baseline, right and left sided heart failure, DM, CKD III, HLD, and HTN among others here for persistent lower extremity edema and an abdominal wound. Individual assessment and plan are as follows: 1. CHF: Chronic, combined systolic and diastolic dysfunction. Poor diastolic function likely cause of SOB due to fluid overload. Patient has been on furosemide drip 40mg per hour, with plans to switch to IV tomorrow and PO at discharge per nephro.40mEq Kcl replacement therapy daily. Continue on metoprolol 150mg qd. Fluid restrictions to 1500ml, with pt down ~7800ml since admission. 2. Abdominal wound: Small, ~1cm, round. Improving with less serous drainage today. Likely secondary to edema. Currently on day 6 vanc, will d/c on doxy. Wound care consulted and appreciated. 3. COPD: Chronic, improving with diuresis. Breathing without accessory muscle use or shortness of breath on 3L O2. Maintaining sats with minimal exertion. Currently on duonebs, will d/c on Spiriva and Advair for easier dosing. Currently on 15mg prednisone as outpatient too, likely now dependent, but could also lead to fluid retention. 4. Respiratory acidosis: Likely due to being on oxygen and compensation for contraction alkalosis. Continue on acetazolemide 250mg BID. 5. CKD: Stage III. Creatinine baseline ~2, most recently 1.6. Nephrology consulted for kidney failure and diuresis. 6. Chronic Edema: Secondary to venous insufficiency, poor kidney function. Associated venous stasis ulcers and discoloration. Wound care has been consulted. 7. HTN: BP currently well controlled on 150mg metoprolol and 240 verapamil. Will consider changing verapamil to other agent if patient becomes further refractory to diuretics. 8. DM: Chronic, insulin dependent. Lantus 40 units BID plus sliding scale novalog. 9. Back Pain: Takes Lyrica. No change. 10. Gout: Chronic, due to hernated disc. takes 100mg allopurinol qd 11. DVT prophylaxis: Heparin 5000 units 12. Disposition: Continued admission on med/surg due to need for continued IV furosemide. Low sodium diet with fluid restrictions at 1500ml daily. Goal for d/ c on prior to lymphedema appointment. Continued [facility] stay due to: multiple IV medications needed Discharge planning: home
[2016-07-16] VITALS (9 sets, daily range): BP systolic 97–144; BP diastolic 60–77; PULSE 71–92; TEMP 36.6; O2SAT 92–97
[2016-07-16] MEDS: HEPARIN SOD 5000 UNIT/0.5 ML CARP SQ SCH ×3 (06:04→21:39)
--- NOTE | 2016-07-16 07:21 | Family Medicine Progress Note ---
Progress Note Date of Service July 16, 2016. Subjective Pt evaluation today including: conversation w/ patient, physical exam, chart review, lab review Patient sitting up in chair. Denies acute issues overnight. She claims continued improvement in breathing, even with ambulation. She denies CP, palpitations, lightheadedness. She states her wound in her abdomen and both of her legs are improving also, and there are still twice daily dressing changes occurring in hospital. She is otherwise tolerating diet and sleeping without issue. Constitutional: No chills, No fever Respiratory: + dyspnea on exertion, No cough, No shortness of breath, No wheezing Cardiovascular: + edema, + orthopnea, No PND, No chest pain, No palpitations Abdomen: No diarrhea, No nausea, No pain, No vomiting Female : No dysuria, No hematuria Objective Vital Signs Date Time Temp Pulse Resp B/P Pulse Ox O2 Delivery O2 Flow Rate FiO2 07/15/16 23:55 Nasal Cannula 3.0 07/15/16 23:11 36.6 81 16 132/73 93 Nasal Cannula 3.0 07/15/16 20:01 89 16 93 Nasal Cannula 3.0 07/15/16 16:18 92 07/15/16 15:55 91 Nasal Cannula 3.0 Humidified Oxygen 07/15/16 15:22 36.6 71 16 128/62 91 Nasal Cannula 3.0 07/15/16 15:06 82 16 92 Nasal Cannula 3.0 07/15/16 11:31 87 16 93 Nasal Cannula 3.0 07/15/16 09:05 82 108/67 07/15/16 07:57 36.4 84 16 135/71 93 Humidified Oxygen 3.0 07/15/16 07:41 83 16 93 Nasal Cannula 3.0 07/15/16 07:26 Nasal Cannula Humidified Oxygen Physical Exam General Appearance: WD/WN, no apparent distress, + obese ENT: hearing grossly normal Respiratory/Chest: lungs clear, normal breath sounds, no respiratory distress, no accessory muscle use Cardiovascular: regular rate, rhythm, no murmur Abdomen: normal bowel sounds, non tender, soft, + pertinent finding (Right sided abdominal wound below panus, erythema improved.) Extremities: + pedal edema, + swelling (bilateral lower legs) 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: alert, normal mood/affect, oriented x 3 Skin: + pertinent finding (Evidence of chronic venous insufficiency. Erythema improved.) Laboratory Results Results Past 24 Hours Test 07/15/16 20:43 07/16/16 07:24 07/16/16 08:03 07/16/16 11:55 Range/Units Bedside Glucose 210 229 162 70-90 mg/dl White Blood Count 7.76 4.8-10.8 K/uL Red Blood Count 3.32 4.2-5.4 M/uL Hemoglobin 10.0 12.0-16.0 g/dL Hematocrit 33.2 37-47 % Mean Corpuscular Volume 100.0 80-100 fL Mean Corpuscular Hemoglobin 30.1 25-34 pg Mean Corpuscular Hemoglobin Concent 30.1 32-36 g/dl RDW Standard Deviation 69.1 36.4-46.3 fL RDW Coefficient of Variation 19.1 11.5-14.5 % Platelet Count 258 130-400 K/uL Mean Platelet Volume 9.6 7.4-10.4 fL Nucleated RBC Absolute Count (auto) 0.18 0-0 K/uL Nucleated Red Blood Cells % 2.4 % Sodium Level 138 136-145 mmol/L Potassium Level 3.6 3.5-5.1 mmol/L Chloride Level 97 98-107 mmol/L Carbon Dioxide Level 35 21-32 mmol/L Anion Gap 6.0 3-11 mmol/L Blood Urea Nitrogen 34 7-18 mg/dl Creatinine 1.80 0.60-1.20 mg/dl Est Creatinine Clear Calc Drug Dose 47.6 ml/min Estimated GFR () 34.4 Estimated GFR (Non- 29.6 BUN/Creatinine Ratio 19.1 10-20 Random Glucose 229 70-99 mg/dl Calcium Level 8.5 8.5-10.1 mg/dl Test 07/16/16 17:45 Range/Units Bedside Glucose 159 70-90 mg/dl Assessment and Plan 60 year old female with cor pulmonale and heart failure, COPD and chronic hypoxic respiratory failure requiring 3L O2 baseline at home, DM, CKD III, morbid obesity, HLD, and chronic venous insufficiency admitted with progressive SOB and seeping abdominal wound. Acute on chronic combined diastolic and right sided systolic heart failure (Cor pulmonale) - Likely cause of SOB. BNP 296. Trop negative. CXR on 07/11 shows pulm vasc congestion. Last echo 07/25/15: Hyperdynamic LV systolic function. Mild concentric LV hypertrophy. LV diastolic dysfunction. Mild RV dilatation and systolic dysfunction. Mild tricuspid regurgitation. Mildly elevated RV systolic pressure. Normal central venous pressure. 25lbs gained since last admission. Nephrology consulted - recs appreciated. Patient undergoing aggressive diuresis with Lasix drip initially and was tolerating it well. Switched to PO medications - Bumex 4mg TID + Metolazone 5mg daily + Diamox 250mg BID - Metoprolol 150mg daily - KCl replacement as necessary - 40mEq daily - I/O: -10.1 L this hospitalization thus far - Daily weights, strict I/O's, low salt diet, fluid restricted to 1500ml daily Abdominal cellulitis/wound - Serous seepage, no purulent discharge, likely extravasated fluid from edematous soft tissue. ID and wound care consulted - recs appreciated. Wound cultured coag negative staph. Discontinued empiric Zosyn after 2 days. Blood cultures negative. 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 Delong - Pending outpatient tests can be ordered once acute issues dealt with: CBC w/ diff, CMP, immunofixation - 24 hr urine, immunonfixation - serum, kappa/Lambda light chains - free w/ ratio - serum, protein electrophoresis panel -24 hr urine , serum protein electrophoresis, metastatic skeletal survey (PET and bone scan) - These tests done now during aggressive diuresis may skew results CKD III - Creatinine 1.7-2.0 at baseline. Anticipating changes with aggressive diuresis. Nephrology consulted - recs appreciated - Cr 1.8 this morning - Patient agreeable to potential HD if creatinine worsens - Monitor via BMP Chronic venous insufficiency - bilateral, chronic without recent change, not likely to be Cellulitis. Wound Care consulted- recs appreciated - Keep legs elevated - Ongoing dressing changes HTN - BP in adequate range - Metoprolol 150mg daily + Verapamil 240mg daily DM - last HbA1c 6.3 on 05/20/16 - Lantus 40 units BID + ISS - Accu check ac/hs Hypophosphatemia - Resolved. 2.2 on 07/13. Unable to obtain IV access, thus supplemented with 2 tabs of Phospha 220 Neutral. Phosphate now WNL Gout - asymptomatic - Allopurinol 100mg daily Chronic pain - Pregabalin VTE prophylaxis - Heparin SQ Code Status - Do not resuscitate Resident Physician Supervision Note: I interviewed and examined the patient. Discussed with Dr. Laughlin and agree with findings and plan as documented in the note. Any exceptions or clarifications are listed here: None Documented By: Michael Lockhart feeling better walking aroudn better still making good amounts of urine on oral diuretics ros otherwise negative except for as above vitals noted nad breathing unlabored no pallor or icterus cor pulmonale w acute decompensation and CKD -ongoing diuresis - improving cellulitis - abx, improving hopefully home tomorrow Continued [facility] stay due to: other (Trial PO medications) Discharge planning: home Resident Tracking Resident Involvement: Resident Care Provided Care Provided: Adult Hospital Medicine
[2016-07-16] MEDS: ALBUT/IPRATROP 3MG/0.5MG NEB 3 ML VIAL INH SCH ×4 (07:23→19:35)
[2016-07-16] MEDS: FUROSEMIDE IV SCH (07:28)
[2016-07-16] MEDS: DEXTROSE 5% IV SCH (07:28)
[2016-07-16 07:36] LABS: HEMATOCRIT 33.2 % (37-47); MEAN CORPUSCULAR HEMOGLOBIN 30.1 pg (25-34); MEAN CORPUSCULAR HGB CONC 30.1 g/dl (32-36); MEAN PLATELET VOLUME 9.6 fL (7.4-10.4); PLATELET COUNT 258 K/uL (130-400); RED BLOOD COUNT 3.32 M/uL (4.2-5.4); WHITE BLOOD COUNT 7.76 K/uL (4.8-10.8)
[2016-07-16 08:05] LABS: BUN/CREATININE RATIO 19.1 (10-20); CREATININE 1.8 mg/dl (0.60-1.20); POTASSIUM 3.6 mmol/L (3.5-5.1)
[2016-07-16 08:33] LABS: CALCIUM 8.5 mg/dl (8.5-10.1)
[2016-07-16] MEDS: FLUTICASONE/SALMETEROL (ADVAIR) 500/50 INH 14 PUFF INH SCH ×2 (09:15→20:37)
[2016-07-16] MEDS: METOPROLOL SUCC 50MG EXT REL TAB PO SCH (09:16)
[2016-07-16] MEDS: POTASSIUM CHLORIDE 20 MEQ TABCR PO SCH (09:17)
[2016-07-16] MEDS: CHOLECALCIFEROL 1000 INTER.UNIT TAB PO SCH (09:17)
[2016-07-16] MEDS: VERAPAMIL HCL 240 MG TABCR PO SCH (09:17)
[2016-07-16] MEDS: PYRIDOXINE HCL 50 MG TAB PO SCH (09:18)
[2016-07-16] MEDS: ATORVASTATIN 20 MG TAB PO SCH (09:18)
[2016-07-16] MEDS: CEROVITE ADV FORMULA TAB PO SCH (09:18)
[2016-07-16] MEDS: TOCOPHERYL, DL-ALPHA 400 INTER.UNIT CAP PO SCH (09:19)
[2016-07-16] MEDS: PANTOprazole SOD 40 MG TAB PO SCH (09:19)
[2016-07-16] MEDS: AcetaZOLAMIDE 250 MG TAB PO SCH ×2 (09:20→20:38)
[2016-07-16] MEDS: PREGABALIN 150 MG CAP PO SCH ×3 (09:20→20:40)
[2016-07-16] MEDS: CYANOCOBALAMIN 2,500 MCG SUBL TAB PO SCH (09:20)
[2016-07-16] MEDS: ALLOPURINOL 100 MG TAB PO SCH (09:21)
[2016-07-16] MEDS: INSULIN ASPART 100 UNITS/ML 3 ML PEN SC SCH ×4 (09:32→20:46)
[2016-07-16] MEDS: INSULIN GLARGINE SC SCH (09:33)
[2016-07-16] MEDS: METOLAZONE 5 MG TAB PO SCH (09:34)
[2016-07-16] MEDS: BUMETANIDE 1 MG TAB PO SCH ×3 (09:34→20:37)
[2016-07-16] MEDS: TIOTROPIUM BROMIDE 5 PUFF/90 MCG INH INH SCH (11:22)
--- NOTE | 2016-07-16 11:50 | Nephrology Progress Note ---
Nephrology Progress Note Date of Service July 16, 2016. Chief Complaint Follow-up for chronic kidney disease and diuretic resistant volume overload. Subjective Jazmin was seen and examined in her room this morning. She has been otherwise doing well. Continues to have decent urine output and responding to diuretics drip. Renal function Slightly worsened to creatinine 1.8. urine output 3 liters, net negative . Blood pressure stable. Review of Systems A complete review of systems was performed. Pertinent positives are noted above. All other systems are negative. Vital Signs Last 8 Hrs Date Time Temp Pulse Resp B/P Pulse Ox O2 Delivery O2 Flow Rate FiO2 07/16/16 08:19 93 Nasal Cannula 3.0 07/16/16 07:46 36.6 71 17 130/70 93 Nasal Cannula 3.0 07/16/16 07:24 85 16 94 Nasal Cannula 3.0 I & O 24-Hour Column 07/16/16 08:00 Intake Total 1530 ml Output Total 4475 ml Balance -2945 ml Last Recorded Weight Weight (Kilograms): 150.400 Physical Exam GENERAL: Middle-aged female, morbidly obese, AAA x 3, pleasant,, not in any distress. NECK: Supple, no JVD. RESPIRATORY: Normal breathing efforts, no accessory muscle use, clear to auscultation bilaterally, no wheezes or rales. CARDIOVASCULAR: S1, S2 normal, rate rhythm regular. EXTREMITY: 3 + bilateral lower extremity edema, with weeping bullae, currently wrapped in dressing NEURO: speech fluent. PSYCHIATRY: Normal mood and judgment. Family History Cancer Diabetes mellitus Gallbladder disease Heart disease Lung disease Negative for CKD / ESRD Social History Smoking Status: Former smoker Drug Use: none Marital Status: Housing Status: lives with family Occupation: unemployed . Lives w/ . Remote h/o tobacco use Laboratory Results Past 24 Hours 07/16/16 07:24 07/16/16 07:24 Test 07/15/16 11:57 07/15/16 13:07 07/15/16 16:55 07/15/16 20:43 Bedside Glucose 219 mg/dl (70-90) 252 mg/dl (70-90) 210 mg/dl (70-90) Vancomycin Level Trough 23.2 mcg/ml (SEE COMMENT) Test 07/16/16 07:24 07/16/16 08:03 Red Blood Count 3.32 M/uL (4.2-5.4) Mean Corpuscular Volume 100.0 fL (80-100) Mean Corpuscular Hemoglobin 30.1 pg (25-34) Mean Corpuscular Hemoglobin Concent 30.1 g/dl (32-36) RDW Standard Deviation 69.1 fL (36.4-46.3) RDW Coefficient of Variation 19.1 % (11.5-14.5) Mean Platelet Volume 9.6 fL (7.4-10.4) Nucleated RBC Absolute Count (auto) 0.18 K/uL (0-0) Nucleated Red Blood Cells % 2.4 % Anion Gap 6.0 mmol/L (3-11) Est Creatinine Clear Calc Drug Dose 47.6 ml/min Estimated GFR () 34.4 Estimated GFR (Non- 29.6 BUN/Creatinine Ratio 19.1 (10-20) Calcium Level 8.5 mg/dl (8.5-10.1) Bedside Glucose 229 mg/dl (70-90) Allergies Coded Allergies: Daptomycin (Verified Allergy, Mild, HIVES, 06/14/16) itching Codeine (Verified Allergy, Unknown, unknown, 06/14/16) has tolerated morphine Iodine (Verified Allergy, Unknown, 06/14/16) Shellfish (Verified Allergy, Unknown, 06/14/16) Sulfamethoxazole w/Trimethoprim (Verified Allergy, Unknown, RASH, 06/14/16) Medications Current Inpatient Medications Medications (Trade) Dose Ordered Sig/Duyen Route Start Time Stop Time Status Last Admin Dose Admin Heparin Sodium (Porcine) (Heparin Sq 5000 Unit/0.5ml) 5,000 unit Q8 SQ 07/10/16 22:00 08/09/16 21:59 07/16/16 06:04 5,000 UNIT Acetaminophen (Tylenol Tab) 650 mg Q4H PRN PO 07/10/16 20:30 08/09/16 20:29 07/15/16 14:57 650 MG Nitroglycerin (Nitrostat Tab) 0.4 mg UD PRN SL 07/10/16 20:30 08/09/16 20:29 Allopurinol (Zyloprim Tab) 100 mg DAILY PO 07/11/16 09:00 08/10/16 08:59 07/16/16 09:21 100 MG Atorvastatin Calcium (Lipitor Tab) 40 mg DAILY PO 07/11/16 09:00 08/10/16 08:59 07/16/16 09:18 40 MG Cholecalciferol (Vitamin D Tab) 2,000 inter.unit DAILY PO 07/11/16 09:00 08/10/16 08:59 07/16/16 09:17 2,000 INTER.UNIT Salmeterol Xinafoate/ Fluticasone (Advair Diskus 500/50 Inh) 1 puff BID INH 07/11/16 09:00 08/10/16 08:59 07/16/16 09:15 1 PUFF Metoprolol Succinate (Toprol Xl Tab) 150 mg DAILY PO 07/11/16 09:00 08/10/16 08:59 07/16/16 09:16 150 MG Miconazole Nitrate (Desenex Powder) 1 appln PRN PRN EXT 07/10/16 21:15 08/09/16 21:14 07/11/16 21:15 1 APPLN Multivitamins/ Minerals (Multivitamin W/ Minerals Tab) 1 tab DAILY PO 07/11/16 09:00 08/10/16 08:59 07/16/16 09:18 1 TAB Pregabalin (Lyrica Cap) 150 mg TID PO 07/10/16 23:00 08/09/16 22:59 07/16/16 09:20 150 MG Pyridoxine HCl (Vitamin B-6 Tab) 200 mg DAILY PO 07/11/16 09:00 08/10/16 08:59 07/16/16 09:18 200 MG Tiotropium [place] (Spiriva Handihaler Inhaler) 1 puff DAILY INH 07/11/16 09:00 08/10/16 08:59 07/16/16 11:22 1 PUFF Verapamil HCl (Calan-Sr Tab) 240 mg DAILY PO 07/11/16 09:00 08/10/16 08:59 07/16/16 09:17 240 MG Cyanocobalamin (Vitamin B-12 Tab) 2,500 mcg DAILY PO 07/11/16 09:00 08/10/16 08:59 07/16/16 09:20 2,500 MCG Miscellaneous Information (Order Awaiting Action) 1 ea QS N/A 07/10/16 22:00 08/09/16 21:59 [id number] Acetate (Vitamin E Cap) 800 interunit DAILY PO 07/11/16 09:00 08/10/16 08:59 07/16/16 09:19 800 INTERUNIT Albuterol/ Ipratropium (Duoneb) 3 ml QIDR INH 07/11/16 08:00 08/10/16 07:59 07/16/16 07:23 3 ML Glucose (Glucose 40% Gel) 15-30 GRAMS 15 GRAMS... UD PRN PO 07/10/16 22:15 08/09/16 22:14 Glucose (Glucose Chew Tab) 4-8 Tablets 4 Tabl... UD PRN PO 07/10/16 22:15 08/09/16 22:14 Dextrose (Dextrose 50% 50ML Syringe) 25-50ML OF 50% DW IV FOR... UD PRN IV 07/10/16 22:15 08/09/16 22:14 Glucagon (Glucagon Inj) 1 mg UD PRN SQ 07/10/16 22:15 08/09/16 22:14 Vancomycin HCl (Consult) 1 ea UD PRN N/A 07/10/16 23:30 08/09/16 23:29 Miscellaneous Information (Consult Glycemic Management Pharmacy) 1 ea UD PRN N/A 07/11/16 00:30 08/10/16 00:29 Insulin Aspart (novoLOG ASPART) SLIDING SCALE ACHS SC 07/11/16 07:00 08/10/16 06:59 07/16/16 09:32 60 UNITS Prednisone (PredniSONE TAB) 15 mg QAM PO 07/12/16 09:00 08/11/16 08:59 07/16/16 09:19 15 MG Pantoprazole Sodium (Protonix Tab) 40 mg QAM PO 07/12/16 09:00 08/11/16 08:59 07/16/16 09:19 40 MG Acetazolamide (Diamox Tab) 250 mg BID PO 07/12/16 21:00 08/13/16 20:59 07/16/16 09:20 250 MG Potassium Chloride 40 meq 40 meq DAILY PO 07/14/16 09:00 08/13/16 08:59 07/16/16 09:17 40 MEQ Vancomycin HCl/ Sodium Chloride (Vancomycin Inj/ Nss 500ml) 528 ml @ 200 mls/hr DAILY@1800 IV 07/16/16 18:00 07/26/16 17:59 Bumetanide (Bumex Tab) 4 mg TID PO 07/16/16 09:00 08/15/16 08:59 07/16/16 09:34 4 MG Metolazone (Zaroxolyn Tab) 5 mg QAM PO 07/16/16 09:00 08/15/16 08:59 07/16/16 09:34 5 MG Insulin Glargine (Lantus Vial) 80 unit BID SC 07/16/16 21:00 08/15/16 20:59 Impression (1) Cor pulmonale, chronic (2) Obesity hypoventilation syndrome (3) Abdominal wall cellulitis (4) Chronic kidney disease (CKD) stage G3b/A1, moderately decreased glomerular filtration rate (GFR) between 30-44 mL/min/1.73 square meter and albuminuria creatinine ratio less than 30 mg/g (5) Diabetes (6) Anasarca Recommendations -- discontinue Lasix drip, start on Bumex 4 milligram 3 times a day and metolazone 5 milligram daily. -- continue diamox for alkalosis, slightly improved -- Cr slightly worsen, Baseline creatinine has been 1.7 - 2.0 --limit to of fluid intake to less than 2 liters and salt intake to less than 2 grams per day -- Discussed the possibility of worsening kidney function in response to IV diuretics. Indications/benefits/risks/alternatives to vascular access placement and HD discussed in detail with the patient and her .They voiced understanding. Mrs. Gaytan is now agreeable to HD if her kidney function declines further.
--- NOTE | 2016-07-16 14:06 | Pharmacy Progress Note ---
Glycemic Control: Progress Nt Date of Service July 16, 2016. Scope Glycemic Pharmacist consulted by Dr Overton on 07/11/16 for glycemic control and to write orders per [facility] inpatient glycemic control protocol. Objective Accuchecks BSG (last 24hrs): Test 07/15/16 16:55 07/15/16 20:43 07/16/16 07:24 07/16/16 08:03 Bedside Glucose 252 mg/dl (70-90) 210 mg/dl (70-90) 229 mg/dl (70-90) Random Glucose 229 mg/dl (70-99) Test 07/16/16 11:55 Bedside Glucose 162 mg/dl (70-90) Laboratory Data (last 24hrs) Test 07/16/16 07:24 Anion Gap 6.0 mmol/L BUN/Creatinine Ratio 19.1 Blood Urea Nitrogen 34 mg/dl Creatinine 1.80 mg/dl Potassium Level 3.6 mmol/L Sodium Level 138 mmol/L White Blood Count 7.76 K/uL Recent Pertinent Medications Outpatient Anti-diabetic Regimen: * Tuojeo 70 units BID plus Novolog 50 with breakfast/50 with lunch/90 with dinner/40 with bedtime * A1c = 6.3 % 05/20/16 The patient is currently receiving: * Basal insulin: Lantus 70 units every 12 hours * Correctional Insulin: Novolog Correction per scale ACHS Goal Range: Low 110 mg/dL - High 140 mg/dL Correction Factor: 10 mg/dL/unit * Prandial insulin: Per carb ratio of 1 unit per 1 grams CHO consumed Risk Factors for Insulin Resistance: * Steroids: prednisone 15 mg PO daily (home dose) * Infection: cellulitis not on antibiotics * IVF: Lasix gtt (d/c'ed today) * Diet: type 2 diet Assessment & Plan ASSESSMENT: * ADA & AACE recommend a goal blood sugar range 140-180 mg/dl for the majority of critically ill & non-critically ill patients. However, more stringent targets may be selected in individual cases. Will utilize more stringent goal of 110-140mg/dl based on patient age & comorbidities. Additionally, tighter glycemic control is warranted to facilitate wound/infection healing. * Ms Gaytan is a 60 y/O F well known to the glycemic service admitted for cellulitis. She has remained stable on Lantus 70 units BID and Novolog with correction factor of 5 and carbohydrate of 2. This has produced reasonable control until several days ago when the patient remained above 200 for the entire day. I believe that the Lasix gtt (mixed in dextrose) contributed to this. The patient is very insulin resistant so the dextrose from this infusion could have elevated her blood sugars significantly. Now this has been discontinued. * Her correction factor was decreased from 10 to 8 this morning and produced a nice decrease from 229 mg/dL to 162 mg/dL. It is still reasonable to continue this carbohydrate ratio as she is insulin resistant and I believe that this is essential for her. She most likely needs her carbohydrates covered with a less aggressive correction factor. PLAN FOR INPATIENT GLYCEMIC CONTROL: * Continuing Lantus 70 units SQ BID * TIGHTENING correction factor to 8 mg/dl/unit * CONTINUING carb ratio of 1 unit per 1 grams CHO consumed * Continuing goal range of Low 110 mg/dL - High 140 mg/dL RECOMMENDATIONS FOR DISCHARGE: * Patient has excellent control at home so continuing home medications is reasonable. * Please note that the plan above was derived based on current level of insulin resistance and hospital stress. These recommendations are appropriate for inpatient admission only. Plan of care upon discharge will need to be reassessed to avoid potential outpatient hypo/hyperglycemia. Thank you.
--- NOTE | 2016-07-16 17:13 | Medical Student: [facility] ---
Med Student Progress Note Date of Service July 16, 2016. Subjective Pt evaluation today including: conversation w/ patient Voiding: no voiding problems, no incontinence Ms Hemalatha Gaytan is a morbidly obese 60 yo female with COPD, DM, HTN, HLD, and multiple comorbidities who on hospital day 7 with fluid overload and an abdominal wound. She continues to note improvement since admission of her breathing, and is back to her baseline 3L O2 and is maintaining O2 saturations seated and with minimal exertion. She notes that her mobility is superior to weeks prior to admission. She was switched to po furosemide today per nephro, and she continues to diurese well. We also discussed propping her feet up throughout the day, but it appears that unless she can recline slightly, she becomes uncomfortable due to the size of her pannus. She denies lightheadedness , dizziness, nausea/vomiting, shortness of breath, chest pain, constipation, diarrhea, or changes in bladder function. Review of Systems Constitutional: + see HPI Eyes: No problem reported ENT: No problem reported Respiratory: + dyspnea on exertion (baseline) Cardiac: + edema, + orthopnea Abdomen: + problem reported (rash/wound improving) Musculoskeletal: + joint pain (back pain, chronic) Female : No problem reported Neurologic: No problem reported Psychiatric: No problem reported Heme: No problem reported Skin: + color change (venous stasis changes) Objective Vital Signs Date Time Temp Pulse Resp B/P Pulse Ox O2 Delivery O2 Flow Rate FiO2 07/16/16 15:42 36.6 88 16 97/60 92 Humidified Oxygen 3.0 07/16/16 15:14 82 16 94 Nasal Cannula 3.0 07/16/16 08:19 93 Nasal Cannula 3.0 07/16/16 07:46 36.6 71 17 130/70 93 Nasal Cannula 3.0 07/16/16 07:30 94 Nasal Cannula 3.0 Humidified Oxygen 07/16/16 07:24 85 16 94 Nasal Cannula 3.0 07/15/16 23:55 Nasal Cannula 3.0 07/15/16 23:11 36.6 81 16 132/73 93 Nasal Cannula 3.0 07/15/16 20:01 89 16 93 Nasal Cannula 3.0 Physical Exam General Appearance: WD/WN, no apparent distress, + obese Eyes: bilateral eyes EOMI, bilateral eyes PERRL, bilateral eyes normal inspection ENT: normal ENT inspection, hearing grossly normal, pharynx normal Neck: supple, no adenopathy, no JVD, no carotid bruits, trachea midline Respiratory/Chest: chest non-tender, no respiratory distress, no accessory muscle use, + decreased breath sounds Cardiovascular: regular rate, rhythm, no murmur, + pertinent finding (venous stasis changes and 3+ pitting edema to just below knees bilaterally) Abdomen: normal bowel sounds, + pertinent finding (obese, wound below panus dressed) Extremities: + pedal edema 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: alert, normal mood/affect, oriented x 3 Laboratory Results Last 24 Hours Test 07/15/16 20:43 07/16/16 07:24 07/16/16 08:03 07/16/16 11:55 Bedside Glucose 210 mg/dl 229 mg/dl 162 mg/dl White Blood Count 7.76 K/uL Red Blood Count 3.32 M/uL Hemoglobin 10.0 g/dL Hematocrit 33.2 % Mean Corpuscular Volume 100.0 fL Mean Corpuscular Hemoglobin 30.1 pg Mean Corpuscular Hemoglobin Concent 30.1 g/dl RDW Standard Deviation 69.1 fL RDW Coefficient of Variation 19.1 % Platelet Count 258 K/uL Mean Platelet Volume 9.6 fL Nucleated RBC Absolute Count (auto) 0.18 K/uL Nucleated Red Blood Cells % 2.4 % Sodium Level 138 mmol/L Potassium Level 3.6 mmol/L Chloride Level 97 mmol/L Carbon Dioxide Level 35 mmol/L Anion Gap 6.0 mmol/L Blood Urea Nitrogen 34 mg/dl Creatinine 1.80 mg/dl Est Creatinine Clear Calc Drug Dose 47.6 ml/min Estimated GFR () 34.4 Estimated GFR (Non- 29.6 BUN/Creatinine Ratio 19.1 Random Glucose 229 mg/dl Calcium Level 8.5 mg/dl Assessment and Plan Assessment and Plan: Ms Hemalatha Gaytan is a morbidly obese 60 year old female with multiple comorbidities including COPD requiring 3L O2 at baseline, right and left sided heart failure, DM, CKD III, HLD, and HTN among others here for persistent lower extremity edema and an abdominal wound on hospital day 7. Individual assessment and plan are as follows: 1. CHF: Chronic, combined systolic and diastolic dysfunction. Poor diastolic function likely cause of SOB due to fluid overload. Patient has been switched to PO furosemide, tolerating diuresis well. 40mEq Kcl replacement therapy daily. Continue on metoprolol 150mg qd. Fluid restrictions to 1500ml, with pt down ~[id number] since admission. 2. Abdominal wound: Small, ~1cm, round. Improving with less serous drainage today. Likely secondary to edema.Planned d/c on doxycycline. Wound care consulted and appreciated. 3. COPD: Chronic, improving with diuresis. Breathing without accessory muscle use or shortness of breath on 3L O2. Maintaining sats with minimal exertion. Currently on duonebs, will d/c on Spiriva and Advair for easier dosing. Currently on 15mg prednisone as outpatient too x 6-7 months, likely now dependent, but could also lead to fluid retention. 4. Respiratory acidosis: Likely due to being on oxygen and compensation for contraction alkalosis. Continue on acetazolemide 250mg BID. 5. CKD: Stage III. Creatinine baseline ~2, most recently 1.6. Nephrology consulted for kidney failure and diuresis. 6. Chronic Edema: Secondary to venous insufficiency, poor kidney function. Associated venous stasis ulcers and discoloration. Wound care has been consulted. Continue to weep. Home bandage instructions will be necessary. 7. HTN: BP currently well controlled on 150mg metoprolol and 240 verapamil. Will consider changing verapamil to other agent if patient becomes further refractory to diuretics. 8. DM: Chronic, insulin dependent. Lantus 40 units BID plus sliding scale novalog. Sugars have been well controlled in hospital. 9. Back Pain: Takes Lyrica. No change. 10. Gout: Chronic, due to hernated disc. takes 100mg allopurinol qd 11. DVT prophylaxis: Heparin 5000 units 12. Disposition: Plan for d/c tomorrow morning with continued diuresis via po furosemide. Encouraged lifting legs as much as possible. Low sodium diet with fluid restrictions at 1500ml daily. Continued [facility] stay due to: ambulation difficulties, other (testing po diuretics with expected discharge tomorrow AM) Discharge planning: home
[2016-07-16] MEDS ORDERED: VANCOMYCIN INJ 1,400 MG in SODIUM CHLORIDE 0.9% 500ML 500 ML IV SCH (18:00)
[2016-07-16] MEDS ORDERED: INSULIN GLARGINE SC SCH ×3 (21:00)
[2016-07-17] VITALS (8 sets, daily range): BP systolic 105–131; BP diastolic 66–74; PULSE 78–92; TEMP 36.7; O2SAT 94–95
[2016-07-17] MEDS: HEPARIN SOD 5000 UNIT/0.5 ML CARP SQ SCH ×2 (06:02→13:57)
[2016-07-17 07:15] LABS: HEMATOCRIT 34.5 % (37-47); MEAN CELL VOLUME 100.6 fL (80-100); MEAN CORPUSCULAR HEMOGLOBIN 30.9 pg (25-34); MEAN CORPUSCULAR HGB CONC 30.7 g/dl (32-36); MEAN PLATELET VOLUME 9.7 fL (7.4-10.4); PLATELET COUNT 286 K/uL (130-400); RED BLOOD COUNT 3.43 M/uL (4.2-5.4); WHITE BLOOD COUNT 8.78 K/uL (4.8-10.8)
[2016-07-17] MEDS: ALBUT/IPRATROP 3MG/0.5MG NEB 3 ML VIAL INH SCH ×4 (07:27→15:46)
[2016-07-17 07:50] LABS: BUN/CREATININE RATIO 21.9 (10-20); CALCIUM 9.3 mg/dl (8.5-10.1); CREATININE 1.9 mg/dl (0.60-1.20); POTASSIUM 3.5 mmol/L (3.5-5.1)
[2016-07-17] MEDS: FLUTICASONE/SALMETEROL (ADVAIR) 500/50 INH 14 PUFF INH SCH (08:16)
[2016-07-17] MEDS: TIOTROPIUM BROMIDE 5 PUFF/90 MCG INH INH SCH (08:16)
[2016-07-17] MEDS: METOLAZONE 5 MG TAB PO SCH (08:19)
[2016-07-17] MEDS: PREGABALIN 150 MG CAP PO SCH ×2 (08:19→13:56)
[2016-07-17] MEDS: PYRIDOXINE HCL 50 MG TAB PO SCH (08:20)
[2016-07-17] MEDS: CYANOCOBALAMIN 2,500 MCG SUBL TAB PO SCH (08:20)
[2016-07-17] MEDS: ATORVASTATIN 20 MG TAB PO SCH (08:21)
[2016-07-17] MEDS: ALLOPURINOL 100 MG TAB PO SCH (08:21)
[2016-07-17] MEDS: CEROVITE ADV FORMULA TAB PO SCH (08:22)
[2016-07-17] MEDS: VERAPAMIL HCL 240 MG TABCR PO SCH (08:23)
[2016-07-17] MEDS: TOCOPHERYL, DL-ALPHA 400 INTER.UNIT CAP PO SCH (08:24)
[2016-07-17] MEDS: CHOLECALCIFEROL 1000 INTER.UNIT TAB PO SCH (08:24)
[2016-07-17] MEDS: POTASSIUM CHLORIDE 20 MEQ TABCR PO SCH (08:24)
[2016-07-17] MEDS: PANTOprazole SOD 40 MG TAB PO SCH (08:25)
[2016-07-17] MEDS ORDERED: INSULIN GLARGINE SC SCH ×2 (09:00)
[2016-07-17] MEDS: BUMETANIDE 1 MG TAB PO SCH ×2 (09:29→13:57)
[2016-07-17] MEDS: INSULIN ASPART 100 UNITS/ML 3 ML PEN SC SCH ×2 (09:32→13:27)
--- NOTE | 2016-07-17 10:17 | Nephrology Progress Note ---
Nephrology Progress Note Date of Service July 17, 2016. Chief Complaint Follow-up for chronic kidney disease and diuretic resistant volume overload. Subjective Jazmin was seen and examined in her room this morning. She has been otherwise doing well. Continues to have decent urine output and responding to diuretics orally. Renal function Slightly worsened to creatinine 1.9. urine output 3 liters, net negative . Blood pressure stable. Review of Systems A complete review of systems was performed. Pertinent positives are noted above. All other systems are negative. Vital Signs Last 8 Hrs Date Time Temp Pulse Resp B/P Pulse Ox O2 Delivery O2 Flow Rate FiO2 07/17/16 07:53 94 Nasal Cannula 3.0 07/17/16 07:47 36.7 78 16 105/66 94 Nasal Cannula 3.0 07/17/16 07:28 86 16 95 Nasal Cannula 3.0 I & O 24-Hour Column 07/17/16 08:00 Intake Total 927 ml Output Total 5200 ml Balance -4273 ml Last Recorded Weight Weight (Kilograms): 145.900 Physical Exam GENERAL: Middle-aged female, morbidly obese, AAA x 3, pleasant,, not in any distress. NECK: Supple, no JVD. RESPIRATORY: Normal breathing efforts, no accessory muscle use, clear to auscultation bilaterally, no wheezes or rales. CARDIOVASCULAR: S1, S2 normal, rate rhythm regular. EXTREMITY: 3 + bilateral lower extremity edema, with weeping bullae, currently wrapped in dressing NEURO: speech fluent. PSYCHIATRY: Normal mood and judgment. Family History Cancer Diabetes mellitus Gallbladder disease Heart disease Lung disease Negative for CKD / ESRD Social History Smoking Status: Former smoker Drug Use: none Marital Status: Housing Status: lives with family Occupation: unemployed . Lives w/ . Remote h/o tobacco use Laboratory Results Past 24 Hours 07/17/16 06:28 07/17/16 06:28 Test 07/16/16 11:55 07/16/16 17:45 07/16/16 20:42 07/17/16 06:28 Bedside Glucose 162 mg/dl (70-90) 159 mg/dl (70-90) 198 mg/dl (70-90) Red Blood Count 3.43 M/uL (4.2-5.4) Mean Corpuscular Volume 100.6 fL (80-100) Mean Corpuscular Hemoglobin 30.9 pg (25-34) Mean Corpuscular Hemoglobin Concent 30.7 g/dl (32-36) RDW Standard Deviation 69.9 fL (36.4-46.3) RDW Coefficient of Variation 19.2 % (11.5-14.5) Mean Platelet Volume 9.7 fL (7.4-10.4) Nucleated RBC Absolute Count (auto) 0.17 K/uL (0-0) Nucleated Red Blood Cells % 1.9 % Anion Gap 3.0 mmol/L (3-11) Est Creatinine Clear Calc Drug Dose 44.2 ml/min Estimated GFR () 32.2 Estimated GFR (Non- 27.8 BUN/Creatinine Ratio 21.9 (10-20) Calcium Level 9.3 mg/dl (8.5-10.1) Allergies Coded Allergies: Daptomycin (Verified Allergy, Mild, HIVES, 06/14/16) itching Codeine (Verified Allergy, Unknown, unknown, 06/14/16) has tolerated morphine Iodine (Verified Allergy, Unknown, 06/14/16) Shellfish (Verified Allergy, Unknown, 06/14/16) Sulfamethoxazole w/Trimethoprim (Verified Allergy, Unknown, RASH, 06/14/16) Medications Current Inpatient Medications Medications (Trade) Dose Ordered Sig/Duyen Route Start Time Stop Time Status Last Admin Dose Admin Heparin Sodium (Porcine) (Heparin Sq 5000 Unit/0.5ml) 5,000 unit Q8 SQ 07/10/16 22:00 08/09/16 21:59 07/17/16 06:02 5,000 UNIT Acetaminophen (Tylenol Tab) 650 mg Q4H PRN PO 07/10/16 20:30 08/09/16 20:29 07/15/16 14:57 650 MG Nitroglycerin (Nitrostat Tab) 0.4 mg UD PRN SL 07/10/16 20:30 08/09/16 20:29 Allopurinol (Zyloprim Tab) 100 mg DAILY PO 07/11/16 09:00 08/10/16 08:59 07/16/16 09:21 100 MG Atorvastatin Calcium (Lipitor Tab) 40 mg DAILY PO 07/11/16 09:00 08/10/16 08:59 07/16/16 09:18 40 MG Cholecalciferol (Vitamin D Tab) 2,000 inter.unit DAILY PO 07/11/16 09:00 08/10/16 08:59 07/16/16 09:17 2,000 INTER.UNIT Salmeterol Xinafoate/ Fluticasone (Advair Diskus 500/50 Inh) 1 puff BID INH 07/11/16 09:00 08/10/16 08:59 07/16/16 20:37 1 PUFF Metoprolol Succinate (Toprol Xl Tab) 150 mg DAILY PO 07/11/16 09:00 08/10/16 08:59 07/16/16 09:16 150 MG Miconazole Nitrate (Desenex Powder) 1 appln PRN PRN EXT 07/10/16 21:15 08/09/16 21:14 07/11/16 21:15 1 APPLN Multivitamins/ Minerals (Multivitamin W/ Minerals Tab) 1 tab DAILY PO 07/11/16 09:00 08/10/16 08:59 07/16/16 09:18 1 TAB Pregabalin (Lyrica Cap) 150 mg TID PO 07/10/16 23:00 08/09/16 22:59 07/16/16 20:40 150 MG Pyridoxine HCl (Vitamin B-6 Tab) 200 mg DAILY PO 07/11/16 09:00 08/10/16 08:59 07/16/16 09:18 200 MG Tiotropium [place] (Spiriva Handihaler Inhaler) 1 puff DAILY INH 07/11/16 09:00 08/10/16 08:59 07/16/16 11:22 1 PUFF Verapamil HCl (Calan-Sr Tab) 240 mg DAILY PO 07/11/16 09:00 08/10/16 08:59 07/16/16 09:17 240 MG Cyanocobalamin (Vitamin B-12 Tab) 2,500 mcg DAILY PO 07/11/16 09:00 08/10/16 08:59 07/16/16 09:20 2,500 MCG Miscellaneous Information (Order Awaiting Action) 1 ea QS N/A 07/10/16 22:00 08/09/16 21:59 [id number]-[id number] Acetate (Vitamin E Cap) 800 interunit DAILY PO 07/11/16 09:00 08/10/16 08:59 07/16/16 09:19 800 INTERUNIT Albuterol/ Ipratropium (Duoneb) 3 ml QIDR INH 07/11/16 08:00 08/10/16 07:59 07/17/16 07:27 3 ML Glucose (Glucose 40% Gel) 15-30 GRAMS 15 GRAMS... UD PRN PO 07/10/16 22:15 08/09/16 22:14 Glucose (Glucose Chew Tab) 4-8 Tablets 4 Tabl... UD PRN PO 07/10/16 22:15 08/09/16 22:14 Dextrose (Dextrose 50% 50ML Syringe) 25-50ML OF 50% DW IV FOR... UD PRN IV 07/10/16 22:15 08/09/16 22:14 Glucagon (Glucagon Inj) 1 mg UD PRN SQ 07/10/16 22:15 08/09/16 22:14 Vancomycin HCl (Consult) 1 ea UD PRN N/A 07/10/16 23:30 08/09/16 23:29 Miscellaneous Information (Consult Glycemic Management Pharmacy) 1 ea UD PRN N/A 07/11/16 00:30 08/10/16 00:29 Insulin Aspart (novoLOG ASPART) SLIDING SCALE ACHS SC 07/11/16 07:00 08/10/16 06:59 07/16/16 20:46 21 UNITS Prednisone (PredniSONE TAB) 15 mg QAM PO 07/12/16 09:00 08/11/16 08:59 07/16/16 09:19 15 MG Pantoprazole Sodium (Protonix Tab) 40 mg QAM PO 07/12/16 09:00 08/11/16 08:59 07/16/16 09:19 40 MG Potassium Chloride 40 meq 40 meq DAILY PO 07/14/16 09:00 08/13/16 08:59 07/16/16 09:17 40 MEQ Vancomycin HCl/ Sodium Chloride (Vancomycin Inj/ Nss 500ml) 528 ml @ 200 mls/hr DAILY@1800 IV 07/16/16 18:00 07/26/16 17:59 07/16/16 18:19 200 MLS/HR Bumetanide (Bumex Tab) 4 mg TID PO 07/16/16 09:00 08/15/16 08:59 07/16/16 20:37 4 MG Metolazone (Zaroxolyn Tab) mg QAM PO 07/16/16 09:00 08/15/16 08:59 07/16/16 09:34 5 MG Insulin Glargine (Lantus Vial) BID SC 07/17/16 09:00 08/16/16 08:59 Impression (1) Cor pulmonale, chronic (2) Obesity hypoventilation syndrome (3) Abdominal wall cellulitis (4) Chronic kidney disease (CKD) stage G3b/A1, moderately decreased glomerular filtration rate (GFR) between 30-44 mL/min/1.73 square meter and albuminuria creatinine ratio less than 30 mg/g (5) Diabetes (6) Anasarca Recommendations -- continue on Bumex 4 milligram 3 times a day and metolazone 5 milligram daily. -- Cr slightly worsen, Baseline creatinine has been 1.7 - 2.0 --limit to of fluid intake to less than 2 liters and salt intake to less than 2 grams per day --ok to be discharged with above diuretics dose --renal panel on next Thursday and then weekly ( ordered in EMR ). Has appointment with Dr. Neri in July. -- Discussed the possibility of worsening kidney function in response to high dose of loop and thiazide diuretics. Patient may not respond to oral diuretics and edema worsen. Discussed that in case any of the above happens, will schedule for TDC and start on HD as out pt. Pt already has appointment for eval for AVF.
[2016-07-17] MEDS: METOPROLOL SUCC 50MG EXT REL TAB PO SCH (11:30)
--- NOTE | 2016-07-17 11:45 | Pharmacy Progress Note ---
Glycemic Control: Progress Nt Date of Service July 17, 2016. Scope Glycemic Pharmacist consulted for glycemic control and to write orders per [facility] inpatient glycemic control protocol. Objective Accuchecks BSG (last 24hrs): Test 07/16/16 11:55 07/16/16 17:45 07/16/16 20:42 07/17/16 06:28 Bedside Glucose 162 mg/dl (70-90) 159 mg/dl (70-90) 198 mg/dl (70-90) Random Glucose 222 mg/dl (70-99) Test 07/17/16 08:25 Bedside Glucose 219 mg/dl (70-90) Laboratory Data (last 24hrs) Test 07/17/16 06:28 Anion Gap 3.0 mmol/L BUN/Creatinine Ratio 21.9 Blood Urea Nitrogen 42 mg/dl Creatinine 1.90 mg/dl Potassium Level 3.5 mmol/L Sodium Level 137 mmol/L White Blood Count 8.78 K/uL Recent Pertinent Medications Outpatient regimen: * Toujeo 70 units BID * Novolog 50 with breakfast/50 with lunch/90 with dinner/40 at bedtime * A1c = 6.3 % on 05/20/16 The patient is currently receiving: * Basal insulin: Lantus 70 units every 12 hours * Correctional Insulin: Novolog Correction per scale ACHS Goal Range: Low 110 mg/dL - High 140 mg/dL Correction Factor: 8 mg/dL/unit * Prandial insulin: Per carb ratio of 1 unit per 1 grams CHO consumed Risk Factors for Insulin Resistance: * Steroids: prednisone 15 mg PO daily (home dose) * Infection: cellulitis on vancomycin * Diet: T2DM / low Na / AHA Assessment & Plan ASSESSMENT: 07/16/17 * ADA & AACE recommend a goal blood sugar range 140-180 mg/dl for the majority of critically ill & non-critically ill patients. However, more stringent targets may be selected in individual cases. Will utilize more stringent goal of 110-140mg/dl based on patient age & comorbidities. Additionally, tighter glycemic control is warranted to facilitate wound/infection healing. * Ms Gaytan is a 60 y/O F well known to the glycemic service admitted for cellulitis. She has remained stable on Lantus 70 units BID and Novolog with correction factor of 5 and carbohydrate of 2. This has produced reasonable control until several days ago when the patient remained above 200 for the entire day. I believe that the Lasix gtt (mixed in dextrose) contributed to this. The patient is very insulin resistant so the dextrose from this infusion could have elevated her blood sugars significantly. Now this has been discontinued. * Her correction factor was decreased from 10 to 8 this morning and produced a nice decrease from 229 mg/dL to 162 mg/dL. It is still reasonable to continue this carbohydrate ratio as she is insulin resistant and I believe that this is essential for her. She most likely needs her carbohydrates covered with a less aggressive correction factor 07/17/16 * BSG's improving, ranging 159-219 mg/dL over the last 24 hours. Total of 337 units insulin administered yesterday. * Steroids stable, currently at home dose * Highest BSG was AM fasting to 219 mg/dL. Will increase Lantus by ~10% PLAN FOR INPATIENT GLYCEMIC CONTROL: * Holding outpatient oral diabetes medications * Increase Basal insulin with LANTUS 75 units SQ BID (50 units for BSG < 100 mg/ dL) * Correctional Insulin with NOVOLOG per scale ACHS or Q6hrs while NPO * Goal Range: Low 110 mg/dL - High 140 mg/dL * Correction Factor: 8 mg/dL/unit * Nutritional / Prandial insulin per carb ratio of 1 unit per 1 grams CHO consumed * Please note that the plan above was derived based on current level of insulin resistance and hospital stress. These recommendations are appropriate for inpatient admission only. Plan of care upon discharge will need to be reassessed to avoid potential outpatient hypo/hyperglycemia. Thank you.
[2016-07-17] MEDS ORDERED: MCRK20 PO (13:28)
[2016-07-17] MEDS ORDERED: BMX1 PO (13:28)
[2016-07-17] MEDS ORDERED: PRT40 PO (13:28)
[2016-07-17] MEDS ORDERED: VRPSR240 PO (13:28)
[2016-07-17] MEDS ORDERED: ZRX5 PO (13:28)
[2016-07-17] MEDS ORDERED: DXY100 PO (13:28)
--- NOTE | 2016-07-17 13:44 | Discharge Instructions ---
Discharge Instructions Date of Service July 17, 2016. Admission Reason for Admission: Cellulitis Of Abdominal Wall, Cellulitis Of Leg Discharge Discharge Diagnosis / Problem: CHF/Cor Pulmonale exacerbation, Abdominal cellulitis Discharge Goals Goal(s): Decrease discomfort, Improve function, Increase independence, Improve disease control, Therapeutic intervention Activity Recommendations Activity Limitations: resume your previous activity . Instructions / Follow-Up Instructions / Follow-Up On discharge: Congestive heart failure - Continue Bumex 4 mg three times daily, metolazone 5mg daily, and the potassium supplements 40mEq daily - Adhere to a strict low salt diet - remember no more than 400mg at any sitting , and no more than 2000mg in the entire day. Reading labels carefully will help you with this - Adhere a strict fluid intake of 50oz in each day. Try drinking sips when thirsty rather than drinking more so out of habit. It's helpful to have a designated cup that you know the measurement of so you can keep track - Keep your legs elevated as much as possible, and keep active and walking as much as you can tolerate Abdominal wound - You finished 7 days of IV antibiotics in hospital, please complete 7 more days of antibiotics Doxycycline 100mg twice daily. - Follow up with wound clinic so that they can keep an eye on the healing of the wound - Follow up with ID as arranged Blood pressure - Continue metoprolol 150mg and verapamil 240mg daily. Take one tablet at night and the other in the day time. Leg swelling - Keep legs elevated - Perform daily dressing changes - Attend lymphadenopathy clinic Chronic kidney disease - Your creatinine has increased with the aggressive diuresis - Get lab tests on Thursday as ordered by nephrology - Follow up with nephrology as scheduled MGUS - Get lab tests on Thursday at the same time as your kidney lab tests - Call in to the [facility] and schedule your bone tests as well - Follow up with Dr. Delong as scheduled Continue you COPD inhalers, diabetic regimen and all other home medications as well. Current Hospital Diet Patient's current hospital diet: Diabetes Type 2 Diet, Low Sodium Diet (2gm Na) , AHA Diet (Heart Healthy) Discharge Diet Recommended Diet: Low Sodium Diet (2gm Na) Fluid Restriction: 1500 ml (6 cups) Pending Studies Studies pending at discharge: no Laboratory Results Hemoglobin A1c Test 05/20/16 13:26 Range/Units Estimated Average Glucose 134 mg/dl Hemoglobin A1c 6.3 H 4.5-5.6 % Lipid Panel Test 05/20/16 13:26 Range/Units Triglycerides Level 202 H 0-150 mg/dl Cholesterol Level 126 0-200 mg/dl HDL Cholesterol 43 mg/dl Cholesterol/HDL Ratio 2.9 LDL Cholesterol, Calculated 43 mg/dl Medical Emergencies . Who to Call and When: Medical Emergencies: If at any time you feel your situation is an emergency, please call 911 immediately. . Non-Emergent Contact Non-Emergency issues call your: Primary Care Provider, Central Office Mechanic, Oncologist . . "Provider Documentation" section prepared by Brooklyn Laughlin. . VTE Core Measure Inpt VTE Proph given/why not?: Unfractionated heparin SQ Resident Tracking Resident Involvement: Resident Care Provided Care Provided: Adult Hospital Medicine
--- NOTE | 2016-07-17 17:27 | Medical Student: [facility] ---
Med Student Progress Note Date of Service July 17, 2016. Subjective Pt evaluation today including: conversation w/ patient Voiding: no voiding problems Ms Hemalatha Gaytan is a morbidly obese 60 yo female with COPD, DM, HTN, HLD, and multiple comorbidities who on hospital day 8 with fluid overload and an abdominal wound. She is better to her baseline for breathing and mobility and is back to her baseline 3L O2 and is maintaining O2 saturations seated and with minimal exertion. She was switched to po 4mg bumex tid plus metolozone 5mg q am by nephro yesterday and diuresed a lost about 10 lbs of water weight since yesterday. Although she has difficulty reclining, she did prop her feet up yesterday for a short period of time, which she said she can probably keep doing at home too. She is very happy with how things are proceeding. She denies lightheadedness, dizziness, nausea/vomiting, shortness of breath, chest pain, constipation, diarrhea, or changes in bladder function. She is ready to go home and is happy to be able to make her lymphedema appointment this afternoon. Review of Systems Constitutional: + see HPI Eyes: No problem reported ENT: No problem reported Respiratory: + dyspnea on exertion Cardiac: + edema, + orthopnea Abdomen: + problem reported (abdominal wound, improving) Musculoskeletal: + joint pain (back pain, chronic) Female : No problem reported Neurologic: No problem reported Psychiatric: No problem reported Heme: No problem reported Skin: No problem reported Objective Vital Signs Date Time Temp Pulse Resp B/P Pulse Ox O2 Delivery O2 Flow Rate FiO2 07/17/16 15:11 36.7 92 16 131/74 95 Nasal Cannula 3.5 07/17/16 13:01 36.7 84 16 95 Nasal Cannula 07/17/16 11:21 84 16 95 Nasal Cannula 3.0 07/17/16 10:25 119/72 07/17/16 08:15 94 Nasal Cannula 3.0 Humidified Oxygen 07/17/16 07:53 94 Nasal Cannula 3.0 07/17/16 07:47 36.7 78 16 105/66 94 Nasal Cannula 3.0 07/17/16 07:28 86 16 95 Nasal Cannula 3.0 07/16/16 23:05 36.6 92 16 144/77 97 Nasal Cannula 3.0 07/16/16 20:30 Nasal Cannula 3.0 Humidified Oxygen 07/16/16 19:36 91 16 96 Nasal Cannula 3.0 Physical Exam General Appearance: WD/WN, no apparent distress Eyes: bilateral eyes EOMI, bilateral eyes PERRL, bilateral eyes normal inspection ENT: normal ENT inspection, hearing grossly normal, pharynx normal Neck: supple, no JVD, no carotid bruits Respiratory/Chest: chest non-tender, lungs clear, no respiratory distress, no accessory muscle use, + decreased breath sounds Cardiovascular: regular rate, rhythm, no murmur, + pertinent finding ( persistent but improved 2+pitting weeping edema bilaterally) Abdomen: + pertinent finding (small round wound with some transudative discharge, not erythematous) Extremities: non-tender, + pedal edema, + swelling Skin: + mottled (red/purple but less dark than yesterday) Laboratory Results Last 24 Hours Test 07/16/16 17:45 07/16/16 20:42 07/17/16 06:28 07/17/16 08:25 Bedside Glucose 159 mg/dl 198 mg/dl 219 mg/dl White Blood Count 8.78 K/uL Red Blood Count 3.43 M/uL Hemoglobin 10.6 g/dL Hematocrit 34.5 % Mean Corpuscular Volume 100.6 fL Mean Corpuscular Hemoglobin 30.9 pg Mean Corpuscular Hemoglobin Concent 30.7 g/dl RDW Standard Deviation 69.9 fL RDW Coefficient of Variation 19.2 % Platelet Count 286 K/uL Mean Platelet Volume 9.7 fL Nucleated RBC Absolute Count (auto) 0.17 K/uL Nucleated Red Blood Cells % 1.9 % Sodium Level 137 mmol/L Potassium Level 3.5 mmol/L Chloride Level 96 mmol/L Carbon Dioxide Level 38 mmol/L Anion Gap 3.0 mmol/L Blood Urea Nitrogen 42 mg/dl Creatinine 1.90 mg/dl Est Creatinine Clear Calc Drug Dose 44.2 ml/min Estimated GFR () 32.2 Estimated GFR (Non- 27.8 BUN/Creatinine Ratio 21.9 Random Glucose 222 mg/dl Calcium Level 9.3 mg/dl Assessment and Plan Assessment and Plan: Ms Hemalatha Gaytan is a morbidly obese 60 year old female with multiple comorbidities including COPD requiring 3L O2 at baseline, right and left sided heart failure, DM, CKD III, HLD, and HTN among others here for persistent lower extremity edema and an abdominal wound on hospital day 8. She is being discharged today. Individual assessment and plan are as follows: 1. CHF: Chronic, combined systolic and diastolic dysfunction. Poor diastolic function likely cause of SOB due to fluid overload. Patient has been switched to PO diuretics, tolerating diuresis well. 40mEq Kcl replacement therapy daily. Continue on metoprolol 150mg and amlodipine daily, taking one in the morning and one at night.Discussed importance of drinking when thirsty, not out of habit to not take in extra fluids. Continue salt restrictions and continue to try to lose weight. Stay active as possible. 2. Abdominal wound: Small, ~1cm, round. Improving with less drainage. Planned d/ c on doxycycline. Will recommend f/u with wound care clinic. 3. COPD: Chronic, improving with diuresis. Breathing without accessory muscle use or shortness of breath on 3L O2. Maintaining sats with minimal exertion on 3L O2. Will continue home inhalers as prescribed. Currently on 15mg prednisone as outpatient too x 6-7 months. Will continue. 4. Respiratory acidosis: Likely due to being on oxygen and compensation for contraction alkalosis. Continue on acetazolemide 250mg BID. 5. CKD: Stage III. Creatinine baseline ~2, most recently 1.9 and increasing over last few days. Nephrology followup recommended, with labs to be drawn Thursday. 6. Chronic Edema: Secondary to venous insufficiency, poor kidney and heart function. Associated venous stasis ulcers and discoloration. Wound care has been consulted. Continues to weep. Home bandage instructions will be necessary. Follow up with lymphedema clinic 7. HTN: BP currently well controlled on 150mg metoprolol and 240 verapamil. Encouraged to take one in morning, one at night. 8. DM: Chronic, insulin dependent. Lantus 40 units BID plus sliding scale novalog. Sugars have been well controlled in hospital. Will discharge on regimen on which she entered hospital. 9. Back Pain: Chronic, due to herniated disc. Takes Lyrica. No change. 10. Gout: Chronic, takes 100mg allopurinol qd 11. Disposition: Home! Continued [facility] stay due to: other (Trial PO medications) Discharge planning: home
--- NOTE | 2016-07-17 19:50 | Discharge Summary ---
Discharge Summary Date of Service July 17, 2016. (Alka. Laughlin MD) Discharge Summary Admission Date: July 10, 2016 at 20:44 Discharge Date: July 17, 2016 Discharge Disposition: Home Principal Diagnosis: CHF, abdominal wound Problems/Secondary Diagnoses: (1) CHF (congestive heart failure) Status: Chronic Immunizations: Have You Had Influenza Vaccine: Yes Influenza Vaccine Date: Apr 15, 2012 History of Tetanus Vaccine?: No History of Pneumococcal: Yes Pneumococcal Date: Jan 13, 2013 History of Hepatitis B Vaccine: No (Alka. Laughlin MD) Medication Reconciliation New Medications: Bumetanide (Bumetanide) 1 Mg Tab 4 MG PO TID for 30 Days, #360 TAB Doxycycline Hyclate (Doxycycline Hyclate) 100 Mg Cap 100 MG PO BID, #13 CAP Metolazone (Metolazone) 5 Mg Tab 5 MG PO QAM for 30 Days, #30 TAB Pantoprazole (Pantoprazole Sodium) 40 Mg Tab 40 MG PO QAM for 30 Days, #30 TAB Potassium Chloride (Klor-Con M20) 20 Meq Tabcr 40 MEQ PO DAILY for 30 Days, #60 TAB Changed Medications: Verapamil HCl (Verapamil HCl ER) 240 Mg Tabcr 240 MG PO HS for 30 Days (Changed from: DAILY) Continued Medications: Allopurinol (Zyloprim) 100 Mg Tab 100 MG PO DAILY, TAB Ascorbic Acid (Vitamin C 500 mg) 1 Chw Chw 1000 MG PO DAILY Atorvastatin (Lipitor) 40 Mg Tab 40 MG PO DAILY, TAB Cholecalciferol (Vitamin D3) 1,000 Unit Tab 1000 UNITS PO DAILY for 90 Days, TAB 3 Refills Cyanocobalamin (Vitamin B-12) 2,500 Mcg Subl 2500 MCG PO DAILY Fluticasone Prop/Salmeterol (Advair Diskus 500/50 60 Dose) 1 Ea Aerp 1 PUFF INH BID, INHALER Insulin Aspart (Novolog Flexpen) 100 Units/Ml Inj 50 UNITS SQ W/BREAKFAST Insulin Aspart (Novolog Flexpen) 100 Units/Ml Inj 50 UNITS SQ W/LUNCH Insulin Aspart (Novolog Flexpen) 100 Units/Ml Inj 90 UNITS SQ W/SUPPER Insulin Aspart (Novolog Flexpen) 100 Units/Ml Inj 40 UNITS SQ HS Insulin Glargine (Toujeo Solostar) 300 Unit/Ml Inj 70 UNIT SQ BID, #1 Ipratropium-Albuterol (Duoneb) 3 Ml Nebu 1 TREATMENT INH Q6 PRN for SOB/Wheezing, INHA Lactic Acid (Ammonium Lactate) (Amlactin) 12 % Lot 1 APPLN TOP BID Lorcaserin Hcl (Belviq) 10 Mg Tab 10 MG PO BID Metoprolol Succ (Toprol Xl) (Toprol-Xl ) 100 Mg Tabcr 150 MG PO DAILY, TAB Miconazole Nitrate (Desenex Shake Powder) 43 Appln/43 Gm Powd 1 APPLN EXT PRN PRN for Affected Skin Folds, #1 BTL 1 Refill Multiple Vitamins W/ Minerals (One Daily For Women) 1 Tab Tab 1 TAB PO DAILY Prednisone (Prednisone) 10 Mg Tab 10 MG PO DIRECTED, #45 0 Refills starting 06/23/16: take 2.5 tabs daily for 2 days, then 2 tabs daily for 2 days, then resume your 1.5 tablets daily thereafter. Take with food. Pregabalin (Lyrica) 150 Mg Cap 150 MG PO TID, CAP Pyridoxine (Vitamin B6) 100 Mg Tab 200 MG PO DAILY, TAB Tiotropium Sumner (Spiriva Handihaler) 30 Puff/540 Mcg Aerp 1 CAP INH DAILY, INHALER Vitamin E (Vitamin E) 400 Unit Tab 800 UNITS PO DAILY Discontinued Medications: Bumetanide (Bumex) 1 Mg Tab 3 MG PO TID, TAB Ciprofloxacin (Ciprofloxacin HCl) 1 Homepack Ea 500 MG PO BID, #60 Doxycycline Hyclate (Doxycycline Hyclate) 100 Mg Tab 1 TAB PO BID for 10 Days, #20 TAB Potassium Chloride (Klor-Con M20) 20 Meq Tabcr 20 MEQ PO DAILY, #30 TAB 0 Refills start 06/23/16 Discharge Exam Patient tolerating diuresis well with improvement in SOB and swelling. Abdominal wound and leg swelling also improving. Important lifestyle changes/ restrictions emphasized along with follow up plans. Patient agrees with goals. Patient keen for home. Review of Systems: Constitutional: No chills, No fever Respiratory: + dyspnea on exertion, No cough, No shortness of breath, No wheezing Cardiovascular: + edema, + orthopnea, No PND, No chest pain, No palpitations Abdomen: No constipation, No diarrhea, No nausea, No pain, No vomiting Musculoskeletal: + swelling (improving in legs and abdomen), No calf pain Genitourinary - Female: No dysuria, No hematuria Physical Exam: General Appearance: WD/WN, no apparent distress ENT: hearing grossly normal Respiratory/Chest: lungs clear, normal breath sounds, no respiratory distress, no accessory muscle use Cardiovascular: regular rate, rhythm, no murmur Abdomen / GI: normal bowel sounds, non tender, soft, + pertinent finding ( Wound on bottom side of right panus healing. Erythema gone. Serous seepage still present) Extremities: normal capillary refill, + pedal edema, + swelling 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: alert, normal mood/affect, oriented x 3 Skin: + pertinent finding (Evidence of chronic venous insufficiency. Erythema on legs diminsihed along top edge) (Alka. Laughlin MD) Hospital Course 60 year old female with cor pulmonale and heart failure, COPD and chronic hypoxic respiratory failure requiring 3L O2 baseline at home, DM, CKD III, morbid obesity, HLD, and chronic venous insufficiency admitted with progressive SOB and seeping abdominal wound. Acute on chronic combined diastolic and right sided systolic heart failure (Cor pulmonale) - Likely cause of SOB. BNP 296. Trop negative. CXR on 07/11 shows pulm vasc congestion. Last echo 07/25/15: Hyperdynamic LV systolic function. Mild concentric LV hypertrophy. LV diastolic dysfunction. Mild RV dilatation and systolic dysfunction. Mild tricuspid regurgitation. Mildly elevated RV systolic pressure. Normal central venous pressure. 25lbs gained since last admission. Nephrology consulted. Patient undergoing aggressive diuresis with Lasix drip initially and was tolerating it well. Switched to PO medications. Diamox 250mg BID discontinued prior to discharge. I/O: -14.3 L this hospitalization, and lost ~9kg - Bumex 4mg TID + Metolazone 5mg daily + - Metoprolol 150mg daily - KCl replacement 40mEq daily - Daily weights, strict I/O's, low salt diet, fluid restricted to 1500ml daily Abdominal cellulitis/wound - Serous seepage, no purulent discharge, likely extravasated fluid from edematous soft tissue. ID and wound care consulted - recs appreciated. Wound cultured coag negative staph. Discontinued empiric Zosyn after 2 days. Blood cultures negative. Completed IV Vancomycin x 7days - Complete 7 more days of PO Doxycycline on discharge, as per ID for 14 day course total - Follow up in wound clinic and with ID COPD - current SOB more likely secondary to fluid overload, if no improvement with diuresis, may consider adjustment to COPD medications - Advair, Spiriva, DuoNeb - Home dose of prednisone 15mg daily - 3L O2 via nasal cannula during the day, BiPAP overnight MGUS - diagnosed at last admission, followed by Dr. Delong - Pending outpatient tests can be ordered once acute issues dealt with: CBC w/ diff, CMP, immunofixation - 24 hr urine, immunonfixation - serum, kappa/Lambda light chains - free w/ ratio - serum, protein electrophoresis panel -24 hr urine , serum protein electrophoresis, metastatic skeletal survey (PET and bone scan) - Tests not done in hospital in case aggressive diuresis skewed results CKD III - Creatinine 1.7-2.0 at baseline. Anticipating changes with aggressive diuresis. Nephrology consulted. - Cr 1.8 on morning of discharge - Patient agreeable to potential HD if creatinine worsens - Monitor via BMP on 07/21 with follow up with nephrology scheduled Chronic venous insufficiency - bilateral, chronic without recent change, not likely to be Cellulitis. Wound Care consulted- recs appreciated - Keep legs elevated - Ongoing dressing changes HTN - BP in adequate range - Metoprolol 150mg daily + Verapamil 240mg nightly DM - last HbA1c 6.3 on 05/20/16 - Lantus 40 units BID + ISS with Accu check ac/hs in hospital - Resume home regimen on discharge Hypophosphatemia - Resolved. 2.2 on 07/13. Unable to obtain IV access, thus supplemented with 2 tabs of Phospha 220 Neutral. Phosphate now WNL Gout - asymptomatic - Allopurinol 100mg daily Chronic pain - Pregabalin VTE prophylaxis - Heparin SQ Code Status - Do not resuscitate Total Time Spent: Greater than 30 minutes This includes examination of the patient, discharge planning, medication reconciliation, and communication with other providers. (Alka. Laughlin MD) Resident Physician Supervision Note: I interviewed and examined the patient. Discussed with Dr. Laughlin and agree with findings and plan as documented in the note. Any exceptions or clarifications are listed here: None Documented By: Michael Lockhart feeling better breathing better no sob, edema improved, doing well on PO diuretics ros otherwise negative except for as above vitals noted breathing unlabored no distress no pallor or icterus cor pulmonale - on high dose bumex, stable for home CKD - due to cor pulmonale might progress to ESRD requiring HD - she is aware and OK with this if it happens. ongoing close f/u abdominal wall cellulitis - improving, finish abx per ID recs stable for home, otherwise as above Total Time Spent: Less than 30 minutes (Michael Lockhart D.Cande.) Discharge Instructions Please refer to the electronic Patient Visit Report (Discharge Instructions) for additional information. (Alka. Laughlin MD)
[2016-07-17] MEDS ORDERED: DOXYCYCLINE HYCLATE 100 MG CAP PO SCH (21:00)
[2016-07-18] MEDS ORDERED: VANCOMYCIN TROUGH ONE (17:30)
[2016-07-23] MEDS ORDERED: POTA20TA16 PO (10:15)
[2016-07-28] MEDS ORDERED: ULT50X PO (14:38)
[2016-08-13] MEDS ORDERED: METO100T44 PO (09:30)
[2016-08-13] MEDS ORDERED: PREG1CAP70 PO (09:37)
[2016-08-13] MEDS ORDERED: ALLO100T PO (11:43)
[2016-08-13] MEDS ORDERED: NVLGI/PEN SQ ×4 (11:43→13:26)
[2016-08-13] MEDS ORDERED: MULT1TAB22 PO (13:08)
[2016-08-13] MEDS ORDERED: CHOL1000 PO (13:08)
[2016-08-13] MEDS ORDERED: ADVIN50/60 INH (13:08)
[2016-08-13] MEDS ORDERED: ATOR-24 PO (13:08)
[2016-08-13] MEDS ORDERED: VITA1TAB4 PO (13:08)
[2016-08-13] MEDS ORDERED: SPRIN/30 INH (13:08)
[2016-08-13] MEDS ORDERED: PYRI100T4 PO (13:52)
[2016-08-13] MEDS ORDERED: ASCO500C43 PO (13:54)
[2016-08-13] MEDS ORDERED: LORC1TAB PO (17:18)
[2016-08-13] MEDS ORDERED: IPRASOL4 INH (17:18)
[2016-08-13] MEDS ORDERED: LACT1LOT3 TOP (17:18)
[2016-09-22] MEDS ORDERED: PRED10TA PO (14:40)
[2016-11-27] MEDS ORDERED: LYR50 PO (13:39)
[2016-11-27] MEDS ORDERED: RXC5 PO (13:39)
[2016-11-27] MEDS ORDERED: LDDP5 TD (13:39)
[2016-12-14] MEDS ORDERED: MCTP EXT (08:26)
[2016-12-14] MEDS ORDERED: NYSP EXT (08:26)
[2016-12-14] MEDS ORDERED: HYDR-4079 PO (08:26)
== END 2016-07-17 16:12 | disposition home or self-care (01) | DRG 602 ==
LOC: ENRESERVTM → ENRESERVDT → C.EDB 15:36 → C.2E 20:44 → C.MSN 07-14 19:13
PROVIDERS: ADMIT Hospitalist; ATTEND Family Medicine
DX: L03.311 Cellulitis of abdominal wall (principal); I50.43 Acute on chronic combined systolic (congestive) and diastolic (congestive) heart failure; J96.11 Chronic respiratory failure with hypoxia; E66.2 Morbid (severe) obesity with alveolar hypoventilation; Z68.43 Body mass index [BMI] 50.0-59.9, adult; L97.909 Non-pressure chronic ulcer of unspecified part of unspecified lower leg with unspecified severity; L98.499 Non-pressure chronic ulcer of skin of other sites with unspecified severity; M50.30 Other cervical disc degeneration, unspecified cervical region; J44.9 Chronic obstructive pulmonary disease, unspecified; E11.21 Type 2 diabetes mellitus with diabetic nephropathy; Z88.2 Allergy status to sulfonamides; N18.3 Chronic kidney disease, stage 3 (moderate); E78.5 Hyperlipidemia, unspecified; I87.2 Venous insufficiency (chronic) (peripheral); I12.9 Hypertensive chronic kidney disease with stage 1 through stage 4 chronic kidney disease, or unspecified chronic kidney disease; E83.39 Other disorders of phosphorus metabolism; M1A.9XX0 Chronic gout, unspecified, without tophus (tophi); E83.52 Hypercalcemia; M19.049 Primary osteoarthritis, unspecified hand; I87.8 Other specified disorders of veins; Z87.891 Personal history of nicotine dependence; D47.2 Monoclonal gammopathy

== ENCOUNTER → 2016-07-21 | Outpatient (CLI) | payer BC ==
[~2016-07-21] MED LIST changes: +ADVIN50/60 INH; +ALLO100T PO; +ASCO500C43 PO; +ATOR-24 PO; +B-COCAP20 PO; +CALC667C PO; +CEPH500C PO; +CHOL1000 PO; +DOXY100C76 PO; +DOXY100T PO; +DRGTP50 TD; +DXY100 PO; +FAMO1TAB47 PO; +HYDR-4079 PO; +HYDR-5688 PO; +INSU1.2I SC; -KFL500 PO; +LACT1LOT3 TOP; +LDDP5 TD; +LIDO1CRE TOP; +LYR50 PO; +LYR75 PO; +MCTP TOP; +MELA3TAB PO; +METO100T44 PO; +MULT1TAB22 PO; +NVLGI/PEN SQ; +NYSP EXT; +ONDA4TAB46 PO; +ONDA4TAB65 PO; +PANT40TA PO; +PHS667 PO; +POTA20TA16 PO; +PREG1CAP70 PO; +PRT40 PO; +PYRI100T4 PO; +RXC5 PO; +SILV1CRE73 TOP; +SPRIN/30 INH; +TRAM-10 PO; +ULT50X PO; -VBRT100 PO; +VERA1TAB52 PO; +VERA240C2 PO; +VITA1TAB4 PO; +ZRX5 PO
[2016-07-21 17:32] LABS: HEMATOCRIT 34.2 % (37-47); MEAN CELL VOLUME 99.7 fL (80-100); MEAN CORPUSCULAR HEMOGLOBIN 30.6 pg (25-34); MEAN CORPUSCULAR HGB CONC 30.7 g/dl (32-36); MEAN PLATELET VOLUME 10.3 fL (7.4-10.4); PLATELET COUNT 266 K/uL (130-400); RED BLOOD COUNT 3.43 M/uL (4.2-5.4); WHITE BLOOD COUNT 10.21 K/uL (4.8-10.8)
[2016-07-21 18:17] LABS: CALCIUM 10.1 mg/dl (8.5-10.1)
[2016-07-21 18:20] LABS: ALB/GLOB RATIO 0.5 (0.9-2); ALKALINE PHOSPHATASE 76 U/L (45-117); ALT/SGPT 40 U/L (12-78); AST/SGOT 26 U/L (15-37); BLOOD UREA NITROGEN 71 mg/dl (7-18); BUN/CREATININE RATIO 28.5 (10-20); CHLORIDE 85 mmol/L (98-107); GLUCOSE 107 mg/dl (70-99); PHOSPHORUS 4.3 mg/dl (2.5-4.9); POTASSIUM 2.6 mmol/L (3.5-5.1); SODIUM 133 mmol/L (136-145)
[2016-07-21 19:17] LABS: CARBON DIOXIDE 42 mmol/L (21-32)
== END | disposition home or self-care (01) ==
LOC: C.LABPVFM 11:23
PROVIDERS: ATTEND Internal Medicine Nephrology
DX: R80.9 Proteinuria, unspecified (principal); R60.9 Edema, unspecified; I12.9 Hypertensive chronic kidney disease with stage 1 through stage 4 chronic kidney disease, or unspecified chronic kidney disease; N18.4 Chronic kidney disease, stage 4 (severe); E83.52 Hypercalcemia

== ENCOUNTER → 2016-07-22 | Outpatient (CLI) | payer BC ==
[2016-07-22 13:57] LABS: HEPATITIS B AB NEG
[2016-07-22 14:38] LABS: BLOOD UREA NITROGEN 77 mg/dl (7-18); BUN/CREATININE RATIO 33.5 (10-20); CALCIUM 9.8 mg/dl (8.5-10.1); CHLORIDE 85 mmol/L (98-107); GLUCOSE 83 mg/dl (70-99); POTASSIUM 2.6 mmol/L (3.5-5.1); SODIUM 136 mmol/L (136-145)
[2016-07-22 14:39] LABS: PHOSPHORUS 3.8 mg/dl (2.5-4.9)
[2016-07-22 15:22] LABS: CARBON DIOXIDE 54 mmol/L (21-32)
== END | disposition home or self-care (01) ==
LOC: C.LAB1850 12:36
PROVIDERS: ATTEND Internal Medicine Nephrology
DX: I12.9 Hypertensive chronic kidney disease with stage 1 through stage 4 chronic kidney disease, or unspecified chronic kidney disease (principal); N18.4 Chronic kidney disease, stage 4 (severe)

== ENCOUNTER 2016-07-23 21:10 | Inpatient (IN) | payer BC ==
[~2016-07-23] VITALS: Ht 165.1 cm; Wt 137.7 kg
[~2016-07-23 21:10] MED LIST changes: -ADVIN50/60 INH; -ALLO100T PO; -ASCO500C43 PO; -ATOR-24 PO; -B-COCAP20 PO; -CALC667C PO; -CEPH500C PO; -CHOL1000 PO; -DOXY100C76 PO; -DOXY100T PO; -DRGTP50 TD; -FAMO1TAB47 PO; -HYDR-4079 PO; -HYDR-5688 PO; -INSU1.2I SC; -IPRASOL4 INH; -LACT1LOT3 TOP; -LDDP5 TD; -LIDO1CRE TOP; -LORC1TAB PO; -LYR50 PO; -LYR75 PO; -MCTP TOP; -MELA3TAB PO; -METO100T44 PO; -MULT1TAB22 PO; -NVLGI/PEN SQ; -NYSP EXT; -ONDA4TAB46 PO; -ONDA4TAB65 PO; -OXGN; -PANT40TA PO; -PHS667 PO; -PREG1CAP70 PO; -PYRI100T4 PO; -RXC5 PO; -SILV1CRE73 TOP; -SPRIN/30 INH; -TRAM-10 PO; -ULT50X PO; -VERA1TAB52 PO; -VERA240C2 PO; -VITA1TAB4 PO
[2016-07-23 22:32] LABS: BASO % 0.2 %; BASO ABS # 0.02 K/uL (0-0.2); COMPLETE YES; EOS % 0.9 %; HEMATOCRIT 35.8 % (37-47); IG% 0.5 %; LYMPH % 10.2 %; LYMPH ABS # 0.89 K/uL (1.2-3.4); MEAN CELL VOLUME 100.3 fL (80-100); MEAN CORPUSCULAR HEMOGLOBIN 30.5 pg (25-34); MEAN CORPUSCULAR HGB CONC 30.4 g/dl (32-36); MEAN PLATELET VOLUME 10.1 fL (7.4-10.4); MONO % 11.7 %; NEUT % 76.5 %; PLATELET COUNT 269 K/uL (130-400); RED BLOOD COUNT 3.57 M/uL (4.2-5.4)
--- NOTE | 2016-07-23 22:33 | DIAGNOSTIC IMAGING REPORT ---
CHEST ONE VIEW PORTABLE CLINICAL HISTORY: Chest pain. COMPARISON STUDY: Chest radiograph July 10, 2016. FINDINGS: A 9 mm right upper lobe nodule remains unchanged. There is no pneumothorax. Mild bibasilar opacities favor atelectasis. No pleural effusion is present. Cardiomediastinal silhouette is stable. IMPRESSION: 1. Bibasilar opacities which favor atelectasis. 2. No change in the 9 mm right upper lobe nodule. Electronically signed by: Elicoe Rubio M.D. 07/23/2016 10:32 PM Dictated Date/Time: 07/23/2016 10:29 PM
[2016-07-23 22:54] LABS: ALT/SGPT 42 U/L (12-78); BLOOD UREA NITROGEN 78 mg/dl (7-18); CALCIUM 10.7 mg/dl (8.5-10.1); CHLORIDE 83 mmol/L (98-107); GLUCOSE 159 mg/dl (70-99); MAGNESIUM 2.5 mg/dl (1.8-2.4); POTASSIUM 2.9 mmol/L (3.5-5.1); SODIUM 134 mmol/L (136-145)
[2016-07-23 22:56] LABS: ALKALINE PHOSPHATASE 81 U/L (45-117); AST/SGOT 28 U/L (15-37); CKMB/CK RATIO 2.1 (0-3.0)
[2016-07-23 23:13] LABS: CARBON DIOXIDE 55 mmol/L (21-32)
[2016-07-23 23:55] LABS: VEN BLD GAS O2 SATURATION 76.9 %; VEN BLOOD GAS BASE EXCESS 21.7 mmol/L
[2016-07-24 01:10] LABS: URINE APPEARANCE CLEAR (CLEAR); URINE BILIRUBIN NEG (NEG); URINE COLOR YELLOW; URINE NITRITE NEG (NEG); URINE PH 5.5 (4.5-7.5); UROBILINOGEN NEG (NEG); ZZUR CULT IF INDIC CLEAN CATCH NO
[2016-07-24 01:12] LABS: MANUAL MICROSCOPIC REQUIRED? NO; REVIEW REQ? NO
--- NOTE | 2016-07-24 03:08 | EMERGENCY ROOM VISIT NOTE ---
History First contact with patient: 21:34 Chief Complaint: HIP PAIN Stated Complaint: FALL / HIP PAIN History of Present Illness The patient is a 60 year old female who presents to the Emergency Room with complaints of low back pain and pelvic pain after she fell getting out of the chair. Patient states since being discharged from the hospital she's been extremely shaky and fatigued. Patient states she thinks is due to her new medicine. Patient had her blood work checked recently and states her potassium has been low and her CO2 has been high. Patient does normally wear 3 L of O2. She has COPD and CHF. Patient denies chest pain, dyspnea, abdominal pain, increased leg swelling, neck pain, upper back pain, head injury or any other medical complaints. Patient states she feels extremely unsteady when she ambulates with her walker. Review of Systems See HPI for pertinent positives & negatives. A total of 10 systems reviewed and were otherwise negative. Past Medical/Surgical History Medical Problems: (1) Abdominal wall cellulitis (2) Abdominal wall cellulitis (3) Abrasion of toe of right foot (4) Acute kidney injury (5) Acute on chronic diastolic (congestive) heart failure (6) Acute respiratory failure with hypoxia and hypercapnia (7) Anemia (8) Asymptomatic bacteriuria (9) Cellulitis of abdominal wall (10) Cellulitis of leg (11) Cervical Disc Degen (12) CHF (congestive heart failure) (13) Chronic kidney disease (CKD) stage G3b/A1, moderately decreased glomerular filtration rate (GFR) between 30-44 mL/min/1.73 square meter and albuminuria creatinine ratio less than 30 mg/g (14) CO2 narcosis (15) COPD (chronic obstructive pulmonary disease) (16) Cor pulmonale, chronic (17) Cystitis (18) Diab Mariama Wo Compl, Type Ii Or Unspec Type, Uncontrolled (19) Diabetes (20) Edema (21) Hypercalcemia (22) Hyponatremia (23) Metabolic alkalosis with respiratory acidosis (24) Metabolic encephalopathy (25) Morbid obesity with BMI of 50.0-59.9, adult (26) Obesity hypoventilation syndrome (27) Obesity hypoventilation syndrome (28) Ovarian Cyst Nec/Nos (29) Pulmonary Collapse (30) Pulmonary nodules (31) Sciatica (32) Venous stasis dermatitis of both lower extremities Family History Cancer Diabetes mellitus Gallbladder disease Heart disease Lung disease Social History Smoking Status: Former Smoker Drug Use: none Marital Status: Housing Status: lives with family Occupation Status: unemployed Current/Historical Medications Scheduled Allopurinol (Zyloprim), 100 MG PO DAILY Ascorbic Acid (Vitamin C 500 mg), 1,000 MG PO DAILY Atorvastatin (Lipitor), 40 MG PO DAILY Bumetanide (Bumetanide), 4 MG PO TID Cholecalciferol (Vitamin D3), 1,000 UNITS PO DAILY Cyanocobalamin (Vitamin B-12), 2,500 MCG PO DAILY Doxycycline Hyclate (Doxycycline Hyclate), 100 MG PO BID Fluticasone Prop/Salmeterol (Advair Diskus 500/50 60 Dose), 1 PUFF INH BID Insulin Aspart (Novolog Flexpen), 50 UNITS SQ W/BREAKFAST Insulin Aspart (Novolog Flexpen), 50 UNITS SQ W/LUNCH Insulin Aspart (Novolog Flexpen), 90 UNITS SQ W/SUPPER Insulin Aspart (Novolog Flexpen), 40 UNITS SQ HS Insulin Glargine (Toujeo Solostar), 70 UNIT SQ BID Lactic Acid (Ammonium Lactate) (Amlactin), 1 APPLN TOP BID Lorcaserin Hcl (Belviq), 10 MG PO BID Metolazone (Metolazone), 5 MG PO QAM Metoprolol Succ (Toprol Xl) (Toprol-Xl ), 150 MG PO DAILY Multiple Vitamins W/ Minerals (One Daily For Women), 1 TAB PO DAILY Pantoprazole (Pantoprazole Sodium), 40 MG PO QAM Potassium Ext Rel (Klor-Con), 80 MEQ PO DAILY Prednisone (Prednisone), 10 MG PO DIRECTED Pregabalin (Lyrica), 150 MG PO TID Pyridoxine (Vitamin B6), 200 MG PO DAILY Tiotropium [place] (Spiriva Handihaler), 1 CAP INH DAILY Verapamil HCl (Verapamil HCl ER), 240 MG PO HS Vitamin E (Vitamin E), 800 UNITS PO DAILY Scheduled PRN Ipratropium-Albuterol (Duoneb), 1 TREATMENT INH Q6 PRN for SOB/Wheezing Miconazole Nitrate (Desenex Shake Powder), 1 APPLN EXT PRN PRN for Affected Skin Folds Allergies Coded Allergies: Daptomycin (Verified Allergy, Mild, HIVES, 07/24/16) itching Codeine (Verified Allergy, Unknown, unknown, 07/24/16) has tolerated morphine Iodine (Verified Allergy, Unknown, 07/24/16) Shellfish (Verified Allergy, Unknown, 07/24/16) Sulfamethoxazole w/Trimethoprim (Verified Allergy, Unknown, RASH, 07/24/16) Physical Exam Vital Signs Date Time Temp Pulse Resp B/P Pulse Ox O2 Delivery O2 Flow Rate FiO2 07/24/16 02:15 72 07/24/16 01:20 73 16 151/66 93 Nasal Cannula 3.0 07/23/16 23:23 85 16 147/67 92 Nasal Cannula 3.0 07/23/16 22:14 87 07/23/16 21:43 96 Nasal Cannula 4.0 07/23/16 21:43 96 Nasal Cannula 4.0 07/23/16 21:19 36.8 86 18 151/67 97 Nasal Cannula 4.0 Physical Exam VITALS: Vitals are noted on the nurse's note and reviewed by myself. Vital signs stable. GENERAL: Pleasant female, in no acute distress, nondiaphoretic, well-developed well-nourished. SKIN: The skin was without rashes, erythema, edema, or bruising. There is no tenting of the skin. Capillary reflex less than 2 seconds. HEAD: Normocephalic atraumatic. EARS: External auditory canals clear, tympanic membranes pearly florez without erythema or effusion bilaterally. EYES: Pupils equal round and reactive to light and accommodation. Conjunctivae without injection, sclerae without icterus. Extraocular movements intact. NOSE: Patent, turbinates without inflammation or discharge. MOUTH: Mucous membranes mildly dry. Pharynx without erythema or exudate. Uvula midline. Airway patent. Tongue does not deviate. NECK: Supple without nuchal rigidity. No lymphadenopathy. No thyromegaly. Cervical spine is nontender. No JVD. HEART: Regular rate and rhythm LUNGS: Clear to auscultation bilaterally without wheezes, rales or rhonchi. No dullness to percussion. No retractions or accessory muscle use. ABDOMEN: Positive bowel sounds x 4. Normal tympanic percussion. Soft, protuberant, obese, nontender, without masses or organomegaly. Donaldson sign negative. No guarding or rebound tenderness. MUSCULOSKELETAL: No muscle atrophy noted. No thoracic tenderness on exam. Lumbar tenderness and sacral tenderness on exam with tenderness to pelvis with compression. Upper and lower extremities full range of motion nontender to palpation. NEURO: Patient was alert and oriented to person place and time. Normal sensation to light and sharp touch. No focal neurological deficits. Medical Decision & Procedures Laboratory Results 07/23/16 22:15 Red Blood Count 3.57, Mean Corpuscular Volume 100.3, Mean Corpuscular Hemoglobin 30.5, Mean Corpuscular Hemoglobin Concent 30.4, Mean Platelet Volume 10.1, Neutrophils (%) (Auto) 76.5, Lymphocytes (%) (Auto) 10.2, Monocytes (%) ( Auto) 11.7, Eosinophils (%) (Auto) 0.9, Basophils (%) (Auto) 0.2, Neutrophils # (Auto) 6.65, Lymphocytes # (Auto) 0.89, Monocytes # (Auto) 1.02, Eosinophils # ( Auto) 0.08, Basophils # (Auto) 0.02 07/23/16 22:15 Test 07/23/16 22:15 07/23/16 23:38 07/24/16 00:45 White Blood Count 8.70 K/uL (4.8-10.8) Red Blood Count 3.57 M/uL (4.2-5.4) Hemoglobin 10.9 g/dL (12.0-16.0) Hematocrit 35.8 % (37-47) Mean Corpuscular Volume 100.3 fL (80-100) Mean Corpuscular Hemoglobin 30.5 pg (25-34) Mean Corpuscular Hemoglobin Concent 30.4 g/dl (32-36) Platelet Count 269 K/uL (130-400) Mean Platelet Volume 10.1 fL (7.4-10.4) Neutrophils (%) (Auto) 76.5 % Lymphocytes (%) (Auto) 10.2 % Monocytes (%) (Auto) 11.7 % Eosinophils (%) (Auto) 0.9 % Basophils (%) (Auto) 0.2 % Neutrophils # (Auto) 6.65 K/uL (1.4-6.5) Lymphocytes # (Auto) 0.89 K/uL (1.2-3.4) Monocytes # (Auto) 1.02 K/uL (0.11-0.59) Eosinophils # (Auto) 0.08 K/uL (0-0.5) Basophils # (Auto) 0.02 K/uL (0-0.2) RDW Standard Deviation 67.3 fL (36.4-46.3) RDW Coefficient of Variation 18.6 % (11.5-14.5) Immature Granulocyte % (Auto) 0.5 % Immature Granulocyte # (Auto) 0.04 K/uL (0.00-0.02) Nucleated RBC Absolute Count (auto) 0.14 K/uL (0-0) Nucleated Red Blood Cells % 1.6 % Anion Gap -4.0 mmol/L (3-11) Est Creatinine Clear Calc Drug Dose 33.8 ml/min Estimated GFR () 23.1 Estimated GFR (Non- 19.9 BUN/Creatinine Ratio 31.0 (10-20) Calcium Level 10.7 mg/dl (8.5-10.1) Magnesium Level 2.5 mg/dl (1.8-2.4) Total Bilirubin 0.2 mg/dl (0.2-1) Direct Bilirubin mg/dl (0-0.2) Aspartate Amino Transf (AST/SGOT) 28 U/L (15-37) Alanine Aminotransferase (ALT/SGPT) 42 U/L (12-78) Alkaline Phosphatase 81 U/L (45-117) Total Creatine Kinase 62 U/L (26-192) Creatine Kinase MB 1.3 ng/ml (0.5-3.6) Creatine Kinase MB Ratio 2.1 (0-3.0) Troponin I < 0.015 ng/ml (0-0.045) Total Protein 9.4 gm/dl (6.4-8.2) Albumin 3.0 gm/dl (3.4-5.0) Chemistry Specimen Hemolysis Venous Blood pH 7.38 (7.36-7.41) Venous Blood Partial Pressure CO2 86 mmHg (38.0-50.0) Venous Blood Partial Pressure O2 76 mmHg Venous Blood HCO3 50 mmol/L Venous Blood Oxygen Saturation 76.9 % Venous Blood Base Excess 21.7 mmol/L Urine Color YELLOW Urine Appearance CLEAR (CLEAR) Urine pH 5.5 (4.5-7.5) Urine Specific [place] 1.010 (1.000-1.030) Urine Protein NEG (NEG) Urine Glucose (UA) NEG (NEG) Urine Ketones NEG (NEG) Urine Occult Blood NEG (NEG) Urine Nitrite NEG (NEG) Urine Bilirubin NEG (NEG) Urine Urobilinogen NEG (NEG) Urine Leukocyte Esterase NEG (NEG) ED Course Prior records/ancillary studies reviewed and summarized above. Nursing notes reviewed. Additional history obtained from family. The patient's history was concerning for fall who is extremely shaky after the game need diuretics. Differential diagnosis: Etiologies such as metabolic, infection, hypo/hyperglycemia, electrolyte abnormalities, cardiac sources, intracerebral event, toxicologic, neurologic, as well as others were entertained. Physical examination: As above. ER treatment provided: IV Lock On reassessment the patient felt better. Diagnostics interpretation by me: ECG: Normal sinus, normal intervals, no acute ST-T wave changes. Impression normal sinus rhythm interpreted by myself The labs revealed elevated CO2, hypokalemia, elevated creatinine Imaging studies: CT of the L-spine and pelvis were negative for acute fracture. Old sacral fracture per radiology CHEST ONE VIEW PORTABLE CLINICAL HISTORY: Chest pain. COMPARISON STUDY: Chest radiograph July 10, 2016. FINDINGS: A 9 mm right upper lobe nodule remains unchanged. There is no pneumothorax. Mild bibasilar opacities favor atelectasis. No pleural effusion is present. Cardiomediastinal silhouette is stable. IMPRESSION: 1. Bibasilar opacities which favor atelectasis. 2. No change in the 9 mm right upper lobe nodule. Consultation: A consultation was placed with the hospitalist, Dr. Aguilar. The case was discussed and diagnostics were reviewed. The patient was evaluated in the ER for further treatment. Exam and history seem consistent with dehydration and patient being over diuresed with acute kidney injury. Patient has an elevated CO2 low chloride and low potassium. Patient most likely is on too much diuretic. She is extremely weak and cannot walk. She'll be evaluated by medicine for possible admission. By the evaluation outlined above emergent etiologies such as infection, cardiac sources, intracerebral event, toxologic, neurologic, abnormalities blood glucose, as well as others were deemed relatively unlikely. The pt informed about the findings as listed above. All questions were answered and pleased with the treatment. Case reviewed by attending Medical Decision As above Impression Primary Impression: Dehydration Additional Impressions: Acute kidney injury Lumbar strain Hypokalemia Anemia Departure Information Dispostion Being Evaluated By Hospitalist Condition FAIR Referrals Emily Isaac, C.R.N.P (PCP) Patient Instructions My [facility] Problem Qualifiers
[2016-07-24] MEDS ORDERED: ONDANSETRON INJ 2 MG/ML 2 ML VIAL IV PRN (03:15)
[2016-07-24] MEDS ORDERED: ALBUT/IPRATROP 3MG/0.5MG NEB 3 ML VIAL INH PRN (03:15)
[2016-07-24] MEDS ORDERED: ALUMINUM/MAGNESIUM/SIMETH (MAALOX MAX) 30 ML UDC PO PRN (03:15)
[2016-07-24] MEDS ORDERED: MAGNESIUM HYDROXIDE SUSP 30 ML UDC PO PRN (03:15)
[2016-07-24] MEDS ORDERED: ACETAMINOPHEN 325 MG TAB PO PRN (03:15)
[2016-07-24] MEDS ORDERED: ZOLPIDEM TARTRATE 5 MG TAB PO PRN (03:15)
[2016-07-24] MEDS ORDERED: POLYETHYLENE (MIRALAX) 17 GM PACK PO PRN (03:15)
[2016-07-24] MEDS ORDERED: MICONAZOLE NITRATE POWDER 43 GM EXT PRN (03:15)
--- NOTE | 2016-07-24 03:51 | History and Physical ---
History & Physical Date & Time of Service: July 24, 2016 at 03:30 Chief Complaint: Fall / Hip Pain Primary Care Physician: Emily Isaac C.R.N.P History of Present Illness Source: patient 60 y/o F Hx 02-dependent COPD, R CHF, DM, CKD 3, morbid obesity, chronic LE edema and cellulitis. Recently admitted for worsening LE edema, cellulitis and an abdominal wall abscess. She was D/Cd 07/17 and states she has experienced progressive weakness since that time. She was unable to support her own weight today and collapsed sustaining trama to her back and buttocks. She did not suffer a fracture however she remains unable to ambulate and has several lab abnormalities which are consistent with acute on chronic RF, contraction alkalosis and hypokalemia. Past Medical/Surgical History Medical Problems: (1) Cellulitis of abdominal wall Status: Chronic (2) Cervical Disc Degen Status: Chronic (3) CHF (congestive heart failure) Status: Chronic (4) COPD (chronic obstructive pulmonary disease) Status: Chronic (5) Diab Mariama Wo Compl, Type Ii Or Unspec Type, Uncontrolled Status: Chronic (6) Diabetes Status: Chronic (7) Ovarian Cyst Nec/Nos Status: Chronic (8) Pulmonary Collapse Status: Resolved (9) Sciatica Status: Chronic Family History Cancer Diabetes mellitus Gallbladder disease Heart disease Lung disease Social History Smoking Status: Former Smoker Drug Use: none Marital Status: Housing status: lives with family Occupational Status: unemployed Immunizations History of Influenza Vaccine: Yes Influenza Vaccine Date: Apr 15, 2012 History of Tetanus Vaccine?: No History of Pneumococcal: Yes Pneumococcal Date: Jan 13, 2013 History of Hepatitis B Vaccine: No Multi-Drug Resistant Organisms History of MDRO: No Allergies Coded Allergies: Daptomycin (Verified Allergy, Mild, HIVES, 07/24/16) itching Codeine (Verified Allergy, Unknown, unknown, 07/24/16) has tolerated morphine Iodine (Verified Allergy, Unknown, 07/24/16) Shellfish (Verified Allergy, Unknown, 07/24/16) Sulfamethoxazole w/Trimethoprim (Verified Allergy, Unknown, RASH, 07/24/16) Home Medications Scheduled Allopurinol (Zyloprim), 100 MG PO DAILY Ascorbic Acid (Vitamin C 500 mg), 1,000 MG PO DAILY Atorvastatin (Lipitor), 40 MG PO DAILY Bumetanide (Bumetanide), 4 MG PO TID Cholecalciferol (Vitamin D3), 1,000 UNITS PO DAILY Cyanocobalamin (Vitamin B-12), 2,500 MCG PO DAILY Doxycycline Hyclate (Doxycycline Hyclate), 100 MG PO BID Fluticasone Prop/Salmeterol (Advair Diskus 500/50 60 Dose), 1 PUFF INH BID Insulin Aspart (Novolog Flexpen), 50 UNITS SQ W/BREAKFAST Insulin Aspart (Novolog Flexpen), 50 UNITS SQ W/LUNCH Insulin Aspart (Novolog Flexpen), 90 UNITS SQ W/SUPPER Insulin Aspart (Novolog Flexpen), 40 UNITS SQ HS Insulin Glargine (Toujeo Solostar), 70 UNIT SQ BID Lactic Acid (Ammonium Lactate) (Amlactin), 1 APPLN TOP BID Lorcaserin Hcl (Belviq), 10 MG PO BID Metolazone (Metolazone), 5 MG PO QAM Metoprolol Succ (Toprol Xl) (Toprol-Xl ), 150 MG PO DAILY Multiple Vitamins W/ Minerals (One Daily For Women), 1 TAB PO DAILY Pantoprazole (Pantoprazole Sodium), 40 MG PO QAM Potassium Ext Rel (Klor-Con), 80 MEQ PO DAILY Prednisone (Prednisone), 10 MG PO DIRECTED Pregabalin (Lyrica), 150 MG PO TID Pyridoxine (Vitamin B6), 200 MG PO DAILY Tiotropium [place] (Spiriva Handihaler), 1 CAP INH DAILY Verapamil HCl (Verapamil HCl ER), 240 MG PO HS Vitamin E (Vitamin E), 800 UNITS PO DAILY Scheduled PRN Ipratropium-Albuterol (Duoneb), 1 TREATMENT INH Q6 PRN for SOB/Wheezing Miconazole Nitrate (Desenex Shake Powder), 1 APPLN EXT PRN PRN for Affected Skin Folds Review of Systems Constitutional: No chills, No fever, No sweats Eyes: No worsening of vision ENT: No hearing loss, No nasal symptoms, No unusual epistaxis Respiratory: + shortness of breath (chronic), No cough, No sputum, No wheezing Cardiovascular: No PND, No chest pain, No orthopnea Abdomen: No nausea, No pain, No vomiting Musculoskeletal: + joint pain, + muscle pain Genitourinary - Female: No dysuria, No urinary frequency, No urinary urgency Neurologic: + weakness, No memory loss, No paralysis Psychiatric: No depression symptoms Endocrine: + fatigue Integumentary: + problem reported (Healing abdominal abscess and LE erythema, stasis chges present), + rash Physical Exam Vital Signs Date Time Temp Pulse Resp B/P Pulse Ox O2 Delivery O2 Flow Rate FiO2 07/24/16 02:15 72 07/24/16 01:20 73 16 151/66 93 Nasal Cannula 3.0 07/23/16 23:23 85 16 147/67 92 Nasal Cannula 3.0 07/23/16 22:14 87 07/23/16 21:43 96 Nasal Cannula 4.0 07/23/16 21:43 96 Nasal Cannula 4.0 07/23/16 21:19 36.8 86 18 151/67 97 Nasal Cannula 4.0 General Appearance: WD/WN, no apparent distress, + pertinent finding (Obese middle-aged F with cushingoid appearance) Head: normocephalic, atraumatic, + pertinent finding ENT: + pertinent finding (Exam is limited due to habitus) Neck: supple, + pertinent finding (Lkmited exam due to habitus) Respiratory/Chest: chest non-tender, lungs clear, no respiratory distress, no accessory muscle use, + decreased breath sounds (decreased air at bases - exam limited by habitus) Cardiovascular: regular rate, rhythm, no gallop, + pertinent finding (faint/ reg heart sounds - cannot discern a murmur) Abdomen/GI: normal bowel sounds, + pertinent finding (healing abdominal wound) Back: normal inspection, no CVA tenderness Extremities/Musculoskelatal: + inflammation, + pedal edema, + swelling Neurologic/Psych: house calls nurse practitioner II-XII nml as tested, no motor/sensory deficits, alert, normal mood/affect, normal reflexes, oriented x 3 Skin: + rash (As per extrem exam) Diagnostics Laboratory Results Results Past 24 Hours Test 07/23/16 22:15 07/23/16 23:38 07/24/16 00:45 Range/Units White Blood Count 8.70 4.8-10.8 K/uL Red Blood Count 3.57 4.2-5.4 M/uL Hemoglobin 10.9 12.0-16.0 g/dL Hematocrit 35.8 37-47 % Mean Corpuscular Volume 100.3 80-100 fL Mean Corpuscular Hemoglobin 30.5 25-34 pg Mean Corpuscular Hemoglobin Concent 30.4 32-36 g/dl Platelet Count 269 130-400 K/uL Mean Platelet Volume 10.1 7.4-10.4 fL Neutrophils (%) (Auto) 76.5 % Lymphocytes (%) (Auto) 10.2 % Monocytes (%) (Auto) 11.7 % Eosinophils (%) (Auto) 0.9 % Basophils (%) (Auto) 0.2 % Neutrophils # (Auto) 6.65 1.4-6.5 K/uL Lymphocytes # (Auto) 0.89 1.2-3.4 K/uL Monocytes # (Auto) 1.02 0.11-0.59 K/uL Eosinophils # (Auto) 0.08 0-0.5 K/uL Basophils # (Auto) 0.02 0-0.2 K/uL RDW Standard Deviation 67.3 36.4-46.3 fL RDW Coefficient of Variation 18.6 11.5-14.5 % Immature Granulocyte % (Auto) 0.5 % Immature Granulocyte # (Auto) 0.04 0.00-0.02 K/uL Nucleated RBC Absolute Count (auto) 0.14 0-0 K/uL Nucleated Red Blood Cells % 1.6 % Sodium Level 134 136-145 mmol/L Potassium Level 2.9 3.5-5.1 mmol/L Chloride Level 83 98-107 mmol/L Carbon Dioxide Level 55 21-32 mmol/L Anion Gap -4.0 3-11 mmol/L Blood Urea Nitrogen 78 7-18 mg/dl Creatinine 2.50 0.60-1.20 mg/dl Est Creatinine Clear Calc Drug Dose 33.8 ml/min Estimated GFR () 23.1 Estimated GFR (Non- 19.9 BUN/Creatinine Ratio 31.0 10-20 Random Glucose 159 70-99 mg/dl Calcium Level 10.7 8.5-10.1 mg/dl Magnesium Level 2.5 1.8-2.4 mg/dl Total Bilirubin 0.2 0.2-1 mg/dl Direct Bilirubin 0-0.2 mg/dl Aspartate Amino Transf (AST/SGOT) 28 15-37 U/L Alanine Aminotransferase (ALT/SGPT) 42 12-78 U/L Alkaline Phosphatase 81 45-117 U/L Total Creatine Kinase 62 26-192 U/L Creatine Kinase MB 1.3 0.5-3.6 ng/ml Creatine Kinase MB Ratio 2.1 0-3.0 Troponin I < 0.015 0-0.045 ng/ml Total Protein 9.4 6.4-8.2 gm/dl Albumin 3.0 3.4-5.0 gm/dl Chemistry Specimen Hemolysis Venous Blood pH 7.38 7.36-7.41 Venous Blood Partial Pressure CO2 86 38.0-50.0 mmHg Venous Blood Partial Pressure O2 76 mmHg Venous Blood HCO3 50 mmol/L Venous Blood Oxygen Saturation 76.9 % Venous Blood Base Excess 21.7 mmol/L Urine Color YELLOW Urine Appearance CLEAR CLEAR Urine pH 5.5 4.5-7.5 Urine Specific [place] 1.010 1.000-1.030 Urine Protein NEG NEG Urine Glucose (UA) NEG NEG Urine Ketones NEG NEG Urine Occult Blood NEG NEG Urine Nitrite NEG NEG Urine Bilirubin NEG NEG Urine Urobilinogen NEG NEG Urine Leukocyte Esterase NEG NEG Impression Assessment and Plan 60 y/o F Hx 02-dependent COPD, R CHF, DM, CKD 3, morbid obesity, chronic LE edema and cellulitis. Recently admitted for worsening LE edema, cellulitis and an abdominal wall abscess. She was D/Cd 07/17 and states she has experienced progressive weakness since that time. She was unable to support her own weight today and collapsed sustaining trama to her back and buttocks. She did not suffer a fracture however she remains unable to ambulate and has several lab abnormalities which are consistent with acute on chronic RF, contraction alkalosis and hypokalemia. 1) Weakness/ARF - likely due to dehydration owing to addition of Metolazone to her meds and increase in her Bumex dose prior to recent D/C. Pt will be provided with IVF and diuretics will be held pending AM reassessment. We will monitor her volume status on telemetry although owing to her habitus this would likely be through monitoring her oxygenation. 2) Hypokalemia - will be replaced - Mag and Phos levels are pending 3) CHF - again her diuretics have been held currently - cont B shreyas - volume assessment is clinically limited due to her obesity 4) DM - placed on SS with Levimir per home dose 5) COPD - no evidence of acute exacerbation - she is dependent on 3l o2 - we will place her on an 02 protocol, provide nebs as needed and continue her home inhalers and daily Prednisone 6) Gout - Allopurinol held in light of GUNNAR - she is presently on Prednisone so is unlikely to flare in the short term 7) HTN - Cont Verapamil, Metoprolol 8) Recent LE cellulitis and abdominal abscess - cont BID Doxy - improving Full code - Heparin prophylaxis Total time for this admit including review of labs, meds, records - discussion with pt and ER attending 39 min Level of Care Telemetry Resuscitation Status FULL RESUSCITATION VTE Prophylaxis VTE Risk Assessment Done? Y/N: Yes Risk Level: Moderate Given or contraindicated: Unfractionated heparin SQ
[2016-07-24 04:18] VITALS: BP 135/67; PULSE 77; TEMP 36.4; O2SAT 93; Ht 165.1 cm; Wt 137.7 kg
[2016-07-24] MEDS ORDERED: NSS + 20MEQ KCL 1000ML 1,000 ML IV SCH (05:30)
[2016-07-24] MEDS ORDERED: POTASSIUM CHLORIDE 20 MEQ TABCR PO ONE ×2 (06:00→13:45)
--- NOTE | 2016-07-24 06:46 | DIAGNOSTIC IMAGING REPORT ---
CT LUMBAR SPINE WITHOUT CT DOSE: 3137.33 mGy.cm CLINICAL HISTORY:Severe LBP/pelvic pain after fall TECHNIQUE: Axial images of the lumbar spine were obtained without IV contrast. Sagittal and coronal reconstructions were viewed. COMPARISON STUDY: Lumbar spine CT June 14, 2016. FINDINGS: No acute lumbar spine fracture is identified. There is no suspicious osseous lesion. There is [id number] multilevel disc space narrowing with osteophytosis and vacuum disc phenomenon. Central canal and neural foramen are suboptimally assessed by CT. Multilevel disc bulges are noted. There is moderate multilevel facet arthrosis. Paravertebral soft tissues are unremarkable with the exception of a 5.7 cm fat-containing left adrenal lesion which suggest a myelolipoma. IMPRESSION: No acute lumbar spine fracture or subluxation. Electronically signed by: Eliceo Rubio M.D. 07/24/2016 6:44 AM Dictated Date/Time: 07/24/2016 6:39 AM
[2016-07-24] MEDS: HEPARIN SOD 5000 UNIT/0.5 ML CARP SQ SCH ×3 (07:14→19:51)
--- NOTE | 2016-07-24 07:18 | DIAGNOSTIC IMAGING REPORT ---
PELVIS CT CT DOSE: HISTORY: severe LBP/pelvic pain after fall TECHNIQUE: Multiaxial CT images of the pelvis were performed and reformatted in the sagittal and coronal plane without the use of contrast. COMPARISON: None. FINDINGS: Deformity of the coccyx is likely related to an old, healed fracture. No acute fracture or dislocation within the pelvis or hips. The sacrum appears intact. IMPRESSION: No acute fracture or dislocation within the pelvis or hips. Electronically signed by: Villa Vidales M.D. 07/24/2016 7:17 AM Dictated Date/Time: 07/24/2016 7:14 AM
[2016-07-24 08:08] VITALS: BP 120/65; PULSE 84; TEMP 36.6; O2SAT 97
[2016-07-24] MEDS: AMMONIUM LACTATE 12% LOTION 225 GM BTL EXT SCH ×2 (09:00→19:54)
--- NOTE | 2016-07-24 09:30 | Family Medicine Progress Note ---
Progress Note Date of Service July 24, 2016. Subjective Pt evaluation today including: conversation w/ patient, physical exam Pain: well-controlled PO Intake: good 60-year-old female with a past medical history of cor pulmonale, CHF, COPD, chronic hypoxic respiratory failure requiring 3 L oxygen continuously, diabetes mellitus, CKD, morbid obesity, hyperlipidemia and chronic insufficiency presented to the ER with complaints of weakness. She was recently admitted to [facility] from 07/10 -07/17 for an abdominal wall abscess. She stated that she had been feeling weak with intermittent jerks of both her upper and lower extremities and had sustained a fall on her buttocks. She underwent pelvic and lumbar spine imaging in the ER which was negative for any fractures. She was admitted for managing her acute on chronic renal failure, electrolyte abnormalities, contraction alkalosis Constitutional: + fatigue, + weakness, No chills, No fever Eyes: No worsening of vision ENT: No hearing loss Respiratory: No cough, No shortness of breath, No sputum, No wheezing Cardiovascular: + orthopnea (chronic), No chest pain Abdomen: No nausea, No pain, No vomiting Female : No dysuria, No hematuria, No urinary frequency Neurologic: + problem reported (jerking of lower and upper extremities) Psychiatric: No depression symptoms Heme: No abnormal bleeding/bruising Endo: No fatigue Medications Current Inpatient Medications Medications (Trade) Dose Ordered Sig/Duyen Route Start Time Stop Time Status Last Admin Dose Admin Heparin Sodium (Porcine) (Heparin Sq 5000 Unit/0.5ml) 5,000 unit Q8H SQ 07/24/16 06:00 08/23/16 05:59 07/24/16 07:14 5,000 UNIT Acetaminophen (Tylenol Tab) 650 mg Q4H PRN PO 07/24/16 03:15 08/23/16 03:14 Al Hydrox/Mg Hydrox/Simethicone (Maalox Max Susp) 15 ml Q4H PRN PO 07/24/16 03:15 08/23/16 03:14 Magnesium Hydroxide (Milk Of Magnesia Susp) 30 ml Q12H PRN PO 07/24/16 03:15 08/23/16 03:14 Zolpidem Tartrate (Ambien Tab) 5 mg HSZ PRN PO 07/24/16 03:15 08/23/16 03:14 Ondansetron HCl (Zofran Inj) 4 mg Q6H PRN IV 07/24/16 03:15 08/23/16 03:14 Polyethylene (Miralax Powder Packet) 17 gm DAILY PRN PO 07/24/16 03:15 08/23/16 03:14 Atorvastatin Calcium (Lipitor Tab) 40 mg QAM PO 07/24/16 09:00 08/23/16 08:59 Doxycycline Hyclate (Vibramycin Cap) 100 mg BID PO 07/24/16 09:00 07/25/16 23:59 Salmeterol Xinafoate/ Fluticasone (Advair Diskus 500/50 Inh) 1 puff BID INH 07/24/16 09:00 08/23/16 08:59 Albuterol/ Ipratropium (Duoneb) 1 ml Q6 PRN INH 07/24/16 03:15 08/23/16 03:14 Ammonium Lactate (Lac-Hydrin) 1 appl BID EXT 07/24/16 09:00 08/23/16 08:59 Metoprolol Succinate (Toprol Xl Tab) 150 mg DAILY PO 07/24/16 09:00 08/23/16 08:59 Miconazole Nitrate (Desenex Powder) 1 appln PRN PRN EXT 07/24/16 03:15 08/23/16 03:14 Pantoprazole Sodium (Protonix Tab) 40 mg QAM PO 07/24/16 09:00 08/23/16 08:59 Prednisone (PredniSONE TAB) 10 mg DAILY PO 07/24/16 09:00 08/23/16 08:59 Pregabalin (Lyrica Cap) 150 mg TID PO 07/24/16 09:00 08/23/16 08:59 Pyridoxine HCl (Vitamin B-6 Tab) 200 mg DAILY PO 07/24/16 09:00 08/23/16 08:59 Tiotropium [place] (Spiriva Handihaler Inhaler) 1 puff DAILY INH 07/24/16 09:00 08/23/16 08:59 Verapamil HCl (Calan-Sr Tab) 240 mg HS PO 07/24/16 21:00 08/23/16 20:59 Cyanocobalamin (Vitamin B-12 Tab) 2,500 mcg DAILY PO 07/24/16 09:00 08/23/16 08:59 Non-Formulary Medication 70 unit 70 unit BID SQ 07/24/16 09:00 08/23/16 08:59 UNV Potassium Chloride/Sodium Chloride (Nss + 20meq KCl 1000ml) 1,000 ml @ 80 mls/hr [id number] IV 07/24/16 05:30 07/25/16 06:29 07/24/16 05:58 80 MLS/HR Objective Vital Signs Date Time Temp Pulse Resp B/P Pulse Ox O2 Delivery O2 Flow Rate FiO2 07/24/16 08:08 36.6 84 20 120/65 97 07/24/16 04:18 36.4 77 18 135/67 93 Nasal Cannula 3.0 07/24/16 03:20 74 16 95 Nasal Cannula 3.0 07/24/16 02:15 72 07/24/16 01:20 73 16 151/66 93 Nasal Cannula 3.0 07/23/16 23:23 85 16 147/67 92 Nasal Cannula 3.0 07/23/16 22:14 87 07/23/16 21:43 96 Nasal Cannula 4.0 07/23/16 21:43 96 Nasal Cannula 4.0 07/23/16 21:19 36.8 86 18 151/67 97 Nasal Cannula 4.0 Physical Exam General Appearance: WD/WN, + obese Eyes: normal inspection ENT: hearing grossly normal Neck: supple Respiratory/Chest: + decreased breath sounds Cardiovascular: regular rate, rhythm Abdomen: soft, + pertinent finding Extremities: + pedal edema (chronic leg swelling with oozing) 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: alert, normal mood/affect, oriented x 3 Skin: + rash (on left side, under abdominal pannus) Laboratory Results Test 07/23/16 22:15 07/23/16 23:38 07/24/16 00:45 07/24/16 07:15 RDW Standard Deviation 67.3 fL (36.4-46.3) RDW Coefficient of Variation 18.6 % (11.5-14.5) White Blood Count 8.70 K/uL (4.8-10.8) Red Blood Count 3.57 M/uL (4.2-5.4) Hemoglobin 10.9 g/dL (12.0-16.0) Hematocrit 35.8 % (37-47) Mean Corpuscular Volume 100.3 fL (80-100) Mean Corpuscular Hemoglobin 30.5 pg (25-34) Mean Corpuscular Hemoglobin Concent 30.4 g/dl (32-36) Platelet Count 269 K/uL (130-400) Mean Platelet Volume 10.1 fL (7.4-10.4) Neutrophils (%) (Auto) 76.5 % Lymphocytes (%) (Auto) 10.2 % Monocytes (%) (Auto) 11.7 % Eosinophils (%) (Auto) 0.9 % Basophils (%) (Auto) 0.2 % Neutrophils # (Auto) 6.65 K/uL (1.4-6.5) Lymphocytes # (Auto) 0.89 K/uL (1.2-3.4) Monocytes # (Auto) 1.02 K/uL (0.11-0.59) Eosinophils # (Auto) 0.08 K/uL (0-0.5) Basophils # (Auto) 0.02 K/uL (0-0.2) Immature Granulocyte % (Auto) 0.5 % Immature Granulocyte # (Auto) 0.04 K/uL (0.00-0.02) Nucleated RBC Absolute Count (auto) 0.14 K/uL (0-0) Nucleated Red Blood Cells % 1.6 % Est Creatinine Clear Calc Drug Dose 33.8 ml/min Direct Bilirubin mg/dl (0-0.2) Total Creatine Kinase 62 U/L (26-192) Creatine Kinase MB 1.3 ng/ml (0.5-3.6) Creatine Kinase MB Ratio 2.1 (0-3.0) Troponin I < 0.015 ng/ml (0-0.045) Chemistry Specimen Hemolysis Venous Blood pH 7.38 (7.36-7.41) Venous Blood Partial Pressure CO2 86 mmHg (38.0-50.0) Venous Blood Partial Pressure O2 76 mmHg Venous Blood HCO3 50 mmol/L Venous Blood Oxygen Saturation 76.9 % Venous Blood Base Excess 21.7 mmol/L Urine Color YELLOW Urine Appearance CLEAR (CLEAR) Urine pH 5.5 (4.5-7.5) Urine Specific [place] 1.010 (1.000-1.030) Urine Protein NEG (NEG) Urine Glucose (UA) NEG (NEG) Urine Ketones NEG (NEG) Urine Occult Blood NEG (NEG) Urine Nitrite NEG (NEG) Urine Bilirubin NEG (NEG) Urine Urobilinogen NEG (NEG) Urine Leukocyte Esterase NEG (NEG) Bedside Glucose 134 mg/dl (70-90) Test 07/24/16 07:58 07/24/16 09:00 Assessment and Plan 60-year-old female with a past medical history of cor pulmonale, CHF, COPD, chronic hypoxic respiratory failure requiring 3 L oxygen continuously, diabetes mellitus, CKD, morbid obesity, hyperlipidemia and chronic insufficiency presented to the ER with complaints of weakness. Acute kidney injury in setting of chronic kidney disease : Secondary to diabetic nephropathy and hypertensive sclerosis - Creatinine on admission 2.5, baseline around 1.7-2 - Received 500 mg Diamox today, IV fluids DC - Nephrology consult - Hemodialysis planned, PermCath placement planned for tomorrow Hypokalemia: - Continue on admission 2.9, today at 3.1- repleted Hypercalcemia: Serum free light chain ratio is elevated. UIEP was positive for IgG Mullens monoclonal protein during outpatient workup - Followed by Dr. Delong, pending further evaluation Cor pulmonale : Last echo 07/25/15: Hyperdynamic LV systolic function. Mild concentric LV hypertrophy. LV diastolic dysfunction. Mild RV dilatation and systolic dysfunction. Mild tricuspid regurgitation. Mildly elevated RV systolic pressure. Normal central venous pressure * Ejection Fraction = >70 % Daily weights, I's and O's COPD: - Advair, Spiriva, DuoNeb - Home dose of prednisone 15mg daily - 3L O2 via nasal cannula during the day, BiPAP overnight Chronic venous insufficiency Had cellulitis during last admission -weeping bilateral pedal edema - keep legs elevated with daily dressing changes - Diuretics as above - Continue doxycycline 100 mg twice a day, Cipro 500 mg twice a day HTN - Continue Toprol-XL 150 mg and verapamil CR 240 mg DM - last HbA1c 6.3 on 05/20/16 - insulin sliding scale - Glycemic consult Gout - asymptomatic - Allopurinol 100mg daily currently held Is currently on prednisone which would help with acute flares Peripheral neuropathy/chronic pain - Pregabalin 150 mg 3 times a day VTE prophylaxis - Heparin SQ History Resident Physician Supervision Note: I was present with Dr. Galaviz during the history and exam. I discussed the case with the resident and agree with the findings and plan as documented in the note. Any exceptions or clarifications are listed here. Patient reports mild improvement in feeling of diffuse fatigue and weakness, but with persistent 'twitching' which is what she attributes her fall to - she feels that she is unable to keep her feet underneath her and with difficulty eating because of spastic motions of her UE. General Appearance: WD/WN, obese Respiratory: chest non-tender, no respiratory distress, decreased breath sounds Cardiovascular: normal peripheral pulses, other (b/l LE edema stable from previous, dressings in place, C/D/I) Gastrointestinal: normal bowel sounds, non tender, soft, no organomegaly Assessment/Plan 60 y/o female h/o CHF, CKD III, chronic LE edema, COPD, h/o cellulitis (LE and pannus) for fall 2/2 weakness/twitching Weakness - likely 2/2 acute on chronic kidney disease - nephrology consulted, recommendations appreciated - gentle hydration and recommendations per nephrology Hypokalemia - repletion by PO Hypercalcemia - hydrate, trend CHF - monitor fluid status, gentle hydration as above, continue metoprolol DMII - basal/bolus regimen as noted, will titrate w/ FSBS COPD - continue baseline 3LO2, titrate as needed - continue prednisone, spiriva , HTN - continue metoprolol, verapamil Cellulitis - continue doxycycline FULL CODE Resident Tracking Resident Involvement: Resident Care Provided Care Provided: Adult Hospital Medicine
[2016-07-24] MEDS: FLUTICASONE/SALMETEROL (ADVAIR) 500/50 INH 14 PUFF INH SCH ×2 (10:09→19:48)
[2016-07-24] MEDS: PANTOprazole SOD 40 MG TAB PO SCH (10:10)
[2016-07-24] MEDS: TIOTROPIUM BROMIDE 5 PUFF/90 MCG INH INH SCH (10:10)
[2016-07-24] MEDS: CYANOCOBALAMIN 2,500 MCG SUBL TAB PO SCH (10:11)
[2016-07-24] MEDS: DOXYCYCLINE HYCLATE 100 MG CAP PO SCH ×2 (10:11→19:50)
[2016-07-24] MEDS: METOPROLOL SUCC 50MG EXT REL TAB PO SCH (10:11)
[2016-07-24] MEDS: PYRIDOXINE HCL 50 MG TAB PO SCH (10:11)
[2016-07-24] MEDS: ATORVASTATIN 40 MG TAB PO SCH (10:11)
[2016-07-24 10:20] LABS: BASO % 0.3 %; BASO ABS # 0.03 K/uL (0-0.2); COMPLETE YES; EOS % 2.2 %; HEMATOCRIT 36.4 % (37-47); IG% 0.8 %; MEAN CELL VOLUME 101.1 fL (80-100); MEAN CORPUSCULAR HGB CONC 29.7 g/dl (32-36); MEAN PLATELET VOLUME 10.2 fL (7.4-10.4); MONO % 12.6 %; NEUT % 67.1 %; PLATELET COUNT 284 K/uL (130-400); WHITE BLOOD COUNT 8.81 K/uL (4.8-10.8)
[2016-07-24] MEDS: PREGABALIN 150 MG CAP PO SCH ×3 (10:41→19:52)
[2016-07-24 10:53] LABS: ALB/GLOB RATIO 0.5 (0.9-2); ALKALINE PHOSPHATASE 85 U/L (45-117); ALT/SGPT 38 U/L (12-78); AST/SGOT 26 U/L (15-37); BLOOD UREA NITROGEN 80 mg/dl (7-18); BUN/CREATININE RATIO 33.4 (10-20); CALCIUM 10.2 mg/dl (8.5-10.1); CHLORIDE 86 mmol/L (98-107); GLUCOSE 181 mg/dl (70-99); MAGNESIUM 2.7 mg/dl (1.8-2.4); PHOSPHORUS 4.4 mg/dl (2.5-4.9); POTASSIUM 3.1 mmol/L (3.5-5.1); SODIUM 137 mmol/L (136-145)
[2016-07-24] MEDS ORDERED: DEXTROSE 50% 50 ML SYR IV PRN (11:00)
[2016-07-24] MEDS ORDERED: GLUCOSE 10 TABS/TUBE PO PRN (11:00)
[2016-07-24] MEDS ORDERED: GLUCAGON FOR INJ 1 MG VIAL SQ PRN (11:00)
[2016-07-24] MEDS ORDERED: GLUCOSE 40% GEL 15 GM TUBE PO PRN (11:00)
--- NOTE | 2016-07-24 11:18 | Pharmacy Progress Note ---
Glycemic Control Intl Consult Date of Service July 24, 2016. Scope Glycemic Pharmacist consulted by Dr Galaviz on 07/24/16 for glycemic control and to write orders per [facility] inpatient glycemic control protocol Objective Weight (Kilograms): 143.000 Accuchecks BSG (last 24hrs): Test 07/23/16 22:15 07/24/16 07:15 07/24/16 09:30 Random Glucose 159 mg/dl (70-99) 181 mg/dl (70-99) Bedside Glucose 134 mg/dl (70-90) Laboratory Data (last 24hrs) Test 07/23/16 22:15 07/24/16 09:30 Anion Gap -4.0 mmol/L BUN/Creatinine Ratio 31.0 33.4 Blood Urea Nitrogen 78 mg/dl 80 mg/dl Creatinine 2.50 mg/dl 2.40 mg/dl Potassium Level 2.9 mmol/L 3.1 mmol/L Sodium Level 134 mmol/L 137 mmol/L White Blood Count 8.70 K/uL 8.81 K/uL Red Blood Count 3.57 M/uL 3.60 M/uL Hemoglobin 10.9 g/dL 10.8 g/dL Hematocrit 35.8 % 36.4 % Mean Corpuscular Volume 100.3 fL 101.1 fL Mean Corpuscular Hemoglobin 30.5 pg 30.0 pg Mean Corpuscular Hemoglobin Concent 30.4 g/dl 29.7 g/dl Platelet Count 269 K/uL 284 K/uL Mean Platelet Volume 10.1 fL 10.2 fL Neutrophils (%) (Auto) 76.5 % 67.1 % Lymphocytes (%) (Auto) 10.2 % 17.0 % Monocytes (%) (Auto) 11.7 % 12.6 % Eosinophils (%) (Auto) 0.9 % 2.2 % Basophils (%) (Auto) 0.2 % 0.3 % Neutrophils # (Auto) 6.65 K/uL 5.91 K/uL Lymphocytes # (Auto) 0.89 K/uL 1.50 K/uL Monocytes # (Auto) 1.02 K/uL 1.11 K/uL Eosinophils # (Auto) 0.08 K/uL 0.19 K/uL Basophils # (Auto) 0.02 K/uL 0.03 K/uL Recent Pertinent Medications Outpatient Anti-diabetic Regimen: * Toujeo 70 units BID + Novolog 50/50/90/40 (confirmed with patient last dose of Lantus was 70 units 07/23 pm) * A1c = 6.3 % 05/20/16 Risk Factors for Insulin Resistance: * Steroids: Prednisone 10 mg daily (chronic dose) * Infection: Doxycycline PO for cellulitis * Diet: AHA/T2DM Assessment & Plan ASSESSMENT: * ADA & AACE recommend a goal blood sugar range 140-180 mg/dl for the majority of critically ill & non-critically ill patients. However, more stringent targets may be selected in individual cases. Will utilize more stringent goal of 110-140mg/dl based on patient age & comorbidities. * 60 year old T2DM female admitted with progressive weakness and acute on chronic kidney injury secondary to dehydration. Patient is well known to the glycemic service and was recently here 07/11-07/17. Her total out patient insulin dose is ~370 units. * The patient does not have additional stressors at this point in time, therefore, I suspect continuing her home basal insulin dose and using previous bolus parameters will be a sufficient starting regimen. * Will slightly decrease first dose of Lantus due to BSG within goal range and due to longer effect of Toujeo PLAN FOR INPATIENT GLYCEMIC CONTROL: * Basal insulin with LANTUS * 60 units this am * Will consider resuming home dose of 70 units BID based on further BSG values * Correctional Insulin with NOVOLOG ACHS or Q6hrs * Goal Range: Low 110 mg/dL - High 140 mg/dL * Correction Factor: 5 mg/dL/unit * Nutritional / Prandial insulin per carb ratio of 1 unit per 2 grams CHO consumed LOOKING AHEAD TO DISCHARGE: * Patient has good outpatient control as evidenced by A1c of 6.3% on 05/20/16 * I suspect patient will be able to resume home regimen of Toujeo 70 units BID and Novolog with meals and at bedtime * Please note that the plan above was derived based on current level of insulin resistance and hospital stress. These recommendations are appropriate for inpatient admission only. Plan of care upon discharge will need to be reassessed to avoid potential outpatient hypo/hyperglycemia. Thank you.
[2016-07-24 11:20] LABS: CARBON DIOXIDE 45 mmol/L (21-32)
[2016-07-24] MEDS ORDERED: INSULIN GLARGINE SOLOSTAR 100 UNITS/ML 3 ML PEN SC ONE (11:30)
[2016-07-24 12:11] VITALS: BP 128/62; PULSE 86; TEMP 37; O2SAT 94
[2016-07-24] MEDS: INSULIN ASPART 100 UNITS/ML 3 ML PEN SC SCH ×3 (13:10→21:33)
[2016-07-24] MEDS ORDERED: POTASSIUM CHLR 10 MEQ / WTR 10 MEQ in PREMIXED WATER 100 ML IV STA (13:43)
[2016-07-24] MEDS ORDERED: AcetaZOLAMIDE 250 MG TAB PO ONE (13:45)
[2016-07-24] MEDS ORDERED: HYDROmorphone INJ 1 MG/ML SYR IV STA (13:46)
--- NOTE | 2016-07-24 14:59 | Surgery Consultation ---
Consultation Date of Service July 24, 2016. Chief Complaint acute on chronic renal failure History of Present Illness The patient is a 60 year old female with multiple medical problems, admitted with acute on chronic renal failure, seen in consultation today for insertion of TDC for HD initiation. Pt currently on BiPAP, difficult to answer questions , but appears oriented. supplies most of HPI. Denies any c/o except SOB and fatigue. Vitals Vital Signs Past 12 Hours Date Time Temp Pulse Resp B/P Pulse Ox O2 Delivery O2 Flow Rate FiO2 07/24/16 12:59 Nasal Cannula 3.0 07/24/16 12:11 37.0 86 20 128/62 94 07/24/16 08:08 36.6 84 20 120/65 97 07/24/16 08:00 Nasal Cannula 3.0 07/24/16 04:18 36.4 77 18 135/67 93 Nasal Cannula 3.0 07/24/16 03:20 74 16 95 Nasal Cannula 3.0 Allergies Coded Allergies: Daptomycin (Verified Allergy, Mild, HIVES, 07/24/16) itching Codeine (Verified Allergy, Unknown, unknown, 07/24/16) has tolerated morphine Iodine (Verified Allergy, Unknown, 07/24/16) Shellfish (Verified Allergy, Unknown, 07/24/16) Sulfamethoxazole w/Trimethoprim (Verified Allergy, Unknown, RASH, 07/24/16) Home Medications Scheduled Allopurinol (Zyloprim), 100 MG PO DAILY Ascorbic Acid (Vitamin C 500 mg), 1,000 MG PO DAILY Atorvastatin (Lipitor), 40 MG PO DAILY Bumetanide (Bumetanide), 4 MG PO TID Cholecalciferol (Vitamin D3), 1,000 UNITS PO DAILY Cyanocobalamin (Vitamin B-12), 2,500 MCG PO DAILY Doxycycline Hyclate (Doxycycline Hyclate), 100 MG PO BID Fluticasone Prop/Salmeterol (Advair Diskus 500/50 60 Dose), 1 PUFF INH BID Insulin Aspart (Novolog Flexpen), 50 UNITS SQ W/BREAKFAST Insulin Aspart (Novolog Flexpen), 50 UNITS SQ W/LUNCH Insulin Aspart (Novolog Flexpen), 90 UNITS SQ W/SUPPER Insulin Aspart (Novolog Flexpen), 40 UNITS SQ HS Insulin Glargine (Toujeo Solostar), 70 UNIT SQ BID Lactic Acid (Ammonium Lactate) (Amlactin), 1 APPLN TOP BID Lorcaserin Hcl (Belviq), 10 MG PO BID Metolazone (Metolazone), 5 MG PO QAM Metoprolol Succ (Toprol Xl) (Toprol-Xl ), 150 MG PO DAILY Multiple Vitamins W/ Minerals (One Daily For Women), 1 TAB PO DAILY Pantoprazole (Pantoprazole Sodium), 40 MG PO QAM Potassium Ext Rel (Klor-Con), 80 MEQ PO DAILY Prednisone (Prednisone), 10 MG PO DIRECTED Pregabalin (Lyrica), 150 MG PO TID Pyridoxine (Vitamin B6), 200 MG PO DAILY Tiotropium [place] (Spiriva Handihaler), 1 CAP INH DAILY Verapamil HCl (Verapamil HCl ER), 240 MG PO HS Vitamin E (Vitamin E), 800 UNITS PO DAILY Scheduled PRN Ipratropium-Albuterol (Duoneb), 1 TREATMENT INH Q6 PRN for SOB/Wheezing Miconazole Nitrate (Desenex Shake Powder), 1 APPLN EXT PRN PRN for Affected Skin Folds Problem List Medical Problems: (1) Abdominal wall cellulitis (2) Abdominal wall cellulitis (3) Abrasion of toe of right foot (4) Acute kidney injury (5) Acute on chronic diastolic (congestive) heart failure (6) Acute respiratory failure with hypoxia and hypercapnia (7) Anemia (8) Asymptomatic bacteriuria (9) Cellulitis of abdominal wall (10) Cellulitis of leg (11) Cervical Disc Degen (12) CHF (congestive heart failure) (13) Chronic kidney disease (CKD) stage G3b/A1, moderately decreased glomerular filtration rate (GFR) between 30-44 mL/min/1.73 square meter and albuminuria creatinine ratio less than 30 mg/g (14) CO2 narcosis (15) COPD (chronic obstructive pulmonary disease) (16) Cor pulmonale, chronic (17) Cystitis (18) Diab Mariama Wo Compl, Type Ii Or Unspec Type, Uncontrolled (19) Diabetes (20) Edema (21) Hypercalcemia (22) Hyponatremia (23) Metabolic alkalosis with respiratory acidosis (24) Metabolic encephalopathy (25) Morbid obesity with BMI of 50.0-59.9, adult (26) Obesity hypoventilation syndrome (27) Obesity hypoventilation syndrome (28) Ovarian Cyst Nec/Nos (29) Pulmonary Collapse (30) Pulmonary nodules (31) Renal failure (ARF), acute on chronic (32) Sciatica (33) Venous stasis dermatitis of both lower extremities (34) Weakness Surgical / Medical History Hx Cardiac Surgery: No Hx Abdominal Surgery: Yes (HYSTERECTOMY) Hx Cancer Surgery: No Hx Thoracic Surgery: No Hx Orthopedic: No Hx Urinary Tract Surgery: No Past Medical/Surgical History: Diabetes, Hypertension, Kidney Disease Family History Cancer Diabetes mellitus Gallbladder disease Heart disease Lung disease Social History Smoking Status: Never Smoker Hx Tobacco Use In Past Year?: No Hx Alcohol Use - Type & Amnt: No Hx Substance Use -Type & Amnt: No Review of Systems Constitutional: + fatigue, + malaise, + weakness, No fever Skin: No change in color Respiratory: + AARON, + cough, + orthopnea, + short of breath, No hemoptysis Cardiovascular: + edema, No chest pain, No chest pressure, No intermittent claudication, No palpitations, No syncope Gastrointestinal: No abdominal pain Neurologic: + lethargy Physical Exam Constitutional: General Apperance: well-nourished, well-developed, obese Level of Distress: NAD Psychiatric: Mental Status: lethargic (wakes easily and answers appropriately), depressed Orientation: oriented except where noted, to time, to place, to person Memory: recent memory normal, remote memory normal Head: normocephalic, atraumatic Eyes: EOM: EOMI ENMT: normal ENT inspection, hearing grossly normal Neck: supple, trachea midline Lungs: Respiratory effort: no dyspnea Auscultation: deminished air movement, decreased breath sounds, wet rales/ crackles Cardiovascular: Apical Impulse: not displaced Heart Auscultation: RRR, no rubs, no gallops Peripheral Pulses: Pulses: full and equal, in all extremities except if noted Bruits: none appreciated Brachial Pulses: normal on the left, normal on the right Radial Pulse: normal on the left, normal on the right Ulnar Pulse: normal on the left, normal on the right Posterior Tibialis Pulse: decreased on the left, decreased on the right Dorsalis Pedis Pulse: decreased on the left, decreased on the right Abdomen: Bowel Sounds: normal Inspection & Palpation: soft, non-distended, no tenderness, guarding & rebound Musculoskeletal: normal strength (5/5 throughout), normal tone Extremities: Upper Right: no cyanosis, edema Upper Left: no cyanosis, no varicosities, edema Lower Right: no cyanosis, no varicosities, edema Lower Left: no cyanosis, no varicosities, edema Neurologic: Cranial Nerves: grossly intact Sensation: grossly intact Assessment and Plan ASSESSMENT and PLAN: Acute on chronic renal failure PT for permcath insertion tomorrow. D/T orthopnea and need for BiPAP, will discuss with anesthesia as well. would like vein mapping performed during admission in preparation for AVF creation. Dr Thapa out of town next week, will perform AVF creation as outpt.
[2016-07-24 16:09] VITALS: BP 129/63; PULSE 84; TEMP 36.4; O2SAT 95
--- NOTE | 2016-07-24 19:08 | Nephrology Consultation ---
Nephrology Consultation Date & Providers Date of Consultation: July 24, 2016. Primary Care Provider: Emily Isaac C.R.N.P Referring Provider: Reason for Consultation GUNNAR History of Present Illness Mrs. Gaytan is a 60 year old white female who is well known to the [facility] nephrology service. She was seen and evaluated today to assist with management of refractory hypervolemia and multiple electrolyte abnormalities. Medical records in the hospital EMR were reviewed in detail and the plan of care was discussed with the hospitalist team, vascular surgery and the patient's primary acct exec. Hemalatha's medical history is significant for chronic kidney disease, HTN, obesity (BMI 52) and obesity hypoventilation syndrome. In 07/15 she had an echocardiogram which revealed LVEF 70%, diastolic dysfunction and RVSP 40 mm HG. As an outpatient she has been monitored closely by Pulmonology and Cardiology. Pulmonology recommended a sleep study and CPAP therapy. The patient declined. Cardiology had been adjusting the patient's diuretic regimen. In 06/16 Mrs. Gaytan was hospitalized w/ volume overload and hypercalcemia. Hypercalcemia evaluation revealed the presence on monoclonal light chains in the serum. Patient is currently undergoing Oncology evaluation by Dr. Delong. Mrs. Gaytan initially responded to aggressive loop diuretic therapy. At the time of discharge her weight was down to 145 kg and she was able to ambulate short distances. She was maintained on Bumex 3 mg po TID. Despite this regimen she again developed fluid retention and was readmitted to [facility] earlier this month. Her weight was up 10 kg and she developed weeping bullae on her legs and cellulitis of her abdominal wall. She was admitted to the hospital for antibiotic therapy and IV diuretics. Since discharge, she has struggled significantly with volume management. Activity tolerance has been significantly limited. She requires increasing doses of diuretics to maintain appropriate fluid balance and suffers from associated electrolyte abnormalities. Due to weakness and unsteadiness on her feet she presented to the [facility] today. Past Medical/Surgical History Medical: # CKD # HTN # AODM # Obesity (BMI 56) # COPD - on chronic O2 at 3 L/min ATC # Obesity hypoventilation syndrome # Lung nodule - stable over several years of observation by pulmonology # Arthritis involving the hands - management as per Dr. Giordano # Chronic lower extremity edema due to obesity hypoventilation syndrome/ pulmonary hypertension. This has been managed with loop diuretics and Bryson bandage wraps. Echocardiogram October 2014 revealed LVEF 55 - 60%, mild LVH, RVSP 45, mild RV dilation and moderate TR # Serum monoclonal light chain - monitored by Dr. Delong Allergies Coded Allergies: Daptomycin (Verified Allergy, Mild, HIVES, 07/24/16) itching Codeine (Verified Allergy, Unknown, unknown, 07/24/16) has tolerated morphine Iodine (Verified Allergy, Unknown, 07/24/16) Shellfish (Verified Allergy, Unknown, 07/24/16) Sulfamethoxazole w/Trimethoprim (Verified Allergy, Unknown, RASH, 07/24/16) Inpatient Medications Current Inpatient Medications Medications (Trade) Dose Ordered Sig/Duyen Route Start Time Stop Time Status Last Admin Dose Admin Heparin Sodium (Porcine) (Heparin Sq 5000 Unit/0.5ml) 5,000 unit Q8H SQ 07/24/16 06:00 08/23/16 05:59 07/24/16 14:10 5,000 UNIT Acetaminophen (Tylenol Tab) 650 mg Q4H PRN PO 07/24/16 03:15 08/23/16 03:14 Al Hydrox/Mg Hydrox/Simethicone (Maalox Max Susp) 15 ml Q4H PRN PO 07/24/16 03:15 08/23/16 03:14 Magnesium Hydroxide (Milk Of Magnesia Susp) 30 ml Q12H PRN PO 07/24/16 03:15 08/23/16 03:14 Zolpidem Tartrate (Ambien Tab) 5 mg HSZ PRN PO 07/24/16 03:15 08/23/16 03:14 Ondansetron HCl (Zofran Inj) 4 mg Q6H PRN IV 07/24/16 03:15 08/23/16 03:14 Polyethylene (Miralax Powder Packet) 17 gm DAILY PRN PO 07/24/16 03:15 08/23/16 03:14 Atorvastatin Calcium (Lipitor Tab) 40 mg QAM PO 07/24/16 09:00 08/23/16 08:59 07/24/16 10:11 40 MG Doxycycline Hyclate (Vibramycin Cap) 100 mg BID PO 07/24/16 09:00 07/25/16 23:59 07/24/16 10:11 100 MG Salmeterol Xinafoate/ Fluticasone (Advair Diskus 500/50 Inh) 1 puff BID INH 07/24/16 09:00 08/23/16 08:59 07/24/16 10:09 1 PUFF Albuterol/ Ipratropium (Duoneb) 1 ml Q6 PRN INH 07/24/16 03:15 08/23/16 03:14 Ammonium Lactate (Lac-Hydrin) 1 appl BID EXT 07/24/16 09:00 08/23/16 08:59 07/24/16 09:00 1 APPL Metoprolol Succinate (Toprol Xl Tab) 150 mg DAILY PO 07/24/16 09:00 08/23/16 08:59 07/24/16 10:11 150 MG Miconazole Nitrate (Desenex Powder) 1 appln PRN PRN EXT 07/24/16 03:15 08/23/16 03:14 Pantoprazole Sodium (Protonix Tab) 40 mg QAM PO 07/24/16 09:00 08/23/16 08:59 07/24/16 10:10 40 MG Pregabalin (Lyrica Cap) 150 mg TID PO 07/24/16 09:00 08/23/16 08:59 07/24/16 14:19 150 MG Pyridoxine HCl (Vitamin B-6 Tab) 200 mg DAILY PO 07/24/16 09:00 08/23/16 08:59 07/24/16 10:11 200 MG Tiotropium [place] (Spiriva Handihaler Inhaler) 1 puff DAILY INH 07/24/16 09:00 08/23/16 08:59 07/24/16 10:10 1 PUFF Verapamil HCl (Calan-Sr Tab) 240 mg HS PO 07/24/16 21:00 08/23/16 20:59 Cyanocobalamin (Vitamin B-12 Tab) 2,500 mcg DAILY PO 07/24/16 09:00 08/23/16 08:59 07/24/16 10:11 2,500 MCG Insulin Aspart (novoLOG ASPART) SLIDING SCALE ACHS SC 07/24/16 11:00 08/23/16 10:59 07/24/16 18:28 36 UNITS Glucose (Glucose 40% Gel) 15-30 GRAMS 15 GRAMS... UD PRN PO 07/24/16 11:00 08/23/16 10:59 Glucose (Glucose Chew Tab) 4-8 Tablets 4 Tabl... UD PRN PO 07/24/16 11:00 08/23/16 10:59 Dextrose (Dextrose 50% 50ML Syringe) 25-50ML OF 50% DW IV FOR... UD PRN IV 07/24/16 11:00 08/23/16 10:59 Glucagon (Glucagon Inj) 1 mg UD PRN SQ 07/24/16 11:00 08/23/16 10:59 Insulin Glargine SEE PROTOCOL TEXT ... BID SC 07/24/16 21:00 08/23/16 20:59 Cefazolin Sodium (Ancef 3000 Mg/ 65 ml D5W) 65 ml @ 100 mls/hr PREOP IV 07/25/16 06:00 07/25/16 18:00 Prednisone (PredniSONE TAB) 15 mg DAILY PO 07/25/16 09:00 08/24/16 08:59 Ciprofloxacin (Cipro Tab) 500 mg BID PO 07/24/16 21:00 08/03/16 20:59 Family History Cancer Diabetes mellitus Gallbladder disease Heart disease Lung disease Social History Smoking Status: Never Smoker Drug Use: none Marital Status: Housing Status: lives with family Occupation: unemployed Review of Systems A complete review of systems was performed. Pertinent positives are noted above. All other systems are negative. Physical Exam Date Time Temp Pulse Resp B/P Pulse Ox O2 Delivery O2 Flow Rate FiO2 07/24/16 16:09 36.4 84 16 129/63 95 07/24/16 16:07 Nasal Cannula 3.0 CPAP 07/24/16 12:59 Nasal Cannula 3.0 07/24/16 12:11 37.0 86 20 128/62 94 07/24/16 08:08 36.6 84 20 120/65 97 07/24/16 08:00 Nasal Cannula 3.0 07/24/16 04:18 36.4 77 18 135/67 93 Nasal Cannula 3.0 07/24/16 03:20 74 16 95 Nasal Cannula 3.0 07/24/16 02:15 72 07/24/16 01:20 73 16 151/66 93 Nasal Cannula 3.0 07/23/16 23:23 85 16 147/67 92 Nasal Cannula 3.0 07/23/16 22:14 87 07/23/16 21:43 96 Nasal Cannula 4.0 07/23/16 21:43 96 Nasal Cannula 4.0 07/23/16 21:19 36.8 86 18 151/67 97 Nasal Cannula 4.0 General Appearance: + obese, + pertinent finding (lethargic) Head: normocephalic, atraumatic Eyes: normal inspection, sclerae normal ENT: normal ENT inspection, pharynx normal Neck: supple, + pertinent finding (thick, unable to appreciate JVP) Respiratory/Chest: no respiratory distress, no accessory muscle use, + decreased breath sounds Cardiovascular: regular rate, rhythm, no gallop Abdomen/GI: + distended, + pertinent finding (obese) Extremities/Musculoskelatal: + pertinent finding (+3 pitting BL LE edema) Neurologic/Psych: + pertinent finding (occassional myoclonic jerks, no focal abnormalities) Skin: normal color Laboratory Results Last 24 Hours Test 07/23/16 22:15 07/23/16 23:38 07/24/16 00:45 07/24/16 07:15 White Blood Count 8.70 K/uL Red Blood Count 3.57 M/uL Hemoglobin 10.9 g/dL Hematocrit 35.8 % Mean Corpuscular Volume 100.3 fL Mean Corpuscular Hemoglobin 30.5 pg Mean Corpuscular Hemoglobin Concent 30.4 g/dl Platelet Count 269 K/uL Mean Platelet Volume 10.1 fL Neutrophils (%) (Auto) 76.5 % Lymphocytes (%) (Auto) 10.2 % Monocytes (%) (Auto) 11.7 % Eosinophils (%) (Auto) 0.9 % Basophils (%) (Auto) 0.2 % Neutrophils # (Auto) 6.65 K/uL Lymphocytes # (Auto) 0.89 K/uL Monocytes # (Auto) 1.02 K/uL Eosinophils # (Auto) 0.08 K/uL Basophils # (Auto) 0.02 K/uL RDW Standard Deviation 67.3 fL RDW Coefficient of Variation 18.6 % Immature Granulocyte % (Auto) 0.5 % Immature Granulocyte # (Auto) 0.04 K/uL Nucleated RBC Absolute Count (auto) 0.14 K/uL Nucleated Red Blood Cells % 1.6 % Sodium Level 134 mmol/L Potassium Level 2.9 mmol/L Chloride Level 83 mmol/L Carbon Dioxide Level 55 mmol/L Anion Gap -4.0 mmol/L Blood Urea Nitrogen 78 mg/dl Creatinine 2.50 mg/dl Est Creatinine Clear Calc Drug Dose 33.8 ml/min Estimated GFR () 23.1 Estimated GFR (Non- 19.9 BUN/Creatinine Ratio 31.0 Random Glucose 159 mg/dl Calcium Level 10.7 mg/dl Magnesium Level 2.5 mg/dl Total Bilirubin 0.2 mg/dl Direct Bilirubin mg/dl Aspartate Amino Transf (AST/SGOT) 28 U/L Alanine Aminotransferase (ALT/SGPT) 42 U/L Alkaline Phosphatase 81 U/L Total Creatine Kinase 62 U/L Creatine Kinase MB 1.3 ng/ml Creatine Kinase MB Ratio 2.1 Troponin I < 0.015 ng/ml Total Protein 9.4 gm/dl Albumin 3.0 gm/dl Chemistry Specimen Hemolysis Venous Blood pH 7.38 Venous Blood Partial Pressure CO2 86 mmHg Venous Blood Partial Pressure O2 76 mmHg Venous Blood HCO3 50 mmol/L Venous Blood Oxygen Saturation 76.9 % Venous Blood Base Excess 21.7 mmol/L Urine Color YELLOW Urine Appearance CLEAR Urine pH 5.5 Urine Specific [place] 1.010 Urine Protein NEG Urine Glucose (UA) NEG Urine Ketones NEG Urine Occult Blood NEG Urine Nitrite NEG Urine Bilirubin NEG Urine Urobilinogen NEG Urine Leukocyte Esterase NEG Bedside Glucose 134 mg/dl Test 07/24/16 09:30 07/24/16 11:24 07/24/16 16:14 White Blood Count 8.81 K/uL Red Blood Count 3.60 M/uL Hemoglobin 10.8 g/dL Hematocrit 36.4 % Mean Corpuscular Volume 101.1 fL Mean Corpuscular Hemoglobin 30.0 pg Mean Corpuscular Hemoglobin Concent 29.7 g/dl Platelet Count 284 K/uL Mean Platelet Volume 10.2 fL Neutrophils (%) (Auto) 67.1 % Lymphocytes (%) (Auto) 17.0 % Monocytes (%) (Auto) 12.6 % Eosinophils (%) (Auto) 2.2 % Basophils (%) (Auto) 0.3 % Neutrophils # (Auto) 5.91 K/uL Lymphocytes # (Auto) 1.50 K/uL Monocytes # (Auto) 1.11 K/uL Eosinophils # (Auto) 0.19 K/uL Basophils # (Auto) 0.03 K/uL RDW Standard Deviation 70.0 fL RDW Coefficient of Variation 18.9 % Immature Granulocyte % (Auto) 0.8 % Immature Granulocyte # (Auto) 0.07 K/uL Nucleated RBC Absolute Count (auto) 0.17 K/uL Nucleated Red Blood Cells % 1.9 % Sodium Level 137 mmol/L Potassium Level 3.1 mmol/L Chloride Level 86 mmol/L Carbon Dioxide Level 45 mmol/L Anion Gap mmol/L Blood Urea Nitrogen 80 mg/dl Creatinine 2.40 mg/dl Est Creatinine Clear Calc Drug Dose 35.1 ml/min Estimated GFR () 24.3 Estimated GFR (Non- 20.9 BUN/Creatinine Ratio 33.4 Random Glucose 181 mg/dl Calcium Level 10.2 mg/dl Phosphorus Level 4.4 mg/dl Magnesium Level 2.7 mg/dl Total Bilirubin 0.3 mg/dl Aspartate Amino Transf (AST/SGOT) 26 U/L Alanine Aminotransferase (ALT/SGPT) 38 U/L Alkaline Phosphatase 85 U/L Total Protein 9.4 gm/dl Albumin 3.0 gm/dl Globulin 6.4 gm/dl Albumin/Globulin Ratio 0.5 Bedside Glucose 219 mg/dl 220 mg/dl Impression (1) Hypercalcemia (2) Hypokalemia (3) Metabolic alkalosis (4) Renal failure (ARF), acute on chronic (5) Morbid obesity with BMI of 50.0-59.9, adult (6) Obesity hypoventilation syndrome (7) Edema (8) Respiratory failure with hypercapnia Recommendations EDEMA: -- Related to obesity and right heart failure -- Failed outpatient oral diuretic regimen -- Multiple admissions requiring IV diuretic to alleviate tense edema and weeping bullae. Suggest continued management with CONCEPTOR at this time. -- Attempts at diuresis in the past have been met with hypotension, weakness and progressive metabolic alkalosis HYPOKALEMIA: -- Oral and IV replacement ordered -- Repeat metabolic profile tomorrow AM HYPERCAPNEIA: -- Encourage discussion with pulmonology and management with intermittent positive pressure ventilation CHRONIC KIDNEY DISEASE: -- Due to advanced CKD and advanced CRS the patient has not been able to effectively manage with diuretic therapy -- After discussing with the patient, her and primary acct exec, it was agreed that management with initiation of hemodialysis would be most appropriate -- Vascular surgery has been consulted for permcath placement 50 minute visit provided to the patient today. This was necessary to review her medical record, perform physical and discuss possible renal replacement therapy HYPERCALCEMIA: -- Serum calcium chronically slightly elevated -- Serum free light chain ration was markedly elevated. Patient has been undergoing outpatient evaluation for a monoclonal gammopathy by Dr. Delong
[2016-07-24 19:37] VITALS: BP 132/66; PULSE 86; TEMP 36.5; O2SAT 96
[2016-07-24] MEDS: CIPROFLOXACIN 500 MG TAB PO SCH (19:49)
[2016-07-24] MEDS: VERAPAMIL HCL 240 MG TABCR PO SCH (19:49)
[2016-07-24] MEDS: INSULIN GLARGINE SOLOSTAR 100 UNITS/ML 3 ML PEN SC SCH (21:34)
[2016-07-24 23:36] VITALS: BP 136/74; PULSE 79; TEMP 36.7; O2SAT 91
[2016-07-25] VITALS (16 sets, daily range): BP systolic 108–159; BP diastolic 51–74; PULSE 65–81; TEMP 36.3–37; O2SAT 91–95
[2016-07-25] MEDS: HEPARIN SOD 5000 UNIT/0.5 ML CARP SQ SCH ×3 (05:38→21:16)
[2016-07-25] MEDS ORDERED: CEFAZOLIN 3000 MG/65 ML D5W IV SCH (06:00)
[2016-07-25] MEDS ORDERED: CEFAZOLIN IV 2,000 MG in DEXTROSE 5% 50ML 50 ML IV ONE (08:00)
[2016-07-25 08:08] LABS: HEMATOCRIT 36.4 % (37-47); MEAN CELL VOLUME 100.8 fL (80-100); MEAN CORPUSCULAR HEMOGLOBIN 29.4 pg (25-34); MEAN CORPUSCULAR HGB CONC 29.1 g/dl (32-36); MEAN PLATELET VOLUME 10.6 fL (7.4-10.4); PLATELET COUNT 274 K/uL (130-400); RED BLOOD COUNT 3.61 M/uL (4.2-5.4); WHITE BLOOD COUNT 9.96 K/uL (4.8-10.8)
[2016-07-25] MEDS: FLUTICASONE/SALMETEROL (ADVAIR) 500/50 INH 14 PUFF INH SCH ×2 (08:09→21:10)
[2016-07-25] MEDS: PANTOprazole SOD 40 MG TAB PO SCH (08:09)
[2016-07-25] MEDS: PREGABALIN 150 MG CAP PO SCH ×3 (08:09→21:18)
[2016-07-25] MEDS: TIOTROPIUM BROMIDE 5 PUFF/90 MCG INH INH SCH (08:10)
[2016-07-25] MEDS: METOPROLOL SUCC 50MG EXT REL TAB PO SCH (08:10)
[2016-07-25] MEDS: ATORVASTATIN 40 MG TAB PO SCH (08:10)
[2016-07-25] MEDS: DOXYCYCLINE HYCLATE 100 MG CAP PO SCH ×2 (08:11→21:10)
[2016-07-25] MEDS: CYANOCOBALAMIN 2,500 MCG SUBL TAB PO SCH (08:11)
[2016-07-25] MEDS: PYRIDOXINE HCL 50 MG TAB PO SCH (08:11)
[2016-07-25] MEDS: CIPROFLOXACIN 500 MG TAB PO SCH (08:12)
[2016-07-25] MEDS ORDERED: HYDROmorphone INJ 1 MG/ML SYR IV PRN (08:15)
[2016-07-25] MEDS ORDERED: MEPERIDINE HCL 25 MG/ML CARP IV PRN (08:15)
[2016-07-25] MEDS ORDERED: ONDANSETRON INJ 2 MG/ML 2 ML VIAL IV PRN (08:15)
[2016-07-25] MEDS ORDERED: ATROPINE SULFATE 0.1 MG/ML 5ML SYR IV PRN (08:15)
[2016-07-25] MEDS ORDERED: LABETALOL HCL IV 5 MG/ML 20ML IV PRN (08:15)
[2016-07-25] MEDS ORDERED: EpHEDrine SULFATE INJ 50 MG/ML AMP IV PRN (08:15)
[2016-07-25] MEDS: AMMONIUM LACTATE 12% LOTION 225 GM BTL EXT SCH ×2 (08:17→21:11)
[2016-07-25] MEDS: INSULIN ASPART 100 UNITS/ML 3 ML PEN SC SCH ×4 (08:20→21:17)
[2016-07-25] MEDS: INSULIN GLARGINE SOLOSTAR 100 UNITS/ML 3 ML PEN SC SCH (08:20)
--- NOTE | 2016-07-25 09:50 | Family Medicine Progress Note ---
Progress Note Date of Service July 25, 2016. Subjective Pt evaluation today including: conversation w/ patient, physical exam, chart review, lab review Doing better today. Was well rested last night and had used her BiPAP. Also states that the Dilaudid she had received for ankle pain had helped immensely. Denies any fevers or chills, chest pain, shortness of breath, palpitations Constitutional: No chills, No fever Eyes: No worsening of vision ENT: No hearing loss Respiratory: No cough, No sputum Breast: No breast lump Abdomen: No nausea, No pain, No vomiting Female : No dysuria Neurologic: No memory loss Psychiatric: No depression symptoms Heme: No abnormal bleeding/bruising Skin: No rash Medications Current Inpatient Medications Medications (Trade) Dose Ordered Sig/Duyen Route Start Time Stop Time Status Last Admin Dose Admin Heparin Sodium (Porcine) (Heparin Sq 5000 Unit/0.5ml) 5,000 unit Q8H SQ 07/24/16 06:00 08/23/16 05:59 07/24/16 19:51 5,000 UNIT Acetaminophen (Tylenol Tab) 650 mg Q4H PRN PO 07/24/16 03:15 08/23/16 03:14 Al Hydrox/Mg Hydrox/Simethicone (Maalox Max Susp) 15 ml Q4H PRN PO 07/24/16 03:15 08/23/16 03:14 Magnesium Hydroxide (Milk Of Magnesia Susp) 30 ml Q12H PRN PO 07/24/16 03:15 08/23/16 03:14 Zolpidem Tartrate (Ambien Tab) 5 mg HSZ PRN PO 07/24/16 03:15 08/23/16 03:14 Ondansetron HCl (Zofran Inj) 4 mg Q6H PRN IV 07/24/16 03:15 08/23/16 03:14 Polyethylene (Miralax Powder Packet) 17 gm DAILY PRN PO 07/24/16 03:15 08/23/16 03:14 Atorvastatin Calcium (Lipitor Tab) 40 mg QAM PO 07/24/16 09:00 08/23/16 08:59 07/25/16 08:10 40 MG Doxycycline Hyclate (Vibramycin Cap) 100 mg BID PO 07/24/16 09:00 07/25/16 23:59 07/25/16 08:11 100 MG Salmeterol Xinafoate/ Fluticasone (Advair Diskus 500/50 Inh) 1 puff BID INH 07/24/16 09:00 08/23/16 08:59 07/25/16 08:09 1 PUFF Albuterol/ Ipratropium (Duoneb) 1 ml Q6 PRN INH 07/24/16 03:15 08/23/16 03:14 Ammonium Lactate (Lac-Hydrin) 1 appl BID EXT 07/24/16 09:00 08/23/16 08:59 07/25/16 08:17 1 APPL Metoprolol Succinate (Toprol Xl Tab) 150 mg DAILY PO 07/24/16 09:00 08/23/16 08:59 07/25/16 08:10 150 MG Miconazole Nitrate (Desenex Powder) 1 appln PRN PRN EXT 07/24/16 03:15 08/23/16 03:14 Pantoprazole Sodium (Protonix Tab) 40 mg QAM PO 07/24/16 09:00 08/23/16 08:59 07/25/16 08:09 40 MG Pregabalin (Lyrica Cap) 150 mg TID PO 07/24/16 09:00 08/23/16 08:59 07/25/16 08:09 150 MG Pyridoxine HCl (Vitamin B-6 Tab) 200 mg DAILY PO 07/24/16 09:00 08/23/16 08:59 07/25/16 08:11 200 MG Tiotropium [place] (Spiriva Handihaler Inhaler) 1 puff DAILY INH 07/24/16 09:00 08/23/16 08:59 07/25/16 08:10 1 PUFF Verapamil HCl (Calan-Sr Tab) 240 mg HS PO 07/24/16 21:00 08/23/16 20:59 07/24/16 19:49 240 MG Cyanocobalamin (Vitamin B-12 Tab) 2,500 mcg DAILY PO 07/24/16 09:00 08/23/16 08:59 07/25/16 08:11 2,500 MCG Insulin Aspart (novoLOG ASPART) SLIDING SCALE ACHS SC 07/24/16 11:00 08/23/16 10:59 07/25/16 13:56 6 UNITS Glucose (Glucose 40% Gel) 15-30 GRAMS 15 GRAMS... UD PRN PO 07/24/16 11:00 08/23/16 10:59 Glucose (Glucose Chew Tab) 4-8 Tablets 4 Tabl... UD PRN PO 07/24/16 11:00 08/23/16 10:59 Dextrose (Dextrose 50% 50ML Syringe) 25-50ML OF 50% DW IV FOR... UD PRN IV 07/24/16 11:00 08/23/16 10:59 Glucagon (Glucagon Inj) 1 mg UD PRN SQ 07/24/16 11:00 08/23/16 10:59 Prednisone (PredniSONE TAB) 15 mg DAILY PO 07/25/16 09:00 08/24/16 08:59 07/25/16 08:10 15 MG Ciprofloxacin (Cipro Tab) 500 mg BID PO 07/24/16 21:00 08/03/16 20:59 07/25/16 08:12 500 MG Insulin Glargine (Lantus Solostar Pen) 70 unit BID SC 07/25/16 21:00 07/25/16 23:59 Insulin Glargine (Lantus Vial) 70 unit BID SC 07/26/16 09:00 08/25/16 08:59 Objective Vital Signs Date Time Temp Pulse Resp B/P Pulse Ox O2 Delivery O2 Flow Rate FiO2 07/25/16 15:42 36.3 68 123/63 07/25/16 15:23 36.4 65 18 115/56 94 Room Air 07/25/16 15:15 65 115/56 07/25/16 15:00 65 111/58 07/25/16 14:45 68 108/56 07/25/16 14:30 73 121/62 07/25/16 14:15 73 119/51 07/25/16 14:00 73 119/57 07/25/16 13:45 81 117/67 07/25/16 13:45 75 120/59 07/25/16 13:30 80 132/63 07/25/16 13:26 80 152/72 07/25/16 13:15 36.6 78 154/74 07/25/16 12:56 Nasal Cannula 5.0 07/25/16 12:30 36.6 77 16 155/68 92 Nasal Cannula 4 07/25/16 12:20 75 14 152/74 92 Nasal Cannula 4 07/25/16 12:10 76 13 163/76 93 Nasal Cannula 4 07/25/16 12:00 76 13 155/70 93 Nasal Cannula 4 07/25/16 11:57 36.1 77 15 157/71 92 Nasal Cannula 4 07/25/16 08:00 Nasal Cannula 3.0 07/25/16 07:58 37.0 81 18 132/65 95 07/25/16 04:00 Nasal Cannula 3.0 07/25/16 03:47 36.5 76 20 130/70 91 BiPAP 07/25/16 00:01 Nasal Cannula 3.0 07/24/16 23:36 36.7 79 20 136/74 91 Nasal Cannula 3.0 Humidified Oxygen 07/24/16 20:00 Nasal Cannula 3.0 07/24/16 19:37 36.5 86 18 132/66 96 Physical Exam General Appearance: WD/WN, no apparent distress Eyes: normal inspection ENT: normal ENT inspection, hearing grossly normal Neck: supple Respiratory/Chest: chest non-tender, lungs clear, normal breath sounds Cardiovascular: regular rate, rhythm Abdomen: normal bowel sounds, non tender, soft Extremities: normal range of motion, + pedal edema (with oozing) 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: alert, normal mood/affect, oriented x 3 Laboratory Results 07/25/16 07:30 07/25/16 07:30 Test 07/25/16 07:30 07/25/16 16:07 Red Blood Count 3.61 M/uL (4.2-5.4) Mean Corpuscular Volume 100.8 fL (80-100) Mean Corpuscular Hemoglobin 29.4 pg (25-34) Mean Corpuscular Hemoglobin Concent 29.1 g/dl (32-36) RDW Standard Deviation 69.4 fL (36.4-46.3) RDW Coefficient of Variation 19.2 % (11.5-14.5) Mean Platelet Volume 10.6 fL (7.4-10.4) Nucleated RBC Absolute Count (auto) 0.11 K/uL (0-0) Nucleated Red Blood Cells % 1.1 % Anion Gap 6.0 mmol/L (3-11) Est Creatinine Clear Calc Drug Dose 36.7 ml/min Estimated GFR () 25.5 Estimated GFR (Non- 22.0 BUN/Creatinine Ratio 35.9 (10-20) Calcium Level 9.9 mg/dl (8.5-10.1) Phosphorus Level 3.7 mg/dl (2.5-4.9) Albumin 3.0 gm/dl (3.4-5.0) Hepatitis B Surface Antibody NEG Bedside Glucose 177 mg/dl (70-90) Assessment and Plan 60-year-old female with a past medical history of cor pulmonale, CHF, COPD, chronic hypoxic respiratory failure requiring 3 L oxygen continuously, diabetes mellitus, CKD, morbid obesity, hyperlipidemia and chronic insufficiency presented to the ER with complaints of weakness. Acute kidney injury in setting of chronic kidney disease : Secondary to diabetic nephropathy and hypertensive sclerosis - Creatinine on admission 2.5, baseline around 1.7-2 - Received 500 mg Diamox yesterday - Nephrology consult- appreciate input - Hemodialysis planned, PermCath placement planned for today Hypokalemia: - Continue on admission 2.9, today at 3.4- repleted Hypercalcemia: Serum free light chain ratio is elevated. UIEP was positive for IgG [place] monoclonal protein during outpatient workup - Followed by Dr. Delong, pending further evaluation Cor pulmonale : Last echo 07/25/15: Hyperdynamic LV systolic function. Mild concentric LV hypertrophy. LV diastolic dysfunction. Mild RV dilatation and systolic dysfunction. Mild tricuspid regurgitation. Mildly elevated RV systolic pressure. Normal central venous pressure * Ejection Fraction = >70 % Daily weights, I's and O's COPD: - Advair, Spiriva, DuoNeb - Home dose of prednisone 15mg daily - 3L O2 via nasal cannula during the day, BiPAP overnight Chronic venous insufficiency Had cellulitis during last admission -weeping bilateral pedal edema - keep legs elevated with daily dressing changes - Continue doxycycline 100 mg twice a day HTN - Continue Toprol-XL 150 mg and verapamil CR 240 mg DM - last HbA1c 6.3 on 05/20/16 - insulin sliding scale - Glycemic consult Gout - asymptomatic - Allopurinol 100mg daily currently held Is currently on prednisone which would help with acute flares Peripheral neuropathy/chronic pain - Pregabalin 150 mg 3 times a day , Dilaudid when necessary VTE prophylaxis - Heparin SQ Resident Tracking Resident Involvement: Resident Care Provided Care Provided: Adult Hospital Medicine History Resident Physician Supervision Note: I was present with Dr. Galaviz during the history and exam. I discussed the case with the resident and agree with the findings and plan as documented in the note. Any exceptions or clarifications are listed here. Pt reports improvement in weakness and malaise, as well as improvement in b/l LE edema following dialysis. Still somewhat somnolent, presumably from anesthesia, but tolerating CPAP well and without complaint of discomfort. General Appearance: mild distress, obese Respiratory: decreased breath sounds, other (TTP at catheter site) Cardiovascular: normal peripheral pulses, regular rate, rhythm, no murmur, other (improved edema of the b/l LE) Gastrointestinal: normal bowel sounds, non tender, soft, no organomegaly Assessment/Plan 60 y/o female h/o CHF, CKD III, chronic LE edema, COPD, h/o cellulitis (LE and pannus) for fall 2/2 weakness/twitching COPD - baseline 3LO2, presently at 4-5L - continue prednisone, spiriva, duonebs - encourage CPAP use for improved oxygenation Post-procedural pain - continue dilaudid q6 Acute on CKD stage III on dialysis - nephrology consulted, recommendations appreciated - fluid and electrolyte management recommendations per nephrology Electrolyte abnormalities - trend BMP in AM, next dialysis Thursday CHF - fluid status through dialysis, continue metoprolol DMII - basal/bolus regimen as noted, will titrate w/ FSBS HTN - continue metoprolol, verapamil Cellulitis - continue doxycycline
[2016-07-25] MEDS ORDERED: MIDAZOLAM HCL 1 MG/ML 2ML VIAL ONE ×2 (09:51)
[2016-07-25] MEDS ORDERED: PROPOFOL IV EMULSION 10 MG/ML 20 ML VIAL IV ONE (09:52)
[2016-07-25] MEDS ORDERED: KETAMINE HCL INJ 50 MG/ML 10 ML VIAL ONE (09:52)
[2016-07-25 10:05] LABS: BUN/CREATININE RATIO 35.9 (10-20); CALCIUM 9.9 mg/dl (8.5-10.1); CREATININE 2.3 mg/dl (0.60-1.20); PHOSPHORUS 3.7 mg/dl (2.5-4.9); POTASSIUM 3.4 mmol/L (3.5-5.1)
--- NOTE | 2016-07-25 10:48 | Progress Note ---
Progress Note Date of Service July 25, 2016. Progress Note Patient for insertion of permcath. I have discussed the risks options and benefits of the procedure with the patient. The patient understands the risks options and benefits and agrees to the procedure. I have examined the patient, reviewed the History & Physical and in the interval since the performance of the History & Physical I have noted the following changes of clinical significance: No changes noted
[2016-07-25] MEDS: HEPARIN SOD (PORCINE) 1000 UNIT/ML 10 ML VIAL IV SCH ×2 (11:00→14:49)
--- NOTE | 2016-07-25 11:29 | Nephrology Progress Note ---
Nephrology Progress Note Date of Service July 25, 2016. Chief Complaint GUNNAR Subjective No acute events overnight. Hemalatha was able to tolerate BIPAP yesterday. She slept for several hours in her hospital room. This morning, her family feels that she is more awake. She is experiencing acute on chronic neuropathic pain in her right leg and foot. She describes paresthesias in the foot and shooting pain intermittently in the leg. Dilaudid provided significant benefit yesterday. She denies significant shortness of breath at rest this morning. She is voiding urine without difficulty. The patient and her family had multiple questions regarding hemodialysis. Review of Systems A complete review of systems was performed. Pertinent positives are noted above. All other systems are negative. Vital Signs Last 8 Hrs Date Time Temp Pulse Resp B/P Pulse Ox O2 Delivery O2 Flow Rate FiO2 07/25/16 08:00 Nasal Cannula 3.0 07/25/16 07:58 37.0 81 18 132/65 95 07/25/16 04:00 Nasal Cannula 3.0 07/25/16 03:47 36.5 76 20 130/70 91 BiPAP I & O 24-Hour Column 07/25/16 07:59 Intake Total 2105 ml Output Total 2525 ml Balance -420 ml Last Recorded Weight Weight (Kilograms): 143.800 Physical Exam General Appearance: no apparent distress, + obese Head: normocephalic, atraumatic Eyes: sclerae normal ENT: pharynx normal Neck: + pertinent finding (thick, supple, unable to appreciate JVP) Respiratory/Chest: no respiratory distress, no accessory muscle use, + decreased breath sounds, + crackles Cardiovascular: regular rate, rhythm, no gallop Abdomen/GI: non tender, soft, + pertinent finding (obese) Extremities/Musculoskelatal: + pedal edema (legs wrapped to knees bilaterally, dressings clean and dry, pedal edema significant with edema extending to thighs and abdomen) Neurologic/Psych: alert, normal mood/affect Family History Cancer Diabetes mellitus Gallbladder disease Heart disease Lung disease Social History Smoking Status: Former smoker Drug Use: none Marital Status: Housing Status: lives with family Occupation: unemployed Laboratory Results Past 24 Hours 07/25/16 07:30 07/25/16 07:30 Test 07/24/16 11:24 07/24/16 16:14 07/24/16 20:28 07/25/16 07:04 Bedside Glucose 219 mg/dl (70-90) 220 mg/dl (70-90) 201 mg/dl (70-90) 194 mg/dl (70-90) Test 07/25/16 07:30 07/25/16 10:01 Red Blood Count 3.61 M/uL (4.2-5.4) Mean Corpuscular Volume 100.8 fL (80-100) Mean Corpuscular Hemoglobin 29.4 pg (25-34) Mean Corpuscular Hemoglobin Concent 29.1 g/dl (32-36) RDW Standard Deviation 69.4 fL (36.4-46.3) RDW Coefficient of Variation 19.2 % (11.5-14.5) Mean Platelet Volume 10.6 fL (7.4-10.4) Nucleated RBC Absolute Count (auto) 0.11 K/uL (0-0) Nucleated Red Blood Cells % 1.1 % Anion Gap 6.0 mmol/L (3-11) Est Creatinine Clear Calc Drug Dose 36.7 ml/min Estimated GFR () 25.5 Estimated GFR (Non- 22.0 BUN/Creatinine Ratio 35.9 (10-20) Calcium Level 9.9 mg/dl (8.5-10.1) Phosphorus Level 3.7 mg/dl (2.5-4.9) Albumin 3.0 gm/dl (3.4-5.0) Hepatitis B Surface Antibody NEG Bedside Glucose 193 mg/dl (70-90) Allergies Coded Allergies: Daptomycin (Verified Allergy, Mild, HIVES, 07/24/16) itching Codeine (Verified Allergy, Unknown, unknown, 07/24/16) has tolerated morphine Iodine (Verified Allergy, Unknown, 07/24/16) Shellfish (Verified Allergy, Unknown, 07/24/16) Sulfamethoxazole w/Trimethoprim (Verified Allergy, Unknown, RASH, 07/24/16) Medications Current Inpatient Medications Medications (Trade) Dose Ordered Sig/Duyen Route Start Time Stop Time Status Last Admin Dose Admin Heparin Sodium (Porcine) (Heparin Sq 5000 Unit/0.5ml) 5,000 unit Q8H SQ 07/24/16 06:00 08/23/16 05:59 07/24/16 19:51 5,000 UNIT Acetaminophen (Tylenol Tab) 650 mg Q4H PRN PO 07/24/16 03:15 08/23/16 03:14 Al Hydrox/Mg Hydrox/Simethicone (Maalox Max Susp) 15 ml Q4H PRN PO 07/24/16 03:15 08/23/16 03:14 Magnesium Hydroxide (Milk Of Magnesia Susp) 30 ml Q12H PRN PO 07/24/16 03:15 08/23/16 03:14 Zolpidem Tartrate (Ambien Tab) 5 mg HSZ PRN PO 07/24/16 03:15 08/23/16 03:14 Ondansetron HCl (Zofran Inj) 4 mg Q6H PRN IV 07/24/16 03:15 08/23/16 03:14 Polyethylene (Miralax Powder Packet) 17 gm DAILY PRN PO 07/24/16 03:15 08/23/16 03:14 Atorvastatin Calcium (Lipitor Tab) 40 mg QAM PO 07/24/16 09:00 08/23/16 08:59 07/25/16 08:10 40 MG Doxycycline Hyclate (Vibramycin Cap) 100 mg BID PO 07/24/16 09:00 07/25/16 23:59 07/25/16 08:11 100 MG Salmeterol Xinafoate/ Fluticasone (Advair Diskus 500/50 Inh) 1 puff BID INH 07/24/16 09:00 08/23/16 08:59 07/25/16 08:09 1 PUFF Albuterol/ Ipratropium (Duoneb) 1 ml Q6 PRN INH 07/24/16 03:15 08/23/16 03:14 Ammonium Lactate (Lac-Hydrin) 1 appl BID EXT 07/24/16 09:00 08/23/16 08:59 07/25/16 08:17 1 APPL Metoprolol Succinate (Toprol Xl Tab) 150 mg DAILY PO 07/24/16 09:00 08/23/16 08:59 07/25/16 08:10 150 MG Miconazole Nitrate (Desenex Powder) 1 appln PRN PRN EXT 07/24/16 03:15 08/23/16 03:14 Pantoprazole Sodium (Protonix Tab) 40 mg QAM PO 07/24/16 09:00 08/23/16 08:59 07/25/16 08:09 40 MG Pregabalin (Lyrica Cap) 150 mg TID PO 07/24/16 09:00 08/23/16 08:59 07/25/16 08:09 150 MG Pyridoxine HCl (Vitamin B-6 Tab) 200 mg DAILY PO 07/24/16 09:00 08/23/16 08:59 07/25/16 08:11 200 MG Tiotropium [place] (Spiriva Handihaler Inhaler) 1 puff DAILY INH 07/24/16 09:00 08/23/16 08:59 07/25/16 08:10 1 PUFF Verapamil HCl (Calan-Sr Tab) 240 mg HS PO 07/24/16 21:00 08/23/16 20:59 07/24/16 19:49 240 MG Cyanocobalamin (Vitamin B-12 Tab) 2,500 mcg DAILY PO 07/24/16 09:00 08/23/16 08:59 07/25/16 08:11 2,500 MCG Insulin Aspart (novoLOG ASPART) SLIDING SCALE ACHS SC 07/24/16 11:00 08/23/16 10:59 07/25/16 08:20 11 UNITS Glucose (Glucose 40% Gel) 15-30 GRAMS 15 GRAMS... UD PRN PO 07/24/16 11:00 08/23/16 10:59 Glucose (Glucose Chew Tab) 4-8 Tablets 4 Tabl... UD PRN PO 07/24/16 11:00 08/23/16 10:59 Dextrose (Dextrose 50% 50ML Syringe) 25-50ML OF 50% DW IV FOR... UD PRN IV 07/24/16 11:00 08/23/16 10:59 Glucagon (Glucagon Inj) 1 mg UD PRN SQ 07/24/16 11:00 08/23/16 10:59 Insulin Glargine SEE PROTOCOL TEXT ... BID SC 07/24/16 21:00 08/23/16 20:59 07/25/16 08:20 60 UNIT Cefazolin Sodium (Ancef 3000 Mg/ 65 ml D5W) 65 ml @ 100 mls/hr PREOP IV 07/25/16 06:00 07/25/16 18:00 Prednisone (PredniSONE TAB) 15 mg DAILY PO 07/25/16 09:00 08/24/16 08:59 07/25/16 08:10 15 MG Ciprofloxacin (Cipro Tab) 500 mg BID PO 07/24/16 21:00 08/03/16 20:59 07/25/16 08:12 500 MG Fentanyl Citrate (Fentanyl Inj) 50 mcg Q5M PRN IV 07/25/16 08:15 07/25/16 13:00 Hydromorphone HCl (Dilaudid Inj) 0.5 mg Q5M PRN IV 07/25/16 08:15 07/25/16 13:00 Meperidine HCl (Demerol Inj) 25 mg Q5M PRN IV 07/25/16 08:15 07/25/16 13:00 Ondansetron HCl (Zofran Inj) 4 mg ONE PRN IV 07/25/16 08:15 07/25/16 13:00 Labetalol HCl (Normodyne IV) 5 mg Q5M PRN IV 07/25/16 08:15 07/25/16 13:00 Ephedrine Sulfate (EpHEDrine SULFATE INJ) 5 mg Q5M PRN IV 07/25/16 08:15 07/25/16 13:00 Atropine Sulfate (Atropine Sulfate 0.1MG/Ml Inj) 0.5 mg Q1M PRN IV 07/25/16 08:15 07/25/16 13:00 Heparin Sodium (Porcine) (Heparin Iv Bolus) 1,000 unit TODAY@1100 IV 07/25/16 11:00 07/25/16 16:00 Impression (1) Hypercalcemia (2) Hypokalemia (3) Metabolic alkalosis (4) Renal failure (ARF), acute on chronic (5) Morbid obesity with BMI of 50.0-59.9, adult (6) Obesity hypoventilation syndrome (7) Edema (8) Respiratory failure with hypercapnia Hemalatha Is a 60-year-old female with morbid obesity, obesity hypoventilation syndrome, recurrent hypercapnia, advanced chronic kidney disease , right heart failure and failure of diuretic therapy. She has had multiple recent hospitalizations for volume overload and electrolyte abnormalities associated with diuretics. After multiple lengthy discussions with the patient and her family regarding goals of care as well as treatment options, decision was made to initiate maintenance hemodialysis. This decision was made in conversation with the patient's primary mirror silverer and other members of the care team. We stressed the importance of continued use positive pressure ventilation are minimally. Reviewed the dialysis procedure in detail. Patient is scheduled to undergo PermCath placement today. Following placement her initial dialysis treatment will be performed either today or tomorrow. Her intake has been initiated at [facility]. Her primary mirror silverer will be Dr. Carl Neri. GUNNAR on CKD 3 progressing to ESRD requiring perm cath placement and plan for dialysis. Recommendations EDEMA: -- Related to obesity, lymphedema and right heart failure -- Failed outpatient oral diuretic regimen -- Multiple admissions requiring IV diuretic to alleviate tense edema and weeping bullae. Suggest continued management with LABEL REMOVER at this time. -- Attempts at diuresis in the past have been met with hypotension, weakness and progressive metabolic alkalosis HYPOKALEMIA: -- Oral and IV replacement PRN -- Monitor daily metabolic profile while inpatient HYPERCAPNEIA: -- Encourage discussion with pulmonology and management with intermittent positive pressure ventilation ESRD: -- Due to advanced CKD and advanced CRS the patient has not been able to effectively manage with diuretic therapy -- Orders for initial HD treatment have been entered and the plan discussed with dialysis nursing staff. First treatment today or tomorrow pending permcath placement -- Outpatient HD arrangements at [facility] under the care of Dr. Carl Neri HYPERCALCEMIA: -- Serum calcium chronically slightly elevated -- Patient has been undergoing outpatient evaluation for a monoclonal gammopathy by Dr. Delong -- Dr. An had requested a repeat 24 hour UPEP which I will order for tomorrow AM
[2016-07-25] MEDS ORDERED: HEPARIN SOD (PORCINE) 5000 UNIT/ML 1 ML VIAL ONE (11:31)
[2016-07-25] MEDS ORDERED: LIDOCAINE HCL 1% 20 ML VIAL INJ ONE ×2 (11:35→11:36)
[2016-07-25] MEDS ORDERED: HEPARIN SOD (PORCINE) 5000 UNIT/ML 1 ML VIAL IV ONE (11:42)
--- NOTE | 2016-07-25 11:48 | [facility] Post Operative Brief Note ---
Immediate Operative Summary Operative Date July 25, 2016. Pre-Operative Diagnosis acute renal failure Post-Operative Diagnosis same Procedure(s) Performed Insertion Of Perm Catheter, Right Internal Jugular Approach, Ultrasound Localization Of Right Internal Jugular Vein, Fluoroscopy For Positioning Surgeon Dr. Thapa Car Filler Surgeon(s) none Estimated Blood Loss 5 ml Findings tip in distal SVC Specimens none Anesthesia MAC Complication(s) None Disposition Recovery Room / PACU
[2016-07-25] MEDS: FENTANYL CITRATE INJ 50 MCG/1 ML 2 ML VIAL IV PRN ×2 (12:02→12:15)
--- NOTE | 2016-07-25 12:07 | DIAGNOSTIC IMAGING REPORT ---
DATE OF PROCEDURE: 07/25/2016 PREOPERATIVE DIAGNOSIS: Acute renal failure. POSTOPERATIVE DIAGNOSIS: Same. PROCEDURES: 1. Insertion of right internal jugular vein PermCath. 2. Ultrasound localization right internal jugular vein. 3. Fluoroscopic imaging for positioning. SURGEON: Dr. Thapa. ANESTHETIC: MAC. PROCEDURE INDICATIONS: The patient is a 60-year-old female with acute renal failure in need of dialysis. PermCath was recommended. She understood the risks, options and benefits and agreed to have this procedure. PROCEDURE: The patient was taken to the angio suite and placed in supine position. After right side of the neck and chest wall were prepped and draped in a sterile manner, local anesthetic was administered. Ultrasound was used to locate the internal jugular vein. It was patent, compressed easily. No filling defects are noted in the vein. Under ultrasound there was a puncture made of the right internal jugular vein and a wire passed centrally under imaging. It was passed down into the inferior vena cava from above. A stab wound was made in the anterior chest wall and a subcutaneous tunnel was made with the trocar passing the 19 cm PermCath. Once this was passed through the tunnel the puncture site was dilated until the 14 Norwegian peel away sheath was inserted. The PermCath was inserted through the peel away sheath and the peel away sheath removed. Both ports aspirated and flushed very easily. They were instilled with heparin. The catheter was then sutured in place in the anterior chest wall. This was done with nylon suture. The puncture site in the neck was closed with interrupted 4-0 subcuticular Vicryl suture. Sterile dressings were applied to the wounds. Dermabond was used for the puncture site in the neck. The patient left the angio suite in good condition and tolerated the procedure well.
--- NOTE | 2016-07-25 12:09 | Clinical Documentation Query ---
CLINICAL DOCUMENTATION QUERY 60 year old female who presents to the Emergency Room with complaints of low back pain and pelvic pain after she fell getting out of the chair. Query #1/3 In your clinical opinion is this patient being managed for: (X ) GUNNAR on CKD 3 progressing to ESRD requiring perm cath placement and plan for dialysis. ( ) Other explanation of clinical findings (Please Explain) ( ) Unable to determine (Please Define) ( ) Need to Discuss ( ) Not Agree The medical record reflects the following clinical findings, treatment, and risk factors. Clinical Indicators: BUN 78, Creatinine 2.50, GFR 19.9, Edema, CHF unspecified, Treatment: Vascular surgery consult for percath placement, schedule AVF as outpatient, nephrology consult, Risk Factors: Age, CKD, Fluid retention not amendable to diuretic therapy. Query #2/3 In your clinical opinion is this patient being managed for: ( ) Acute on chronic preserved EF CHF in setting of progressive CKD not amendable to diuretic therapy treated with BiPAP and planned dialysis. ( ) Other explanation of clinical findings (Please Explain) ( ) Unable to determine (Please Define) ( ) Need to Discuss ( ) Not Agree The medical record reflects the following clinical findings, treatment, and risk factors. Clinical Indicators: Edema, decreased breath sounds Treatment: Vascular surgery consult for percath placement, schedule AVF as outpatient, nephrology consult, BiPAP Risk Factors: Age, hx of CHF, CKD 3 Query #3/3 In your clinical opinion is this patient being managed for: ( ) hypercapneic respiratory failure treated with BiPAP ( ) Other explanation of clinical findings (Please Explain) ( ) Unable to determine (Please Define) ( ) Need to Discuss ( ) Not Agree The medical record reflects the following clinical findings, treatment, and risk factors. Clinical Indicators: VBG pCO2 86 Treatment: BiPAP Risk Factors: MIKAYLA, obesity Please clarify and document your clinical opinion in the progress notes and discharge summary. Terms such as "probable", "suspected", "likely", "questionable", "possible", or "still to be ruled out" are acceptable. IF IN AGREEMENT, YOU MUST DOCUMENT ABOVE DIAGNOSTIC STATEMENT IN DAILY PROGRESS NOTES AND DISCHARGE SUMMARY. This document is not part of the patient's record. Thank You, Dusty Hendrickson, RN [phone]
--- NOTE | 2016-07-25 12:10 | Clinical Documentation Query ---
CLINICAL DOCUMENTATION QUERY 60 year old female who presents to the Emergency Room with complaints of low back pain and pelvic pain after she fell getting out of the chair. In your clinical opinion is this patient being managed for: ( ) GUNNAR on CKD 3 progressing to ESRD requiring perm cath placement and plan for dialysis. ( ) Other explanation of clinical findings (Please Explain) ( ) Unable to determine (Please Define) ( ) Need to Discuss ( ) Not Agree The medical record reflects the following clinical findings, treatment, and risk factors. Clinical Indicators: BUN 78, Creatinine 2.50, GFR 19.9, Edema, CHF unspecified, Treatment: Vascular surgery consult for percath placement, schedule AVF as outpatient, nephrology consult, Risk Factors: Age, CKD, Fluid retention not amendable to diuretic therapy. Please clarify and document your clinical opinion in the progress notes and discharge summary. Terms such as "probable", "suspected", "likely", "questionable", "possible", or "still to be ruled out" are acceptable. IF IN AGREEMENT, YOU MUST DOCUMENT ABOVE DIAGNOSTIC STATEMENT IN DAILY PROGRESS NOTES AND DISCHARGE SUMMARY. This document is not part of the patient's record. Thank You, Dusty Hendrickson, RN [phone]
--- NOTE | 2016-07-25 13:04 | Anesthesiology Progress Note ---
Anesthesia Post Op Note Date & Time July 25, 2016 at 13:04 Vital Signs Pain Intensity: 3 Vital Signs Past 12 Hours Date Time Temp Pulse Resp B/P Pulse Ox O2 Delivery O2 Flow Rate FiO2 07/25/16 12:30 36.6 77 16 155/68 92 Nasal Cannula 4 07/25/16 12:20 75 14 152/74 92 Nasal Cannula 4 07/25/16 12:10 76 13 163/76 93 Nasal Cannula 4 07/25/16 12:00 76 13 155/70 93 Nasal Cannula 4 07/25/16 11:57 36.1 77 15 157/71 92 Nasal Cannula 4 07/25/16 08:00 Nasal Cannula 3.0 07/25/16 07:58 37.0 81 18 132/65 95 07/25/16 04:00 Nasal Cannula 3.0 07/25/16 03:47 36.5 76 20 130/70 91 BiPAP Notes Mental Status: alert / awake / arousable, participated in evaluation Pt Amnestic to Procedure: Yes Nausea / Vomiting: adequately controlled Pain: adequately controlled Airway Patency, RR, SpO2: stable & adequate BP & HR: stable & adequate Hydration State: stable & adequate Anesthetic Complications: no major complications apparent
--- NOTE | 2016-07-25 13:18 | Pharmacy Progress Note ---
Glycemic Control: Progress Nt Date of Service July 25, 2016. Scope Glycemic Pharmacist consulted by Dr Galaviz on 07/24/16 for glycemic control and to write orders per [facility] inpatient glycemic control protocol. Objective Accuchecks BSG (last 24hrs): Test 07/24/16 16:14 07/24/16 20:28 07/25/16 07:04 07/25/16 07:30 Bedside Glucose 220 mg/dl (70-90) 201 mg/dl (70-90) 194 mg/dl (70-90) Random Glucose 192 mg/dl (70-99) Test 07/25/16 10:01 07/25/16 11:59 Bedside Glucose 193 mg/dl (70-90) 182 mg/dl (70-90) HbA1c: 6.3% on 05/20/16 Recent Pertinent Medications Outpatient Anti-diabetic Regimen: * Toujeo 70 units BID + Novolog 50/50/90/40 The patient is currently receiving: * Basal insulin: Lantus 70 units every 12 hours * Correctional Insulin: Novolog Correction per scale ACHS Goal Range: Low 110 mg/dL - High 140 mg/dL Correction Factor: 5 mg/dL/unit * Prandial insulin: Per carb ratio of 1 unit per 2 grams CHO consumed Risk Factors for Insulin Resistance: * Steroids: Prednisone 15 mg daily (chronic dose) * Infection: Doxycycline PO + cipro PO for cellulitis * Diet: AHA/T2DM Assessment & Plan ASSESSMENT: * 60 year old T2DM female admitted with progressive weakness and acute on chronic kidney injury secondary to dehydration. Patient is well known to the glycemic service and was recently here 07/11-07/17. Her total out patient insulin dose is ~370 units. * Minimal additional stressors/risk factors for insulin resistance, therefore continuing insulin dosing per previous admissions warranted. * Pt NPO this AM for perm cath placement --> will give a slightly reduced basal insulin dose prior to OR * Pt with extreme post-prandial insulin resistance --> uses large doses of NovoLog to cover meals as an outpatient and has required a CR of 1 while admitted on previous admissions. PLAN FOR INPATIENT GLYCEMIC CONTROL: Continue similar SQ basal bolus insulin regimen per previous admissions. Pt typically requires 250-300 units of insulin per day as compared to ~370 units as an outpatient. * Basal insulin * Lantus 70 units SQ BID * Give one time dose of 60 units this morning for NPO/OR * Bolus Insulin * NovoLog ACHS or Q6hrs * Goal Range: Low 110 mg/dL - High 140 mg/dL * Correction Factor: 8mg/dL/unit * Nutritional / Prandial insulin per carb ratio of 1 unit per 1.5 grams CHO consumed LOOKING AHEAD TO DISCHARGE: * Patient has good outpatient control as evidenced by A1c of 6.3% on 05/20/16 * I suspect patient will be able to resume home regimen of Toujeo 70 units BID and Novolog with meals and at bedtime. Reduced doses needed in house for controlled CHO intake with diabetic diet. * Please note that the plan above was derived based on current level of insulin resistance and hospital stress. These recommendations are appropriate for inpatient admission only. Plan of care upon discharge will need to be reassessed to avoid potential outpatient hypo/hyperglycemia. Thank you.
[2016-07-25] MEDS ORDERED: HYDROmorphone INJ 1 MG/ML SYR IV STA (13:30)
[2016-07-25] MEDS ORDERED: POTASSIUM CHLORIDE 20 MEQ TABCR PO STA (16:34)
[2016-07-25] MEDS ORDERED: NURSING VERBAL MED ORDER ONE (18:30)
[2016-07-25] MEDS ORDERED: HEPARIN SOD (PORCINE) 1000 UNIT/ML 10 ML VIAL IV SCH (20:15)
[2016-07-25] MEDS ORDERED: INSULIN GLARGINE SOLOSTAR 100 UNITS/ML 3 ML PEN SC SCH (21:00)
[2016-07-25] MEDS: VERAPAMIL HCL 240 MG TABCR PO SCH (21:11)
[2016-07-26] VITALS (19 sets, daily range): BP systolic 103–167; BP diastolic 58–81; PULSE 68–79; TEMP 36.5–36.8; O2SAT 91–95
[2016-07-26] MEDS ORDERED: HYDROmorphone INJ 1 MG/ML SYR IV PRN (01:00)
[2016-07-26] MEDS ORDERED: HYDROmorphone INJ 0.5 MG/0.5 ML SYR ONE (01:05)
[2016-07-26] MEDS: HEPARIN SOD 5000 UNIT/0.5 ML CARP SQ SCH ×3 (06:17→21:10)
[2016-07-26 06:26] LABS: BUN/CREATININE RATIO 30.3 (10-20); CALCIUM 8.3 mg/dl (8.5-10.1); CREATININE 2.1 mg/dl (0.60-1.20); PHOSPHORUS 2.4 mg/dl (2.5-4.9); POTASSIUM 3.2 mmol/L (3.5-5.1)
[2016-07-26] MEDS: INSULIN ASPART 100 UNITS/ML 3 ML PEN SC SCH ×5 (07:00→21:09)
[2016-07-26] MEDS ORDERED: HEPARIN SOD (PORCINE) 1000 UNIT/ML 10 ML VIAL IV SCH (08:00)
[2016-07-26] MEDS ORDERED: SODIUM CHLORIDE 3% INJ 500 ML IV PRN (08:00)
--- NOTE | 2016-07-26 08:33 | Family Medicine Progress Note ---
Progress Note Date of Service July 26, 2016. Subjective Pt evaluation today including: conversation w/ patient, physical exam, chart review, lab review Patient well. Happy with progress since initiating HD. No acute complaints. Constitutional: + fatigue, + weakness, + weight loss, No chills, No fever, No sweats Respiratory: + shortness of breath (while lying flat on dialysis), No cough , No wheezing Cardiovascular: + edema, + orthopnea, No PND, No chest pain, No palpitations Abdomen: + problem reported (Abdominal wound under right panus healing well) , No nausea, No pain Musculoskeletal: + swelling (improved) Objective Vital Signs Date Time Temp Pulse Resp B/P Pulse Ox O2 Delivery O2 Flow Rate FiO2 07/26/16 05:22 36.7 71 22 121/69 91 BiPAP 07/26/16 04:00 CPAP 07/26/16 00:01 CPAP 07/25/16 23:40 36.8 79 20 121/72 92 BiPAP 07/25/16 20:00 CPAP 07/25/16 19:37 36.8 70 20 159/74 93 BiPAP 07/25/16 16:00 Nasal Cannula 3.0 07/25/16 15:42 36.3 68 123/63 07/25/16 15:23 36.4 65 18 115/56 94 Room Air 07/25/16 15:15 65 115/56 07/25/16 15:00 65 111/58 07/25/16 14:45 68 108/56 07/25/16 14:30 73 121/62 07/25/16 14:15 73 119/51 07/25/16 14:00 73 119/57 07/25/16 13:45 81 117/67 07/25/16 13:45 75 120/59 07/25/16 13:30 80 132/63 07/25/16 13:26 80 152/72 07/25/16 13:15 36.6 78 154/74 07/25/16 12:56 Nasal Cannula 5.0 07/25/16 12:30 36.6 77 16 155/68 92 Nasal Cannula 4 07/25/16 12:20 75 14 152/74 92 Nasal Cannula 4 07/25/16 12:10 76 13 163/76 93 Nasal Cannula 4 07/25/16 12:00 76 13 155/70 93 Nasal Cannula 4 07/25/16 11:57 36.1 77 15 157/71 92 Nasal Cannula 4 Physical Exam General Appearance: WD/WN, + mild distress, + obese ENT: hearing grossly normal Respiratory/Chest: lungs clear, normal breath sounds, no respiratory distress, no accessory muscle use, + pertinent finding (NC 5LO2 since lying inclined in bed for dialysis instead of upright in a chair) Cardiovascular: regular rate, rhythm, no murmur Abdomen: normal bowel sounds, non tender, soft Extremities: no calf tenderness, + pertinent finding (Swelling in legs and feet significantly diminished, skin pruney) 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: alert, normal mood/affect, oriented x 3 Skin: no rash Laboratory Results Results Past 24 Hours Test 07/26/16 05:25 07/26/16 06:56 07/26/16 11:22 07/26/16 16:22 Range/Units Sodium Level 140 136-145 mmol/L Potassium Level 3.2 3.5-5.1 mmol/L Chloride Level 98 98-107 mmol/L Carbon Dioxide Level 37 21-32 mmol/L Anion Gap 5.0 3-11 mmol/L Blood Urea Nitrogen 64 7-18 mg/dl Creatinine 2.10 0.60-1.20 mg/dl Est Creatinine Clear Calc Drug Dose 38.6 ml/min Estimated GFR () 28.5 Estimated GFR (Non- 24.6 BUN/Creatinine Ratio 30.3 10-20 Random Glucose 116 70-99 mg/dl Calcium Level 8.3 8.5-10.1 mg/dl Phosphorus Level 2.4 2.5-4.9 mg/dl Albumin 2.8 3.4-5.0 gm/dl Bedside Glucose 115 106 227 70-90 mg/dl Test 07/26/16 19:30 07/26/16 20:09 Range/Units Bedside Glucose 266 70-90 mg/dl Assessment and Plan 60 year old female with PMHx of cor pulmonale, CHF, COPD, chronic hypoxic respiratory failure requiring 3 L oxygen at baseline and BiPAP overnight, DM, CKD, morbid obesity, HLD and chronic venous insufficiency presented to the ER with complaints of weakness. GUNNAR in setting of CKD - Secondary to diabetic nephropathy and hypertensive sclerosis. Creatinine on admission 2.5, baseline around 1.7-2, s/p Diamox 500mg - Nephrology consulted- recs appreciated. s/p PermCath placement 07/25 - 2nd hemodialysis today - tolerated well - Dilaudid PRN pain at PermCath site - Trend BMP, Mg+, PO4, albumin Hypokalemia - repleted on admission. No further PO supplementation since on hemodialysis Hypercalcemia - diagnosed with MGUS. Serum free light chain ratio is elevated. UIEP was positive for IgG Babb monoclonal protein during outpatient workup. Followed by Dr. Delong, pending further evaluation Cor pulmonale - Last echo 07/25/15: Hyperdynamic LV systolic function. Mild concentric LV hypertrophy. LV diastolic dysfunction. Mild RV dilatation and systolic dysfunction. Mild tricuspid regurgitation. Mildly elevated RV systolic pressure. Normal central venous pressure. Ejection Fraction = >70 % - Daily weights - I's and O's COPD - controlled - Advair, Spiriva, DuoNeb - Home dose of prednisone 15mg daily - 3L O2 via nasal cannula during the day, BiPAP overnight Chronic venous insufficiency - improved with HD. Had cellulitis during last admission, weeping bilateral pedal edema - Keep legs elevated with daily dressing changes -14 day course doxycycline completed HTN - Continue Toprol-XL 150 mg and verapamil CR 240 mg DM - last HbA1c 6.3 on 05/20/16 - insulin sliding scale - Glycemic consult Gout - asymptomatic. - Allopurinol discontinued given HD - Prednisone should help with acute flares Peripheral neuropathy/chronic pain - Pregabalin 150mg TID VTE prophylaxis - Heparin SQ Rescus but DNI Continued [facility] stay due to: multiple IV medications needed Discharge planning: home History Resident Physician Supervision Note: I was present with Dr. Laughlin during the history and exam. I discussed the case with the resident and agree with the findings and plan as documented in the note. Any exceptions or clarifications are listed here. Mrs. Gaytan and her are present in the room. She states that she is feeling much better than previous, but is still having trouble with breathing - she feels that this is somewhat positional in nature, as her pain from the catheter is preventing her from wearing her mask. General Appearance: no apparent distress, obese Respiratory: no respiratory distress, decreased breath sounds (2/2 habitus), other (TTP at catheter site) Cardiovascular: normal peripheral pulses, regular rate, rhythm, no murmur, other (significant improvement in b/l LE edema following dialysis, dressings C/D /I) Gastrointestinal: normal bowel sounds, non tender, soft Assessment/Plan 60 y/o female h/o CHF, CKD III, chronic LE edema, COPD, h/o cellulitis (LE and pannus) for fall 2/2 weakness/twitching COPD - baseline 3LO2, presently at 4-5L - continue prednisone, spiriva, duonebs - will improve pain control as below and increase CPAP use for improved oxygenation Post-procedural pain - increase dilaudid frequency to 0.5mg IV q4h PRN Acute on chronic kidney disease on dialysis - nephrology consulted, recommendations appreciated - gentle hydration and recommendations per nephrology Electrolyte abnormalities - trend BMP in AM, next dialysis Thursday CHF - fluid status through dialysis, continue metoprolol DMII - basal/bolus regimen as noted, will titrate w/ FSBS HTN - continue metoprolol, verapamil Cellulitis - continue doxycycline 35 minutes today were spent with the patient and her spouse reviewing advanced directives and completing a POLST form - per them, they have advanced directives which they have completed in the past and are not looking to deviate significantly from the original. The patient remains for CPR, but they do not wish to have intubation or mechanical ventilation. They support the use of antibiotics and refuse hydration and nutrition by artificial means. These have been documented in the chart on the appropriate form. Resident Tracking Resident Involvement: Resident Care Provided Care Provided: Adult Hospital Medicine
[2016-07-26] MEDS ORDERED: POTASSIUM CHLORIDE 20 MEQ TABCR PO ONE (09:00)
[2016-07-26] MEDS: AMMONIUM LACTATE 12% LOTION 225 GM BTL EXT SCH ×2 (09:00→21:04)
[2016-07-26] MEDS ORDERED: INSULIN GLARGINE SC SCH ×2 (09:00→21:00)
--- NOTE | 2016-07-26 11:05 | Nephrology Progress Note ---
Nephrology Progress Note Date of Service July 26, 2016. Chief Complaint GUNNAR Subjective No acute events overnight. Tolerated HD yesterday, UF 2 kg. No complications with treatment. Hemalatha describes persistent pain in her lower back attributed to her fall at home. She has experienced similar pain in the past. She also have pain in her right leg but states that his is chronic. She has mild pain at the TDC exit site but this is tolerable. Overall, she is uncomfortable and this made it difficult to sleep last night. She states that she does have some more strength today. She remains hopeful that she will be able to be discharged home this weekend. She looks forward to getting out of bed following hemodialysis. She was seen and evaluated during hemodialysis this morning. Qb and blood pressure appropriate. Review of Systems A complete review of systems was performed. Pertinent positives are noted above. All other systems are negative. Vital Signs Last 8 Hrs Date Time Temp Pulse Resp B/P Pulse Ox O2 Delivery O2 Flow Rate FiO2 07/26/16 09:30 69 159/71 07/26/16 09:15 68 156/66 07/26/16 09:00 70 145/74 07/26/16 08:45 69 148/69 07/26/16 08:32 36.6 71 162/74 07/26/16 08:00 Nasal Cannula 5.0 07/26/16 05:22 36.7 71 22 121/69 91 BiPAP 07/26/16 04:00 CPAP I & O 24-Hour Column 07/26/16 08:00 Intake Total 350 ml Output Total 3555 ml Balance -3205 ml Last Recorded Weight Weight (Kilograms): 139.700 Physical Exam General Appearance: no apparent distress, + obese Head: normocephalic, atraumatic Eyes: normal inspection, sclerae normal ENT: normal ENT inspection, pharynx normal Neck: supple, + pertinent finding (thick, RIJ TDC intact with clean dressing over exit site) Respiratory/Chest: lungs clear, no respiratory distress, no accessory muscle use, + decreased breath sounds Cardiovascular: regular rate, rhythm, no gallop, no murmur Abdomen/GI: non tender, soft, + pertinent finding (obese with large ventral hernia) Extremities/Musculoskelatal: normal inspection, + pedal edema Neurologic/Psych: alert, normal mood/affect Family History Cancer Diabetes mellitus Gallbladder disease Heart disease Lung disease Social History Smoking Status: Former smoker Drug Use: none Marital Status: Housing Status: lives with family Occupation: unemployed Laboratory Results Past 24 Hours 07/26/16 05:25 Test 07/25/16 11:59 07/25/16 12:55 07/25/16 16:07 07/25/16 20:25 Bedside Glucose 182 mg/dl (70-90) 196 mg/dl (70-90) 177 mg/dl (70-90) 199 mg/dl (70-90) Test 07/26/16 05:25 07/26/16 06:56 Anion Gap 5.0 mmol/L (3-11) Est Creatinine Clear Calc Drug Dose 38.6 ml/min Estimated GFR () 28.5 Estimated GFR (Non- 24.6 BUN/Creatinine Ratio 30.3 (10-20) Calcium Level 8.3 mg/dl (8.5-10.1) Phosphorus Level 2.4 mg/dl (2.5-4.9) Albumin 2.8 gm/dl (3.4-5.0) Bedside Glucose 115 mg/dl (70-90) Allergies Coded Allergies: Daptomycin (Verified Allergy, Mild, HIVES, 07/24/16) itching Codeine (Verified Allergy, Unknown, unknown, 07/24/16) has tolerated morphine Iodine (Verified Allergy, Unknown, 07/24/16) Shellfish (Verified Allergy, Unknown, 07/24/16) Sulfamethoxazole w/Trimethoprim (Verified Allergy, Unknown, RASH, 07/24/16) Medications Current Inpatient Medications Medications (Trade) Dose Ordered Sig/Duyen Route Start Time Stop Time Status Last Admin Dose Admin Heparin Sodium (Porcine) (Heparin Sq 5000 Unit/0.5ml) 5,000 unit Q8H SQ 07/24/16 06:00 08/23/16 05:59 07/26/16 06:17 5,000 UNIT Acetaminophen (Tylenol Tab) 650 mg Q4H PRN PO 07/24/16 03:15 08/23/16 03:14 07/25/16 21:26 650 MG Al Hydrox/Mg Hydrox/Simethicone (Maalox Max Susp) 15 ml Q4H PRN PO 07/24/16 03:15 08/23/16 03:14 Magnesium Hydroxide (Milk Of Magnesia Susp) 30 ml Q12H PRN PO 07/24/16 03:15 08/23/16 03:14 Zolpidem Tartrate (Ambien Tab) 5 mg HSZ PRN PO 07/24/16 03:15 08/23/16 03:14 07/25/16 21:25 5 MG Ondansetron HCl (Zofran Inj) 4 mg Q6H PRN IV 07/24/16 03:15 08/23/16 03:14 Polyethylene (Miralax Powder Packet) 17 gm DAILY PRN PO 07/24/16 03:15 08/23/16 03:14 Atorvastatin Calcium (Lipitor Tab) 40 mg QAM PO 07/24/16 09:00 08/23/16 08:59 07/25/16 08:10 40 MG Salmeterol Xinafoate/ Fluticasone (Advair Diskus 500/50 Inh) 1 puff BID INH 07/24/16 09:00 08/23/16 08:59 07/25/16 21:10 1 PUFF Albuterol/ Ipratropium (Duoneb) 1 ml Q6 PRN INH 07/24/16 03:15 08/23/16 03:14 Ammonium Lactate (Lac-Hydrin) 1 appl BID EXT 07/24/16 09:00 08/23/16 08:59 07/25/16 21:11 1 APPL Metoprolol Succinate (Toprol Xl Tab) 150 mg DAILY PO 07/24/16 09:00 08/23/16 08:59 07/25/16 08:10 150 MG Miconazole Nitrate (Desenex Powder) 1 appln PRN PRN EXT 07/24/16 03:15 08/23/16 03:14 Pantoprazole Sodium (Protonix Tab) 40 mg QAM PO 07/24/16 09:00 08/23/16 08:59 07/25/16 08:09 40 MG Pregabalin (Lyrica Cap) 150 mg TID PO 07/24/16 09:00 08/23/16 08:59 07/25/16 21:18 150 MG Pyridoxine HCl (Vitamin B-6 Tab) 200 mg DAILY PO 07/24/16 09:00 08/23/16 08:59 07/25/16 08:11 200 MG Tiotropium [place] (Spiriva Handihaler Inhaler) 1 puff DAILY INH 07/24/16 09:00 08/23/16 08:59 07/25/16 08:10 1 PUFF Verapamil HCl (Calan-Sr Tab) 240 mg HS PO 07/24/16 21:00 08/23/16 20:59 07/25/16 21:11 240 MG Cyanocobalamin (Vitamin B-12 Tab) 2,500 mcg DAILY PO 07/24/16 09:00 08/23/16 08:59 07/25/16 08:11 2,500 MCG Insulin Aspart (novoLOG ASPART) SLIDING SCALE ACHS SC 07/24/16 11:00 08/23/16 10:59 07/26/16 09:38 23 UNITS Glucose (Glucose 40% Gel) 15-30 GRAMS 15 GRAMS... UD PRN PO 07/24/16 11:00 08/23/16 10:59 Glucose (Glucose Chew Tab) 4-8 Tablets 4 Tabl... UD PRN PO 07/24/16 11:00 08/23/16 10:59 Dextrose (Dextrose 50% 50ML Syringe) 25-50ML OF 50% DW IV FOR... UD PRN IV 07/24/16 11:00 08/23/16 10:59 Glucagon (Glucagon Inj) 1 mg UD PRN SQ 07/24/16 11:00 08/23/16 10:59 Prednisone (PredniSONE TAB) 15 mg DAILY PO 07/25/16 09:00 08/24/16 08:59 07/25/16 08:10 15 MG Insulin Glargine 70 unit 70 unit BID SC 07/26/16 09:00 08/25/16 08:59 07/26/16 09:19 70 UNIT Sodium Chloride (Hypertonic Saline 3% Inj) 500 ml @ 35 mls/hr [id number] PRN IV 07/26/16 08:00 07/26/16 16:00 Hydromorphone HCl (Dilaudid Inj) 0.5 mg Q6H PRN IV 07/26/16 01:00 08/09/16 00:59 Impression (1) Hypercalcemia (2) Hypokalemia (3) Metabolic alkalosis (4) Renal failure (ARF), acute on chronic (5) Morbid obesity with BMI of 50.0-59.9, adult (6) Obesity hypoventilation syndrome (7) Edema (8) Respiratory failure with hypercapnia Hemalatha Is a 60-year-old female with morbid obesity, obesity hypoventilation syndrome, recurrent hypercapnia, advanced chronic kidney disease , right heart failure and failure of diuretic therapy. She has had multiple recent hospitalizations for volume overload and electrolyte abnormalities associated with diuretics. Hemalatha developed GUNNAR on CKD 3 progressing to ESRD requiring perm cath placement and plan for dialysis. Permcath was placed 07/25. She completed her first dialysis treatment on 07/25 and her second treatment today. She is scheduled to start outpatient hemodialysis at [facility] under the care of Dr. Neri on Thursday07/29/16. Recommendations ESRD: -- HD today and plan next treatment Thursday (Arrangements have been made at [facility] for HD on Thursday as outpatient) EDEMA: -- Additional 2 L UF today -- Continue Bumex 4 mg BID to encourage UOP -- Discontinue metolazone HYPOKALEMIA: -- Anticipate some improvement with HD -- Repeat metabolic profile tomorrow AM HYPERCAPNEIA: -- Encourage intermittent positive pressure ventilation HYPERCALCEMIA: -- 24 hour UPEP started today for follow up with hematology
[2016-07-26] MEDS ORDERED: NURSING VERBAL MED ORDER ONE ×2 (11:15→17:15)
[2016-07-26] MEDS: PREGABALIN 150 MG CAP PO SCH ×3 (12:11→21:07)
[2016-07-26] MEDS: METOPROLOL SUCC 50MG EXT REL TAB PO SCH (12:12)
[2016-07-26] MEDS: FLUTICASONE/SALMETEROL (ADVAIR) 500/50 INH 14 PUFF INH SCH ×2 (12:12→21:07)
[2016-07-26] MEDS: ATORVASTATIN 40 MG TAB PO SCH (12:12)
[2016-07-26] MEDS: PYRIDOXINE HCL 50 MG TAB PO SCH (12:13)
[2016-07-26] MEDS: TIOTROPIUM BROMIDE 5 PUFF/90 MCG INH INH SCH (12:13)
[2016-07-26] MEDS: PANTOprazole SOD 40 MG TAB PO SCH (12:14)
[2016-07-26] MEDS: CYANOCOBALAMIN 2,500 MCG SUBL TAB PO SCH (12:14)
--- NOTE | 2016-07-26 12:17 | Pharmacy Progress Note ---
Glycemic Control: Progress Nt Date of Service July 26, 2016. Scope Glycemic Pharmacist consulted by Dr Galaviz on 07/24/16 for glycemic control and to write orders per [facility] inpatient glycemic control protocol. Objective Accuchecks BSG (last 24hrs): Test 07/25/16 12:55 07/25/16 16:07 07/25/16 20:25 07/26/16 05:25 Bedside Glucose 196 mg/dl (70-90) 177 mg/dl (70-90) 199 mg/dl (70-90) Random Glucose 116 mg/dl (70-99) Test 07/26/16 06:56 07/26/16 11:22 Bedside Glucose 115 mg/dl (70-90) 106 mg/dl (70-90) Recent Pertinent Medications Outpatient Anti-diabetic Regimen: * Toujeo 70 units BID + Novolog 50/50/90/40 The patient is currently receiving: * Basal insulin: Lantus 70 units every 12 hours * Correctional Insulin: Novolog Correction per scale ACHS Goal Range: Low 110 mg/dL - High 140 mg/dL Correction Factor: 8 mg/dL/unit * Prandial insulin: Per carb ratio of 1 unit per 1.5 grams CHO consumed Risk Factors for Insulin Resistance: * Steroids: Prednisone 15 mg daily (chronic dose) * Diet: AHA/T2DM Assessment & Plan ASSESSMENT: * 60 year old T2DM female admitted with progressive weakness and acute on chronic kidney injury secondary to dehydration. Patient is well known to the glycemic service and was recently here 07/11-07/17. Her total out patient insulin dose is ~370 units. * Pt s/p perm cath placement 07/25. Received HD sessions 07/25 & 07/26. * Dialysis can cause increased hyperglycemia secondary to high dextrose content dialysates. However, typically, patients become more insulin sensitive following HD. * Now that pt overall condition has changed to chronic HD expect that she will no longer require the enormous outpatient dosing of insulin that she previous did. * BSGs 194, 182, 177, 199, 116, 106 over the past 24hrs * This is superb glycemic control as compared to previous admissions. * Pt only required 160units of insulin yesterday but was NPO for perm cath and minimal PO intake after HD secondary to increased pain * Will empirically reduce insulin regimen secondary to HD. Continue to titrate regimen based on BSG trends. PLAN FOR INPATIENT GLYCEMIC CONTROL: Pt typically requires 250-300 units of insulin per day while admitted {but uses ~370 units as an outpatient}. Expect insulin needs to decrease now that patient will be receiving chronic HD. Dialysates can cause hyperglycemia but patients typically become more insulin sensitive after HD sessions. * Basal insulin * Decrease Lantus SQ BID- change dosing based on BSG to help prevent hypo * Lantus 60 units if BSG 140mg/dl or below * Lantus 70 units if BSG 141mg/dl or above * Give one time dose of 60 units this morning for NPO/OR * Bolus Insulin * NovoLog ACHS or Q6hrs * Goal Range: Low 110 mg/dL - High 140 mg/dL * Correction Factor: 8mg/dL/unit * LOOSEN Nutritional / Prandial insulin per carb ratio of 1 unit per 2 grams CHO consumed * Please note that the plan above was derived based on current level of insulin resistance and hospital stress. These recommendations are appropriate for inpatient admission only. Plan of care upon discharge will need to be reassessed to avoid potential outpatient hypo/hyperglycemia. Thank you.
[2016-07-26] MEDS: HYDROmorphone INJ 1 MG/ML SYR IV PRN ×2 (18:10→23:47)
[2016-07-26] MEDS: VERAPAMIL HCL 240 MG TABCR PO SCH (21:06)
[2016-07-27] VITALS (7 sets, daily range): BP systolic 118–133; BP diastolic 64–75; PULSE 72–85; TEMP 36.5–36.8; O2SAT 91–98
[2016-07-27] MEDS ORDERED: INSULIN ASPART 100 UNITS/ML 3 ML PEN SC ONE (02:00)
[2016-07-27] MEDS: HEPARIN SOD 5000 UNIT/0.5 ML CARP SQ SCH ×3 (06:28→21:30)
[2016-07-27 07:53] LABS: HEMATOCRIT 36.8 % (37-47); MEAN CELL VOLUME 100.5 fL (80-100); MEAN CORPUSCULAR HEMOGLOBIN 30.3 pg (25-34); MEAN CORPUSCULAR HGB CONC 30.2 g/dl (32-36); MEAN PLATELET VOLUME 10.1 fL (7.4-10.4); PLATELET COUNT 237 K/uL (130-400); RED BLOOD COUNT 3.66 M/uL (4.2-5.4); WHITE BLOOD COUNT 10.87 K/uL (4.8-10.8)
[2016-07-27] MEDS: PREGABALIN 150 MG CAP PO SCH ×3 (08:22→19:49)
[2016-07-27] MEDS: CYANOCOBALAMIN 2,500 MCG SUBL TAB PO SCH (08:22)
[2016-07-27] MEDS: PYRIDOXINE HCL 50 MG TAB PO SCH (08:23)
[2016-07-27] MEDS: ATORVASTATIN 40 MG TAB PO SCH (08:23)
[2016-07-27] MEDS: METOPROLOL SUCC 50MG EXT REL TAB PO SCH (08:23)
[2016-07-27] MEDS: PANTOprazole SOD 40 MG TAB PO SCH (08:23)
[2016-07-27] MEDS: FLUTICASONE/SALMETEROL (ADVAIR) 500/50 INH 14 PUFF INH SCH ×2 (08:25→19:51)
[2016-07-27] MEDS: AMMONIUM LACTATE 12% LOTION 225 GM BTL EXT SCH ×2 (08:25→20:10)
[2016-07-27] MEDS: TIOTROPIUM BROMIDE 5 PUFF/90 MCG INH INH SCH (08:25)
[2016-07-27 08:27] LABS: BUN/CREATININE RATIO 23.1 (10-20); CREATININE 2.4 mg/dl (0.60-1.20); MAGNESIUM 2.4 mg/dl (1.8-2.4); PHOSPHORUS 2.3 mg/dl (2.5-4.9); POTASSIUM 4.2 mmol/L (3.5-5.1)
[2016-07-27] MEDS: INSULIN ASPART 100 UNITS/ML 3 ML PEN SC SCH ×4 (08:31→21:29)
[2016-07-27 08:32] LABS: CALCIUM 8.7 mg/dl (8.5-10.1)
[2016-07-27] MEDS: INSULIN GLARGINE SC SCH ×2 (08:32→19:58)
[2016-07-27] MEDS: BUMETANIDE 1 MG TAB PO SCH ×2 (09:52→19:51)
--- NOTE | 2016-07-27 09:59 | Pharmacy Progress Note ---
Glycemic Control: Progress Nt Date of Service July 27, 2016. Scope Glycemic Pharmacist consulted for glycemic control and to write orders per [facility] inpatient glycemic control protocol. Objective Accuchecks BSG (last 24hrs): Test 07/26/16 11:22 07/26/16 16:22 07/26/16 20:09 07/27/16 02:26 Bedside Glucose 106 mg/dl (70-90) 227 mg/dl (70-90) 266 mg/dl (70-90) 244 mg/dl (70-90) Test 07/27/16 06:44 07/27/16 07:30 Bedside Glucose 206 mg/dl (70-90) Random Glucose 227 mg/dl (70-99) Laboratory Data (last 24hrs) HbA1c: Item Value Date Time Hemoglobin A1c 6.3 % H 05/20/16 1326 * However, this result is likely somewhat unreliable in ESRD patients d/t interactions between the A1c analyzing technique and high levels of urea in ESRD , reduced RBC life span, iron deficiency anemia, and EPO administration. HbA1c > 7.5% in ESRD patient may overestimate the extent of hyperglycemia in ESRD patients. Recent Pertinent Medications Outpatient Anti-diabetic Regimen: * Toujeo 70 units BID + Novolog 50/50/90/40 The patient is currently receiving: * Basal insulin: Lantus 70 units every 12 hours * Correctional Insulin: Novolog Correction per scale ACHS Goal Range: Low 110 mg/dL - High 140 mg/dL Correction Factor: 8 mg/dL/unit * Prandial insulin: Per carb ratio of 1 unit per 2 grams CHO consumed Risk Factors for Insulin Resistance: * Steroids: Prednisone 15 mg daily (chronic dose) * Diet: AHA/T2DM Assessment & Plan ASSESSMENT: * 60 year old T2DM female admitted with progressive weakness and acute on chronic kidney injury secondary to dehydration. Patient is well known to the glycemic service and was recently here 07/11-07/17. Her total out patient insulin dose is ~370 units, however, typical inpatient total daily doses range from 100 units - 340units depending on PO intake. * Pt s/p perm cath placement 07/25. Received HD sessions 07/25 & 07/26. * Dialysis can cause increased hyperglycemia secondary to high dextrose content dialysates. However, typically, patients become more insulin sensitive following HD. * Now that pt overall condition has changed to chronic HD expect that she will no longer require the enormous outpatient dosing of insulin that she previous did. * BSGs 116, 106, 227, 266, 206 over the past 24hrs * This is superb glycemic control for Hemalatha as compared to previous admissions. * Pt received 232 units of insulin yesterday * 140 units of basal insulin * 92 units of prandial insulin --> of note, pt was underdosed with CHO coverage at lunch yesterday by calculator/user error. Should have received 35 units with lunch but instead received only 23 units. This lead to post-prandial hyperglycemia prior to dinner {BSG = 227} * Expect total daily insulin dose to be ~ 280 units/day - will adjust regimen accordingly. PLAN FOR INPATIENT GLYCEMIC CONTROL: Pt typically requires 250-300 units of insulin per day while admitted {but uses ~370 units as an outpatient}. Expect insulin needs to decrease now that patient will be receiving chronic HD. Dialysates can cause hyperglycemia but patients typically become more insulin sensitive after HD sessions. Continue dosing regimen based on total daily dose of ~ 280units/day * Basal insulin * Lantus 70 units SQ BID * Bolus Insulin * NovoLog ACHS or Q6hrs * Goal Range: Low 110 mg/dL - High 140 mg/dL * Correction Factor: 7mg/dL/unit * Nutritional / Prandial insulin per carb ratio of 1 unit per 1.5 grams CHO consumed * Please note that the plan above was derived based on current level of insulin resistance and hospital stress. These recommendations are appropriate for inpatient admission only. Plan of care upon discharge will need to be reassessed to avoid potential outpatient hypo/hyperglycemia. Thank you.
[2016-07-27] MEDS: HYDROmorphone INJ 1 MG/ML SYR IV PRN ×2 (10:06→19:47)
--- NOTE | 2016-07-27 11:51 | Nephrology Progress Note ---
Nephrology Progress Note Date of Service July 27, 2016. Chief Complaint GUNNAR Subjective No acute events overnight. Tolerated HD yesterday without complications; net UF 2 kg. Denies shortness of breath. Overall Hemalatha feels well and hopes that she can be discharged home soon. She refuses to consider inpatient rehab. She reports acceptable activity tolerance. Lower back and lower extremity pain have improved. She has been using pain medications predominately for discomfort at the permcath exit site. This discomfort was predominately associated with use of PPV mask. No fevers or chills. Review of Systems A complete review of systems was performed. Pertinent positives are noted above. All other systems are negative. Vital Signs Last 8 Hrs Date Time Temp Pulse Resp B/P Pulse Ox O2 Delivery O2 Flow Rate FiO2 07/27/16 08:00 Nasal Cannula 3.0 07/27/16 07:38 36.6 74 18 118/64 92 Nasal Cannula 3.0 Humidified Oxygen 07/27/16 04:11 36.5 72 18 119/75 98 BiPAP 07/27/16 04:00 Nasal Cannula I & O 24-Hour Column 07/27/16 08:00 Intake Total 1190 ml Output Total 2400 ml Balance -1210 ml Last Recorded Weight Weight (Kilograms): 137.700 Physical Exam General Appearance: no apparent distress, + obese Head: normocephalic, atraumatic Eyes: normal inspection, sclerae normal ENT: normal ENT inspection, pharynx normal Neck: supple, + pertinent finding ([facility] HD permcath) Respiratory/Chest: lungs clear, no respiratory distress, no accessory muscle use, + decreased breath sounds Cardiovascular: regular rate, rhythm, no gallop Abdomen/GI: non tender, + pertinent finding (obese, large ventral hernia) Extremities/Musculoskelatal: normal inspection, + pedal edema (significant chronic BL LE lymphedema) Neurologic/Psych: alert, normal mood/affect Family History Cancer Diabetes mellitus Gallbladder disease Heart disease Lung disease Social History Smoking Status: Former smoker Drug Use: none Marital Status: Housing Status: lives with family Occupation: unemployed Laboratory Results Past 24 Hours 07/27/16 07:30 07/27/16 07:30 Test 07/26/16 16:22 07/26/16 19:30 07/26/16 20:09 07/27/16 02:26 Bedside Glucose 227 mg/dl (70-90) 266 mg/dl (70-90) 244 mg/dl (70-90) Test 07/27/16 06:44 07/27/16 07:30 Bedside Glucose 206 mg/dl (70-90) Red Blood Count 3.66 M/uL (4.2-5.4) Mean Corpuscular Volume 100.5 fL (80-100) Mean Corpuscular Hemoglobin 30.3 pg (25-34) Mean Corpuscular Hemoglobin Concent 30.2 g/dl (32-36) RDW Standard Deviation 70.4 fL (36.4-46.3) RDW Coefficient of Variation 19.6 % (11.5-14.5) Mean Platelet Volume 10.1 fL (7.4-10.4) Nucleated RBC Absolute Count (auto) 0.26 K/uL (0-0) Nucleated Red Blood Cells % 2.4 % Anion Gap 7.0 mmol/L (3-11) Est Creatinine Clear Calc Drug Dose 34.3 ml/min Estimated GFR () 24.3 Estimated GFR (Non- 20.9 BUN/Creatinine Ratio 23.1 (10-20) Calcium Level 8.7 mg/dl (8.5-10.1) Phosphorus Level 2.3 mg/dl (2.5-4.9) Magnesium Level 2.4 mg/dl (1.8-2.4) Albumin 3.0 gm/dl (3.4-5.0) Allergies Coded Allergies: Daptomycin (Verified Allergy, Mild, HIVES, 07/24/16) itching Codeine (Verified Allergy, Unknown, unknown, 07/24/16) has tolerated morphine Iodine (Verified Allergy, Unknown, 07/24/16) Shellfish (Verified Allergy, Unknown, 07/24/16) Sulfamethoxazole w/Trimethoprim (Verified Allergy, Unknown, RASH, 07/24/16) Medications Current Inpatient Medications Medications (Trade) Dose Ordered Sig/Duyen Route Start Time Stop Time Status Last Admin Dose Admin Heparin Sodium (Porcine) (Heparin Sq 5000 Unit/0.5ml) 5,000 unit Q8H SQ 07/24/16 06:00 08/23/16 05:59 07/27/16 06:28 5,000 UNIT Acetaminophen (Tylenol Tab) 650 mg Q4H PRN PO 07/24/16 03:15 08/23/16 03:14 07/25/16 21:26 650 MG Al Hydrox/Mg Hydrox/Simethicone (Maalox Max Susp) 15 ml Q4H PRN PO 07/24/16 03:15 08/23/16 03:14 Magnesium Hydroxide (Milk Of Magnesia Susp) 30 ml Q12H PRN PO 07/24/16 03:15 08/23/16 03:14 Zolpidem Tartrate (Ambien Tab) 5 mg HSZ PRN PO 07/24/16 03:15 08/23/16 03:14 07/25/16 21:25 5 MG Ondansetron HCl (Zofran Inj) 4 mg Q6H PRN IV 07/24/16 03:15 08/23/16 03:14 Polyethylene (Miralax Powder Packet) 17 gm DAILY PRN PO 07/24/16 03:15 08/23/16 03:14 Atorvastatin Calcium (Lipitor Tab) 40 mg QAM PO 07/24/16 09:00 08/23/16 08:59 07/27/16 08:23 40 MG Salmeterol Xinafoate/ Fluticasone (Advair Diskus 500/50 Inh) 1 puff BID INH 07/24/16 09:00 08/23/16 08:59 07/27/16 08:25 1 PUFF Albuterol/ Ipratropium (Duoneb) 1 ml Q6 PRN INH 07/24/16 03:15 08/23/16 03:14 Ammonium Lactate (Lac-Hydrin) 1 appl BID EXT 07/24/16 09:00 08/23/16 08:59 07/27/16 08:25 1 APPL Metoprolol Succinate (Toprol Xl Tab) 150 mg DAILY PO 07/24/16 09:00 08/23/16 08:59 07/27/16 08:23 150 MG Miconazole Nitrate (Desenex Powder) 1 appln PRN PRN EXT 07/24/16 03:15 08/23/16 03:14 Pantoprazole Sodium (Protonix Tab) 40 mg QAM PO 07/24/16 09:00 08/23/16 08:59 07/27/16 08:23 40 MG Pregabalin (Lyrica Cap) 150 mg TID PO 07/24/16 09:00 08/23/16 08:59 07/27/16 08:22 150 MG Pyridoxine HCl (Vitamin B-6 Tab) 200 mg DAILY PO 07/24/16 09:00 08/23/16 08:59 07/27/16 08:23 200 MG Tiotropium [place] (Spiriva Handihaler Inhaler) 1 puff DAILY INH 07/24/16 09:00 08/23/16 08:59 07/27/16 08:25 1 PUFF Verapamil HCl (Calan-Sr Tab) 240 mg HS PO 07/24/16 21:00 08/23/16 20:59 07/26/16 21:06 240 MG Cyanocobalamin (Vitamin B-12 Tab) 2,500 mcg DAILY PO 07/24/16 09:00 08/23/16 08:59 07/27/16 08:22 2,500 MCG Insulin Aspart (novoLOG ASPART) SLIDING SCALE ACHS SC 07/24/16 11:00 08/23/16 10:59 07/27/16 08:31 31 UNITS Glucose (Glucose 40% Gel) 15-30 GRAMS 15 GRAMS... UD PRN PO 07/24/16 11:00 08/23/16 10:59 Glucose (Glucose Chew Tab) 4-8 Tablets 4 Tabl... UD PRN PO 07/24/16 11:00 08/23/16 10:59 Dextrose (Dextrose 50% 50ML Syringe) 25-50ML OF 50% DW IV FOR... UD PRN IV 07/24/16 11:00 08/23/16 10:59 Glucagon (Glucagon Inj) 1 mg UD PRN SQ 07/24/16 11:00 08/23/16 10:59 Prednisone (PredniSONE TAB) 15 mg DAILY PO 07/25/16 09:00 08/24/16 08:59 07/27/16 08:23 15 MG Hydromorphone HCl (Dilaudid Inj) 0.5 mg Q4H PRN IV 07/26/16 18:00 08/09/16 17:59 07/27/16 10:06 0.5 MG Insulin Glargine (Lantus Vial) 70 unit BID SC 07/27/16 09:00 08/26/16 08:59 07/27/16 08:32 70 UNIT Bumetanide (Bumex Tab) 2 mg BID PO 07/27/16 09:00 08/26/16 08:59 07/27/16 09:52 2 MG Impression (1) Hypercalcemia (2) Hypokalemia (3) Metabolic alkalosis (4) Renal failure (ARF), acute on chronic (5) Morbid obesity with BMI of 50.0-59.9, adult (6) Obesity hypoventilation syndrome (7) Edema (8) Respiratory failure with hypercapnia Hemalatha Is a 60-year-old female with morbid obesity, obesity hypoventilation syndrome, recurrent hypercapnia, advanced chronic kidney disease , right heart failure and failure of diuretic therapy. She has had multiple recent hospitalizations for volume overload and electrolyte abnormalities associated with diuretics. Hemalatha developed GUNNAR on CKD 3 progressing to ESRD requiring perm cath placement and initiation of hemodialysis. Permcath was placed 07/25. She completed her first dialysis treatment on 07/25 and her second treatment 07/26. She is scheduled to start outpatient hemodialysis at [facility] under the care of Dr. Neri on Thursday07/29/16. Recommendations ESRD: -- Next treatment Thursday (Arrangements have been made at [facility] for HD on Thursday as outpatient) EDEMA: -- Continue Bumex 4 mg BID to encourage UOP -- Discontinue metolazone HYPOKALEMIA: -- Improved with HD -- Hold oral K replacement now HYPERCAPNEIA: -- Intermittent positive pressure ventilation HYPERCALCEMIA: -- 24 hour UPEP/immunofix obtained for review during outpatient hematology follow up
--- NOTE | 2016-07-27 19:39 | Family Medicine Progress Note ---
Progress Note Date of Service July 27, 2016. Subjective Pt evaluation today including: conversation w/ patient, conversation w/ family , physical exam, chart review, lab review Patient feeling well, denies acute issues. Is very happy with progress made secondary to dialysis. Says she has "never seen her legs so skinny." Otherwise eating well. Continues to decline inpatient therapy as she is happy with her intensive PT at [place]. Constitutional: + weakness (improved), + weight loss, No chills, No fatigue , No fever, No sweats Respiratory: No cough, No shortness of breath, No wheezing Cardiovascular: + edema (improved), + orthopnea, No PND, No chest pain, No palpitations Abdomen: No constipation, No diarrhea, No nausea, No pain, No vomiting Musculoskeletal: No joint pain, No muscle pain Female : No dysuria Objective Vital Signs Date Time Temp Pulse Resp B/P Pulse Ox O2 Delivery O2 Flow Rate FiO2 07/27/16 18:30 36.8 82 18 121/67 93 Nasal Cannula 3.0 07/27/16 16:00 Nasal Cannula 3.0 07/27/16 15:21 36.6 76 18 129/71 95 Nasal Cannula 3.0 Humidified Oxygen 07/27/16 13:00 91 07/27/16 12:00 Nasal Cannula 3.0 07/27/16 08:00 Nasal Cannula 3.0 07/27/16 07:38 36.6 74 18 118/64 92 Nasal Cannula 3.0 Humidified Oxygen 07/27/16 04:11 36.5 72 18 119/75 98 BiPAP 07/27/16 04:00 Nasal Cannula 07/27/16 00:01 Nasal Cannula 07/26/16 23:40 36.8 78 20 103/58 92 BiPAP 07/26/16 20:00 Nasal Cannula 07/26/16 19:40 36.8 78 18 119/73 92 Nasal Cannula 3.0 Humidified Oxygen Physical Exam General Appearance: WD/WN, no apparent distress Respiratory/Chest: lungs clear, normal breath sounds, no respiratory distress, no accessory muscle use, + pertinent finding (NC 3L O2) Cardiovascular: regular rate, rhythm, no murmur Abdomen: normal bowel sounds, non tender, soft Extremities: normal inspection, no calf tenderness, + pedal edema (improved), + swelling (improved) 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: alert, normal mood/affect, oriented x 3 Laboratory Results Results Past 24 Hours Test 07/27/16 02:26 07/27/16 06:44 07/27/16 07:30 07/27/16 11:56 Range/Units Bedside Glucose 244 206 262 70-90 mg/dl White Blood Count 10.87 4.8-10.8 K/uL Red Blood Count 3.66 4.2-5.4 M/uL Hemoglobin 11.1 12.0-16.0 g/dL Hematocrit 36.8 37-47 % Mean Corpuscular Volume 100.5 80-100 fL Mean Corpuscular Hemoglobin 30.3 25-34 pg Mean Corpuscular Hemoglobin Concent 30.2 32-36 g/dl RDW Standard Deviation 70.4 36.4-46.3 fL RDW Coefficient of Variation 19.6 11.5-14.5 % Platelet Count 237 130-400 K/uL Mean Platelet Volume 10.1 7.4-10.4 fL Nucleated RBC Absolute Count (auto) 0.26 0-0 K/uL Nucleated Red Blood Cells % 2.4 % Sodium Level 133 136-145 mmol/L Potassium Level 4.2 3.5-5.1 mmol/L Chloride Level 95 98-107 mmol/L Carbon Dioxide Level 31 21-32 mmol/L Anion Gap 7.0 3-11 mmol/L Blood Urea Nitrogen 56 7-18 mg/dl Creatinine 2.40 0.60-1.20 mg/dl Est Creatinine Clear Calc Drug Dose 34.3 ml/min Estimated GFR () 24.3 Estimated GFR (Non- 20.9 BUN/Creatinine Ratio 23.1 10-20 Random Glucose 227 70-99 mg/dl Calcium Level 8.7 8.5-10.1 mg/dl Phosphorus Level 2.3 2.5-4.9 mg/dl Magnesium Level 2.4 1.8-2.4 mg/dl Albumin 3.0 3.4-5.0 gm/dl Test 07/27/16 16:04 07/27/16 19:50 07/27/16 21:13 Range/Units Bedside Glucose 312 355 294 70-90 mg/dl Assessment and Plan 60 year old female with PMHx of cor pulmonale, CHF, COPD, chronic hypoxic respiratory failure requiring 3L oxygen at baseline and BiPAP overnight, DM, CKD , morbid obesity, HLD and chronic venous insufficiency presented to the ER with complaints of weakness. GUNNAR in setting of CKD - Secondary to diabetic nephropathy and hypertensive sclerosis. Creatinine on admission 2.5, baseline around 1.7-2, s/p Diamox 500mg - Nephrology consulted- recs appreciated. s/p PermCath placement 07/25. Tolerating HD well. No PO supplements required - Bumex 4 mg BID - Dilaudid PRN pain at PermCath site - consider lidocaine patch on discharge - Next treatment Thursday (arrangements have been made at [facility] for HD on Thursday as outpatient) - Trend BMP, Mg+, PO4, albumin Hypokalemia - repleted on admission. No further PO supplementation since on hemodialysis Hypercalcemia - diagnosed with MGUS. Serum free light chain ratio is elevated. UIEP was positive for IgG [place] monoclonal protein during outpatient workup. Followed by Dr. Delong, pending further evaluation - 24 hour UPEP/immunofix obtained for review during outpatient hematology follow up Cor pulmonale - Last echo 07/25/15: Hyperdynamic LV systolic function. Mild concentric LV hypertrophy. LV diastolic dysfunction. Mild RV dilatation and systolic dysfunction. Mild tricuspid regurgitation. Mildly elevated RV systolic pressure. Normal central venous pressure. Ejection Fraction = >70 % - Intermittent positive pressure ventilation recommended in addition to nightly - Daily weights - I's and O's COPD - controlled - Advair, Spiriva, DuoNeb - Home dose of prednisone 15mg daily - 3L O2 via nasal cannula during the day, BiPAP overnight Chronic venous insufficiency - improved with HD. Had cellulitis during last admission, weeping bilateral pedal edema - Keep legs elevated with daily dressing changes Abdominal wound/ leg Cellulitis - improved -14 day course doxycycline completed HTN - Continue Toprol-XL 150 mg and verapamil CR 240 mg DM - last HbA1c 6.3 on 05/20/16 - insulin sliding scale - Glycemic consult Gout - asymptomatic. - Allopurinol discontinued given HD - Prednisone should help with acute flares Peripheral neuropathy/chronic pain - Pregabalin 150mg TID VTE prophylaxis - Heparin SQ Continued [facility] stay due to: other Discharge planning: home Resident Tracking Resident Involvement: Resident Care Provided Care Provided: Adult Hospital Medicine History Resident Physician Supervision Note: I was present with Dr. Laughlin during the history and exam. I discussed the case with the resident and agree with the findings and plan as documented in the note. Any exceptions or clarifications are listed here. Pt reports improved sensation of weakness and without complaint of 'spasm/ twitching' at this time. Improved SOB to baseline on 3LO2 w/ intermittent CPAP. LE edema remains improved. Pain well controlled on present regimen. Reports no fever, chills, lightheadedness, palpitations, abd pain, n/v General Appearance: no apparent distress, obese Respiratory: chest non-tender, no respiratory distress, decreased breath sounds Cardiovascular: normal peripheral pulses, regular rate, rhythm, no murmur, other (stable improved pitting edema of the b/l LE) Gastrointestinal: normal bowel sounds, non tender, soft, no organomegaly Assessment/Plan 60 y/o female h/o CHF, CKD III, chronic LE edema, COPD, h/o cellulitis (LE and pannus) for fall 2/2 weakness/twitching COPD - at baseline 3LO2, w/ intermittent CPAP - continue prednisone, spiriva, duonebs - encourage CPAP use for improved oxygenation Post-procedural pain - continue dilaudid q6, taper in AM or transition to PO Acute on CKD stage III on dialysis - nephrology consulted, recommendations appreciated - fluid and electrolyte management recommendations per nephrology Electrolyte abnormalities - trend BMP in AM, next dialysis Thursday CHF - fluid status through dialysis, continue metoprolol DMII - basal/bolus regimen as noted, will titrate w/ FSBS HTN - continue metoprolol, verapamil Cellulitis - continue doxycycline
[2016-07-27] MEDS: VERAPAMIL HCL 240 MG TABCR PO SCH (21:31)
[2016-07-28] VITALS: O2SAT 93
[2016-07-28] MEDS: HYDROmorphone INJ 1 MG/ML SYR IV PRN ×2 (01:21→10:51)
[2016-07-28] MEDS: HEPARIN SOD 5000 UNIT/0.5 ML CARP SQ SCH ×2 (06:04→13:21)
[2016-07-28 06:31] LABS: HEMATOCRIT 35.6 % (37-47); MEAN CELL VOLUME 98.1 fL (80-100); MEAN CORPUSCULAR HEMOGLOBIN 29.5 pg (25-34); MEAN CORPUSCULAR HGB CONC 30.1 g/dl (32-36); MEAN PLATELET VOLUME 9.8 fL (7.4-10.4); PLATELET COUNT 199 K/uL (130-400); RED BLOOD COUNT 3.63 M/uL (4.2-5.4); WHITE BLOOD COUNT 10.45 K/uL (4.8-10.8)
[2016-07-28 06:59] LABS: BUN/CREATININE RATIO 29.8 (10-20); CALCIUM 8.4 mg/dl (8.5-10.1); CREATININE 2.5 mg/dl (0.60-1.20); MAGNESIUM 2.6 mg/dl (1.8-2.4); POTASSIUM 4.1 mmol/L (3.5-5.1)
[2016-07-28 07:00] LABS: PHOSPHORUS 3.4 mg/dl (2.5-4.9)
[2016-07-28 07:11] VITALS: BP 145/71; PULSE 65; TEMP 36.8; O2SAT 94
[2016-07-28] MEDS ORDERED: INSULIN GLARGINE SC SCH (08:00)
[2016-07-28] MEDS: PREGABALIN 150 MG CAP PO SCH ×2 (08:26→13:21)
[2016-07-28] MEDS: METOPROLOL SUCC 50MG EXT REL TAB PO SCH (08:28)
[2016-07-28] MEDS: CYANOCOBALAMIN 2,500 MCG SUBL TAB PO SCH (08:28)
[2016-07-28] MEDS: ATORVASTATIN 40 MG TAB PO SCH (08:28)
[2016-07-28] MEDS: BUMETANIDE 1 MG TAB PO SCH (08:28)
[2016-07-28] MEDS: TIOTROPIUM BROMIDE 5 PUFF/90 MCG INH INH SCH (08:29)
[2016-07-28] MEDS: PANTOprazole SOD 40 MG TAB PO SCH (08:29)
[2016-07-28] MEDS: FLUTICASONE/SALMETEROL (ADVAIR) 500/50 INH 14 PUFF INH SCH (08:29)
[2016-07-28] MEDS: PYRIDOXINE HCL 50 MG TAB PO SCH (08:29)
[2016-07-28] MEDS: AMMONIUM LACTATE 12% LOTION 225 GM BTL EXT SCH (08:33)
[2016-07-28] MEDS: INSULIN ASPART 100 UNITS/ML 3 ML PEN SC SCH ×2 (08:58→12:42)
[2016-07-28] MEDS ORDERED: BMX1 PO (11:07)
--- NOTE | 2016-07-28 11:08 | Nephrology Progress Note ---
Nephrology Progress Note Date of Service July 28, 2016. Chief Complaint GUNNAR Subjective No acute events overnight. Hemalatha feels well this morning. Tenderness at TDC site is improving. Her activity tolerance has also improved. She has increase strength and is looking forward to possible discharge home today. She denies fevers or chills. Denies shortness of breath, chest pain or palpitations. Review of Systems A complete review of systems was performed. Pertinent positives are noted above. All other systems are negative. Vital Signs Last 8 Hrs Date Time Temp Pulse Resp B/P Pulse Ox O2 Delivery O2 Flow Rate FiO2 07/28/16 08:00 Nasal Cannula 3.0 07/28/16 07:11 36.8 65 20 145/71 94 Nasal Cannula 3.0 I & O 24-Hour Column 07/28/16 08:00 Intake Total 750 ml Output Total 1050 ml Balance -300 ml Last Recorded Weight Weight (Kilograms): 137.700 Physical Exam General Appearance: no apparent distress, + obese Head: normocephalic, atraumatic Eyes: normal inspection, sclerae normal ENT: normal ENT inspection, pharynx normal Neck: supple, + pertinent finding (thick, RIJ TDC with dressing CDI) Respiratory/Chest: lungs clear, no respiratory distress, no accessory muscle use, + decreased breath sounds Cardiovascular: regular rate, rhythm, no murmur Abdomen/GI: non tender, soft Extremities/Musculoskelatal: normal inspection, + pedal edema Neurologic/Psych: alert, oriented x 3 Family History Cancer Diabetes mellitus Gallbladder disease Heart disease Lung disease Social History Smoking Status: Former smoker Drug Use: none Marital Status: Housing Status: lives with family Occupation: unemployed Laboratory Results Past 24 Hours 07/28/16 06:20 07/28/16 06:20 Test 07/27/16 11:56 07/27/16 16:04 07/27/16 19:50 07/27/16 21:13 Bedside Glucose 262 mg/dl (70-90) 312 mg/dl (70-90) 355 mg/dl (70-90) 294 mg/dl (70-90) Test 07/28/16 06:20 07/28/16 07:48 Red Blood Count 3.63 M/uL (4.2-5.4) Mean Corpuscular Volume 98.1 fL (80-100) Mean Corpuscular Hemoglobin 29.5 pg (25-34) Mean Corpuscular Hemoglobin Concent 30.1 g/dl (32-36) RDW Standard Deviation 67.7 fL (36.4-46.3) RDW Coefficient of Variation 19.5 % (11.5-14.5) Mean Platelet Volume 9.8 fL (7.4-10.4) Nucleated RBC Absolute Count (auto) 0.24 K/uL (0-0) Nucleated Red Blood Cells % 2.3 % Anion Gap 6.0 mmol/L (3-11) Est Creatinine Clear Calc Drug Dose 32.9 ml/min Estimated GFR () 23.1 Estimated GFR (Non- 19.9 BUN/Creatinine Ratio 29.8 (10-20) Calcium Level 8.4 mg/dl (8.5-10.1) Phosphorus Level 3.4 mg/dl (2.5-4.9) Magnesium Level 2.6 mg/dl (1.8-2.4) Albumin 3.0 gm/dl (3.4-5.0) Bedside Glucose 277 mg/dl (70-90) Allergies Coded Allergies: Daptomycin (Verified Allergy, Mild, HIVES, 07/24/16) itching Codeine (Verified Allergy, Unknown, unknown, 07/24/16) has tolerated morphine Iodine (Verified Allergy, Unknown, 07/24/16) Shellfish (Verified Allergy, Unknown, 07/24/16) Sulfamethoxazole w/Trimethoprim (Verified Allergy, Unknown, RASH, 07/24/16) Medications Current Inpatient Medications Medications (Trade) Dose Ordered Sig/Duyen Route Start Time Stop Time Status Last Admin Dose Admin Heparin Sodium (Porcine) (Heparin Sq 5000 Unit/0.5ml) 5,000 unit Q8H SQ 07/24/16 06:00 08/23/16 05:59 07/28/16 06:04 5,000 UNIT Acetaminophen (Tylenol Tab) 650 mg Q4H PRN PO 07/24/16 03:15 08/23/16 03:14 07/25/16 21:26 650 MG Al Hydrox/Mg Hydrox/Simethicone (Maalox Max Susp) 15 ml Q4H PRN PO 07/24/16 03:15 08/23/16 03:14 Magnesium Hydroxide (Milk Of Magnesia Susp) 30 ml Q12H PRN PO 07/24/16 03:15 08/23/16 03:14 Zolpidem Tartrate (Ambien Tab) 5 mg HSZ PRN PO 07/24/16 03:15 08/23/16 03:14 07/25/16 21:25 5 MG Ondansetron HCl (Zofran Inj) 4 mg Q6H PRN IV 07/24/16 03:15 08/23/16 03:14 Polyethylene (Miralax Powder Packet) 17 gm DAILY PRN PO 07/24/16 03:15 08/23/16 03:14 Atorvastatin Calcium (Lipitor Tab) 40 mg QAM PO 07/24/16 09:00 08/23/16 08:59 07/28/16 08:28 40 MG Salmeterol Xinafoate/ Fluticasone (Advair Diskus 500/50 Inh) 1 puff BID INH 07/24/16 09:00 08/23/16 08:59 07/28/16 08:29 1 PUFF Albuterol/ Ipratropium (Duoneb) 1 ml Q6 PRN INH 07/24/16 03:15 08/23/16 03:14 Ammonium Lactate (Lac-Hydrin) 1 appl BID EXT 07/24/16 09:00 08/23/16 08:59 07/27/16 20:10 1 APPL Metoprolol Succinate (Toprol Xl Tab) 150 mg DAILY PO 07/24/16 09:00 08/23/16 08:59 07/28/16 08:28 150 MG Miconazole Nitrate (Desenex Powder) 1 appln PRN PRN EXT 07/24/16 03:15 08/23/16 03:14 Pantoprazole Sodium (Protonix Tab) 40 mg QAM PO 07/24/16 09:00 08/23/16 08:59 07/28/16 08:29 40 MG Pregabalin (Lyrica Cap) 150 mg TID PO 07/24/16 09:00 08/23/16 08:59 07/28/16 08:26 150 MG Pyridoxine HCl (Vitamin B-6 Tab) 200 mg DAILY PO 07/24/16 09:00 08/23/16 08:59 07/28/16 08:29 200 MG Tiotropium [place] (Spiriva Handihaler Inhaler) 1 puff DAILY INH 07/24/16 09:00 08/23/16 08:59 07/28/16 08:29 1 PUFF Verapamil HCl (Calan-Sr Tab) 240 mg HS PO 07/24/16 21:00 08/23/16 20:59 07/27/16 21:31 240 MG Cyanocobalamin (Vitamin B-12 Tab) 2,500 mcg DAILY PO 07/24/16 09:00 08/23/16 08:59 07/28/16 08:28 2,500 MCG Insulin Aspart (novoLOG ASPART) SLIDING SCALE ACHS SC 07/24/16 11:00 08/23/16 10:59 07/28/16 08:58 68 UNITS Glucose (Glucose 40% Gel) 15-30 GRAMS 15 GRAMS... UD PRN PO 07/24/16 11:00 08/23/16 10:59 Glucose (Glucose Chew Tab) 4-8 Tablets 4 Tabl... UD PRN PO 07/24/16 11:00 08/23/16 10:59 Dextrose (Dextrose 50% 50ML Syringe) 25-50ML OF 50% DW IV FOR... UD PRN IV 07/24/16 11:00 08/23/16 10:59 Glucagon (Glucagon Inj) 1 mg UD PRN SQ 07/24/16 11:00 08/23/16 10:59 Prednisone (PredniSONE TAB) 15 mg DAILY PO 07/25/16 09:00 08/24/16 08:59 07/28/16 08:27 15 MG Hydromorphone HCl (Dilaudid Inj) 0.5 mg Q4H PRN IV 07/26/16 18:00 08/09/16 17:59 07/28/16 10:51 0.5 MG Bumetanide (Bumex Tab) 2 mg BID PO 07/27/16 09:00 08/26/16 08:59 07/28/16 08:28 2 MG Insulin Glargine (Lantus Vial) 75 unit BID SC 07/28/16 08:00 08/27/16 07:59 07/28/16 08:57 75 UNIT Insulin Aspart (novoLOG ASPART) SLIDING SCALE 0200 SC 07/29/16 02:00 07/29/16 02:01 Impression (1) Hypercalcemia (2) Hypokalemia (3) Metabolic alkalosis (4) Renal failure (ARF), acute on chronic (5) Morbid obesity with BMI of 50.0-59.9, adult (6) Obesity hypoventilation syndrome (7) Edema (8) Respiratory failure with hypercapnia Hemalatha is a 60-year-old female with morbid obesity, obesity hypoventilation syndrome, recurrent hypercapnia, advanced chronic kidney disease , right heart failure and failure of diuretic therapy. She has had multiple recent hospitalizations for volume overload and electrolyte abnormalities associated with diuretics. Hemalatha developed GUNNAR on CKD 3 progressing to ESRD requiring perm cath placement and initiation of hemodialysis. Permcath was placed 07/25. She completed her first dialysis treatment on 07/25 and her second treatment 07/26. She is scheduled to start outpatient hemodialysis at [facility] under the care of Dr. Neri on Thursday07/29/16. Recommendations ESRD: -- Next treatment tomorrow (Arrangements have been made at [facility] for HD on Thursday as outpatient) -- Catheter care discussed with patient and -- Follow up with Dr. Thapa will be arranged as outpatient for AVF planning and placement EDEMA: -- Continue Bumex 2 mg BID to encourage UOP -- Continue to hold metolazone HYPOKALEMIA: -- Discontinue oral KCl HYPERCAPNEIA: -- Intermittent positive pressure ventilation HYPERCALCEMIA: -- 24 hour UPEP/immunofix obtained for review during outpatient hematology follow up
--- NOTE | 2016-07-28 11:10 | Discharge Instructions ---
Discharge Instructions Date of Service July 28, 2016. Admission Reason for Admission: Arf, [id number]; Weakness Discharge Discharge Diagnosis / Problem: Acute Kidney Injury Discharge Goals Goal(s): Improve disease control, Therapeutic intervention Activity Recommendations Activity Limitations: resume your previous activity . Instructions / Follow-Up Instructions / Follow-Up You were diagnosed with worsening kidney function You were started on hemodialysis. Please continue taking bumex 4mg twice daily and you no longer need to take metolazone Please follow up for your hemodialysis appointment on Thursday Current Hospital Diet Patient's current hospital diet: AHA Diet (Heart Healthy), Diabetes Type 2 Diet , Renal Diet Discharge Diet Recommended Diet: AHA Diet (Heart Healthy), Diabetes Type 2 Diet Procedures Procedures Performed: Insertion Of Perm Catheter, Right Internal Jugular Approach, Ultrasound Localization Of Right Internal Jugular Vein, Fluoroscopy For Positioning Pending Studies Studies pending at discharge: no Laboratory Results Hemoglobin A1c Test 05/20/16 13:26 Range/Units Estimated Average Glucose 134 mg/dl Hemoglobin A1c 6.3 H 4.5-5.6 % Lipid Panel Test 05/20/16 13:26 Range/Units Triglycerides Level 202 H 0-150 mg/dl Cholesterol Level 126 0-200 mg/dl HDL Cholesterol 43 mg/dl Cholesterol/HDL Ratio 2.9 LDL Cholesterol, Calculated 43 mg/dl Medical Emergencies . Who to Call and When: Medical Emergencies: If at any time you feel your situation is an emergency, please call 911 immediately. . Non-Emergent Contact Non-Emergency issues call your: Primary Care Provider, Hat Liner . . "Provider Documentation" section prepared by Pavel Gagnon. . VTE Core Measure Inpt VTE Proph given/why not?: Unfractionated heparin SQ
[2016-07-28 12:30] VITALS: BP 145/71; PULSE 65; TEMP 36.8; O2SAT 94
[2016-07-28] MEDS ORDERED: TRAM-10 PO (12:51)
--- NOTE | 2016-07-28 13:06 | Discharge Summary ---
Discharge Summary Date of Service July 28, 2016. (Pavel Gagnon MD) Discharge Summary Admission Date: July 24, 2016 at 03:17 Discharge Date: July 28, 2016 Discharge Disposition: Home Principal Diagnosis: Acute Kidney Injury Immunizations: Have You Had Influenza Vaccine: Yes Influenza Vaccine Date: Apr 15, 2012 History of Tetanus Vaccine?: No History of Pneumococcal: Yes Pneumococcal Date: Jan 13, 2013 History of Hepatitis B Vaccine: No Procedures: dialysis catheter placement Consultations: nephrology surgery (Pavel Gagnon MD) Medication Reconciliation New Medications: Tramadol (Ultram) 50 Mg Tab 50 MG PO Q8H PRN for Pain for 14 Days, #42 TAB Bumetanide (Bumetanide) 1 Mg Tab 4 MG PO BID for 10 Days, #20 TAB Continued Medications: Allopurinol (Zyloprim) 100 Mg Tab 100 MG PO DAILY, TAB Ascorbic Acid (Vitamin C 500 mg) 1 Chw Chw 1000 MG PO DAILY Atorvastatin (Lipitor) 40 Mg Tab 40 MG PO DAILY, TAB Cholecalciferol (Vitamin D3) 1,000 Unit Tab 1000 UNITS PO DAILY for 90 Days, TAB 3 Refills Cyanocobalamin (Vitamin B-12) 2,500 Mcg Subl 2500 MCG PO DAILY Doxycycline Hyclate (Doxycycline Hyclate) 100 Mg Cap 100 MG PO BID, #13 CAP Fluticasone Prop/Salmeterol (Advair Diskus 500/50 60 Dose) 1 Ea Aerp 1 PUFF INH BID, INHALER Insulin Aspart (Novolog Flexpen) 100 Units/Ml Inj 50 UNITS SQ W/BREAKFAST Insulin Aspart (Novolog Flexpen) 100 Units/Ml Inj 50 UNITS SQ W/LUNCH Insulin Aspart (Novolog Flexpen) 100 Units/Ml Inj 90 UNITS SQ W/SUPPER Insulin Aspart (Novolog Flexpen) 100 Units/Ml Inj 40 UNITS SQ HS Insulin Glargine (Toujeo Solostar) 300 Unit/Ml Inj 70 UNIT SQ BID, #1 Ipratropium-Albuterol (Duoneb) 3 Ml Nebu 1 TREATMENT INH Q6 PRN for SOB/Wheezing, INHA Lactic Acid (Ammonium Lactate) (Amlactin) 12 % Lot 1 APPLN TOP BID Lorcaserin Hcl (Belviq) 10 Mg Tab 10 MG PO BID Metoprolol Succ (Toprol Xl) (Toprol-Xl ) 100 Mg Tabcr 150 MG PO DAILY, TAB Miconazole Nitrate (Desenex Shake Powder) 43 Appln/43 Gm Powd 1 APPLN EXT PRN PRN for Affected Skin Folds, #1 BTL 1 Refill Multiple Vitamins W/ Minerals (One Daily For Women) 1 Tab Tab 1 TAB PO DAILY Pantoprazole (Pantoprazole Sodium) 40 Mg Tab 40 MG PO QAM for 30 Days, #30 TAB Prednisone (Prednisone) 10 Mg Tab 10 MG PO DIRECTED, #45 0 Refills starting 06/23/16: take 2.5 tabs daily for 2 days, then 2 tabs daily for 2 days, then resume your 1.5 tablets daily thereafter. Take with food. Pregabalin (Lyrica) 150 Mg Cap 150 MG PO TID, CAP Pyridoxine (Vitamin B6) 100 Mg Tab 200 MG PO DAILY, TAB Tiotropium [place] (Spiriva Handihaler) 30 Puff/540 Mcg Aerp 1 CAP INH DAILY, INHALER Verapamil HCl (Verapamil HCl ER) 240 Mg Tabcr 240 MG PO HS for 30 Days Vitamin E (Vitamin E) 400 Unit Tab 800 UNITS PO DAILY Discontinued Medications: Bumetanide (Bumetanide) 1 Mg Tab 4 MG PO TID for 30 Days, #360 TAB Metolazone (Metolazone) 5 Mg Tab 5 MG PO QAM for 30 Days, #30 TAB Potassium Ext Rel (Klor-Con) 20 Meq Tabcr 80 MEQ PO DAILY, TAB Discharge Exam Patient feeling much better overnight. Will be getting dialysis tomorrow Denies any fatigue, weakness. palpitations, chest pain, shortness of breath, diarrhea, constipation or worsening leg swelling Review of Systems: Constitutional: No chills, No fever, No sweats Respiratory: No cough, No shortness of breath, No sputum Cardiovascular: No chest pain, No orthopnea, No palpitations Abdomen: No constipation, No diarrhea, No nausea, No pain, No vomiting Musculoskeletal: No joint pain, No muscle pain Genitourinary - Female: No dysuria Physical Exam: General Appearance: WD/WN, no apparent distress, + obese ENT: normal ENT inspection, hearing grossly normal, TMs normal, pharynx normal Neck: supple, no adenopathy, thyroid normal, + pertinent finding (unable to see JVD due to obese neck) Respiratory/Chest: lungs clear, normal breath sounds Cardiovascular: regular rate, rhythm, no gallop, no murmur, + pertinent finding (swelling of peripheries in lower extermities with chronic venous changes) Abdomen / GI: non tender, soft, no organomegaly, + distended Extremities: no calf tenderness 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: alert, normal mood/affect, oriented x 3 (Pavel Gagnon MD) Review of Systems: Constitutional: No fever Respiratory: No shortness of breath Cardiovascular: No chest pain Physical Exam: General Appearance: + obese (sitting in chair comfortably) Respiratory/Chest: lungs clear, no respiratory distress Cardiovascular: regular rate, rhythm Extremities: + pedal edema (bilaterally with venous stasis changes) 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: alert, oriented x 3 Skin: warm/dry (Dejah Bañuelos M.D.) Hospital Course 60 year old female with PMHx of cor pulmonale, CHF, COPD, chronic hypoxic respiratory failure requiring 3L oxygen at baseline and BiPAP overnight, DM, CKD , morbid obesity, HLD and chronic venous insufficiency presented to the ER with complaints of weakness. GUNNAR in setting of CKD - Secondary to diabetic nephropathy and hypertensive sclerosis. Creatinine on admission 2.5, baseline around 1.7-2, s/p Diamox 500mg - Nephrology consulted- recs appreciated. s/p PermCath placement 07/25. Tolerating HD well. No PO supplements required - Bumex 4 mg BID - Next treatment Thursday (arrangements have been made at [facility] for HD on Thursday as outpatient) Hypokalemia - repleted on admission. No further PO supplementation since on hemodialysis Hypercalcemia - diagnosed with MGUS. Serum free light chain ratio is elevated. UIEP was positive for IgG [place] monoclonal protein during outpatient workup. Followed by Dr. Delong, pending further evaluation - 24 hour UPEP/immunofix obtained for review during outpatient hematology follow up Cor pulmonale - Last echo 07/25/15: Hyperdynamic LV systolic function. Mild concentric LV hypertrophy. LV diastolic dysfunction. Mild RV dilatation and systolic dysfunction. Mild tricuspid regurgitation. Mildly elevated RV systolic pressure. Normal central venous pressure. Ejection Fraction = >70 % - Intermittent positive pressure ventilation recommended in addition to nightly COPD - controlled - Advair, Spiriva, DuoNeb - Home dose of prednisone 15mg daily - 3L O2 via nasal cannula during the day, BiPAP overnight Chronic venous insufficiency - improved with HD. Had cellulitis during last admission, weeping bilateral pedal edema - Keep legs elevated with daily dressing changes HTN - Continue Toprol-XL 150 mg and verapamil CR 240 mg DM - last HbA1c 6.3 on 05/20/16 Gout - asymptomatic. - Allopurinol discontinued given HD - Prednisone should help with acute flares Peripheral neuropathy/chronic pain - Pregabalin 150mg TID Total Time Spent: Less than 30 minutes This includes examination of the patient, discharge planning, medication reconciliation, and communication with other providers. (Pavel Gagnon MD) I have reviewed the medical record and performed a history and physical examination of this patient today. I have discussed the case with Dr. Gagnon. The above note reflects my findings, conclusions, and recommendations Patient now on Hemodialysis. Next dialysis due tomorrow. Treatment arranged on discharge. Total Time Spent: Greater than 30 minutes (35) (Dejah Bañuelos M.D.) Discharge Instructions Please refer to the electronic Patient Visit Report (Discharge Instructions) for additional information. (Pavel Gagnon MD) Additional Copies To Emily Isaac C.R.N.P
[2016-07-28] MEDS ORDERED: ULT50X PO (14:38)
[2016-07-29] MEDS ORDERED: INSULIN ASPART 100 UNITS/ML 3 ML PEN SC SCH (02:00)
[2016-07-29 02:28] LABS: HEPATITIS BE ANTIBODY TC 556 Nonreactive; HEPATITIS BE ANTIGEN TC 555 Nonreactive
[2016-07-31 07:41] LABS: ALBUMIN % 45.38 %; ALPHA-2-GLOBULIN % 16.03 %; BETA GLOBULIN % 16.97 %; CREATININE UR 109 MG/DL (20-320); GAMMA GLOBULIN % 16.38 %
[2016-08-13] MEDS ORDERED: METO100T44 PO (09:30)
[2016-08-13] MEDS ORDERED: PREG1CAP70 PO (09:37)
[2016-08-13] MEDS ORDERED: ALLO100T PO (11:43)
[2016-08-13] MEDS ORDERED: NVLGI/PEN SQ ×4 (11:43→13:26)
[2016-08-13] MEDS ORDERED: ADVIN50/60 INH (13:08)
[2016-08-13] MEDS ORDERED: MULT1TAB22 PO (13:08)
[2016-08-13] MEDS ORDERED: CHOL1000 PO (13:08)
[2016-08-13] MEDS ORDERED: ATOR-24 PO (13:08)
[2016-08-13] MEDS ORDERED: SPRIN/30 INH (13:08)
[2016-08-13] MEDS ORDERED: VITA1TAB4 PO (13:08)
[2016-08-13] MEDS ORDERED: PYRI100T4 PO (13:52)
[2016-08-13] MEDS ORDERED: ASCO500C43 PO (13:54)
[2016-08-13] MEDS ORDERED: LORC1TAB PO (17:18)
[2016-08-13] MEDS ORDERED: IPRASOL4 INH (17:18)
[2016-08-13] MEDS ORDERED: LACT1LOT3 TOP (17:18)
[2016-09-22] MEDS ORDERED: PRED10TA PO (14:40)
[2016-11-27] MEDS ORDERED: RXC5 PO (13:39)
[2016-11-27] MEDS ORDERED: LYR50 PO (13:39)
[2016-11-27] MEDS ORDERED: LDDP5 TD (13:39)
[2016-12-14] MEDS ORDERED: MCTP EXT (08:26)
[2016-12-14] MEDS ORDERED: HYDR-4079 PO (08:26)
[2016-12-14] MEDS ORDERED: NYSP EXT (08:26)
== END 2016-07-28 15:09 | disposition home health service (06) | DRG 682 ==
LOC: ENRESERVDT → ENRESERVTM → EDBD 21:10 → C.EDB 21:11 → C.2T 07-24 03:17 → C.MS4W 07-27 18:09
PROVIDERS: ADMIT Internal Medicine; ATTEND Family Medicine
PROC: 06H033Z Insertion of Infusion Device into Inferior Vena Cava, Percutaneous Approach (ICD-10-PCS; principal; 2016-07-25 09:00)
PROC: 5A1D00Z (ICD-10-PCS; 2016-07-26)
DX: N17.9 Acute kidney failure, unspecified (principal); I50.33 Acute on chronic diastolic (congestive) heart failure; Z68.43 Body mass index [BMI] 50.0-59.9, adult; L03.116 Cellulitis of left lower limb; L03.311 Cellulitis of abdominal wall; J96.02 Acute respiratory failure with hypercapnia; E66.2 Morbid (severe) obesity with alveolar hypoventilation; E87.3 Alkalosis; N18.3 Chronic kidney disease, stage 3 (moderate); J44.9 Chronic obstructive pulmonary disease, unspecified; E11.21 Type 2 diabetes mellitus with diabetic nephropathy; Z79.4 Long term (current) use of insulin; E86.0 Dehydration; D64.9 Anemia, unspecified; Z88.2 Allergy status to sulfonamides; E66.01 Morbid (severe) obesity due to excess calories; E87.6 Hypokalemia; M1A.9XX0 Chronic gout, unspecified, without tophus (tophi); I87.2 Venous insufficiency (chronic) (peripheral); G62.9 Polyneuropathy, unspecified; E83.52 Hypercalcemia; Z99.81 Dependence on supplemental oxygen; M19.91 Primary osteoarthritis, unspecified site

== ENCOUNTER → 2016-07-23 | Outpatient (CLI) | payer BC ==
[2016-07-23 12:35] LABS: BLOOD UREA NITROGEN 76 mg/dl (7-18); BUN/CREATININE RATIO 30.3 (10-20); CALCIUM 10.9 mg/dl (8.5-10.1); CHLORIDE 85 mmol/L (98-107); GLUCOSE 89 mg/dl (70-99); POTASSIUM 3.3 mmol/L (3.5-5.1); SODIUM 135 mmol/L (136-145)
[2016-07-23 13:25] LABS: CARBON DIOXIDE 48 mmol/L (21-32)
== END | disposition home or self-care (01) ==
LOC: C.LAB1850 10:53
PROVIDERS: ATTEND Internal Medicine Nephrology
DX: N17.9 Acute kidney failure, unspecified (principal)

== ENCOUNTER → 2016-08-08 | Outpatient (CLI) | payer BC ==
[~2016-08-08] MED LIST changes: +ADVIN50/60 INH; +ALLO100T PO; +ASCO500C43 PO; +ATOR-24 PO; +B-COCAP20 PO; +CALC667C PO; +CEPH500C PO; +CHOL1000 PO; +DOXY100C76 PO; +DOXY100T PO; +DRGTP50 TD; +FAMO1TAB47 PO; +HYDR-4079 PO; +HYDR-5688 PO; +INSU1.2I SC; +IPRASOL4 INH; +LACT1LOT3 TOP; +LDDP5 TD; +LIDO1CRE TOP; +LORC1TAB PO; +LYR50 PO; +LYR75 PO; -MCRK20 PO; +MCTP TOP; +MELA3TAB PO; +METO100T44 PO; +MULT1TAB22 PO; +NVLGI/PEN SQ; +NYSP EXT; +ONDA4TAB46 PO; +ONDA4TAB65 PO; +OXGN; +PANT40TA PO; +PHS667 PO; -POTA20TA16 PO; +PREG1CAP70 PO; +PYRI100T4 PO; +RXC5 PO; +SILV1CRE73 TOP; +SPRIN/30 INH; +ULT50X PO; +VERA1TAB52 PO; +VERA240C2 PO; +VITA1TAB4 PO; -ZRX5 PO
[2016-08-08 15:11] LABS: BLOOD UREA NITROGEN 59 mg/dl (7-18); BUN/CREATININE RATIO 14.3 (10-20); CARBON DIOXIDE 30 mmol/L (21-32); CHLORIDE 96 mmol/L (98-107); GLUCOSE 90 mg/dl (70-99); PHOSPHORUS 4.6 mg/dl (2.5-4.9); POTASSIUM 4.5 mmol/L (3.5-5.1); SODIUM 134 mmol/L (136-145)
[2016-08-08 15:22] LABS: CALCIUM 9.4 mg/dl (8.5-10.1)
== END | disposition home or self-care (01) ==
LOC: C.LAB1850 13:48
PROVIDERS: ATTEND Internal Medicine Nephrology
DX: R60.9 Edema, unspecified (principal)

== ENCOUNTER 2016-08-13 19:15 | Inpatient (IN) | payer BC ==
[~2016-08-13] VITALS: Ht 165.1 cm; Wt 139.6 kg
[~2016-08-13 19:15] MED LIST changes: -B-COCAP20 PO; -CALC667C PO; -CEPH500C PO; -DOXY100C76 PO; -DOXY100T PO; -DRGTP50 TD; -FAMO1TAB47 PO; -HYDR-4079 PO; -HYDR-5688 PO; -INSU1.2I SC; -LDDP5 TD; -LIDO1CRE TOP; -LYR50 PO; -LYR75 PO; -MCTP TOP; -MELA3TAB PO; -METO100T44 PO; +METO1TAB69 PO; -NYSP EXT; -ONDA4TAB46 PO; -ONDA4TAB65 PO; -OXGN; -PANT40TA PO; -PHS667 PO; -RXC5 PO; -SILV1CRE73 TOP; -VERA1TAB52 PO; -VERA240C2 PO
[2016-08-13 19:35] LABS: BASO % 0.4 %; BASO ABS # 0.04 K/uL (0-0.2); EOS % 2.1 %; HEMATOCRIT 37.1 % (37-47); IG% 0.8 %; LYMPH % 14.2 %; MEAN CELL VOLUME 98.7 fL (80-100); MEAN CORPUSCULAR HEMOGLOBIN 29.8 pg (25-34); MEAN CORPUSCULAR HGB CONC 30.2 g/dl (32-36); MEAN PLATELET VOLUME 10.2 fL (7.4-10.4); MONO % 10.4 %; NEUT % 72.1 %; PLATELET COUNT 247 K/uL (130-400); RED BLOOD COUNT 3.76 M/uL (4.2-5.4); WHITE BLOOD COUNT 10.55 K/uL (4.8-10.8)
--- NOTE | 2016-08-13 19:45 | DIAGNOSTIC IMAGING REPORT ---
CHEST ONE VIEW PORTABLE CLINICAL HISTORY: Generalized Weakness dyspnea COMPARISON STUDY: 07/23/2016 FINDINGS: Mild cardia megaly. Chronic prominence of pulmonary vasculature. Unchanging nodular density right upper lung. PermCath in superior vena cava. IMPRESSION: Chronic pulmonary vascular congestion. Mild stable cardiomegaly. Electronically signed by: Mateo Bone M.D. 08/13/2016 7:44 PM Dictated Date/Time: 08/13/2016 7:43 PM
[2016-08-13 19:47] LABS: PARTIAL THROMBOPLASTIN RATIO 0.9; PROTHROMBIN TIME (PATIENT) 10.2 SECONDS (9.0-12.0)
[2016-08-13 19:58] LABS: ANISOCYTOSIS PRESENT; COMPLETE YES
--- NOTE | 2016-08-13 20:09 | DIAGNOSTIC IMAGING REPORT ---
HEAD CT NONCONTRAST CT DOSE: 1547.15 mGy.cm HISTORY: Mental status change Generalized Weakness TECHNIQUE: Multiaxial CT images of the head were performed without the use of intravenous contrast. Comparison: 06/14/2016 Findings: The paranasal sinuses and mastoid air cells are clear. The calvarium and skull base are intact. The ventricles and sulci are within normal limits. There is no mass, hematoma, midline shift, or acute infarct. Impression: No acute intracranial abnormality. Electronically signed by: Mateo Bone M.D. 08/13/2016 8:08 PM Dictated Date/Time: 08/13/2016 8:06 PM
[2016-08-13 20:16] LABS: ALKALINE PHOSPHATASE 97 U/L (45-117); ALT/SGPT 43 U/L (12-78); AST/SGOT 24 U/L (15-37); BLOOD UREA NITROGEN 66 mg/dl (7-18); BUN/CREATININE RATIO 10.8 (10-20); CALCIUM 8.3 mg/dl (8.5-10.1); CARBON DIOXIDE 27 mmol/L (21-32); CHLORIDE 95 mmol/L (98-107); CKMB/CK RATIO 6.6 (0-3.0); GLUCOSE 113 mg/dl (70-99); MAGNESIUM 2.9 mg/dl (1.8-2.4); PHOSPHORUS 6.8 mg/dl (2.5-4.9); POTASSIUM 5.7 mmol/L (3.5-5.1); SODIUM 132 mmol/L (136-145)
--- NOTE | 2016-08-13 21:01 | EMERGENCY ROOM VISIT NOTE ---
History Report prepared by [place]: Kerri Viera Under the Supervision of: Dr. Pavel Reina M.D. First contact with patient: 19:22 Chief Complaint: ABDOMINAL PAIN Stated Complaint: FALL, WEAKNESS History of Present Illness The patient is a 60 year old female who presents to the Emergency Room with complaints of worsening generalized weakness for the past 2 days. She has been weak and falling often at home. Her notes that she is so weak and falling so often that he does not feel he is able to take care of her. She is fatigued and confused. She currently feels SOB. She denies any fever or head injury. She has been gaining weight. She started dialysis 3 weeks ago. She denies any drug or alcohol use. She is on oxygen at home. The history is limited due to the patient's AMS. Source of History: patient, spouse/significant other History Limited By: AMS Onset: 2 days ago Position: other (global) Quality: other (weakness) Timing: worsening Associated Symptoms: + SOB, + fatigue, No fevers Note: Pt reports falls, confusion, weight gain. Review of Systems See HPI for pertinent positives & negatives. A total of 10 systems reviewed and were otherwise negative. Past Medical & Surgical Medical Problems: (1) Abdominal wall cellulitis (2) Abdominal wall cellulitis (3) Abrasion of toe of right foot (4) Acute kidney injury (5) Acute on chronic diastolic (congestive) heart failure (6) Acute respiratory failure with hypoxia and hypercapnia (7) Anemia (8) Asymptomatic bacteriuria (9) Cellulitis of abdominal wall (10) Cellulitis of leg (11) Cervical Disc Degen (12) CHF (congestive heart failure) (13) Chronic kidney disease (CKD) stage G3b/A1, moderately decreased glomerular filtration rate (GFR) between 30-44 mL/min/1.73 square meter and albuminuria creatinine ratio less than 30 mg/g (14) CO2 narcosis (15) COPD (chronic obstructive pulmonary disease) (16) Cor pulmonale, chronic (17) Cystitis (18) Diab Mariama Wo Compl, Type Ii Or Unspec Type, Uncontrolled (19) Diabetes (20) Edema (21) Frequent falls (22) Hypercalcemia (23) Hypercalcemia (24) Hypokalemia (25) Hyponatremia (26) Metabolic alkalosis (27) Metabolic alkalosis with respiratory acidosis (28) Metabolic encephalopathy (29) Morbid obesity with BMI of 50.0-59.9, adult (30) Obesity hypoventilation syndrome (31) Obesity hypoventilation syndrome (32) Ovarian Cyst Nec/Nos (33) Pulmonary Collapse (34) Pulmonary nodules (35) Renal failure (ARF), acute on chronic (36) Sciatica (37) Venous stasis dermatitis of both lower extremities (38) Weakness Family History Cancer Diabetes mellitus Gallbladder disease Heart disease Lung disease Social History Smoking Status: Never Smoker Drug Use: none Marital Status: Housing Status: lives with family Occupation Status: unemployed Current/Historical Medications Scheduled Allopurinol (Zyloprim), 100 MG PO DAILY Ascorbic Acid (Vitamin C 500 mg), 1,000 MG PO DAILY Atorvastatin (Lipitor), 40 MG PO DAILY Cholecalciferol (Vitamin D3), 1,000 INTER.UNIT PO DAILY Doxycycline Hyclate (Doxycycline Hyclate), 100 MG PO DAILY Fluticasone Prop/Salmeterol (Advair Diskus 500/50 60 Dose), 1 PUFF INH BID Home O2 Therapy (Oxygen), 3 LITERS NA CONTINOUS Insulin Aspart (Novolog Flexpen), 50 UNITS SQ W/BREAKFAST Insulin Aspart (Novolog Flexpen), 50 UNITS SQ W/LUNCH Insulin Aspart (Novolog Flexpen), 90 UNITS SQ W/SUPPER Insulin Glargine (Toujeo Solostar), 70 UNITS SC TID Lactic Acid (Ammonium Lactate) (Amlactin), 1 APPLN TOP BID Lorcaserin Hcl (Belviq), 10 MG PO BID Metoprolol Succ (Toprol Xl) (Toprol-Xl ), 150 MG PO DAILY Multiple Vitamins W/ Minerals (One Daily For Women), 1 TAB PO DAILY Pantoprazole (Protonix), 40 MG PO DAILY Prednisone Tab (Prednisone), 15 MG PO DAILY Pregabalin (Lyrica), 150 MG PO BID Pyridoxine (Vitamin B6), 200 MG PO DAILY Tiotropium [place] (Spiriva Handihaler), 1 CAP INH DAILY Verapamil Hcl (Verapamil Hcl Er), 240 MG PO HS Vitamin E (Vitamin E), 800 INTER.UNIT PO DAILY Scheduled PRN Insulin Aspart (Novolog Flexpen), 40 UNITS SQ HS PRN for Late Night Snack Ipratropium-Albuterol (Duoneb), 1 TREATMENT INH Q6H PRN for SOB/Wheezing Miconazole Nitrate (Desenex Shake Powder), 1 APPLN TOP UD PRN for Affected Skin Folds Allergies Coded Allergies: Daptomycin (Verified Allergy, Mild, HIVES, 07/24/16) itching Codeine (Verified Allergy, Unknown, unknown, 07/24/16) has tolerated morphine Iodine (Verified Allergy, Unknown, 07/24/16) Shellfish (Verified Allergy, Unknown, 07/24/16) Sulfamethoxazole w/Trimethoprim (Verified Allergy, Unknown, RASH, 07/24/16) Physical Exam Vital Signs Date Time Temp Pulse Resp B/P (MAP) Pulse Ox O2 Delivery O2 Flow Rate FiO2 08/13/16 22:52 84 18 160/74 90 Nasal Cannula 4.0 08/13/16 22:25 84 19 90 08/13/16 22:20 85 23 92 08/13/16 22:15 84 25 95 08/13/16 22:14 157/73 08/13/16 22:13 84 24 147/73 95 Nasal Cannula 5.0 08/13/16 19:45 87 20 96 08/13/16 19:40 87 19 96 08/13/16 19:35 88 Room Air 08/13/16 19:35 86 17 96 08/13/16 19:31 146/72 08/13/16 19:30 85 19 96 08/13/16 19:27 86 08/13/16 19:26 36.8 87 22 151/97 92 Nasal Cannula 4.0 08/13/16 19:22 151/97 Physical Exam GENERAL: Patient is tired appearing, somnolent, falling asleep during exam. HEENT: No acute trauma, normocephalic atraumatic, mucous membranes moist, no nasal congestion, no scleral icterus. NECK: No stridor, no adenopathy, no meningismus, trachea is midline. CHEST: Port in right upper chest. LUNGS: Minimal breath sounds bilateral bases. No wheeze, no rhonchi. HEART: Regular rate and rhythm. No murmurs, rubs, gallops appreciated. ABDOMEN: Soft, nontender, bowel sounds positive, no masses appreciated, no peritonitis. BACK: No midline tenderness, no CVA tenderness EXTREMITIES: Normal motion all extremities, no cyanosis. Edema bilateral legs. NEUROLOGIC: Alert and oriented, no acute motor or sensory deficits, no focal weakness, cranial nerves grossly intact. SKIN: No rash, no jaundice, no diaphoresis. Medical Decision & Procedures ER Provider Diagnostic Interpretation: X ray results are stated below per my interpretation and the radiologist's interpretation. Radiology results and stated below per my review and radiologist interpretation: CHEST ONE VIEW PORTABLE CLINICAL HISTORY: Generalized Weakness dyspnea COMPARISON STUDY: 07/23/2016 FINDINGS: Mild cardia megaly. Chronic prominence of pulmonary vasculature. Unchanging nodular density right upper lung. PermCath in superior vena cava. IMPRESSION: Chronic pulmonary vascular congestion. Mild stable cardiomegaly. Electronically signed by: Mateo Bone M.D. 08/13/2016 7:44 PM Dictated Date/Time: 08/13/2016 7:[address]AST CT DOSE: 1547.15 mGy.cm HISTORY: Mental status change Generalized Weakness TECHNIQUE: Multiaxial CT images of the head were performed without the use of intravenous contrast. Comparison: 06/14/2016 Findings: The paranasal sinuses and mastoid air cells are clear. The calvarium and skull base are intact. The ventricles and sulci are within normal limits. There is no mass, hematoma, midline shift, or acute infarct. Impression: No acute intracranial abnormality. Electronically signed by: Mateo Bone M.D. 08/13/2016 8:08 PM Dictated Date/Time: 08/13/2016 8:06 PM Laboratory Results 08/13/16 18:52 Red Blood Count 3.76, Mean Corpuscular Volume 98.7, Mean Corpuscular Hemoglobin 29.8, Mean Corpuscular Hemoglobin Concent 30.2, Mean Platelet Volume 10.2, Neutrophils (%) (Auto) 72.1, Lymphocytes (%) (Auto) 14.2, Monocytes (%) (Auto) 10.4, Eosinophils (%) (Auto) 2.1, Basophils (%) (Auto) 0.4, Neutrophils # (Auto ) 7.61, Lymphocytes # (Auto) 1.50, Monocytes # (Auto) 1.10, Eosinophils # (Auto ) 0.22, Basophils # (Auto) 0.04 08/13/16 18:52 Test 08/13/16 18:52 08/13/16 21:04 White Blood Count 10.55 K/uL (4.8-10.8) Red Blood Count 3.76 M/uL (4.2-5.4) Hemoglobin 11.2 g/dL (12.0-16.0) Hematocrit 37.1 % (37-47) Mean Corpuscular Volume 98.7 fL (80-100) Mean Corpuscular Hemoglobin 29.8 pg (25-34) Mean Corpuscular Hemoglobin Concent 30.2 g/dl (32-36) Platelet Count 247 K/uL (130-400) Mean Platelet Volume 10.2 fL (7.4-10.4) Neutrophils (%) (Auto) 72.1 % Lymphocytes (%) (Auto) 14.2 % Monocytes (%) (Auto) 10.4 % Eosinophils (%) (Auto) 2.1 % Basophils (%) (Auto) 0.4 % Neutrophils # (Auto) 7.61 K/uL (1.4-6.5) Lymphocytes # (Auto) 1.50 K/uL (1.2-3.4) Monocytes # (Auto) 1.10 K/uL (0.11-0.59) Eosinophils # (Auto) 0.22 K/uL (0-0.5) Basophils # (Auto) 0.04 K/uL (0-0.2) RDW Standard Deviation 73.7 fL (36.4-46.3) RDW Coefficient of Variation 20.7 % (11.5-14.5) Immature Granulocyte % (Auto) 0.8 % Immature Granulocyte # (Auto) 0.08 K/uL (0.00-0.02) Nucleated RBC Absolute Count (auto) 0.17 K/uL (0-0) Nucleated Red Blood Cells % 1.6 % Anisocytosis PRESENT Prothrombin Time 10.2 SECONDS (9.0-12.0) Prothromb Time International Ratio 1.0 (0.9-1.1) Activated Partial Thromboplast Time 23.9 SECONDS (21.0-31.0) Partial Thromboplastin Ratio 0.9 Anion Gap 10.0 mmol/L (3-11) Est Creatinine Clear Calc Drug Dose 13.8 ml/min Estimated GFR () 7.9 Estimated GFR (Non- 6.8 BUN/Creatinine Ratio 10.8 (10-20) Calcium Level 8.3 mg/dl (8.5-10.1) Phosphorus Level 6.8 mg/dl (2.5-4.9) Magnesium Level 2.9 mg/dl (1.8-2.4) Total Bilirubin 0.3 mg/dl (0.2-1) Direct Bilirubin 0.1 mg/dl (0-0.2) Aspartate Amino Transf (AST/SGOT) 24 U/L (15-37) Alanine Aminotransferase (ALT/SGPT) 43 U/L (12-78) Alkaline Phosphatase 97 U/L (45-117) Total Creatine Kinase 35 U/L (26-192) Creatine Kinase MB 2.3 ng/ml (0.5-3.6) Creatine Kinase MB Ratio 6.6 (0-3.0) Troponin I < 0.015 ng/ml (0-0.045) Total Protein 9.8 gm/dl (6.4-8.2) Albumin 3.2 gm/dl (3.4-5.0) Lipase 349 U/L (73-393) Arterial Blood pH 7.22 (7.35-7.45) Arterial Blood Partial Pressure CO2 68 mmHg (35-46) Arterial Blood Partial Pressure O2 88 mm/Hg (80-95) Arterial Blood HCO3 27 mmol/L (19-24) Arterial Blood Oxygen Saturation 94.4 % (90-95) Arterial Blood Base Excess -2.0 mEq/L (-9-1.8) Arterial Blood Gas Delivery 5L Oleg Test POS (POS) Laboratory results as reviewed by me. ECG Indication: altered mental status, SOB/dyspnea Rate (beats per minute): 89 Rhythm: normal sinus Findings: peaked T-waves (mild, Lateral), no acute ischemic change, no ectopy ED Course 1922: The patient was evaluated in room B4B. A complete history and physical exam was performed. 2026: I reevaluated the patient. The requests pain medications for her. I informed her that pain medications are inappropriate given the patient's confusion. I discussed results and treatment plan with the patient and her . They verbalized understanding and agreement with the treatment plan. The patient will be evaluated for further management. 2032: I discussed the patient's case with Dr. Galaviz, [facility] hospital[place]. The patient will be evaluated for further treatment and disposition. Medical Decision Differential: Toxicological, Infectious, Stroke, SAH, Trauma, Electrolyte Abnormality, Hypoglycemia, Alcohol Intoxication, Drug Intoxication, Cardiac Abnormality, Sepsis, Meningitis/Encephalitis, Trauma, Excited Delirium, Serotonin Syndrome, Psychiatric, amongst other pathologies entertained. Medication Reconciliation: I attest that I have personally reviewed the patient 's current medication list. Blood Pressure Screening: Patient was found to have a slightly elevated blood pressure due to circumstances. I do not believe that the patient requires hypertension monitoring. 60 yr old female arrives for evaluation of generalized weakness and falling with altered mental status. Somnolent and falling asleep during exam. No clear evidence of infection found. She has mild hyperkalemia which is new along with some mild peaking of Ts, but not very impressive and will hold on excessive intervention for this currently as she will need dialysis as it is. She likely is somnolent from respiratory hypercapnia, which is also quite chronic. Maintaining O2 sats here and mental status not acutely worsening thus will avoid emergent CPAP. repetitively requesting narcotics for the patient though she does not appear in distress and I feel narcotic would likely put her in to fulminant respiratory failure but removing the current breath drive she has. did not seem happy with this answer but I feel it is in the best interest of patient to avoid narcotics or other sedative medications. Consults Time Called: 2029 Consulting Physician: Dr. Galaviz, [facility] [place] Returned Call: 2032 Discussed the patient's case. The patient will be evaluated for further treatment and disposition. Impression Primary Impression: Altered mental status Additional Impressions: Hyperkalemia Generalized weakness Respiratory failure with hypercapnia Scribe Attestation The scribe's documentation has been prepared under my direction and personally reviewed by me in its entirety. I confirm that the note above accurately reflects all work, treatment, procedures, and medical decision making performed by me. Departure Information Dispostion Being Evaluated By Hospitalist Referrals Emily Isaac, Semaj (PCP) Patient Instructions My [facility] Problem Qualifiers
[2016-08-13 21:16] LABS: ARTERIAL BLD GAS O2 SATURATION 94.4 % (90-95); ARTERIAL BLOOD GAS HCO3 27 mmol/L (19-24); ARTERIAL BLOOD GAS PO2 88 mm/Hg (80-95); ARTERIAL BLOOD GAS pH 7.22 (7.35-7.45)
[2016-08-13 21:17] LABS: ALLEN TEST POS (POS); O2 ADMINISTRATION 5L
[2016-08-13] MEDS ORDERED: INSU1.2I SC (21:28)
[2016-08-13] MEDS ORDERED: DOXY100T PO (21:28)
[2016-08-13] MEDS ORDERED: PRED10TA PO (21:31)
[2016-08-13] MEDS ORDERED: OXGN (21:31)
[2016-08-13] MEDS ORDERED: PANT40TA PO (21:31)
[2016-08-13] MEDS ORDERED: VERA240C2 PO (21:34)
[2016-08-13] MEDS ORDERED: MCTP TOP (21:42)
[2016-08-13] MEDS ORDERED: POLYETHYLENE (MIRALAX) 17 GM PACK PO PRN (23:45)
[2016-08-14] VITALS (25 sets, daily range): BP systolic 96–144; BP diastolic 43–77; PULSE 71–86; TEMP 36.2–36.9; O2SAT 93–96; Ht 165.1 cm; Wt 139.6 kg
[2016-08-14] MEDS ORDERED: HYDROmorphone INJ 0.5 MG/0.5 ML SYR IV STA (00:17)
--- NOTE | 2016-08-14 00:22 | History and Physical ---
History & Physical Date & Time of Service: Aug 14, 2016 at 00:22 Chief Complaint: Fall, Weakness Primary Care Physician: Emily Isaac C.R.N.P History of Present Illness 60-year-old female with a completed medical history consisting of chronic kidney disease currently on hemodialysis, diabetes mellitus, CHF, obesity hypoventilation, hypercalcemia presented to the ER with worsening generalized weakness for the last 2 days. Per the patient had been really weak and has been falling due to increased jerkiness and states that it is hard for him to take care of her. She has end-stage renal disease and had been undergoing dialysis and stated that she usually gets very weak and tired after dialysis. This afternoon she fell while trying to get out of the car but her had held her. Denied any injury to the head. Denies any fevers or chills. Denies chest pain, palpitations, nausea, vomiting or abdominal pain but complains of worsening shortness of breath. She states that the shortness of breath is mainly due to having her legs raised and abdomen pushing into her chest. She also complains of very severe low back pain secondary to tailbone fracture which she had several years ago and states that none of her pain medications at home are helping. Denies any numbness or tingling, bowel or bladder incontinence Past Medical/Surgical History Medical Problems: (1) Cellulitis of abdominal wall Status: Chronic (2) Cervical Disc Degen Status: Chronic (3) CHF (congestive heart failure) Status: Chronic (4) COPD (chronic obstructive pulmonary disease) Status: Chronic (5) Diab Mariama Wo Compl, Type Ii Or Unspec Type, Uncontrolled Status: Chronic (6) Diabetes Status: Chronic (7) Ovarian Cyst Nec/Nos Status: Chronic (8) Pulmonary Collapse Status: Resolved (9) Sciatica Status: Chronic Family History Cancer Diabetes mellitus Gallbladder disease Heart disease Lung disease Social History Smoking Status: Never Smoker Drug Use: none Marital Status: Housing status: lives with family Occupational Status: unemployed Immunizations History of Influenza Vaccine: Yes Influenza Vaccine Date: Apr 15, 2012 History of Tetanus Vaccine?: No History of Pneumococcal: Yes Pneumococcal Date: Jan 13, 2013 History of Hepatitis B Vaccine: No Multi-Drug Resistant Organisms History of MDRO: No Allergies Coded Allergies: Daptomycin (Verified Allergy, Mild, HIVES, 07/24/16) itching Iodine (Verified Allergy, Unknown, 07/24/16) Shellfish (Verified Allergy, Unknown, 07/24/16) Sulfamethoxazole w/Trimethoprim (Verified Allergy, Unknown, RASH, 07/24/16) Codeine (Verified Adverse Reaction, Unknown, NAUSEA, 08/14/16) has tolerated morphine Home Medications Scheduled Allopurinol (Zyloprim), 100 MG PO DAILY Ascorbic Acid (Vitamin C 500 mg), 1,000 MG PO DAILY Atorvastatin (Lipitor), 40 MG PO DAILY Cholecalciferol (Vitamin D3), 1,000 INTER.UNIT PO DAILY Doxycycline Hyclate (Doxycycline Hyclate), 100 MG PO DAILY Fluticasone Prop/Salmeterol (Advair Diskus 500/50 60 Dose), 1 PUFF INH BID Home O2 Therapy (Oxygen), 3 LITERS NA CONTINOUS Insulin Aspart (Novolog Flexpen), 50 UNITS SQ W/BREAKFAST Insulin Aspart (Novolog Flexpen), 50 UNITS SQ W/LUNCH Insulin Aspart (Novolog Flexpen), 90 UNITS SQ W/SUPPER Insulin Glargine (Toujeo Solostar), 70 UNITS SC TID Lactic Acid (Ammonium Lactate) (Amlactin), 1 APPLN TOP BID Lorcaserin Hcl (Belviq), 10 MG PO BID Metoprolol Succ (Toprol Xl) (Toprol-Xl ), 150 MG PO DAILY Multiple Vitamins W/ Minerals (One Daily For Women), 1 TAB PO DAILY Pantoprazole (Protonix), 40 MG PO DAILY Prednisone Tab (Prednisone), 15 MG PO DAILY Pregabalin (Lyrica), 150 MG PO BID Pyridoxine (Vitamin B6), 200 MG PO DAILY Tiotropium Somers (Spiriva Handihaler), 1 CAP INH DAILY Verapamil Hcl (Verapamil Hcl Er), 240 MG PO HS Vitamin E (Vitamin E), 800 INTER.UNIT PO DAILY Scheduled PRN Insulin Aspart (Novolog Flexpen), 40 UNITS SQ HS PRN for Late Night Snack Ipratropium-Albuterol (Duoneb), 1 TREATMENT INH Q6H PRN for SOB/Wheezing Miconazole Nitrate (Desenex Shake Powder), 1 APPLN TOP UD PRN for Affected Skin Folds Review of Systems Constitutional: No fever, No chills Eyes: No worsening of vision ENT: No hearing loss Respiratory: + shortness of breath, No cough Cardiovascular: No chest pain Abdomen: No pain, No nausea, No vomiting Musculoskeletal: + joint pain (low back pain) Genitourinary - Female: No dysuria, No urinary frequency, No urinary urgency Neurologic: No memory loss Psychiatric: No depression symptoms Endocrine: No fatigue Hematologic / Lymphatic: No abnormal bleeding/bruising Integumentary: No rash Physical Exam Vital Signs Date Time Temp Pulse Resp B/P (MAP) Pulse Ox O2 Delivery O2 Flow Rate FiO2 08/13/16 22:52 84 18 160/74 90 Nasal Cannula 4.0 08/13/16 22:25 84 19 90 08/13/16 22:20 85 23 92 08/13/16 22:15 84 25 95 08/13/16 22:14 157/73 08/13/16 22:13 84 24 147/73 95 Nasal Cannula 5.0 08/13/16 19:45 87 20 96 08/13/16 19:40 87 19 96 08/13/16 19:35 88 Room Air 08/13/16 19:35 86 17 96 08/13/16 19:31 146/72 08/13/16 19:30 85 19 96 08/13/16 19:27 86 08/13/16 19:26 36.8 87 22 151/97 92 Nasal Cannula 4.0 08/13/16 19:22 151/97 General Appearance: + obese Head: normocephalic Eyes: normal inspection ENT: hearing grossly normal Neck: supple Respiratory/Chest: lungs clear, normal breath sounds Cardiovascular: regular rate, rhythm Abdomen/GI: normal bowel sounds, non tender, soft Neurologic/Psych: alert, normal mood/affect, oriented x 3 Diagnostics Laboratory Results Results Past 24 Hours Test 08/13/16 18:52 08/13/16 21:04 Range/Units White Blood Count 10.55 4.8-10.8 K/uL Red Blood Count 3.76 4.2-5.4 M/uL Hemoglobin 11.2 12.0-16.0 g/dL Hematocrit 37.1 37-47 % Mean Corpuscular Volume 98.7 80-100 fL Mean Corpuscular Hemoglobin 29.8 25-34 pg Mean Corpuscular Hemoglobin Concent 30.2 32-36 g/dl Platelet Count 247 130-400 K/uL Mean Platelet Volume 10.2 7.4-10.4 fL Neutrophils (%) (Auto) 72.1 % Lymphocytes (%) (Auto) 14.2 % Monocytes (%) (Auto) 10.4 % Eosinophils (%) (Auto) 2.1 % Basophils (%) (Auto) 0.4 % Neutrophils # (Auto) 7.61 1.4-6.5 K/uL Lymphocytes # (Auto) 1.50 1.2-3.4 K/uL Monocytes # (Auto) 1.10 0.11-0.59 K/uL Eosinophils # (Auto) 0.22 0-0.5 K/uL Basophils # (Auto) 0.04 0-0.2 K/uL RDW Standard Deviation 73.7 36.4-46.3 fL RDW Coefficient of Variation 20.7 11.5-14.5 % Immature Granulocyte % (Auto) 0.8 % Immature Granulocyte # (Auto) 0.08 0.00-0.02 K/uL Nucleated RBC Absolute Count (auto) 0.17 0-0 K/uL Nucleated Red Blood Cells % 1.6 % Anisocytosis PRESENT Prothrombin Time 10.2 9.0-12.0 SECONDS Prothromb Time International Ratio 1.0 0.9-1.1 Activated Partial Thromboplast Time 23.9 21.0-31.0 SECONDS Partial Thromboplastin Ratio 0.9 Sodium Level 132 136-145 mmol/L Potassium Level 5.7 3.5-5.1 mmol/L Chloride Level 95 98-107 mmol/L Carbon Dioxide Level 27 21-32 mmol/L Anion Gap 10.0 3-11 mmol/L Blood Urea Nitrogen 66 7-18 mg/dl Creatinine 6.10 0.60-1.20 mg/dl Est Creatinine Clear Calc Drug Dose 13.8 ml/min Estimated GFR () 7.9 Estimated GFR (Non- 6.8 BUN/Creatinine Ratio 10.8 10-20 Random Glucose 113 70-99 mg/dl Calcium Level 8.3 8.5-10.1 mg/dl Phosphorus Level 6.8 2.5-4.9 mg/dl Magnesium Level 2.9 1.8-2.4 mg/dl Total Bilirubin 0.3 0.2-1 mg/dl Direct Bilirubin 0.1 0-0.2 mg/dl Aspartate Amino Transf (AST/SGOT) 24 15-37 U/L Alanine Aminotransferase (ALT/SGPT) 43 12-78 U/L Alkaline Phosphatase 97 45-117 U/L Total Creatine Kinase 35 26-192 U/L Creatine Kinase MB 2.3 0.5-3.6 ng/ml Creatine Kinase MB Ratio 6.6 0-3.0 Troponin I < 0.015 0-0.045 ng/ml Total Protein 9.8 6.4-8.2 gm/dl Albumin 3.2 3.4-5.0 gm/dl Lipase 349 73-393 U/L Arterial Blood pH 7.22 7.35-7.45 Arterial Blood Partial Pressure CO2 68 35-46 mmHg Arterial Blood Partial Pressure O2 88 80-95 mm/Hg Arterial Blood HCO3 27 19-24 mmol/L Arterial Blood Oxygen Saturation 94.4 90-95 % Arterial Blood Base Excess -2.0 -9-1.8 mEq/L Arterial Blood Gas Delivery 5L Oleg Test POS POS Diagnostic Radiology HEAD CT NONCONTRAST CT DOSE: 1547.15 mGy.cm HISTORY: Mental status change Generalized Weakness TECHNIQUE: Multiaxial CT images of the head were performed without the use of intravenous contrast. Comparison: 06/14/2016 Findings: The paranasal sinuses and mastoid air cells are clear. The calvarium and skull base are intact. The ventricles and sulci are within normal limits. There is no mass, hematoma, midline shift, or acute infarct. Impression: No acute intracranial abnormality. CHEST ONE VIEW PORTABLE CLINICAL HISTORY: Generalized Weakness dyspnea COMPARISON STUDY: 07/23/2016 FINDINGS: Mild cardia megaly. Chronic prominence of pulmonary vasculature. Unchanging nodular density right upper lung. PermCath in superior vena cava. IMPRESSION: Chronic pulmonary vascular congestion. Mild stable cardiomegaly. Electronically signed by: Mateo Bone M.D. 08/13/2016 7:44 PM Dictated Date/Time: 08/13/2016 7:43 PM EKG Normal sinus rhythm Normal ECG Impression Assessment and Plan 60-year-old female with a past medical history of cor pulmonale, CHF, COPD, chronic hypoxic respiratory failure requiring 3 L oxygen continuously, diabetes mellitus, CKD, morbid obesity, hyperlipidemia and chronic insufficiency presented to the ER with complaints of weakness and frequent falls due to excessive jerkiness. She has had several Recent hospitalizations for managing her fluid status Frequent falls: likely secondary to deconditioning, weakness, jerkiness - Head CT: Negative for any acute changes - Will require referral for inpatient rehabilitation - Physical therapy and occupational therapy consult Acute kidney injury in setting of chronic kidney disease : Currently on hemodialysis Secondary to diabetic nephropathy and hypertensive sclerosis - Creatinine on admission 6.1 - Scheduled for hemodialysis tomorrow -Nephrology consult Hyperkalemia: -K at 5.7 - EKG normal Monitor K Hypercalcemia: Serum free light chain ratio is elevated. UIEP was positive for IgG Dysart monoclonal protein during outpatient workup - Followed by Dr. Delong, pending further evaluation Cor pulmonale : Last echo 07/25/15: Hyperdynamic LV systolic function. Mild concentric LV hypertrophy. LV diastolic dysfunction. Mild RV dilatation and systolic dysfunction. Mild tricuspid regurgitation. Mildly elevated RV systolic pressure. Normal central venous pressure * Ejection Fraction = >70 % Daily weights, I's and O's COPD: - Advair, Spiriva, DuoNeb - Home dose of prednisone 15mg daily - 3L O2 via nasal cannula during the day, BiPAP overnight Chronic venous insufficiency - leg elevation with compression stockings HTN - Continue Toprol-XL 150 mg and verapamil CR 240 mg DM - last HbA1c 6.3 on 05/20/16 - insulin sliding scale - Glycemic consult Gout - asymptomatic - Allopurinol 100mg daily currently held Is currently on prednisone which would help with acute flares Peripheral neuropathy/chronic pain - Pregabalin 150 mg 3 times a day , Dilaudid when necessary VTE prophylaxis - Heparin SQ Full code Disposition: Admitted to telemetry We will require referral to inpatient rehabilitation considering frequent falls and deconditioning VTE Prophylaxis VTE Risk Assessment Done? Y/N: Yes Risk Level: Moderate Resident Tracking Resident Involvement: Resident Care Provided Care Provided: [facility] Medicine Assessment and Plan Attending Addendum: I have physically seen and examined this patient, have directed their medical care, have supervised the medical residents activities, and agree with the H&P as noted above, with the following changes: NONE
[2016-08-14] MEDS ORDERED: IV FLUIDS COMPLETED PRN (01:00)
[2016-08-14] MEDS ORDERED: MICONAZOLE NITRATE POWDER 43 GM EXT PRN (08:00)
[2016-08-14] MEDS ORDERED: ALBUT/IPRATROP 3MG/0.5MG NEB 3 ML VIAL INH PRN (08:00)
[2016-08-14] MEDS ORDERED: PHARMACY GLYCEMIC MGMT CONSULT PRN (08:19)
[2016-08-14] MEDS ORDERED: LORCASERIN HCL 10 MG PO SCH (09:00)
[2016-08-14 09:25] LABS: BASO % 0.1 %; BASO ABS # 0.01 K/uL (0-0.2); HEMATOCRIT 35.9 % (37-47); IG% 0.8 %; LYMPH % 12.9 %; LYMPH ABS # 1.09 K/uL (1.2-3.4); MEAN CORPUSCULAR HEMOGLOBIN 31.2 pg (25-34); MEAN CORPUSCULAR HGB CONC 31.2 g/dl (32-36); MEAN PLATELET VOLUME 9.7 fL (7.4-10.4); NEUT % 71.2 %; PLATELET COUNT 206 K/uL (130-400); RED BLOOD COUNT 3.59 M/uL (4.2-5.4); WHITE BLOOD COUNT 8.43 K/uL (4.8-10.8)
[2016-08-14 09:57] LABS: ANISOCYTOSIS PRESENT; CALCIUM 7.9 mg/dl (8.5-10.1); COMPLETE YES; POLYCHROMASIA 1+
[2016-08-14] MEDS: AMMONIUM LACTATE 12% LOTION 225 GM BTL EXT SCH ×2 (10:00→20:58)
[2016-08-14 10:04] LABS: BUN/CREATININE RATIO 10.7 (10-20); CREATININE 7.1 mg/dl (0.60-1.20)
[2016-08-14] MEDS: TIOTROPIUM BROMIDE 5 PUFF/90 MCG INH INH SCH (10:08)
[2016-08-14] MEDS: CHOLECALCIFEROL 1000 INTER.UNIT TAB PO SCH (10:08)
[2016-08-14] MEDS: FLUTICASONE/SALMETEROL (ADVAIR) 500/50 INH 14 PUFF INH SCH ×2 (10:08→20:48)
[2016-08-14] MEDS: METOPROLOL SUCC 50MG EXT REL TAB PO SCH (10:09)
[2016-08-14] MEDS: ATORVASTATIN 40 MG TAB PO SCH (10:10)
[2016-08-14] MEDS: ALLOPURINOL 100 MG TAB PO SCH (10:10)
[2016-08-14] MEDS: PYRIDOXINE HCL 50 MG TAB PO SCH (10:11)
[2016-08-14] MEDS: DOXYCYCLINE HYCLATE 100 MG CAP PO SCH (10:11)
[2016-08-14] MEDS: PANTOprazole SOD 40 MG TAB PO SCH (10:11)
[2016-08-14] MEDS: PREGABALIN 150 MG CAP PO SCH ×2 (10:20→20:49)
[2016-08-14] MEDS: ACETAMINOPHEN 325 MG TAB PO PRN ×3 (10:20→20:50)
[2016-08-14] MEDS ORDERED: HEPARIN SOD (PORCINE) 1000 UNIT/ML 10 ML VIAL IV SCH (10:30)
[2016-08-14] MEDS: INSULIN ASPART 100 UNITS/ML 3 ML PEN SC SCH ×4 (10:32→20:57)
[2016-08-14] MEDS: INSULIN GLARGINE SC SCH ×2 (10:33→20:56)
--- NOTE | 2016-08-14 11:16 | Pharmacy Progress Note ---
Glycemic Control Intl Consult Date of Service Aug 14, 2016. Scope Glycemic Pharmacist consulted by Dr Galaviz on 08/14/16 for glycemic control and to write orders per [facility] inpatient glycemic control protocol Objective Weight (Kilograms): 139.700 Accuchecks BSG (last 24hrs): Test 08/13/16 18:52 08/14/16 07:35 08/14/16 07:48 Random Glucose 113 mg/dl (70-99) Bedside Glucose 160 mg/dl (70-90) Laboratory Data (last 24hrs) Test 08/13/16 18:52 08/14/16 07:35 Anion Gap 10.0 mmol/L BUN/Creatinine Ratio 10.8 Blood Urea Nitrogen 66 mg/dl Creatinine 6.10 mg/dl Potassium Level 5.7 mmol/L Sodium Level 132 mmol/L White Blood Count 10.55 K/uL Red Blood Count 3.76 M/uL Hemoglobin 11.2 g/dL Hematocrit 37.1 % Mean Corpuscular Volume 98.7 fL Mean Corpuscular Hemoglobin 29.8 pg Mean Corpuscular Hemoglobin Concent 30.2 g/dl Platelet Count 247 K/uL Mean Platelet Volume 10.2 fL Neutrophils (%) (Auto) 72.1 % Lymphocytes (%) (Auto) 14.2 % Monocytes (%) (Auto) 10.4 % Eosinophils (%) (Auto) 2.1 % Basophils (%) (Auto) 0.4 % Neutrophils # (Auto) 7.61 K/uL Lymphocytes # (Auto) 1.50 K/uL Monocytes # (Auto) 1.10 K/uL Eosinophils # (Auto) 0.22 K/uL Basophils # (Auto) 0.04 K/uL Recent Pertinent Medications Outpatient Anti-diabetic Regimen: * Toujeo 70 units TID + Novolog 50 units with breakfast and lunch, 90 units with dinner, and 40 units with evening snack * A1c = 6.3 % 05/20/16 Risk Factors for Insulin Resistance: * Steroids: prednisone 15 mg po daily * Infection: doxycycline 100 mg PO daily (unknown indication) * Recent Surgery: perm-cath insertion last hospital stay * Diet: type 2 diabetic diet Assessment & Plan ASSESSMENT: * ADA & AACE recommend a goal blood sugar range 140-180 mg/dl for the majority of critically ill & non-critically ill patients. However, more stringent targets may be selected in individual cases. Will utilize more stringent goal of 110-140mg/dl based on patient age & comorbidities. Additionally, tighter glycemic control is warranted to facilitate wound/infection healing. Previous data for Ms Gaytan demonstrate that she tolerates a lower blood sugar goal range. * Ms Gaytan is a 60 y/o F who is well known to the glycemic service. She was admitted 08/14/2016 for weakness. She has a PMH of ESRD recently started on HD, COPD, and CHF. She took Toujeo 70 unit 08/13 in the AM and Novolog 50 units with breakfast and lunch. Therefore, she MISSED a basal dose of insulin last night. Currently her blood sugar is 160 mg/dL. * Previous data demonstrates that Lantus 70 units twice daily is appropriate for Ms Gaytan. There are several days of data from when she started HD that shows this dose produces reasonably well controlled blood sugars. This will be started. I will not reduce the first dose (when patients take Toujeo, it is recommended to reduce the first dose of Lantus by 20-30% due to the longer half- life of Toujeo) because the last dose of Toujeo was ~24 hours ago and she missed her night dose of basal insulin. * For Novolog, during her last hospitalization, it was discovered that Ms Gaytan requires more carbohydrate coverage than correction factor coverage especially when her blood sugars are higher. This was especially seen when a correction factor of 8 and carbohydrate ratio of 1 produced better than average blood sugar control. Now there is concern that the low carbohydrate ratio may be too aggressive since she is now on dialysis. Dialysis can increase insulin sensitivity. I will therefore loosen the parameters slightly and start a correction factor of 8 and a carbohydrate ratio of 2. The lunch blood sugar was slightly elevated because morning Novolog given at 1030 and the lunch reading taken at 1104 AM. PLAN FOR INPATIENT GLYCEMIC CONTROL: * Basal insulin with LANTUS 70 units SQ BID * Correctional Insulin with NOVOLOG per scale ACHS * Goal Range: Low 110 mg/dL - High 140 mg/dL * Correction Factor: 8 mg/dL/unit * Nutritional / Prandial insulin per carb ratio of 1 unit per 2 grams CHO consumed * Please note that the plan above was derived based on current level of insulin resistance and hospital stress. These recommendations are appropriate for inpatient admission only. Plan of care upon discharge will need to be reassessed to avoid potential outpatient hypo/hyperglycemia. Thank you.
[2016-08-14] MEDS: CALCIUM ACETATE 667MG GELCAP PO SCH ×2 (11:30→17:06)
[2016-08-14] MEDS: HEPARIN SOD (PORCINE) 1000 UNIT/ML 10 ML VIAL IV SCH ×3 (12:30→13:42)
--- NOTE | 2016-08-14 14:09 | Clinical Documentation Query ---
JONATHON Rizzo : CLINICAL DOCUMENTATION QUERIES QUERY 1 OF 2 Patient is a 60 year old female admitted for evaluation of frequent falls, GUNNAR on CKD, currently on HD. Noted to have chronic hypoxic respiratory failure, on chronic home O2. ABG on admission with pH 7.22, pCO2 68, pO2 88, and HCO3 27. As appropriate, consider clarification as suggested below as this impacts DRG assignment. In your clinical opinion is this patient being managed for: (X ) Acute on chronic hypercapneic respiratory failure ( ) Other explanation of clinical findings (Please Explain) ( ) Unable to determine (Please Define) ( ) Need to Discuss ( ) Not Agree The medical record reflects the following clinical findings, treatment, and risk factors. Clinical Indicators:As above Treatment: Supplemental O2, BiPAP overnight, I/O, daily weights Risk Factors: Morbid obesity, age, immobility, ESRD with volume overload QUERY 2 OF 2 Documentation includes "chronic kidney disease, currently on hemodialysis". Patient started HD a few weeks ago and estimated GFR over this interval of < 15 ml/min. In order to capture the intended level of severity and risk of mortality, consider documentation as suggested below. Thank you. In your clinical opinion is this patient being managed for: ( X ) Chronic kidney disease stage 5 requiring hemodialysis ( ) Other explanation of clinical findings (Please Explain) ( ) Unable to determine (Please Define) ( ) Need to Discuss ( ) Not Agree The medical record reflects the following clinical findings, treatment, and risk factors. Clinical Indicators: As above Treatment: Telemetry, serial chemistries, nephrology consultation Risk Factors: Age, obesity, medications, hypertension, chronic diastolic CHF Please clarify and document your clinical opinion in the progress notes and discharge summary. Terms such as "probable", "suspected", "likely", "questionable", "possible", or "still to be ruled out" are acceptable. IF IN AGREEMENT, YOU MUST DOCUMENT ABOVE DIAGNOSTIC STATEMENT IN DAILY PROGRESS NOTES AND DISCHARGE SUMMARY. This document is not part of the patient's record. Thank You, Jefferson Whalen, JOAO [phone]
[2016-08-14] MEDS ORDERED: NURSING VERBAL MED ORDER ONE ×2 (17:00→22:00)
--- NOTE | 2016-08-14 17:16 | Nephrology Consultation ---
Nephrology Consultation Date & Providers Date of Consultation: Aug 14, 2016. Primary Care Provider: Emily Isaac C.R.N.P Referring Provider: Reason for Consultation ESRD History of Present Illness Mrs. Gaytan is a 60 female who is well known to the [facility] nephrology service. She was seen and evaluated in her hospital room this morning. Consultation was requested to provide management of ESRD while hospitalized. Medical records in the hospital EMR were reviewed in detail and the plan of care was discussed with the hospitalist team and the patient's primary chronic manager. Hemalatha was then arranged to have her scheduled dialysis treatment which was completed today without complications. She was admitted to [facility] yesterday with lethargy. Hemalatha presented to the ED after having several appointments earlier in the day including vascular surgery for vein mapping, evaluation by her PCP and physical therapy. Family was seen by Dr. Neri in the Nephrology Clinic on Thursday. On Thursday she was seen and evaluated during hemodialysis by Dr. Neri. Last week I had seen the patient during her dialysis treatment. At that time she appeared to be doing well. Patient started hemodialysis at the end of June during a prior hospitalization. Hemodialysis was necessary to help manage refractory volume overload with multiple electrolyte abnormalities attributed to diuretics. She has not had any specific complications with the dialysis procedure. Due to her complicated pulmonary history history of recurrent hypercarbia, she is maintained on intermittent BiPAP. Patient reported that she was not able to tolerate this treatment for few days prior to this recent hospitalization. She has also been struggling with pain control regarding her arthritis which has been an ongoing issue. Activity tolerance remains very poor. Following admission, lethargy improved with BiPAP. Additional improvement was noted today following dialysis Past Medical/Surgical History Medical: # ESRD on HD # HTN # AODM # Obesity (BMI 56) # COPD - on chronic O2 at 3 L/min ATC # Obesity hypoventilation syndrome -- followed by pulmonology and maintained on intermittent BIPAP # Lung nodule - stable over several years of observation by pulmonology # Arthritis # Chronic lower extremity edema due to obesity hypoventilation syndrome/ pulmonary hypertension. Managed with PT for lymphedema, diuretics and hemodialysis. Echocardiogram October 2014 revealed LVEF 55 - 60%, mild LVH, RVSP 45, mild RV dilation and moderate TR # Serum monoclonal light chain - monitored by Dr. Delong # History of hypercalcemia - also monitored Surgical: TDC placement 07/25/16 Allergies Coded Allergies: Daptomycin (Verified Allergy, Mild, HIVES, 07/24/16) itching Codeine (Verified Allergy, Unknown, unknown, 07/24/16) has tolerated morphine Iodine (Verified Allergy, Unknown, 07/24/16) Shellfish (Verified Allergy, Unknown, 07/24/16) Sulfamethoxazole w/Trimethoprim (Verified Allergy, Unknown, RASH, 07/24/16) Inpatient Medications Current Inpatient Medications Medications (Trade) Dose Ordered Sig/Duyen Route Start Time Stop Time Status Last Admin Dose Admin Acetaminophen (Tylenol Tab) 650 mg Q4H PRN PO 08/13/16 23:45 09/12/16 23:44 08/14/16 15:37 650 MG Ondansetron HCl (Zofran Inj) 4 mg Q6H PRN IV 08/13/16 23:45 09/12/16 23:44 Polyethylene (Miralax Powder Packet) 17 gm DAILY PRN PO 08/13/16 23:45 09/12/16 23:44 Miscellaneous (Iv Fluids Completed) 1 ea PRN PRN N/A 08/14/16 01:00 08/14/17 00:59 Miscellaneous Information (Consult Glycemic Management Pharmacy) 1 ea UD PRN N/A 08/14/16 08:19 09/13/16 08:18 Allopurinol (Zyloprim Tab) 100 mg DAILY PO 08/14/16 10:00 09/13/16 09:59 08/14/16 10:10 100 MG Atorvastatin Calcium (Lipitor Tab) 40 mg DAILY PO 08/14/16 10:00 09/13/16 09:59 08/14/16 10:10 40 MG Cholecalciferol (Vitamin D Tab) 1,000 inter.unit DAILY PO 08/14/16 10:00 09/13/16 09:59 08/14/16 10:08 1,000 INTER.UNIT Salmeterol Xinafoate/ Fluticasone (Advair Diskus 500/50 Inh) 1 puff BID INH 08/14/16 10:00 09/13/16 09:59 08/14/16 10:08 1 PUFF Albuterol/ Ipratropium (Duoneb) 3 ml Q6H PRN INH 08/14/16 08:00 09/13/16 07:59 Ammonium Lactate (Lac-Hydrin) 1 appl BID EXT 08/14/16 10:00 09/13/16 09:59 08/14/16 10:00 1 APPL Metoprolol Succinate (Toprol Xl Tab) 150 mg DAILY PO 08/14/16 10:00 09/13/16 09:59 08/14/16 10:09 150 MG Miconazole Nitrate (Desenex Powder) 1 appln UD PRN EXT 08/14/16 08:00 09/13/16 07:59 Pantoprazole Sodium (Protonix Tab) 40 mg DAILY PO 08/14/16 10:00 09/13/16 09:59 08/14/16 10:11 40 MG Prednisone (PredniSONE TAB) 15 mg DAILY PO 08/14/16 10:00 09/13/16 09:59 08/14/16 10:09 15 MG Pregabalin (Lyrica Cap) 150 mg BID PO 08/14/16 09:00 09/13/16 08:59 08/14/16 10:20 150 MG Pyridoxine HCl (Vitamin B-6 Tab) 200 mg DAILY PO 08/14/16 10:00 09/13/16 09:59 08/14/16 10:11 200 MG Tiotropium [place] (Spiriva Handihaler Inhaler) 1 puff DAILY INH 08/14/16 10:00 09/13/16 09:59 08/14/16 10:08 1 PUFF Doxycycline Hyclate (Vibramycin Cap) 100 mg DAILY PO 08/14/16 10:00 08/16/16 09:59 08/14/16 10:11 100 MG Verapamil HCl (Calan-Sr Tab) 240 mg HS PO 08/14/16 21:00 09/13/16 20:59 Insulin Glargine (Lantus Vial) 70 unit BID SC 08/14/16 09:00 09/13/16 08:59 08/14/16 10:33 70 UNIT Insulin Aspart (novoLOG ASPART) SLIDING SCALE ACHS SC 08/14/16 08:00 09/13/16 07:59 08/14/16 10:32 21 UNITS Calcium Acetate (Phoslo Cap) 667 mg TIDM PO 08/14/16 11:30 09/13/16 11:29 Family History Cancer Diabetes mellitus Gallbladder disease Heart disease Lung disease Social History Smoking Status: Never Smoker Drug Use: none Marital Status: Housing Status: lives with family Occupation: unemployed Review of Systems A complete review of systems was performed. Pertinent positives are noted above. All other systems are negative. Physical Exam Date Time Temp Pulse Resp B/P (MAP) Pulse Ox O2 Delivery O2 Flow Rate FiO2 08/14/16 16:22 36.9 81 19 95 4.0 08/14/16 15:47 36.9 81 110/54 (72) 08/14/16 15:30 Nasal Cannula 4.0 08/14/16 15:15 81 110/54 08/14/16 15:00 84 116/57 08/14/16 14:52 36.9 80 19 96/51 (66) 95 Nasal Cannula 3.0 08/14/16 14:45 80 96/51 08/14/16 14:30 79 118/55 08/14/16 14:15 81 115/52 08/14/16 14:00 83 119/55 08/14/16 13:45 82 110/59 08/14/16 13:30 85 113/57 08/14/16 13:15 86 144/54 08/14/16 13:00 81 112/62 08/14/16 12:45 82 121/57 08/14/16 12:36 78 110/56 08/14/16 12:30 78 102/56 08/14/16 12:15 78 118/54 08/14/16 12:00 36.8 77 16 125/51 (75) 95 Nasal Cannula 3.0 08/14/16 12:00 Nasal Cannula 4.0 08/14/16 12:00 78 119/48 08/14/16 11:45 77 126/43 08/14/16 11:43 71 125/51 08/14/16 11:30 36.8 75 129/56 (80) 08/14/16 07:30 CPAP 4.0 08/14/16 07:30 36.4 72 18 107/66 (80) 96 CPAP 4.0 08/14/16 04:03 36.2 77 18 126/77 (93) 96 08/14/16 04:00 CPAP 08/14/16 02:33 4.0 08/14/16 01:57 36.3 83 20 136/74 93 Nasal Cannula 3.0 08/14/16 01:16 149/64 08/14/16 01:10 77 19 96 08/14/16 01:01 142/64 08/14/16 00:50 76 16 93 08/14/16 00:46 150/64 08/14/16 00:31 148/64 08/14/16 00:30 78 21 92 08/14/16 00:16 147/70 08/14/16 00:10 79 20 92 08/14/16 00:01 153/64 08/13/16 23:50 80 19 93 08/13/16 23:46 152/80 08/13/16 23:31 137/80 08/13/16 23:30 81 18 92 08/13/16 23:16 159/119 08/13/16 23:10 80 21 92 08/13/16 23:01 151/78 08/13/16 22:52 84 18 160/74 90 Nasal Cannula 4.0 08/13/16 22:50 84 18 160/74 08/13/16 22:30 84 20 93 08/13/16 22:25 84 19 90 08/13/16 22:20 85 23 92 08/13/16 22:15 84 25 95 08/13/16 22:14 157/73 08/13/16 22:13 84 24 147/73 95 Nasal Cannula 5.0 08/13/16 19:45 87 20 96 08/13/16 19:40 87 19 96 08/13/16 19:35 88 Room Air 08/13/16 19:35 86 17 96 08/13/16 19:31 146/72 08/13/16 19:30 85 19 96 08/13/16 19:27 86 08/13/16 19:26 36.8 87 22 151/97 92 Nasal Cannula 4.0 08/13/16 19:22 151/97 General Appearance: + obese, + pertinent finding (morbidly obese, NAD) Head: normocephalic, atraumatic ENT: normal ENT inspection, pharynx normal Neck: + pertinent finding (Thick, no mass, unable to appreciate JVP) Respiratory/Chest: no respiratory distress, no accessory muscle use, + decreased breath sounds Cardiovascular: + pertinent finding (Distant S1/S2, no gallop or RV heave appreciated) Abdomen/GI: soft, + pertinent finding (obese, non-tender) Back: no CVA tenderness Extremities/Musculoskelatal: + pertinent finding (improving LE edema with chronic stasis changes) Neurologic/Psych: alert, oriented x 3 Laboratory Results Last 24 Hours Test 08/13/16 18:52 08/13/16 21:04 08/14/16 07:48 08/14/16 09:15 White Blood Count 10.55 K/uL 8.43 K/uL Red Blood Count 3.76 M/uL 3.59 M/uL Hemoglobin 11.2 g/dL 11.2 g/dL Hematocrit 37.1 % 35.9 % Mean Corpuscular Volume 98.7 fL 100.0 fL Mean Corpuscular Hemoglobin 29.8 pg 31.2 pg Mean Corpuscular Hemoglobin Concent 30.2 g/dl 31.2 g/dl Platelet Count 247 K/uL 206 K/uL Mean Platelet Volume 10.2 fL 9.7 fL Neutrophils (%) (Auto) 72.1 % 71.2 % Lymphocytes (%) (Auto) 14.2 % 12.9 % Monocytes (%) (Auto) 10.4 % 13.0 % Eosinophils (%) (Auto) 2.1 % 2.0 % Basophils (%) (Auto) 0.4 % 0.1 % Neutrophils # (Auto) 7.61 K/uL 5.99 K/uL Lymphocytes # (Auto) 1.50 K/uL 1.09 K/uL Monocytes # (Auto) 1.10 K/uL 1.10 K/uL Eosinophils # (Auto) 0.22 K/uL 0.17 K/uL Basophils # (Auto) 0.04 K/uL 0.01 K/uL RDW Standard Deviation 73.7 fL 74.8 fL RDW Coefficient of Variation 20.7 % 20.7 % Immature Granulocyte % (Auto) 0.8 % 0.8 % Immature Granulocyte # (Auto) 0.08 K/uL 0.07 K/uL Nucleated RBC Absolute Count (auto) 0.17 K/uL 0.13 K/uL Nucleated Red Blood Cells % 1.6 % 1.6 % Anisocytosis PRESENT PRESENT Prothrombin Time 10.2 SECONDS Prothromb Time International Ratio 1.0 Activated Partial Thromboplast Time 23.9 SECONDS Partial Thromboplastin Ratio 0.9 Sodium Level 132 mmol/L 130 mmol/L Potassium Level 5.7 mmol/L 6.0 mmol/L Chloride Level 95 mmol/L 93 mmol/L Carbon Dioxide Level 27 mmol/L 26 mmol/L Anion Gap 10.0 mmol/L 11.0 mmol/L Blood Urea Nitrogen 66 mg/dl 76 mg/dl Creatinine 6.10 mg/dl 7.10 mg/dl Est Creatinine Clear Calc Drug Dose 13.8 ml/min 11.7 ml/min Estimated GFR () 7.9 6.5 Estimated GFR (Non- 6.8 5.6 BUN/Creatinine Ratio 10.8 10.7 Random Glucose 113 mg/dl 234 mg/dl Calcium Level 8.3 mg/dl 7.9 mg/dl Phosphorus Level 6.8 mg/dl Magnesium Level 2.9 mg/dl Total Bilirubin 0.3 mg/dl Direct Bilirubin 0.1 mg/dl Aspartate Amino Transf (AST/SGOT) 24 U/L Alanine Aminotransferase (ALT/SGPT) 43 U/L Alkaline Phosphatase 97 U/L Total Creatine Kinase 35 U/L Creatine Kinase MB 2.3 ng/ml Creatine Kinase MB Ratio 6.6 Troponin I < 0.015 ng/ml Total Protein 9.8 gm/dl Albumin 3.2 gm/dl Lipase 349 U/L Arterial Blood pH 7.22 Arterial Blood Partial Pressure CO2 68 mmHg Arterial Blood Partial Pressure O2 88 mm/Hg Arterial Blood HCO3 27 mmol/L Arterial Blood Oxygen Saturation 94.4 % Arterial Blood Base Excess -2.0 mEq/L Arterial Blood Gas Delivery 5L Oleg Test POS Bedside Glucose 160 mg/dl Polychromasia 1+ Macrocytosis PRESENT Test 08/14/16 11:04 08/14/16 16:09 Bedside Glucose 205 mg/dl 166 mg/dl Impression (1) ESRD on hemodialysis (2) Hypercapnic respiratory failure (3) CO2 narcosis (4) Obesity hypoventilation syndrome (5) Hyperkalemia (6) Morbid obesity with BMI of 50.0-59.9, adult (7) Arthritis (8) Hyperphosphatemia Hemalatha is a 60-year-old female with morbid obesity, obesity hypoventilation syndrome, recurrent hypercapnia, advanced chronic kidney disease requiring MUSIC THERAPIST, right heart failure and failure of diuretic therapy. She has had multiple recent hospitalizations for volume overload and electrolyte abnormalities associated with diuretics. Hemalatha developed GUNNAR on CKD 3 progressing to ESRD requiring perm cath placement and initiation of hemodialysis during hospitalization in June 2016. Permcath was placed 07/25. She completed her first dialysis treatment on 07/25. She is on hemodialysis at [facility] TTS schedule. She currently dialyzes via a TDC. Vein mapping for future AVF placement was recently completed by Dr. Thapa. Recommendations ESRD: -- HD today per TTS schedule -- Net UF 2.2 L -- Catheter care per protocol -- Renal diet -- Medications currently appropriate for renal function CO2 narcosis/obesity hypoventilation syndrome: -- HCO3 bath adjusted with HD -- Discussed importance of PPV/intermittent BIPAP with patient in detail today -- Pulmonology consultation to assist with management Hyperkalemia: -- Potassium restrict diet -- 2k bath with HD -- Repeat metabolic profile tomorrow AM Hyperphosphatemia: -- Phoslo QAC with monitoring of serum calcium (noted history of hypercalcemia) Arthritis/chronic pain: -- Lyrica recently reduced -- Discourage aggressive use of opiates given concerns about acute and chronic CO2 retention and lethargy Anemia: -- Epogen held for hemoglobin >11 Hemalatha has multiple recent hospitalizations. This is the fifth hospitalization since April 2016. Her activity tolerance continues to decline. She is engaged in outpatient PT but will need to consider early options. PT/OT consult for this admission has been requested. -- Continue Bumex 2 mg BID to encourage UOP -- Continue to hold metolazone
[2016-08-14] MEDS ORDERED: BUTALBITAL/ACETAMIN/CAFFEINE TAB PO ONE (17:30)
[2016-08-14] MEDS: VERAPAMIL HCL 240 MG TABCR PO SCH (20:49)
[2016-08-14] MEDS ORDERED: HYDROCODONE/ACETAMOPHEN 5/325MG TAB ONE (22:05)
[2016-08-15] VITALS: O2SAT 93
[2016-08-15 07:37] VITALS: BP 115/67; PULSE 82; TEMP 36.9; O2SAT 94
[2016-08-15] MEDS: CHOLECALCIFEROL 1000 INTER.UNIT TAB PO SCH (07:49)
[2016-08-15] MEDS: FLUTICASONE/SALMETEROL (ADVAIR) 500/50 INH 14 PUFF INH SCH ×2 (07:49→20:42)
[2016-08-15] MEDS: TIOTROPIUM BROMIDE 5 PUFF/90 MCG INH INH SCH (07:49)
[2016-08-15] MEDS: DOXYCYCLINE HYCLATE 100 MG CAP PO SCH (07:50)
[2016-08-15] MEDS: PANTOprazole SOD 40 MG TAB PO SCH (07:50)
[2016-08-15] MEDS: PYRIDOXINE HCL 50 MG TAB PO SCH (07:50)
[2016-08-15] MEDS: CALCIUM ACETATE 667MG GELCAP PO SCH ×3 (07:50→17:17)
[2016-08-15] MEDS: ATORVASTATIN 40 MG TAB PO SCH (07:51)
[2016-08-15] MEDS: ALLOPURINOL 100 MG TAB PO SCH (07:51)
[2016-08-15] MEDS: METOPROLOL SUCC 50MG EXT REL TAB PO SCH (07:51)
[2016-08-15 07:53] LABS: BASO % 0.1 %; BASO ABS # 0.01 K/uL (0-0.2); HEMATOCRIT 36.9 % (37-47); IG% 0.7 %; LYMPH % 10.4 %; LYMPH ABS # 0.99 K/uL (1.2-3.4); MEAN CELL VOLUME 99.7 fL (80-100); MEAN CORPUSCULAR HGB CONC 30.1 g/dl (32-36); MEAN PLATELET VOLUME 9.9 fL (7.4-10.4); MONO % 12.3 %; NEUT % 74.5 %; PLATELET COUNT 208 K/uL (130-400); WHITE BLOOD COUNT 9.49 K/uL (4.8-10.8)
[2016-08-15] MEDS: PREGABALIN 150 MG CAP PO SCH (07:53)
[2016-08-15] MEDS: INSULIN ASPART 100 UNITS/ML 3 ML PEN SC SCH ×4 (07:56→20:41)
[2016-08-15] MEDS: INSULIN GLARGINE SC SCH ×2 (07:58→20:42)
[2016-08-15] MEDS: AMMONIUM LACTATE 12% LOTION 225 GM BTL EXT SCH ×2 (07:58→20:44)
[2016-08-15 08:16] LABS: ANISOCYTOSIS PRESENT; COMPLETE YES
[2016-08-15 08:48] LABS: CREATININE 6.1 mg/dl (0.60-1.20); POTASSIUM 4.2 mmol/L (3.5-5.1)
--- NOTE | 2016-08-15 10:22 | Nephrology Progress Note ---
Nephrology Progress Note Date of Service Aug 15, 2016. Chief Complaint Follow up evaluation of this patient w/ ESRD admitted with daytime somnolence and weakness Subjective Mrs. Gaytan was seen earlier this week in my office and at the HD unit. No medical concerns were voiced at those visits. The patient and her both indicated that her volume status had been improving since the initiation of dialysis. Yesterday Mrs. Gaytan had several outpatient medical visits. Late in the evening she developed profound fatigue and was brought to the hospital by her for further evaluation. The patient is undergoing surgical evaluation for AVF creation. She was scheduled to have her fistula place on Thursday. She would like to coordinate the surgery w/ her current hospital stay if possible. Mrs. Gaytan has obesity hypoventilation syndrome. Her ABG upon presentation revealed a CO2 of 68. The patient frequently falls asleep during routine conversation. The patient has AODM. Recently she suffered a hypoglycemic event at home. Review of Systems Constitutional: No fever Cardiovascular: No chest pain Respiratory: + dyspnea on exertion Abdomen: No pain, No nausea, No vomiting Extremities: + leg edema A complete review of systems was performed. Pertinent positives are noted above. All other systems are negative. Vital Signs Last 8 Hrs Date Time Temp Pulse Resp B/P (MAP) Pulse Ox O2 Delivery O2 Flow Rate FiO2 08/15/16 08:00 Nasal Cannula 4.0 BiPAP 08/15/16 07:37 36.9 82 20 115/67 (83) 94 Nasal Cannula 3.0 Last Recorded Weight Weight (Kilograms): 139.700 Physical Exam General Appearance: no apparent distress, + obese, + pertinent finding ( readily drifts off to sleep during conversation and physical examination) Head: + pertinent finding (cushingoid appearing) Eyes: PERRL Neck: + pertinent finding (short, thick. Unable to assess JVD) Respiratory/Chest: lungs clear Cardiovascular: + pertinent finding (distant, regular) Abdomen/GI: normal bowel sounds (obese), non tender Extremities/Musculoskelatal: + swelling (2+ pretibial pitting edema) Neurologic/Psych: + pertinent finding (awakens to voice. Will answer simple yes/no questions. Quickly drifts off to sleep) Family History Cancer Diabetes mellitus Gallbladder disease Heart disease Lung disease Social History Smoking Status: Former smoker Drug Use: none Marital Status: Housing Status: lives with family Occupation: unemployed Laboratory Results Past 24 Hours 08/15/16 07:40 Red Blood Count 3.70, Mean Corpuscular Volume 99.7, Mean Corpuscular Hemoglobin 30.0, Mean Corpuscular Hemoglobin Concent 30.1, Mean Platelet Volume 9.9, Neutrophils (%) (Auto) 74.5, Lymphocytes (%) (Auto) 10.4, Monocytes (%) (Auto) 12.3, Eosinophils (%) (Auto) 2.0, Basophils (%) (Auto) 0.1, Neutrophils # (Auto ) 7.06, Lymphocytes # (Auto) 0.99, Monocytes # (Auto) 1.17, Eosinophils # (Auto ) 0.19, Basophils # (Auto) 0.01 08/15/16 07:40 Test 08/14/16 11:04 08/14/16 16:09 08/14/16 20:37 08/15/16 07:24 Bedside Glucose 205 mg/dl (70-90) 166 mg/dl (70-90) 229 mg/dl (70-90) 130 mg/dl (70-90) Test 08/15/16 07:40 White Blood Count 9.49 K/uL (4.8-10.8) Red Blood Count 3.70 M/uL (4.2-5.4) Hemoglobin 11.1 g/dL (12.0-16.0) Hematocrit 36.9 % (37-47) Mean Corpuscular Volume 99.7 fL (80-100) Mean Corpuscular Hemoglobin 30.0 pg (25-34) Mean Corpuscular Hemoglobin Concent 30.1 g/dl (32-36) Platelet Count 208 K/uL (130-400) Mean Platelet Volume 9.9 fL (7.4-10.4) Neutrophils (%) (Auto) 74.5 % Lymphocytes (%) (Auto) 10.4 % Monocytes (%) (Auto) 12.3 % Eosinophils (%) (Auto) 2.0 % Basophils (%) (Auto) 0.1 % Neutrophils # (Auto) 7.06 K/uL (1.4-6.5) Lymphocytes # (Auto) 0.99 K/uL (1.2-3.4) Monocytes # (Auto) 1.17 K/uL (0.11-0.59) Eosinophils # (Auto) 0.19 K/uL (0-0.5) Basophils # (Auto) 0.01 K/uL (0-0.2) RDW Standard Deviation 75.4 fL (36.4-46.3) RDW Coefficient of Variation 21.0 % (11.5-14.5) Immature Granulocyte % (Auto) 0.7 % Immature Granulocyte # (Auto) 0.07 K/uL (0.00-0.02) Nucleated RBC Absolute Count (auto) 0.16 K/uL (0-0) Nucleated Red Blood Cells % 1.7 % Anisocytosis PRESENT Anion Gap 9.0 mmol/L (3-11) Est Creatinine Clear Calc Drug Dose 13.6 ml/min Estimated GFR () 7.9 Estimated GFR (Non- 6.8 BUN/Creatinine Ratio 8.0 (10-20) Calcium Level 8.0 mg/dl (8.5-10.1) Allergies Coded Allergies: Daptomycin (Verified Allergy, Mild, HIVES, 07/24/16) itching Iodine (Verified Allergy, Unknown, 07/24/16) Shellfish (Verified Allergy, Unknown, 07/24/16) Sulfamethoxazole w/Trimethoprim (Verified Allergy, Unknown, RASH, 07/24/16) Codeine (Verified Adverse Reaction, Unknown, NAUSEA, 08/14/16) has tolerated morphine Medications Current Inpatient Medications Medications (Trade) Dose Ordered Sig/Duyen Route Start Time Stop Time Status Last Admin Dose Admin Acetaminophen (Tylenol Tab) 650 mg Q4H PRN PO 08/13/16 23:45 09/12/16 23:44 08/14/16 20:50 650 MG Ondansetron HCl (Zofran Inj) 4 mg Q6H PRN IV 08/13/16 23:45 09/12/16 23:44 Polyethylene (Miralax Powder Packet) 17 gm DAILY PRN PO 08/13/16 23:45 09/12/16 23:44 Miscellaneous (Iv Fluids Completed) 1 ea PRN PRN N/A 08/14/16 01:00 08/14/17 00:59 Miscellaneous Information (Consult Glycemic Management Pharmacy) 1 ea UD PRN N/A 08/14/16 08:19 09/13/16 08:18 Allopurinol (Zyloprim Tab) 100 mg DAILY PO 08/14/16 10:00 09/13/16 09:59 08/15/16 07:51 100 MG Atorvastatin Calcium (Lipitor Tab) 40 mg DAILY PO 08/14/16 10:00 09/13/16 09:59 08/15/16 07:51 40 MG Cholecalciferol (Vitamin D Tab) 1,000 inter.unit DAILY PO 08/14/16 10:00 09/13/16 09:59 08/15/16 07:49 1,000 INTER.UNIT Salmeterol Xinafoate/ Fluticasone (Advair Diskus 500/50 Inh) 1 puff BID INH 08/14/16 10:00 09/13/16 09:59 08/15/16 07:49 1 PUFF Albuterol/ Ipratropium (Duoneb) 3 ml Q6H PRN INH 08/14/16 08:00 09/13/16 07:59 Ammonium Lactate (Lac-Hydrin) 1 appl BID EXT 08/14/16 10:00 09/13/16 09:59 08/15/16 07:58 1 APPL Metoprolol Succinate (Toprol Xl Tab) 150 mg DAILY PO 08/14/16 10:00 09/13/16 09:59 08/15/16 07:51 150 MG Miconazole Nitrate (Desenex Powder) 1 appln UD PRN EXT 08/14/16 08:00 09/13/16 07:59 Pantoprazole Sodium (Protonix Tab) 40 mg DAILY PO 08/14/16 10:00 09/13/16 09:59 08/15/16 07:50 40 MG Prednisone (PredniSONE TAB) 15 mg DAILY PO 08/14/16 10:00 09/13/16 09:59 08/15/16 07:51 15 MG Pregabalin (Lyrica Cap) 150 mg BID PO 08/14/16 09:00 09/13/16 08:59 08/15/16 07:53 150 MG Pyridoxine HCl (Vitamin B-6 Tab) 200 mg DAILY PO 08/14/16 10:00 09/13/16 09:59 08/15/16 07:50 200 MG Tiotropium [place] (Spiriva Handihaler Inhaler) 1 puff DAILY INH 08/14/16 10:00 09/13/16 09:59 08/15/16 07:49 1 PUFF Doxycycline Hyclate (Vibramycin Cap) 100 mg DAILY PO 08/14/16 10:00 08/16/16 09:59 08/15/16 07:50 100 MG Verapamil HCl (Calan-Sr Tab) 240 mg HS PO 08/14/16 21:00 09/13/16 20:59 08/14/16 20:49 240 MG Insulin Glargine (Lantus Vial) 70 unit BID SC 08/14/16 09:00 09/13/16 08:59 08/15/16 07:58 70 UNIT Insulin Aspart (novoLOG ASPART) SLIDING SCALE ACHS SC 08/14/16 08:00 09/13/16 07:59 08/15/16 07:56 23 UNITS Calcium Acetate (Phoslo Cap) 667 mg TIDM PO 08/14/16 11:30 09/13/16 11:29 08/15/16 07:50 667 MG Acetaminophen/ Hydrocodone Bitart ([place] 5/325 Tab) 1 tab Q6H PRN PO 08/14/16 22:30 08/28/16 22:29 Impression (1) ESRD on hemodialysis (2) Hypercapnic respiratory failure (3) CO2 narcosis (4) Obesity hypoventilation syndrome (5) Hyperkalemia (6) Morbid obesity with BMI of 50.0-59.9, adult (7) Arthritis (8) Hyperphosphatemia Hemalatha is a 60-year-old female with morbid obesity, obesity hypoventilation syndrome, recurrent hypercapnia, advanced chronic kidney disease requiring PARIMUTUEL TICKET CHECKER, right heart failure and failure of diuretic therapy. She has had multiple recent hospitalizations for volume overload and electrolyte abnormalities associated with diuretics. Hemalatha developed GUNNAR on CKD 3 progressing to ESRD requiring perm cath placement and initiation of hemodialysis during hospitalization in June 2016. Permcath was placed 07/25. She completed her first dialysis treatment on 07/25. She is on hemodialysis at [facility] TTS schedule. She currently dialyzes via a TDC. Vein mapping for future AVF placement was recently completed by Dr. Thapa. Recommendations ESRD: -- Will schedule next HD for am -- Catheter care per protocol -- Renal diet CO2 NARCOSIS / OBESITY HYPOVENTILATION SYNDROME: -- Will request Pulmonology consultation to assist with management HYPERPHOSPHATEMIA: -- Phoslo QAC with monitoring of serum calcium (noted history of hypercalcemia) ARTHRITIS/CHRONIC PAIN: -- Will reduce Lyrica to 150 mg daily -- Discourage aggressive use of opiates given concerns about acute and chronic CO2 retention and lethargy ANEMIA: -- Epogen held for hemoglobin >11 OTHER: -- Physical therapy consultation for strengthening
--- NOTE | 2016-08-15 13:17 | Surgery Consultation ---
Consultation Date of Service Aug 15, 2016. Chief Complaint ESRD on HD, needs AVF creation History of Present Illness The patient is a 60 year old female with multiple medical problems, including ESRD on HD, seen a few weeks ago for permcath insertion for urgent HD, seen today to discuss creation of AVF. Pt's states she had vein mapping 4 days ago in my office and was scheduled to see Dr Thapa or myself next thursday in office to discuss. Pt states she became weak and lightheaded and nearly fell when getting out of the car a few days ago. This occurred the day after HD and the outside temperature was over 90 degrees that day. Pt/family requesting to have AVF created this admission if possible. Vitals Vital Signs Past 12 Hours Date Time Temp Pulse Resp B/P (MAP) Pulse Ox O2 Delivery O2 Flow Rate FiO2 08/15/16 08:00 Nasal Cannula 4.0 BiPAP 08/15/16 07:37 36.9 82 20 115/67 (83) 94 Nasal Cannula 3.0 Allergies Coded Allergies: Daptomycin (Verified Allergy, Mild, HIVES, 07/24/16) itching Iodine (Verified Allergy, Unknown, 07/24/16) Shellfish (Verified Allergy, Unknown, 07/24/16) Sulfamethoxazole w/Trimethoprim (Verified Allergy, Unknown, RASH, 07/24/16) Codeine (Verified Adverse Reaction, Unknown, NAUSEA, 08/14/16) has tolerated morphine Home Medications Scheduled Allopurinol (Zyloprim), 100 MG PO DAILY Ascorbic Acid (Vitamin C 500 mg), 1,000 MG PO DAILY Atorvastatin (Lipitor), 40 MG PO DAILY Cholecalciferol (Vitamin D3), 1,000 INTER.UNIT PO DAILY Doxycycline Hyclate (Doxycycline Hyclate), 100 MG PO DAILY Fluticasone Prop/Salmeterol (Advair Diskus 500/50 60 Dose), 1 PUFF INH BID Home O2 Therapy (Oxygen), 3 LITERS NA CONTINOUS Insulin Aspart (Novolog Flexpen), 50 UNITS SQ W/BREAKFAST Insulin Aspart (Novolog Flexpen), 50 UNITS SQ W/LUNCH Insulin Aspart (Novolog Flexpen), 90 UNITS SQ W/SUPPER Insulin Glargine (Toujeo Solostar), 70 UNITS SC TID Lactic Acid (Ammonium Lactate) (Amlactin), 1 APPLN TOP BID Lorcaserin Hcl (Belviq), 10 MG PO BID Metoprolol Succ (Toprol Xl) (Toprol-Xl ), 150 MG PO DAILY Multiple Vitamins W/ Minerals (One Daily For Women), 1 TAB PO DAILY Pantoprazole (Protonix), 40 MG PO DAILY Prednisone Tab (Prednisone), 15 MG PO DAILY Pregabalin (Lyrica), 150 MG PO BID Pyridoxine (Vitamin B6), 200 MG PO DAILY Tiotropium [place] (Spiriva Handihaler), 1 CAP INH DAILY Verapamil Hcl (Verapamil Hcl Er), 240 MG PO HS Vitamin E (Vitamin E), 800 INTER.UNIT PO DAILY Scheduled PRN Insulin Aspart (Novolog Flexpen), 40 UNITS SQ HS PRN for Late Night Snack Ipratropium-Albuterol (Duoneb), 1 TREATMENT INH Q6H PRN for SOB/Wheezing Miconazole Nitrate (Desenex Shake Powder), 1 APPLN TOP UD PRN for Affected Skin Folds Problem List Medical Problems: (1) Abdominal wall cellulitis (2) Abdominal wall cellulitis (3) Abrasion of toe of right foot (4) Acute kidney injury (5) Acute on chronic diastolic (congestive) heart failure (6) Acute respiratory failure with hypoxia and hypercapnia (7) Anemia (8) Arthritis (9) Asymptomatic bacteriuria (10) Cellulitis of abdominal wall (11) Cellulitis of leg (12) Cervical Disc Degen (13) CHF (congestive heart failure) (14) Chronic kidney disease (CKD) stage G3b/A1, moderately decreased glomerular filtration rate (GFR) between 30-44 mL/min/1.73 square meter and albuminuria creatinine ratio less than 30 mg/g (15) CO2 narcosis (16) COPD (chronic obstructive pulmonary disease) (17) Cor pulmonale, chronic (18) Cystitis (19) Diab Mariama Wo Compl, Type Ii Or Unspec Type, Uncontrolled (20) Diabetes (21) Edema (22) ESRD on hemodialysis (23) Frequent falls (24) Hypercalcemia (25) Hypercalcemia (26) Hypercapnic respiratory failure (27) Hyperkalemia (28) Hyperphosphatemia (29) Hypokalemia (30) Hyponatremia (31) Metabolic alkalosis (32) Metabolic alkalosis with respiratory acidosis (33) Metabolic encephalopathy (34) Morbid obesity with BMI of 50.0-59.9, adult (35) Obesity hypoventilation syndrome (36) Obesity hypoventilation syndrome (37) Ovarian Cyst Nec/Nos (38) Pulmonary Collapse (39) Pulmonary nodules (40) Renal failure (ARF), acute on chronic (41) Sciatica (42) Venous stasis dermatitis of both lower extremities (43) Weakness Surgical / Medical History Hx Cardiac Surgery: No Hx Abdominal Surgery: Yes (hysterectomy) Hx Cancer Surgery: No Hx Thoracic Surgery: No Hx Orthopedic: No Hx Urinary Tract Surgery: No Past Medical/Surgical History: CHF, Diabetes, Heart Disease, High Cholesterol, Hypertension, Kidney Disease Family History Cancer Diabetes mellitus Gallbladder disease Heart disease Lung disease Social History Smoking Status: Never Smoker Hx Tobacco Use In Past Year?: No Hx Alcohol Use - Type & Amnt: No Hx Substance Use -Type & Amnt: No Review of Systems Constitutional: + malaise, No chills, No fever Skin: No change in color Eyes: No visual changes ENMT: No sore throat Respiratory: + AARON, + short of breath, No cough, No hemoptysis Cardiovascular: No chest pain, No palpitations, No syncope Gastrointestinal: No abdominal pain, No nausea, No vomiting Genitourinary - Female: No dysuria, No hematuria Neurologic: No dizziness, No lethargy, No numbness, No tingling Physical Exam Constitutional: General Apperance: well-nourished, well-developed, obese Level of Distress: chronically ill Psychiatric: Mental Status: active & alert, normal mood, normal affect Orientation: to time, to place, to person Memory: recent memory normal, remote memory normal Head: normocephalic, atraumatic Eyes: EOM: EOMI ENMT: normal ENT inspection, hearing grossly normal Neck: supple, trachea midline Lungs: Respiratory effort: no dyspnea Auscultation: no rhonchi, wet rales/crackles Cardiovascular: Apical Impulse: not displaced Heart Auscultation: RRR, no rubs, no gallops Peripheral Pulses: Pulses: full and equal, in all extremities except if noted Bruits: none appreciated Carotid Pulse: normal on the left, normal on the right Brachial Pulses: normal on the left, normal on the right Radial Pulse: normal on the left, normal on the right Femoral Pulse: normal on the left, normal on the right Posterior Tibialis Pulse: decreased on the left, decreased on the right Dorsalis Pedis Pulse: decreased on the left, decreased on the right Abdomen: Bowel Sounds: normal Inspection & Palpation: soft, non-distended, no tenderness, guarding & rebound Musculoskeletal: normal strength (5/5 throughout), normal tone Extremities: Upper Right: no cyanosis, no edema, no varicosities Upper Left: no cyanosis, no edema, no varicosities Lower Right: no cyanosis, no varicosities, edema Lower Left: no cyanosis, no varicosities, edema Neurologic: Cranial Nerves: grossly intact Sensation: grossly intact Assessment and Plan ASSESSMENT and PLAN: ESRD on HD Pt's vein mapping reviewed by Dr Thapa, recommends LUE brachiocephalic avf creation. Will discuss with pt and and attempt to get scheduled for next week.
[2016-08-15 14:42] VITALS: BP 127/65; PULSE 76; TEMP 37; O2SAT 93
--- NOTE | 2016-08-15 15:37 | Progress Note ---
Subjective Date of Service: Aug 15, 2016. Subjective Pt evaluation today including: conversation w/ patient, conversation w/ family , physical exam, chart review, lab review, review of studies, review of inpatient medication list Pt resting comfortably in chair Denies any worsening shortness of breath COugh noted TOlerating dialysis Problem List Medical Problems: (1) Altered mental status Status: Acute (2) Anasarca Status: Acute (3) Anasarca Status: Acute (4) Bilateral cellulitis of lower leg Status: Acute (5) Bilateral lower leg cellulitis Status: Acute (6) Change in mental status Status: Acute (7) Chronic renal failure Status: Acute (8) CO2 retention Status: Acute (9) Dehydration Status: Acute (10) Dyspnea on exertion Status: Acute (11) Fall Status: Acute (12) Fever Status: Acute (13) Fever Status: Acute (14) Generalized weakness Status: Acute (15) Hypercarbia Status: Acute (16) Hyperkalemia Status: Acute (17) Hypokalemia Status: Acute (18) Hypoxemia Status: Acute (19) Hypoxia Status: Acute (20) Lumbar strain Status: Acute (21) Respiratory failure Status: Acute (22) Respiratory failure with hypercapnia Status: Acute (23) Weakness Status: Acute (24) Weight gain Status: Acute (25) Wrist pain Status: Acute Review of Systems Constitutional: + weakness, + fatigue, No fever, No chills, No sweats, No weight loss ENT: No hearing loss, No unusual epistaxis, No nasal symptoms, No sore throat Respiratory: + cough, + shortness of breath, + dyspnea at rest, No sputum, No wheezing Cardiac: No chest pain, No orthopnea, No PND, No edema Abdomen: No pain, No nausea, No vomiting, No diarrhea, No constipation Musculoskeletal: No joint pain, No muscle pain, No swelling, No calf pain Female : No dysuria, No urinary frequency, No hematuria, No incontinence Neurologic: No memory loss, No paralysis, No weakness, No numbness/tingling Psychiatric: No depression symptoms, No anhedonism, No anxiety, No insomnia Endo: No fatigue, No excessive thirst, No excessive urination Skin: No rash, No itch Objective Vital Signs Date Time Temp Pulse Resp B/P (MAP) Pulse Ox O2 Delivery O2 Flow Rate FiO2 08/15/16 14:42 37.0 76 20 127/65 (85) 93 Nasal Cannula 2.0 08/15/16 08:00 Nasal Cannula 4.0 BiPAP 08/15/16 07:37 36.9 82 20 115/67 (83) 94 Nasal Cannula 3.0 08/15/16 00:00 93 Nasal Cannula 4.0 BiPAP 08/14/16 23:54 36.7 81 18 99/65 (76) 93 BiPAP 08/14/16 16:40 36.6 86 22 127/71 (89) 94 Nasal Cannula 3.0 08/14/16 16:22 36.9 81 19 95 4.0 08/14/16 15:47 36.9 81 110/54 (72) 08/14/16 15:30 Nasal Cannula 4.0 Physical Exam General Appearance: WD/WN, no apparent distress, + obese ENT: normal ENT inspection, hearing grossly normal, TMs normal, pharynx normal Neck: supple, no adenopathy, thyroid normal, no JVD Respiratory/Chest: chest non-tender, no accessory muscle use, + decreased breath sounds, + wheezing Cardiovascular: no edema, no gallop, no JVD, no murmur Abdomen: normal bowel sounds, non tender, soft, no organomegaly 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: no motor/sensory deficits, alert, normal mood/affect, oriented x 3 Skin: normal color, warm/dry, no rash Lymphatic: no adenopathy Laboratory Results Last 24 Hours Test 08/14/16 16:09 08/14/16 20:37 08/15/16 07:24 08/15/16 07:40 Bedside Glucose 166 mg/dl 229 mg/dl 130 mg/dl White Blood Count 9.49 K/uL Red Blood Count 3.70 M/uL Hemoglobin 11.1 g/dL Hematocrit 36.9 % Mean Corpuscular Volume 99.7 fL Mean Corpuscular Hemoglobin 30.0 pg Mean Corpuscular Hemoglobin Concent 30.1 g/dl Platelet Count 208 K/uL Mean Platelet Volume 9.9 fL Neutrophils (%) (Auto) 74.5 % Lymphocytes (%) (Auto) 10.4 % Monocytes (%) (Auto) 12.3 % Eosinophils (%) (Auto) 2.0 % Basophils (%) (Auto) 0.1 % Neutrophils # (Auto) 7.06 K/uL Lymphocytes # (Auto) 0.99 K/uL Monocytes # (Auto) 1.17 K/uL Eosinophils # (Auto) 0.19 K/uL Basophils # (Auto) 0.01 K/uL RDW Standard Deviation 75.4 fL RDW Coefficient of Variation 21.0 % Immature Granulocyte % (Auto) 0.7 % Immature Granulocyte # (Auto) 0.07 K/uL Nucleated RBC Absolute Count (auto) 0.16 K/uL Nucleated Red Blood Cells % 1.7 % Anisocytosis PRESENT Sodium Level 133 mmol/L Potassium Level 4.2 mmol/L Chloride Level 97 mmol/L Carbon Dioxide Level 27 mmol/L Anion Gap 9.0 mmol/L Blood Urea Nitrogen 49 mg/dl Creatinine 6.10 mg/dl Est Creatinine Clear Calc Drug Dose 13.6 ml/min Estimated GFR () 7.9 Estimated GFR (Non- 6.8 BUN/Creatinine Ratio 8.0 Random Glucose 132 mg/dl Calcium Level 8.0 mg/dl Test 08/15/16 11:16 Bedside Glucose 162 mg/dl Assessment and Plan 60-year-old female with extensive PMHx presents to the ER with complaints of weakness and frequent falls due to excessive jerkiness. Acute on chronic hypercapnic resp failure Pt reports improvement in sob Noted CO2 levels are chronically eleated in 60-70s per previous ABGs Pulm consulted Cont O2 and BiPAP Cont advair, spiriva and prednisone Frequent falls: likely secondary to deconditioning, weakness, jerkiness - Head CT: Negative for any acute changes - Physical therapy and occupational therapy consult - Dced weight loss med in setting of dialysis, jerkiness and recurrent falls - Improvement in jerkiness CKD stage 5 requiring hemodialysis Secondary to diabetic nephropathy and hypertensive sclerosis - Creatinine on admission 6.1 - Scheduled for hemodialysis in AM -Nephrology consult -Vascular surgery consulted for fistula placement, mapping already completed Hyperkalemia: resolved -K at 5.7 on admission -EKG normal Monitor K Hypercalcemia: Serum free light chain ratio is elevated. UIEP was positive for IgG Vernal monoclonal protein during outpatient workup - Followed by Dr. Delong, pending further evaluation Cor pulmonale : Last echo 07/25/15: Hyperdynamic LV systolic function. Mild concentric LV hypertrophy. LV diastolic dysfunction. Mild RV dilatation and systolic dysfunction. Mild tricuspid regurgitation. Mildly elevated RV systolic pressure. Normal central venous pressure * Ejection Fraction = >70 % Daily weights, I's and O's COPD: - Advair, Spiriva, DuoNeb - Home dose of prednisone 15mg daily - 3L O2 via nasal cannula during the day, BiPAP overnight Chronic venous insufficiency - leg elevation with compression stockings HTN - Continue Toprol-XL 150 mg and verapamil CR 240 mg DM - last HbA1c 6.3 on 05/20/16 - insulin sliding scale - Glycemic consult Gout - asymptomatic - Allopurinol 100mg daily currently held Is currently on prednisone which would help with acute flares Peripheral neuropathy/chronic pain - Pregabalin 150 mg 3 times a day , Dilaudid when necessary VTE prophylaxis - Heparin SQ Full code
--- NOTE | 2016-08-15 19:14 | PULMONARY CONSULTATION ---
DATE OF CONSULTATION: 08/15/2016 TIME: 06:00 p.m. REPORT OF CONSULTATION: The patient was seen in room 288, bed 2. She is a 60-year-old female, who was brought to the Emergency Room because of severe lethargy and recurring falls and weakness. The patient has had similar complaints when she was hospitalized in May of this year. She has had numerous falls at home. Her needs to be with her almost all of the time. All of sudden, she will get profound weakness and her leg seem to give away. She has a lot of tremors. The patient has marked lethargy and fatigue. She is often extremely lethargic and dozing off continually. The patient had an arterial blood gas done soon after admission showing a pH of 7.22 with a pCO2 of 68 and a pO2 of 88. This reflects a combined pattern of respiratory and metabolic acidosis. When she was hospitalized previously in May, she had a high calcium level that was thought to be contributing to the lethargy. That has resolved; however. Thus, it is not exactly clear what is happening. The patient does have a longstanding history of COPD. She had pulmonary function testing done in April of 2012 showing at least moderate obstruction. She also has a history of obesity hypoventilation syndrome. She has presumed sleep apnea. I am not certain if she ever had a sleep study. She has a noninvasive ventilator at home known [facility]. She says she wears this every night. She denied having any difficulty. One of her admission notes implied however, that she has not been using her machine for a few nights prior to admission. Thus, there was some conflict in the history. The patient states she is not very short of breath. Most of the time she is at rest, so she is comfortable. She gets winded with any significant exertion, but she cannot do hardly anything. She is actually more awake than she was at the time of my last consultation on her in May. She has no significant cough. She has no sputum production or hemoptysis. She has not had any chest pain. She denies chills, fevers or sweats. Her appetite is acceptable. She denies any bowel problems or urine problems. PAST SURGICAL HISTORY: Hysterectomy. PAST MEDICAL HISTORY: 1. Diastolic CHF. 2. Chronic kidney disease stage IV-on dialysis for 3 weeks 3. Diabetes mellitus. 4. Obesity. 5. Hypertension. 6. Chronic venous insufficiency. 7. Cellulitis. 8. COPD. SOCIAL HISTORY: Tobacco, none for 7 years. Previously 2 packs per day for 35 years. ETOH-none. FAMILY HISTORY: Reportedly positive for heart disease, lung problems, diabetes and cancer. ALLERGIES: LISTED ALLERGIES TO DAPTOMYCIN, CODEINE, IODINE, SHELLFISH AND SULFA. MEDICATIONS AT HOME: 1. Allopurinol 100 mg daily. 2. Vitamin C 1000 mg daily. 3. Atorvastatin 40 mg daily. 4. Vitamin D3 1000 units daily. 5. Doxycycline 100 mg daily. 6. Advair 500/50 one puff b.i.d. 7. O2, three liter nasal cannula. 8. NovoLog 50 units with breakfast, 50 units with lunch, and 90 units with supper. 9. Toujeo 70 units t.i.d. 10. Belviq 10 mg b.i.d. 11. Metoprolol 150 mg daily. 12. Pantoprazole 40 mg daily. 13. Prednisone 15 mg daily. 14. Lyrica 150 mg b.i.d. 15. Pyridoxine 200 mg daily. 16. Spiriva 1 daily. 17. Verapamil 240 mg daily. 18. Vitamin E 800 units daily. 19. DuoNeb q. 6 hours p.r.n. shortness of breath. PHYSICAL EXAMINATION: GENERAL: The patient is a 60-year-old female, who is lethargic, but arousable. Her is also present. She would doze off intermittently during this exam, but she would awaken quite readily. VITAL SIGNS: Temperature is 37 degrees. BMI is 51.3 with a weight of 139.7 kilograms. HEENT: Pupils were reactive to light. The eyelid seem to be drooping easily. Nares were mildly congested. MOUTH: Exam showed an absence of teeth. Pharynx would be a Mallampati grade 3. NECK: She has a very large neck. No lymph nodes were palpable. CHEST: Shows diminished excursions. HEART: Heart rate was 76 per minute and regular. Blood pressure 127/65. LUNGS: [place] reveal diminished breath sounds. No active wheezes, rales or rhonchi were heard. ABDOMEN: Markedly obese. Bowel sounds were present. There was no tenderness to palpation or definite mass. EXTREMITIES: The lower extremities have compression stockings in place. She seems to have mild edema bilaterally. The toes seem to have some dark skin discoloration. IMAGING DATA: Chest x-ray on admission suggest a chronic pulmonary vascular congestion with mild stable cardiomegaly. Head CT showed no acute change. LABORATORY DATA: White count today is 9.49. Hemoglobin 11.1. Platelets 208,000. Coags were normal. Blood gas at 9:00 p.m. on August 13 showed a pH of 7.22 with a pCO2 of 68 and a pO2 of 88 done on 5 liter. Presumably this was nasal cannula. Electrolytes today show sodium 133, potassium 4.2, chloride 97, bicarbonate 27. The BUN is 49 with a creatinine of 6.1. Calcium today was 8.0. Liver functions were normal. Troponin was normal. Total protein is 9.8. This is significantly elevated. Albumin was 3.2. IMPRESSIONS: 1. Respiratory failure-acute on chronic. 2. Obesity hypoventilation syndrome. 3. Chronic obstructive pulmonary disease. 4. Obstructive sleep apnea. 5. Renal failure. 6. Elevated protein with history of monoclonal light chain gammopathy. COMMENTS AND RECOMMENDATIONS: Obviously, the patient's blood gases are markedly abnormal. They are not as abnormal as they had been in May; however. I believe her kidney failure has worsened and she has more acidosis, currently on the basis in part from her renal failure. The question of course is, is her hypercarbia enough to be accounting for her weakness and recurring falls. I suspect it is a contributing factor, but I am not certain it is the entire factor. The patient does wear Trilogy and she claims she wears it nightly. One would actually need to review her compliance data. Perhaps the compliance data could be obtained from [facility] upon request. The patient is not currently on any neb treatments on a regular basis. In light of her high pCO2, she might benefit from having treatments few times per day. I believe we should keep her oxygen saturation between 88 and 92%. She has been fairly close to that with the 3 or 4 liters, typically being 93 or 94%. I do not know if there is any value to evaluating once again the high protein level. The patient states that Dr. An had wanted to do another test, but they never got around to doing it. This may have been a skeletal survey of some type. One other consideration could be if the patient would have some undiagnosed neurologic problem that would be unexpected. Perhaps one could consider a neurology consultation regarding her twitching and to rule out things such as myasthenia, etc. I will defer this to the medicine team. Thank you for asking me to assist in her care. MEGHANA
[2016-08-15 20:30] VITALS: O2SAT 93
[2016-08-15] MEDS: VERAPAMIL HCL 240 MG TABCR PO SCH (20:43)
[2016-08-16] VITALS (24 sets, daily range): BP systolic 110–152; BP diastolic 42–80; PULSE 69–91; TEMP 36.5–37.2; O2SAT 92–95
[2016-08-16] MEDS: HYDROCODONE/ACETAMOPHEN 5/325MG TAB PO PRN ×2 (00:23→23:08)
[2016-08-16] MEDS ORDERED: HEPARIN SOD (PORCINE) 1000 UNIT/ML 10 ML VIAL IV SCH (06:00)
[2016-08-16 06:37] LABS: BASO % 0.3 %; BASO ABS # 0.02 K/uL (0-0.2); EOS % 2.5 %; HEMATOCRIT 33.8 % (37-47); LYMPH % 12.9 %; LYMPH ABS # 1.02 K/uL (1.2-3.4); MEAN CORPUSCULAR HEMOGLOBIN 30.4 pg (25-34); MEAN CORPUSCULAR HGB CONC 31.1 g/dl (32-36); MEAN PLATELET VOLUME 9.8 fL (7.4-10.4); MONO % 14.6 %; NEUT % 68.7 %; PLATELET COUNT 175 K/uL (130-400); RED BLOOD COUNT 3.45 M/uL (4.2-5.4)
[2016-08-16 07:01] LABS: ANISOCYTOSIS PRESENT; COMPLETE YES; POLYCHROMASIA 1+
[2016-08-16 07:29] LABS: BUN/CREATININE RATIO 9.2 (10-20); CALCIUM 7.7 mg/dl (8.5-10.1); CREATININE 7.9 mg/dl (0.60-1.20); POTASSIUM 4.4 mmol/L (3.5-5.1)
[2016-08-16] MEDS ORDERED: PREGABALIN 150 MG CAP ONE (07:44)
[2016-08-16] MEDS: DOXYCYCLINE HYCLATE 100 MG CAP PO SCH (07:52)
[2016-08-16] MEDS: ALLOPURINOL 100 MG TAB PO SCH (07:52)
[2016-08-16] MEDS: CHOLECALCIFEROL 1000 INTER.UNIT TAB PO SCH (07:52)
[2016-08-16] MEDS: CALCIUM ACETATE 667MG GELCAP PO SCH ×3 (07:52→17:08)
[2016-08-16] MEDS: PYRIDOXINE HCL 50 MG TAB PO SCH (07:53)
[2016-08-16] MEDS: TIOTROPIUM BROMIDE 5 PUFF/90 MCG INH INH SCH (07:53)
[2016-08-16] MEDS: ATORVASTATIN 40 MG TAB PO SCH (07:53)
[2016-08-16] MEDS: PANTOprazole SOD 40 MG TAB PO SCH (07:53)
[2016-08-16] MEDS: FLUTICASONE/SALMETEROL (ADVAIR) 500/50 INH 14 PUFF INH SCH ×2 (07:54→21:01)
[2016-08-16] MEDS: AMMONIUM LACTATE 12% LOTION 225 GM BTL EXT SCH ×2 (07:54→21:01)
[2016-08-16] MEDS: INSULIN GLARGINE SC SCH ×2 (08:00→21:44)
[2016-08-16] MEDS: INSULIN ASPART 100 UNITS/ML 3 ML PEN SC SCH ×4 (08:00→21:01)
[2016-08-16] MEDS ORDERED: PREGABALIN 150 MG CAP PO SCH (09:00)
--- NOTE | 2016-08-16 10:15 | Nephrology Progress Note ---
Nephrology Progress Note Date of Service Aug 16, 2016. Chief Complaint Follow up evaluation of this patient w/ ESRD admitted with daytime somnolence and weakness Subjective Mrs. Gaytan was seen & examined in preparation for HD today. She used her BiPAP last night and reports a good nights sleep. She remains weak. Review of Systems Constitutional: No fever Cardiovascular: No chest pain Respiratory: No dyspnea at rest Abdomen: No pain, No nausea Extremities: + leg edema A complete review of systems was performed. Pertinent positives are noted above. All other systems are negative. Vital Signs Last 8 Hrs Date Time Temp Pulse Resp B/P (MAP) Pulse Ox O2 Delivery O2 Flow Rate FiO2 08/16/16 10:00 70 116/57 08/16/16 09:50 72 128/65 08/16/16 09:45 74 110/68 08/16/16 09:35 36.5 73 128/64 (85) 08/16/16 08:00 Nasal Cannula 3.0 BiPAP 08/16/16 07:01 36.9 91 20 135/70 (91) 93 Nasal Cannula 4.0 Last Recorded Weight Weight (Kilograms): 139.700 Physical Exam General Appearance: + obese Head: + pertinent finding (lara facies) Eyes: PERRL Neck: no adenopathy (short, thick. Unable to assess for JVD. R IJ THC w/ clean dry dressing) Respiratory/Chest: lungs clear Cardiovascular: regular rate, rhythm Abdomen/GI: non tender, soft Extremities/Musculoskelatal: + swelling (2+ pretibial pitting edema) Neurologic/Psych: alert Family History Cancer Diabetes mellitus Gallbladder disease Heart disease Lung disease Social History Smoking Status: Former smoker Drug Use: none Marital Status: Housing Status: lives with family Occupation: unemployed Laboratory Results Past 24 Hours 08/16/16 05:57 Red Blood Count 3.45, Mean Corpuscular Volume 98.0, Mean Corpuscular Hemoglobin 30.4, Mean Corpuscular Hemoglobin Concent 31.1, Mean Platelet Volume 9.8, Neutrophils (%) (Auto) 68.7, Lymphocytes (%) (Auto) 12.9, Monocytes (%) (Auto) 14.6, Eosinophils (%) (Auto) 2.5, Basophils (%) (Auto) 0.3, Neutrophils # (Auto ) 5.43, Lymphocytes # (Auto) 1.02, Monocytes # (Auto) 1.15, Eosinophils # (Auto ) 0.20, Basophils # (Auto) 0.02 08/16/16 05:57 Test 08/15/16 11:16 08/15/16 16:25 08/15/16 20:05 08/16/16 05:57 Bedside Glucose 162 mg/dl (70-90) 255 mg/dl (70-90) 237 mg/dl (70-90) White Blood Count 7.90 K/uL (4.8-10.8) Red Blood Count 3.45 M/uL (4.2-5.4) Hemoglobin 10.5 g/dL (12.0-16.0) Hematocrit 33.8 % (37-47) Mean Corpuscular Volume 98.0 fL (80-100) Mean Corpuscular Hemoglobin 30.4 pg (25-34) Mean Corpuscular Hemoglobin Concent 31.1 g/dl (32-36) Platelet Count 175 K/uL (130-400) Mean Platelet Volume 9.8 fL (7.4-10.4) Neutrophils (%) (Auto) 68.7 % Lymphocytes (%) (Auto) 12.9 % Monocytes (%) (Auto) 14.6 % Eosinophils (%) (Auto) 2.5 % Basophils (%) (Auto) 0.3 % Neutrophils # (Auto) 5.43 K/uL (1.4-6.5) Lymphocytes # (Auto) 1.02 K/uL (1.2-3.4) Monocytes # (Auto) 1.15 K/uL (0.11-0.59) Eosinophils # (Auto) 0.20 K/uL (0-0.5) Basophils # (Auto) 0.02 K/uL (0-0.2) RDW Standard Deviation 74.2 fL (36.4-46.3) RDW Coefficient of Variation 20.9 % (11.5-14.5) Immature Granulocyte % (Auto) 1.0 % Immature Granulocyte # (Auto) 0.08 K/uL (0.00-0.02) Nucleated RBC Absolute Count (auto) 0.14 K/uL (0-0) Nucleated Red Blood Cells % 1.8 % Polychromasia 1+ Anisocytosis PRESENT Anion Gap 12.0 mmol/L (3-11) Est Creatinine Clear Calc Drug Dose 10.5 ml/min Estimated GFR () 5.7 Estimated GFR (Non- 5.0 BUN/Creatinine Ratio 9.2 (10-20) Calcium Level 7.7 mg/dl (8.5-10.1) Test 08/16/16 07:18 Bedside Glucose 214 mg/dl (70-90) Allergies Coded Allergies: Daptomycin (Verified Allergy, Mild, HIVES, 07/24/16) itching Iodine (Verified Allergy, Unknown, 07/24/16) Shellfish (Verified Allergy, Unknown, 07/24/16) Sulfamethoxazole w/Trimethoprim (Verified Allergy, Unknown, RASH, 07/24/16) Codeine (Verified Adverse Reaction, Unknown, NAUSEA, 08/14/16) has tolerated morphine Medications Current Inpatient Medications Medications (Trade) Dose Ordered Sig/Duyen Route Start Time Stop Time Status Last Admin Dose Admin Acetaminophen (Tylenol Tab) 650 mg Q4H PRN PO 08/13/16 23:45 09/12/16 23:44 08/14/16 20:50 650 MG Ondansetron HCl (Zofran Inj) 4 mg Q6H PRN IV 08/13/16 23:45 09/12/16 23:44 Polyethylene (Miralax Powder Packet) 17 gm DAILY PRN PO 08/13/16 23:45 09/12/16 23:44 Miscellaneous (Iv Fluids Completed) 1 ea PRN PRN N/A 08/14/16 01:00 08/14/17 00:59 Miscellaneous Information (Consult Glycemic Management Pharmacy) 1 ea UD PRN N/A 08/14/16 08:19 09/13/16 08:18 Allopurinol (Zyloprim Tab) 100 mg DAILY PO 08/14/16 10:00 09/13/16 09:59 08/16/16 07:52 100 MG Atorvastatin Calcium (Lipitor Tab) 40 mg DAILY PO 08/14/16 10:00 09/13/16 09:59 08/16/16 07:53 40 MG Cholecalciferol (Vitamin D Tab) 1,000 inter.unit DAILY PO 08/14/16 10:00 09/13/16 09:59 08/16/16 07:52 1,000 INTER.UNIT Salmeterol Xinafoate/ Fluticasone (Advair Diskus 500/50 Inh) 1 puff BID INH 08/14/16 10:00 09/13/16 09:59 08/16/16 07:54 1 PUFF Albuterol/ Ipratropium (Duoneb) 3 ml Q6H PRN INH 08/14/16 08:00 09/13/16 07:59 Ammonium Lactate (Lac-Hydrin) 1 appl BID EXT 08/14/16 10:00 09/13/16 09:59 08/16/16 07:54 1 APPL Metoprolol Succinate (Toprol Xl Tab) 150 mg DAILY PO 08/14/16 10:00 09/13/16 09:59 08/15/16 07:51 150 MG Miconazole Nitrate (Desenex Powder) 1 appln UD PRN EXT 08/14/16 08:00 09/13/16 07:59 Pantoprazole Sodium (Protonix Tab) 40 mg DAILY PO 08/14/16 10:00 09/13/16 09:59 08/16/16 07:53 40 MG Prednisone (PredniSONE TAB) 15 mg DAILY PO 08/14/16 10:00 09/13/16 09:59 08/16/16 07:52 15 MG Pyridoxine HCl (Vitamin B-6 Tab) 200 mg DAILY PO 08/14/16 10:00 09/13/16 09:59 08/16/16 07:53 200 MG Tiotropium [place] (Spiriva Handihaler Inhaler) 1 puff DAILY INH 08/14/16 10:00 09/13/16 09:59 08/16/16 07:53 1 PUFF Verapamil HCl (Calan-Sr Tab) 240 mg HS PO 08/14/16 21:00 09/13/16 20:59 08/15/16 20:43 240 MG Insulin Glargine (Lantus Vial) 70 unit BID SC 08/14/16 09:00 09/13/16 08:59 08/16/16 08:00 70 UNIT Insulin Aspart (novoLOG ASPART) SLIDING SCALE ACHS SC 08/14/16 08:00 09/13/16 07:59 08/16/16 08:00 38 UNITS Calcium Acetate (Phoslo Cap) 667 mg TIDM PO 08/14/16 11:30 09/13/16 11:29 08/16/16 07:52 667 MG Acetaminophen/ Hydrocodone Bitart ([place] 5/325 Tab) 1 tab Q6H PRN PO 08/14/16 22:30 08/28/16 22:29 08/16/16 00:23 1 TAB Pregabalin (Lyrica Cap) 150 mg DAILY PO 08/16/16 09:00 09/15/16 08:59 08/16/16 07:53 150 MG Heparin Sodium (Porcine) (Heparin Iv Bolus) 1,000 unit Q1H IV 08/16/16 06:00 08/16/16 12:00 Impression (1) ESRD on hemodialysis (2) Hypercapnic respiratory failure (3) CO2 narcosis (4) Obesity hypoventilation syndrome (5) Hyperkalemia (6) Morbid obesity with BMI of 50.0-59.9, adult (7) Arthritis (8) Hyperphosphatemia Hemalatha is a 60-year-old female with morbid obesity, obesity hypoventilation syndrome, recurrent hypercapnia, advanced chronic kidney disease requiring CONDUCTOR SYMPHONIC ORCHESTRA, right heart failure and failure of diuretic therapy. She has had multiple recent hospitalizations for volume overload and electrolyte abnormalities associated with diuretics. Hemalatha developed GUNNAR on CKD 3 progressing to ESRD requiring perm cath placement and initiation of hemodialysis during hospitalization in June 2016. Permcath was placed 07/25. She completed her first dialysis treatment on 07/25. She is on hemodialysis at [facility] TTS schedule. She currently dialyzes via a TDC. Vein mapping for future AVF placement was recently completed by Dr. Thapa. Recommendations ESRD: -- HD today. Will attempt 3 L UF. -- Renal diet -- Vascular surgery recommendations reviewed. Patient to have AVF early next week as inpatient CO2 NARCOSIS / OBESITY HYPOVENTILATION SYNDROME: -- Pulmonology recommendations reviewed. Patient may require adjustment to BiPAP prescription HYPERPHOSPHATEMIA: -- Phoslo QAC with monitoring of serum calcium (noted history of hypercalcemia) ARTHRITIS/CHRONIC PAIN: -- Lyrica dose has been reduced to 150 mg daily. Monitor. -- Discourage aggressive use of opiates given concerns about acute and chronic CO2 retention and lethargy ANEMIA: -- Epogen held for hemoglobin >11 OTHER: -- Physical therapy consultation for strengthening. -- Patient is interested in [facility] following hospitalization
[2016-08-16] MEDS: HEPARIN SOD (PORCINE) 1000 UNIT/ML 10 ML VIAL IV SCH ×3 (10:45→12:42)
--- NOTE | 2016-08-16 14:56 | Progress Note ---
Subjective Date of Service: Aug 16, 2016. Subjective Pt evaluation today including: conversation w/ patient, physical exam, chart review, lab review, review of studies, review of inpatient medication list Pt in dialysis Resting comfortably No worsening shortness of breath Pt states close to baseline Problem List Medical Problems: (1) Altered mental status Status: Acute (2) Anasarca Status: Acute (3) Anasarca Status: Acute (4) Bilateral cellulitis of lower leg Status: Acute (5) Bilateral lower leg cellulitis Status: Acute (6) Change in mental status Status: Acute (7) Chronic renal failure Status: Acute (8) CO2 retention Status: Acute (9) Dehydration Status: Acute (10) Dyspnea on exertion Status: Acute (11) Fall Status: Acute (12) Fever Status: Acute (13) Fever Status: Acute (14) Generalized weakness Status: Acute (15) Hypercarbia Status: Acute (16) Hyperkalemia Status: Acute (17) Hypokalemia Status: Acute (18) Hypoxemia Status: Acute (19) Hypoxia Status: Acute (20) Lumbar strain Status: Acute (21) Respiratory failure Status: Acute (22) Respiratory failure with hypercapnia Status: Acute (23) Weakness Status: Acute (24) Weight gain Status: Acute (25) Wrist pain Status: Acute Review of Systems Constitutional: No fever, No chills, No sweats, No weight loss Eyes: No worsening of vision, No eye pain, No redness, No discharge Respiratory: + cough, + wheezing, + shortness of breath, + dyspnea on exertion , No sputum Cardiac: + edema, No chest pain, No orthopnea, No PND Abdomen: No pain, No nausea, No vomiting, No diarrhea, No constipation Musculoskeletal: No joint pain, No muscle pain, No swelling, No calf pain Female : No dysuria, No urinary frequency, No hematuria, No incontinence Neurologic: No memory loss, No paralysis, No weakness, No numbness/tingling Psychiatric: No depression symptoms, No anhedonism, No anxiety, No insomnia Objective Vital Signs Date Time Temp Pulse Resp B/P (MAP) Pulse Ox O2 Delivery O2 Flow Rate FiO2 08/16/16 14:04 36.6 81 124/65 (84) 08/16/16 13:45 79 125/61 08/16/16 13:30 78 122/65 08/16/16 13:15 79 121/72 08/16/16 13:00 77 135/66 08/16/16 12:45 76 134/42 08/16/16 12:30 75 138/66 08/16/16 12:15 78 138/72 08/16/16 12:00 72 141/61 08/16/16 11:45 72 152/60 08/16/16 11:30 72 122/58 08/16/16 11:15 71 121/56 08/16/16 11:00 70 118/58 08/16/16 10:45 76 111/48 08/16/16 10:30 72 126/63 08/16/16 10:15 71 114/59 08/16/16 10:00 70 116/57 08/16/16 09:50 72 128/65 08/16/16 09:45 74 110/68 08/16/16 09:35 36.5 73 128/64 (85) 08/16/16 08:00 Nasal Cannula 3.0 BiPAP 08/16/16 07:01 36.9 91 20 135/70 (91) 93 Nasal Cannula 4.0 08/16/16 00:11 36.8 69 20 129/80 (96) 92 08/16/16 00:00 CPAP 08/15/16 20:30 93 Nasal Cannula 4.0 08/15/16 15:48 Nasal Cannula 4.0 BiPAP Physical Exam General Appearance: WD/WN, no apparent distress, + obese Eyes: normal inspection, PERRL, EOMI, sclerae normal Neck: supple, no adenopathy, thyroid normal, no JVD Respiratory/Chest: chest non-tender, no accessory muscle use, + decreased breath sounds, + wheezing Cardiovascular: regular rate, rhythm, no edema, no gallop, no murmur Abdomen: normal bowel sounds, non tender, soft, no organomegaly Extremities: normal range of motion, non-tender, normal inspection, no pedal edema 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: 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, no motor/sensory deficits, alert, normal mood/affect Laboratory Results Last 24 Hours Test 08/15/16 16:25 08/15/16 20:05 08/16/16 05:57 08/16/16 07:18 Bedside Glucose 255 mg/dl 237 mg/dl 214 mg/dl White Blood Count 7.90 K/uL Red Blood Count 3.45 M/uL Hemoglobin 10.5 g/dL Hematocrit 33.8 % Mean Corpuscular Volume 98.0 fL Mean Corpuscular Hemoglobin 30.4 pg Mean Corpuscular Hemoglobin Concent 31.1 g/dl Platelet Count 175 K/uL Mean Platelet Volume 9.8 fL Neutrophils (%) (Auto) 68.7 % Lymphocytes (%) (Auto) 12.9 % Monocytes (%) (Auto) 14.6 % Eosinophils (%) (Auto) 2.5 % Basophils (%) (Auto) 0.3 % Neutrophils # (Auto) 5.43 K/uL Lymphocytes # (Auto) 1.02 K/uL Monocytes # (Auto) 1.15 K/uL Eosinophils # (Auto) 0.20 K/uL Basophils # (Auto) 0.02 K/uL RDW Standard Deviation 74.2 fL RDW Coefficient of Variation 20.9 % Immature Granulocyte % (Auto) 1.0 % Immature Granulocyte # (Auto) 0.08 K/uL Nucleated RBC Absolute Count (auto) 0.14 K/uL Nucleated Red Blood Cells % 1.8 % Polychromasia 1+ Anisocytosis PRESENT Sodium Level 132 mmol/L Potassium Level 4.4 mmol/L Chloride Level 94 mmol/L Carbon Dioxide Level 26 mmol/L Anion Gap 12.0 mmol/L Blood Urea Nitrogen 72 mg/dl Creatinine 7.90 mg/dl Est Creatinine Clear Calc Drug Dose 10.5 ml/min Estimated GFR () 5.7 Estimated GFR (Non- 5.0 BUN/Creatinine Ratio 9.2 Random Glucose 183 mg/dl Calcium Level 7.7 mg/dl Test 08/16/16 12:11 08/16/16 14:22 Bedside Glucose 161 mg/dl 196 mg/dl Assessment and Plan 60-year-old female with extensive PMHx presents to the ER with complaints of weakness and frequent falls due to excessive jerkiness. Acute on chronic hypercapnic resp failure Pt reports close to baseline, pulm recs appreciated Noted CO2 levels are chronically elevated in 60-70s per previous ABGs Pulm consulted Cont O2 and BiPAP, and duonebs Cont advair, spiriva and prednisone Frequent falls: likely secondary to deconditioning, weakness, jerkiness - Head CT: Negative for any acute changes - Physical therapy and occupational therapy consult - Dced weight loss med in setting of dialysis, jerkiness and recurrent falls - Improvement in jerkiness CKD stage 5 requiring hemodialysis Secondary to diabetic nephropathy and hypertensive sclerosis - Creatinine on admission 6.1 - Scheduled for hemodialysis in AM -Nephrology consult -Vascular surgery consulted for fistula placement, mapping already completed, scheduled for next thursday Hyperkalemia: resolved -K at 5.7 on admission -EKG normal Monitor K Hypercalcemia: Serum free light chain ratio is elevated. UIEP was positive for IgG [place] monoclonal protein during outpatient workup - Followed by Dr. Delong, pending further evaluation Cor pulmonale : Last echo 07/25/15: Hyperdynamic LV systolic function. Mild concentric LV hypertrophy. LV diastolic dysfunction. Mild RV dilatation and systolic dysfunction. Mild tricuspid regurgitation. Mildly elevated RV systolic pressure. Normal central venous pressure * Ejection Fraction = >70 % Daily weights, I's and O's COPD: - Advair, Spiriva, DuoNeb - Home dose of prednisone 15mg daily - 3L O2 via nasal cannula during the day, BiPAP overnight Chronic venous insufficiency - leg elevation with compression stockings HTN - Continue Toprol-XL 150 mg and verapamil CR 240 mg DM - last HbA1c 6.3 on 05/20/16 - insulin sliding scale - Glycemic consult Gout - asymptomatic - Allopurinol 100mg daily currently held Is currently on prednisone which would help with acute flares Peripheral neuropathy/chronic pain - Pregabalin 150 mg 3 times a day , Dilaudid when necessary VTE prophylaxis - Heparin SQ Full code
--- NOTE | 2016-08-16 15:01 | Pharmacy Progress Note ---
Glycemic: Assessment & Plan Date of Service Aug 16, 2016. Assessment & Plan * The patient is currently receiving 261 units of insulin per day. BSGs ranging 162 - 255 mg/dl over the past 24hrs. Today's FBG is 214 mg/dl. * Although pt's FBG this morning was elevated, I suspect the problem to be insufficient prandial coverage. Yesterday's TDD of insulin leaned more toward heavier basal (although not by much). * Tighten Novolog parameters. * Continue Lantus. GLYCEMIC PLAN: * Basal insulin: Continue - Lantus 70 units every 12 hours * Correctional Insulin: Novolog Correction per scale ACHS Goal Range: Low 110 mg/dL - High 140 mg/dL Tighten - Correction Factor: 6 mg/dL/unit * Prandial insulin: Tighten - Per carb ratio of 1 unit per 1.5 grams CHO consumed Pharmacy will continue to monitor patient daily and write orders per [facility] inpatient glycemic control protocol. Thanks. * Please note that the plan above was derived based on current level of insulin resistance and hospital stress. These recommendations are appropriate for inpatient admission only. Plan of care upon discharge will need to be reassessed to avoid potential outpatient hypo/hyperglycemia.
[2016-08-16] MEDS: METOPROLOL SUCC 50MG EXT REL TAB PO SCH (15:07)
[2016-08-16] MEDS: VERAPAMIL HCL 240 MG TABCR PO SCH (21:02)
[2016-08-17] MEDS ORDERED: INSULIN ASPART 100 UNITS/ML 3 ML PEN SC ONE (02:00)
[2016-08-17] MEDS: ACETAMINOPHEN 325 MG TAB PO PRN (03:19)
[2016-08-17 05:54] LABS: BASO % 0.3 %; BASO ABS # 0.03 K/uL (0-0.2); EOS % 2.2 %; IG% 1.3 %; LYMPH % 13.1 %; LYMPH ABS # 1.36 K/uL (1.2-3.4); MEAN CELL VOLUME 99.7 fL (80-100); MEAN CORPUSCULAR HEMOGLOBIN 31.3 pg (25-34); MEAN CORPUSCULAR HGB CONC 31.4 g/dl (32-36); MEAN PLATELET VOLUME 9.9 fL (7.4-10.4); MONO % 14.6 %; NEUT % 68.5 %; PLATELET COUNT 209 K/uL (130-400); RED BLOOD COUNT 3.71 M/uL (4.2-5.4); WHITE BLOOD COUNT 10.35 K/uL (4.8-10.8)
[2016-08-17 06:18] LABS: ANISOCYTOSIS PRESENT; COMPLETE YES
[2016-08-17 06:38] LABS: BUN/CREATININE RATIO 7.3 (10-20); CALCIUM 8.4 mg/dl (8.5-10.1); CREATININE 6.2 mg/dl (0.60-1.20); POTASSIUM 4.6 mmol/L (3.5-5.1)
[2016-08-17 06:46] VITALS: BP 104/62; PULSE 68; TEMP 36.7; O2SAT 96
[2016-08-17] MEDS: TIOTROPIUM BROMIDE 5 PUFF/90 MCG INH INH SCH (08:42)
[2016-08-17] MEDS: ATORVASTATIN 40 MG TAB PO SCH (08:42)
[2016-08-17] MEDS: CALCIUM ACETATE 667MG GELCAP PO SCH ×3 (08:42→17:16)
[2016-08-17] MEDS: FLUTICASONE/SALMETEROL (ADVAIR) 500/50 INH 14 PUFF INH SCH ×2 (08:42→20:58)
[2016-08-17] MEDS: ALLOPURINOL 100 MG TAB PO SCH (08:42)
[2016-08-17] MEDS: PYRIDOXINE HCL 50 MG TAB PO SCH (08:42)
[2016-08-17] MEDS: METOPROLOL SUCC 50MG EXT REL TAB PO SCH (08:42)
[2016-08-17] MEDS: PANTOprazole SOD 40 MG TAB PO SCH (08:43)
[2016-08-17] MEDS: CHOLECALCIFEROL 1000 INTER.UNIT TAB PO SCH (08:43)
[2016-08-17] MEDS: INSULIN ASPART 100 UNITS/ML 3 ML PEN SC SCH ×4 (08:54→20:57)
[2016-08-17] MEDS: INSULIN GLARGINE SC SCH ×2 (08:55→20:56)
[2016-08-17] MEDS: AMMONIUM LACTATE 12% LOTION 225 GM BTL EXT SCH ×2 (09:04→20:59)
--- NOTE | 2016-08-17 10:05 | Nephrology Progress Note ---
Nephrology Progress Note Date of Service Aug 17, 2016. Chief Complaint Follow up evaluation of this patient w/ ESRD admitted with daytime somnolence and weakness Subjective Mrs. Gaytan was seen & examined in her hospital room this morning. Her was present at bedside. She was dialyzed yesterday for 4 hours w/ 3.3 L UF. There were no complications. The patient reports that her LE edema is improved. Her notes that she is more alert since her Lyrica dose has been reduced and Belviq has been stopped. Review of Systems Constitutional: No fever Cardiovascular: No chest pain Respiratory: No dyspnea at rest Abdomen: No pain, No nausea, No vomiting Extremities: No leg edema A complete review of systems was performed. Pertinent positives are noted above. All other systems are negative. Vital Signs Last 8 Hrs Date Time Temp Pulse Resp B/P (MAP) Pulse Ox O2 Delivery O2 Flow Rate FiO2 08/17/16 08:50 Nasal Cannula 3.0 BiPAP 08/17/16 06:46 36.7 68 20 104/62 (76) 96 Nasal Cannula 3.0 Last Recorded Weight Weight (Kilograms): 139.700 Physical Exam General Appearance: no apparent distress Head: atraumatic Eyes: PERRL Neck: no adenopathy Respiratory/Chest: lungs clear Cardiovascular: regular rate, rhythm Abdomen/GI: normal bowel sounds, non tender, soft Extremities/Musculoskelatal: no calf tenderness, + pertinent finding (trace pretibial edema) Neurologic/Psych: alert Family History Cancer Diabetes mellitus Gallbladder disease Heart disease Lung disease Social History Smoking Status: Former smoker Drug Use: none Marital Status: Housing Status: lives with family Occupation: unemployed Laboratory Results Past 24 Hours 08/17/16 05:18 Red Blood Count 3.71, Mean Corpuscular Volume 99.7, Mean Corpuscular Hemoglobin 31.3, Mean Corpuscular Hemoglobin Concent 31.4, Mean Platelet Volume 9.9, Neutrophils (%) (Auto) 68.5, Lymphocytes (%) (Auto) 13.1, Monocytes (%) (Auto) 14.6, Eosinophils (%) (Auto) 2.2, Basophils (%) (Auto) 0.3, Neutrophils # (Auto ) 7.09, Lymphocytes # (Auto) 1.36, Monocytes # (Auto) 1.51, Eosinophils # (Auto ) 0.23, Basophils # (Auto) 0.03 6/18/17 05:18 Test 08/16/16 12:11 08/16/16 14:22 08/16/16 16:49 08/16/16 20:50 Bedside Glucose 161 mg/dl (70-90) 196 mg/dl (70-90) 278 mg/dl (70-90) 181 mg/dl (70-90) Test 08/17/16 01:56 08/17/16 05:18 08/17/16 07:23 08/17/16 08:36 Bedside Glucose 143 mg/dl (70-90) 198 mg/dl (70-90) White Blood Count 10.35 K/uL (4.8-10.8) Red Blood Count 3.71 M/uL (4.2-5.4) Hemoglobin 11.6 g/dL (12.0-16.0) Hematocrit 37.0 % (37-47) Mean Corpuscular Volume 99.7 fL (80-100) Mean Corpuscular Hemoglobin 31.3 pg (25-34) Mean Corpuscular Hemoglobin Concent 31.4 g/dl (32-36) Platelet Count 209 K/uL (130-400) Mean Platelet Volume 9.9 fL (7.4-10.4) Neutrophils (%) (Auto) 68.5 % Lymphocytes (%) (Auto) 13.1 % Monocytes (%) (Auto) 14.6 % Eosinophils (%) (Auto) 2.2 % Basophils (%) (Auto) 0.3 % Neutrophils # (Auto) 7.09 K/uL (1.4-6.5) Lymphocytes # (Auto) 1.36 K/uL (1.2-3.4) Monocytes # (Auto) 1.51 K/uL (0.11-0.59) Eosinophils # (Auto) 0.23 K/uL (0-0.5) Basophils # (Auto) 0.03 K/uL (0-0.2) RDW Standard Deviation 76.1 fL (36.4-46.3) RDW Coefficient of Variation 21.1 % (11.5-14.5) Immature Granulocyte % (Auto) 1.3 % Immature Granulocyte # (Auto) 0.13 K/uL (0.00-0.02) Nucleated RBC Absolute Count (auto) 0.25 K/uL (0-0) Nucleated Red Blood Cells % 2.4 % Anisocytosis PRESENT Anion Gap 10.0 mmol/L (3-11) Est Creatinine Clear Calc Drug Dose 13.4 ml/min Estimated GFR () 7.7 Estimated GFR (Non- 6.6 BUN/Creatinine Ratio 7.3 (10-20) Calcium Level 8.4 mg/dl (8.5-10.1) Allergies Coded Allergies: Daptomycin (Verified Allergy, Mild, HIVES, 07/24/16) itching Iodine (Verified Allergy, Unknown, 07/24/16) Shellfish (Verified Allergy, Unknown, 07/24/16) Sulfamethoxazole w/Trimethoprim (Verified Allergy, Unknown, RASH, 07/24/16) Codeine (Verified Adverse Reaction, Unknown, NAUSEA, 08/14/16) has tolerated morphine Medications Current Inpatient Medications Medications (Trade) Dose Ordered Sig/Duyen Route Start Time Stop Time Status Last Admin Dose Admin Acetaminophen (Tylenol Tab) 650 mg Q4H PRN PO 08/13/16 23:45 09/12/16 23:44 08/17/16 03:19 650 MG Ondansetron HCl (Zofran Inj) 4 mg Q6H PRN IV 08/13/16 23:45 09/12/16 23:44 Polyethylene (Miralax Powder Packet) 17 gm DAILY PRN PO 08/13/16 23:45 09/12/16 23:44 Miscellaneous (Iv Fluids Completed) 1 ea PRN PRN N/A 08/14/16 01:00 08/14/17 00:59 Miscellaneous Information (Consult Glycemic Management Pharmacy) 1 ea UD PRN N/A 08/14/16 08:19 09/13/16 08:18 Allopurinol (Zyloprim Tab) 100 mg DAILY PO 08/14/16 10:00 09/13/16 09:59 08/17/16 08:42 100 MG Atorvastatin Calcium (Lipitor Tab) 40 mg DAILY PO 08/14/16 10:00 09/13/16 09:59 08/17/16 08:42 40 MG Cholecalciferol (Vitamin D Tab) 1,000 inter.unit DAILY PO 08/14/16 10:00 09/13/16 09:59 08/17/16 08:43 1,000 INTER.UNIT Salmeterol Xinafoate/ Fluticasone (Advair Diskus 500/50 Inh) 1 puff BID INH 08/14/16 10:00 09/13/16 09:59 08/17/16 08:42 1 PUFF Albuterol/ Ipratropium (Duoneb) 3 ml Q6H PRN INH 08/14/16 08:00 09/13/16 07:59 Ammonium Lactate (Lac-Hydrin) 1 appl BID EXT 08/14/16 10:00 09/13/16 09:59 08/17/16 09:04 1 APPL Metoprolol Succinate (Toprol Xl Tab) 150 mg DAILY PO 08/14/16 10:00 09/13/16 09:59 08/17/16 08:42 150 MG Miconazole Nitrate (Desenex Powder) 1 appln UD PRN EXT 08/14/16 08:00 09/13/16 07:59 Pantoprazole Sodium (Protonix Tab) 40 mg DAILY PO 08/14/16 10:00 09/13/16 09:59 08/17/16 08:43 40 MG Prednisone (PredniSONE TAB) 15 mg DAILY PO 08/14/16 10:00 09/13/16 09:59 08/17/16 08:43 15 MG Pyridoxine HCl (Vitamin B-6 Tab) 200 mg DAILY PO 08/14/16 10:00 09/13/16 09:59 08/17/16 08:42 200 MG Tiotropium [place] (Spiriva Handihaler Inhaler) 1 puff DAILY INH 08/14/16 10:00 09/13/16 09:59 08/17/16 08:42 1 PUFF Verapamil HCl (Calan-Sr Tab) 240 mg HS PO 08/14/16 21:00 09/13/16 20:59 08/16/16 21:02 240 MG Insulin Aspart (novoLOG ASPART) SLIDING SCALE ACHS SC 08/14/16 08:00 09/13/16 07:59 08/17/16 08:54 47 UNITS Calcium Acetate (Phoslo Cap) 667 mg TIDM PO 08/14/16 11:30 09/13/16 11:29 08/17/16 08:42 667 MG Acetaminophen/ Hydrocodone Bitart ([place] 5/325 Tab) 1 tab Q6H PRN PO 08/14/16 22:30 08/28/16 22:29 08/16/16 23:08 1 TAB Pregabalin (Lyrica Cap) 150 mg DAILY PO 08/16/16 09:00 09/15/16 08:59 08/16/16 07:53 150 MG Insulin Glargine (Lantus Vial) 77 unit BID SC 08/17/16 21:00 09/16/16 20:59 Impression (1) ESRD on hemodialysis (2) Hypercapnic respiratory failure (3) CO2 narcosis (4) Obesity hypoventilation syndrome (5) Hyperkalemia (6) Morbid obesity with BMI of 50.0-59.9, adult (7) Arthritis (8) Hyperphosphatemia Hemalatha is a 60-year-old female with morbid obesity, obesity hypoventilation syndrome, recurrent hypercapnia, advanced chronic kidney disease requiring [employer], right heart failure and failure of diuretic therapy. She has had multiple recent hospitalizations for volume overload and electrolyte abnormalities associated with diuretics. Hemalatha developed GUNNAR on CKD 3 progressing to ESRD requiring perm cath placement and initiation of hemodialysis during hospitalization in June 2016. Permcath was placed 07/25. She completed her first dialysis treatment on 07/25. She is on hemodialysis at [facility] TTS schedule. She currently dialyzes via a TDC. Vein mapping for future AVF placement was recently completed by Dr. Thapa. Recommendations ESRD: -- Patient is scheduled for AVF Thursday -- Will shift to a MWF HD schedule to accommodate surgical schedule. -- Renal diet CO2 NARCOSIS / OBESITY HYPOVENTILATION SYNDROME: -- Pulmonology recommendations reviewed. Patient may require adjustment to BiPAP prescription HYPERPHOSPHATEMIA: -- Phoslo QAC with monitoring of serum calcium (noted history of hypercalcemia) ARTHRITIS/CHRONIC PAIN: -- Lyrica dose has been reduced to 75 mg daily, take after HD on dialysis days -- Discourage aggressive use of opiates given concerns about acute and chronic CO2 retention and lethargy ANEMIA: -- Epogen held for hemoglobin >11 OTHER: -- Physical therapy consultation for strengthening. -- Patient is interested in [facility] following hospitalization
--- NOTE | 2016-08-17 10:50 | PULMONARY PROGRESS NOTE ---
DATE: 08/17/2016 SUBJECTIVE: The patient feels about the same. She is not having any shortness of breath. She wore her trilogy last night. She still feels weak. She thinks the weakness and shakiness is about the same overall. She did have dialysis yesterday. OBJECTIVE: GENERAL: The patient appears comfortable. VITAL SIGNS: Temperature is 36.7. EARS, NOSE, THROAT: Unchanged. NECK: She has a very large neck chronically. HEART: Rate is 68 per minute. Blood pressure 104/62. LUNGS: Lung rain were clear bilaterally. No wheezes, rales or rhonchi were heard. Saturation was 96% on 3 liters. I would prefer if her oxygen levels were kept somewhat lower in order to stimulate ventilation a bit. ABDOMEN: Obese. Good bowel sounds were heard. EXTREMITIES: There was no focal tenderness. LABORATORY DATA: White count today is 10.35. Hemoglobin is 11.6. Platelets are 209,000. Electrolytes show sodium 133, potassium 4.6, chloride 99, and bicarbonate 24. BUN was 45 with a creatinine of 6.2. IMPRESSIONS: 1. Respiratory failure -- acute on chronic. 2. Obesity hypoventilation syndrome. 3. Obstructive sleep apnea. 4. Chronic obstructive pulmonary disease. 5. Renal failure. COMMENTS AND RECOMMENDATIONS: The patient seems clinically a little bit better. I am going to recheck a blood gas to see if her pCO2 and pH have done any better. We still need to keep her saturations between 88% and 92%.
[2016-08-17 10:59] LABS: ARTERIAL BLD GAS O2 SATURATION 94.2 % (90-95); ARTERIAL BLOOD GAS BASE EXCESS -6.6 mEq/L (-9-1.8); ARTERIAL BLOOD GAS HCO3 20 mmol/L (19-24); ARTERIAL BLOOD GAS PO2 84 mm/Hg (80-95); ARTERIAL BLOOD GAS pH 7.26 (7.35-7.45)
[2016-08-17 11:00] LABS: ALLEN TEST POS (POS); O2 ADMINISTRATION 3L
[2016-08-17] MEDS: HYDROCODONE/ACETAMOPHEN 5/325MG TAB PO PRN ×2 (11:00→23:59)
--- NOTE | 2016-08-17 12:50 | Progress Note ---
Subjective Date of Service: Aug 17, 2016. Subjective Pt evaluation today including: conversation w/ patient, physical exam, chart review, lab review, review of studies, review of inpatient medication list Resting comfortably in bed Reports no worsening shortness of breath TOlerating BiPAP at bedside Problem List Medical Problems: (1) Altered mental status Status: Acute (2) Anasarca Status: Acute (3) Anasarca Status: Acute (4) Bilateral cellulitis of lower leg Status: Acute (5) Bilateral lower leg cellulitis Status: Acute (6) Change in mental status Status: Acute (7) Chronic renal failure Status: Acute (8) CO2 retention Status: Acute (9) Dehydration Status: Acute (10) Dyspnea on exertion Status: Acute (11) Fall Status: Acute (12) Fever Status: Acute (13) Fever Status: Acute (14) Generalized weakness Status: Acute (15) Hypercarbia Status: Acute (16) Hyperkalemia Status: Acute (17) Hypokalemia Status: Acute (18) Hypoxemia Status: Acute (19) Hypoxia Status: Acute (20) Lumbar strain Status: Acute (21) Respiratory failure Status: Acute (22) Respiratory failure with hypercapnia Status: Acute (23) Weakness Status: Acute (24) Weight gain Status: Acute (25) Wrist pain Status: Acute Review of Systems Constitutional: No fever, No chills, No sweats, No weakness Eyes: No worsening of vision, No eye pain, No redness, No discharge ENT: No hearing loss, No unusual epistaxis, No nasal symptoms, No sore throat Respiratory: + dyspnea at rest, No cough, No sputum, No wheezing Cardiac: No chest pain, No orthopnea, No PND, No edema Abdomen: No pain, No nausea, No vomiting, No diarrhea, No constipation Musculoskeletal: No joint pain, No muscle pain, No swelling, No calf pain Female : No dysuria, No urinary frequency, No hematuria, No incontinence Neurologic: No memory loss, No paralysis, No weakness, No numbness/tingling Psychiatric: No depression symptoms, No anhedonism, No anxiety, No insomnia Objective Vital Signs Date Time Temp Pulse Resp B/P (MAP) Pulse Ox O2 Delivery O2 Flow Rate FiO2 08/17/16 08:50 Nasal Cannula 3.0 BiPAP 08/17/16 06:46 36.7 68 20 104/62 (76) 96 Nasal Cannula 3.0 08/17/16 00:18 CPAP 08/16/16 23:10 37.2 88 20 112/68 (83) 94 Nasal Cannula 3.0 08/16/16 19:59 Nasal Cannula 3.0 08/16/16 15:42 Nasal Cannula 3.0 BiPAP 08/16/16 14:57 36.8 85 18 126/60 (82) 95 Nasal Cannula 2.0 08/16/16 14:04 36.6 81 124/65 (84) 08/16/16 13:45 79 125/61 08/16/16 13:30 78 122/65 08/16/16 13:15 79 121/72 08/16/16 13:00 77 135/66 08/16/16 12:45 76 134/42 Physical Exam General Appearance: WD/WN, no apparent distress, + obese Eyes: normal inspection, PERRL, EOMI, sclerae normal Neck: supple, no adenopathy, thyroid normal, no JVD Respiratory/Chest: chest non-tender, lungs clear, normal breath sounds, no respiratory distress Cardiovascular: regular rate, rhythm, no edema, no gallop, no JVD Abdomen: normal bowel sounds, non tender, soft, no organomegaly 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: no motor/sensory deficits, alert, normal mood/affect, oriented x 3 Laboratory Results Last 24 Hours Test 08/16/16 14:22 08/16/16 16:49 08/16/16 20:50 08/17/16 01:56 Bedside Glucose 196 mg/dl 278 mg/dl 181 mg/dl 143 mg/dl Test 08/17/16 05:18 08/17/16 07:23 08/17/16 10:45 08/17/16 11:27 White Blood Count 10.35 K/uL Red Blood Count 3.71 M/uL Hemoglobin 11.6 g/dL Hematocrit 37.0 % Mean Corpuscular Volume 99.7 fL Mean Corpuscular Hemoglobin 31.3 pg Mean Corpuscular Hemoglobin Concent 31.4 g/dl Platelet Count 209 K/uL Mean Platelet Volume 9.9 fL Neutrophils (%) (Auto) 68.5 % Lymphocytes (%) (Auto) 13.1 % Monocytes (%) (Auto) 14.6 % Eosinophils (%) (Auto) 2.2 % Basophils (%) (Auto) 0.3 % Neutrophils # (Auto) 7.09 K/uL Lymphocytes # (Auto) 1.36 K/uL Monocytes # (Auto) 1.51 K/uL Eosinophils # (Auto) 0.23 K/uL Basophils # (Auto) 0.03 K/uL RDW Standard Deviation 76.1 fL RDW Coefficient of Variation 21.1 % Immature Granulocyte % (Auto) 1.3 % Immature Granulocyte # (Auto) 0.13 K/uL Nucleated RBC Absolute Count (auto) 0.25 K/uL Nucleated Red Blood Cells % 2.4 % Anisocytosis PRESENT Sodium Level 133 mmol/L Potassium Level 4.6 mmol/L Chloride Level 99 mmol/L Carbon Dioxide Level 24 mmol/L Anion Gap 10.0 mmol/L Blood Urea Nitrogen 45 mg/dl Creatinine 6.20 mg/dl Est Creatinine Clear Calc Drug Dose 13.4 ml/min Estimated GFR () 7.7 Estimated GFR (Non- 6.6 BUN/Creatinine Ratio 7.3 Random Glucose 171 mg/dl Calcium Level 8.4 mg/dl Bedside Glucose 198 mg/dl 175 mg/dl Arterial Blood pH 7.26 Arterial Blood Partial Pressure CO2 46 mmHg Arterial Blood Partial Pressure O2 84 mm/Hg Arterial Blood HCO3 20 mmol/L Arterial Blood Oxygen Saturation 94.2 % Arterial Blood Base Excess -6.6 mEq/L Arterial Blood Gas Delivery 3L Oleg Test POS Assessment and Plan 60-year-old female with extensive PMHx presents to the ER with complaints of weakness and frequent falls due to excessive jerkiness. Acute on chronic hypercapnic resp failure At baseline, pulm recs appreciated Noted CO2 levels are chronically elevated in 60-70s per previous ABGs Pulm consulted Cont O2 and BiPAP, and duonebs Cont advair, spiriva and prednisone Frequent falls: likely secondary to deconditioning, weakness, jerkiness - Head CT: Negative for any acute changes - Physical therapy and occupational therapy consult - Dced weight loss med in setting of dialysis, jerkiness and recurrent falls - Improvement in jerkiness CKD stage 5 requiring hemodialysis Secondary to diabetic nephropathy and hypertensive sclerosis - Creatinine on admission 6.1 -Nephrology consult -Dialysis will be scheduled MWF next week to accommodate surgery schedule -Vascular surgery consulted for fistula placement, mapping already completed, scheduled for next thursday Hyperkalemia: resolved -K at 5.7 on admission -EKG normal Monitor K Hypercalcemia: Serum free light chain ratio is elevated. UIEP was positive for IgG [place] monoclonal protein during outpatient workup - Followed by Dr. Delong, pending further evaluation Cor pulmonale : Last echo 07/25/15: Hyperdynamic LV systolic function. Mild concentric LV hypertrophy. LV diastolic dysfunction. Mild RV dilatation and systolic dysfunction. Mild tricuspid regurgitation. Mildly elevated RV systolic pressure. Normal central venous pressure * Ejection Fraction = >70 % Daily weights, I's and O's COPD: - Advair, Spiriva, DuoNeb - Home dose of prednisone 15mg daily - 3L O2 via nasal cannula during the day, BiPAP overnight Chronic venous insufficiency - leg elevation with compression stockings HTN - Continue Toprol-XL 150 mg and verapamil CR 240 mg DM - last HbA1c 6.3 on 05/20/16 - insulin sliding scale - Glycemic consult Gout - asymptomatic - Allopurinol 100mg daily currently held Is currently on prednisone which would help with acute flares Peripheral neuropathy/chronic pain - Pregabalin 150 mg 3 times a day , Dilaudid when necessary VTE prophylaxis - Heparin SQ Full code
--- NOTE | 2016-08-17 14:43 | Pharmacy Progress Note ---
Glycemic Control: Progress Nt Date of Service Aug 17, 2016. Scope Glycemic Pharmacist consulted by on 08/14/16 for glycemic control and to write orders per [facility] inpatient glycemic control protocol. Objective Accuchecks BSG (last 24hrs): Test 08/16/16 16:49 08/16/16 20:50 08/17/16 01:56 08/17/16 05:18 Bedside Glucose 278 mg/dl (70-90) 181 mg/dl (70-90) 143 mg/dl (70-90) Random Glucose 171 mg/dl (70-99) Test 08/17/16 07:23 08/17/16 11:27 Bedside Glucose 198 mg/dl (70-90) 175 mg/dl (70-90) Laboratory Data (last 24hrs) Test 08/17/16 05:18 Anion Gap 10.0 mmol/L BUN/Creatinine Ratio 7.3 Blood Urea Nitrogen 45 mg/dl Creatinine 6.20 mg/dl Potassium Level 4.6 mmol/L Sodium Level 133 mmol/L White Blood Count 10.35 K/uL Red Blood Count 3.71 M/uL Hemoglobin 11.6 g/dL Hematocrit 37.0 % Mean Corpuscular Volume 99.7 fL Mean Corpuscular Hemoglobin 31.3 pg Mean Corpuscular Hemoglobin Concent 31.4 g/dl Platelet Count 209 K/uL Mean Platelet Volume 9.9 fL Neutrophils (%) (Auto) 68.5 % Lymphocytes (%) (Auto) 13.1 % Monocytes (%) (Auto) 14.6 % Eosinophils (%) (Auto) 2.2 % Basophils (%) (Auto) 0.3 % Neutrophils # (Auto) 7.09 K/uL Lymphocytes # (Auto) 1.36 K/uL Monocytes # (Auto) 1.51 K/uL Eosinophils # (Auto) 0.23 K/uL Basophils # (Auto) 0.03 K/uL Recent Pertinent Medications Outpatient Anti-diabetic Regimen: * Toujeo 70 units TID, Novolog 5050// +/-40 * TDD - 400-440 units * A1c = 6.3 % 05/20/16- may be inaccurate in pt with ESRD on dialysis due to lifespan of RBCs among other complicating factors. Risk Factors for Insulin Resistance: * Steroids: Prednisone 15mg daily * Recent Surgery: Fistula placement planned for next Thursday * Diet: DM2 Assessment & Plan ASSESSMENT: * ADA & AACE recommend a goal blood sugar range 140-180 mg/dl for the majority of critically ill & non-critically ill patients. However, more stringent targets may be selected in individual cases. 08/17/16 * BSG control is good, however, there is room to improve. FBG is elevated above goal range (=198 mg/dl this morning). * Increase Lantus 10% * No change to Novolog parameters which were tightened yesterday. * HD is scheduled for MWF next week. Also, planning for fistula placement next . PLAN FOR INPATIENT GLYCEMIC CONTROL: * Increase Lantus to 77 units SQ BID * Novolog ACHS * Continue correction factor 6 mg/dl/unit * Continue carb ratio 1 unit per 1.5 grams CHO consumed * Continue goal range Low 110 mg/dL - High 140 mg/dL RECOMMENDATIONS FOR DISCHARGE: * Resume outpatient DM regimen * Please note that the plan above was derived based on current level of insulin resistance and hospital stress. These recommendations are appropriate for inpatient admission only. Plan of care upon discharge will need to be reassessed to avoid potential outpatient hypo/hyperglycemia. Thank you.
[2016-08-17 16:21] VITALS: BP 128/72; PULSE 77; TEMP 36.7; O2SAT 93
[2016-08-17] MEDS ORDERED: NURSING VERBAL MED ORDER ONE (17:45)
[2016-08-17] MEDS: VERAPAMIL HCL 240 MG TABCR PO SCH (20:59)
[2016-08-17 22:35] VITALS: BP 131/73; PULSE 80; TEMP 36.4; O2SAT 99
[2016-08-17] MEDS: ONDANSETRON INJ 2 MG/ML 2 ML VIAL IV PRN (22:48)
[2016-08-18] VITALS (20 sets, daily range): BP systolic 102–151; BP diastolic 51–78; PULSE 69–87; TEMP 36.5–36.7; O2SAT 94–97
[2016-08-18] MEDS: ONDANSETRON INJ 2 MG/ML 2 ML VIAL IV PRN ×2 (07:03→21:47)
[2016-08-18 08:04] LABS: BUN/CREATININE RATIO 8.7 (10-20); CALCIUM 8.3 mg/dl (8.5-10.1); CREATININE 8.3 mg/dl (0.60-1.20); POTASSIUM 5.2 mmol/L (3.5-5.1)
--- NOTE | 2016-08-18 08:38 | Progress Note ---
Progress Note Date of Service Aug 18, 2016. Progress Note Pt scheduled for LUE AC cephalic v AVF creation tomorrow, 08/19, in OR. Procedure, risks, benefits and alternatives discussed with pt, she expresses understanding and agreement.
[2016-08-18] MEDS: AMMONIUM LACTATE 12% LOTION 225 GM BTL EXT SCH ×2 (08:53→21:17)
[2016-08-18] MEDS: ALLOPURINOL 100 MG TAB PO SCH (08:54)
[2016-08-18] MEDS: TIOTROPIUM BROMIDE 5 PUFF/90 MCG INH INH SCH (08:54)
[2016-08-18] MEDS: CHOLECALCIFEROL 1000 INTER.UNIT TAB PO SCH (08:54)
[2016-08-18] MEDS: FLUTICASONE/SALMETEROL (ADVAIR) 500/50 INH 14 PUFF INH SCH ×2 (08:54→21:18)
[2016-08-18] MEDS: CALCIUM ACETATE 667MG GELCAP PO SCH ×3 (08:55→20:14)
[2016-08-18] MEDS: PANTOprazole SOD 40 MG TAB PO SCH (08:55)
[2016-08-18] MEDS: METOPROLOL SUCC 50MG EXT REL TAB PO SCH (08:55)
[2016-08-18] MEDS: PYRIDOXINE HCL 50 MG TAB PO SCH (08:55)
[2016-08-18] MEDS: ATORVASTATIN 40 MG TAB PO SCH (08:55)
[2016-08-18] MEDS: INSULIN ASPART 100 UNITS/ML 3 ML PEN SC SCH ×4 (08:57→21:13)
[2016-08-18] MEDS: INSULIN GLARGINE SC SCH ×2 (08:57→21:15)
--- NOTE | 2016-08-18 09:03 | Hospitalist Progress Note ---
Hospitalist Progress Note Date of Service Aug 18, 2016. Subjective Pt evaluation today including: conversation w/ patient, physical exam, chart review, lab review, review of studies, review of inpatient medication list Patient states she is feeling OK this AM. Admits to epigastric discomfort/nausea- receiving IV Zofran w/ improvement in symptoms- Protonix daily on board. +constipation, small/hard BM this AM- she possibly attributes to abdominal discomfort- begin MiraLAX daily Denies urinary output- HD schedule changed to MWF this week to accommodate surgical schedule -- Planning for AVF on 08/19 +chronic lower extremity edema- states has slightly worsened since Bumex was d/c 'd by Nephrology- continue leg elevated and TEDs +chronic bilateral hand/foot pain- slightly worse since Nephrology decreased Lyrica from 150 mg BID to 75 mg daily +hot flashes- no fevers documented Patient denies any chills, sweats, lightheadedness, dizziness, vision changes, CP, palpitations, edema, SOB, wheezing, cough, vomiting, diarrhea, urinary symptoms, melena, numbness/tingling, weakness, muscle pain, anxiety/depression, active bleeding, or new skin discoloration/changes. Medications Current Inpatient Medications Medications (Trade) Dose Ordered Sig/Duyen Route Start Time Stop Time Status Last Admin Dose Admin Acetaminophen (Tylenol Tab) 650 mg Q4H PRN PO 08/13/16 23:45 09/12/16 23:44 08/17/16 03:19 650 MG Ondansetron HCl (Zofran Inj) 4 mg Q6H PRN IV 08/13/16 23:45 09/12/16 23:44 08/18/16 07:03 4 MG Polyethylene (Miralax Powder Packet) 17 gm DAILY PRN PO 08/13/16 23:45 09/12/16 23:44 Miscellaneous (Iv Fluids Completed) 1 ea PRN PRN N/A 08/14/16 01:00 08/14/17 00:59 Miscellaneous Information (Consult Glycemic Management Pharmacy) 1 ea UD PRN N/A 08/14/16 08:19 09/13/16 08:18 Allopurinol (Zyloprim Tab) 100 mg DAILY PO 08/14/16 10:00 09/13/16 09:59 08/17/16 08:42 100 MG Atorvastatin Calcium (Lipitor Tab) 40 mg DAILY PO 08/14/16 10:00 09/13/16 09:59 08/17/16 08:42 40 MG Cholecalciferol (Vitamin D Tab) 1,000 inter.unit DAILY PO 08/14/16 10:00 09/13/16 09:59 08/17/16 08:43 1,000 INTER.UNIT Salmeterol Xinafoate/ Fluticasone (Advair Diskus 500/50 Inh) 1 puff BID INH 08/14/16 10:00 09/13/16 09:59 08/17/16 20:58 1 PUFF Albuterol/ Ipratropium (Duoneb) 3 ml Q6H PRN INH 08/14/16 08:00 09/13/16 07:59 Ammonium Lactate (Lac-Hydrin) 1 appl BID EXT 08/14/16 10:00 09/13/16 09:59 08/17/16 20:59 1 APPL Metoprolol Succinate (Toprol Xl Tab) 150 mg DAILY PO 08/14/16 10:00 09/13/16 09:59 08/17/16 08:42 150 MG Miconazole Nitrate (Desenex Powder) 1 appln UD PRN EXT 08/14/16 08:00 09/13/16 07:59 Pantoprazole Sodium (Protonix Tab) 40 mg DAILY PO 08/14/16 10:00 09/13/16 09:59 08/17/16 08:43 40 MG Prednisone (PredniSONE TAB) 15 mg DAILY PO 08/14/16 10:00 09/13/16 09:59 08/17/16 08:43 15 MG Pyridoxine HCl (Vitamin B-6 Tab) 200 mg DAILY PO 08/14/16 10:00 09/13/16 09:59 08/17/16 08:42 200 MG Tiotropium [place] (Spiriva Handihaler Inhaler) 1 puff DAILY INH 08/14/16 10:00 09/13/16 09:59 08/17/16 08:42 1 PUFF Verapamil HCl (Calan-Sr Tab) 240 mg HS PO 08/14/16 21:00 09/13/16 20:59 08/17/16 20:59 240 MG Insulin Aspart (novoLOG ASPART) SLIDING SCALE ACHS SC 08/14/16 08:00 09/13/16 07:59 08/17/16 20:57 16 UNITS Calcium Acetate (Phoslo Cap) 667 mg TIDM PO 08/14/16 11:30 09/13/16 11:29 08/17/16 17:16 667 MG Acetaminophen/ Hydrocodone Bitart ([place] 5/325 Tab) 1 tab Q6H PRN PO 08/14/16 22:30 08/28/16 22:29 08/17/16 23:59 1 TAB Insulin Glargine (Lantus Vial) 77 unit BID SC 08/17/16 21:00 09/16/16 20:59 08/17/16 20:56 77 UNIT Heparin Sodium (Porcine) (Heparin Iv Bolus) 3,000 unit 0600 IV 08/18/16 06:00 08/18/16 18:00 Pregabalin (Lyrica Cap) 75 mg DAILY@1600 PO 08/18/16 16:00 09/17/16 15:59 Objective Vital Signs Date Time Temp Pulse Resp B/P (MAP) Pulse Ox O2 Delivery O2 Flow Rate FiO2 08/18/16 07:29 36.5 69 20 147/64 (91) 94 08/18/16 01:04 Nasal Cannula 3.0 08/17/16 22:35 36.4 80 20 131/73 (92) 99 Nasal Cannula 3.0 08/17/16 21:28 Nasal Cannula 3.0 08/17/16 16:21 36.7 77 20 128/72 (90) 93 Nasal Cannula 2.0 08/17/16 15:50 Nasal Cannula 3.0 BiPAP 08/17/16 08:50 Nasal Cannula 3.0 BiPAP Physical Exam General Appearance: no apparent distress, + obese, + pertinent finding (O2 3L nasal supplement on ) Eyes: normal inspection, PERRL ENT: hearing grossly normal Neck: supple Respiratory/Chest: lungs clear, no respiratory distress, no accessory muscle use, + decreased breath sounds (throughout all lung rain ) Cardiovascular: regular rate, rhythm, + systolic murmur Abdomen: normal bowel sounds, non tender, + distended Extremities: + pedal edema, + swelling (trace pitting edema ), + pertinent finding (TEDs on ) 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: alert, normal mood/affect, oriented x 3 Skin: normal color, warm/dry, no rash Laboratory Results Last 24 Hours Test 08/17/16 10:45 08/17/16 11:27 08/17/16 16:12 08/17/16 20:38 Arterial Blood pH 7.26 Arterial Blood Partial Pressure CO2 46 mmHg Arterial Blood Partial Pressure O2 84 mm/Hg Arterial Blood HCO3 20 mmol/L Arterial Blood Oxygen Saturation 94.2 % Arterial Blood Base Excess -6.6 mEq/L Arterial Blood Gas Delivery 3L Oleg Test POS Bedside Glucose 175 mg/dl 254 mg/dl 232 mg/dl Test 08/18/16 07:09 08/18/16 07:34 Sodium Level 132 mmol/L Potassium Level 5.2 mmol/L Chloride Level 98 mmol/L Carbon Dioxide Level 23 mmol/L Anion Gap 11.0 mmol/L Blood Urea Nitrogen 73 mg/dl Creatinine 8.30 mg/dl Est Creatinine Clear Calc Drug Dose 10.0 ml/min Estimated GFR () 5.4 Estimated GFR (Non- 4.7 BUN/Creatinine Ratio 8.7 Random Glucose 188 mg/dl Calcium Level 8.3 mg/dl Bedside Glucose 189 mg/dl Assessment and Plan 60-year-old female with extensive PMHx presents to the ER with complaints of weakness and frequent falls due to excessive jerkiness. Acute on chronic hypercapnic respiratory failure- STABLE/obesity hypoventilation syndrome/MIKAYLA/COPD: - Continue O2- wears 3-4L of O2 supplement at home, and BiPAP HS - DuoNebs q6 hrs PRN - Continue Advair, Spiriva, and Prednisone 15 mg daily - Pulmonary consulted, appreciate recommendations Frequent falls, likely secondary to deconditioning, weakness, jerkiness: - Head CT- Negative for any acute changes - PT/OT- recommending acute inpatient rehab- patient agreeable - Belviq 10 mg BID d/c'd w/ moderate improvement in jerkiness/jitteriness - Nephrology decreased Lyrica from 150 mg daily to 75 mg daily CKD stage 5, secondary to diabetic nephropathy/hypertensive sclerosis- requiring HD TTS: - Nephrology consulted, appreciate recommendations -- Dialysis scheduled MWF week of 08/18 to accommodate surgery schedule -- Renal diet -- Hyperphosphatemia: Phoslo QAC -- Epogen held for hgb ?11.0 - Vascular surgery consulted for fistula placement, mapping already completed- scheduled for 08/19 Mild hyperkalemia, secondary to CKD stage V: - No acute EKG changes - Follow PRP K Hypercalcemia- noted during previous admission: - Serum free light chain ratio is elevated. UIEP was positive for IgG [place] monoclonal protein during outpatient workup - Followed by Dr. Delong, pending further evaluation Cor pulmonale: - Last echo 07/25/15: Hyperdynamic LV systolic function. Mild concentric LV hypertrophy. LV diastolic dysfunction. Mild RV dilatation and systolic dysfunction. Mild tricuspid regurgitation. Mildly elevated RV systolic pressure. Normal central venous pressure. Ejection Fraction = >70 % - Daily weights, I's and O's Chronic venous insufficiency: - Elevate legs. TEDs - Per patient, lower extremity edema has worsened since Dr. Neri d/c'ron Bumex treatment HTN- CONTROLLED: Continue Toprol-XL 150 mg and Verapamil CR 240 mg Dyslipidemia: Lipitor 40 mg daily DM- HbA1c 6.3% on 05/20/16: - Lantus 77 u BID - BSG ACHS w/ SSI - Pharmacy consulted for glycemic management Gout- ASYMPTOMATIC: Allopurinol 100 mg daily Peripheral neuropathy/chronic pain: - Pregabalin 150 mg BID decreased to 75 mg daily by nephrology- patient reports increased bilateral hand/foot pain - [place] q6 hrs PRN GI Prophylaxis: Protonix, Maalox PRN, IV Zofran PRN, Colace and/or Milk of Mag PRN, MiraLAX daily DVT Prophylaxis: Heparin Code Status: LEVEL I, FULL Dispo: Discharge when medically stable- likely to [facility]- geriatric social worker following
--- NOTE | 2016-08-18 09:15 | Nephrology Progress Note ---
Nephrology Progress Note Date of Service Aug 18, 2016. Chief Complaint Follow up evaluation of this patient w/ ESRD admitted with daytime somnolence and weakness Review of Systems A complete review of systems was performed. Pertinent positives are noted above. All other systems are negative. Vital Signs Last 8 Hrs Date Time Temp Pulse Resp B/P (MAP) Pulse Ox O2 Delivery O2 Flow Rate FiO2 08/18/16 07:29 36.5 69 20 147/64 (91) 94 Last Recorded Weight Weight (Kilograms): 139.700 Family History Cancer Diabetes mellitus Gallbladder disease Heart disease Lung disease Social History Smoking Status: Former smoker Drug Use: none Marital Status: Housing Status: lives with family Occupation: unemployed Laboratory Results Past 24 Hours 08/18/16 07:09 Test 08/17/16 10:45 08/17/16 11:27 08/17/16 16:12 08/17/16 20:38 Arterial Blood pH 7.26 (7.35-7.45) Arterial Blood Partial Pressure CO2 46 mmHg (35-46) Arterial Blood Partial Pressure O2 84 mm/Hg (80-95) Arterial Blood HCO3 20 mmol/L (19-24) Arterial Blood Oxygen Saturation 94.2 % (90-95) Arterial Blood Base Excess -6.6 mEq/L (-9-1.8) Arterial Blood Gas Delivery 3L Oleg Test POS (POS) Bedside Glucose 175 mg/dl (70-90) 254 mg/dl (70-90) 232 mg/dl (70-90) Test 08/18/16 07:09 08/18/16 07:34 Anion Gap 11.0 mmol/L (3-11) Est Creatinine Clear Calc Drug Dose 10.0 ml/min Estimated GFR () 5.4 Estimated GFR (Non- 4.7 BUN/Creatinine Ratio 8.7 (10-20) Calcium Level 8.3 mg/dl (8.5-10.1) Bedside Glucose 189 mg/dl (70-90) Allergies Coded Allergies: Daptomycin (Verified Allergy, Mild, HIVES, 07/24/16) itching Iodine (Verified Allergy, Unknown, 07/24/16) Shellfish (Verified Allergy, Unknown, 07/24/16) Sulfamethoxazole w/Trimethoprim (Verified Allergy, Unknown, RASH, 07/24/16) Codeine (Verified Adverse Reaction, Unknown, NAUSEA, 08/14/16) has tolerated morphine Medications Current Inpatient Medications Medications (Trade) Dose Ordered Sig/Duyen Route Start Time Stop Time Status Last Admin Dose Admin Acetaminophen (Tylenol Tab) 650 mg Q4H PRN PO 08/13/16 23:45 09/12/16 23:44 08/17/16 03:19 650 MG Ondansetron HCl (Zofran Inj) 4 mg Q6H PRN IV 08/13/16 23:45 09/12/16 23:44 08/18/16 07:03 4 MG Miscellaneous (Iv Fluids Completed) 1 ea PRN PRN N/A 08/14/16 01:00 08/14/17 00:59 Miscellaneous Information (Consult Glycemic Management Pharmacy) 1 ea UD PRN N/A 08/14/16 08:19 09/13/16 08:18 Allopurinol (Zyloprim Tab) 100 mg DAILY PO 08/14/16 10:00 09/13/16 09:59 08/18/16 08:54 100 MG Atorvastatin Calcium (Lipitor Tab) 40 mg DAILY PO 08/14/16 10:00 09/13/16 09:59 08/18/16 08:55 40 MG Cholecalciferol (Vitamin D Tab) 1,000 inter.unit DAILY PO 08/14/16 10:00 09/13/16 09:59 08/18/16 08:54 1,000 INTER.UNIT Salmeterol Xinafoate/ Fluticasone (Advair Diskus 500/50 Inh) 1 puff BID INH 08/14/16 10:00 09/13/16 09:59 08/18/16 08:54 1 PUFF Albuterol/ Ipratropium (Duoneb) 3 ml Q6H PRN INH 08/14/16 08:00 09/13/16 07:59 Ammonium Lactate (Lac-Hydrin) 1 appl BID EXT 08/14/16 10:00 09/13/16 09:59 08/17/16 20:59 1 APPL Metoprolol Succinate (Toprol Xl Tab) 150 mg DAILY PO 08/14/16 10:00 09/13/16 09:59 08/18/16 08:55 150 MG Miconazole Nitrate (Desenex Powder) 1 appln UD PRN EXT 08/14/16 08:00 09/13/16 07:59 Pantoprazole Sodium (Protonix Tab) 40 mg DAILY PO 08/14/16 10:00 09/13/16 09:59 08/18/16 08:55 40 MG Prednisone (PredniSONE TAB) 15 mg DAILY PO 08/14/16 10:00 09/13/16 09:59 08/18/16 08:55 15 MG Pyridoxine HCl (Vitamin B-6 Tab) 200 mg DAILY PO 08/14/16 10:00 09/13/16 09:59 08/18/16 08:55 200 MG Tiotropium [place] (Spiriva Handihaler Inhaler) 1 puff DAILY INH 08/14/16 10:00 09/13/16 09:59 08/18/16 08:54 1 PUFF Verapamil HCl (Calan-Sr Tab) 240 mg HS PO 08/14/16 21:00 09/13/16 20:59 08/17/16 20:59 240 MG Insulin Aspart (novoLOG ASPART) SLIDING SCALE ACHS SC 08/14/16 08:00 09/13/16 07:59 08/18/16 08:57 34 UNITS Calcium Acetate (Phoslo Cap) 667 mg TIDM PO 08/14/16 11:30 09/13/16 11:29 08/18/16 08:55 667 MG Acetaminophen/ Hydrocodone Bitart ([place] 5/325 Tab) 1 tab Q6H PRN PO 08/14/16 22:30 08/28/16 22:29 08/17/16 23:59 1 TAB Insulin Glargine (Lantus Vial) 77 unit BID SC 08/17/16 21:00 09/16/16 20:59 08/18/16 08:57 77 UNIT Heparin Sodium (Porcine) (Heparin Iv Bolus) 3,000 unit 0600 IV 08/18/16 06:00 08/18/16 18:00 Pregabalin (Lyrica Cap) 75 mg DAILY@1600 PO 08/18/16 16:00 09/17/16 15:59 Polyethylene (Miralax Powder Packet) 17 gm DAILY PO 08/18/16 10:00 09/12/16 09:59 Cefazolin Sodium 65 ml @ 100 mls/hr PREOP IV 08/19/16 06:00 08/19/16 18:00 Impression (1) ESRD on hemodialysis (2) Hypercapnic respiratory failure (3) CO2 narcosis (4) Obesity hypoventilation syndrome (5) Hyperkalemia (6) Morbid obesity with BMI of 50.0-59.9, adult (7) Arthritis (8) Hyperphosphatemia Hemalatha is a 60-year-old female with morbid obesity, obesity hypoventilation syndrome, recurrent hypercapnia, advanced chronic kidney disease requiring WHARF TENDER HELPER, right heart failure and failure of diuretic therapy. She has had multiple recent hospitalizations for volume overload and electrolyte abnormalities associated with diuretics. Hemalatha developed GUNNAR on CKD 3 progressing to ESRD requiring perm cath placement and initiation of hemodialysis during hospitalization in June 2016. Permcath was placed 07/25. She completed her first dialysis treatment on 07/25. She is on hemodialysis at [facility] TTS schedule. She currently dialyzes via a TDC. Vein mapping for future AVF placement was recently completed by Dr. Thapa. Recommendations ESRD: -- Patient is scheduled for AVF Thursday -- Will shift to a MWF HD schedule to accommodate surgical schedule. -- Renal diet CO2 NARCOSIS / OBESITY HYPOVENTILATION SYNDROME: -- Pulmonology recommendations reviewed. Patient may require adjustment to BiPAP prescription HYPERPHOSPHATEMIA: -- Phoslo QAC with monitoring of serum calcium (noted history of hypercalcemia) ARTHRITIS/CHRONIC PAIN: -- Lyrica dose has been reduced to 75 mg daily, take after HD on dialysis days -- Discourage aggressive use of opiates given concerns about acute and chronic CO2 retention and lethargy ANEMIA: -- Epogen held for hemoglobin >11 OTHER: -- Physical therapy consultation for strengthening. -- Patient is interested in [facility] following hospitalization
[2016-08-18] MEDS: POLYETHYLENE (MIRALAX) 17 GM PACK PO SCH (09:41)
[2016-08-18] MEDS: HYDROCODONE/ACETAMOPHEN 5/325MG TAB PO PRN (10:33)
--- NOTE | 2016-08-18 10:35 | Nephrology Progress Note ---
Nephrology Progress Note Date of Service Aug 18, 2016. Chief Complaint Follow up evaluation of this patient w/ ESRD admitted with daytime somnolence and weakness Subjective Mrs. Gaytan was seen & examined in her hospital room this morning. She slept well w/ BiPAP therapy. She reports that her daytime somnolence has improved. She voices no new medical concerns. Review of Systems Constitutional: No fever Cardiovascular: No chest pain Respiratory: No dyspnea at rest Abdomen: No pain, No nausea, No vomiting Extremities: + leg edema A complete review of systems was performed. Pertinent positives are noted above. All other systems are negative. Vital Signs Last 8 Hrs Date Time Temp Pulse Resp B/P (MAP) Pulse Ox O2 Delivery O2 Flow Rate FiO2 08/18/16 07:29 36.5 69 20 147/64 (91) 94 Last Recorded Weight Weight (Kilograms): 139.700 Physical Exam General Appearance: no apparent distress Head: normocephalic, atraumatic Eyes: PERRL, EOMI Neck: no adenopathy Respiratory/Chest: lungs clear Cardiovascular: regular rate, rhythm Abdomen/GI: normal bowel sounds, non tender, soft Extremities/Musculoskelatal: + pedal edema (trace) Neurologic/Psych: alert, oriented x 3 Family History Cancer Diabetes mellitus Gallbladder disease Heart disease Lung disease Social History Smoking Status: Former smoker Drug Use: none Marital Status: Housing Status: lives with family Occupation: unemployed Laboratory Results Past 24 Hours 08/18/16 07:09 Test 08/17/16 10:45 08/17/16 11:27 08/17/16 16:12 08/17/16 20:38 Arterial Blood pH 7.26 (7.35-7.45) Arterial Blood Partial Pressure CO2 46 mmHg (35-46) Arterial Blood Partial Pressure O2 84 mm/Hg (80-95) Arterial Blood HCO3 20 mmol/L (19-24) Arterial Blood Oxygen Saturation 94.2 % (90-95) Arterial Blood Base Excess -6.6 mEq/L (-9-1.8) Arterial Blood Gas Delivery 3L Oleg Test POS (POS) Bedside Glucose 175 mg/dl (70-90) 254 mg/dl (70-90) 232 mg/dl (70-90) Test 08/18/16 07:09 08/18/16 07:34 Anion Gap 11.0 mmol/L (3-11) Est Creatinine Clear Calc Drug Dose 10.0 ml/min Estimated GFR () 5.4 Estimated GFR (Non- 4.7 BUN/Creatinine Ratio 8.7 (10-20) Calcium Level 8.3 mg/dl (8.5-10.1) Bedside Glucose 189 mg/dl (70-90) Allergies Coded Allergies: Daptomycin (Verified Allergy, Mild, HIVES, 07/24/16) itching Iodine (Verified Allergy, Unknown, 07/24/16) Shellfish (Verified Allergy, Unknown, 07/24/16) Sulfamethoxazole w/Trimethoprim (Verified Allergy, Unknown, RASH, 07/24/16) Codeine (Verified Adverse Reaction, Unknown, NAUSEA, 08/14/16) has tolerated morphine Medications Current Inpatient Medications Medications (Trade) Dose Ordered Sig/Duyen Route Start Time Stop Time Status Last Admin Dose Admin Acetaminophen (Tylenol Tab) 650 mg Q4H PRN PO 08/13/16 23:45 09/12/16 23:44 08/17/16 03:19 650 MG Ondansetron HCl (Zofran Inj) 4 mg Q6H PRN IV 08/13/16 23:45 09/12/16 23:44 08/18/16 07:03 4 MG Miscellaneous (Iv Fluids Completed) 1 ea PRN PRN N/A 08/14/16 01:00 08/14/17 00:59 Miscellaneous Information (Consult Glycemic Management Pharmacy) 1 ea UD PRN N/A 08/14/16 08:19 09/13/16 08:18 Allopurinol (Zyloprim Tab) 100 mg DAILY PO 08/14/16 10:00 09/13/16 09:59 08/18/16 08:54 100 MG Atorvastatin Calcium (Lipitor Tab) 40 mg DAILY PO 08/14/16 10:00 09/13/16 09:59 08/18/16 08:55 40 MG Cholecalciferol (Vitamin D Tab) 1,000 inter.unit DAILY PO 08/14/16 10:00 09/13/16 09:59 08/18/16 08:54 1,000 INTER.UNIT Salmeterol Xinafoate/ Fluticasone (Advair Diskus 500/50 Inh) 1 puff BID INH 08/14/16 10:00 09/13/16 09:59 08/18/16 08:54 1 PUFF Albuterol/ Ipratropium (Duoneb) 3 ml Q6H PRN INH 08/14/16 08:00 09/13/16 07:59 Ammonium Lactate (Lac-Hydrin) 1 appl BID EXT 08/14/16 10:00 09/13/16 09:59 08/17/16 20:59 1 APPL Metoprolol Succinate (Toprol Xl Tab) 150 mg DAILY PO 08/14/16 10:00 09/13/16 09:59 08/18/16 08:55 150 MG Miconazole Nitrate (Desenex Powder) 1 appln UD PRN EXT 08/14/16 08:00 09/13/16 07:59 Pantoprazole Sodium (Protonix Tab) 40 mg DAILY PO 08/14/16 10:00 09/13/16 09:59 08/18/16 08:55 40 MG Prednisone (PredniSONE TAB) 15 mg DAILY PO 08/14/16 10:00 09/13/16 09:59 08/18/16 08:55 15 MG Pyridoxine HCl (Vitamin B-6 Tab) 200 mg DAILY PO 08/14/16 10:00 09/13/16 09:59 08/18/16 08:55 200 MG Tiotropium [place] (Spiriva Handihaler Inhaler) 1 puff DAILY INH 08/14/16 10:00 09/13/16 09:59 08/18/16 08:54 1 PUFF Verapamil HCl (Calan-Sr Tab) 240 mg HS PO 08/14/16 21:00 09/13/16 20:59 08/17/16 20:59 240 MG Insulin Aspart (novoLOG ASPART) SLIDING SCALE ACHS SC 08/14/16 08:00 09/13/16 07:59 08/18/16 08:57 34 UNITS Calcium Acetate (Phoslo Cap) 667 mg TIDM PO 08/14/16 11:30 09/13/16 11:29 08/18/16 08:55 667 MG Acetaminophen/ Hydrocodone Bitart ([place] 5/325 Tab) 1 tab Q6H PRN PO 08/14/16 22:30 08/28/16 22:29 08/17/16 23:59 1 TAB Insulin Glargine (Lantus Vial) 77 unit BID SC 08/17/16 21:00 09/16/16 20:59 08/18/16 08:57 77 UNIT Heparin Sodium (Porcine) (Heparin Iv Bolus) 3,000 unit 0600 IV 08/18/16 06:00 08/18/16 18:00 Pregabalin (Lyrica Cap) 75 mg DAILY@1600 PO 08/18/16 16:00 09/17/16 15:59 Polyethylene (Miralax Powder Packet) 17 gm DAILY PO 08/18/16 10:00 09/12/16 09:59 08/18/16 09:41 17 GM Cefazolin Sodium 65 ml @ 100 mls/hr PREOP IV 08/19/16 06:00 08/19/16 18:00 Impression (1) ESRD on hemodialysis (2) Hypercapnic respiratory failure (3) CO2 narcosis (4) Obesity hypoventilation syndrome (5) Hyperkalemia (6) Morbid obesity with BMI of 50.0-59.9, adult (7) Arthritis (8) Hyperphosphatemia Hemalatha is a 60-year-old female with morbid obesity, obesity hypoventilation syndrome, recurrent hypercapnia, advanced chronic kidney disease requiring ORE GRADER, right heart failure and failure of diuretic therapy. She has had multiple recent hospitalizations for volume overload and electrolyte abnormalities associated with diuretics. Hemalatha developed GUNNAR on CKD 3 progressing to ESRD requiring perm cath placement and initiation of hemodialysis during hospitalization in June 2016. Permcath was placed 07/25. She completed her first dialysis treatment on 07/25. She is on hemodialysis at [facility] TTS schedule. She currently dialyzes via a TDC. Vein mapping for future AVF placement was recently completed by Dr. Thapa. Recommendations ESRD: -- Patient is scheduled for AVF Thursday -- Will provide HD today to accommodate surgical schedule. Orders entered into EMR and HD RN notified -- Renal diet CO2 NARCOSIS / OBESITY HYPOVENTILATION SYNDROME: -- Pulmonology recommendations reviewed. Patient tolerating BiPAP. CO2 level on ABG is improved. HYPERPHOSPHATEMIA: -- Phoslo QAC with monitoring of serum calcium (noted history of hypercalcemia) ARTHRITIS/CHRONIC PAIN: -- Lyrica dose has been reduced to 75 mg daily, take after HD on dialysis days -- Discourage aggressive use of opiates given concerns about chronic CO2 retention ANEMIA: -- Epogen held for hemoglobin >11 OTHER: -- Physical therapy consultation for strengthening. -- Patient is interested in [facility] following hospitalization
--- NOTE | 2016-08-18 12:24 | Anesthesiology Progress Note ---
Anesthesia Progress Note Date of Service Aug 18, 2016. Progress Notes Pt. scheduled for AVF tomorrow. Advised NPO after MN. To be dialyzed today in anticipation of surgery tomorrow. Risks explained to patient, pt. consented for procedure,questions answered.
--- NOTE | 2016-08-18 12:35 | Pharmacy Progress Note ---
Glycemic: Assessment & Plan Date of Service Aug 18, 2016. Assessment & Plan The patient is currently receiving 320 units of insulin per day. BSGs ranging 188 - 254 mg/dl over the past 24hrs. * Basal insulin: Lantus 77 units every 12 hours * Correctional Insulin: Novolog Correction per scale ACHS Goal Range: Low 110 mg/dL - High 140 mg/dL Correction Factor: 6 mg/dL/unit * Prandial insulin: Per carb ratio of 1 unit per 1.5 grams CHO consumed ASSESSMENT: * BSGs still above goal but Lantus just increased last evening * Patient will be made NPO after midnight tonight for AVF creation on 08/19 * Current basal dose makes up ~1/2 of total daily dose so should be able to stay the same w/ NPO status, but I will plan to decrease AM dose by ~15% just in case. It appears we did something similar to this on her last admission when NPO. PLAN: * Decrease 08/19 AM dose of Lantus to 65 units, continue 77 units BID otherwise * Continue CF of 6 * Continue CR of 1.5 Pharmacy will continue to monitor patient daily and write orders per [facility] inpatient glycemic control protocol. Thanks. * Please note that the plan above was derived based on current level of insulin resistance and hospital stress. These recommendations are appropriate for inpatient admission only. Plan of care upon discharge will need to be reassessed to avoid potential outpatient hypo/hyperglycemia.
[2016-08-18] MEDS ORDERED: FAMOTIDINE 20 MG TAB PO ONE (17:00)
[2016-08-18] MEDS: HEPARIN SOD (PORCINE) 1000 UNIT/ML 10 ML VIAL IV SCH ×4 (17:00→18:00)
[2016-08-18] MEDS: PARICALCITOL 5 MCG/ML VIAL (ZEMPLAR) IV. ONE ×2 (17:26→18:37)
[2016-08-18] MEDS ORDERED: PREGABALIN 75 MG CAP PO SCH (18:00)
[2016-08-18] MEDS: PREGABALIN 75 MG CAP PO SCH (20:18)
[2016-08-18] MEDS: VERAPAMIL HCL 240 MG TABCR PO SCH (21:17)
[2016-08-19] MEDS: HYDROCODONE/ACETAMOPHEN 5/325MG TAB PO PRN ×2 (00:10→06:09)
[2016-08-19 00:22] VITALS: BP 107/66; PULSE 82; TEMP 36.9; O2SAT 95
[2016-08-19] MEDS ORDERED: CEFAZOLIN IV 3,000 MG in DEXTROSE 5% 50ML 50 ML IV ONE (06:00)
[2016-08-19] MEDS ORDERED: CEFAZOLIN 3000 MG/65 ML D5W IV SCH ×2 (06:00)
[2016-08-19] MEDS ORDERED: CEFAZOLIN IV 3,000 MG in DEXTROSE 5% 50ML IV SCH (06:00)
[2016-08-19 07:16] VITALS: BP 104/61; PULSE 75; TEMP 37.1; O2SAT 96
[2016-08-19] MEDS: POLYETHYLENE (MIRALAX) 17 GM PACK PO SCH (07:34)
[2016-08-19] MEDS: FLUTICASONE/SALMETEROL (ADVAIR) 500/50 INH 14 PUFF INH SCH ×2 (07:35→21:44)
[2016-08-19] MEDS: CHOLECALCIFEROL 1000 INTER.UNIT TAB PO SCH (07:35)
[2016-08-19] MEDS: CALCIUM ACETATE 667MG GELCAP PO SCH ×3 (07:35→17:44)
[2016-08-19] MEDS: ALLOPURINOL 100 MG TAB PO SCH (07:35)
[2016-08-19] MEDS: FAMOTIDINE 20 MG TAB PO SCH (07:35)
[2016-08-19] MEDS: ATORVASTATIN 40 MG TAB PO SCH (07:36)
[2016-08-19] MEDS: PANTOprazole SOD 40 MG TAB PO SCH (07:36)
[2016-08-19] MEDS: PYRIDOXINE HCL 50 MG TAB PO SCH (07:36)
[2016-08-19] MEDS: METOPROLOL SUCC 50MG EXT REL TAB PO SCH (07:36)
[2016-08-19] MEDS: INSULIN ASPART 100 UNITS/ML 3 ML PEN SC SCH ×4 (07:38→21:47)
[2016-08-19] MEDS: AMMONIUM LACTATE 12% LOTION 225 GM BTL EXT SCH ×2 (07:42→21:44)
[2016-08-19] MEDS: TIOTROPIUM BROMIDE 5 PUFF/90 MCG INH INH SCH (08:11)
[2016-08-19 08:21] LABS: BUN/CREATININE RATIO 6.8 (10-20); CALCIUM 8.1 mg/dl (8.5-10.1); CREATININE 6.5 mg/dl (0.60-1.20); MAGNESIUM 2.5 mg/dl (1.8-2.4); PHOSPHORUS 5.6 mg/dl (2.5-4.9); POTASSIUM 5.1 mmol/L (3.5-5.1)
--- NOTE | 2016-08-19 08:55 | Pharmacy Progress Note ---
Glycemic: Assessment & Plan Date of Service Aug 19, 2016. Assessment & Plan The patient is currently receiving ~300 units of insulin per day. BSGs ranging 190 - 212 mg/dl over the past 24hrs. * Basal insulin: Lantus 77 units every 12 hours - AM dose reduced today to 65 units * Correctional Insulin: Novolog Correction per scale ACHS Goal Range: Low 110 mg/dL - High 140 mg/dL Correction Factor: 6 mg/dL/unit * Prandial insulin: Per carb ratio of 1 unit per 1.5 grams CHO consumed ASSESSMENT: 08/18/16 * BSGs still above goal but Lantus just increased last evening * Patient will be made NPO after midnight tonight for AVF creation on 08/19 * Current basal dose makes up ~1/2 of total daily dose so should be able to stay the same w/ NPO status, but I will plan to decrease AM dose by ~15% just in case. It appears we did something similar to this on her last admission when NPO. 08/19/16 * Patient currently NPO for AVF creation today * BSGs remain consistently elevated, including fasting BSGs, so will plan to increase basal dose by ~10% (after procedure) * Current CR seems to be appropriate since BSGs do not significantly increase after po intake PLAN FOR INPATIENT CONTROL: * Increase Lantus to 85 units BID starting tonight * Continue CF 6 * Continue CR 1.5 Pharmacy will continue to monitor patient daily and write orders per [facility] inpatient glycemic control protocol. Thanks. * Please note that the plan above was derived based on current level of insulin resistance and hospital stress. These recommendations are appropriate for inpatient admission only. Plan of care upon discharge will need to be reassessed to avoid potential outpatient hypo/hyperglycemia.
[2016-08-19] MEDS ORDERED: INSULIN GLARGINE SC ONE (09:00)
[2016-08-19] MEDS: ONDANSETRON INJ 2 MG/ML 2 ML VIAL IV PRN ×3 (09:30→23:39)
--- NOTE | 2016-08-19 09:50 | Hospitalist Progress Note ---
Hospitalist Progress Note Date of Service Aug 19, 2016. Subjective Pt evaluation today including: conversation w/ patient, physical exam, chart review, lab review, review of inpatient medication list Patient states she is feeling well this AM, just tired. Abdominal discomfort has resolved- NPO for procedure today. Constipation resolved. Patient denies any fever, chills, sweats, lightheadedness, dizziness, vision changes, CP, palpitations, edema, SOB, wheezing, cough, abdominal pain, nausea, vomiting, diarrhea, urinary symptoms, melena, numbness/tingling, weakness, muscle/joint pain, anxiety/depression, active bleeding, or new skin discoloration/changes. Medications Current Inpatient Medications Medications (Trade) Dose Ordered Sig/Duyen Route Start Time Stop Time Status Last Admin Dose Admin Acetaminophen (Tylenol Tab) 650 mg Q4H PRN PO 08/13/16 23:45 09/12/16 23:44 08/17/16 03:19 650 MG Ondansetron HCl (Zofran Inj) 4 mg Q6H PRN IV 08/13/16 23:45 09/12/16 23:44 08/19/16 09:30 4 MG Miscellaneous (Iv Fluids Completed) 1 ea PRN PRN N/A 08/14/16 01:00 08/14/17 00:59 Miscellaneous Information (Consult Glycemic Management Pharmacy) 1 ea UD PRN N/A 08/14/16 08:19 09/13/16 08:18 Allopurinol (Zyloprim Tab) 100 mg DAILY PO 08/14/16 10:00 09/13/16 09:59 08/19/16 07:35 100 MG Atorvastatin Calcium (Lipitor Tab) 40 mg DAILY PO 08/14/16 10:00 09/13/16 09:59 08/19/16 07:36 40 MG Cholecalciferol (Vitamin D Tab) 1,000 inter.unit DAILY PO 08/14/16 10:00 09/13/16 09:59 08/19/16 07:35 1,000 INTER.UNIT Salmeterol Xinafoate/ Fluticasone (Advair Diskus 500/50 Inh) 1 puff BID INH 08/14/16 10:00 09/13/16 09:59 08/19/16 07:35 1 PUFF Albuterol/ Ipratropium (Duoneb) 3 ml Q6H PRN INH 08/14/16 08:00 09/13/16 07:59 Ammonium Lactate (Lac-Hydrin) 1 appl BID EXT 08/14/16 10:00 09/13/16 09:59 08/18/16 21:17 1 APPL Metoprolol Succinate (Toprol Xl Tab) 150 mg DAILY PO 08/14/16 10:00 09/13/16 09:59 08/19/16 07:36 150 MG Miconazole Nitrate (Desenex Powder) 1 appln UD PRN EXT 08/14/16 08:00 09/13/16 07:59 Pantoprazole Sodium (Protonix Tab) 40 mg DAILY PO 08/14/16 10:00 09/13/16 09:59 08/19/16 07:36 40 MG Prednisone (PredniSONE TAB) 15 mg DAILY PO 08/14/16 10:00 09/13/16 09:59 08/19/16 07:36 15 MG Pyridoxine HCl (Vitamin B-6 Tab) 200 mg DAILY PO 08/14/16 10:00 09/13/16 09:59 08/19/16 07:36 200 MG Tiotropium [place] (Spiriva Handihaler Inhaler) 1 puff DAILY INH 08/14/16 10:00 09/13/16 09:59 08/19/16 08:11 1 PUFF Verapamil HCl (Calan-Sr Tab) 240 mg HS PO 08/14/16 21:00 09/13/16 20:59 08/18/16 21:17 240 MG Insulin Aspart (novoLOG ASPART) SLIDING SCALE ACHS SC 08/14/16 08:00 09/13/16 07:59 08/19/16 07:38 9 UNITS Calcium Acetate (Phoslo Cap) 667 mg TIDM PO 08/14/16 11:30 09/13/16 11:29 08/19/16 07:35 667 MG Acetaminophen/ Hydrocodone Bitart ([place] 5/325 Tab) 1 tab Q6H PRN PO 08/14/16 22:30 08/28/16 22:29 08/19/16 06:09 1 TAB Pregabalin (Lyrica Cap) 75 mg DAILY@1600 PO 08/18/16 16:00 09/17/16 15:59 08/18/16 20:18 75 MG Polyethylene (Miralax Powder Packet) 17 gm DAILY PO 08/18/16 10:00 09/12/16 09:59 08/18/16 09:41 17 GM Famotidine (Pepcid Tab) 20 mg DAILY PO 08/19/16 09:00 09/18/16 08:59 08/19/16 07:35 20 MG Cefazolin Sodium 65 ml @ 100 mls/hr PREOP IV 08/19/16 06:00 08/19/16 18:00 Insulin Glargine (Lantus Vial) 85 unit BID SC 08/19/16 21:00 09/18/16 20:59 Objective Vital Signs Date Time Temp Pulse Resp B/P (MAP) Pulse Ox O2 Delivery O2 Flow Rate FiO2 08/19/16 08:30 Nasal Cannula 3.0 08/19/16 07:16 37.1 75 17 104/61 (75) 96 Nasal Cannula 2.0 08/19/16 00:22 36.9 82 20 107/66 (80) 95 Nasal Cannula 3.0 08/19/16 00:00 Room Air 08/18/16 22:08 Nasal Cannula 3.0 08/18/16 19:43 36.7 74 122/57 (78) 08/18/16 19:30 71 105/51 08/18/16 19:15 71 102/59 08/18/16 19:00 72 116/54 08/18/16 18:45 71 122/62 08/18/16 18:30 72 122/57 08/18/16 18:15 73 127/66 08/18/16 18:00 71 135/60 08/18/16 17:45 87 112/71 08/18/16 17:30 73 135/64 08/18/16 17:15 87 123/61 08/18/16 17:00 74 138/75 08/18/16 16:45 Nasal Cannula 3.0 08/18/16 16:45 75 136/78 08/18/16 16:30 74 142/75 08/18/16 16:15 75 151/67 08/18/16 16:00 76 142/72 08/18/16 15:45 74 151/67 08/18/16 15:25 36.7 77 143/69 (93) 08/18/16 14:40 36.5 76 20 133/73 (93) 97 Physical Exam General Appearance: no apparent distress, + obese, + pertinent finding (3L O2 nasal cannula ) Eyes: normal inspection, PERRL ENT: hearing grossly normal Neck: supple Respiratory/Chest: lungs clear, no respiratory distress, no accessory muscle use, + decreased breath sounds (throughout all lung rain ) Cardiovascular: regular rate, rhythm, + systolic murmur Abdomen: normal bowel sounds, non tender, + distended Extremities: + pedal edema, + swelling (trace pitting edema to bilateral lower extremities), + pertinent finding (TEDs on ) 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: alert, normal mood/affect, oriented x 3 Laboratory Results Last 24 Hours Test 08/18/16 11:06 08/18/16 17:05 08/18/16 20:11 08/19/16 06:07 Bedside Glucose 195 mg/dl 200 mg/dl 212 mg/dl 190 mg/dl Test 08/19/16 07:03 08/19/16 07:27 Sodium Level 132 mmol/L Potassium Level 5.1 mmol/L Chloride Level 101 mmol/L Carbon Dioxide Level 22 mmol/L Anion Gap 9.0 mmol/L Blood Urea Nitrogen 44 mg/dl Creatinine 6.50 mg/dl Est Creatinine Clear Calc Drug Dose 12.7 ml/min Estimated GFR () 7.3 Estimated GFR (Non- 6.3 BUN/Creatinine Ratio 6.8 Random Glucose 199 mg/dl Calcium Level 8.1 mg/dl Phosphorus Level 5.6 mg/dl Magnesium Level 2.5 mg/dl Bedside Glucose 193 mg/dl Assessment and Plan 60-year-old female with extensive PMHx presents to the ER with complaints of weakness and frequent falls due to excessive jerkiness. Acute on chronic hypercapnic respiratory failure- STABLE/obesity hypoventilation syndrome/MIKAYLA/COPD- STABLE: - Continue O2- wears 3-4L of O2 supplement at home, and BiPAP HS - DuoNebs q6 hrs PRN - Continue Advair, Spiriva, and Prednisone 15 mg daily - Pulmonary consulted, appreciate recommendations Frequent falls, likely secondary to deconditioning, weakness, jerkiness: - Head CT- Negative for any acute changes - PT/OT- recommending acute inpatient rehab- patient agreeable - Belviq 10 mg BID d/c'd w/ moderate improvement in jerkiness/jitteriness - Nephrology decreased Lyrica from 150 mg daily to 75 mg daily CKD stage 5, secondary to diabetic nephropathy/hypertensive sclerosis- requiring HD TTS: - Nephrology consulted, appreciate recommendations -- Dialysis scheduled MWF week of 08/18 to accommodate surgery schedule -- Renal diet -- Hyperphosphatemia: Phoslo QAC -- Epogen held for hgb ?11.0 - Vascular surgery consulted for fistula placement, mapping already completed- scheduled for 08/19 Mild hyperkalemia, secondary to CKD stage V- RESOLVED: - No acute EKG changes - Follow PRP Hypercalcemia- noted during previous admission: - Serum free light chain ratio is elevated. UIEP was positive for IgG [place] monoclonal protein during outpatient workup - Followed by Dr. Delong, pending further evaluation Hyponatremia- STABLE Cor pulmonale: - Last echo 07/25/15: Hyperdynamic LV systolic function. Mild concentric LV hypertrophy. LV diastolic dysfunction. Mild RV dilatation and systolic dysfunction. Mild tricuspid regurgitation. Mildly elevated RV systolic pressure. Normal central venous pressure. Ejection Fraction = >70 % - Daily weights, I's and O's Chronic venous insufficiency: - Elevate legs. TEDs - Per patient, lower extremity edema has worsened since Dr. Neri d/c'd Bumex treatment HTN- CONTROLLED: Continue Toprol-XL 150 mg and Verapamil CR 240 mg Dyslipidemia: Lipitor 40 mg daily DM- HbA1c 6.3% on 05/20/16: - Lantus 85 u BID - BSG ACHS w/ SSI - Pharmacy consulted for glycemic management Gout- ASYMPTOMATIC: Allopurinol 100 mg daily Peripheral neuropathy/chronic pain: - Pregabalin 150 mg BID decreased to 75 mg daily by nephrology- patient reports increased bilateral hand/foot pain - [place] q6 hrs PRN GI Prophylaxis: Protonix, Maalox PRN, IV Zofran PRN, Colace and/or Milk of Mag PRN, MiraLAX daily DVT Prophylaxis: Heparin Code Status: LEVEL I, FULL Dispo: Discharge when medically stable, hopefully within the next 1-2 days- likely to [facility]- social sciences department chair following
--- NOTE | 2016-08-19 10:29 | Progress Note ---
Progress Note Date of Service Aug 19, 2016. Progress Note Patient for left antecubital cephalic vein fistula creation today. I have discussed the risks options and benefits of the procedure with the patient. The patient understands the risks options and benefits and agrees to the procedure.I have examined the patient, reviewed the History & Physical and in the interval since the performance of the History & Physical I have noted the following changes of clinical significance: No changes noted
[2016-08-19] MEDS ORDERED: MIDAZOLAM HCL 1 MG/ML 2ML VIAL ONE ×2 (11:41→14:59)
[2016-08-19] MEDS ORDERED: FENTANYL CITRATE INJ 50 MCG/1 ML 2 ML VIAL ONE ×2 (11:42→15:30)
[2016-08-19] MEDS ORDERED: LIDOCAINE HCL 1% 20 ML VIAL ONE (14:16)
[2016-08-19] MEDS ORDERED: HEPARIN SOD (PORCINE) 1000 UNIT/ML 10 ML VIAL ONE (14:16)
[2016-08-19] MEDS ORDERED: BUPIVACAINE/EPINEPHRINE 0.5% MPF 1:200,000 30 ML VIAL ONE (14:23)
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
--- NOTE | 2016-08-19 15:54 | [facility] Post Operative Brief Note ---
Immediate Operative Summary Operative Date Aug 19, 2016. Pre-Operative Diagnosis End stage renal disease Post-Operative Diagnosis End stage renal disease Procedure(s) Performed Creation of left antecubital cephalic vein AV fistula Surgeon Dr. Thapa Manager Client Service Surgeon(s) Betzy Taylor PA-C, Shirlene Obrien MD Estimated Blood Loss 10ml Findings good thrill Specimens None Anesthesia MAC Complication(s) None Disposition Recovery Room / PACU
[2016-08-19 16:00] VITALS: O2SAT 93
[2016-08-19] MEDS ORDERED: BUPIVACAINE/EPINEPHRINE 0.5% MPF 1:200,000 30 ML VIAL INJ ONE (16:03)
--- NOTE | 2016-08-19 16:32 | Anesthesiology Progress Note ---
Anesthesia Post Op Note Date & Time Aug 19, 2016 at 16:32 Vital Signs Pain Intensity: 0 Vital Signs Past 12 Hours Date Time Temp Pulse Resp B/P (MAP) Pulse Ox O2 Delivery O2 Flow Rate FiO2 08/19/16 16:13 37.2 78 20 133/58 94 Nasal Cannula 3 08/19/16 08:30 Nasal Cannula 3.0 08/19/16 07:16 37.1 75 17 104/61 (75) 96 Nasal Cannula 2.0 Notes Mental Status: alert / awake / arousable, participated in evaluation Pt Amnestic to Procedure: Yes Nausea / Vomiting: adequately controlled Pain: adequately controlled Airway Patency, RR, SpO2: stable & adequate BP & HR: stable & adequate Hydration State: stable & adequate Anesthetic Complications: no major complications apparent
[2016-08-19] MEDS ORDERED: FENTANYL CITRATE INJ 50 MCG/1 ML 2 ML VIAL IV PRN (16:45)
[2016-08-19] MEDS ORDERED: ONDANSETRON INJ 2 MG/ML 2 ML VIAL IV PRN (16:45)
[2016-08-19] MEDS ORDERED: ATROPINE SULFATE 0.1 MG/ML 5ML SYR IV PRN (16:45)
[2016-08-19] MEDS ORDERED: EpHEDrine SULFATE INJ 50 MG/ML AMP IV PRN (16:45)
[2016-08-19] MEDS: PREGABALIN 75 MG CAP PO SCH (17:43)
--- NOTE | 2016-08-19 17:58 | OPERATIVE REPORT ---
DATE OF OPERATION: 08/19/2016 PREOPERATIVE DIAGNOSIS: End-stage renal disease. POSTOPERATIVE DIAGNOSIS: End-stage renal disease. PROCEDURE: Creation of left antecubital cephalic vein AV fistula. SURGEON: Dr. Jens Thapa. ASSISTANTS: Dr. Shirlene Obrien and [employer] ESTIMATED BLOOD LOSS: 10 mL. CONDITION: Stable. COMPLICATIONS: None. ANESTHESIA: Monitored anesthesia care plus local. INDICATIONS: Mrs. Hemalatha Gaytan is a 60-year-old woman with multiple medical problems including end-stage renal disease, on hemodialysis through a PermCath. She underwent vein mapping which showed an appropriately sized left antecubital vein. For this reason, she was recommended to undergo creation of a left arm AV fistula. The risks, benefits and alternatives were discussed with the patient and she consented to the procedure. DESCRIPTION OF PROCEDURE: The patient was taken to the operating room and placed in the supine position. Her left arm was prepped and draped in the usual sterile fashion. Sedation was administered by our anesthesia colleague. Safety timeout was performed and the patient, procedure, and sidedness were correctly identified. Local anesthesia was used to anesthetize the skin overlying the crease of the elbow. Horizontal incision was made one fingerbreadth below the crease of the elbow. Electrocautery was used to divide subcutaneous tissues. The antecubital vein was easily identified and large in caliber. We then turned our attention to the brachial artery. This was dissected circumferentially. The antecubital vein was then divided at its side branches and the forearm tied off. Angled [place]akey vascular clamps were used to control the brachial artery proximally and distally. An 11 blade scalpel was used to make a longitudinal arteriotomy. This was extended with Potter scissors. The antecubital vein was anastomosed to the brachial artery in an end-to-side fashion with 6-0 running Prolene. Prior to completion of the anastomosis, both the brachial artery proximally and distally was backbled with good backbleeding. There was good venous return from the antecubital vein. Following completion of our anastomosis, the anastomosis appeared hemostatic. There was a small side branch on the antecubital vein that required placement of a 6-0 Prolene suture. The wound was irrigated and appeared to be hemostatic. Subcutaneous tissues were reapproximated with 3-0 Vicryl in a running fashion. Skin was reapproximated with 4-0 Vicryl in a running subcuticular fashion. Dermabond skin glue was applied over the skin incision. Local anesthesia was injected above and below the incision for additional analgesia. The patient was awakened from her sedation. She appeared to have tolerated the procedure well and there were no immediate complications. She had a palpable thrill in her fistula at the close of the case and a palpable left radial artery pulse. She was transferred to PACU in stable condition. Dr. Jens Thapa was present for the entire procedure. I, Dr. Thapa was present and scrubed for the entire procedure. I attest to the content of the Intraoperative Record and any orders documented therein. Any exceptions are noted below. MEGHANA
--- NOTE | 2016-08-19 18:32 | Pulmonology Progress Note ---
Pulmonary Progress Note Date of Service Aug 19, 2016. Attending Dr. Ndiaye Subjective Patient seen earlier, awaiting AV fistula surgery Compliant with Trilogy Up in chair, comfortable Objective General: Morbidly obese Lungs: distant breath sounds CVS: S1S2 distant Abd: Obese, non-tender Ext: B/l LE edema Assessment & Plan Patient with morbid obesity, awaiting AV fistula creation, on HD for few weeks Acute on chronic respiratory failure OHS MIKAYLA COPD Plan: Continue nocturnal Trilogy Mental status is good. Her pCO2 has improved on the last ABG, acidosis was mainly metabolic in nature. Bronchodilators Advair Prednisone taper Spiriva Continue HD as scheduled Data Medications: Current Inpatient Medications Medications (Trade) Dose Ordered Sig/Duyen Route Start Time Stop Time Status Last Admin Dose Admin Acetaminophen (Tylenol Tab) 650 mg Q4H PRN PO 08/13/16 23:45 09/12/16 23:44 08/17/16 03:19 650 MG Ondansetron HCl (Zofran Inj) 4 mg Q6H PRN IV 08/13/16 23:45 09/12/16 23:44 08/19/16 17:40 4 MG Miscellaneous (Iv Fluids Completed) 1 ea PRN PRN N/A 08/14/16 01:00 08/14/17 00:59 Miscellaneous Information (Consult Glycemic Management Pharmacy) 1 ea UD PRN N/A 08/14/16 08:19 09/13/16 08:18 Allopurinol (Zyloprim Tab) 100 mg DAILY PO 08/14/16 10:00 09/13/16 09:59 08/19/16 07:35 100 MG Atorvastatin Calcium (Lipitor Tab) 40 mg DAILY PO 08/14/16 10:00 09/13/16 09:59 08/19/16 07:36 40 MG Cholecalciferol (Vitamin D Tab) 1,000 inter.unit DAILY PO 08/14/16 10:00 09/13/16 09:59 08/19/16 07:35 1,000 INTER.UNIT Salmeterol Xinafoate/ Fluticasone (Advair Diskus 500/50 Inh) 1 puff BID INH 08/14/16 10:00 09/13/16 09:59 08/19/16 07:35 1 PUFF Albuterol/ Ipratropium (Duoneb) 3 ml Q6H PRN INH 08/14/16 08:00 09/13/16 07:59 Ammonium Lactate (Lac-Hydrin) 1 appl BID EXT 08/14/16 10:00 09/13/16 09:59 08/18/16 21:17 1 APPL Metoprolol Succinate (Toprol Xl Tab) 150 mg DAILY PO 08/14/16 10:00 09/13/16 09:59 08/19/16 07:36 150 MG Miconazole Nitrate (Desenex Powder) 1 appln UD PRN EXT 08/14/16 08:00 09/13/16 07:59 Pantoprazole Sodium (Protonix Tab) 40 mg DAILY PO 08/14/16 10:00 09/13/16 09:59 08/19/16 07:36 40 MG Prednisone (PredniSONE TAB) 15 mg DAILY PO 08/14/16 10:00 09/13/16 09:59 08/19/16 07:36 15 MG Pyridoxine HCl (Vitamin B-6 Tab) 200 mg DAILY PO 08/14/16 10:00 09/13/16 09:59 08/19/16 07:36 200 MG Tiotropium [place] (Spiriva Handihaler Inhaler) 1 puff DAILY INH 08/14/16 10:00 09/13/16 09:59 08/19/16 08:11 1 PUFF Verapamil HCl (Calan-Sr Tab) 240 mg HS PO 08/14/16 21:00 09/13/16 20:59 08/18/16 21:17 240 MG Insulin Aspart (novoLOG ASPART) SLIDING SCALE ACHS SC 08/14/16 08:00 09/13/16 07:59 08/19/16 17:50 48 UNITS Calcium Acetate (Phoslo Cap) 667 mg TIDM PO 08/14/16 11:30 09/13/16 11:29 08/19/16 17:44 667 MG Acetaminophen/ Hydrocodone Bitart ([place] 5/325 Tab) 1 tab Q6H PRN PO 08/14/16 22:30 08/28/16 22:29 08/19/16 06:09 1 TAB Pregabalin (Lyrica Cap) 75 mg DAILY@1600 PO 08/18/16 16:00 09/17/16 15:59 6/20/17 17:43 75 MG Polyethylene (Miralax Powder Packet) 17 gm DAILY PO 08/18/16 10:00 09/12/16 09:59 08/18/16 09:41 17 GM Famotidine (Pepcid Tab) 20 mg DAILY PO 08/19/16 09:00 09/18/16 08:59 08/19/16 07:35 20 MG Insulin Glargine (Lantus Vial) 85 unit BID SC 08/19/16 21:00 09/18/16 20:59 Heparin Sodium (Porcine) (Heparin Iv Bolus) 2,000 unit ONE IV 08/20/16 06:00 08/20/16 18:00 Fentanyl Citrate (Fentanyl Inj) 25 mcg Q5M PRN IV 08/19/16 16:45 08/19/16 22:00 Ondansetron HCl (Zofran Inj) 4 mg ONE PRN IV 08/19/16 16:45 08/19/16 22:00 Ephedrine Sulfate (EpHEDrine SULFATE INJ) 5 mg Q5M PRN IV 08/19/16 16:45 08/19/16 22:00 Atropine Sulfate (Atropine Sulfate 0.1MG/Ml Inj) 0.5 mg Q1M PRN IV 08/19/16 16:45 08/19/16 22:00 I & O: 24-Hour Column 08/20/16 08:00 Intake Total 250 ml Output Total 85 ml Balance 165 ml Vital Signs: Date Time Temp Pulse Resp B/P (MAP) Pulse Ox O2 Delivery O2 Flow Rate FiO2 08/19/16 16:40 73 23 133/55 98 Nasal Cannula 3 08/19/16 16:30 37.0 74 20 128/59 98 Nasal Cannula 3 08/19/16 16:20 75 15 123/58 98 Nasal Cannula 3 08/19/16 16:13 37.2 78 20 133/58 94 Nasal Cannula 3 08/19/16 08:30 Nasal Cannula 3.0 08/19/16 07:16 37.1 75 17 104/61 (75) 96 Nasal Cannula 2.0 08/19/16 00:22 36.9 82 20 107/66 (80) 95 Nasal Cannula 3.0 08/19/16 00:00 Room Air 08/18/16 22:08 Nasal Cannula 3.0 08/18/16 19:43 36.7 74 122/57 (78) 08/18/16 19:30 71 105/51 08/18/16 19:15 71 102/59 08/18/16 19:00 72 116/54 08/18/16 18:45 71 122/62 08/18/16 18:30 72 122/57 Laboratory Results: Last 24 Hours Test 08/18/16 20:11 08/19/16 06:07 08/19/16 07:03 08/19/16 07:27 Bedside Glucose 212 mg/dl 190 mg/dl 193 mg/dl Sodium Level 132 mmol/L Potassium Level 5.1 mmol/L Chloride Level 101 mmol/L Carbon Dioxide Level 22 mmol/L Anion Gap 9.0 mmol/L Blood Urea Nitrogen 44 mg/dl Creatinine 6.50 mg/dl Est Creatinine Clear Calc Drug Dose 12.7 ml/min Estimated GFR () 7.3 Estimated GFR (Non- 6.3 BUN/Creatinine Ratio 6.8 Random Glucose 199 mg/dl Calcium Level 8.1 mg/dl Phosphorus Level 5.6 mg/dl Magnesium Level 2.5 mg/dl Test 08/19/16 11:34 08/19/16 14:14 08/19/16 16:16 08/19/16 17:06 Bedside Glucose 162 mg/dl 199 mg/dl 211 mg/dl 212 mg/dl
[2016-08-19] MEDS: VERAPAMIL HCL 240 MG TABCR PO SCH (21:45)
[2016-08-19] MEDS: INSULIN GLARGINE SC SCH (21:48)
[2016-08-19 21:50] VITALS: BP 123/70; PULSE 77
[2016-08-20] VITALS (20 sets, daily range): BP systolic 83–157; BP diastolic 24–84; PULSE 68–94; TEMP 36.4–36.9; O2SAT 92–95
[2016-08-20] MEDS ORDERED: PROMETHAZINE HCL INJ 12.5 MG in SODIUM CHLORIDE 0.9% 50ML 50 ML IV STA (01:39)
[2016-08-20] MEDS ORDERED: HEPARIN SOD (PORCINE) 1000 UNIT/ML 10 ML VIAL IV SCH (06:00)
[2016-08-20 06:07] LABS: MEAN CELL VOLUME 98.9 fL (80-100); MEAN CORPUSCULAR HEMOGLOBIN 30.5 pg (25-34); MEAN CORPUSCULAR HGB CONC 30.8 g/dl (32-36); MEAN PLATELET VOLUME 9.7 fL (7.4-10.4); PLATELET COUNT 204 K/uL (130-400); RED BLOOD COUNT 3.74 M/uL (4.2-5.4); WHITE BLOOD COUNT 12.65 K/uL (4.8-10.8)
[2016-08-20 06:52] LABS: CALCIUM 8.1 mg/dl (8.5-10.1); CREATININE 8.4 mg/dl (0.60-1.20); MAGNESIUM 2.6 mg/dl (1.8-2.4); POTASSIUM 5.9 mmol/L (3.5-5.1)
[2016-08-20] MEDS: POLYETHYLENE (MIRALAX) 17 GM PACK PO SCH (07:40)
[2016-08-20] MEDS: TIOTROPIUM BROMIDE 5 PUFF/90 MCG INH INH SCH (07:41)
[2016-08-20] MEDS: AMMONIUM LACTATE 12% LOTION 225 GM BTL EXT SCH ×2 (07:41→20:46)
[2016-08-20] MEDS: FLUTICASONE/SALMETEROL (ADVAIR) 500/50 INH 14 PUFF INH SCH ×2 (07:41→20:46)
[2016-08-20] MEDS: FAMOTIDINE 20 MG TAB PO SCH (07:42)
[2016-08-20] MEDS: ALLOPURINOL 100 MG TAB PO SCH (07:42)
[2016-08-20] MEDS: PYRIDOXINE HCL 50 MG TAB PO SCH (07:42)
[2016-08-20] MEDS: PANTOprazole SOD 40 MG TAB PO SCH (07:42)
[2016-08-20] MEDS: METOPROLOL SUCC 50MG EXT REL TAB PO SCH (07:42)
[2016-08-20] MEDS: CHOLECALCIFEROL 1000 INTER.UNIT TAB PO SCH (07:42)
[2016-08-20] MEDS: CALCIUM ACETATE 667MG GELCAP PO SCH ×3 (07:43→16:42)
[2016-08-20] MEDS: ATORVASTATIN 40 MG TAB PO SCH (07:43)
[2016-08-20] MEDS: INSULIN ASPART 100 UNITS/ML 3 ML PEN SC SCH ×4 (07:45→20:53)
[2016-08-20] MEDS: INSULIN GLARGINE SC SCH ×2 (07:46→20:54)
--- NOTE | 2016-08-20 11:04 | Hospitalist Progress Note ---
Hospitalist Progress Note Date of Service Aug 20, 2016. Subjective Pt evaluation today including: conversation w/ patient, physical exam, chart review, lab review, review of studies, review of inpatient medication list Saw patient during dialysis today. States she is not feeling well this AM. +upset stomach/nausea- attributes to not eating. Denies worsening SOB- currently at baseline. Patient denies any fever, chills, sweats, lightheadedness, dizziness, vision changes, CP, palpitations, edema, SOB, wheezing, cough, abdominal pain, vomiting , diarrhea, urinary symptoms, melena, numbness/tingling, weakness, muscle/joint pain, anxiety/depression, active bleeding, or new skin discoloration/changes. Medications Current Inpatient Medications Medications (Trade) Dose Ordered Sig/Duyen Route Start Time Stop Time Status Last Admin Dose Admin Acetaminophen (Tylenol Tab) 650 mg Q4H PRN PO 08/13/16 23:45 09/12/16 23:44 08/17/16 03:19 650 MG Ondansetron HCl (Zofran Inj) 4 mg Q6H PRN IV 08/13/16 23:45 09/12/16 23:44 08/19/16 23:39 4 MG Miscellaneous (Iv Fluids Completed) 1 ea PRN PRN N/A 08/14/16 01:00 08/14/17 00:59 Miscellaneous Information (Consult Glycemic Management Pharmacy) 1 ea UD PRN N/A 08/14/16 08:19 09/13/16 08:18 Allopurinol (Zyloprim Tab) 100 mg DAILY PO 08/14/16 10:00 09/13/16 09:59 08/20/16 07:42 100 MG Atorvastatin Calcium (Lipitor Tab) 40 mg DAILY PO 08/14/16 10:00 09/13/16 09:59 08/20/16 07:43 40 MG Cholecalciferol (Vitamin D Tab) 1,000 inter.unit DAILY PO 08/14/16 10:00 09/13/16 09:59 08/20/16 07:42 1,000 INTER.UNIT Salmeterol Xinafoate/ Fluticasone (Advair Diskus 500/50 Inh) 1 puff BID INH 08/14/16 10:00 09/13/16 09:59 08/20/16 07:41 1 PUFF Albuterol/ Ipratropium (Duoneb) 3 ml Q6H PRN INH 08/14/16 08:00 09/13/16 07:59 Ammonium Lactate (Lac-Hydrin) 1 appl BID EXT 08/14/16 10:00 09/13/16 09:59 08/20/16 07:41 1 APPL Metoprolol Succinate (Toprol Xl Tab) 150 mg DAILY PO 08/14/16 10:00 09/13/16 09:59 08/20/16 07:42 150 MG Miconazole Nitrate (Desenex Powder) 1 appln UD PRN EXT 08/14/16 08:00 09/13/16 07:59 Pantoprazole Sodium (Protonix Tab) 40 mg DAILY PO 08/14/16 10:00 09/13/16 09:59 08/20/16 07:42 40 MG Prednisone (PredniSONE TAB) 15 mg DAILY PO 08/14/16 10:00 09/13/16 09:59 08/20/16 07:43 15 MG Pyridoxine HCl (Vitamin B-6 Tab) 200 mg DAILY PO 08/14/16 10:00 09/13/16 09:59 08/20/16 07:42 200 MG Tiotropium [place] (Spiriva Handihaler Inhaler) 1 puff DAILY INH 08/14/16 10:00 09/13/16 09:59 08/20/16 07:41 1 PUFF Verapamil HCl (Calan-Sr Tab) 240 mg HS PO 08/14/16 21:00 09/13/16 20:59 08/19/16 21:45 240 MG Insulin Aspart (novoLOG ASPART) SLIDING SCALE ACHS SC 08/14/16 08:00 09/13/16 07:59 08/20/16 07:45 9 UNITS Calcium Acetate (Phoslo Cap) 667 mg TIDM PO 08/14/16 11:30 09/13/16 11:29 08/20/16 07:43 667 MG Acetaminophen/ Hydrocodone Bitart ([place] 5/325 Tab) 1 tab Q6H PRN PO 08/14/16 22:30 08/28/16 22:29 08/19/16 06:09 1 TAB Pregabalin (Lyrica Cap) 75 mg DAILY@1600 PO 08/18/16 16:00 09/17/16 15:59 08/19/16 17:43 75 MG Polyethylene (Miralax Powder Packet) 17 gm DAILY PO 08/18/16 10:00 09/12/16 09:59 08/20/16 07:40 17 GM Famotidine (Pepcid Tab) 20 mg DAILY PO 08/19/16 09:00 09/18/16 08:59 08/20/16 07:42 20 MG Insulin Glargine (Lantus Vial) 85 unit BID SC 08/19/16 21:00 09/18/16 20:59 08/20/16 07:46 85 UNIT Heparin Sodium (Porcine) (Heparin Iv Bolus) 2,000 unit ONE IV 08/20/16 06:00 08/20/16 18:00 Objective Vital Signs Date Time Temp Pulse Resp B/P (MAP) Pulse Ox O2 Delivery O2 Flow Rate FiO2 08/20/16 10:15 71 140/72 08/20/16 10:00 69 138/48 08/20/16 09:45 71 144/69 08/20/16 09:31 36.6 71 144/71 (95) 08/20/16 08:30 Nasal Cannula 3.0 08/20/16 07:12 36.7 80 20 157/84 (108) 92 Nasal Cannula 3.0 08/20/16 00:30 36.9 72 20 127/72 (90) 94 Nasal Cannula 3.0 08/20/16 00:00 Nasal Cannula 3.0 08/19/16 21:50 77 123/70 (87) 08/19/16 16:40 73 23 133/55 98 Nasal Cannula 3 08/19/16 16:30 37.0 74 20 128/59 98 Nasal Cannula 3 08/19/16 16:20 75 15 123/58 98 Nasal Cannula 3 08/19/16 16:13 37.2 78 20 133/58 94 Nasal Cannula 3 08/19/16 16:00 93 Nasal Cannula 3.0 Physical Exam General Appearance: no apparent distress, + obese, + pertinent finding (3L O2 nasal cannula ) Eyes: normal inspection, PERRL ENT: hearing grossly normal Neck: supple Respiratory/Chest: lungs clear, no respiratory distress, no accessory muscle use, + decreased breath sounds (throughtout all lung rain ) Cardiovascular: regular rate, rhythm, + systolic murmur Abdomen: normal bowel sounds, non tender, + distended Extremities: + pedal edema, + swelling, + pertinent finding (TEDs on ) 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: alert, normal mood/affect, oriented x 3 Skin: normal color, warm/dry, no rash Laboratory Results Last 24 Hours Test 08/19/16 11:34 08/19/16 14:14 08/19/16 16:16 08/19/16 17:06 Bedside Glucose 162 mg/dl 199 mg/dl 211 mg/dl 212 mg/dl Test 08/19/16 20:47 08/20/16 05:33 08/20/16 07:29 Bedside Glucose 181 mg/dl 189 mg/dl White Blood Count 12.65 K/uL Red Blood Count 3.74 M/uL Hemoglobin 11.4 g/dL Hematocrit 37.0 % Mean Corpuscular Volume 98.9 fL Mean Corpuscular Hemoglobin 30.5 pg Mean Corpuscular Hemoglobin Concent 30.8 g/dl RDW Standard Deviation 75.2 fL RDW Coefficient of Variation 21.1 % Platelet Count 204 K/uL Mean Platelet Volume 9.7 fL Nucleated RBC Absolute Count (auto) 0.22 K/uL Nucleated Red Blood Cells % 1.8 % Sodium Level 133 mmol/L Potassium Level 5.9 mmol/L Chloride Level 101 mmol/L Carbon Dioxide Level 20 mmol/L Anion Gap 12.0 mmol/L Blood Urea Nitrogen 67 mg/dl Creatinine 8.40 mg/dl Est Creatinine Clear Calc Drug Dose 9.8 ml/min Estimated GFR () 5.3 Estimated GFR (Non- 4.6 BUN/Creatinine Ratio 8.0 Random Glucose 173 mg/dl Calcium Level 8.1 mg/dl Magnesium Level 2.6 mg/dl Assessment and Plan 60-year-old female with extensive PMHx presents to the ER with complaints of weakness and frequent falls due to excessive jerkiness. Acute on chronic hypercapnic respiratory failure- STABLE/obesity hypoventilation syndrome/MIKAYLA/COPD- STABLE: - Continue O2- wears 3-4L of O2 supplement at home, and BiPAP HS - DuoNebs q6 hrs PRN - Continue Advair, Spiriva, and Prednisone 15 mg daily - Pulmonary consulted, appreciate recommendations Frequent falls, likely secondary to deconditioning, weakness, jerkiness: - Head CT- Negative for any acute changes - PT/OT- recommending acute inpatient rehab- patient agreeable - Belviq 10 mg BID d/c'd w/ moderate improvement in jerkiness/jitteriness - Nephrology decreased Lyrica from 150 mg daily to 75 mg daily CKD stage 5, secondary to diabetic nephropathy/hypertensive sclerosis- requiring HD TTS: - Nephrology consulted, appreciate recommendations -- Dialysis scheduled MWF week of 08/18 to accommodate surgery schedule -- Renal diet -- Hyperphosphatemia: Phoslo QAC -- Epogen held for hgb ?11.0 - Vascular surgery consulted- left antecubital cephalic vein AV fistula on 08/19 ; PermCath removal on 08/20 Leukocytosis, likely secondary to postop response: - No s/s of infection- continue to monitor - Follow CBC Hyperkalemia, secondary to CKD stage V: - No acute EKG changes - Follow PRP after dialysis on 08/20 Hypercalcemia- noted during previous admission: - Serum free light chain ratio is elevated. UIEP was positive for IgG [place] monoclonal protein during outpatient workup - Followed by Dr. Delong, pending further evaluation Hyponatremia- STABLE Cor pulmonale: - Last echo 07/25/15: Hyperdynamic LV systolic function. Mild concentric LV hypertrophy. LV diastolic dysfunction. Mild RV dilatation and systolic dysfunction. Mild tricuspid regurgitation. Mildly elevated RV systolic pressure. Normal central venous pressure. Ejection Fraction = >70 % - Daily weights, I's and O's Chronic venous insufficiency: - Elevate legs. TEDs - Per patient, lower extremity edema has worsened since Dr. Neri d/c'd Bumex treatment HTN- CONTROLLED: Continue Toprol-XL 150 mg and Verapamil CR 240 mg Dyslipidemia: Lipitor 40 mg daily DM- HbA1c 6.3% on 05/20/16: - Lantus 85 u BID - BSG ACHS w/ SSI - Pharmacy consulted for glycemic management Gout- ASYMPTOMATIC: Allopurinol 100 mg daily Peripheral neuropathy/chronic pain: - Pregabalin 150 mg BID decreased to 75 mg daily by nephrology- patient reports increased bilateral hand/foot pain - Schlater q6 hrs PRN GI Prophylaxis: Protonix, Maalox PRN, IV Zofran PRN, Colace and/or Milk of Mag PRN, MiraLAX daily DVT Prophylaxis: Heparin Code Status: LEVEL I, FULL Dispo: Patient is medically stable for discharge pending placement approval- likely [facility]- delinquency prevention social worker following and updated
[2016-08-20] MEDS: ONDANSETRON INJ 2 MG/ML 2 ML VIAL IV PRN ×2 (11:13→18:26)
--- NOTE | 2016-08-20 11:52 | Progress Note ---
Progress Note Date of Service Aug 20, 2016.
[2016-08-20] MEDS: HYDROCODONE/ACETAMOPHEN 5/325MG TAB PO PRN (12:52)
--- NOTE | 2016-08-20 13:26 | Dialysis Progress Note ---
Hemodialysis Note Date of Service Aug 20, 2016. Chief Complaint ESRD Subjective Hemalatha was seen and evaluated during hemodialysis this morning. Unfortunately, she does not feel well. Hemalatha reports nausea and decreased appetite. She is tolerating dialysis well. Blood pressure is appropriate. Qb at goal. Review of Systems A complete review of systems was performed. Pertinent positives are noted above. All other systems are negative. Vital Signs Last 8 Hrs Date Time Temp Pulse Resp B/P (MAP) Pulse Ox O2 Delivery O2 Flow Rate FiO2 08/20/16 12:15 68 111/59 08/20/16 12:00 75 122/66 08/20/16 11:45 74 93/67 08/20/16 11:30 83 115/78 08/20/16 11:15 94 116/54 08/20/16 11:00 73 95/50 08/20/16 10:45 74 124/67 08/20/16 10:30 74 126/67 08/20/16 10:15 71 140/72 08/20/16 10:00 69 138/48 08/20/16 09:45 71 144/69 08/20/16 09:31 36.6 71 144/71 (95) 08/20/16 08:30 Nasal Cannula 3.0 08/20/16 07:12 36.7 80 20 157/84 (108) 92 Nasal Cannula 3.0 Last Recorded Weight Weight (Kilograms): 137.100 Physical Exam General Appearance: no apparent distress, + obese Head: normocephalic, atraumatic Eyes: normal inspection, sclerae normal ENT: normal ENT inspection, pharynx normal Neck: supple, no JVD Respiratory/Chest: no respiratory distress, no accessory muscle use, + decreased breath sounds Cardiovascular: regular rate, rhythm Abdomen/GI: non tender, soft Extremities/Musculoskelatal: + pedal edema (trace), + pertinent finding (LUE AVF with good bruit but difficult to appreciate thrill, incision healing appropriately) Neurologic/Psych: alert, oriented x 3 Social History Smoking Status: Former smoker Drug Use: none Marital Status: Housing Status: lives with family Occupation: unemployed Laboratory Results Past 24 Hours 08/20/16 05:33 08/20/16 05:33 Test 08/19/16 14:14 08/19/16 16:16 08/19/16 17:06 08/19/16 20:47 Bedside Glucose 199 mg/dl (70-90) 211 mg/dl (70-90) 212 mg/dl (70-90) 181 mg/dl (70-90) Test 08/20/16 05:33 08/20/16 07:29 08/20/16 11:19 Red Blood Count 3.74 M/uL (4.2-5.4) Mean Corpuscular Volume 98.9 fL (80-100) Mean Corpuscular Hemoglobin 30.5 pg (25-34) Mean Corpuscular Hemoglobin Concent 30.8 g/dl (32-36) RDW Standard Deviation 75.2 fL (36.4-46.3) RDW Coefficient of Variation 21.1 % (11.5-14.5) Mean Platelet Volume 9.7 fL (7.4-10.4) Nucleated RBC Absolute Count (auto) 0.22 K/uL (0-0) Nucleated Red Blood Cells % 1.8 % Anion Gap 12.0 mmol/L (3-11) Est Creatinine Clear Calc Drug Dose 9.8 ml/min Estimated GFR () 5.3 Estimated GFR (Non- 4.6 BUN/Creatinine Ratio 8.0 (10-20) Calcium Level 8.1 mg/dl (8.5-10.1) Magnesium Level 2.6 mg/dl (1.8-2.4) Bedside Glucose 189 mg/dl (70-90) 156 mg/dl (70-90) Allergies Coded Allergies: Daptomycin (Verified Allergy, Mild, HIVES, 07/24/16) itching Iodine (Verified Allergy, Unknown, 07/24/16) Shellfish (Verified Allergy, Unknown, 07/24/16) Sulfamethoxazole w/Trimethoprim (Verified Allergy, Unknown, RASH, 07/24/16) Codeine (Verified Adverse Reaction, Unknown, NAUSEA, 08/14/16) has tolerated morphine Medications Current Inpatient Medications Medications (Trade) Dose Ordered Sig/Duyen Route Start Time Stop Time Status Last Admin Dose Admin Acetaminophen (Tylenol Tab) 650 mg Q4H PRN PO 08/13/16 23:45 09/12/16 23:44 08/17/16 03:19 650 MG Ondansetron HCl (Zofran Inj) 4 mg Q6H PRN IV 08/13/16 23:45 09/12/16 23:44 08/20/16 11:13 4 MG Miscellaneous (Iv Fluids Completed) 1 ea PRN PRN N/A 08/14/16 01:00 08/14/17 00:59 Miscellaneous Information (Consult Glycemic Management Pharmacy) 1 ea UD PRN N/A 08/14/16 08:19 09/13/16 08:18 Allopurinol (Zyloprim Tab) 100 mg DAILY PO 08/14/16 10:00 09/13/16 09:59 08/20/16 07:42 100 MG Atorvastatin Calcium (Lipitor Tab) 40 mg DAILY PO 08/14/16 10:00 09/13/16 09:59 08/20/16 07:43 40 MG Cholecalciferol (Vitamin D Tab) 1,000 inter.unit DAILY PO 08/14/16 10:00 09/13/16 09:59 08/20/16 07:42 1,000 INTER.UNIT Salmeterol Xinafoate/ Fluticasone (Advair Diskus 500/50 Inh) 1 puff BID INH 08/14/16 10:00 09/13/16 09:59 08/20/16 07:41 1 PUFF Albuterol/ Ipratropium (Duoneb) 3 ml Q6H PRN INH 08/14/16 08:00 09/13/16 07:59 Ammonium Lactate (Lac-Hydrin) 1 appl BID EXT 08/14/16 10:00 09/13/16 09:59 08/20/16 07:41 1 APPL Metoprolol Succinate (Toprol Xl Tab) 150 mg DAILY PO 08/14/16 10:00 09/13/16 09:59 08/20/16 07:42 150 MG Miconazole Nitrate (Desenex Powder) 1 appln UD PRN EXT 08/14/16 08:00 09/13/16 07:59 Pantoprazole Sodium (Protonix Tab) 40 mg DAILY PO 08/14/16 10:00 09/13/16 09:59 08/20/16 07:42 40 MG Prednisone (PredniSONE TAB) 15 mg DAILY PO 08/14/16 10:00 09/13/16 09:59 08/20/16 07:43 15 MG Pyridoxine HCl (Vitamin B-6 Tab) 200 mg DAILY PO 08/14/16 10:00 09/13/16 09:59 08/20/16 07:42 200 MG Tiotropium [place] (Spiriva Handihaler Inhaler) 1 puff DAILY INH 08/14/16 10:00 09/13/16 09:59 08/20/16 07:41 1 PUFF Verapamil HCl (Calan-Sr Tab) 240 mg HS PO 08/14/16 21:00 09/13/16 20:59 08/19/16 21:45 240 MG Insulin Aspart (novoLOG ASPART) SLIDING SCALE ACHS SC 08/14/16 08:00 09/13/16 07:59 08/20/16 07:45 9 UNITS Calcium Acetate (Phoslo Cap) 667 mg TIDM PO 08/14/16 11:30 09/13/16 11:29 08/20/16 12:52 667 MG Acetaminophen/ Hydrocodone Bitart ([place] 5/325 Tab) 1 tab Q6H PRN PO 08/14/16 22:30 08/28/16 22:29 08/20/16 12:52 1 TAB Pregabalin (Lyrica Cap) 75 mg DAILY@1600 PO 08/18/16 16:00 09/17/16 15:59 08/19/16 17:43 75 MG Polyethylene (Miralax Powder Packet) 17 gm DAILY PO 08/18/16 10:00 09/12/16 09:59 08/20/16 07:40 17 GM Famotidine (Pepcid Tab) 20 mg DAILY PO 08/19/16 09:00 09/18/16 08:59 08/20/16 07:42 20 MG Insulin Glargine (Lantus Vial) 85 unit BID SC 08/19/16 21:00 09/18/16 20:59 08/20/16 07:46 85 UNIT Heparin Sodium (Porcine) (Heparin Iv Bolus) 2,000 unit ONE IV 08/20/16 06:00 08/20/16 18:00 Impression (1) ESRD on hemodialysis (2) Hypercapnic respiratory failure (3) CO2 narcosis (4) Obesity hypoventilation syndrome (5) Hyperkalemia (6) Morbid obesity with BMI of 50.0-59.9, adult (7) Arthritis (8) Hyperphosphatemia Hemalatha is a 60-year-old female with morbid obesity, obesity hypoventilation syndrome, recurrent hypercapnia, advanced chronic kidney disease requiring [employer], right heart failure and failure of diuretic therapy. She has had multiple hospitalizations for volume overload and electrolyte abnormalities associated with diuretics. Hemalatha developed ESRD requiring perm cath placement and initiation of hemodialysis during hospitalization in June 2016. Permcath was placed 07/25. She completed her first dialysis treatment on 07/25. She is on hemodialysis at [facility] TTS schedule. She currently dialyzes via a TDC. AVF is scheduled to be created 08/19/[address] Thapa Recommendations ESRD: -- AVF placed yesterday by Dr. Thapa without complications -- No complications with HD today -- UF goal 2 kg -- Continue MWF while inpatient and at [facility] -- Renal diet CO2 NARCOSIS / OBESITY HYPOVENTILATION SYNDROME: -- Patient tolerating BiPAP HYPERPHOSPHATEMIA: -- Phoslo QAC with monitoring of serum calcium (noted history of hypercalcemia) ARTHRITIS/CHRONIC PAIN: -- Lyrica dose has been reduced to 75 mg daily, take after HD on dialysis days -- Discourage aggressive use of opiates given concerns about chronic CO2 retention ANEMIA: -- Epogen held for hemoglobin >11 OTHER: -- Physical therapy consultation for strengthening. -- Patient is interested in [facility] following hospitalization
--- NOTE | 2016-08-20 14:06 | Pharmacy Progress Note ---
Glycemic: Assessment & Plan Date of Service Aug 20, 2016. Assessment & Plan Current Regimen: * Basal insulin: Lantus 85 units every 12 hours * Correctional Insulin: Novolog Correction per scale ACHS Goal Range: Low 110 mg/dL - High 140 mg/dL Correction Factor: 6 mg/dL/unit * Prandial insulin: Per carb ratio of 1 unit per 1.5 grams CHO consumed ASSESSMENT: 08/20/16 * The patient had received ~300 units of insulin per day 08/16-08/18. * Her am dose of Lantus was decreased from 77 to 65 units yesterday due to procedure for AVF creation, therefore, she received significantly less insulin yesterday (218 units). * Resumed oral diet. Steroid dose remains at 15 mg daily. * Her BSGs have ranged from 162 - 212 mg/dl over the past 24hrs. * Basal insulin was increased yesterday (starting with the evening dose) by 10% . * We have not seen the effect of this increase at this point so no changes will be made today PLAN FOR INPATIENT CONTROL: * Continue Lantus to 85 units BID * Continue CF 6 * Continue CR 1.5 * Goal range 110 - 140 mg/dL BSGs continue to improve, no changes needed to inpatient regimen at this time. Pharmacy will continue to monitor patient daily and write orders per [facility] inpatient glycemic control protocol. Thanks. * Please note that the plan above was derived based on current level of insulin resistance and hospital stress. These recommendations are appropriate for inpatient admission only. Plan of care upon discharge will need to be reassessed to avoid potential outpatient hypo/hyperglycemia.
--- NOTE | 2016-08-20 14:32 | Progress Note ---
Progress Note Date of Service: Aug 20, 2016. Subjective 60 yo f POD #1 after l AC cephalic v avf creation, seen in f/u today. Pt states not feeling well presently. Admits YOUSSEF, nausea, neck pain, and hypotension. Denies any other complaints, including hand pain or numbness. Problem List Medical Problems: (1) Altered mental status Status: Acute (2) Anasarca Status: Acute (3) Anasarca Status: Acute (4) Bilateral cellulitis of lower leg Status: Acute (5) Bilateral lower leg cellulitis Status: Acute (6) Change in mental status Status: Acute (7) Chronic renal failure Status: Acute (8) CO2 retention Status: Acute (9) Dehydration Status: Acute (10) Dyspnea on exertion Status: Acute (11) Fall Status: Acute (12) Fever Status: Acute (13) Fever Status: Acute (14) Generalized weakness Status: Acute (15) Hypercarbia Status: Acute (16) Hyperkalemia Status: Acute (17) Hypokalemia Status: Acute (18) Hypoxemia Status: Acute (19) Hypoxia Status: Acute (20) Lumbar strain Status: Acute (21) Respiratory failure Status: Acute (22) Respiratory failure with hypercapnia Status: Acute (23) Weakness Status: Acute (24) Weight gain Status: Acute (25) Wrist pain Status: Acute Objective Vital Signs Vital Signs Past 12 Hours Date Time Temp Pulse Resp B/P (MAP) Pulse Ox O2 Delivery O2 Flow Rate FiO2 08/20/16 14:02 36.4 74 105/43 (63) 08/20/16 13:00 81 83/24 08/20/16 12:45 71 94/40 08/20/16 12:30 78 95/60 08/20/16 12:15 68 111/59 08/20/16 12:00 75 122/66 08/20/16 11:45 74 93/67 08/20/16 11:30 83 115/78 08/20/16 11:15 94 116/54 08/20/16 11:00 73 95/50 08/20/16 10:45 74 124/67 08/20/16 10:30 74 126/67 08/20/16 10:15 71 140/72 08/20/16 10:00 69 138/48 08/20/16 09:45 71 144/69 08/20/16 09:31 36.6 71 144/71 (95) 08/20/16 08:30 Nasal Cannula 3.0 08/20/16 07:12 36.7 80 20 157/84 (108) 92 Nasal Cannula 3.0 Exam CONST: A&O x3, mild distress, morbidly obese, chronically ill appearing female EXT: L AC incision C/D/I, + local tenderness, ecchymosis, and edema. + thrill bruit. + distal pulses and brisk cap refill, equal strength Intake & Output 8-Hour Column 08/20/16 08/21/16 08/21/16 16:00 00:00 08:00 Output Total 871 ml Balance -871 ml 24-Hour Column 08/21/16 08:00 Output Total 871 ml Balance -871 ml Laboratory and Microbiology Results Past 24 Hours Test 08/19/16 16:16 08/19/16 17:06 08/19/16 20:47 08/20/16 05:33 Range/Units Bedside Glucose 211 212 181 70-90 mg/dl White Blood Count 12.65 4.8-10.8 K/uL Red Blood Count 3.74 4.2-5.4 M/uL Hemoglobin 11.4 12.0-16.0 g/dL Hematocrit 37.0 37-47 % Mean Corpuscular Volume 98.9 80-100 fL Mean Corpuscular Hemoglobin 30.5 25-34 pg Mean Corpuscular Hemoglobin Concent 30.8 32-36 g/dl RDW Standard Deviation 75.2 36.4-46.3 fL RDW Coefficient of Variation 21.1 11.5-14.5 % Platelet Count 204 130-400 K/uL Mean Platelet Volume 9.7 7.4-10.4 fL Nucleated RBC Absolute Count (auto) 0.22 0-0 K/uL Nucleated Red Blood Cells % 1.8 % Sodium Level 133 136-145 mmol/L Potassium Level 5.9 3.5-5.1 mmol/L Chloride Level 101 98-107 mmol/L Carbon Dioxide Level 20 21-32 mmol/L Anion Gap 12.0 3-11 mmol/L Blood Urea Nitrogen 67 7-18 mg/dl Creatinine 8.40 0.60-1.20 mg/dl Est Creatinine Clear Calc Drug Dose 9.8 ml/min Estimated GFR () 5.3 Estimated GFR (Non- 4.6 BUN/Creatinine Ratio 8.0 10-20 Random Glucose 173 70-99 mg/dl Calcium Level 8.1 8.5-10.1 mg/dl Magnesium Level 2.6 1.8-2.4 mg/dl Test 08/20/16 07:29 08/20/16 11:19 08/20/16 14:04 Range/Units Bedside Glucose 189 156 70-90 mg/dl ASSESSMENT and PLAN: s/p L ac cephalic v avf creation ESRD on hD Pt doing well pos top. Will see in office in 2 weeks to eval for maturation. Please call if needed.
[2016-08-20 14:51] LABS: BUN/CREATININE RATIO 6.7 (10-20); CALCIUM 7.4 mg/dl (8.5-10.1); POTASSIUM 4.5 mmol/L (3.5-5.1)
[2016-08-20] MEDS: HYDROmorphone INJ 0.5 MG/0.5 ML SYR IV PRN ×2 (15:32→20:45)
[2016-08-20] MEDS: PREGABALIN 75 MG CAP PO SCH (15:32)
[2016-08-20] MEDS: VERAPAMIL HCL 240 MG TABCR PO SCH (20:55)
[2016-08-21] MEDS: HYDROmorphone INJ 0.5 MG/0.5 ML SYR IV PRN ×5 (01:56→23:57)
[2016-08-21 06:09] LABS: HEMATOCRIT 37.2 % (37-47); MEAN CELL VOLUME 97.6 fL (80-100); MEAN CORPUSCULAR HEMOGLOBIN 30.7 pg (25-34); MEAN CORPUSCULAR HGB CONC 31.5 g/dl (32-36); MEAN PLATELET VOLUME 10.5 fL (7.4-10.4); PLATELET COUNT 218 K/uL (130-400); RED BLOOD COUNT 3.81 M/uL (4.2-5.4); WHITE BLOOD COUNT 13.67 K/uL (4.8-10.8)
[2016-08-21 06:59] LABS: BUN/CREATININE RATIO 7.6 (10-20); CALCIUM 8.1 mg/dl (8.5-10.1); CREATININE 6.7 mg/dl (0.60-1.20); MAGNESIUM 2.6 mg/dl (1.8-2.4); POTASSIUM 4.6 mmol/L (3.5-5.1)
[2016-08-21 07:17] VITALS: BP 127/61; PULSE 101; TEMP 36.8; O2SAT 92
[2016-08-21] MEDS: PANTOprazole SOD 40 MG TAB PO SCH (08:33)
[2016-08-21] MEDS: PYRIDOXINE HCL 50 MG TAB PO SCH (08:33)
[2016-08-21] MEDS: FLUTICASONE/SALMETEROL (ADVAIR) 500/50 INH 14 PUFF INH SCH ×2 (08:34→20:50)
[2016-08-21] MEDS: ALLOPURINOL 100 MG TAB PO SCH (08:34)
[2016-08-21] MEDS: CALCIUM ACETATE 667MG GELCAP PO SCH ×3 (08:34→17:41)
[2016-08-21] MEDS: ATORVASTATIN 40 MG TAB PO SCH (08:34)
[2016-08-21] MEDS: CHOLECALCIFEROL 1000 INTER.UNIT TAB PO SCH (08:34)
[2016-08-21] MEDS: POLYETHYLENE (MIRALAX) 17 GM PACK PO SCH (08:35)
[2016-08-21] MEDS: FAMOTIDINE 20 MG TAB PO SCH (08:35)
[2016-08-21] MEDS: METOPROLOL SUCC 50MG EXT REL TAB PO SCH (08:35)
[2016-08-21] MEDS: TIOTROPIUM BROMIDE 5 PUFF/90 MCG INH INH SCH (08:36)
[2016-08-21] MEDS: AMMONIUM LACTATE 12% LOTION 225 GM BTL EXT SCH ×2 (08:44→21:00)
[2016-08-21] MEDS: INSULIN ASPART 100 UNITS/ML 3 ML PEN SC SCH ×4 (08:44→20:44)
[2016-08-21] MEDS: INSULIN GLARGINE SC SCH ×2 (08:46→21:09)
[2016-08-21] MEDS: ONDANSETRON INJ 2 MG/ML 2 ML VIAL IV PRN (10:06)
--- NOTE | 2016-08-21 10:08 | Nephrology Progress Note ---
Nephrology Progress Note Date of Service Aug 21, 2016. Chief Complaint ESRD Subjective Hemalatha was seen and evaluated in her hospital room this morning. Her was at the bedside. Overall Palema feels slightly better this morning. She was able to tolerate clear liquids for breakfast. Appetite is good. Nausea improving. Pain control improving. She reports pain along her incision which made it difficult to sleep overnight. She denies constipation. HD yesterday complicated by intradialytic hypotension, net UF < 1 L. Review of Systems A complete review of systems was performed. Pertinent positives are noted above. All other systems are negative. Vital Signs Last 8 Hrs Date Time Temp Pulse Resp B/P (MAP) Pulse Ox O2 Delivery O2 Flow Rate FiO2 08/21/16 07:17 36.8 101 18 127/61 (83) 92 Nasal Cannula 3.0 Last Recorded Weight Weight (Kilograms): 137.600 Physical Exam General Appearance: no apparent distress, + obese Head: normocephalic, atraumatic Eyes: normal inspection, sclerae normal ENT: normal ENT inspection, pharynx normal Neck: supple, thyroid normal Respiratory/Chest: no respiratory distress, no accessory muscle use, + decreased breath sounds Cardiovascular: regular rate, rhythm, no gallop Abdomen/GI: non tender, soft Extremities/Musculoskelatal: + pedal edema, + pertinent finding (LUE AVF with good bruit) Neurologic/Psych: alert, oriented x 3 Family History Cancer Diabetes mellitus Gallbladder disease Heart disease Lung disease Social History Smoking Status: Former smoker Drug Use: none Marital Status: Housing Status: lives with family Occupation: unemployed Laboratory Results Past 24 Hours 08/21/16 05:22 08/20/16 14:18 08/21/16 05:22 Test 08/20/16 11:19 08/20/16 14:18 08/20/16 16:34 08/20/16 20:27 Bedside Glucose 156 mg/dl (70-90) 129 mg/dl (70-90) 97 mg/dl (70-90) Anion Gap 9.0 mmol/L (3-11) Est Creatinine Clear Calc Drug Dose 16.4 ml/min Estimated GFR () 10.0 Estimated GFR (Non- 8.6 BUN/Creatinine Ratio 6.7 (10-20) Calcium Level 7.4 mg/dl (8.5-10.1) Test 08/21/16 05:22 08/21/16 07:46 Red Blood Count 3.81 M/uL (4.2-5.4) Mean Corpuscular Volume 97.6 fL (80-100) Mean Corpuscular Hemoglobin 30.7 pg (25-34) Mean Corpuscular Hemoglobin Concent 31.5 g/dl (32-36) RDW Standard Deviation 74.3 fL (36.4-46.3) RDW Coefficient of Variation 21.0 % (11.5-14.5) Mean Platelet Volume 10.5 fL (7.4-10.4) Nucleated RBC Absolute Count (auto) 0.31 K/uL (0-0) Nucleated Red Blood Cells % 2.2 % Anion Gap 9.0 mmol/L (3-11) Est Creatinine Clear Calc Drug Dose 12.3 ml/min Estimated GFR () 7.0 Estimated GFR (Non- 6.1 BUN/Creatinine Ratio 7.6 (10-20) Calcium Level 8.1 mg/dl (8.5-10.1) Magnesium Level 2.6 mg/dl (1.8-2.4) Bedside Glucose 89 mg/dl (70-90) Allergies Coded Allergies: Daptomycin (Verified Allergy, Mild, HIVES, 07/24/16) itching Iodine (Verified Allergy, Unknown, 07/24/16) Shellfish (Verified Allergy, Unknown, 07/24/16) Sulfamethoxazole w/Trimethoprim (Verified Allergy, Unknown, RASH, 07/24/16) Codeine (Verified Adverse Reaction, Unknown, NAUSEA, 08/14/16) has tolerated morphine Medications Current Inpatient Medications Medications (Trade) Dose Ordered Sig/Duyen Route Start Time Stop Time Status Last Admin Dose Admin Acetaminophen (Tylenol Tab) 650 mg Q4H PRN PO 08/13/16 23:45 09/12/16 23:44 08/17/16 03:19 650 MG Ondansetron HCl (Zofran Inj) 4 mg Q6H PRN IV 08/13/16 23:45 09/12/16 23:44 08/20/16 18:26 4 MG Miscellaneous (Iv Fluids Completed) 1 ea PRN PRN N/A 08/14/16 01:00 08/14/17 00:59 Miscellaneous Information (Consult Glycemic Management Pharmacy) 1 ea UD PRN N/A 08/14/16 08:19 09/13/16 08:18 Allopurinol (Zyloprim Tab) 100 mg DAILY PO 08/14/16 10:00 09/13/16 09:59 08/21/16 08:34 100 MG Atorvastatin Calcium (Lipitor Tab) 40 mg DAILY PO 08/14/16 10:00 09/13/16 09:59 08/21/16 08:34 40 MG Cholecalciferol (Vitamin D Tab) 1,000 inter.unit DAILY PO 08/14/16 10:00 09/13/16 09:59 08/21/16 08:34 1,000 INTER.UNIT Salmeterol Xinafoate/ Fluticasone (Advair Diskus 500/50 Inh) 1 puff BID INH 08/14/16 10:00 09/13/16 09:59 08/21/16 08:34 1 PUFF Albuterol/ Ipratropium (Duoneb) 3 ml Q6H PRN INH 08/14/16 08:00 09/13/16 07:59 Ammonium Lactate (Lac-Hydrin) 1 appl BID EXT 08/14/16 10:00 09/13/16 09:59 08/21/16 08:44 1 APPL Metoprolol Succinate (Toprol Xl Tab) 150 mg DAILY PO 08/14/16 10:00 09/13/16 09:59 08/21/16 08:35 150 MG Miconazole Nitrate (Desenex Powder) 1 appln UD PRN EXT 08/14/16 08:00 09/13/16 07:59 Pantoprazole Sodium (Protonix Tab) 40 mg DAILY PO 08/14/16 10:00 09/13/16 09:59 08/21/16 08:33 40 MG Prednisone (PredniSONE TAB) 15 mg DAILY PO 08/14/16 10:00 09/13/16 09:59 08/21/16 08:35 15 MG Pyridoxine HCl (Vitamin B-6 Tab) 200 mg DAILY PO 08/14/16 10:00 09/13/16 09:59 08/21/16 08:33 200 MG Tiotropium [place] (Spiriva Handihaler Inhaler) 1 puff DAILY INH 08/14/16 10:00 09/13/16 09:59 08/21/16 08:36 1 PUFF Verapamil HCl (Calan-Sr Tab) 240 mg HS PO 08/14/16 21:00 09/13/16 20:59 08/19/16 21:45 240 MG Insulin Aspart (novoLOG ASPART) SLIDING SCALE ACHS SC 08/14/16 08:00 09/13/16 07:59 08/21/16 08:44 7 UNITS Calcium Acetate (Phoslo Cap) 667 mg TIDM PO 08/14/16 11:30 09/13/16 11:29 08/21/16 08:34 667 MG Acetaminophen/ Hydrocodone Bitart ([place] 5/325 Tab) 1 tab Q6H PRN PO 08/14/16 22:30 08/28/16 22:29 08/20/16 12:52 1 TAB Pregabalin (Lyrica Cap) 75 mg DAILY@1600 PO 08/18/16 16:00 09/17/16 15:59 08/20/16 15:32 75 MG Polyethylene (Miralax Powder Packet) 17 gm DAILY PO 08/18/16 10:00 09/12/16 09:59 08/21/16 08:35 17 GM Famotidine (Pepcid Tab) 20 mg DAILY PO 08/19/16 09:00 09/18/16 08:59 08/21/16 08:35 20 MG Insulin Glargine (Lantus Vial) 85 unit BID SC 08/19/16 21:00 09/18/16 20:59 08/21/16 08:46 85 UNIT Hydromorphone HCl (Dilaudid Inj) 0.5 mg Q4 PRN IV 08/20/16 14:15 09/03/16 14:14 08/21/16 06:37 0.5 MG Impression (1) ESRD on hemodialysis (2) Hypercapnic respiratory failure (3) CO2 narcosis (4) Obesity hypoventilation syndrome (5) Hyperkalemia (6) Morbid obesity with BMI of 50.0-59.9, adult (7) Arthritis (8) Hyperphosphatemia Hemalatha is a 60-year-old female with morbid obesity, obesity hypoventilation syndrome, recurrent hypercapnia, advanced chronic kidney disease requiring VIDEOGRAPHER, right heart failure and failure of diuretic therapy. She has had multiple hospitalizations for volume overload and electrolyte abnormalities associated with diuretics. Hemalatha developed ESRD requiring perm cath placement and initiation of hemodialysis during hospitalization in June 2016. Permcath was placed 07/25. She completed her first dialysis treatment on 07/25. She is on hemodialysis at [facility] TTS schedule. She currently dialyzes via a TDC. AVF is scheduled to be created 08/19/[address] Thapa Recommendations ESRD: -- AVF healing appropriately with good bruit -- HD MWF -- Volume status and blood pressure currently appropriate -- Renal diet, fluid restriction reviewed with patient today HYPERTENSION: -- BP appropriate -- Decrease verapamil to 120 mg daily CO2 NARCOSIS / OBESITY HYPOVENTILATION SYNDROME: -- Patient tolerating BiPAP HYPERPHOSPHATEMIA: -- Phoslo QAC with monitoring of serum calcium (noted history of hypercalcemia) ARTHRITIS/CHRONIC PAIN: -- Lyrica dose has been reduced to 75 mg daily, take after HD on dialysis days -- Discourage aggressive use of opiates given concerns about chronic CO2 retention ANEMIA: -- Epogen held for hemoglobin >11 OTHER: -- Physical therapy consultation for strengthening. -- Patient is interested in [facility] following hospitalization
[2016-08-21] MEDS: HYDROCODONE/ACETAMOPHEN 5/325MG TAB PO PRN (11:12)
--- NOTE | 2016-08-21 12:13 | Hospitalist Progress Note ---
Hospitalist Progress Note Date of Service Aug 21, 2016. Subjective Pt evaluation today including: conversation w/ patient, conversation w/ family (- at bedside), physical exam, chart review, lab review, review of inpatient medication list Patient states she is feeling OK this AM. Upset stomach and nausea is improving, IV Zofran helps significantly Currently on clear liquid diet- requesting to advance diet +bilateral hand/feet, tailbone (chronic), and AVF site pain Per , request Dilaudid, but nurse would not give to patient and gave [place] instead According to the nurse, patient was sleeping and was requesting the medications Unhappy w/ significant decrease in Lyrica- spoke w/ Dr. Thompson, will increase to BID Patient denies any fever, chills, sweats, lightheadedness, dizziness, vision changes, CP, palpitations, edema, SOB, wheezing, cough, vomiting, diarrhea, urinary symptoms, melena, numbness/tingling, weakness, anxiety/depression, active bleeding, or new skin discoloration/changes. Medications Current Inpatient Medications Medications (Trade) Dose Ordered Sig/Duyen Route Start Time Stop Time Status Last Admin Dose Admin Acetaminophen (Tylenol Tab) 650 mg Q4H PRN PO 08/13/16 23:45 09/12/16 23:44 08/17/16 03:19 650 MG Ondansetron HCl (Zofran Inj) 4 mg Q6H PRN IV 08/13/16 23:45 09/12/16 23:44 08/21/16 10:06 4 MG Miscellaneous (Iv Fluids Completed) 1 ea PRN PRN N/A 08/14/16 01:00 08/14/17 00:59 Miscellaneous Information (Consult Glycemic Management Pharmacy) 1 ea UD PRN N/A 08/14/16 08:19 09/13/16 08:18 Allopurinol (Zyloprim Tab) 100 mg DAILY PO 08/14/16 10:00 09/13/16 09:59 08/21/16 08:34 100 MG Atorvastatin Calcium (Lipitor Tab) 40 mg DAILY PO 08/14/16 10:00 09/13/16 09:59 08/21/16 08:34 40 MG Cholecalciferol (Vitamin D Tab) 1,000 inter.unit DAILY PO 08/14/16 10:00 09/13/16 09:59 08/21/16 08:34 1,000 INTER.UNIT Salmeterol Xinafoate/ Fluticasone (Advair Diskus 500/50 Inh) 1 puff BID INH 08/14/16 10:00 09/13/16 09:59 08/21/16 08:34 1 PUFF Albuterol/ Ipratropium (Duoneb) 3 ml Q6H PRN INH 08/14/16 08:00 09/13/16 07:59 Ammonium Lactate (Lac-Hydrin) 1 appl BID EXT 08/14/16 10:00 09/13/16 09:59 08/21/16 08:44 1 APPL Metoprolol Succinate (Toprol Xl Tab) 150 mg DAILY PO 08/14/16 10:00 09/13/16 09:59 08/21/16 08:35 150 MG Miconazole Nitrate (Desenex Powder) 1 appln UD PRN EXT 08/14/16 08:00 09/13/16 07:59 Pantoprazole Sodium (Protonix Tab) 40 mg DAILY PO 08/14/16 10:00 09/13/16 09:59 08/21/16 08:33 40 MG Prednisone (PredniSONE TAB) 15 mg DAILY PO 08/14/16 10:00 09/13/16 09:59 08/21/16 08:35 15 MG Pyridoxine HCl (Vitamin B-6 Tab) 200 mg DAILY PO 08/14/16 10:00 09/13/16 09:59 08/21/16 08:33 200 MG Tiotropium [place] (Spiriva Handihaler Inhaler) 1 puff DAILY INH 08/14/16 10:00 09/13/16 09:59 08/21/16 08:36 1 PUFF Insulin Aspart (novoLOG ASPART) SLIDING SCALE ACHS SC 08/14/16 08:00 09/13/16 07:59 08/21/16 08:44 7 UNITS Calcium Acetate (Phoslo Cap) 667 mg TIDM PO 08/14/16 11:30 09/13/16 11:29 08/21/16 08:34 667 MG Acetaminophen/ Hydrocodone Bitart ([place] 5/325 Tab) 1 tab Q6H PRN PO 08/14/16 22:30 08/28/16 22:29 08/21/16 11:12 1 TAB Pregabalin (Lyrica Cap) 75 mg DAILY@1600 PO 08/18/16 16:00 09/17/16 15:59 08/20/16 15:32 75 MG Polyethylene (Miralax Powder Packet) 17 gm DAILY PO 08/18/16 10:00 09/12/16 09:59 08/21/16 08:35 17 GM Famotidine (Pepcid Tab) 20 mg DAILY PO 08/19/16 09:00 09/18/16 08:59 08/21/16 08:35 20 MG Insulin Glargine (Lantus Vial) 85 unit BID SC 08/19/16 21:00 09/18/16 20:59 08/21/16 08:46 85 UNIT Hydromorphone HCl (Dilaudid Inj) 0.5 mg Q4 PRN IV 08/20/16 14:15 09/03/16 14:14 08/21/16 06:37 0.5 MG Verapamil HCl (Calan-Sr Tab) 120 mg HS PO 08/21/16 21:00 09/13/16 20:59 Objective Vital Signs Date Time Temp Pulse Resp B/P (MAP) Pulse Ox O2 Delivery O2 Flow Rate FiO2 08/21/16 07:17 36.8 101 18 127/61 (83) 92 Nasal Cannula 3.0 08/20/16 23:59 CPAP 08/20/16 23:49 36.9 76 19 94/58 (70) 95 Nasal Cannula 3.0 08/20/16 16:30 Nasal Cannula 3.0 08/20/16 15:07 36.8 68 18 95/61 (72) 95 Nasal Cannula 2.0 08/20/16 14:02 36.4 74 105/43 (63) 08/20/16 13:00 81 83/24 08/20/16 12:45 71 94/40 08/20/16 12:30 78 95/60 08/20/16 12:15 68 111/59 Physical Exam General Appearance: no apparent distress, + obese, + pertinent finding (3L O2 nasal cannula ) Eyes: normal inspection, PERRL ENT: hearing grossly normal Neck: supple Respiratory/Chest: lungs clear, no respiratory distress, no accessory muscle use, + decreased breath sounds (decreased throughout, > bilateral bases ) Cardiovascular: regular rate, rhythm Abdomen: normal bowel sounds, non tender, + distended Extremities: + pedal edema, + pertinent finding (chronic stasis dermatitis changes noted to bilateral lower extremities; AVF site with noted brusising- no obvious warmth, erythema, or drainage ) 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: alert, normal mood/affect, oriented x 3 Skin: normal color, warm/dry, no rash Laboratory Results Last 24 Hours Test 08/20/16 14:18 08/20/16 16:34 08/20/16 20:27 08/21/16 05:22 Sodium Level 135 mmol/L 134 mmol/L Potassium Level 4.5 mmol/L 4.6 mmol/L Chloride Level 105 mmol/L 102 mmol/L Carbon Dioxide Level 21 mmol/L 23 mmol/L Anion Gap 9.0 mmol/L 9.0 mmol/L Blood Urea Nitrogen 34 mg/dl 51 mg/dl Creatinine 5.00 mg/dl 6.70 mg/dl Est Creatinine Clear Calc Drug Dose 16.4 ml/min 12.3 ml/min Estimated GFR () 10.0 7.0 Estimated GFR (Non- 8.6 6.1 BUN/Creatinine Ratio 6.7 7.6 Random Glucose 162 mg/dl 86 mg/dl Calcium Level 7.4 mg/dl 8.1 mg/dl Bedside Glucose 129 mg/dl 97 mg/dl White Blood Count 13.67 K/uL Red Blood Count 3.81 M/uL Hemoglobin 11.7 g/dL Hematocrit 37.2 % Mean Corpuscular Volume 97.6 fL Mean Corpuscular Hemoglobin 30.7 pg Mean Corpuscular Hemoglobin Concent 31.5 g/dl RDW Standard Deviation 74.3 fL RDW Coefficient of Variation 21.0 % Platelet Count 218 K/uL Mean Platelet Volume 10.5 fL Nucleated RBC Absolute Count (auto) 0.31 K/uL Nucleated Red Blood Cells % 2.2 % Magnesium Level 2.6 mg/dl Test 08/21/16 07:46 08/21/16 11:33 Bedside Glucose 89 mg/dl 93 mg/dl Assessment and Plan 60-year-old female with extensive PMHx presents to the ER with complaints of weakness and frequent falls due to excessive jerkiness. Acute on chronic hypercapnic respiratory failure- STABLE/obesity hypoventilation syndrome/MIKAYLA/COPD- STABLE: - Continue O2- wears 3-4L of O2 supplement at home, and BiPAP HS - DuoNebs q6 hrs PRN - Continue Advair, Spiriva, and Prednisone 15 mg daily - Pulmonary consulted, appreciate recommendations Frequent falls, likely secondary to deconditioning, weakness, jerkiness: - Head CT- Negative for any acute changes - PT/OT- recommending acute inpatient rehab- patient agreeable - Belviq 10 mg BID d/c'd w/ moderate improvement in jerkiness/jitteriness - Nephrology decreased Lyrica CKD stage 5, secondary to diabetic nephropathy/hypertensive sclerosis- requiring HD MWF: - Nephrology consulted, appreciate recommendations -- Renal diet -- Hyperphosphatemia: Phoslo QAC -- Epogen held for hgb ?11.0 - Vascular surgery consulted- left antecubital cephalic vein AV fistula on 08/19 ; PermCath removal on 08/20 -- f/u outpatient in 2 weeks Leukocytosis, likely secondary to postop response: - No s/s of infection- continue to monitor - Follow CBC Hyperkalemia, secondary to CKD stage V- RESOLVED: Follow PRP Hypercalcemia- noted during previous admission: - Serum free light chain ratio is elevated. UIEP was positive for IgG Heron monoclonal protein during outpatient workup - Followed by Dr. Delong, pending further evaluation Hyponatremia- STABLE Cor pulmonale: - Last echo 07/25/15: Hyperdynamic LV systolic function. Mild concentric LV hypertrophy. LV diastolic dysfunction. Mild RV dilatation and systolic dysfunction. Mild tricuspid regurgitation. Mildly elevated RV systolic pressure. Normal central venous pressure. Ejection Fraction = >70 % - Daily weights, I's and O's Chronic venous insufficiency: - Elevate legs. TEDs - Per patient, lower extremity edema has worsened since Dr. Neri d/c'd Bumex treatment HTN- CONTROLLED: Continue Toprol-XL 150 mg - Hypotensive episodes- Verapamil CR 240 mg decreased to 120 mg HS Dyslipidemia: Lipitor 40 mg daily DM- HbA1c 6.3% on 05/20/16: - Lantus 85 u BID - BSG ACHS w/ SSI - Pharmacy consulted for glycemic management Gout- ASYMPTOMATIC: Allopurinol 100 mg daily Peripheral neuropathy/chronic pain: - Pregabalin 150 mg BID decreased to 75 mg daily by nephrology- patient complains of continued pain w/ decrease in medication- discussed w/ nephrology, increase to BID - [place] q6 hrs PRN pain - IV Dilaudid 0.5 mg q4 hrs PRN pain GI Prophylaxis: Protonix, Maalox PRN, IV Zofran PRN, Colace and/or Milk of Mag PRN, MiraLAX daily DVT Prophylaxis: Heparin Code Status: LEVEL I, FULL Dispo: Discharge to [facility] when medically stable- health care social worker following- hopefully within the next 1-2 days
--- NOTE | 2016-08-21 14:39 | PULMONARY PROGRESS NOTE ---
DATE: 08/21/2016 DATE: 08/21/2016. TIME: 2 p.m. SUBJECTIVE: The patient denies shortness of breath. She denies cough. She complains that she is not sleeping well due to pain at the base of her spine. This seems to come and go. She states she will sleep for about 2 hours and then awaken with discomfort. She seems sleepy this afternoon, but she insists it is because she did not sleep well last night. Obviously, our concern is that her pCO2 levels could be climbing. The ABG that she had done on the was very good with her pCO2 down to 46. She states she has been awake since about 5:00 a.m. and has not had any naps today. Yesterday at dialysis she had hypotension and she was nauseated. The nausea has resolved today. OBJECTIVE: GENERAL: The patient looks sleepy. VITAL SIGNS: Temperature is 36.8. NECK: She has a very large neck. Her face is a little puffy, which is her normal. HEART: Heart rate was 100 per minute. Blood pressure 127/61. LUNGS: Lung rain revealed diminished breath sounds. No wheezing was heard. Respiratory rate was 18. Saturations were 92% on 3 liters. ABDOMEN: Remains obese. EXTREMITIES: She has a scar in the left arm from the recent vascular surgery. Her legs continue to be mildly edematous. LABORATORY DATA: Electrolytes today show sodium 134, potassium 4.6, chloride 102, bicarb 23. BUN 51 with a creatinine of 6.7. Blood sugar this morning was 93. Magnesium was 2.6. White count is 13.67. Hemoglobin 11.7. Platelets 218,000. IMPRESSIONS: 1. Respiratory failure -- acute on chronic -- improved. 2. Obesity hypoventilation syndrome. 3. Obstructive sleep apnea. 4. Chronic obstructive pulmonary disease. 5. Renal failure -- on dialysis. COMMENTS: The patient seems a little sleepier than I would like. It may well be due to not sleeping well. We need to be cautious; however, about the possibility of her pCO2 increasing again, thus she will need periodic clinical evaluation. She was reluctant to have any further blood gases because she had pain and discomfort in the wrist when they did the last one several days ago. I explained to her that if necessary brachial route could be attempted and would be likely less uncomfortable. I promised her we would not do a blood gas again; however unless we clinically felt that it must be done. She is to continue with her Trilogy at nighttime as she has been doing. Review of her medicines suggest that she did get some Dilaudid IV at 12:25 p.m. today. Perhaps that was also contributing to her lethargy. It appears she also had a hydrocodone tablet this morning. The pain medicines are a definite possibility of aggravating her pCO2 levels which are already elevated.
[2016-08-21 14:42] VITALS: BP 113/68; PULSE 78; TEMP 36.8; O2SAT 93
[2016-08-21] MEDS ORDERED: DOXYCYCLINE HYCLATE 100 MG CAP PO ONE (15:00)
--- NOTE | 2016-08-21 15:29 | Pharmacy Progress Note ---
Glycemic: Assessment & Plan Date of Service Aug 21, 2016. Assessment & Plan Current Regimen: * Basal insulin: Lantus 85 units every 12 hours * Correctional Insulin: Novolog Correction per scale ACHS Goal Range: Low 110 mg/dL - High 140 mg/dL Correction Factor: 6 mg/dL/unit * Prandial insulin: Per carb ratio of 1 unit per 1.5 grams CHO consumed ASSESSMENT: 08/20/16 * The patient received 243 units of insulin on 08/20 with BSGs ranging from 97 to 189 mg/dL * Lantus dose was increased from 77 units BID to 85 units BID starting on 08/19 PM (10% increase). * Fasting of 89 mg/dL today * Dose of 77 units BID was not at steady state at time of dose increase * I suspect dose of 85 units BID may be too much for her. * Change to Lantus per scale tonight to avoid hypoglycemia - anticipate patient to need 80 units BID * Steroid dose remains at 15 mg daily. PLAN FOR INPATIENT CONTROL: * Decrease Lantus to 77-80 units BID * 77 units for BSG less than 140 mg/dL * 80 units for BSG 140 mg/dL or more * Continue Goal range 110 - 140 mg/dL * Continue CF 6 * Continue CR 1.5 * Please note that the plan above was derived based on current level of insulin resistance and hospital stress. These recommendations are appropriate for inpatient admission only. Plan of care upon discharge will need to be reassessed to avoid potential outpatient hypo/hyperglycemia.
[2016-08-21] MEDS: VERAPAMIL HCL 120 MG TABCR PO SCH (21:00)
[2016-08-21] MEDS: PREGABALIN 75 MG CAP PO SCH (21:04)
[2016-08-21 21:12] VITALS: BP 95/62; PULSE 93; TEMP 36.8; O2SAT 99
[2016-08-22] VITALS (23 sets, daily range): BP systolic 105–149; BP diastolic 62–77; PULSE 72–100; TEMP 36.4–36.9; O2SAT 93–100
[2016-08-22 07:27] LABS: HEMATOCRIT 34.9 % (37-47); MEAN CELL VOLUME 96.9 fL (80-100); MEAN CORPUSCULAR HEMOGLOBIN 31.1 pg (25-34); MEAN CORPUSCULAR HGB CONC 32.1 g/dl (32-36); MEAN PLATELET VOLUME 10.2 fL (7.4-10.4); PLATELET COUNT 230 K/uL (130-400); WHITE BLOOD COUNT 11.77 K/uL (4.8-10.8)
[2016-08-22] MEDS: FLUTICASONE/SALMETEROL (ADVAIR) 500/50 INH 14 PUFF INH SCH ×2 (07:46→20:26)
[2016-08-22] MEDS: AMMONIUM LACTATE 12% LOTION 225 GM BTL EXT SCH ×2 (07:46→20:25)
[2016-08-22] MEDS: TIOTROPIUM BROMIDE 5 PUFF/90 MCG INH INH SCH (07:47)
[2016-08-22] MEDS: CALCIUM ACETATE 667MG GELCAP PO SCH ×3 (07:47→17:38)
[2016-08-22] MEDS: PANTOprazole SOD 40 MG TAB PO SCH (07:48)
[2016-08-22] MEDS: POLYETHYLENE (MIRALAX) 17 GM PACK PO SCH (07:48)
[2016-08-22] MEDS: CHOLECALCIFEROL 1000 INTER.UNIT TAB PO SCH (07:49)
[2016-08-22] MEDS: DOXYCYCLINE HYCLATE 100 MG CAP PO SCH (07:49)
[2016-08-22] MEDS: PYRIDOXINE HCL 50 MG TAB PO SCH (07:49)
[2016-08-22] MEDS: FAMOTIDINE 20 MG TAB PO SCH (07:50)
[2016-08-22] MEDS: ATORVASTATIN 40 MG TAB PO SCH (07:50)
[2016-08-22] MEDS: ALLOPURINOL 100 MG TAB PO SCH (07:50)
[2016-08-22] MEDS: INSULIN GLARGINE SC SCH ×2 (08:01→21:25)
[2016-08-22] MEDS: PREGABALIN 75 MG CAP PO SCH ×2 (08:01→20:35)
[2016-08-22 08:18] LABS: BUN/CREATININE RATIO 8.2 (10-20); CALCIUM 8.4 mg/dl (8.5-10.1); CREATININE 8.9 mg/dl (0.60-1.20); MAGNESIUM 2.6 mg/dl (1.8-2.4); POTASSIUM 4.9 mmol/L (3.5-5.1)
[2016-08-22] MEDS: INSULIN ASPART 100 UNITS/ML 3 ML PEN SC SCH ×4 (08:33→20:27)
[2016-08-22] MEDS: HEPARIN SOD (PORCINE) 1000 UNIT/ML 10 ML VIAL IV SCH ×3 (09:00→15:42)
[2016-08-22] MEDS ORDERED: HEPARIN SOD (PORCINE) 1000 UNIT/ML 10 ML VIAL IV SCH (09:00)
[2016-08-22] MEDS: METOPROLOL SUCC 50MG EXT REL TAB PO SCH (09:00)
[2016-08-22] MEDS: HYDROmorphone INJ 0.5 MG/0.5 ML SYR IV PRN ×2 (10:35→19:37)
--- NOTE | 2016-08-22 11:05 | Hospitalist Progress Note ---
Hospitalist Progress Note Date of Service Aug 22, 2016. Subjective Pt evaluation today including: conversation w/ patient, conversation w/ family (- at bedside ), physical exam, chart review, lab review, review of inpatient medication list Saw patient during dialysis today. Biggest complaint at this time is tailbone/neck discomfort from the bed- just given IV Dilaudid 0.5 mg Upset stomach/nausea present, but improving Tolerating diet well +BM this AM +AVF site pain- denies drainage Patient denies any fever, chills, sweats, lightheadedness, dizziness, vision changes, CP, palpitations, edema, SOB, wheezing, cough, abdominal pain, vomiting , diarrhea, urinary symptoms, melena, numbness/tingling, weakness, anxiety/ depression, active bleeding, or new skin discoloration/changes. Spoke w/ at bedside- Concerned about AVF site, reassured him it does not look infectious and will continue to monitor + Doxycycline restarted Patient still complaining of pain- all of which is chronic- discussed we are trying to manage her pain, but some pain will likely always be present Does not feel patient is ready for discharge today due to pain and receiving dialysis today (dialysis on Thursday, pt became hypotensive and felt unwell) Medications Current Inpatient Medications Medications (Trade) Dose Ordered Sig/Duyen Route Start Time Stop Time Status Last Admin Dose Admin Acetaminophen (Tylenol Tab) 650 mg Q4H PRN PO 08/13/16 23:45 09/12/16 23:44 08/17/16 03:19 650 MG Ondansetron HCl (Zofran Inj) 4 mg Q6H PRN IV 08/13/16 23:45 09/12/16 23:44 08/21/16 10:06 4 MG Miscellaneous (Iv Fluids Completed) 1 ea PRN PRN N/A 08/14/16 01:00 08/14/17 00:59 Miscellaneous Information (Consult Glycemic Management Pharmacy) 1 ea UD PRN N/A 08/14/16 08:19 09/13/16 08:18 Allopurinol (Zyloprim Tab) 100 mg DAILY PO 08/14/16 10:00 09/13/16 09:59 08/22/16 07:50 100 MG Atorvastatin Calcium (Lipitor Tab) 40 mg DAILY PO 08/14/16 10:00 09/13/16 09:59 08/22/16 07:50 40 MG Cholecalciferol (Vitamin D Tab) 1,000 inter.unit DAILY PO 08/14/16 10:00 09/13/16 09:59 08/22/16 07:49 1,000 INTER.UNIT Salmeterol Xinafoate/ Fluticasone (Advair Diskus 500/50 Inh) 1 puff BID INH 08/14/16 10:00 09/13/16 09:59 08/22/16 07:46 1 PUFF Albuterol/ Ipratropium (Duoneb) 3 ml Q6H PRN INH 08/14/16 08:00 09/13/16 07:59 Ammonium Lactate (Lac-Hydrin) 1 appl BID EXT 08/14/16 10:00 09/13/16 09:59 08/22/16 07:46 1 APPL Metoprolol Succinate (Toprol Xl Tab) 150 mg DAILY PO 08/14/16 10:00 09/13/16 09:59 08/21/16 08:35 150 MG Miconazole Nitrate (Desenex Powder) 1 appln UD PRN EXT 08/14/16 08:00 09/13/16 07:59 Pantoprazole Sodium (Protonix Tab) 40 mg DAILY PO 08/14/16 10:00 09/13/16 09:59 08/22/16 07:48 40 MG Prednisone (PredniSONE TAB) 15 mg DAILY PO 08/14/16 10:00 09/13/16 09:59 08/22/16 07:50 15 MG Pyridoxine HCl (Vitamin B-6 Tab) 200 mg DAILY PO 08/14/16 10:00 09/13/16 09:59 08/22/16 07:49 200 MG Tiotropium [place] (Spiriva Handihaler Inhaler) 1 puff DAILY INH 08/14/16 10:00 09/13/16 09:59 08/22/16 07:47 1 PUFF Insulin Aspart (novoLOG ASPART) SLIDING SCALE ACHS SC 08/14/16 08:00 09/13/16 07:59 08/22/16 08:33 35 UNITS Calcium Acetate (Phoslo Cap) 667 mg TIDM PO 08/14/16 11:30 09/13/16 11:29 08/22/16 07:47 667 MG Acetaminophen/ Hydrocodone Bitart (Zenda 5/325 Tab) 1 tab Q6H PRN PO 08/14/16 22:30 08/28/16 22:29 08/21/16 11:12 1 TAB Polyethylene (Miralax Powder Packet) 17 gm DAILY PO 08/18/16 10:00 09/12/16 09:59 08/21/16 08:35 17 GM Famotidine (Pepcid Tab) 20 mg DAILY PO 08/19/16 09:00 09/18/16 08:59 08/22/16 07:50 20 MG Hydromorphone HCl (Dilaudid Inj) 0.5 mg Q4 PRN IV 08/20/16 14:15 09/03/16 14:14 08/22/16 10:35 0.5 MG Verapamil HCl (Calan-Sr Tab) 120 mg HS PO 08/21/16 21:00 09/13/16 20:59 08/21/16 21:00 120 MG Pregabalin (Lyrica Cap) 75 mg BID PO 08/21/16 21:00 09/17/16 15:59 08/22/16 08:01 75 MG Doxycycline Hyclate (Vibramycin Cap) 100 mg DAILY PO 08/22/16 09:00 09/21/16 08:59 08/22/16 07:49 100 MG Insulin Glargine (Lantus Vial) see protocol text BID SC 08/21/16 21:00 09/20/16 20:59 08/22/16 08:01 77 UNIT Heparin Sodium (Porcine) (Heparin Iv Bolus) 2,000 unit 0900 IV 08/22/16 09:00 08/22/16 23:59 Heparin Sodium (Porcine) (Heparin Iv Bolus) 1,000 unit Q1H IV 08/22/16 09:00 08/22/16 11:01 Objective Vital Signs Date Time Temp Pulse Resp B/P (MAP) Pulse Ox O2 Delivery O2 Flow Rate FiO2 08/22/16 10:30 75 134/77 08/22/16 10:15 74 125/68 08/22/16 10:00 77 140/69 08/22/16 09:45 72 133/73 08/22/16 09:30 75 125/69 08/22/16 09:15 76 131/66 08/22/16 08:56 78 135/64 08/22/16 07:45 36.4 80 20 125/69 (87) 93 Nasal Cannula 3.0 08/22/16 00:15 100 Nasal Cannula 3.0 BiPAP 08/22/16 00:02 36.9 100 18 110/70 (83) 100 3.0 08/21/16 21:12 36.8 93 18 95/62 (73) 99 Room Air 3.0 08/21/16 16:00 Room Air 08/21/16 14:42 36.8 78 18 113/68 (83) 93 Nasal Cannula 3.0 Physical Exam General Appearance: no apparent distress, + obese Eyes: normal inspection, PERRL ENT: hearing grossly normal Neck: supple Respiratory/Chest: lungs clear, no respiratory distress, no accessory muscle use Cardiovascular: regular rate, rhythm Abdomen: normal bowel sounds, non tender, soft Extremities: + pedal edema, + pertinent finding (TEDs on; chronic stasis dermatitis changes noted to bilateral lower extremities; AVF site brusied/ tender w/out erythema, warmth, or drainage ) 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: alert, normal mood/affect, oriented x 3 Skin: normal color, warm/dry, no rash Laboratory Results Last 24 Hours Test 08/21/16 11:33 08/21/16 16:13 08/21/16 20:08 08/22/16 06:51 Bedside Glucose 93 mg/dl 85 mg/dl 109 mg/dl White Blood Count 11.77 K/uL Red Blood Count 3.60 M/uL Hemoglobin 11.2 g/dL Hematocrit 34.9 % Mean Corpuscular Volume 96.9 fL Mean Corpuscular Hemoglobin 31.1 pg Mean Corpuscular Hemoglobin Concent 32.1 g/dl RDW Standard Deviation 73.9 fL RDW Coefficient of Variation 20.6 % Platelet Count 230 K/uL Mean Platelet Volume 10.2 fL Nucleated RBC Absolute Count (auto) 0.26 K/uL Nucleated Red Blood Cells % 2.2 % Sodium Level 129 mmol/L Potassium Level 4.9 mmol/L Chloride Level 97 mmol/L Carbon Dioxide Level 18 mmol/L Anion Gap 14.0 mmol/L Blood Urea Nitrogen 73 mg/dl Creatinine 8.90 mg/dl Est Creatinine Clear Calc Drug Dose 9.3 ml/min Estimated GFR () 5.0 Estimated GFR (Non- 4.3 BUN/Creatinine Ratio 8.2 Random Glucose 132 mg/dl Calcium Level 8.4 mg/dl Magnesium Level 2.6 mg/dl Test 08/22/16 07:30 Bedside Glucose 135 mg/dl Assessment and Plan 60-year-old female with extensive PMHx presents to the ER with complaints of weakness and frequent falls due to excessive jerkiness. Acute on chronic hypercapnic respiratory failure- STABLE/obesity hypoventilation syndrome/MIKAYLA/COPD- STABLE: - Continue O2- wears 3-4L of O2 supplement at home, and BiPAP HS - DuoNebs q6 hrs PRN - Continue Advair, Spiriva, and Prednisone 15 mg daily - Pulmonary consulted, appreciate recommendations Frequent falls, likely secondary to deconditioning, weakness, jerkiness: - Head CT- Negative for any acute changes - PT/OT- recommending acute inpatient rehab- patient agreeable - Belviq 10 mg BID d/c'd w/ moderate improvement in jerkiness/jitteriness - Nephrology decreased Lyrica CKD stage 5, secondary to diabetic nephropathy/hypertensive sclerosis- requiring HD MWF: - Nephrology consulted, appreciate recommendations -- Renal diet -- Hyperphosphatemia: Phoslo QAC -- Epogen held for hgb ?11.0 - Vascular surgery consulted- left antecubital cephalic vein AV fistula on 08/19 ; PermCath removal on 08/20 -- f/u outpatient in 2 weeks Leukocytosis, likely secondary to postop response- RESOLVING: - No s/s of infection- continue to monitor - Follow CBC Hyperkalemia, secondary to CKD stage V- RESOLVED: Follow PRP Hypercalcemia- noted during previous admission: - Serum free light chain ratio is elevated. UIEP was positive for IgG [place] monoclonal protein during outpatient workup - Followed by Dr. Delong, pending further evaluation Hyponatremia- STABLE Cor pulmonale: - Last echo 07/25/15: Hyperdynamic LV systolic function. Mild concentric LV hypertrophy. LV diastolic dysfunction. Mild RV dilatation and systolic dysfunction. Mild tricuspid regurgitation. Mildly elevated RV systolic pressure. Normal central venous pressure. Ejection Fraction = >70 % - Daily weights, I's and O's Chronic venous insufficiency: - Elevate legs. TEDs - Per patient, lower extremity edema has worsened since Dr. Donelan d/c'd Bumex treatment HTN- CONTROLLED: - Continue Toprol-XL 150 mg - Hypotensive episodes- Verapamil CR 240 mg decreased to 120 mg HS Dyslipidemia: Lipitor 40 mg daily DM- HbA1c 6.3% on 05/20/16: - Lantus 85 u BID - BSG ACHS w/ SSI - Pharmacy consulted for glycemic management Gout- ASYMPTOMATIC: Allopurinol 100 mg daily Peripheral neuropathy/chronic pain: - Pregabalin 150 mg BID decreased to 75 mg daily by nephrology- patient complains of continued pain w/ decrease in medication- discussed w/ nephrology, increase to BID - Zenda q6 hrs PRN pain - IV Dilaudid 0.5 mg q4 hrs PRN pain- Dr. Krishna to discuss w/ patient/ about transitioning off IV pain medication today Chronic suppressive therapy- follows w/ ID: Continue Doxycycline 100 mg daily GI Prophylaxis: Protonix, Maalox PRN, IV Zofran PRN, Colace and/or Milk of Mag PRN, MiraLAX daily DVT Prophylaxis: Heparin Code Status: LEVEL I, FULL Dispo: Discharge to [facility] when medically stable, hopefully tomorrow- medical social worker following
--- NOTE | 2016-08-22 11:29 | Pharmacy Progress Note ---
Glycemic Control Progress Note Date of Service Aug 22, 2016. Scope Glycemic Pharmacist consulted for glycemic control to write orders per [facility] inpatient glycemic control protocol. Objective Accuchecks BSG (last 24hrs): Test 08/21/16 11:33 08/21/16 16:13 08/21/16 20:08 08/22/16 06:51 Bedside Glucose 93 mg/dl (70-90) 85 mg/dl (70-90) 109 mg/dl (70-90) Random Glucose 132 mg/dl (70-99) Test 08/22/16 07:30 Bedside Glucose 135 mg/dl (70-90) HbA1c: 6.3% on 05/20/16 * Considered re-ordering and updating value however, A1c is likely somewhat unreliable in ESRD patients d/t interactions between the A1c analyzing technique and high levels of urea in ESRD, reduced RBC life span, iron deficiency anemia, and EPO administration. HbA1c > 7.5% in ESRD patient may overestimate the extent of hyperglycemia in ESRD patients. Recent Pertinent Medications The patient is currently receiving: * Basal insulin: Lantus 77-80 units every 12 hours * Correctional Insulin: Novolog Correction per scale ACHS Goal Range: Low 110 mg/dL - High 140 mg/dL Correction Factor: 6 mg/dL/unit * Prandial insulin: Per carb ratio of 1 unit per 1.5 grams CHO consumed Outpatient Anti-Diabetic Meds High doses of Basal & bolus insulin {300+ units/day} Assessment & Plan ASSESSMENT: * See progress note from 08/14/16 for more background info, in short: * Pt receiving SQ basal bolus insulin regimen for hyperglycemia secondary to baseline DM (uses extremely large doses of insulin as an outpatient),stress/ infection, and prednisone * Patient is currently receiving an average of 240 units of insulin per day * 162 units of basal insulin * 78 units of prandial/correctional insulin * BSGs ranging 85 - 135 mg/dl over the past 24hrs * Changes needed to insulin regimen: * AM Fasting BSG = 135 mg/dl. This is in goal range for patient based on inpatient targets and co-morbidities. Therefore Basal insulin needs no changes. * Post-prandial BSGs are slightly below goal range but suspect this is d/t too much basal insulin which is covering some prandial needs. Will continue current parameters which have worked well in previous admissions. * Total daily dose = 240 units. This dosing is yielding adequate glycemic control PLAN FOR INPATIENT GLYCEMIC CONTROL: * Basal insulin * Lantus 80 units SQ BID * Bolus insulin * NovoLog per scale ACHS or Q6hrs while NPO * Goal Range: Low 110 mg/dL - High 140 mg/dL * Correction Factor: 6 mg/dL/unit * Nutritional / Prandial insulin per carb ratio of 1 unit per 1.5 grams CHO consumed * Please note that the plan above was derived based on current level of insulin resistance and hospital stress. These recommendations are appropriate for inpatient admission only. Plan of care upon discharge will need to be reassessed to avoid potential outpatient hypo/hyperglycemia. Thank you.
[2016-08-22] MEDS: ONDANSETRON INJ 2 MG/ML 2 ML VIAL IV PRN (13:59)
--- NOTE | 2016-08-22 15:05 | PROGRESS NOTE ---
DATE: 08/22/2016 PROBLEM LIST: 1. Acute on chronic respiratory failure. 2. Obesity hypoventilation syndrome. 3. Obstructive sleep apnea. 4. Chronic obstructive pulmonary disease. 5. Renal failure on dialysis. SUBJECTIVE: The patient reports that from a breathing standpoint, pulmonary standpoint, she is doing well. She is not having any significant cough or congestion at this time. No wheezing, no increased shortness of breath, no chest heaviness or tightness. Very poorly following dialysis. She continues to have some blood pressure issues. Otherwise, no concerns or problems. No chest pain, no abdominal pain, no nausea or vomiting, no indigestion or diarrhea. OBJECTIVE: GENERAL: The patient is a 60-year-old female in no acute distress. She is looking a little bit tired and run down. She is alert and oriented x3. Mood is good. Affect is good. VITAL SIGNS: Temp 36.4, pulse 80, respirations 20, blood pressure is 125/69, pulse ox 93% on 3 liters. HEENT: Normocephalic, atraumatic. Pupils equal, round and react to light and accommodation. Extraocular movements are intact. [place] moist gingival and buccal mucosa. NECK: Supple. No mass, no adenopathy or bruit. CHEST: Diminished breath sounds bilaterally, although they are clear. There is no wheeze, rale or rhonchi. CARDIOVASCULAR: Regular rate and rhythm. There are no murmurs, gallops or rubs. ABDOMEN: Obese, soft, nontender. No guarding, rigidity or organomegaly. EXTREMITIES: No erythema or edema. LABORATORY DATA: Shows white count 11,000, H&H of 11.2 and 34.9, platelet count 230,000. Did have creatinine done today was 8.9 prior to dialysis. No new imaging data. IMPRESSION: 1. This is a 60-year-old female with multiple medical problems from a pulmonary standpoint with acute on chronic respiratory failure. She is doing well. She does have CO2 retention that is stable at this time. For now she is to continue her meds as they are 2. Obesity hypoventilation syndrome. She is on BiPAP for this. She is to continue this. 3. Chronic obstructive pulmonary disease. 4. Renal failure on dialysis. PLAN: 1. At this point, continue her Trilogy as it is. 2. Continue her routine medications which include Advair, Spiriva. 3. She is on prednisone 15 mg daily, continue this. 4. Continue DuoNeb. Will continue to follow through hospitalization. MEGHANA
--- NOTE | 2016-08-22 17:54 | Dialysis Progress Note ---
Hemodialysis Note Date of Service Aug 22, 2016. Chief Complaint ESRD Subjective Hemalatha was seen and evaluated this morning during hemodialysis. She was tolerating dialysis well. Net UF 1.5 L. Good Qb via TDC. She continues to experience weakness and lightheadedness following dialysis treatment. BP appropriate. Appetite good. Pain control continues to improve. Review of Systems A complete review of systems was performed. Pertinent positives are noted above. All other systems are negative. Vital Signs Last 8 Hrs Date Time Temp Pulse Resp B/P (MAP) Pulse Ox O2 Delivery O2 Flow Rate FiO2 08/22/16 16:00 Nasal Cannula 3.0 08/22/16 15:19 36.7 86 18 105/62 (76) 94 Nasal Cannula 3.0 08/22/16 13:20 36.6 88 139/70 (93) 08/22/16 12:45 85 130/68 08/22/16 12:30 83 148/69 08/22/16 12:15 81 149/66 08/22/16 12:00 82 141/66 08/22/16 11:45 81 143/75 08/22/16 11:30 77 132/69 08/22/16 11:15 76 131/72 08/22/16 11:00 77 138/67 08/22/16 10:45 75 135/73 08/22/16 10:30 75 134/77 08/22/16 10:15 74 125/68 08/22/16 10:00 77 140/69 I & O 24-Hour Column 08/23/16 08:00 Output Total 1500 ml Balance -1500 ml Last Recorded Weight Weight (Kilograms): 139.000 Physical Exam General Appearance: WD/WN, + obese Head: normocephalic, atraumatic Eyes: normal inspection, sclerae normal ENT: normal ENT inspection, pharynx normal Neck: supple, + pertinent finding (TDC R IJ) Respiratory/Chest: no respiratory distress, no accessory muscle use, + decreased breath sounds Cardiovascular: regular rate, rhythm, no gallop Abdomen/GI: non tender, soft Extremities/Musculoskelatal: normal inspection, + pedal edema, + pertinent finding (AVF with good bruit) Neurologic/Psych: alert, oriented x 3 Social History Smoking Status: Former smoker Drug Use: none Marital Status: Housing Status: lives with family Occupation: unemployed Laboratory Results Past 24 Hours 08/22/16 06:51 08/22/16 06:51 Test 08/21/16 20:08 08/22/16 06:51 08/22/16 07:30 08/22/16 11:35 Bedside Glucose 109 mg/dl (70-90) 135 mg/dl (70-90) 105 mg/dl (70-90) Red Blood Count 3.60 M/uL (4.2-5.4) Mean Corpuscular Volume 96.9 fL (80-100) Mean Corpuscular Hemoglobin 31.1 pg (25-34) Mean Corpuscular Hemoglobin Concent 32.1 g/dl (32-36) RDW Standard Deviation 73.9 fL (36.4-46.3) RDW Coefficient of Variation 20.6 % (11.5-14.5) Mean Platelet Volume 10.2 fL (7.4-10.4) Nucleated RBC Absolute Count (auto) 0.26 K/uL (0-0) Nucleated Red Blood Cells % 2.2 % Anion Gap 14.0 mmol/L (3-11) Est Creatinine Clear Calc Drug Dose 9.3 ml/min Estimated GFR () 5.0 Estimated GFR (Non- 4.3 BUN/Creatinine Ratio 8.2 (10-20) Calcium Level 8.4 mg/dl (8.5-10.1) Magnesium Level 2.6 mg/dl (1.8-2.4) Allergies Coded Allergies: Daptomycin (Verified Allergy, Mild, HIVES, 07/24/16) itching Iodine (Verified Allergy, Unknown, 07/24/16) Shellfish (Verified Allergy, Unknown, 07/24/16) Sulfamethoxazole w/Trimethoprim (Verified Allergy, Unknown, RASH, 07/24/16) Codeine (Verified Adverse Reaction, Unknown, NAUSEA, 08/14/16) has tolerated morphine Medications Current Inpatient Medications Medications (Trade) Dose Ordered Sig/Duyen Route Start Time Stop Time Status Last Admin Dose Admin Acetaminophen (Tylenol Tab) 650 mg Q4H PRN PO 08/13/16 23:45 09/12/16 23:44 08/17/16 03:19 650 MG Ondansetron HCl (Zofran Inj) 4 mg Q6H PRN IV 08/13/16 23:45 09/12/16 23:44 08/22/16 13:59 4 MG Miscellaneous (Iv Fluids Completed) 1 ea PRN PRN N/A 08/14/16 01:00 08/14/17 00:59 Miscellaneous Information (Consult Glycemic Management Pharmacy) 1 ea UD PRN N/A 08/14/16 08:19 09/13/16 08:18 Allopurinol (Zyloprim Tab) 100 mg DAILY PO 08/14/16 10:00 09/13/16 09:59 08/22/16 07:50 100 MG Atorvastatin Calcium (Lipitor Tab) 40 mg DAILY PO 08/14/16 10:00 09/13/16 09:59 08/22/16 07:50 40 MG Cholecalciferol (Vitamin D Tab) 1,000 inter.unit DAILY PO 08/14/16 10:00 09/13/16 09:59 08/22/16 07:49 1,000 INTER.UNIT Salmeterol Xinafoate/ Fluticasone (Advair Diskus 500/50 Inh) 1 puff BID INH 08/14/16 10:00 09/13/16 09:59 08/22/16 07:46 1 PUFF Albuterol/ Ipratropium (Duoneb) 3 ml Q6H PRN INH 08/14/16 08:00 09/13/16 07:59 Ammonium Lactate (Lac-Hydrin) 1 appl BID EXT 08/14/16 10:00 09/13/16 09:59 08/22/16 07:46 1 APPL Metoprolol Succinate (Toprol Xl Tab) 150 mg DAILY PO 08/14/16 10:00 09/13/16 09:59 08/21/16 08:35 150 MG Miconazole Nitrate (Desenex Powder) 1 appln UD PRN EXT 08/14/16 08:00 09/13/16 07:59 Pantoprazole Sodium (Protonix Tab) 40 mg DAILY PO 08/14/16 10:00 09/13/16 09:59 08/22/16 07:48 40 MG Prednisone (PredniSONE TAB) 15 mg DAILY PO 08/14/16 10:00 09/13/16 09:59 08/22/16 07:50 15 MG Pyridoxine HCl (Vitamin B-6 Tab) 200 mg DAILY PO 08/14/16 10:00 09/13/16 09:59 08/22/16 07:49 200 MG Tiotropium [place] (Spiriva Handihaler Inhaler) 1 puff DAILY INH 08/14/16 10:00 09/13/16 09:59 08/22/16 07:47 1 PUFF Insulin Aspart (novoLOG ASPART) SLIDING SCALE ACHS SC 08/14/16 08:00 09/13/16 07:59 08/22/16 17:41 47 UNITS Calcium Acetate (Phoslo Cap) 667 mg TIDM PO 08/14/16 11:30 09/13/16 11:29 08/22/16 17:38 667 MG Acetaminophen/ Hydrocodone Bitart ([place] 5/325 Tab) 1 tab Q6H PRN PO 08/14/16 22:30 08/28/16 22:29 08/21/16 11:12 1 TAB Polyethylene (Miralax Powder Packet) 17 gm DAILY PO 08/18/16 10:00 09/12/16 09:59 08/21/16 08:35 17 GM Famotidine (Pepcid Tab) 20 mg DAILY PO 08/19/16 09:00 09/18/16 08:59 08/22/16 07:50 20 MG Hydromorphone HCl (Dilaudid Inj) 0.5 mg Q4 PRN IV 08/20/16 14:15 09/03/16 14:14 08/22/16 10:35 0.5 MG Verapamil HCl (Calan-Sr Tab) 120 mg HS PO 08/21/16 21:00 09/13/16 20:59 08/21/16 21:00 120 MG Pregabalin (Lyrica Cap) 75 mg BID PO 08/21/16 21:00 09/17/16 15:59 08/22/16 08:01 75 MG Doxycycline Hyclate (Vibramycin Cap) 100 mg DAILY PO 08/22/16 09:00 09/21/16 08:59 08/22/16 07:49 100 MG Heparin Sodium (Porcine) (Heparin Iv Bolus) 2,000 unit 0900 IV 08/22/16 09:00 08/22/16 23:59 Insulin Glargine (Lantus Vial) 80 unit BID SC 08/22/16 21:00 09/21/16 20:59 Impression (1) ESRD on hemodialysis (2) Hypercapnic respiratory failure (3) CO2 narcosis (4) Obesity hypoventilation syndrome (5) Hyperkalemia (6) Morbid obesity with BMI of 50.0-59.9, adult (7) Arthritis (8) Hyperphosphatemia Hemalatha is a 60-year-old female with morbid obesity, obesity hypoventilation syndrome, recurrent hypercapnia, advanced chronic kidney disease requiring [employer], right heart failure. She has had multiple hospitalizations for volume overload and electrolyte abnormalities associated with diuretics. Hemalatha started hemodialysis during hospitalization in June 2016. Permcath was placed 07/25. She completed her first dialysis treatment on . She is on hemodialysis at [facility] TTS schedule. She currently dialyzes via a TDC. AVF created 08/19/[address] Thapa. Recommendations ESRD: -- AVF healing appropriately with good bruit -- HD MWF; tolerated well today -- Volume status and blood pressure currently appropriate -- Renal diet, fluid restriction reviewed with patient today HYPERTENSION: -- BP appropriate -- Decrease verapamil to 120 mg daily yesterday -- If patient continues to experience lightheadedness and hypotension with HD, will adjust beta shreyas CO2 NARCOSIS / OBESITY HYPOVENTILATION SYNDROME: -- Patient tolerating BiPAP HYPERPHOSPHATEMIA: -- Phoslo QAC with monitoring of serum calcium (noted history of hypercalcemia) ARTHRITIS/CHRONIC PAIN: -- Lyrica dose has been reduced to 75 mg daily, take after HD on dialysis days -- Discourage aggressive use of opiates given concerns about chronic CO2 retention ANEMIA: -- Epogen held for hemoglobin >11 OTHER: -- Physical therapy consultation for strengthening. -- Patient is interested in [facility] following hospitalization
[2016-08-22] MEDS: VERAPAMIL HCL 120 MG TABCR PO SCH (20:26)
[2016-08-23 00:01] VITALS: BP 131/69; PULSE 100; TEMP 36.6; O2SAT 94
[2016-08-23] MEDS: HYDROmorphone INJ 0.5 MG/0.5 ML SYR IV PRN ×4 (00:34→22:17)
[2016-08-23 07:27] VITALS: BP 100/55; PULSE 95; TEMP 36.8; O2SAT 94
[2016-08-23 07:50] LABS: HEMATOCRIT 33.9 % (37-47); MEAN CELL VOLUME 96.6 fL (80-100); MEAN CORPUSCULAR HEMOGLOBIN 30.8 pg (25-34); MEAN CORPUSCULAR HGB CONC 31.9 g/dl (32-36); MEAN PLATELET VOLUME 9.5 fL (7.4-10.4); PLATELET COUNT 199 K/uL (130-400); RED BLOOD COUNT 3.51 M/uL (4.2-5.4); WHITE BLOOD COUNT 11.07 K/uL (4.8-10.8)
[2016-08-23] MEDS: METOPROLOL SUCC 50MG EXT REL TAB PO SCH (07:56)
[2016-08-23] MEDS: ALLOPURINOL 100 MG TAB PO SCH (07:57)
[2016-08-23] MEDS: ATORVASTATIN 40 MG TAB PO SCH (07:57)
[2016-08-23] MEDS: PREGABALIN 75 MG CAP PO SCH ×2 (07:57→22:12)
[2016-08-23] MEDS: PYRIDOXINE HCL 50 MG TAB PO SCH (07:58)
[2016-08-23] MEDS: FLUTICASONE/SALMETEROL (ADVAIR) 500/50 INH 14 PUFF INH SCH ×2 (07:58→22:07)
[2016-08-23] MEDS: DOXYCYCLINE HYCLATE 100 MG CAP PO SCH (07:58)
[2016-08-23] MEDS: CALCIUM ACETATE 667MG GELCAP PO SCH ×3 (07:58→17:49)
[2016-08-23] MEDS: FAMOTIDINE 20 MG TAB PO SCH (07:58)
[2016-08-23] MEDS: TIOTROPIUM BROMIDE 5 PUFF/90 MCG INH INH SCH (07:59)
[2016-08-23] MEDS: POLYETHYLENE (MIRALAX) 17 GM PACK PO SCH (07:59)
[2016-08-23] MEDS: CHOLECALCIFEROL 1000 INTER.UNIT TAB PO SCH (07:59)
[2016-08-23] MEDS: PANTOprazole SOD 40 MG TAB PO SCH (07:59)
[2016-08-23] MEDS: AMMONIUM LACTATE 12% LOTION 225 GM BTL EXT SCH ×2 (08:00→21:00)
[2016-08-23 08:28] LABS: BUN/CREATININE RATIO 6.9 (10-20); CALCIUM 8.1 mg/dl (8.5-10.1); CREATININE 6.6 mg/dl (0.60-1.20); MAGNESIUM 2.3 mg/dl (1.8-2.4); POTASSIUM 3.8 mmol/L (3.5-5.1)
[2016-08-23] MEDS: INSULIN GLARGINE SC SCH ×2 (08:57→22:07)
[2016-08-23] MEDS: INSULIN ASPART 100 UNITS/ML 3 ML PEN SC SCH ×4 (08:57→22:06)
[2016-08-23] MEDS: ONDANSETRON INJ 2 MG/ML 2 ML VIAL IV PRN ×2 (10:44→18:47)
--- NOTE | 2016-08-23 11:11 | Nephrology Progress Note ---
Nephrology Progress Note Date of Service Aug 23, 2016. Chief Complaint Follow-up for end-stage renal disease on hemodialysis. Subjective Jazmin was seen and examined in her room this morning. She is otherwise feeling well, denies shortness of breath or chest pain however she continues to feel poorly after dialysis. Yesterday after dialysis her blood pressure systolic was 100 and had she was having nausea which improved with Zofran. Review of Systems A complete review of systems was performed. Pertinent positives are noted above. All other systems are negative. Vital Signs Last 8 Hrs Date Time Temp Pulse Resp B/P (MAP) Pulse Ox O2 Delivery O2 Flow Rate FiO2 08/23/16 07:27 36.8 95 18 100/55 (70) 94 Room Air Last Recorded Weight Weight (Kilograms): 139.000 Physical Exam GENERAL: Middle-aged female, AAA x 3, pleasant, morbidly obese, not in any distress. NECK: Supple, no JVD. RESPIRATORY: Normal breathing efforts, no accessory muscle use, clear to auscultation bilaterally, no wheezes or rales. CARDIOVASCULAR: S1, S2 normal, rate rhythm regular. EXTREMITY: 1+ bilateral lower extremity edema NEURO: speech fluent. PSYCHIATRY: Normal mood and judgment Family History Cancer Diabetes mellitus Gallbladder disease Heart disease Lung disease Social History Smoking Status: Former smoker Drug Use: none Marital Status: Housing Status: lives with family Occupation: unemployed Laboratory Results Past 24 Hours 08/23/16 07:38 08/23/16 07:38 Test 08/22/16 11:35 08/22/16 16:24 08/22/16 19:57 08/23/16 07:38 Bedside Glucose 105 mg/dl (70-90) 123 mg/dl (70-90) 87 mg/dl (70-90) Red Blood Count 3.51 M/uL (4.2-5.4) Mean Corpuscular Volume 96.6 fL (80-100) Mean Corpuscular Hemoglobin 30.8 pg (25-34) Mean Corpuscular Hemoglobin Concent 31.9 g/dl (32-36) RDW Standard Deviation 74.0 fL (36.4-46.3) RDW Coefficient of Variation 20.9 % (11.5-14.5) Mean Platelet Volume 9.5 fL (7.4-10.4) Nucleated RBC Absolute Count (auto) 0.25 K/uL (0-0) Nucleated Red Blood Cells % 2.2 % Anion Gap 14.0 mmol/L (3-11) Est Creatinine Clear Calc Drug Dose 12.5 ml/min Estimated GFR () 7.1 Estimated GFR (Non- 6.2 BUN/Creatinine Ratio 6.9 (10-20) Calcium Level 8.1 mg/dl (8.5-10.1) Magnesium Level 2.3 mg/dl (1.8-2.4) Test 08/23/16 07:41 Bedside Glucose 137 mg/dl (70-90) Allergies Coded Allergies: Daptomycin (Verified Allergy, Mild, HIVES, 07/24/16) itching Iodine (Verified Allergy, Unknown, 07/24/16) Shellfish (Verified Allergy, Unknown, 07/24/16) Sulfamethoxazole w/Trimethoprim (Verified Allergy, Unknown, RASH, 07/24/16) Codeine (Verified Adverse Reaction, Unknown, NAUSEA, 08/14/16) has tolerated morphine Medications Current Inpatient Medications Medications (Trade) Dose Ordered Sig/Duyen Route Start Time Stop Time Status Last Admin Dose Admin Acetaminophen (Tylenol Tab) 650 mg Q4H PRN PO 08/13/16 23:45 09/12/16 23:44 08/17/16 03:19 650 MG Ondansetron HCl (Zofran Inj) 4 mg Q6H PRN IV 08/13/16 23:45 09/12/16 23:44 08/23/16 10:44 4 MG Miscellaneous (Iv Fluids Completed) 1 ea PRN PRN N/A 08/14/16 01:00 08/14/17 00:59 Miscellaneous Information (Consult Glycemic Management Pharmacy) 1 ea UD PRN N/A 08/14/16 08:19 09/13/16 08:18 Allopurinol (Zyloprim Tab) 100 mg DAILY PO 08/14/16 10:00 09/13/16 09:59 08/23/16 07:57 100 MG Atorvastatin Calcium (Lipitor Tab) 40 mg DAILY PO 08/14/16 10:00 09/13/16 09:59 08/23/16 07:57 40 MG Cholecalciferol (Vitamin D Tab) 1,000 inter.unit DAILY PO 08/14/16 10:00 7/15/17 09:59 08/23/16 07:59 1,000 INTER.UNIT Salmeterol Xinafoate/ Fluticasone (Advair Diskus 500/50 Inh) 1 puff BID INH 08/14/16 10:00 09/13/16 09:59 08/23/16 07:58 1 PUFF Albuterol/ Ipratropium (Duoneb) 3 ml Q6H PRN INH 08/14/16 08:00 09/13/16 07:59 Ammonium Lactate (Lac-Hydrin) 1 appl BID EXT 08/14/16 10:00 09/13/16 09:59 08/23/16 08:00 1 APPL Metoprolol Succinate (Toprol Xl Tab) 150 mg DAILY PO 08/14/16 10:00 09/13/16 09:59 08/21/16 08:35 150 MG Miconazole Nitrate (Desenex Powder) 1 appln UD PRN EXT 08/14/16 08:00 09/13/16 07:59 Pantoprazole Sodium (Protonix Tab) 40 mg DAILY PO 08/14/16 10:00 09/13/16 09:59 08/23/16 07:59 40 MG Prednisone (PredniSONE TAB) 15 mg DAILY PO 08/14/16 10:00 09/13/16 09:59 08/23/16 07:57 15 MG Pyridoxine HCl (Vitamin B-6 Tab) 200 mg DAILY PO 08/14/16 10:00 09/13/16 09:59 08/23/16 07:58 200 MG Tiotropium [place] (Spiriva Handihaler Inhaler) 1 puff DAILY INH 08/14/16 10:00 09/13/16 09:59 08/23/16 07:59 1 PUFF Insulin Aspart (novoLOG ASPART) SLIDING SCALE ACHS SC 08/14/16 08:00 09/13/16 07:59 08/23/16 08:57 21 UNITS Calcium Acetate (Phoslo Cap) 667 mg TIDM PO 08/14/16 11:30 09/13/16 11:29 08/23/16 07:58 667 MG Acetaminophen/ Hydrocodone Bitart ([place] 5/325 Tab) 1 tab Q6H PRN PO 08/14/16 22:30 08/28/16 22:29 08/21/16 11:12 1 TAB Polyethylene (Miralax Powder Packet) 17 gm DAILY PO 08/18/16 10:00 09/12/16 09:59 08/21/16 08:35 17 GM Famotidine (Pepcid Tab) 20 mg DAILY PO 08/19/16 09:00 09/18/16 08:59 08/23/16 07:58 20 MG Hydromorphone HCl (Dilaudid Inj) 0.5 mg Q4 PRN IV 08/20/16 14:15 09/03/16 14:14 08/23/16 07:57 0.5 MG Verapamil HCl (Calan-Sr Tab) 120 mg HS PO 08/21/16 21:00 09/13/16 20:59 08/22/16 20:26 120 MG Pregabalin (Lyrica Cap) 75 mg BID PO 08/21/16 21:00 09/17/16 15:59 08/23/16 07:57 75 MG Doxycycline Hyclate (Vibramycin Cap) 100 mg DAILY PO 08/22/16 09:00 09/21/16 08:59 08/23/16 07:58 100 MG Insulin Glargine (Lantus Vial) 80 unit BID SC 08/22/16 21:00 09/21/16 20:59 08/23/16 08:57 80 UNIT Impression (1) ESRD on hemodialysis (2) Hypercapnic respiratory failure (3) CO2 narcosis (4) Obesity hypoventilation syndrome (5) Hyperkalemia (6) Morbid obesity with BMI of 50.0-59.9, adult (7) Arthritis (8) Hyperphosphatemia Hemalatha is a 60-year-old female with morbid obesity, obesity hypoventilation syndrome, recurrent hypercapnia, 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 She has had multiple hospitalizations for volume overload and electrolyte abnormalities associated with diuretics. Hemalatha started hemodialysis during hospitalization in June 2016. Permcath was placed 07/25. She completed her first dialysis treatment on . She is on hemodialysis at [facility] TTS schedule. She currently dialyzes via a TDC. AVF created 08/19/[address] Thapa. Recommendations ESRD: -- AVF healing appropriately with good bruit -- HD MWF; tolerated well today -- Volume status and blood pressure currently appropriate -- will monitor over the weekend and plan for next dialysis Thursday. HYPERTENSION: -- BP appropriate -- Decrease verapamil to 120 mg daily yesterday -- advise patient to hold blood pressure medications in the morning on the day of dialysis to avoid hypotension during dialysis and allow for ultra filtration CO2 NARCOSIS / OBESITY HYPOVENTILATION SYNDROME: -- Patient tolerating BiPAP HYPERPHOSPHATEMIA: -- Phoslo QAC with monitoring of serum calcium (noted history of hypercalcemia) ARTHRITIS/CHRONIC PAIN: -- Lyrica dose has been reduced to 75 mg daily, take after HD on dialysis days -- Discourage aggressive use of opiates given concerns about chronic CO2 retention ANEMIA: -- Epogen held for hemoglobin >11 OTHER: -- Physical therapy consultation for strengthening. -- Patient is interested in [facility] following hospitalization
--- NOTE | 2016-08-23 11:50 | Progress Note ---
Subjective Date of Service: Aug 23, 2016. Subjective Pt evaluation today including: conversation w/ patient, conversation w/ family , physical exam, chart review, lab review, review of studies, conversation w/ natural remedy consultant, review of inpatient medication list Reported some nausea this morning otherwise doing fine Sitting up in chair Play game in computer Problem List Medical Problems: (1) Altered mental status Status: Acute (2) Anasarca Status: Acute (3) Anasarca Status: Acute (4) Bilateral cellulitis of lower leg Status: Acute (5) Bilateral lower leg cellulitis Status: Acute (6) Change in mental status Status: Acute (7) Chronic renal failure Status: Acute (8) CO2 retention Status: Acute (9) Dehydration Status: Acute (10) Dyspnea on exertion Status: Acute (11) Fall Status: Acute (12) Fever Status: Acute (13) Fever Status: Acute (14) Generalized weakness Status: Acute (15) Hypercarbia Status: Acute (16) Hyperkalemia Status: Acute (17) Hypokalemia Status: Acute (18) Hypoxemia Status: Acute (19) Hypoxia Status: Acute (20) Lumbar strain Status: Acute (21) Respiratory failure Status: Acute (22) Respiratory failure with hypercapnia Status: Acute (23) Weakness Status: Acute (24) Weight gain Status: Acute (25) Wrist pain Status: Acute Review of Systems Constitutional: + weakness, + fatigue, No fever, No chills, No sweats, No weight loss, No problem reported Eyes: No worsening of vision, No eye pain, No redness, No discharge, No diplopia ENT: No hearing loss, No unusual epistaxis, No nasal symptoms, No sore throat, No tinnitus, No dental problems, No trouble swallowing Respiratory: + shortness of breath, No cough, No sputum, No wheezing, No dyspnea on exertion, No dyspnea at rest, No hemoptysis Cardiac: + edema (bilateral lower extremities is not new), No chest pain, No orthopnea, No PND, No claudication, No palpitations Abdomen: No pain, No nausea, No vomiting, No diarrhea, No constipation Musculoskeletal: + joint pain (lower back pain is not new), No muscle pain, No swelling, No calf pain Female : No dysuria, No urinary frequency, No hematuria, No incontinence, No abnormal vaginal bleeding, No vaginal discharge Neurologic: No memory loss, No paralysis, No weakness, No numbness/tingling, No vertigo, No balance problems Psychiatric: No depression symptoms, No anhedonism, No anxiety, No insomnia, No substance abuse Heme: No abnormal bleeding/bruising, No clotting problems, No swollen lymph nodes, No night sweats Endo: No fatigue, No excessive thirst, No excessive urination Skin: No rash, No itch, No new/changing skin lesions, No color change, No bleeding Objective Vital Signs Date Time Temp Pulse Resp B/P (MAP) Pulse Ox O2 Delivery O2 Flow Rate FiO2 08/23/16 07:27 36.8 95 18 100/55 (70) 94 Room Air 08/23/16 00:01 36.6 100 18 131/69 (89) 94 3.0 08/22/16 23:59 CPAP 3.0 08/22/16 20:30 94 Nasal Cannula 3.0 BiPAP 08/22/16 16:00 Nasal Cannula 3.0 08/22/16 15:19 36.7 86 18 105/62 (76) 94 Nasal Cannula 3.0 08/22/16 13:20 36.6 88 139/70 (93) 08/22/16 12:45 85 130/68 08/22/16 12:30 83 148/69 08/22/16 12:15 81 149/66 08/22/16 12:00 82 141/66 08/22/16 11:45 81 143/75 Physical Exam General Appearance: WD/WN, no apparent distress, + obese Eyes: normal inspection, PERRL, EOMI, sclerae normal ENT: normal ENT inspection, hearing grossly normal, pharynx normal Neck: supple, no adenopathy, thyroid normal, no JVD, no carotid bruits, trachea midline Respiratory/Chest: chest non-tender, lungs clear, normal breath sounds, no respiratory distress, no accessory muscle use, + decreased breath sounds Cardiovascular: regular rate, rhythm, no edema, no gallop, no JVD, no murmur Abdomen: normal bowel sounds, non tender, soft, no organomegaly, no pulsatile mass Extremities: normal range of motion, non-tender, normal inspection, no pedal edema, no calf tenderness, normal capillary refill, pelvis stable, + swelling ( bilateral feet is not new) 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, no motor/sensory deficits, alert, normal mood/affect, oriented x 3 Skin: normal color, warm/dry, no rash Lymphatic: no adenopathy Laboratory Results Last 24 Hours Test 08/22/16 16:24 08/22/16 19:57 08/23/16 07:38 08/23/16 07:41 Bedside Glucose 123 mg/dl 87 mg/dl 137 mg/dl White Blood Count 11.07 K/uL Red Blood Count 3.51 M/uL Hemoglobin 10.8 g/dL Hematocrit 33.9 % Mean Corpuscular Volume 96.6 fL Mean Corpuscular Hemoglobin 30.8 pg Mean Corpuscular Hemoglobin Concent 31.9 g/dl RDW Standard Deviation 74.0 fL RDW Coefficient of Variation 20.9 % Platelet Count 199 K/uL Mean Platelet Volume 9.5 fL Nucleated RBC Absolute Count (auto) 0.25 K/uL Nucleated Red Blood Cells % 2.2 % Sodium Level 132 mmol/L Potassium Level 3.8 mmol/L Chloride Level 96 mmol/L Carbon Dioxide Level 22 mmol/L Anion Gap 14.0 mmol/L Blood Urea Nitrogen 46 mg/dl Creatinine 6.60 mg/dl Est Creatinine Clear Calc Drug Dose 12.5 ml/min Estimated GFR () 7.1 Estimated GFR (Non- 6.2 BUN/Creatinine Ratio 6.9 Random Glucose 135 mg/dl Calcium Level 8.1 mg/dl Magnesium Level 2.3 mg/dl Assessment and Plan 60-year-old female with extensive PMHx presents to the ER with complaints of weakness and frequent falls due to excessive jerkiness. Acute on chronic hypercapnic respiratory failure- STABLE/obesity hypoventilation syndrome/MIKAYLA/COPD: Stable and in baseline - Continue O2- wears 3-4L of O2 supplement at home, and BiPAP HS - DuoNebs q6 hrs PRN - Continue Advair, Spiriva, and Prednisone 15 mg daily which is home dose - Pulmonary consulted, appreciate recommendations Frequent falls, likely secondary to deconditioning, weakness, jerkiness: - Head CT- Negative for any acute changes - PT/OT- recommending acute inpatient rehab- patient agreeable - Belviq 10 mg BID d/c'd w/ moderate improvement in jerkiness/jitteriness - Nephrology decreased Lyrica CKD stage 5, secondary to diabetic nephropathy/hypertensive sclerosis- requiring HD MWF: - Nephrology consulted, appreciate recommendations -- Renal diet -- Hyperphosphatemia: [facility] - Vascular surgery consulted- left antecubital cephalic vein AV fistula on 2016; PermCath removal on 08/20 -- f/u outpatient in 2 weeks Leukocytosis, likely secondary to postop response- RESOLVING: - No s/s of infection- Hyperkalemia, secondary to CKD stage V- RESOLVED: Follow PRP Hypercalcemia- noted during previous admission: - Serum free light chain ratio is elevated. UPEP was positive for IgG [place] monoclonal protein during outpatient workup - Followed by Dr. Delong, pending further evaluation Hyponatremia- STABLE Cor pulmonale: - Last echo 07/25/15: Hyperdynamic LV systolic function. Mild concentric LV hypertrophy. LV diastolic dysfunction. Mild RV dilatation and systolic dysfunction. Mild tricuspid regurgitation. Mildly elevated RV systolic pressure. Normal central venous pressure. Ejection Fraction = >70 % - Daily weights, I's and O's Chronic venous insufficiency: - Elevate legs. TEDs - Per patient, lower extremity edema has worsened since Dr. Neri d/c'd Bumex treatment HTN- CONTROLLED: - Continue Toprol-XL 150 mg - Hypotensive episodes- Verapamil CR 240 mg decreased to 120 mg HS Dyslipidemia: Lipitor 40 mg daily DM- HbA1c 6.3% on 05/20/16: - Lantus 85 u BID - BSG ACHS w/ SSI - Pharmacy consulted for glycemic management Gout- ASYMPTOMATIC: Allopurinol 100 mg daily Peripheral neuropathy/chronic pain: - Pregabalin 150 mg BID decreased to 75 mg daily by nephrology- patient complains of continued pain w/ decrease in medication- discussed w/ nephrology, increase to BID - Ferguson q6 hrs PRN pain - IV Dilaudid 0.5 mg q4 hrs PRN pain-, I was discuss w/ patient/ about decreasing the frequency and transitioning off IV pain medication Chronic suppressive therapy- follows w/ ID: Continue Doxycycline 100 mg daily GI Prophylaxis: Protonix, Maalox PRN, IV Zofran PRN, Colace and/or Milk of Mag PRN, MiraLAX daily DVT Prophylaxis: Heparin Code Status: LEVEL I, FULL Dispo: Discharge to [facility] when medically stable, hopefully tomorrow- psychotherapist social worker following Discussed discharge plan, decrease frequency of IV Dilaudid as necessary as possible, use oral pain medication as much as possible, for the transition and discharged to rehabilitation Pending insurance company approval to [facility] after resubmit of therapy note very possible discharge on Thursday Continued [facility] stay due to: home environment unsafe for pt Discharge planning: rehab hospital
[2016-08-23 15:17] VITALS: BP 103/68; PULSE 90; TEMP 36.8; O2SAT 96
--- NOTE | 2016-08-23 16:58 | Pulmonology Progress Note ---
Pulmonary Progress Note Date of Service Aug 23, 2016. Attending Dr. Coffey Subjective The patient has COPD, OHS and ESRD on HD. She was admitted with acute respiratory failure prbably multifactorial to all the 3 conditions ESRD with fluid overload, COPD and OHS. She says she has no problems breathing and is not coughing much. She says her only complint is nausea and fatigue after HD. She had a session yesterday, Objective saturates 96% on 3 lit/min HR 90s BP100/60s T36.8 General: Morbidly obese Lungs: distant breath sounds; catheter in the right SC area. CVS: S1S2 distant Abd: Obese, non-tender Ext: B/l LE non pitting edema, no clubbing or cyanosis though Assessment & Plan Patient with morbid obesity, , on HD for few weeks with COPD, OHS on nocturnal BIPAP and likes the machine is in chronic respiratory failure at this point OHS MIKAYLA COPD Plan: Continue nocturnal Trilogy Mental status is good. Her pCO2 has improved on the last ABG, acidosis was mainly metabolic in nature. continue Bronchodilators :Advair, spiriva and duonebs Prednisone 15 m daily - her scheduled dose Continue HD as scheduled DVT prophylaxis with SC heparin. Defer non respiratory management to primary team. Data Medications: Current Inpatient Medications Medications (Trade) Dose Ordered Sig/Duyen Route Start Time Stop Time Status Last Admin Dose Admin Acetaminophen (Tylenol Tab) 650 mg Q4H PRN PO 08/13/16 23:45 09/12/16 23:44 08/17/16 03:19 650 MG Ondansetron HCl (Zofran Inj) 4 mg Q6H PRN IV 08/13/16 23:45 09/12/16 23:44 08/23/16 10:44 4 MG Miscellaneous (Iv Fluids Completed) 1 ea PRN PRN N/A 08/14/16 01:00 08/14/17 00:59 Miscellaneous Information (Consult Glycemic Management Pharmacy) 1 ea UD PRN N/A 08/14/16 08:19 09/13/16 08:18 Allopurinol (Zyloprim Tab) 100 mg DAILY PO 08/14/16 10:00 09/13/16 09:59 08/23/16 07:57 100 MG Atorvastatin Calcium (Lipitor Tab) 40 mg DAILY PO 08/14/16 10:00 09/13/16 09:59 08/23/16 07:57 40 MG Cholecalciferol (Vitamin D Tab) 1,000 inter.unit DAILY PO 08/14/16 10:00 09/13/16 09:59 08/23/16 07:59 1,000 INTER.UNIT Salmeterol Xinafoate/ Fluticasone (Advair Diskus 500/50 Inh) 1 puff BID INH 08/14/16 10:00 09/13/16 09:59 08/23/16 07:58 1 PUFF Albuterol/ Ipratropium (Duoneb) 3 ml Q6H PRN INH 08/14/16 08:00 09/13/16 07:59 Ammonium Lactate (Lac-Hydrin) 1 appl BID EXT 08/14/16 10:00 09/13/16 09:59 08/23/16 08:00 1 APPL Metoprolol Succinate (Toprol Xl Tab) 150 mg DAILY PO 08/14/16 10:00 09/13/16 09:59 08/21/16 08:35 150 MG Miconazole Nitrate (Desenex Powder) 1 appln UD PRN EXT 08/14/16 08:00 09/13/16 07:59 Pantoprazole Sodium (Protonix Tab) 40 mg DAILY PO 08/14/16 10:00 09/13/16 09:59 08/23/16 07:59 40 MG Prednisone (PredniSONE TAB) 15 mg DAILY PO 08/14/16 10:00 09/13/16 09:59 08/23/16 07:57 15 MG Pyridoxine HCl (Vitamin B-6 Tab) 200 mg DAILY PO 08/14/16 10:00 09/13/16 09:59 08/23/16 07:58 200 MG Tiotropium [place] (Spiriva Handihaler Inhaler) 1 puff DAILY INH 08/14/16 10:00 09/13/16 09:59 08/23/16 07:59 1 PUFF Insulin Aspart (novoLOG ASPART) SLIDING SCALE ACHS SC 08/14/16 08:00 09/13/16 07:59 08/23/16 12:28 23 UNITS Calcium Acetate (Phoslo Cap) 667 mg TIDM PO 08/14/16 11:30 09/13/16 11:29 08/23/16 12:28 667 MG Acetaminophen/ Hydrocodone Bitart ([place] 5/325 Tab) 1 tab Q6H PRN PO 08/14/16 22:30 08/28/16 22:29 08/21/16 11:12 1 TAB Polyethylene (Miralax Powder Packet) 17 gm DAILY PO 08/18/16 10:00 09/12/16 09:59 08/21/16 08:35 17 GM Famotidine (Pepcid Tab) 20 mg DAILY PO 08/19/16 09:00 09/18/16 08:59 08/23/16 07:58 20 MG Verapamil HCl (Calan-Sr Tab) 120 mg HS PO 08/21/16 21:00 09/13/16 20:59 08/22/16 20:26 120 MG Pregabalin (Lyrica Cap) 75 mg BID PO 08/21/16 21:00 09/17/16 15:59 08/23/16 07:57 75 MG Doxycycline Hyclate (Vibramycin Cap) 100 mg DAILY PO 08/22/16 09:00 09/21/16 08:59 08/23/16 07:58 100 MG Insulin Glargine (Lantus Vial) 80 unit BID SC 08/22/16 21:00 09/21/16 20:59 08/23/16 08:57 80 UNIT Hydromorphone HCl (Dilaudid Inj) 0.5 mg Q8 PRN IV 08/23/16 14:00 09/03/16 14:14 I & O: 24-Hour Column 08/24/16 08:00 Intake Total 425 ml Balance 425 ml Vital Signs: Date Time Temp Pulse Resp B/P (MAP) Pulse Ox O2 Delivery O2 Flow Rate FiO2 08/23/16 15:17 36.8 90 18 103/68 (80) 96 Nasal Cannula 3.0 08/23/16 07:27 36.8 95 18 100/55 (70) 94 Room Air 08/23/16 00:01 36.6 100 18 131/69 (89) 94 3.0 08/22/16 23:59 CPAP 3.0 08/22/16 20:30 94 Nasal Cannula 3.0 BiPAP Laboratory Results: Last 24 Hours Test 08/22/16 19:57 08/23/16 07:38 08/23/16 07:41 08/23/16 11:41 Bedside Glucose 87 mg/dl 137 mg/dl 147 mg/dl White Blood Count 11.07 K/uL Red Blood Count 3.51 M/uL Hemoglobin 10.8 g/dL Hematocrit 33.9 % Mean Corpuscular Volume 96.6 fL Mean Corpuscular Hemoglobin 30.8 pg Mean Corpuscular Hemoglobin Concent 31.9 g/dl RDW Standard Deviation 74.0 fL RDW Coefficient of Variation 20.9 % Platelet Count 199 K/uL Mean Platelet Volume 9.5 fL Nucleated RBC Absolute Count (auto) 0.25 K/uL Nucleated Red Blood Cells % 2.2 % Sodium Level 132 mmol/L Potassium Level 3.8 mmol/L Chloride Level 96 mmol/L Carbon Dioxide Level 22 mmol/L Anion Gap 14.0 mmol/L Blood Urea Nitrogen 46 mg/dl Creatinine 6.60 mg/dl Est Creatinine Clear Calc Drug Dose 12.5 ml/min Estimated GFR () 7.1 Estimated GFR (Non- 6.2 BUN/Creatinine Ratio 6.9 Random Glucose 135 mg/dl Calcium Level 8.1 mg/dl Magnesium Level 2.3 mg/dl Test 08/23/16 16:34 Bedside Glucose 159 mg/dl
[2016-08-23 20:00] VITALS: O2SAT 96
[2016-08-23] MEDS: HEPARIN SOD 5000 UNIT/0.5 ML CARP SQ SCH (22:00)
[2016-08-23] MEDS: VERAPAMIL HCL 120 MG TABCR PO SCH (22:08)
[2016-08-23] MEDS: HYDROCODONE/ACETAMOPHEN 5/325MG TAB PO PRN (22:12)
[2016-08-23 23:40] VITALS: BP 119/70; PULSE 104; TEMP 36.9; O2SAT 94
[2016-08-24] MEDS: HEPARIN SOD 5000 UNIT/0.5 ML CARP SQ SCH ×3 (06:00→21:39)
[2016-08-24 07:07] LABS: BASO % 0.2 %; BASO ABS # 0.02 K/uL (0-0.2); EOS % 1.3 %; HEMATOCRIT 33.7 % (37-47); LYMPH % 9.9 %; LYMPH ABS # 0.97 K/uL (1.2-3.4); MEAN CELL VOLUME 96.3 fL (80-100); MEAN CORPUSCULAR HEMOGLOBIN 30.3 pg (25-34); MEAN CORPUSCULAR HGB CONC 31.5 g/dl (32-36); MEAN PLATELET VOLUME 9.7 fL (7.4-10.4); MONO % 11.5 %; NEUT % 76.1 %; PLATELET COUNT 209 K/uL (130-400)
[2016-08-24 07:45] VITALS: BP 124/75; PULSE 80; TEMP 36.5; O2SAT 95
[2016-08-24 07:50] LABS: ANISOCYTOSIS PRESENT; COMPLETE YES
[2016-08-24 08:00] LABS: BUN/CREATININE RATIO 8.2 (10-20); CALCIUM 8.5 mg/dl (8.5-10.1); MAGNESIUM 2.5 mg/dl (1.8-2.4); PHOSPHORUS 6.6 mg/dl (2.5-4.9)
[2016-08-24] MEDS: PREGABALIN 75 MG CAP PO SCH ×2 (08:44→21:54)
[2016-08-24] MEDS: PANTOprazole SOD 40 MG TAB PO SCH (08:45)
[2016-08-24] MEDS: PYRIDOXINE HCL 50 MG TAB PO SCH (08:45)
[2016-08-24] MEDS: METOPROLOL SUCC 50MG EXT REL TAB PO SCH (08:45)
[2016-08-24] MEDS: CHOLECALCIFEROL 1000 INTER.UNIT TAB PO SCH (08:46)
[2016-08-24] MEDS: DOXYCYCLINE HYCLATE 100 MG CAP PO SCH (08:47)
[2016-08-24] MEDS: FAMOTIDINE 20 MG TAB PO SCH (08:47)
[2016-08-24] MEDS: ALLOPURINOL 100 MG TAB PO SCH (08:47)
[2016-08-24] MEDS: ATORVASTATIN 40 MG TAB PO SCH (08:48)
[2016-08-24] MEDS: CALCIUM ACETATE 667MG GELCAP PO SCH ×3 (08:48→17:35)
[2016-08-24] MEDS: POLYETHYLENE (MIRALAX) 17 GM PACK PO SCH (08:48)
[2016-08-24] MEDS: FLUTICASONE/SALMETEROL (ADVAIR) 500/50 INH 14 PUFF INH SCH ×2 (08:49→21:54)
[2016-08-24] MEDS: AMMONIUM LACTATE 12% LOTION 225 GM BTL EXT SCH ×2 (08:49→21:00)
[2016-08-24] MEDS: INSULIN GLARGINE SC SCH ×2 (09:11→21:59)
[2016-08-24] MEDS: INSULIN ASPART 100 UNITS/ML 3 ML PEN SC SCH ×4 (09:12→22:00)
[2016-08-24] MEDS: TIOTROPIUM BROMIDE 5 PUFF/90 MCG INH INH SCH (09:30)
--- NOTE | 2016-08-24 11:36 | Nephrology Progress Note ---
Nephrology Progress Note Date of Service Aug 24, 2016. Chief Complaint Follow-up for end-stage renal disease on hemodialysis. Subjective Jazmin was seen and examined in her room this morning. She was sitting in chair, overall she feels better this morning. Denies any nausea, shortness of breath or chest pain. blood pressure has been acceptable. Review of Systems A complete review of systems was performed. Pertinent positives are noted above. All other systems are negative. Vital Signs Last 8 Hrs Date Time Temp Pulse Resp B/P (MAP) Pulse Ox O2 Delivery O2 Flow Rate FiO2 08/24/16 07:45 36.5 80 20 124/75 (91) 95 Nasal Cannula 3.0 Last Recorded Weight Weight (Kilograms): 139.800 Physical Exam GENERAL: Middle-aged female, AAA x 3, pleasant, morbidly obese, not in any distress. NECK: Supple, no JVD. RESPIRATORY: Normal breathing efforts, no accessory muscle use, clear to auscultation bilaterally, no wheezes or rales. CARDIOVASCULAR: S1, S2 normal, rate rhythm regular. EXTREMITY: 1+ bilateral lower extremity edema NEURO: speech fluent. PSYCHIATRY: Normal mood and judgment Family History Cancer Diabetes mellitus Gallbladder disease Heart disease Lung disease Social History Smoking Status: Former smoker Drug Use: none Marital Status: Housing Status: lives with family Occupation: unemployed Laboratory Results Past 24 Hours 08/24/16 06:51 Red Blood Count 3.50, Mean Corpuscular Volume 96.3, Mean Corpuscular Hemoglobin 30.3, Mean Corpuscular Hemoglobin Concent 31.5, Mean Platelet Volume 9.7, Neutrophils (%) (Auto) 76.1, Lymphocytes (%) (Auto) 9.9, Monocytes (%) (Auto) 11.5, Eosinophils (%) (Auto) 1.3, Basophils (%) (Auto) 0.2, Neutrophils # (Auto ) 7.45, Lymphocytes # (Auto) 0.97, Monocytes # (Auto) 1.13, Eosinophils # (Auto ) 0.13, Basophils # (Auto) 0.02 08/24/16 06:51 Test 08/23/16 11:41 08/23/16 16:34 08/23/16 20:43 08/24/16 06:51 Bedside Glucose 147 mg/dl (70-90) 159 mg/dl (70-90) 163 mg/dl (70-90) White Blood Count 9.80 K/uL (4.8-10.8) Red Blood Count 3.50 M/uL (4.2-5.4) Hemoglobin 10.6 g/dL (12.0-16.0) Hematocrit 33.7 % (37-47) Mean Corpuscular Volume 96.3 fL (80-100) Mean Corpuscular Hemoglobin 30.3 pg (25-34) Mean Corpuscular Hemoglobin Concent 31.5 g/dl (32-36) Platelet Count 209 K/uL (130-400) Mean Platelet Volume 9.7 fL (7.4-10.4) Neutrophils (%) (Auto) 76.1 % Lymphocytes (%) (Auto) 9.9 % Monocytes (%) (Auto) 11.5 % Eosinophils (%) (Auto) 1.3 % Basophils (%) (Auto) 0.2 % Neutrophils # (Auto) 7.45 K/uL (1.4-6.5) Lymphocytes # (Auto) 0.97 K/uL (1.2-3.4) Monocytes # (Auto) 1.13 K/uL (0.11-0.59) Eosinophils # (Auto) 0.13 K/uL (0-0.5) Basophils # (Auto) 0.02 K/uL (0-0.2) RDW Standard Deviation 73.4 fL (36.4-46.3) RDW Coefficient of Variation 20.7 % (11.5-14.5) Immature Granulocyte % (Auto) 1.0 % Immature Granulocyte # (Auto) 0.10 K/uL (0.00-0.02) Nucleated RBC Absolute Count (auto) 0.20 K/uL (0-0) Nucleated Red Blood Cells % 2.0 % Anisocytosis PRESENT Anion Gap 14.0 mmol/L (3-11) Est Creatinine Clear Calc Drug Dose 10.4 ml/min Estimated GFR () 5.7 Estimated GFR (Non- 4.9 BUN/Creatinine Ratio 8.2 (10-20) Calcium Level 8.5 mg/dl (8.5-10.1) Phosphorus Level 6.6 mg/dl (2.5-4.9) Magnesium Level 2.5 mg/dl (1.8-2.4) Test 08/24/16 07:06 Bedside Glucose 147 mg/dl (70-90) Allergies Coded Allergies: Daptomycin (Verified Allergy, Mild, HIVES, 07/24/16) itching Iodine (Verified Allergy, Unknown, 07/24/16) Shellfish (Verified Allergy, Unknown, 07/24/16) Sulfamethoxazole w/Trimethoprim (Verified Allergy, Unknown, RASH, 07/24/16) Codeine (Verified Adverse Reaction, Unknown, NAUSEA, 08/14/16) has tolerated morphine Medications Current Inpatient Medications Medications (Trade) Dose Ordered Sig/Duyen Route Start Time Stop Time Status Last Admin Dose Admin Acetaminophen (Tylenol Tab) 650 mg Q4H PRN PO 08/13/16 23:45 09/12/16 23:44 08/17/16 03:19 650 MG Ondansetron HCl (Zofran Inj) 4 mg Q6H PRN IV 08/13/16 23:45 09/12/16 23:44 08/23/16 18:47 4 MG Miscellaneous (Iv Fluids Completed) 1 ea PRN PRN N/A 08/14/16 01:00 08/14/17 00:59 Miscellaneous Information (Consult Glycemic Management Pharmacy) 1 ea UD PRN N/A 08/14/16 08:19 09/13/16 08:18 Allopurinol (Zyloprim Tab) 100 mg DAILY PO 08/14/16 10:00 09/13/16 09:59 08/24/16 08:47 100 MG Atorvastatin Calcium (Lipitor Tab) 40 mg DAILY PO 08/14/16 10:00 09/13/16 09:59 08/24/16 08:48 40 MG Cholecalciferol (Vitamin D Tab) 1,000 inter.unit DAILY PO 08/14/16 10:00 09/13/16 09:59 08/24/16 08:46 1,000 INTER.UNIT Salmeterol Xinafoate/ Fluticasone (Advair Diskus 500/50 Inh) 1 puff BID INH 08/14/16 10:00 09/13/16 09:59 08/24/16 08:49 1 PUFF Albuterol/ Ipratropium (Duoneb) 3 ml Q6H PRN INH 08/14/16 08:00 09/13/16 07:59 Ammonium Lactate (Lac-Hydrin) 1 appl BID EXT 08/14/16 10:00 09/13/16 09:59 08/24/16 08:49 1 APPL Metoprolol Succinate (Toprol Xl Tab) 150 mg DAILY PO 08/14/16 10:00 09/13/16 09:59 08/24/16 08:45 150 MG Miconazole Nitrate (Desenex Powder) 1 appln UD PRN EXT 08/14/16 08:00 09/13/16 07:59 Pantoprazole Sodium (Protonix Tab) 40 mg DAILY PO 08/14/16 10:00 09/13/16 09:59 08/24/16 08:45 40 MG Prednisone (PredniSONE TAB) 15 mg DAILY PO 08/14/16 10:00 09/13/16 09:59 08/24/16 08:47 15 MG Pyridoxine HCl (Vitamin B-6 Tab) 200 mg DAILY PO 08/14/16 10:00 09/13/16 09:59 08/24/16 08:45 200 MG Tiotropium [place] (Spiriva Handihaler Inhaler) 1 puff DAILY INH 08/14/16 10:00 09/13/16 09:59 08/24/16 09:30 1 PUFF Insulin Aspart (novoLOG ASPART) SLIDING SCALE ACHS SC 08/14/16 08:00 09/13/16 07:59 08/24/16 09:12 25 UNITS Calcium Acetate (Phoslo Cap) 667 mg TIDM PO 08/14/16 11:30 09/13/16 11:29 08/24/16 08:48 667 MG Acetaminophen/ Hydrocodone Bitart ([place] 5/325 Tab) 1 tab Q6H PRN PO 08/14/16 22:30 08/28/16 22:29 08/23/16 22:12 1 TAB Polyethylene (Miralax Powder Packet) 17 gm DAILY PO 08/18/16 10:00 09/12/16 09:59 08/21/16 08:35 17 GM Famotidine (Pepcid Tab) 20 mg DAILY PO 08/19/16 09:00 09/18/16 08:59 08/24/16 08:47 20 MG Verapamil HCl (Calan-Sr Tab) 120 mg HS PO 08/21/16 21:00 09/13/16 20:59 08/23/16 22:08 120 MG Pregabalin (Lyrica Cap) 75 mg BID PO 08/21/16 21:00 09/17/16 15:59 08/24/16 08:44 75 MG Doxycycline Hyclate (Vibramycin Cap) 100 mg DAILY PO 08/22/16 09:00 09/21/16 08:59 08/24/16 08:47 100 MG Insulin Glargine (Lantus Vial) 80 unit BID SC 08/22/16 21:00 09/21/16 20:59 08/24/16 09:11 80 UNIT Hydromorphone HCl (Dilaudid Inj) 0.5 mg Q8 PRN IV 08/23/16 14:00 09/03/16 14:14 08/23/16 22:17 0.5 MG Heparin Sodium (Porcine) (Heparin Sq 5000 Unit/0.5ml) 5,000 unit Q8 SQ 08/23/16 22:00 09/22/16 21:59 Vitamin B Complex/ Vit C/Folic Acid (Nephrocaps) 1 cap QAM PO 08/25/16 09:00 09/24/16 08:59 Impression (1) ESRD on hemodialysis (2) Hypercapnic respiratory failure (3) Obesity hypoventilation syndrome (4) Hyperkalemia (5) Morbid obesity with BMI of 50.0-59.9, adult (6) Hyperphosphatemia (7) Hyponatremia Hemalatha is a 60-year-old female with morbid obesity, obesity hypoventilation syndrome, recurrent hypercapnia, 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 She has had multiple hospitalizations for volume overload and electrolyte abnormalities associated with diuretics. Hemalatha started hemodialysis during hospitalization in June 2016. Permcath was placed 07/25. She completed her first dialysis treatment on . She is on hemodialysis at [facility] TTS schedule. She currently dialyzes via a TDC. AVF created 08/19/[address] Thapa. Recommendations -- Volume status and blood pressure currently appropriate -- continue on Thursday, Thursday, Thursday dialysis schedule for now as patient most likely will be discharged to [facility] in next few days. -- AVF healing appropriately with good bruit -- advise patient to hold blood pressure medications in the morning on the day of dialysis to avoid hypotension during dialysis and allow for ultra filtration --Restrict free water intake to less than 1500 mL -- Epogen held for hemoglobin >11 -- Patient is interested in [facility] following hospitalization
--- NOTE | 2016-08-24 11:44 | Pharmacy Progress Note ---
Glycemic: Assessment & Plan Date of Service Aug 24, 2016. Assessment & Plan The patient is currently receiving ~240 units of insulin per day. BSGs ranging 137 - 163 mg/dl over the past 24hrs. * Basal insulin: Lantus 80 units every 12 hours * Correctional Insulin: Novolog Correction per scale ACHS Goal Range: Low 110 mg/dL - High 140 mg/dL Correction Factor: 6 mg/dL/unit * Prandial insulin: Per carb ratio of 1 unit per 2 grams CHO consumed BSGs continue to improve, no changes needed to inpatient regimen at this time. Pharmacy will continue to monitor patient daily and write orders per [facility] inpatient glycemic control protocol. Thanks. * Please note that the plan above was derived based on current level of insulin resistance and hospital stress. These recommendations are appropriate for inpatient admission only. Plan of care upon discharge will need to be reassessed to avoid potential outpatient hypo/hyperglycemia.
--- NOTE | 2016-08-24 15:16 | Pulmonology Progress Note ---
Pulmonary Progress Note Date of Service Aug 24, 2016. Attending Dr. Coffey Subjective The patient has COPD, OHS and ESRD on HD. She was admitted with acute respiratory failure probably multifactorial to all the 3 conditions ESRD with fluid overload, COPD and OHS. She continues to have no respiratory complaints and she is free of nausea today. Minimal cough if at all per patient. Objective saturates 96% on 3 lit/min HR 90s BP100/60s T36.8 General: Morbidly obese Lungs: distant breath sounds; catheter in the right SC area. CVS: S1S2 distant Abd: Obese, non-tender Ext: B/l LE non pitting edema, no clubbing or cyanosis though Assessment & Plan Patient with morbid obesity, , on HD for few weeks with COPD, OHS on nocturnal BIPAP and likes the machine is in chronic respiratory failure at this point OHS MIKAYLA COPD Plan: Continue nocturnal Trilogy Mental status is good. Her pCO2 has improved on the last ABG, acidosis was mainly metabolic in nature. WOuld repeat a VBG after HD to ascertain she is compensated continue Bronchodilators :Advair, spiriva and duonebs Prednisone 15 m daily - her scheduled dose She needs [facility] O2 therapy with 3 lit/min. Continue HD as scheduled DVT prophylaxis with SC heparin. Defer non respiratory management to primary team. Data Medications: Current Inpatient Medications Medications (Trade) Dose Ordered Sig/Duyen Route Start Time Stop Time Status Last Admin Dose Admin Acetaminophen (Tylenol Tab) 650 mg Q4H PRN PO 08/13/16 23:45 09/12/16 23:44 08/17/16 03:19 650 MG Ondansetron HCl (Zofran Inj) 4 mg Q6H PRN IV 08/13/16 23:45 09/12/16 23:44 08/23/16 18:47 4 MG Miscellaneous (Iv Fluids Completed) 1 ea PRN PRN N/A 08/14/16 01:00 08/14/17 00:59 Miscellaneous Information (Consult Glycemic Management Pharmacy) 1 ea UD PRN N/A 08/14/16 08:19 09/13/16 08:18 Allopurinol (Zyloprim Tab) 100 mg DAILY PO 08/14/16 10:00 09/13/16 09:59 08/24/16 08:47 100 MG Atorvastatin Calcium (Lipitor Tab) 40 mg DAILY PO 08/14/16 10:00 09/13/16 09:59 08/24/16 08:48 40 MG Cholecalciferol (Vitamin D Tab) 1,000 inter.unit DAILY PO 08/14/16 10:00 09/13/16 09:59 08/24/16 08:46 1,000 INTER.UNIT Salmeterol Xinafoate/ Fluticasone (Advair Diskus 500/50 Inh) 1 puff BID INH 08/14/16 10:00 09/13/16 09:59 08/24/16 08:49 1 PUFF Albuterol/ Ipratropium (Duoneb) 3 ml Q6H PRN INH 08/14/16 08:00 09/13/16 07:59 Ammonium Lactate (Lac-Hydrin) 1 appl BID EXT 08/14/16 10:00 09/13/16 09:59 08/24/16 08:49 1 APPL Metoprolol Succinate (Toprol Xl Tab) 150 mg DAILY PO 08/14/16 10:00 09/13/16 09:59 08/24/16 08:45 150 MG Miconazole Nitrate (Desenex Powder) 1 appln UD PRN EXT 08/14/16 08:00 09/13/16 07:59 Pantoprazole Sodium (Protonix Tab) 40 mg DAILY PO 08/14/16 10:00 09/13/16 09:59 08/24/16 08:45 40 MG Prednisone (PredniSONE TAB) 15 mg DAILY PO 08/14/16 10:00 09/13/16 09:59 08/24/16 08:47 15 MG Pyridoxine HCl (Vitamin B-6 Tab) 200 mg DAILY PO 08/14/16 10:00 09/13/16 09:59 08/24/16 08:45 200 MG Tiotropium [place] (Spiriva Handihaler Inhaler) 1 puff DAILY INH 08/14/16 10:00 09/13/16 09:59 08/24/16 09:30 1 PUFF Insulin Aspart (novoLOG ASPART) SLIDING SCALE ACHS SC 08/14/16 08:00 09/13/16 07:59 08/24/16 12:55 37 UNITS Calcium Acetate (Phoslo Cap) 667 mg TIDM PO 08/14/16 11:30 09/13/16 11:29 08/24/16 12:22 667 MG Acetaminophen/ Hydrocodone Bitart ([place] 5/325 Tab) 1 tab Q6H PRN PO 08/14/16 22:30 08/28/16 22:29 08/23/16 22:12 1 TAB Polyethylene (Miralax Powder Packet) 17 gm DAILY PO 08/18/16 10:00 09/12/16 09:59 08/21/16 08:35 17 GM Famotidine (Pepcid Tab) 20 mg DAILY PO 08/19/16 09:00 09/18/16 08:59 08/24/16 08:47 20 MG Verapamil HCl (Calan-Sr Tab) 120 mg HS PO 08/21/16 21:00 09/13/16 20:59 08/23/16 22:08 120 MG Pregabalin (Lyrica Cap) 75 mg BID PO 08/21/16 21:00 09/17/16 15:59 08/24/16 08:44 75 MG Doxycycline Hyclate (Vibramycin Cap) 100 mg DAILY PO 08/22/16 09:00 09/21/16 08:59 08/24/16 08:47 100 MG Insulin Glargine (Lantus Vial) 80 unit BID SC 08/22/16 21:00 09/21/16 20:59 08/24/16 09:11 80 UNIT Heparin Sodium (Porcine) (Heparin Sq 5000 Unit/0.5ml) 5,000 unit Q8 SQ 08/23/16 22:00 09/22/16 21:59 Vitamin B Complex/ Vit C/Folic Acid (Nephrocaps) 1 cap QAM PO 08/25/16 09:00 09/24/16 08:59 Acetaminophen/ Hydrocodone Bitart ([place] 5/325 Tab) 2 tab Q6 PRN PO 08/24/16 15:15 09/07/16 15:14 UNV Vital Signs: Date Time Temp Pulse Resp B/P (MAP) Pulse Ox O2 Delivery O2 Flow Rate FiO2 08/24/16 08:00 Nasal Cannula 3.0 08/24/16 07:45 36.5 80 20 124/75 (91) 95 Nasal Cannula 3.0 08/23/16 23:59 CPAP 3.0 08/23/16 23:40 36.9 104 18 119/70 (86) 94 Nasal Cannula 3.0 08/23/16 20:00 96 Nasal Cannula 3.0 08/23/16 16:00 Nasal Cannula 3.0 08/23/16 15:17 36.8 90 18 103/68 (80) 96 Nasal Cannula 3.0 Laboratory Results: Last 24 Hours Test 08/23/16 16:34 08/23/16 20:43 08/24/16 06:51 08/24/16 07:06 Bedside Glucose 159 mg/dl 163 mg/dl 147 mg/dl White Blood Count 9.80 K/uL Red Blood Count 3.50 M/uL Hemoglobin 10.6 g/dL Hematocrit 33.7 % Mean Corpuscular Volume 96.3 fL Mean Corpuscular Hemoglobin 30.3 pg Mean Corpuscular Hemoglobin Concent 31.5 g/dl Platelet Count 209 K/uL Mean Platelet Volume 9.7 fL Neutrophils (%) (Auto) 76.1 % Lymphocytes (%) (Auto) 9.9 % Monocytes (%) (Auto) 11.5 % Eosinophils (%) (Auto) 1.3 % Basophils (%) (Auto) 0.2 % Neutrophils # (Auto) 7.45 K/uL Lymphocytes # (Auto) 0.97 K/uL Monocytes # (Auto) 1.13 K/uL Eosinophils # (Auto) 0.13 K/uL Basophils # (Auto) 0.02 K/uL RDW Standard Deviation 73.4 fL RDW Coefficient of Variation 20.7 % Immature Granulocyte % (Auto) 1.0 % Immature Granulocyte # (Auto) 0.10 K/uL Nucleated RBC Absolute Count (auto) 0.20 K/uL Nucleated Red Blood Cells % 2.0 % Anisocytosis PRESENT Sodium Level 130 mmol/L Potassium Level 4.0 mmol/L Chloride Level 94 mmol/L Carbon Dioxide Level 22 mmol/L Anion Gap 14.0 mmol/L Blood Urea Nitrogen 66 mg/dl Creatinine 8.00 mg/dl Est Creatinine Clear Calc Drug Dose 10.4 ml/min Estimated GFR () 5.7 Estimated GFR (Non- 4.9 BUN/Creatinine Ratio 8.2 Random Glucose 159 mg/dl Calcium Level 8.5 mg/dl Phosphorus Level 6.6 mg/dl Magnesium Level 2.5 mg/dl Test 08/24/16 11:31 Bedside Glucose 163 mg/dl
[2016-08-24 15:45] VITALS: BP 150/73; PULSE 88; TEMP 36.3; O2SAT 95
--- NOTE | 2016-08-24 16:05 | Progress Note ---
Subjective Date of Service: Aug 24, 2016. Subjective Pt evaluation today including: conversation w/ patient, physical exam, chart review, lab review, review of studies Doing okay, no complaining Problem List Medical Problems: (1) Altered mental status Status: Acute (2) Anasarca Status: Acute (3) Anasarca Status: Acute (4) Bilateral cellulitis of lower leg Status: Acute (5) Bilateral lower leg cellulitis Status: Acute (6) Change in mental status Status: Acute (7) Chronic renal failure Status: Acute (8) CO2 retention Status: Acute (9) Dehydration Status: Acute (10) Dyspnea on exertion Status: Acute (11) Fall Status: Acute (12) Fever Status: Acute (13) Fever Status: Acute (14) Generalized weakness Status: Acute (15) Hypercarbia Status: Acute (16) Hyperkalemia Status: Acute (17) Hypokalemia Status: Acute (18) Hypoxemia Status: Acute (19) Hypoxia Status: Acute (20) Lumbar strain Status: Acute (21) Respiratory failure Status: Acute (22) Respiratory failure with hypercapnia Status: Acute (23) Weakness Status: Acute (24) Weight gain Status: Acute (25) Wrist pain Status: Acute Review of Systems Constitutional: No fever, No chills, No sweats, No weight loss, No weakness, No fatigue, No problem reported Eyes: No worsening of vision, No eye pain, No redness, No discharge, No diplopia ENT: No hearing loss, No unusual epistaxis, No nasal symptoms, No sore throat, No tinnitus, No dental problems, No trouble swallowing Respiratory: No cough, No sputum, No wheezing, No shortness of breath, No dyspnea on exertion, No dyspnea at rest, No hemoptysis Cardiac: No chest pain, No orthopnea, No PND, No edema, No claudication, No palpitations Abdomen: No pain, No nausea, No vomiting, No diarrhea, No constipation Musculoskeletal: + joint pain, No muscle pain, No swelling, No calf pain Female : No dysuria, No urinary frequency, No hematuria, No incontinence, No abnormal vaginal bleeding, No vaginal discharge Neurologic: No memory loss, No paralysis, No weakness, No numbness/tingling, No vertigo, No balance problems Psychiatric: No depression symptoms, No anhedonism, No anxiety, No insomnia, No substance abuse Heme: No abnormal bleeding/bruising, No clotting problems, No swollen lymph nodes, No night sweats Endo: No fatigue, No excessive thirst, No excessive urination Skin: No rash, No itch, No new/changing skin lesions, No color change, No bleeding Objective Vital Signs Date Time Temp Pulse Resp B/P (MAP) Pulse Ox O2 Delivery O2 Flow Rate FiO2 08/24/16 15:45 36.3 88 20 150/73 (98) 95 Room Air 08/24/16 08:00 Nasal Cannula 3.0 08/24/16 07:45 36.5 80 20 124/75 (91) 95 Nasal Cannula 3.0 08/23/16 23:59 CPAP 3.0 08/23/16 23:40 36.9 104 18 119/70 (86) 94 Nasal Cannula 3.0 08/23/16 20:00 96 Nasal Cannula 3.0 Physical Exam General Appearance: WD/WN, no apparent distress, + obese Eyes: normal inspection, PERRL, EOMI, sclerae normal ENT: normal ENT inspection, hearing grossly normal, pharynx normal Neck: supple, no adenopathy, thyroid normal, no JVD, no carotid bruits, trachea midline Respiratory/Chest: chest non-tender, lungs clear, normal breath sounds, no respiratory distress, no accessory muscle use Cardiovascular: regular rate, rhythm, no gallop, no JVD, no murmur, + pertinent finding (2+ edema) Abdomen: normal bowel sounds, non tender, soft, no organomegaly, no pulsatile mass Extremities: normal range of motion, non-tender, normal inspection, no pedal edema, no calf tenderness, normal capillary refill, pelvis stable 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, no motor/sensory deficits, alert, normal mood/affect, oriented x 3 Skin: normal color, warm/dry, no rash Lymphatic: no adenopathy Laboratory Results Last 24 Hours Test 08/23/16 16:34 08/23/16 20:43 08/24/16 06:51 08/24/16 07:06 Bedside Glucose 159 mg/dl 163 mg/dl 147 mg/dl White Blood Count 9.80 K/uL Red Blood Count 3.50 M/uL Hemoglobin 10.6 g/dL Hematocrit 33.7 % Mean Corpuscular Volume 96.3 fL Mean Corpuscular Hemoglobin 30.3 pg Mean Corpuscular Hemoglobin Concent 31.5 g/dl Platelet Count 209 K/uL Mean Platelet Volume 9.7 fL Neutrophils (%) (Auto) 76.1 % Lymphocytes (%) (Auto) 9.9 % Monocytes (%) (Auto) 11.5 % Eosinophils (%) (Auto) 1.3 % Basophils (%) (Auto) 0.2 % Neutrophils # (Auto) 7.45 K/uL Lymphocytes # (Auto) 0.97 K/uL Monocytes # (Auto) 1.13 K/uL Eosinophils # (Auto) 0.13 K/uL Basophils # (Auto) 0.02 K/uL RDW Standard Deviation 73.4 fL RDW Coefficient of Variation 20.7 % Immature Granulocyte % (Auto) 1.0 % Immature Granulocyte # (Auto) 0.10 K/uL Nucleated RBC Absolute Count (auto) 0.20 K/uL Nucleated Red Blood Cells % 2.0 % Anisocytosis PRESENT Sodium Level 130 mmol/L Potassium Level 4.0 mmol/L Chloride Level 94 mmol/L Carbon Dioxide Level 22 mmol/L Anion Gap 14.0 mmol/L Blood Urea Nitrogen 66 mg/dl Creatinine 8.00 mg/dl Est Creatinine Clear Calc Drug Dose 10.4 ml/min Estimated GFR () 5.7 Estimated GFR (Non- 4.9 BUN/Creatinine Ratio 8.2 Random Glucose 159 mg/dl Calcium Level 8.5 mg/dl Phosphorus Level 6.6 mg/dl Magnesium Level 2.5 mg/dl Test 08/24/16 11:31 Bedside Glucose 163 mg/dl Assessment and Plan 60-year-old female with extensive PMHx presents to the ER with complaints of weakness and frequent falls due to excessive jerkiness. Acute on chronic hypercapnic respiratory failure- STABLE/obesity hypoventilation syndrome/MIKAYLA/COPD: Stable - Continue O2- wears 3-4L of O2 supplement at home, and BiPAP HS - DuoNebs q6 hrs PRN - Continue Advair, Spiriva, and Prednisone 15 mg daily which is home dose - Pulmonary consulted, appreciate recommendations Frequent falls upon admission, likely secondary to deconditioning, weakness, jerkiness: - Head CT- Negative for any acute changes - PT/OT- recommending acute inpatient rehab- patient agreeable - Belviq 10 mg BID d/c'd w/ moderate improvement in jerkiness/jitteriness - Nephrology decreased Jemmaa CKD stage 5, secondary to diabetic nephropathy/hypertensive sclerosis- requiring HD MWF: We'll continue - Nephrology consulted, appreciate recommendations -- Renal diet -- [facility] - Vascular surgery consulted- left antecubital cephalic vein AV fistula on 2016; PermCath removal on 08/20 -- f/u outpatient in 2 weeks Leukocytosis, likely secondary to postop response- RESOLVING: - No s/s of infection- Hyperkalemia, secondary to CKD stage V- RESOLVED: Follow PRP Hypercalcemia- noted during previous admission: - Serum free light chain ratio is elevated. UPEP was positive for IgG [place] monoclonal protein during outpatient workup - Followed by Dr. Delong, I told patient to follow-up with him Hyponatremia- STABLE Cor pulmonale: - Last echo 07/25/15: Hyperdynamic LV systolic function. Mild concentric LV hypertrophy. LV diastolic dysfunction. Mild RV dilatation and systolic dysfunction. Mild tricuspid regurgitation. Mildly elevated RV systolic pressure. Normal central venous pressure. Ejection Fraction = >70 % - Daily weights, I's and O's Chronic venous insufficiency: - Elevate legs. TEDs - Per patient, lower extremity edema has worsened since Dr. Neri d/c'd Bumex treatment HTN- CONTROLLED: - Continue Toprol-XL 150 mg - Hypotensive episodes- Verapamil CR 240 mg decreased to 120 mg HS Dyslipidemia: Lipitor 40 mg daily DM- HbA1c 6.3% on 05/20/16: - Lantus 85 u BID - BSG ACHS w/ SSI - Pharmacy consulted for glycemic management Gout- ASYMPTOMATIC: Allopurinol 100 mg daily Peripheral neuropathy/chronic pain: - Pregabalin 150 mg BID decreased to 75 mg daily by nephrology- patient complains of continued pain w/ decrease in medication- discussed w/ nephrology, increase to BID - [place] q6 hrs PRN pain - IV Dilaudid 0.5 mg q4 hrs PRN pain-, I was discuss w/ patient/ about decreasing the frequency and transitioning off IV pain medication Chronic suppressive therapy- follows w/ ID: Continue Doxycycline 100 mg daily GI Prophylaxis: Protonix, Maalox PRN, IV Zofran PRN, Colace and/or Milk of Mag PRN, MiraLAX daily DVT Prophylaxis: Heparin Code Status: LEVEL I, FULL Dispo: Medical stable to Discharge to [facility] social work job titles following The patient agreed to discontinue IV Dilaudid and use oral pill for the pain control Pending insurance company approval to [facility] after resubmit of therapy note Can be discharge on Thursday when insurance approval Continued [facility] stay due to: home environment unsafe for pt Discharge planning: rehab hospital
[2016-08-24 20:00] VITALS: O2SAT 96
[2016-08-24] MEDS: VERAPAMIL HCL 120 MG TABCR PO SCH (21:55)
[2016-08-24] MEDS: HYDROCODONE/ACETAMOPHEN 5/325MG TAB PO PRN (23:38)
[2016-08-24 23:42] VITALS: BP 127/68; PULSE 87; TEMP 37; O2SAT 92
[2016-08-25] VITALS (24 sets, daily range): BP systolic 109–154; BP diastolic 61–72; PULSE 71–92; TEMP 36.7–37; O2SAT 90–96
[2016-08-25] MEDS: HEPARIN SOD 5000 UNIT/0.5 ML CARP SQ SCH ×3 (05:46→21:43)
[2016-08-25] MEDS: ATORVASTATIN 40 MG TAB PO SCH (07:58)
[2016-08-25] MEDS: CALCIUM ACETATE 667MG GELCAP PO SCH ×3 (07:58→17:39)
[2016-08-25] MEDS: TIOTROPIUM BROMIDE 5 PUFF/90 MCG INH INH SCH (07:59)
[2016-08-25] MEDS: DOXYCYCLINE HYCLATE 100 MG CAP PO SCH (07:59)
[2016-08-25] MEDS: FLUTICASONE/SALMETEROL (ADVAIR) 500/50 INH 14 PUFF INH SCH ×2 (07:59→21:44)
[2016-08-25] MEDS: FAMOTIDINE 20 MG TAB PO SCH (07:59)
[2016-08-25] MEDS: AMMONIUM LACTATE 12% LOTION 225 GM BTL EXT SCH ×2 (07:59→21:45)
[2016-08-25] MEDS: ALLOPURINOL 100 MG TAB PO SCH (08:00)
[2016-08-25] MEDS: PYRIDOXINE HCL 50 MG TAB PO SCH (08:00)
[2016-08-25] MEDS: POLYETHYLENE (MIRALAX) 17 GM PACK PO SCH (08:00)
[2016-08-25] MEDS: CHOLECALCIFEROL 1000 INTER.UNIT TAB PO SCH (08:01)
[2016-08-25] MEDS: METOPROLOL SUCC 50MG EXT REL TAB PO SCH (08:01)
[2016-08-25] MEDS: NEPHROCAPS PO SCH (08:01)
[2016-08-25] MEDS: PANTOprazole SOD 40 MG TAB PO SCH (08:01)
[2016-08-25] MEDS: PREGABALIN 75 MG CAP PO SCH ×2 (08:03→21:49)
[2016-08-25] MEDS: HYDROCODONE/ACETAMOPHEN 5/325MG TAB PO PRN ×2 (08:04→14:52)
[2016-08-25] MEDS: INSULIN GLARGINE SC SCH ×2 (08:09→21:43)
[2016-08-25] MEDS: INSULIN ASPART 100 UNITS/ML 3 ML PEN SC SCH ×4 (08:10→21:41)
[2016-08-25] MEDS ORDERED: LYR75 PO (09:54)
[2016-08-25] MEDS ORDERED: HYDR-5688 PO (09:54)
[2016-08-25] MEDS ORDERED: FAMO1TAB47 PO (09:54)
[2016-08-25] MEDS ORDERED: PHS667 PO (09:54)
[2016-08-25] MEDS ORDERED: VERA1TAB52 PO (09:54)
--- NOTE | 2016-08-25 10:03 | Discharge Instructions ---
Discharge Instructions Date of Service Aug 25, 2016. Admission Reason for Admission: Frequent Fall Discharge Discharge Diagnosis / Problem: Frequent falls; Acute on chronic respiratory failure Discharge Goals Goal(s): Decrease discomfort, Improve function, Increase independence, Improve disease control, Learn about illness, Diagnostic testing, Therapeutic intervention, Prevent Disease Progression Activity Recommendations Activity Level: Assistance Required Therapies: Physical Therapy, Occupational Therapy . Additional Information Patient informed of condition: Yes Advance Directives: No DNR: No Level of Care: Acute Rehab Communicable Disease: No Prognosis: Improving Oxygen at (LPM): 3L [place] Catheter: No Instructions / Follow-Up Instructions / Follow-Up Acute on chronic hypercapnic respiratory failure- STABLE/obesity hypoventilation syndrome/MIKAYLA/COPD- STABLE: - Continue O2- wears 3-4L of O2 supplement at home, and BiPAP HS - DuoNebs q6 hrs PRN - Continue Advair, Spiriva, and Prednisone 15 mg daily - Pulmonary consulted, appreciate recommendations Frequent falls, likely secondary to deconditioning, weakness, jerkiness: - Head CT- Negative for any acute changes - PT/OT- recommending acute inpatient rehab- patient agreeable - Belviq 10 mg BID d/c'd w/ moderate improvement in jerkiness/jitteriness - Nephrology decreased Lyrica CKD stage 5, secondary to diabetic nephropathy/hypertensive sclerosis- requiring HD MWF: - Nephrology consulted, appreciate recommendations -- Renal diet -- Hyperphosphatemia: Phoslo QAC -- Nephrocaps 1 tab QAM -- Epogen held for hgb >11.0 -- Advise patient to hold blood pressure medications in the morning on the day of dialysis to avoid hypotension during dialysis and allow for ultra filtration - Vascular surgery consulted- left antecubital cephalic vein AV fistula on 08/19 -- f/u outpatient in 2 weeks Leukocytosis, likely secondary to postop response- RESOLVED: - No s/s of infection- continue to monitor - Follow CBC Hyperkalemia, secondary to CKD stage V- RESOLVED: Follow PRP Hypercalcemia- noted during previous admission: - Serum free light chain ratio is elevated. UIEP was positive for IgG [place] monoclonal protein during outpatient workup - Followed by Dr. Delong, pending further evaluation Hyponatremia- STABLE Cor pulmonale: - Last echo 07/25/15: Hyperdynamic LV systolic function. Mild concentric LV hypertrophy. LV diastolic dysfunction. Mild RV dilatation and systolic dysfunction. Mild tricuspid regurgitation. Mildly elevated RV systolic pressure. Normal central venous pressure. Ejection Fraction = >70 % - Daily weights, I's and O's Chronic venous insufficiency: Elevate legs, TEDs HTN- CONTROLLED: - Continue Toprol-XL 150 mg - Hypotensive episodes- Verapamil CR 120 mg HS Dyslipidemia: Lipitor 40 mg daily DM- HbA1c 6.3% on 05/20/16: - Lantus 85 u BID and BSG ACHS w/ SSI - Pharmacy consulted for glycemic management - Resume home regimen at discharge Gout- ASYMPTOMATIC: Allopurinol 100 mg daily Peripheral neuropathy/chronic pain: - Pregabalin 75 mg BID - [place] q6 hrs PRN pain Chronic suppressive therapy- follows w/ ID: Continue Doxycycline 100 mg daily GI Prophylaxis: Protonix, Zantac, Maalox PRN, IV Zofran PRN, Colace and/or Milk of Mag PRN, MiraLAX daily DVT Prophylaxis: Heparin Code Status: LEVEL I, FULL Dispo: Discharge to [facility] Follow-Up: Please follow-up with [facility] provider within 24-48 hrs Follow-up with Vascular surgery in 2 weeks Please follow-up/keep all of your subspecialty appointments Current Hospital Diet Patient's current hospital diet: Renal Diet, Diabetes Type 2 Diet Discharge Diet Recommended Diet: Diabetes Type 2 Diet, Renal Diet Procedures Procedures Performed: Creation of left antecubital cephalic vein AV fistula Head CT CXR Pending Studies Studies pending at discharge: no Physician Orders On Transfer Dressing Changes: None IV Therapy: None Vital Signs: Routine Additional Orders: Patient becomes nauseous after dialysis- controlled w/ Zofran- please give directly after dialysis POLST Discussion: without POLST completion Laboratory Results Last Resulted CBC 08/24/16 06:51 Red Blood Count 3.50, Mean Corpuscular Volume 96.3, Mean Corpuscular Hemoglobin 30.3, Mean Corpuscular Hemoglobin Concent 31.5, Mean Platelet Volume 9.7, Neutrophils (%) (Auto) 76.1, Lymphocytes (%) (Auto) 9.9, Monocytes (%) (Auto) 11.5, Eosinophils (%) (Auto) 1.3, Basophils (%) (Auto) 0.2, Neutrophils # (Auto ) 7.45, Lymphocytes # (Auto) 0.97, Monocytes # (Auto) 1.13, Eosinophils # (Auto ) 0.13, Basophils # (Auto) 0.02 Last 24 Hours Test 08/24/16 11:31 08/24/16 16:49 08/24/16 20:09 08/25/16 07:42 Bedside Glucose 163 mg/dl 206 mg/dl 212 mg/dl 181 mg/dl Test 08/25/16 08:36 Medical Emergencies . Who to Call and When: Medical Emergencies: If at any time you feel your situation is an emergency, please call 911 immediately. . Non-Emergent Contact Non-Emergency issues call your: Primary Care Provider . . "Provider Documentation" section prepared by Vianney Fair. . Core Measure Problem Core Measures: None
[2016-08-25] MEDS ORDERED: B-COCAP20 PO (10:12)
--- NOTE | 2016-08-25 10:59 | Dialysis Progress Note ---
Hemodialysis Note Date of Service Aug 25, 2016. Chief Complaint Follow-up for end-stage renal disease on hemodialysis. Subjective Jazmin was seen and examined during dialysis this morning. She is overall feeling much better, blood pressure stable, denies any dizziness lightheadedness. Tolerating dialysis well. Review of Systems A complete review of systems was performed. Pertinent positives are noted above. All other systems are negative. Vital Signs Last 8 Hrs Date Time Temp Pulse Resp B/P (MAP) Pulse Ox O2 Delivery O2 Flow Rate FiO2 08/25/16 10:20 36.7 83 18 90 Nasal Cannula 08/25/16 10:15 75 126/63 08/25/16 10:00 71 121/65 08/25/16 09:45 77 123/65 08/25/16 09:30 78 137/72 08/25/16 09:15 77 135/68 08/25/16 09:09 78 130/63 08/25/16 08:52 36.7 83 143/70 (94) 08/25/16 08:00 Nasal Cannula 3.0 08/25/16 07:28 37.0 81 18 133/72 (92) 90 3.0 Last Recorded Weight Weight (Kilograms): 140.700 Physical Exam GENERAL: Middle-aged female, AAA x 3, pleasant, morbidly obese, not in any distress. NECK: Supple, no JVD. RESPIRATORY: Normal breathing efforts, no accessory muscle use, clear to auscultation bilaterally, no wheezes or rales. CARDIOVASCULAR: S1, S2 normal, rate rhythm regular. EXTREMITY: 1+ bilateral lower extremity edema NEURO: speech fluent. PSYCHIATRY: Normal mood and judgment Social History Smoking Status: Former smoker Drug Use: none Marital Status: Housing Status: lives with family Occupation: unemployed Laboratory Results Past 24 Hours Test 08/24/16 11:31 08/24/16 16:49 08/24/16 20:09 08/25/16 07:42 Bedside Glucose 163 mg/dl (70-90) 206 mg/dl (70-90) 212 mg/dl (70-90) 181 mg/dl (70-90) Test 08/25/16 08:36 Allergies Coded Allergies: Daptomycin (Verified Allergy, Mild, HIVES, 07/24/16) itching Iodine (Verified Allergy, Unknown, 07/24/16) Shellfish (Verified Allergy, Unknown, 07/24/16) Sulfamethoxazole w/Trimethoprim (Verified Allergy, Unknown, RASH, 07/24/16) Codeine (Verified Adverse Reaction, Unknown, NAUSEA, 08/14/16) has tolerated morphine Medications Current Inpatient Medications Medications (Trade) Dose Ordered Sig/Duyen Route Start Time Stop Time Status Last Admin Dose Admin Acetaminophen (Tylenol Tab) 650 mg Q4H PRN PO 08/13/16 23:45 09/12/16 23:44 08/17/16 03:19 650 MG Ondansetron HCl (Zofran Inj) 4 mg Q6H PRN IV 08/13/16 23:45 09/12/16 23:44 08/23/16 18:47 4 MG Miscellaneous (Iv Fluids Completed) 1 ea PRN PRN N/A 08/14/16 01:00 08/14/17 00:59 Miscellaneous Information (Consult Glycemic Management Pharmacy) 1 ea UD PRN N/A 08/14/16 08:19 09/13/16 08:18 Allopurinol (Zyloprim Tab) 100 mg DAILY PO 08/14/16 10:00 09/13/16 09:59 08/25/16 08:00 100 MG Atorvastatin Calcium (Lipitor Tab) 40 mg DAILY PO 08/14/16 10:00 09/13/16 09:59 08/25/16 07:58 40 MG Cholecalciferol (Vitamin D Tab) 1,000 inter.unit DAILY PO 08/14/16 10:00 09/13/16 09:59 08/25/16 08:01 1,000 INTER.UNIT Salmeterol Xinafoate/ Fluticasone (Advair Diskus 500/50 Inh) 1 puff BID INH 08/14/16 10:00 09/13/16 09:59 08/25/16 07:59 1 PUFF Albuterol/ Ipratropium (Duoneb) 3 ml Q6H PRN INH 08/14/16 08:00 09/13/16 07:59 Ammonium Lactate (Lac-Hydrin) 1 appl BID EXT 08/14/16 10:00 09/13/16 09:59 08/25/16 07:59 1 APPL Metoprolol Succinate (Toprol Xl Tab) 150 mg DAILY PO 08/14/16 10:00 09/13/16 09:59 08/24/16 08:45 150 MG Miconazole Nitrate (Desenex Powder) 1 appln UD PRN EXT 08/14/16 08:00 09/13/16 07:59 Pantoprazole Sodium (Protonix Tab) 40 mg DAILY PO 08/14/16 10:00 09/13/16 09:59 08/25/16 08:01 40 MG Prednisone (PredniSONE TAB) 15 mg DAILY PO 08/14/16 10:00 09/13/16 09:59 08/25/16 08:01 15 MG Pyridoxine HCl (Vitamin B-6 Tab) 200 mg DAILY PO 08/14/16 10:00 09/13/16 09:59 08/25/16 08:00 200 MG Tiotropium [place] (Spiriva Handihaler Inhaler) 1 puff DAILY INH 08/14/16 10:00 09/13/16 09:59 08/25/16 07:59 1 PUFF Insulin Aspart (novoLOG ASPART) SLIDING SCALE ACHS SC 08/14/16 08:00 09/13/16 07:59 08/25/16 08:10 29 UNITS Calcium Acetate (Phoslo Cap) 667 mg TIDM PO 08/14/16 11:30 09/13/16 11:29 08/25/16 07:58 667 MG Acetaminophen/ Hydrocodone Bitart ([place] 5/325 Tab) 1 tab Q6H PRN PO 08/14/16 22:30 08/28/16 22:29 08/23/16 22:12 1 TAB Polyethylene (Miralax Powder Packet) 17 gm DAILY PO 08/18/16 10:00 09/12/16 09:59 08/21/16 08:35 17 GM Famotidine (Pepcid Tab) 20 mg DAILY PO 08/19/16 09:00 09/18/16 08:59 08/25/16 07:59 20 MG Verapamil HCl ([place]-Sr Tab) 120 mg HS PO 08/21/16 21:00 09/13/16 20:59 08/24/16 21:55 120 MG Pregabalin (Lyrica Cap) 75 mg BID PO 08/21/16 21:00 09/17/16 15:59 08/25/16 08:03 75 MG Doxycycline Hyclate (Vibramycin Cap) 100 mg DAILY PO 08/22/16 09:00 09/21/16 08:59 08/25/16 07:59 100 MG Heparin Sodium (Porcine) (Heparin Sq 5000 Unit/0.5ml) 5,000 unit Q8 SQ 08/23/16 22:00 09/22/16 21:59 Vitamin B Complex/ Vit C/Folic Acid (Nephrocaps) 1 cap QAM PO 08/25/16 09:00 09/24/16 08:59 08/25/16 08:01 1 CAP Acetaminophen/ Hydrocodone Bitart ([place] 5/325 Tab) 2 tab Q6 PRN PO 08/24/16 15:15 09/07/16 15:14 08/25/16 08:04 2 TAB Insulin Glargine (Lantus Vial) 85 unit BID SC 08/25/16 21:00 09/24/16 20:59 Impression (1) ESRD on hemodialysis (2) Hypercapnic respiratory failure (3) Obesity hypoventilation syndrome (4) Hyperkalemia (5) Morbid obesity with BMI of 50.0-59.9, adult (6) Hyperphosphatemia (7) Hyponatremia Hemalatha is a 60-year-old female with morbid obesity, obesity hypoventilation syndrome, recurrent hypercapnia, 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 She has had multiple hospitalizations for volume overload and electrolyte abnormalities associated with diuretics. Hemalatha started hemodialysis during hospitalization in June 2016. Permcath was placed 07/25. She completed her first dialysis treatment on . She is on hemodialysis at [facility] TTS schedule. She currently dialyzes via a TDC. AVF created 08/19/[address] Thapa. Recommendations -- getting dialysis with 3 K bath, tolerating well, U.S. as tolerated. -- AVF healing appropriately with good bruit -- advise patient to hold blood pressure medications in the morning on the day of dialysis to avoid hypotension during dialysis and allow for ultra filtration --Restrict free water intake to less than 1500 mL -- Epogen held for hemoglobin >11 -- ordered given for dialysis at [facility] once patient gets discharged
--- NOTE | 2016-08-25 11:13 | Discharge Summary ---
Discharge Summary Date of Service Aug 25, 2016. (Vianney Fair, JOSHUA) Discharge Summary Admission Date: Aug 14, 2016 at 00:33 Discharge Date: Aug 26, 2016 Discharge Disposition: Rehab Principal Diagnosis: Frequent falls Problems/Secondary Diagnoses: Acute on chronic hypercapnic respiratory failure/obesity hypoventilation syndrome/MIKAYLA/COPD Frequent falls CKD stage 5, secondary to diabetic nephropathy/hypertensive sclerosis- requiring HD MWF Leukocytosis Hyperkalemia Hypercalcemia Hyponatremia Cor pulmonale Chronic venous insufficiency HTN Dyslipidemia DM Gout Peripheral neuropathy/chronic pain Chronic suppressive therapy with Doxycycline Immunizations: Have You Had Influenza Vaccine: Yes Influenza Vaccine Date: Apr 15, 2012 History of Tetanus Vaccine?: No History of Pneumococcal: Yes Pneumococcal Date: Jan 13, 2013 History of Hepatitis B Vaccine: No Procedures: HEAD CT NONCONTRAST CT DOSE: 1547.15 mGy.cm HISTORY: Mental status change Generalized Weakness TECHNIQUE: Multiaxial CT images of the head were performed without the use of intravenous contrast. Comparison: 06/14/2016 Findings: The paranasal sinuses and mastoid air cells are clear. The calvarium and skull base are intact. The ventricles and sulci are within normal limits. There is no mass, hematoma, midline shift, or acute infarct. Impression: No acute intracranial abnormality. Electronically signed by: Mateo Bone M.D. 08/13/2016 8:08 PM Dictated Date/Time: 08/13/2016 8:06 PM The status of this report is Signed. Draft = Not yet reviewed or approved by Radiologist. Signed = Reviewed and approved by Radiologist. CHEST ONE VIEW PORTABLE CLINICAL HISTORY: Generalized Weakness dyspnea COMPARISON STUDY: 07/23/2016 FINDINGS: Mild cardia megaly. Chronic prominence of pulmonary vasculature. Unchanging nodular density right upper lung. PermCath in superior vena cava. IMPRESSION: Chronic pulmonary vascular congestion. Mild stable cardiomegaly. Electronically signed by: Mateo Bone M.D. 08/13/2016 7:44 PM Dictated Date/Time: 08/13/2016 7:43 PM The status of this report is Signed. Draft = Not yet reviewed or approved by Radiologist. Signed = Reviewed and approved by Radiologist. DATE OF OPERATION: 08/19/2016 PREOPERATIVE DIAGNOSIS: End-stage renal disease. POSTOPERATIVE DIAGNOSIS: End-stage renal disease. PROCEDURE: Creation of left antecubital cephalic vein AV fistula. SURGEON: Dr. Jens Thapa. ASSISTANTS: Dr. Shirlene Obrien and TUAN Steel ESTIMATED BLOOD LOSS: 10 mL. CONDITION: Stable. COMPLICATIONS: None. Consultations: Nephrology Pulmonary Vascular surgery (Vianney Fair, PA-C) Medication Reconciliation New Medications: Ondansetron Hcl (Zofran) 4 Mg Tab 4 MG PO Q4H PRN for Nausea for 5 Days, #20 TAB B-Complex W/ C & Folic Acid (Renal) 1 Cap Cap 1 CAP PO QAM for 30 Days, #30 CAP Calcium Acetate (Phoslo 667 Mg) 667 Mg Cap 667 MG PO TIDM for 30 Days, CAP Famotidine (Famotidine) 20 Mg Tab 20 MG PO DAILY for 30 Days, #30 TAB Hydrocodone/Acetaminophen 5MG/325MG ([place] 5MG/325MG) Tab 1 TAB PO Q6H PRN for Pain for 3 Days, #12 TAB PRN PAIN Pregabalin (Lyrica) 75 Mg Cap 75 MG PO BID for 30 Days, #60 CAP Verapamil Hcl (Verapamil Hcl Er) 120 Mg Tab 120 MG PO HS for 30 Days, TAB Continued Medications: Allopurinol (Zyloprim) 100 Mg Tab 100 MG PO DAILY, TAB Ascorbic Acid (Vitamin C 500 mg) 1 Chw Chw 1000 MG PO DAILY Atorvastatin (Lipitor) 40 Mg Tab 40 MG PO DAILY, TAB Cholecalciferol (Vitamin D3) 1,000 Unit Tab 1000 INTER.UNIT PO DAILY, TAB Doxycycline Hyclate (Doxycycline Hyclate) 100 Mg Tab 100 MG PO DAILY, TAB Fluticasone Prop/Salmeterol (Advair Diskus 500/50 60 Dose) 1 Ea Aerp 1 PUFF INH BID, INHALER Home O2 Therapy (Oxygen) Gas 3 LITERS NA CONTINOUS, BTL Insulin Aspart (Novolog Flexpen) 100 Units/Ml Inj 50 UNITS SQ W/BREAKFAST Insulin Aspart (Novolog Flexpen) 100 Units/Ml Inj 50 UNITS SQ W/LUNCH Insulin Aspart (Novolog Flexpen) 100 Units/Ml Inj 90 UNITS SQ W/SUPPER Insulin Aspart (Novolog Flexpen) 100 Units/Ml Inj 40 UNITS SQ HS PRN for Late Night Snack Insulin Glargine ([place] Solostar) 300 Unit/Ml Inj 70 UNITS SC TID ADMINISTER WITH BREAKFAST, EVENING MEAL AND AT BEDTIME Ipratropium-Albuterol (Duoneb) 3 Ml Nebu 1 TREATMENT INH Q6H PRN for SOB/Wheezing, INHA Lactic Acid (Ammonium Lactate) (Amlactin) 12 % Lot 1 APPLN TOP BID APPLY AND RUB IN A THIN FILM TO AFFECTED AREAS Metoprolol Succ (Toprol Xl) (Toprol-Xl ) 100 Mg Tabcr 150 MG PO DAILY, TAB Miconazole Nitrate (Desenex Shake Powder) 43 Appln/43 Gm Powd 1 APPLN TOP UD PRN for Affected Skin Folds Multiple Vitamins W/ Minerals (One Daily For Women) 1 Tab Tab 1 TAB PO DAILY Pantoprazole (Protonix) 40 Mg Tab 40 MG PO DAILY, TAB Prednisone Tab (Prednisone) 10 Mg Tab 15 MG PO DAILY, TAB Pyridoxine (Vitamin B6) 100 Mg Tab 200 MG PO DAILY, TAB Tiotropium [place] (Spiriva Handihaler) 30 Puff/540 Mcg Aerp 1 CAP INH DAILY, INHALER Vitamin E (Vitamin E) 400 Unit Tab 800 INTER.UNIT PO DAILY Discontinued Medications: Lorcaserin Hcl (Belviq) 10 Mg Tab 10 MG PO BID Pregabalin (Lyrica) 150 Mg Cap 150 MG PO BID, CAP Verapamil Hcl (Verapamil Hcl Er) 240 Mg Cap 240 MG PO HS, CAP Discharge Exam Review of Systems: Constitutional: No fever, No chills, No sweats, No weight loss, No weakness , No fatigue, No problem reported Respiratory: No cough, No shortness of breath, No hemoptysis Cardiovascular: No chest pain, No edema, No palpitations Abdomen: No pain, No nausea, No vomiting, No diarrhea, No constipation Musculoskeletal: No joint pain, No muscle pain, No swelling, No calf pain Neurologic: No weakness, No numbness/tingling Psychiatric: No depression symptoms, No anxiety Hematologic / Lymphatic: No abnormal bleeding/bruising Integumentary: No rash, No itch, No new/changing skin lesions Physical Exam: General Appearance: no apparent distress, + obese Eyes: normal inspection, PERRL ENT: hearing grossly normal Neck: supple Respiratory/Chest: lungs clear, no respiratory distress, no accessory muscle use Cardiovascular: regular rate, rhythm Abdomen / GI: normal bowel sounds, non tender, soft Extremities: + swelling (+1 pitting edema of bilateral lower extremities ), + pertinent finding (TEDs) 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: alert, normal mood/affect, oriented x 3 Skin: normal color, warm/dry, no rash (Vianney Fair, JOSHUA) Hospital Course H&P on admission: 60-year-old female with a completed medical history consisting of chronic kidney disease currently on hemodialysis, diabetes mellitus, CHF, obesity hypoventilation, hypercalcemia presented to the ER with worsening generalized weakness for the last 2 days. Per the patient had been really weak and has been falling due to increased jerkiness and states that it is hard for him to take care of her. She has end-stage renal disease and had been undergoing dialysis and stated that she usually gets very weak and tired after dialysis. This afternoon she fell while trying to get out of the car but her had held her. Denied any injury to the head. Denies any fevers or chills. Denies chest pain, palpitations, nausea, vomiting or abdominal pain but complains of worsening shortness of breath. She states that the shortness of breath is mainly due to having her legs raised and abdomen pushing into her chest. She also complains of very severe low back pain secondary to tailbone fracture which she had several years ago and states that none of her pain medications at home are helping. Denies any numbness or tingling, bowel or bladder incontinence Physical Exam Vital Signs Date Time Temp Pulse Resp B/P (MAP) Pulse Ox O2 Delivery O2 Flow Rate FiO2 08/13/16 22:52 84 18 160/74 90 Nasal Cannula 4.0 08/13/16 22:25 84 19 90 08/13/16 22:20 85 23 92 08/13/16 22:15 84 25 95 08/13/16 22:14 157/73 08/13/16 22:13 84 24 147/73 95 Nasal Cannula 5.0 08/13/16 19:45 87 20 96 08/13/16 19:40 87 19 96 08/13/16 19:35 88 Room Air 08/13/16 19:35 86 17 96 08/13/16 19:31 146/72 08/13/16 19:30 85 19 96 08/13/16 19:27 86 08/13/16 19:26 36.8 87 22 151/97 92 Nasal Cannula 4.0 08/13/16 19:22 151/97 General Appearance: + obese Head: normocephalic Eyes: normal inspection ENT: hearing grossly normal Neck: supple Respiratory/Chest: lungs clear, normal breath sounds Cardiovascular: regular rate, rhythm Abdomen/GI: normal bowel sounds, non tender, soft Neurologic/Psych: alert, normal mood/affect, oriented x 3 Acute on chronic hypercapnic respiratory failure- STABLE/obesity hypoventilation syndrome/MIKAYLA/COPD- STABLE: - Continue O2- wears 3-4L of O2 supplement at home, and BiPAP HS - DuoNebs q6 hrs PRN - Continue Advair, Spiriva, and Prednisone 15 mg daily - Pulmonary consulted, appreciate recommendations Frequent falls, likely secondary to deconditioning, weakness, jerkiness: - Head CT- Negative for any acute changes - PT/OT- recommending acute inpatient rehab- patient agreeable - Belviq 10 mg BID d/c'd w/ moderate improvement in jerkiness/jitteriness - Nephrology decreased [place] CKD stage 5, secondary to diabetic nephropathy/hypertensive sclerosis- requiring HD MWF: - Nephrology consulted, appreciate recommendations -- Renal diet -- Hyperphosphatemia: Phoslo QAC -- Nephrocaps 1 tab QAM -- Epogen held for hgb >11.0 -- Advise patient to hold blood pressure medications in the morning on the day of dialysis to avoid hypotension during dialysis and allow for ultra filtration - Vascular surgery consulted- left antecubital cephalic vein AV fistula on 08/19 -- f/u outpatient in 2 weeks Leukocytosis, likely secondary to postop response- RESOLVED: - No s/s of infection- continue to monitor - Follow CBC Hyperkalemia, secondary to CKD stage V- RESOLVED: Follow PRP Hypercalcemia- noted during previous admission: - Serum free light chain ratio is elevated. UIEP was positive for IgG [place] monoclonal protein during outpatient workup - Followed by Dr. Delong, pending further evaluation Hyponatremia- STABLE Cor pulmonale: - Last echo 07/25/15: Hyperdynamic LV systolic function. Mild concentric LV hypertrophy. LV diastolic dysfunction. Mild RV dilatation and systolic dysfunction. Mild tricuspid regurgitation. Mildly elevated RV systolic pressure. Normal central venous pressure. Ejection Fraction = >70 % - Daily weights, I's and O's Chronic venous insufficiency: Elevate legs, TEDs HTN- CONTROLLED: - Continue Toprol-XL 150 mg - Hypotensive episodes- Verapamil CR 120 mg HS Dyslipidemia: Lipitor 40 mg daily DM- HbA1c 6.3% on 05/20/16: - Lantus 85 u BID and BSG ACHS w/ SSI - Pharmacy consulted for glycemic management - Resume home regimen at discharge Gout- ASYMPTOMATIC: Allopurinol 100 mg daily Peripheral neuropathy/chronic pain: - Pregabalin 75 mg BID - [place] q6 hrs PRN pain Chronic suppressive therapy- follows w/ ID: Continue Doxycycline 100 mg daily GI Prophylaxis: Protonix, Zantac, Maalox PRN, IV Zofran PRN, Colace and/or Milk of Mag PRN, MiraLAX daily DVT Prophylaxis: Heparin Code Status: LEVEL I, FULL Dispo: Discharge to [facility] Total Time Spent: Greater than 30 minutes This includes examination of the patient, discharge planning, medication reconciliation, and communication with other providers. (Vianney Fair, JOSHUA) I personally examined pt and verified all lewis points w Destiney Fair PA-C feeling better than she typically has day after HD. some nausea improved w zofran, some headache and neck pain but not as severe. ready to go to [facility] vitals noted nad breahting unlabored ost/msk - R > L suboccipitals and Cspine paraspinals high tone/tender/decreased ROM - inhibitory pressure and unwinding - pt tolerated well and noted change in headache; taught suboccipital inhibitory pressure to as well weakness - for [facility] nausea/headaches - seems to be related to adjustment to HD. ongoing supportive care tension headache/Cspine somatic dysfunction - OMT as above (Michael Lockhart, D.O.) Discharge Instructions Please refer to the electronic Patient Visit Report (Discharge Instructions) for additional information. (Vianney Fair PA-C) Follow-Up Follow-up with [facility] provider within 24-48 hrs Please follow-up with your PCP within 5-7 days after discharge from [place] Please follow-up with Vascular surgery in 2 weeks Please follow-up/keep all of your subspecialty appointments (Vianney Fair PA-C) [facility]
[2016-08-25 17:39] LABS: BUN/CREATININE RATIO 6.4 (10-20); CALCIUM 8.2 mg/dl (8.5-10.1); CREATININE 4.9 mg/dl (0.60-1.20); PHOSPHORUS 3.8 mg/dl (2.5-4.9); POTASSIUM 4.1 mmol/L (3.5-5.1)
--- NOTE | 2016-08-25 17:50 | Progress Note ---
Subjective Date of Service: Aug 25, 2016. Subjective Pt evaluation today including: conversation w/ patient, conversation w/ family , physical exam, chart review, lab review, review of inpatient medication list doing better after HD than she has been - less fatigued less headache - was getting bad post HD headahces and fairly severe fatigue but this isn't as bad - notes nephrology did less aggressive dialysis this time. was for HSR today but still waiting on approval. notes he's actually happy about this because he thinsk she'll do better going tomorrow on non HD day as long as she' s feeling better. Problem List Medical Problems: (1) Altered mental status Status: Acute (2) Anasarca Status: Acute (3) Anasarca Status: Acute (4) Bilateral cellulitis of lower leg Status: Acute (5) Bilateral lower leg cellulitis Status: Acute (6) Change in mental status Status: Acute (7) Chronic renal failure Status: Acute (8) CO2 retention Status: Acute (9) Dehydration Status: Acute (10) Dyspnea on exertion Status: Acute (11) Fall Status: Acute (12) Fever Status: Acute (13) Fever Status: Acute (14) Generalized weakness Status: Acute (15) Hypercarbia Status: Acute (16) Hyperkalemia Status: Acute (17) Hypokalemia Status: Acute (18) Hypoxemia Status: Acute (19) Hypoxia Status: Acute (20) Lumbar strain Status: Acute (21) Respiratory failure Status: Acute (22) Respiratory failure with hypercapnia Status: Acute (23) Weakness Status: Acute (24) Weight gain Status: Acute (25) Wrist pain Status: Acute Review of Systems ROS otherwise negative except for as above Objective Vital Signs Date Time Temp Pulse Resp B/P (MAP) Pulse Ox O2 Delivery O2 Flow Rate FiO2 08/25/16 16:02 36.7 88 18 111/64 (80) 94 Nasal Cannula 3.0 08/25/16 13:15 36.7 81 133/64 (87) 08/25/16 13:13 81 133/64 08/25/16 13:00 79 136/67 08/25/16 12:45 79 132/62 08/25/16 12:30 76 137/69 08/25/16 12:15 79 154/69 08/25/16 12:00 80 143/70 08/25/16 11:45 76 133/66 08/25/16 11:30 74 128/68 08/25/16 11:15 74 124/66 08/25/16 11:00 74 125/63 08/25/16 10:45 81 114/70 08/25/16 10:30 79 115/64 08/25/16 10:20 36.7 83 18 90 Nasal Cannula 08/25/16 10:15 75 126/63 08/25/16 10:00 71 121/65 08/25/16 09:45 77 123/65 08/25/16 09:30 78 137/72 08/25/16 09:15 77 135/68 08/25/16 09:09 78 130/63 08/25/16 08:52 36.7 83 143/70 (94) 08/25/16 08:00 Nasal Cannula 3.0 08/25/16 07:28 37.0 81 18 133/72 (92) 90 3.0 08/24/16 23:59 CPAP 3.0 08/24/16 23:42 37.0 87 18 127/68 (87) 92 Nasal Cannula 3.0 08/24/16 20:00 96 Nasal Cannula 3.0 Physical Exam General Appearance: no apparent distress Eyes: EOMI ENT: hearing grossly normal Neck: trachea midline Respiratory/Chest: no respiratory distress, no accessory muscle use Extremities: normal range of motion 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: [employer] II-XII nml as tested Skin: normal color, warm/dry Laboratory Results Last 24 Hours Test 08/24/16 20:09 08/25/16 07:42 08/25/16 13:48 08/25/16 16:26 Bedside Glucose 212 mg/dl 181 mg/dl 155 mg/dl Sodium Level 132 mmol/L Potassium Level 4.1 mmol/L Chloride Level 98 mmol/L Carbon Dioxide Level 25 mmol/L Anion Gap 9.0 mmol/L Blood Urea Nitrogen 31 mg/dl Creatinine 4.90 mg/dl Est Creatinine Clear Calc Drug Dose 17.0 ml/min Estimated GFR () 10.2 Estimated GFR (Non- 8.8 BUN/Creatinine Ratio 6.4 Random Glucose 207 mg/dl Calcium Level 8.2 mg/dl Phosphorus Level 3.8 mg/dl Albumin 2.9 gm/dl Test 08/25/16 16:53 Bedside Glucose 191 mg/dl Assessment and Plan Acute on chronic hypercapnic respiratory failure- STABLE/obesity hypoventilation syndrome/MIKAYLA/COPD- STABLE: - Continue O2- wears 3-4L of O2 supplement at home, and BiPAP HS - DuoNebs q6 hrs PRN - Continue Advair, Spiriva, and Prednisone 15 mg daily - Pulmonary consulted, appreciate recommendations Frequent falls, likely secondary to deconditioning, weakness, jerkiness: - Head CT- Negative for any acute changes - PT/OT- recommending acute inpatient rehab- patient agreeable - Belviq 10 mg BID d/c'd w/ moderate improvement in jerkiness/jitteriness - Nephrology decreased Lyrica CKD stage 5, secondary to diabetic nephropathy/hypertensive sclerosis- requiring HD MWF: - Nephrology consulted, appreciate recommendations -- Renal diet -- Hyperphosphatemia: Phoslo QAC -- Nephrocaps 1 tab QAM -- Epogen held for hgb >11.0 -- Advise patient to hold blood pressure medications in the morning on the day of dialysis to avoid hypotension during dialysis and allow for ultra filtration - Vascular surgery consulted- left antecubital cephalic vein AV fistula on 08/19 -- f/u outpatient in 2 weeks Leukocytosis, likely secondary to postop response- RESOLVED: - No s/s of infection- continue to monitor - Follow CBC Hyperkalemia, secondary to CKD stage V- RESOLVED: Follow PRP Hypercalcemia- noted during previous admission: - Serum free light chain ratio is elevated. UIEP was positive for IgG Waldo monoclonal protein during outpatient workup - Followed by Dr. Delong, pending further evaluation Hyponatremia- STABLE Cor pulmonale: - Last echo 07/25/15: Hyperdynamic LV systolic function. Mild concentric LV hypertrophy. LV diastolic dysfunction. Mild RV dilatation and systolic dysfunction. Mild tricuspid regurgitation. Mildly elevated RV systolic pressure. Normal central venous pressure. Ejection Fraction = >70 % - Daily weights, I's and O's Chronic venous insufficiency: Elevate legs, TEDs HTN- CONTROLLED: - Continue Toprol-XL 150 mg - Hypotensive episodes- Verapamil CR 120 mg HS Dyslipidemia: Lipitor 40 mg daily DM- HbA1c 6.3% on 05/20/16: - Lantus 85 u BID and BSG ACHS w/ SSI - Pharmacy consulted for glycemic management - Resume home regimen at discharge Gout- ASYMPTOMATIC: Allopurinol 100 mg daily Peripheral neuropathy/chronic pain: - Pregabalin 75 mg BID - Overton q6 hrs PRN pain Chronic suppressive therapy- follows w/ ID: Continue Doxycycline 100 mg daily GI Prophylaxis: Protonix, Zantac, Maalox PRN, IV Zofran PRN, Colace and/or Milk of Mag PRN, MiraLAX daily DVT Prophylaxis: Heparin Code Status: LEVEL I, FULL Dispo: Discharge to [facility] Continued [facility] stay due to: home environment unsafe for pt Discharge planning: rehab hospital
[2016-08-25] MEDS: ONDANSETRON INJ 2 MG/ML 2 ML VIAL IV PRN (19:57)
[2016-08-25] MEDS: VERAPAMIL HCL 120 MG TABCR PO SCH (21:45)
[2016-08-26] MEDS: ONDANSETRON INJ 2 MG/ML 2 ML VIAL IV PRN ×2 (02:27→08:37)
[2016-08-26] MEDS: HEPARIN SOD 5000 UNIT/0.5 ML CARP SQ SCH ×2 (05:31→14:00)
[2016-08-26 07:07] VITALS: BP 134/69; PULSE 88; TEMP 37.1; O2SAT 96
[2016-08-26] MEDS: FLUTICASONE/SALMETEROL (ADVAIR) 500/50 INH 14 PUFF INH SCH (08:22)
[2016-08-26] MEDS ORDERED: ONDA4TAB65 PO (08:22)
[2016-08-26] MEDS: CALCIUM ACETATE 667MG GELCAP PO SCH ×2 (08:23→12:55)
[2016-08-26] MEDS: ALLOPURINOL 100 MG TAB PO SCH (08:24)
[2016-08-26] MEDS: DOXYCYCLINE HYCLATE 100 MG CAP PO SCH (08:24)
[2016-08-26] MEDS: PANTOprazole SOD 40 MG TAB PO SCH (08:24)
[2016-08-26] MEDS: ATORVASTATIN 40 MG TAB PO SCH (08:24)
[2016-08-26] MEDS: FAMOTIDINE 20 MG TAB PO SCH (08:24)
[2016-08-26] MEDS: METOPROLOL SUCC 50MG EXT REL TAB PO SCH (08:25)
[2016-08-26] MEDS: PYRIDOXINE HCL 50 MG TAB PO SCH (08:25)
[2016-08-26] MEDS: CHOLECALCIFEROL 1000 INTER.UNIT TAB PO SCH (08:25)
[2016-08-26] MEDS: NEPHROCAPS PO SCH (08:26)
[2016-08-26] MEDS: POLYETHYLENE (MIRALAX) 17 GM PACK PO SCH (08:29)
[2016-08-26] MEDS: AMMONIUM LACTATE 12% LOTION 225 GM BTL EXT SCH (08:30)
[2016-08-26] MEDS: PREGABALIN 75 MG CAP PO SCH (08:35)
[2016-08-26] MEDS: TIOTROPIUM BROMIDE 5 PUFF/90 MCG INH INH SCH (08:35)
[2016-08-26] MEDS: INSULIN GLARGINE SC SCH (08:44)
[2016-08-26] MEDS: INSULIN ASPART 100 UNITS/ML 3 ML PEN SC SCH ×2 (08:44→13:02)
--- NOTE | 2016-08-26 10:23 | Nephrology Progress Note ---
Nephrology Progress Note Date of Service Aug 26, 2016. Chief Complaint Follow-up for end-stage renal disease on hemodialysis. Grant Wu was seen and examined in her room this morning. She has been otherwise feeling well however she reports yesterday she fell poorly. she tolerated dialysis for 4 hours and immediately after dialysis she was feeling okay however after supper and over night she was feeling nauseous which she has been feeling after dialysis treatment. she had 2.5 liters of ultra filtration yesterday. Currently blood pressure and volume status and electrolyte acceptable. Review of Systems A complete review of systems was performed. Pertinent positives are noted above. All other systems are negative. Vital Signs Last 8 Hrs Date Time Temp Pulse Resp B/P (MAP) Pulse Ox O2 Delivery O2 Flow Rate FiO2 08/26/16 07:34 Nasal Cannula 3.0 08/26/16 07:07 37.1 88 18 134/69 (90) 96 3.0 Last Recorded Weight Weight (Kilograms): 139.600 Physical Exam GENERAL: Middle-aged female, AAA x 3, pleasant, morbidly obese, not in any distress. NECK: Supple, no JVD. RESPIRATORY: Normal breathing efforts, no accessory muscle use, clear to auscultation bilaterally, no wheezes or rales. CARDIOVASCULAR: S1, S2 normal, rate rhythm regular. EXTREMITY: 1+ bilateral lower extremity edema NEURO: speech fluent. PSYCHIATRY: Normal mood and judgment Family History Cancer Diabetes mellitus Gallbladder disease Heart disease Lung disease Social History Smoking Status: Former smoker Drug Use: none Marital Status: Housing Status: lives with family Occupation: unemployed Laboratory Results Past 24 Hours 08/25/16 16:26 Test 08/25/16 13:48 08/25/16 16:26 08/25/16 16:53 08/25/16 21:38 Bedside Glucose 155 mg/dl (70-90) 191 mg/dl (70-90) 132 mg/dl (70-90) Anion Gap 9.0 mmol/L (3-11) Est Creatinine Clear Calc Drug Dose 17.0 ml/min Estimated GFR () 10.2 Estimated GFR (Non- 8.8 BUN/Creatinine Ratio 6.4 (10-20) Calcium Level 8.2 mg/dl (8.5-10.1) Phosphorus Level 3.8 mg/dl (2.5-4.9) Albumin 2.9 gm/dl (3.4-5.0) Test 08/26/16 07:16 Bedside Glucose 141 mg/dl (70-90) Allergies Coded Allergies: Daptomycin (Verified Allergy, Mild, HIVES, 07/24/16) itching Iodine (Verified Allergy, Unknown, 07/24/16) Shellfish (Verified Allergy, Unknown, 07/24/16) Sulfamethoxazole w/Trimethoprim (Verified Allergy, Unknown, RASH, 07/24/16) Codeine (Verified Adverse Reaction, Unknown, NAUSEA, 08/14/16) has tolerated morphine Medications Current Inpatient Medications Medications (Trade) Dose Ordered Sig/Duyen Route Start Time Stop Time Status Last Admin Dose Admin Acetaminophen (Tylenol Tab) 650 mg Q4H PRN PO 08/13/16 23:45 09/12/16 23:44 08/17/16 03:19 650 MG Ondansetron HCl (Zofran Inj) 4 mg Q6H PRN IV 08/13/16 23:45 09/12/16 23:44 08/26/16 08:37 4 MG Miscellaneous (Iv Fluids Completed) 1 ea PRN PRN N/A 08/14/16 01:00 08/14/17 00:59 Miscellaneous Information (Consult Glycemic Management Pharmacy) 1 ea UD PRN N/A 08/14/16 08:19 09/13/16 08:18 Allopurinol (Zyloprim Tab) 100 mg DAILY PO 08/14/16 10:00 09/13/16 09:59 08/26/16 08:24 100 MG Atorvastatin Calcium (Lipitor Tab) 40 mg DAILY PO 08/14/16 10:00 09/13/16 09:59 08/26/16 08:24 40 MG Cholecalciferol (Vitamin D Tab) 1,000 inter.unit DAILY PO 08/14/16 10:00 09/13/16 09:59 08/26/16 08:25 1,000 INTER.UNIT Salmeterol Xinafoate/ Fluticasone (Advair Diskus 500/50 Inh) 1 puff BID INH 08/14/16 10:00 09/13/16 09:59 08/26/16 08:22 1 PUFF Albuterol/ Ipratropium (Duoneb) 3 ml Q6H PRN INH 08/14/16 08:00 09/13/16 07:59 Ammonium Lactate (Lac-Hydrin) 1 appl BID EXT 08/14/16 10:00 09/13/16 09:59 08/25/16 07:59 1 APPL Metoprolol Succinate (Toprol Xl Tab) 150 mg DAILY PO 08/14/16 10:00 09/13/16 09:59 08/26/16 08:25 150 MG Miconazole Nitrate (Desenex Powder) 1 appln UD PRN EXT 08/14/16 08:00 09/13/16 07:59 Pantoprazole Sodium (Protonix Tab) 40 mg DAILY PO 08/14/16 10:00 09/13/16 09:59 08/26/16 08:24 40 MG Prednisone (PredniSONE TAB) 15 mg DAILY PO 08/14/16 10:00 09/13/16 09:59 08/26/16 08:25 15 MG Pyridoxine HCl (Vitamin B-6 Tab) 200 mg DAILY PO 08/14/16 10:00 09/13/16 09:59 08/26/16 08:25 200 MG Tiotropium Badger (Spiriva Handihaler Inhaler) 1 puff DAILY INH 08/14/16 10:00 09/13/16 09:59 08/26/16 08:35 1 PUFF Insulin Aspart (novoLOG ASPART) SLIDING SCALE ACHS SC 08/14/16 08:00 09/13/16 07:59 08/26/16 08:44 19 UNITS Calcium Acetate (Phoslo Cap) 667 mg TIDM PO 08/14/16 11:30 09/13/16 11:29 08/26/16 08:23 667 MG Acetaminophen/ Hydrocodone Bitart (Beaver 5/325 Tab) 1 tab Q6H PRN PO 08/14/16 22:30 08/28/16 22:29 08/23/16 22:12 1 TAB Polyethylene (Miralax Powder Packet) 17 gm DAILY PO 08/18/16 10:00 09/12/16 09:59 08/21/16 08:35 17 GM Famotidine (Pepcid Tab) 20 mg DAILY PO 08/19/16 09:00 09/18/16 08:59 08/26/16 08:24 20 MG Verapamil HCl (Calan-Sr Tab) 120 mg HS PO 08/21/16 21:00 09/13/16 20:59 08/25/16 21:45 120 MG Pregabalin (Lyrica Cap) 75 mg BID PO 08/21/16 21:00 09/17/16 15:59 08/26/16 08:35 75 MG Doxycycline Hyclate (Vibramycin Cap) 100 mg DAILY PO 08/22/16 09:00 09/21/16 08:59 08/26/16 08:24 100 MG Heparin Sodium (Porcine) (Heparin Sq 5000 Unit/0.5ml) 5,000 unit Q8 SQ 08/23/16 22:00 09/22/16 21:59 Vitamin B Complex/ Vit C/Folic Acid (Nephrocaps) 1 cap QAM PO 08/25/16 09:00 09/24/16 08:59 08/26/16 08:26 1 CAP Acetaminophen/ Hydrocodone Bitart (Beaver 5/325 Tab) 2 tab Q6 PRN PO 08/24/16 15:15 09/07/16 15:14 08/25/16 14:52 2 TAB Insulin Glargine (Lantus Vial) 85 unit BID SC 08/25/16 21:00 09/24/16 20:59 08/26/16 08:44 85 UNIT Impression (1) ESRD on hemodialysis (2) Hypercapnic respiratory failure (3) Obesity hypoventilation syndrome (4) Hyperkalemia (5) Morbid obesity with BMI of 50.0-59.9, adult (6) Hyperphosphatemia (7) Hyponatremia Hemalatha is a 60-year-old female with morbid obesity, obesity hypoventilation syndrome, recurrent hypercapnia, advanced chronic kidney disease requiring [employer], right heart failure. She has had multiple hospitalizations for volume overload and electrolyte abnormalities associated with diuretics. Hemalatha started hemodialysis during hospitalization in June 2016. Permcath was placed 07/25. She completed her first dialysis treatment on . She is on hemodialysis at [facility] TTS schedule. She currently dialyzes via a TDC. AVF created 08/19/[address] Thapa. Recommendations -- Will aim for ultra filtration 1-2 liters to help improve her symptoms after dialysis -- AVF healing appropriately with good bruit -- advise patient to hold blood pressure medications in the morning on the day of dialysis to avoid hypotension during dialysis and allow for ultra filtration --Restrict free water intake to less than 1500 mL -- Epogen held for hemoglobin >11 -- ordered given for dialysis at [facility] once patient gets discharged
[2016-08-26] MEDS: ACETAMINOPHEN 325 MG TAB PO PRN (11:01)
[2016-09-22] MEDS ORDERED: PRED10TA PO (14:40)
[2016-11-27] MEDS ORDERED: RXC5 PO (13:39)
[2016-11-27] MEDS ORDERED: LYR50 PO (13:39)
[2016-11-27] MEDS ORDERED: LDDP5 TD (13:39)
== END 2016-08-26 14:30 | DRG 673 ==
LOC: EDBD 19:15 → C.EDB 19:17 → C.2T 08-14 00:33 → ENRESERV 08-14 00:58 → C.2T 08-14 06:10 → ENRESERV 08-14 11:13 → CANRESERV 08-14 11:13 → CANBEDREQ 08-14 13:12 → ENRESERV 08-14 16:13 → C.MED 08-14 16:39 → C.MS2W 08-21 09:42
PROVIDERS: ADMIT Family Medicine; ATTEND Family Medicine
PROC: 031809F Bypass Left Brachial Artery to Lower Arm Vein with Autologous Venous Tissue, Open Approach (ICD-10-PCS; principal; 2016-08-19 12:00)
PROC: 5A1D60Z (ICD-10-PCS; 2016-08-22)
DX: I13.11 Hypertensive heart and chronic kidney disease without heart failure, with stage 5 chronic kidney disease, or end stage renal disease (principal); N17.9 Acute kidney failure, unspecified; N18.6 End stage renal disease; J96.22 Acute and chronic respiratory failure with hypercapnia; I50.32 Chronic diastolic (congestive) heart failure; E87.1 Hypo-osmolality and hyponatremia; L03.311 Cellulitis of abdominal wall; Z68.43 Body mass index [BMI] 50.0-59.9, adult; E66.2 Morbid (severe) obesity with alveolar hypoventilation; L03.115 Cellulitis of right lower limb; L03.116 Cellulitis of left lower limb; M50.30 Other cervical disc degeneration, unspecified cervical region; J44.9 Chronic obstructive pulmonary disease, unspecified; E11.21 Type 2 diabetes mellitus with diabetic nephropathy; Z88.2 Allergy status to sulfonamides; G47.33 Obstructive sleep apnea (adult) (pediatric); Z79.4 Long term (current) use of insulin; E87.5 Hyperkalemia; E83.52 Hypercalcemia; I87.2 Venous insufficiency (chronic) (peripheral); Z99.2 Dependence on renal dialysis; I95.3 Hypotension of hemodialysis; M1A.9XX0 Chronic gout, unspecified, without tophus (tophi); E78.5 Hyperlipidemia, unspecified; E11.40 Type 2 diabetes mellitus with diabetic neuropathy, unspecified; Z79.899 Other long term (current) drug therapy; I89.0 Lymphedema, not elsewhere classified; R91.1 Solitary pulmonary nodule; E83.39 Other disorders of phosphorus metabolism; E86.0 Dehydration

== ENCOUNTER → 2016-09-12 | Outpatient (CLI) | payer BC ==
[~2016-09-12] MED LIST changes: +B-COCAP20 PO; -BMX1 PO; +CALC667C PO; +CEPH500C PO; +DOXY100T PO; -DXY100 PO; +FAMO1TAB47 PO; +HYDR-5688 PO; +INSU1.2I SC; -INSU1.2I SQ; -LORC1TAB PO; +LYR75 PO; -MCTP EXT; +MCTP TOP; +OXGN; +PANT40TA PO; +PHS667 PO; -PREG1CAP70 PO; -PRT40 PO; -ULT50X PO; +VERA1TAB52 PO; -VRPSR240 PO; -VTMB122500 PO
--- NOTE | 2016-09-12 14:08 | DIAGNOSTIC IMAGING REPORT ---
SKELETAL SURVEY COMPLETE HISTORY:60 yearsFemaleMONOCLONAL GAMMOPATHY OF UNCERTAIN SIG (DISORDER) COMPARISON: Head CT 08/13/2016, CT pelvis 07/23/2016 TECHNIQUE: Complete skeletal survey was obtained of the appendicular and axial skeletal system. FINDINGS: No calvarial lytic lesions are seen. There is a focal area of asymmetric cortical thickening along the medial aspect of the distal left femoral diaphysis measuring up to 4.2 x 1.4 cm. The osseous structures are otherwise unremarkable without suspicious lytic or blastic lesions identified. Multifocal degenerative changes are seen throughout the spine, hips, knees and shoulders. Note is made of a dual lumen right internal jugular hemodialysis catheter terminating in the region of the mid SVC. There is atherosclerosis of the aorta. Calcification of the right upper abdomen is nonspecific, 3.4 x 1.8 cm and may reflect cholelithiasis. IMPRESSION: 1. Focal area of asymmetric cortical thickening along the medial aspect of the distal left femoral diaphysis warrents further evaluation with dedicated left femur radiographs. 2. No suspicious lytic lesions are identified. The above report was generated using voice recognition software. It may contain grammatical, syntax or spelling errors. Electronically signed by: Perry Childress M.D. 09/12/2016 2:07 PM Dictated Date/Time: 09/12/2016 1:59 PM
== END | disposition home or self-care (01) ==
LOC: C.RADPV 11:17
PROVIDERS: ATTEND Internal Medicine Hematology & Oncology
DX: D47.2 Monoclonal gammopathy (principal)

== ENCOUNTER 2016-09-16 17:08 | Emergency (ER) | payer BC ==
[~2016-09-16] VITALS: Ht 165.1 cm; Wt 140.5 kg
[~2016-09-16 17:08] MED LIST changes: -CALC667C PO; -CEPH500C PO; -DOXY100C76 PO; -LDDP5 TD; -LYR50 PO; -RXC5 PO; -SILV1CRE73 TOP
[2016-09-16 17:15] VITALS: Ht 165.1 cm; Wt 140.5 kg
--- NOTE | 2016-09-16 17:38 | EMERGENCY ROOM VISIT NOTE ---
History First contact with patient: 17:20 Chief Complaint: FALL Stated Complaint: TORE RT TOENAIL OFF,LF LEG IS SEEPING History of Present Illness The patient is a 60 year old female who presents to the Emergency Room via private vehicle accompanied by with complaints of "tore right toenail off, left leg is seeping". The patient states that earlier today at approximately 1:30 PM she was opening up her freezer door, when her left foot slipped causing her to fall backwards landing on her buttock region. She states that both of her legs in the posterior region of the thighs hurt, and there was bleeding from her right toe. She has chronic wounds on her left anterior hopkins of which are now weeping. She denies any toe pain. Her tetanus is up-to-date. She notes that she missed scheduled appointments for dialysis, but went today for the full duration. She does not see the wound clinic. She denies any fevers, chills, chest pain, shortness of breath. She notes that the right great toenail was completely gone. Review of Systems A complete 10-point Review of Systems was discussed with the patient, with pertinent positives and negatives listed in the History of Present Illness. All remaining Review of Systems questions can be considered negative unless otherwise specified. Past Medical/Surgical History Medical Problems: (1) Abdominal wall cellulitis (2) Abdominal wall cellulitis (3) Abrasion of toe of right foot (4) Acute kidney injury (5) Acute on chronic diastolic (congestive) heart failure (6) Acute respiratory failure with hypoxia and hypercapnia (7) Anemia (8) Arthritis (9) Asymptomatic bacteriuria (10) Cellulitis of abdominal wall (11) Cellulitis of leg (12) Cervical Disc Degen (13) CHF (congestive heart failure) (14) Chronic kidney disease (CKD) stage G3b/A1, moderately decreased glomerular filtration rate (GFR) between 30-44 mL/min/1.73 square meter and albuminuria creatinine ratio less than 30 mg/g (15) CO2 narcosis (16) COPD (chronic obstructive pulmonary disease) (17) Cor pulmonale, chronic (18) Cystitis (19) Diab Mariama Wo Compl, Type Ii Or Unspec Type, Uncontrolled (20) Diabetes (21) Edema (22) ESRD on hemodialysis (23) Frequent falls (24) Hypercalcemia (25) Hypercalcemia (26) Hypercapnic respiratory failure (27) Hyperkalemia (28) Hyperphosphatemia (29) Hypokalemia (30) Hyponatremia (31) Metabolic alkalosis (32) Metabolic alkalosis with respiratory acidosis (33) Metabolic encephalopathy (34) Morbid obesity with BMI of 50.0-59.9, adult (35) Obesity hypoventilation syndrome (36) Obesity hypoventilation syndrome (37) Ovarian Cyst Nec/Nos (38) Pulmonary Collapse (39) Pulmonary nodules (40) Renal failure (ARF), acute on chronic (41) Sciatica (42) Venous stasis dermatitis of both lower extremities (43) Weakness Family History Cancer Diabetes mellitus Gallbladder disease Heart disease Lung disease Social History Smoking Status: Former Smoker Drug Use: none Marital Status: Housing Status: lives with family Occupation Status: unemployed Current/Historical Medications Scheduled Allopurinol (Zyloprim), 100 MG PO DAILY Ascorbic Acid (Vitamin C 500 mg), 1,000 MG PO DAILY Atorvastatin (Lipitor), 40 MG PO DAILY B-Complex W/ C & Folic Acid (Renal), 1 CAP PO QAM Calcium Acetate (Phosphate Bin (Phoslo 667 Mg), 667 MG PO ACHS Cephalexin Monohydrate (Keflex), 500 MG PO TID Cholecalciferol (Vitamin D3), 1,000 INTER.UNIT PO DAILY Doxycycline Hyclate (Doxycycline Hyclate), 100 MG PO DAILY Famotidine (Famotidine), 20 MG PO DAILY Fluticasone Prop/Salmeterol (Advair Diskus 500/50 60 Dose), 1 PUFF INH BID Home O2 Therapy (Oxygen), 3 LITERS NA CONTINOUS Insulin Aspart (Novolog Flexpen), 50 UNITS SQ W/BREAKFAST Insulin Aspart (Novolog Flexpen), 50 UNITS SQ W/LUNCH Insulin Aspart (Novolog Flexpen), 90 UNITS SQ W/SUPPER Insulin Glargine (Toujeo Solostar), 70 UNITS SC TID Lactic Acid (Ammonium Lactate) (Amlactin), 1 APPLN TOP BID Metoprolol Succ (Toprol Xl) (Toprol-Xl ), 150 MG PO DAILY Multiple Vitamins W/ Minerals (One Daily For Women), 1 TAB PO DAILY Pantoprazole (Protonix), 40 MG PO DAILY Prednisone Tab (Prednisone), 15 MG PO DAILY Pregabalin (Lyrica), 75 MG PO BID Pyridoxine (Vitamin B6), 200 MG PO DAILY Tiotropium [place] (Spiriva Handihaler), 1 CAP INH DAILY Verapamil Hcl (Verapamil Hcl Er), 120 MG PO HS Vitamin E (Vitamin E), 800 INTER.UNIT PO DAILY Scheduled PRN Hydrocodone/Acetaminophen 5MG/325MG (Roxton 5MG/325MG), 1 TAB PO Q6H PRN for Pain Insulin Aspart (Novolog Flexpen), 40 UNITS SQ HS PRN for Late Night Snack Ipratropium-Albuterol (Duoneb), 1 TREATMENT INH Q6H PRN for SOB/Wheezing Miconazole Nitrate (Desenex Shake Powder), 1 APPLN TOP UD PRN for Affected Skin Folds Allergies Coded Allergies: Daptomycin (Verified Allergy, Mild, HIVES, 09/16/16) itching Iodine (Verified Allergy, Unknown, 09/16/16) Shellfish (Verified Allergy, Unknown, 09/16/16) Sulfamethoxazole w/Trimethoprim (Verified Allergy, Unknown, RASH, 09/16/16) Codeine (Verified Adverse Reaction, Unknown, NAUSEA, 09/16/16) has tolerated morphine Physical Exam Vital Signs Date Time Temp Pulse Resp B/P (MAP) Pulse Ox O2 Delivery O2 Flow Rate FiO2 09/16/16 20:17 36.7 87 18 132/61 96 09/16/16 19:56 87 18 132/61 96 Nasal Cannula 3.0 09/16/16 19:02 89 16 127/62 93 Room Air 09/16/16 17:15 36.7 80 20 157/63 92 Nasal Cannula 3.0 Physical Exam VITAL SIGNS - Vital signs and nursing notes were reviewed. Patient is afebrile , hypertensive at 157/63, nontoxic tachycardic and is saturating on 3 L of oxygen at 92%. GENERAL -60-year-old female appearing older than her stated age who is in no acute distress. Communicates well with provider and answers questions appropriately. SKIN - there is bilateral lower extremity edema, with skin discoloration and to weeping wounds on the left anterior hopkins region. These appear to be chronic. The right great toenail is removed and there is an abrasion on the posterior aspect of the right second toe. No active bleeding noted. HEAD - NC/AT. EYES - Sclera anicteric. Palpebral conjunctiva pink and moist with no injection noted. EARS - No deformities of external structures noted on gross examination bilaterally. NOSE - Midline and without cyanosis. NECK - Neck with FROM. No C-spine tenderness. LUNGS - Chest wall symmetric without accessory muscle use, intercostals retractions, or central cyanosis. Normal vesicular breath sounds CTA B/L. No wheezes, rales, or rhonchi appreciated. CARDIAC - RRR with S1/S2. No murmur, rubs, or gallops appreciated. ABDOMEN - Abdominal contour without pulsations or visible masses. BS normoactive all four quadrants. No tenderness, palpable masses, hepatosplenomegaly, or ascites noted. EXTREMITIES - No clubbing or peripheral cyanosis. There is bilateral pitting edema present. She is neurovascularly intact in the lower extremity. There is tenderness to palpation overlying the posterior aspect of the thighs. No bony tenderness. No spinous processes tenderness. Negative pelvic rock. No hip tenderness. +5/5 strength noted in UE/LE bilaterally. NEUROLOGIC - Cranial nerves II through XII grossly intact. Sensory intact to light touch throughout. PSYCH - A&O Pt is very pleasant and interacts well with examiner. Medical Decision & Procedures ER Provider Diagnostic Interpretation: RIGHT FEMUR 2 VIEWS ROUTINE CLINICAL HISTORY: Fall. Bilateral posterior leg pain. COMPARISON: Skeletal survey September 12, 2016. FINDINGS: Evaluation of the proximal right femur is suboptimal due to body habitus. However, no acute fracture of the right femur is identified on this exam. Alignment of the right hip and knee appears anatomic. IMPRESSION: Suboptimal evaluation of the proximal right femur; however, no acute fracture within the right femur identified. Electronically signed by: Eliceo Rubio M.D. 09/16/2016 7:02 PM Dictated Date/Time: 09/16/2016 7:00 PM LEFT FEMUR 2 VIEWS ROUTINE CLINICAL HISTORY: Left femur pain status post trauma COMPARISON: Skeletal survey dated 09/12/2016 DISCUSSION: The study is significantly limited from a technical standpoint with poor visualization of the hip due to the patient's large body habitus. No fractures are visualized. There is a persistent deformity involving the distal diaphysis of the femur. IMPRESSION: 1. Technically limited study. No acute fractures (however there was poor visualization of the hip) 2. Stable nonspecific modeling deformity of the distal femoral diaphysis. Electronically signed by: Trung Diallo M.D. 09/16/2016 7:04 PM Dictated Date/Time: 09/16/2016 7:00 PM RIGHT FOOT MIN 3 VIEWS ROUTINE CLINICAL HISTORY: Right foot pain status post trauma COMPARISON: None. DISCUSSION: There is an overlying bandage. This obscures the fine bony detail. The phalanges are in flexion. No fractures are visualized. There is dorsal soft tissue swelling. There are vascular calcifications present. There is a plantar calcaneal spur. IMPRESSION: No fractures or dislocations identified. Electronically signed by: Trung Diallo M.D. 09/16/2016 7:05 PM Dictated Date/Time: 09/16/2016 7:04 PM Medications Administered Medications (Trade) Dose Ordered Sig/Duyen Route Start Time Stop Time Status Last Admin Dose Admin Cephalexin Monohydrate (Keflex 500MG Home Pack) 1 homepack NOW STAT PO 09/16/16 19:35 09/16/16 19:36 DC 09/16/16 19:59 1 HOMEPACK Medical Decision Patient was seen and evaluated as above. After obtaining a thorough history and physical examination it was evident the patient was likely experiencing injury secondary to a mechanical fall. Although she did not have her dialysis for a few days, she had dialysis today. She denies any symptoms of which would suggest problems not having dialysis. There is no chest pain, shortness of breath or any excessive fatigue. Radiographs were obtained and reveal no fracture. There is an avulsed toenail of the right, this was cleansed, and dressed with a sterile dressing. The wounds on the left anterior hopkins appear to be chronic, and were cleansed and also dressed. Her tetanus is up-to-date. She'll be prophylaxed with Keflex secondary to her high risk of infection. Her tetanus is up-to-date. The patient was educated upon worrisome symptoms which to return, had questions prior to discharge, and was discharged home in good condition. During the patient's stay, there was blood workup which was ordered and they were wondering if could be done here. This was completed as per request. In evaluation treatment this patient following differential diagnoses entertained: Fracture, dislocation, contusion and multiple sites, avulsed toenail, among others. Impression Primary Impression: Fall Additional Impressions: Contusion of multiple sites Nail avulsion of toe Departure Information Dispostion Home / Self-Care Condition GOOD Prescriptions Cephalexin Monohydrate (Keflex) 500 Mg Cap 500 MG PO TID for 5 Days, #15 CAP Prov: Earnest Lobato PA-C 09/16/16 Referrals Emily Isaac C.R.N.P (PCP) Patient Instructions My [facility] Additional Instructions You were seen in the emergency Department for a nail avulsion, fall, and sores on your leg. At this time these regions have been cleansed, and is recommended that you change the bandages daily. You may use bacitracin or Neosporin on the toe for the next 2-3 days, and then please apply a dry dressing. Please watch for signs of infection to include redness, swelling, drainage or discharge from the region. Please call your family doctor to schedule follow-up sooner evaluate the wounds in the next few days. Please keep the Keflex prescription and take one tablet every 8 hours. Please return to the emergency department with any new/concerning symptoms. Problem Qualifiers
[2016-09-16] MEDS ORDERED: CALC667C PO (17:56)
--- NOTE | 2016-09-16 19:03 | DIAGNOSTIC IMAGING REPORT ---
RIGHT FEMUR 2 VIEWS ROUTINE CLINICAL HISTORY: Fall. Bilateral posterior leg pain. COMPARISON: Skeletal survey September 12, 2016. FINDINGS: Evaluation of the proximal right femur is suboptimal due to body habitus. However, no acute fracture of the right femur is identified on this exam. Alignment of the right hip and knee appears anatomic. IMPRESSION: Suboptimal evaluation of the proximal right femur; however, no acute fracture within the right femur identified. Electronically signed by: Eliceo Rubio M.D. 09/16/2016 7:02 PM Dictated Date/Time: 09/16/2016 7:00 PM
--- NOTE | 2016-09-16 19:05 | DIAGNOSTIC IMAGING REPORT ---
LEFT FEMUR 2 VIEWS ROUTINE CLINICAL HISTORY: Left femur pain status post trauma COMPARISON: Skeletal survey dated 09/12/2016 DISCUSSION: The study is significantly limited from a technical standpoint with poor visualization of the hip due to the patient's large body habitus. No fractures are visualized. There is a persistent deformity involving the distal diaphysis of the femur. IMPRESSION: 1. Technically limited study. No acute fractures (however there was poor visualization of the hip) 2. Stable nonspecific modeling deformity of the distal femoral diaphysis. Electronically signed by: Trung Diallo M.D. 09/16/2016 7:04 PM Dictated Date/Time: 09/16/2016 7:00 PM
--- NOTE | 2016-09-16 19:07 | DIAGNOSTIC IMAGING REPORT ---
RIGHT FOOT MIN 3 VIEWS ROUTINE CLINICAL HISTORY: Right foot pain status post trauma COMPARISON: None. DISCUSSION: There is an overlying bandage. This obscures the fine bony detail. The phalanges are in flexion. No fractures are visualized. There is dorsal soft tissue swelling. There are vascular calcifications present. There is a plantar calcaneal spur. IMPRESSION: No fractures or dislocations identified. Electronically signed by: Trung Diallo M.D. 09/16/2016 7:05 PM Dictated Date/Time: 09/16/2016 7:04 PM
[2016-09-16] MEDS ORDERED: CEPH500C PO (19:34)
[2016-09-16] MEDS ORDERED: CEPHALEXIN 500MG HOME PACK 1 EA BTL PO STA (19:35)
[2016-09-16 20:17] VITALS: BP 132/61; PULSE 87; TEMP 36.7; O2SAT 96
[2016-09-22] MEDS ORDERED: PRED10TA PO (14:40)
[2016-11-27] MEDS ORDERED: LYR50 PO (13:39)
[2016-11-27] MEDS ORDERED: RXC5 PO (13:39)
[2016-11-27] MEDS ORDERED: LDDP5 TD (13:39)
== END 2016-09-16 20:00 | disposition home or self-care (01) ==
LOC: C.EDB 17:09 → C.EDA 20:00
DX: S91.201A Unspecified open wound of right great toe with damage to nail, initial encounter (principal); S90.121A Contusion of right lesser toe(s) without damage to nail, initial encounter; W19.XXXA Unspecified fall, initial encounter; Y92.89 Other specified places as the place of occurrence of the external cause; S81.802D Unspecified open wound, left lower leg, subsequent encounter; X58.XXXD Exposure to other specified factors, subsequent encounter; I13.11 Hypertensive heart and chronic kidney disease without heart failure, with stage 5 chronic kidney disease, or end stage renal disease; N18.5 Chronic kidney disease, stage 5; E11.40 Type 2 diabetes mellitus with diabetic neuropathy, unspecified; I95.3 Hypotension of hemodialysis; J44.9 Chronic obstructive pulmonary disease, unspecified; E11.21 Type 2 diabetes mellitus with diabetic nephropathy; Z79.4 Long term (current) use of insulin; Z79.899 Other long term (current) drug therapy; Z99.2 Dependence on renal dialysis; M79.605 Pain in left leg; M79.606 Pain in leg, unspecified

== ENCOUNTER → 2016-09-16 | Outpatient (CLI) | payer BC ==
[~2016-09-16] MED LIST changes: +DOXY100C76 PO; +LDDP5 TD; +LYR50 PO; +RXC5 PO; +SILV1CRE73 TOP
[2016-09-16 18:55] LABS: BASO % 0.2 %; BASO ABS # 0.02 K/uL (0-0.2); EOS % 1.6 %; HEMATOCRIT 33.1 % (37-47); IG% 1.3 %; LYMPH % 8.1 %; LYMPH ABS # 0.87 K/uL (1.2-3.4); MEAN CELL VOLUME 100.3 fL (80-100); MEAN CORPUSCULAR HEMOGLOBIN 29.4 pg (25-34); MEAN CORPUSCULAR HGB CONC 29.3 g/dl (32-36); MEAN PLATELET VOLUME 9.3 fL (7.4-10.4); MONO % 8.4 %; NEUT % 80.4 %; PLATELET COUNT 241 K/uL (130-400); WHITE BLOOD COUNT 10.76 K/uL (4.8-10.8)
[2016-09-16 19:23] LABS: ALT/SGPT 28 U/L (12-78); AST/SGOT 14 U/L (15-37); BLOOD UREA NITROGEN 28 mg/dl (7-18); BUN/CREATININE RATIO 6.3 (10-20); CALCIUM 9.3 mg/dl (8.5-10.1); CARBON DIOXIDE 32 mmol/L (21-32); CHLORIDE 98 mmol/L (98-107); GLUCOSE 131 mg/dl (70-99); POTASSIUM 4.7 mmol/L (3.5-5.1); SODIUM 133 mmol/L (136-145)
[2016-09-16 19:36] LABS: ALB/GLOB RATIO 0.5 (0.9-2); ALKALINE PHOSPHATASE 92 U/L (45-117); IMMUNOGLOBULN A 60.7 mg/dL (70-400)
[2016-09-16 20:16] LABS: IMMUNOGLOBULN M < 21.0 mg/dL (40-230)
[2016-09-16 21:27] LABS: ANISOCYTOSIS PRESENT; COMPLETE YES; POLYCHROMASIA 1+
[2016-09-18 16:01] LABS: ALBUMIN 3.4 G/DL (3.8-4.8); FREE KAPPA/LAMBDA RATIO 29.09 (0.26-1.65); FREE LAMBDA 41.7 MG/L (5.7-26.3); GAMMA GLOBULIN 2.6 G/DL (0.8-1.7); IMMUNOFIXATION IGA SERUM 66 MG/DL (81-463); IMMUNOFIXATION IGG SERUM 2911 MG/DL (694-1618); IMMUNOFIXATION IGM SERUM 20 MG/DL (48-271); MONOCLONAL PROTEIN BAND 1 2.4 G/DL (NOT DETECTED); TOTAL PROTEIN 8.3 G/DL (6.2-8.3)
== END | disposition home or self-care (01) ==
LOC: C.LAB 17:38
PROVIDERS: ATTEND Nurse Practitioner Family
DX: D47.2 Monoclonal gammopathy (principal); E83.52 Hypercalcemia

== ENCOUNTER 2016-09-19 09:20 | Inpatient (IN) | payer BC ==
[2016-09-19] VITALS (11 sets, daily range): BP systolic 94–129; BP diastolic 47–56; PULSE 90–108; TEMP 36.4–37.5; O2SAT 93–100; Ht 165.1 cm; Wt 139.2 kg
[~2016-09-19] VITALS: Ht 165.1 cm; Wt 139.2 kg
[~2016-09-19 09:20] MED LIST changes: +CALC667C PO; +CEPH500C PO; -PHS667 PO
[2016-09-19 10:01] LABS: BASO % 0.2 %; BASO ABS # 0.02 K/uL (0-0.2); EOS % 2.6 %; HEMATOCRIT 32.4 % (37-47); IG% 1.3 %; LYMPH % 13.4 %; LYMPH ABS # 1.17 K/uL (1.2-3.4); MEAN CELL VOLUME 101.6 fL (80-100); MEAN CORPUSCULAR HEMOGLOBIN 30.1 pg (25-34); MEAN CORPUSCULAR HGB CONC 29.6 g/dl (32-36); MEAN PLATELET VOLUME 9.2 fL (7.4-10.4); MONO % 11.5 %; PLATELET COUNT 206 K/uL (130-400); RED BLOOD COUNT 3.19 M/uL (4.2-5.4); WHITE BLOOD COUNT 8.73 K/uL (4.8-10.8)
[2016-09-19 10:02] LABS: VEN BLOOD GAS BASE EXCESS 0.2 mmol/L; VENOUS BLOOD GAS PCO2 75 mmHg (38.0-50.0); VENOUS BLOOD GAS PO2 32 mmHg
[2016-09-19 10:04] LABS: VEN BLD GAS O2 SATURATION < 60.0 %
[2016-09-19 10:12] LABS: PARTIAL THROMBOPLASTIN RATIO 0.9; PROTHROMBIN TIME (PATIENT) 10.5 SECONDS (9.0-12.0)
[2016-09-19 10:28] LABS: ANISOCYTOSIS PRESENT; COMPLETE YES
--- NOTE | 2016-09-19 10:28 | DIAGNOSTIC IMAGING REPORT ---
CERVICAL SPINE W/O CLINICAL HISTORY: 60 years-old Female presenting with fall neck pain . TECHNIQUE: Multidetector CT of the cervical spine was performed without the use of intravenous contrast. IV contrast: None. A dose lowering technique was used consistent with the principles of ALARA (as low as reasonably achievable). COMPARISON: None. CT DOSE (mGy.cm): The estimated cumulative dose is 1163.61 inclusive of the head CT. FINDINGS: Ash Worker topogram: Right internal jugular dialysis catheter. Straightening of normal cervical lordosis, which may be positional. Vertebral body heights and alignment maintained. Intervertebral disc height loss at C5-6 with focal degenerative change evidenced by osteophytosis, endplate sclerosis and cystic change. Facet arthropathy noted at several levels. No significant osseous spinal canal narrowing. Uncovertebral hypertrophy and facet arthropathy result in mild left greater than right osseous neural foraminal narrowing at C5-6. Degenerative changes of the atlantoaxial articulation. No acute fracture or subluxation. Paraspinal soft tissues within normal limits. Limited intracranial evaluation normal. Lung apices clear. IMPRESSION: 1. No acute osseous injury of the cervical spine. 2. Focal degenerative changes at C5-6. Electronically signed by: Curry Roa M.D. 09/19/2016 10:27 AM Dictated Date/Time: 09/19/2016 10:20 AM
--- NOTE | 2016-09-19 10:30 | DIAGNOSTIC IMAGING REPORT ---
HEAD WITHOUT CONTRAST (CT) CT DOSE: 1163.61 mGy.cm HISTORY: Trauma. Pain. fall hit head TECHNIQUE: Multiaxial CT images of the head were performed without the use of intravenous contrast. A dose lowering technique was utilized adhering to the principles of ALARA. Comparison: None. Findings: The paranasal sinuses and mastoid air cells are clear. The calvarium and skull base are intact. The ventricles and sulci are within normal limits. There is no mass, hematoma, midline shift, or acute infarct. Impression: No acute intracranial abnormality. The above report was generated using voice recognition software. It may contain grammatical, syntax or spelling errors. Electronically signed by: Mateo Bone M.D. 09/19/2016 10:28 AM Dictated Date/Time: 09/19/2016 10:24 AM
[2016-09-19 10:36] LABS: ALKALINE PHOSPHATASE 99 U/L (45-117); ALT/SGPT 29 U/L (12-78); AST/SGOT 15 U/L (15-37); BLOOD UREA NITROGEN 33 mg/dl (7-18); BUN/CREATININE RATIO 6.1 (10-20); CALCIUM 8.8 mg/dl (8.5-10.1); CARBON DIOXIDE 30 mmol/L (21-32); CHLORIDE 103 mmol/L (98-107); GLUCOSE 107 mg/dl (70-99); POTASSIUM 4.8 mmol/L (3.5-5.1); SODIUM 137 mmol/L (136-145)
--- NOTE | 2016-09-19 10:39 | DIAGNOSTIC IMAGING REPORT ---
CHEST ONE VIEW PORTABLE CLINICAL HISTORY: AMS dyspnea COMPARISON STUDY: 08/13/2016 FINDINGS: PermCath in the superior vena cava. Mild stable cardiomegaly. Chronic pulmonary vascular congestion. Mild superimposed right basilar infiltrate. IMPRESSION: Mild right basilar infiltrate superimposed upon chronic pulmonary vascular congestion. The above report was generated using voice recognition software. It may contain grammatical, syntax or spelling errors. Electronically signed by: Mateo Bone M.D. 09/19/2016 10:38 AM Dictated Date/Time: 09/19/2016 10:37 AM
[2016-09-19] MEDS ORDERED: MoRPHine SULFATE 4 MG/ML 1 ML CARP\\VIAL IV STA (11:09)
--- NOTE | 2016-09-19 11:30 | DIAGNOSTIC IMAGING REPORT ---
PELVIS/BILATERAL HIP 2 VIEWS CLINICAL HISTORY: 60 years-old Female presenting with fall . TECHNIQUE: Frontal view of the pelvis and frontal and frog-leg lateral views of the bilateral hips were obtained. COMPARISON: 09/12/2016. FINDINGS: Image quality is dramatically limited by patient body habitus. Hips are grossly congruent. No gross osseous abnormality within limitation of poorly visualized osseous detail. IMPRESSION: No gross osseous abnormality allowing for marked degradation of image quality. This limits diagnostic sensitivity. Electronically signed by: Curry Roa M.D. 09/19/2016 11:29 AM Dictated Date/Time: 09/19/2016 11:26 AM
[2016-09-19] MEDS ORDERED: ONDANSETRON INJ 2 MG/ML 2 ML VIAL IV PRN (12:15)
[2016-09-19] MEDS ORDERED: MICONAZOLE NITRATE POWDER 43 GM EXT PRN (12:15)
[2016-09-19] MEDS ORDERED: POLYETHYLENE (MIRALAX) 17 GM PACK PO PRN (12:15)
[2016-09-19] MEDS ORDERED: HYDROmorphone INJ 0.5 MG/0.5 ML SYR IV PRN (13:15)
[2016-09-19 14:18] LABS: ARTERIAL BLD GAS O2 SATURATION 89.4 % (90-95); ARTERIAL BLOOD GAS BASE EXCESS -0.7 mEq/L (-9-1.8); ARTERIAL BLOOD GAS HCO3 27 mmol/L (19-24); ARTERIAL BLOOD GAS PO2 69 mm/Hg (80-95); ARTERIAL BLOOD GAS pH 7.26 (7.35-7.45)
[2016-09-19 14:19] LABS: ALLEN TEST POS (POS); O2 ADMINISTRATION 30%
[2016-09-19] MEDS ORDERED: GLUCOSE 10 TABS/TUBE PO PRN (15:00)
[2016-09-19] MEDS: ALBUT/IPRATROP 3MG/0.5MG NEB 3 ML VIAL INH SCH ×2 (15:00→19:18)
[2016-09-19] MEDS ORDERED: GLUCAGON FOR INJ 1 MG VIAL SQ PRN (15:00)
[2016-09-19] MEDS ORDERED: DEXTROSE 50% 50 ML SYR IV PRN (15:00)
[2016-09-19] MEDS ORDERED: GLUCOSE 40% GEL 15 GM TUBE PO PRN (15:00)
--- NOTE | 2016-09-19 15:14 | Pharmacy Progress Note ---
Glycemic Control Intl Consult Date of Service Sep 19, 2016. Scope Glycemic Pharmacist consulted by Dr Anderson on 09/19/2016 for glycemic control and to write orders per [facility] inpatient glycemic control protocol Objective Weight (Kilograms): 142.500 Accuchecks BSG (last 24hrs): Test 09/19/16 09:50 Random Glucose 107 mg/dl (70-99) Laboratory Data (last 24hrs) Test 09/19/16 09:50 Anion Gap 4.0 mmol/L BUN/Creatinine Ratio 6.1 Blood Urea Nitrogen 33 mg/dl Creatinine 5.50 mg/dl Potassium Level 4.8 mmol/L Sodium Level 137 mmol/L White Blood Count 8.73 K/uL Red Blood Count 3.19 M/uL Hemoglobin 9.6 g/dL Hematocrit 32.4 % Mean Corpuscular Volume 101.6 fL Mean Corpuscular Hemoglobin 30.1 pg Mean Corpuscular Hemoglobin Concent 29.6 g/dl Platelet Count 206 K/uL Mean Platelet Volume 9.2 fL Neutrophils (%) (Auto) 71.0 % Lymphocytes (%) (Auto) 13.4 % Monocytes (%) (Auto) 11.5 % Eosinophils (%) (Auto) 2.6 % Basophils (%) (Auto) 0.2 % Neutrophils # (Auto) 6.20 K/uL Lymphocytes # (Auto) 1.17 K/uL Monocytes # (Auto) 1.00 K/uL Eosinophils # (Auto) 0.23 K/uL Basophils # (Auto) 0.02 K/uL Recent Pertinent Medications Outpatient Anti-diabetic Regimen: * Toujeo 70 units TID plus Novolog 50 units with breakfast/ 50 units with lunch / 90 units with dinner/ 40 units with evening snack if has one * A1c = 6.3 % 05/20/16 Risk Factors for Insulin Resistance: * Steroids: prednisone 15 mg PO daily * Infection: chronic cellulitis on PO doxycycline and keflex * Diet: type 2 diabetic diet Assessment & Plan ASSESSMENT: * ADA & AACE recommend a goal blood sugar range 140-180 mg/dl for the majority of critically ill & non-critically ill patients. However, more stringent targets may be selected in individual cases. Will utilize more stringent goal of 110-140mg/dl based on patient age & comorbidities. Additionally, tighter glycemic control is warranted to facilitate wound/infection healing. * Ms Gaytan is a 60 y/o F well known to the glycemic service. She is admitted today with frequent falls and hypoxia. She has a PMH significant to ESRD on dialysis and CHF. Prior to admission the patient has not taken any insulin today. She took Toujeo 70 units last night. * While hospitalized, Ms Gaytan requires twice daily Lantus dosing. During the last hospitalization, this was maximized at Lantus 80 units twice daily. This will be restarted after she is off of BiPAP. As the patient is still on BiPAP and cannot eat until stable, I will start on a lower dose of Lantus of 70 units x 1 dose due to the technical NPO status. Her correctional insulin requirements vary. It was noticed that Ms Gaytan requires more carbohydrate coverage than correction factor. Therefore a tighter carbohydrate ratio is important. I will restart the looser carbohydrate ratio until I determine if she needs tighter coverage. PLAN FOR INPATIENT GLYCEMIC CONTROL: * Basal insulin with LANTUS 70 units x 1 then 80 units SQ BID if tolerating no BiPAP at that time * Correctional Insulin with NOVOLOG per scale ACHS * Goal Range: Low 110 mg/dL - High 140 mg/dL * Correction Factor: 6 mg/dL/unit * Nutritional / Prandial insulin per carb ratio of 1 unit per 2 grams CHO consumed * Please note that the plan above was derived based on current level of insulin resistance and hospital stress. These recommendations are appropriate for inpatient admission only. Plan of care upon discharge will need to be reassessed to avoid potential outpatient hypo/hyperglycemia. Thank you.
[2016-09-19] MEDS ORDERED: PHARMACY GLYCEMIC MGMT CONSULT PRN (15:30)
--- NOTE | 2016-09-19 16:12 | Medical Student: [facility] ---
Med Student History & Physical Date & Time of Service: Sep 19, 2016 at 11:41 Chief Complaint: Frequent falls Primary Care Physician: Emily Isaac C.R.NFranklynP History of Present Illness Source: patient, spouse Patient is a 60yo female with history of COPD, DM II, RT ventricular systolic dysfunction, bilateral ventricle diastolic dysfunction, cor pulmonale. pickwickian syndrome, MIKAYLA, gout, CKD stage 5, diverticulosis, HLD, HTN, and anemia of chronic disease presenting with recurrent falls starting 09/15/16. On Thursday night, patient experienced increased jerking of her hands and sudden leg weakness that resulted in a fall. She went to the ED on 09/16 where x-rays were completed and she was then discharged. Patient states that since Thursday, she has fallen an additional 5 times. She experiences prodromal hand "jerking" and knows that leg weakness and a fall are forthcoming although she is not able to move to a sitting/laying position in time. She reports that she is concisus throughout these episodes, but is unsure how long the weakness lasts due to requiring 2 person assist to return to standing position which " takes a while" . was been in close attendance since these events began, but is unable to prevent falls, he reports that he has been able to assist with falls to ensure no head injuries, patient will fall into his and he will lower her to ground. Patient denies any LOC, dizziness, recent illnesses, SOB compared to baseline, N /V, C/D, blood in stool, change in urinary habits, change in vision, confusion, numbness/tingling, chest/abd pain. verifies no confusion or memory difficulty. Hand jerks have been present for 2 years and assessed by medical staff with no known cause, patient reports nothing makes them better or worse but they have increased in frequency and intensity this past week. Past Medical/Surgical History PMH COPD DM II - A1C 6.3 (05/16) CHF - RT ventricular systolic dysfunction, bilateral ventricular diastolic dysfunction Cor pulmonale Pickwikian syndrome - morbid obesity BMI 52.3 MIKAYLA on home BIPAP Gout CKD Stage 5 Diverticulosis HLD HTN Stable pulmonary nodules Anemia of CKD Home Medication changes: D/C verapimil Hold metoprolo 150 daily on dialysis days TTSa PSH Hysterectomy Family History Mother: COPD Father: pancreatic cancer No seizure, CVA, or heart disease history Social History Lives with in house with multiple stairs Limited activity - upon discharge from rehab was able to complete daily activates and move freely, this week severely limited Diet: decently healthy (recent change) - no sodium, low potassium, fresh meats, fruits, and vegetables Smoking Status: Former Smoker (60pack year history, quit 7y ago) Smokeless Tobacco Use: No Alcohol Use: none Drug Use: none Marital Status: Housing status: lives with significant other Occupational Status: unemployed Immunizations History of Influenza Vaccine: Yes Influenza Vaccine Date: Apr 15, 2012 History of Tetanus Vaccine?: No History of Pneumococcal: Yes Pneumococcal Date: Jan 13, 2013 History of Hepatitis B Vaccine: No Allergies Coded Allergies: Daptomycin (Verified Allergy, Mild, HIVES, 09/16/16) itching Iodine (Verified Allergy, Unknown, 09/16/16) Shellfish (Verified Allergy, Unknown, 09/16/16) Sulfamethoxazole w/Trimethoprim (Verified Allergy, Unknown, RASH, 09/16/16) Codeine (Verified Adverse Reaction, Unknown, NAUSEA, 09/16/16) has tolerated morphine Uncoded Allergies: kristina wipes (Allergy, Severe, red rash, excoriation, 09/19/16) Medications Allopurinol (Zyloprim), 100 MG PO DAILY Ascorbic Acid (Vitamin C 500 mg), 1,000 MG PO DAILY Atorvastatin (Lipitor), 40 MG PO DAILY B-Complex W/ C & Folic Acid (Renal), 1 CAP PO QAM Calcium Acetate (Phosphate Bin (Phoslo 667 Mg), 667 MG PO ACHS Cephalexin Monohydrate (Keflex), 500 MG PO TID Cholecalciferol (Vitamin D3), 1,000 INTER.UNIT PO DAILY Doxycycline Hyclate (Doxycycline Hyclate), 100 MG PO DAILY Famotidine (Famotidine), 20 MG PO DAILY Fluticasone Prop/Salmeterol (Advair Diskus 500/50 60 Dose), 1 PUFF INH BID Home O2 Therapy (Oxygen), 3 LITERS NA CONTINOUS Hydrocodone/Acetaminophen 5MG/325MG (Willow 5MG/325MG), 1 TAB PO Q6H PRN for Pain Insulin Aspart (Novolog Flexpen), 50 UNITS SQ W/BREAKFAST Insulin Aspart (Novolog Flexpen), 50 UNITS SQ W/LUNCH Insulin Aspart (Novolog Flexpen), 90 UNITS SQ W/SUPPER Insulin Aspart (Novolog Flexpen), 40 UNITS SQ HS PRN for Late Night Snack Insulin Glargine (Toujeo Solostar), 70 UNITS SC TID Ipratropium-Albuterol (Duoneb), 1 TREATMENT INH Q6H PRN for SOB/Wheezing Lactic Acid (Ammonium Lactate) (Amlactin), 1 APPLN TOP BID Metoprolol Succ (Toprol Xl) (Toprol-Xl ), 150 MG PO DAILY Miconazole Nitrate (Desenex Shake Powder), 1 APPLN TOP UD PRN for Affected Skin Folds Multiple Vitamins W/ Minerals (One Daily For Women), 1 TAB PO DAILY Pantoprazole (Protonix), 40 MG PO DAILY Prednisone Tab (Prednisone), 15 MG PO DAILY Pregabalin (Lyrica), 75 MG PO BID Pyridoxine (Vitamin B6), 200 MG PO DAILY Tiotropium [place] (Spiriva Handihaler), 1 CAP INH DAILY Verapamil Hcl (Verapamil Hcl Er), 120 MG PO HS Vitamin E (Vitamin E), 800 INTER.UNIT PO DAILY Review of Systems Constitutional: + weakness, + fatigue, No fever, No chills, No sweats, No weight loss Eyes: No worsening of vision, No diplopia ENT: No hearing loss, No tinnitus Respiratory: + problem reported (Decreased respiratory rate), No shortness of breath (no change from baseline SOB) Cardiovascular: + palpitations, + problem reported (tachycardia since recent change in metoprolol), No chest pain Abdomen: No pain, No nausea, No vomiting, No diarrhea, No constipation, No GI bleeding Musculoskeletal: + problem reported (RT buttocks, posterior RT thigh, coccygeal region pain) Genitourinary - Female: No dysuria, No urinary frequency, No urinary urgency, No urinary incontinence Neurologic: + weakness, No memory loss, No paralysis, No numbness/tingling Psychiatric: No problem reported Endocrine: + fatigue, No excessive urination Hematologic / Lymphatic: No swollen lymph nodes, No night sweats Allergic / Immunologic: No problem reported Physical Exam Vital Signs (24 Hours) Date Time Temp Pulse Resp B/P (MAP) Pulse Ox O2 Delivery O2 Flow Rate FiO2 09/19/16 11:09 98 96 30 09/19/16 10:48 96 22 129/62 96 Nasal Cannula 3.0 09/19/16 09:41 94 09/19/16 09:20 36.7 98 20 129/62 94 Nasal Cannula 3.0 General Appearance: + obese (morbid obesity BMI 52.3) Head: normocephalic, atraumatic Eyes: PERRL, sclerae normal ENT: hearing grossly normal, pharynx normal Neck: supple, no adenopathy, no JVD, no carotid bruits, trachea midline Respiratory/Chest: chest non-tender, + pertinent finding (difficult to asses due to inability to sit up added to body habitus) Cardiovascular: regular rate, rhythm, no murmur, normal peripheral pulses, + tachycardia, + pertinent finding (significant edema lower extremities) Abdomen/GI: normal bowel sounds, non tender, soft, no organomegaly, no pulsatile mass, + pertinent finding (difficult to assess due to body habitus) Extremities/Musculoskelatal: no calf tenderness, + pedal edema (up to hip +1-2) , + slow capillary refill (5sec) Neurologic/Psych: oriented x 3, + pertinent finding (obtunded - fell asleep during interview) Skin: normal color, warm/dry, no rash Lymphatic: no adenopathy Diagnostics Laboratory Results Results Past 24 Hours Test 09/19/16 09:50 Range/Units White Blood Count 8.73 4.8-10.8 K/uL Red Blood Count 3.19 4.2-5.4 M/uL Hemoglobin 9.6 12.0-16.0 g/dL Hematocrit 32.4 37-47 % Mean Corpuscular Volume 101.6 80-100 fL Mean Corpuscular Hemoglobin 30.1 25-34 pg Mean Corpuscular Hemoglobin Concent 29.6 32-36 g/dl Platelet Count 206 130-400 K/uL Mean Platelet Volume 9.2 7.4-10.4 fL Neutrophils (%) (Auto) 71.0 % Lymphocytes (%) (Auto) 13.4 % Monocytes (%) (Auto) 11.5 % Eosinophils (%) (Auto) 2.6 % Basophils (%) (Auto) 0.2 % Neutrophils # (Auto) 6.20 1.4-6.5 K/uL Lymphocytes # (Auto) 1.17 1.2-3.4 K/uL Monocytes # (Auto) 1.00 0.11-0.59 K/uL Eosinophils # (Auto) 0.23 0-0.5 K/uL Basophils # (Auto) 0.02 0-0.2 K/uL RDW Standard Deviation 77.3 36.4-46.3 fL RDW Coefficient of Variation 21.3 11.5-14.5 % Immature Granulocyte % (Auto) 1.3 % Immature Granulocyte # (Auto) 0.11 0.00-0.02 K/uL Nucleated RBC Absolute Count (auto) 0.25 0-0 K/uL Nucleated Red Blood Cells % 2.8 % Anisocytosis PRESENT Macrocytosis PRESENT Prothrombin Time 10.5 9.0-12.0 SECONDS Prothromb Time International Ratio 1.0 0.9-1.1 Activated Partial Thromboplast Time 24.5 21.0-31.0 SECONDS Partial Thromboplastin Ratio 0.9 Venous Blood pH 7.21 7.36-7.41 Venous Blood Partial Pressure CO2 75 38.0-50.0 mmHg Venous Blood Partial Pressure O2 32 mmHg Venous Blood HCO3 30 mmol/L Venous Blood Oxygen Saturation < 60.0 % Venous Blood Base Excess 0.2 mmol/L Sodium Level 137 136-145 mmol/L Potassium Level 4.8 3.5-5.1 mmol/L Chloride Level 103 98-107 mmol/L Carbon Dioxide Level 30 21-32 mmol/L Anion Gap 4.0 3-11 mmol/L Blood Urea Nitrogen 33 7-18 mg/dl Creatinine 5.50 0.60-1.20 mg/dl Est Creatinine Clear Calc Drug Dose 15.3 ml/min Estimated GFR () 8.9 Estimated GFR (Non- 7.7 BUN/Creatinine Ratio 6.1 10-20 Random Glucose 107 70-99 mg/dl Calcium Level 8.8 8.5-10.1 mg/dl Total Bilirubin 0.3 0.2-1 mg/dl Direct Bilirubin < 0.1 0-0.2 mg/dl Aspartate Amino Transf (AST/SGOT) 15 15-37 U/L Alanine Aminotransferase (ALT/SGPT) 29 12-78 U/L Alkaline Phosphatase 99 45-117 U/L Troponin I < 0.015 0-0.045 ng/ml Total Protein 8.2 6.4-8.2 gm/dl Albumin 2.6 3.4-5.0 gm/dl Diagnostic Radiology CERVICAL CT IMPRESSION: 1. No acute osseous injury of the cervical spine. 2. Focal degenerative changes at C5-6. CHEST XRAY IMPRESSION: Mild right basilar infiltrate superimposed upon chronic pulmonary vascular congestion. HEAD CT Impression: No acute intracranial abnormality. CXR normal No change from prior EKG Impression Assessment and Plan Patient is a 60yo female with history of COPD, DM II, CHF systolic RT + diastolic bilateral, pickwikian syndome, MIKAYLA, gout, CKD stage 5, diverticulosis , HTN, HLD, and anemia of CKD presenting with weakness and recurrent falls secondary to hypercapnia from acute on chronic pickwickian syndrome plus CKD stage 5. AMS secondary to hypercapnia + pickwickian syndrome: 75 + BMI 52.3 - Consult with neurology - planned dialysis scheduled for 09/20 - Repeat ABG for re-evaluation CO2 level today at 16:00 - Trend creatine and BUN levels while in hospital - Trend daily BMP to monitor for any negative changes - Continuous BIPAP to facilitate decrease of CO2 levels through improved quantity and quality of respirations - Dialysis tomorrow - [employer] consult for BMI improvement - Goal CO2: 40-45 or until symptom improvement Level of Care Telemetry Resuscitation Status FULL RESUSCITATION DVT Prophylaxis enoxaparin (Lovenox) SQ, SCDs Social Service Consult None Apply Note Total Time: Critical Care 30 - 74 minutes
[2016-09-19] MEDS: CALCIUM ACETATE 667MG GELCAP PO SCH ×2 (16:15→21:48)
[2016-09-19] MEDS: INSULIN ASPART 100 UNITS/ML 3 ML PEN SC SCH ×2 (16:15→20:48)
--- NOTE | 2016-09-19 16:42 | EMERGENCY ROOM VISIT NOTE ---
History Report prepared by [place]: Ivana Denise Under the Supervision of: Dr. Michael Alvarado D.O. First contact with patient: 09:23 Stated Complaint: FALL History of Present Illness The patient is a 60 year old female who presents to the Emergency Room with complaints of intermittent falls over the last four days. She first fell on Thursday evening and came to the ED the next day because she ripped off a toenail on her right foot. She was placed on Keflex at that time and discharged home. The patient states that she has continued to have falls. She experiences a "jerking motion" that causes her to fall. She is unsure what is causing this "jerking motion," and states that it has been occurring intermittently throughout the past two years. She has been using her walker and is still falling. The patient states that every time that she has fallen, she has landed on her tailbone. She is currently complaining of neck pain. Pt denies headache, change in vision, fevers, chest pain, shortness of breath, back pain, nausea, vomiting, diarrhea, pain with urination, and melena. She is on doxycycline chronically for cellulitis of her bilateral lower extremities. She wears 3L of O2 at all times. She has been getting dialysis for the past 6 weeks. Source of History: patient Onset: 4 days ago Position: other (global) Timing: intermittent Modifying Factors (Worsening): other ("jerking motion") Associated Symptoms: + neck pain, No fevers, No headache, No chest pain, No SOB, No nausea, No vomiting, No melena, No diarrhea, No urinary symptoms Review of Systems See HPI for pertinent positives & negatives. A total of 10 systems reviewed and were otherwise negative. Past Medical & Surgical Medical Problems: (1) Abdominal wall cellulitis (2) Abdominal wall cellulitis (3) Abrasion of toe of right foot (4) Acute hypercapnic respiratory failure (5) Acute kidney injury (6) Acute on chronic diastolic (congestive) heart failure (7) Acute respiratory failure with hypoxia and hypercapnia (8) Anemia (9) Arthritis (10) Asymptomatic bacteriuria (11) Cellulitis of abdominal wall (12) Cellulitis of leg (13) Cervical Disc Degen (14) CHF (congestive heart failure) (15) Chronic kidney disease (CKD) stage G3b/A1, moderately decreased glomerular filtration rate (GFR) between 30-44 mL/min/1.73 square meter and albuminuria creatinine ratio less than 30 mg/g (16) CO2 narcosis (17) COPD (chronic obstructive pulmonary disease) (18) Cor pulmonale, chronic (19) Cystitis (20) Diab Mariama Wo Compl, Type Ii Or Unspec Type, Uncontrolled (21) Diabetes (22) Edema (23) ESRD on hemodialysis (24) Frequent falls (25) Hypercalcemia (26) Hypercalcemia (27) Hypercapnic respiratory failure (28) Hyperkalemia (29) Hyperphosphatemia (30) Hypokalemia (31) Hyponatremia (32) Metabolic alkalosis (33) Metabolic alkalosis with respiratory acidosis (34) Metabolic encephalopathy (35) Morbid obesity with BMI of 50.0-59.9, adult (36) Obesity hypoventilation syndrome (37) Obesity hypoventilation syndrome (38) Ovarian Cyst Nec/Nos (39) Pulmonary Collapse (40) Pulmonary nodules (41) Renal failure (ARF), acute on chronic (42) Sciatica (43) Venous stasis dermatitis of both lower extremities (44) Weakness Family History Cancer Diabetes mellitus Gallbladder disease Heart disease Lung disease Social History Smoking Status: Former Smoker Drug Use: none Marital Status: Housing Status: lives with family Occupation Status: unemployed Current/Historical Medications Scheduled Allopurinol (Zyloprim), 100 MG PO DAILY Ascorbic Acid (Vitamin C 500 mg), 1,000 MG PO DAILY Atorvastatin (Lipitor), 40 MG PO DAILY B-Complex W/ C & Folic Acid (Renal), 1 CAP PO QAM Calcium Acetate (Phosphate Bin (Phoslo 667 Mg), 667 MG PO ACHS Cephalexin Monohydrate (Keflex), 500 MG PO TID Cholecalciferol (Vitamin D3), 1,000 INTER.UNIT PO DAILY Doxycycline Hyclate (Doxycycline Hyclate), 100 MG PO DAILY Famotidine (Famotidine), 20 MG PO DAILY Fluticasone Prop/Salmeterol (Advair Diskus 500/50 60 Dose), 1 PUFF INH BID Home O2 Therapy (Oxygen), 3 LITERS NA CONTINOUS Insulin Aspart (Novolog Flexpen), 50 UNITS SQ W/BREAKFAST Insulin Aspart (Novolog Flexpen), 50 UNITS SQ W/LUNCH Insulin Aspart (Novolog Flexpen), 90 UNITS SQ W/SUPPER Insulin Glargine (Toujeo Solostar), 70 UNITS SC TID Lactic Acid (Ammonium Lactate) (Amlactin), 1 APPLN TOP BID Metoprolol Succ (Toprol Xl) (Toprol-Xl ), 150 MG PO DAILY Multiple Vitamins W/ Minerals (One Daily For Women), 1 TAB PO DAILY Pantoprazole (Protonix), 40 MG PO DAILY Prednisone Tab (Prednisone), 15 MG PO DAILY Pregabalin (Lyrica), 75 MG PO BID Pyridoxine (Vitamin B6), 200 MG PO DAILY Tiotropium [place] (Spiriva Handihaler), 1 CAP INH DAILY Verapamil Hcl (Verapamil Hcl Er), 120 MG PO HS Vitamin E (Vitamin E), 800 INTER.UNIT PO DAILY Scheduled PRN Hydrocodone/Acetaminophen 5MG/325MG ([place] 5MG/325MG), 1 TAB PO Q6H PRN for Pain Insulin Aspart (Novolog Flexpen), 40 UNITS SQ HS PRN for Late Night Snack Ipratropium-Albuterol (Duoneb), 1 TREATMENT INH Q6H PRN for SOB/Wheezing Miconazole Nitrate (Desenex Shake Powder), 1 APPLN TOP UD PRN for Affected Skin Folds Allergies Coded Allergies: Daptomycin (Verified Allergy, Mild, HIVES, 09/16/16) itching Iodine (Verified Allergy, Unknown, 09/16/16) Shellfish (Verified Allergy, Unknown, 09/16/16) Sulfamethoxazole w/Trimethoprim (Verified Allergy, Unknown, RASH, 09/16/16) Codeine (Verified Adverse Reaction, Unknown, NAUSEA, 09/16/16) has tolerated morphine Uncoded Allergies: kristina wipes (Allergy, Severe, red rash, excoriation, 09/19/16) Physical Exam Vital Signs Date Time Temp Pulse Resp B/P (MAP) Pulse Ox O2 Delivery O2 Flow Rate FiO2 09/19/16 12:25 96 BiPAP 30 09/19/16 11:49 99 18 130/60 96 Nasal Cannula 3.0 09/19/16 11:09 98 96 30 09/19/16 10:48 96 22 129/62 96 Nasal Cannula 3.0 09/19/16 09:41 94 09/19/16 09:20 36.7 98 20 129/62 94 Nasal Cannula 3.0 Physical Exam GENERAL: alert, chronically ill appearing, falls asleep quickly, well nourished , no acute distress, non-toxic EYE EXAM: normal conjunctiva, PERRL and EOM's grossly intact OROPHARYNX: no exudate, no erythema, lips, buccal mucosa, and tongue normal and mucous membranes are moist NECK: supple, no nuchal rigidity, no adenopathy, non-tender LUNGS: Distant. Clear to auscultation. Normal chest wall mechanics HEART: no murmurs, S1 normal and S2 normal CHEST: Dialysis catheter located along the right chest wall - clean, dry, and intact ABDOMEN: Morbidly obese, abdomen soft, non-tender, normo-active bowel sounds, no masses, no rebound or guarding. Slight erythema without the pannus folds. BACK: Back is symmetrical on inspection and there is no deformity, no midline tenderness, no CVA tenderness. SKIN: no rashes and no bruising UPPER EXTREMITIES: upper extremities are grossly normal. Fistula in the left arm , positive thrill. LOWER EXTREMITIES: Mild erythema bilaterally on distal tib/fibs which is warm/ chronic for patient. No pitting edema. NEURO EXAM: Normal sensorium, cranial nerves II-XII grossly intact, normal speech, no gross weakness of arms, no gross weakness of legs. Medical Decision & Procedures ER Provider Diagnostic Interpretation: Radiology results as stated below per my review and the radiologist's interpretation: PELVIS/BILATERAL HIP 2 VIEWS CLINICAL HISTORY: 60 years-old Female presenting with fall . TECHNIQUE: Frontal view of the pelvis and frontal and frog-leg lateral views of the bilateral hips were obtained. COMPARISON: 09/12/2016. FINDINGS: Image quality is dramatically limited by patient body habitus. Hips are grossly congruent. No gross osseous abnormality within limitation of poorly visualized osseous detail. IMPRESSION: No gross osseous abnormality allowing for marked degradation of image quality. This limits diagnostic sensitivity. Electronically signed by: Curry Roa M.D. 09/19/2016 11:29 AM Dictated Date/Time: 09/19/2016 11:26 AM HEAD WITHOUT CONTRAST (CT) CT DOSE: 1163.61 mGy.cm HISTORY: Trauma. Pain. fall hit head TECHNIQUE: Multiaxial CT images of the head were performed without the use of intravenous contrast. A dose lowering technique was utilized adhering to the principles of ALARA. Comparison: None. Findings: The paranasal sinuses and mastoid air cells are clear. The calvarium and skull base are intact. The ventricles and sulci are within normal limits. There is no mass, hematoma, midline shift, or acute infarct. Impression: No acute intracranial abnormality. The above report was generated using voice recognition software. It may contain grammatical, syntax or spelling errors. Electronically signed by: Mateo Bone M.D. 09/19/2016 10:28 AM Dictated Date/Time: 09/19/2016 10:24 AM CHEST ONE VIEW PORTABLE CLINICAL HISTORY: AMS dyspnea COMPARISON STUDY: 08/13/2016 FINDINGS: PermCath in the superior vena cava. Mild stable cardiomegaly. Chronic pulmonary vascular congestion. Mild superimposed right basilar infiltrate. IMPRESSION: Mild right basilar infiltrate superimposed upon chronic pulmonary vascular congestion. The above report was generated using voice recognition software. It may contain grammatical, syntax or spelling errors. Electronically signed by: Mateo Bone M.D. 09/19/2016 10:38 AM Dictated Date/Time: 09/19/2016 10:37 AM CERVICAL SPINE W/O CLINICAL HISTORY: 60 years-old Female presenting with fall neck pain . TECHNIQUE: Multidetector CT of the cervical spine was performed without the use of intravenous contrast. IV contrast: None. A dose lowering technique was used consistent with the principles of ALARA (as low as reasonably achievable). COMPARISON: None. CT DOSE (mGy.cm): The estimated cumulative dose is 1163.61 inclusive of the head CT. 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 Straightening of normal cervical lordosis, which may be positional. Vertebral body heights and alignment maintained. Intervertebral disc height loss at C5-6 with focal degenerative change evidenced by osteophytosis, endplate sclerosis and cystic change. Facet arthropathy noted at several levels. No significant osseous spinal canal narrowing. Uncovertebral hypertrophy and facet arthropathy result in mild left greater than right osseous neural foraminal narrowing at C5-6. Degenerative changes of the atlantoaxial articulation. No acute fracture or subluxation. Paraspinal soft tissues within normal limits. Limited intracranial evaluation normal. Lung apices clear. IMPRESSION: 1. No acute osseous injury of the cervical spine. 2. Focal degenerative changes at C5-6. Electronically signed by: Curry Roa M.D. 09/19/2016 10:27 AM Dictated Date/Time: 09/19/2016 10:20 AM Laboratory Results 09/19/16 09:50 Red Blood Count 3.19, Mean Corpuscular Volume 101.6, Mean Corpuscular Hemoglobin 30.1, Mean Corpuscular Hemoglobin Concent 29.6, Mean Platelet Volume 9.2, Neutrophils (%) (Auto) 71.0, Lymphocytes (%) (Auto) 13.4, Monocytes (%) ( Auto) 11.5, Eosinophils (%) (Auto) 2.6, Basophils (%) (Auto) 0.2, Neutrophils # (Auto) 6.20, Lymphocytes # (Auto) 1.17, Monocytes # (Auto) 1.00, Eosinophils # ( Auto) 0.23, Basophils # (Auto) 0.02 09/19/16 09:50 Test 09/19/16 09:50 White Blood Count 8.73 K/uL (4.8-10.8) Red Blood Count 3.19 M/uL (4.2-5.4) Hemoglobin 9.6 g/dL (12.0-16.0) Hematocrit 32.4 % (37-47) Mean Corpuscular Volume 101.6 fL (80-100) Mean Corpuscular Hemoglobin 30.1 pg (25-34) Mean Corpuscular Hemoglobin Concent 29.6 g/dl (32-36) Platelet Count 206 K/uL (130-400) Mean Platelet Volume 9.2 fL (7.4-10.4) Neutrophils (%) (Auto) 71.0 % Lymphocytes (%) (Auto) 13.4 % Monocytes (%) (Auto) 11.5 % Eosinophils (%) (Auto) 2.6 % Basophils (%) (Auto) 0.2 % Neutrophils # (Auto) 6.20 K/uL (1.4-6.5) Lymphocytes # (Auto) 1.17 K/uL (1.2-3.4) Monocytes # (Auto) 1.00 K/uL (0.11-0.59) Eosinophils # (Auto) 0.23 K/uL (0-0.5) Basophils # (Auto) 0.02 K/uL (0-0.2) RDW Standard Deviation 77.3 fL (36.4-46.3) RDW Coefficient of Variation 21.3 % (11.5-14.5) Immature Granulocyte % (Auto) 1.3 % Immature Granulocyte # (Auto) 0.11 K/uL (0.00-0.02) Nucleated RBC Absolute Count (auto) 0.25 K/uL (0-0) Nucleated Red Blood Cells % 2.8 % Anisocytosis PRESENT Macrocytosis PRESENT Prothrombin Time 10.5 SECONDS (9.0-12.0) Prothromb Time International Ratio 1.0 (0.9-1.1) Activated Partial Thromboplast Time 24.5 SECONDS (21.0-31.0) Partial Thromboplastin Ratio 0.9 Venous Blood pH 7.21 (7.36-7.41) Venous Blood Partial Pressure CO2 75 mmHg (38.0-50.0) Venous Blood Partial Pressure O2 32 mmHg Venous Blood HCO3 30 mmol/L Venous Blood Oxygen Saturation < 60.0 % Venous Blood Base Excess 0.2 mmol/L Anion Gap 4.0 mmol/L (3-11) Est Creatinine Clear Calc Drug Dose 15.3 ml/min Estimated GFR () 8.9 Estimated GFR (Non- 7.7 BUN/Creatinine Ratio 6.1 (10-20) Calcium Level 8.8 mg/dl (8.5-10.1) Total Bilirubin 0.3 mg/dl (0.2-1) Direct Bilirubin < 0.1 mg/dl (0-0.2) Aspartate Amino Transf (AST/SGOT) 15 U/L (15-37) Alanine Aminotransferase (ALT/SGPT) 29 U/L (12-78) Alkaline Phosphatase 99 U/L (45-117) Troponin I < 0.015 ng/ml (0-0.045) Total Protein 8.2 gm/dl (6.4-8.2) Albumin 2.6 gm/dl (3.4-5.0) Laboratory results per my review. Medications Administered Medications (Trade) Dose Ordered Sig/Duyen Route Start Time Stop Time Status Last Admin Dose Admin Morphine Sulfate (MoRPHine SULFATE INJ) 4 mg NOW STAT IV 09/19/16 11:09 09/19/16 11:10 DC 09/19/16 11:22 4 MG ECG Indication: weakness Rate (beats per minute): 94 Rhythm: normal sinus Findings: no ectopy, other (normal axis) ED Course ED COURSE: Vital signs were reviewed and showed hypertensive. The patients medical record was reviewed The above diagnostic studies were performed and reviewed. ED treatments and interventions as stated above. 0923: The patient was evaluated in room B7. A complete history and physical examination was performed. 0958: I reassessed the patient at this time. 1028: I updated the patient. She will be placed on BiPAP. 1108: The patient is complaining of pain. 1109: Morphine sulfate 4 mg IV 1125: I spoke with Dr. Anderson. We discussed the patient's case. The patient will be evaluated by the [facility] for further management. 1133: Upon reevaluation, the patient is doing well. I discussed my findings with the patient and she understands and agrees with the treatment plan. Based on the patients age, coexisting illnesses, exam and lab findings the decision to treat as an inpatient was made. The patient remained stable while under my care. The patient will be evaluated for further management. 1212: I reassessed the patient and she is resting comfortably in bed. Medical Decision Differential diagnoses include major intracranial, cervical, spinal, thoracic, abdominal, pelvic and neurologic injury. Fracture, contusion, sprain, strain, laceration, abrasions included as well. Patient is a 60-year-old female who presents the ER on dialysis for the past 6 weeks for recurrent falls. She has fallen 10 times in the past week. notes that this occurs with diffuse body twitching following a fall. Twitching has been present intermittently over the past 2 years but worsening over the past 10 days. On exam patient complaining neurologically intact. Labs were remarkable for an elevated creatinine as expected along with a VBG which shows a pH is 7.2 and CO2 of 75. Following this she is placed on BiPAP. She rested comfortably in the ER. Troponin was unremarkable. CT of the head and cervical spine show no acute pathology. Chest x-ray showed no obvious pneumonia although was read as a possible infiltrate. X-rays of the head and pelvis were unremarkable. Patient was updated bedside admitted to internal medicine with obesity causing hypoventilation which I favors likely causing elevation in CO2 and the recurrent twitching/falls. Medication Reconcilliation Current Medication List: was personally reviewed by me Blood Pressure Screening Patient's blood pressure: Elevated blood pressure Blood pressure disposition: Did not require urgent referral Consults Time Called: 1121 Consulting Physician: Dr. Anderson Returned Call: [phone] Anderson. We discussed the patient's case. The patient will be evaluated by the [facility] for further management. Impression Primary Impression: Acute respiratory failure with hypoxia and hypercarbia Additional Impressions: Metabolic acidosis Obesity Hypoventilation Anemia Critical Care I have personally spent 35 minutes of critical care time in the direct management of this patient. This includes bedside care, interpretation of diagnostic studies, and testing, discussion with consultants, patient, and family members, and other required patient management activities. This 35 minutes is in excess of all separately billable procedures. Scribe Attestation The scribe's documentation has been prepared under my direction and personally reviewed by me in its entirety. I confirm that the note above accurately reflects all work, treatment, procedures, and medical decision making performed by me. Departure Information Dispostion Being Evaluated By Hospitalist Referrals Emily Isaac C.R.N.P (PCP) Problem Qualifiers Additional Impressions: Obesity Obesity type: unspecified obesity type Obesity classification: adult class 3 (BMI >= 40) Serious obesity comorbidity presence: unspecified whether serious comorbidity present Body mass index: BMI 50.0-59.9 Qualified Codes: E66.9 - Obesity, unspecified; Z68.43 - Body mass index (bmi) 50-59.9 , adult Anemia Anemia type: unspecified type Qualified Codes: D64.9 - Anemia, unspecified
[2016-09-19] MEDS ORDERED: INSULIN GLARGINE SC SCH (17:00)
--- NOTE | 2016-09-19 17:26 | Pulmonary Consultation ---
History General Date of Service: Sep 19, 2016. Stated Complaint: Acute Hypercapnic Respiratory Failure,Frequent Fal HPI The patient is a 60 year old female who presents to [facility] with complaints of Acute Hypercapnic Respiratory Failure,Frequent Fal. The patient's primary care provider is Emily Isaac C.R.N.P. Patient is on BIPAP and unable to provide history. History obtain from chart review. Ms. Gaytan is a 60 year old female history COPD, OHS, ESRD on HD she was admitted for acute on chronic hypoxic hypercapnic respiratory failure and increased falls. She was recently admitted in May and July 2016 for similar complaints. She has had 5 mechanical falls associated with prodromal jerks since Thursday. Per , she had increased lethargy and somnolence for the same amount of time. There has been no trauma associated with falls. There has been no fever, chills, shortness of breath, cough, chest pain, increased sputum production or shortness of breath. Dyspnea is at baseline and she has not been able without assist for the last week. She uses trilogy bipap machine at home and is on Advair, Spriva and albuterol and home. In the ED her VS were T 36.4, P 98, RR 20, BP 129/62, SaO2 94% on 3LNC. VBG showed ph 7.21, pCO2 75, pO2, 32, HCO3 30, SaO2 < 60. She was placed on BIPAP of 12/6, RR 14 FiO2. ABG showed pH 7.26, pCO2, pO2 69, HCO3 27, SaO2 89.4% on BiPAP 30%. Review of Systems Constitutional: reports: malaise, weakness Eyes: reports: no symptoms ENT: reports: no symptoms Cardiovascular: reports: no symptoms Respiratory: reports: shortness of breath, AARON Gastrointestinal: reports: no symptoms Genitourinary - Female: reports: no symptoms Musculoskeletal: reports: muscle spasms (frequent falls ), other Integumentary: reports: dryness, change in hair/nails Neurologic: reports: no symptoms Psychiatric: reports: no symptoms Endocrine: no symptoms Hematologic / Lymphatic: no symptoms Allergic / Immunologic: no symptoms All Other Symptoms All Other Systems: Reviewed and Negative Past Medical History Past Medical History: 1. Diastolic CHF. 2. Chronic kidney disease stage IV-on dialysis 3. Diabetes mellitus. 4. Obesity. 5. Hypertension. 6. Chronic venous insufficiency. 7. Cellulitis. 8. COPD, moderate to severe 9. Pulmonary nodules 10. Monoclonal gammopathy 11. Fatty liver 12. Right thyroid nodule s/p biopsy that was negative for malignancy 13. Gout Past Medical History: diabetes, high cholesterol, hypertension Past Surgical History: 1.Hysterectomy 2.Carpal tunnel surgery 3.AV fistula left arm Family History Cancer Diabetes mellitus Gallbladder disease Heart disease Lung disease Positive for heart disease, lung problems, diabetes and cancer--father pancreatic cancer Social History Former tobocco use with 70 Pk year history. Quit 7 in 2009. She denies any alcohol or illicit drug use. Hx Tobacco Use In Past Year?: No Smoking Status: Former Smoker Alcohol: socially, no current use Drug Use: none Marital status: Housing status: lives with family Occupational Status: unemployed Immunizations History of Influenza Vaccine: Yes Influenza Vaccine Date: Apr 15, 2012 History of Tetanus Vaccine?: No History of Pneumococcal: Yes Pneumococcal Date: Jan 13, 2013 History of Hepatitis B Vaccine: No History of MDRO History of MDRO: No Allergies Coded Allergies: Daptomycin (Verified Allergy, Mild, HIVES, 09/16/16) itching Iodine (Verified Allergy, Unknown, 09/16/16) Shellfish (Verified Allergy, Unknown, 09/16/16) Sulfamethoxazole w/Trimethoprim (Verified Allergy, Unknown, RASH, 09/16/16) Codeine (Verified Adverse Reaction, Unknown, NAUSEA, 09/16/16) has tolerated morphine Uncoded Allergies: kristina wipes (Allergy, Severe, red rash, excoriation, 09/19/16) Current Medications Reported Home Medications Medications Dose Route/Sig Max Daily Dose Days Date Category Dose Instructions Keflex (Cephalexin Monohydrate) 500 Mg Cap 500 Mg PO TID 5 09/16/16 Rx Phoslo 667 Mg (Calcium Acetate (Phosphate Bin) 667 Mg Cap 667 Mg PO ACHS 09/16/16 Reported Renal (B-Complex W/ C & Folic Acid) 1 Cap Cap 1 Cap PO QAM 30 08/25/16 Rx [place] 5MG/325MG (Acetaminophen/Hydrocodone Bitart) Tab 1 Tab PO Q6H PRN 3 08/25/16 Rx PRN PAIN Famotidine 20 Mg Tab 20 Mg PO DAILY 30 08/25/16 Rx Lyrica (Pregabalin) 75 Mg Cap 75 Mg PO BID 30 08/25/16 Rx Verapamil Hcl Er (Verapamil Hcl) 120 Mg Tab 120 Mg PO HS 30 08/25/16 Rx Desenex Shake Powder (Miconazole Nitrate) 43 Appln/43 Gm Powd 1 Appln TOP UD PRN 08/13/16 Reported Prednisone 10 Mg Tab 15 Mg PO DAILY 08/13/16 Reported Protonix (Pantoprazole Sodium) 40 Mg Tab 40 Mg PO DAILY 08/13/16 Reported Oxygen Gas 3 Liters NA CONTINOUS 08/13/16 Reported Toujeo Solostar (Insulin Glargine) 300 Unit/Ml Inj 70 Units SC TID 08/13/16 Reported ADMINISTER WITH BREAKFAST, EVENING MEAL AND AT BEDTIME Doxycycline Hyclate 100 Mg Tab 100 Mg PO DAILY 08/13/16 Reported Duoneb (Ipratropium-Albuterol) 3 Ml Nebu 1 Treatment INH Q6H PRN 07/10/16 Reported Amlactin (Lactic Acid (Ammonium Lactate)) 12 % Lot 1 Appln TOP BID 07/10/16 Reported APPLY AND RUB IN A THIN FILM TO AFFECTED AREAS Vitamin E 400 Unit Tab 800 Inter.unit PO DAILY 05/05/16 Reported Vitamin D3 (Cholecalciferol) 1,000 Unit Tab 1,000 Inter.unit PO DAILY 05/05/16 Reported Spiriva Handihaler (Tiotropium Arabi) 30 Puff/540 Mcg Aerp 1 Cap INH DAILY 05/05/16 Reported One Daily For Women (Multiple Vitamins W/ Minerals) 1 Tab Tab 1 Tab PO DAILY 05/05/16 Reported Lipitor (Atorvastatin Calcium) 40 Mg Tab 40 Mg PO DAILY 05/05/16 Reported Advair Diskus 500/50 60 Dose (Fluticasone Prop/Salmeterol) 1 Ea Aerp 1 Puff INH BID 05/05/16 Reported Novolog Flexpen (Insulin Aspart) 100 Units/Ml Inj 40 Units SQ HS PRN 02/25/16 Reported Toprol-Xl (Metoprolol Succinate) 100 Mg Tabcr 150 Mg PO DAILY 02/26/14 Reported Novolog Flexpen (Insulin Aspart) 100 Units/Ml Inj 90 Units SQ W/SUPPER 09/28/13 Reported Novolog Flexpen (Insulin Aspart) 100 Units/Ml Inj 50 Units SQ W/LUNCH 09/28/13 Reported Novolog Flexpen (Insulin Aspart) 100 Units/Ml Inj 50 Units SQ W/BREAKFAST 09/28/13 Reported Zyloprim (Allopurinol) 100 Mg Tab 100 Mg PO DAILY 09/28/13 Reported Vitamin C 500 mg (Ascorbic Acid) 1 Chw Chw 1,000 Mg PO DAILY 04/15/13 Reported Vitamin B6 (Pyridoxine HCl) 100 Mg Tab 200 Mg PO DAILY 04/15/13 Reported Physical Physical Exam Vital Signs: Date Time Temp Pulse Resp B/P (MAP) Pulse Ox O2 Delivery O2 Flow Rate FiO2 09/19/16 15:50 36.4 94 18 94/53 (67) 100 BiPAP 09/19/16 14:44 36.6 99 19 124/54 (77) 100 BiPAP 09/19/16 14:20 99 15 131/74 96 09/19/16 13:51 99 15 131/74 96 Nasal Cannula 3.0 09/19/16 13:02 99 09/19/16 12:25 96 BiPAP 30 09/19/16 11:49 99 18 130/60 96 Nasal Cannula 3.0 09/19/16 11:09 98 96 30 09/19/16 10:48 96 22 129/62 96 Nasal Cannula 3.0 09/19/16 09:41 94 09/19/16 09:20 36.7 98 20 129/62 94 Nasal Cannula 3.0 VITAL SIGNS - reviewed GENERAL -Morbidly obese female lying in bed on BIPAP. HEAD - NC/AT. Topete facies. EYES - Sclera anicteric. Palpebral conjunctiva pink and moist with no injection noted. EARS - No deformities of external structures noted on gross examination bilaterally. NOSE - Midline and without cyanosis. NECK - Neck with FROM. supple, NT, thick short neck MOUTH-No oral thrush noted, Mallampati IV LUNGS - Chest wall symmetric without accessory muscle use, intercostals retractions, or central cyanosis. Normal vesicular breath sounds CTA B/L. No wheezes, rales, or rhonchi appreciated. Right PermCath in place. HEART - RRR with S1/S2. No murmur, rubs, or gallops appreciated. ABDOMEN - Obese, BS normoactive, No tenderness. EXTREMITIES - No clubbing or peripheral cyanosis. Bilateral pitting edema +2 NEUROLOGIC - Cranial nerves II through XII grossly intact. Sensory intact PSYCH - A&Ox 3, No suicidal ideations. SKIN - Blateral lower extremity edema, Chronic venous changes. Dry. Diagnostics Labs Results Past 24 Hours Test 09/19/16 09:50 09/19/16 13:59 09/19/16 16:00 Range/Units White Blood Count 8.73 4.8-10.8 K/uL Red Blood Count 3.19 4.2-5.4 M/uL Hemoglobin 9.6 12.0-16.0 g/dL Hematocrit 32.4 37-47 % Mean Corpuscular Volume 101.6 80-100 fL Mean Corpuscular Hemoglobin 30.1 25-34 pg Mean Corpuscular Hemoglobin Concent 29.6 32-36 g/dl Platelet Count 206 130-400 K/uL Mean Platelet Volume 9.2 7.4-10.4 fL Neutrophils (%) (Auto) 71.0 % Lymphocytes (%) (Auto) 13.4 % Monocytes (%) (Auto) 11.5 % Eosinophils (%) (Auto) 2.6 % Basophils (%) (Auto) 0.2 % Neutrophils # (Auto) 6.20 1.4-6.5 K/uL Lymphocytes # (Auto) 1.17 1.2-3.4 K/uL Monocytes # (Auto) 1.00 0.11-0.59 K/uL Eosinophils # (Auto) 0.23 0-0.5 K/uL Basophils # (Auto) 0.02 0-0.2 K/uL RDW Standard Deviation 77.3 36.4-46.3 fL RDW Coefficient of Variation 21.3 11.5-14.5 % Immature Granulocyte % (Auto) 1.3 % Immature Granulocyte # (Auto) 0.11 0.00-0.02 K/uL Nucleated RBC Absolute Count (auto) 0.25 0-0 K/uL Nucleated Red Blood Cells % 2.8 % Anisocytosis PRESENT Macrocytosis PRESENT Prothrombin Time 10.5 9.0-12.0 SECONDS Prothromb Time International Ratio 1.0 0.9-1.1 Activated Partial Thromboplast Time 24.5 21.0-31.0 SECONDS Partial Thromboplastin Ratio 0.9 Venous Blood pH 7.21 7.36-7.41 Venous Blood Partial Pressure CO2 75 38.0-50.0 mmHg Venous Blood Partial Pressure O2 32 mmHg Venous Blood HCO3 30 mmol/L Venous Blood Oxygen Saturation < 60.0 % Venous Blood Base Excess 0.2 mmol/L Sodium Level 137 136-145 mmol/L Potassium Level 4.8 3.5-5.1 mmol/L Chloride Level 103 98-107 mmol/L Carbon Dioxide Level 30 21-32 mmol/L Anion Gap 4.0 3-11 mmol/L Blood Urea Nitrogen 33 7-18 mg/dl Creatinine 5.50 0.60-1.20 mg/dl Est Creatinine Clear Calc Drug Dose 15.3 ml/min Estimated GFR () 8.9 Estimated GFR (Non- 7.7 BUN/Creatinine Ratio 6.1 10-20 Random Glucose 107 70-99 mg/dl Calcium Level 8.8 8.5-10.1 mg/dl Total Bilirubin 0.3 0.2-1 mg/dl Direct Bilirubin < 0.1 0-0.2 mg/dl Aspartate Amino Transf (AST/SGOT) 15 15-37 U/L Alanine Aminotransferase (ALT/SGPT) 29 12-78 U/L Alkaline Phosphatase 99 45-117 U/L Troponin I < 0.015 0-0.045 ng/ml Total Protein 8.2 6.4-8.2 gm/dl Albumin 2.6 3.4-5.0 gm/dl Arterial Blood pH 7.26 7.35-7.45 Arterial Blood Partial Pressure CO2 62 35-46 mmHg Arterial Blood Partial Pressure O2 69 80-95 mm/Hg Arterial Blood HCO3 27 19-24 mmol/L Arterial Blood Oxygen Saturation 89.4 90-95 % Arterial Blood Base Excess -0.7 -9-1.8 mEq/L Arterial Blood Gas Delivery 30% Oleg Test POS POS Vitamin B12 Level 616 211-911 pg/mL Folate 23.54 >5.38 ng/mL Microbiology Results 09/19/16 Fungal Smear, Clarissa Batch Pending 09/19/16 Fungal Culture, Clarissa Batch Pending 09/19/16 Acid Fast Stain, Clarissa Batch Pending 09/19/16 Mycobacterial Culture, Clarissa Batch Pending Diagnostic Radiology CXR 09/19/2016 IMPRESSION: Mild right basilar infiltrate superimposed upon chronic pulmonary vascular congestion. CT chest 02/13/2016 FINDINGS: Lungs remain clear. Parenchymal nodules remain unchanged. There is no interval or progressive pulmonary nodularity. Bronchiectatic and atelectatic change medial right middle lobe as well as lingula persist and appears stable. There is currently no significant mediastinal or hilar adenopathy. Low density region involving the right hepatic lobe has resolved. 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 This is unchanged. IMPRESSION: Stable exam. No evidence for progressive pulmonary nodularity. Improved liver appearance with a low-density region resolved. No additional follow-up is required TTE 07/25/2015 * Ejection Fraction = >70 %. * A full diastolic examination was done with clinical findings of Class I diastolic dysfunction. * No regional wall motion abnormalities noted. * The right ventricle is mildly dilated. * The right ventricular systolic function is mildly reduced. * There is mild tricuspid regurgitation. * Right ventricular systolic pressure is elevated at 30-40mmHg. EKG Normal sinus rhythm Incomplete right bundle branch block When compared with ECG of 13-AUG-2016 19:45, No significant change was found Impression Assessment and Plan Acute on chronic hypoxic and hyperbaric respiratory failure Obesity hypoventilation syndrome COPD MIKAYLA ESRD on HD Diastolic dysfunction Patient has acute on chronic hypoxic and hypercapnic respiratory failure which is most likely multifactorial in natures. She has COPD, MIKAYLA and OHS. Her chest xray does appear to have increased vascular congestion consistent with fluid overload and hypoalbuminemia . All of these can lead to elevate RVSP. Compliance with inhalers as well as trilogy BiPAP is questionable. This may also be an exacerbation as she does have increase opacification the right lower lobe that may represent a pneumonia. Continue with BIPAP increase settings to 14/8, as patient still has respiratory acidosis. Try to maintain SaO2 88-92%. Repeat ABG one hour after setting changes. Avoid sedatives and narcotic if at all possible, as they decrease respiratory drive and worsen hypercarpia. Continue Duonebs q6h , Advair 500/50 1 puff BID inh, Spiriva 1 puff daily. Can continue to treat empirically for pneumonia. Send sputum cultures. Optimize cardiac medications for better diastolic dysfunction and HD by nephrology for fluid removal. Continue with heparin SC for DVT ppx Consider nutrition consult to optimize protein input. I appreciate the consult and will continue to follow with you. Please consult me if you have any questions or concerns.
[2016-09-19] MEDS: DOXYCYCLINE HYCLATE 100 MG CAP PO SCH (18:00)
[2016-09-19] MEDS ORDERED: CEPHALEXIN MONOHYDRATE 250 MG CAP PO SCH (18:00)
[2016-09-19 18:21] LABS: URINE APPEARANCE CLEAR (CLEAR); URINE NITRITE NEG (NEG); URINE SPECIFIC GRAVITY >= 1.030 (1.000-1.030); UROBILINOGEN NEG (NEG)
[2016-09-19 18:24] LABS: MANUAL MICROSCOPIC REQUIRED? NO; REVIEW REQ? NO; URINE BILIRUBIN NEG (NEG); URINE COLOR YELLOW
[2016-09-19 18:25] LABS: ZZURINE CULT IF INDIC CATH YES
--- NOTE | 2016-09-19 18:42 | History and Physical ---
History & Physical Date & Time of Service: Sep 19, 2016 at 11:47 Chief Complaint: FALL Primary Care Physician: Emily Isaac C.R.N.P History of Present Illness Source: patient, family Pt is a 60 yo female with a h/o COPD, DMII, MIKAYLA, OHS, gout, CKD stage V on HD, HL, HTN, pulmonary nodules, morbid obesity, and chronic hypercapneic respiratory failure, who presents with progressively worsening hand jerking and leg weakness with falls. Denies dizziness, no LOC, no injuries. She was seen in the ER 3 days ago and had xrays, discharged to home on keflex for cellulitis prophylaxis after having a toenail torn off. Since then she has fallen an additional 5 times with the same presentation. She has c/o severe right buttocks pain with radiation down leg and tailbone pain. SHe is not able to get up on her own,. requires 2 person assistance to get back up. She has had the hand jerking for years, worse with intention, but it has worsened in the last 2 weeks in intensity and frequency. Her Trilogy machine face mask broke a few days ago and her fixed it, however he states she has been in so much pain that she has not been able to use her mask and she has only been using her NC O2 since then. She feels that since her Toprol XL dose was reduced to only taking it on days she does NOT have HD, she has had more rapid heartbeat and palpitations. SHe also feels increased fatigue the last 4 days and a reduced respiratory rate. She otherwise denies N/V, no cold symptoms, no changes in visions, no confusion and is verified by her . She has had new right buttock pain radiating down her RLE since her falls which is now resolved after receiving pain meds in ER. She has continued to fall asleep throughout ER MD and my interview. She was started on BIPAP in the ER after a VBG showed pH 7.21, CO2 75. last HD was on 09/18 and was a bit longer than her usual She was recently admitted for similar hypercapnic resp failure 1 month ago and went to [facility] and was discharged to home 2 weeks ago. Past Medical/Surgical History PMH: Chronic hypercapnic respiratory failure Obesity hypoventilation syndrome MIKAYLA on Trilogy at home COPD-moderate on PFTs, on chronic prednisone Frequent falls Morbid obesity CKD stage 5, secondary to diabetic nephropathy/hypertensive sclerosis- requiring HD TTSa Anemia of CKD Hypercalcemia Cor pulmonale Chronic right systolic and biventricular diastolic CHF Chronic venous insufficiency HTN Dyslipidemia DMII-last HgbA1C 6.3% in 04/2016 IGG KAPPA MONOCLONAL GAMMOPATHY-followed by Heme Gout Peripheral neuropathy/chronic pain Chronic suppressive therapy with Doxycycline Cervical Disc Degenerative disease Ovarian Cyst Nec/Nos Sciatica and chronic lower back pain Diverticulosis Pulmonary stable PSH: Left AVF creation 08/19/16 Hysterectomy Family History Cancer Diabetes mellitus Gallbladder disease Heart disease Lung disease Mother-COPD Father-pancreatic CA No seizures or CAD Social History Has been eating much more healthy diet since discharge from [facility] Exercise included ability to stairs and ADLs at home upon return from rehab for the first week until 4 days ago Smoking Status: Former Smoker (smoked 60 pack year history, quit age 53) Alcohol Use: none Drug Use: none Marital Status: Housing status: lives with family (in a log cabin with multiple sets of stairs) , other (has 3 grandchildren) Occupational Status: unemployed Immunizations History of Influenza Vaccine: Yes Influenza Vaccine Date: Apr 15, 2012 History of Tetanus Vaccine?: No History of Pneumococcal: Yes Pneumococcal Date: Jan 13, 2013 History of Hepatitis B Vaccine: No Multi-Drug Resistant Organisms History of MDRO: No Allergies Coded Allergies: Daptomycin (Verified Allergy, Mild, HIVES, 09/16/16) itching Iodine (Verified Allergy, Unknown, 09/16/16) Shellfish (Verified Allergy, Unknown, 09/16/16) Sulfamethoxazole w/Trimethoprim (Verified Allergy, Unknown, RASH, 09/16/16) Codeine (Verified Adverse Reaction, Unknown, NAUSEA, 09/16/16) has tolerated morphine Uncoded Allergies: kristina wipes (Allergy, Severe, red rash, excoriation, 09/19/16) Home Medications Scheduled Allopurinol (Zyloprim), 100 MG PO DAILY Ascorbic Acid (Vitamin C 500 mg), 1,000 MG PO DAILY Atorvastatin (Lipitor), 40 MG PO DAILY B-Complex W/ C & Folic Acid (Renal), 1 CAP PO QAM Calcium Acetate (Phosphate Bin (Phoslo 667 Mg), 667 MG PO ACHS Cephalexin Monohydrate (Keflex), 500 MG PO TID Cholecalciferol (Vitamin D3), 1,000 INTER.UNIT PO DAILY Doxycycline Hyclate (Doxycycline Hyclate), 100 MG PO DAILY Famotidine (Famotidine), 20 MG PO DAILY Fluticasone Prop/Salmeterol (Advair Diskus 500/50 60 Dose), 1 PUFF INH BID Home O2 Therapy (Oxygen), 3 LITERS NA CONTINOUS Insulin Aspart (Novolog Flexpen), 50 UNITS SQ W/BREAKFAST Insulin Aspart (Novolog Flexpen), 50 UNITS SQ W/LUNCH Insulin Aspart (Novolog Flexpen), 90 UNITS SQ W/SUPPER Insulin Glargine (Toujeo Solostar), 70 UNITS SC TID Lactic Acid (Ammonium Lactate) (Amlactin), 1 APPLN TOP BID Metoprolol Succ (Toprol Xl) (Toprol-Xl ), 150 MG PO DAILY Multiple Vitamins W/ Minerals (One Daily For Women), 1 TAB PO DAILY Pantoprazole (Protonix), 40 MG PO DAILY Prednisone Tab (Prednisone), 15 MG PO DAILY Pregabalin (Lyrica), 75 MG PO BID Pyridoxine (Vitamin B6), 200 MG PO DAILY Tiotropium Plover (Spiriva Handihaler), 1 CAP INH DAILY Verapamil Hcl (Verapamil Hcl Er), 120 MG PO HS Vitamin E (Vitamin E), 800 INTER.UNIT PO DAILY Scheduled PRN Hydrocodone/Acetaminophen 5MG/325MG ([place] 5MG/325MG), 1 TAB PO Q6H PRN for Pain Insulin Aspart (Novolog Flexpen), 40 UNITS SQ HS PRN for Late Night Snack Ipratropium-Albuterol (Duoneb), 1 TREATMENT INH Q6H PRN for SOB/Wheezing Miconazole Nitrate (Desenex Shake Powder), 1 APPLN TOP UD PRN for Affected Skin Folds Review of Systems Constitutional: + fatigue, No fever Eyes: No problem reported ENT: No problem reported Respiratory: + shortness of breath Cardiovascular: No chest pain Abdomen: No pain, No nausea Musculoskeletal: + joint pain, + muscle pain Genitourinary - Female: No problem reported Neurologic: No problem reported Psychiatric: No problem reported Endocrine: No problem reported Hematologic / Lymphatic: No problem reported Integumentary: No problem reported Allergic / Immunologic: No problem reported Physical Exam Vital Signs Date Time Temp Pulse Resp B/P (MAP) Pulse Ox O2 Delivery O2 Flow Rate FiO2 09/19/16 11:09 98 96 30 09/19/16 10:48 96 22 129/62 96 Nasal Cannula 3.0 09/19/16 09:41 94 09/19/16 09:20 36.7 98 20 129/62 94 Nasal Cannula 3.0 General Appearance: no apparent distress (lying in bed sleeping with BiPAP in place, but wakes up to answer questions), + obese Head: normocephalic, atraumatic Eyes: normal inspection, PERRL, EOMI, sclerae normal ENT: hearing grossly normal Neck: trachea midline, + pertinent finding (obese neck) Respiratory/Chest: no respiratory distress, no accessory muscle use, + decreased breath sounds (throughout) Cardiovascular: regular rate, rhythm, no murmur, + pertinent finding (2+ pitting edema legs to thighs bilat) Abdomen/GI: normal bowel sounds, non tender, soft (and morbidly obese) Back: normal inspection Extremities/Musculoskelatal: + pertinent finding (right great toe with toenail missing, rt 2nd toe dorsal surface with shallow ulcer, no surrounding erythema) Neurologic/Psych: + depressed affect, + pertinent finding (drowsy but awoke for exam and answered questions appropriately) Skin: + pertinent finding (severe ichthyosis of the legs and feet) Diagnostics Laboratory Results Results Past 24 Hours Test 09/19/16 09:50 Range/Units White Blood Count 8.73 4.8-10.8 K/uL Red Blood Count 3.19 4.2-5.4 M/uL Hemoglobin 9.6 12.0-16.0 g/dL Hematocrit 32.4 37-47 % Mean Corpuscular Volume 101.6 80-100 fL Mean Corpuscular Hemoglobin 30.1 25-34 pg Mean Corpuscular Hemoglobin Concent 29.6 32-36 g/dl Platelet Count 206 130-400 K/uL Mean Platelet Volume 9.2 7.4-10.4 fL Neutrophils (%) (Auto) 71.0 % Lymphocytes (%) (Auto) 13.4 % Monocytes (%) (Auto) 11.5 % Eosinophils (%) (Auto) 2.6 % Basophils (%) (Auto) 0.2 % Neutrophils # (Auto) 6.20 1.4-6.5 K/uL Lymphocytes # (Auto) 1.17 1.2-3.4 K/uL Monocytes # (Auto) 1.00 0.11-0.59 K/uL Eosinophils # (Auto) 0.23 0-0.5 K/uL Basophils # (Auto) 0.02 0-0.2 K/uL RDW Standard Deviation 77.3 36.4-46.3 fL RDW Coefficient of Variation 21.3 11.5-14.5 % Immature Granulocyte % (Auto) 1.3 % Immature Granulocyte # (Auto) 0.11 0.00-0.02 K/uL Nucleated RBC Absolute Count (auto) 0.25 0-0 K/uL Nucleated Red Blood Cells % 2.8 % Anisocytosis PRESENT Macrocytosis PRESENT Prothrombin Time 10.5 9.0-12.0 SECONDS Prothromb Time International Ratio 1.0 0.9-1.1 Activated Partial Thromboplast Time 24.5 21.0-31.0 SECONDS Partial Thromboplastin Ratio 0.9 Venous Blood pH 7.21 7.36-7.41 Venous Blood Partial Pressure CO2 75 38.0-50.0 mmHg Venous Blood Partial Pressure O2 32 mmHg Venous Blood HCO3 30 mmol/L Venous Blood Oxygen Saturation < 60.0 % Venous Blood Base Excess 0.2 mmol/L Sodium Level 137 136-145 mmol/L Potassium Level 4.8 3.5-5.1 mmol/L Chloride Level 103 98-107 mmol/L Carbon Dioxide Level 30 21-32 mmol/L Anion Gap 4.0 3-11 mmol/L Blood Urea Nitrogen 33 7-18 mg/dl Creatinine 5.50 0.60-1.20 mg/dl Est Creatinine Clear Calc Drug Dose 15.3 ml/min Estimated GFR () 8.9 Estimated GFR (Non- 7.7 BUN/Creatinine Ratio 6.1 10-20 Random Glucose 107 70-99 mg/dl Calcium Level 8.8 8.5-10.1 mg/dl Total Bilirubin 0.3 0.2-1 mg/dl Direct Bilirubin < 0.1 0-0.2 mg/dl Aspartate Amino Transf (AST/SGOT) 15 15-37 U/L Alanine Aminotransferase (ALT/SGPT) 29 12-78 U/L Alkaline Phosphatase 99 45-117 U/L Troponin I < 0.015 0-0.045 ng/ml Total Protein 8.2 6.4-8.2 gm/dl Albumin 2.6 3.4-5.0 gm/dl Diagnostic Radiology Chest x-ray: Mild right basilar infiltrate superimposed upon chronic pulmonary vascular congestion. Head CT-negative CT of the cervical spine: 1. No acute osseous injury of the cervical spine. 2. Focal degenerative changes at C5-6. X-ray pelvis and hips-no acute fracture EKG Normal sinus rhythm, incomplete right bundle branch block, unchanged from previous Impression Assessment and Plan Pt is a 60 yo female with a h/o COPD, DMII, MIKAYLA, OHS, gout, CKD stage V on HD, HL, HTN, pulmonary nodules, morbid obesity, and chronic hypercapnic respiratory failure, who presents with progressively worsening hand jerking and leg weakness with falls. Denies dizziness, no LOC, no injuries. She was seen in the ER 3 days ago and had xrays, discharged to home on keflex for cellulitis prophylaxis after having a toenail torn off. Since then she has fallen an additional 5 times with the same presentation. She has c/o severe right buttocks pain with radiation down leg and tailbone pain. SHe is not able to get up on her own,. requires 2 person assistance to get back up. She has had the hand jerking for years, worse with intention, but it has worsened in the last 2 weeks in intensity and frequency. Her Trilogy machine face mask broke a few days ago and her fixed it, however he states she has been in so much pain that she has not been able to use her mask and she has only been using her NC O2 since then. She feels that since her Toprol XL dose was reduced to only taking it on days she does NOT have HD, she has had more rapid heartbeat and palpitations. SHe also feels increased fatigue the last 4 days and a reduced respiratory rate. She otherwise denies N/V, no cold symptoms, no changes in visions, no confusion and is verified by her . She has had new right buttock pain radiating down her RLE since her falls which is now resolved after receiving pain meds in ER. She has continued to fall asleep throughout ER MD and my interview. She was started on BIPAP in the ER after a VBG showed pH 7.21, CO2 75. last HD was on 09/18 and was a bit longer than her usual She was recently admitted for similar hypercapnic resp failure 1 month ago and went to [facility] and was discharged to home 2 weeks ago. Acute on chronic hypercapnic respiratory failure/obesity hypoventilation syndrome/MIKAYLA/COPD-presents with hypercapnia most likely secondary to poor compliance with BiPAP at home -Continue BiPAP here and repeat ABG in 2 hours -Appreciate pulmonary consultation - DuoNebs q6 hrs - Continue Advair, Spiriva, and Prednisone 15 mg daily -Patient is working on healthy diet and weight loss Possible right lower lobe pneumonia-seen on chest x-ray -We will treat with Rocephin and azithromycin for now as per pulmonary recommendations Frequent falls, likely secondary to deconditioning, weakness, jerkiness secondary to hypercapnia - Head CT- Negative for any acute changes - PT/OT evaluations Tailbone pain and right-sided sciatica-exacerbated by recent falls. Also with toenail avulsion and abrasion of second toe on the right -Continue Lyrica for pain -Patient's is requesting Dilaudid when necessary-Will order but with caution given respiratory depression, must have BiPAP on if taking this -Was on Keflex prior to admission as a prophylaxis -Wound care consult CKD stage 5, secondary to diabetic nephropathy/hypertensive sclerosis- requiring HD Thursday. Has a PermCath on the right while left AV fistula is maturing - Nephrology consulted, appreciate recommendations -- Renal diet -- Hyperphosphatemia: Phoslo QAC -- Nephrocaps 1 tab QAM -- Epogen Hypercalcemia- noted during previous admission: - Serum free light chain ratio is elevated. UIEP was positive for IgG [place] monoclonal protein during outpatient workup - Followed by Dr. Delong, pending further evaluation Cor pulmonale: - Last echo 07/25/15: Hyperdynamic LV systolic function. Mild concentric LV hypertrophy. LV diastolic dysfunction. Mild RV dilatation and systolic dysfunction. Mild tricuspid regurgitation. Mildly elevated RV systolic pressure. Normal central venous pressure. Ejection Fraction = >70 % - Daily weights, I's and O's Chronic venous insufficiency: Elevate legs, TEDs HTN- CONTROLLED: - Continue Toprol-XL 150 mg only on days off from dialysis - Hypotensive episodes- Verapamil CR 120 mg HS was completely discontinued at recent rehabilitation stay Dyslipidemia: Lipitor 40 mg daily DM- HbA1c 6.3% on 05/20/16: -Normally on Toujeo 70 units 3 times a day and high doses of NovoLog throughout the day - Pharmacy consulted for glycemic management -Check hemoglobin A1c Gout- ASYMPTOMATIC: Allopurinol 100 mg daily Peripheral neuropathy/chronic pain: - Pregabalin 75 mg BID Chronic suppressive therapy- follows w/ ID: Continue Doxycycline 100 mg daily DVT Prophylaxis: Heparin Code Status: LEVEL I, FULL Disposition-PT/OT evaluations, probably needs rehabilitation Level of Care Telemetry Resuscitation Status FULL RESUSCITATION Additional Copies To Emily Isaac C.R.NFranklynP
[2016-09-19 19:21] LABS: ARTERIAL BLOOD GAS BASE EXCESS -1.3 mEq/L (-9-1.8); ARTERIAL BLOOD GAS HCO3 27 mmol/L (19-24); ARTERIAL BLOOD GAS PO2 68 mm/Hg (80-95); ARTERIAL BLOOD GAS pH 7.25 (7.35-7.45)
[2016-09-19 19:23] LABS: O2 ADMINISTRATION 30%
[2016-09-19 19:24] LABS: ALLEN TEST POS (POS)
[2016-09-19] MEDS ORDERED: AZITHROMYCIN IV 500 MG in DEXTROSE 5% 250ML 250 ML IV ONE (19:30)
[2016-09-19] MEDS: CEFTRIAXONE SOD INJ 1 GM in DEXTROSE 5% ADD-VANTAGE 50ML 50 ML IV SCH (19:46)
[2016-09-19] MEDS ORDERED: INSULIN GLARGINE SC ONE (20:45)
[2016-09-19] MEDS: PREGABALIN 75 MG CAP PO SCH (21:00)
[2016-09-19] MEDS: FLUTICASONE/SALMETEROL (ADVAIR) 500/50 INH 14 PUFF INH SCH (21:49)
[2016-09-19] MEDS: AMMONIUM LACTATE 12% LOTION 225 GM BTL EXT SCH (21:49)
[2016-09-19] MEDS: HEPARIN SOD 5000 UNIT/0.5 ML CARP SQ SCH (22:01)
--- NOTE | 2016-09-19 23:21 | Nephrology Consultation ---
Nephrology Consultation Date & Providers Date of Consultation: Sep 19, 2016. Primary Care Provider: Emily Isaac C.R.N.P Referring Provider: Reason for Consultation Management of hemodialysis for ESRD. History of Present Illness Jazmin is a 60-year-old female with past medical history significant for end-stage renal disease, hypertension, diabetes, morbid obesity admitted to the hospital with recurrent fall over last few weeks. Nephrologic consult was requested to provide hemodialysis while inpatient. Electronic medical records including labs and imaging are reviewed in detail during patient's visit. Jazmin has end-stage renal disease secondary to diabetic, HTN and obesity related nephrosclerosis. She was started on HD on July 27 for diuretic resistant volume overload and electrolyte abnormality, currently on hemodialysis on Thursday, , Thursday at [facility]. She she presented to the ED earlier today for recurrent fall over last few days to weeks. W/u including imaging of head, neck was negative for any acute fracture. She has morbid obesity, has difficulty taking care of herself, recently was discharged from hospital to [facility] rehab. ABG shower CO2 75 which is not unusual for her. Currently she is sleepy byt easily arousable. Had HD yesterday, now BP, volume status and electrolyte stable. Allergies Coded Allergies: Daptomycin (Verified Allergy, Mild, HIVES, 09/16/16) itching Iodine (Verified Allergy, Unknown, 09/16/16) Shellfish (Verified Allergy, Unknown, 09/16/16) Sulfamethoxazole w/Trimethoprim (Verified Allergy, Unknown, RASH, 09/16/16) Codeine (Verified Adverse Reaction, Unknown, NAUSEA, 09/16/16) has tolerated morphine Uncoded Allergies: kristina wipes (Allergy, Severe, red rash, excoriation, 09/19/16) Family History Cancer Diabetes mellitus Gallbladder disease Heart disease Lung disease Social History Smoking Status: Former Smoker Drug Use: none Marital Status: Housing Status: lives with family Occupation: unemployed Review of Systems A complete review of systems was performed. Pertinent positives are noted above. All other systems are negative. Physical Exam Date Time Temp Pulse Resp B/P (MAP) Pulse Ox O2 Delivery O2 Flow Rate FiO2 09/19/16 11:09 98 96 30 09/19/16 10:48 96 22 129/62 96 Nasal Cannula 3.0 09/19/16 09:41 94 09/19/16 09:20 36.7 98 20 129/62 94 Nasal Cannula 3.0 GENERAL: middle aged female, AAA x 3, morbidly obese, not in any distress. HEENT: Atraumatic, normocephalic. NECK: Supple, no JVD, no carotid bruit appreciated. ENT: No sinus tenderness MOUTH and THROAT: Moist oral mucosa, no oral ulcer or pharyngeal erythema RESPIRATORY: Normal breathing efforts, no accessory muscle use, clear to auscultation bilaterally, no wheezes or rales. CARDIOVASCULAR: S1, S2 normal, rate rhythm regular. ABDOMEN: Soft, nontender, positive bowel sound. MUSCULOSKELETAL: No CVA tenderness. No joint swelling, erythema or tenderness. Normal range of motion. SKIN: No skin rash EXTREMITY: No lower extremity edema NEURO: No gross focal neurological deficit, speech fluent. PSYCHIATRY: Normal mood and judgment Laboratory Results Last 24 Hours Test 09/19/16 09:50 White Blood Count 8.73 K/uL Red Blood Count 3.19 M/uL Hemoglobin 9.6 g/dL Hematocrit 32.4 % Mean Corpuscular Volume 101.6 fL Mean Corpuscular Hemoglobin 30.1 pg Mean Corpuscular Hemoglobin Concent 29.6 g/dl Platelet Count 206 K/uL Mean Platelet Volume 9.2 fL Neutrophils (%) (Auto) 71.0 % Lymphocytes (%) (Auto) 13.4 % Monocytes (%) (Auto) 11.5 % Eosinophils (%) (Auto) 2.6 % Basophils (%) (Auto) 0.2 % Neutrophils # (Auto) 6.20 K/uL Lymphocytes # (Auto) 1.17 K/uL Monocytes # (Auto) 1.00 K/uL Eosinophils # (Auto) 0.23 K/uL Basophils # (Auto) 0.02 K/uL RDW Standard Deviation 77.3 fL RDW Coefficient of Variation 21.3 % Immature Granulocyte % (Auto) 1.3 % Immature Granulocyte # (Auto) 0.11 K/uL Nucleated RBC Absolute Count (auto) 0.25 K/uL Nucleated Red Blood Cells % 2.8 % Anisocytosis PRESENT Macrocytosis PRESENT Prothrombin Time 10.5 SECONDS Prothromb Time International Ratio 1.0 Activated Partial Thromboplast Time 24.5 SECONDS Partial Thromboplastin Ratio 0.9 Venous Blood pH 7.21 Venous Blood Partial Pressure CO2 75 mmHg Venous Blood Partial Pressure O2 32 mmHg Venous Blood HCO3 30 mmol/L Venous Blood Oxygen Saturation < 60.0 % Venous Blood Base Excess 0.2 mmol/L Sodium Level 137 mmol/L Potassium Level 4.8 mmol/L Chloride Level 103 mmol/L Carbon Dioxide Level 30 mmol/L Anion Gap 4.0 mmol/L Blood Urea Nitrogen 33 mg/dl Creatinine 5.50 mg/dl Est Creatinine Clear Calc Drug Dose 15.3 ml/min Estimated GFR () 8.9 Estimated GFR (Non- 7.7 BUN/Creatinine Ratio 6.1 Random Glucose 107 mg/dl Calcium Level 8.8 mg/dl Total Bilirubin 0.3 mg/dl Direct Bilirubin < 0.1 mg/dl Aspartate Amino Transf (AST/SGOT) 15 U/L Alanine Aminotransferase (ALT/SGPT) 29 U/L Alkaline Phosphatase 99 U/L Troponin I < 0.015 ng/ml Total Protein 8.2 gm/dl Albumin 2.6 gm/dl Impression (1) ESRD on hemodialysis (2) Frequent falls (3) Obesity hypoventilation syndrome (4) Metabolic alkalosis (5) Anemia Hemalatha is a 60-year-old female with morbid obesity, obesity hypoventilation syndrome, recurrent hypercapnia, 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 She has had multiple hospitalizations for volume overload and electrolyte abnormalities associated with diuretics. Hemalatha started hemodialysis during hospitalization in June 2016. Permcath was placed 07/25. She completed her first dialysis treatment on . She is on hemodialysis at [facility] TTS schedule. She currently dialyzes via a TDC. AVF created 08/19/[address] Thapa. She was admitted today with recurrent fall at home over last few days and weeks. Had HD yesterday. Recommendations --currently stable without need for urgent dialysis, Will schedule for hemodialysis tomorrow as her regular schedule, will do the dialysis with 2 K bath, ultra filtration as tolerated to reach her estimated dry weigh. -- continue on Nephrocaps and phosphate binder -- will give SAMARA [id number] unit IV with Hd on 09/20/16. -- avoid IV fluid, dose medications for GFR less than 15 and follow low- potassium diet --- discussed with the HD nurse and order placed for HD tomorrow. 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 Thank you for allowing me to participate in your patient's care. It was a pleasure to see Jazmin This chart was completed utilizing [email or web address] Speech and voice recognition software. Grammatical errors, random word insertions, pronoun errors and incomplete sentences are occasional consequences of this system. Any questions or concerns about the content, text or information contained within the body of this dictation should be addressed directly to the physician for clarification.
[2016-09-20] VITALS (39 sets, daily range): BP systolic 90–127; BP diastolic 46–68; PULSE 82–108; TEMP 36–37.7; O2SAT 91–100
[2016-09-20] MEDS ORDERED: INSULIN ASPART 100 UNITS/ML 3 ML PEN SC ONE (02:00)
[2016-09-20] MEDS: ALBUT/IPRATROP 3MG/0.5MG NEB 3 ML VIAL INH SCH ×4 (02:31→18:51)
[2016-09-20] MEDS: HEPARIN SOD 5000 UNIT/0.5 ML CARP SQ SCH ×3 (05:27→20:30)
[2016-09-20] MEDS: ACETAMINOPHEN 325 MG TAB PO PRN ×2 (05:31→14:09)
[2016-09-20 06:28] LABS: BASO % 0.2 %; BASO ABS # 0.02 K/uL (0-0.2); EOS % 2.5 %; HEMATOCRIT 31.3 % (37-47); IG% 0.6 %; LYMPH % 11.3 %; LYMPH ABS # 0.95 K/uL (1.2-3.4); MEAN CELL VOLUME 100.6 fL (80-100); MEAN CORPUSCULAR HEMOGLOBIN 29.6 pg (25-34); MEAN CORPUSCULAR HGB CONC 29.4 g/dl (32-36); MEAN PLATELET VOLUME 9.8 fL (7.4-10.4); MONO % 9.8 %; NEUT % 75.6 %; PLATELET COUNT 203 K/uL (130-400); RED BLOOD COUNT 3.11 M/uL (4.2-5.4); WHITE BLOOD COUNT 8.38 K/uL (4.8-10.8)
[2016-09-20] MEDS: INSULIN ASPART 100 UNITS/ML 3 ML PEN SC SCH ×4 (07:00→20:28)
[2016-09-20 07:05] LABS: ANISOCYTOSIS PRESENT; COMPLETE YES
[2016-09-20 07:09] LABS: BUN/CREATININE RATIO 6.3 (10-20); CALCIUM 8.3 mg/dl (8.5-10.1); CREATININE 6.9 mg/dl (0.60-1.20); PHOSPHORUS 4.2 mg/dl (2.5-4.9); POTASSIUM 4.7 mmol/L (3.5-5.1)
[2016-09-20] MEDS ORDERED: INSULIN ASPART 100 UNITS/ML 3 ML PEN SQ SCH ×2 (07:30→11:00)
[2016-09-20 07:53] LABS: ESTIMATED AVERAGE GLUCOSE 140 mg/dl; HA1C FLAG Normal (Normal)
[2016-09-20] MEDS ORDERED: EPOETIN ALFA 10,000 UNITS/ML VIAL IV SCH (08:00)
[2016-09-20] MEDS: FLUTICASONE/SALMETEROL (ADVAIR) 500/50 INH 14 PUFF INH SCH ×2 (08:20→20:37)
[2016-09-20] MEDS: CALCIUM ACETATE 667MG GELCAP PO SCH ×4 (08:20→20:23)
[2016-09-20] MEDS: TIOTROPIUM BROMIDE 5 PUFF/90 MCG INH INH SCH (08:21)
[2016-09-20] MEDS: CHOLECALCIFEROL 1000 INTER.UNIT TAB PO SCH (08:23)
[2016-09-20] MEDS: METOPROLOL SUCC 50MG EXT REL TAB PO SCH (08:24)
[2016-09-20] MEDS: FAMOTIDINE 20 MG TAB PO SCH (08:24)
[2016-09-20] MEDS: PYRIDOXINE HCL 50 MG TAB PO SCH (08:25)
[2016-09-20] MEDS: CEROVITE ADV FORMULA TAB PO SCH (08:25)
[2016-09-20] MEDS: NEPHROCAPS PO SCH (08:25)
[2016-09-20] MEDS: ALLOPURINOL 100 MG TAB PO SCH (08:25)
[2016-09-20] MEDS: PANTOprazole SOD 40 MG TAB PO SCH (08:25)
[2016-09-20] MEDS: ATORVASTATIN 40 MG TAB PO SCH (08:25)
[2016-09-20] MEDS: PREGABALIN 75 MG CAP PO SCH ×2 (08:31→20:36)
[2016-09-20] MEDS: AMMONIUM LACTATE 12% LOTION 225 GM BTL EXT SCH ×2 (08:32→20:37)
--- NOTE | 2016-09-20 08:33 | Nephrology Progress Note ---
Nephrology Progress Note Date of Service Sep 20, 2016. Chief Complaint Follow-up for ESRD on hemodialysis. Subjective Jazmin was seen and examined in her room this morning. She was awake, alert, her back pain improved. Currently her main complaint is headache as the CPAP mush is too tight for her. Blood pressure electively soft, electrolyte acceptable. Review of Systems A complete review of systems was performed. Pertinent positives are noted above. All other systems are negative. Vital Signs Last 8 Hrs Date Time Temp Pulse Resp B/P (MAP) Pulse Ox O2 Delivery O2 Flow Rate FiO2 09/20/16 06:52 101 95 30 09/20/16 06:50 101 21 95 BiPAP/CPAP 30 09/20/16 05:12 108 93 30 09/20/16 04:24 37.7 105 21 94/46 (62) 91 BiPAP 30 09/20/16 04:00 BiPAP 30 09/20/16 02:32 96 93 30 09/20/16 02:31 96 22 93 BiPAP/CPAP 30 09/20/16 00:00 BiPAP 30 09/19/16 23:58 37.5 105 20 129/47 (74) 96 BiPAP 30 Last Recorded Weight Weight (Kilograms): 141.300 Physical Exam GENERAL: Middle-aged female, AAA x 3, morbidly obese NECK: Supple, no JVD. RESPIRATORY: Normal breathing efforts, no accessory muscle use, clear to auscultation bilaterally, no wheezes or rales. CARDIOVASCULAR: S1, S2 normal, rate rhythm regular. EXTREMITY: trace bilateral lower extremity edema NEURO: speech fluent. PSYCHIATRY: Normal mood and judgment Family History Cancer Diabetes mellitus Gallbladder disease Heart disease Lung disease Social History Smoking Status: Former smoker Smokeless Tobacco Use: No Alcohol Use: none Drug Use: none Marital Status: Housing Status: lives with family Occupation: unemployed Laboratory Results Past 24 Hours 09/19/16 09:50 Red Blood Count 3.19, Mean Corpuscular Volume 101.6, Mean Corpuscular Hemoglobin 30.1, Mean Corpuscular Hemoglobin Concent 29.6, Mean Platelet Volume 9.2, Neutrophils (%) (Auto) 71.0, Lymphocytes (%) (Auto) 13.4, Monocytes (%) ( Auto) 11.5, Eosinophils (%) (Auto) 2.6, Basophils (%) (Auto) 0.2, Neutrophils # (Auto) 6.20, Lymphocytes # (Auto) 1.17, Monocytes # (Auto) 1.00, Eosinophils # ( Auto) 0.23, Basophils # (Auto) 0.02 09/20/16 05:57 Red Blood Count 3.11, Mean Corpuscular Volume 100.6, Mean Corpuscular Hemoglobin 29.6, Mean Corpuscular Hemoglobin Concent 29.4, Mean Platelet Volume 9.8, Neutrophils (%) (Auto) 75.6, Lymphocytes (%) (Auto) 11.3, Monocytes (%) ( Auto) 9.8, Eosinophils (%) (Auto) 2.5, Basophils (%) (Auto) 0.2, Neutrophils # ( Auto) 6.33, Lymphocytes # (Auto) 0.95, Monocytes # (Auto) 0.82, Eosinophils # ( Auto) 0.21, Basophils # (Auto) 0.02 09/19/16 09:50 09/20/16 05:57 Test 09/19/16 09:50 09/19/16 13:59 09/19/16 16:25 09/19/16 16:42 White Blood Count 8.73 K/uL (4.8-10.8) Red Blood Count 3.19 M/uL (4.2-5.4) Hemoglobin 9.6 g/dL (12.0-16.0) Hematocrit 32.4 % (37-47) Mean Corpuscular Volume 101.6 fL (80-100) Mean Corpuscular Hemoglobin 30.1 pg (25-34) Mean Corpuscular Hemoglobin Concent 29.6 g/dl (32-36) Platelet Count 206 K/uL (130-400) Mean Platelet Volume 9.2 fL (7.4-10.4) Neutrophils (%) (Auto) 71.0 % Lymphocytes (%) (Auto) 13.4 % Monocytes (%) (Auto) 11.5 % Eosinophils (%) (Auto) 2.6 % Basophils (%) (Auto) 0.2 % Neutrophils # (Auto) 6.20 K/uL (1.4-6.5) Lymphocytes # (Auto) 1.17 K/uL (1.2-3.4) Monocytes # (Auto) 1.00 K/uL (0.11-0.59) Eosinophils # (Auto) 0.23 K/uL (0-0.5) Basophils # (Auto) 0.02 K/uL (0-0.2) RDW Standard Deviation 77.3 fL (36.4-46.3) RDW Coefficient of Variation 21.3 % (11.5-14.5) Immature Granulocyte % (Auto) 1.3 % Immature Granulocyte # (Auto) 0.11 K/uL (0.00-0.02) Nucleated RBC Absolute Count (auto) 0.25 K/uL (0-0) Nucleated Red Blood Cells % 2.8 % Anisocytosis PRESENT Macrocytosis PRESENT Prothrombin Time 10.5 SECONDS (9.0-12.0) Prothromb Time International Ratio 1.0 (0.9-1.1) Activated Partial Thromboplast Time 24.5 SECONDS (21.0-31.0) Partial Thromboplastin Ratio 0.9 Venous Blood pH 7.21 (7.36-7.41) Venous Blood Partial Pressure CO2 75 mmHg (38.0-50.0) Venous Blood Partial Pressure O2 32 mmHg Venous Blood HCO3 30 mmol/L Venous Blood Oxygen Saturation < 60.0 % Venous Blood Base Excess 0.2 mmol/L Anion Gap 4.0 mmol/L (3-11) Est Creatinine Clear Calc Drug Dose 15.3 ml/min Estimated GFR () 8.9 Estimated GFR (Non- 7.7 BUN/Creatinine Ratio 6.1 (10-20) Calcium Level 8.8 mg/dl (8.5-10.1) Total Bilirubin 0.3 mg/dl (0.2-1) Direct Bilirubin < 0.1 mg/dl (0-0.2) Aspartate Amino Transf (AST/SGOT) 15 U/L (15-37) Alanine Aminotransferase (ALT/SGPT) 29 U/L (12-78) Alkaline Phosphatase 99 U/L (45-117) Troponin I < 0.015 ng/ml (0-0.045) Total Protein 8.2 gm/dl (6.4-8.2) Albumin 2.6 gm/dl (3.4-5.0) Arterial Blood pH 7.26 (7.35-7.45) Arterial Blood Partial Pressure CO2 62 mmHg (35-46) Arterial Blood Partial Pressure O2 69 mm/Hg (80-95) Arterial Blood HCO3 27 mmol/L (19-24) Arterial Blood Oxygen Saturation 89.4 % (90-95) Arterial Blood Base Excess -0.7 mEq/L (-9-1.8) Arterial Blood Gas Delivery 30% Oleg Test POS (POS) Vitamin B12 Level 616 pg/mL (211-911) Folate 23.54 ng/mL (>5.38) Bedside Glucose 70 mg/dl (70-90) 84 mg/dl (70-90) Test 09/19/16 17:10 09/19/16 19:10 09/19/16 20:10 09/20/16 01:37 Urine Color YELLOW Urine Appearance CLEAR (CLEAR) Urine pH 5.0 (4.5-7.5) Urine Specific [place] >= 1.030 (1.000-1.030) Urine Protein TRACE (NEG) Urine Glucose (UA) NEG (NEG) Urine Ketones 1+ (NEG) Urine Occult Blood NEG (NEG) Urine Nitrite NEG (NEG) Urine Bilirubin NEG (NEG) Urine Urobilinogen NEG (NEG) Urine Leukocyte Esterase TRACE (NEG) Arterial Blood pH 7.25 (7.35-7.45) Arterial Blood Partial Pressure CO2 62 mmHg (35-46) Arterial Blood Partial Pressure O2 68 mm/Hg (80-95) Arterial Blood HCO3 27 mmol/L (19-24) Arterial Blood Oxygen Saturation 89.0 % (90-95) Arterial Blood Base Excess -1.3 mEq/L (-9-1.8) Arterial Blood Gas Delivery 30% Oleg Test POS (POS) Bedside Glucose 81 mg/dl (70-90) 96 mg/dl (70-90) Test 09/20/16 05:57 09/20/16 06:53 09/20/16 07:37 White Blood Count 8.38 K/uL (4.8-10.8) Red Blood Count 3.11 M/uL (4.2-5.4) Hemoglobin 9.2 g/dL (12.0-16.0) Hematocrit 31.3 % (37-47) Mean Corpuscular Volume 100.6 fL (80-100) Mean Corpuscular Hemoglobin 29.6 pg (25-34) Mean Corpuscular Hemoglobin Concent 29.4 g/dl (32-36) Platelet Count 203 K/uL (130-400) Mean Platelet Volume 9.8 fL (7.4-10.4) Neutrophils (%) (Auto) 75.6 % Lymphocytes (%) (Auto) 11.3 % Monocytes (%) (Auto) 9.8 % Eosinophils (%) (Auto) 2.5 % Basophils (%) (Auto) 0.2 % Neutrophils # (Auto) 6.33 K/uL (1.4-6.5) Lymphocytes # (Auto) 0.95 K/uL (1.2-3.4) Monocytes # (Auto) 0.82 K/uL (0.11-0.59) Eosinophils # (Auto) 0.21 K/uL (0-0.5) Basophils # (Auto) 0.02 K/uL (0-0.2) RDW Standard Deviation 76.2 fL (36.4-46.3) RDW Coefficient of Variation 21.5 % (11.5-14.5) Immature Granulocyte % (Auto) 0.6 % Immature Granulocyte # (Auto) 0.05 K/uL (0.00-0.02) Nucleated RBC Absolute Count (auto) 0.18 K/uL (0-0) Nucleated Red Blood Cells % 2.2 % Anisocytosis PRESENT Anion Gap 8.0 mmol/L (3-11) Est Creatinine Clear Calc Drug Dose 12.1 ml/min Estimated GFR () 6.8 Estimated GFR (Non- 5.8 BUN/Creatinine Ratio 6.3 (10-20) Calcium Level 8.3 mg/dl (8.5-10.1) Phosphorus Level 4.2 mg/dl (2.5-4.9) Albumin 2.5 gm/dl (3.4-5.0) Bedside Glucose 92 mg/dl (70-90) Allergies Coded Allergies: Daptomycin (Verified Allergy, Mild, HIVES, 09/16/16) itching Iodine (Verified Allergy, Unknown, 09/16/16) Shellfish (Verified Allergy, Unknown, 09/16/16) Sulfamethoxazole w/Trimethoprim (Verified Allergy, Unknown, RASH, 09/16/16) Codeine (Verified Adverse Reaction, Unknown, NAUSEA, 09/16/16) has tolerated morphine Uncoded Allergies: kristina wipes (Allergy, Severe, red rash, excoriation, 09/19/16) Medications Current Inpatient Medications Medications (Trade) Dose Ordered Sig/Duyen Route Start Time Stop Time Status Last Admin Dose Admin Epoetin Simba (Procrit Inj) 10,000 units Sa@0800 IV 09/20/16 08:00 09/20/16 23:59 Heparin Sodium (Porcine) (Heparin Sq 5000 Unit/0.5ml) 5,000 unit Q8 SQ 09/19/16 22:00 10/19/16 21:59 09/20/16 05:27 5,000 UNIT Acetaminophen (Tylenol Tab) 650 mg Q4H PRN PO 09/19/16 12:15 10/19/16 12:14 09/20/16 05:31 650 MG Ondansetron HCl (Zofran Inj) 4 mg Q6H PRN IV 09/19/16 12:15 10/19/16 12:14 Polyethylene (Miralax Powder Packet) 17 gm DAILY PRN PO 09/19/16 12:15 10/19/16 12:14 Allopurinol (Zyloprim Tab) 100 mg DAILY PO 09/20/16 09:00 10/20/16 08:59 Atorvastatin Calcium (Lipitor Tab) 40 mg DAILY PO 09/20/16 09:00 10/20/16 08:59 Vitamin B Complex/ Vit C/Folic Acid (Nephrocaps) 1 cap QAM PO 09/20/16 09:00 10/20/16 08:59 Calcium Acetate (Phoslo Cap) 667 mg ACHS PO 09/19/16 16:15 10/19/16 16:14 09/19/16 21:48 667 MG Cholecalciferol (Vitamin D Tab) 1,000 inter.unit DAILY PO 09/20/16 09:00 10/20/16 08:59 Famotidine (Pepcid Tab) 20 mg DAILY PO 09/20/16 09:00 10/20/16 08:59 Salmeterol Xinafoate/ Fluticasone (Advair Diskus 500/50 Inh) 1 puff BID INH 09/19/16 21:00 10/19/16 20:59 09/19/16 21:49 1 PUFF Insulin Aspart (novoLOG ASPART) SLIDING SCALE ACHS SC 09/19/16 16:15 10/19/16 16:14 Albuterol/ Ipratropium (Duoneb) 3 ml Q6R INH 09/19/16 15:00 10/19/16 14:59 09/20/16 06:50 3 ML Ammonium Lactate (Lac-Hydrin) 1 appl BID EXT 09/19/16 21:00 10/19/16 20:59 09/19/16 21:49 1 APPL Metoprolol Succinate (Toprol Xl Tab) 150 mg DAILY PO 09/20/16 09:00 10/20/16 08:59 Miconazole Nitrate (Desenex Powder) 1 appln UD PRN EXT 09/19/16 12:15 10/19/16 12:14 09/19/16 21:50 1 APPLN Multivitamins/ Minerals (Multivitamin W/ Minerals Tab) 1 tab DAILY PO 09/20/16 09:00 10/20/16 08:59 Pantoprazole Sodium (Protonix Tab) 40 mg DAILY PO 09/20/16 09:00 10/20/16 08:59 Prednisone (PredniSONE TAB) 15 mg DAILY PO 09/20/16 09:00 10/20/16 08:59 Pregabalin (Lyrica Cap) 75 mg BID PO 09/19/16 21:00 10/19/16 20:59 09/19/16 21:00 75 MG Pyridoxine HCl (Vitamin B-6 Tab) 200 mg DAILY PO 09/20/16 09:00 10/20/16 08:59 Tiotropium [place] (Spiriva Handihaler Inhaler) 1 puff DAILY INH 09/20/16 09:00 10/20/16 08:59 Doxycycline Hyclate (Vibramycin Cap) 100 mg DAILY@1800 PO 09/19/16 18:00 09/20/16 18:01 Hydromorphone HCl (Dilaudid Inj) 0.5 mg Q3H PRN IV 09/19/16 13:15 10/03/16 13:14 Glucose (Glucose 40% Gel) 15-30 GRAMS 15 GRAMS... UD PRN PO 09/19/16 15:00 10/19/16 14:59 Glucose (Glucose Chew Tab) 4-8 Tablets 4 Tabl... UD PRN PO 09/19/16 15:00 10/19/16 14:59 Dextrose (Dextrose 50% 50ML Syringe) 25-50ML OF 50% DW IV FOR... UD PRN IV 09/19/16 15:00 10/19/16 14:59 09/19/16 16:31 25 ML Glucagon (Glucagon Inj) 1 mg UD PRN SQ 09/19/16 15:00 10/19/16 14:59 Miscellaneous Information (Consult Glycemic Management Pharmacy) 1 ea UD PRN N/A 09/19/16 15:30 10/19/16 15:29 Ceftriaxone Sodium 1 gm/ Dextrose 50 ml @ 100 mls/hr Q24H IV 09/19/16 20:00 09/26/16 19:59 09/19/16 19:46 100 MLS/HR Azithromycin 250 mg/Dextrose 252.5 ml @ 125 mls/hr Q24H IV 09/20/16 18:00 09/23/16 20:02 Insulin Glargine (Lantus Vial) 60 units BID SC 09/20/16 09:00 10/20/16 08:59 Impression (1) ESRD on hemodialysis (2) Frequent falls (3) Obesity hypoventilation syndrome (4) Metabolic alkalosis (5) Anemia Hemalatha is a 60-year-old female with morbid obesity, obesity hypoventilation syndrome, recurrent hypercapnia, advanced chronic kidney disease requiring [employer], right heart failure. She has had multiple hospitalizations for volume overload and electrolyte abnormalities associated with diuretics. Hemalatha started hemodialysis during hospitalization in June 2016. Permcath was placed 07/25. She completed her first dialysis treatment on . She is on hemodialysis at [facility] TTS schedule. She currently dialyzes via a TDC. AVF created 08/19/[address] Thapa. She was admitted today with recurrent fall at home over last few days and weeks. Had HD yesterday. Recommendations --she is scheduled for hemodialysis today as her regular schedule, will do the dialysis with 2 K bath, ultra filtration as tolerated to reach her estimated dry weigh. -- continue on Nephrocaps and phosphate binder -- will give SAMARA 19915 unit IV with HD -- avoid IV fluid, dose medications for GFR less than 15 and follow low- potassium diet --Will need physical therapy for strengthening of lower extremity This chart was completed utilizing [employer] Speech and voice recognition software. Grammatical errors, random word insertions, pronoun errors and incomplete sentences are occasional consequences of this system. Any questions or concerns about the content, text or information contained within the body of this dictation should be addressed directly to the physician for clarification.
--- NOTE | 2016-09-20 08:54 | Progress Note ---
Subjective Date of Service: Sep 20, 2016. 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, review of inpatient medication list No acute event overnight, continue BiPAP, was able to take pills by mouth's this morning, Awake and alert and conversational, no complaining Problem List Medical Problems: (1) Acute respiratory failure with hypoxia and hypercarbia Status: Acute (2) Altered mental status Status: Acute (3) Anasarca Status: Acute (4) Anasarca Status: Acute (5) Bilateral cellulitis of lower leg Status: Acute (6) Bilateral lower leg cellulitis Status: Acute (7) Change in mental status Status: Acute (8) Chronic renal failure Status: Acute (9) CO2 retention Status: Acute (10) Contusion of multiple sites Status: Acute (11) Dehydration Status: Acute (12) Dyspnea on exertion Status: Acute (13) Fall Status: Acute (14) Fall Status: Acute (15) Fever Status: Acute (16) Fever Status: Acute (17) Generalized weakness Status: Acute (18) Hypercarbia Status: Acute (19) Hyperkalemia Status: Acute (20) Hypokalemia Status: Acute (21) Hypoventilation Status: Acute (22) Hypoxemia Status: Acute (23) Hypoxia Status: Acute (24) Lumbar strain Status: Acute (25) Metabolic acidosis Status: Acute (26) Nail avulsion of toe Status: Acute (27) Obesity Status: Acute (28) Respiratory failure Status: Acute (29) Weakness Status: Acute (30) Weight gain Status: Acute (31) Wrist pain Status: Acute Review of Systems Constitutional: + fever (mild temperature is 37.7) Eyes: No see HPI, No worsening of vision, No eye pain, No redness, No discharge , No diplopia, No problem reported ENT: No see HPI, No hearing loss, No unusual epistaxis, No nasal symptoms, No sore throat, No tinnitus, No dental problems, No trouble swallowing, No problem reported Respiratory: + shortness of breath (on BiPAP) Cardiac: No see HPI, No chest pain, No orthopnea, No PND, No edema, No claudication, No palpitations, No problem reported Abdomen: No see HPI, No pain, No nausea, No vomiting, No diarrhea, No constipation, No GI bleeding, No problem reported Musculoskeletal: + swelling (is chronic in lower extremities) Neurologic: No see HPI, No memory loss, No paralysis, No weakness, No numbness/ tingling, No vertigo, No balance problems, No problem reported Skin: + rash (abimael lower exts, mild warm, is not new) Objective Vital Signs Date Time Temp Pulse Resp B/P (MAP) Pulse Ox O2 Delivery O2 Flow Rate FiO2 09/20/16 07:26 37.7 101 20 115/50 (71) 95 BiPAP 09/20/16 06:52 101 95 30 09/20/16 06:50 101 21 95 BiPAP/CPAP 30 09/20/16 05:12 108 93 09/20/16 04:24 37.7 105 21 94/46 (62) 91 BiPAP 09/20/16 04:00 BiPAP 30 09/20/16 02:32 96 93 30 09/20/16 02:31 96 22 93 BiPAP/CPAP 09/20/16 00:00 BiPAP 30 09/19/16 23:58 37.5 105 20 129/47 (74) 96 BiPAP 30 09/19/16 23:04 97 93 30 09/19/16 20:00 BiPAP 09/19/16 19:27 37.3 101 16 115/56 (75) 100 BiPAP 09/19/16 19:19 108 95 30 09/19/16 19:18 108 16 95 BiPAP/CPAP 30 09/19/16 18:01 95 97 30 09/19/16 16:01 90 95 30 09/19/16 16:00 BiPAP 09/19/16 15:50 36.4 94 18 94/53 (67) 100 BiPAP 09/19/16 14:44 36.6 99 19 124/54 (77) 100 BiPAP 09/19/16 14:20 99 15 131/74 96 09/19/16 13:51 99 15 131/74 96 Nasal Cannula 3.0 09/19/16 13:02 99 09/19/16 12:25 96 BiPAP 30 09/19/16 11:49 99 18 130/60 96 Nasal Cannula 3.0 09/19/16 11:09 98 96 30 09/19/16 10:48 96 22 129/62 96 Nasal Cannula 3.0 09/19/16 09:41 94 7/21/17 09:20 36.7 98 20 129/62 94 Nasal Cannula 3.0 Physical Exam General Appearance: WD/WN, no apparent distress, + obese (on BiPAP machine conversational) Eyes: normal inspection, PERRL, EOMI, sclerae normal ENT: normal ENT inspection, hearing grossly normal, pharynx normal Neck: supple, no adenopathy, thyroid normal, no JVD, no carotid bruits, trachea midline Respiratory/Chest: chest non-tender, normal breath sounds, no respiratory distress, no accessory muscle use, + decreased breath sounds Cardiovascular: regular rate, rhythm, no edema, no gallop, no JVD, no murmur Abdomen: normal bowel sounds, non tender, soft, no organomegaly, no pulsatile mass Extremities: normal range of motion, non-tender, normal inspection, no pedal edema, no calf tenderness, normal capillary refill, pelvis stable 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: 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, no motor/sensory deficits, alert, normal mood/affect, oriented x 3 Skin: normal color, warm/dry, + rash (abimael lower exts, chronic erythma looking , mild warm, is not new) Lymphatic: no adenopathy Laboratory Results Last 24 Hours Test 09/19/16 09:50 09/19/16 13:59 09/19/16 16:25 09/19/16 16:42 White Blood Count 8.73 K/uL Red Blood Count 3.19 M/uL Hemoglobin 9.6 g/dL Hematocrit 32.4 % Mean Corpuscular Volume 101.6 fL Mean Corpuscular Hemoglobin 30.1 pg Mean Corpuscular Hemoglobin Concent 29.6 g/dl Platelet Count 206 K/uL Mean Platelet Volume 9.2 fL Neutrophils (%) (Auto) 71.0 % Lymphocytes (%) (Auto) 13.4 % Monocytes (%) (Auto) 11.5 % Eosinophils (%) (Auto) 2.6 % Basophils (%) (Auto) 0.2 % Neutrophils # (Auto) 6.20 K/uL Lymphocytes # (Auto) 1.17 K/uL Monocytes # (Auto) 1.00 K/uL Eosinophils # (Auto) 0.23 K/uL Basophils # (Auto) 0.02 K/uL RDW Standard Deviation 77.3 fL RDW Coefficient of Variation 21.3 % Immature Granulocyte % (Auto) 1.3 % Immature Granulocyte # (Auto) 0.11 K/uL Nucleated RBC Absolute Count (auto) 0.25 K/uL Nucleated Red Blood Cells % 2.8 % Anisocytosis PRESENT Macrocytosis PRESENT Prothrombin Time 10.5 SECONDS Prothromb Time International Ratio 1.0 Activated Partial Thromboplast Time 24.5 SECONDS Partial Thromboplastin Ratio 0.9 Venous Blood pH 7.21 Venous Blood Partial Pressure CO2 75 mmHg Venous Blood Partial Pressure O2 32 mmHg Venous Blood HCO3 30 mmol/L Venous Blood Oxygen Saturation < 60.0 % Venous Blood Base Excess 0.2 mmol/L Sodium Level 137 mmol/L Potassium Level 4.8 mmol/L Chloride Level 103 mmol/L Carbon Dioxide Level 30 mmol/L Anion Gap 4.0 mmol/L Blood Urea Nitrogen 33 mg/dl Creatinine 5.50 mg/dl Est Creatinine Clear Calc Drug Dose 15.3 ml/min Estimated GFR () 8.9 Estimated GFR (Non- 7.7 BUN/Creatinine Ratio 6.1 Random Glucose 107 mg/dl Calcium Level 8.8 mg/dl Total Bilirubin 0.3 mg/dl Direct Bilirubin < 0.1 mg/dl Aspartate Amino Transf (AST/SGOT) 15 U/L Alanine Aminotransferase (ALT/SGPT) 29 U/L Alkaline Phosphatase 99 U/L Troponin I < 0.015 ng/ml Total Protein 8.2 gm/dl Albumin 2.6 gm/dl Arterial Blood pH 7.26 Arterial Blood Partial Pressure CO2 62 mmHg Arterial Blood Partial Pressure O2 69 mm/Hg Arterial Blood HCO3 27 mmol/L Arterial Blood Oxygen Saturation 89.4 % Arterial Blood Base Excess -0.7 mEq/L Arterial Blood Gas Delivery 30% Oleg Test POS Vitamin B12 Level 616 pg/mL Folate 23.54 ng/mL Bedside Glucose 70 mg/dl 84 mg/dl Test 09/19/16 17:10 09/19/16 19:10 09/19/16 20:10 09/20/16 01:37 Urine Color YELLOW Urine Appearance CLEAR Urine pH 5.0 Urine Specific [place] >= 1.030 Urine Protein TRACE Urine Glucose (UA) NEG Urine Ketones 1+ Urine Occult Blood NEG Urine Nitrite NEG Urine Bilirubin NEG Urine Urobilinogen NEG Urine Leukocyte Esterase TRACE Arterial Blood pH 7.25 Arterial Blood Partial Pressure CO2 62 mmHg Arterial Blood Partial Pressure O2 68 mm/Hg Arterial Blood HCO3 27 mmol/L Arterial Blood Oxygen Saturation 89.0 % Arterial Blood Base Excess -1.3 mEq/L Arterial Blood Gas Delivery 30% Oleg Test POS Bedside Glucose 81 mg/dl 96 mg/dl Test 09/20/16 05:57 09/20/16 06:53 09/20/16 07:37 White Blood Count 8.38 K/uL Red Blood Count 3.11 M/uL Hemoglobin 9.2 g/dL Hematocrit 31.3 % Mean Corpuscular Volume 100.6 fL Mean Corpuscular Hemoglobin 29.6 pg Mean Corpuscular Hemoglobin Concent 29.4 g/dl Platelet Count 203 K/uL Mean Platelet Volume 9.8 fL Neutrophils (%) (Auto) 75.6 % Lymphocytes (%) (Auto) 11.3 % Monocytes (%) (Auto) 9.8 % Eosinophils (%) (Auto) 2.5 % Basophils (%) (Auto) 0.2 % Neutrophils # (Auto) 6.33 K/uL Lymphocytes # (Auto) 0.95 K/uL Monocytes # (Auto) 0.82 K/uL Eosinophils # (Auto) 0.21 K/uL Basophils # (Auto) 0.02 K/uL RDW Standard Deviation 76.2 fL RDW Coefficient of Variation 21.5 % Immature Granulocyte % (Auto) 0.6 % Immature Granulocyte # (Auto) 0.05 K/uL Nucleated RBC Absolute Count (auto) 0.18 K/uL Nucleated Red Blood Cells % 2.2 % Anisocytosis PRESENT Sodium Level 135 mmol/L Potassium Level 4.7 mmol/L Chloride Level 101 mmol/L Carbon Dioxide Level 26 mmol/L Anion Gap 8.0 mmol/L Blood Urea Nitrogen 44 mg/dl Creatinine 6.90 mg/dl Est Creatinine Clear Calc Drug Dose 12.1 ml/min Estimated GFR () 6.8 Estimated GFR (Non- 5.8 BUN/Creatinine Ratio 6.3 Random Glucose 101 mg/dl Estimated Average Glucose 140 mg/dl Hemoglobin A1c 6.5 % Calcium Level 8.3 mg/dl Phosphorus Level 4.2 mg/dl Albumin 2.5 gm/dl Bedside Glucose 92 mg/dl Assessment and Plan 60 yo female admitted on 09/19/2016 with progressively worsening hand jerking and leg weakness with falls h/o COPD, DMII, MIKAYLA, OHS, gout, CKD stage V on HD, HL, HTN, pulmonary nodules, morbid obesity, and chronic hypercapnic respiratory failure Per report , c/o severe right buttocks pain with radiation down leg and tailbone pain, was recently admitted for similar hypercapnic resp failure 1 month ago and went to [facility] and was discharged to home 2 weeks ago. Acute on chronic hypercapnic respiratory failure/obesity hypoventilation syndrome/MIKAYLA/COPD: Stable and improving likely secondary to poor compliance with BiPAP at home Continue BiPAP , check ABG Follow-up pulmonary consultation Continue DuoNebs q6 hrs, Advair, Spiriva, and Prednisone 15 mg daily Possible right lower lobe pneumonia seen on chest x-ray, will check two-view chest x-ray Social with mild temperature 37.7 Continue treat with Rocephin and azithromycin for now as per pulmonary recommendations Frequent falls, likely secondary to deconditioning, weakness, jerkiness secondary to hypercapnia Head CT- Negative for any acute changes, continue PT/OT evaluations Tailbone pain and right-sided sciatica-exacerbated by recent falls. Also with toenail avulsion and abrasion of second toe on the right Continue Lyrica for pain, is requesting Dilaudid when necessary, has order but with caution given respiratory depression, must have BiPAP on if taking this Was on Keflex prior to admission as a prophylaxis Wound care consult CKD stage 5, secondary to diabetic nephropathy/hypertensive sclerosis- requiring HD Thursday. Has a PermCath on the right while left AV fistula is maturing Nephrology consulted, appreciate recommendations , continue current care Hypercalcemia- noted during previous admission: Stable - Serum free light chain ratio is elevated. UIEP was positive for IgG [place] monoclonal protein during outpatient workup - Followed by Dr. Delong, pending further evaluation Cor pulmonale: Stable - Last echo 07/25/15: Hyperdynamic LV systolic function. Mild concentric LV hypertrophy. LV diastolic dysfunction. Mild RV dilatation and systolic dysfunction. Mild tricuspid regurgitation. Mildly elevated RV systolic pressure. Normal central venous pressure. Ejection Fraction = >70 % - Daily weights, I's and O's Chronic venous insufficiency: Elevate legs, TEDs HTN- CONTROLLED: Dyslipidemia: Lipitor 40 mg daily DM- HbA1c 6.3% on 05/20/16: Gout- ASYMPTOMATIC: Allopurinol 100 mg daily Peripheral neuropathy/chronic pain: - Pregabalin 75 mg BID Chronic suppressive therapy- follows w/ ID: Continue Doxycycline 100 mg daily The above condition is stable continue current care DVT Prophylaxis: Heparin Code Status: LEVEL I, FULL Disposition-PT/OT evaluations, probably needs rehabilitation Discussed with RN and patient answered all the questions, Continued [facility] stay due to: multiple IV medications needed Discharge planning: home, uncertain
[2016-09-20] MEDS ORDERED: INSULIN GLARGINE SC SCH ×2 (09:00→21:00)
[2016-09-20 09:02] LABS: ARTERIAL BLD GAS O2 SATURATION 90.6 % (90-95); ARTERIAL BLOOD GAS BASE EXCESS -2.9 mEq/L (-9-1.8); ARTERIAL BLOOD GAS HCO3 24 mmol/L (19-24); ARTERIAL BLOOD GAS PO2 74 mm/Hg (80-95); ARTERIAL BLOOD GAS pH 7.27 (7.35-7.45)
[2016-09-20 09:05] LABS: ALLEN TEST POS (POS); O2 ADMINISTRATION 30%
--- NOTE | 2016-09-20 09:50 | Pulmonology Progress Note ---
Pulmonary Progress Note Date of Service Sep 20, 2016. Attending Dr. Morton Subjective Patient seen and examined today. She tolerated BiPAP overnight. She is more alert and conversational. She is complaining of headache and given dilaudid. Objective VITAL SIGNS - reviewed. VS this morning T 37.7, BP 94/46-115/50, P 96-101, RR 20 -22, SaO2 91-95% on BiPAP 14/8, FiO2 30%. GENERAL -Morbidly obese female lying in bed on BIPAP. More alert today and conversive. HEAD - NC/AT. Topete facies. EYES - Sclera anicteric. conjunctiva pink and moist with no injection noted. EARS - No deformities of external structures noted on gross examination bilaterally. NOSE - Midline and without cyanosis. NECK - Neck with FROM. supple, NT, thick short neck MOUTH-No oral thrush noted, Mallampati IV LUNGS - Chest wall symmetric without accessory muscle use, intercostals retractions, or central cyanosis. Normal vesicular breath sounds CTA B/L. No wheezes, rales, or rhonchi appreciated. Decreased breath sound bilaterally at bases. Right PermCath in place. HEART - RRR with S1/S2. No murmur, rubs, or gallops appreciated. ABDOMEN - Obese, BS normoactive, No tenderness. EXTREMITIES - No clubbing or peripheral cyanosis. Bilateral pitting edema +2 NEUROLOGIC - Cranial nerves II through XII grossly intact. Sensory intact PSYCH - A&Ox 3, No suicidal ideations. SKIN - Bilateral lower extremity edema, Chronic venous changes. Dry. ABG this morning pH 7.27, pCO2 54, pO2, HCO2 74, 90.6% on BiPAP. Labs reviewed. Corrected AG for albumin is 11.75. Urine Cx is pending. She is currently on Azithromycin q24h, Ceftriaxone 1 gm q24, Doxycyline 100 mg PO daily, Spriva 1 puff daily, Advair 500/50 BID and Duoneb q6h prn from a respiratory standpoint. Assessment & Plan Acute on chronic hypoxic and hyperbaric respiratory failure Obesity hypoventilation syndrome COPD MIKAYLA ESRD on HD Diastolic dysfunction Patient is improving with BiPAP. Continue with BIPAP on these settings with pressure of 14/8, FiO2 of 30%. Her ABG is still showing acidosis. This is most likely a respiratory acidosis with concomitant non anion gap metabolic acidosis. Use nasal cannula titrate to FiO2 to 88-92%. Avoid sedatives and narcotic if at all possible, as they decrease respiratory drive and worsen hypercarpia. Continue with antibiotics, nebulizers , Spiriva and Advair. Optimize cardiac medications for better diastolic dysfunction and HD by nephrology for fluid removal. She is scheduled for HD today. Continue with heparin SC for DVT ppx Data Medications: Current Inpatient Medications Medications (Trade) Dose Ordered Sig/Duyen Route Start Time Stop Time Status Last Admin Dose Admin Epoetin Simba (Procrit Inj) 10,000 units Sa@0800 IV 09/20/16 08:00 09/20/16 23:59 Heparin Sodium (Porcine) (Heparin Sq 5000 Unit/0.5ml) 5,000 unit Q8 SQ 09/19/16 22:00 10/19/16 21:59 09/20/16 05:27 5,000 UNIT Acetaminophen (Tylenol Tab) 650 mg Q4H PRN PO 09/19/16 12:15 10/19/16 12:14 09/20/16 05:31 650 MG Ondansetron HCl (Zofran Inj) 4 mg Q6H PRN IV 09/19/16 12:15 10/19/16 12:14 Polyethylene (Miralax Powder Packet) 17 gm DAILY PRN PO 09/19/16 12:15 10/19/16 12:14 Allopurinol (Zyloprim Tab) 100 mg DAILY PO 09/20/16 09:00 10/20/16 08:59 09/20/16 08:25 100 MG Atorvastatin Calcium (Lipitor Tab) 40 mg DAILY PO 09/20/16 09:00 10/20/16 08:59 09/20/16 08:25 40 MG Vitamin B Complex/ Vit C/Folic Acid (Nephrocaps) 1 cap QAM PO 09/20/16 09:00 10/20/16 08:59 09/20/16 08:25 1 CAP Calcium Acetate (Phoslo Cap) 667 mg ACHS PO 09/19/16 16:15 10/19/16 16:14 09/20/16 08:20 667 MG Cholecalciferol (Vitamin D Tab) 1,000 inter.unit DAILY PO 09/20/16 09:00 10/20/16 08:59 09/20/16 08:23 1,000 INTER.UNIT Famotidine (Pepcid Tab) 20 mg DAILY PO 09/20/16 09:00 10/20/16 08:59 09/20/16 08:24 20 MG Salmeterol Xinafoate/ Fluticasone (Advair Diskus 500/50 Inh) 1 puff BID INH 09/19/16 21:00 10/19/16 20:59 09/20/16 08:20 1 PUFF Insulin Aspart (novoLOG ASPART) SLIDING SCALE ACHS SC 09/19/16 16:15 10/19/16 16:14 Albuterol/ Ipratropium (Duoneb) 3 ml Q6R INH 09/19/16 15:00 10/19/16 14:59 09/20/16 06:50 3 ML Ammonium Lactate (Lac-Hydrin) 1 appl BID EXT 09/19/16 21:00 10/19/16 20:59 09/20/16 08:32 1 APPL Metoprolol Succinate (Toprol Xl Tab) 150 mg DAILY PO 09/20/16 09:00 10/20/16 08:59 09/20/16 08:24 150 MG Miconazole Nitrate (Desenex Powder) 1 appln UD PRN EXT 09/19/16 12:15 10/19/16 12:14 09/19/16 21:50 1 APPLN Multivitamins/ Minerals (Multivitamin W/ Minerals Tab) 1 tab DAILY PO 09/20/16 09:00 10/20/16 08:59 09/20/16 08:25 1 TAB Pantoprazole Sodium (Protonix Tab) 40 mg DAILY PO 09/20/16 09:00 10/20/16 08:59 09/20/16 08:25 40 MG Prednisone (PredniSONE TAB) 15 mg DAILY PO 09/20/16 09:00 10/20/16 08:59 09/20/16 08:22 15 MG Pregabalin (Lyrica Cap) 75 mg BID PO 09/19/16 21:00 10/19/16 20:59 09/20/16 08:31 75 MG Pyridoxine HCl (Vitamin B-6 Tab) 200 mg DAILY PO 09/20/16 09:00 10/20/16 08:59 09/20/16 08:25 200 MG Tiotropium [place] (Spiriva Handihaler Inhaler) 1 puff DAILY INH 09/20/16 09:00 10/20/16 08:59 09/20/16 08:21 1 PUFF Doxycycline Hyclate (Vibramycin Cap) 100 mg DAILY@1800 PO 09/19/16 18:00 09/20/16 18:01 Hydromorphone HCl (Dilaudid Inj) 0.5 mg Q3H PRN IV 09/19/16 13:15 10/03/16 13:14 09/20/16 08:19 0.5 MG Glucose (Glucose 40% Gel) 15-30 GRAMS 15 GRAMS... UD PRN PO 09/19/16 15:00 10/19/16 14:59 Glucose (Glucose Chew Tab) 4-8 Tablets 4 Tabl... UD PRN PO 09/19/16 15:00 10/19/16 14:59 Dextrose (Dextrose 50% 50ML Syringe) 25-50ML OF 50% DW IV FOR... UD PRN IV 09/19/16 15:00 10/19/16 14:59 09/19/16 16:31 25 ML Glucagon (Glucagon Inj) 1 mg UD PRN SQ 09/19/16 15:00 10/19/16 14:59 Miscellaneous Information (Consult Glycemic Management Pharmacy) 1 ea UD PRN N/A 09/19/16 15:30 10/19/16 15:29 Ceftriaxone Sodium 1 gm/ Dextrose 50 ml @ 100 mls/hr Q24H IV 09/19/16 20:00 09/26/16 19:59 09/19/16 19:46 100 MLS/HR Azithromycin 250 mg/Dextrose 252.5 ml @ 125 mls/hr Q24H IV 09/20/16 18:00 09/23/16 20:02 Insulin Glargine (Lantus Vial) 60 units BID SC 09/20/16 09:00 10/20/16 08:59 09/20/16 08:31 60 UNITS Vital Signs: Date Time Temp Pulse Resp B/P (MAP) Pulse Ox O2 Delivery O2 Flow Rate FiO2 09/20/16 08:00 95 BiPAP 30 09/20/16 07:26 37.7 101 20 115/50 (71) 95 BiPAP 09/20/16 06:52 101 95 30 09/20/16 06:50 101 21 95 BiPAP/CPAP 30 09/20/16 05:12 108 93 30 09/20/16 04:24 37.7 105 21 94/46 (62) 91 BiPAP 30 09/20/16 04:00 BiPAP 30 09/20/16 02:32 96 93 30 09/20/16 02:31 96 22 93 BiPAP/CPAP 30 09/20/16 00:00 BiPAP 30 09/19/16 23:58 37.5 105 20 129/47 (74) 96 BiPAP 30 09/19/16 23:04 97 93 30 09/19/16 20:00 BiPAP 30 09/19/16 19:27 37.3 101 16 115/56 (75) 100 BiPAP 09/19/16 19:19 108 95 30 09/19/16 19:18 108 16 95 BiPAP/CPAP 30 09/19/16 18:01 95 97 30 09/19/16 16:01 90 95 30 09/19/16 16:00 BiPAP 09/19/16 15:50 36.4 94 18 94/53 (67) 100 BiPAP 09/19/16 14:44 36.6 99 19 124/54 (77) 100 BiPAP 09/19/16 14:20 99 15 131/74 96 09/19/16 13:51 99 15 131/74 96 Nasal Cannula 3.0 09/19/16 13:02 99 09/19/16 12:25 96 BiPAP 30 09/19/16 11:49 99 18 130/60 96 Nasal Cannula 3.0 09/19/16 11:09 98 96 30 09/19/16 10:48 96 22 129/62 96 Nasal Cannula 3.0 Laboratory Results: Last 24 Hours Test 09/19/16 09:50 09/19/16 13:59 09/19/16 16:25 09/19/16 16:42 White Blood Count 8.73 K/uL Red Blood Count 3.19 M/uL Hemoglobin 9.6 g/dL Hematocrit 32.4 % Mean Corpuscular Volume 101.6 fL Mean Corpuscular Hemoglobin 30.1 pg Mean Corpuscular Hemoglobin Concent 29.6 g/dl Platelet Count 206 K/uL Mean Platelet Volume 9.2 fL Neutrophils (%) (Auto) 71.0 % Lymphocytes (%) (Auto) 13.4 % Monocytes (%) (Auto) 11.5 % Eosinophils (%) (Auto) 2.6 % Basophils (%) (Auto) 0.2 % Neutrophils # (Auto) 6.20 K/uL Lymphocytes # (Auto) 1.17 K/uL Monocytes # (Auto) 1.00 K/uL Eosinophils # (Auto) 0.23 K/uL Basophils # (Auto) 0.02 K/uL RDW Standard Deviation 77.3 fL RDW Coefficient of Variation 21.3 % Immature Granulocyte % (Auto) 1.3 % Immature Granulocyte # (Auto) 0.11 K/uL Nucleated RBC Absolute Count (auto) 0.25 K/uL Nucleated Red Blood Cells % 2.8 % Anisocytosis PRESENT Macrocytosis PRESENT Prothrombin Time 10.5 SECONDS Prothromb Time International Ratio 1.0 Activated Partial Thromboplast Time 24.5 SECONDS Partial Thromboplastin Ratio 0.9 Venous Blood pH 7.21 Venous Blood Partial Pressure CO2 75 mmHg Venous Blood Partial Pressure O2 32 mmHg Venous Blood HCO3 30 mmol/L Venous Blood Oxygen Saturation < 60.0 % Venous Blood Base Excess 0.2 mmol/L Sodium Level 137 mmol/L Potassium Level 4.8 mmol/L Chloride Level 103 mmol/L Carbon Dioxide Level 30 mmol/L Anion Gap 4.0 mmol/L Blood Urea Nitrogen 33 mg/dl Creatinine 5.50 mg/dl Est Creatinine Clear Calc Drug Dose 15.3 ml/min Estimated GFR () 8.9 Estimated GFR (Non- 7.7 BUN/Creatinine Ratio 6.1 Random Glucose 107 mg/dl Calcium Level 8.8 mg/dl Total Bilirubin 0.3 mg/dl Direct Bilirubin < 0.1 mg/dl Aspartate Amino Transf (AST/SGOT) 15 U/L Alanine Aminotransferase (ALT/SGPT) 29 U/L Alkaline Phosphatase 99 U/L Troponin I < 0.015 ng/ml Total Protein 8.2 gm/dl Albumin 2.6 gm/dl Arterial Blood pH 7.26 Arterial Blood Partial Pressure CO2 62 mmHg Arterial Blood Partial Pressure O2 69 mm/Hg Arterial Blood HCO3 27 mmol/L Arterial Blood Oxygen Saturation 89.4 % Arterial Blood Base Excess -0.7 mEq/L Arterial Blood Gas Delivery 30% Oleg Test POS Vitamin B12 Level 616 pg/mL Folate 23.54 ng/mL Bedside Glucose 70 mg/dl 84 mg/dl Test 09/19/16 17:10 09/19/16 19:10 09/19/16 20:10 09/20/16 01:37 Urine Color YELLOW Urine Appearance CLEAR Urine pH 5.0 Urine Specific [place] >= 1.030 Urine Protein TRACE Urine Glucose (UA) NEG Urine Ketones 1+ Urine Occult Blood NEG Urine Nitrite NEG Urine Bilirubin NEG Urine Urobilinogen NEG Urine Leukocyte Esterase TRACE Arterial Blood pH 7.25 Arterial Blood Partial Pressure CO2 62 mmHg Arterial Blood Partial Pressure O2 68 mm/Hg Arterial Blood HCO3 27 mmol/L Arterial Blood Oxygen Saturation 89.0 % Arterial Blood Base Excess -1.3 mEq/L Arterial Blood Gas Delivery 30% Oleg Test POS Bedside Glucose 81 mg/dl 96 mg/dl Test 09/20/16 05:57 09/20/16 06:53 09/20/16 08:48 White Blood Count 8.38 K/uL Red Blood Count 3.11 M/uL Hemoglobin 9.2 g/dL Hematocrit 31.3 % Mean Corpuscular Volume 100.6 fL Mean Corpuscular Hemoglobin 29.6 pg Mean Corpuscular Hemoglobin Concent 29.4 g/dl Platelet Count 203 K/uL Mean Platelet Volume 9.8 fL Neutrophils (%) (Auto) 75.6 % Lymphocytes (%) (Auto) 11.3 % Monocytes (%) (Auto) 9.8 % Eosinophils (%) (Auto) 2.5 % Basophils (%) (Auto) 0.2 % Neutrophils # (Auto) 6.33 K/uL Lymphocytes # (Auto) 0.95 K/uL Monocytes # (Auto) 0.82 K/uL Eosinophils # (Auto) 0.21 K/uL Basophils # (Auto) 0.02 K/uL RDW Standard Deviation 76.2 fL RDW Coefficient of Variation 21.5 % Immature Granulocyte % (Auto) 0.6 % Immature Granulocyte # (Auto) 0.05 K/uL Nucleated RBC Absolute Count (auto) 0.18 K/uL Nucleated Red Blood Cells % 2.2 % Anisocytosis PRESENT Sodium Level 135 mmol/L Potassium Level 4.7 mmol/L Chloride Level 101 mmol/L Carbon Dioxide Level 26 mmol/L Anion Gap 8.0 mmol/L Blood Urea Nitrogen 44 mg/dl Creatinine 6.90 mg/dl Est Creatinine Clear Calc Drug Dose 12.1 ml/min Estimated GFR () 6.8 Estimated GFR (Non- 5.8 BUN/Creatinine Ratio 6.3 Random Glucose 101 mg/dl Estimated Average Glucose 140 mg/dl Hemoglobin A1c 6.5 % Calcium Level 8.3 mg/dl Phosphorus Level 4.2 mg/dl Albumin 2.5 gm/dl Bedside Glucose 92 mg/dl Arterial Blood pH 7.27 Arterial Blood Partial Pressure CO2 54 mmHg Arterial Blood Partial Pressure O2 74 mm/Hg Arterial Blood HCO3 24 mmol/L Arterial Blood Oxygen Saturation 90.6 % Arterial Blood Base Excess -2.9 mEq/L Arterial Blood Gas Delivery 30% Oleg Test POS
--- NOTE | 2016-09-20 10:25 | History & Physical Bridge Note ---
H&P Re-Evaluation Bridge Note: I have examined the patient, reviewed the History & Physical and in the interval since the performance of the History & Physical I have noted the following changes of clinical significance: I just spoke with patient's who informed me that patient has been on chronic steroids for over a year. During this acute illness I feel that it would be appropriate to treat her for relative adrenal insufficiency. Will increase prednisone to 40 mg daily with a slow taper.
--- NOTE | 2016-09-20 11:40 | DIAGNOSTIC IMAGING REPORT ---
CHEST 2 VIEWS ROUTINE CLINICAL HISTORY: Follow-up pneumonia. COMPARISON STUDY: Chest radiograph September 19, 2016. FINDINGS: A right internal jugular dual-lumen catheter remains in place. There is no pneumothorax or pleural effusion. There is no evidence of pulmonary edema. Right middle lobe and lingular opacities are present. There is no lobar consolidation. IMPRESSION: Right middle lobe and lingular opacities. The appearance favors atelectasis although a mild infectious process could appear similar. Electronically signed by: Eliceo Rubio M.D. 09/20/2016 11:39 AM Dictated Date/Time: 09/20/2016 11:36 AM
--- NOTE | 2016-09-20 12:01 | Pharmacy Progress Note ---
Glycemic Control Progress Note Date of Service Sep 20, 2016. Scope Glycemic Pharmacist consulted for glycemic control to write orders per formerly [facility] inpatient glycemic control protocol. Objective Accuchecks BSG (last 24hrs): Test 09/19/16 16:25 09/19/16 16:42 09/19/16 20:10 09/20/16 01:37 Bedside Glucose 70 mg/dl (70-90) 84 mg/dl (70-90) 81 mg/dl (70-90) 96 mg/dl (70-90) Test 09/20/16 05:57 09/20/16 06:53 Random Glucose 101 mg/dl (70-99) Bedside Glucose 92 mg/dl (70-90) HbA1c: Test 09/20/16 05:57 Hemoglobin A1c 6.5 % (4.5-5.6) H Recent Pertinent Medications Outpatient Anti-diabetic Regimen: * Toujeo 70 units TID plus Novolog 50 units with breakfast/ 50 units with lunch / 90 units with dinner/ 40 units with evening snack if has one * A1c = 6.3 % 05/20/16 Risk Factors for Insulin Resistance: * Steroids: prednisone 15 mg PO daily * Infection: chronic cellulitis on PO doxycycline; current respiratory infection on Rocephin and Zithromax * Diet: type 2 diabetic diet but not eating much as she is currently on BiPaP Outpatient Anti-Diabetic Meds See above Assessment & Plan ASSESSMENT: * ADA & AACE recommend a goal blood sugar range 140-180 mg/dl for the majority of critically ill & non-critically ill patients. However, more stringent targets may be selected in individual cases. Will utilize more stringent goal of 110-140mg/dl based on patient age & comorbidities. Additionally, tighter glycemic control is warranted to facilitate wound/infection healing. * Ms Gaytan is a 60 y/o F well known to the glycemic service. She is admitted today with frequent falls and hypoxia. She has a PMH significant to ESRD on dialysis and CHF. While hospitalized, Ms Gaytan requires twice daily Lantus dosing. During the last hospitalization, this was maximized at Lantus 80 units twice daily. This will be restarted after she is off of BiPAP. * As the patient is still on BiPAP and cannot eat until stable, a lower dose of Lantus 60 units twice daily will be utilized. Her fasting this morning was 96 mg /dL which is appropriate for her. She received a total of 60 units yesterday with blood sugars ranging from 70-107 mg/dL. Today the patient's prednisone was increased from 15 mg daily to 40 mg daily with an extra 20 mg today. I added a sliding scale of Lantus in the evening as I am uncertain how this will affect the patient's blood sugars and she is currently not eating while on BiPaP. * Her correctional insulin requirements vary. It was noticed that Ms Gaytan requires more carbohydrate coverage than correction factor. Therefore a tighter carbohydrate ratio is important. I will restart the looser carbohydrate ratio until I determine if she needs tighter coverage. This is currently not being utilized as the patient is not eating. PLAN FOR INPATIENT GLYCEMIC CONTROL: * Basal insulin with LANTUS 60-70 units SQ BID (60 units if blood sugar 180 mg/ dL or less; 70 units if blood sugar greater than 180 mg/dL) * Correctional Insulin with NOVOLOG per scale ACHS * Goal Range: Low 110 mg/dL - High 140 mg/dL * Correction Factor: 6 mg/dL/unit * Nutritional / Prandial insulin per carb ratio of 1 unit per 2 grams CHO consumed * Please note that the plan above was derived based on current level of insulin resistance and hospital stress. These recommendations are appropriate for inpatient admission only. Plan of care upon discharge will need to be reassessed to avoid potential outpatient hypo/hyperglycemia. Thank you.
[2016-09-20] MEDS ORDERED: AZITHROMYCIN IV 250 MG in DEXTROSE 5% 250ML 250 ML IV SCH (18:00)
[2016-09-20] MEDS: DOXYCYCLINE HYCLATE 100 MG CAP PO SCH (18:04)
[2016-09-20] MEDS: CEFTRIAXONE SOD INJ 1 GM in DEXTROSE 5% ADD-VANTAGE 50ML 50 ML IV SCH (20:16)
[2016-09-21] VITALS (17 sets, daily range): BP systolic 87–126; BP diastolic 44–71; PULSE 78–115; TEMP 36.5–36.8; O2SAT 93–98
[2016-09-21] MEDS: ACETAMINOPHEN 325 MG TAB PO PRN (02:01)
[2016-09-21] MEDS: ALBUT/IPRATROP 3MG/0.5MG NEB 3 ML VIAL INH SCH ×4 (02:07→19:22)
[2016-09-21] MEDS: HEPARIN SOD 5000 UNIT/0.5 ML CARP SQ SCH ×3 (05:36→20:13)
[2016-09-21] MEDS: CALCIUM ACETATE 667MG GELCAP PO SCH ×4 (05:37→19:53)
[2016-09-21 07:38] LABS: BUN/CREATININE RATIO 5.5 (10-20); CALCIUM 8.5 mg/dl (8.5-10.1); MAGNESIUM 2.2 mg/dl (1.8-2.4); PHOSPHORUS 3.1 mg/dl (2.5-4.9); POTASSIUM 4.2 mmol/L (3.5-5.1)
[2016-09-21] MEDS: INSULIN ASPART 100 UNITS/ML 3 ML PEN SC SCH ×4 (08:23→20:12)
[2016-09-21] MEDS: INSULIN GLARGINE SC SCH ×2 (08:24→20:11)
[2016-09-21] MEDS: METOPROLOL SUCC 50MG EXT REL TAB PO SCH (08:29)
[2016-09-21] MEDS: PANTOprazole SOD 40 MG TAB PO SCH (08:29)
[2016-09-21] MEDS: NEPHROCAPS PO SCH (08:29)
[2016-09-21] MEDS: CEROVITE ADV FORMULA TAB PO SCH (08:29)
[2016-09-21] MEDS: PYRIDOXINE HCL 50 MG TAB PO SCH (08:30)
[2016-09-21] MEDS: ATORVASTATIN 40 MG TAB PO SCH (08:31)
[2016-09-21] MEDS: CHOLECALCIFEROL 1000 INTER.UNIT TAB PO SCH (08:31)
[2016-09-21] MEDS: FLUTICASONE/SALMETEROL (ADVAIR) 500/50 INH 14 PUFF INH SCH ×2 (08:31→19:52)
[2016-09-21] MEDS: ALLOPURINOL 100 MG TAB PO SCH (08:31)
[2016-09-21] MEDS: PREGABALIN 75 MG CAP PO SCH ×2 (08:31→19:51)
[2016-09-21] MEDS: FAMOTIDINE 20 MG TAB PO SCH (08:31)
[2016-09-21] MEDS: TIOTROPIUM BROMIDE 5 PUFF/90 MCG INH INH SCH (08:33)
[2016-09-21] MEDS: AMMONIUM LACTATE 12% LOTION 225 GM BTL EXT SCH ×2 (08:42→19:52)
--- NOTE | 2016-09-21 09:21 | Pharmacy Progress Note ---
Glycemic Control Progress Note Date of Service Sep 21, 2016. Scope Glycemic Pharmacist consulted for glycemic control to write orders per [facility] inpatient glycemic control protocol. Objective Accuchecks BSG (last 24hrs): Test 09/20/16 11:07 09/20/16 16:05 09/20/16 20:15 09/21/16 05:44 Bedside Glucose 115 mg/dl (70-90) 163 mg/dl (70-90) 332 mg/dl (70-90) Random Glucose 217 mg/dl (70-99) Test 09/21/16 06:45 Bedside Glucose 215 mg/dl (70-90) HbA1c: Test 09/20/16 05:57 Hemoglobin A1c 6.5 % (4.5-5.6) H Recent Pertinent Medications Outpatient Anti-diabetic Regimen: * Toujeo 70 units TID plus Novolog 50 units with breakfast/ 50 units with lunch / 90 units with dinner/ 40 units with evening snack if has one * A1c = 6.3 % 05/20/16 Risk Factors for Insulin Resistance: * Steroids: prednisone 40 mg PO daily * Infection: current respiratory infection on Rocephin and Zithromax * Diet: type 2 diabetic diet Outpatient Anti-Diabetic Meds See above Assessment & Plan ASSESSMENT: * ADA & AACE recommend a goal blood sugar range 140-180 mg/dl for the majority of critically ill & non-critically ill patients. However, more stringent targets may be selected in individual cases. Will utilize more stringent goal of 110-140mg/dl based on patient age & comorbidities. Additionally, tighter glycemic control is warranted to facilitate wound/infection healing. * Ms Gaytan is a 60 y/o F well known to the glycemic service. She is admitted with frequent falls and hypoxia. She has a PMH significant to ESRD on dialysis and CHF. While hospitalized, Ms Gaytan requires twice daily Lantus dosing. During the last hospitalization, this was maximized at Lantus 80 units twice daily. This will be restarted now that she is on nasal cannula and tolerating oral diet. * As the prednisone dose was increased from prednisone 15 mg daily to 40 mg daily, a tighter carbohydrate ratio was initiated. Ms Gaytan requires a tighter carbohydrate ratio in general so it was tightened from 2 to 1.5. * Ms Gaytan's fasting this morning was 215 mg/dL which is elevated since she started eating. She received a total of 185 units yesterday with blood sugars ranging from 92-332 mg/dL. Appropriate adjustments were made to basal/bolus insulin due to an increase in diet. * In general, Ms Gaytan requires about 220-250 units of insulin per day. I expect current changes to produce that effect. PLAN FOR INPATIENT GLYCEMIC CONTROL: * Basal insulin with LANTUS 80 units SQ BID * Correctional Insulin with NOVOLOG per scale ACHS * Goal Range: Low 110 mg/dL - High 140 mg/dL * Correction Factor: 6 mg/dL/unit * Nutritional / Prandial insulin per carb ratio of 1 unit per 1.5 grams CHO consumed Recommendations for Discharge * As Ms Gaytan is a dialysis patient, I am unable to determine outpatient glycemic control from hemodialysis. Recommend blood sugar monitoring and adjustment as an outpatient based upon these values. * Please note that the plan above was derived based on current level of insulin resistance and hospital stress. These recommendations are appropriate for inpatient admission only. Plan of care upon discharge will need to be reassessed to avoid potential outpatient hypo/hyperglycemia. Thank you.
[2016-09-21 10:18] LABS: ALLEN TEST POS (POS); ARTERIAL BLD GAS O2 SATURATION 91.5 % (90-95); ARTERIAL BLOOD GAS BASE EXCESS 0.6 mEq/L (-9-1.8); ARTERIAL BLOOD GAS HCO3 27 mmol/L (19-24); ARTERIAL BLOOD GAS PO2 72 mm/Hg (80-95); ARTERIAL BLOOD GAS pH 7.36 (7.35-7.45); O2 ADMINISTRATION 3L
--- NOTE | 2016-09-21 10:54 | Nephrology Progress Note ---
Nephrology Progress Note Date of Service Sep 21, 2016. Chief Complaint Follow-up for ESRD on hemodialysis. Subjective Jazmin was seen and examined in her room this morning with her at bedside. Overall she has been feeling better has been out of bed to chair. Has been using CPAP. Blood pressure, electrolyte and volume status stable. Had dialysis yesterday, uneventful, and more than 2 liters UF. Review of Systems A complete review of systems was performed. Pertinent positives are noted above. All other systems are negative. Vital Signs Last 8 Hrs Date Time Temp Pulse Resp B/P (MAP) Pulse Ox O2 Delivery O2 Flow Rate FiO2 09/21/16 07:26 36.6 99 20 126/57 (80) 96 Nasal Cannula 3.0 09/21/16 06:50 78 22 95 Nasal Cannula 3.0 09/21/16 05:22 87 98 30 09/21/16 04:09 36.6 90 20 107/47 (67) 96 BiPAP 09/21/16 04:00 BiPAP 30 09/21/16 02:10 95 24 95 BiPAP/CPAP 30 09/21/16 02:07 95 95 30 Last Recorded Weight Weight (Kilograms): 139.200 Physical Exam GENERAL: Middle-aged female, AAA x 3, morbidly obese NECK: Supple, no JVD. RESPIRATORY: Normal breathing efforts, no accessory muscle use, clear to auscultation bilaterally, no wheezes or rales. CARDIOVASCULAR: S1, S2 normal, rate rhythm regular. EXTREMITY: trace bilateral lower extremity edema NEURO: speech fluent. PSYCHIATRY: Normal mood and judgment Family History Cancer Diabetes mellitus Gallbladder disease Heart disease Lung disease Social History Smoking Status: Former smoker Smokeless Tobacco Use: No Alcohol Use: none Drug Use: none Marital Status: Housing Status: lives with family Occupation: unemployed Laboratory Results Past 24 Hours 09/21/16 05:44 Test 09/20/16 11:07 09/20/16 16:05 09/20/16 20:15 09/21/16 05:44 Bedside Glucose 115 mg/dl (70-90) 163 mg/dl (70-90) 332 mg/dl (70-90) Anion Gap 8.0 mmol/L (3-11) Est Creatinine Clear Calc Drug Dose 16.6 ml/min Estimated GFR () 10.0 Estimated GFR (Non- 8.6 BUN/Creatinine Ratio 5.5 (10-20) Calcium Level 8.5 mg/dl (8.5-10.1) Phosphorus Level 3.1 mg/dl (2.5-4.9) Magnesium Level 2.2 mg/dl (1.8-2.4) Albumin 2.7 gm/dl (3.4-5.0) Test 09/21/16 06:45 Bedside Glucose 215 mg/dl (70-90) Allergies Coded Allergies: Daptomycin (Verified Allergy, Mild, HIVES, 09/16/16) itching Iodine (Verified Allergy, Unknown, 09/16/16) Shellfish (Verified Allergy, Unknown, 09/16/16) Sulfamethoxazole w/Trimethoprim (Verified Allergy, Unknown, RASH, 09/16/16) Codeine (Verified Adverse Reaction, Unknown, NAUSEA, 09/16/16) has tolerated morphine Uncoded Allergies: kristina wipes (Allergy, Severe, red rash, excoriation, 09/19/16) Medications Current Inpatient Medications Medications (Trade) Dose Ordered Sig/Duyen Route Start Time Stop Time Status Last Admin Dose Admin Heparin Sodium (Porcine) (Heparin Sq 5000 Unit/0.5ml) 5,000 unit Q8 SQ 09/19/16 22:00 10/19/16 21:59 09/21/16 05:36 5,000 UNIT Acetaminophen (Tylenol Tab) 650 mg Q4H PRN PO 09/19/16 12:15 10/19/16 12:14 09/21/16 02:01 650 MG Ondansetron HCl (Zofran Inj) 4 mg Q6H PRN IV 09/19/16 12:15 10/19/16 12:14 09/20/16 11:39 4 MG Polyethylene (Miralax Powder Packet) 17 gm DAILY PRN PO 09/19/16 12:15 10/19/16 12:14 Allopurinol (Zyloprim Tab) 100 mg DAILY PO 09/20/16 09:00 10/20/16 08:59 09/21/16 08:31 100 MG Atorvastatin Calcium (Lipitor Tab) 40 mg DAILY PO 09/20/16 09:00 10/20/16 08:59 09/21/16 08:31 40 MG Vitamin B Complex/ Vit C/Folic Acid (Nephrocaps) 1 cap QAM PO 09/20/16 09:00 10/20/16 08:59 09/21/16 08:29 1 CAP Calcium Acetate (Phoslo Cap) 667 mg ACHS PO 09/19/16 16:15 10/19/16 16:14 09/21/16 05:37 667 MG Cholecalciferol (Vitamin D Tab) 1,000 inter.unit DAILY PO 09/20/16 09:00 10/20/16 08:59 09/21/16 08:31 1,000 INTER.UNIT Famotidine (Pepcid Tab) 20 mg DAILY PO 09/20/16 09:00 10/20/16 08:59 09/21/16 08:31 20 MG Salmeterol Xinafoate/ Fluticasone (Advair Diskus 500/50 Inh) 1 puff BID INH 09/19/16 21:00 10/19/16 20:59 09/21/16 08:31 1 PUFF Insulin Aspart (novoLOG ASPART) SLIDING SCALE ACHS SC 09/19/16 16:15 10/19/16 16:14 09/21/16 08:23 40 UNITS Albuterol/ Ipratropium (Duoneb) 3 ml Q6R INH 09/19/16 15:00 10/19/16 14:59 09/21/16 06:50 3 ML Ammonium Lactate (Lac-Hydrin) 1 appl BID EXT 09/19/16 21:00 10/19/16 20:59 09/21/16 08:42 1 APPL Metoprolol Succinate (Toprol Xl Tab) 150 mg DAILY PO 09/20/16 09:00 10/20/16 08:59 09/21/16 08:29 150 MG Miconazole Nitrate (Desenex Powder) 1 appln UD PRN EXT 09/19/16 12:15 10/19/16 12:14 09/19/16 21:50 1 APPLN Multivitamins/ Minerals (Multivitamin W/ Minerals Tab) 1 tab DAILY PO 09/20/16 09:00 10/20/16 08:59 09/21/16 08:29 1 TAB Pantoprazole Sodium (Protonix Tab) 40 mg DAILY PO 09/20/16 09:00 10/20/16 08:59 09/21/16 08:29 40 MG Pregabalin (Lyrica Cap) 75 mg BID PO 09/19/16 21:00 10/19/16 20:59 09/21/16 08:31 75 MG Pyridoxine HCl (Vitamin B-6 Tab) 200 mg DAILY PO 09/20/16 09:00 10/20/16 08:59 09/21/16 08:30 200 MG Tiotropium [place] (Spiriva Handihaler Inhaler) 1 puff DAILY INH 09/20/16 09:00 10/20/16 08:59 09/21/16 08:33 1 PUFF Hydromorphone HCl (Dilaudid Inj) 0.5 mg Q3H PRN IV 09/19/16 13:15 10/03/16 13:14 09/20/16 08:19 0.5 MG Glucose (Glucose 40% Gel) 15-30 GRAMS 15 GRAMS... UD PRN PO 09/19/16 15:00 10/19/16 14:59 Glucose (Glucose Chew Tab) 4-8 Tablets 4 Tabl... UD PRN PO 09/19/16 15:00 10/19/16 14:59 Dextrose (Dextrose 50% 50ML Syringe) 25-50ML OF 50% DW IV FOR... UD PRN IV 09/19/16 15:00 10/19/16 14:59 09/19/16 16:31 25 ML Glucagon (Glucagon Inj) 1 mg UD PRN SQ 09/19/16 15:00 10/19/16 14:59 Miscellaneous Information (Consult Glycemic Management Pharmacy) 1 ea UD PRN N/A 09/19/16 15:30 10/19/16 15:29 Ceftriaxone Sodium 1 gm/ Dextrose 50 ml @ 100 mls/hr Q24H IV 09/19/16 20:00 09/26/16 19:59 09/20/16 20:16 100 MLS/HR Azithromycin 250 mg/Dextrose 252.5 ml @ 125 mls/hr Q24H IV 09/20/16 18:00 09/23/16 20:02 09/20/16 17:51 125 MLS/HR Prednisone (PredniSONE TAB) 40 mg DAILY PO 09/21/16 09:00 10/20/16 08:59 09/21/16 08:30 40 MG Insulin Glargine (Lantus Vial) 80 units BID SC 09/21/16 09:00 10/21/16 08:59 09/21/16 08:24 80 UNITS Impression (1) ESRD on hemodialysis (2) Frequent falls (3) Obesity hypoventilation syndrome (4) Metabolic alkalosis (5) Anemia Hemalatha is a 60-year-old female with morbid obesity, obesity hypoventilation syndrome, recurrent hypercapnia, advanced chronic kidney disease requiring TRANSPORT [employer], right heart failure. She has had multiple hospitalizations for volume overload and electrolyte abnormalities associated with diuretics. Hemalatha started hemodialysis during hospitalization in June 2016. Permcath was placed 07/25. She completed her first dialysis treatment on . She is on hemodialysis at [facility] TTS schedule. She currently dialyzes via a TDC. AVF created 08/19/[address] Thapa. She was admitted with recurrent fall at home over last few days and weeks. Had HD yesterday. She has not been using CPAP at home regularly as she has been feeling uncomfortable, on admission CPAP setting was changed by Pulmonary, CO2 level improved, overall clinically stable. Started on empiric antibiotics for possible pneumonia however no fever or leukocytosis. Recommendations --next hemodialysis Thursday, currently blood pressure, volume status acceptable. --Suggest discontinuing antibiotic as pneumonia seems to be unlikely, she is asymptomatic clinically, no fever, leukocytosis, chest x-ray is more suggestive of atelectasis than infiltrate. -- continue on Nephrocaps and phosphate binder -- received SAMARA 14229 unit IV on 09/20/16 -- avoid IV fluid, dose medications for GFR less than 15 and follow low- potassium diet --may need home physical therapy on discharge for strengthening of lower extremity
--- NOTE | 2016-09-21 11:26 | Pulmonology Progress Note ---
Pulmonary Progress Note Date of Service Sep 21, 2016. Attending Dr. Morton Subjective Patient seen and examined. She states that she feels back her baseline. She denies any fever, chills, shortness of breath or cough. Objective VITAL SIGNS - reviewed. VS this morning T 36.7, BP 87/44-126/57, P 96-101, RR 20 -24, SaO2 95-98% on BiPAP 14/8, FiO2 30%.overnght, now on 3L NC GENERAL -Morbidly obese female out of bed to chair. Fully conversive today. HEAD - NC/AT. Topete facies. EYES - Sclera anicteric. conjunctiva pink and moist with no injection noted. EARS - No deformities of external structures noted on gross examination bilaterally. NOSE - Midline and without cyanosis. NECK - Neck with FROM. supple, NT, thick short neck MOUTH-No oral thrush noted, Mallampati IV LUNGS - Chest wall symmetric without accessory muscle use, intercostals retractions, or central cyanosis. Normal vesicular breath sounds CTA B/L. No wheezes, rales, or rhonchi appreciated. Decreased breath sound bilaterally at bases. Right PermCath in place. HEART - RRR with S1/S2. No murmur, rubs, or gallops appreciated. ABDOMEN - Obese, BS normoactive, No tenderness. EXTREMITIES - No clubbing or peripheral cyanosis. Bilateral pitting edema +2 NEUROLOGIC - Cranial nerves II through XII grossly intact. Sensory intact PSYCH - A&Ox 3, No suicidal ideations. SKIN - Bilateral lower extremity edema, Chronic venous changes. Dry. Repeat ABG from the is morning shows pH 7.36/pCO2 48/pO272/HCO 27/SaO2 91.5% ABG 09/21/2016pH 7.27, pCO2 54, pO2, HCO2 74, 90.6% on BiPAP. Labs reviewed. Urine Cx no growth, less than 1,000 colonies She is currently on Azithromycin q24h, Ceftriaxone 1 gm q24, Doxycyline 100 mg PO daily, Spriva 1 puff daily, Advair 500/50 BID and Duoneb q6h prn and prednisone 40 mg from a respiratory standpoint. Assessment & Plan Acute on chronic hypoxic and hyperbaric respiratory failure Obesity hypoventilation syndrome COPD MIKAYLA ESRD on HD Diastolic dysfunction Patient is improving with BiPAP at night. Continue with BIPAP on these settings with pressure of 14/8, FiO2 of 30%. Use nasal cannula titrate to FiO2 to 88-92%. Avoid sedatives and narcotic if at all possible, as they decrease respiratory drive and worsen hypercarbia. I stressed compliance of triology BiPAP machine at home while sleeping and to avoid hyperoxia on nasal canula. Continue with antibiotics, nebulizers , Spiriva and Advair and corticosteroids with a slow taper. Optimize cardiac medications for better diastolic dysfunction and HD by nephrology for fluid removal. Continue with heparin SC for DVT ppx I will sign off case. Please reconsult if you have any further questions or concerns. She follows with Dr. Nesbitt as an outpatient and should follow up with him upon discharge. Data Medications: Current Inpatient Medications Medications (Trade) Dose Ordered Sig/Duyen Route Start Time Stop Time Status Last Admin Dose Admin Heparin Sodium (Porcine) (Heparin Sq 5000 Unit/0.5ml) 5,000 unit Q8 SQ 09/19/16 22:00 10/19/16 21:59 09/21/16 05:36 5,000 UNIT Acetaminophen (Tylenol Tab) 650 mg Q4H PRN PO 09/19/16 12:15 10/19/16 12:14 09/21/16 02:01 650 MG Ondansetron HCl (Zofran Inj) 4 mg Q6H PRN IV 09/19/16 12:15 10/19/16 12:14 09/20/16 11:39 4 MG Polyethylene (Miralax Powder Packet) 17 gm DAILY PRN PO 09/19/16 12:15 10/19/16 12:14 Allopurinol (Zyloprim Tab) 100 mg DAILY PO 09/20/16 09:00 10/20/16 08:59 09/21/16 08:31 100 MG Atorvastatin Calcium (Lipitor Tab) 40 mg DAILY PO 09/20/16 09:00 10/20/16 08:59 09/21/16 08:31 40 MG Vitamin B Complex/ Vit C/Folic Acid (Nephrocaps) 1 cap QAM PO 09/20/16 09:00 10/20/16 08:59 09/21/16 08:29 1 CAP Calcium Acetate (Phoslo Cap) 667 mg ACHS PO 09/19/16 16:15 10/19/16 16:14 09/21/16 05:37 667 MG Cholecalciferol (Vitamin D Tab) 1,000 inter.unit DAILY PO 09/20/16 09:00 10/20/16 08:59 09/21/16 08:31 1,000 INTER.UNIT Famotidine (Pepcid Tab) 20 mg DAILY PO 09/20/16 09:00 10/20/16 08:59 09/21/16 08:31 20 MG Salmeterol Xinafoate/ Fluticasone (Advair Diskus 500/50 Inh) 1 puff BID INH 09/19/16 21:00 10/19/16 20:59 09/21/16 08:31 1 PUFF Insulin Aspart (novoLOG ASPART) SLIDING SCALE ACHS SC 09/19/16 16:15 10/19/16 16:14 09/21/16 08:23 40 UNITS Albuterol/ Ipratropium (Duoneb) 3 ml Q6R INH 09/19/16 15:00 10/19/16 14:59 09/21/16 06:50 3 ML Ammonium Lactate (Lac-Hydrin) 1 appl BID EXT 09/19/16 21:00 10/19/16 20:59 09/21/16 08:42 1 APPL Metoprolol Succinate (Toprol Xl Tab) 150 mg DAILY PO 09/20/16 09:00 10/20/16 08:59 09/21/16 08:29 150 MG Miconazole Nitrate (Desenex Powder) 1 appln UD PRN EXT 09/19/16 12:15 10/19/16 12:14 09/19/16 21:50 1 APPLN Multivitamins/ Minerals (Multivitamin W/ Minerals Tab) 1 tab DAILY PO 09/20/16 09:00 10/20/16 08:59 09/21/16 08:29 1 TAB Pantoprazole Sodium (Protonix Tab) 40 mg DAILY PO 09/20/16 09:00 10/20/16 08:59 09/21/16 08:29 40 MG Pregabalin (Lyrica Cap) 75 mg BID PO 09/19/16 21:00 10/19/16 20:59 09/21/16 08:31 75 MG Pyridoxine HCl (Vitamin B-6 Tab) 200 mg DAILY PO 09/20/16 09:00 10/20/16 08:59 09/21/16 08:30 200 MG Tiotropium [place] (Spiriva Handihaler Inhaler) 1 puff DAILY INH 09/20/16 09:00 10/20/16 08:59 09/21/16 08:33 1 PUFF Hydromorphone HCl (Dilaudid Inj) 0.5 mg Q3H PRN IV 09/19/16 13:15 10/03/16 13:14 09/20/16 08:19 0.5 MG Glucose (Glucose 40% Gel) 15-30 GRAMS 15 GRAMS... UD PRN PO 09/19/16 15:00 10/19/16 14:59 Glucose (Glucose Chew Tab) 4-8 Tablets 4 Tabl... UD PRN PO 09/19/16 15:00 10/19/16 14:59 Dextrose (Dextrose 50% 50ML Syringe) 25-50ML OF 50% DW IV FOR... UD PRN IV 09/19/16 15:00 10/19/16 14:59 09/19/16 16:31 25 ML Glucagon (Glucagon Inj) 1 mg UD PRN SQ 09/19/16 15:00 10/19/16 14:59 Miscellaneous Information (Consult Glycemic Management Pharmacy) 1 ea UD PRN N/A 09/19/16 15:30 10/19/16 15:29 Ceftriaxone Sodium 1 gm/ Dextrose 50 ml @ 100 mls/hr Q24H IV 09/19/16 20:00 09/26/16 19:59 09/20/16 20:16 100 MLS/HR Azithromycin 250 mg/Dextrose 252.5 ml @ 125 mls/hr Q24H IV 09/20/16 18:00 09/23/16 20:02 09/20/16 17:51 125 MLS/HR Prednisone (PredniSONE TAB) 40 mg DAILY PO 09/21/16 09:00 10/20/16 08:59 09/21/16 08:30 40 MG Insulin Glargine (Lantus Vial) 80 units BID SC 09/21/16 09:00 10/21/16 08:59 09/21/16 08:24 80 UNITS Vital Signs: Date Time Temp Pulse Resp B/P (MAP) Pulse Ox O2 Delivery O2 Flow Rate FiO2 09/21/16 07:26 36.6 99 20 126/57 (80) 96 Nasal Cannula 3.0 09/21/16 06:50 78 22 95 Nasal Cannula 3.0 09/21/16 05:22 87 98 30 09/21/16 04:09 36.6 90 20 107/47 (67) 96 BiPAP 09/21/16 04:00 BiPAP 30 09/21/16 02:10 95 24 95 BiPAP/CPAP 30 09/21/16 02:07 95 95 30 09/21/16 00:32 106/60 (75) 09/21/16 00:07 36.7 91 22 87/44 (58) 97 BiPAP 09/20/16 23:59 100 BiPAP 30 09/20/16 23:07 96 95 30 09/20/16 20:00 100 BiPAP 35 09/20/16 19:50 36.7 96 111/49 (69) 09/20/16 19:35 36.7 100 22 116/48 (70) 94 Nasal Cannula 3.0 09/20/16 18:51 98 24 91 Nasal Cannula 3.0 09/20/16 16:00 100 BiPAP 35 09/20/16 15:34 36.7 103 18 108/53 (71) 95 BiPAP 09/20/16 14:02 92 18 99 BiPAP/CPAP 30 09/20/16 14:00 97 118/57 09/20/16 14:00 92 99 30 09/20/16 13:45 100 94/57 09/20/16 13:30 102 106/68 09/20/16 13:15 96 112/56 09/20/16 13:00 96 101/51 09/20/16 12:45 96 107/52 09/20/16 12:30 92 104/54 09/20/16 12:15 91 92/48 09/20/16 12:00 96 90/46 09/20/16 12:00 95 BiPAP 30 09/20/16 11:46 82 101/46 09/20/16 11:45 95 100/50 09/20/16 11:30 95 100/50 09/20/16 11:24 36.0 96 20 100/53 (69) 98 09/20/16 11:15 95 96/49 09/20/16 11:10 99 100 30 09/20/16 11:00 95 100/49 7/22/17 10:45 99 111/54 09/20/16 10:30 100 104/46 09/20/16 10:15 99 102/55 09/20/16 10:06 36.9 106 127/57 (80) 09/20/16 10:00 102 100/57 09/20/16 09:55 102 Laboratory Results: Last 24 Hours Test 09/20/16 11:07 09/20/16 16:05 09/20/16 20:15 09/21/16 05:44 Bedside Glucose 115 mg/dl 163 mg/dl 332 mg/dl Sodium Level 130 mmol/L Potassium Level 4.2 mmol/L Chloride Level 95 mmol/L Carbon Dioxide Level 27 mmol/L Anion Gap 8.0 mmol/L Blood Urea Nitrogen 28 mg/dl Creatinine 5.00 mg/dl Est Creatinine Clear Calc Drug Dose 16.6 ml/min Estimated GFR () 10.0 Estimated GFR (Non- 8.6 BUN/Creatinine Ratio 5.5 Random Glucose 217 mg/dl Calcium Level 8.5 mg/dl Phosphorus Level 3.1 mg/dl Magnesium Level 2.2 mg/dl Albumin 2.7 gm/dl Test 09/21/16 06:45 09/21/16 09:51 Bedside Glucose 215 mg/dl
--- NOTE | 2016-09-21 16:42 | Progress Note ---
Subjective Date of Service: Sep 21, 2016. Subjective Pt evaluation today including: conversation w/ patient, conversation w/ family , physical exam, chart review, lab review, review of studies, conversation w/ investigations consultant, review of inpatient medication list Sitting up in chair, pleasant, conversational, reported feeling great, feel in the baseline Problem List Medical Problems: (1) Acute respiratory failure with hypoxia and hypercarbia Status: Acute (2) Altered mental status Status: Acute (3) Anasarca Status: Acute (4) Anasarca Status: Acute (5) Bilateral cellulitis of lower leg Status: Acute (6) Bilateral lower leg cellulitis Status: Acute (7) Change in mental status Status: Acute (8) Chronic renal failure Status: Acute (9) CO2 retention Status: Acute (10) Contusion of multiple sites Status: Acute (11) Dehydration Status: Acute (12) Dyspnea on exertion Status: Acute (13) Fall Status: Acute (14) Fall Status: Acute (15) Fever Status: Acute (16) Fever Status: Acute (17) Generalized weakness Status: Acute (18) Hypercarbia Status: Acute (19) Hyperkalemia Status: Acute (20) Hypokalemia Status: Acute (21) Hypoventilation Status: Acute (22) Hypoxemia Status: Acute (23) Hypoxia Status: Acute (24) Lumbar strain Status: Acute (25) Metabolic acidosis Status: Acute (26) Nail avulsion of toe Status: Acute (27) Obesity Status: Acute (28) Respiratory failure Status: Acute (29) Weakness Status: Acute (30) Weight gain Status: Acute (31) Wrist pain Status: Acute Review of Systems Constitutional: No fever, No chills, No sweats, No weight loss, No weakness, No fatigue, No problem reported Eyes: No worsening of vision, No eye pain, No redness, No discharge, No diplopia ENT: No hearing loss, No unusual epistaxis, No nasal symptoms, No sore throat, No tinnitus, No dental problems, No trouble swallowing Respiratory: + shortness of breath (in baseline), No cough, No sputum, No wheezing, No dyspnea on exertion, No dyspnea at rest, No hemoptysis Cardiac: No chest pain, No orthopnea, No PND, No edema, No claudication, No palpitations Abdomen: No pain, No nausea, No vomiting, No diarrhea, No constipation Musculoskeletal: No joint pain, No muscle pain, No swelling, No calf pain Female : No dysuria, No urinary frequency, No hematuria, No incontinence, No abnormal vaginal bleeding, No vaginal discharge Neurologic: No memory loss, No paralysis, No weakness, No numbness/tingling, No vertigo, No balance problems Psychiatric: No depression symptoms, No anhedonism, No anxiety, No insomnia, No substance abuse Heme: No abnormal bleeding/bruising, No clotting problems, No swollen lymph nodes, No night sweats Endo: No fatigue, No excessive thirst, No excessive urination Skin: + problem reported (right toe mild red and some drainages patient reported is getting better), No rash, No itch, No new/changing skin lesions, No color change, No bleeding Objective Vital Signs Date Time Temp Pulse Resp B/P (MAP) Pulse Ox O2 Delivery O2 Flow Rate FiO2 09/21/16 16:00 Nasal Cannula 3.0 09/21/16 15:37 36.5 88 20 105/45 (65) 93 Nasal Cannula 3.0 09/21/16 13:42 115 22 93 Nasal Cannula 3.0 09/21/16 12:23 98 93 09/21/16 12:00 Nasal Cannula 3.0 09/21/16 11:25 36.7 99 20 111/55 (73) 94 Nasal Cannula 3.0 09/21/16 08:00 Nasal Cannula 3.0 09/21/16 07:26 36.6 99 20 126/57 (80) 96 Nasal Cannula 3.0 09/21/16 06:50 78 22 95 Nasal Cannula 3.0 09/21/16 05:22 87 98 30 09/21/16 04:09 36.6 90 20 107/47 (67) 96 BiPAP 09/21/16 04:00 BiPAP 30 09/21/16 02:10 95 24 95 BiPAP/CPAP 30 09/21/16 02:07 95 95 30 09/21/16 00:32 106/60 (75) 09/21/16 00:07 36.7 91 22 87/44 (58) 97 BiPAP 09/20/16 23:59 100 BiPAP 30 09/20/16 23:07 96 95 30 09/20/16 20:00 100 BiPAP 35 09/20/16 19:50 36.7 96 111/49 (69) 09/20/16 19:35 36.7 100 22 116/48 (70) 94 Nasal Cannula 3.0 09/20/16 18:51 98 24 91 Nasal Cannula 3.0 Physical Exam General Appearance: WD/WN, no apparent distress, + obese Eyes: normal inspection, PERRL, EOMI, sclerae normal ENT: normal ENT inspection, hearing grossly normal, pharynx normal Neck: supple, no adenopathy, thyroid normal, no JVD, no carotid bruits, trachea midline Respiratory/Chest: chest non-tender, normal breath sounds, no respiratory distress, no accessory muscle use, + decreased breath sounds Cardiovascular: regular rate, rhythm, no edema, no gallop, no JVD, no murmur Abdomen: normal bowel sounds, non tender, soft, no organomegaly, no pulsatile mass Extremities: normal range of motion, non-tender, normal inspection, no pedal edema, no calf tenderness, normal capillary refill, pelvis stable 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: manager talent acquisition II-XII nml as tested, no motor/sensory deficits, alert, normal mood/affect, oriented x 3 Skin: normal color, warm/dry, + pertinent finding (right toe has some red and drainage is not new and is getting better) Lymphatic: no adenopathy Laboratory Results Last 24 Hours Test 09/20/16 20:15 09/21/16 05:44 09/21/16 06:45 09/21/16 10:07 Bedside Glucose 332 mg/dl 215 mg/dl Sodium Level 130 mmol/L Potassium Level 4.2 mmol/L Chloride Level 95 mmol/L Carbon Dioxide Level 27 mmol/L Anion Gap 8.0 mmol/L Blood Urea Nitrogen 28 mg/dl Creatinine 5.00 mg/dl Est Creatinine Clear Calc Drug Dose 16.6 ml/min Estimated GFR () 10.0 Estimated GFR (Non- 8.6 BUN/Creatinine Ratio 5.5 Random Glucose 217 mg/dl Calcium Level 8.5 mg/dl Phosphorus Level 3.1 mg/dl Magnesium Level 2.2 mg/dl Albumin 2.7 gm/dl Arterial Blood pH 7.36 Arterial Blood Partial Pressure CO2 48 mmHg Arterial Blood Partial Pressure O2 72 mm/Hg Arterial Blood HCO3 27 mmol/L Arterial Blood Oxygen Saturation 91.5 % Arterial Blood Base Excess 0.6 mEq/L Arterial Blood Gas Delivery 3L Oleg Test POS Test 09/21/16 11:28 09/21/16 16:09 Bedside Glucose 129 mg/dl 171 mg/dl Assessment and Plan 60 yo female admitted on 09/19/2016 with progressively worsening hand jerking and leg weakness with falls h/o COPD, DMII, MIKAYLA, OHS, gout, CKD stage V on HD, HL, HTN, pulmonary nodules, morbid obesity, and chronic hypercapnic respiratory failure Per report , c/o severe right buttocks pain with radiation down leg and tailbone pain, was recently admitted for similar hypercapnic resp failure 1 month ago and went to [facility] and was discharged to home 2 weeks ago. Acute on chronic hypercapnic respiratory failure/obesity hypoventilation syndrome/MIKAYLA/COPD: Stable and resolved likely secondary to poor compliance with BiPAP at home Continue BiPAP , check ABG Patient has no fever, no chill, no leukocytosis, clinical condition significantly improved within short period, and chest x-ray favors atelectasis not consolidation Therefore don't feel has real pneumonia, discontinue antibiotics Continue DuoNebs q6 hrs, Advair, Spiriva, and continue current dose of prednisone which need to be tapering Possible right lower lobe pneumonia, upon admission, filled is less likely Frequent falls, likely secondary to deconditioning, weakness, jerkiness secondary to hypercapnia Head CT- Negative for any acute changes, continue PT/OT evaluations Tailbone pain and right-sided sciatica-exacerbated by recent falls. toenail avulsion and abrasion of second toe on the right Continue Lyrica for pain, Was on Keflex prior to admission as a prophylaxis, will resume Keflex Wound care consult CKD stage 5, secondary to diabetic nephropathy/hypertensive sclerosis- requiring HD Thursday. Has a PermCath on the right while left AV fistula is maturing Nephrology consulted, appreciate recommendations , continue current care Hypercalcemia- noted during previous admission: Stable - Serum free light chain ratio is elevated. 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 Delong, pending further evaluation Cor pulmonale: Stable - Last echo 07/25/15: Hyperdynamic LV systolic function. Mild concentric LV hypertrophy. LV diastolic dysfunction. Mild RV dilatation and systolic dysfunction. Mild tricuspid regurgitation. Mildly elevated RV systolic pressure. Normal central venous pressure. Ejection Fraction = >70 % - Daily weights, I's and O's Chronic venous insufficiency: Elevate legs, TEDs HTN- CONTROLLED: Dyslipidemia: Lipitor 40 mg daily DM- HbA1c 6.3% on 05/20/16: Gout- ASYMPTOMATIC: Allopurinol 100 mg daily Peripheral neuropathy/chronic pain: - Pregabalin 75 mg BID Chronic suppressive therapy- follows w/ ID: Continue Doxycycline 100 mg daily The above condition is stable continue current care DVT Prophylaxis: Heparin Code Status: LEVEL I, FULL Disposition-PT/OT evaluations, probably needs rehabilitation Discussed with RN and patient answered all the questions, Rehabilitation or going home tomorrow Continued [facility] stay due to: multiple IV medications needed Discharge planning: home, uncertain
[2016-09-21] MEDS ORDERED: HYDROCODONE/ACETAMOPHEN 5/325MG TAB PO PRN (16:45)
[2016-09-21] MEDS: DOXYCYCLINE HYCLATE 100 MG CAP PO SCH (17:26)
[2016-09-22] MEDS: ALBUT/IPRATROP 3MG/0.5MG NEB 3 ML VIAL INH SCH ×3 (02:30→14:02)
[2016-09-22] MEDS: HEPARIN SOD 5000 UNIT/0.5 ML CARP SQ SCH ×2 (06:00→14:30)
[2016-09-22] MEDS: CALCIUM ACETATE 667MG GELCAP PO SCH ×2 (06:06→12:00)
[2016-09-22 07:04] VITALS: PULSE 96; O2SAT 94
[2016-09-22 07:12] VITALS: BP 106/54; PULSE 88; TEMP 36.5; O2SAT 95
[2016-09-22 07:48] LABS: BUN/CREATININE RATIO 6.7 (10-20); CALCIUM 9.2 mg/dl (8.5-10.1); CARBON DIOXIDE 25 mmol/L (21-32); CHLORIDE 96 mmol/L (98-107); GLUCOSE 219 mg/dl (70-99); PHOSPHORUS 4.9 mg/dl (2.5-4.9); SODIUM 130 mmol/L (136-145)
[2016-09-22 07:55] LABS: BLOOD UREA NITROGEN 50 mg/dl (7-18)
[2016-09-22] MEDS ORDERED: ASCORBIC ACID 500 MG TAB PO SCH (08:00)
[2016-09-22] MEDS ORDERED: TOCOPHERYL, DL-ALPHA 400 INTER.UNIT CAP PO SCH (08:00)
[2016-09-22] MEDS: DOXYCYCLINE HYCLATE 100 MG CAP PO SCH (08:28)
[2016-09-22] MEDS: AMMONIUM LACTATE 12% LOTION 225 GM BTL EXT SCH (08:28)
[2016-09-22] MEDS: FLUTICASONE/SALMETEROL (ADVAIR) 500/50 INH 14 PUFF INH SCH (08:29)
[2016-09-22] MEDS: CHOLECALCIFEROL 1000 INTER.UNIT TAB PO SCH (08:29)
[2016-09-22 08:30] VITALS: O2SAT 95
[2016-09-22] MEDS: ALLOPURINOL 100 MG TAB PO SCH (08:30)
[2016-09-22] MEDS: METOPROLOL SUCC 50MG EXT REL TAB PO SCH (08:30)
[2016-09-22] MEDS: ATORVASTATIN 40 MG TAB PO SCH (08:31)
[2016-09-22] MEDS: CEROVITE ADV FORMULA TAB PO SCH (08:31)
[2016-09-22] MEDS: NEPHROCAPS PO SCH (08:31)
[2016-09-22] MEDS: PYRIDOXINE HCL 50 MG TAB PO SCH (08:31)
[2016-09-22] MEDS: PANTOprazole SOD 40 MG TAB PO SCH (08:31)
[2016-09-22] MEDS: TIOTROPIUM BROMIDE 5 PUFF/90 MCG INH INH SCH (08:32)
[2016-09-22] MEDS: FAMOTIDINE 20 MG TAB PO SCH (08:32)
[2016-09-22] MEDS: PREGABALIN 75 MG CAP PO SCH (08:52)
[2016-09-22] MEDS: INSULIN ASPART 100 UNITS/ML 3 ML PEN SC SCH ×2 (08:58→13:05)
[2016-09-22] MEDS: INSULIN GLARGINE SC SCH (08:59)
--- NOTE | 2016-09-22 10:13 | Nephrology Progress Note ---
Nephrology Progress Note Date of Service Sep 22, 2016. Chief Complaint ESRD Subjective No acute events overnight. Hemalatha feels well this morning. She reports improvement in her respiratory symptoms. She tolerated PT well yesterday. Activity tolerance has improved since admission. She is hopeful that she can be discharged home today. She denies dyspnea at rest. Review of Systems A complete review of systems was performed. Pertinent positives are noted above. All other systems are negative. Vital Signs Last 8 Hrs Date Time Temp Pulse Resp B/P (MAP) Pulse Ox O2 Delivery O2 Flow Rate FiO2 09/22/16 07:12 36.5 88 20 106/54 (71) 95 Nasal Cannula 2.0 09/22/16 07:04 96 16 94 Nasal Cannula 2.0 Last Recorded Weight Weight (Kilograms): 139.200 Physical Exam General Appearance: no apparent distress, + obese Head: normocephalic, atraumatic Eyes: normal inspection, sclerae normal ENT: normal ENT inspection, pharynx normal Neck: supple, + pertinent finding (thick, unable to appreciate JVP) Respiratory/Chest: no respiratory distress, no accessory muscle use, + decreased breath sounds Cardiovascular: regular rate, rhythm, no gallop Abdomen/GI: non tender, soft Neurologic/Psych: alert, oriented x 3 Family History Cancer Diabetes mellitus Gallbladder disease Heart disease Lung disease Social History Smoking Status: Former smoker Smokeless Tobacco Use: No Alcohol Use: none Drug Use: none Marital Status: Housing Status: lives with family Occupation: unemployed Laboratory Results Past 24 Hours 09/22/16 06:15 09/22/16 08:19 Test 09/21/16 10:07 09/21/16 11:28 09/21/16 16:09 09/21/16 20:07 Arterial Blood pH 7.36 (7.35-7.45) Arterial Blood Partial Pressure CO2 48 mmHg (35-46) Arterial Blood Partial Pressure O2 72 mm/Hg (80-95) Arterial Blood HCO3 27 mmol/L (19-24) Arterial Blood Oxygen Saturation 91.5 % (90-95) Arterial Blood Base Excess 0.6 mEq/L (-9-1.8) Arterial Blood Gas Delivery 3L Oleg Test POS (POS) Bedside Glucose 129 mg/dl (70-90) 171 mg/dl (70-90) 268 mg/dl (70-90) Test 09/22/16 06:15 09/22/16 07:49 Anion Gap 9.0 mmol/L (3-11) Est Creatinine Clear Calc Drug Dose 11.0 ml/min Estimated GFR () 6.1 Estimated GFR (Non- 5.3 BUN/Creatinine Ratio 6.7 (10-20) Calcium Level 9.2 mg/dl (8.5-10.1) Phosphorus Level 4.9 mg/dl (2.5-4.9) Albumin 2.6 gm/dl (3.4-5.0) Bedside Glucose 231 mg/dl (70-90) Allergies Coded Allergies: Daptomycin (Verified Allergy, Mild, HIVES, 09/16/16) itching Iodine (Verified Allergy, Unknown, 09/16/16) Shellfish (Verified Allergy, Unknown, 09/16/16) Sulfamethoxazole w/Trimethoprim (Verified Allergy, Unknown, RASH, 09/16/16) Codeine (Verified Adverse Reaction, Unknown, NAUSEA, 09/16/16) has tolerated morphine Uncoded Allergies: kristina wipes (Allergy, Severe, red rash, excoriation, 09/19/16) Medications Current Inpatient Medications Medications (Trade) Dose Ordered Sig/Duyen Route Start Time Stop Time Status Last Admin Dose Admin Heparin Sodium (Porcine) (Heparin Sq 5000 Unit/0.5ml) 5,000 unit Q8 SQ 09/19/16 22:00 10/19/16 21:59 09/21/16 15:33 5,000 UNIT Acetaminophen (Tylenol Tab) 650 mg Q4H PRN PO 09/19/16 12:15 10/19/16 12:14 09/21/16 02:01 650 MG Ondansetron HCl (Zofran Inj) 4 mg Q6H PRN IV 09/19/16 12:15 10/19/16 12:14 09/20/16 11:39 4 MG Polyethylene (Miralax Powder Packet) 17 gm DAILY PRN PO 09/19/16 12:15 10/19/16 12:14 Allopurinol (Zyloprim Tab) 100 mg DAILY PO 09/20/16 09:00 10/20/16 08:59 09/22/16 08:30 100 MG Atorvastatin Calcium (Lipitor Tab) 40 mg DAILY PO 09/20/16 09:00 10/20/16 08:59 09/22/16 08:31 40 MG Vitamin B Complex/ Vit C/Folic Acid (Nephrocaps) 1 cap QAM PO 09/20/16 09:00 10/20/16 08:59 09/22/16 08:31 1 CAP Calcium Acetate (Phoslo Cap) 667 mg ACHS PO 09/19/16 16:15 10/19/16 16:14 09/22/16 06:06 667 MG Cholecalciferol (Vitamin D Tab) 1,000 inter.unit DAILY PO 09/20/16 09:00 10/20/16 08:59 09/22/16 08:29 1,000 INTER.UNIT Famotidine (Pepcid Tab) 20 mg DAILY PO 09/20/16 09:00 10/20/16 08:59 09/22/16 08:32 20 MG Salmeterol Xinafoate/ Fluticasone (Advair Diskus 500/50 Inh) 1 puff BID INH 09/19/16 21:00 10/19/16 20:59 09/22/16 08:29 1 PUFF Insulin Aspart (novoLOG ASPART) SLIDING SCALE ACHS SC 09/19/16 16:15 10/19/16 16:14 09/22/16 08:58 68 UNITS Albuterol/ Ipratropium (Duoneb) 3 ml Q6R INH 09/19/16 15:00 10/19/16 14:59 09/22/16 07:04 3 ML Ammonium Lactate (Lac-Hydrin) 1 appl BID EXT 09/19/16 21:00 10/19/16 20:59 09/22/16 08:28 1 APPL Metoprolol Succinate (Toprol Xl Tab) 150 mg DAILY PO 09/20/16 09:00 10/20/16 08:59 09/22/16 08:30 150 MG Miconazole Nitrate (Desenex Powder) 1 appln UD PRN EXT 09/19/16 12:15 10/19/16 12:14 09/19/16 21:50 1 APPLN Multivitamins/ Minerals (Multivitamin W/ Minerals Tab) 1 tab DAILY PO 09/20/16 09:00 10/20/16 08:59 09/22/16 08:31 1 TAB Pantoprazole Sodium (Protonix Tab) 40 mg DAILY PO 09/20/16 09:00 10/20/16 08:59 09/22/16 08:31 40 MG Pregabalin (Lyrica Cap) 75 mg BID PO 09/19/16 21:00 10/19/16 20:59 09/22/16 08:52 75 MG Pyridoxine HCl (Vitamin B-6 Tab) 200 mg DAILY PO 09/20/16 09:00 10/20/16 08:59 09/22/16 08:31 200 MG Tiotropium [place] (Spiriva Handihaler Inhaler) 1 puff DAILY INH 09/20/16 09:00 10/20/16 08:59 09/22/16 08:32 1 PUFF Hydromorphone HCl (Dilaudid Inj) 0.5 mg Q3H PRN IV 09/19/16 13:15 10/03/16 13:14 09/20/16 08:19 0.5 MG Glucose (Glucose 40% Gel) 15-30 GRAMS 15 GRAMS... UD PRN PO 09/19/16 15:00 10/19/16 14:59 Glucose (Glucose Chew Tab) 4-8 Tablets 4 Tabl... UD PRN PO 09/19/16 15:00 10/19/16 14:59 Dextrose (Dextrose 50% 50ML Syringe) 25-50ML OF 50% DW IV FOR... UD PRN IV 09/19/16 15:00 10/19/16 14:59 09/19/16 16:31 25 ML Glucagon (Glucagon Inj) 1 mg UD PRN SQ 09/19/16 15:00 10/19/16 14:59 Miscellaneous Information (Consult Glycemic Management Pharmacy) 1 ea UD PRN N/A 09/19/16 15:30 10/19/16 15:29 Prednisone (PredniSONE TAB) 40 mg DAILY PO 09/21/16 09:00 10/20/16 08:59 09/22/16 08:31 40 MG Insulin Glargine (Lantus Vial) 80 units BID SC 09/21/16 09:00 10/21/16 08:59 09/22/16 08:59 80 UNITS Acetaminophen/ Hydrocodone Bitart ([place] 5/325 Tab) 1 tab Q6H PRN PO 09/21/16 16:45 10/05/16 16:44 09/21/16 21:47 1 TAB Ascorbic Acid (Vitamin C Tab) 1,000 mg DAILY PO 09/22/16 08:00 10/22/16 08:59 09/22/16 08:29 1,000 MG yg-Amlcw-Hijodjiwou Acetate (Vitamin E Cap) 800 interunit DAILY PO 09/22/16 08:00 10/22/16 08:59 09/22/16 08:30 800 INTERUNIT Doxycycline Hyclate (Vibramycin Cap) 100 mg DAILY PO 09/21/16 17:30 10/01/16 17:29 09/22/16 08:28 100 MG Impression (1) ESRD on hemodialysis (2) Frequent falls (3) Obesity hypoventilation syndrome (4) Metabolic alkalosis (5) Anemia Hemalatha is a 60-year-old female with morbid obesity, obesity hypoventilation syndrome, recurrent hypercapnia, advanced chronic kidney disease requiring [employer], right heart failure. Hemalatha was admitted with recurrent falls, weakness and hypercapnia. She reports improvement with adjustment in BIPAP, oxygen and supportive care. Blood pressure, volume status and electrolytes are currently appropriate. Recommendations ESRD: -- HD TTS, resume treatment at [facility] tomorrow if discharged today -- Renal diet -- Medications appropriate for renal function Obesity hypoventilation: -- PT today -- Possible discharge home today -- Reviewed the importance of compliance with BIPAP Anemia: -- received SAMARA 69635 unit IV on 09/20/16 Recurrent falls: -- Safety and risk of injury was discussed in detail this morning -- Hemalatha reiterates her primary goal for discharge home
[2016-09-22] MEDS ORDERED: INSULIN GLARGINE SC ONE (12:30)
--- NOTE | 2016-09-22 14:00 | Pharmacy Progress Note ---
Glycemic: Assessment & Plan Date of Service Sep 22, 2016. Assessment & Plan CURRENT INSULIN REGIMEN: * Basal insulin: Lantus 80 units every 12 hours * Correctional Insulin: Novolog Correction per scale ACHS Goal Range: Low 110 mg/dL - High 140 mg/dL Correction Factor: 6 mg/dL/unit * Prandial insulin: Per carb ratio of 1 unit per 1.5 grams CHO consumed ASSESSMENT: * Ms Gaytan is a 60 y/o F well known to the glycemic service. PMH significant for ESRD on dialysis and CHF. * During recent admissions, she has required 80 -85 units BID of basal insulin * She typically requires 220 - 250 units per day (up to 300 units on some occasions) * No changes to stress factors today - prednisone remains at 40 mg po daily * She received 294 units of insulin on 09/21 with BSGs ranging 129 - 268 mg/dl * 160 units of basal insulin * 134 units of bolus insulin * Changes to insulin regimen: * Fasting BSG of 231 mg/dL is above goal range. Will increase Lantus. * Prandial BSGs become elevated throughout the day, therefore, tighten CF. CR is already extremely aggressive - will continue for now. PLAN FOR INPATIENT GLYCEMIC CONTROL: * Basal insulin with LANTUS * Additional 10 units ordered for 1230 x 1 * Increase to 85 units SQ BID, starting with 09/22 pm dose * Bolus Insulin with NOVOLOG per scale ACHS * Goal Range: Low 110 mg/dL - High 140 mg/dL * Tighten Correction Factor to: 4 mg/dL/unit * Continue Nutritional / Prandial insulin per carb ratio of 1 unit per 1.5 grams CHO consumed Recommendations for Discharge * Ms Gaytan is a dialysis patient, therefore, A1c value may not be indicative of outpatient glycemic control. False decreases in A1c can occur with hemodialysis due to altered red cell turnover. * Recommend continuing out patient regimen with blood sugar monitoring and adjustment per outpatient provider. * Please note that the plan above was derived based on current level of insulin resistance and hospital stress. These recommendations are appropriate for inpatient admission only. Plan of care upon discharge will need to be reassessed to avoid potential outpatient hypo/hyperglycemia. Thank you.
[2016-09-22 14:06] VITALS: PULSE 89; O2SAT 93
[2016-09-22] MEDS ORDERED: PRED10TA PO (14:40)
--- NOTE | 2016-09-22 15:41 | Discharge Instructions ---
Discharge Instructions Date of Service Sep 22, 2016. Admission Reason for Admission: Acute Hypercapnic Respiratory Failure, Weakness Discharge Discharge Diagnosis / Problem: Acute Hypercapnic Respiratory failure, weakness , falls Discharge Goals Goal(s): Improve function, Improve disease control Activity Recommendations Activity Limitations: resume your previous activity Lifting Limitations: none Exercise/Sports Limitations: as tolerated Shower/Bathe: no limitations Driving or Machine Use: no limitations . Instructions / Follow-Up Instructions / Follow-Up Medications: - PREDNISONE: dose increased up to 40mg per pulmonology, want you to complete a slow taper starting tomorrow, take 40mg daily x 4 days, then 35mg daily x 4 days, then 30mg daily x 4 days and so forth until you return to home dose of 15mg daily please discuss with Emily Isaac any further dose adjustments after the taper is complete - NOVOLOG: Prendisone will cause sugars to rise, discussed a treatment plan with pharmacy and they developed the below plan for your Novolog according to Prednisone dose While on Prednisone 40 mg: Novolog 75 units with breakfast, 75 units with lunch, 90 units with dinner , 50 units at bedtime Prednisone 35 mg: Novolog 75 units with breakfast, 75 units with lunch, 90 units with dinner , 40 units at bedtime Prednisone 30 mg: Novolog 70 units with breakfast, 70 units with lunch, 90 units with dinner , 40 units at bedtime Prednisone 25 mg: Novolog 65 units with breakfast, 65 units with lunch, 90 units with dinner , 40 units at bedtime Prednisone 20 mg: Novolog 60 units with breakfast, 60 units with lunch, 90 units with dinner , 40 units at bedtime Prednisone 15 mg (usual home dose): Resume Novolog 50 units with breakfast, 50 units with lunch, 90 units with dinner, 40 units at bedtime No changes to your basal insulin HYPERCAPNIA: essential that you continue to use your Trilogy BIPAP to prevent further rises in your carbon dioxide Weakness: home PT/OT arranged ESRD: report for dialysis tomorrow FOLLOW UP - Emily Isaac in one week, please call to make an appointment - Laura Fernández Pulmonology: please call to make an appointment in 1 month, [phone] - Laura Fernández Nephrology, HD tomorrow and office visit as previously scheduled Current Hospital Diet Patient's current hospital diet: Diabetes Type 2 Diet, Renal Diet Discharge Diet Recommended Diet: Diabetes Type 2 Diet, Renal Diet Pending Studies Studies pending at discharge: no Laboratory Results Hemoglobin A1c Test 09/20/16 05:57 Range/Units Estimated Average Glucose 140 mg/dl Hemoglobin A1c 6.5 H 4.5-5.6 % Medical Emergencies . Who to Call and When: Medical Emergencies: If at any time you feel your situation is an emergency, please call 911 immediately. . Non-Emergent Contact Non-Emergency issues call your: Primary Care Provider Call Non-Emergent contact if: you have any medication questions . . "Provider Documentation" section prepared by Ebenezer Castro. . VTE Core Measure Inpt VTE Proph given/why not?: Unfractionated heparin SQ [place] Drug Monitoring Program Search Results: no issues identified
[2016-09-22 15:45] VITALS: BP 116/69; PULSE 92; TEMP 36.4; O2SAT 92
[2016-09-22 15:55] VITALS: BP 116/69; PULSE 92; TEMP 36.4; O2SAT 92
[2016-09-22] MEDS ORDERED: INSULIN GLARGINE SC SCH (20:00)
--- NOTE | 2016-09-23 09:22 | Discharge Summary ---
Discharge Summary Date of Service Sep 22, 2016. 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 Immunizations: Have You Had Influenza Vaccine: Yes Influenza Vaccine Date: Apr 15, 2012 History of Tetanus Vaccine?: No History of Pneumococcal: Yes Pneumococcal Date: Jan 13, 2013 History of Hepatitis B Vaccine: No Procedures: Hemodialysis Consultations: Nephrology Pulmonology Medication Reconciliation New Medications: Prednisone (Prednisone) 10 Mg Tab 40 MG PO DAILY for 32 Days, #72 TAB taper, start tomorrow, take 40mg (4 tab) x 4 days then decrease by 5mg every 4 days until completed Continued Medications: Allopurinol (Zyloprim) 100 Mg Tab 100 MG PO DAILY, TAB Ascorbic Acid (Vitamin C 500 mg) 1 Chw Chw 1000 MG PO DAILY Atorvastatin (Lipitor) 40 Mg Tab 40 MG PO DAILY, TAB B-Complex W/ C & Folic Acid (Renal) 1 Cap Cap 1 CAP PO QAM for 30 Days, #30 CAP Calcium Acetate (Phosphate Bin (Phoslo 667 Mg) 667 Mg Cap 667 MG PO ACHS, #120 Cholecalciferol (Vitamin D3) 1,000 Unit Tab 1000 INTER.UNIT PO DAILY, TAB Doxycycline Hyclate (Doxycycline Hyclate) 100 Mg Tab 100 MG PO DAILY, TAB Famotidine (Famotidine) 20 Mg Tab 20 MG PO DAILY for 30 Days, #30 TAB Fluticasone Prop/Salmeterol (Advair Diskus 500/50 60 Dose) 1 Ea Aerp 1 PUFF INH BID, INHALER Home O2 Therapy (Oxygen) Gas 3 LITERS NA CONTINOUS, BTL Hydrocodone/Acetaminophen 5MG/325MG ([place] 5MG/325MG) Tab 1 TAB PO Q6H PRN for Pain for 3 Days, #12 TAB PRN PAIN Insulin Aspart (Novolog Flexpen) 100 Units/Ml Inj 50 UNITS SQ W/BREAKFAST Insulin Aspart (Novolog Flexpen) 100 Units/Ml Inj 50 UNITS SQ W/LUNCH Insulin Aspart (Novolog Flexpen) 100 Units/Ml Inj 90 UNITS SQ W/SUPPER Insulin Aspart (Novolog Flexpen) 100 Units/Ml Inj 40 UNITS SQ HS PRN for Late Night Snack Insulin Glargine (Toujeo Solostar) 300 Unit/Ml Inj 70 UNITS SC TID ADMINISTER WITH BREAKFAST, EVENING MEAL AND AT BEDTIME Ipratropium-Albuterol (Duoneb) 3 Ml Nebu 1 TREATMENT INH Q6H PRN for SOB/Wheezing, INHA Lactic Acid (Ammonium Lactate) (Amlactin) 12 % Lot 1 APPLN TOP BID APPLY AND RUB IN A THIN FILM TO AFFECTED AREAS Metoprolol Succ (Toprol Xl) (Toprol-Xl ) 100 Mg Tabcr 150 MG PO DAILY, TAB Miconazole Nitrate (Desenex Shake Powder) 43 Appln/43 Gm Powd 1 APPLN TOP UD PRN for Affected Skin Folds Multiple Vitamins W/ Minerals (One Daily For Women) 1 Tab Tab 1 TAB PO DAILY Pantoprazole (Protonix) 40 Mg Tab 40 MG PO DAILY, TAB Pregabalin (Lyrica) 75 Mg Cap 75 MG PO BID for 30 Days, #60 CAP Pyridoxine (Vitamin B6) 100 Mg Tab 200 MG PO DAILY, TAB Tiotropium Belt (Spiriva Handihaler) 30 Puff/540 Mcg Aerp 1 CAP INH DAILY, INHALER Verapamil Hcl (Verapamil Hcl Er) 120 Mg Tab 120 MG PO HS for 30 Days, TAB Vitamin E (Vitamin E) 400 Unit Tab 800 INTER.UNIT PO DAILY Discontinued Medications: Prednisone Tab (Prednisone) 10 Mg Tab 15 MG PO DAILY, TAB Discharge Exam Patient feeling well in the morning on 09/22, no issues overnight, tolerating trilogy BIPAP on home settings. Eating well, moving bowels. Plan for HD on as typically scheduled. Breathing is stable, minimal cough. PT/OT cleared to go home with home therapy, CM to set up. Discussed discharge plan with patient and her , all questions answered. discussed specific plan for Novolog while on the Prednisone, plan set up by pharmacy. Review of Systems: Constitutional: + weakness, + fatigue, No fever, No chills, No sweats, No weight loss, No problem reported Eyes: No worsening of vision, No eye pain, No redness, No discharge, No diplopia, No problem reported ENT: No hearing loss, No unusual epistaxis, No nasal symptoms, No sore throat, No tinnitus, No dental problems, No trouble swallowing, No problem reported Respiratory: + dyspnea on exertion, No cough, No sputum, No wheezing, No shortness of breath, No dyspnea at rest, No hemoptysis, No problem reported Cardiovascular: No chest pain, No orthopnea, No PND, No edema, No claudication, No palpitations, No problem reported Abdomen: No pain, No nausea, No vomiting, No diarrhea, No constipation, No GI bleeding, No problem reported Musculoskeletal: + joint pain (right hip, feels better once she is moving), No muscle pain, No swelling, No calf pain, No problem reported Genitourinary - Female: No dysuria, No urinary frequency, No urinary urgency , No urinary incontinence, No urinary retention, No hematuria Neurologic: + weakness, No memory loss, No paralysis, No numbness/tingling, No vertigo, No balance problems, No problem reported Psychiatric: No depression symptoms, No anhedonism, No anxiety, No insomnia , No substance abuse, No problem reported Endocrine: No fatigue, No excessive thirst, No excessive urination, No problem reported Hematologic / Lymphatic: No abnormal bleeding/bruising, No clotting problems , No swollen lymph nodes, No night sweats, No problem reported Physical Exam: General Appearance: no apparent distress, + obese Eyes: normal inspection, EOMI, sclerae normal ENT: normal ENT inspection, hearing grossly normal, pharynx normal Neck: no adenopathy, no JVD, trachea midline, + pertinent finding (large neck) Respiratory/Chest: chest non-tender, no respiratory distress, no accessory muscle use, + decreased breath sounds Cardiovascular: regular rate, rhythm, no edema, no gallop, no JVD, no murmur , normal peripheral pulses Abdomen / GI: normal bowel sounds, non tender, soft, no organomegaly Extremities: normal inspection, no calf tenderness, normal capillary refill , normal range of motion, pelvis stable, + pedal edema 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: reel repairer II-XII nml as tested, no motor/sensory deficits , alert, normal mood/affect, normal reflexes, oriented x 3 Lymphatic: + pertinent finding (lara faces) Hospital Course 60 yo female admitted on 09/19/2016 with progressively worsening hand jerking and leg weakness with falls, increased lethargy, found to have hypercapnia on admission, felt to be the primary reason for her decline. She had stopped using her Trilogy BIPAP because it broke and she was only using nasal canula. She was in respiratory acidosis on admission and this was corrected with BIPAP use. Evaluated by pulmonology, initially though to have pneumonia but then antibiotics stopped. Prednisone increased to 40mg from 15mg that she had been taking due to suspected component of COPD exacerbation. Patient improved dramatically over several days, tolerated HD. Participated in therapy and approved to go home with home PT/OT. Patient and agreed with discharge plan. - Acute on chronic hypercapnic respiratory failure/obesity hypoventilation syndrome/MIKAYLA/COPD: acute component resolved with regular BIPAP use her home machine, trilogy BIPAP, was fixed and she was using without difficulty in the hospital last ABG showed that pH had normalized initially given antibiotics but with normal WBC, afebrile, no productive cough and no clear evidence of pneumonia on imaging, antibiotics stopped Prednisone 40mg, plan to taper by 5mg every 4 days continue nebulizers at home follow up closely with Emily Isaac in one week Frequent falls, likely secondary to deconditioning, weakness, jerkiness secondary to hypercapnia Head CT- Negative for any acute changes, continue PT/OT evaluations Tailbone pain and right-sided sciatica-exacerbated by recent falls. toenail avulsion and abrasion of second toe on the right Continue Lyrica for pain, Was on Keflex prior to admission as a prophylaxis, will resume Keflex Wound care consult CKD stage 5, secondary to diabetic nephropathy/hypertensive sclerosis- requiring HD Thursday. Has a PermCath on the right while left AV fistula is maturing Nephrology consulted, appreciate recommendations , continue current care Hypercalcemia- noted during previous admission: Stable - Serum free light chain ratio is elevated. UIEP was positive for IgG Bowers monoclonal protein during outpatient workup - Followed by Dr. Delong, pending further evaluation Cor pulmonale: Stable - Last echo 07/25/15: Hyperdynamic LV systolic function. Mild concentric LV hypertrophy. LV diastolic dysfunction. Mild RV dilatation and systolic dysfunction. Mild tricuspid regurgitation. Mildly elevated RV systolic pressure. Normal central venous pressure. Ejection Fraction = >70 % - Daily weights, I's and O's Chronic venous insufficiency: Elevate legs, TEDs HTN- CONTROLLED: Dyslipidemia: Lipitor 40 mg daily DM- HbA1c 6.3% on 05/20/16: hyperglycemia with Prednisone use plan outlined by pharmacy for increased Novolog dosing while on Prednisone Gout- ASYMPTOMATIC: Allopurinol 100 mg daily Peripheral neuropathy/chronic pain: - Pregabalin 75 mg BID Chronic suppressive therapy- follows w/ ID: Continue Doxycycline 100 mg daily The above condition is stable continue current care DVT Prophylaxis: Heparin Code Status: LEVEL I, FULL d/c to home with home PT/OT, use BIPAP, HD on 09/23 as typically scheduled Total Time Spent: Greater than 30 minutes This includes examination of the patient, discharge planning, medication reconciliation, and communication with other providers. Discharge Instructions Please refer to the electronic Patient Visit Report (Discharge Instructions) for additional information. Follow-Up HD on 09/23 Emily Isaac in one week Additional Copies To Emily Isaac, [email or web address]; Wolf Thompson D.O.
[2016-11-27] MEDS ORDERED: LDDP5 TD (13:39)
[2016-11-27] MEDS ORDERED: RXC5 PO (13:39)
[2016-11-27] MEDS ORDERED: LYR50 PO (13:39)
== END 2016-09-22 17:15 | disposition home health service (06) | DRG 189 ==
LOC: EDBD 09:20 → C.EDB 09:21 → C.2E 12:44 → ENRESERV 12:56 → EDBEDREQ 09-21 17:07 → ENRESERV 09-21 17:19 → C.4E 09-21 18:20 → CANBEDREQ 09-21 18:25
PROVIDERS: ADMIT Family Medicine; ATTEND Internal Medicine
PROC: 5A1D00Z (ICD-10-PCS; principal; 2016-09-20)
DX: J96.92 Respiratory failure, unspecified with hypercapnia (principal); N18.6 End stage renal disease; E66.2 Morbid (severe) obesity with alveolar hypoventilation; Z68.43 Body mass index [BMI] 50.0-59.9, adult; E87.2 Acidosis; I50.32 Chronic diastolic (congestive) heart failure; E87.4 Mixed disorder of acid-base balance; J96.01 Acute respiratory failure with hypoxia; J96.02 Acute respiratory failure with hypercapnia; D64.9 Anemia, unspecified; M19.90 Unspecified osteoarthritis, unspecified site; Z79.4 Long term (current) use of insulin; Z99.2 Dependence on renal dialysis; Z87.891 Personal history of nicotine dependence; E11.65 Type 2 diabetes mellitus with hyperglycemia

== ENCOUNTER 2016-11-11 10:18 | Inpatient (IN) | payer OTHER, BC ==
[2016-11-11] VITALS (28 sets, daily range): BP systolic 73–132; BP diastolic 42–84; PULSE 77–112; TEMP 36.6–37; O2SAT 84–100; BMI 55.0
[~2016-11-11] VITALS: Ht 162.6 cm; Wt 143.2 kg
[~2016-11-11 10:18] MED LIST changes: -CEPH500C PO; -PRED10TA PO
[2016-11-11 11:11] LABS: BASO % 0.3 %; BASO ABS # 0.04 K/uL (0-0.2); EOS % 1.6 %; HEMATOCRIT 35.2 % (37-47); IG% 1.6 %; LYMPH % 11.1 %; LYMPH ABS # 1.28 K/uL (1.2-3.4); MEAN CELL VOLUME 107.3 fL (80-100); MEAN CORPUSCULAR HEMOGLOBIN 31.7 pg (25-34); MEAN CORPUSCULAR HGB CONC 29.5 g/dl (32-36); MEAN PLATELET VOLUME 10.7 fL (7.4-10.4); NEUT % 76.4 %; PLATELET COUNT 215 K/uL (130-400); RED BLOOD COUNT 3.28 M/uL (4.2-5.4); WHITE BLOOD COUNT 11.53 K/uL (4.8-10.8)
--- NOTE | 2016-11-11 11:16 | DIAGNOSTIC IMAGING REPORT ---
CHEST ONE VIEW PORTABLE CLINICAL HISTORY: weakness dyspnea COMPARISON STUDY: 09/20/2016 FINDINGS: PermCath in superior vena cava. Mild cardiomegaly. Parenchymal infiltrate right base. Pulmonary vascular congestion. IMPRESSION: Parenchymal infiltrate right base. Pulmonary vascular congestion. Mild cardiomegaly. The above report was generated using voice recognition software. It may contain grammatical, syntax or spelling errors. Electronically signed by: Mateo Bone M.D. 11/11/2016 11:15 AM Dictated Date/Time: 11/11/2016 11:15 AM
[2016-11-11 11:33] LABS: ALB/GLOB RATIO 0.5 (0.9-2); BUN/CREATININE RATIO 7.6 (10-20); CALCIUM 8.9 mg/dl (8.5-10.1); CKMB/CK RATIO 5.9 (0-3.0); POTASSIUM 4.8 mmol/L (3.5-5.1)
[2016-11-11 11:35] LABS: ANISOCYTOSIS PRESENT; COMPLETE YES; POIKILOCYTOSIS PRESENT
[2016-11-11] MEDS ORDERED: HYDROmorphone INJ 0.5 MG/0.5 ML SYR IV STA (11:44)
[2016-11-11] MEDS ORDERED: ACETAMINOPHEN 325 MG TAB PO STA (11:44)
[2016-11-11] MEDS ORDERED: METOCLOPRAMIDE HCL INJ 5 MG/ML 2 ML VIAL IV STA (12:04)
[2016-11-11] MEDS ORDERED: MAGNESIUM SULFATE 1GM / D5W 1 GM BAG IV STA (12:04)
--- NOTE | 2016-11-11 12:33 | EMERGENCY ROOM VISIT NOTE ---
History Report prepared by [place]: Dewyane Chakraborty Under the Supervision of: Dr. Abrahan Guadalupe M.D. First contact with patient: 10:58 Chief Complaint: HEADACHE Stated Complaint: ILLNESS History of Present Illness The patient is a 60 year old white female with a past medical history of pulmonary hypertension, GUNNAR, dialysis, hemorrhoids, and cellulitis, who presents to the ED with a cc of a worsening headache beginning a week ago Positive neck pain, shaky, unstable, leg redness. Negative congestion. The patient is on doxycycline, and that last time she saw wound care was a long time ago. The patient is chronically on 2-3L of oxygen at home, and she uses a non-invasive ventilator at night, though she used it more yesterday. She sues a walker to walk. The patient has additionally fallen twice in the past week and a half, though she did not hit her head. Source of History: patient, family Onset: a week ago Position: head Timing: worsening Associated Symptoms: + neck pain Note: Associated symptoms: shaky, unstable, and leg redness Review of Systems See HPI for pertinent positives and negatives. A total of ten systems were reviewed and were otherwise negative. Past Medical & Surgical Medical Problems: (1) Abdominal wall cellulitis (2) Abdominal wall cellulitis (3) Abrasion of toe of right foot (4) acidosis, cO2 retension, AMS (5) Acute hypercapnic respiratory failure (6) Acute kidney injury (7) Acute on chronic diastolic (congestive) heart failure (8) Acute respiratory failure with hypoxia and hypercapnia (9) Anemia (10) Arthritis (11) Asymptomatic bacteriuria (12) Cellulitis of abdominal wall (13) Cellulitis of leg (14) Cervical Disc Degen (15) CHF (congestive heart failure) (16) Chronic kidney disease (CKD) stage G3b/A1, moderately decreased glomerular filtration rate (GFR) between 30-44 mL/min/1.73 square meter and albuminuria creatinine ratio less than 30 mg/g (17) CO2 narcosis (18) COPD (chronic obstructive pulmonary disease) (19) Cor pulmonale, chronic (20) Cystitis (21) Diab Mariama Wo Compl, Type Ii Or Unspec Type, Uncontrolled (22) Diabetes (23) Edema (24) ESRD on hemodialysis (25) Frequent falls (26) Hypercalcemia (27) Hypercalcemia (28) Hypercapnic respiratory failure (29) Hyperkalemia (30) Hyperphosphatemia (31) Hypokalemia (32) Hyponatremia (33) Metabolic alkalosis (34) Metabolic alkalosis with respiratory acidosis (35) Metabolic encephalopathy (36) Morbid obesity with BMI of 50.0-59.9, adult (37) Obesity hypoventilation syndrome (38) Obesity hypoventilation syndrome (39) Ovarian Cyst Nec/Nos (40) Pulmonary Collapse (41) Pulmonary nodules (42) Renal failure (ARF), acute on chronic (43) Sciatica (44) Venous stasis dermatitis of both lower extremities (45) Weakness Family History Cancer Diabetes mellitus Gallbladder disease Heart disease Lung disease Social History Smoking Status: Former Smoker Drug Use: none Marital Status: Housing Status: lives with family Occupation Status: unemployed Current/Historical Medications Scheduled Allopurinol (Zyloprim), 100 MG PO DAILY Ascorbic Acid (Vitamin C 500 mg), 1,000 MG PO DAILY Atorvastatin (Lipitor), 40 MG PO DAILY B-Complex W/ C & Folic Acid (Renal), 1 CAP PO QAM Calcium Acetate (Phosphate Bin (Phoslo 667 Mg), 667 MG PO ACHS Cholecalciferol (Vitamin D3), 1,000 INTER.UNIT PO DAILY Doxycycline Monohydrate (Monodox), 100 MG PO DAILY Famotidine (Famotidine), 20 MG PO DAILY Fluticasone Prop/Salmeterol (Advair Diskus 500/50 60 Dose), 1 PUFF INH BID Home O2 Therapy (Oxygen), 3 LITERS NA CONTINOUS Insulin Aspart (Novolog Flexpen), 50 UNITS SQ W/BREAKFAST Insulin Aspart (Novolog Flexpen), 50 UNITS SQ W/LUNCH Insulin Aspart (Novolog Flexpen), 90 UNITS SQ W/SUPPER Insulin Glargine (Toujeo Solostar), 70 UNITS SC TID Metoprolol Succ (Toprol Xl) (Toprol-Xl ), 150 MG PO UD Multiple Vitamins W/ Minerals (One Daily For Women), 1 TAB PO DAILY Pantoprazole (Protonix), 40 MG PO DAILY Pregabalin (Lyrica), 75 MG PO BID Pyridoxine (Vitamin B6), 200 MG PO DAILY Silver Sulfadiazine (Silvadene), 1 APPLN TOP DAILY Tiotropium [place] (Spiriva Handihaler), 1 CAP INH DAILY Vitamin E (Vitamin E), 800 INTER.UNIT PO DAILY Scheduled PRN Hydrocodone/Acetaminophen 5MG/325MG ([place] 5MG/325MG), 1 TAB PO Q6H PRN for Pain Insulin Aspart (Novolog Flexpen), 40 UNITS SQ HS PRN for Late Night Snack Ipratropium-Albuterol (Duoneb), 1 TREATMENT INH Q6H PRN for SOB/Wheezing Allergies Coded Allergies: Daptomycin (Verified Allergy, Mild, HIVES, 11/11/16) itching Iodine (Verified Allergy, Unknown, 11/11/16) Shellfish (Verified Allergy, Unknown, 11/11/16) Sulfamethoxazole w/Trimethoprim (Verified Allergy, Unknown, RASH, 11/11/16) Codeine (Verified Adverse Reaction, Unknown, NAUSEA, 11/11/16) has tolerated morphine Uncoded Allergies: kristina wipes (Allergy, Severe, red rash, excoriation, 09/19/16) comfort baths (Adverse Reaction, Severe, rash, "breaks out all over", ) Physical Exam Vital Signs Date Time Temp Pulse Resp B/P (MAP) Pulse Ox O2 Delivery O2 Flow Rate FiO2 11/11/16 15:07 88 16 134/66 96 Room Air 11/11/16 14:28 87 11/11/16 14:13 92 95 35 11/11/16 13:43 88 18 117/57 92 Nasal Cannula 3.0 11/11/16 12:00 85 22 128/51 96 Nasal Cannula 3.0 11/11/16 10:31 36.7 79 20 114/57 96 Room Air 11/11/16 10:26 80 Physical Exam GENERAL: Awake, alert, cushingoid appearance, NAD HENT: Normocephalic, atraumatic. EYES: Pupils are round and reactive to light. Visual acuity is grossly normal with 20/30 in the left eye and 20/40 in the right eye. No visual field deficits. NECK: Supple. No nuchal rigidity. FROM. RESPIRATORY: Diminished lung sounds secondary to body habitus. CTAB, no rhonchi , wheezing, crackles CARDIAC: RRR, no MRG ABDOMEN: Soft, NTND, BS+ RECTAL: One external non-thrombosed hemorrhoid. No evidence of rectal prolapse. MSK: Chronic bilateral LE swelling, erythema, and calor. No chest wall TTP NEURO: GCS 15, CN 2-12 intact, moves all 4s on command SKIN: No rash or jaundice noted. Medical Decision & Procedures ER Provider Diagnostic Interpretation: Radiology results as stated below per my review and radiologist interpretation: CHEST ONE VIEW PORTABLE CLINICAL HISTORY: weakness dyspnea COMPARISON STUDY: 09/20/2016 FINDINGS: PermCath in superior vena cava. Mild cardiomegaly. Parenchymal infiltrate right base. Pulmonary vascular congestion. IMPRESSION: Parenchymal infiltrate right base. Pulmonary vascular congestion. Mild cardiomegaly. The above report was generated using voice recognition software. It may contain grammatical, syntax or spelling errors. Electronically signed by: Mateo Bone M.D. 11/11/2016 11:15 AM Dictated Date/Time: 11/11/2016 11:[address] HEAD WITHOUT CONTRAST (CT) CLINICAL HISTORY: Severe headache. Change in mental status. Unsteady gait. Frequent falls. Revision. COMPARISON STUDY: 09/19/2016 TECHNIQUE: Axial CT of the brain is performed from the vertex to the skull base. IV contrast was not administered for this examination. A dose lowering technique was utilized adhering to the principles of ALARA. CT DOSE: 709.48 mGy.cm FINDINGS: No intra or extra-axial mass lesions are visualized. There is no CT evidence of acute cortical infarction. There is no evidence of midline shift. There is no acute hemorrhage. No calvarial fractures are visualized. There are minor white matter hypodensities likely on a small vessel basis. There is no evidence of pathologic ventricular dilatation. There is no evidence of acute sinusitis IMPRESSION: No acute intracranial findings Electronically signed by: Trung Diallo M.D. 11/11/2016 1:31 PM Dictated Date/Time: 11/11/2016 1:30 PM Laboratory Results 11/11/16 10:35 Red Blood Count 3.28, Mean Corpuscular Volume 107.3, Mean Corpuscular Hemoglobin 31.7, Mean Corpuscular Hemoglobin Concent 29.5, Mean Platelet Volume 10.7, Neutrophils (%) (Auto) 76.4, Lymphocytes (%) (Auto) 11.1, Monocytes (%) ( Auto) 9.0, Eosinophils (%) (Auto) 1.6, Basophils (%) (Auto) 0.3, Neutrophils # ( Auto) 8.80, Lymphocytes # (Auto) 1.28, Monocytes # (Auto) 1.04, Eosinophils # ( Auto) 0.19, Basophils # (Auto) 0.04 11/11/16 10:35 Test 11/11/16 10:35 11/11/16 11:07 White Blood Count 11.53 K/uL (4.8-10.8) Red Blood Count 3.28 M/uL (4.2-5.4) Hemoglobin 10.4 g/dL (12.0-16.0) Hematocrit 35.2 % (37-47) Mean Corpuscular Volume 107.3 fL (80-100) Mean Corpuscular Hemoglobin 31.7 pg (25-34) Mean Corpuscular Hemoglobin Concent 29.5 g/dl (32-36) Platelet Count 215 K/uL (130-400) Mean Platelet Volume 10.7 fL (7.4-10.4) Neutrophils (%) (Auto) 76.4 % Lymphocytes (%) (Auto) 11.1 % Monocytes (%) (Auto) 9.0 % Eosinophils (%) (Auto) 1.6 % Basophils (%) (Auto) 0.3 % Neutrophils # (Auto) 8.80 K/uL (1.4-6.5) Lymphocytes # (Auto) 1.28 K/uL (1.2-3.4) Monocytes # (Auto) 1.04 K/uL (0.11-0.59) Eosinophils # (Auto) 0.19 K/uL (0-0.5) Basophils # (Auto) 0.04 K/uL (0-0.2) RDW Standard Deviation 83.2 fL (36.4-46.3) RDW Coefficient of Variation 21.8 % (11.5-14.5) Immature Granulocyte % (Auto) 1.6 % Immature Granulocyte # (Auto) 0.18 K/uL (0.00-0.02) Nucleated RBC Absolute Count (auto) 0.57 K/uL (0-0) Nucleated Red Blood Cells % 4.9 % Poikilocytosis PRESENT Anisocytosis PRESENT Macrocytosis PRESENT Erythrocyte Sedimentation Rate 55 mm/hr (0-21) Anion Gap 7.0 mmol/L (3-11) Est Creatinine Clear Calc Drug Dose 8.4 ml/min Estimated GFR () 4.3 Estimated GFR (Non- 3.7 BUN/Creatinine Ratio 7.6 (10-20) Calcium Level 8.9 mg/dl (8.5-10.1) Total Bilirubin 0.3 mg/dl (0.2-1) Aspartate Amino Transf (AST/SGOT) 17 U/L (15-37) Alanine Aminotransferase (ALT/SGPT) 38 U/L (12-78) Alkaline Phosphatase 88 U/L (45-117) Total Creatine Kinase 39 U/L (26-192) Creatine Kinase MB 2.3 ng/ml (0.5-3.6) Creatine Kinase MB Ratio 5.9 (0-3.0) C-Reactive Protein 2.10 mg/dl (0-0.29) Total Protein 8.6 gm/dl (6.4-8.2) Albumin 3.0 gm/dl (3.4-5.0) Globulin 5.6 gm/dl (2.5-4.0) Albumin/Globulin Ratio 0.5 (0.9-2) Bedside Troponin I 0.030 ng/ml (0-0.045) Laboratory results reviewed by me Medications Administered Medications (Trade) Dose Ordered Sig/Duyen Route Start Time Stop Time Status Last Admin Dose Admin Acetaminophen (Tylenol Tab) 650 mg NOW STAT PO 11/11/16 11:44 11/11/16 11:45 DC 11/11/16 11:59 650 MG Hydromorphone HCl (Dilaudid Inj) 0.5 mg NOW STAT IV 11/11/16 11:44 11/11/16 11:46 DC 11/11/16 11:59 0.5 MG Magnesium Sulfate (Magnesium Sulfate) 1 gm NOW STAT IV 11/11/16 12:04 11/11/16 12:06 DC 11/11/16 12:41 1 GM Metoclopramide HCl (Reglan Inj) 10 mg NOW STAT IV 11/11/16 12:04 11/11/16 12:06 DC 11/11/16 12:42 10 MG Morphine Sulfate (MoRPHine SULFATE INJ) 2 mg NOW STAT IV 11/11/16 14:39 11/11/16 14:41 DC 11/11/16 15:05 2 MG ECG Indication: other (headache) Rate (beats per minute): 80 Rhythm: normal sinus Findings: other (Normal intervals, no STS changes, no TWI) ED Course 1126: The patient was evaluated in room A10. A complete history and physical exam was performed. 1357: [facility], and he recommends talking with the intensivists. 1536: Discussed the patient's case with Dr. Beasley, Consumer Relations Complaint Clerk. The patient will be evaluated for further treatment and disposition. Medical Decision The patient is a 60 year old white female with a past medical history of pulmonary hypertension, GUNNAR, dialysis, hemorrhoids, and cellulitis, who presents to the ED with a cc of a worsening headache beginning a week ago Positive neck pain, shaky, unstable, leg redness. Negative congestion. Triage Nursing notes reviewed. The patient's presentation and history were concerning for hypercapnic narcosis , ICH, migraine headache, hyperuremia. Patient was seen and evaluated at the bedside. Patient was noted to be wearing nasal cannula but was at her baseline. Patient did have a chest x-ray and labwork completed. Patient's chest x-ray did not show any overt pulmonary edema. Patient also did not have any consolidation. Patient did complain of some blurry vision however patient did have fairly normal vision she was 20/40 and 20/30 in each eye. Patient had negative CT of the brain. Patient was noted to have an elevated CO2 with associated acidosis. Patient did have a repeat VBG showed worsening acidosis and hypercapnia. Decision was made to keep the patient in the ICU. Patient was admitted for further testing workup. Patient did have a history of bilateral lower extremity cellulitis and it been persistently on doxycycline. Patient did not seem uncared sometime. No impaired in her buttocks were started as patient not have an elevated white count, no fever, and her LEs were not overly warm or asymmetric. Medication Reconcilliation Current Medication List: was personally reviewed by or Blood Pressure Screening Patient's blood pressure: Elevated blood pressure Managed by the adhesive bandage making operator Consults Time Called: 1350 Consulting Physician[facility] Returned Call: 1357 I discussed the patient's case with [facility], and he recommends talking with the intensivists. Additional Consults: Time Called: 1402 Consulted Physician: Dr. Beasley, Consumer Relations Complaint Clerk Returned Call: [phone] Additional Comments: Discussed the patient's case with Dr. Beasley, Consumer Relations Complaint Clerk. The patient will be evaluated for further treatment and disposition. Impression Primary Impression: Acute hypercapnic respiratory failure Additional Impression: Respiratory acidosis Critical Care I have personally spent greater than 43 minutes of critical care time in the direct management of this patient. This includes bedside care, interpretation of diagnostic studies, and testing, discussion with consultants, patient, and family members, and other required patient management activities. This 43 minutes is in excess of all separately billable procedures. Scribe Attestation The scribe's documentation has been prepared under my direction and personally reviewed by me in its entirety. I confirm that the note above accurately reflects all work, treatment, procedures, and medical decision making performed by me. Departure Information Dispostion Other (Being evaluated by adhesive bandage making operator) Referrals Emily Isaac, KatarinaN.P (PCP) Patient Instructions My [facility] Problem Qualifiers
[2016-11-11] MEDS ORDERED: SILV1CRE73 TOP (12:49)
[2016-11-11 12:58] LABS: VEN BLD GAS O2 SATURATION 73.7 %; VEN BLOOD GAS BASE EXCESS -5.4 mEq/L
[2016-11-11] MEDS ORDERED: DOXY100C76 PO (13:20)
--- NOTE | 2016-11-11 13:32 | DIAGNOSTIC IMAGING REPORT ---
CT HEAD WITHOUT CONTRAST (CT) CLINICAL HISTORY: Severe headache. Change in mental status. Unsteady gait. Frequent falls. Revision. COMPARISON STUDY: 09/19/2016 TECHNIQUE: Axial CT of the brain is performed from the vertex to the skull base. IV contrast was not administered for this examination. A dose lowering technique was utilized adhering to the principles of ALARA. CT DOSE: 709.48 mGy.cm FINDINGS: No intra or extra-axial mass lesions are visualized. There is no CT evidence of acute cortical infarction. There is no evidence of midline shift. There is no acute hemorrhage. No calvarial fractures are visualized. There are minor white matter hypodensities likely on a small vessel basis. There is no evidence of pathologic ventricular dilatation. There is no evidence of acute sinusitis IMPRESSION: No acute intracranial findings Electronically signed by: Trung Diallo M.D. 11/11/2016 1:31 PM Dictated Date/Time: 11/11/2016 1:30 PM
[2016-11-11] MEDS ORDERED: MoRPHine SULFATE 2 MG/ML CARP IV STA (14:39)
--- NOTE | 2016-11-11 15:28 | Nephrology Consultation ---
Nephrology Consultation Date & Providers Date of Consultation: Nov 11, 2016. Primary Care Provider: Emily Isaac C.R.N.P Referring Provider: Reason for Consultation ESRD requiring HD History of Present Illness Mrs. Gaytan is a 60 year old white female who is seen at the request of Dr. Krishna to provide inpatient HD. Medical records in the hospital EMR have been reviewed and are summarized as follows: Mrs. Gaytan has ESRD due to cardiorenal syndrome. She dialyzes at [facility] (4.5hr F-180NR Qb300 Qd A1.5 3K 2.5 Ca EDW 137.7 kg Heparin 2000 load w/ 1000 units hourly). Her medical history is also significant for morbid obesity w/ BMI 56, obesity hypoventilation syndrome, COPD, stable lung nodule, AODM, chronic LE edema and MGUS. Mrs. Gaytan has had several recent hospitalizations for hypercarbia. Sedatives have been discontinued and patient has been started on NIPPV. Her reports that she has been compliant with her NIPPV use. She has been using it 10 hours each night. This morning she stopped CPAP/BiPAP at 6 am in preparation for IHD. By 9 am she had become lethargic and weak. She suffered a near syncopal event. Her helped her to the floor and called 911. In the ED patient was found to have vBG w/ pH 7.14. Blood gas revealed a pure respiratory acidosis w/ CO2 75 and HCO3 25. CXR reveals a possible RLL infiltrate. Patient was also noted to have bilateral LE cellulitis. Past Medical/Surgical History Medical: # ESRD on HD # HTN # AODM # Obesity (BMI 56) # COPD - on chronic O2 at 3 L/min ATC # Obesity hypoventilation syndrome -- followed by pulmonology and maintained on intermittent BIPAP # Lung nodule - stable over several years of observation by pulmonology # Arthritis # Chronic lower extremity edema due to obesity hypoventilation syndrome/ pulmonary hypertension. Managed with PT for lymphedema, diuretics and hemodialysis. Echocardiogram October 2014 revealed LVEF 55 - 60%, mild LVH, RVSP 45, mild RV dilation and moderate TR # Serum monoclonal light chain - monitored by Dr. Delong # History of hypercalcemia - also monitored Surgical: # IJ THC placement 07/25/16 # L antecubital AVF created 08/19/[address] Simoni Allergies Coded Allergies: Daptomycin (Verified Allergy, Mild, HIVES, 11/11/16) itching Iodine (Verified Allergy, Unknown, 11/11/16) Shellfish (Verified Allergy, Unknown, 11/11/16) Sulfamethoxazole w/Trimethoprim (Verified Allergy, Unknown, RASH, 11/11/16) Codeine (Verified Adverse Reaction, Unknown, NAUSEA, 11/11/16) has tolerated morphine Uncoded Allergies: kristina wipes (Allergy, Severe, red rash, excoriation, 09/19/16) Family History Cancer Diabetes mellitus Gallbladder disease Heart disease Lung disease Negative for CKD / ESRD Social History Smoking Status: Former Smoker Drug Use: none Marital Status: Housing Status: lives with family Occupation: unemployed . Lives at home. Former smoker Review of Systems Patient unable to provide ROS due to NIPPV Physical Exam Date Time Temp Pulse Resp B/P (MAP) Pulse Ox O2 Delivery O2 Flow Rate FiO2 11/11/16 15:07 88 16 134/66 96 Room Air 11/11/16 14:28 87 11/11/16 14:13 92 95 35 11/11/16 13:43 88 18 117/57 92 Nasal Cannula 3.0 11/11/16 12:00 85 22 128/51 96 Nasal Cannula 3.0 11/11/16 10:31 36.7 79 20 114/57 96 Room Air 11/11/16 10:26 80 General Appearance: + obese (chronically ill appearing) Head: normocephalic, atraumatic Eyes: PERRL, EOMI Neck: + pertinent finding (short, thick. Unable to appreciate JVD) Respiratory/Chest: + crackles (anteriorly. Patient could not sit forward for evaluation of posterior lung rain) Cardiovascular: regular rate, rhythm Abdomen/GI: non tender, soft (obese) Genitourinary - Female: + pertinent finding (erythema extending from the ankles to upper calves bilaterally. Patient w/ dry cracked skin on both heels) Extremities/Musculoskelatal: + pertinent finding (trace pretibial edema) Neurologic/Psych: + pertinent finding (lethargic but opens eyes to command and answers simple "yes / no" questions) Skin: warm/dry Laboratory Results Last 24 Hours Test 11/11/16 10:35 11/11/16 11:07 11/11/16 12:38 9/12/17 15:11 White Blood Count 11.53 K/uL Red Blood Count 3.28 M/uL Hemoglobin 10.4 g/dL Hematocrit 35.2 % Mean Corpuscular Volume 107.3 fL Mean Corpuscular Hemoglobin 31.7 pg Mean Corpuscular Hemoglobin Concent 29.5 g/dl Platelet Count 215 K/uL Mean Platelet Volume 10.7 fL Neutrophils (%) (Auto) 76.4 % Lymphocytes (%) (Auto) 11.1 % Monocytes (%) (Auto) 9.0 % Eosinophils (%) (Auto) 1.6 % Basophils (%) (Auto) 0.3 % Neutrophils # (Auto) 8.80 K/uL Lymphocytes # (Auto) 1.28 K/uL Monocytes # (Auto) 1.04 K/uL Eosinophils # (Auto) 0.19 K/uL Basophils # (Auto) 0.04 K/uL RDW Standard Deviation 83.2 fL RDW Coefficient of Variation 21.8 % Immature Granulocyte % (Auto) 1.6 % Immature Granulocyte # (Auto) 0.18 K/uL Nucleated RBC Absolute Count (auto) 0.57 K/uL Nucleated Red Blood Cells % 4.9 % Poikilocytosis PRESENT Anisocytosis PRESENT Macrocytosis PRESENT Sodium Level 134 mmol/L Potassium Level 4.8 mmol/L Chloride Level 101 mmol/L Carbon Dioxide Level 26 mmol/L Anion Gap 7.0 mmol/L Blood Urea Nitrogen 76 mg/dl Creatinine 10.00 mg/dl Est Creatinine Clear Calc Drug Dose 8.4 ml/min Estimated GFR () 4.3 Estimated GFR (Non- 3.7 BUN/Creatinine Ratio 7.6 Random Glucose 137 mg/dl Calcium Level 8.9 mg/dl Total Bilirubin 0.3 mg/dl Aspartate Amino Transf (AST/SGOT) 17 U/L Alanine Aminotransferase (ALT/SGPT) 38 U/L Alkaline Phosphatase 88 U/L Total Creatine Kinase 39 U/L Creatine Kinase MB 2.3 ng/ml Creatine Kinase MB Ratio 5.9 Total Protein 8.6 gm/dl Albumin 3.0 gm/dl Globulin 5.6 gm/dl Albumin/Globulin Ratio 0.5 Bedside Troponin I 0.030 ng/ml Venous Blood pH 7.14 Venous Blood Partial Pressure CO2 75 mmHg Venous Blood Partial Pressure O2 49 mmHg Venous Blood HCO3 25 mmol/L Venous Blood Oxygen Saturation 73.7 % Venous Blood Base Excess -5.4 mEq/L Impression (1) ESRD on hemodialysis (2) Hypercapnic respiratory failure (3) Obesity hypoventilation syndrome (4) Cellulitis of leg Mrs. Gaytan presents w/ recurrent hypercapnic respiratory failure despite adherence to NIPPV at home. Her CXR is concerning for a RLL infiltrate. Patient has dry cracked skin on her feet and bilateral LE cellulitis. She has ESRD due to cardiorenal syndrome and requires TTS HD (4.5hr F-180NR Qb300 Qd A1.5 3K 2.5 Ca EDW 137.7 kg Heparin 2000 load w/ 1000 units hourly). She has not yet HD today. BUN is markedly elevated but other electrolytes including serum bicarbonate are currently acceptable. Recommendations END STAGE RENAL DISEASE: -- Will provide HD today according to outpatient orders. HD RN called and notified of need for HD. Orders entered into the EMR -- IJ THC placed 07/25/16. L upper arm AVF created 08/19/[address] Thapa. AVF has + bruit but venous limb is too deep for use. Once condition stabilizes patient will require Vascular Surgery evaluation for possible transposition of the venous limb of her AVF -- Will reduce Lyrica to 50 mg daily given after dialysis on dialysis days to adjust for ESRD HYPERTENSION: -- Blood pressure is relatively low. Will limit UF on HD today ANEMIA: -- Will provide SAMARA w/ HD ID: -- Patient has a RLL infiltrate and LE cellulitis. Recommend obtaining blood cultures and starting empiric broad spectrum antibiotics PULM: -- VBG shows a profound respiratory acidosis. Patient has had several hospitalizations for recurrent hypercapnia. Her indicates that she has been compliant w/ NIPPV at home. Recommend consultation w/ Pulmonology
[2016-11-11] MEDS ORDERED: INSULIN ASPART 100 UNITS/ML 3 ML PEN SQ PRN (15:30)
[2016-11-11 15:57] LABS: VEN BLOOD GAS BASE EXCESS -6.3 mEq/L; VENOUS BLOOD GAS PCO2 79 mmHg (38.0-50.0); VENOUS BLOOD GAS PO2 34 mmHg
[2016-11-11 15:58] LABS: VEN BLD GAS O2 SATURATION < 60.0 %
--- NOTE | 2016-11-11 15:59 | History and Physical ---
History & Physical Date of Service Nov 11, 2016. History & Physical hypoxia,. acidosis, cellulitis, ams, possible sepsis
[2016-11-11] MEDS ORDERED: PHARMACY GLYCEMIC MGMT CONSULT PRN (16:00)
[2016-11-11] MEDS ORDERED: VANCOMYCIN CONSULT ACTIVE SCH (16:25)
[2016-11-11] MEDS ORDERED: PIPERACILL/TAZOBAC IV 4.5 GM in DEXTROSE 5% 100ML IV SCH (16:30)
[2016-11-11] MEDS ORDERED: PIPERACILL/TAZOBAC CONSULT ACTIVE SCH (16:30)
--- NOTE | 2016-11-11 16:42 | HISTORY & PHYSICAL EXAMINATION ---
DATE OF ADMISSION: 11/11/2016 This is a level 3 inpatient admission, 40 minutes. CHIEF COMPLAINT: Altered mental status, hypoxic and worsening lower extremity red. HISTORY OF PRESENT ILLNESS: The patient is a 60-year-old white female with a significant past medical history of end-stage renal disease on dialysis, bilateral lower extremity cellulitis, morbid obesity, acute on chronic respiratory failure, hypoxic and hypercapnic, history of CHF, COPD, CO2 narcosis, diabetic, morbid obesity, comes to the hospital Emergency Department because of the above chief complaint. The information was obtained from ED physician and patient's . The patient was having some confused on BiPAP machine. The patient has been having worsening headache for a week associated with neck pain, shaky and unstable. also reported more redness in the abimael lower extremities. General condition has been getting worse every day, in recent along week, getting worse today associated with mental status changes. She is more confused. The patient has been on doxycycline for lower extremity cellulitis, however it comes and goes. She used to be on oxygen 2-3 liters at home. At nighttime she using CPAP because of sleep apnea and morbid obesity. She was using 10 hours last night for the CPAP machine, her mental status still getting worse. She had falls recently twice in the past week, but she did not hit her head per report from . said he is very dedicated and most of the time was with her. The patient has end-stage renal disease. During the previous dialysis, she was doing fairly okay. Has been on hemodialysis for refractory volume overload. When I interviewed with the patient, she was on the BiPAP machine, awakable, however only minimal open eyes, nodding head. Not really conversational. No fever or chill. No chest pain, palpitations. Lower extremity erythema is getting worse. No obvious edema. There were no open wounds in the lower extremity. No nausea, vomiting. Otherwise, review of system is limited. In the Emergency Room, they started BiPAP machine. PAST MEDICAL HISTORY: 1. Like I mentioned in the above, end-stage renal disease on dialysis, hypertension, diabetic, morbid obesity, COPD, home O2 dependent, has obesity hypoventilation syndrome. Follow up with consulting intern and need BiPAP machine, has lung nodules 2. Arthritis. 3. Chronic lower extremity edema. 4. Monoclonal light chain monitored by Dr. Delong. 5. History of hypercalcemia. PAST SURGICAL HISTORY: Include left antecubital AV fistula created by Dr. Thapa in July 2016. ALLERGIES: ALLERGY TO DAPTO, IODINE, SHELL FISH, BACTRIM, CODEINE. FAMILY HISTORY: Include cancer, diabetic, gallbladder disease, heart disease, lung disease. SOCIAL HISTORY: Former smoker. Denied illicit drug abuse. Lives with , is , is unemployed. REVIEW OF SYSTEMS: Please see HPI, otherwise 14-point organ system review were negative. PHYSICAL EXAMINATION: VITAL SIGNS: Temperature is 36.7, pulse 79, respiration rate 20, blood pressure 140/57, pulse ox was 96% on room air. She is on BiPAP, FiO2 35%. GENERAL: The patient is a white female with morbid obesity, confused, responds to questions, minimal open eyes. No conversational. HEAD: Normocephalic. EYES: Pupils equal, round responds to light. EARS: Ear was normal. NOSE: Normal. NECK: Supple. Thyroid no enlargement. Trachea midline. HEART: Regular rhythm. S1, S2. LUNGS: Significant decreased breathing sounds. There was no obvious wheezing. ABDOMEN: Morbid obesity, nontender. Bowel sound was positive. Bilateral CVA was nontender. LOWER EXTREMITIES: 1+ edema. There were no open wounds, but lower extremity was erythema and red, mild hot and reported possible getting worse. NEUROLOGICAL EVALUATION: The patient is lethargic, confused. No obvious deficits. Moves upper and lower extremities. LABORATORY STUDIES: WBC 11, hemoglobin 10, platelet 215. Neutrophil was 76%. VBG: pH 7.14, pCO2 75, PO2 49, bicarb 25. BMP: Sodium 134, potassium 4.8, BUN 76, creatinine 10. Calcium 8.9. Liver function test was within normal limits. Cardiac enzyme, troponin was negative x1. Albumin 3.0. IMAGING STUDIES: Head CT studies, no acute intracranial findings. Chest x-ray evaluations, there was parenchymal infiltration in the right base. There was pulmonary vascular congestions, mild cardiomegaly. EKG studies were done in the Emergency Room, it was normal sinus rhythm, heart rate at 80 beats per minute. ASSESSMENT AND PLAN: A 60-year-old white female with the conditions see below: 1. Acute respiratory distress. 2. Acidosis, likely because of hypoxic pulmonary disease. 3. End-stage renal disease on dialysis, possible fluid overload. 4. Possible recurrent bilateral lower extremity cellulitis. 5. Possible mild sepsis. 6. History of end-stage renal disease on dialysis. 7. Diabetic, insulin-dependent. 8. Morbid obesity. 9. Chronic respiratory failure with O2 dependent. 10. Morbid obesity. 11. Obesity hypoventilation syndrome. 12. Arthritis. 13. History of hypercalcemia. PLAN: 1. The patient obvious has mental status changes associated with hypoxic acidosis, mental status changes and possible worsening lower extremity cellulitis. Therefore, possible has sepsis. Sepsis also can contribute to worsening mental status changes and respiratory distress. Because the patient has significant low pH value which possible and very likely is respiratory conditions causing the problem. She has a significant history of hypoventilation syndrome and hypoxic and hypercapnic failure , morbid obesity. I am having cotton breeder evaluation for the ICU admission for now. At the same time, I will request nephrology evaluation because the patient is due for the dialysis today. Although the chemicals in the lab studies is not remarkable; however BUN 76, creatinine 10. We can start renal diet if she is more wake up 2. Possible sepsis, start broad-spectrum antibiotic with vanco and Zosyn for now because of obvious source of possible worsening infection in bilateral lower extremity for the cellulitis. Other factors indicate patient has possible sepsis including mental status changes and worsening sob/hypoxic. I sent a blood culture, UA and urine culture and for now, will cover with broad spectrum antibiotics . 3. will continue BiPAP machine. Nebulizer treatment, O2 support. Will watch respiratory rate and lab results. We will repeat VBG studies. Possible need to repeat a chest x-ray to define if there is real pneumonia or not. I did order ESR, CRP and procalcitonin level as well which will help to make judgment if patient has sepsis or not. 4 . Insulin-dependent diabetic. We will check hemoglobin A1c. Continue home dose of Glargine insulin. We will start insulin sliding scale. Request pharmacy for blood glucose management. 5. will continue home medicine of famotidine and Protonix for history of GERD, which also in cover for the GI prophylaxis. 6. chronic lower back pain. Will continue the current medication of hydrocodone/acetaminophen for pain control as needed. I am okay to give Dilaudid 1 mg q. 8 hours as needed for the severe lower back pain. 4. GI and DVT prophylaxis is covered. I discussed with about patient's current conditions, it could be the prognosis is very guarded. full code. MTDD
--- NOTE | 2016-11-11 16:44 | Critical Care Consultation ---
Critical Care Consultation Date of Consultation: Nov 11, 2016. Attending Physician: Dr. Beasley Reason for Consultation: Headache History of Present Illness The patient is a 60 year old female with multiple previous admissions, is morbidly obese with a BMI of 56, and has a pmh of acute on chronic respiratory failure, CO2 Narcosis and hypercarbia, chronic lower extremity cellulitis, acute on chronic renal failure, DM, CHF, and Obesity Hypoventilation that presents from home with weakness, headache, and fatigue for 1 week. The also states that she has been having worsening neck pain, rectal pain associated with her hemorrhoids, and lower extremity redness. The states that she has become increasingly unsteady while using her walker and needed constant support while walking or she would fall and this is very abnormal for her. He also states that she has had difficulty using eating utensil due to increased shakiness and has had confusion with taking her medications. The patient states she is compliant with home NIPPV mask and wears it nightly. Past Medical/Surgical History Acute on chronic respiratory Failure Chronic lower extremity cellulitis Acute on chronic renal failure Diabetes Mellitus Congestive Heart Failure CO2 Narcosis Obesity Hypoventilation Family History Cancer Diabetes mellitus Gallbladder disease Heart disease Lung disease Social History Smoking Status: Former Smoker Drug Use: none Marital Status: Housing Status: lives with family Occupation Status: unemployed Allergies Coded Allergies: Daptomycin (Verified Allergy, Mild, HIVES, 11/11/16) itching Iodine (Verified Allergy, Unknown, 11/11/16) Shellfish (Verified Allergy, Unknown, 11/11/16) Sulfamethoxazole w/Trimethoprim (Verified Allergy, Unknown, RASH, 11/11/16) Codeine (Verified Adverse Reaction, Unknown, NAUSEA, 11/11/16) has tolerated morphine Uncoded Allergies: kristina wipes (Allergy, Severe, red rash, excoriation, 09/19/16) comfort baths (Adverse Reaction, Severe, rash, "breaks out all over", ) Home Medications Scheduled Allopurinol (Zyloprim), 100 MG PO DAILY Ascorbic Acid (Vitamin C 500 mg), 1,000 MG PO DAILY Atorvastatin (Lipitor), 40 MG PO DAILY B-Complex W/ C & Folic Acid (Renal), 1 CAP PO QAM Calcium Acetate (Phosphate Bin (Phoslo 667 Mg), 667 MG PO ACHS Cholecalciferol (Vitamin D3), 1,000 INTER.UNIT PO DAILY Doxycycline Monohydrate (Monodox), 100 MG PO DAILY Famotidine (Famotidine), 20 MG PO DAILY Fluticasone Prop/Salmeterol (Advair Diskus 500/50 60 Dose), 1 PUFF INH BID Home O2 Therapy (Oxygen), 3 LITERS NA CONTINOUS Insulin Aspart (Novolog Flexpen), 50 UNITS SQ W/BREAKFAST Insulin Aspart (Novolog Flexpen), 50 UNITS SQ W/LUNCH Insulin Aspart (Novolog Flexpen), 90 UNITS SQ W/SUPPER Insulin Glargine (Toujeo Solostar), 70 UNITS SC TID Metoprolol Succ (Toprol Xl) (Toprol-Xl ), 150 MG PO UD Multiple Vitamins W/ Minerals (One Daily For Women), 1 TAB PO DAILY Pantoprazole (Protonix), 40 MG PO DAILY Pregabalin (Lyrica), 75 MG PO BID Pyridoxine (Vitamin B6), 200 MG PO DAILY Silver Sulfadiazine (Silvadene), 1 APPLN TOP DAILY Tiotropium Wolf (Spiriva Handihaler), 1 CAP INH DAILY Vitamin E (Vitamin E), 800 INTER.UNIT PO DAILY Scheduled PRN Hydrocodone/Acetaminophen 5MG/325MG (Perry 5MG/325MG), 1 TAB PO Q6H PRN for Pain Insulin Aspart (Novolog Flexpen), 40 UNITS SQ HS PRN for Late Night Snack Ipratropium-Albuterol (Duoneb), 1 TREATMENT INH Q6H PRN for SOB/Wheezing Current Inpatient Medications Current Inpatient Medications Medications (Trade) Dose Ordered Sig/Duyen Route Start Time Stop Time Status Last Admin Dose Admin Miscellaneous Information (Pharmacy Consult) 1 ea NOW STAT N/A 11/11/16 15:22 11/11/16 15:23 UNV Albuterol/ Ipratropium (Duoneb) 3 ml QIDR INH 11/11/16 16:00 12/11/16 15:59 UNV Allopurinol (Zyloprim Tab) 100 mg DAILY PO 11/12/16 09:00 12/12/16 08:59 Atorvastatin Calcium (Lipitor Tab) 40 mg DAILY PO 11/12/16 09:00 12/12/16 08:59 Vitamin B Complex/ Vit C/Folic Acid (Nephrocaps) 1 cap QAM PO 11/12/16 09:00 12/12/16 08:59 Calcium Acetate (Phoslo Cap) 667 mg ACHS PO 11/11/16 16:00 12/11/16 15:59 Cholecalciferol (Vitamin D Tab) 1,000 inter.unit DAILY PO 11/12/16 09:00 12/12/16 08:59 Famotidine (Pepcid Tab) 20 mg DAILY PO 11/12/16 09:00 12/12/16 08:59 Salmeterol Xinafoate/ Fluticasone (Advair Diskus 500/50 Inh) 1 puff BID INH 11/11/16 21:00 12/11/16 20:59 Acetaminophen/ Hydrocodone Bitart (Perry 5/325 Tab) 1 tab Q6H PRN PO 11/11/16 15:30 11/25/16 15:29 Insulin Aspart (novoLOG ASPART) 40 units HS PRN SQ 11/11/16 15:30 12/11/16 15:29 UNV Metoprolol Succinate (Toprol Xl Tab) 150 mg UD PO 11/11/16 15:30 12/11/16 15:29 UNV Multivitamins/ Minerals (Multivitamin W/ Minerals Tab) 1 tab DAILY PO 11/12/16 09:00 12/12/16 08:59 Pantoprazole Sodium (Protonix Tab) 40 mg DAILY PO 11/12/16 09:00 12/12/16 08:59 Pyridoxine HCl (Vitamin B-6 Tab) 200 mg DAILY PO 11/12/16 09:00 12/12/16 08:59 Silver Sulfadiazine (Silvadene 1% Crm 50GM Jar) 1 appln DAILY EXT 11/12/16 09:00 12/12/16 08:59 Tiotropium Wolf (Spiriva Handihaler Inhaler) 1 puff DAILY INH 11/12/16 09:00 12/12/16 08:59 Ascorbic Acid (Vitamin C Tab) 1,000 mg DAILY PO 11/12/16 09:00 12/12/16 08:59 Non-Formulary Medication (Insulin Glargine (Toujeo Solostar)) 70 units TID SC 11/11/16 21:00 12/11/16 20:59 UNV [id number] Acetate (Vitamin E Cap) 800 interunit DAILY PO 11/12/16 09:00 12/12/16 08:59 Insulin Aspart (novoLOG ASPART) SLIDING SCALE G... ACHS SC 11/11/16 16:00 12/11/16 15:59 UNV Miscellaneous Information (Consult Glycemic Management Pharmacy) 1 ea UD PRN N/A 11/11/16 16:00 12/11/16 15:59 Heparin Sodium (Porcine) (Heparin Sq 5000 Unit/0.5ml) 5,000 unit Q12 SQ 11/11/16 21:00 12/11/16 20:59 UNV Hydromorphone HCl (Dilaudid Inj) 1 mg Q8H PRN IV 11/11/16 15:30 11/25/16 15:29 Pregabalin (Lyrica Cap) 50 mg DAILY PO 11/12/16 09:00 12/12/16 08:59 UNV Heparin Sodium (Porcine) (Heparin Iv Bolus) 2,000 unit ONE IV 11/11/16 16:15 11/11/16 16:16 UNV Heparin Sodium (Porcine) (Heparin Iv Bolus) 1,000 unit Q1H IV 11/11/16 16:15 11/11/16 17:16 UNV Epoetin Simba (Procrit Inj) 10,000 units ONE ONCE IV. 11/11/16 16:15 11/11/16 16:16 UNV Paricalcitol (Zemplar Inj) 3 mcg ONE ONCE IV. 11/11/16 16:15 11/11/16 16:16 UNV Piperacillin Sod/ Tazobactam Sod 4.5 gm/Dextrose 120 ml @ 200 mls/hr TODAY@1630 IV 11/11/16 16:30 11/11/16 22:00 Piperacillin Sod/ Tazobactam Sod 4.5 gm/Dextrose 120 ml @ 30 mls/hr Q12@0400,1600 IV 11/12/16 04:00 11/22/16 03:59 Review of Systems Constitutional: No fever, No chills Respiratory: + shortness of breath, No cough, No sputum, No wheezing Cardiovascular: No chest pain, No palpitations Abdomen: + constipation, + problem reported (pain with defecation at site of external hemorrhoids), No pain, No nausea, No vomiting Musculoskeletal: + problem reported (neck pain) Neurologic: + weakness, No memory loss Physical Exam Date Time Temp Pulse Resp B/P (MAP) Pulse Ox O2 Delivery O2 Flow Rate FiO2 11/11/16 16:18 86 16 149/69 91 BiPAP 11/11/16 15:49 BiPAP 3.0 28 11/11/16 15:26 89 112/52 91 BiPAP 11/11/16 15:23 90 94 28 11/11/16 15:07 88 16 134/66 96 Room Air 11/11/16 14:28 87 11/11/16 14:13 92 95 35 11/11/16 13:43 88 18 117/57 92 Nasal Cannula 3.0 11/11/16 12:00 85 22 128/51 96 Nasal Cannula 3.0 11/11/16 10:31 36.7 79 20 114/57 96 Room Air 11/11/16 10:26 80 General Appearance: moderate distress, obese, other (lethargic) Head: normocephalic, atraumatic Eyes: PERRLA, EOMI, sclerae normal, conjunctivae normal Neck: trachea midline, no stridor, supple Respiratory: no tenderness, other (Crackles over anterior lung rain) Cardiovasular: regular rate/rhythm, normal S1S2, no M/G/R Abdomen: non tender, normal bowel sounds, no rebound, no masses, no guarding Lower Extremities: other (warm, chronic skin changes over lower extremity, cellulitis - chonic vs acute?) Edema: Bilateral LE (1+) Neuro: alert, oriented x 3, normal motor exam Laboratory Results Last 24 Hours Test 11/11/16 10:35 11/11/16 11:07 11/11/16 12:38 11/11/16 15:34 White Blood Count 11.53 K/uL Red Blood Count 3.28 M/uL Hemoglobin 10.4 g/dL Hematocrit 35.2 % Mean Corpuscular Volume 107.3 fL Mean Corpuscular Hemoglobin 31.7 pg Mean Corpuscular Hemoglobin Concent 29.5 g/dl Platelet Count 215 K/uL Mean Platelet Volume 10.7 fL Neutrophils (%) (Auto) 76.4 % Lymphocytes (%) (Auto) 11.1 % Monocytes (%) (Auto) 9.0 % Eosinophils (%) (Auto) 1.6 % Basophils (%) (Auto) 0.3 % Neutrophils # (Auto) 8.80 K/uL Lymphocytes # (Auto) 1.28 K/uL Monocytes # (Auto) 1.04 K/uL Eosinophils # (Auto) 0.19 K/uL Basophils # (Auto) 0.04 K/uL RDW Standard Deviation 83.2 fL RDW Coefficient of Variation 21.8 % Immature Granulocyte % (Auto) 1.6 % Immature Granulocyte # (Auto) 0.18 K/uL Nucleated RBC Absolute Count (auto) 0.57 K/uL Nucleated Red Blood Cells % 4.9 % Poikilocytosis PRESENT Anisocytosis PRESENT Macrocytosis PRESENT Sodium Level 134 mmol/L Potassium Level 4.8 mmol/L Chloride Level 101 mmol/L Carbon Dioxide Level 26 mmol/L Anion Gap 7.0 mmol/L Blood Urea Nitrogen 76 mg/dl Creatinine 10.00 mg/dl Est Creatinine Clear Calc Drug Dose 8.4 ml/min Estimated GFR () 4.3 Estimated GFR (Non- 3.7 BUN/Creatinine Ratio 7.6 Random Glucose 137 mg/dl Calcium Level 8.9 mg/dl Total Bilirubin 0.3 mg/dl Aspartate Amino Transf (AST/SGOT) 17 U/L Alanine Aminotransferase (ALT/SGPT) 38 U/L Alkaline Phosphatase 88 U/L Total Creatine Kinase 39 U/L Creatine Kinase MB 2.3 ng/ml Creatine Kinase MB Ratio 5.9 Total Protein 8.6 gm/dl Albumin 3.0 gm/dl Globulin 5.6 gm/dl Albumin/Globulin Ratio 0.5 Bedside Troponin I 0.030 ng/ml Venous Blood pH 7.14 7.11 Venous Blood Partial Pressure CO2 75 mmHg 79 mmHg Venous Blood Partial Pressure O2 49 mmHg 34 mmHg Venous Blood HCO3 25 mmol/L 24 mmol/L Venous Blood Oxygen Saturation 73.7 % < 60.0 % Venous Blood Base Excess -5.4 mEq/L -6.3 mEq/L Test 11/11/16 15:39 Assessment & Plan Patient is a 60 year old female with a complicated past medical history that presented to [facility] with weakness, fatigue, and some confusion. The patient on admission was found to be in respiratory acidosis on VBG and was subsequently placed on BiPAP. The patient was scheduled to go for dialysis this morning that she did not attend, and had a creatinine of 10. The patient get hemodialysis in the hospital this evening and will return to the ICU afterwards. Neuro: - A&O x3 - CAM-ICU: Negative - GCS: 14 - CT Head: No intracranial abnormalities - Sedation: None - Resume home Lyrica 50mg PO Daily Resp: - BiPAP - FiO2 28 - CXR: Parenchymal infiltrate at right base. Pulmonary vascular congestion - VBG: pH 7.11, pCO2 79, HCO3 24 - Inhalers: Spiriva 1 puff daily, Advair 1 puff BID - Duoneb QID CV: - EKG - NSR - Troponin - 0.30 - Resume home Toprol XL 150mg and Atorvastatin 40mg GI - Diet: Renal, Low Sodium, Diabetic Diet - GI ppx: Continue home Pepcid 20mg and Protonix 40mg PO Daily Renal - Creatinine of 10 --> 7.5 when discharged in August but has been as high as 8.9 previously, and missed her scheduled dialysis this morning - Will go for hemodialysis today in the hospital - Has AVF in left upper arm that was performed on 08/19/[address] Thapa - Nephrology on board Endocrine - Insulin Protocol as per ICU - Last glucose 137 - Discussed previous Insulin requirement with Pharmacy --> Will start patient on 70 units of Lantus BID with sliding scale coverage - Hold home Toujeo - Resume home Allopurinol 100mg PO Daily Heme - Hemoglobin 10.4 (improved since previous discharge on 09/20 where Hgb was 9.2) - Will get erythropoietin stimulating agents (SAMARA) with dialysis - Procrit 1,000 units - DVT ppx: Heparin 5,000 units q12 ID: - Afebrile - Leukocytosis - WBC 11.53 - Vancomycin + Zosyn 4.5g BID - Blood Cultures Pending - Hold home Doxycycline 100mg PO BID - Procalcitonin ordered Resident Physician Supervision Note: Dr. Godfrey was resident physician during care of patient. I separately evaluated patient and did history and exam. I discussed the case with the resident and generally agree with the findings and plan. Patient critically ill due to Acute on chronic hypercapnic respiratory failure, no improvement in blood gas while on noninvasive ventilation. Empiric coverage for possible pneumonia, COPD exacerbation. If patient requires intubation would strongly advocate for tracheostomy secondary to hypoventilation syndrome. I have personally spent 40 minutes of critical care time in the direct management of this patient. This is a life/limb threatening event. This includes time spent evaluating patient, direct bedside care, chart review, placing orders, interpretation of diagnostic studies, discussion with consultants, patient, and family members, as well as other required patient management activities. This time is exclusive of all separately billable procedures, and teaching time and separate from and in addition to any other critical care service time. Documented By: Jefferson Beasley DO
[2016-11-11] MEDS ORDERED: VANCOMYCIN INJ 1,500 MG in SODIUM CHLORIDE 0.9% 500ML 500 ML IV SCH (17:00)
[2016-11-11] MEDS: HYDROmorphone INJ 1 MG/ML SYR IV PRN (17:27)
[2016-11-11] MEDS ORDERED: HEPARIN SOD (PORCINE) 1000 UNIT/ML 10 ML VIAL IV ONE ×2 (17:30→21:05)
[2016-11-11] MEDS ORDERED: EPOETIN ALFA 10,000 UNITS/ML VIAL IV. ONE (18:00)
[2016-11-11] MEDS ORDERED: PARICALCITOL 5 MCG/ML VIAL (ZEMPLAR) IV. ONE (18:00)
[2016-11-11] MEDS: CALCIUM ACETATE 667MG GELCAP PO SCH ×2 (18:52→19:57)
[2016-11-11] MEDS: ALBUT/IPRATROP 3MG/0.5MG NEB 3 ML VIAL INH SCH (18:55)
[2016-11-11] MEDS ORDERED: INSULIN GLARGINE SC ONE (19:00)
[2016-11-11] MEDS: MICONAZOLE NITRATE POWDER 43 GM EXT PRN (19:23)
[2016-11-11] MEDS: INSULIN ASPART 100 UNITS/ML 3 ML PEN SC SCH ×2 (19:36→19:59)
[2016-11-11 20:21] LABS: IPAP 12; ISTAT ARTERIAL BLOOD GAS HCO3 21 meq/L (19-24); ISTAT ARTERIAL BLOOD GAS PCO2 70 mmHg (35-46); ISTAT ARTERIAL BLOOD GAS PO2 68 mmHg (80-95); ISTAT ARTERIAL BLOOD GAS pH 7.09 (7.35-7.45); ISTAT CARBON DIOXIDE 23 mEq/l (24-31); ISTAT DELIVERY SYSTEM BIPAP; ISTAT FIO2 35 %; ISTAT RATE 12; ISTAT SITE R Radial
[2016-11-11] MEDS: FLUTICASONE/SALMETEROL (ADVAIR) 500/50 INH 14 PUFF INH SCH (20:48)
[2016-11-11] MEDS: DOXYCYCLINE HYCLATE 100 MG CAP PO SCH (20:48)
[2016-11-11] MEDS ORDERED: SODIUM BICARB 8.4% INJ 50 MEQ/50 ML SYR IV ONE ×2 (20:49→20:50)
[2016-11-11] MEDS ORDERED: PREGABALIN 75 MG CAP PO SCH (21:00)
[2016-11-11] MEDS: [UNRECOGNIZED DRUG - OTHER] SCH ×2 (21:00→23:28)
[2016-11-11] MEDS ORDERED: NURSING DECISION MEDICATION ORDER SCH (21:15)
--- NOTE | 2016-11-11 21:44 | Critical Care Progress Note ---
Critical Care Progress Note Date of Service Nov 11, 2016. Critical Care Progress Note I was alerted by nursing staff that Mrs. Gaytan had a decline in mental status from prior examination. Upon examination she was difficult to arouse, would not open her eyes, and was unable to answer questions appropriately. Abg at this time: 7.087/69.9/68/21.2 Plan: 3amps BiCarb BiPap settings changed to 16/5 with back up rate of 16, continue FIO2 of 35% Continue with hemodialysis as soon as possible Intubate if mental status does not improve * Reexamined 30 minutes later: Mental status much improved. Answers questions, arouses more easily, and make sustained eye contact while conversing. * Made Emily aware of all changes I discussed the treatment plan with Cesar Sharma
[2016-11-11] MEDS: HEPARIN SOD (PORCINE) 1000 UNIT/ML 10 ML VIAL IV SCH ×2 (21:45→22:45)
[2016-11-11] MEDS: HEPARIN SOD 5000 UNIT/0.5 ML CARP SQ SCH (21:54)
[2016-11-11] MEDS ORDERED: INSULIN REGULAR 250 UNITS in SODIUM CHLORIDE 0.9% 250ML 250 ML IV SCH (22:45)
[2016-11-11] MEDS ORDERED: ALBUMIN HUMAN 25% 12.5 GM/50 ML VIAL IV ONE (23:15)
[2016-11-12] VITALS (29 sets, daily range): BP systolic 81–128; BP diastolic 36–67; PULSE 80–121; TEMP 36.5–37; O2SAT 89–98; Ht 162.6 cm; Wt 143.2 kg
[2016-11-12] MEDS ORDERED: EPOETIN ALFA 10,000 UNITS/ML VIAL IV. ONE (00:45)
[2016-11-12] MEDS ORDERED: PARICALCITOL 5 MCG/ML VIAL (ZEMPLAR) IV. ONE (00:45)
[2016-11-12] MEDS: [UNRECOGNIZED DRUG - OTHER] SCH ×4 (00:52→07:19)
[2016-11-12] MEDS: PIPERACILL/TAZOBAC IV 4.5 GM in DEXTROSE 5% 100ML IV SCH ×2 (04:01→16:28)
[2016-11-12 06:17] LABS: BASO % 0.1 %; BASO ABS # 0.01 K/uL (0-0.2); EOS % 1.3 %; HEMATOCRIT 30.8 % (37-47); IG% 1.3 %; LYMPH % 8.6 %; LYMPH ABS # 0.86 K/uL (1.2-3.4); MEAN CELL VOLUME 106.9 fL (80-100); MEAN CORPUSCULAR HEMOGLOBIN 31.9 pg (25-34); MEAN CORPUSCULAR HGB CONC 29.9 g/dl (32-36); MEAN PLATELET VOLUME 10.3 fL (7.4-10.4); MONO % 10.7 %; PLATELET COUNT 167 K/uL (130-400); RED BLOOD COUNT 2.88 M/uL (4.2-5.4); WHITE BLOOD COUNT 9.95 K/uL (4.8-10.8)
[2016-11-12 06:56] LABS: ESTIMATED AVERAGE GLUCOSE 123 mg/dl; HA1C FLAG Normal (Normal)
[2016-11-12 07:06] LABS: BUN/CREATININE RATIO 5.7 (10-20); CALCIUM 7.4 mg/dl (8.5-10.1); CREATININE 5.8 mg/dl (0.60-1.20); MAGNESIUM 2.3 mg/dl (1.8-2.4); POTASSIUM 3.7 mmol/L (3.5-5.1)
[2016-11-12 07:36] LABS: ANISOCYTOSIS PRESENT; COMPLETE YES; POIKILOCYTOSIS PRESENT; POLYCHROMASIA 1+
[2016-11-12] MEDS: ALBUT/IPRATROP 3MG/0.5MG NEB 3 ML VIAL INH SCH ×4 (07:47→19:57)
[2016-11-12] MEDS ORDERED: INSULIN ASPART 100 UNITS/ML 3 ML PEN SC SCH (08:00)
[2016-11-12 08:03] LABS: HEPATITIS B AB NEG
[2016-11-12] MEDS: DOXYCYCLINE HYCLATE 100 MG CAP PO SCH ×2 (08:43→21:04)
[2016-11-12] MEDS: ALLOPURINOL 100 MG TAB PO SCH (08:44)
[2016-11-12] MEDS: FAMOTIDINE 20 MG TAB PO SCH (08:44)
[2016-11-12] MEDS: ATORVASTATIN 40 MG TAB PO SCH (08:44)
[2016-11-12] MEDS: CHOLECALCIFEROL 1000 INTER.UNIT TAB PO SCH (08:54)
[2016-11-12] MEDS: CALCIUM ACETATE 667MG GELCAP PO SCH ×4 (08:54→21:03)
[2016-11-12] MEDS: PANTOprazole SOD 40 MG TAB PO SCH (08:55)
[2016-11-12] MEDS: ASCORBIC ACID 500 MG TAB PO SCH (08:55)
[2016-11-12] MEDS: NEPHROCAPS PO SCH (08:55)
[2016-11-12] MEDS: PYRIDOXINE HCL 50 MG TAB PO SCH (08:55)
[2016-11-12] MEDS: SILVER SULFADIAZINE 1% CR 50 GM JAR EXT SCH (08:56)
[2016-11-12] MEDS: TOCOPHERYL, DL-ALPHA 400 INTER.UNIT CAP PO SCH (08:56)
[2016-11-12] MEDS: CEROVITE ADV FORMULA TAB PO SCH (08:56)
[2016-11-12] MEDS: FLUTICASONE/SALMETEROL (ADVAIR) 500/50 INH 14 PUFF INH SCH ×2 (08:57→21:03)
[2016-11-12] MEDS: TIOTROPIUM BROMIDE 5 PUFF/90 MCG INH INH SCH (08:57)
[2016-11-12] MEDS: METOPROLOL SUCC 50MG EXT REL TAB PO SCH (08:59)
[2016-11-12] MEDS ORDERED: INSULIN GLARGINE SC SCH (09:00)
[2016-11-12] MEDS: HEPARIN SOD 5000 UNIT/0.5 ML CARP SQ SCH ×2 (09:01→21:06)
[2016-11-12] MEDS: PREGABALIN 50 MG CAP PO SCH (09:04)
[2016-11-12 09:20] LABS: VEN BLD GAS O2 SATURATION 73.4 %; VEN BLOOD GAS BASE EXCESS -1.6 mEq/L
--- NOTE | 2016-11-12 09:23 | Clinical Documentation Query ---
CLINICAL DOCUMENTATION QUERY 60 year old white female who presents to the ED with a cc of a worsening headache. Ultimately found to be in respiratory distress and with possible sepsis. Query #1/3 In your clinical opinion is this patient being managed for: ( x ) Acute and chronic hypercarbic respiratory failure treated with O2 via BiPAP, IVP Bicarb, and Emergent HD ( ) Not Agree ( ) Other explanation of clinical findings (Please Explain) ( ) Unable to determine (Please Define) ( ) Need to Discuss The medical record reflects the following clinical findings, treatment, and risk factors. Clinical Indicators: Respiratory acidosis. ED impression was acute hypercapnic respiratory failure. ABG revealed 7.//68/21. Treatment: IVP Bicarb, O2 via BiPAP, and emergent HD Risk Factors: Age, obesity, ESRD, CHF, Sepsis, ?pneumonia, Hx of CO2 Narcosis. Query #2/3 In your clinical opinion is this patient being managed for: ( ) Pneumonia treated with IV Zosyn, O2, & BiPAP ( ) Not Agree ( ) Other explanation of clinical findings (Please Explain) ( ) Unable to determine (Please Define) ( ) Need to Discuss The medical record reflects the following clinical findings, treatment, and risk factors. Clinical Indicators: CXR showed Parenchymal infiltrate at right base. Pulmonary vascular congestion. Sats drops to 84% via BiPAP. Lung sounds with wheezes and crackles. Treatment: O2 via BiPAP, IV Zosyn Risk Factors: Age, Obesity hypoventilation syndrome, ESRD, home O2 therapy, Query#3/3 In your clinical opinion is this patient being managed for: ( ) Acute on chronic diastolic (preserved LVEF) CHF treated with emergent HD and O2 Via BiPAP. ( ) Only Chronic Diastolic CHF ( ) Not Agree ( ) Other explanation of clinical findings (Please Explain) ( ) Unable to determine (Please Define) ( ) Need to Discuss The medical record reflects the following clinical findings, treatment, and risk factors. Clinical Indicators: Lungs with crackles and wheezes. Hypoxia of 84% via BiPAP. CXR with pulmonary vascular congestion. Echo 07/25/15 showed mild concentric left ventricular hypertrophy, EF >=70%, class I diastolic dysfunction, mildly dilated RF with mildly reduced RV systolic function. Treatment: Emergent HD, O2 via BiPAP, Risk Factors: Age, hx of CHF, ESRD, Obesity hypoventilation syndrome, Diastolic dysfunction by Echo. Please clarify and document your clinical opinion in the progress notes and discharge summary. Terms such as "probable", "suspected", "likely", "questionable", "possible", or "still to be ruled out" are acceptable. IF IN AGREEMENT, YOU MUST DOCUMENT ABOVE DIAGNOSTIC STATEMENT IN DAILY PROGRESS NOTES AND DISCHARGE SUMMARY. This document is not part of the patient's record. Thank You, Dusty Hendrickson, RN [phone]
--- NOTE | 2016-11-12 10:00 | Nephrology Progress Note ---
Nephrology Progress Note Date of Service Nov 12, 2016. Chief Complaint ESRD requiring HD Subjective Mrs. Gaytan was seen and examined in the ICU this morning. Her plan of care was reviewed w/ the ICU team. Mrs. Gaytan was dialyzed for 4 hours yesterday. Only 1 L UF obtained due to relative hypotension. This morning she is more alert. She was taken off NIPPV for a brief period of time in order to eat breakfast. Her primary concern is leg discomfort due to cellulitis Review of Systems Constitutional: No fever Cardiovascular: No chest pain Respiratory: + dyspnea at rest Abdomen: No pain, No nausea Extremities: + leg edema A complete review of systems was performed. Pertinent positives are noted above. All other systems are negative. Vital Signs Last 8 Hrs Date Time Temp Pulse Resp B/P (MAP) Pulse Ox O2 Delivery O2 Flow Rate FiO2 11/12/16 08:16 36.8 88 23 92/44 (60) 93 Nasal Cannula 2.0 11/12/16 08:02 84 94 35 11/12/16 07:50 82 20 94 BiPAP/CPAP 35 11/12/16 07:01 80 16 111/36 (61) 96 BiPAP 35 11/12/16 06:02 81 67 109/53 (71) 98 BiPAP 35 11/12/16 05:00 80 10 109/53 (71) 97 BiPAP 35 11/12/16 04:00 97 BiPAP 35 11/12/16 04:00 82 12 106/57 (73) 97 BiPAP 35 11/12/16 03:01 36.9 91 15 103/42 (62) 98 BiPAP 35 11/12/16 02:00 86 18 91/42 (58) 90 BiPAP 35 Last Recorded Weight Weight (Kilograms): 140.500 Physical Exam General Appearance: + obese (chronically ill appearing) Head: normocephalic, atraumatic Eyes: PERRL, EOMI Neck: no adenopathy Respiratory/Chest: lungs clear (anteriorly) Cardiovascular: regular rate, rhythm Abdomen/GI: normal bowel sounds, non tender, soft Extremities/Musculoskelatal: + pertinent finding (1 + pretibial pitting edema. Cellulitis bilaterally extending from the ankles to the mid calf. Left upper arm AVF + bruit) Neurologic/Psych: alert, oriented x 3 Family History Cancer Diabetes mellitus Gallbladder disease Heart disease Lung disease Negative for CKD / ESRD Social History Smoking Status: Former smoker Drug Use: none Marital Status: Housing Status: lives with family Occupation: unemployed . Lives at home. Former smoker Laboratory Results Past 24 Hours 11/11/16 10:35 Red Blood Count 3.28, Mean Corpuscular Volume 107.3, Mean Corpuscular Hemoglobin 31.7, Mean Corpuscular Hemoglobin Concent 29.5, Mean Platelet Volume 10.7, Neutrophils (%) (Auto) 76.4, Lymphocytes (%) (Auto) 11.1, Monocytes (%) ( Auto) 9.0, Eosinophils (%) (Auto) 1.6, Basophils (%) (Auto) 0.3, Neutrophils # ( Auto) 8.80, Lymphocytes # (Auto) 1.28, Monocytes # (Auto) 1.04, Eosinophils # ( Auto) 0.19, Basophils # (Auto) 0.04 11/12/16 05:49 Red Blood Count 2.88, Mean Corpuscular Volume 106.9, Mean Corpuscular Hemoglobin 31.9, Mean Corpuscular Hemoglobin Concent 29.9, Mean Platelet Volume 10.3, Neutrophils (%) (Auto) 78.0, Lymphocytes (%) (Auto) 8.6, Monocytes (%) ( Auto) 10.7, Eosinophils (%) (Auto) 1.3, Basophils (%) (Auto) 0.1, Neutrophils # (Auto) 7.76, Lymphocytes # (Auto) 0.86, Monocytes # (Auto) 1.06, Eosinophils # ( Auto) 0.13, Basophils # (Auto) 0.01 11/11/16 10:35 11/12/16 05:49 Test 11/11/16 10:35 11/11/16 11:07 11/11/16 12:38 11/11/16 15:34 White Blood Count 11.53 K/uL (4.8-10.8) Red Blood Count 3.28 M/uL (4.2-5.4) Hemoglobin 10.4 g/dL (12.0-16.0) Hematocrit 35.2 % (37-47) Mean Corpuscular Volume 107.3 fL (80-100) Mean Corpuscular Hemoglobin 31.7 pg (25-34) Mean Corpuscular Hemoglobin Concent 29.5 g/dl (32-36) Platelet Count 215 K/uL (130-400) Mean Platelet Volume 10.7 fL (7.4-10.4) Neutrophils (%) (Auto) 76.4 % Lymphocytes (%) (Auto) 11.1 % Monocytes (%) (Auto) 9.0 % Eosinophils (%) (Auto) 1.6 % Basophils (%) (Auto) 0.3 % Neutrophils # (Auto) 8.80 K/uL (1.4-6.5) Lymphocytes # (Auto) 1.28 K/uL (1.2-3.4) Monocytes # (Auto) 1.04 K/uL (0.11-0.59) Eosinophils # (Auto) 0.19 K/uL (0-0.5) Basophils # (Auto) 0.04 K/uL (0-0.2) RDW Standard Deviation 83.2 fL (36.4-46.3) RDW Coefficient of Variation 21.8 % (11.5-14.5) Immature Granulocyte % (Auto) 1.6 % Immature Granulocyte # (Auto) 0.18 K/uL (0.00-0.02) Nucleated RBC Absolute Count (auto) 0.57 K/uL (0-0) Nucleated Red Blood Cells % 4.9 % Poikilocytosis PRESENT Anisocytosis PRESENT Macrocytosis PRESENT Erythrocyte Sedimentation Rate 55 mm/hr (0-21) Anion Gap 7.0 mmol/L (3-11) Est Creatinine Clear Calc Drug Dose 8.4 ml/min Estimated GFR () 4.3 Estimated GFR (Non- 3.7 BUN/Creatinine Ratio 7.6 (10-20) Calcium Level 8.9 mg/dl (8.5-10.1) Total Bilirubin 0.3 mg/dl (0.2-1) Aspartate Amino Transf (AST/SGOT) 17 U/L (15-37) Alanine Aminotransferase (ALT/SGPT) 38 U/L (12-78) Alkaline Phosphatase 88 U/L (45-117) Total Creatine Kinase 39 U/L (26-192) Creatine Kinase MB 2.3 ng/ml (0.5-3.6) Creatine Kinase MB Ratio 5.9 (0-3.0) C-Reactive Protein 2.10 mg/dl (0-0.29) Total Protein 8.6 gm/dl (6.4-8.2) Albumin 3.0 gm/dl (3.4-5.0) Globulin 5.6 gm/dl (2.5-4.0) Albumin/Globulin Ratio 0.5 (0.9-2) Bedside Troponin I 0.030 ng/ml (0-0.045) Venous Blood pH 7.14 (7.36-7.41) 7.11 (7.36-7.41) Venous Blood Partial Pressure CO2 75 mmHg (38.0-50.0) 79 mmHg (38.0-50.0) Venous Blood Partial Pressure O2 49 mmHg 34 mmHg Venous Blood HCO3 25 mmol/L 24 mmol/L Venous Blood Oxygen Saturation 73.7 % < 60.0 % Venous Blood Base Excess -5.4 mEq/L -6.3 mEq/L Test 11/11/16 17:51 11/11/16 19:12 11/11/16 19:39 11/11/16 19:51 Bedside Glucose 271 mg/dl (70-90) 240 mg/dl (70-90) Procalcitonin 0.65 ng/ml (0-0.5) Lactic Acid Level 1.1 mmol/L (0.4-2.0) Test 11/11/16 20:09 11/11/16 21:35 11/12/16 00:23 11/12/16 00:59 Blood Gas Sample Site R Radial Bedside Blood Gas pH (LAB) 7.09 (7.35-7.45) Bedside Blood Gas pCO2 (LAB) 70 mmHg (35-46) Bedside Blood Gas pO2 (LAB) 68 mmHg (80-95) Bedside Blood Gas HCO3 (LAB) 21 meq/L (19-24) Bedside Blood Gas Total CO2 23 mEq/l (24-31) Bedside Blood Gas Base Excess (LAB) -9.0 meq/L (-9-1.8) Bedside Blood Gas O2 Saturation 85.0 % (90-95) Oleg Test NA Oxygen Delivery Device BIPAP Bedside Oxygen Rate (breaths/min) 12 Bedside FiO2 35 % Blood Gas IPAP 12 Bedside Glucose 239 mg/dl (70-90) 104 mg/dl (70-90) 103 mg/dl (70-90) Test 11/12/16 01:27 11/12/16 01:58 11/12/16 02:59 11/12/16 04:09 Bedside Glucose 85 mg/dl (70-90) 123 mg/dl (70-90) 76 mg/dl (70-90) 70 mg/dl (70-90) Test 11/12/16 05:07 11/12/16 05:32 11/12/16 05:49 11/12/16 05:55 Bedside Glucose 74 mg/dl (70-90) 65 mg/dl (70-90) 78 mg/dl (70-90) White Blood Count 9.95 K/uL (4.8-10.8) Red Blood Count 2.88 M/uL (4.2-5.4) Hemoglobin 9.2 g/dL (12.0-16.0) Hematocrit 30.8 % (37-47) Mean Corpuscular Volume 106.9 fL (80-100) Mean Corpuscular Hemoglobin 31.9 pg (25-34) Mean Corpuscular Hemoglobin Concent 29.9 g/dl (32-36) Platelet Count 167 K/uL (130-400) Mean Platelet Volume 10.3 fL (7.4-10.4) Neutrophils (%) (Auto) 78.0 % Lymphocytes (%) (Auto) 8.6 % Monocytes (%) (Auto) 10.7 % Eosinophils (%) (Auto) 1.3 % Basophils (%) (Auto) 0.1 % Neutrophils # (Auto) 7.76 K/uL (1.4-6.5) Lymphocytes # (Auto) 0.86 K/uL (1.2-3.4) Monocytes # (Auto) 1.06 K/uL (0.11-0.59) Eosinophils # (Auto) 0.13 K/uL (0-0.5) Basophils # (Auto) 0.01 K/uL (0-0.2) RDW Standard Deviation 84.1 fL (36.4-46.3) RDW Coefficient of Variation 21.7 % (11.5-14.5) Immature Granulocyte % (Auto) 1.3 % Immature Granulocyte # (Auto) 0.13 K/uL (0.00-0.02) Nucleated RBC Absolute Count (auto) 0.65 K/uL (0-0) Nucleated Red Blood Cells % 6.5 % Polychromasia 1+ Poikilocytosis PRESENT Anisocytosis PRESENT Macrocytosis PRESENT Anion Gap 6.0 mmol/L (3-11) Est Creatinine Clear Calc Drug Dose 14.1 ml/min Estimated GFR () 8.3 Estimated GFR (Non- 7.2 BUN/Creatinine Ratio 5.7 (10-20) Estimated Average Glucose 123 mg/dl Hemoglobin A1c 5.9 % (4.5-5.6) Calcium Level 7.4 mg/dl (8.5-10.1) Phosphorus Level 4.0 mg/dl (2.5-4.9) Magnesium Level 2.3 mg/dl (1.8-2.4) Hepatitis B Surface Antigen NEG (NEG) Hepatitis B Surface Antibody NEG Test 11/12/16 07:41 11/12/16 07:47 11/12/16 09:06 Random Cortisol 10.11 mcg/dl Random Vancomycin Level 10.0 mcg/ml Bedside Glucose 102 mg/dl (70-90) Venous Blood pH 7.22 (7.36-7.41) Venous Blood Partial Pressure CO2 68 mmHg (38.0-50.0) Venous Blood Partial Pressure O2 45 mmHg Venous Blood HCO3 27 mmol/L Venous Blood Oxygen Saturation 73.4 % Venous Blood Base Excess -1.6 mEq/L Allergies Coded Allergies: Daptomycin (Verified Allergy, Mild, HIVES, 11/11/16) itching Iodine (Verified Allergy, Unknown, 11/11/16) Shellfish (Verified Allergy, Unknown, 11/11/16) Sulfamethoxazole w/Trimethoprim (Verified Allergy, Unknown, RASH, 11/11/16) Codeine (Verified Adverse Reaction, Unknown, NAUSEA, 11/11/16) has tolerated morphine Uncoded Allergies: kristina wipes (Allergy, Severe, red rash, excoriation, 09/19/16) comfort baths (Adverse Reaction, Severe, rash, "breaks out all over", ) Medications Current Inpatient Medications Medications (Trade) Dose Ordered Sig/Duyen Route Start Time Stop Time Status Last Admin Dose Admin Vancomycin HCl (Consult) 1 ea UD N/A 11/11/16 16:25 12/11/16 16:24 Albuterol/ Ipratropium (Duoneb) 3 ml QIDR INH 11/11/16 16:00 12/11/16 15:59 11/12/16 07:47 3 ML Allopurinol (Zyloprim Tab) 100 mg DAILY PO 11/12/16 09:00 12/12/16 08:59 11/12/16 08:44 100 MG Atorvastatin Calcium (Lipitor Tab) 40 mg DAILY PO 11/12/16 09:00 12/12/16 08:59 11/12/16 08:44 40 MG Vitamin B Complex/ Vit C/Folic Acid (Nephrocaps) 1 cap QAM PO 11/12/16 09:00 12/12/16 08:59 11/12/16 08:55 1 CAP Calcium Acetate (Phoslo Cap) 667 mg ACHS PO 11/11/16 16:00 12/11/16 15:59 11/12/16 08:54 667 MG Cholecalciferol (Vitamin D Tab) 1,000 inter.unit DAILY PO 11/12/16 09:00 12/12/16 08:59 11/12/16 08:54 1,000 INTER.UNIT Famotidine (Pepcid Tab) 20 mg DAILY PO 11/12/16 09:00 12/12/16 08:59 11/12/16 08:44 20 MG Salmeterol Xinafoate/ Fluticasone (Advair Diskus 500/50 Inh) 1 puff BID INH 11/11/16 21:00 12/11/16 20:59 11/12/16 08:57 1 PUFF Acetaminophen/ Hydrocodone Bitart ([place] 5/325 Tab) 1 tab Q6H PRN PO 11/11/16 15:30 11/25/16 15:29 Metoprolol Succinate (Toprol Xl Tab) 150 mg SuMoWeFr@0900 PO 11/12/16 09:00 12/12/16 08:59 Multivitamins/ Minerals (Multivitamin W/ Minerals Tab) 1 tab DAILY PO 11/12/16 09:00 12/12/16 08:59 11/12/16 08:56 1 TAB Pantoprazole Sodium (Protonix Tab) 40 mg DAILY PO 11/12/16 09:00 12/12/16 08:59 11/12/16 08:55 40 MG Pyridoxine HCl (Vitamin B-6 Tab) 200 mg DAILY PO 11/12/16 09:00 12/12/16 08:59 11/12/16 08:55 200 MG Silver Sulfadiazine (Silvadene 1% Crm 50GM Jar) 1 appln DAILY EXT 11/12/16 09:00 12/12/16 08:59 11/12/16 08:56 1 APPLN Tiotropium [place] (Spiriva Handihaler Inhaler) 1 puff DAILY INH 11/12/16 09:00 12/12/16 08:59 11/12/16 08:57 1 PUFF Ascorbic Acid (Vitamin C Tab) 1,000 mg DAILY PO 11/12/16 09:00 12/12/16 08:59 11/12/16 08:55 1,000 MG [id number] Acetate (Vitamin E Cap) 800 interunit DAILY PO 11/12/16 09:00 12/12/16 08:59 11/12/16 08:56 800 INTERUNIT Miscellaneous Information (Consult Glycemic Management Pharmacy) 1 UD PRN N/A 11/11/16 16:00 12/11/16 15:59 Heparin Sodium (Porcine) (Heparin Sq 5000 Unit/0.5ml) 5,000 unit Q12 SQ 11/11/16 21:00 12/11/16 20:59 11/12/16 09:01 5,000 UNIT Hydromorphone HCl (Dilaudid Inj) 1 mg Q8H PRN IV 11/11/16 15:30 11/25/16 15:29 11/11/16 17:27 1 MG Pregabalin (Lyrica Cap) 50 mg DAILY PO 11/12/16 09:00 12/12/16 08:59 11/12/16 09:04 50 MG Piperacillin Sod/ Tazobactam Sod 4.5 gm/Dextrose 120 ml @ 30 mls/hr Q12@0400,1600 IV 11/12/16 04:00 11/22/16 03:59 11/12/16 04:01 30 MLS/HR Piperacillin Sod/ Tazobactam Sod (Consult) 1 UD N/A 11/11/16 16:30 12/11/16 16:29 Miconazole Nitrate (Desenex Powder) 1 appln PRN PRN EXT 11/11/16 17:15 12/11/16 17:14 11/11/16 19:23 1 APPLN Prednisone (PredniSONE TAB) 15 mg DAILY PO 11/11/16 20:15 10/12/17 20:14 11/12/16 08:43 15 MG Doxycycline Hyclate (Vibramycin Cap) 100 mg BID PO 11/11/16 21:00 11/13/16 20:59 11/12/16 08:43 100 MG Insulin Aspart (novoLOG ASPART) SLIDING SCALE ACHS SC 11/12/16 11:00 12/12/16 10:59 Impression (1) ESRD on hemodialysis (2) Hypercapnic respiratory failure (3) Obesity hypoventilation syndrome (4) Cellulitis of leg Mrs. Gaytan has recurrent hypercapnic respiratory failure despite adherence to NIPPV at home. Her CXR is concerning for a RLL infiltrate. Patient has dry cracked skin on her feet and bilateral LE cellulitis. She has ESRD due to cardiorenal syndrome and requires TTS HD (4.5hr F-180NR Qb300 Qd A1.5 3K 2.5 Ca EDW 137.7 kg Heparin 2000 load w/ 1000 units hourly). She has not yet HD today. BUN is markedly elevated but other electrolytes including serum bicarbonate are currently acceptable. Recommendations END STAGE RENAL DISEASE: -- Electrolyte balance is acceptable at this time. No acute indication for HD this morning. Will reassess need for HD in am -- IJ THC placed 07/25/16. L upper arm AVF created 08/19/[address] Thapa. AVF has + bruit but venous limb is too deep for use. Once condition stabilizes patient will require Vascular Surgery evaluation for possible transposition of the venous limb of her AVF -- Will reduce Lyrica to 50 mg daily given after dialysis on dialysis days to adjust for ESRD HYPERTENSION: -- Blood pressure is relatively low. Patient is asymptomatic. Will monitor ANEMIA: -- Will monitor H&H and provide SAMARA as needed to keep Hgb 10 - 11 ID: -- Patient has a RLL infiltrate and LE cellulitis. -- Patient is on Vanco, Zosyn and Doxycycline -- Awaiting blood culture results -- Will repeat CXR in am PULM: -- VBG shows a profound respiratory acidosis. Patient has had several hospitalizations for recurrent hypercapnia. Her indicates that she has been compliant w/ NIPPV at home. Recommend consultation w/ Pulmonology
[2016-11-12] MEDS ORDERED: VANCOMYCIN INJ 1,500 MG in SODIUM CHLORIDE 0.9% 500ML 500 ML IV ONE (10:30)
[2016-11-12] MEDS ORDERED: PERFLUTREN LIPID MICROSPHERE (DEFINITY) IV ONE (11:15)
--- NOTE | 2016-11-12 12:00 | ECHOCARDIOGRAM REPORT ---
*NOTICE TO RECEIVING LIBERTARIAN AGENCY This information is strictly Confidential and protected under [place] law. [place] law prohibits you from making any further disclosure of this information unless further disclosure is expressly permitted by the written consent of the person to whom it pertains or is authorized by law. A general authorization for the release of medical or other information is not sufficient for this purpose. Hospital accepts no responsibility if the information is made available to any other person, INCLUDING THE PATIENT. Interpretation Summary * Name: CRUZITO FLORES Study Date: 11/12/2016 10:49 AM * [facility] HR: 94 * : 1955 (M/d/yyyy) Gender: Female Height: 64 in * Age: 60 yrs Ethnicity: [place] Weight: 309 lb * Ordering Physician: Duy Godfrey * Referring Physician: Self, Referred * Performed By: Kassy Bañuelos RCS * * Reason For Study: Alt. of Consciousness * BSA: 2.4 m2 * Hyperdynamic left ventricular systolic function. * Left ventricular diastolic dysfunction. * Moderate right ventricular dilatation. Moderate right ventricular systolic dysfunction. * Tricuspid regurgitation. Unable to quantitate the severity of the tricuspid regurgitation. * The study was technically difficult. * The study was technically limited. Procedure Details * A saline contrast injection was performed to assess for cardiac shunting. * The injection was performed through an intravenous line in the right arm. * A total of 9 cc of agitated saline was given. * A contrast injection of Definity was performed to improve assessment of LV function. * Contrast was injected into an intravenous site in the right arm. * One vial of Definity ultrasound contrast was diluted in normal saline to a total volume of 10 ml. A total of '2' ml of solution was administered during imaging. * Lot # [id number] of Definity utilized for procedure. * Expiration date . * The attending nurse who injected the contrast agent was JOAO RAMIREZ. Left Ventricle * The left ventricle is normal in size. * There is normal left ventricular wall thickness. * Ejection Fraction = >70 %. * The left ventricle is hyperdynamic. * Diastolic dysfunction, Grade II (pseudonormalization pattern). * No regional wall motion abnormalities noted. Right Ventricle * The right ventricle is not well visualized. * The right ventricle is moderately dilated. * The right ventricular systolic function is moderately reduced. Atria * The left atrial size is normal. * Right atrium not well visualized. * Injection of contrast documented no interatrial shunt. Mitral Valve * The mitral valve is normal. * There is no mitral valve stenosis. * There is no mitral regurgitation noted. Tricuspid Valve * The tricuspid valve is not well visualized. * There is no tricuspid stenosis. * Technically difficult study. Difficult to assess degree of tricuspid regurgitation. * Right ventricular systolic pressure is normal. Aortic Valve * The aortic valve is not well visualized. * Aortic stenosis is absent. * Aortic valve area was calculated at 2.8 cm\S\2 using the continuity equation. * There is no significant aortic regurgitation. Pulmonic Valve * The pulmonic valve is not well visualized. Great Vessels * The aortic root is normal size. Pericardium/Pleural * There is no pericardial effusion. Great Vessels * Inferior vena cava not visualized MMode 2D Measurements and Calculations IVSd 0.90 cm LVIDd 5.4 cm LVIDs 3.3 cm LVPWd 1.1 cm IVS/LVPW 0.81 FS 39.9 % EDV(Teich) 143.8 ml ESV(Teich) 43.2 ml EF(Teich) 70.0 % EDV(cubed) 161.0 ml ESV(cubed) 35.0 ml EF(cubed) 78.3 % LV mass(C)d 211.2 grams LV mass(C)dI 89.7 grams/m\S\2 SV(Teich) 100.6 ml SI(Teich) 42.7 ml/m\S\2 SV(cubed) 126.1 ml SI(cubed) 53.6 ml/m\S\2 Ao root diam 3.0 cm Ao root area 7.0 cm\S\2 LVOT diam 2.1 cm LVOT area 3.5 cm\S\2 LVAd ap4 34.1 cm\S\2 LVLd ap4 8.5 cm EDV(MOD-sp4) 112.2 ml EDV(sp4-el) 116.6 ml LVAs ap4 14.5 cm\S\2 LVLs ap4 6.3 cm ESV(MOD-sp4) 28.9 ml ESV(sp4-el) 28.0 ml EF(MOD-sp4) 74.2 % EF(sp4-el) 76.0 % LVAd ap2 33.4 cm\S\2 LVLd ap2 8.1 cm EDV(MOD-sp2) 114.7 ml EDV(sp2-el) 117.1 ml LVAs ap2 11.6 cm\S\2 LVLs ap2 6.1 cm ESV(MOD-sp2) 18.8 ml ESV(sp2-el) 18.7 ml EF(MOD-sp2) 83.7 % EF(sp2-el) 84.1 % LVLd %diff -4.86 % EDV(MOD-bp) 113.9 ml LVLs %diff -4.01 % ESV(MOD-bp) 23.4 ml EF(MOD-bp) 79.5 % SV(MOD-sp4) 83.3 ml SI(MOD-sp4) 35.4 ml/m\S\2 SV(MOD-sp2) 96.0 ml SI(MOD-sp2) 40.8 ml/m\S\2 SV(MOD-bp) 90.6 ml SI(MOD-bp) 38.5 ml/m\S\2 SV(sp4-el) 88.6 ml SI(sp4-el) 37.7 ml/m\S\2 SV(sp2-el) 98.5 ml SI(sp2-el) 41.9 ml/m\S\2 Doppler Measurements and Calculations MV E max chad 131.6 cm/sec MV A max chad 108.3 cm/sec MV E/A 1.2 MV dec time 0.19 sec Ao V2 max 226.7 cm/sec Ao max PG 20.6 mmHg Ao max PG (full) 8.1 mmHg Ao V2 mean 141.5 cm/sec Ao mean PG 9.5 mmHg Ao mean PG (full) 4.5 mmHg Ao V2 VTI 41.9 cm HERLINDA(I,A) 2.6 cm\S\2 HERLINDA(I,D) 2.6 cm\S\2 HERLINDA(V,A) 2.8 cm\S\2 HERLINDA(V,D) 2.8 cm\S\2 LV V1 max PG 12.5 mmHg LV V1 mean PG 5.0 mmHg LV V1 max 176.7 cm/sec LV V1 mean 98.0 cm/sec LV V1 VTI 31.1 cm SV(Ao) 292.7 ml SI(Ao) 124.4 ml/m\S\2 SV(LVOT) 109.8 ml SI(LVOT) 46.7 ml/m\S\2 TR max chad 234.8 cm/sec
--- NOTE | 2016-11-12 12:09 | Pharmacy Progress Note ---
Pharmacy Abx Initial Consult Date of Service Nov 12, 2016. Pharmacy Dosing Scope Date of Consult: 11/11/16 Consultation requested by: Dr. Krishna Pharmacy is consulted to initiate Vancomycin/Zosyn IV dosing therapy, order appropriate labs and adjust drug dose/frequency. Subjective The patient is a 60 year old female admitted on Nov 11, 2016 at 15:21 with recurrent respiratory failure/cellulitis. Objective Height (Feet): 5 Height (Inches): 4.00 Weight (Kilograms): 140.500 Vital Signs (Past 12Hrs) Vital Signs Past 12 Hours Date Time Temp Pulse Resp B/P (MAP) Pulse Ox O2 Delivery O2 Flow Rate FiO2 11/12/16 11:43 94 20 94 Nasal Cannula 2.0 11/12/16 10:04 121 22 108/66 (80) 90 Nasal Cannula 2.0 11/12/16 10:01 93 12 87/45 (59) 92 Nasal Cannula 2.0 11/12/16 08:16 36.8 88 23 92/44 (60) 93 Nasal Cannula 2.0 11/12/16 08:02 84 94 35 11/12/16 08:00 Nasal Cannula 2.0 11/12/16 07:50 82 20 94 BiPAP/CPAP 35 11/12/16 07:01 80 16 111/36 (61) 96 BiPAP 35 11/12/16 06:02 81 67 109/53 (71) 98 BiPAP 35 11/12/16 05:00 80 10 109/53 (71) 97 BiPAP 35 11/12/16 04:00 97 BiPAP 35 11/12/16 04:00 82 12 106/57 (73) 97 BiPAP 35 11/12/16 03:01 36.9 91 15 103/42 (62) 98 BiPAP 35 11/12/16 02:00 86 18 91/42 (58) 90 BiPAP 35 11/12/16 01:44 37.0 84 98/44 (62) 11/12/16 01:16 87 23 87/40 (56) 94 BiPAP 35 11/12/16 01:13 85 26 98/44 (62) 93 BiPAP 35 11/12/16 01:00 84 92/44 11/12/16 01:00 84 22 92/44 (60) BiPAP 35 11/12/16 00:45 81 85/40 11/12/16 00:45 80 20 85/40 (55) BiPAP 35 11/12/16 00:30 80 85/44 11/12/16 00:15 84 27 94/46 (62) BiPAP 35 11/12/16 00:15 82 94/46 Lab Results (24Hrs) Laboratory Tests (24 Hours) Test 11/11/16 19:12 11/11/16 19:51 11/12/16 05:49 Procalcitonin 0.65 ng/ml (0-0.5) H Lactic Acid Level 1.1 mmol/L (0.4-2.0) White Blood Count 9.95 K/uL (4.8-10.8) Red Blood Count 2.88 M/uL (4.2-5.4) L Hemoglobin 9.2 g/dL (12.0-16.0) L Hematocrit 30.8 % (37-47) L Mean Corpuscular Volume 106.9 fL (80-100) H Mean Corpuscular Hemoglobin 31.9 pg (25-34) Mean Corpuscular Hemoglobin Concent 29.9 g/dl (32-36) L Platelet Count 167 K/uL (130-400) Mean Platelet Volume 10.3 fL (7.4-10.4) Neutrophils (%) (Auto) 78.0 % Lymphocytes (%) (Auto) 8.6 % Monocytes (%) (Auto) 10.7 % Eosinophils (%) (Auto) 1.3 % Basophils (%) (Auto) 0.1 % Neutrophils # (Auto) 7.76 K/uL (1.4-6.5) H Lymphocytes # (Auto) 0.86 K/uL (1.2-3.4) L Monocytes # (Auto) 1.06 K/uL (0.11-0.59) H Eosinophils # (Auto) 0.13 K/uL (0-0.5) Basophils # (Auto) 0.01 K/uL (0-0.2) Micro Results Date/Time Source Procedure Growth Status 11/11/16 19:12 Blood Blood Culture Pending Received 11/11/16 16:09 Blood Blood Culture Pending Received 11/11/16 00:00 Nasal MRSA DNA Surveillance Screen - Final Specimen Negative for MRSA by DNA Probe Complete Risk Factors for Resistance * Hospitalization for 48 hours or more within the past 90 days * Chronic dialysis within the past 30 days * Antimicrobial use within the last 90 days Assessment & Plan Assessment 60 year old female admitted with recurrent respiratory failure/cellulitis, initiated on broad spectrum antibiotics: Vancomycin/Zosyn IV. Per ICU rounds, more concern for skin soft tissue antibiotic coverage but unsure if overlapping respiratory coverage is warranted. Consider deescalation in 24 hours. Blood cultures pending. MRSA nasal swab negative. Plan Vancomycin IV * Loading dose: 1500 mg (10 mg/kg) X 1 last night @1900 * Random level ordered this AM as I assumed, given patient's weight, this would not have filled her volume of distribution * Random level this AM = 10 mcg/mL and no HD planned today * I would like to see her level between 15 - 20 mcg/mL as we try to sort out her true indication * Re-dose 1500 mg IV X 1 and re-check level in the AM as HD is planned for tomorrow Piperacillin/tazobactam * 4.5 g bolus administered over 30 minutes, then 4.5 g IV extended infusion every 12 hours for CrCl 20 mL/min or less and dialysis. * Aggressive dosing selected due to critically ill status/BMI 35 or more/ history of cystic fibrosis. Pharmacy will continue to follow and will adjust dose/frequency as necessary. Thank you.
[2016-11-12 12:37] LABS: VEN BLD GAS O2 SATURATION 64.8 %; VEN BLOOD GAS BASE EXCESS -2.6 mEq/L
--- NOTE | 2016-11-12 12:41 | Pharmacy Progress Note ---
Glycemic Control Intl Consult Date of Service Nov 12, 2016. Scope Glycemic Pharmacist consulted by Dr Krishna on 11/11/16 for glycemic control and to write orders per [facility] inpatient glycemic control protocol Objective Weight (Kilograms): 140.500 Accuchecks BSG (last 24hrs): Test 11/11/16 17:51 11/11/16 19:39 11/11/16 21:35 11/12/16 00:23 Bedside Glucose 271 mg/dl (70-90) 240 mg/dl (70-90) 239 mg/dl (70-90) 104 mg/dl (70-90) Test 11/12/16 00:59 11/12/16 01:27 11/12/16 01:58 11/12/16 02:59 Bedside Glucose 103 mg/dl (70-90) 85 mg/dl (70-90) 123 mg/dl (70-90) 76 mg/dl (70-90) Test 11/12/16 04:09 11/12/16 05:07 11/12/16 05:32 11/12/16 05:49 Bedside Glucose 70 mg/dl (70-90) 74 mg/dl (70-90) 65 mg/dl (70-90) Random Glucose 80 mg/dl (70-99) Test 11/12/16 05:55 11/12/16 07:47 Bedside Glucose 78 mg/dl (70-90) 102 mg/dl (70-90) Laboratory Data (last 24hrs) Test 11/12/16 05:49 Anion Gap 6.0 mmol/L BUN/Creatinine Ratio 5.7 Blood Urea Nitrogen 33 mg/dl Creatinine 5.80 mg/dl Hemoglobin A1c 5.9 % Potassium Level 3.7 mmol/L Sodium Level 135 mmol/L White Blood Count 9.95 K/uL Red Blood Count 2.88 M/uL Hemoglobin 9.2 g/dL Hematocrit 30.8 % Mean Corpuscular Volume 106.9 fL Mean Corpuscular Hemoglobin 31.9 pg Mean Corpuscular Hemoglobin Concent 29.9 g/dl Platelet Count 167 K/uL Mean Platelet Volume 10.3 fL Neutrophils (%) (Auto) 78.0 % Lymphocytes (%) (Auto) 8.6 % Monocytes (%) (Auto) 10.7 % Eosinophils (%) (Auto) 1.3 % Basophils (%) (Auto) 0.1 % Neutrophils # (Auto) 7.76 K/uL Lymphocytes # (Auto) 0.86 K/uL Monocytes # (Auto) 1.06 K/uL Eosinophils # (Auto) 0.13 K/uL Basophils # (Auto) 0.01 K/uL HbA1c Test 11/12/16 05:49 Hemoglobin A1c 5.9 % (4.5-5.6) H Recent Pertinent Medications Outpatient Anti-diabetic Regimen: * Toujeo 70 units TID + Novolog 50/50/90/40 units TIDM/HS snack * Total daily insulin dose = 400-440 units Risk Factors for Insulin Resistance: * Steroids * Infection * Diet Assessment & Plan ASSESSMENT: * 60 yo diabetic F known to glycemic service from prior admissions, readmitted to ICU with cellulitis/respiratory failure * Overnight, pharmacist consulted and entered one time dose of Lantus 80 units ( based on prior admission data) * Insulin drip was then started and soon after, turned off due to hypoglycemia * Based on patient's outpatient regimen (~400 units of insulin/day) and what she typically requires while inpatient (~250 units of insulin/day), I am surprised by her increased sensitivity * She did receive HD last evening which likely played a role in lowing her BSG * Ongoing plan will be to hold basal insulin until BSG >140 and then restart at a half dose * I will loosen Novolog compared to last admission and tighten if BSGs start rise * ADA & AACE recommend a goal blood sugar range 140-180 mg/dl for the majority of critically ill & non-critically ill patients. However, more stringent targets may be selected in individual cases. PLAN FOR INPATIENT GLYCEMIC CONTROL: * D/C insulin drip * Basal insulin with LANTUS 80 units SQ x 1 with dinner (instead of BID) * Correctional Insulin with NOVOLOG per scale ACHS + 00,04 checks * Goal Range: Low 110 mg/dL - High 140 mg/dL * Correction Factor: 10 mg/dL/unit * Nutritional / Prandial insulin per carb ratio of 1 unit per 3 grams CHO consumed * If BSGs continue to trend up, tighten Novolog to CF 5, CR 2 * Please note that the plan above was derived based on current level of insulin resistance and hospital stress. These recommendations are appropriate for inpatient admission only. Plan of care upon discharge will need to be reassessed to avoid potential outpatient hypo/hyperglycemia. Thank you.
[2016-11-12] MEDS: INSULIN ASPART 100 UNITS/ML 3 ML PEN SC SCH ×3 (12:49→21:05)
--- NOTE | 2016-11-12 13:29 | Critical Care Progress Note ---
Critical Care Progress Note Date of Service Nov 12, 2016. ICU Day ICU Day Number: [address] Beasley Subjective Patient is resting comfortably in bed this morning on nasal cannula. Overnight the patient was having worsening lethargy and an ABG showed worsening respiratory acidosis so her BiPAP settings were increased to 16/5. This morning she is significantly more alert and appears much closer to her baseline. She also states that earlier this morning she was having worsening pain in her lower extremities but currently she is no longer in any pain. Objective GENERAL: Awake, alert, obese, in no acute distress on 2L NC HENT: Normocephalic, atraumatic. EYES: Normal conjunctiva. Sclera non-icteric. NECK: Short and thick, trachea midline, no visible JVD RESPIRATORY: Clear to auscultation. CARDIAC: Regular rate, normal rhythm. Extremities warm and well perfused. Pulses equal. ABDOMEN: Soft, non-distended. No tenderness to palpation. RECTAL: Deferred. MUSCULOSKELETAL: Chest examination reveals no tenderness. LOWER EXTREMITIES: Chronic stasis dermatitis in the lower extremities with cellulitis that is warm to touch NEURO: Normal sensorium. No sensory or motor deficits noted. Current SOFA Score SOFA Score Response (Comments) Value Platelets (x10) > 150 0 Bilirubin (mg/dL) < 1.2 0 [place] Coma Score 15 0 Level of Hypotension No Hypotension 0 Creatinine (mg/dL) > 5.0 4 Total 4 Assessment & Plan Patient is a 60 year old female with a complicated past medical history that presented to [facility] with weakness, fatigue, and some confusion. The patient on admission was found to be in respiratory acidosis on VBG and was subsequently placed on BiPAP. The patient was scheduled to go for dialysis this morning that she did not attend, and had a creatinine of 10. The patient went for hemodialysis in the hospital yesterday evening and continued BiPAP overnight. This morning the patient is significantly more alert and is now on nasal cannula. Neuro: - A&O x3 - CAM-ICU: Negative - GCS: 15 - CT Head: No intracranial abnormalities - Sedation: None - Resume home Lyrica 50mg PO Daily Resp: - Chronic Hypercarbic Respiratory Failure 2/2 Obesity Hypoventilation - Currently on home 2L NC - BiPAP - Had setting increased to 16/5 with FiO2 of 35% - CXR: Parenchymal infiltrate at right base. Pulmonary vascular congestion - VBG pH 7.22, pCO2 68, HCO3 27 this morning (after dialysis and overnight BiPAP ) - VBG: pH 7.11, pCO2 79, HCO3 24 on admission - Inhalers: Spiriva 1 puff daily, Advair 1 puff BID - Duoneb QID - Prednisone 50mg daily - Consult to Dr. Herr of Respiratory - VBG at 11am after being on oxygen without BiPAP throughout the morning - After discussion about potential therapies consider current clinical condition , patient states she does NOT want to have a tracheostomy placed CV: - EKG - NSR - Troponin - 0.30 - Resume home Toprol XL 150mg and Atorvastatin 40mg - Echo ordered for the morning GI - Diet: Renal, Low Sodium, Diabetic Diet - GI ppx: Continue home Pepcid 20mg and Protonix 40mg PO Daily Renal - Creatinine of 5.8 after dialysis yesterday evening - Will undergo another cycle of dialysis tomorrow - Creatinine of 10 on admission --> 7.5 when discharged in August but has been as high as 8.9 previously, and missed her scheduled dialysis this morning - Has AVF in left upper arm that was performed on 08/19/[address] Thapa - Nephrology on board Endocrine - Was started on 80mg Lantus BID + Insulin drip last night but became hypoglycemic so discontinued the insulin drip and Lantus - Consulted pharmacy who will continue to monitor POC glucose measurements and re-evaluate throughout the day - Hold home Toujeo - Resume home Allopurinol 100mg PO Daily - A1C 5.7 Heme - Hemoglobin 9.2 --> Normal baseline Hgb base on previous admissions - Received erythropoietin stimulating agents (SAMARA) with dialysis - Procrit 1,000 units - DVT ppx: Heparin 5,000 units q12 ID: - Lower extremity cellulitis --> Chronic vs acute? - Afebrile - Leukocytosis - WBC 11.53 - Vancomycin + Zosyn 4.5g BID - Blood Cultures Pending - Hold home Doxycycline 100mg PO BID - Procalcitonin ordered - Consult ID - Wound Care --> Consider Unna Boots - Desemex powder fungal growth for skin fold Resident Physician Supervision Note: Dr. Godfrey was resident physician during care of patient. I separately evaluated patient and did history and exam. I discussed the case with the resident and generally agree with the findings and plan. Yesterday's encephalopathy due to CO2 narcosis secondary to acute on chronic hypercapnic respiratory failure significantly improved. She received dialysis last night. I discussed with her and her regarding possible need for tracheostomy in the future. The patient expresses that she does not want to undergo tracheostomy. 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 Patient stable for downgraded out of the ICU. Documented By: Jefferson Beasley DO Consults & Procedures Consultants: Nephrology, Pulmonology, ID, Wound Care Procedures: Dialysis Data Medications: Current Inpatient Medications Medications (Trade) Dose Ordered Sig/Duyen Route Start Time Stop Time Status Last Admin Dose Admin Vancomycin HCl (Consult) 1 ea UD N/A 11/11/16 16:25 12/11/16 16:24 Albuterol/ Ipratropium (Duoneb) 3 ml QIDR INH 11/11/16 16:00 12/11/16 15:59 11/12/16 11:43 3 ML Allopurinol (Zyloprim Tab) 100 mg DAILY PO 11/12/16 09:00 12/12/16 08:59 11/12/16 08:44 100 MG Atorvastatin Calcium (Lipitor Tab) 40 mg DAILY PO 11/12/16 09:00 12/12/16 08:59 11/12/16 08:44 40 MG Vitamin B Complex/ Vit C/Folic Acid (Nephrocaps) 1 cap QAM PO 11/12/16 09:00 12/12/16 08:59 11/12/16 08:55 1 CAP Calcium Acetate (Phoslo Cap) 667 mg ACHS PO 11/11/16 16:00 12/11/16 15:59 11/12/16 11:16 667 MG Cholecalciferol (Vitamin D Tab) 1,000 inter.unit DAILY PO 11/12/16 09:00 12/12/16 08:59 11/12/16 08:54 1,000 INTER.UNIT Famotidine (Pepcid Tab) 20 mg DAILY PO 11/12/16 09:00 12/12/16 08:59 11/12/16 08:44 20 MG Salmeterol Xinafoate/ Fluticasone (Advair Diskus 500/50 Inh) 1 puff BID INH 11/11/16 21:00 12/11/16 20:59 11/12/16 08:57 1 PUFF Acetaminophen/ Hydrocodone Bitart ([place] 5/325 Tab) 1 tab Q6H PRN PO 11/11/16 15:30 11/25/16 15:29 Metoprolol Succinate (Toprol Xl Tab) 150 mg SuMoWeFr@0900 PO 11/12/16 09:00 12/12/16 08:59 Multivitamins/ Minerals (Multivitamin W/ Minerals Tab) 1 tab DAILY PO 11/12/16 09:00 12/12/16 08:59 11/12/16 08:56 1 TAB Pantoprazole Sodium (Protonix Tab) 40 mg DAILY PO 11/12/16 09:00 12/12/16 08:59 11/12/16 08:55 40 MG Pyridoxine HCl (Vitamin B-6 Tab) 200 mg DAILY PO 11/12/16 09:00 12/12/16 08:59 11/12/16 08:55 200 MG Silver Sulfadiazine (Silvadene 1% Crm 50GM Jar) 1 appln DAILY EXT 11/12/16 09:00 12/12/16 08:59 11/12/16 08:56 1 APPLN Tiotropium [place] (Spiriva Handihaler Inhaler) 1 puff DAILY INH 11/12/16 09:00 12/12/16 08:59 11/12/16 08:57 1 PUFF Ascorbic Acid (Vitamin C Tab) 1,000 mg DAILY PO 11/12/16 09:00 12/12/16 08:59 11/12/16 08:55 1,000 MG gv-Ggupv-Nebxhkknky Acetate (Vitamin E Cap) 800 interunit DAILY PO 11/12/16 09:00 12/12/16 08:59 11/12/16 08:56 800 INTERUNIT Miscellaneous Information (Consult Glycemic Management Pharmacy) 1 ea UD PRN N/A 11/11/16 16:00 12/11/16 15:59 Heparin Sodium (Porcine) (Heparin Sq 5000 Unit/0.5ml) 5,000 unit Q12 SQ 11/11/16 21:00 12/11/16 20:59 11/12/16 09:01 5,000 UNIT Hydromorphone HCl (Dilaudid Inj) 1 mg Q8H PRN IV 11/11/16 15:30 11/25/16 15:29 11/11/16 17:27 1 MG Pregabalin (Lyrica Cap) 50 mg DAILY PO 11/12/16 09:00 12/12/16 08:59 11/12/16 09:04 50 MG Piperacillin Sod/ Tazobactam Sod 4.5 gm/Dextrose 120 ml @ 30 mls/hr Q12@0400,1600 IV 11/12/16 04:00 11/22/16 03:59 11/12/16 04:01 30 MLS/HR Piperacillin Sod/ Tazobactam Sod (Consult) 1 ea UD N/A 11/11/16 16:30 12/11/16 16:29 Miconazole Nitrate (Desenex Powder) 1 appln PRN PRN EXT 11/11/16 17:15 12/11/16 17:14 11/11/16 19:23 1 APPLN Doxycycline Hyclate (Vibramycin Cap) 100 mg BID PO 11/11/16 21:00 12/12/16 20:59 11/12/16 08:43 100 MG Insulin Aspart (novoLOG ASPART) SLIDING SCALE ACHS SC 11/12/16 11:00 12/12/16 10:59 11/12/16 12:49 8 UNITS Heparin Sodium (Porcine) (Heparin Iv Bolus) 2,000 unit TODAY@0800 IV 11/13/16 08:00 11/13/16 08:01 Heparin Sodium (Porcine) (Heparin Iv Bolus) 1,000 unit Q1H IV 11/13/16 08:00 11/13/16 09:01 Epoetin [place] (Procrit Inj) 10,000 units TODAY@0800 IV. 11/13/16 08:00 11/13/16 13:59 Paricalcitol (Zemplar Inj) 3 mcg TODAY@0800 IV. 11/13/16 08:00 11/13/16 13:59 Prednisone (PredniSONE TAB) 50 mg DAILY PO 11/13/16 09:00 11/16/16 09:01 Vital Signs: Date Time Temp Pulse Resp B/P (MAP) Pulse Ox O2 Delivery O2 Flow Rate FiO2 11/12/16 12:00 Nasal Cannula 2.0 11/12/16 11:43 94 20 94 Nasal Cannula 2.0 11/12/16 11:42 36.6 89 22 128/67 (87) 92 Nasal Cannula 2.0 11/12/16 10:04 121 22 108/66 (80) 90 Nasal Cannula 2.0 11/12/16 10:01 93 12 87/45 (59) 92 Nasal Cannula 2.0 11/12/16 08:16 36.8 88 23 92/44 (60) 93 Nasal Cannula 2.0 11/12/16 08:02 84 94 35 11/12/16 08:00 Nasal Cannula 2.0 11/12/16 07:50 82 20 94 BiPAP/CPAP 35 11/12/16 07:01 80 16 111/36 (61) 96 BiPAP 35 11/12/16 06:02 81 67 109/53 (71) 98 BiPAP 35 11/12/16 05:00 80 10 109/53 (71) 97 BiPAP 35 11/12/16 04:00 97 BiPAP 35 11/12/16 04:00 82 12 106/57 (73) 97 BiPAP 35 11/12/16 03:01 36.9 91 15 103/42 (62) 98 BiPAP 35 11/12/16 02:00 86 18 91/42 (58) 90 BiPAP 35 11/12/16 01:44 37.0 84 98/44 (62) 11/12/16 01:16 87 23 87/40 (56) 94 BiPAP 35 11/12/16 01:13 85 26 98/44 (62) 93 BiPAP 35 11/12/16 01:00 84 92/44 11/12/16 01:00 84 22 92/44 (60) BiPAP 35 11/12/16 00:45 81 85/40 11/12/16 00:45 80 20 85/40 (55) BiPAP 35 11/12/16 00:30 80 85/44 11/12/16 00:15 84 27 94/46 (62) BiPAP 35 11/12/16 00:15 82 94/46 11/12/16 00:00 82 22 89/48 (62) 98 BiPAP 35 11/12/16 00:00 81 89/48 11/11/16 23:59 97 BiPAP 35 11/11/16 23:45 80 103/50 11/11/16 23:45 80 29 103/50 (67) 97 BiPAP 35 11/11/16 23:30 79 85/48 11/11/16 23:30 37.0 79 21 85/48 (60) BiPAP 35 11/11/16 23:15 79 82/49 11/11/16 23:00 78 39 87/46 (60) BiPAP 35 11/11/16 23:00 78 87/46 11/11/16 22:55 80 83/47 11/11/16 22:45 77 81/48 11/11/16 22:41 86/46 11/11/16 22:30 77 73/47 11/11/16 22:21 91/42 11/11/16 22:15 79 83/49 11/11/16 22:00 84 22 99/49 (66) 92 BiPAP 35 11/11/16 22:00 84 99/49 11/11/16 21:45 86 108/84 11/11/16 21:30 86 108/84 11/11/16 21:15 86 108/84 11/11/16 21:10 84 99/70 11/11/16 21:02 88 100 35 11/11/16 21:00 85 17 112/55 (74) 95 BiPAP 35 11/11/16 20:45 82 15 102/45 (64) 98 BiPAP 35 11/11/16 20:30 82 12 90/43 (59) 100 BiPAP 35 11/11/16 20:15 83 12 102/44 (63) 97 BiPAP 35 11/11/16 20:15 36.7 83 102/45 (64) 11/11/16 20:00 94 BiPAP 35 11/11/16 20:00 36.6 85 16 102/45 (64) 96 BiPAP 35 11/11/16 18:55 86 100 35 11/11/16 18:55 112 16 100 BiPAP/CPAP 11/11/16 18:09 95 BiPAP 35 11/11/16 18:00 85 12 125/52 (76) 84 BiPAP 28 11/11/16 17:00 36.9 91 24 132/60 (84) 96 BiPAP 28 11/11/16 17:00 87 BiPAP 28 11/11/16 16:18 86 16 149/69 91 BiPAP 11/11/16 15:49 BiPAP 3.0 28 11/11/16 15:26 89 112/52 91 BiPAP 11/11/16 15:23 90 94 28 11/11/16 15:07 88 16 134/66 96 Room Air 11/11/16 14:28 87 11/11/16 14:13 92 95 35 11/11/16 13:43 88 18 117/57 92 Nasal Cannula 3.0 Laboratory Results: Last 24 Hours Test 11/11/16 15:34 11/11/16 17:51 11/11/16 19:12 11/11/16 19:39 Venous Blood pH 7.11 Venous Blood Partial Pressure CO2 79 mmHg Venous Blood Partial Pressure O2 34 mmHg Venous Blood HCO3 24 mmol/L Venous Blood Oxygen Saturation < 60.0 % Venous Blood Base Excess -6.3 mEq/L Bedside Glucose 271 mg/dl 240 mg/dl Procalcitonin 0.65 ng/ml Test 11/11/16 19:51 11/11/16 20:09 11/11/16 21:35 11/12/16 00:23 Lactic Acid Level 1.1 mmol/L Blood Gas Sample Site R Radial Bedside Blood Gas pH (LAB) 7.09 Bedside Blood Gas pCO2 (LAB) 70 mmHg Bedside Blood Gas pO2 (LAB) 68 mmHg Bedside Blood Gas HCO3 (LAB) 21 meq/L Bedside Blood Gas Total CO2 23 mEq/l Bedside Blood Gas Base Excess (LAB) -9.0 meq/L Bedside Blood Gas O2 Saturation 85.0 % Oleg Test NA Oxygen Delivery Device BIPAP Bedside Oxygen Rate (breaths/min) 12 Bedside FiO2 35 % Blood Gas IPAP 12 Bedside Glucose 239 mg/dl 104 mg/dl Test 11/12/16 00:59 11/12/16 01:27 11/12/16 01:58 11/12/16 02:59 Bedside Glucose 103 mg/dl 85 mg/dl 123 mg/dl 76 mg/dl Test 11/12/16 04:09 11/12/16 05:07 11/12/16 05:32 11/12/16 05:49 Bedside Glucose 70 mg/dl 74 mg/dl 65 mg/dl White Blood Count 9.95 K/uL Red Blood Count 2.88 M/uL Hemoglobin 9.2 g/dL Hematocrit 30.8 % Mean Corpuscular Volume 106.9 fL Mean Corpuscular Hemoglobin 31.9 pg Mean Corpuscular Hemoglobin Concent 29.9 g/dl Platelet Count 167 K/uL Mean Platelet Volume 10.3 fL Neutrophils (%) (Auto) 78.0 % Lymphocytes (%) (Auto) 8.6 % Monocytes (%) (Auto) 10.7 % Eosinophils (%) (Auto) 1.3 % Basophils (%) (Auto) 0.1 % Neutrophils # (Auto) 7.76 K/uL Lymphocytes # (Auto) 0.86 K/uL Monocytes # (Auto) 1.06 K/uL Eosinophils # (Auto) 0.13 K/uL Basophils # (Auto) 0.01 K/uL RDW Standard Deviation 84.1 fL RDW Coefficient of Variation 21.7 % Immature Granulocyte % (Auto) 1.3 % Immature Granulocyte # (Auto) 0.13 K/uL Nucleated RBC Absolute Count (auto) 0.65 K/uL Nucleated Red Blood Cells % 6.5 % Polychromasia 1+ Poikilocytosis PRESENT Anisocytosis PRESENT Macrocytosis PRESENT Sodium Level 135 mmol/L Potassium Level 3.7 mmol/L Chloride Level 103 mmol/L Carbon Dioxide Level 26 mmol/L Anion Gap 6.0 mmol/L Blood Urea Nitrogen 33 mg/dl Creatinine 5.80 mg/dl Est Creatinine Clear Calc Drug Dose 14.1 ml/min Estimated GFR () 8.3 Estimated GFR (Non- 7.2 BUN/Creatinine Ratio 5.7 Random Glucose 80 mg/dl Estimated Average Glucose 123 mg/dl Hemoglobin A1c 5.9 % Calcium Level 7.4 mg/dl Phosphorus Level 4.0 mg/dl Magnesium Level 2.3 mg/dl Hepatitis B Surface Antigen NEG Hepatitis B Surface Antibody NEG Test 11/12/16 05:55 11/12/16 07:41 11/12/16 07:47 11/12/16 09:06 Bedside Glucose 78 mg/dl 102 mg/dl Random Cortisol 10.11 mcg/dl Random Vancomycin Level 10.0 mcg/ml Venous Blood pH 7.22 Venous Blood Partial Pressure CO2 68 mmHg Venous Blood Partial Pressure O2 45 mmHg Venous Blood HCO3 27 mmol/L Venous Blood Oxygen Saturation 73.4 % Venous Blood Base Excess -1.6 mEq/L Test 11/12/16 12:29 Venous Blood pH 7.24 Venous Blood Partial Pressure CO2 61 mmHg Venous Blood Partial Pressure O2 36 mmHg Venous Blood HCO3 26 mmol/L Venous Blood Oxygen Saturation 64.8 % Venous Blood Base Excess -2.6 mEq/L Resident Tracking Resident Involvement: Resident Care Provided Care Provided: Adult Hospital Medicine
[2016-11-12] MEDS ORDERED: GLUCOSE 40% GEL 15 GM TUBE PO PRN (14:15)
[2016-11-12] MEDS ORDERED: DEXTROSE 50% 50 ML SYR IV PRN (14:15)
[2016-11-12] MEDS ORDERED: GLUCAGON FOR INJ 1 MG VIAL SQ PRN (14:15)
[2016-11-12] MEDS ORDERED: GLUCOSE 10 TABS/TUBE PO PRN (14:15)
--- NOTE | 2016-11-12 14:48 | Progress Note ---
Progress Note Date of Service Nov 12, 2016. Progress Note ID Consult Dictated #[id number] A/P: 1. RLE cellulitis -Continue abx for now, follow cultures -thank you
--- NOTE | 2016-11-12 15:03 | INFECT. DISEASE CONSULTATION ---
DATE OF CONSULTATION: 11/12/2016 REQUESTING PHYSICIAN: Dr. Krishna. HISTORY OF PRESENT ILLNESS: This is a 60-year-old female who was admitted to the hospital yesterday after she had worsening confusion at home. She was found to have a creatinine of 10 and an acidosis. She was admitted to the intensive care unit. She did receive dialysis yesterday with improvement in her creatinine. On my examination, she is out of bed to chair and states she is feeling fine. She was noted to have worsening erythema and swelling of her legs. She does have chronic stasis ulcerations and venous insufficiency with recurrent cellulitis. She does admit to having some weeping from her right lower extremity earlier in the week, but states this has resolved spontaneously. She was placed on multiple broad spectrum antibiotics consisting of vancomycin and Zosyn. She initially had a low grade white blood cell count of 11.5, which has improved to 9.9. Her sed rate is 55. Blood cultures were obtained and are pending. She has been afebrile. She is tolerating antibiotics well. She does admit to some pain and tightness in her lower extremities, but denies any drainage or bleeding or trauma to the area. She denies any chest pain, cough, shortness of breath, nausea, vomiting or diarrhea. All remaining review of systems is reviewed and unremarkable. PAST MEDICAL HISTORY: Significant for end-stage renal disease on dialysis, bilateral lower extremity stasis changes, morbid obesity, respiratory failure, obstructive sleep apnea on BiPAP; CHF, COPD, type 2 diabetes, arthritis, hypercalcemia, and hypoventilation syndrome. PAST SURGICAL HISTORY: Significant for a left upper extremity AV fistula. ALLERGIES: SHE IS ALLERGIC TOIODINE, BACTRIM AND CODEINE. FAMILY HISTORY: Noncontributory. SOCIAL HISTORY: Significant for history of tobacco use. She denies any drug or alcohol use. She lives with her family. She has no sick contacts. MEDICATIONS: Include prednisone, heparin, Procrit, Zemplar, insulin, Lantus, allopurinol, Lipitor, Nephrocaps, vitamin D, Pepcid, Toprol-XL, multivitamins, Protonix, vitamin B6, Spiriva, vitamin C, vitamin E, Lyrica, Zosyn, Advair, doxycycline, Desenex powder, DuoNebs, PhosLo, Percocet and Dilaudid. PHYSICAL EXAMINATION: VITAL SIGNS: She is afebrile, pulse 93, respiratory rate 14, blood pressure is 124/62, and oxygen saturation is 92%-94% on 2 liters nasal cannula. GENERAL: She is awake, alert and oriented x3. She is in no acute distress. HEENT: Mucous membranes are moist. Extraocular muscles are intact. HEART: Regular. LUNGS: Clear with decreased breath sounds at the bases bilaterally. ABDOMEN: Obese, soft and nontender. EXTREMITIES: There are lower extremity chronic stasis changes. There is a dried crusting fluid over the right lower extremity, but no active drainage or weeping is noted. LABORATORY STUDIES: CBC today reveals a white blood cell count 9.9, hemoglobin 9.2, and platelets are 167. Chemistry panel reveals a sodium of 135, potassium 3.7, chloride 103, bicarbonate 26, BUN 33, creatinine 5.8, and glucose is 80. Random vancomycin is 10. Hepatitis B is negative. Blood cultures are pending. IMAGING: As above. ASSESSMENT AND PLAN: Right lower extremity cellulitis coupled with a venous stasis ulceration. She will be continued on broad spectrum antibiotics pending the results of blood cultures. Hopefully, she can be narrowed to p.o. antibiotics in the near future. Thank you for this consultation. MEGHANA
--- NOTE | 2016-11-12 16:23 | Pulmonary Consultation ---
History General Date of Service: Nov 12, 2016. Stated Complaint: Acidosis, Co2 Retension, Ams HPI The patient is a 60 year old female who presents to [facility] with complaints of Acidosis, Co2 Retension, Ams. The patient's primary care provider is Emily Isaac C.R.N.P. Ms. Gaytan is a 60-year-old female with past medical history of morbid obesity ( BMI of 53), COPD on long-term oxygen therapy at 3L nasal cannula, chronic hypercapnic respiratory failure secondary to obesity hypoventilation syndrome and obstructive sleep apnea, grade 2 diastolic dysfunction and right ventricular dysfunction, end-stage renal disease on hemodialysis (//Thu) who presents with one-week history of lethargy and fatigue associated with lower extremity weakness and headache. Patient states that she has felt unsteady on her feet and has had the sensation as if she is going to to fall. She usually uses her walker for ambulation but felt unusually shaky. She was also noted by to have intermittent episodes of confusion and increased somnolence. She states that she is compliant with her home Trilogy machine and wears it nightly. She denies any recent fevers, chills, cough, chest pain, shortness of breath or dyspnea on exertion. She states that her lower extremities have also felt unusually heavy associated with itching and swelling. She's had multiple admissions for acute on chronic respiratory failure. Her last admission was in August 2016. She follows up with the [facility] for pulmonary. Her respiratory medications are Advair Diskus 500/61 puff twice a day, Spiriva HandiHaler 1 capsule inhaled daily. She also takes Narco 5 mg/325 one tab by mouth every 6 hours when necessary for pain. In the ED her initial vital signs were temperature 36.7, pulse 80, respiratory rate 20, blood pressure 114/57, pulse oximetry 96% on 3 L nasal cannula. Her laboratory data showed a white blood cell count of 11, hemoglobin of 10.4, platelet count of 2:15, sodium 134, potassium 4.8, chloride 101, carbon dioxide level 26, BUN of 76 and creatinine of 10. Troponin 0.03 Initial VBG 7.14/75/49/25/73.7%. A POC sample was taken and showed a pH of 7.09 /70/68/21/85% on BiPAP 12/5 with FiO2 of 35%. She was admitted to the ICU for acute on chronic hypercapnic failure, altered mental status and fluid overload. BiPAP settings were increased to 16/5 with FiO2 35% Repeat VBG this morning 7.24 /61/36/64.8% and she is status post hemodialysis with removal of 976 mL. creatinine now down to 5.8 from 10. Currently she is on Zosyn 4.5 g every 12 hours, Dilaudid 1 mg every 8 hours when necessary, ipratropium/albuterol nebulizer 4 times a day, Advair Diskus 500/50 and Spiriva 1 puff daily. At the time of my evaluation patient states that she's feeling much better she felt that she is at her baseline. Historian: patient Onset: yesterday Severity: moderate Complaint Status: worsened, persistent Review of Systems Constitutional: reports: as stated in HPI Eyes: reports: as stated in HPI ENT: reports: as stated in HPI Cardiovascular: reports: as stated in HPI Respiratory: reports: as stated in HPI Gastrointestinal: reports: as stated in HPI Genitourinary - Female: reports: as stated in HPI Musculoskeletal: reports: as stated in HPI Integumentary: reports: as stated in HPI Neurologic: reports: as stated in HPI Psychiatric: reports: as stated in HPI Endocrine: as stated in HPI Hematologic / Lymphatic: as stated in HPI Allergic / Immunologic: as stated in HPI All Other Symptoms All Other Systems: Reviewed and Negative Past Medical History Past Medical History: 1. Diastolic CHF. 2. Chronic kidney disease stage IV-on dialysis 3. Diabetes mellitus. 4. Obesity. 5. Hypertension. 6. Chronic venous insufficiency. 7. Cellulitis. 8. COPD, moderate to severe 9. Pulmonary nodules 10. Monoclonal gammopathy 11. Fatty liver 12. Right thyroid nodule s/p biopsy that was negative for malignancy 13. Gout Past Medical History: diabetes, high cholesterol, hypertension Past Surgical History: 1.Hysterectomy 2.Carpal tunnel surgery 3.AV fistula left arm Family History Cancer Diabetes mellitus Gallbladder disease Heart disease Lung disease Cancer Diabetes mellitus Gallbladder disease Heart disease Lung disease Positive for heart disease, lung problems, diabetes and cancer--father pancreatic cancer Social History Former tobacco use with 70 Pk year history. Quit in 2009. She denies any alcohol or illicit drug use. She is and lives with . Hx Tobacco Use In Past Year?: No Smoking Status: Former Smoker Alcohol: socially, no current use Drug Use: none Marital status: Housing status: lives with family Occupational Status: unemployed Immunizations History of Influenza Vaccine: Yes Influenza Vaccine Date: Apr 15, 2012 History of Tetanus Vaccine?: No History of Pneumococcal: Yes Pneumococcal Date: Jan 13, 2013 History of Hepatitis B Vaccine: No History of MDRO History of MDRO: No Allergies Coded Allergies: Daptomycin (Verified Allergy, Mild, HIVES, 11/11/16) itching Iodine (Verified Allergy, Unknown, 11/11/16) Shellfish (Verified Allergy, Unknown, 11/11/16) Sulfamethoxazole w/Trimethoprim (Verified Allergy, Unknown, RASH, 11/11/16) Codeine (Verified Adverse Reaction, Unknown, NAUSEA, 11/11/16) has tolerated morphine Uncoded Allergies: kristina wipes (Allergy, Severe, red rash, excoriation, 09/19/16) comfort baths (Adverse Reaction, Severe, rash, "breaks out all over", ) Current Medications Reported Home Medications Medications Dose Route/Sig Max Daily Dose Days Date Category Dose Instructions Monodox (Doxycycline Monohydrate) 100 Mg Cap 100 Mg PO DAILY 11/11/16 Reported Silvadene (Silver Sulfadiazine) 1 % Cre 1 Appln TOP DAILY 7 11/11/16 Reported Phoslo 667 Mg (Calcium Acetate (Phosphate Bin) 667 Mg Cap 667 Mg PO ACHS 09/16/16 Reported Renal (B-Complex W/ C & Folic Acid) 1 Cap Cap 1 Cap PO QAM 30 08/25/16 Rx Batson 5MG/325MG (Acetaminophen/Hydrocodone Bitart) Tab 1 Tab PO Q6H PRN 3 08/25/16 Rx PRN PAIN Famotidine 20 Mg Tab 20 Mg PO DAILY 30 08/25/16 Rx Lyrica (Pregabalin) 75 Mg Cap 75 Mg PO BID 30 08/25/16 Rx Protonix (Pantoprazole Sodium) 40 Mg Tab 40 Mg PO DAILY 08/13/16 Reported Oxygen Gas 3 Liters NA CONTINOUS 08/13/16 Reported Toujeo Solostar (Insulin Glargine) 300 Unit/Ml Inj 70 Units SC TID 08/13/16 Reported ADMINISTER WITH BREAKFAST, EVENING MEAL AND AT BEDTIME Duoneb (Ipratropium-Albuterol) 3 Ml Nebu 1 Treatment INH Q6H PRN 07/10/16 Reported Vitamin E 400 Unit Tab 800 Inter.unit PO DAILY 05/05/16 Reported Vitamin D3 (Cholecalciferol) 1,000 Unit Tab 1,000 Inter.unit PO DAILY 05/05/16 Reported Spiriva Handihaler (Tiotropium [place]) 30 Puff/540 Mcg Aerp 1 Cap INH DAILY 05/05/16 Reported One Daily For Women (Multiple Vitamins W/ Minerals) 1 Tab Tab 1 Tab PO DAILY 05/05/16 Reported Lipitor (Atorvastatin Calcium) 40 Mg Tab 40 Mg PO DAILY 05/05/16 Reported Advair Diskus 500/50 60 Dose (Fluticasone Prop/Salmeterol) 1 Ea Aerp 1 Puff INH BID 05/05/16 Reported Novolog Flexpen (Insulin Aspart) 100 Units/Ml Inj 40 Units SQ HS PRN 02/25/16 Reported Toprol-Xl (Metoprolol Succinate) 100 Mg Tabcr 150 Mg PO UD 02/26/14 Reported 150MG DAILY ON NON-DIALYSIS DAYS. NONE ON DIALYSIS DAYS ( THURSDAY, THURSDAY, THURSDAY) Novolog Flexpen (Insulin Aspart) 100 Units/Ml Inj 90 Units SQ W/SUPPER 09/28/13 Reported Novolog Flexpen (Insulin Aspart) 100 Units/Ml Inj 50 Units SQ W/LUNCH 09/28/13 Reported Novolog Flexpen (Insulin Aspart) 100 Units/Ml Inj 50 Units SQ W/BREAKFAST 09/28/13 Reported Zyloprim (Allopurinol) 100 Mg Tab 100 Mg PO DAILY 09/28/13 Reported Vitamin C 500 mg (Ascorbic Acid) 1 Chw Chw 1,000 Mg PO DAILY 04/15/13 Reported Vitamin B6 (Pyridoxine HCl) 100 Mg Tab 200 Mg PO DAILY 04/15/13 Reported Physical Physical Exam Vital Signs: Date Time Temp Pulse Resp B/P (MAP) Pulse Ox O2 Delivery O2 Flow Rate FiO2 11/12/16 14:00 93 14 124/62 (82) 92 Nasal Cannula 2.0 11/12/16 12:00 Nasal Cannula 2.0 11/12/16 11:43 94 20 94 Nasal Cannula 2.0 11/12/16 11:42 36.6 89 22 128/67 (87) 92 Nasal Cannula 2.0 11/12/16 10:04 121 22 108/66 (80) 90 Nasal Cannula 2.0 11/12/16 10:01 93 12 87/45 (59) 92 Nasal Cannula 2.0 11/12/16 08:16 36.8 88 23 92/44 (60) 93 Nasal Cannula 2.0 11/12/16 08:02 84 94 35 11/12/16 08:00 Nasal Cannula 2.0 11/12/16 07:50 82 20 94 BiPAP/CPAP 35 11/12/16 07:01 80 16 111/36 (61) 96 BiPAP 35 11/12/16 06:02 81 67 109/53 (71) 98 BiPAP 35 11/12/16 05:00 80 10 109/53 (71) 97 BiPAP 35 11/12/16 04:00 97 BiPAP 35 11/12/16 04:00 82 12 106/57 (73) 97 BiPAP 35 11/12/16 03:01 36.9 91 15 103/42 (62) 98 BiPAP 35 11/12/16 02:00 86 18 91/42 (58) 90 BiPAP 35 11/12/16 01:44 37.0 84 98/44 (62) 11/12/16 01:16 87 23 87/40 (56) 94 BiPAP 35 11/12/16 01:13 85 26 98/44 (62) 93 BiPAP 35 11/12/16 01:00 84 92/44 11/12/16 01:00 84 22 92/44 (60) BiPAP 35 11/12/16 00:45 81 85/40 11/12/16 00:45 80 20 85/40 (55) BiPAP 35 11/12/16 00:30 80 85/44 11/12/16 00:15 84 27 94/46 (62) BiPAP 35 11/12/16 00:15 82 94/46 11/12/16 00:00 82 22 89/48 (62) 98 BiPAP 35 11/12/16 00:00 81 89/48 11/11/16 23:59 97 BiPAP 35 11/11/16 23:45 80 103/50 11/11/16 23:45 80 29 103/50 (67) 97 BiPAP 35 11/11/16 23:30 79 85/48 11/11/16 23:30 37.0 79 21 85/48 (60) BiPAP 35 11/11/16 23:15 79 82/49 11/11/16 23:00 78 39 87/46 (60) BiPAP 35 11/11/16 23:00 78 87/46 11/11/16 22:55 80 83/47 11/11/16 22:45 77 81/48 11/11/16 22:41 86/46 11/11/16 22:30 77 73/47 11/11/16 22:21 91/42 11/11/16 22:15 79 83/49 11/11/16 22:00 84 22 99/49 (66) 92 BiPAP 35 11/11/16 22:00 84 99/49 11/11/16 21:45 86 108/84 11/11/16 21:30 86 108/84 11/11/16 21:15 86 108/84 11/11/16 21:10 84 99/70 11/11/16 21:02 88 100 35 11/11/16 21:00 85 17 112/55 (74) 95 BiPAP 35 11/11/16 20:45 82 15 102/45 (64) 98 BiPAP 35 11/11/16 20:30 82 12 90/43 (59) 100 BiPAP 35 11/11/16 20:15 83 12 102/44 (63) 97 BiPAP 35 11/11/16 20:15 36.7 83 102/45 (64) 11/11/16 20:00 94 BiPAP 35 11/11/16 20:00 36.6 85 16 102/45 (64) 96 BiPAP 35 11/11/16 18:55 86 100 35 11/11/16 18:55 112 16 100 BiPAP/CPAP 11/11/16 18:09 95 BiPAP 35 11/11/16 18:00 85 12 125/52 (76) 84 BiPAP 28 11/11/16 17:00 36.9 91 24 132/60 (84) 96 BiPAP 28 11/11/16 17:00 87 BiPAP 28 11/11/16 16:18 86 16 149/69 91 BiPAP 11/11/16 15:49 BiPAP 3.0 28 11/11/16 15:26 89 112/52 91 BiPAP VITAL SIGNS - reviewed GENERAL -Morbidly obese female out of bed sitting in chair HEAD - NC/AT. Topete facies. EYES - Sclera anicteric. Palpebral conjunctiva pink and moist with no injection noted. EARS - No deformities of external structures noted on gross examination bilaterally. NOSE - Midline and without cyanosis. NECK - Neck with FROM. supple, NT, thick short neck MOUTH-No oral thrush noted, Mallampati IV LUNGS - Chest wall symmetric without accessory muscle use, intercostals retractions, or central cyanosis. Normal vesicular breath sounds CTA B/L. No wheezes, rales, or rhonchi appreciated. Right PermCath in place. HEART - RRR with S1/S2. No murmur, rubs, or gallops appreciated. ABDOMEN - Obese, BS normoactive, No tenderness. EXTREMITIES - No clubbing or peripheral cyanosis. Bilateral pitting edema +2, NEUROLOGIC - Cranial nerves II through XII grossly intact. Sensory intact PSYCH - A&Ox 3, No suicidal ideations. SKIN - Blateral lower extremity edema, Chronic venous changes. Dry. Diagnostics Labs Results Past 24 Hours Test 11/11/16 15:34 11/11/16 17:51 11/11/16 19:12 11/11/16 19:39 Range/Units Venous Blood pH 7.11 7.36-7.41 Venous Blood Partial Pressure CO2 79 38.0-50.0 mmHg Venous Blood Partial Pressure O2 34 mmHg Venous Blood HCO3 24 mmol/L Venous Blood Oxygen Saturation < 60.0 % Venous Blood Base Excess -6.3 mEq/L Bedside Glucose 271 240 70-90 mg/dl Procalcitonin 0.65 0-0.5 ng/ml Test 11/11/16 19:51 11/11/16 20:09 11/11/16 21:35 11/12/16 00:23 Range/Units Lactic Acid Level 1.1 0.4-2.0 mmol/L Blood Gas Sample Site R Radial Bedside Blood Gas pH (LAB) 7.09 7.35-7.45 Bedside Blood Gas pCO2 (LAB) 70 35-46 mmHg Bedside Blood Gas pO2 (LAB) 68 80-95 mmHg Bedside Blood Gas HCO3 (LAB) 21 19-24 meq/L Bedside Blood Gas Total CO2 23 24-31 mEq/l Bedside Blood Gas Base Excess (LAB) -9.0 -9-1.8 meq/L Bedside Blood Gas O2 Saturation 85.0 90-95 % Oleg Test NA Oxygen Delivery Device BIPAP Bedside Oxygen Rate (breaths/min) 12 Bedside FiO2 35 % Blood Gas IPAP 12 Bedside Glucose 239 104 70-90 mg/dl Test 11/12/16 00:59 11/12/16 01:27 11/12/16 01:58 11/12/16 02:59 Range/Units Bedside Glucose 103 85 123 76 70-90 mg/dl Test 11/12/16 04:09 11/12/16 05:07 11/12/16 05:32 11/12/16 05:49 Range/Units Bedside Glucose 70 74 65 70-90 mg/dl White Blood Count 9.95 4.8-10.8 K/uL Red Blood Count 2.88 4.2-5.4 M/uL Hemoglobin 9.2 12.0-16.0 g/dL Hematocrit 30.8 37-47 % Mean Corpuscular Volume 106.9 80-100 fL Mean Corpuscular Hemoglobin 31.9 25-34 pg Mean Corpuscular Hemoglobin Concent 29.9 32-36 g/dl Platelet Count 167 130-400 K/uL Mean Platelet Volume 10.3 7.4-10.4 fL Neutrophils (%) (Auto) 78.0 % Lymphocytes (%) (Auto) 8.6 % Monocytes (%) (Auto) 10.7 % Eosinophils (%) (Auto) 1.3 % Basophils (%) (Auto) 0.1 % Neutrophils # (Auto) 7.76 1.4-6.5 K/uL Lymphocytes # (Auto) 0.86 1.2-3.4 K/uL Monocytes # (Auto) 1.06 0.11-0.59 K/uL Eosinophils # (Auto) 0.13 0-0.5 K/uL Basophils # (Auto) 0.01 0-0.2 K/uL RDW Standard Deviation 84.1 36.4-46.3 fL RDW Coefficient of Variation 21.7 11.5-14.5 % Immature Granulocyte % (Auto) 1.3 % Immature Granulocyte # (Auto) 0.13 0.00-0.02 K/uL Nucleated RBC Absolute Count (auto) 0.65 0-0 K/uL Nucleated Red Blood Cells % 6.5 % Polychromasia 1+ Poikilocytosis PRESENT Anisocytosis PRESENT Macrocytosis PRESENT Sodium Level 135 136-145 mmol/L Potassium Level 3.7 3.5-5.1 mmol/L Chloride Level 103 98-107 mmol/L Carbon Dioxide Level 26 21-32 mmol/L Anion Gap 6.0 3-11 mmol/L Blood Urea Nitrogen 33 7-18 mg/dl Creatinine 5.80 0.60-1.20 mg/dl Est Creatinine Clear Calc Drug Dose 14.1 ml/min Estimated GFR () 8.3 Estimated GFR (Non- 7.2 BUN/Creatinine Ratio 5.7 10-20 Random Glucose 80 70-99 mg/dl Estimated Average Glucose 123 mg/dl Hemoglobin A1c 5.9 4.5-5.6 % Calcium Level 7.4 8.5-10.1 mg/dl Phosphorus Level 4.0 2.5-4.9 mg/dl Magnesium Level 2.3 1.8-2.4 mg/dl Hepatitis B Surface Antigen NEG NEG Hepatitis B Surface Antibody NEG Test 11/12/16 05:55 11/12/16 07:41 11/12/16 07:47 11/12/16 09:06 Range/Units Bedside Glucose 78 102 70-90 mg/dl Random Cortisol 10.11 mcg/dl Random Vancomycin Level 10.0 mcg/ml Venous Blood pH 7.22 7.36-7.41 Venous Blood Partial Pressure CO2 68 38.0-50.0 mmHg Venous Blood Partial Pressure O2 45 mmHg Venous Blood HCO3 27 mmol/L Venous Blood Oxygen Saturation 73.4 % Venous Blood Base Excess -1.6 mEq/L Test 11/12/16 11:18 11/12/16 12:29 Range/Units Bedside Glucose 130 70-90 mg/dl Venous Blood pH 7.24 7.36-7.41 Venous Blood Partial Pressure CO2 61 38.0-50.0 mmHg Venous Blood Partial Pressure O2 36 mmHg Venous Blood HCO3 26 mmol/L Venous Blood Oxygen Saturation 64.8 % Venous Blood Base Excess -2.6 mEq/L Microbiology Results 11/11/16 Blood Culture, Received Pending 11/11/16 Blood Culture, Received Pending Diagnostic Radiology CXR 11/11/2016 FINDINGS: PermCath in superior vena cava. Mild cardiomegaly. Parenchymal infiltrate right base. Pulmonary vascular congestion. CT head without contrast 11/11/2016 FINDINGS: No intra or extra-axial mass lesions are visualized. There is no CT evidence of acute cortical infarction. There is no evidence of midline shift. There is no acute hemorrhage. No calvarial fractures are visualized. There are minor white matter hypodensities likely on a small vessel basis. There is no evidence of pathologic ventricular dilatation. There is no evidence of acute sinusitis IMPRESSION: No acute intracranial findings IMPRESSION: Parenchymal inf is a is iltrate right base. Pulmonary vascular congestion. Mild cardiomegaly. TTE 11/12/2016 * The left ventricle is normal in size. * There is normal left ventricular wall thickness. * Ejection Fraction = >70 %. * The left ventricle is hyperdynamic. * Diastolic dysfunction, Grade II (pseudonormalization pattern). * No regional wall motion abnormalities noted. * The right ventricle is not well visualized. * The right ventricle is moderately dilated. * The right ventricular systolic function is moderately reduced. CXR 09/19/2016 IMPRESSION: Mild right basilar infiltrate superimposed upon chronic pulmonary vascular congestion. CT chest 02/13/2016 FINDINGS: Lungs remain clear. Parenchymal nodules remain unchanged. There is no interval or progressive pulmonary nodularity. Bronchiectatic and atelectatic change medial right middle lobe as well as lingula persist and appears stable. There is currently no significant mediastinal or hilar adenopathy. Low density region involving the right hepatic lobe has resolved. 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 This is unchanged. IMPRESSION: Stable exam. No evidence for progressive pulmonary nodularity. Improved liver appearance with a low-density region resolved. No additional follow-up is required TTE 07/25/2015 * Ejection Fraction = >70 %. * A full diastolic examination was done with clinical findings of Class I diastolic dysfunction. * No regional wall motion abnormalities noted. * The right ventricle is mildly dilated. * The right ventricular systolic function is mildly reduced. * There is mild tricuspid regurgitation. * Right ventricular systolic pressure is elevated at 30-40mmHg. EKG EKG from 11/11/2016 Normal sinus rhythm at 80 bpm. Impression Assessment and Plan Acute on chronic hypoxic and hyperbaric respiratory failure Obesity hypoventilation syndrome (Pickwickian Syndrome) COPD MIKAYLA ESRD on HD Diastolic dysfunction Patient has acute on chronic hypoxic and hypercapnic respiratory failure which is most likely multifactorial in natures. She has COPD, MIKAYLA and OHS. Her chest xray does appear to have increased vascular congestion consistent and right lower lobe opacity that is unchanged from previous imaging back in August. I suspect that this is atelectasis. I feel that compliance with her trilogy BIPAP machine is up for question. At the current time of would continue with nasal cannula to obtain a SaO2 of about 88-92%. Be careful not to hyperoxygenate her as this can worsen CO2 retention. Continue with BiPAP - at current settings 16/5 with FiO2 of 35% during naps and at night Avoid narcotics and sedatives at this can worsen hypercarbia Continue Duonebs q6h , Advair 500/50 1 puff BID inh, Spiriva 1 puff daily, continue with Prednisone 50 mg with a slow taper. Can continue to treat empirically for pneumonia. Send sputum cultures. Continue with cardiac medications for better diastolic dysfunction and HD by nephrology for fluid removal. Continue with heparin SC for DVT ppx Lastly, we discussed tracheostomy at length as this may be option for her persistent hypercarbia. She states that she needs time to think about it and discuss with her family. I appreciate the consult and will continue to follow with you. Please contact me if you have any questions or concerns.
--- NOTE | 2016-11-12 16:37 | Progress Note ---
Subjective Date of Service: Nov 12, 2016. Subjective Pt evaluation today including: conversation w/ patient, physical exam, chart review, lab review, review of studies Patient reports feeling better than when she cam in. She states that her breathing has improved and she is not as short of breath as she once was. In regards to her lower extremities, she continues to have intermittent moderate burning sensations bilaterally blow her knees to her feet which she attributes to her neuropathy. Problem List Medical Problems: (1) Acute respiratory failure with hypoxia and hypercarbia Status: Acute (2) Altered mental status Status: Acute (3) Anasarca Status: Acute (4) Anasarca Status: Acute (5) Bilateral cellulitis of lower leg Status: Acute (6) Bilateral lower leg cellulitis Status: Acute (7) Change in mental status Status: Acute (8) Chronic renal failure Status: Acute (9) CO2 retention Status: Acute (10) Contusion of multiple sites Status: Acute (11) Dehydration Status: Acute (12) Dyspnea on exertion Status: Acute (13) Fall Status: Acute (14) Fall Status: Acute (15) Fever Status: Acute (16) Fever Status: Acute (17) Generalized weakness Status: Acute (18) Hypercarbia Status: Acute (19) Hyperkalemia Status: Acute (20) Hypokalemia Status: Acute (21) Hypoventilation Status: Acute (22) Hypoxemia Status: Acute (23) Hypoxia Status: Acute (24) Lumbar strain Status: Acute (25) Metabolic acidosis Status: Acute (26) Nail avulsion of toe Status: Acute (27) Obesity Status: Acute (28) Respiratory acidosis Status: Acute (29) Respiratory failure Status: Acute (30) Weakness Status: Acute (31) Weight gain Status: Acute (32) Wrist pain Status: Acute Review of Systems Constitutional: + chills, + weakness, No fever, No sweats, No weight loss Eyes: No worsening of vision ENT: No hearing loss, No unusual epistaxis Respiratory: + cough, + wheezing, + shortness of breath, + dyspnea on exertion Cardiac: No chest pain, No orthopnea Abdomen: No pain, No nausea Musculoskeletal: No joint pain Female : No dysuria, No urinary frequency Heme: No abnormal bleeding/bruising Endo: No fatigue Skin: + rash All Other Systems: Reviewed and Negative Medications Current Inpatient Medications Medications (Trade) Dose Ordered Sig/Duyen Route Start Time Stop Time Status Last Admin Dose Admin Vancomycin HCl (Consult) 1 ea UD N/A 11/11/16 16:25 12/11/16 16:24 Albuterol/ Ipratropium (Duoneb) 3 ml QIDR INH 11/11/16 16:00 12/11/16 15:59 11/12/16 19:57 3 ML Allopurinol (Zyloprim Tab) 100 mg DAILY PO 11/12/16 09:00 12/12/16 08:59 11/12/16 08:44 100 MG Atorvastatin Calcium (Lipitor Tab) 40 mg DAILY PO 11/12/16 09:00 12/12/16 08:59 11/12/16 08:44 40 MG Vitamin B Complex/ Vit C/Folic Acid (Nephrocaps) 1 cap QAM PO 11/12/16 09:00 12/12/16 08:59 11/12/16 08:55 1 CAP Calcium Acetate (Phoslo Cap) 667 mg ACHS PO 11/11/16 16:00 12/11/16 15:59 11/12/16 21:03 667 MG Cholecalciferol (Vitamin D Tab) 1,000 inter.unit DAILY PO 11/12/16 09:00 12/12/16 08:59 11/12/16 08:54 1,000 INTER.UNIT Famotidine (Pepcid Tab) 20 mg DAILY PO 11/12/16 09:00 12/12/16 08:59 11/12/16 08:44 20 MG Salmeterol Xinafoate/ Fluticasone (Advair Diskus 500/50 Inh) 1 puff BID INH 11/11/16 21:00 12/11/16 20:59 11/12/16 21:03 1 PUFF Acetaminophen/ Hydrocodone Bitart ([place] 5/325 Tab) 1 tab Q6H PRN PO 11/11/16 15:30 11/25/16 15:29 Metoprolol Succinate (Toprol Xl Tab) 150 mg SuMoWeFr@0900 PO 11/12/16 09:00 12/12/16 08:59 Multivitamins/ Minerals (Multivitamin W/ Minerals Tab) 1 tab DAILY PO 11/12/16 09:00 12/12/16 08:59 11/12/16 08:56 1 TAB Pantoprazole Sodium (Protonix Tab) 40 mg DAILY PO 11/12/16 09:00 12/12/16 08:59 11/12/16 08:55 40 MG Pyridoxine HCl (Vitamin B-6 Tab) 200 mg DAILY PO 11/12/16 09:00 12/12/16 08:59 11/12/16 08:55 200 MG Silver Sulfadiazine (Silvadene 1% Crm 50GM Jar) 1 appln DAILY EXT 11/12/16 09:00 12/12/16 08:59 11/12/16 08:56 1 APPLN Tiotropium [place] (Spiriva Handihaler Inhaler) 1 puff DAILY INH 11/12/16 09:00 12/12/16 08:59 11/12/16 08:57 1 PUFF Ascorbic Acid (Vitamin C Tab) 1,000 mg DAILY PO 11/12/16 09:00 12/12/16 08:59 11/12/16 08:55 1,000 MG by-Pujav-Kgjpkrkilu Acetate (Vitamin E Cap) 800 interunit DAILY PO 11/12/16 09:00 12/12/16 08:59 11/12/16 08:56 800 INTERUNIT Miscellaneous Information (Consult Glycemic Management Pharmacy) 1 UD PRN N/A 11/11/16 16:00 12/11/16 15:59 Heparin Sodium (Porcine) (Heparin Sq 5000 Unit/0.5ml) 5,000 unit Q12 SQ 11/11/16 21:00 12/11/16 20:59 11/12/16 21:06 5,000 UNIT Hydromorphone HCl (Dilaudid Inj) 1 mg Q8H PRN IV 11/11/16 15:30 11/25/16 15:29 11/11/16 17:27 1 MG Pregabalin (Lyrica Cap) 50 mg DAILY PO 11/12/16 09:00 12/12/16 08:59 11/12/16 09:04 50 MG Piperacillin Sod/ Tazobactam Sod 4.5 gm/Dextrose 120 ml @ 30 mls/hr Q12@0400,1600 IV 11/12/16 04:00 11/22/16 03:59 Piperacillin Sod/ Tazobactam Sod (Consult) 1 UD N/A 11/11/16 16:30 12/11/16 16:29 Miconazole Nitrate (Desenex Powder) 1 appln PRN PRN EXT 11/11/16 17:15 12/11/16 17:14 11/11/16 19:23 1 APPLN Doxycycline Hyclate (Vibramycin Cap) 100 mg BID PO 11/11/16 21:00 12/12/16 20:59 11/12/16 21:04 100 MG Insulin Aspart (novoLOG ASPART) SLIDING SCALE ACHS SC 11/12/16 11:00 12/12/16 10:59 11/12/16 21:05 22 UNITS Heparin Sodium (Porcine) (Heparin Iv Bolus) 2,000 unit TODAY@0800 IV 11/13/16 08:00 11/13/16 08:01 Heparin Sodium (Porcine) (Heparin Iv Bolus) 1,000 unit Q1H IV 11/13/16 08:00 11/13/16 09:01 Epoetin Simba (Procrit Inj) 10,000 units TODAY@0800 IV. 11/13/16 08:00 11/13/16 13:59 Paricalcitol (Zemplar Inj) 3 mcg TODAY@0800 IV. 11/13/16 08:00 11/13/16 13:59 Prednisone (PredniSONE TAB) 50 mg DAILY PO 11/13/16 09:00 11/16/16 09:01 Glucose (Glucose 40% Gel) 15-30 GRAMS 15 GRAMS... UD PRN PO 11/12/16 14:15 12/12/16 14:14 Glucose (Glucose Chew Tab) 4-8 Tablets 4 Tabl... UD PRN PO 11/12/16 14:15 12/12/16 14:14 Dextrose (Dextrose 50% 50ML Syringe) 25-50ML OF 50% DW IV FOR... UD PRN IV 11/12/16 14:15 12/12/16 14:14 Glucagon (Glucagon Inj) 1 mg UD PRN SQ 11/12/16 14:15 12/12/16 14:14 Insulin Aspart (novoLOG ASPART) SLIDING SCALE 0000,0400 SC 11/13/16 00:00 12/13/16 00:00 Objective Vital Signs Date Time Temp Pulse Resp B/P (MAP) Pulse Ox O2 Delivery O2 Flow Rate FiO2 11/12/16 15:50 96 20 93 Nasal Cannula 2.0 9/13/17 14:00 93 14 124/62 (82) 92 Nasal Cannula 2.0 11/12/16 12:00 Nasal Cannula 2.0 11/12/16 11:43 94 20 94 Nasal Cannula 2.0 11/12/16 11:42 36.6 89 22 128/67 (87) 92 Nasal Cannula 2.0 11/12/16 10:04 121 22 108/66 (80) 90 Nasal Cannula 2.0 11/12/16 10:01 93 12 87/45 (59) 92 Nasal Cannula 2.0 11/12/16 08:16 36.8 88 23 92/44 (60) 93 Nasal Cannula 2.0 11/12/16 08:02 84 94 35 11/12/16 08:00 Nasal Cannula 2.0 11/12/16 07:50 82 20 94 BiPAP/CPAP 35 11/12/16 07:01 80 16 111/36 (61) 96 BiPAP 35 11/12/16 06:02 81 67 109/53 (71) 98 BiPAP 35 11/12/16 05:00 80 10 109/53 (71) 97 BiPAP 35 11/12/16 04:00 97 BiPAP 35 11/12/16 04:00 82 12 106/57 (73) 97 BiPAP 35 11/12/16 03:01 36.9 91 15 103/42 (62) 98 BiPAP 35 11/12/16 02:00 86 18 91/42 (58) 90 BiPAP 35 11/12/16 01:44 37.0 84 98/44 (62) 11/12/16 01:16 87 23 87/40 (56) 94 BiPAP 35 11/12/16 01:13 85 26 98/44 (62) 93 BiPAP 35 11/12/16 01:00 84 92/44 11/12/16 01:00 84 22 92/44 (60) BiPAP 35 11/12/16 00:45 81 85/40 11/12/16 00:45 80 20 85/40 (55) BiPAP 35 11/12/16 00:30 80 85/44 11/12/16 00:15 84 27 94/46 (62) BiPAP 35 11/12/16 00:15 82 94/46 11/12/16 00:00 82 22 89/48 (62) 98 BiPAP 35 11/12/16 00:00 81 89/48 11/11/16 23:59 97 BiPAP 35 11/11/16 23:45 80 103/50 11/11/16 23:45 80 29 103/50 (67) 97 BiPAP 35 11/11/16 23:30 79 85/48 11/11/16 23:30 37.0 79 21 85/48 (60) BiPAP 35 11/11/16 23:15 79 82/49 11/11/16 23:00 78 39 87/46 (60) BiPAP 35 11/11/16 23:00 78 87/46 11/11/16 22:55 80 83/47 11/11/16 22:45 77 81/48 11/11/16 22:41 86/46 11/11/16 22:30 77 73/47 11/11/16 22:21 91/42 11/11/16 22:15 79 83/49 11/11/16 22:00 84 22 99/49 (66) 92 BiPAP 35 11/11/16 22:00 84 99/49 11/11/16 21:45 86 108/84 11/11/16 21:30 86 108/84 11/11/16 21:15 86 108/84 11/11/16 21:10 84 99/70 11/11/16 21:02 88 100 35 11/11/16 21:00 85 17 112/55 (74) 95 BiPAP 35 11/11/16 20:45 82 15 102/45 (64) 98 BiPAP 35 11/11/16 20:30 82 12 90/43 (59) 100 BiPAP 35 11/11/16 20:15 83 12 102/44 (63) 97 BiPAP 35 11/11/16 20:15 36.7 83 102/45 (64) 11/11/16 20:00 94 BiPAP 35 11/11/16 20:00 36.6 85 16 102/45 (64) 96 BiPAP 35 11/11/16 18:55 86 100 35 11/11/16 18:55 112 16 100 BiPAP/CPAP 11/11/16 18:09 95 BiPAP 35 11/11/16 18:00 85 12 125/52 (76) 84 BiPAP 28 11/11/16 17:00 36.9 91 24 132/60 (84) 96 BiPAP 28 11/11/16 17:00 87 BiPAP 28 Physical Exam General Appearance: WD/WN, no apparent distress Neck: supple, no adenopathy (obese, large neck circumference) Respiratory/Chest: chest non-tender, normal breath sounds, no respiratory distress, no accessory muscle use Cardiovascular: regular rate, rhythm, no edema, no gallop Extremities: + calf tenderness (erythema noted on bilateral legs from knees to foot. TTP) Skin: normal color (dry skin noted on sole of feet) Lymphatic: no adenopathy Laboratory Results Last 24 Hours Test 11/11/16 17:51 11/11/16 19:12 11/11/16 19:39 11/11/16 19:51 Bedside Glucose 271 mg/dl 240 mg/dl Procalcitonin 0.65 ng/ml Lactic Acid Level 1.1 mmol/L Test 11/11/16 20:09 11/11/16 21:35 11/12/16 00:23 11/12/16 00:59 Blood Gas Sample Site R Radial Bedside Blood Gas pH (LAB) 7.09 Bedside Blood Gas pCO2 (LAB) 70 mmHg Bedside Blood Gas pO2 (LAB) 68 mmHg Bedside Blood Gas HCO3 (LAB) 21 meq/L Bedside Blood Gas Total CO2 23 mEq/l Bedside Blood Gas Base Excess (LAB) -9.0 meq/L Bedside Blood Gas O2 Saturation 85.0 % Oleg Test NA Oxygen Delivery Device BIPAP Bedside Oxygen Rate (breaths/min) 12 Bedside FiO2 35 % Blood Gas IPAP 12 Bedside Glucose 239 mg/dl 104 mg/dl 103 mg/dl Test 11/12/16 01:27 11/12/16 01:58 11/12/16 02:59 11/12/16 04:09 Bedside Glucose 85 mg/dl 123 mg/dl 76 mg/dl 70 mg/dl Test 11/12/16 05:07 11/12/16 05:32 11/12/16 05:49 11/12/16 05:55 Bedside Glucose 74 mg/dl 65 mg/dl 78 mg/dl White Blood Count 9.95 K/uL Red Blood Count 2.88 M/uL Hemoglobin 9.2 g/dL Hematocrit 30.8 % Mean Corpuscular Volume 106.9 fL Mean Corpuscular Hemoglobin 31.9 pg Mean Corpuscular Hemoglobin Concent 29.9 g/dl Platelet Count 167 K/uL Mean Platelet Volume 10.3 fL Neutrophils (%) (Auto) 78.0 % Lymphocytes (%) (Auto) 8.6 % Monocytes (%) (Auto) 10.7 % Eosinophils (%) (Auto) 1.3 % Basophils (%) (Auto) 0.1 % Neutrophils # (Auto) 7.76 K/uL Lymphocytes # (Auto) 0.86 K/uL Monocytes # (Auto) 1.06 K/uL Eosinophils # (Auto) 0.13 K/uL Basophils # (Auto) 0.01 K/uL RDW Standard Deviation 84.1 fL RDW Coefficient of Variation 21.7 % Immature Granulocyte % (Auto) 1.3 % Immature Granulocyte # (Auto) 0.13 K/uL Nucleated RBC Absolute Count (auto) 0.65 K/uL Nucleated Red Blood Cells % 6.5 % Polychromasia 1+ Poikilocytosis PRESENT Anisocytosis PRESENT Macrocytosis PRESENT Sodium Level 135 mmol/L Potassium Level 3.7 mmol/L Chloride Level 103 mmol/L Carbon Dioxide Level 26 mmol/L Anion Gap 6.0 mmol/L Blood Urea Nitrogen 33 mg/dl Creatinine 5.80 mg/dl Est Creatinine Clear Calc Drug Dose 14.1 ml/min Estimated GFR () 8.3 Estimated GFR (Non- 7.2 BUN/Creatinine Ratio 5.7 Random Glucose 80 mg/dl Estimated Average Glucose 123 mg/dl Hemoglobin A1c 5.9 % Calcium Level 7.4 mg/dl Phosphorus Level 4.0 mg/dl Magnesium Level 2.3 mg/dl Hepatitis B Surface Antigen NEG Hepatitis B Surface Antibody NEG Test 11/12/16 07:41 11/12/16 07:47 11/12/16 09:06 11/12/16 11:18 Random Cortisol 10.11 mcg/dl Random Vancomycin Level 10.0 mcg/ml Bedside Glucose 102 mg/dl 130 mg/dl Venous Blood pH 7.22 Venous Blood Partial Pressure CO2 68 mmHg Venous Blood Partial Pressure O2 45 mmHg Venous Blood HCO3 27 mmol/L Venous Blood Oxygen Saturation 73.4 % Venous Blood Base Excess -1.6 mEq/L Test 11/12/16 12:29 Venous Blood pH 7.24 Venous Blood Partial Pressure CO2 61 mmHg Venous Blood Partial Pressure O2 36 mmHg Venous Blood HCO3 26 mmol/L Venous Blood Oxygen Saturation 64.8 % Venous Blood Base Excess -2.6 mEq/L Assessment and Plan ) Acute and chronic hypercarbic respiratory failure treated with O2 via BiPAP, IVP Bicarb, and Emergent HD Admitted to the ICU yesterday after she had worsening confusion at home. She was found to have a creatinine of 10 and an acidosis. . She did receive dialysis yesterday with improvement in her creatinine. Patient's mental status improved, Is on BIPAP, and will likely be downgraded today. Patient currently has a diagnosis of COPD but unsure if this is the case given no PFT are in the chart, will obtain one as an outpatient. Continue management by pulmonary and intensive care. This is also likely complicated by her large BMI over 50 and large neck circumference. ESRD on dialysis Manage by nephrology COPD excaerbation likely with celluilitis Patient is on vanco and zosyn day 1. Will consult ID. Pulmonary does not believe that the x-ray finding is likley atelectasis and not pneumonia. Chronic Diastolic CHF as noted on 2-d echo. Diabetes type 2 section HBA1C was 5.9. It appears controlled. will continue Insulin sliding scale. dvt proph:Heparin subq GI prophylaxis: continue home PPI Continued [facility] stay due to: ambulation difficulties, other (Reqies iv antibiotics, recovering from copd exacerbation) Discharge planning: uncertain
[2016-11-12] MEDS ORDERED: INSULIN GLARGINE SC ONE (17:15)
[2016-11-12] MEDS: HYDROCODONE/ACETAMOPHEN 5/325MG TAB PO PRN (17:54)
[2016-11-13] VITALS (27 sets, daily range): BP systolic 95–164; BP diastolic 42–76; PULSE 84–102; TEMP 36.4–37; O2SAT 90–98
[2016-11-13] MEDS: INSULIN ASPART 100 UNITS/ML 3 ML PEN SC SCH ×6 (00:21→20:48)
[2016-11-13] MEDS: HYDROCODONE/ACETAMOPHEN 5/325MG TAB PO PRN ×2 (01:04→14:54)
[2016-11-13] MEDS: PIPERACILL/TAZOBAC IV 4.5 GM in DEXTROSE 5% 100ML IV SCH ×2 (04:17→17:07)
[2016-11-13] MEDS: ALBUT/IPRATROP 3MG/0.5MG NEB 3 ML VIAL INH SCH ×3 (07:11→20:20)
[2016-11-13] MEDS: PREGABALIN 50 MG CAP PO SCH (07:42)
[2016-11-13] MEDS: FLUTICASONE/SALMETEROL (ADVAIR) 500/50 INH 14 PUFF INH SCH ×2 (07:43→20:38)
[2016-11-13] MEDS: TIOTROPIUM BROMIDE 5 PUFF/90 MCG INH INH SCH (07:43)
[2016-11-13] MEDS: ATORVASTATIN 40 MG TAB PO SCH (07:43)
[2016-11-13] MEDS: ALLOPURINOL 100 MG TAB PO SCH (07:43)
[2016-11-13] MEDS: PYRIDOXINE HCL 50 MG TAB PO SCH (07:44)
[2016-11-13] MEDS: CALCIUM ACETATE 667MG GELCAP PO SCH ×4 (07:44→20:38)
[2016-11-13] MEDS: ASCORBIC ACID 500 MG TAB PO SCH (07:44)
[2016-11-13] MEDS: CHOLECALCIFEROL 1000 INTER.UNIT TAB PO SCH (07:45)
[2016-11-13] MEDS: CEROVITE ADV FORMULA TAB PO SCH (07:45)
[2016-11-13] MEDS: TOCOPHERYL, DL-ALPHA 400 INTER.UNIT CAP PO SCH (07:45)
[2016-11-13] MEDS: FAMOTIDINE 20 MG TAB PO SCH (07:45)
[2016-11-13] MEDS: DOXYCYCLINE HYCLATE 100 MG CAP PO SCH ×2 (07:45→20:39)
[2016-11-13] MEDS: NEPHROCAPS PO SCH (07:45)
[2016-11-13] MEDS: PANTOprazole SOD 40 MG TAB PO SCH (07:45)
--- NOTE | 2016-11-13 07:46 | DIAGNOSTIC IMAGING REPORT ---
CHEST ONE VIEW PORTABLE CLINICAL HISTORY: 60 years-old Female presenting with eval for infiltrate, chf. TECHNIQUE: Portable upright AP view of the chest was obtained. COMPARISON: 11/11/2016. FINDINGS: Tunneled right internal jugular dialysis catheter terminates in the lower SVC. Mild prominence of the cardiac silhouette unchanged. Slight interval decrease in pulmonary vascular prominence. Hazy bibasilar opacities slightly decreased from prior. No large effusion or pneumothorax. Osseous structures normal. Upper abdomen normal. IMPRESSION: 1. Mild cardiomegaly with slight interval decrease in pulmonary edema and pulmonary vascular congestion. Electronically signed by: Curry Roa M.D. 11/13/2016 7:44 AM Dictated Date/Time: 11/13/2016 7:43 AM
[2016-11-13] MEDS: INSULIN GLARGINE SC SCH ×2 (07:50→20:49)
[2016-11-13] MEDS ORDERED: EPOETIN ALFA 10,000 UNITS/ML VIAL IV. SCH (08:00)
[2016-11-13] MEDS ORDERED: PARICALCITOL 5 MCG/ML VIAL (ZEMPLAR) IV. SCH (08:00)
[2016-11-13] MEDS ORDERED: HEPARIN SOD (PORCINE) 1000 UNIT/ML 10 ML VIAL IV SCH (08:00)
[2016-11-13 08:20] LABS: BASO % 0.2 %; BASO ABS # 0.02 K/uL (0-0.2); EOS % 0.5 %; HEMATOCRIT 33.8 % (37-47); IG% 1.5 %; LYMPH % 7.3 %; LYMPH ABS # 0.76 K/uL (1.2-3.4); MEAN CELL VOLUME 104.3 fL (80-100); MEAN CORPUSCULAR HEMOGLOBIN 31.8 pg (25-34); MEAN CORPUSCULAR HGB CONC 30.5 g/dl (32-36); MEAN PLATELET VOLUME 10.2 fL (7.4-10.4); MONO % 12.2 %; NEUT % 78.3 %; PLATELET COUNT 171 K/uL (130-400); RED BLOOD COUNT 3.24 M/uL (4.2-5.4); WHITE BLOOD COUNT 10.36 K/uL (4.8-10.8)
[2016-11-13 08:46] LABS: ANISOCYTOSIS PRESENT; COMPLETE YES
[2016-11-13] MEDS: SILVER SULFADIAZINE 1% CR 50 GM JAR EXT SCH (09:00)
[2016-11-13] MEDS: HEPARIN SOD 5000 UNIT/0.5 ML CARP SQ SCH ×2 (09:00→20:49)
[2016-11-13 09:10] LABS: BUN/CREATININE RATIO 7.1 (10-20); CALCIUM 8.4 mg/dl (8.5-10.1); CREATININE 7.9 mg/dl (0.60-1.20); POTASSIUM 4.6 mmol/L (3.5-5.1)
[2016-11-13] MEDS: HEPARIN SOD (PORCINE) 1000 UNIT/ML 10 ML VIAL IV SCH ×2 (10:15→11:06)
--- NOTE | 2016-11-13 11:12 | Dialysis Progress Note ---
Hemodialysis Note Date of Service Nov 13, 2016. Chief Complaint ESRD requiring HD Subjective Mrs. Gaytan was seen & examined during her HD treatment this morning. She has only been off her CPAP for one hour and is awake and alert. Her primary concern is LE discomfort due to cellulitis Review of Systems Constitutional: No fever Cardiovascular: No chest pain Respiratory: No dyspnea at rest Abdomen: No pain, No nausea Extremities: + leg edema A complete review of systems was performed. Pertinent positives are noted above. All other systems are negative. Vital Signs Last 8 Hrs Date Time Temp Pulse Resp B/P (MAP) Pulse Ox O2 Delivery O2 Flow Rate FiO2 11/13/16 10:30 86 162/76 11/13/16 10:15 87 161/72 11/13/16 10:00 87 121/51 11/13/16 09:45 94 146/62 11/13/16 09:30 90 164/71 11/13/16 09:15 86 164/67 11/13/16 09:13 88 153/70 11/13/16 08:59 36.4 98 142/57 (85) 11/13/16 08:01 37.0 84 18 129/74 (92) 97 11/13/16 08:00 Nasal Cannula 3.0 11/13/16 07:11 94 20 91 Nasal Cannula 3.0 11/13/16 04:20 36.6 92 22 95/54 (68) 98 BiPAP 11/13/16 04:00 Nasal Cannula 4.0 Last Recorded Weight Weight (Kilograms): 148.300 Physical Exam General Appearance: no apparent distress Head: atraumatic, + pertinent finding (lara facies) Eyes: PERRL, EOMI Neck: + pertinent finding (short thick neck) Respiratory/Chest: + pertinent finding (poor inspiratory effort. Lungs CTA anteriorly. Patient could not sit forward for evaluation of posterior lung rain) Cardiovascular: regular rate, rhythm Abdomen/GI: non tender, soft (obese) Extremities/Musculoskelatal: + pertinent finding (1+ pretibial pitting edema. LE cellulitis is less erythematous) Neurologic/Psych: alert, oriented x 3 Family History Negative for CKD / ESRD Social History Smoking Status: Former smoker Drug Use: none Marital Status: Housing Status: lives with family Occupation: unemployed . Lives at home. Former smoker Laboratory Results Past 24 Hours 11/13/16 07:46 Red Blood Count 3.24, Mean Corpuscular Volume 104.3, Mean Corpuscular Hemoglobin 31.8, Mean Corpuscular Hemoglobin Concent 30.5, Mean Platelet Volume 10.2, Neutrophils (%) (Auto) 78.3, Lymphocytes (%) (Auto) 7.3, Monocytes (%) ( Auto) 12.2, Eosinophils (%) (Auto) 0.5, Basophils (%) (Auto) 0.2, Neutrophils # (Auto) 8.11, Lymphocytes # (Auto) 0.76, Monocytes # (Auto) 1.26, Eosinophils # ( Auto) 0.05, Basophils # (Auto) 0.02 11/13/16 07:46 Test 11/12/16 11:18 11/12/16 12:29 11/12/16 16:32 11/12/16 21:00 Bedside Glucose 130 mg/dl (70-90) 206 mg/dl (70-90) 355 mg/dl (70-90) Venous Blood pH 7.24 (7.36-7.41) Venous Blood Partial Pressure CO2 61 mmHg (38.0-50.0) Venous Blood Partial Pressure O2 36 mmHg Venous Blood HCO3 26 mmol/L Venous Blood Oxygen Saturation 64.8 % Venous Blood Base Excess -2.6 mEq/L Test 11/13/16 00:06 11/13/16 04:07 11/13/16 07:40 11/13/16 07:46 Bedside Glucose 324 mg/dl (70-90) 204 mg/dl (70-90) 168 mg/dl (70-90) White Blood Count 10.36 K/uL (4.8-10.8) Red Blood Count 3.24 M/uL (4.2-5.4) Hemoglobin 10.3 g/dL (12.0-16.0) Hematocrit 33.8 % (37-47) Mean Corpuscular Volume 104.3 fL (80-100) Mean Corpuscular Hemoglobin 31.8 pg (25-34) Mean Corpuscular Hemoglobin Concent 30.5 g/dl (32-36) Platelet Count 171 K/uL (130-400) Mean Platelet Volume 10.2 fL (7.4-10.4) Neutrophils (%) (Auto) 78.3 % Lymphocytes (%) (Auto) 7.3 % Monocytes (%) (Auto) 12.2 % Eosinophils (%) (Auto) 0.5 % Basophils (%) (Auto) 0.2 % Neutrophils # (Auto) 8.11 K/uL (1.4-6.5) Lymphocytes # (Auto) 0.76 K/uL (1.2-3.4) Monocytes # (Auto) 1.26 K/uL (0.11-0.59) Eosinophils # (Auto) 0.05 K/uL (0-0.5) Basophils # (Auto) 0.02 K/uL (0-0.2) RDW Standard Deviation 82.4 fL (36.4-46.3) RDW Coefficient of Variation 22.1 % (11.5-14.5) Immature Granulocyte % (Auto) 1.5 % Immature Granulocyte # (Auto) 0.16 K/uL (0.00-0.02) Nucleated RBC Absolute Count (auto) 0.73 K/uL (0-0) Nucleated Red Blood Cells % 7.0 % Anisocytosis PRESENT Anion Gap 7.0 mmol/L (3-11) Est Creatinine Clear Calc Drug Dose 10.3 ml/min Estimated GFR () 5.7 Estimated GFR (Non- 5.0 BUN/Creatinine Ratio 7.1 (10-20) Calcium Level 8.4 mg/dl (8.5-10.1) Random Vancomycin Level 24.1 mcg/ml Allergies Coded Allergies: Daptomycin (Verified Allergy, Mild, HIVES, 11/11/16) itching Iodine (Verified Allergy, Unknown, 11/11/16) Shellfish (Verified Allergy, Unknown, 11/11/16) Sulfamethoxazole w/Trimethoprim (Verified Allergy, Unknown, RASH, 11/11/16) Codeine (Verified Adverse Reaction, Unknown, NAUSEA, 11/11/16) has tolerated morphine Uncoded Allergies: kristina wipes (Allergy, Severe, red rash, excoriation, 09/19/16) comfort baths (Adverse Reaction, Severe, rash, "breaks out all over", ) Medications Current Inpatient Medications Medications (Trade) Dose Ordered Sig/Duyen Route Start Time Stop Time Status Last Admin Dose Admin Vancomycin HCl (Consult) 1 ea UD N/A 11/11/16 16:25 12/11/16 16:24 Albuterol/ Ipratropium (Duoneb) 3 ml QIDR INH 11/11/16 16:00 12/11/16 15:59 11/13/16 07:11 3 ML Allopurinol (Zyloprim Tab) 100 mg DAILY PO 11/12/16 09:00 12/12/16 08:59 11/13/16 07:43 100 MG Atorvastatin Calcium (Lipitor Tab) 40 mg DAILY PO 11/12/16 09:00 12/12/16 08:59 11/13/16 07:43 40 MG Vitamin B Complex/ Vit C/Folic Acid (Nephrocaps) 1 cap QAM PO 11/12/16 09:00 12/12/16 08:59 11/13/16 07:45 1 CAP Calcium Acetate (Phoslo Cap) 667 mg ACHS PO 11/11/16 16:00 12/11/16 15:59 11/13/16 07:44 667 MG Cholecalciferol (Vitamin D Tab) 1,000 inter.unit DAILY PO 11/12/16 09:00 12/12/16 08:59 11/13/16 07:45 1,000 INTER.UNIT Famotidine (Pepcid Tab) 20 mg DAILY PO 11/12/16 09:00 12/12/16 08:59 11/13/16 07:45 20 MG Salmeterol Xinafoate/ Fluticasone (Advair Diskus 500/50 Inh) 1 puff BID INH 11/11/16 21:00 12/11/16 20:59 11/13/16 07:43 1 PUFF Acetaminophen/ Hydrocodone Bitart ([place] 5/325 Tab) 1 tab Q6H PRN PO 11/11/16 15:30 11/25/16 15:29 11/13/16 01:04 1 TAB Metoprolol Succinate (Toprol Xl Tab) 150 mg SuMoWeFr@0900 PO 11/12/16 09:00 12/12/16 08:59 Multivitamins/ Minerals (Multivitamin W/ Minerals Tab) 1 tab DAILY PO 11/12/16 09:00 12/12/16 08:59 11/13/16 07:45 1 TAB Pantoprazole Sodium (Protonix Tab) 40 mg DAILY PO 11/12/16 09:00 12/12/16 08:59 11/13/16 07:45 40 MG Pyridoxine HCl (Vitamin B-6 Tab) 200 mg DAILY PO 11/12/16 09:00 12/12/16 08:59 11/13/16 07:44 200 MG Silver Sulfadiazine (Silvadene 1% Crm 50GM Jar) 1 appln DAILY EXT 11/12/16 09:00 12/12/16 08:59 11/12/16 08:56 1 APPLN Tiotropium [place] (Spiriva Handihaler Inhaler) 1 puff DAILY INH 11/12/16 09:00 12/12/16 08:59 11/13/16 07:43 1 PUFF Ascorbic Acid (Vitamin C Tab) 1,000 mg DAILY PO 11/12/16 09:00 12/12/16 08:59 11/13/16 07:44 1,000 MG [id number] Acetate (Vitamin E Cap) 800 interunit DAILY PO 11/12/16 09:00 12/12/16 08:59 11/13/16 07:45 800 INTERUNIT Miscellaneous Information (Consult Glycemic Management Pharmacy) 1 UD PRN N/A 11/11/16 16:00 12/11/16 15:59 Heparin Sodium (Porcine) (Heparin Sq 5000 Unit/0.5ml) 5,000 unit Q12 SQ 11/11/16 21:00 12/11/16 20:59 11/12/16 21:06 5,000 UNIT Hydromorphone HCl (Dilaudid Inj) 1 mg Q8H PRN IV 11/11/16 15:30 11/25/16 15:29 11/11/16 17:27 1 MG Pregabalin (Lyrica Cap) 50 mg DAILY PO 11/12/16 09:00 12/12/16 08:59 11/13/16 07:42 50 MG Piperacillin Sod/ Tazobactam Sod 4.5 gm/Dextrose 120 ml @ 30 mls/hr Q12@0400,1600 IV 11/12/16 04:00 11/22/16 03:59 11/13/16 04:17 30 MLS/HR Piperacillin Sod/ Tazobactam Sod (Consult) 1 ea UD N/A 11/11/16 16:30 12/11/16 16:29 Miconazole Nitrate (Desenex Powder) 1 appln PRN PRN EXT 11/11/16 17:15 12/11/16 17:14 11/11/16 19:23 1 APPLN Doxycycline Hyclate (Vibramycin Cap) 100 mg BID PO 11/11/16 21:00 12/12/16 20:59 11/13/16 07:45 100 MG Insulin Aspart (novoLOG ASPART) SLIDING SCALE ACHS SC 11/12/16 11:00 12/12/16 10:59 11/13/16 07:49 22 UNITS Epoetin Simba (Procrit Inj) 10,000 units TODAY@0800 IV. 11/13/16 08:00 11/13/16 13:59 Paricalcitol (Zemplar Inj) 3 mcg TODAY@0800 IV. 11/13/16 08:00 11/13/16 13:59 Prednisone (PredniSONE TAB) 50 mg DAILY PO 11/13/16 09:00 11/16/16 09:01 11/13/16 07:45 50 MG Glucose (Glucose 40% Gel) 15-30 GRAMS 15 GRAMS... UD PRN PO 11/12/16 14:15 12/12/16 14:14 Glucose (Glucose Chew Tab) 4-8 Tablets 4 Tabl... UD PRN PO 11/12/16 14:15 12/12/16 14:14 Dextrose (Dextrose 50% 50ML Syringe) 25-50ML OF 50% DW IV FOR... UD PRN IV 11/12/16 14:15 12/12/16 14:14 Glucagon (Glucagon Inj) 1 mg UD PRN SQ 11/12/16 14:15 12/12/16 14:14 Insulin Aspart (novoLOG ASPART) SLIDING SCALE 0000,0400 SC 11/13/16 00:00 12/13/16 00:00 11/13/16 04:11 13 UNITS Insulin Glargine (Lantus Vial) 80 units BID SC 11/13/16 09:00 12/13/16 08:59 11/13/16 07:50 80 UNITS Impression (1) ESRD on hemodialysis (2) Hypercapnic respiratory failure (3) Obesity hypoventilation syndrome (4) Cellulitis of leg Mrs. Gaytan has recurrent hypercapnic respiratory failure despite adherence to NIPPV at home. Her CXR is concerning for a RLL infiltrate. Patient has dry cracked skin on her feet and bilateral LE cellulitis. She has ESRD due to cardiorenal syndrome and requires TTS HD (4.5hr F-180NR Qb300 Qd A1.5 3K 2.5 Ca EDW 137.7 kg Heparin 2000 load w/ 1000 units hourly). She has not yet HD today. BUN is markedly elevated but other electrolytes including serum bicarbonate are currently acceptable. Recommendations END STAGE RENAL DISEASE: -- Medically stable on HD this am. IJ THC functioning A:A at Qb 300 cc/min. No change to current HD prescription -- IJ THC placed 07/25/16. L upper arm AVF created 08/19/[address] Thapa. AVF has + bruit but venous limb is too deep for use. Will ask Vascular Surgery to assess AVF this hospitalization for possible transposition. -- Lyrica dose reduced to 50 mg daily given after dialysis on dialysis days to adjust for ESRD HYPERTENSION: -- Blood pressure is mildly elevated. 1 L UF ordered w/ HD today. Will monitor bp ANEMIA: -- Will monitor H&H and provide SAMARA as needed to keep Hgb 10 - 11 ID: -- Patient has a RLL infiltrate and LE cellulitis. -- Patient is on Vanco, Zosyn and Doxycycline -- One of two blood cultures w/ G+ cocci. -- CXR film reviewed this am: R basilar infiltrate unchanged. No overt CHF PULM: -- Pulmonology recommendations reviewed this am. Tracheostomy is being discussed due to recurrent hypercarbic respiratory failure when off CPAP therapy
--- NOTE | 2016-11-13 12:45 | Pharmacy Progress Note ---
Pharmacy Abx Dose Short Note Date of Service Nov 13, 2016. Assessment & Plan Assessment 60 year old female receiving Vancomycin/Zosyn for treatment of cellulitis/ positive blood culture. Only 1/2 blood cultures positive with Gram (+) cocci. New set of blood cultures sent to lab. ID following. Hopeful to deescalate to PO therapy in near future. Day # 3 of antimicrobial therapy. Plan Vancomycin * Dosing to be based on Pre-HD levels; Random level this AM = 24.1 mcg/mL. * Patient to receive HD this AM. * Re-dose Vancomycin 500 mg IV X 1 post-HD and re-evaluate in the AM. * If no HD, no dose will likely be necessary. * Goal level to guide re-dosing 15-20 mcg/mL * Random level ordered for: 11/14/16 Pharmacy will continue to follow and will adjust dose/frequency as necessary. Thank you.
--- NOTE | 2016-11-13 13:37 | Progress Note ---
Subjective Date of Service: Nov 13, 2016. Subjective pt in hd, transferred from ICU, tolerating hd. remains on abx, tolerating well. remains afebrile. 1/2 initial blood cultures with gpc. repeat pending. wbc 10. afebrile. no overnight events. Problem List Medical Problems: (1) Acute respiratory failure with hypoxia and hypercarbia Status: Acute (2) Altered mental status Status: Acute (3) Anasarca Status: Acute (4) Anasarca Status: Acute (5) Bilateral cellulitis of lower leg Status: Acute (6) Bilateral lower leg cellulitis Status: Acute (7) Change in mental status Status: Acute (8) Chronic renal failure Status: Acute (9) CO2 retention Status: Acute (10) Contusion of multiple sites Status: Acute (11) Dehydration Status: Acute (12) Dyspnea on exertion Status: Acute (13) Fall Status: Acute (14) Fall Status: Acute (15) Fever Status: Acute (16) Fever Status: Acute (17) Generalized weakness Status: Acute (18) Hypercarbia Status: Acute (19) Hyperkalemia Status: Acute (20) Hypokalemia Status: Acute (21) Hypoventilation Status: Acute (22) Hypoxemia Status: Acute (23) Hypoxia Status: Acute (24) Lumbar strain Status: Acute (25) Metabolic acidosis Status: Acute (26) Nail avulsion of toe Status: Acute (27) Obesity Status: Acute (28) Respiratory acidosis Status: Acute (29) Respiratory failure Status: Acute (30) Weakness Status: Acute (31) Weight gain Status: Acute (32) Wrist pain Status: Acute Objective Vital Signs Date Time Temp Pulse Resp B/P (MAP) Pulse Ox O2 Delivery O2 Flow Rate FiO2 11/13/16 13:13 36.7 95 154/71 (98) 11/13/16 13:00 94 152/68 11/13/16 12:45 90 142/42 11/13/16 12:30 96 141/68 11/13/16 12:15 93 164/70 11/13/16 12:00 94 138/45 11/13/16 11:45 92 151/71 11/13/16 11:30 87 163/69 11/13/16 11:15 85 141/70 11/13/16 11:00 90 153/70 11/13/16 10:45 88 157/69 11/13/16 10:30 86 162/76 11/13/16 10:15 87 161/72 11/13/16 10:00 87 121/51 11/13/16 09:45 94 146/62 11/13/16 09:30 90 164/71 11/13/16 09:15 86 164/67 11/13/16 09:13 88 153/70 11/13/16 08:59 36.4 98 142/57 (85) 11/13/16 08:01 37.0 84 18 129/74 (92) 97 11/13/16 08:00 Nasal Cannula 3.0 11/13/16 07:11 94 20 91 Nasal Cannula 3.0 11/13/16 04:20 36.6 92 22 95/54 (68) 98 BiPAP 11/13/16 04:00 Nasal Cannula 4.0 11/13/16 00:01 Nasal Cannula 4.0 11/12/16 23:59 36.7 98 22 98/58 (71) 96 BiPAP 11/12/16 22:57 36.5 107 20 104/62 (76) 93 Nasal Cannula 4.0 11/12/16 20:00 36.7 99 16 81/63 (69) 92 Nasal Cannula 3.0 11/12/16 20:00 92 Nasal Cannula 3.0 11/12/16 19:57 92 20 89 Nasal Cannula 3.0 11/12/16 17:00 36.9 106 24 94/50 (65) 91 Nasal Cannula 2.0 11/12/16 16:00 92 Nasal Cannula 2.0 11/12/16 16:00 36.9 99 16 85/46 (59) 92 Nasal Cannula 2.0 11/12/16 15:50 96 20 93 Nasal Cannula 2.0 11/12/16 14:00 93 14 124/62 (82) 92 Nasal Cannula 2.0 Laboratory Results Item Value Date Time Blood Culture - Preliminary Resulted 11/11/16 1609 Blood Gram Positive Cocci Blood Culture - Preliminary Resulted 11/11/16 1912 Blood NO GROWTH TO DATE. Last 24 Hours Test 11/12/16 16:32 11/12/16 21:00 11/13/16 00:06 11/13/16 04:07 Bedside Glucose 206 mg/dl 355 mg/dl 324 mg/dl 204 mg/dl Test 11/13/16 07:40 11/13/16 07:46 Bedside Glucose 168 mg/dl White Blood Count 10.36 K/uL Red Blood Count 3.24 M/uL Hemoglobin 10.3 g/dL Hematocrit 33.8 % Mean Corpuscular Volume 104.3 fL Mean Corpuscular Hemoglobin 31.8 pg Mean Corpuscular Hemoglobin Concent 30.5 g/dl Platelet Count 171 K/uL Mean Platelet Volume 10.2 fL Neutrophils (%) (Auto) 78.3 % Lymphocytes (%) (Auto) 7.3 % Monocytes (%) (Auto) 12.2 % Eosinophils (%) (Auto) 0.5 % Basophils (%) (Auto) 0.2 % Neutrophils # (Auto) 8.11 K/uL Lymphocytes # (Auto) 0.76 K/uL Monocytes # (Auto) 1.26 K/uL Eosinophils # (Auto) 0.05 K/uL Basophils # (Auto) 0.02 K/uL RDW Standard Deviation 82.4 fL RDW Coefficient of Variation 22.1 % Immature Granulocyte % (Auto) 1.5 % Immature Granulocyte # (Auto) 0.16 K/uL Nucleated RBC Absolute Count (auto) 0.73 K/uL Nucleated Red Blood Cells % 7.0 % Anisocytosis PRESENT Sodium Level 132 mmol/L Potassium Level 4.6 mmol/L Chloride Level 100 mmol/L Carbon Dioxide Level 25 mmol/L Anion Gap 7.0 mmol/L Blood Urea Nitrogen 56 mg/dl Creatinine 7.90 mg/dl Est Creatinine Clear Calc Drug Dose 10.3 ml/min Estimated GFR () 5.7 Estimated GFR (Non- 5.0 BUN/Creatinine Ratio 7.1 Random Glucose 154 mg/dl Calcium Level 8.4 mg/dl Random Vancomycin Level 24.1 mcg/ml Assessment and Plan (1) Positive blood culture Assessment & Plan: continue abx, follow final. repeat pending. (2) Cellulitis of leg Continued [facility] stay due to: ambulation difficulties, other (Reqies iv antibiotics, recovering from copd exacerbation) Discharge planning: uncertain
[2016-11-13] MEDS ORDERED: VANCOMYCIN INJ 500 MG in SODIUM CHLORIDE 0.9% 250ML 250 ML IV SCH (14:00)
--- NOTE | 2016-11-13 16:28 | Pulmonology Progress Note ---
Pulmonary Progress Note Date of Service Nov 13, 2016. Attending Dr. Praveen Burns I had a conversation with the patient & her . She is feeling slightly improved. She continues to have mildly labored breathing. She continues nasal cannula O2 supplementation. She complains of no stomach or chest pain, but feels bloated. Labs 11/13: WBC 10.36 Hgb 10.3 Creatinine 7.9 Sodium 132 K+ 4.6 Cl- 100 Bicarb 25 ABG 11/12 12:29 pH 7.24 pCO2 61 pO2 36 HCO3 26 Initial blood cultures growing GPC in 1/2 cultures. Repeat cultures pending CXR 11/13 showed mild cardiomegaly with slight decrease in pulmonary edema and pulmonary vascular congestion. Images viewed. Inpatient medications reviewed: Continued Prednisone 50 mg daily Vancomycin, Zosyn empirically pending blood cultures Advair 500/50 1 puff BID, Duoneb Objective VS Reviewed: Afebrile over last 24 hours HR elevated up to 107 SaO2 down to 89% on 2 L nasal cannula last night and has been above 90% today on 3-4 L nasal cannula. CHEST ONE VIEW PORTABLE CLINICAL HISTORY: 60 years-old Female presenting with eval for infiltrate, chf. TECHNIQUE: Portable upright AP view of the chest was obtained. COMPARISON: 11/11/2016. FINDINGS: Tunneled right internal jugular dialysis catheter terminates in the lower SVC. Mild prominence of the cardiac silhouette unchanged. Slight interval decrease in pulmonary vascular prominence. Hazy bibasilar opacities slightly decreased from prior. No large effusion or pneumothorax. Osseous structures normal. Upper abdomen normal. IMPRESSION: 1. Mild cardiomegaly with slight interval decrease in pulmonary edema and pulmonary vascular congestion. General: Patient is awake, alert, cooperative. Morbidly obese. Mild respiratory distress. Head: Normocephalic, Atraumatic. ENT: PERRLA, No discharge, EOMI, Sclera normal Neck: Normal ROM. Trachea midline. No stridor Respiratory: Decreased breath sounds throughout- especially at bases. No accessory muscle use. Cardiovascular: Tachycardia Abdomen: Nontender to palpation. Distended Extremities: Moderate edema of the bilateral lower extremities Neuro: Alert, Oriented x 3. CN II-XII grossly intact. Sensation and motor function grossly intact. Psych: Mood and affect are normal. Assessment & Plan Acute on chronic hypoxic and hypercarbic respiratory failure Obesity hypoventilation syndrome COPD MIKAYLA ESRD on HD Diastolic dysfunction Patient is currently slightly improved. Her respiratory failure is likely multifactorial incluidng COPD, MIKAYLA, and OHS. She admits to not using her BiPAP routinely at home. She will need continued, reliable BiPAP treatment. She understands. Continue nasal cannula O2 supplementation to maintain saturation between 88-92% ideally to avoid hyperoxygenation and worsening CO2 retention. Avoid narcotics/sedatives if possible to avoid respiratory depression and hypercarbia Continue Duonebs, Advair, Spiriva, and prednisone taper- taper prednisone very slowly Patient continues IV Vancomycin an Zosyn empirically. ID following. Blood cultures pending. Follow nephrology recommendations in regards to fluid management Continue DVT ppx with Heparin Pulmonary will sign off. Call with questions. Thank you Data Medications: Current Inpatient Medications Medications (Trade) Dose Ordered Sig/Duyen Route Start Time Stop Time Status Last Admin Dose Admin Vancomycin HCl (Consult) 1 ea UD N/A 11/11/16 16:25 12/11/16 16:24 Albuterol/ Ipratropium (Duoneb) 3 ml QIDR INH 11/11/16 16:00 12/11/16 15:59 11/13/16 07:11 3 ML Allopurinol (Zyloprim Tab) 100 mg DAILY PO 11/12/16 09:00 12/12/16 08:59 11/13/16 07:43 100 MG Atorvastatin Calcium (Lipitor Tab) 40 mg DAILY PO 11/12/16 09:00 12/12/16 08:59 11/13/16 07:43 40 MG Vitamin B Complex/ Vit C/Folic Acid (Nephrocaps) 1 cap QAM PO 11/12/16 09:00 12/12/16 08:59 11/13/16 07:45 1 CAP Calcium Acetate (Phoslo Cap) 667 mg ACHS PO 11/11/16 16:00 12/11/16 15:59 11/13/16 07:44 667 MG Cholecalciferol (Vitamin D Tab) 1,000 inter.unit DAILY PO 11/12/16 09:00 12/12/16 08:59 11/13/16 07:45 1,000 INTER.UNIT Famotidine (Pepcid Tab) 20 mg DAILY PO 11/12/16 09:00 12/12/16 08:59 11/13/16 07:45 20 MG Salmeterol Xinafoate/ Fluticasone (Advair Diskus 500/50 Inh) 1 puff BID INH 11/11/16 21:00 12/11/16 20:59 11/13/16 07:43 1 PUFF Acetaminophen/ Hydrocodone Bitart ([place] 5/325 Tab) 1 tab Q6H PRN PO 11/11/16 15:30 11/25/16 15:29 11/13/16 01:04 1 TAB Metoprolol Succinate (Toprol Xl Tab) 150 mg SuMoWeFr@0900 PO 11/12/16 09:00 12/12/16 08:59 Multivitamins/ Minerals (Multivitamin W/ Minerals Tab) 1 tab DAILY PO 11/12/16 09:00 12/12/16 08:59 11/13/16 07:45 1 TAB Pantoprazole Sodium (Protonix Tab) 40 mg DAILY PO 11/12/16 09:00 12/12/16 08:59 11/13/16 07:45 40 MG Pyridoxine HCl (Vitamin B-6 Tab) 200 mg DAILY PO 11/12/16 09:00 12/12/16 08:59 11/13/16 07:44 200 MG Silver Sulfadiazine (Silvadene 1% Crm 50GM Jar) 1 appln DAILY EXT 11/12/16 09:00 12/12/16 08:59 11/12/16 08:56 1 APPLN Tiotropium [place] (Spiriva Handihaler Inhaler) 1 puff DAILY INH 11/12/16 09:00 12/12/16 08:59 11/13/16 07:43 1 PUFF Ascorbic Acid (Vitamin C Tab) 1,000 mg DAILY PO 11/12/16 09:00 12/12/16 08:59 11/13/16 07:44 1,000 MG [id number] Acetate (Vitamin E Cap) 800 interunit DAILY PO 11/12/16 09:00 12/12/16 08:59 11/13/16 07:45 800 INTERUNIT Miscellaneous Information (Consult Glycemic Management Pharmacy) 1 ea UD PRN N/A 11/11/16 16:00 12/11/16 15:59 Heparin Sodium (Porcine) (Heparin Sq 5000 Unit/0.5ml) 5,000 unit Q12 SQ 11/11/16 21:00 12/11/16 20:59 11/12/16 21:06 5,000 UNIT Hydromorphone HCl (Dilaudid Inj) 1 mg Q8H PRN IV 11/11/16 15:30 11/25/16 15:29 11/11/16 17:27 1 MG Pregabalin (Lyrica Cap) 50 mg DAILY PO 11/12/16 09:00 12/12/16 08:59 11/13/16 07:42 50 MG Piperacillin Sod/ Tazobactam Sod 4.5 gm/Dextrose 120 ml @ 30 mls/hr Q12@0400,1600 IV 11/12/16 04:00 11/22/16 03:59 11/13/16 04:17 30 MLS/HR Piperacillin Sod/ Tazobactam Sod (Consult) 1 ea UD N/A 11/11/16 16:30 12/11/16 16:29 Miconazole Nitrate (Desenex Powder) 1 appln PRN PRN EXT 11/11/16 17:15 12/11/16 17:14 11/11/16 19:23 1 APPLN Doxycycline Hyclate (Vibramycin Cap) 100 mg BID PO 11/11/16 21:00 12/12/16 20:59 11/13/16 07:45 100 MG Insulin Aspart (novoLOG ASPART) SLIDING SCALE ACHS SC 11/12/16 11:00 12/12/16 10:59 11/13/16 07:49 22 UNITS Prednisone (PredniSONE TAB) 50 mg DAILY PO 11/13/16 09:00 11/16/16 09:01 11/13/16 07:45 50 MG Glucose (Glucose 40% Gel) 15-30 GRAMS 15 GRAMS... UD PRN PO 11/12/16 14:15 12/12/16 14:14 Glucose (Glucose Chew Tab) 4-8 Tablets 4 Tabl... UD PRN PO 11/12/16 14:15 12/12/16 14:14 Dextrose (Dextrose 50% 50ML Syringe) 25-50ML OF 50% DW IV FOR... UD PRN IV 11/12/16 14:15 12/12/16 14:14 Glucagon (Glucagon Inj) 1 mg UD PRN SQ 11/12/16 14:15 12/12/16 14:14 Insulin Aspart (novoLOG ASPART) SLIDING SCALE 0000,0400 SC 11/13/16 00:00 12/13/16 00:00 11/13/16 04:11 13 UNITS Insulin Glargine (Lantus Vial) 80 units BID SC 11/13/16 09:00 12/13/16 08:59 11/13/16 07:50 80 UNITS Vancomycin HCl 500 mg/Sodium Chloride 260 ml @ 125 mls/hr TODAY@1400 IV 11/13/16 14:00 11/13/16 16:05 I & O: 24-Hour Column 11/14/16 08:00 Intake Total 575 ml Output Total 989 ml Balance -414 ml Vital Signs: Date Time Temp Pulse Resp B/P (MAP) Pulse Ox O2 Delivery O2 Flow Rate FiO2 11/13/16 13:13 36.7 95 154/71 (98) 11/13/16 13:00 94 152/68 11/13/16 12:45 90 142/42 11/13/16 12:30 96 141/68 11/13/16 12:15 93 164/70 11/13/16 12:00 94 138/45 11/13/16 11:45 92 151/71 11/13/16 11:30 87 163/69 11/13/16 11:15 85 141/70 11/13/16 11:00 90 153/70 11/13/16 10:45 88 157/69 11/13/16 10:30 86 162/76 11/13/16 10:15 87 161/72 11/13/16 10:00 87 121/51 11/13/16 09:45 94 146/62 11/13/16 09:30 90 164/71 11/13/16 09:15 86 164/67 11/13/16 09:13 88 153/70 11/13/16 08:59 36.4 98 142/57 (85) 11/13/16 08:01 37.0 84 18 129/74 (92) 97 11/13/16 08:00 Nasal Cannula 3.0 11/13/16 07:11 94 20 91 Nasal Cannula 3.0 11/13/16 04:20 36.6 92 22 95/54 (68) 98 BiPAP 11/13/16 04:00 Nasal Cannula 4.0 11/13/16 00:01 Nasal Cannula 4.0 11/12/16 23:59 36.7 98 22 98/58 (71) 96 BiPAP 11/12/16 22:57 36.5 107 20 104/62 (76) 93 Nasal Cannula 4.0 11/12/16 20:00 36.7 99 16 81/63 (69) 92 Nasal Cannula 3.0 11/12/16 20:00 92 Nasal Cannula 3.0 11/12/16 19:57 92 20 89 Nasal Cannula 3.0 11/12/16 17:00 36.9 106 24 94/50 (65) 91 Nasal Cannula 2.0 11/12/16 16:00 92 Nasal Cannula 2.0 11/12/16 16:00 36.9 99 16 85/46 (59) 92 Nasal Cannula 2.0 11/12/16 15:50 96 20 93 Nasal Cannula 2.0 Laboratory Results: Last 24 Hours Test 11/12/16 16:32 11/12/16 21:00 11/13/16 00:06 11/13/16 04:07 Bedside Glucose 206 mg/dl 355 mg/dl 324 mg/dl 204 mg/dl Test 11/13/16 07:40 11/13/16 07:46 Bedside Glucose 168 mg/dl White Blood Count 10.36 K/uL Red Blood Count 3.24 M/uL Hemoglobin 10.3 g/dL Hematocrit 33.8 % Mean Corpuscular Volume 104.3 fL Mean Corpuscular Hemoglobin 31.8 pg Mean Corpuscular Hemoglobin Concent 30.5 g/dl Platelet Count 171 K/uL Mean Platelet Volume 10.2 fL Neutrophils (%) (Auto) 78.3 % Lymphocytes (%) (Auto) 7.3 % Monocytes (%) (Auto) 12.2 % Eosinophils (%) (Auto) 0.5 % Basophils (%) (Auto) 0.2 % Neutrophils # (Auto) 8.11 K/uL Lymphocytes # (Auto) 0.76 K/uL Monocytes # (Auto) 1.26 K/uL Eosinophils # (Auto) 0.05 K/uL Basophils # (Auto) 0.02 K/uL RDW Standard Deviation 82.4 fL RDW Coefficient of Variation 22.1 % Immature Granulocyte % (Auto) 1.5 % Immature Granulocyte # (Auto) 0.16 K/uL Nucleated RBC Absolute Count (auto) 0.73 K/uL Nucleated Red Blood Cells % 7.0 % Anisocytosis PRESENT Sodium Level 132 mmol/L Potassium Level 4.6 mmol/L Chloride Level 100 mmol/L Carbon Dioxide Level 25 mmol/L Anion Gap 7.0 mmol/L Blood Urea Nitrogen 56 mg/dl Creatinine 7.90 mg/dl Est Creatinine Clear Calc Drug Dose 10.3 ml/min Estimated GFR () 5.7 Estimated GFR (Non- 5.0 BUN/Creatinine Ratio 7.1 Random Glucose 154 mg/dl Calcium Level 8.4 mg/dl Random Vancomycin Level 24.1 mcg/ml
--- NOTE | 2016-11-13 18:44 | Progress Note ---
Subjective Date of Service: Nov 13, 2016. Subjective Pt evaluation today including: conversation w/ patient, physical exam, chart review, lab review, review of studies Oatient reports feeling better. No sob. patient states she had hemodialysis today. Denies n/v DIARRHEA, FEVER, CHILLS. Problem List Medical Problems: (1) Acute respiratory failure with hypoxia and hypercarbia Status: Acute (2) Altered mental status Status: Acute (3) Anasarca Status: Acute (4) Anasarca Status: Acute (5) Bilateral cellulitis of lower leg Status: Acute (6) Bilateral lower leg cellulitis Status: Acute (7) Change in mental status Status: Acute (8) Chronic renal failure Status: Acute (9) CO2 retention Status: Acute (10) Contusion of multiple sites Status: Acute (11) Dehydration Status: Acute (12) Dyspnea on exertion Status: Acute (13) Fall Status: Acute (14) Fall Status: Acute (15) Fever Status: Acute (16) Fever Status: Acute (17) Generalized weakness Status: Acute (18) Hypercarbia Status: Acute (19) Hyperkalemia Status: Acute (20) Hypokalemia Status: Acute (21) Hypoventilation Status: Acute (22) Hypoxemia Status: Acute (23) Hypoxia Status: Acute (24) Lumbar strain Status: Acute (25) Metabolic acidosis Status: Acute (26) Nail avulsion of toe Status: Acute (27) Obesity Status: Acute (28) Respiratory acidosis Status: Acute (29) Respiratory failure Status: Acute (30) Weakness Status: Acute (31) Weight gain Status: Acute (32) Wrist pain Status: Acute Review of Systems Constitutional: No fever, No chills Eyes: No worsening of vision, No eye pain ENT: No hearing loss, No unusual epistaxis Respiratory: No cough, No sputum Cardiac: No chest pain, No orthopnea Neurologic: No memory loss, No paralysis All Other Systems: Reviewed and Negative Medications Medications (Trade) Dose Ordered Sig/Duyen Route Start Time Stop Time Status Last Admin Dose Admin Epoetin [place] (Procrit Inj) 10,000 units TODAY@0800 IV. 11/13/16 08:00 11/13/16 13:59 DC 11/13/16 11:05 10,000 UNITS Paricalcitol (Zemplar Inj) 3 mcg TODAY@0800 IV. 11/13/16 08:00 11/13/16 13:59 DC 11/13/16 11:06 3 MCG Prednisone (PredniSONE TAB) 50 mg DAILY PO 11/13/16 09:00 11/16/16 09:01 11/13/16 07:45 50 MG Insulin Aspart (novoLOG ASPART) SLIDING SCALE 0000,0400 SC 11/13/16 00:00 12/13/16 00:00 11/13/16 04:11 13 UNITS Insulin Glargine (Lantus Vial) 80 units BID SC 11/13/16 09:00 12/13/16 08:59 11/13/16 20:49 80 UNITS Vancomycin HCl 500 mg/Sodium Chloride 260 ml @ 125 mls/hr TODAY@1400 IV 11/13/16 14:00 11/13/16 16:05 DC 11/13/16 14:48 125 MLS/HR Objective Vital Signs Date Time Temp Pulse Resp B/P (MAP) Pulse Ox O2 Delivery O2 Flow Rate FiO2 11/13/16 15:08 37.0 101 22 107/64 (78) 90 Nasal Cannula 2.0 11/13/16 13:13 36.7 95 154/71 (98) 11/13/16 13:00 94 152/68 11/13/16 12:45 90 142/42 11/13/16 12:30 96 141/68 11/13/16 12:15 93 164/70 11/13/16 12:00 94 138/45 11/13/16 11:45 92 151/71 11/13/16 11:30 87 163/69 11/13/16 11:15 85 141/70 11/13/16 11:00 90 153/70 11/13/16 10:45 88 157/69 11/13/16 10:30 86 162/76 11/13/16 10:15 87 161/72 11/13/16 10:00 87 121/51 11/13/16 09:45 94 146/62 11/13/16 09:30 90 164/71 11/13/16 09:15 86 164/67 11/13/16 09:13 88 153/70 11/13/16 08:59 36.4 98 142/57 (85) 11/13/16 08:01 37.0 84 18 129/74 (92) 97 11/13/16 08:00 Nasal Cannula 3.0 11/13/16 07:11 94 20 91 Nasal Cannula 3.0 11/13/16 04:20 36.6 92 22 95/54 (68) 98 BiPAP 11/13/16 04:00 Nasal Cannula 4.0 11/13/16 00:01 Nasal Cannula 4.0 11/12/16 23:59 36.7 98 22 98/58 (71) 96 BiPAP 11/12/16 22:57 36.5 107 20 104/62 (76) 93 Nasal Cannula 4.0 11/12/16 20:00 36.7 99 16 81/63 (69) 92 Nasal Cannula 3.0 11/12/16 20:00 92 Nasal Cannula 3.0 11/12/16 19:57 92 20 89 Nasal Cannula 3.0 Physical Exam Comments: General Appearance: WD/WN, no apparent distress Neck: supple, no adenopathy (obese, large neck circumference) Respiratory/Chest: chest non-tender, normal breath sounds, no respiratory distress, no accessory muscle use Cardiovascular: regular rate, rhythm, no edema, no gallop Extremities: + calf tenderness (erythema noted on bilateral legs from knees to foot. TTP) Skin: normal color (dry skin noted on sole of feet) Lymphatic: no adenopathy Laboratory Results Last 24 Hours Test 11/12/16 21:00 11/13/16 00:06 11/13/16 04:07 11/13/16 07:40 Bedside Glucose 355 mg/dl 324 mg/dl 204 mg/dl 168 mg/dl Test 11/13/16 07:46 White Blood Count 10.36 K/uL Red Blood Count 3.24 M/uL Hemoglobin 10.3 g/dL Hematocrit 33.8 % Mean Corpuscular Volume 104.3 fL Mean Corpuscular Hemoglobin 31.8 pg Mean Corpuscular Hemoglobin Concent 30.5 g/dl Platelet Count 171 K/uL Mean Platelet Volume 10.2 fL Neutrophils (%) (Auto) 78.3 % Lymphocytes (%) (Auto) 7.3 % Monocytes (%) (Auto) 12.2 % Eosinophils (%) (Auto) 0.5 % Basophils (%) (Auto) 0.2 % Neutrophils # (Auto) 8.11 K/uL Lymphocytes # (Auto) 0.76 K/uL Monocytes # (Auto) 1.26 K/uL Eosinophils # (Auto) 0.05 K/uL Basophils # (Auto) 0.02 K/uL RDW Standard Deviation 82.4 fL RDW Coefficient of Variation 22.1 % Immature Granulocyte % (Auto) 1.5 % Immature Granulocyte # (Auto) 0.16 K/uL Nucleated RBC Absolute Count (auto) 0.73 K/uL Nucleated Red Blood Cells % 7.0 % Anisocytosis PRESENT Sodium Level 132 mmol/L Potassium Level 4.6 mmol/L Chloride Level 100 mmol/L Carbon Dioxide Level 25 mmol/L Anion Gap 7.0 mmol/L Blood Urea Nitrogen 56 mg/dl Creatinine 7.90 mg/dl Est Creatinine Clear Calc Drug Dose 10.3 ml/min Estimated GFR () 5.7 Estimated GFR (Non- 5.0 BUN/Creatinine Ratio 7.1 Random Glucose 154 mg/dl Calcium Level 8.4 mg/dl Random Vancomycin Level 24.1 mcg/ml Assessment and Plan (1) Positive blood culture Assessment & Plan: continue abx, follow final. repeat pending. (2) Cellulitis of leg Assessment & Plan: B/L cellutlits. continue antibiotics. ID is managing. ) Acute and chronic hypercarbic respiratory failure treated with O2 via BiPAP, IVP Bicarb, and Emergent HD Downgraded from the ICU yesterday after she had worsening confusion at home. She was found to have a creatinine of 10 and an acidosis. . She did receive dialysis today with improvement in her creatinine. Patient's mental status improved, Is on BIPAP at night. Patient currently has a diagnosis of COPD but unsure if this is the case given no PFT are in the chart, will obtain one as an outpatient. Continue management by pulmonary This is also likely complicated by her large BMI over 50 and large neck circumference. ESRD on dialysis Manage by nephrology COPD excaerbation likely with celluilitis Patient is on vanco and zosyn day 1. Will consult ID. Pulmonary does not believe that the x-ray finding is likley atelectasis and not pneumonia. Chronic Diastolic CHF as noted on 2-d echo. Diabetes type 2 section HBA1C was 5.9. It appears controlled. will continue Insulin sliding scale. dvt proph:Heparin subq GI prophylaxis: continue home PPI Continued [facility] stay due to: ambulation difficulties, other (Reqies iv antibiotics, recovering from copd exacerbation) Discharge planning: uncertain
[2016-11-14] VITALS (10 sets, daily range): BP systolic 124–143; BP diastolic 64–81; PULSE 76–98; TEMP 36.4–36.9; O2SAT 91–98
[2016-11-14] MEDS: PIPERACILL/TAZOBAC IV 4.5 GM in DEXTROSE 5% 100ML IV SCH ×2 (04:28→16:03)
[2016-11-14] MEDS: INSULIN ASPART 100 UNITS/ML 3 ML PEN SC SCH ×6 (04:29→20:51)
[2016-11-14] MEDS: CALCIUM ACETATE 667MG GELCAP PO SCH ×4 (06:46→20:45)
[2016-11-14] MEDS: ALBUT/IPRATROP 3MG/0.5MG NEB 3 ML VIAL INH SCH ×4 (07:30→19:06)
[2016-11-14] MEDS: CHOLECALCIFEROL 1000 INTER.UNIT TAB PO SCH (08:23)
[2016-11-14] MEDS: DOXYCYCLINE HYCLATE 100 MG CAP PO SCH ×2 (08:23→20:45)
[2016-11-14] MEDS: TOCOPHERYL, DL-ALPHA 400 INTER.UNIT CAP PO SCH (08:23)
[2016-11-14] MEDS: FAMOTIDINE 20 MG TAB PO SCH (08:23)
[2016-11-14] MEDS: PREGABALIN 50 MG CAP PO SCH (08:23)
[2016-11-14] MEDS: ATORVASTATIN 40 MG TAB PO SCH (08:23)
[2016-11-14] MEDS: PYRIDOXINE HCL 50 MG TAB PO SCH (08:23)
[2016-11-14] MEDS: ASCORBIC ACID 500 MG TAB PO SCH (08:23)
[2016-11-14] MEDS: ALLOPURINOL 100 MG TAB PO SCH (08:23)
[2016-11-14] MEDS: FLUTICASONE/SALMETEROL (ADVAIR) 500/50 INH 14 PUFF INH SCH ×2 (08:24→20:45)
[2016-11-14] MEDS: TIOTROPIUM BROMIDE 5 PUFF/90 MCG INH INH SCH (08:24)
[2016-11-14] MEDS: METOPROLOL SUCC 50MG EXT REL TAB PO SCH (08:24)
[2016-11-14] MEDS: PANTOprazole SOD 40 MG TAB PO SCH (08:24)
[2016-11-14] MEDS: CEROVITE ADV FORMULA TAB PO SCH (08:24)
[2016-11-14] MEDS: NEPHROCAPS PO SCH (08:24)
[2016-11-14] MEDS: INSULIN GLARGINE SC SCH ×2 (08:29→20:51)
[2016-11-14] MEDS: HEPARIN SOD 5000 UNIT/0.5 ML CARP SQ SCH ×2 (08:29→20:51)
[2016-11-14] MEDS: SILVER SULFADIAZINE 1% CR 50 GM JAR EXT SCH (08:30)
[2016-11-14 08:53] LABS: HEMATOCRIT 33.1 % (37-47); MEAN CELL VOLUME 104.7 fL (80-100); MEAN CORPUSCULAR HEMOGLOBIN 31.6 pg (25-34); MEAN CORPUSCULAR HGB CONC 30.2 g/dl (32-36); MEAN PLATELET VOLUME 10.6 fL (7.4-10.4); PLATELET COUNT 177 K/uL (130-400); RED BLOOD COUNT 3.16 M/uL (4.2-5.4); WHITE BLOOD COUNT 11.16 K/uL (4.8-10.8)
[2016-11-14 09:16] LABS: BUN/CREATININE RATIO 6.4 (10-20); CALCIUM 8.5 mg/dl (8.5-10.1); CREATININE 6.3 mg/dl (0.60-1.20); POTASSIUM 4.4 mmol/L (3.5-5.1)
--- NOTE | 2016-11-14 09:27 | Pharmacy Progress Note ---
Glycemic Control Progress Note Date of Service Nov 14, 2016. Scope Glycemic Pharmacist consulted for glycemic control to write orders per [facility] inpatient glycemic control protocol. Objective Accuchecks BSG (last 24hrs): Test 11/13/16 16:21 11/13/16 20:05 11/14/16 00:03 11/14/16 04:06 Bedside Glucose 244 mg/dl (70-90) 239 mg/dl (70-90) 168 mg/dl (70-90) 180 mg/dl (70-90) Test 11/14/16 07:41 11/14/16 08:21 Bedside Glucose 171 mg/dl (70-90) HbA1c: Test 11/12/16 05:49 Hemoglobin A1c 5.9 % (4.5-5.6) H Recent Pertinent Medications The patient is currently receiving: * Basal insulin: Lantus 80 units every 12 hours * Correctional Insulin: Novolog Correction per scale ACHS Goal Range: Low 110 mg/dL - High 140 mg/dL Correction Factor: 5 mg/dL/unit * Prandial insulin: Per carb ratio of 1 unit per 2 grams CHO consumed Outpatient Anti-Diabetic Meds Basal Insulin AND Bolus Insulin Assessment & Plan ASSESSMENT: * See progress note from 11/11 for more background info, in short: * Pt receiving SQ basal bolus insulin regimen for hyperglycemia secondary to baseline DM (outpatient regimen on hold),stress/infection, and steroids * Patient is currently receiving an average of 281 units of insulin per day * 160 units of basal insulin * 121 units of prandial/correctional insulin * BSGs ranging 168 - 244 mg/dl over the past 24hrs * Changes needed to insulin regimen: * AM Fasting BSG = 180 mg/dl. This is in slightly above goal range for patient based on inpatient targets and co-morbidities. Pt is also requiring correctional Novolog insulin at 0000 and 0400 BSG checks, Therefore Basal insulin needs to be increased * Post-prandial BSGs are slightly elevated/BSGs rise throughout the day but we will continue CF and CR as they are already tight, and making changes in Lantus today * Additional notes / comments: Pt on HD which causes some of the lability in patient's BSGs PLAN FOR INPATIENT GLYCEMIC CONTROL: * INCREASE Basal insulin * Lantus 85 units SQ BID * Bolus insulin * NovoLog per scale ACHS or Q6hrs while NPO and continue BSGs at 0000 and 0400 overnight * Goal Range: Low 110 mg/dL - High 140 mg/dL * Correction Factor: 5 mg/dL/unit * Nutritional / Prandial insulin per carb ratio of 1 unit per 2 grams CHO consumed RECOMMENDATIONS FOR DISCHARGE: * Continue home regimen * Please note that the plan above was derived based on current level of insulin resistance and hospital stress. These recommendations are appropriate for inpatient admission only. Plan of care upon discharge will need to be reassessed to avoid potential outpatient hypo/hyperglycemia. Thank you.
--- NOTE | 2016-11-14 09:39 | Pharmacy Progress Note ---
Pharmacy Abx Dose Short Note Date of Service Nov 14, 2016. Assessment & Plan This AM's Post-HD lvl was 22.5mcg/mL. Given her habitus, HD schedule (TTS), and post HD random lvl, she will not require a supplemental dose of Vanco today. I have ordered a random Pre-HD lvl to be drawn 11/15/16 to help guide Vanco dosing. Vanco goal lvls: 15-20mcg/mL until repeat BC are back (? if NGTD may consider d/ c'ing Vanco). MRSA nasal swab is negative. Pharmacy will continue to follow and will adjust dose/frequency as necessary. Thank you.
--- NOTE | 2016-11-14 10:02 | Medical Consult ---
Consultation Note Date of Service Nov 14, 2016. Consultation Note ESRD on HD, assess AVF for depth History of Present Illness The patient is a 60 year old female with multiple medical problems, including ESRD on HD, known to Dr Gilman for LUE brachiocephalic AVF creation in 07/2016. Pt has been continuing HD through located within [facility] and HD unit has concerns regarding her AVF being too deep as it has been difficult to palpate. Pt denies YOUSSEF, fever , chills, chest pain, SOB presently, ABD pain, N/V, rest pain, claudication, other complaints. Allergies Coded Allergies: Daptomycin (Verified Allergy, Mild, HIVES, 07/24/16) itching Iodine (Verified Allergy, Unknown, 07/24/16) Shellfish (Verified Allergy, Unknown, 07/24/16) Sulfamethoxazole w/Trimethoprim (Verified Allergy, Unknown, RASH, 07/24/16) Codeine (Verified Adverse Reaction, Unknown, NAUSEA, 08/14/16) has tolerated morphine Home Medications Scheduled Allopurinol (Zyloprim), 100 MG PO DAILY Ascorbic Acid (Vitamin C 500 mg), 1,000 MG PO DAILY Atorvastatin (Lipitor), 40 MG PO DAILY Cholecalciferol (Vitamin D3), 1,000 INTER.UNIT PO DAILY Doxycycline Hyclate (Doxycycline Hyclate), 100 MG PO DAILY Fluticasone Prop/Salmeterol (Advair Diskus 500/50 60 Dose), 1 PUFF INH BID Home O2 Therapy (Oxygen), 3 LITERS NA CONTINOUS Insulin Aspart (Novolog Flexpen), 50 UNITS SQ W/BREAKFAST Insulin Aspart (Novolog Flexpen), 50 UNITS SQ W/LUNCH Insulin Aspart (Novolog Flexpen), 90 UNITS SQ W/SUPPER Insulin Glargine (Toujeo Solostar), 70 UNITS SC TID Lactic Acid (Ammonium Lactate) (Amlactin), 1 APPLN TOP BID Lorcaserin Hcl (Belviq), 10 MG PO BID Metoprolol Succ (Toprol Xl) (Toprol-Xl ), 150 MG PO DAILY Multiple Vitamins W/ Minerals (One Daily For Women), 1 TAB PO DAILY Pantoprazole (Protonix), 40 MG PO DAILY Prednisone Tab (Prednisone), 15 MG PO DAILY Pregabalin (Lyrica), 150 MG PO BID Pyridoxine (Vitamin B6), 200 MG PO DAILY Tiotropium [place] (Spiriva Handihaler), 1 CAP INH DAILY Verapamil Hcl (Verapamil Hcl Er), 240 MG PO HS Vitamin E (Vitamin E), 800 INTER.UNIT PO DAILY Scheduled PRN Insulin Aspart (Novolog Flexpen), 40 UNITS SQ HS PRN for Late Night Snack Ipratropium-Albuterol (Duoneb), 1 TREATMENT INH Q6H PRN for SOB/Wheezing Miconazole Nitrate (Desenex Shake Powder), 1 APPLN TOP UD PRN for Affected Skin Folds Problem List Medical Problems: (1) Abdominal wall cellulitis (2) Abdominal wall cellulitis (3) Abrasion of toe of right foot (4) Acute kidney injury (5) Acute on chronic diastolic (congestive) heart failure (6) Acute respiratory failure with hypoxia and hypercapnia (7) Anemia (8) Arthritis (9) Asymptomatic bacteriuria (10) Cellulitis of abdominal wall (11) Cellulitis of leg (12) Cervical Disc Degen (13) CHF (congestive heart failure) (14) Chronic kidney disease (CKD) stage G3b/A1, moderately decreased glomerular filtration rate (GFR) between 30-44 mL/min/1.73 square meter and albuminuria creatinine ratio less than 30 mg/g (15) CO2 narcosis (16) COPD (chronic obstructive pulmonary disease) (17) Cor pulmonale, chronic (18) Cystitis (19) Diab Mariama Wo Compl, Type Ii Or Unspec Type, Uncontrolled (20) Diabetes (21) Edema (22) ESRD on hemodialysis (23) Frequent falls (24) Hypercalcemia (25) Hypercalcemia (26) Hypercapnic respiratory failure (27) Hyperkalemia (28) Hyperphosphatemia (29) Hypokalemia (30) Hyponatremia (31) Metabolic alkalosis (32) Metabolic alkalosis with respiratory acidosis (33) Metabolic encephalopathy (34) Morbid obesity with BMI of 50.0-59.9, adult (35) Obesity hypoventilation syndrome (36) Obesity hypoventilation syndrome (37) Ovarian Cyst Nec/Nos (38) Pulmonary Collapse (39) Pulmonary nodules (40) Renal failure (ARF), acute on chronic (41) Sciatica (42) Venous stasis dermatitis of both lower extremities (43) Weakness Surgical / Medical History Hx Cardiac Surgery: No Hx Abdominal Surgery: Yes (hysterectomy) Hx Cancer Surgery: No Hx Thoracic Surgery: No Hx Orthopedic: No Hx Urinary Tract Surgery: No Past Medical/Surgical History: CHF, Diabetes, Heart Disease, High Cholesterol, Hypertension, Kidney Disease Family History Cancer Diabetes mellitus Gallbladder disease Heart disease Lung disease Social History Smoking Status: Never Smoker Hx Tobacco Use In Past Year?: No Hx Alcohol Use - Type & Amnt: No Hx Substance Use -Type & Amnt: No ROS: Vascular Con v2 Review of Systems Constitutional: + malaise, No chills, No fever Skin: No change in color Eyes: No visual changes ENMT: No sore throat Respiratory: No cough, No hemoptysis Cardiovascular: No chest pain, No palpitations, No syncope Gastrointestinal: No abdominal pain, No nausea, No vomiting Genitourinary - Female: No dysuria, No hematuria Neurologic: No dizziness, No lethargy, No numbness, No tingling Exam: Vascular Con v2 Physical Exam Constitutional: General Apperance: well-nourished, well-developed, obese Level of Distress: chronically ill Psychiatric: Mental Status: active & alert, normal mood, normal affect Orientation: to time, to place, to person Memory: recent memory normal, remote memory normal Head: normocephalic, atraumatic Eyes: EOM: EOMI ENMT: normal ENT inspection, hearing grossly normal Neck: supple, trachea midline Lungs: Respiratory effort: no dyspnea Auscultation: no rhonchi, Cardiovascular: Apical Impulse: not displaced Heart Auscultation: RRR, no rubs, no gallops Peripheral Pulses: Pulses: full and equal, in all extremities except if noted Bruits: none appreciated Carotid Pulse: normal on the left, normal on the right Brachial Pulses: normal on the left, normal on the right Radial Pulse: normal on the left, normal on the right Femoral Pulse: normal on the left, normal on the right Posterior Tibialis Pulse: decreased on the left, decreased on the right Dorsalis Pedis Pulse: decreased on the left, decreased on the right Abdomen: Bowel Sounds: normal Inspection & Palpation: soft, non-distended, no tenderness, guarding & rebound Musculoskeletal: normal strength (5/5 throughout), normal tone Extremities: Upper Right: no cyanosis, no edema, no varicosities Upper Left: no cyanosis, no edema, LUE AVF with + thrill/bruit, but difficult to feel distally Lower Right: no cyanosis, no varicosities, edema Lower Left: no cyanosis, no varicosities, edema Neurologic: Cranial Nerves: grossly intact Sensation: grossly intact A&P: Vascular Con v2 Assessment and Plan ASSESSMENT and PLAN: ESRD on HD Pt discussed with Dr Gilman, considering for LUE AVF transposition next week, however, will obtain US prior to eval for maturation d/t difficult to palpate. Tentatively planning for THURSDAY, 11/18.
--- NOTE | 2016-11-14 10:12 | Progress Note ---
Subjective Date of Service: Nov 14, 2016. Subjective Pt evaluation today including: conversation w/ patient, physical exam, chart review, lab review oob to chair, doing well. tolerating abx. afebrile. Initial blood cultures 1/2 with gate shear operator, repeat pending. likely contaminant. No weeping from legs. states pain is resolved. denies f/c. no abd pain, no n/v/d. All remaining ros reviewed and are negative. Problem List Medical Problems: (1) Acute respiratory failure with hypoxia and hypercarbia Status: Acute (2) Altered mental status Status: Acute (3) Anasarca Status: Acute (4) Anasarca Status: Acute (5) Bilateral cellulitis of lower leg Status: Acute (6) Bilateral lower leg cellulitis Status: Acute (7) Cellulitis of leg Status: Acute (8) Change in mental status Status: Acute (9) Chronic renal failure Status: Acute (10) CO2 retention Status: Acute (11) Contusion of multiple sites Status: Acute (12) Dehydration Status: Acute (13) Dyspnea on exertion Status: Acute (14) Fall Status: Acute (15) Fall Status: Acute (16) Fever Status: Acute (17) Fever Status: Acute (18) Generalized weakness Status: Acute (19) Hypercarbia Status: Acute (20) Hyperkalemia Status: Acute (21) Hypokalemia Status: Acute (22) Hypoventilation Status: Acute (23) Hypoxemia Status: Acute (24) Hypoxia Status: Acute (25) Lumbar strain Status: Acute (26) Metabolic acidosis Status: Acute (27) Nail avulsion of toe Status: Acute (28) Obesity Status: Acute (29) Positive blood culture Status: Acute (30) Respiratory acidosis Status: Acute (31) Respiratory failure Status: Acute (32) Weakness Status: Acute (33) Weight gain Status: Acute (34) Wrist pain Status: Acute Objective Vital Signs Date Time Temp Pulse Resp B/P (MAP) Pulse Ox O2 Delivery O2 Flow Rate FiO2 11/14/16 08:03 36.9 86 18 138/64 (88) 95 11/14/16 08:00 Nasal Cannula 3.0 11/14/16 07:31 94 18 93 Nasal Cannula 3.0 11/14/16 04:10 36.4 92 18 126/81 (96) 98 BiPAP 35 11/14/16 04:00 BiPAP 11/13/16 23:59 94 Nasal Cannula 2.0 11/13/16 23:15 36.7 100 21 104/51 (68) 94 Nasal Cannula 3.0 11/13/16 20:00 90 18 95 Nasal Cannula 3.0 11/13/16 20:00 37.0 102 20 124/66 (85) 92 Nasal Cannula 3.0 11/13/16 20:00 94 Nasal Cannula 2.0 11/13/16 16:00 92 Nasal Cannula 2.0 11/13/16 15:08 37.0 101 22 107/64 (78) 90 Nasal Cannula 2.0 11/13/16 13:13 36.7 95 154/71 (98) 11/13/16 13:00 94 152/68 11/13/16 12:45 90 142/42 11/13/16 12:30 96 141/68 11/13/16 12:15 93 164/70 11/13/16 12:00 94 138/45 11/13/16 11:45 92 151/71 11/13/16 11:30 87 163/69 11/13/16 11:15 85 141/70 11/13/16 11:00 90 153/70 11/13/16 10:45 88 157/69 11/13/16 10:30 86 162/76 11/13/16 10:15 87 161/72 Physical Exam General Appearance: WD/WN, no apparent distress Eyes: normal inspection, EOMI Neck: supple Respiratory/Chest: lungs clear, normal breath sounds, no respiratory distress Cardiovascular: regular rate, rhythm, no edema Abdomen: non tender, soft Extremities: non-tender, normal inspection, + swelling, + pertinent finding ( chronic stasis changed, chronic erythema, no warmth, no tenderness, no drainage) 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: alert, oriented x 3 Skin: normal color, warm/dry, no rash Laboratory Results Item Value Date Time Blood Culture - Preliminary Resulted 11/11/16 1609 Blood Coag Neg Staph Not Lugdunensis Last 24 Hours Test 11/13/16 16:21 11/13/16 20:05 11/14/16 00:03 11/14/16 04:06 Bedside Glucose 244 mg/dl 239 mg/dl 168 mg/dl 180 mg/dl Test 11/14/16 07:41 11/14/16 08:21 Bedside Glucose 171 mg/dl White Blood Count 11.16 K/uL Red Blood Count 3.16 M/uL Hemoglobin 10.0 g/dL Hematocrit 33.1 % Mean Corpuscular Volume 104.7 fL Mean Corpuscular Hemoglobin 31.6 pg Mean Corpuscular Hemoglobin Concent 30.2 g/dl RDW Standard Deviation 83.6 fL RDW Coefficient of Variation 22.0 % Platelet Count 177 K/uL Mean Platelet Volume 10.6 fL Nucleated RBC Absolute Count (auto) 0.75 K/uL Nucleated Red Blood Cells % 6.7 % Sodium Level 133 mmol/L Potassium Level 4.4 mmol/L Chloride Level 103 mmol/L Carbon Dioxide Level 21 mmol/L Anion Gap 9.0 mmol/L Blood Urea Nitrogen 40 mg/dl Creatinine 6.30 mg/dl Est Creatinine Clear Calc Drug Dose 12.9 ml/min Estimated GFR () 7.6 Estimated GFR (Non- 6.5 BUN/Creatinine Ratio 6.4 Random Glucose 179 mg/dl Calcium Level 8.5 mg/dl Random Vancomycin Level 22.5 mcg/ml Assessment and Plan (1) Positive blood culture Assessment & Plan: likely contaminant, repeats pending. (2) Cellulitis of leg Assessment & Plan: will stop zosyn. continue vanco, 7 days, then transition back to suppressive po doxy. no new ID recs. elevated legs. Continued [facility] stay due to: ambulation difficulties, other (Reqies iv antibiotics, recovering from copd exacerbation) Discharge planning: uncertain
--- NOTE | 2016-11-14 10:18 | Nephrology Progress Note ---
Nephrology Progress Note Date of Service Nov 14, 2016. Chief Complaint ESRD requiring HD Subjective Mrs. Gaytan was seen & examined in her hospital room this morning. She reports using her NIPPV all night. She reports that her lower extremity cellulitis is improved. Review of Systems Constitutional: No fever Cardiovascular: No chest pain Respiratory: No dyspnea at rest Abdomen: No pain, No nausea, No vomiting Extremities: + leg edema A complete review of systems was performed. Pertinent positives are noted above. All other systems are negative. Vital Signs Last 8 Hrs Date Time Temp Pulse Resp B/P (MAP) Pulse Ox O2 Delivery O2 Flow Rate FiO2 11/14/16 08:03 36.9 86 18 138/64 (88) 95 11/14/16 08:00 Nasal Cannula 3.0 11/14/16 07:31 94 18 93 Nasal Cannula 3.0 11/14/16 04:10 36.4 92 18 126/81 (96) 98 BiPAP 35 11/14/16 04:00 BiPAP Last Recorded Weight Weight (Kilograms): 139.300 Physical Exam General Appearance: no apparent distress Head: normocephalic, atraumatic Eyes: PERRL Neck: no adenopathy, + pertinent finding (R IJ THC with clean dry dressing in place) Respiratory/Chest: lungs clear, no respiratory distress Cardiovascular: regular rate, rhythm Abdomen/GI: normal bowel sounds, non tender, soft Extremities/Musculoskelatal: + pertinent finding (1+ pretibial pitting edema. LE cellulitis is markedly improved. L upper arm AVF + bruit. Venous limb is short and dives deep) Neurologic/Psych: alert, oriented x 3 Family History Cancer Diabetes mellitus Gallbladder disease Heart disease Lung disease Negative for CKD / ESRD Social History Smoking Status: Former smoker Drug Use: none Marital Status: Housing Status: lives with family Occupation: unemployed . Lives at home. Former smoker Laboratory Results Past 24 Hours 11/14/16 08:21 11/14/16 08:21 Test 11/13/16 16:21 11/13/16 20:05 11/14/16 00:03 11/14/16 04:06 Bedside Glucose 244 mg/dl (70-90) 239 mg/dl (70-90) 168 mg/dl (70-90) 180 mg/dl (70-90) Test 11/14/16 07:41 11/14/16 08:21 Bedside Glucose 171 mg/dl (70-90) Red Blood Count 3.16 M/uL (4.2-5.4) Mean Corpuscular Volume 104.7 fL (80-100) Mean Corpuscular Hemoglobin 31.6 pg (25-34) Mean Corpuscular Hemoglobin Concent 30.2 g/dl (32-36) RDW Standard Deviation 83.6 fL (36.4-46.3) RDW Coefficient of Variation 22.0 % (11.5-14.5) Mean Platelet Volume 10.6 fL (7.4-10.4) Nucleated RBC Absolute Count (auto) 0.75 K/uL (0-0) Nucleated Red Blood Cells % 6.7 % Anion Gap 9.0 mmol/L (3-11) Est Creatinine Clear Calc Drug Dose 12.9 ml/min Estimated GFR () 7.6 Estimated GFR (Non- 6.5 BUN/Creatinine Ratio 6.4 (10-20) Calcium Level 8.5 mg/dl (8.5-10.1) Random Vancomycin Level 22.5 mcg/ml Allergies Coded Allergies: Daptomycin (Verified Allergy, Mild, HIVES, 11/11/16) itching Iodine (Verified Allergy, Unknown, 11/11/16) Shellfish (Verified Allergy, Unknown, 11/11/16) Sulfamethoxazole w/Trimethoprim (Verified Allergy, Unknown, RASH, 11/11/16) Codeine (Verified Adverse Reaction, Unknown, NAUSEA, 11/11/16) has tolerated morphine Uncoded Allergies: kristina wipes (Allergy, Severe, red rash, excoriation, 09/19/16) comfort baths (Adverse Reaction, Severe, rash, "breaks out all over", ) Medications Current Inpatient Medications Medications (Trade) Dose Ordered Sig/Duyen Route Start Time Stop Time Status Last Admin Dose Admin Vancomycin HCl (Consult) 1 ea UD N/A 11/11/16 16:25 12/11/16 16:24 Albuterol/ Ipratropium (Duoneb) 3 ml QIDR INH 11/11/16 16:00 12/11/16 15:59 11/14/16 07:30 3 ML Allopurinol (Zyloprim Tab) 100 mg DAILY PO 11/12/16 09:00 12/12/16 08:59 9/15/17 08:23 100 MG Atorvastatin Calcium (Lipitor Tab) 40 mg DAILY PO 11/12/16 09:00 12/12/16 08:59 11/14/16 08:23 40 MG Vitamin B Complex/ Vit C/Folic Acid (Nephrocaps) 1 cap QAM PO 11/12/16 09:00 12/12/16 08:59 11/14/16 08:24 1 CAP Calcium Acetate (Phoslo Cap) 667 mg ACHS PO 11/11/16 16:00 12/11/16 15:59 11/14/16 06:46 667 MG Cholecalciferol (Vitamin D Tab) 1,000 inter.unit DAILY PO 11/12/16 09:00 12/12/16 08:59 11/14/16 08:23 1,000 INTER.UNIT Famotidine (Pepcid Tab) 20 mg DAILY PO 11/12/16 09:00 12/12/16 08:59 11/14/16 08:23 20 MG Salmeterol Xinafoate/ Fluticasone (Advair Diskus 500/50 Inh) 1 puff BID INH 11/11/16 21:00 12/11/16 20:59 11/14/16 08:24 1 PUFF Acetaminophen/ Hydrocodone Bitart ([place] 5/325 Tab) 1 tab Q6H PRN PO 11/11/16 15:30 11/25/16 15:29 11/13/16 14:54 1 TAB Metoprolol Succinate (Toprol Xl Tab) 150 mg SuMoWeFr@0900 PO 11/12/16 09:00 12/12/16 08:59 11/14/16 08:24 150 MG Multivitamins/ Minerals (Multivitamin W/ Minerals Tab) 1 tab DAILY PO 11/12/16 09:00 12/12/16 08:59 11/14/16 08:24 1 TAB Pantoprazole Sodium (Protonix Tab) 40 mg DAILY PO 11/12/16 09:00 12/12/16 08:59 11/14/16 08:24 40 MG Pyridoxine HCl (Vitamin B-6 Tab) 200 mg DAILY PO 11/12/16 09:00 12/12/16 08:59 11/14/16 08:23 200 MG Silver Sulfadiazine (Silvadene 1% Crm 50GM Jar) 1 appln DAILY EXT 11/12/16 09:00 12/12/16 08:59 11/14/16 08:30 1 APPLN Tiotropium [place] (Spiriva Handihaler Inhaler) 1 puff DAILY INH 11/12/16 09:00 12/12/16 08:59 11/14/16 08:24 1 PUFF Ascorbic Acid (Vitamin C Tab) 1,000 mg DAILY PO 11/12/16 09:00 12/12/16 08:59 11/14/16 08:23 1,000 MG tc-Sytuj-Eaakouyygv Acetate (Vitamin E Cap) 800 interunit DAILY PO 11/12/16 09:00 12/12/16 08:59 11/14/16 08:23 800 INTERUNIT Miscellaneous Information (Consult Glycemic Management Pharmacy) 1 UD PRN N/A 11/11/16 16:00 12/11/16 15:59 Heparin Sodium (Porcine) (Heparin Sq 5000 Unit/0.5ml) 5,000 unit Q12 SQ 11/11/16 21:00 12/11/16 20:59 11/14/16 08:29 5,000 UNIT Hydromorphone HCl (Dilaudid Inj) 1 mg Q8H PRN IV 11/11/16 15:30 11/25/16 15:29 11/11/16 17:27 1 MG Pregabalin (Lyrica Cap) 50 mg DAILY PO 11/12/16 09:00 12/12/16 08:59 11/14/16 08:23 50 MG Piperacillin Sod/ Tazobactam Sod 4.5 gm/Dextrose 120 ml @ 30 mls/hr Q12@0400,1600 IV 11/12/16 04:00 11/22/16 03:59 11/14/16 04:28 30 MLS/HR Piperacillin Sod/ Tazobactam Sod (Consult) 1 UD N/A 11/11/16 16:30 12/11/16 16:29 Miconazole Nitrate (Desenex Powder) 1 appln PRN PRN EXT 11/11/16 17:15 12/11/16 17:14 11/11/16 19:23 1 APPLN Doxycycline Hyclate (Vibramycin Cap) 100 mg BID PO 11/11/16 21:00 12/12/16 20:59 11/14/16 08:23 100 MG Insulin Aspart (novoLOG ASPART) SLIDING SCALE ACHS SC 11/12/16 11:00 12/12/16 10:59 11/14/16 08:28 38 UNITS Prednisone (PredniSONE TAB) 50 mg DAILY PO 11/13/16 09:00 11/16/16 09:01 11/14/16 08:22 50 MG Glucose (Glucose 40% Gel) 15-30 GRAMS 15 GRAMS... UD PRN PO 11/12/16 14:15 12/12/16 14:14 Glucose (Glucose Chew Tab) 4-8 Tablets 4 Tabl... UD PRN PO 11/12/16 14:15 12/12/16 14:14 Dextrose (Dextrose 50% 50ML Syringe) 25-50ML OF 50% DW IV FOR... UD PRN IV 11/12/16 14:15 12/12/16 14:14 Glucagon (Glucagon Inj) 1 mg UD PRN SQ 11/12/16 14:15 12/12/16 14:14 Insulin Aspart (novoLOG ASPART) SLIDING SCALE 0000,0400 SC 11/13/16 00:00 12/13/16 00:00 11/14/16 04:29 8 UNITS Insulin Glargine (Lantus Vial) 85 units BID SC 11/14/16 09:00 12/14/16 08:59 11/14/16 08:29 85 UNITS Impression (1) ESRD on hemodialysis (2) Hypercapnic respiratory failure (3) Obesity hypoventilation syndrome (4) Cellulitis of leg Mrs. Gaytan has recurrent hypercapnic respiratory failure despite adherence to NIPPV at home. Her CXR is concerning for a RLL infiltrate. Patient has dry cracked skin on her feet and bilateral LE cellulitis. She has ESRD due to cardiorenal syndrome and requires TTS HD (4.5hr F-180NR Qb300 Qd A1.5 3K 2.5 Ca EDW 137.7 kg Heparin 2000 load w/ 1000 units hourly). She has not yet HD today. BUN is markedly elevated but other electrolytes including serum bicarbonate are currently acceptable. Recommendations END STAGE RENAL DISEASE: -- No acute indication for HD today. Will schedule next HD for am. -- IJ THC placed 07/25/16. L upper arm AVF created 08/19/[address] Thapa. AVF has + bruit but venous limb is too deep for use. Vascular surgery recommendations reviewed. They have ordered US for further evaluation of venous limb of AVF -- Lyrica dose reduced to 50 mg daily given after dialysis on dialysis days to adjust for ESRD HYPERTENSION: -- Blood pressure is acceptable. Will order 2 L UF w/ HD tomorrow (EDW 137 kg) ANEMIA: -- Will monitor H&H and provide SAMARA as needed to keep Hgb 10 - 11 ID: -- Patient has a RLL infiltrate and LE cellulitis -- One of two blood cultures w/ G+ cocci. -- Patient is on Vanco, Zosyn and Doxycycline. Continue antibiotics as per ID senior business consultant PULM: -- Pulmonology recommendations reviewed this am. They have recommended improved compliance w/ NIPPV
--- NOTE | 2016-11-14 14:39 | DIAGNOSTIC IMAGING REPORT ---
ADDENDUM Addendum: Additional imaging was performed to evaluate the entirety of the left cephalic vein and left subclavian vein. These vessels were patent by sonography. Electronically signed by: Eliceo Rubio M.D. 11/17/2016 2:40 PM Dictated Date/Time: 11/17/2016 2:37 PM ORIGINAL REPORT LEFT UPPER EXTREMITY AV FISTULA ULTRASOUND CLINICAL HISTORY: End-stage renal disease on hemodialysis. Assess left upper extremity AV fistula for size and depth. COMPARISON STUDY: No previous studies for comparison. TECHNIQUE: Grayscale and color and duplex Doppler sonography of the left upper extremity AV graft was performed. FINDINGS: Note was made of a patent left upper extremity AV fistula between the brachial artery and cephalic vein. No hematoma or fluid collection was identified. The depth from the skin to mid aspect of the cephalic vein was 1.7 cm. The size of the cephalic vein at this level was 0.6 cm. The depth from the skin to the distal cephalic vein (upper arm) was 1.3 cm and the size of the cephalic vein was 0.8 cm at this level. The depth at the antecubital fossa from skin to cephalic vein was 0.3 cm and the vessel measured 1.2 cm in caliber. IMPRESSION: Patent left upper extremity AV fistula. 1.7 cm from skin to mid cephalic vein, 1.3 cm from skin to distal cephalic vein and 0.3 cm at the level the antecubital fossa. Electronically signed by: Eliceo Rubio M.D. 11/14/2016 2:38 PM Dictated Date/Time: 11/14/2016 2:30 PM
--- NOTE | 2016-11-14 22:34 | Progress Note ---
Subjective Date of Service: Nov 14, 2016. Subjective Patient is a 60 year old female, reports feeling better regarding breathing. Patient states that her lower extremity erythema and pain has improved. Px denies fever, chills, Problem List Medical Problems: (1) Acute respiratory failure with hypoxia and hypercarbia Status: Acute (2) Altered mental status Status: Acute (3) Anasarca Status: Acute (4) Anasarca Status: Acute (5) Bilateral cellulitis of lower leg Status: Acute (6) Bilateral lower leg cellulitis Status: Acute (7) Cellulitis of leg Status: Acute (8) Change in mental status Status: Acute (9) Chronic renal failure Status: Acute (10) CO2 retention Status: Acute (11) Contusion of multiple sites Status: Acute (12) Dehydration Status: Acute (13) Dyspnea on exertion Status: Acute (14) Fall Status: Acute (15) Fall Status: Acute (16) Fever Status: Acute (17) Fever Status: Acute (18) Generalized weakness Status: Acute (19) Hypercarbia Status: Acute (20) Hyperkalemia Status: Acute (21) Hypokalemia Status: Acute (22) Hypoventilation Status: Acute (23) Hypoxemia Status: Acute (24) Hypoxia Status: Acute (25) Lumbar strain Status: Acute (26) Metabolic acidosis Status: Acute (27) Nail avulsion of toe Status: Acute (28) Obesity Status: Acute (29) Positive blood culture Status: Acute (30) Respiratory acidosis Status: Acute (31) Respiratory failure Status: Acute (32) Weakness Status: Acute (33) Weight gain Status: Acute (34) Wrist pain Status: Acute Review of Systems Constitutional: No fever, No chills Eyes: No worsening of vision, No eye pain Respiratory: + shortness of breath, No cough, No sputum, No wheezing Cardiac: No chest pain, No orthopnea Abdomen: No pain, No nausea Musculoskeletal: No joint pain Neurologic: No memory loss, No paralysis All Other Systems: Reviewed and Negative Medications Medications (Trade) Dose Ordered Sig/Duyen Route Start Time Stop Time Status Last Admin Dose Admin Insulin Glargine (Lantus Vial) 85 units BID SC 11/14/16 09:00 11/15/16 07:45 DC 11/14/16 20:51 85 UNITS Objective Vital Signs Date Time Temp Pulse Resp B/P (MAP) Pulse Ox O2 Delivery O2 Flow Rate FiO2 11/14/16 20:15 Nasal Cannula 2.0 11/14/16 19:11 98 18 94 Nasal Cannula 2.0 11/14/16 15:37 36.6 88 19 143/66 (91) 93 Humidified Oxygen 2.0 11/14/16 15:17 88 18 93 Nasal Cannula 2.0 11/14/16 11:47 94 18 94 Nasal Cannula 2.0 11/14/16 10:45 Nasal Cannula 2.0 11/14/16 10:25 36.4 95 22 124/65 (84) 91 Nasal Cannula 2.0 11/14/16 10:11 36.9 86 18 95 3.0 11/14/16 08:03 36.9 86 18 138/64 (88) 95 11/14/16 08:00 Nasal Cannula 3.0 11/14/16 07:31 94 18 93 Nasal Cannula 3.0 11/14/16 04:10 36.4 92 18 126/81 (96) 98 BiPAP 35 11/14/16 04:00 BiPAP 11/13/16 23:59 94 Nasal Cannula 2.0 11/13/16 23:15 36.7 100 21 104/51 (68) 94 Nasal Cannula 3.0 Physical Exam General Appearance: WD/WN, no apparent distress Neck: supple, no adenopathy, thyroid normal Respiratory/Chest: chest non-tender, lungs clear, normal breath sounds Cardiovascular: regular rate, rhythm, no edema, no gallop Abdomen: normal bowel sounds, non tender Extremities: + pertinent finding (erythema noted in b/l lower extremities from knees to ankles. no longer ttp.) Lymphatic: no adenopathy Laboratory Results Last 24 Hours Test 11/14/16 00:03 11/14/16 04:06 11/14/16 07:41 11/14/16 08:21 Bedside Glucose 168 mg/dl 180 mg/dl 171 mg/dl White Blood Count 11.16 K/uL Red Blood Count 3.16 M/uL Hemoglobin 10.0 g/dL Hematocrit 33.1 % Mean Corpuscular Volume 104.7 fL Mean Corpuscular Hemoglobin 31.6 pg Mean Corpuscular Hemoglobin Concent 30.2 g/dl RDW Standard Deviation 83.6 fL RDW Coefficient of Variation 22.0 % Platelet Count 177 K/uL Mean Platelet Volume 10.6 fL Nucleated RBC Absolute Count (auto) 0.75 K/uL Nucleated Red Blood Cells % 6.7 % Sodium Level 133 mmol/L Potassium Level 4.4 mmol/L Chloride Level 103 mmol/L Carbon Dioxide Level 21 mmol/L Anion Gap 9.0 mmol/L Blood Urea Nitrogen 40 mg/dl Creatinine 6.30 mg/dl Est Creatinine Clear Calc Drug Dose 12.9 ml/min Estimated GFR () 7.6 Estimated GFR (Non- 6.5 BUN/Creatinine Ratio 6.4 Random Glucose 179 mg/dl Calcium Level 8.5 mg/dl Random Vancomycin Level 22.5 mcg/ml Test 11/14/16 11:26 11/14/16 16:48 11/14/16 20:36 Bedside Glucose 140 mg/dl 218 mg/dl 230 mg/dl Assessment and Plan (1) Positive blood culture Assessment & Plan: likely contaminant, Blood cultures negative (2) Cellulitis of leg Assessment & Plan: will stop zosyn. continue vanco, 7 days, then transition back to suppressive po doxy. no new ID recs. elevated legs. ) Acute and chronic hypercarbic respiratory failure treated with O2 via BiPAP, IVP Bicarb, and Emergent HD Will downgrade to non tele bed. Patient's mental status improved, Is on BIPAP at night. Patient currently has a diagnosis of COPD but unsure if this is the case given no PFT are in the chart, will obtain one as an outpatient. Continue management by pulmonary This is also likely complicated by her large BMI over 50 and large neck circumference. ESRD on dialysis Manage by nephrology COPD excaerbation likely with celluilitis Patient is on vanco and zosyn day 3. ID on board Pulmonary does not believe that the x-ray finding is likley atelectasis and not pneumonia. Chronic Diastolic CHF as noted on 2-d echo. Diabetes type 2 section HBA1C was 5.9. It appears controlled. will continue Insulin sliding scale. dvt proph:Heparin subq GI prophylaxis: continue home PPI Continued [facility] stay due to: ambulation difficulties, other (Reqies iv antibiotics, recovering from copd exacerbation) Discharge planning: uncertain
[2016-11-14] MEDS: HYDROCODONE/ACETAMOPHEN 5/325MG TAB PO PRN (23:09)
[2016-11-15] VITALS (29 sets, daily range): BP systolic 89–135; BP diastolic 42–101; PULSE 70–98; TEMP 36.4–36.8; O2SAT 91–96
[2016-11-15] MEDS: INSULIN ASPART 100 UNITS/ML 3 ML PEN SC SCH ×6 (00:17→21:01)
[2016-11-15] MEDS: PIPERACILL/TAZOBAC IV 4.5 GM in DEXTROSE 5% 100ML IV SCH (04:07)
[2016-11-15] MEDS ORDERED: PARICALCITOL 5 MCG/ML VIAL (ZEMPLAR) IV. SCH (06:00)
[2016-11-15] MEDS ORDERED: EPOETIN ALFA 10,000 UNITS/ML VIAL IV. SCH (06:00)
[2016-11-15] MEDS ORDERED: HEPARIN SOD (PORCINE) 1000 UNIT/ML 10 ML VIAL IV SCH (06:00)
[2016-11-15] MEDS: ALBUT/IPRATROP 3MG/0.5MG NEB 3 ML VIAL INH SCH ×4 (07:08→18:51)
[2016-11-15] MEDS: HEPARIN SOD 5000 UNIT/0.5 ML CARP SQ SCH ×2 (07:41→20:58)
[2016-11-15] MEDS: FLUTICASONE/SALMETEROL (ADVAIR) 500/50 INH 14 PUFF INH SCH ×2 (07:43→21:01)
[2016-11-15] MEDS: SILVER SULFADIAZINE 1% CR 50 GM JAR EXT SCH (07:43)
[2016-11-15] MEDS: CALCIUM ACETATE 667MG GELCAP PO SCH ×4 (08:00→21:01)
[2016-11-15 08:20] LABS: HEMATOCRIT 33.4 % (37-47); MEAN CELL VOLUME 103.4 fL (80-100); MEAN CORPUSCULAR HEMOGLOBIN 31.9 pg (25-34); MEAN CORPUSCULAR HGB CONC 30.8 g/dl (32-36); PLATELET COUNT 169 K/uL (130-400); RED BLOOD COUNT 3.23 M/uL (4.2-5.4)
[2016-11-15] MEDS: INSULIN GLARGINE SC SCH ×2 (08:45→20:57)
[2016-11-15 08:47] LABS: BUN/CREATININE RATIO 7.1 (10-20); CALCIUM 8.7 mg/dl (8.5-10.1); CREATININE 8.5 mg/dl (0.60-1.20); POTASSIUM 5.2 mmol/L (3.5-5.1)
[2016-11-15] MEDS: HEPARIN SOD (PORCINE) 1000 UNIT/ML 10 ML VIAL IV SCH ×3 (10:00→12:00)
--- NOTE | 2016-11-15 11:00 | Dialysis Progress Note ---
Hemodialysis Note Date of Service Nov 15, 2016. Chief Complaint Follow-up for end-stage renal disease. Subjective Jazmin was seen and examined during hemodialysis treatment this morning. She has been tolerating dialysis well, blood pressure, heart rate stable. Denies any chest pain, shortness of breath, dizziness or lightheadedness. Denies leg cramp. She reports an episode of epistaxis last night which resolved with cord compression and pressing on her nose. Review of Systems A complete review of systems was performed. Pertinent positives are noted above. All other systems are negative. Vital Signs Last 8 Hrs Date Time Temp Pulse Resp B/P (MAP) Pulse Ox O2 Delivery O2 Flow Rate FiO2 11/15/16 10:45 84 106/58 11/15/16 10:30 82 100/46 11/15/16 10:15 82 114/49 11/15/16 10:00 82 123/60 11/15/16 09:45 83 135/68 11/15/16 09:30 83 126/62 11/15/16 09:15 83 131/68 11/15/16 09:00 36.5 87 122/62 (82) 11/15/16 08:00 Nasal Cannula 2.0 11/15/16 07:45 121/70 (87) 11/15/16 07:12 36.7 85 22 89/54 (66) 92 Nasal Cannula 2.0 11/15/16 07:08 73 18 91 Nasal Cannula 2.0 Last Recorded Weight Weight (Kilograms): 149.400 Physical Exam GENERAL: Middle-aged female AAA x 3, morbidly obese, not in any distress. NECK: Supple, no JVD. RESPIRATORY: Normal breathing efforts, no accessory muscle use, clear to auscultation bilaterally, no wheezes or rales. CARDIOVASCULAR: S1, S2 normal, rate rhythm regular. EXTREMITY: Edema, it erythema and warmth of bilateral lower extremity with superficial skin break and open on the right lower extremity NEURO: speech fluent. PSYCHIATRY: Normal mood and judgment Family History Negative for CKD / ESRD Social History Smoking Status: Former smoker Drug Use: none Marital Status: Housing Status: lives with family Occupation: unemployed . Lives at home. Former smoker Laboratory Results Past 24 Hours 11/15/16 07:56 11/15/16 07:57 Test 11/14/16 11:26 11/14/16 16:48 11/14/16 20:36 11/15/16 00:00 Bedside Glucose 140 mg/dl (70-90) 218 mg/dl (70-90) 230 mg/dl (70-90) 213 mg/dl (70-90) Test 11/15/16 04:02 11/15/16 07:32 11/15/16 07:56 11/15/16 07:57 Bedside Glucose 180 mg/dl (70-90) 159 mg/dl (70-90) Red Blood Count 3.23 M/uL (4.2-5.4) Mean Corpuscular Volume 103.4 fL (80-100) Mean Corpuscular Hemoglobin 31.9 pg (25-34) Mean Corpuscular Hemoglobin Concent 30.8 g/dl (32-36) RDW Standard Deviation 82.7 fL (36.4-46.3) RDW Coefficient of Variation 21.9 % (11.5-14.5) Mean Platelet Volume 10.0 fL (7.4-10.4) Nucleated RBC Absolute Count (auto) 0.54 K/uL (0-0) Nucleated Red Blood Cells % 5.4 % Anion Gap 12.0 mmol/L (3-11) Est Creatinine Clear Calc Drug Dose 9.6 ml/min Estimated GFR () 5.3 Estimated GFR (Non- 4.5 BUN/Creatinine Ratio 7.1 (10-20) Calcium Level 8.7 mg/dl (8.5-10.1) Chemistry Specimen Hemolysis Random Vancomycin Level 20.9 mcg/ml Allergies Coded Allergies: Daptomycin (Verified Allergy, Mild, HIVES, 11/11/16) itching Iodine (Verified Allergy, Unknown, 11/11/16) Shellfish (Verified Allergy, Unknown, 11/11/16) Sulfamethoxazole w/Trimethoprim (Verified Allergy, Unknown, RASH, 11/11/16) Codeine (Verified Adverse Reaction, Unknown, NAUSEA, 11/11/16) has tolerated morphine Uncoded Allergies: kristina wipes (Allergy, Severe, red rash, excoriation, 09/19/16) comfort baths (Adverse Reaction, Severe, rash, "breaks out all over", ) Medications Current Inpatient Medications Medications (Trade) Dose Ordered Sig/Duyen Route Start Time Stop Time Status Last Admin Dose Admin Vancomycin HCl (Consult) 1 ea UD N/A 11/11/16 16:25 12/11/16 16:24 Albuterol/ Ipratropium (Duoneb) 3 ml QIDR INH 11/11/16 16:00 12/11/16 15:59 11/15/16 07:08 3 ML Allopurinol (Zyloprim Tab) 100 mg DAILY PO 11/12/16 09:00 12/12/16 08:59 11/14/16 08:23 100 MG Atorvastatin Calcium (Lipitor Tab) 40 mg DAILY PO 11/12/16 09:00 12/12/16 08:59 11/14/16 08:23 40 MG Vitamin B Complex/ Vit C/Folic Acid (Nephrocaps) 1 cap QAM PO 11/12/16 09:00 12/12/16 08:59 11/14/16 08:24 1 CAP Calcium Acetate (Phoslo Cap) 667 mg ACHS PO 11/11/16 16:00 12/11/16 15:59 11/14/16 20:45 667 MG Cholecalciferol (Vitamin D Tab) 1,000 inter.unit DAILY PO 11/12/16 09:00 12/12/16 08:59 11/14/16 08:23 1,000 INTER.UNIT Famotidine (Pepcid Tab) 20 mg DAILY PO 11/12/16 09:00 12/12/16 08:59 11/14/16 08:23 20 MG Salmeterol Xinafoate/ Fluticasone (Advair Diskus 500/50 Inh) 1 puff BID INH 11/11/16 21:00 12/11/16 20:59 11/15/16 07:43 1 PUFF Acetaminophen/ Hydrocodone Bitart ([place] 5/325 Tab) 1 tab Q6H PRN PO 11/11/16 15:30 11/25/16 15:29 11/14/16 23:09 1 TAB Metoprolol Succinate (Toprol Xl Tab) 150 mg SuMoWeFr@0900 PO 11/12/16 09:00 12/12/16 08:59 11/14/16 08:24 150 MG Multivitamins/ Minerals (Multivitamin W/ Minerals Tab) 1 tab DAILY PO 11/12/16 09:00 12/12/16 08:59 11/14/16 08:24 1 TAB Pantoprazole Sodium (Protonix Tab) 40 mg DAILY PO 11/12/16 09:00 12/12/16 08:59 11/14/16 08:24 40 MG Pyridoxine HCl (Vitamin B-6 Tab) 200 mg DAILY PO 11/12/16 09:00 12/12/16 08:59 11/14/16 08:23 200 MG Silver Sulfadiazine (Silvadene 1% Crm 50GM Jar) 1 appln DAILY EXT 11/12/16 09:00 12/12/16 08:59 11/15/16 07:43 1 APPLN Tiotropium Nicholls (Spiriva Handihaler Inhaler) 1 puff DAILY INH 11/12/16 09:00 12/12/16 08:59 11/14/16 08:24 1 PUFF Ascorbic Acid (Vitamin C Tab) 1,000 mg DAILY PO 11/12/16 09:00 12/12/16 08:59 11/14/16 08:23 1,000 MG gh-Csyju-Fcnjzznavg Acetate (Vitamin E Cap) 800 interunit DAILY PO 11/12/16 09:00 12/12/16 08:59 11/14/16 08:23 800 INTERUNIT Miscellaneous Information (Consult Glycemic Management Pharmacy) 1 ea UD PRN N/A 11/11/16 16:00 12/11/16 15:59 Heparin Sodium (Porcine) (Heparin Sq 5000 Unit/0.5ml) 5,000 unit Q12 SQ 11/11/16 21:00 12/11/16 20:59 11/14/16 20:51 5,000 UNIT Hydromorphone HCl (Dilaudid Inj) 1 mg Q8H PRN IV 11/11/16 15:30 11/25/16 15:29 11/11/16 17:27 1 MG Pregabalin (Lyrica Cap) 50 mg DAILY PO 11/12/16 09:00 12/12/16 08:59 11/14/16 08:23 50 MG Miconazole Nitrate (Desenex Powder) 1 appln PRN PRN EXT 11/11/16 17:15 12/11/16 17:14 11/11/16 19:23 1 APPLN Doxycycline Hyclate (Vibramycin Cap) 100 mg BID PO 11/11/16 21:00 12/12/16 20:59 11/14/16 20:45 100 MG Insulin Aspart (novoLOG ASPART) SLIDING SCALE ACHS SC 11/12/16 11:00 12/12/16 10:59 11/15/16 08:44 33 UNITS Prednisone (PredniSONE TAB) 50 mg DAILY PO 11/13/16 09:00 11/16/16 09:01 11/14/16 08:22 50 MG Glucose (Glucose 40% Gel) 15-30 GRAMS 15 GRAMS... UD PRN PO 11/12/16 14:15 12/12/16 14:14 Glucose (Glucose Chew Tab) 4-8 Tablets 4 Tabl... UD PRN PO 11/12/16 14:15 12/12/16 14:14 Dextrose (Dextrose 50% 50ML Syringe) 25-50ML OF 50% DW IV FOR... UD PRN IV 11/12/16 14:15 12/12/16 14:14 Glucagon (Glucagon Inj) 1 mg UD PRN SQ 11/12/16 14:15 12/12/16 14:14 Insulin Aspart (novoLOG ASPART) SLIDING SCALE 0000,0400 SC 11/13/16 00:00 12/13/16 00:00 11/15/16 04:09 8 UNITS Epoetin Simba (Procrit Inj) 10,000 units 0600 IV. 11/15/16 06:00 11/15/16 16:00 Paricalcitol (Zemplar Inj) 3 mcg 0600 IV. 11/15/16 06:00 11/15/16 16:00 Insulin Glargine (Lantus Vial) 90 units BID SC 11/15/16 08:00 12/15/16 07:59 11/15/16 08:45 90 UNITS Vancomycin HCl 500 mg/Sodium Chloride 260 ml @ 125 mls/hr TODAY@1600 ONCE IV 11/15/16 16:00 11/15/16 18:04 Impression (1) ESRD on hemodialysis (2) Hypercapnic respiratory failure (3) Obesity hypoventilation syndrome (4) Cellulitis of leg Mrs. Gaytan has recurrent hypercapnic respiratory failure despite adherence to NIPPV at home. Her CXR is concerning for a RLL infiltrate. Patient has dry cracked skin on her feet and bilateral LE cellulitis. She has ESRD due to cardiorenal syndrome and requires TTS HD (4.5hr F-180NR Qb300 Qd A1.5 3K 2.5 Ca EDW 137.7 kg Heparin 2000 load w/ 1000 units hourly). She has not yet HD today. BUN is markedly elevated but other electrolytes including serum bicarbonate are currently acceptable. Recommendations -- tolerating HD, UF 2 liters -- IJ THC placed 07/25/16. L upper arm AVF created 08/19/[address] Thapa. AVF has + bruit but venous limb is too deep for use. Tentative plan for transposition on 11/18/2016 -- Blood pressure is acceptable. -- Will monitor H&H and provide SAMARA as needed to keep Hgb 10 - 11 --continue on Nephrocaps and phosphate binder with meal -- Patient is on Vanco, Zosyn and Doxycycline. Continue antibiotics as per ID network consultant
--- NOTE | 2016-11-15 11:08 | Pharmacy Progress Note ---
Pharmacy Antibiotic Prog Note Date of Service Nov 15, 2016. Subjective The patient is currently receiving Vancomycin based on levels before HD The patient is currently on day # 5 of 7 IV therapy. Objective Height (Feet): 5 Height (Inches): 4.00 Weight (Kilograms): 149.400 Levels: Item Value Date Time Random Vancomycin Level 20.9 mcg/ml 11/15/16 0757 Lab Results (24hrs): Test 11/15/16 04:02 11/15/16 07:32 11/15/16 07:56 11/15/16 07:57 Bedside Glucose 180 mg/dl (70-90) 159 mg/dl (70-90) White Blood Count 9.90 K/uL (4.8-10.8) Red Blood Count 3.23 M/uL (4.2-5.4) Hemoglobin 10.3 g/dL (12.0-16.0) Hematocrit 33.4 % (37-47) Mean Corpuscular Volume 103.4 fL (80-100) Mean Corpuscular Hemoglobin 31.9 pg (25-34) Mean Corpuscular Hemoglobin Concent 30.8 g/dl (32-36) RDW Standard Deviation 82.7 fL (36.4-46.3) RDW Coefficient of Variation 21.9 % (11.5-14.5) Platelet Count 169 K/uL (130-400) Mean Platelet Volume 10.0 fL (7.4-10.4) Nucleated RBC Absolute Count (auto) 0.54 K/uL (0-0) Nucleated Red Blood Cells % 5.4 % Sodium Level 132 mmol/L (136-145) Potassium Level 5.2 mmol/L (3.5-5.1) Chloride Level 102 mmol/L (98-107) Carbon Dioxide Level 18 mmol/L (21-32) Anion Gap 12.0 mmol/L (3-11) Blood Urea Nitrogen 60 mg/dl (7-18) Creatinine 8.50 mg/dl (0.60-1.20) Est Creatinine Clear Calc Drug Dose 9.6 ml/min Estimated GFR () 5.3 Estimated GFR (Non- 4.5 BUN/Creatinine Ratio 7.1 (10-20) Random Glucose 152 mg/dl (70-99) Calcium Level 8.7 mg/dl (8.5-10.1) Chemistry Specimen Hemolysis Random Vancomycin Level 20.9 mcg/ml Micro Results: See EMR Assessment & Plan Level is therapeutic. Will redose with 500mg after HD today. If patient does not receive HD again until Thursday, no further doses or levels are necessary as patient should remain therapeutic until the end of 7 day course (11/17). Conferred with Dr. Smith and will discontinue the zosyn and place the doxycycline on hold until 11/18 @0900 after the vancomcyin course is completed. Pharmacy will continue to follow and will adjust dose/frequency as necessary. Thank you
[2016-11-15] MEDS: TIOTROPIUM BROMIDE 5 PUFF/90 MCG INH INH SCH (14:33)
[2016-11-15] MEDS: CHOLECALCIFEROL 1000 INTER.UNIT TAB PO SCH (14:34)
[2016-11-15] MEDS: ALLOPURINOL 100 MG TAB PO SCH (14:34)
[2016-11-15] MEDS: CEROVITE ADV FORMULA TAB PO SCH (14:34)
[2016-11-15] MEDS: PYRIDOXINE HCL 50 MG TAB PO SCH (14:35)
[2016-11-15] MEDS: TOCOPHERYL, DL-ALPHA 400 INTER.UNIT CAP PO SCH (14:35)
[2016-11-15] MEDS: NEPHROCAPS PO SCH (14:35)
[2016-11-15] MEDS: PANTOprazole SOD 40 MG TAB PO SCH (14:35)
[2016-11-15] MEDS: ATORVASTATIN 40 MG TAB PO SCH (14:36)
[2016-11-15] MEDS: FAMOTIDINE 20 MG TAB PO SCH (14:36)
[2016-11-15] MEDS: ASCORBIC ACID 500 MG TAB PO SCH (14:36)
[2016-11-15] MEDS: HYDROCODONE/ACETAMOPHEN 5/325MG TAB PO PRN ×2 (14:43→23:19)
[2016-11-15] MEDS: PREGABALIN 50 MG CAP PO SCH (14:43)
[2016-11-15] MEDS ORDERED: VANCOMYCIN INJ 500 MG in SODIUM CHLORIDE 0.9% 250ML 250 ML IV ONE (16:00)
--- NOTE | 2016-11-15 22:17 | Progress Note ---
Subjective Date of Service: Nov 15, 2016. Subjective Patient states that her pain and, warmth and erythema of her lower extremities have improved. Px denies any fever chills nausea vomiting. Problem List Medical Problems: (1) Acute respiratory failure with hypoxia and hypercarbia Status: Acute (2) Altered mental status Status: Acute (3) Anasarca Status: Acute (4) Anasarca Status: Acute (5) Bilateral cellulitis of lower leg Status: Acute (6) Bilateral lower leg cellulitis Status: Acute (7) Cellulitis of leg Status: Acute (8) Change in mental status Status: Acute (9) Chronic renal failure Status: Acute (10) CO2 retention Status: Acute (11) Contusion of multiple sites Status: Acute (12) Dehydration Status: Acute (13) Dyspnea on exertion Status: Acute (14) Fall Status: Acute (15) Fall Status: Acute (16) Fever Status: Acute (17) Fever Status: Acute (18) Generalized weakness Status: Acute (19) Hypercarbia Status: Acute (20) Hyperkalemia Status: Acute (21) Hypokalemia Status: Acute (22) Hypoventilation Status: Acute (23) Hypoxemia Status: Acute (24) Hypoxia Status: Acute (25) Lumbar strain Status: Acute (26) Metabolic acidosis Status: Acute (27) Nail avulsion of toe Status: Acute (28) Obesity Status: Acute (29) Positive blood culture Status: Acute (30) Respiratory acidosis Status: Acute (31) Respiratory failure Status: Acute (32) Weakness Status: Acute (33) Weight gain Status: Acute (34) Wrist pain Status: Acute Review of Systems Constitutional: No fever, No chills Respiratory: No cough, No sputum Cardiac: No chest pain, No orthopnea Abdomen: No pain, No nausea Endo: No fatigue All Other Systems: Reviewed and Negative Medications Current Inpatient Medications Medications (Trade) Dose Ordered Sig/Duyen Route Start Time Stop Time Status Last Admin Dose Admin Vancomycin HCl (Consult) 1 ea UD N/A 11/11/16 16:25 12/11/16 16:24 Albuterol/ Ipratropium (Duoneb) 3 ml QIDR INH 11/11/16 16:00 12/11/16 15:59 11/15/16 18:51 3 ML Allopurinol (Zyloprim Tab) 100 mg DAILY PO 11/12/16 09:00 12/12/16 08:59 11/15/16 14:34 100 MG Atorvastatin Calcium (Lipitor Tab) 40 mg DAILY PO 11/12/16 09:00 12/12/16 08:59 11/15/16 14:36 40 MG Vitamin B Complex/ Vit C/Folic Acid (Nephrocaps) 1 cap QAM PO 11/12/16 09:00 12/12/16 08:59 11/15/16 14:35 1 CAP Calcium Acetate (Phoslo Cap) 667 mg ACHS PO 11/11/16 16:00 12/11/16 15:59 11/15/16 21:01 667 MG Cholecalciferol (Vitamin D Tab) 1,000 inter.unit DAILY PO 11/12/16 09:00 12/12/16 08:59 11/15/16 14:34 1,000 INTER.UNIT Famotidine (Pepcid Tab) 20 mg DAILY PO 11/12/16 09:00 12/12/16 08:59 11/15/16 14:36 20 MG Salmeterol Xinafoate/ Fluticasone (Advair Diskus 500/50 Inh) 1 puff BID INH 11/11/16 21:00 12/11/16 20:59 11/15/16 21:01 1 PUFF Acetaminophen/ Hydrocodone Bitart ([place] 5/325 Tab) 1 tab Q6H PRN PO 11/11/16 15:30 11/25/16 15:29 11/15/16 14:43 1 TAB Metoprolol Succinate (Toprol Xl Tab) 150 mg SuMoWeFr@0900 PO 11/12/16 09:00 12/12/16 08:59 11/14/16 08:24 150 MG Multivitamins/ Minerals (Multivitamin W/ Minerals Tab) 1 tab DAILY PO 11/12/16 09:00 12/12/16 08:59 11/15/16 14:34 1 TAB Pantoprazole Sodium (Protonix Tab) 40 mg DAILY PO 11/12/16 09:00 12/12/16 08:59 11/15/16 14:35 40 MG Pyridoxine HCl (Vitamin B-6 Tab) 200 mg DAILY PO 11/12/16 09:00 12/12/16 08:59 11/15/16 14:35 200 MG Silver Sulfadiazine (Silvadene 1% Crm 50GM Jar) 1 appln DAILY EXT 11/12/16 09:00 12/12/16 08:59 11/15/16 07:43 1 APPLN Tiotropium Tye (Spiriva Handihaler Inhaler) 1 puff DAILY INH 11/12/16 09:00 12/12/16 08:59 11/15/16 14:33 1 PUFF Ascorbic Acid (Vitamin C Tab) 1,000 mg DAILY PO 11/12/16 09:00 12/12/16 08:59 11/15/16 14:36 1,000 MG oh-Drgvz-Meawhjyxza Acetate (Vitamin E Cap) 800 interunit DAILY PO 11/12/16 09:00 12/12/16 08:59 11/15/16 14:35 800 INTERUNIT Miscellaneous Information (Consult Glycemic Management Pharmacy) 1 ea UD PRN N/A 11/11/16 16:00 12/11/16 15:59 Heparin Sodium (Porcine) (Heparin Sq 5000 Unit/0.5ml) 5,000 unit Q12 SQ 11/11/16 21:00 12/11/16 20:59 11/15/16 20:58 5,000 UNIT Hydromorphone HCl (Dilaudid Inj) 1 mg Q8H PRN IV 11/11/16 15:30 11/25/16 15:29 11/11/16 17:27 1 MG Pregabalin (Lyrica Cap) 50 mg DAILY PO 11/12/16 09:00 12/12/16 08:59 11/15/16 14:43 50 MG Miconazole Nitrate (Desenex Powder) 1 appln PRN PRN EXT 11/11/16 17:15 12/11/16 17:14 11/11/16 19:23 1 APPLN Doxycycline Hyclate (Vibramycin Cap) 100 mg BID PO 11/11/16 21:00 12/12/16 20:59 Future hold 11/14/16 20:45 100 MG Insulin Aspart (novoLOG ASPART) SLIDING SCALE ACHS SC 11/12/16 11:00 12/12/16 10:59 11/15/16 18:24 34 UNITS Prednisone (PredniSONE TAB) 50 mg DAILY PO 11/13/16 09:00 11/16/16 09:01 11/15/16 14:34 50 MG Glucose (Glucose 40% Gel) 15-30 GRAMS 15 GRAMS... UD PRN PO 11/12/16 14:15 12/12/16 14:14 Glucose (Glucose Chew Tab) 4-8 Tablets 4 Tabl... UD PRN PO 11/12/16 14:15 12/12/16 14:14 Dextrose (Dextrose 50% 50ML Syringe) 25-50ML OF 50% DW IV FOR... UD PRN IV 11/12/16 14:15 12/12/16 14:14 Glucagon (Glucagon Inj) 1 mg UD PRN SQ 11/12/16 14:15 12/12/16 14:14 Insulin Aspart (novoLOG ASPART) SLIDING SCALE 0000,0400 SC 11/13/16 00:00 12/13/16 00:00 11/15/16 04:09 8 UNITS Insulin Glargine (Lantus Vial) 90 units BID SC 11/15/16 08:00 12/15/16 07:59 11/15/16 20:57 90 UNITS Objective Vital Signs Date Time Temp Pulse Resp B/P (MAP) Pulse Ox O2 Delivery O2 Flow Rate FiO2 11/15/16 16:19 Nasal Cannula 2.0 11/15/16 15:14 80 18 92 Nasal Cannula 2.0 11/15/16 14:15 36.6 91 18 109/60 (76) 93 Nasal Cannula 2.0 11/15/16 14:09 36.5 85 114/54 (74) 11/15/16 13:30 84 112/57 11/15/16 13:15 79 125/101 11/15/16 13:00 83 91/50 11/15/16 12:45 70 102/44 11/15/16 12:30 82 107/92 11/15/16 12:15 81 118/59 11/15/16 12:00 80 116/65 11/15/16 11:45 82 104/42 11/15/16 11:30 78 122/52 11/15/16 11:15 81 111/56 11/15/16 11:00 78 107/47 11/15/16 10:45 84 106/58 11/15/16 10:30 82 100/46 11/15/16 10:15 82 114/49 11/15/16 10:00 82 123/60 11/15/16 09:45 83 135/68 11/15/16 09:30 83 126/62 11/15/16 09:15 83 131/68 11/15/16 09:00 36.5 87 122/62 (82) 11/15/16 08:00 Nasal Cannula 2.0 11/15/16 07:45 121/70 (87) 11/15/16 07:12 36.7 85 22 89/54 (66) 92 Nasal Cannula 2.0 11/15/16 07:08 73 18 91 Nasal Cannula 2.0 11/15/16 00:24 BiPAP 11/15/16 00:07 36.4 93 20 98/55 (69) 92 2.0 11/14/16 23:40 76 96 35 11/14/16 20:15 Nasal Cannula 2.0 11/14/16 19:11 98 18 94 Nasal Cannula 2.0 Physical Exam Comments: General Appearance: WD/WN, no apparent distress Neck: supple, no adenopathy, thyroid normal Respiratory/Chest: chest non-tender, lungs clear, normal breath sounds Cardiovascular: regular rate, rhythm, no edema, no gallop Abdomen: normal bowel sounds, non tender Extremities: + pertinent finding (erythema noted in b/l lower extremities from knees to ankles. no longer ttp.) Lymphatic: no adenopathy Laboratory Results Last 24 Hours Test 11/14/16 20:36 11/15/16 00:00 11/15/16 04:02 11/15/16 07:32 Bedside Glucose 230 mg/dl 213 mg/dl 180 mg/dl 159 mg/dl Test 11/15/16 07:56 11/15/16 07:57 11/15/16 11:16 11/15/16 16:36 White Blood Count 9.90 K/uL Red Blood Count 3.23 M/uL Hemoglobin 10.3 g/dL Hematocrit 33.4 % Mean Corpuscular Volume 103.4 fL Mean Corpuscular Hemoglobin 31.9 pg Mean Corpuscular Hemoglobin Concent 30.8 g/dl RDW Standard Deviation 82.7 fL RDW Coefficient of Variation 21.9 % Platelet Count 169 K/uL Mean Platelet Volume 10.0 fL Nucleated RBC Absolute Count (auto) 0.54 K/uL Nucleated Red Blood Cells % 5.4 % Sodium Level 132 mmol/L Potassium Level 5.2 mmol/L Chloride Level 102 mmol/L Carbon Dioxide Level 18 mmol/L Anion Gap 12.0 mmol/L Blood Urea Nitrogen 60 mg/dl Creatinine 8.50 mg/dl Est Creatinine Clear Calc Drug Dose 9.6 ml/min Estimated GFR () 5.3 Estimated GFR (Non- 4.5 BUN/Creatinine Ratio 7.1 Random Glucose 152 mg/dl Calcium Level 8.7 mg/dl Chemistry Specimen Hemolysis Random Vancomycin Level 20.9 mcg/ml Bedside Glucose 139 mg/dl 135 mg/dl Assessment and Plan (1) Positive blood culture Assessment & Plan: likely contaminant, Blood cultures negative (2) Cellulitis of leg Assessment & Plan: will stop zosyn. continue vanco, 7 days, then transition back to suppressive po doxy. no new ID recs. will stop zosyn. continue vanco, 7 days, then transition back to suppressive po doxy. no new ID recs. elevated legs. On day 4 of antibiotic. (started late evening thursday) ) Acute and chronic hypercarbic respiratory failure treated with O2 via BiPAP, IVP Bicarb, and Emergent HD Acute presentation is resolved Is on BIPAP at night. Patient currently has a diagnosis of COPD but unsure if this is the case given no PFT are in the chart, will obtain one as an outpatient. Continue management by pulmonary This is also likely complicated by her large BMI over 50 and large neck circumference. ESRD on dialysis Manage by nephrology COPD excaerbation likely with celluilitis Patient is on vanco and zosyn day 3. ID on board Pulmonary does not believe that the x-ray finding is likley atelectasis and not pneumonia. Chronic Diastolic CHF as noted on 2-d echo. Diabetes type 2 section HBA1C was 5.9. It appears controlled. will continue Insulin sliding scale. dvt proph:Heparin subq GI prophylaxis: continue home PPI Continued [facility] stay due to: ambulation difficulties, other (Reqies iv antibiotics, recovering from copd exacerbation) Discharge planning: uncertain
[2016-11-16] MEDS: INSULIN ASPART 100 UNITS/ML 3 ML PEN SC SCH ×7 (00:05→23:59)
[2016-11-16 06:56] VITALS: BP 112/52; PULSE 96; TEMP 36.7; O2SAT 94
[2016-11-16] MEDS: ALBUT/IPRATROP 3MG/0.5MG NEB 3 ML VIAL INH SCH ×4 (06:58→19:04)
[2016-11-16 06:59] VITALS: PULSE 92; O2SAT 94
[2016-11-16 07:16] LABS: BASO % 0.1 %; BASO ABS # 0.01 K/uL (0-0.2); EOS % 0.2 %; HEMATOCRIT 34.8 % (37-47); IG% 1.6 %; LYMPH % 6.7 %; LYMPH ABS # 0.85 K/uL (1.2-3.4); MEAN CELL VOLUME 106.7 fL (80-100); MEAN CORPUSCULAR HEMOGLOBIN 31.3 pg (25-34); MEAN CORPUSCULAR HGB CONC 29.3 g/dl (32-36); MEAN PLATELET VOLUME 10.9 fL (7.4-10.4); MONO % 9.1 %; NEUT % 82.3 %; PLATELET COUNT 191 K/uL (130-400); RED BLOOD COUNT 3.26 M/uL (4.2-5.4); WHITE BLOOD COUNT 12.68 K/uL (4.8-10.8)
[2016-11-16 07:44] LABS: ANISOCYTOSIS PRESENT; COMPLETE YES; POLYCHROMASIA 1+
[2016-11-16 07:56] LABS: BUN/CREATININE RATIO 6.4 (10-20); CALCIUM 8.3 mg/dl (8.5-10.1); CREATININE 6.2 mg/dl (0.60-1.20)
[2016-11-16] MEDS: TIOTROPIUM BROMIDE 5 PUFF/90 MCG INH INH SCH (08:02)
[2016-11-16] MEDS: CALCIUM ACETATE 667MG GELCAP PO SCH ×4 (08:02→20:43)
[2016-11-16] MEDS: NEPHROCAPS PO SCH (08:02)
[2016-11-16] MEDS: FAMOTIDINE 20 MG TAB PO SCH (08:02)
[2016-11-16] MEDS: PANTOprazole SOD 40 MG TAB PO SCH (08:03)
[2016-11-16] MEDS: TOCOPHERYL, DL-ALPHA 400 INTER.UNIT CAP PO SCH (08:03)
[2016-11-16] MEDS: ASCORBIC ACID 500 MG TAB PO SCH (08:03)
[2016-11-16] MEDS: PYRIDOXINE HCL 50 MG TAB PO SCH (08:03)
[2016-11-16] MEDS: CHOLECALCIFEROL 1000 INTER.UNIT TAB PO SCH (08:03)
[2016-11-16] MEDS: CEROVITE ADV FORMULA TAB PO SCH (08:03)
[2016-11-16] MEDS: ALLOPURINOL 100 MG TAB PO SCH (08:04)
[2016-11-16] MEDS: SILVER SULFADIAZINE 1% CR 50 GM JAR EXT SCH (08:04)
[2016-11-16] MEDS: ATORVASTATIN 40 MG TAB PO SCH (08:04)
[2016-11-16] MEDS: FLUTICASONE/SALMETEROL (ADVAIR) 500/50 INH 14 PUFF INH SCH ×2 (08:04→20:33)
[2016-11-16] MEDS: METOPROLOL SUCC 50MG EXT REL TAB PO SCH (08:05)
[2016-11-16] MEDS: PREGABALIN 50 MG CAP PO SCH (08:11)
[2016-11-16] MEDS: HYDROCODONE/ACETAMOPHEN 5/325MG TAB PO PRN (08:11)
[2016-11-16] MEDS: INSULIN GLARGINE SC SCH ×2 (09:09→20:38)
[2016-11-16] MEDS: MICONAZOLE NITRATE POWDER 43 GM EXT PRN (09:10)
[2016-11-16] MEDS: HEPARIN SOD 5000 UNIT/0.5 ML CARP SQ SCH ×2 (09:10→20:41)
[2016-11-16 11:26] VITALS: PULSE 92; O2SAT 94
--- NOTE | 2016-11-16 12:07 | Nephrology Progress Note ---
Nephrology Progress Note Date of Service Nov 16, 2016. Chief Complaint Follow-up for end-stage renal disease. Subjective Jazmin was seen and examined this morning. She has been tolerating dialysis well, blood pressure, heart rate stable. Denies any chest pain, shortness of breath, dizziness or lightheadedness. Denies leg cramp. She reports an episode of epistaxis last night which resolved with cord compression and pressing on her nose. Review of Systems A complete review of systems was performed. Pertinent positives are noted above. All other systems are negative. Vital Signs Last 8 Hrs Date Time Temp Pulse Resp B/P (MAP) Pulse Ox O2 Delivery O2 Flow Rate FiO2 11/16/16 07:51 Nasal Cannula 2.0 11/16/16 06:59 92 18 94 Nasal Cannula 2.0 11/16/16 06:56 36.7 96 18 112/52 (72) 94 2.0 Last Recorded Weight Weight (Kilograms): 147.300 Physical Exam GENERAL: Middle-aged female AAA x 3, morbidly obese, not in any distress. NECK: Supple, no JVD. RESPIRATORY: Normal breathing efforts, no accessory muscle use, clear to auscultation bilaterally, no wheezes or rales. CARDIOVASCULAR: S1, S2 normal, rate rhythm regular. EXTREMITY: Edema, erythema and warmth of bilateral lower extremity with superficial skin break and open on the right lower extremity NEURO: speech fluent. PSYCHIATRY: Normal mood and judgment Family History Cancer Diabetes mellitus Gallbladder disease Heart disease Lung disease Negative for CKD / ESRD Social History Smoking Status: Former smoker Drug Use: none Marital Status: Housing Status: lives with family Occupation: unemployed . Lives at home. Former smoker Laboratory Results Past 24 Hours 11/16/16 06:58 Red Blood Count 3.26, Mean Corpuscular Volume 106.7, Mean Corpuscular Hemoglobin 31.3, Mean Corpuscular Hemoglobin Concent 29.3, Mean Platelet Volume 10.9, Neutrophils (%) (Auto) 82.3, Lymphocytes (%) (Auto) 6.7, Monocytes (%) ( Auto) 9.1, Eosinophils (%) (Auto) 0.2, Basophils (%) (Auto) 0.1, Neutrophils # ( Auto) 10.44, Lymphocytes # (Auto) 0.85, Monocytes # (Auto) 1.15, Eosinophils # ( Auto) 0.03, Basophils # (Auto) 0.01 11/16/16 06:58 Test 11/15/16 11:16 11/15/16 16:36 11/15/16 20:26 11/15/16 23:48 Bedside Glucose 139 mg/dl (70-90) 135 mg/dl (70-90) 130 mg/dl (70-90) 211 mg/dl (70-90) Test 11/16/16 03:47 11/16/16 06:58 11/16/16 07:34 Bedside Glucose 181 mg/dl (70-90) 150 mg/dl (70-90) White Blood Count 12.68 K/uL (4.8-10.8) Red Blood Count 3.26 M/uL (4.2-5.4) Hemoglobin 10.2 g/dL (12.0-16.0) Hematocrit 34.8 % (37-47) Mean Corpuscular Volume 106.7 fL (80-100) Mean Corpuscular Hemoglobin 31.3 pg (25-34) Mean Corpuscular Hemoglobin Concent 29.3 g/dl (32-36) Platelet Count 191 K/uL (130-400) Mean Platelet Volume 10.9 fL (7.4-10.4) Neutrophils (%) (Auto) 82.3 % Lymphocytes (%) (Auto) 6.7 % Monocytes (%) (Auto) 9.1 % Eosinophils (%) (Auto) 0.2 % Basophils (%) (Auto) 0.1 % Neutrophils # (Auto) 10.44 K/uL (1.4-6.5) Lymphocytes # (Auto) 0.85 K/uL (1.2-3.4) Monocytes # (Auto) 1.15 K/uL (0.11-0.59) Eosinophils # (Auto) 0.03 K/uL (0-0.5) Basophils # (Auto) 0.01 K/uL (0-0.2) RDW Standard Deviation 87.3 fL (36.4-46.3) RDW Coefficient of Variation 22.6 % (11.5-14.5) Immature Granulocyte % (Auto) 1.6 % Immature Granulocyte # (Auto) 0.20 K/uL (0.00-0.02) Nucleated RBC Absolute Count (auto) 0.72 K/uL (0-0) Nucleated Red Blood Cells % 5.7 % Polychromasia 1+ Anisocytosis PRESENT Macrocytosis PRESENT Anion Gap 9.0 mmol/L (3-11) Est Creatinine Clear Calc Drug Dose 13.6 ml/min Estimated GFR () 7.7 Estimated GFR (Non- 6.6 BUN/Creatinine Ratio 6.4 (10-20) Calcium Level 8.3 mg/dl (8.5-10.1) Allergies Coded Allergies: Daptomycin (Verified Allergy, Mild, HIVES, 11/11/16) itching Iodine (Verified Allergy, Unknown, 11/11/16) Shellfish (Verified Allergy, Unknown, 11/11/16) Sulfamethoxazole w/Trimethoprim (Verified Allergy, Unknown, RASH, 11/11/16) Codeine (Verified Adverse Reaction, Unknown, NAUSEA, 11/11/16) has tolerated morphine Uncoded Allergies: kristina wipes (Allergy, Severe, red rash, excoriation, 09/19/16) comfort baths (Adverse Reaction, Severe, rash, "breaks out all over", ) Medications Current Inpatient Medications Medications (Trade) Dose Ordered Sig/Duyen Route Start Time Stop Time Status Last Admin Dose Admin Vancomycin HCl (Consult) 1 ea UD N/A 11/11/16 16:25 12/11/16 16:24 Albuterol/ Ipratropium (Duoneb) 3 ml QIDR INH 11/11/16 16:00 12/11/16 15:59 11/16/16 06:58 3 ML Allopurinol (Zyloprim Tab) 100 mg DAILY PO 11/12/16 09:00 12/12/16 08:59 11/16/16 08:04 100 MG Atorvastatin Calcium (Lipitor Tab) 40 mg DAILY PO 11/12/16 09:00 12/12/16 08:59 11/16/16 08:04 40 MG Vitamin B Complex/ Vit C/Folic Acid (Nephrocaps) 1 cap QAM PO 11/12/16 09:00 12/12/16 08:59 11/16/16 08:02 1 CAP Calcium Acetate (Phoslo Cap) 667 mg ACHS PO 11/11/16 16:00 12/11/16 15:59 11/16/16 08:02 667 MG Cholecalciferol (Vitamin D Tab) 1,000 inter.unit DAILY PO 11/12/16 09:00 12/12/16 08:59 11/16/16 08:03 1,000 INTER.UNIT Famotidine (Pepcid Tab) 20 mg DAILY PO 11/12/16 09:00 12/12/16 08:59 11/16/16 08:02 20 MG Salmeterol Xinafoate/ Fluticasone (Advair Diskus 500/50 Inh) 1 puff BID INH 11/11/16 21:00 12/11/16 20:59 11/16/16 08:04 1 PUFF Acetaminophen/ Hydrocodone Bitart ([place] 5/325 Tab) 1 tab Q6H PRN PO 11/11/16 15:30 11/25/16 15:29 11/16/16 08:11 1 TAB Metoprolol Succinate (Toprol Xl Tab) 150 mg SuMoWeFr@0900 PO 11/12/16 09:00 12/12/16 08:59 11/16/16 08:05 150 MG Multivitamins/ Minerals (Multivitamin W/ Minerals Tab) 1 tab DAILY PO 11/12/16 09:00 12/12/16 08:59 11/16/16 08:03 1 TAB Pantoprazole Sodium (Protonix Tab) 40 mg DAILY PO 11/12/16 09:00 12/12/16 08:59 11/16/16 08:03 40 MG Pyridoxine HCl (Vitamin B-6 Tab) 200 mg DAILY PO 11/12/16 09:00 12/12/16 08:59 11/16/16 08:03 200 MG Silver Sulfadiazine (Silvadene 1% Crm 50GM Jar) 1 appln DAILY EXT 11/12/16 09:00 12/12/16 08:59 11/16/16 08:04 1 APPLN Tiotropium [place] (Spiriva Handihaler Inhaler) 1 puff DAILY INH 11/12/16 09:00 12/12/16 08:59 11/16/16 08:02 1 PUFF Ascorbic Acid (Vitamin C Tab) 1,000 mg DAILY PO 11/12/16 09:00 12/12/16 08:59 11/16/16 08:03 1,000 MG ef-Kwpcr-Diyjqjmhbv Acetate (Vitamin E Cap) 800 interunit DAILY PO 11/12/16 09:00 12/12/16 08:59 11/16/16 08:03 800 INTERUNIT Miscellaneous Information (Consult Glycemic Management Pharmacy) 1 ea UD PRN N/A 11/11/16 16:00 12/11/16 15:59 Heparin Sodium (Porcine) (Heparin Sq 5000 Unit/0.5ml) 5,000 unit Q12 SQ 11/11/16 21:00 12/11/16 20:59 11/15/16 20:58 5,000 UNIT Hydromorphone HCl (Dilaudid Inj) 1 mg Q8H PRN IV 11/11/16 15:30 11/25/16 15:29 11/11/16 17:27 1 MG Pregabalin (Lyrica Cap) 50 mg DAILY PO 11/12/16 09:00 12/12/16 08:59 11/16/16 08:11 50 MG Miconazole Nitrate (Desenex Powder) 1 appln PRN PRN EXT 11/11/16 17:15 12/11/16 17:14 11/11/16 19:23 1 APPLN Doxycycline Hyclate (Vibramycin Cap) 100 mg BID PO 11/11/16 21:00 12/12/16 20:59 Future hold 11/14/16 20:45 100 MG Insulin Aspart (novoLOG ASPART) SLIDING SCALE ACHS SC 11/12/16 11:00 12/12/16 10:59 11/15/16 18:24 34 UNITS Prednisone (PredniSONE TAB) 50 mg DAILY PO 11/13/16 09:00 11/16/16 09:01 11/16/16 08:03 50 MG Glucose (Glucose 40% Gel) 15-30 GRAMS 15 GRAMS... UD PRN PO 11/12/16 14:15 12/12/16 14:14 Glucose (Glucose Chew Tab) 4-8 Tablets 4 Tabl... UD PRN PO 11/12/16 14:15 12/12/16 14:14 Dextrose (Dextrose 50% 50ML Syringe) 25-50ML OF 50% DW IV FOR... UD PRN IV 11/12/16 14:15 12/12/16 14:14 Glucagon (Glucagon Inj) 1 mg UD PRN SQ 11/12/16 14:15 12/12/16 14:14 Insulin Aspart (novoLOG ASPART) SLIDING SCALE 0000,0400 SC 11/13/16 00:00 12/13/16 00:00 11/16/16 04:09 9 UNITS Insulin Glargine (Lantus Vial) 95 units BID SC 11/16/16 08:30 12/16/16 08:29 Impression (1) ESRD on hemodialysis (2) Hypercapnic respiratory failure (3) Obesity hypoventilation syndrome (4) Cellulitis of leg Mrs. Gaytan has recurrent hypercapnic respiratory failure despite adherence to NIPPV at home. Her CXR is concerning for a RLL infiltrate. Patient has dry cracked skin on her feet and bilateral LE cellulitis. She has ESRD due to cardiorenal syndrome and requires TTS HD (4.5hr F-180NR Qb300 Qd A1.5 3K 2.5 Ca EDW 137.7 kg Heparin 2000 load w/ 1000 units hourly). She has not yet HD today. BUN is markedly elevated but other electrolytes including serum bicarbonate are currently acceptable. Recommendations -- Had HD, yesterday and had UF 2 liters -- IJ THC placed 07/25/16. L upper arm AVF created 08/19/[address] Thapa. AVF has + bruit but venous limb is too deep for use. Tentative plan for transposition on 11/18/2016 -- Will monitor H&H and provide SAMARA as needed to keep Hgb 10 - 11 -- continue on Nephrocaps and phosphate binder with meal -- Patient is on Vanco, Zosyn and Doxycycline. Continue antibiotics as per ID campaign consultant
[2016-11-16] MEDS ORDERED: LORATADINE 10 MG TAB PO ONE (13:30)
--- NOTE | 2016-11-16 14:25 | Pharmacy Progress Note ---
Glycemic Control Progress Note Date of Service Nov 16, 2016. Scope Glycemic Pharmacist consulted for glycemic control to write orders per [facility] inpatient glycemic control protocol. Objective Accuchecks BSG (last 24hrs): Test 11/15/16 16:36 11/15/16 20:26 11/15/16 23:48 11/16/16 03:47 Bedside Glucose 135 mg/dl (70-90) 130 mg/dl (70-90) 211 mg/dl (70-90) 181 mg/dl (70-90) Test 11/16/16 06:58 11/16/16 07:34 11/16/16 11:03 Random Glucose 158 mg/dl (70-99) Bedside Glucose 150 mg/dl (70-90) 163 mg/dl (70-90) HbA1c: Test 11/12/16 05:49 Hemoglobin A1c 5.9 % (4.5-5.6) H Recent Pertinent Medications The patient is currently receiving: * Basal insulin: Lantus 90 units every 12 hours * Correctional Insulin: Novolog Correction per scale ACHS Goal Range: Low 110 mg/dL - High 140 mg/dL Correction Factor: 5 mg/dL/unit * Prandial insulin: Per carb ratio of 1 unit per 2 grams CHO consumed Outpatient Anti-Diabetic Meds basal Insulin Bolus Insulin Assessment & Plan ASSESSMENT: * See progress note from 11/11 for more background info, in short: * Pt receiving SQ basal bolus insulin regimen for hyperglycemia secondary to baseline DM (outpatient regimen on hold),stress/infection, and steroids * Patient is currently receiving an average of 299 units of insulin per day * 180 units of basal insulin * 119 units of prandial/correctional insulin * BSGs ranging 130-211 mg/dl over the past 24hrs * Changes needed to insulin regimen: * AM Fasting BSG = 150 mg/dl. This is in slightly above goal range for patient based on inpatient targets and co-morbidities. Pt is also requiring correctional Novolog insulin at 0000 and 0400 BSG checks, Therefore Basal insulin needs to continue to be increased, even though pt is on more basal than bolus insulin, pt has a heavy basal home regimen too (Toujeo 70 units TID) * Additional notes / comments: Pt on HD which causes some of the lability in patient's BSGs PLAN FOR INPATIENT GLYCEMIC CONTROL: * INCREASE Basal insulin * Lantus 95 units SQ BID * Bolus insulin * NovoLog per scale ACHS or Q6hrs while NPO and continue BSGs at 0000 and 0400 overnight * Goal Range: Low 110 mg/dL - High 140 mg/dL * Correction Factor: 5 mg/dL/unit * Nutritional / Prandial insulin per carb ratio of 1 unit per 2 grams CHO consumed RECOMMENDATIONS FOR DISCHARGE: * Continue home regimen * Please note that the plan above was derived based on current level of insulin resistance and hospital stress. These recommendations are appropriate for inpatient admission only. Plan of care upon discharge will need to be reassessed to avoid potential outpatient hypo/hyperglycemia. Thank you.
[2016-11-16 14:45] VITALS: BP 110/64; PULSE 85; TEMP 36.9; O2SAT 92
--- NOTE | 2016-11-16 15:02 | Progress Note ---
Subjective Date of Service: Nov 16, 2016. Subjective Pt evaluation today including: conversation w/ patient Patient reports that her B/l lower extremities continue to show improvement as they are less erythematous than yesterday. Patient also denies being SOB. Patient only complaint is that her bilateral eyes are itchy, with some clear small drainage when she wakes up. She denies any sick contacts, and none of her family and friends that have visited her exhibit the same symtpoms Problem List Medical Problems: (1) Acute respiratory failure with hypoxia and hypercarbia Status: Acute (2) Altered mental status Status: Acute (3) Anasarca Status: Acute (4) Anasarca Status: Acute (5) Bilateral cellulitis of lower leg Status: Acute (6) Bilateral lower leg cellulitis Status: Acute (7) Cellulitis of leg Status: Acute (8) Change in mental status Status: Acute (9) Chronic renal failure Status: Acute (10) CO2 retention Status: Acute (11) Contusion of multiple sites Status: Acute (12) Dehydration Status: Acute (13) Dyspnea on exertion Status: Acute (14) Fall Status: Acute (15) Fall Status: Acute (16) Fever Status: Acute (17) Fever Status: Acute (18) Generalized weakness Status: Acute (19) Hypercarbia Status: Acute (20) Hyperkalemia Status: Acute (21) Hypokalemia Status: Acute (22) Hypoventilation Status: Acute (23) Hypoxemia Status: Acute (24) Hypoxia Status: Acute (25) Lumbar strain Status: Acute (26) Metabolic acidosis Status: Acute (27) Nail avulsion of toe Status: Acute (28) Obesity Status: Acute (29) Positive blood culture Status: Acute (30) Respiratory acidosis Status: Acute (31) Respiratory failure Status: Acute (32) Weakness Status: Acute (33) Weight gain Status: Acute (34) Wrist pain Status: Acute Review of Systems Constitutional: No fever, No chills Eyes: + redness, + discharge, No worsening of vision, No eye pain Respiratory: No cough, No sputum Cardiac: No chest pain, No orthopnea Abdomen: No nausea Heme: No abnormal bleeding/bruising All Other Systems: Reviewed and Negative Medications Current Inpatient Medications Medications (Trade) Dose Ordered Sig/Duyen Route Start Time Stop Time Status Last Admin Dose Admin Vancomycin HCl (Consult) 1 ea UD N/A 11/11/16 16:25 12/11/16 16:24 Albuterol/ Ipratropium (Duoneb) 3 ml QIDR INH 11/11/16 16:00 12/11/16 15:59 11/16/16 11:26 3 ML Allopurinol (Zyloprim Tab) 100 mg DAILY PO 11/12/16 09:00 12/12/16 08:59 11/16/16 08:04 100 MG Atorvastatin Calcium (Lipitor Tab) 40 mg DAILY PO 11/12/16 09:00 12/12/16 08:59 11/16/16 08:04 40 MG Vitamin B Complex/ Vit C/Folic Acid (Nephrocaps) 1 cap QAM PO 11/12/16 09:00 12/12/16 08:59 11/16/16 08:02 1 CAP Calcium Acetate (Phoslo Cap) 667 mg ACHS PO 11/11/16 16:00 12/11/16 15:59 11/16/16 12:33 667 MG Cholecalciferol (Vitamin D Tab) 1,000 inter.unit DAILY PO 11/12/16 09:00 12/12/16 08:59 11/16/16 08:03 1,000 INTER.UNIT Famotidine (Pepcid Tab) 20 mg DAILY PO 11/12/16 09:00 12/12/16 08:59 11/16/16 08:02 20 MG Salmeterol Xinafoate/ Fluticasone (Advair Diskus 500/50 Inh) 1 puff BID INH 11/11/16 21:00 12/11/16 20:59 11/16/16 08:04 1 PUFF Acetaminophen/ Hydrocodone Bitart ([place] 5/325 Tab) 1 tab Q6H PRN PO 11/11/16 15:30 11/25/16 15:29 11/16/16 08:11 1 TAB Metoprolol Succinate (Toprol Xl Tab) 150 mg SuMoWeFr@0900 PO 11/12/16 09:00 12/12/16 08:59 11/16/16 08:05 150 MG Multivitamins/ Minerals (Multivitamin W/ Minerals Tab) 1 tab DAILY PO 11/12/16 09:00 12/12/16 08:59 11/16/16 08:03 1 TAB Pantoprazole Sodium (Protonix Tab) 40 mg DAILY PO 11/12/16 09:00 12/12/16 08:59 11/16/16 08:03 40 MG Pyridoxine HCl (Vitamin B-6 Tab) 200 mg DAILY PO 11/12/16 09:00 12/12/16 08:59 11/16/16 08:03 200 MG Silver Sulfadiazine (Silvadene 1% Crm 50GM Jar) 1 appln DAILY EXT 11/12/16 09:00 12/12/16 08:59 11/16/16 08:04 1 APPLN Tiotropium [place] (Spiriva Handihaler Inhaler) 1 puff DAILY INH 11/12/16 09:00 12/12/16 08:59 11/16/16 08:02 1 PUFF Ascorbic Acid (Vitamin C Tab) 1,000 mg DAILY PO 11/12/16 09:00 12/12/16 08:59 11/16/16 08:03 1,000 MG [id number]-[id number] Acetate (Vitamin E Cap) 800 interunit DAILY PO 11/12/16 09:00 12/12/16 08:59 11/16/16 08:03 800 INTERUNIT Miscellaneous Information (Consult Glycemic Management Pharmacy) 1 ea UD PRN N/A 11/11/16 16:00 12/11/16 15:59 Heparin Sodium (Porcine) (Heparin Sq 5000 Unit/0.5ml) 5,000 unit Q12 SQ 11/11/16 21:00 12/11/16 20:59 11/16/16 09:10 5,000 UNIT Hydromorphone HCl (Dilaudid Inj) 1 mg Q8H PRN IV 11/11/16 15:30 11/25/16 15:29 11/11/16 17:27 1 MG Pregabalin (Lyrica Cap) 50 mg DAILY PO 11/12/16 09:00 12/12/16 08:59 11/16/16 08:11 50 MG Miconazole Nitrate (Desenex Powder) 1 appln PRN PRN EXT 11/11/16 17:15 12/11/16 17:14 11/16/16 09:10 1 APPLN Doxycycline Hyclate (Vibramycin Cap) 100 mg BID PO 11/11/16 21:00 10/13/17 20:59 Future hold 11/14/16 20:45 100 MG Insulin Aspart (novoLOG ASPART) SLIDING SCALE ACHS SC 11/12/16 11:00 12/12/16 10:59 11/16/16 12:56 38 UNITS Glucose (Glucose 40% Gel) 15-30 GRAMS 15 GRAMS... UD PRN PO 11/12/16 14:15 12/12/16 14:14 Glucose (Glucose Chew Tab) 4-8 Tablets 4 Tabl... UD PRN PO 11/12/16 14:15 12/12/16 14:14 Dextrose (Dextrose 50% 50ML Syringe) 25-50ML OF 50% DW IV FOR... UD PRN IV 11/12/16 14:15 12/12/16 14:14 Glucagon (Glucagon Inj) 1 mg UD PRN SQ 11/12/16 14:15 12/12/16 14:14 Insulin Aspart (novoLOG ASPART) SLIDING SCALE 0000,0400 MS 11/13/16 00:00 12/13/16 00:00 11/16/16 04:09 9 UNITS Insulin Glargine (Lantus Vial) 95 units BID SC 11/16/16 08:30 12/16/16 08:29 11/16/16 09:09 95 UNITS Objective Vital Signs Date Time Temp Pulse Resp B/P (MAP) Pulse Ox O2 Delivery O2 Flow Rate FiO2 11/16/16 14:45 36.9 85 22 110/64 (79) 92 Room Air 11/16/16 11:26 92 18 94 Nasal Cannula 2.0 11/16/16 07:51 Nasal Cannula 2.0 11/16/16 06:59 92 18 94 Nasal Cannula 2.0 11/16/16 06:56 36.7 96 18 112/52 (72) 94 2.0 11/15/16 23:59 95 96 35 11/15/16 23:54 Nasal Cannula 2.0 11/15/16 23:35 36.8 98 20 91/44 (60) 96 2.0 11/15/16 20:09 Nasal Cannula 2.0 Humidified Oxygen 11/15/16 18:53 92 18 92 Nasal Cannula 2.0 11/15/16 16:19 Nasal Cannula 2.0 11/15/16 15:14 80 18 92 Nasal Cannula 2.0 Physical Exam Comments: General Appearance: WD/WN, no apparent distress Neck: supple, no adenopathy, thyroid normal Respiratory/Chest: chest non-tender, lungs clear, normal breath sounds Cardiovascular: regular rate, rhythm, no edema, no gallop Abdomen: normal bowel sounds, non tender Extremities: + pertinent finding (erythema noted in b/l lower extremities from knees to ankles. no longer ttp.) Lymphatic: no adenopathy Laboratory Results Last 24 Hours Test 11/15/16 16:36 11/15/16 20:26 11/15/16 23:48 11/16/16 03:47 Bedside Glucose 135 mg/dl 130 mg/dl 211 mg/dl 181 mg/dl Test 11/16/16 06:58 11/16/16 07:34 11/16/16 11:03 White Blood Count 12.68 K/uL Red Blood Count 3.26 M/uL Hemoglobin 10.2 g/dL Hematocrit 34.8 % Mean Corpuscular Volume 106.7 fL Mean Corpuscular Hemoglobin 31.3 pg Mean Corpuscular Hemoglobin Concent 29.3 g/dl Platelet Count 191 K/uL Mean Platelet Volume 10.9 fL Neutrophils (%) (Auto) 82.3 % Lymphocytes (%) (Auto) 6.7 % Monocytes (%) (Auto) 9.1 % Eosinophils (%) (Auto) 0.2 % Basophils (%) (Auto) 0.1 % Neutrophils # (Auto) 10.44 K/uL Lymphocytes # (Auto) 0.85 K/uL Monocytes # (Auto) 1.15 K/uL Eosinophils # (Auto) 0.03 K/uL Basophils # (Auto) 0.01 K/uL RDW Standard Deviation 87.3 fL RDW Coefficient of Variation 22.6 % Immature Granulocyte % (Auto) 1.6 % Immature Granulocyte # (Auto) 0.20 K/uL Nucleated RBC Absolute Count (auto) 0.72 K/uL Nucleated Red Blood Cells % 5.7 % Polychromasia 1+ Anisocytosis PRESENT Macrocytosis PRESENT Sodium Level 134 mmol/L Potassium Level 5.0 mmol/L Chloride Level 104 mmol/L Carbon Dioxide Level 21 mmol/L Anion Gap 9.0 mmol/L Blood Urea Nitrogen 40 mg/dl Creatinine 6.20 mg/dl Est Creatinine Clear Calc Drug Dose 13.6 ml/min Estimated GFR () 7.7 Estimated GFR (Non- 6.6 BUN/Creatinine Ratio 6.4 Random Glucose 158 mg/dl Calcium Level 8.3 mg/dl Bedside Glucose 150 mg/dl 163 mg/dl Assessment and Plan (1) Positive blood culture Assessment & Plan: likely contaminant, Blood cultures negative (2) Cellulitis of leg Assessment & Plan: continue vanco for 7 days, then transition back to suppressive po doxy. no new ID recs. elevated legs. On day 5 of antibiotic. (started late evening thursday) Acute and chronic hypercarbic respiratory failure treated with O2 via BiPAP, IVP Bicarb, and Emergent HD Acute presentation is resolved Is on BIPAP at night. Patient currently has a diagnosis of COPD but unsure if this is the case given no PFT are in the chart, will obtain one as an outpatient. This is also likely complicated by her large BMI over 50 and large neck circumference. Pulmonary signed off case. Recommended trach but patient refused. ESRD on dialysis Manage by nephrology COPD excaerbation likely with celluilitis Patient is on vanco and zosyn day 3. ID on board Pulmonary does not believe that the x-ray finding is likley atelectasis and not pneumonia. Chronic Diastolic CHF as noted on 2-d echo. Diabetes type 2 section HBA1C was 5.9. It appears controlled. will continue Insulin sliding scale. dvt proph:Heparin subq GI prophylaxis: continue home PPI Note for following hospitalist team: patient requires 7 days of vancomycin. Thursday patient will have 7 days of treatment ID is on the case. Continued [facility] stay due to: ambulation difficulties, other (Reqies iv antibiotics, recovering from copd exacerbation) Discharge planning: uncertain
[2016-11-16 15:08] VITALS: PULSE 86; O2SAT 93
[2016-11-16 19:04] VITALS: PULSE 85; O2SAT 93
[2016-11-16] MEDS: KETOTIFEN FUMARATE (ZADITOR) 0.025% 5 ML BTL OPB SCH (20:42)
[2016-11-17] VITALS (11 sets, daily range): BP systolic 95–125; BP diastolic 45–71; PULSE 78–88; TEMP 36.4–36.8; O2SAT 91–100
[2016-11-17] MEDS: INSULIN ASPART 100 UNITS/ML 3 ML PEN SC SCH ×5 (04:22→21:17)
[2016-11-17] MEDS: CALCIUM ACETATE 667MG GELCAP PO SCH ×4 (07:05→21:11)
[2016-11-17 07:11] LABS: BASO % 0.2 %; BASO ABS # 0.02 K/uL (0-0.2); EOS % 0.8 %; HEMATOCRIT 33.7 % (37-47); IG% 1.4 %; LYMPH % 8.7 %; LYMPH ABS # 0.97 K/uL (1.2-3.4); MEAN CELL VOLUME 105.6 fL (80-100); MEAN CORPUSCULAR HEMOGLOBIN 32.6 pg (25-34); MEAN CORPUSCULAR HGB CONC 30.9 g/dl (32-36); MEAN PLATELET VOLUME 10.4 fL (7.4-10.4); MONO % 12.5 %; NEUT % 76.4 %; PLATELET COUNT 185 K/uL (130-400); RED BLOOD COUNT 3.19 M/uL (4.2-5.4); WHITE BLOOD COUNT 11.21 K/uL (4.8-10.8)
[2016-11-17] MEDS: ALBUT/IPRATROP 3MG/0.5MG NEB 3 ML VIAL INH SCH ×4 (07:16→19:04)
[2016-11-17 07:40] LABS: CREATININE 8.6 mg/dl (0.60-1.20)
[2016-11-17 07:52] LABS: ANISOCYTOSIS PRESENT; COMPLETE YES; HYPERSEGMENTED POLYS 1+; POLYCHROMASIA 1+
[2016-11-17] MEDS: FLUTICASONE/SALMETEROL (ADVAIR) 500/50 INH 14 PUFF INH SCH ×2 (08:10→20:46)
[2016-11-17] MEDS: NEPHROCAPS PO SCH (08:11)
[2016-11-17] MEDS: TIOTROPIUM BROMIDE 5 PUFF/90 MCG INH INH SCH (08:11)
[2016-11-17] MEDS: CHOLECALCIFEROL 1000 INTER.UNIT TAB PO SCH (08:11)
[2016-11-17] MEDS: PREGABALIN 50 MG CAP PO SCH (08:12)
[2016-11-17] MEDS: ASCORBIC ACID 500 MG TAB PO SCH (08:12)
[2016-11-17] MEDS: ATORVASTATIN 40 MG TAB PO SCH (08:12)
[2016-11-17] MEDS: FAMOTIDINE 20 MG TAB PO SCH (08:12)
[2016-11-17] MEDS: ALLOPURINOL 100 MG TAB PO SCH (08:12)
[2016-11-17] MEDS: PYRIDOXINE HCL 50 MG TAB PO SCH (08:12)
[2016-11-17] MEDS: HYDROCODONE/ACETAMOPHEN 5/325MG TAB PO PRN (08:12)
[2016-11-17] MEDS: TOCOPHERYL, DL-ALPHA 400 INTER.UNIT CAP PO SCH (08:12)
[2016-11-17] MEDS: KETOTIFEN FUMARATE (ZADITOR) 0.025% 5 ML BTL OPB SCH ×2 (08:13→20:47)
[2016-11-17] MEDS: PANTOprazole SOD 40 MG TAB PO SCH (08:13)
[2016-11-17] MEDS: SILVER SULFADIAZINE 1% CR 50 GM JAR EXT SCH (08:13)
[2016-11-17] MEDS: CEROVITE ADV FORMULA TAB PO SCH (08:13)
[2016-11-17] MEDS: METOPROLOL SUCC 50MG EXT REL TAB PO SCH (08:13)
[2016-11-17] MEDS: HEPARIN SOD 5000 UNIT/0.5 ML CARP SQ SCH ×2 (08:21→20:50)
[2016-11-17] MEDS: INSULIN GLARGINE SC SCH ×2 (08:21→21:17)
--- NOTE | 2016-11-17 09:48 | Nephrology Progress Note ---
Nephrology Progress Note Date of Service Nov 17, 2016. Chief Complaint Follow-up for end-stage renal disease. Subjective Jazmin was seen and examined this morning. She has been feeling well, blood pressure, heart rate stable. Denies any chest pain, shortness of breath, dizziness or lightheadedness. Review of Systems A complete review of systems was performed. Pertinent positives are noted above. All other systems are negative. Vital Signs Last 8 Hrs Date Time Temp Pulse Resp B/P (MAP) Pulse Ox O2 Delivery O2 Flow Rate FiO2 11/17/16 08:00 95 Nasal Cannula 2.0 11/17/16 07:16 84 18 91 Nasal Cannula 2.0 11/17/16 07:15 36.6 81 16 125/71 (89) 95 Nasal Cannula 2.0 Last Recorded Weight Weight (Kilograms): 147.300 Physical Exam GENERAL: Middle-aged female AAA x 3, morbidly obese, not in any distress. NECK: Supple, no JVD. RESPIRATORY: Normal breathing efforts, no accessory muscle use, clear to auscultation bilaterally, no wheezes or rales. CARDIOVASCULAR: S1, S2 normal, rate rhythm regular. EXTREMITY: Edema, erythema and warmth of bilateral lower extremity with superficial skin break on the right lower extremity NEURO: speech fluent. PSYCHIATRY: Normal mood and judgment Family History Cancer Diabetes mellitus Gallbladder disease Heart disease Lung disease Negative for CKD / ESRD Social History Smoking Status: Former smoker Drug Use: none Marital Status: Housing Status: lives with family Occupation: unemployed . Lives at home. Former smoker Laboratory Results Past 24 Hours 11/17/16 06:55 Red Blood Count 3.19, Mean Corpuscular Volume 105.6, Mean Corpuscular Hemoglobin 32.6, Mean Corpuscular Hemoglobin Concent 30.9, Mean Platelet Volume 10.4, Neutrophils (%) (Auto) 76.4, Lymphocytes (%) (Auto) 8.7, Monocytes (%) ( Auto) 12.5, Eosinophils (%) (Auto) 0.8, Basophils (%) (Auto) 0.2, Neutrophils # (Auto) 8.57, Lymphocytes # (Auto) 0.97, Monocytes # (Auto) 1.40, Eosinophils # ( Auto) 0.09, Basophils # (Auto) 0.02 11/17/16 06:55 Test 11/16/16 11:03 11/16/16 16:39 11/16/16 19:59 11/16/16 23:55 Bedside Glucose 163 mg/dl (70-90) 159 mg/dl (70-90) 192 mg/dl (70-90) 189 mg/dl (70-90) Test 11/17/16 04:19 11/17/16 06:55 11/17/16 07:50 Bedside Glucose 174 mg/dl (70-90) 157 mg/dl (70-90) White Blood Count 11.21 K/uL (4.8-10.8) Red Blood Count 3.19 M/uL (4.2-5.4) Hemoglobin 10.4 g/dL (12.0-16.0) Hematocrit 33.7 % (37-47) Mean Corpuscular Volume 105.6 fL (80-100) Mean Corpuscular Hemoglobin 32.6 pg (25-34) Mean Corpuscular Hemoglobin Concent 30.9 g/dl (32-36) Platelet Count 185 K/uL (130-400) Mean Platelet Volume 10.4 fL (7.4-10.4) Neutrophils (%) (Auto) 76.4 % Lymphocytes (%) (Auto) 8.7 % Monocytes (%) (Auto) 12.5 % Eosinophils (%) (Auto) 0.8 % Basophils (%) (Auto) 0.2 % Neutrophils # (Auto) 8.57 K/uL (1.4-6.5) Lymphocytes # (Auto) 0.97 K/uL (1.2-3.4) Monocytes # (Auto) 1.40 K/uL (0.11-0.59) Eosinophils # (Auto) 0.09 K/uL (0-0.5) Basophils # (Auto) 0.02 K/uL (0-0.2) RDW Standard Deviation 86.5 fL (36.4-46.3) RDW Coefficient of Variation 22.5 % (11.5-14.5) Immature Granulocyte % (Auto) 1.4 % Immature Granulocyte # (Auto) 0.16 K/uL (0.00-0.02) Nucleated RBC Absolute Count (auto) 0.64 K/uL (0-0) Nucleated Red Blood Cells % 5.8 % Hypersegmented Polys 1+ Polychromasia 1+ Anisocytosis PRESENT Macrocytosis PRESENT Est Creatinine Clear Calc Drug Dose 9.8 ml/min Estimated GFR () 5.2 Estimated GFR (Non- 4.5 Allergies Coded Allergies: Daptomycin (Verified Allergy, Mild, HIVES, 11/11/16) itching Iodine (Verified Allergy, Unknown, 11/11/16) Shellfish (Verified Allergy, Unknown, 11/11/16) Sulfamethoxazole w/Trimethoprim (Verified Allergy, Unknown, RASH, 11/11/16) Codeine (Verified Adverse Reaction, Unknown, NAUSEA, 11/11/16) has tolerated morphine Uncoded Allergies: kristina wipes (Allergy, Severe, red rash, excoriation, 09/19/16) comfort baths (Adverse Reaction, Severe, rash, "breaks out all over", ) Medications Current Inpatient Medications Medications (Trade) Dose Ordered Sig/Duyen Route Start Time Stop Time Status Last Admin Dose Admin Vancomycin HCl (Consult) 1 ea UD N/A 11/11/16 16:25 12/11/16 16:24 Albuterol/ Ipratropium (Duoneb) 3 ml QIDR INH 11/11/16 16:00 12/11/16 15:59 11/17/16 07:16 3 ML Allopurinol (Zyloprim Tab) 100 mg DAILY PO 11/12/16 09:00 12/12/16 08:59 11/17/16 08:12 100 MG Atorvastatin Calcium (Lipitor Tab) 40 mg DAILY PO 11/12/16 09:00 12/12/16 08:59 11/17/16 08:12 40 MG Vitamin B Complex/ Vit C/Folic Acid (Nephrocaps) 1 cap QAM PO 11/12/16 09:00 12/12/16 08:59 11/17/16 08:11 1 CAP Calcium Acetate (Phoslo Cap) 667 mg ACHS PO 11/11/16 16:00 12/11/16 15:59 11/17/16 07:05 667 MG Cholecalciferol (Vitamin D Tab) 1,000 inter.unit DAILY PO 11/12/16 09:00 12/12/16 08:59 11/17/16 08:11 1,000 INTER.UNIT Famotidine (Pepcid Tab) 20 mg DAILY PO 11/12/16 09:00 12/12/16 08:59 11/17/16 08:12 20 MG Salmeterol Xinafoate/ Fluticasone (Advair Diskus 500/50 Inh) 1 puff BID INH 11/11/16 21:00 12/11/16 20:59 11/17/16 08:10 1 PUFF Acetaminophen/ Hydrocodone Bitart ([place] 5/325 Tab) 1 tab Q6H PRN PO 11/11/16 15:30 11/25/16 15:29 11/17/16 08:12 1 TAB Metoprolol Succinate (Toprol Xl Tab) 150 mg SuMoWeFr@0900 PO 11/12/16 09:00 12/12/16 08:59 11/17/16 08:13 150 MG Multivitamins/ Minerals (Multivitamin W/ Minerals Tab) 1 tab DAILY PO 11/12/16 09:00 12/12/16 08:59 11/17/16 08:13 1 TAB Pantoprazole Sodium (Protonix Tab) 40 mg DAILY PO 11/12/16 09:00 12/12/16 08:59 11/17/16 08:13 40 MG Pyridoxine HCl (Vitamin B-6 Tab) 200 mg DAILY PO 11/12/16 09:00 12/12/16 08:59 11/17/16 08:12 200 MG Silver Sulfadiazine (Silvadene 1% Crm 50GM Jar) 1 appln DAILY EXT 11/12/16 09:00 12/12/16 08:59 11/17/16 08:13 1 APPLN Tiotropium [place] (Spiriva Handihaler Inhaler) 1 puff DAILY INH 11/12/16 09:00 12/12/16 08:59 11/17/16 08:11 1 PUFF Ascorbic Acid (Vitamin C Tab) 1,000 mg DAILY PO 11/12/16 09:00 12/12/16 08:59 11/17/16 08:12 1,000 MG ma-Wqyev-Eieosbstmc Acetate (Vitamin E Cap) 800 interunit DAILY PO 11/12/16 09:00 12/12/16 08:59 11/17/16 08:12 800 INTERUNIT Miscellaneous Information (Consult Glycemic Management Pharmacy) 1 ea UD PRN N/A 11/11/16 16:00 12/11/16 15:59 Heparin Sodium (Porcine) (Heparin Sq 5000 Unit/0.5ml) 5,000 unit Q12 SQ 11/11/16 21:00 12/11/16 20:59 11/17/16 08:21 5,000 UNIT Hydromorphone HCl (Dilaudid Inj) 1 mg Q8H PRN IV 11/11/16 15:30 11/25/16 15:29 11/11/16 17:27 1 MG Pregabalin (Lyrica Cap) 50 mg DAILY PO 11/12/16 09:00 12/12/16 08:59 11/17/16 08:12 50 MG Miconazole Nitrate (Desenex Powder) 1 appln PRN PRN EXT 11/11/16 17:15 12/11/16 17:14 11/16/16 09:10 1 APPLN Doxycycline Hyclate (Vibramycin Cap) 100 mg BID PO 11/11/16 21:00 12/12/16 20:59 Future hold 11/14/16 20:45 100 MG Insulin Aspart (novoLOG ASPART) SLIDING SCALE ACHS SC 11/12/16 11:00 12/12/16 10:59 11/17/16 08:21 37 UNITS Glucose (Glucose 40% Gel) 15-30 GRAMS 15 GRAMS... UD PRN PO 11/12/16 14:15 12/12/16 14:14 Glucose (Glucose Chew Tab) 4-8 Tablets 4 Tabl... UD PRN PO 11/12/16 14:15 12/12/16 14:14 Dextrose (Dextrose 50% 50ML Syringe) 25-50ML OF 50% DW IV FOR... UD PRN IV 11/12/16 14:15 12/12/16 14:14 Glucagon (Glucagon Inj) 1 mg UD PRN SQ 11/12/16 14:15 12/12/16 14:14 Insulin Aspart (novoLOG ASPART) SLIDING SCALE 0000,0400 SC 11/13/16 00:00 12/13/16 00:00 11/17/16 04:22 7 UNITS Insulin Glargine (Lantus Vial) 95 units BID SC 11/16/16 08:30 12/16/16 08:29 11/17/16 08:21 95 UNITS Ketotifen Fumarate (Zaditor 0.025% Op Soln) 1 drops BID OPB 11/16/16 20:13 12/16/16 20:12 11/17/16 08:13 1 DROPS Impression (1) ESRD on hemodialysis (2) Hypercapnic respiratory failure (3) Obesity hypoventilation syndrome (4) Cellulitis of leg Mrs. Gaytan has recurrent hypercapnic respiratory failure despite adherence to NIPPV at home. Her CXR is concerning for a RLL infiltrate. Patient has dry cracked skin on her feet and bilateral LE cellulitis. She has ESRD due to cardiorenal syndrome and requires TTS HD (4.5hr F-180NR Qb300 Qd A1.5 3K 2.5 Ca EDW 137.7 kg Heparin 2000 load w/ 1000 units hourly). She has not yet HD today. BUN is markedly elevated but other electrolytes including serum bicarbonate are currently acceptable. Recommendations -- currently BP and volume status stable. Plan for HD tomorrow, will adjust time depending on decision about transposition. -- IJ THC placed 07/25/16. L upper arm AVF created 08/19/[address] Thapa. AVF has + bruit but venous limb is too deep for use. Tentative plan for transposition on 11/18/2016 -- Will monitor H&H and provide SAMARA as needed to keep Hgb 10 - 11 -- continue on Nephrocaps and phosphate binder with meal. Will follow
--- NOTE | 2016-11-17 10:23 | Progress Note ---
Progress Note Date of Service: Nov 17, 2016. Subjective Patient with no complaints. She is concerned about her dialysis schedule due to surgery tomorrow Problem List Medical Problems: (1) Acute respiratory failure with hypoxia and hypercarbia Status: Acute (2) Altered mental status Status: Acute (3) Anasarca Status: Acute (4) Anasarca Status: Acute (5) Bilateral cellulitis of lower leg Status: Acute (6) Bilateral lower leg cellulitis Status: Acute (7) Cellulitis of leg Status: Acute (8) Change in mental status Status: Acute (9) Chronic renal failure Status: Acute (10) CO2 retention Status: Acute (11) Contusion of multiple sites Status: Acute (12) Dehydration Status: Acute (13) Dyspnea on exertion Status: Acute (14) Fall Status: Acute (15) Fall Status: Acute (16) Fever Status: Acute (17) Fever Status: Acute (18) Generalized weakness Status: Acute (19) Hypercarbia Status: Acute (20) Hyperkalemia Status: Acute (21) Hypokalemia Status: Acute (22) Hypoventilation Status: Acute (23) Hypoxemia Status: Acute (24) Hypoxia Status: Acute (25) Lumbar strain Status: Acute (26) Metabolic acidosis Status: Acute (27) Nail avulsion of toe Status: Acute (28) Obesity Status: Acute (29) Positive blood culture Status: Acute (30) Respiratory acidosis Status: Acute (31) Respiratory failure Status: Acute (32) Weakness Status: Acute (33) Weight gain Status: Acute (34) Wrist pain Status: Acute Objective Vital Signs Vital Signs Past 12 Hours Date Time Temp Pulse Resp B/P (MAP) Pulse Ox O2 Delivery O2 Flow Rate FiO2 11/17/16 08:00 95 Nasal Cannula 2.0 11/17/16 07:16 84 18 91 Nasal Cannula 2.0 11/17/16 07:15 36.6 81 16 125/71 (89) 95 Nasal Cannula 2.0 11/17/16 00:30 BiPAP 11/17/16 00:12 88 97 35 11/17/16 00:04 36.8 87 20 123/67 (85) 95 Nasal Cannula 2.0 Exam VSS Afebrile Awake and alert Fistula with good thrill Laboratory and Microbiology Results Past 24 Hours Test 11/16/16 11:03 11/16/16 16:39 11/16/16 19:59 11/16/16 23:55 Range/Units Bedside Glucose 163 159 192 189 70-90 mg/dl Test 11/17/16 04:19 11/17/16 06:55 11/17/16 07:50 Range/Units Bedside Glucose 174 157 70-90 mg/dl White Blood Count 11.21 4.8-10.8 K/uL Red Blood Count 3.19 4.2-5.4 M/uL Hemoglobin 10.4 12.0-16.0 g/dL Hematocrit 33.7 37-47 % Mean Corpuscular Volume 105.6 80-100 fL Mean Corpuscular Hemoglobin 32.6 25-34 pg Mean Corpuscular Hemoglobin Concent 30.9 32-36 g/dl Platelet Count 185 130-400 K/uL Mean Platelet Volume 10.4 7.4-10.4 fL Neutrophils (%) (Auto) 76.4 % Lymphocytes (%) (Auto) 8.7 % Monocytes (%) (Auto) 12.5 % Eosinophils (%) (Auto) 0.8 % Basophils (%) (Auto) 0.2 % Neutrophils # (Auto) 8.57 1.4-6.5 K/uL Lymphocytes # (Auto) 0.97 1.2-3.4 K/uL Monocytes # (Auto) 1.40 0.11-0.59 K/uL Eosinophils # (Auto) 0.09 0-0.5 K/uL Basophils # (Auto) 0.02 0-0.2 K/uL RDW Standard Deviation 86.5 36.4-46.3 fL RDW Coefficient of Variation 22.5 11.5-14.5 % Immature Granulocyte % (Auto) 1.4 % Immature Granulocyte # (Auto) 0.16 0.00-0.02 K/uL Nucleated RBC Absolute Count (auto) 0.64 0-0 K/uL Nucleated Red Blood Cells % 5.8 % Hypersegmented Polys 1+ Polychromasia 1+ Anisocytosis PRESENT Macrocytosis PRESENT Creatinine 8.60 0.60-1.20 mg/dl Est Creatinine Clear Calc Drug Dose 9.8 ml/min Estimated GFR () 5.2 Estimated GFR (Non- 4.5 Imp: Functioning left arm av fistula Plan: The left arm fistula goes deep in the mid and upper arm. This will need to be transposed. The fistula itself is of good caliber. Will plan on transposition tomorrow afternoon. I have discussed the risks options and benefits of the procedure with the patient. The patient understands the risks options and benefits and agrees to the procedure.
--- NOTE | 2016-11-17 10:43 | Hospitalist Progress Note ---
Hospitalist Progress Note Date of Service Nov 17, 2016. Subjective Pt evaluation today including: conversation w/ patient, physical exam, chart review, lab review, review of studies, review of inpatient medication list Patient seen and evaluated. No acute events overnight. Reporting baseline respiratory status with chronic O2 and night BiPAP. Due for transposition of AV fistula tomorrow by Dr. Thapa Feels that legs are not as erythematous and swelling about baseline. Denies any further needs or complaints Is switching dialysis schedules and will move to a [facility] routine Constitutional: No fever, No chills Respiratory: No shortness of breath Cardiovascular: No chest pain, No palpitations Abdomen: No pain, No nausea, No vomiting, No diarrhea, No constipation Musculoskeletal: + swelling (bilateral lower extremities - improving), No calf pain Female : No dysuria Heme: No abnormal bleeding/bruising Medications Current Inpatient Medications Medications (Trade) Dose Ordered Sig/Duyen Route Start Time Stop Time Status Last Admin Dose Admin Vancomycin HCl (Consult) 1 ea UD N/A 11/11/16 16:25 12/11/16 16:24 Albuterol/ Ipratropium (Duoneb) 3 ml QIDR INH 11/11/16 16:00 12/11/16 15:59 11/17/16 07:16 3 ML Allopurinol (Zyloprim Tab) 100 mg DAILY PO 11/12/16 09:00 12/12/16 08:59 11/17/16 08:12 100 MG Atorvastatin Calcium (Lipitor Tab) 40 mg DAILY PO 11/12/16 09:00 12/12/16 08:59 11/17/16 08:12 40 MG Vitamin B Complex/ Vit C/Folic Acid (Nephrocaps) 1 cap QAM PO 11/12/16 09:00 12/12/16 08:59 11/17/16 08:11 1 CAP Calcium Acetate (Phoslo Cap) 667 mg ACHS PO 11/11/16 16:00 12/11/16 15:59 11/17/16 07:05 667 MG Cholecalciferol (Vitamin D Tab) 1,000 inter.unit DAILY PO 11/12/16 09:00 12/12/16 08:59 11/17/16 08:11 1,000 INTER.UNIT Famotidine (Pepcid Tab) 20 mg DAILY PO 11/12/16 09:00 12/12/16 08:59 11/17/16 08:12 20 MG Salmeterol Xinafoate/ Fluticasone (Advair Diskus 500/50 Inh) 1 puff BID INH 11/11/16 21:00 12/11/16 20:59 11/17/16 08:10 1 PUFF Acetaminophen/ Hydrocodone Bitart ([place] 5/325 Tab) 1 tab Q6H PRN PO 11/11/16 15:30 11/25/16 15:29 11/17/16 08:12 1 TAB Metoprolol Succinate (Toprol Xl Tab) 150 mg SuMoWeFr@0900 PO 11/12/16 09:00 12/12/16 08:59 11/17/16 08:13 150 MG Multivitamins/ Minerals (Multivitamin W/ Minerals Tab) 1 tab DAILY PO 11/12/16 09:00 12/12/16 08:59 11/17/16 08:13 1 TAB Pantoprazole Sodium (Protonix Tab) 40 mg DAILY PO 11/12/16 09:00 12/12/16 08:59 11/17/16 08:13 40 MG Pyridoxine HCl (Vitamin B-6 Tab) 200 mg DAILY PO 11/12/16 09:00 12/12/16 08:59 11/17/16 08:12 200 MG Silver Sulfadiazine (Silvadene 1% Crm 50GM Jar) 1 appln DAILY EXT 11/12/16 09:00 12/12/16 08:59 11/17/16 08:13 1 APPLN Tiotropium [place] (Spiriva Handihaler Inhaler) 1 puff DAILY INH 11/12/16 09:00 12/12/16 08:59 11/17/16 08:11 1 PUFF Ascorbic Acid (Vitamin C Tab) 1,000 mg DAILY PO 11/12/16 09:00 12/12/16 08:59 11/17/16 08:12 1,000 MG rb-Nhmgm-Jfttwhxavf Acetate (Vitamin E Cap) 800 interunit DAILY PO 11/12/16 09:00 12/12/16 08:59 11/17/16 08:12 800 INTERUNIT Miscellaneous Information (Consult Glycemic Management Pharmacy) 1 ea UD PRN N/A 11/11/16 16:00 12/11/16 15:59 Heparin Sodium (Porcine) (Heparin Sq 5000 Unit/0.5ml) 5,000 unit Q12 SQ 11/11/16 21:00 12/11/16 20:59 11/17/16 08:21 5,000 UNIT Hydromorphone HCl (Dilaudid Inj) 1 mg Q8H PRN IV 11/11/16 15:30 11/25/16 15:29 11/11/16 17:27 1 MG Pregabalin (Lyrica Cap) 50 mg DAILY PO 11/12/16 09:00 12/12/16 08:59 11/17/16 08:12 50 MG Miconazole Nitrate (Desenex Powder) 1 appln PRN PRN EXT 11/11/16 17:15 12/11/16 17:14 11/16/16 09:10 1 APPLN Doxycycline Hyclate (Vibramycin Cap) 100 mg BID PO 11/11/16 21:00 12/12/16 20:59 Future hold 11/14/16 20:45 100 MG Insulin Aspart (novoLOG ASPART) SLIDING SCALE ACHS SC 11/12/16 11:00 12/12/16 10:59 11/17/16 08:21 37 UNITS Glucose (Glucose 40% Gel) 15-30 GRAMS 15 GRAMS... UD PRN PO 11/12/16 14:15 12/12/16 14:14 Glucose (Glucose Chew Tab) 4-8 Tablets 4 Tabl... UD PRN PO 11/12/16 14:15 12/12/16 14:14 Dextrose (Dextrose 50% 50ML Syringe) 25-50ML OF 50% DW IV FOR... UD PRN IV 11/12/16 14:15 12/12/16 14:14 Glucagon (Glucagon Inj) 1 mg UD PRN SQ 11/12/16 14:15 12/12/16 14:14 Insulin Aspart (novoLOG ASPART) SLIDING SCALE 0000,0400 SC 11/13/16 00:00 12/13/16 00:00 11/17/16 04:22 7 UNITS Insulin Glargine (Lantus Vial) 95 units BID SC 11/16/16 08:30 12/16/16 08:29 11/17/16 08:21 95 UNITS Ketotifen Fumarate (Zaditor 0.025% Op Soln) 1 drops BID OPB 11/16/16 20:13 12/16/16 20:12 11/17/16 08:13 1 DROPS Cefazolin Sodium 65 ml @ 100 mls/hr PREOP IV 11/18/16 06:00 11/19/16 05:59 Objective Vital Signs Date Time Temp Pulse Resp B/P (MAP) Pulse Ox O2 Delivery O2 Flow Rate FiO2 11/17/16 08:00 95 Nasal Cannula 2.0 11/17/16 07:16 84 18 91 Nasal Cannula 2.0 11/17/16 07:15 36.6 81 16 125/71 (89) 95 Nasal Cannula 2.0 11/17/16 00:30 BiPAP 11/17/16 00:12 88 97 35 11/17/16 00:04 36.8 87 20 123/67 (85) 95 Nasal Cannula 2.0 11/16/16 20:00 Nasal Cannula 2.0 11/16/16 19:04 85 18 93 Nasal Cannula 2.0 11/16/16 16:12 Nasal Cannula 2.0 11/16/16 15:08 86 18 93 Nasal Cannula 2.0 11/16/16 14:45 36.9 85 22 110/64 (79) 92 Room Air 11/16/16 11:26 92 18 94 Nasal Cannula 2.0 Physical Exam General Appearance: no apparent distress, + obese (morbid) Eyes: sclerae normal ENT: hearing grossly normal Neck: + pertinent finding (large neck due to body habitus) Respiratory/Chest: lungs clear, no respiratory distress, no accessory muscle use, + pertinent finding (poor inspiratory airflow without wheezing) Cardiovascular: regular rate, rhythm, no gallop, no murmur Abdomen: normal bowel sounds, non tender, soft Extremities: no calf tenderness, + pertinent finding (bilateral - hard skin with edema, no current weeping, keratotic skin, dry/scaling) 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: alert, oriented x 3 Skin: warm/dry Laboratory Results Last 24 Hours Test 11/16/16 11:03 11/16/16 16:39 11/16/16 19:59 11/16/16 23:55 Bedside Glucose 163 mg/dl 159 mg/dl 192 mg/dl 189 mg/dl Test 11/17/16 04:19 11/17/16 06:55 11/17/16 07:50 Bedside Glucose 174 mg/dl 157 mg/dl White Blood Count 11.21 K/uL Red Blood Count 3.19 M/uL Hemoglobin 10.4 g/dL Hematocrit 33.7 % Mean Corpuscular Volume 105.6 fL Mean Corpuscular Hemoglobin 32.6 pg Mean Corpuscular Hemoglobin Concent 30.9 g/dl Platelet Count 185 K/uL Mean Platelet Volume 10.4 fL Neutrophils (%) (Auto) 76.4 % Lymphocytes (%) (Auto) 8.7 % Monocytes (%) (Auto) 12.5 % Eosinophils (%) (Auto) 0.8 % Basophils (%) (Auto) 0.2 % Neutrophils # (Auto) 8.57 K/uL Lymphocytes # (Auto) 0.97 K/uL Monocytes # (Auto) 1.40 K/uL Eosinophils # (Auto) 0.09 K/uL Basophils # (Auto) 0.02 K/uL RDW Standard Deviation 86.5 fL RDW Coefficient of Variation 22.5 % Immature Granulocyte % (Auto) 1.4 % Immature Granulocyte # (Auto) 0.16 K/uL Nucleated RBC Absolute Count (auto) 0.64 K/uL Nucleated Red Blood Cells % 5.8 % Hypersegmented Polys 1+ Polychromasia 1+ Anisocytosis PRESENT Macrocytosis PRESENT Creatinine 8.60 mg/dl Est Creatinine Clear Calc Drug Dose 9.8 ml/min Estimated GFR () 5.2 Estimated GFR (Non- 4.5 Assessment and Plan Acute and Chronic Hypercarbic Respiratory Failure with COPD Exacerbation: STABLE - Initial treatment with BiPAP, IV Bicarb, and Emergent HD - At baseline - utilizing BiPAP at night and chronic continuous O2 - Pulmonology followed and S/O - recommendations for trach but patient declined Bilateral Leg Cellulitis: - One positive which is likely contaminant - Likely underlying insufficiency - ID Following - Complete 7 days IV Vancomycin (Thursday last ) with conversion to chronic Doxycycline ESRD on Dialysis: - Plans to convert to MWF routine - Nephrology following - appreciate assistance with dialysis - Vascular following - plan for fistula transposition 11/18 T2DM: A1c 5.9 - Glycemic management DVT Prophylaxis: Heparin SC BID Disposition: - Fistula transposition tomorrow by Dr. Thapa - Hopeful D/C Thursday Continued [facility] stay due to: multiple IV medications needed Discharge planning: home with home health
[2016-11-18] VITALS (31 sets, daily range): BP systolic 80–134; BP diastolic 28–75; PULSE 80–110; TEMP 36.5–36.9; O2SAT 90–100
[2016-11-18] MEDS: INSULIN ASPART 100 UNITS/ML 3 ML PEN SC SCH ×6 (04:34→21:45)
[2016-11-18] MEDS: CEFAZOLIN 3000 MG/65 ML D5W 65 ML IV SCH ×2 (06:00→14:40)
[2016-11-18] MEDS: CALCIUM ACETATE 667MG GELCAP PO SCH ×4 (06:39→21:32)
[2016-11-18] MEDS: ALBUT/IPRATROP 3MG/0.5MG NEB 3 ML VIAL INH SCH ×4 (07:07→19:10)
[2016-11-18] MEDS: DOXYCYCLINE HYCLATE 100 MG CAP PO SCH ×2 (08:00→21:34)
[2016-11-18] MEDS: KETOTIFEN FUMARATE (ZADITOR) 0.025% 5 ML BTL OPB SCH ×2 (08:00→21:33)
[2016-11-18] MEDS: FLUTICASONE/SALMETEROL (ADVAIR) 500/50 INH 14 PUFF INH SCH ×2 (08:00→12:47)
[2016-11-18 08:11] LABS: HEMATOCRIT 34.8 % (37-47); MEAN CELL VOLUME 106.1 fL (80-100); MEAN CORPUSCULAR HGB CONC 30.2 g/dl (32-36); MEAN PLATELET VOLUME 10.3 fL (7.4-10.4); PLATELET COUNT 186 K/uL (130-400); RED BLOOD COUNT 3.28 M/uL (4.2-5.4)
[2016-11-18] MEDS: INSULIN GLARGINE SC SCH ×2 (08:28→21:40)
[2016-11-18 09:00] LABS: BUN/CREATININE RATIO 8.1 (10-20); CALCIUM 8.1 mg/dl (8.5-10.1); POTASSIUM 5.3 mmol/L (3.5-5.1)
[2016-11-18] MEDS: HEPARIN SOD 5000 UNIT/0.5 ML CARP SQ SCH ×2 (09:00→21:41)
[2016-11-18] MEDS: HYDROCODONE/ACETAMOPHEN 5/325MG TAB PO PRN ×2 (09:40→18:03)
--- NOTE | 2016-11-18 11:31 | Pharmacy Progress Note ---
Glycemic Control Progress Note Date of Service Nov 18, 2016. Scope Glycemic Pharmacist consulted for glycemic control to write orders per LTAC, located within [facility] inpatient glycemic control protocol. Objective Accuchecks BSG (last 24hrs): Test 11/17/16 11:25 11/17/16 16:23 11/17/16 20:27 11/18/16 00:28 Bedside Glucose 127 mg/dl (70-90) 104 mg/dl (70-90) 135 mg/dl (70-90) 122 mg/dl (70-90) Test 11/18/16 04:31 11/18/16 07:39 Bedside Glucose 143 mg/dl (70-90) Random Glucose 159 mg/dl (70-99) HbA1c: Test 11/12/16 05:49 Hemoglobin A1c 5.9 % (4.5-5.6) H Recent Pertinent Medications The patient is currently receiving: * Basal insulin: Lantus 95 units SQ qAM + 85 units SQ qPM * Correctional Insulin: Novolog Correction per scale ACHS Goal Range: Low 110 mg/dL - High 140 mg/dL Correction Factor: 6 mg/dL/unit * Prandial insulin: Per carb ratio of 1 unit per 2 grams CHO consumed Outpatient Anti-Diabetic Meds Basal Insulin Bolus Insulin Assessment & Plan ASSESSMENT: * See previous notes for more background info, in short: * Pt receiving SQ basal bolus insulin regimen for hyperglycemia secondary to baseline DM (outpatient regimen on hold),stress/infection * Pt was on Prednisone 50 mg PO daily - this was stopped after 11/16 dose * Patient is currently receiving an average of 271 units of insulin per day * 180 units of basal insulin * 91 units of prandial/correctional insulin (less PO intake on 11/17) * BSGs ranging 104 - 174 mg/dl over the past 24hrs * Changes needed to insulin regimen: * AM Fasting BSG = 179 mg/dl. This is in slightly above goal range for patient based on inpatient targets and co-morbidities. Basal insulin was changed from 95 units BID to dosing per scale (80-95 units) due to discontinuation of steroids and NPO status. Will likely resume 95 units BID once diet ordered. * Post-prandial BSGs are in range therefore no changes needed to CF/CR. PLAN FOR INPATIENT GLYCEMIC CONTROL: * Continue Lantus per scale (85-90 units) SQ BID * 85 units for BSG less than 140, 90 units for BSG 160 mg/dL or more * Continuing correction factor to 6 mg/dl/unit * Continuing carb ratio to 1 unit per 2 grams CHO consumed * Continuing goal range to Low 110 mg/dL - High 140 mg/dL RECOMMENDATIONS FOR DISCHARGE: * Continue home regimen * Please note that the plan above was derived based on current level of insulin resistance and hospital stress. These recommendations are appropriate for inpatient admission only. Plan of care upon discharge will need to be reassessed to avoid potential outpatient hypo/hyperglycemia. Thank you.
--- NOTE | 2016-11-18 11:56 | Dialysis Progress Note ---
Hemodialysis Note Date of Service Nov 18, 2016. Chief Complaint Follow-up for end-stage renal disease. Subjective Jazmin was seen and examined during HD Rx With her family at bedside . Tolerating well, BP stable. denies CP, leg cramp. She is waiting for procedure this afternoon has been NPO and feeling hungry Review of Systems A complete review of systems was performed. Pertinent positives are noted above. All other systems are negative. Vital Signs Last 8 Hrs Date Time Temp Pulse Resp B/P (MAP) Pulse Ox O2 Delivery O2 Flow Rate FiO2 11/18/16 08:15 89 91/62 11/18/16 08:05 87 129/58 11/18/16 08:00 36.6 91 126/54 (78) 11/18/16 07:10 36.5 85 20 134/63 (86) 94 Nasal Cannula 2.0 11/18/16 07:07 87 18 90 Nasal Cannula 2.0 11/18/16 07:05 36.6 88 18 90/46 (61) 92 2.0 Last Recorded Weight Weight (Kilograms): 149.800 Physical Exam GENERAL: Middle-aged female AAA x 3, morbidly obese, not in any distress. NECK: Supple, no JVD. RESPIRATORY: Normal breathing efforts, no accessory muscle use, clear to auscultation bilaterally, no wheezes or rales. CARDIOVASCULAR: S1, S2 normal, rate rhythm regular. EXTREMITY: Edema, erythema and warmth of bilateral lower extremity with superficial skin break on the right lower extremity NEURO: speech fluent. PSYCHIATRY: Normal mood and judgment Family History Negative for CKD / ESRD Social History Smoking Status: Former smoker Drug Use: none Marital Status: Housing Status: lives with family Occupation: unemployed . Lives at home. Former smoker Laboratory Results Past 24 Hours 11/18/16 07:39 Test 11/17/16 11:25 11/17/16 16:23 11/17/16 20:27 11/18/16 00:28 Bedside Glucose 127 mg/dl (70-90) 104 mg/dl (70-90) 135 mg/dl (70-90) 122 mg/dl (70-90) Test 11/18/16 04:31 11/18/16 07:39 Bedside Glucose 143 mg/dl (70-90) Red Blood Count 3.28 M/uL (4.2-5.4) Mean Corpuscular Volume 106.1 fL (80-100) Mean Corpuscular Hemoglobin 32.0 pg (25-34) Mean Corpuscular Hemoglobin Concent 30.2 g/dl (32-36) RDW Standard Deviation 85.8 fL (36.4-46.3) RDW Coefficient of Variation 22.4 % (11.5-14.5) Mean Platelet Volume 10.3 fL (7.4-10.4) Nucleated RBC Absolute Count (auto) 0.50 K/uL (0-0) Nucleated Red Blood Cells % 4.3 % Allergies Coded Allergies: Daptomycin (Verified Allergy, Intermediate, HIVES/ITCHING, 11/17/16) itching Sulfamethoxazole w/Trimethoprim (Verified Allergy, Intermediate, RASH, ) Iodine (Verified Allergy, Unknown, 11/11/16) Shellfish (Verified Allergy, Unknown, 11/11/16) Codeine (Verified Adverse Reaction, Mild, NAUSEA, 11/17/16) has tolerated morphine Uncoded Allergies: kristina wipes (Allergy, Severe, red rash, excoriation, 09/19/16) comfort baths (Adverse Reaction, Severe, rash, "breaks out all over", ) Medications Current Inpatient Medications Medications (Trade) Dose Ordered Sig/Duyen Route Start Time Stop Time Status Last Admin Dose Admin Vancomycin HCl (Consult) 1 ea UD N/A 11/11/16 16:25 12/11/16 16:24 Albuterol/ Ipratropium (Duoneb) 3 ml QIDR INH 11/11/16 16:00 12/11/16 15:59 11/18/16 07:07 3 ML Allopurinol (Zyloprim Tab) 100 mg DAILY PO 11/12/16 09:00 12/12/16 08:59 11/17/16 08:12 100 MG Atorvastatin Calcium (Lipitor Tab) 40 mg DAILY PO 11/12/16 09:00 12/12/16 08:59 11/17/16 08:12 40 MG Vitamin B Complex/ Vit C/Folic Acid (Nephrocaps) 1 cap QAM PO 11/12/16 09:00 12/12/16 08:59 11/17/16 08:11 1 CAP Calcium Acetate (Phoslo Cap) 667 mg ACHS PO 11/11/16 16:00 12/11/16 15:59 11/18/16 06:39 667 MG Cholecalciferol (Vitamin D Tab) 1,000 inter.unit DAILY PO 11/12/16 09:00 12/12/16 08:59 11/17/16 08:11 1,000 INTER.UNIT Famotidine (Pepcid Tab) 20 mg DAILY PO 11/12/16 09:00 12/12/16 08:59 11/17/16 08:12 20 MG Salmeterol Xinafoate/ Fluticasone (Advair Diskus 500/50 Inh) 1 puff BID INH 11/11/16 21:00 12/11/16 20:59 11/17/16 20:46 1 PUFF Acetaminophen/ Hydrocodone Bitart ([place] 5/325 Tab) 1 tab Q6H PRN PO 11/11/16 15:30 11/25/16 15:29 11/17/16 08:12 1 TAB Metoprolol Succinate (Toprol Xl Tab) 150 mg SuMoWeFr@0900 PO 11/12/16 09:00 12/12/16 08:59 11/17/16 08:13 150 MG Multivitamins/ Minerals (Multivitamin W/ Minerals Tab) 1 tab DAILY PO 11/12/16 09:00 12/12/16 08:59 11/17/16 08:13 1 TAB Pantoprazole Sodium (Protonix Tab) 40 mg DAILY PO 11/12/16 09:00 12/12/16 08:59 11/17/16 08:13 40 MG Pyridoxine HCl (Vitamin B-6 Tab) 200 mg DAILY PO 11/12/16 09:00 12/12/16 08:59 11/17/16 08:12 200 MG Silver Sulfadiazine (Silvadene 1% Crm 50GM Jar) 1 appln DAILY EXT 11/12/16 09:00 12/12/16 08:59 11/17/16 08:13 1 APPLN Tiotropium [place] (Spiriva Handihaler Inhaler) 1 puff DAILY INH 11/12/16 09:00 12/12/16 08:59 11/17/16 08:11 1 PUFF Ascorbic Acid (Vitamin C Tab) 1,000 mg DAILY PO 11/12/16 09:00 12/12/16 08:59 11/17/16 08:12 1,000 MG kc-Kvyak-Jxaxnpodnu Acetate (Vitamin E Cap) 800 interunit DAILY PO 11/12/16 09:00 12/12/16 08:59 11/17/16 08:12 800 INTERUNIT Miscellaneous Information (Consult Glycemic Management Pharmacy) 1 ea UD PRN N/A 11/11/16 16:00 12/11/16 15:59 Heparin Sodium (Porcine) (Heparin Sq 5000 Unit/0.5ml) 5,000 unit Q12 SQ 11/11/16 21:00 12/11/16 20:59 11/17/16 20:50 5,000 UNIT Hydromorphone HCl (Dilaudid Inj) 1 mg Q8H PRN IV 11/11/16 15:30 11/25/16 15:29 11/11/16 17:27 1 MG Pregabalin (Lyrica Cap) 50 mg DAILY PO 11/12/16 09:00 12/12/16 08:59 11/17/16 08:12 50 MG Miconazole Nitrate (Desenex Powder) 1 appln PRN PRN EXT 11/11/16 17:15 12/11/16 17:14 11/16/16 09:10 1 APPLN Doxycycline Hyclate (Vibramycin Cap) 100 mg BID PO 11/11/16 21:00 12/12/16 20:59 Future hold 11/14/16 20:45 100 MG Insulin Aspart (novoLOG ASPART) SLIDING SCALE ACHS SC 11/12/16 11:00 12/12/16 10:59 11/18/16 08:18 7 UNITS Glucose (Glucose 40% Gel) 15-30 GRAMS 15 GRAMS... UD PRN PO 11/12/16 14:15 12/12/16 14:14 Glucose (Glucose Chew Tab) 4-8 Tablets 4 Tabl... UD PRN PO 11/12/16 14:15 12/12/16 14:14 Dextrose (Dextrose 50% 50ML Syringe) 25-50ML OF 50% DW IV FOR... UD PRN IV 11/12/16 14:15 12/12/16 14:14 Glucagon (Glucagon Inj) 1 mg UD PRN SQ 11/12/16 14:15 12/12/16 14:14 Insulin Aspart (novoLOG ASPART) SLIDING SCALE 0000,0400 SC 11/13/16 00:00 12/13/16 00:00 11/18/16 04:34 1 UNITS Ketotifen Fumarate (Zaditor 0.025% Op Soln) 1 drops BID OPB 11/16/16 20:13 12/16/16 20:12 11/17/16 20:47 1 DROPS Cefazolin Sodium 65 ml @ 100 mls/hr PREOP IV 11/18/16 06:00 11/19/16 05:59 Insulin Glargine (Lantus Vial) SEE PROTOCOL TEXT BID SC 11/17/16 20:00 12/17/16 19:59 11/18/16 08:28 85 UNITS Impression (1) ESRD on hemodialysis (2) Hypercapnic respiratory failure (3) Obesity hypoventilation syndrome (4) Cellulitis of leg Mrs. Gaytan has recurrent hypercapnic respiratory failure despite adherence to NIPPV at home. Her CXR is concerning for a RLL infiltrate. Patient has dry cracked skin on her feet and bilateral LE cellulitis. She has ESRD due to cardiorenal syndrome and requires TTS HD (4.5hr F-180NR Qb300 Qd A1.5 3K 2.5 Ca EDW 137.7 kg Heparin 2000 load w/ 1000 units hourly). She has not yet HD today. BUN is markedly elevated but other electrolytes including serum bicarbonate are currently acceptable. Recommendations -- getting dialysis, aim for 3 liters, tolerating ultra filtration, blood pressure stable otherwise asymptomatic, has decent blood flow through tunnel dialysis catheter.. -- IJ THC placed 07/25/16. L upper arm AVF created 08/19/[address] Thapa, plan for transposition this afternoon -- Will monitor H&H and provide SAMARA as needed to keep Hgb 10 - 11 -- continue on Nephrocaps and phosphate binder with meal. --patient's switching to [facility], will be on Thursday, Thursday, Thursday schedule. Will follow
[2016-11-18] MEDS: TIOTROPIUM BROMIDE 5 PUFF/90 MCG INH INH SCH (12:48)
[2016-11-18] MEDS: PREGABALIN 50 MG CAP PO SCH (12:48)
[2016-11-18] MEDS: PANTOprazole SOD 40 MG TAB PO SCH (12:48)
[2016-11-18] MEDS: CEROVITE ADV FORMULA TAB PO SCH (12:48)
[2016-11-18] MEDS: ALLOPURINOL 100 MG TAB PO SCH (12:48)
[2016-11-18] MEDS: ATORVASTATIN 40 MG TAB PO SCH (12:48)
[2016-11-18] MEDS: SILVER SULFADIAZINE 1% CR 50 GM JAR EXT SCH (12:49)
[2016-11-18] MEDS: TOCOPHERYL, DL-ALPHA 400 INTER.UNIT CAP PO SCH (12:49)
[2016-11-18] MEDS: FAMOTIDINE 20 MG TAB PO SCH (12:49)
[2016-11-18] MEDS: PYRIDOXINE HCL 50 MG TAB PO SCH (12:49)
[2016-11-18] MEDS: CHOLECALCIFEROL 1000 INTER.UNIT TAB PO SCH (12:49)
[2016-11-18] MEDS: ASCORBIC ACID 500 MG TAB PO SCH (12:49)
[2016-11-18] MEDS: NEPHROCAPS PO SCH (12:49)
[2016-11-18] MEDS ORDERED: HEPARIN SOD (PORCINE) 1000 UNIT/ML 10 ML VIAL ONE (13:48)
[2016-11-18] MEDS ORDERED: THROMBIN FOR SOLN 20000 UNIT KIT ONE (13:48)
[2016-11-18] MEDS ORDERED: GELATIN SPONGE 12-7MM ONE (13:48)
[2016-11-18] MEDS ORDERED: BUPIVACAINE/EPINEPHRINE 0.5% MPF 1:200,000 30 ML VIAL ONE ×2 (13:48→15:17)
[2016-11-18] MEDS ORDERED: LIDOCAINE HCL 1% 20 ML VIAL ONE ×2 (13:48→15:18)
--- NOTE | 2016-11-18 14:13 | Progress Note ---
Progress Note Date of Service Nov 18, 2016. Progress Note This patient's a 60-year-old female who has a left upper arm cephalic vein fistula which is too deep to cannulate. Transposition was recommended. She understood the risks options and benefits and agreed to go ahead with this procedure. I have examined the patient, reviewed the History & Physical and in the interval since the performance of the History & Physical I have noted the following changes of clinical significance: No changes noted
[2016-11-18] MEDS ORDERED: FENTANYL CITRATE INJ 50 MCG/1 ML 2 ML VIAL IV PRN (14:15)
[2016-11-18] MEDS ORDERED: EpHEDrine SULFATE INJ 50 MG/ML AMP IV PRN (14:15)
[2016-11-18] MEDS ORDERED: ONDANSETRON INJ 2 MG/ML 2 ML VIAL IV PRN (14:15)
[2016-11-18] MEDS ORDERED: ATROPINE SULFATE 0.1 MG/ML 5ML SYR IV PRN (14:15)
[2016-11-18] MEDS ORDERED: ROPIVACAINE 0.5% 5 MG/ML 30 ML VIAL ONE (14:24)
[2016-11-18] MEDS ORDERED: FENTANYL CITRATE INJ 50 MCG/1 ML 2 ML VIAL ONE ×2 (14:49→15:15)
[2016-11-18] MEDS ORDERED: MIDAZOLAM HCL 1 MG/ML 2ML VIAL ONE ×3 (14:50→14:53)
[2016-11-18] MEDS ORDERED: KETAMINE HCL INJ 50 MG/ML 10 ML VIAL ONE (14:51)
[2016-11-18] MEDS ORDERED: ESMOLOL HCL 10 MG/ML 10 ML VIAL ONE (15:43)
--- NOTE | 2016-11-18 16:02 | [facility] Post Operative Brief Note ---
Immediate Operative Summary Operative Date Nov 18, 2016. Pre-Operative Diagnosis End stage renal disease Post-Operative Diagnosis End stage renal disease Procedure(s) Performed Cephalic Vein Transposition Left Upper Arteriovenous Fistula Surgeon Dr. Thapa Wood Cabinetmaker Surgeon(s) MD Betzy Rosales PA-C, Estimated Blood Loss 20CC Findings good thrill Specimens None Anesthesia MAC Complication(s) None Disposition Recovery Room / PACU
[2016-11-18] MEDS ORDERED: ALBUMIN HUMAN 5% 12.5 GM/250 ML VIAL IV ONE ×3 (16:25→17:00)
[2016-11-18] MEDS ORDERED: PHENYLEPHRINE HCL INJ 10 MG/ML VIAL ONE (16:43)
--- NOTE | 2016-11-18 17:33 | Anesthesiology Progress Note ---
Anesthesia Post Op Note Date & Time Nov 18, 2016 at 17:32 Vital Signs Pain Intensity: 0 Vital Signs Past 12 Hours Date Time Temp Pulse Resp B/P (MAP) Pulse Ox O2 Delivery O2 Flow Rate FiO2 11/18/16 17:19 91 17 11/18/16 17:19 90 17 100 11/18/16 17:16 89/47 11/18/16 17:14 91 15 11/18/16 17:14 89 15 100 11/18/16 17:12 92/49 11/18/16 17:11 89/47 11/18/16 17:09 93 18 11/18/16 17:09 95 18 99 11/18/16 17:06 105/45 11/18/16 17:05 97/46 11/18/16 17:04 91 17 11/18/16 17:04 91 17 11/18/16 17:01 88/43 11/18/16 16:59 91 18 97 11/18/16 16:59 91 18 11/18/16 16:56 92/47 11/18/16 16:54 93 20 94 11/18/16 16:54 93 20 11/18/16 16:51 88/41 11/18/16 16:49 91 24 84/40 95 11/18/16 16:49 91 24 11/18/16 16:48 74/41 11/18/16 16:47 90 24 85/42 94 11/18/16 16:47 90 24 11/18/16 16:46 67/37 11/18/16 16:42 90 24 11/18/16 16:42 90 24 95 11/18/16 16:41 68/36 11/18/16 16:39 36.4 89 19 74/41 (49) 93 Nasal Cannula 3 11/18/16 16:37 94 24 94 11/18/16 16:37 94 24 11/18/16 16:36 74/41 11/18/16 16:34 89 18 93 11/18/16 16:34 89 18 11/18/16 16:31 87/42 11/18/16 16:29 89 19 92 11/18/16 16:29 90 19 11/18/16 16:26 83/39 11/18/16 16:24 91 19 11/18/16 16:24 91 19 93 11/18/16 16:21 70/45 11/18/16 16:20 82/41 11/18/16 16:19 92 25 93 11/18/16 16:19 93 25 11/18/16 16:16 79/45 11/18/16 16:14 92 19 93 11/18/16 16:14 92 19 11/18/16 16:12 90/41 11/18/16 16:11 69/49 11/18/16 16:10 84/42 11/18/16 16:09 104 91 11/18/16 16:09 36.1 95 14 84/42 (63) 92 Nasal Cannula 2 11/18/16 16:09 104 11/18/16 12:55 104 18 111/62 (78) 92 Nasal Cannula 2.0 11/18/16 12:10 36.5 97 113/70 (84) 11/18/16 12:00 101 101/62 11/18/16 11:45 80 86/28 11/18/16 11:30 88 82/36 11/18/16 11:15 88 90/46 11/18/16 11:00 93 80/50 11/18/16 10:45 84 84/46 11/18/16 10:30 87 84/50 11/18/16 10:15 87 107/51 11/18/16 10:00 110 109/49 11/18/16 09:45 85 108/75 11/18/16 09:30 89 104/58 11/18/16 09:15 84 119/54 11/18/16 09:00 83 114/57 11/18/16 08:45 83 113/56 11/18/16 08:30 87 125/52 11/18/16 08:15 89 91/62 11/18/16 08:05 87 129/58 11/18/16 08:00 36.6 91 126/54 (78) 11/18/16 08:00 94 Nasal Cannula 2.0 11/18/16 07:10 36.5 85 20 134/63 (86) 94 Nasal Cannula 2.0 11/18/16 07:07 87 18 90 Nasal Cannula 2.0 11/18/16 07:05 36.6 88 18 90/46 (61) 92 2.0 Notes Mental Status: alert / awake / arousable, participated in evaluation Pt Amnestic to Procedure: Yes Nausea / Vomiting: adequately controlled Pain: adequately controlled Airway Patency, RR, SpO2: stable & adequate BP & HR: stable & adequate Hydration State: stable & adequate Anesthetic Complications: no major complications apparent Pain very well controlled. BP improved after 500ml of 5% albumin. Patient awake and conversant. No complications. Ok for transfer to the floor.
--- NOTE | 2016-11-18 21:04 | Progress Note ---
Subjective Date of Service: Nov 18, 2016. Subjective Pt evaluation today including: conversation w/ patient, physical exam, lab review, conversation w/ performance test consultant, review of inpatient medication list Pain: no pain PO Intake: NPO most of the day for procedure Voiding: no voiding problems patient tolerated hemodialysis this morning and then underwent successful cephalic vein transposition of fistula no complications with surgery, minimal blood loss, transferred back to room in stable condition breathing stable, no chest pain or pressure labs reviewed, vitals stable Problem List Medical Problems: (1) Acute respiratory failure with hypoxia and hypercarbia Status: Acute (2) Altered mental status Status: Acute (3) Anasarca Status: Acute (4) Anasarca Status: Acute (5) Bilateral cellulitis of lower leg Status: Acute (6) Bilateral lower leg cellulitis Status: Acute (7) Cellulitis of leg Status: Acute (8) Change in mental status Status: Acute (9) Chronic renal failure Status: Acute (10) CO2 retention Status: Acute (11) Contusion of multiple sites Status: Acute (12) Dehydration Status: Acute (13) Dyspnea on exertion Status: Acute (14) Fall Status: Acute (15) Fall Status: Acute (16) Fever Status: Acute (17) Fever Status: Acute (18) Generalized weakness Status: Acute (19) Hypercarbia Status: Acute (20) Hyperkalemia Status: Acute (21) Hypokalemia Status: Acute (22) Hypoventilation Status: Acute (23) Hypoxemia Status: Acute (24) Hypoxia Status: Acute (25) Lumbar strain Status: Acute (26) Metabolic acidosis Status: Acute (27) Nail avulsion of toe Status: Acute (28) Obesity Status: Acute (29) Positive blood culture Status: Acute (30) Respiratory acidosis Status: Acute (31) Respiratory failure Status: Acute (32) Weakness Status: Acute (33) Weight gain Status: Acute (34) Wrist pain Status: Acute Review of Systems Constitutional: + weakness, + fatigue Skin: + rash (bilatera cellulitis, improving) All Other Systems: Reviewed and Negative Medications Current Inpatient Medications Medications (Trade) Dose Ordered Sig/Duyen Route Start Time Stop Time Status Last Admin Dose Admin Vancomycin HCl (Consult) 1 ea UD N/A 11/11/16 16:25 12/11/16 16:24 Albuterol/ Ipratropium (Duoneb) 3 ml QIDR INH 11/11/16 16:00 12/11/16 15:59 11/18/16 19:10 3 ML Allopurinol (Zyloprim Tab) 100 mg DAILY PO 11/12/16 09:00 12/12/16 08:59 11/18/16 12:48 100 MG Atorvastatin Calcium (Lipitor Tab) 40 mg DAILY PO 11/12/16 09:00 12/12/16 08:59 11/18/16 12:48 40 MG Vitamin B Complex/ Vit C/Folic Acid (Nephrocaps) 1 cap QAM PO 11/12/16 09:00 12/12/16 08:59 11/18/16 12:49 1 CAP Calcium Acetate (Phoslo Cap) 667 mg ACHS PO 11/11/16 16:00 12/11/16 15:59 11/18/16 18:03 667 MG Cholecalciferol (Vitamin D Tab) 1,000 inter.unit DAILY PO 11/12/16 09:00 12/12/16 08:59 11/18/16 12:49 1,000 INTER.UNIT Famotidine (Pepcid Tab) 20 mg DAILY PO 11/12/16 09:00 12/12/16 08:59 11/18/16 12:49 20 MG Salmeterol Xinafoate/ Fluticasone (Advair Diskus 500/50 Inh) 1 puff BID INH 11/11/16 21:00 12/11/16 20:59 11/18/16 12:47 1 PUFF Acetaminophen/ Hydrocodone Bitart ([place] 5/325 Tab) 1 tab Q6H PRN PO 11/11/16 15:30 11/25/16 15:29 11/18/16 18:03 1 TAB Metoprolol Succinate (Toprol Xl Tab) 150 mg SuMoWeFr@0900 PO 11/12/16 09:00 12/12/16 08:59 11/17/16 08:13 150 MG Multivitamins/ Minerals (Multivitamin W/ Minerals Tab) 1 tab DAILY PO 11/12/16 09:00 12/12/16 08:59 11/18/16 12:48 1 TAB Pantoprazole Sodium (Protonix Tab) 40 mg DAILY PO 11/12/16 09:00 12/12/16 08:59 11/18/16 12:48 40 MG Pyridoxine HCl (Vitamin B-6 Tab) 200 mg DAILY PO 11/12/16 09:00 12/12/16 08:59 11/18/16 12:49 200 MG Silver Sulfadiazine (Silvadene 1% Crm 50GM Jar) 1 appln DAILY EXT 11/12/16 09:00 12/12/16 08:59 11/18/16 12:49 1 APPLN Tiotropium [place] (Spiriva Handihaler Inhaler) 1 puff DAILY INH 11/12/16 09:00 12/12/16 08:59 11/18/16 12:48 1 PUFF Ascorbic Acid (Vitamin C Tab) 1,000 mg DAILY PO 11/12/16 09:00 12/12/16 08:59 11/18/16 12:49 1,000 MG hy-Nsfqi-Kydrqxlnjy Acetate (Vitamin E Cap) 800 interunit DAILY PO 11/12/16 09:00 12/12/16 08:59 11/18/16 12:49 800 INTERUNIT Miscellaneous Information (Consult Glycemic Management Pharmacy) 1 ea UD PRN N/A 11/11/16 16:00 12/11/16 15:59 Heparin Sodium (Porcine) (Heparin Sq 5000 Unit/0.5ml) 5,000 unit Q12 SQ 11/11/16 21:00 12/11/16 20:59 11/17/16 20:50 5,000 UNIT Hydromorphone HCl (Dilaudid Inj) 1 mg Q8H PRN IV 11/11/16 15:30 11/25/16 15:29 11/11/16 17:27 1 MG Pregabalin (Lyrica Cap) 50 mg DAILY PO 11/12/16 09:00 12/12/16 08:59 11/18/16 12:48 50 MG Miconazole Nitrate (Desenex Powder) 1 appln PRN PRN EXT 11/11/16 17:15 12/11/16 17:14 11/16/16 09:10 1 APPLN Doxycycline Hyclate (Vibramycin Cap) 100 mg BID PO 11/11/16 21:00 12/12/16 20:59 Future hold 11/18/16 08:00 100 MG Insulin Aspart (novoLOG ASPART) SLIDING SCALE ACHS SC 11/12/16 11:00 12/12/16 10:59 11/18/16 08:18 7 UNITS Glucose (Glucose 40% Gel) 15-30 GRAMS 15 GRAMS... UD PRN PO 11/12/16 14:15 12/12/16 14:14 Glucose (Glucose Chew Tab) 4-8 Tablets 4 Tabl... UD PRN PO 11/12/16 14:15 12/12/16 14:14 Dextrose (Dextrose 50% 50ML Syringe) 25-50ML OF 50% DW IV FOR... UD PRN IV 11/12/16 14:15 12/12/16 14:14 Glucagon (Glucagon Inj) 1 mg UD PRN SQ 11/12/16 14:15 12/12/16 14:14 Insulin Aspart (novoLOG ASPART) SLIDING SCALE 0000,0400 SC 11/13/16 00:00 12/13/16 00:00 11/18/16 04:34 1 UNITS Ketotifen Fumarate (Zaditor 0.025% Op Soln) 1 drops BID OPB 11/16/16 20:13 12/16/16 20:12 11/17/16 20:47 1 DROPS Cefazolin Sodium 65 ml @ 100 mls/hr PREOP IV 11/18/16 06:00 11/19/16 05:59 11/18/16 14:40 100 MLS/HR Insulin Glargine (Lantus Vial) SEE PROTOCOL TEXT BID SC 11/17/16 20:00 12/17/16 19:59 11/18/16 08:28 85 UNITS Objective Vital Signs Date Time Temp Pulse Resp B/P (MAP) Pulse Ox O2 Delivery O2 Flow Rate FiO2 11/18/16 19:12 36.9 91 18 96/58 (71) 100 Nasal Cannula 3.0 11/18/16 19:10 86 18 97 Nasal Cannula 2.0 11/18/16 18:48 91 18 119/60 (79) 93 Nasal Cannula 3.0 11/18/16 18:20 93 Nasal Cannula 3.0 11/18/16 18:15 102 18 98/59 (72) 90 Nasal Cannula 3.0 11/18/16 17:36 98/52 11/18/16 17:35 92 16 100 11/18/16 17:35 91 16 11/18/16 17:31 92/45 9/19/17 17:30 95 20 9/19/17 17:30 95 20 100/50 99 9/19/17 17:26 97/48 9/19/17 17:25 92 19 100 9/19/17 17:25 92 19 9/19/17 17:21 96/47 9/19/17 17:20 91 18 9/19/17 17:20 91 18 100 9/19/17 17:19 91 17 9/19/17 17:19 90 17 100 9/19/17 17:16 89/47 9/19/17 17:14 91 15 9/19/17 17:14 89 15 100 9/19/17 17:12 92/49 9/19/17 17:11 89/47 9/19/17 17:09 93 18 9/19/17 17:09 95 18 99 9/19/17 17:06 105/45 9/19/17 17:05 97/46 9/19/17 17:04 91 17 9/19/17 17:04 91 17 9/19/17 17:01 88/43 9/19/17 16:59 91 18 97 9/19/17 16:59 91 18 9/19/17 16:56 92/47 9/19/17 16:54 93 20 94 9/19/17 16:54 93 20 9/19/17 16:51 88/41 9/19/17 16:49 91 24 84/40 95 9/19/17 16:49 91 24 9/19/17 16:48 74/41 9/19/17 16:47 90 24 85/42 94 9/19/17 16:47 90 24 9/19/17 16:46 67/37 9/19/17 16:42 90 24 9/19/17 16:42 90 24 95 9/19/17 16:41 68/36 9/19/17 16:39 36.4 89 19 74/41 (49) 93 Nasal Cannula 3 9/19/17 16:37 94 24 94 9/19/17 16:37 94 24 9/19/17 16:36 74/41 9/19/17 16:34 89 18 93 9/19/17 16:34 89 18 9/19/17 16:31 87/42 9/19/17 16:29 89 19 92 9/19/17 16:29 90 19 11/18/16 16:26 83/39 11/18/16 16:24 91 19 11/18/16 16:24 91 19 93 11/18/16 16:21 70/45 11/18/16 16:20 82/41 11/18/16 16:19 92 25 93 11/18/16 16:19 93 25 11/18/16 16:16 79/45 11/18/16 16:14 92 19 93 11/18/16 16:14 92 19 11/18/16 16:12 90/41 11/18/16 16:11 69/49 11/18/16 16:10 84/42 11/18/16 16:09 104 91 11/18/16 16:09 36.1 95 14 84/42 (63) 92 Nasal Cannula 2 11/18/16 16:09 104 11/18/16 12:55 104 18 111/62 (78) 92 Nasal Cannula 2.0 11/18/16 12:10 36.5 97 113/70 (84) 11/18/16 12:00 101 101/62 11/18/16 11:45 80 86/28 11/18/16 11:30 88 82/36 11/18/16 11:15 88 90/46 11/18/16 11:00 93 80/50 11/18/16 10:45 84 84/46 11/18/16 10:30 87 84/50 11/18/16 10:15 87 107/51 11/18/16 10:00 110 109/49 11/18/16 09:45 85 108/75 11/18/16 09:30 89 104/58 11/18/16 09:15 84 119/54 11/18/16 09:00 83 114/57 11/18/16 08:45 83 113/56 11/18/16 08:30 87 125/52 11/18/16 08:15 89 91/62 11/18/16 08:05 87 129/58 11/18/16 08:00 36.6 91 126/54 (78) 11/18/16 08:00 94 Nasal Cannula 2.0 11/18/16 07:10 36.5 85 20 134/63 (86) 94 Nasal Cannula 2.0 11/18/16 07:07 87 18 90 Nasal Cannula 2.0 11/18/16 07:05 36.6 88 18 90/46 (61) 92 2.0 11/18/16 00:43 84 96 35 11/18/16 00:00 BiPAP 11/17/16 23:23 36.8 85 20 95/45 (62) 94 2.0 Physical Exam General Appearance: no apparent distress, + obese Eyes: normal inspection, EOMI, sclerae normal ENT: normal ENT inspection, hearing grossly normal, pharynx normal Neck: no adenopathy, no JVD, trachea midline, + pertinent finding (large neck circumference) Respiratory/Chest: chest non-tender, lungs clear, normal breath sounds, no respiratory distress, no accessory muscle use Cardiovascular: regular rate, rhythm, no gallop, no JVD, no murmur Abdomen: normal bowel sounds, non tender, soft, no organomegaly Extremities: normal range of motion, non-tender, normal inspection, no calf tenderness, pelvis stable, + pedal edema 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: review analyst II-XII nml as tested, no motor/sensory deficits, alert, normal mood/affect, oriented x 3 Skin: + rash (bilateral erythema, appears to be cellulitis on top of chronic venous stasis changes, not tender or warm, + weeping on right) Laboratory Results Last 24 Hours Test 11/18/16 00:28 11/18/16 04:31 11/18/16 07:39 11/18/16 11:33 Bedside Glucose 122 mg/dl 143 mg/dl 179 mg/dl 107 mg/dl White Blood Count 11.50 K/uL Red Blood Count 3.28 M/uL Hemoglobin 10.5 g/dL Hematocrit 34.8 % Mean Corpuscular Volume 106.1 fL Mean Corpuscular Hemoglobin 32.0 pg Mean Corpuscular Hemoglobin Concent 30.2 g/dl RDW Standard Deviation 85.8 fL RDW Coefficient of Variation 22.4 % Platelet Count 186 K/uL Mean Platelet Volume 10.3 fL Nucleated RBC Absolute Count (auto) 0.50 K/uL Nucleated Red Blood Cells % 4.3 % Sodium Level 133 mmol/L Potassium Level 5.3 mmol/L Chloride Level 102 mmol/L Carbon Dioxide Level 20 mmol/L Anion Gap 11.0 mmol/L Blood Urea Nitrogen 81 mg/dl Creatinine 10.00 mg/dl Est Creatinine Clear Calc Drug Dose 8.5 ml/min Estimated GFR () 4.3 Estimated GFR (Non- 3.7 BUN/Creatinine Ratio 8.1 Random Glucose 159 mg/dl Calcium Level 8.1 mg/dl Test 11/18/16 16:21 Bedside Glucose 95 mg/dl Assessment and Plan Acute and Chronic Hypercarbic Respiratory Failure with COPD Exacerbation: STABLE , acute component resolved completely - Initial treatment with BiPAP, IV Bicarb, and Emergent HD - At baseline - utilizing BiPAP at night and chronic continuous O2 - Pulmonology followed and S/O - recommendations for trach but patient declined Bilateral Leg Cellulitis: - One positive blood culture - likely contaminant - Likely underlying insufficiency - ID Following - Completed 7 days IV Vancomycin today, can transition back to chronic Doxycycline ESRD on Dialysis: - Plans to convert to MWF routine - Nephrology following - received HD today with 3L UF, tolerated well - left UE transposition of fistula T2DM: A1c 5.9 - Glycemic management DVT Prophylaxis: Heparin SC BID Disposition: - possible d/c home tomorrow after HD if she is doing well Continued [facility] stay due to: multiple IV medications needed Discharge planning: home with home health
[2016-11-19] VITALS (8 sets, daily range): BP systolic 107–127; BP diastolic 64–73; PULSE 77–92; TEMP 36.7–36.8; O2SAT 92–100
[2016-11-19] MEDS: INSULIN ASPART 100 UNITS/ML 3 ML PEN SC SCH ×6 (04:00→20:23)
[2016-11-19] MEDS: HYDROCODONE/ACETAMOPHEN 5/325MG TAB PO PRN ×3 (05:50→18:17)
[2016-11-19] MEDS: ALBUT/IPRATROP 3MG/0.5MG NEB 3 ML VIAL INH SCH ×4 (07:12→19:35)
[2016-11-19 07:58] LABS: BUN/CREATININE RATIO 6.2 (10-20); CALCIUM 8.3 mg/dl (8.5-10.1); POTASSIUM 4.2 mmol/L (3.5-5.1)
--- NOTE | 2016-11-19 08:08 | OPERATIVE REPORT ---
DATE OF OPERATION: 11/18/2016 PREOPERATIVE DIAGNOSIS: End-stage renal disease on hemodialysis. POSTOPERATIVE DIAGNOSIS: Same. PROCEDURE: Super fistulization of left upper extremity brachiocephalic fistula. SURGEON: Dr. Jens Thapa. SENIOR ENGINEERING ASSOCIATE: Dr. Adamaris Spicer and Betzy Taylor PA-C. ANESTHESIA: Local plus conscious sedation. FLUIDS: 500 of Crystalloid. URINE OUTPUT: Not recorded. ESTIMATED BLOOD LOSS: 50 mL. COMPLICATIONS: None apparent. CONDITION: Stable to PACU. INDICATIONS: Ms. Gaytan is a 60-year-old female who has end-stage renal disease on hemodialysis. She has a previously placed left brachiocephalic fistula; however, this is quite deep and they were unable to cannulate her fistula during hemodialysis. Therefore transposition of the cephalic vein was proposed. Risks of the procedure were explained to the patient and she agreed to undergo the above procedure. PROCEDURE: The patient was brought into the operative suite. She was prepped and draped in the usual fashion. A timeout occurred. Her brachiocephalic fistula was identified under ultrasound. An incision was made over the fistula, and this was dissected out. The incision was extended proximally to about the level of her underarm and the fistula was exposed. All branches were ligated and the fistula freed up. A superficial pocket was made on the medial aspect of the incision for which the fistula was tucked into. The rest of the subcutaneous tissue was closed underneath it. Then the skin was closed over top. This allowed the fistula to be quite superficial. There was a good thrill in the fistula upon completion of the case. Skin was closed with susan. The patient tolerated the procedure well and was transported to PACU in stable condition. Dr. Jens Thapa was present for the entirety of this case. I attest to the content of the Intraoperative Record and any orders documented therein. Any exceptions are noted below. I, Dr. Thapa was present and scrubbed for the entire procedure. [facility]IT[facility]rist[facility]
[2016-11-19] MEDS: ALLOPURINOL 100 MG TAB PO SCH (08:53)
[2016-11-19] MEDS: CALCIUM ACETATE 667MG GELCAP PO SCH ×4 (08:53→20:15)
[2016-11-19] MEDS: ATORVASTATIN 40 MG TAB PO SCH (08:54)
[2016-11-19] MEDS: TOCOPHERYL, DL-ALPHA 400 INTER.UNIT CAP PO SCH (08:54)
[2016-11-19] MEDS: DOXYCYCLINE HYCLATE 100 MG CAP PO SCH ×2 (08:55→20:15)
[2016-11-19] MEDS: NEPHROCAPS PO SCH (08:55)
[2016-11-19] MEDS: CHOLECALCIFEROL 1000 INTER.UNIT TAB PO SCH (08:55)
[2016-11-19] MEDS: FAMOTIDINE 20 MG TAB PO SCH (08:55)
[2016-11-19] MEDS: CEROVITE ADV FORMULA TAB PO SCH (08:56)
[2016-11-19] MEDS: PANTOprazole SOD 40 MG TAB PO SCH (08:56)
[2016-11-19] MEDS: ASCORBIC ACID 500 MG TAB PO SCH (08:57)
[2016-11-19] MEDS: PYRIDOXINE HCL 50 MG TAB PO SCH (08:59)
[2016-11-19] MEDS: METOPROLOL SUCC 50MG EXT REL TAB PO SCH (09:00)
[2016-11-19] MEDS: FLUTICASONE/SALMETEROL (ADVAIR) 500/50 INH 14 PUFF INH SCH ×2 (09:00→20:13)
[2016-11-19] MEDS: KETOTIFEN FUMARATE (ZADITOR) 0.025% 5 ML BTL OPB SCH ×2 (09:01→20:13)
[2016-11-19] MEDS: SILVER SULFADIAZINE 1% CR 50 GM JAR EXT SCH (09:01)
[2016-11-19] MEDS: TIOTROPIUM BROMIDE 5 PUFF/90 MCG INH INH SCH (09:01)
[2016-11-19] MEDS: PREGABALIN 50 MG CAP PO SCH (09:09)
[2016-11-19] MEDS: INSULIN GLARGINE SC SCH ×2 (09:27→20:23)
[2016-11-19] MEDS: HEPARIN SOD 5000 UNIT/0.5 ML CARP SQ SCH ×2 (09:28→20:24)
--- NOTE | 2016-11-19 09:50 | Nephrology Progress Note ---
Nephrology Progress Note Date of Service Nov 19, 2016. Chief Complaint Follow-up for end-stage renal disease. Subjective Jazmin was seen with her at bedside. She had HD yesterday and then transposition of AVF in the afternoon. Currently having some pain , swelling and numbness from nerve block for the procedure. Denies SOB, CP. Bp stable. Review of Systems A complete review of systems was performed. Pertinent positives are noted above. All other systems are negative. Vital Signs Last 8 Hrs Date Time Temp Pulse Resp B/P (MAP) Pulse Ox O2 Delivery O2 Flow Rate FiO2 11/19/16 07:19 36.7 89 18 107/66 (80) 100 Nasal Cannula 3.0 11/19/16 07:13 78 16 98 Nasal Cannula 2.0 11/19/16 00:00 BiPAP Last Recorded Weight Weight (Kilograms): 148.000 Physical Exam GENERAL: Middle-aged female AAA x 3, morbidly obese, not in any distress. NECK: Supple, no JVD. RESPIRATORY: Normal breathing efforts, no accessory muscle use, clear to auscultation bilaterally, no wheezes or rales. CARDIOVASCULAR: S1, S2 normal, rate rhythm regular. EXTREMITY: Edema, erythema and warmth of bilateral lower extremity with superficial skin break on the right lower extremity. Left upper extremity AVF incision dressing dry but hand swollen. NEURO: speech fluent. PSYCHIATRY: Normal mood and judgment Family History Cancer Diabetes mellitus Gallbladder disease Heart disease Lung disease Negative for CKD / ESRD Social History Smoking Status: Former smoker Drug Use: none Marital Status: Housing Status: lives with family Occupation: unemployed . Lives at home. Former smoker Laboratory Results Past 24 Hours Test 11/18/16 11:33 11/18/16 16:21 11/18/16 20:17 11/18/16 21:36 Bedside Glucose 107 mg/dl (70-90) 95 mg/dl (70-90) 100 mg/dl (70-90) 111 mg/dl (70-90) Test 11/19/16 00:07 11/19/16 04:03 11/19/16 06:45 Bedside Glucose 95 mg/dl (70-90) 85 mg/dl (70-90) Allergies Coded Allergies: Daptomycin (Verified Allergy, Intermediate, HIVES/ITCHING, 11/18/16) itching Sulfamethoxazole w/Trimethoprim (Verified Allergy, Intermediate, RASH, ) Iodine (Verified Allergy, Unknown, 11/11/16) Shellfish (Verified Allergy, Unknown, 11/11/16) Codeine (Verified Adverse Reaction, Mild, NAUSEA, 11/17/16) has tolerated morphine Uncoded Allergies: kristina wipes (Allergy, Severe, red rash, excoriation, 09/19/16) comfort baths (Adverse Reaction, Severe, rash, "breaks out all over", ) Medications Current Inpatient Medications Medications (Trade) Dose Ordered Sig/Duyen Route Start Time Stop Time Status Last Admin Dose Admin Vancomycin HCl (Consult) 1 ea UD N/A 11/11/16 16:25 12/11/16 16:24 Albuterol/ Ipratropium (Duoneb) 3 ml QIDR INH 11/11/16 16:00 12/11/16 15:59 11/19/16 07:12 3 ML Allopurinol (Zyloprim Tab) 100 mg DAILY PO 11/12/16 09:00 12/12/16 08:59 11/18/16 12:48 100 MG Atorvastatin Calcium (Lipitor Tab) 40 mg DAILY PO 11/12/16 09:00 12/12/16 08:59 11/18/16 12:48 40 MG Vitamin B Complex/ Vit C/Folic Acid (Nephrocaps) 1 cap QAM PO 11/12/16 09:00 12/12/16 08:59 11/18/16 12:49 1 CAP Calcium Acetate (Phoslo Cap) 667 mg ACHS PO 11/11/16 16:00 12/11/16 15:59 11/18/16 21:32 667 MG Cholecalciferol (Vitamin D Tab) 1,000 inter.unit DAILY PO 11/12/16 09:00 12/12/16 08:59 11/18/16 12:49 1,000 INTER.UNIT Famotidine (Pepcid Tab) 20 mg DAILY PO 11/12/16 09:00 12/12/16 08:59 11/18/16 12:49 20 MG Salmeterol Xinafoate/ Fluticasone (Advair Diskus 500/50 Inh) 1 puff BID INH 11/11/16 21:00 12/11/16 20:59 11/18/16 12:47 1 PUFF Acetaminophen/ Hydrocodone Bitart ([place] 5/325 Tab) 1 tab Q6H PRN PO 11/11/16 15:30 11/25/16 15:29 11/19/16 05:50 1 TAB Metoprolol Succinate (Toprol Xl Tab) 150 mg SuMoWeFr@0900 PO 11/12/16 09:00 12/12/16 08:59 11/17/16 08:13 150 MG Multivitamins/ Minerals (Multivitamin W/ Minerals Tab) 1 tab DAILY PO 11/12/16 09:00 12/12/16 08:59 11/18/16 12:48 1 TAB Pantoprazole Sodium (Protonix Tab) 40 mg DAILY PO 11/12/16 09:00 12/12/16 08:59 11/18/16 12:48 40 MG Pyridoxine HCl (Vitamin B-6 Tab) 200 mg DAILY PO 11/12/16 09:00 12/12/16 08:59 11/18/16 12:49 200 MG Silver Sulfadiazine (Silvadene 1% Crm 50GM Jar) 1 appln DAILY EXT 11/12/16 09:00 12/12/16 08:59 11/18/16 12:49 1 APPLN Tiotropium [place] (Spiriva Handihaler Inhaler) 1 puff DAILY INH 11/12/16 09:00 12/12/16 08:59 11/18/16 12:48 1 PUFF Ascorbic Acid (Vitamin C Tab) 1,000 mg DAILY PO 11/12/16 09:00 12/12/16 08:59 11/18/16 12:49 1,000 MG oh-Kaboz-Gdwgsipxoq Acetate (Vitamin E Cap) 800 interunit DAILY PO 11/12/16 09:00 12/12/16 08:59 11/18/16 12:49 800 INTERUNIT Miscellaneous Information (Consult Glycemic Management Pharmacy) 1 ea UD PRN N/A 11/11/16 16:00 12/11/16 15:59 Heparin Sodium (Porcine) (Heparin Sq 5000 Unit/0.5ml) 5,000 unit Q12 SQ 11/11/16 21:00 12/11/16 20:59 11/18/16 21:41 5,000 UNIT Hydromorphone HCl (Dilaudid Inj) 1 mg Q8H PRN IV 11/11/16 15:30 11/25/16 15:29 11/11/16 17:27 1 MG Pregabalin (Lyrica Cap) 50 mg DAILY PO 11/12/16 09:00 12/12/16 08:59 11/18/16 12:48 50 MG Miconazole Nitrate (Desenex Powder) 1 appln PRN PRN EXT 11/11/16 17:15 12/11/16 17:14 11/16/16 09:10 1 APPLN Doxycycline Hyclate (Vibramycin Cap) 100 mg BID PO 11/11/16 21:00 12/12/16 20:59 Future hold 11/18/16 21:34 100 MG Insulin Aspart (novoLOG ASPART) SLIDING SCALE ACHS SC 11/12/16 11:00 12/12/16 10:59 11/18/16 08:18 7 UNITS Glucose (Glucose 40% Gel) 15-30 GRAMS 15 GRAMS... UD PRN PO 11/12/16 14:15 12/12/16 14:14 Glucose (Glucose Chew Tab) 4-8 Tablets 4 Tabl... UD PRN PO 11/12/16 14:15 12/12/16 14:14 Dextrose (Dextrose 50% 50ML Syringe) 25-50ML OF 50% DW IV FOR... UD PRN IV 11/12/16 14:15 12/12/16 14:14 Glucagon (Glucagon Inj) 1 mg UD PRN SQ 11/12/16 14:15 12/12/16 14:14 Insulin Aspart (novoLOG ASPART) SLIDING SCALE 0000,0400 SC 11/13/16 00:00 12/13/16 00:00 11/18/16 04:34 1 UNITS Ketotifen Fumarate (Zaditor 0.025% Op Soln) 1 drops BID OPB 11/16/16 20:13 12/16/16 20:12 11/18/16 21:33 1 DROPS Insulin Glargine (Lantus Vial) SEE PROTOCOL TEXT BID SC 11/17/16 20:00 12/17/16 19:59 11/18/16 21:40 85 UNITS Impression (1) ESRD on hemodialysis (2) Hypercapnic respiratory failure (3) Obesity hypoventilation syndrome (4) Cellulitis of leg Mrs. Gaytan has recurrent hypercapnic respiratory failure despite adherence to NIPPV at home. Her CXR is concerning for a RLL infiltrate. Patient has dry cracked skin on her feet and bilateral LE cellulitis. She has ESRD due to cardiorenal syndrome and requires TTS HD (4.5hr F-180NR Qb300 Qd A1.5 3K 2.5 Ca EDW 137.7 kg Heparin 2000 load w/ 1000 units hourly). Had AVF transposition on 11/18/16. She will be switching to [facility] HD unit under care of Dr. Leblanc, starting after discharge, tentatively plan to have first Rx on 11/21/16 Recommendations -- had dialysis yesterday, had <2 L UF, BP was low, now otherwise doing well. -- IJ THC placed 07/25/16. L upper arm AVF created 08/19/[address] Thapa,had transposition on 11/18/16 -- Will monitor H&H and provide SAMARA as needed to keep Hgb 10 - 11 -- continue on Nephrocaps and phosphate binder with meal. --HD tomorrow and then possible DC home and hD on Thursday at [facility], will be on Thursday, Thursday, Thursday schedule. Will follow
[2016-11-19] MEDS: ONDANSETRON 4MG OD TAB PO PRN ×2 (11:54→18:15)
--- NOTE | 2016-11-19 12:42 | Hospitalist Progress Note ---
Hospitalist Progress Note Date of Service Nov 19, 2016. Subjective Pt evaluation today including: conversation w/ patient, conversation w/ family , physical exam, chart review, lab review, review of studies, review of inpatient medication list Patient seen and evaluated. S/P Transposition of L AV Fistula. Reports pain in her arm that prevented her from sleeping last night. States [place] improved the pain temporarily. Patient is drowsy and intermittently falls asleep during exam but easily wakes up. Is also complaining of nausea without emesis. Will hold of on further adjustments to pain medication. IV Dilaudid is ordered and may be used if necessary Plan for dialysis tomorrow and likely D/C Constitutional: No fever, No chills Respiratory: No shortness of breath Cardiovascular: No chest pain Abdomen: + nausea, No pain, No vomiting, No diarrhea, No constipation Musculoskeletal: + swelling (b/l LE), + problem reported (L arm pain at fistula site) Female : No dysuria Heme: No abnormal bleeding/bruising Medications Current Inpatient Medications Medications (Trade) Dose Ordered Sig/Duyen Route Start Time Stop Time Status Last Admin Dose Admin Vancomycin HCl (Consult) 1 ea UD N/A 11/11/16 16:25 12/11/16 16:24 Albuterol/ Ipratropium (Duoneb) 3 ml QIDR INH 11/11/16 16:00 12/11/16 15:59 11/19/16 11:20 3 ML Allopurinol (Zyloprim Tab) 100 mg DAILY PO 11/12/16 09:00 12/12/16 08:59 11/19/16 08:53 100 MG Atorvastatin Calcium (Lipitor Tab) 40 mg DAILY PO 11/12/16 09:00 12/12/16 08:59 11/19/16 08:54 40 MG Vitamin B Complex/ Vit C/Folic Acid (Nephrocaps) 1 cap QAM PO 11/12/16 09:00 12/12/16 08:59 11/19/16 08:55 1 CAP Calcium Acetate (Phoslo Cap) 667 mg ACHS PO 11/11/16 16:00 12/11/16 15:59 11/19/16 11:54 667 MG Cholecalciferol (Vitamin D Tab) 1,000 inter.unit DAILY PO 11/12/16 09:00 12/12/16 08:59 11/19/16 08:55 1,000 INTER.UNIT Famotidine (Pepcid Tab) 20 mg DAILY PO 11/12/16 09:00 12/12/16 08:59 11/19/16 08:55 20 MG Salmeterol Xinafoate/ Fluticasone (Advair Diskus 500/50 Inh) 1 puff BID INH 11/11/16 21:00 12/11/16 20:59 11/19/16 09:00 1 PUFF Acetaminophen/ Hydrocodone Bitart ([place] 5/325 Tab) 1 tab Q6H PRN PO 11/11/16 15:30 11/25/16 15:29 11/19/16 11:57 1 TAB Metoprolol Succinate (Toprol Xl Tab) 150 mg SuMoWeFr@0900 PO 11/12/16 09:00 12/12/16 08:59 11/19/16 09:00 150 MG Multivitamins/ Minerals (Multivitamin W/ Minerals Tab) 1 tab DAILY PO 11/12/16 09:00 12/12/16 08:59 11/19/16 08:56 1 TAB Pantoprazole Sodium (Protonix Tab) 40 mg DAILY PO 11/12/16 09:00 12/12/16 08:59 11/19/16 08:56 40 MG Pyridoxine HCl (Vitamin B-6 Tab) 200 mg DAILY PO 11/12/16 09:00 12/12/16 08:59 11/19/16 08:59 200 MG Silver Sulfadiazine (Silvadene 1% Crm 50GM Jar) 1 appln DAILY EXT 11/12/16 09:00 12/12/16 08:59 11/19/16 09:01 1 APPLN Tiotropium [place] (Spiriva Handihaler Inhaler) 1 puff DAILY INH 11/12/16 09:00 12/12/16 08:59 11/19/16 09:01 1 PUFF Ascorbic Acid (Vitamin C Tab) 1,000 mg DAILY PO 11/12/16 09:00 12/12/16 08:59 11/19/16 08:57 1,000 MG gl-Clepg-Peyztcthgd Acetate (Vitamin E Cap) 800 interunit DAILY PO 11/12/16 09:00 12/12/16 08:59 11/19/16 08:54 800 INTERUNIT Miscellaneous Information (Consult Glycemic Management Pharmacy) 1 ea UD PRN N/A 11/11/16 16:00 12/11/16 15:59 Heparin Sodium (Porcine) (Heparin Sq 5000 Unit/0.5ml) 5,000 unit Q12 SQ 11/11/16 21:00 12/11/16 20:59 11/19/16 09:28 5,000 UNIT Hydromorphone HCl (Dilaudid Inj) 1 mg Q8H PRN IV 11/11/16 15:30 11/25/16 15:29 11/11/16 17:27 1 MG Pregabalin (Lyrica Cap) 50 mg DAILY PO 11/12/16 09:00 12/12/16 08:59 11/19/16 09:09 50 MG Miconazole Nitrate (Desenex Powder) 1 appln PRN PRN EXT 11/11/16 17:15 12/11/16 17:14 11/16/16 09:10 1 APPLN Doxycycline Hyclate (Vibramycin Cap) 100 mg BID PO 11/11/16 21:00 12/12/16 20:59 Future hold 11/19/16 08:55 100 MG Insulin Aspart (novoLOG ASPART) SLIDING SCALE ACHS SC 11/12/16 11:00 12/12/16 10:59 11/19/16 09:27 12 UNITS Glucose (Glucose 40% Gel) 15-30 GRAMS 15 GRAMS... UD PRN PO 11/12/16 14:15 12/12/16 14:14 Glucose (Glucose Chew Tab) 4-8 Tablets 4 Tabl... UD PRN PO 11/12/16 14:15 12/12/16 14:14 Dextrose (Dextrose 50% 50ML Syringe) 25-50ML OF 50% DW IV FOR... UD PRN IV 11/12/16 14:15 12/12/16 14:14 Glucagon (Glucagon Inj) 1 mg UD PRN SQ 11/12/16 14:15 12/12/16 14:14 Insulin Aspart (novoLOG ASPART) SLIDING SCALE 0000,0400 SC 11/13/16 00:00 12/13/16 00:00 11/18/16 04:34 1 UNITS Ketotifen Fumarate (Zaditor 0.025% Op Soln) 1 drops BID OPB 11/16/16 20:13 12/16/16 20:12 11/19/16 09:01 1 DROPS Insulin Glargine (Lantus Vial) SEE PROTOCOL TEXT BID SC 11/17/16 20:00 12/17/16 19:59 11/19/16 09:27 70 UNITS Ondansetron HCl (Zofran Odt) 4 mg Q6H PRN PO 11/19/16 11:30 12/19/16 11:29 11/19/16 11:54 4 MG Objective Vital Signs Date Time Temp Pulse Resp B/P (MAP) Pulse Ox O2 Delivery O2 Flow Rate FiO2 11/19/16 11:21 88 16 92 Nasal Cannula 2.0 11/19/16 07:51 Nasal Cannula 2.0 11/19/16 07:19 36.7 89 18 107/66 (80) 100 Nasal Cannula 3.0 11/19/16 07:13 78 16 98 Nasal Cannula 2.0 11/19/16 00:00 BiPAP 11/18/16 23:29 36.9 89 20 127/64 (85) 94 CPAP 3.0 11/18/16 22:26 80 96 35 11/18/16 19:12 36.9 91 18 96/58 (71) 100 Nasal Cannula 3.0 11/18/16 19:10 86 18 97 Nasal Cannula 2.0 11/18/16 18:48 91 18 119/60 (79) 93 Nasal Cannula 3.0 11/18/16 18:20 93 Nasal Cannula 3.0 11/18/16 18:15 102 18 98/59 (72) 90 Nasal Cannula 3.0 11/18/16 17:36 98/52 11/18/16 17:35 92 16 100 11/18/16 17:35 91 16 11/18/16 17:31 92/45 11/18/16 17:30 95 20 11/18/16 17:30 95 20 100/50 99 11/18/16 17:26 97/48 11/18/16 17:25 92 19 100 11/18/16 17:25 92 19 11/18/16 17:21 96/47 11/18/16 17:20 91 18 11/18/16 17:20 91 18 100 11/18/16 17:19 91 17 9/19/17 17:19 90 17 100 9/19/17 17:16 89/47 9/19/17 17:14 91 15 9/19/17 17:14 89 15 100 9/19/17 17:12 92/49 9/19/17 17:11 89/47 9/19/17 17:09 93 18 9/19/17 17:09 95 18 99 9/19/17 17:06 105/45 9/19/17 17:05 97/46 9/19/17 17:04 91 17 9/19/17 17:04 91 17 /19/17 17:01 88/43 9/19/17 16:59 91 18 97 9/19/17 16:59 91 18 9/19/17 16:56 92/47 9/19/17 16:54 93 20 94 9/19/17 16:54 93 20 9/19/17 16:51 88/41 9/19/17 16:49 91 24 84/40 95 9/19/17 16:49 91 24 9/19/17 16:48 74/41 9/19/17 16:47 90 24 85/42 94 9/19/17 16:47 90 24 /19/17 16:46 67/37 9/19/17 16:42 90 24 9/19/17 16:42 90 24 95 9/19/17 16:41 68/36 9/19/17 16:39 36.4 89 19 74/41 (49) 93 Nasal Cannula 3 19/17 16:37 94 24 94 9/19/17 16:37 94 24 9/19/17 16:36 74/41 9/19/17 16:34 89 18 93 9/19/17 16:34 89 18 9/19/17 16:31 87/42 9/19/17 16:29 89 19 92 9/19/17 16:29 90 19 9/19/17 16:26 83/39 9/19/17 16:24 91 19 9/19/17 16:24 91 19 93 9/19/17 16:21 70/45 9/19/17 16:20 82/41 9/19/17 16:19 92 25 93 9/19/17 16:19 93 25 9/19/17 16:16 79/45 9/19/17 16:14 92 19 93 9/19/17 16:14 92 19 11/18/16 16:12 90/41 11/18/16 16:11 69/49 11/18/16 16:10 84/42 11/18/16 16:09 104 91 11/18/16 16:09 36.1 95 14 84/42 (63) 92 Nasal Cannula 2 11/18/16 16:09 104 11/18/16 12:55 104 18 111/62 (78) 92 Nasal Cannula 2.0 Physical Exam General Appearance: WD/WN, no apparent distress, + obese (morbid) ENT: hearing grossly normal Respiratory/Chest: lungs clear, normal breath sounds, no respiratory distress, no accessory muscle use Cardiovascular: regular rate, rhythm, no gallop, no murmur Abdomen: normal bowel sounds, non tender, soft Extremities: + pertinent finding (b/l - dry/scaled, hardened skin; dry with evidence of recent weeping; erythematous but not warm to touch) 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: alert, oriented x 3 Skin: normal color, warm/dry Laboratory Results Last 24 Hours Test 11/18/16 16:21 11/18/16 20:17 11/18/16 21:36 11/19/16 00:07 Bedside Glucose 95 mg/dl 100 mg/dl 111 mg/dl 95 mg/dl Test 11/19/16 04:03 11/19/16 06:45 11/19/16 08:01 Bedside Glucose 85 mg/dl 90 mg/dl Sodium Level 132 mmol/L Potassium Level 4.2 mmol/L Chloride Level 100 mmol/L Carbon Dioxide Level 23 mmol/L Anion Gap 9.0 mmol/L Blood Urea Nitrogen 43 mg/dl Creatinine 7.00 mg/dl Est Creatinine Clear Calc Drug Dose 11.9 ml/min Estimated GFR () 6.6 Estimated GFR (Non- 5.7 BUN/Creatinine Ratio 6.2 Random Glucose 81 mg/dl Calcium Level 8.3 mg/dl Assessment and Plan Acute on Chronic Hypercarbic Respiratory Failure with COPD Exacerbation: STABLE - Initial treatment with BiPAP, IV Bicarb, and Emergent HD - At baseline - utilizing BiPAP at night and chronic continuous O2 - Pulmonology followed and S/O - recommendations for trach but patient declined Bilateral Leg Cellulitis: - One positive which is likely contaminant - Likely underlying insufficiency - ID Following - Completed 7 days IV Vancomycin and back on Doxycycline prophylaxis ESRD on Dialysis with S/P L AV Fistula Transposition 11/18: - Plans to convert to MWF routine - Nephrology following - appreciate assistance with dialysis T2DM: A1c 5.9 - Glycemic management DVT Prophylaxis: Heparin SC BID Disposition: - Due for dialysis tomorrow and hopeful D/C tomorrow Continued [facility] stay due to: multiple IV medications needed Discharge planning: home with home health
--- NOTE | 2016-11-19 14:02 | Pharmacy Progress Note ---
Glycemic Control Progress Note Date of Service Nov 19, 2016. Scope Glycemic Pharmacist consulted for glycemic control to write orders per [facility] inpatient glycemic control protocol. Objective Accuchecks BSG (last 24hrs): Test 11/18/16 16:21 11/18/16 20:17 11/18/16 21:36 11/19/16 00:07 Bedside Glucose 95 mg/dl (70-90) 100 mg/dl (70-90) 111 mg/dl (70-90) 95 mg/dl (70-90) Test 11/19/16 04:03 11/19/16 06:45 11/19/16 08:01 Bedside Glucose 85 mg/dl (70-90) 90 mg/dl (70-90) Random Glucose 81 mg/dl (70-99) HbA1c: Test 11/12/16 05:49 Hemoglobin A1c 5.9 % (4.5-5.6) H Recent Pertinent Medications The patient is currently receiving: * Basal insulin: Lantus 85 units SQ BID * Correctional Insulin: Novolog Correction per scale ACHS Goal Range: Low 110 mg/dL - High 140 mg/dL Correction Factor: 6 mg/dL/unit * Prandial insulin: Per carb ratio of 1 unit per 2 grams CHO consumed Outpatient Anti-Diabetic Meds Basal Insulin Bolus Insulin Assessment & Plan ASSESSMENT: * See previous notes for more background info, in short: * Pt receiving SQ basal bolus insulin regimen for hyperglycemia secondary to baseline DM (outpatient regimen on hold),stress/infection * Patient is currently receiving an average of 178 units of insulin per day ( decreased from 271 units the previous day d/t NPO status) * 170 units of basal insulin * 8 units of prandial/correctional insulin * BSGs ranging 95-179 mg/dl over the past 24hrs * Changes needed to insulin regimen: * AM Fasting BSG = 90 mg/dl. This is at goal for patient based on inpatient targets and co-morbidities. * Post-prandial BSGs below goal - loosen CF/CR PLAN FOR INPATIENT GLYCEMIC CONTROL: * Decrease Lantus per scale (70-75 units) SQ BID * 70 units for BSG less than 160, 75 units for BSG 160 mg/dL or more * Continuing correction factor to 9 mg/dl/unit * Continuing carb ratio to 1 unit per 3 grams CHO consumed * Continuing goal range to Low 110 mg/dL - High 140 mg/dL RECOMMENDATIONS FOR DISCHARGE: * Continue home regimen * Please note that the plan above was derived based on current level of insulin resistance and hospital stress. These recommendations are appropriate for inpatient admission only. Plan of care upon discharge will need to be reassessed to avoid potential outpatient hypo/hyperglycemia. Thank you.
--- NOTE | 2016-11-19 14:04 | Progress Note ---
Subjective Date of Service: Nov 19, 2016. Subjective Pt evaluation today including: conversation w/ patient, physical exam, chart review, lab review pt seen in followup, on doxy. had revision fistula yesterday, tolerated well. no f/c. no pain in legs. some swelling in hand, able to move digits, sensation intact. overall feeling better .no complaints on my exam. all remaining ros reviewed and are negative. Problem List Medical Problems: (1) Acute respiratory failure with hypoxia and hypercarbia Status: Acute (2) Altered mental status Status: Acute (3) Anasarca Status: Acute (4) Anasarca Status: Acute (5) Bilateral cellulitis of lower leg Status: Acute (6) Bilateral lower leg cellulitis Status: Acute (7) Cellulitis of leg Status: Acute (8) Change in mental status Status: Acute (9) Chronic renal failure Status: Acute (10) CO2 retention Status: Acute (11) Contusion of multiple sites Status: Acute (12) Dehydration Status: Acute (13) Dyspnea on exertion Status: Acute (14) Fall Status: Acute (15) Fall Status: Acute (16) Fever Status: Acute (17) Fever Status: Acute (18) Generalized weakness Status: Acute (19) Hypercarbia Status: Acute (20) Hyperkalemia Status: Acute (21) Hypokalemia Status: Acute (22) Hypoventilation Status: Acute (23) Hypoxemia Status: Acute (24) Hypoxia Status: Acute (25) Lumbar strain Status: Acute (26) Metabolic acidosis Status: Acute (27) Nail avulsion of toe Status: Acute (28) Obesity Status: Acute (29) Positive blood culture Status: Acute (30) Respiratory acidosis Status: Acute (31) Respiratory failure Status: Acute (32) Weakness Status: Acute (33) Weight gain Status: Acute (34) Wrist pain Status: Acute Objective Vital Signs Date Time Temp Pulse Resp B/P (MAP) Pulse Ox O2 Delivery O2 Flow Rate FiO2 11/19/16 11:21 88 16 92 Nasal Cannula 2.0 11/19/16 07:51 Nasal Cannula 2.0 11/19/16 07:19 36.7 89 18 107/66 (80) 100 Nasal Cannula 3.0 11/19/16 07:13 78 16 98 Nasal Cannula 2.0 11/19/16 00:00 BiPAP 9/19/17 23:29 36.9 89 20 127/64 (85) 94 CPAP 3.0 19/17 22:26 80 96 35 /19/17 19:12 36.9 91 18 96/58 (71) 100 Nasal Cannula 3.0 19/17 19:10 86 18 97 Nasal Cannula 2.0 /19/17 18:48 91 18 119/60 (79) 93 Nasal Cannula 3.0 19/17 18:20 93 Nasal Cannula 3.0 19/17 18:15 102 18 98/59 (72) 90 Nasal Cannula 3.0 19/17 17:36 98/52 19/17 17:35 92 16 100 19/17 17:35 91 16 19/17 17:31 92/45 19/17 17:30 95 20 19/17 17:30 95 20 100/50 99 19/17 17:26 97/48 19/17 17:25 92 19 100 19/17 17:25 92 19 19/17 17:21 96/47 19/17 17:20 91 18 19/17 17:20 91 18 100 19/17 17:19 91 17 19/17 17:19 90 17 100 19/17 17:16 89/47 19/17 17:14 91 15 19/17 17:14 89 15 100 19/17 17:12 92/49 19/17 17:11 89/47 19/17 17:09 93 18 19/17 17:09 95 18 99 19/17 17:06 105/45 19/17 17:05 97/46 19/17 17:04 91 17 19/17 17:04 91 17 19/17 17:01 88/43 19/17 16:59 91 18 97 /19/17 16:59 91 18 19/17 16:56 92/47 19/17 16:54 93 20 94 9/19/17 16:54 93 20 9/19/17 16:51 88/41 19/17 16:49 91 24 84/40 95 9/19/17 16:49 91 24 9/19/17 16:48 74/41 11/18/16 16:47 90 24 85/42 94 11/18/16 16:47 90 24 11/18/16 16:46 67/37 11/18/16 16:42 90 24 11/18/16 16:42 90 24 95 11/18/16 16:41 68/36 11/18/16 16:39 36.4 89 19 74/41 (49) 93 Nasal Cannula 3 11/18/16 16:37 94 24 94 11/18/16 16:37 94 24 11/18/16 16:36 74/41 11/18/16 16:34 89 18 93 11/18/16 16:34 89 18 11/18/16 16:31 87/42 11/18/16 16:29 89 19 92 11/18/16 16:29 90 19 11/18/16 16:26 83/39 11/18/16 16:24 91 19 11/18/16 16:24 91 19 93 11/18/16 16:21 70/45 11/18/16 16:20 82/41 11/18/16 16:19 92 25 93 11/18/16 16:19 93 25 11/18/16 16:16 79/45 11/18/16 16:14 92 19 93 11/18/16 16:14 92 19 11/18/16 16:12 90/41 11/18/16 16:11 69/49 11/18/16 16:10 84/42 11/18/16 16:09 104 91 11/18/16 16:09 36.1 95 14 84/42 (63) 92 Nasal Cannula 2 11/18/16 16:09 104 Physical Exam General Appearance: WD/WN, no apparent distress Eyes: normal inspection, EOMI Neck: supple Respiratory/Chest: lungs clear, normal breath sounds, no respiratory distress Cardiovascular: regular rate, rhythm Abdomen: soft Extremities: + pedal edema, + swelling 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: alert, oriented x 3 Skin: normal color Laboratory Results Item Value Date Time Blood Culture - Final Complete 11/11/16 1912 Blood NO GROWTH Blood Culture - Final Complete 11/13/16 1402 Blood NO GROWTH Blood Culture - Final Complete 11/13/16 1412 Blood NO GROWTH Last 24 Hours Test 11/18/16 16:21 11/18/16 20:17 11/18/16 21:36 11/19/16 00:07 Bedside Glucose 95 mg/dl 100 mg/dl 111 mg/dl 95 mg/dl Test 11/19/16 04:03 11/19/16 06:45 11/19/16 08:01 Bedside Glucose 85 mg/dl 90 mg/dl Sodium Level 132 mmol/L Potassium Level 4.2 mmol/L Chloride Level 100 mmol/L Carbon Dioxide Level 23 mmol/L Anion Gap 9.0 mmol/L Blood Urea Nitrogen 43 mg/dl Creatinine 7.00 mg/dl Est Creatinine Clear Calc Drug Dose 11.9 ml/min Estimated GFR () 6.6 Estimated GFR (Non- 5.7 BUN/Creatinine Ratio 6.2 Random Glucose 81 mg/dl Calcium Level 8.3 mg/dl Assessment and Plan (1) Positive blood culture Assessment & Plan: likely contaminant, Blood cultures negative (2) Cellulitis of leg Assessment & Plan: can continue with suppressive doxy. ok for d/c when otherwise stable. Continued [facility] stay due to: multiple IV medications needed Discharge planning: home with home health
--- NOTE | 2016-11-19 14:45 | Progress Note ---
Progress Note Date of Service: Nov 19, 2016. Subjective 61 yo f with multiple medical problems, POD #1 after LUE cephalic v AVF transposition, seen in f/u today. Pt admits pain and numbness and swelling of LUE. Denies any other new complaints. Problem List Medical Problems: (1) Acute respiratory failure with hypoxia and hypercarbia Status: Acute (2) Altered mental status Status: Acute (3) Anasarca Status: Acute (4) Anasarca Status: Acute (5) Bilateral cellulitis of lower leg Status: Acute (6) Bilateral lower leg cellulitis Status: Acute (7) Cellulitis of leg Status: Acute (8) Change in mental status Status: Acute (9) Chronic renal failure Status: Acute (10) CO2 retention Status: Acute (11) Contusion of multiple sites Status: Acute (12) Dehydration Status: Acute (13) Dyspnea on exertion Status: Acute (14) Fall Status: Acute (15) Fall Status: Acute (16) Fever Status: Acute (17) Fever Status: Acute (18) Generalized weakness Status: Acute (19) Hypercarbia Status: Acute (20) Hyperkalemia Status: Acute (21) Hypokalemia Status: Acute (22) Hypoventilation Status: Acute (23) Hypoxemia Status: Acute (24) Hypoxia Status: Acute (25) Lumbar strain Status: Acute (26) Metabolic acidosis Status: Acute (27) Nail avulsion of toe Status: Acute (28) Obesity Status: Acute (29) Positive blood culture Status: Acute (30) Respiratory acidosis Status: Acute (31) Respiratory failure Status: Acute (32) Weakness Status: Acute (33) Weight gain Status: Acute (34) Wrist pain Status: Acute Objective Vital Signs Vital Signs Past 12 Hours Date Time Temp Pulse Resp B/P (MAP) Pulse Ox O2 Delivery O2 Flow Rate FiO2 11/19/16 14:29 36.7 81 20 127/64 (85) 92 Nasal Cannula 2.0 11/19/16 11:21 88 16 92 Nasal Cannula 2.0 11/19/16 07:51 Nasal Cannula 2.0 11/19/16 07:19 36.7 89 18 107/66 (80) 100 Nasal Cannula 3.0 11/19/16 07:13 78 16 98 Nasal Cannula 2.0 Exam CONST: A&O x4, NAD, morbidly obese, chronically ill appearing female EXT: LUE incision C/D/I with susan. + local ecchymosis, tenderness, edema. + thrill/bruit over LUE AVF. + distal pulse, hand warm, fingers brisk cap refill. Intake & Output 8-Hour Column 11/19/16 11/20/16 11/20/16 16:00 00:00 08:00 Intake Total 550 ml Balance 550 ml 24-Hour Column 11/20/16 08:00 Intake Total 550 ml Balance 550 ml Laboratory and Microbiology Results Past 24 Hours Test 11/18/16 16:21 11/18/16 20:17 11/18/16 21:36 11/19/16 00:07 Range/Units Bedside Glucose 95 100 111 95 70-90 mg/dl Test 11/19/16 04:03 11/19/16 06:45 11/19/16 08:01 Range/Units Bedside Glucose 85 90 70-90 mg/dl Sodium Level 132 136-145 mmol/L Potassium Level 4.2 3.5-5.1 mmol/L Chloride Level 100 98-107 mmol/L Carbon Dioxide Level 23 21-32 mmol/L Anion Gap 9.0 3-11 mmol/L Blood Urea Nitrogen 43 7-18 mg/dl Creatinine 7.00 0.60-1.20 mg/dl Est Creatinine Clear Calc Drug Dose 11.9 ml/min Estimated GFR () 6.6 Estimated GFR (Non- 5.7 BUN/Creatinine Ratio 6.2 10-20 Random Glucose 81 70-99 mg/dl Calcium Level 8.3 8.5-10.1 mg/dl ASSESSMENT and PLAN: s/p LUE cephalic v AVF transposition ESRD on HD Pt doing well post op. Ok for d/c from vascular standpoint. Will see in office in 2 weeks for staple removal. Please call if needed otherwise.
[2016-11-20] VITALS (8 sets, daily range): BP systolic 107–116; BP diastolic 54–65; PULSE 62–93; TEMP 36.6–36.8; O2SAT 90–97
[2016-11-20] MEDS: HYDROCODONE/ACETAMOPHEN 5/325MG TAB PO PRN ×3 (02:15→19:06)
[2016-11-20] MEDS: INSULIN ASPART 100 UNITS/ML 3 ML PEN SC SCH ×6 (04:00→21:34)
[2016-11-20] MEDS: CALCIUM ACETATE 667MG GELCAP PO SCH ×4 (06:26→21:31)
[2016-11-20] MEDS: ALBUT/IPRATROP 3MG/0.5MG NEB 3 ML VIAL INH SCH ×4 (07:36→20:10)
[2016-11-20] MEDS: HEPARIN SOD 5000 UNIT/0.5 ML CARP SQ SCH ×2 (08:08→21:35)
[2016-11-20] MEDS: SILVER SULFADIAZINE 1% CR 50 GM JAR EXT SCH (08:11)
[2016-11-20] MEDS: FLUTICASONE/SALMETEROL (ADVAIR) 500/50 INH 14 PUFF INH SCH ×2 (08:11→19:40)
[2016-11-20] MEDS: KETOTIFEN FUMARATE (ZADITOR) 0.025% 5 ML BTL OPB SCH ×2 (08:11→19:40)
[2016-11-20] MEDS: TIOTROPIUM BROMIDE 5 PUFF/90 MCG INH INH SCH (08:12)
[2016-11-20] MEDS: INSULIN GLARGINE SC SCH ×2 (08:48→21:35)
[2016-11-20] MEDS ORDERED: LYR50 PO (08:51)
--- NOTE | 2016-11-20 09:07 | Discharge Instructions ---
Discharge Instructions Date of Service Nov 20, 2016. Admission Reason for Admission: Acidosis, Co2 Retension, Ams Discharge Discharge Diagnosis / Problem: Hypercarbia and Cellulitis Discharge Goals Goal(s): Decrease discomfort, Improve function, Increase independence Activity Recommendations Activity Limitations: resume your previous activity . Instructions / Follow-Up Instructions / Follow-Up Acute on Chronic Hypercarbic Respiratory Failure with COPD Exacerbation: - Continue your oxygen and BiPAP at night. Recommend complete compliance with this to help adequately get oxygen into your body Bilateral Leg Cellulitis: - You completed antibiotics in the hospital and now will continue your daily Doxycycline ESRD on Dialysis with S/P L AV Fistula Transposition 11/18: - Follow-up with Dr. Thapa in 14 days to have the susan removed and to monitor your fistula - Monitor your arm for increased pain, redness, drainage or other signs of infection Current Hospital Diet Patient's current hospital diet: Diabetes Type 2 Diet, AHA Diet (Heart Healthy) , Renal Diet Discharge Diet Recommended Diet: AHA Diet (Heart Healthy), Diabetes Type 2 Diet, Renal Diet Procedures Procedures Performed: Cephalic Vein Transposition Left Upper Arteriovenous Fistula Pending Studies Studies pending at discharge: no Laboratory Results Hemoglobin A1c Test 11/12/16 05:49 Range/Units Estimated Average Glucose 123 mg/dl Hemoglobin A1c 5.9 H 4.5-5.6 % Medical Emergencies . Who to Call and When: Medical Emergencies: If at any time you feel your situation is an emergency, please call 911 immediately. . Non-Emergent Contact Non-Emergency issues call your: Primary Care Provider Call Non-Emergent contact if: you have a fever, your pain is concerning you, you have any medication questions . . "Provider Documentation" section prepared by Brooklynn Hendrickson. . VTE Core Measure Inpt VTE Proph given/why not?: Unfractionated heparin SQ
[2016-11-20] MEDS: TOCOPHERYL, DL-ALPHA 400 INTER.UNIT CAP PO SCH (10:21)
[2016-11-20] MEDS: NEPHROCAPS PO SCH (10:21)
[2016-11-20] MEDS: CEROVITE ADV FORMULA TAB PO SCH (10:21)
[2016-11-20] MEDS: FAMOTIDINE 20 MG TAB PO SCH (10:21)
[2016-11-20] MEDS: PANTOprazole SOD 40 MG TAB PO SCH (10:21)
[2016-11-20] MEDS: DOXYCYCLINE HYCLATE 100 MG CAP PO SCH ×2 (10:22→19:40)
[2016-11-20] MEDS: ALLOPURINOL 100 MG TAB PO SCH (10:22)
[2016-11-20] MEDS: PYRIDOXINE HCL 50 MG TAB PO SCH (10:22)
[2016-11-20] MEDS: ATORVASTATIN 40 MG TAB PO SCH (10:22)
[2016-11-20] MEDS: CHOLECALCIFEROL 1000 INTER.UNIT TAB PO SCH (10:22)
[2016-11-20] MEDS: ASCORBIC ACID 500 MG TAB PO SCH (10:26)
[2016-11-20] MEDS: ONDANSETRON 4MG OD TAB PO PRN ×2 (10:26→16:51)
[2016-11-20] MEDS: PREGABALIN 50 MG CAP PO SCH (10:26)
[2016-11-20 10:36] LABS: BUN/CREATININE RATIO 6.5 (10-20); CALCIUM 8.3 mg/dl (8.5-10.1); CREATININE 8.9 mg/dl (0.60-1.20); POTASSIUM 4.6 mmol/L (3.5-5.1)
--- NOTE | 2016-11-20 12:03 | Pharmacy Progress Note ---
Glycemic: Assessment & Plan Date of Service Nov 20, 2016. Assessment & Plan The patient is currently receiving 221 units of insulin per day. BSGs ranging 81 - 251 mg/dl over the past 24hrs. * Basal insulin: Lantus per scale BID (70 units QAM + 75 units QPM on 11/19) * Correctional Insulin: Novolog Correction per scale ACHS Goal Range: Low 110 mg/dL - High 140 mg/dL Correction Factor: 9 mg/dL/unit * Prandial insulin: Per carb ratio of 1 unit per 3 grams CHO consumed Changes needed to insulin regimen: * Fasting BSG of 136 mg/dL is at goal but trending upward - likely due to decreased basal insulin doses over the past 48 hours since patient was NPO and steroids were discontinued. Increase Lantus. * Prandial BSGs are near goal. CF/CR was loosened yesterday due to concerns for overcorrection. Will tighten back to 6/2 since diet/carb intake is increasing. PLAN FOR INPATIENT GLYCEMIC CONTROL: * Lantus per scale (80-85 units) SQ BID * 80 units for BSG less than 110, 85 units for BSG 110 mg/dL or more * Tighten correction factor to 6 mg/dl/unit * Tighten carb ratio to 1 unit per 2 grams CHO consumed * Continuing goal range to Low 110 mg/dL - High 140 mg/dL RECOMMENDATIONS FOR DISCHARGE: * Continue home regimen BSGs continue to improve, no changes needed to inpatient regimen at this time. Pharmacy will continue to monitor patient daily and write orders per [facility] inpatient glycemic control protocol. Thanks. * Please note that the plan above was derived based on current level of insulin resistance and hospital stress. These recommendations are appropriate for inpatient admission only. Plan of care upon discharge will need to be reassessed to avoid potential outpatient hypo/hyperglycemia.
--- NOTE | 2016-11-20 13:07 | Nephrology Progress Note ---
Nephrology Progress Note Date of Service Nov 20, 2016. Chief Complaint Follow-up for end-stage renal disease. Subjective Jazmin Was seen and examined in her room this morning. She was complaining of back pain, headache, pain in her left arm at the incision area. Overall feeling poorly and refused to go for dialysis this morning. Denies shortness of breath or chest pain. Blood pressure, electrolyte acceptable. Review of Systems A complete review of systems was performed. Pertinent positives are noted above. All other systems are negative. Vital Signs Last 8 Hrs Date Time Temp Pulse Resp B/P (MAP) Pulse Ox O2 Delivery O2 Flow Rate FiO2 11/20/16 11:29 82 16 93 Nasal Cannula 2.0 11/20/16 07:58 Nasal Cannula 11/20/16 07:36 62 16 94 Nasal Cannula 2.0 11/20/16 07:18 36.6 84 16 116/65 (82) 97 Nasal Cannula 2.5 Last Recorded Weight Weight (Kilograms): 148.000 Physical Exam GENERAL: Middle-aged female AAA x 3, morbidly obese, not in any distress. NECK: Supple, no JVD. RESPIRATORY: Normal breathing efforts, no accessory muscle use, clear to auscultation bilaterally, no wheezes or rales. CARDIOVASCULAR: S1, S2 normal, rate rhythm regular. EXTREMITY: Edema, erythema and warmth of bilateral lower extremity with superficial skin break on the right lower extremity. Left upper extremity AVF incision dressing dry but hand swollen. NEURO: speech fluent. PSYCHIATRY: Normal mood and judgment. Family History Cancer Diabetes mellitus Gallbladder disease Heart disease Lung disease Negative for CKD / ESRD Social History Smoking Status: Former smoker Drug Use: none Marital Status: Housing Status: lives with family Occupation: unemployed . Lives at home. Former smoker Laboratory Results Past 24 Hours 11/20/16 09:37 Test 11/20/16 03:53 11/20/16 09:37 Bedside Glucose 147 mg/dl (70-90) Anion Gap 11.0 mmol/L (3-11) Est Creatinine Clear Calc Drug Dose 9.4 ml/min Estimated GFR () 4.9 Estimated GFR (Non- 4.3 BUN/Creatinine Ratio 6.5 (10-20) Calcium Level 8.3 mg/dl (8.5-10.1) Allergies Coded Allergies: Daptomycin (Verified Allergy, Intermediate, HIVES/ITCHING, 11/18/16) itching Sulfamethoxazole w/Trimethoprim (Verified Allergy, Intermediate, RASH, ) Iodine (Verified Allergy, Unknown, 11/11/16) Shellfish (Verified Allergy, Unknown, 11/11/16) Codeine (Verified Adverse Reaction, Mild, NAUSEA, 11/17/16) has tolerated morphine Uncoded Allergies: kristina wipes (Allergy, Severe, red rash, excoriation, 09/19/16) comfort baths (Adverse Reaction, Severe, rash, "breaks out all over", ) Medications Current Inpatient Medications Medications (Trade) Dose Ordered Sig/Duyen Route Start Time Stop Time Status Last Admin Dose Admin Albuterol/ Ipratropium (Duoneb) 3 ml QIDR INH 11/11/16 16:00 12/11/16 15:59 11/20/16 11:29 3 ML Allopurinol (Zyloprim Tab) 100 mg DAILY PO 11/12/16 09:00 12/12/16 08:59 11/20/16 10:22 100 MG Atorvastatin Calcium (Lipitor Tab) 40 mg DAILY PO 11/12/16 09:00 12/12/16 08:59 11/20/16 10:22 40 MG Vitamin B Complex/ Vit C/Folic Acid (Nephrocaps) 1 cap QAM PO 11/12/16 09:00 12/12/16 08:59 11/20/16 10:21 1 CAP Calcium Acetate (Phoslo Cap) 667 mg ACHS PO 11/11/16 16:00 12/11/16 15:59 11/20/16 10:27 667 MG Cholecalciferol (Vitamin D Tab) 1,000 inter.unit DAILY PO 11/12/16 09:00 12/12/16 08:59 11/20/16 10:22 1,000 INTER.UNIT Famotidine (Pepcid Tab) 20 mg DAILY PO 11/12/16 09:00 12/12/16 08:59 11/20/16 10:21 20 MG Salmeterol Xinafoate/ Fluticasone (Advair Diskus 500/50 Inh) 1 puff BID INH 11/11/16 21:00 12/11/16 20:59 11/20/16 08:11 1 PUFF Acetaminophen/ Hydrocodone Bitart ([place] 5/325 Tab) 1 tab Q6H PRN PO 11/11/16 15:30 11/25/16 15:29 11/20/16 10:26 1 TAB Metoprolol Succinate (Toprol Xl Tab) 150 mg SuMoWeFr@0900 PO 11/12/16 09:00 12/12/16 08:59 11/19/16 09:00 150 MG Multivitamins/ Minerals (Multivitamin W/ Minerals Tab) 1 tab DAILY PO 11/12/16 09:00 12/12/16 08:59 11/20/16 10:21 1 TAB Pantoprazole Sodium (Protonix Tab) 40 mg DAILY PO 11/12/16 09:00 12/12/16 08:59 11/20/16 10:21 40 MG Pyridoxine HCl (Vitamin B-6 Tab) 200 mg DAILY PO 11/12/16 09:00 12/12/16 08:59 11/20/16 10:22 200 MG Silver Sulfadiazine (Silvadene 1% Crm 50GM Jar) 1 appln DAILY EXT 11/12/16 09:00 12/12/16 08:59 11/20/16 08:11 1 APPLN Tiotropium [place] (Spiriva Handihaler Inhaler) 1 puff DAILY INH 11/12/16 09:00 12/12/16 08:59 11/20/16 08:12 1 PUFF Ascorbic Acid (Vitamin C Tab) 1,000 mg DAILY PO 11/12/16 09:00 12/12/16 08:59 11/20/16 10:26 1,000 MG oh-Btxrq-Vujcngzigs Acetate (Vitamin E Cap) 800 interunit DAILY PO 11/12/16 09:00 12/12/16 08:59 11/20/16 10:21 800 INTERUNIT Miscellaneous Information (Consult Glycemic Management Pharmacy) 1 ea UD PRN N/A 11/11/16 16:00 12/11/16 15:59 Heparin Sodium (Porcine) (Heparin Sq 5000 Unit/0.5ml) 5,000 unit Q12 SQ 11/11/16 21:00 12/11/16 20:59 11/19/16 20:24 5,000 UNIT Hydromorphone HCl (Dilaudid Inj) 1 mg Q8H PRN IV 11/11/16 15:30 11/25/16 15:29 11/11/16 17:27 1 MG Pregabalin (Lyrica Cap) 50 mg DAILY PO 11/12/16 09:00 12/12/16 08:59 11/20/16 10:26 50 MG Miconazole Nitrate (Desenex Powder) 1 appln PRN PRN EXT 11/11/16 17:15 12/11/16 17:14 11/16/16 09:10 1 APPLN Doxycycline Hyclate (Vibramycin Cap) 100 mg BID PO 11/11/16 21:00 12/11/16 20:59 Future hold 11/20/16 10:22 100 MG Insulin Aspart (novoLOG ASPART) SLIDING SCALE ACHS SC 11/12/16 11:00 12/12/16 10:59 11/20/16 08:48 45 UNITS Glucose (Glucose 40% Gel) 15-30 GRAMS 15 GRAMS... UD PRN PO 11/12/16 14:15 12/12/16 14:14 Glucose (Glucose Chew Tab) 4-8 Tablets 4 Tabl... UD PRN PO 11/12/16 14:15 12/12/16 14:14 Dextrose (Dextrose 50% 50ML Syringe) 25-50ML OF 50% DW IV FOR... UD PRN IV 11/12/16 14:15 12/12/16 14:14 Glucagon (Glucagon Inj) 1 mg UD PRN SQ 11/12/16 14:15 12/12/16 14:14 Insulin Aspart (novoLOG ASPART) SLIDING SCALE 0000,0400 SC 11/13/16 00:00 11/21/16 05:00 11/18/16 04:34 1 UNITS Ketotifen Fumarate (Zaditor 0.025% Op Soln) 1 drops BID OPB 11/16/16 20:13 12/16/16 20:12 11/20/16 08:11 1 DROPS Insulin Glargine (Lantus Vial) SEE PROTOCOL TEXT BID SC 11/17/16 20:00 12/17/16 19:59 11/20/16 08:48 85 UNITS Ondansetron HCl (Zofran Odt) 4 mg Q6H PRN PO 11/19/16 11:30 12/19/16 11:29 11/20/16 10:26 4 MG Impression (1) ESRD on hemodialysis (2) Hypercapnic respiratory failure (3) Obesity hypoventilation syndrome (4) Cellulitis of leg Mrs. Gaytan has recurrent hypercapnic respiratory failure despite adherence to NIPPV at home. Her CXR is concerning for a RLL infiltrate. Patient has dry cracked skin on her feet and bilateral LE cellulitis. She has ESRD due to cardiorenal syndrome and requires TTS HD (4.5hr F-180NR Qb300 Qd A1.5 3K 2.5 Ca EDW 137.7 kg Heparin 2000 load w/ 1000 units hourly). Had AVF transposition on 11/18/16. [facility] under care of Dr. Leblanc, starting after discharge, tentatively plan to have first Rx on 11/21/16 Recommendations -- Due for dialysis today however patient refusing as she is overall not feeling well. Currently electrolyte, blood pressure acceptable -- will schedule for dialysis tomorrow morning and then she can be discharged, advise patient to limit fluid intake as she is at risk for volume overload and shortness of breath since she is not having dialysis today as her regular schedule and during last dialysis 2 days ago UF was only 1.7 liter. -- IJ THC placed 07/25/16. L upper arm AVF created 08/19/[address] Thapa,had transposition on 11/18/16 -- Will monitor H&H and provide SAMARA as needed to keep Hgb 10 - 11 -- continue on Nephrocaps and phosphate binder with meal. Will follow
--- NOTE | 2016-11-20 14:15 | Hospitalist Progress Note ---
Hospitalist Progress Note Date of Service Nov 20, 2016. Subjective Pt evaluation today including: conversation w/ patient, physical exam, chart review, lab review, review of studies, review of inpatient medication list Patient seen and evaluated. No acute events overnight. Stating she hurts all over today, mostly in her neck and back but continues to have arm pain but improving. Breathing at baseline. Doesn't want to do dialysis today and would like to hold off until Thursday when she converts to MWF schedule states services could not be set up until tomorrow and doesn't feel that he can take care of her today by himself. Constitutional: No fever, No chills Respiratory: No shortness of breath Cardiovascular: No chest pain Abdomen: No pain, No nausea, No vomiting, No diarrhea, No constipation Musculoskeletal: + joint pain (neck and back), + swelling (L arm and bilateral lower extremities) Female : No dysuria Heme: No abnormal bleeding/bruising Medications Current Inpatient Medications Medications (Trade) Dose Ordered Sig/Duyen Route Start Time Stop Time Status Last Admin Dose Admin Albuterol/ Ipratropium (Duoneb) 3 ml QIDR INH 11/11/16 16:00 12/11/16 15:59 11/20/16 11:29 3 ML Allopurinol (Zyloprim Tab) 100 mg DAILY PO 11/12/16 09:00 12/12/16 08:59 11/20/16 10:22 100 MG Atorvastatin Calcium (Lipitor Tab) 40 mg DAILY PO 11/12/16 09:00 12/12/16 08:59 11/20/16 10:22 40 MG Vitamin B Complex/ Vit C/Folic Acid (Nephrocaps) 1 cap QAM PO 11/12/16 09:00 12/12/16 08:59 11/20/16 10:21 1 CAP Calcium Acetate (Phoslo Cap) 667 mg ACHS PO 11/11/16 16:00 12/11/16 15:59 11/20/16 10:27 667 MG Cholecalciferol (Vitamin D Tab) 1,000 inter.unit DAILY PO 11/12/16 09:00 12/12/16 08:59 11/20/16 10:22 1,000 INTER.UNIT Famotidine (Pepcid Tab) 20 mg DAILY PO 11/12/16 09:00 12/12/16 08:59 11/20/16 10:21 20 MG Salmeterol Xinafoate/ Fluticasone (Advair Diskus 500/50 Inh) 1 puff BID INH 11/11/16 21:00 12/11/16 20:59 11/20/16 08:11 1 PUFF Acetaminophen/ Hydrocodone Bitart ([place] 5/325 Tab) 1 tab Q6H PRN PO 11/11/16 15:30 11/25/16 15:29 11/20/16 10:26 1 TAB Metoprolol Succinate (Toprol Xl Tab) 150 mg SuMoWeFr@0900 PO 11/12/16 09:00 12/12/16 08:59 11/19/16 09:00 150 MG Multivitamins/ Minerals (Multivitamin W/ Minerals Tab) 1 tab DAILY PO 11/12/16 09:00 12/12/16 08:59 11/20/16 10:21 1 TAB Pantoprazole Sodium (Protonix Tab) 40 mg DAILY PO 11/12/16 09:00 12/12/16 08:59 11/20/16 10:21 40 MG Pyridoxine HCl (Vitamin B-6 Tab) 200 mg DAILY PO 11/12/16 09:00 12/12/16 08:59 11/20/16 10:22 200 MG Silver Sulfadiazine (Silvadene 1% Crm 50GM Jar) 1 appln DAILY EXT 11/12/16 09:00 12/12/16 08:59 11/20/16 08:11 1 APPLN Tiotropium [place] (Spiriva Handihaler Inhaler) 1 puff DAILY INH 11/12/16 09:00 12/12/16 08:59 11/20/16 08:12 1 PUFF Ascorbic Acid (Vitamin C Tab) 1,000 mg DAILY PO 11/12/16 09:00 12/12/16 08:59 11/20/16 10:26 1,000 MG li-Tjnvl-Kbqusmnjyp Acetate (Vitamin E Cap) 800 interunit DAILY PO 11/12/16 09:00 12/12/16 08:59 11/20/16 10:21 800 INTERUNIT Miscellaneous Information (Consult Glycemic Management Pharmacy) 1 ea UD PRN N/A 11/11/16 16:00 12/11/16 15:59 Heparin Sodium (Porcine) (Heparin Sq 5000 Unit/0.5ml) 5,000 unit Q12 SQ 11/11/16 21:00 12/11/16 20:59 11/19/16 20:24 5,000 UNIT Hydromorphone HCl (Dilaudid Inj) 1 mg Q8H PRN IV 11/11/16 15:30 11/25/16 15:29 11/11/16 17:27 1 MG Pregabalin (Lyrica Cap) 50 mg DAILY PO 11/12/16 09:00 12/12/16 08:59 11/20/16 10:26 50 MG Miconazole Nitrate (Desenex Powder) 1 appln PRN PRN EXT 11/11/16 17:15 12/11/16 17:14 11/16/16 09:10 1 APPLN Doxycycline Hyclate (Vibramycin Cap) 100 mg BID PO 11/11/16 21:00 12/11/16 20:59 Future hold 11/20/16 10:22 100 MG Insulin Aspart (novoLOG ASPART) SLIDING SCALE ACHS SC 11/12/16 11:00 12/12/16 10:59 11/20/16 13:24 13 UNITS Glucose (Glucose 40% Gel) 15-30 GRAMS 15 GRAMS... UD PRN PO 11/12/16 14:15 12/12/16 14:14 Glucose (Glucose Chew Tab) 4-8 Tablets 4 Tabl... UD PRN PO 11/12/16 14:15 12/12/16 14:14 Dextrose (Dextrose 50% 50ML Syringe) 25-50ML OF 50% DW IV FOR... UD PRN IV 11/12/16 14:15 12/12/16 14:14 Glucagon (Glucagon Inj) 1 mg UD PRN SQ 11/12/16 14:15 12/12/16 14:14 Insulin Aspart (novoLOG ASPART) SLIDING SCALE 0000,0400 SC 11/13/16 00:00 11/21/16 05:00 11/18/16 04:34 1 UNITS Ketotifen Fumarate (Zaditor 0.025% Op Soln) 1 drops BID OPB 11/16/16 20:13 12/16/16 20:12 11/20/16 08:11 1 DROPS Insulin Glargine (Lantus Vial) SEE PROTOCOL TEXT BID SC 11/17/16 20:00 12/17/16 19:59 11/20/16 08:48 85 UNITS Ondansetron HCl (Zofran Odt) 4 mg Q6H PRN PO 11/19/16 11:30 12/19/16 11:29 11/20/16 10:26 4 MG Objective Vital Signs Date Time Temp Pulse Resp B/P (MAP) Pulse Ox O2 Delivery O2 Flow Rate FiO2 11/20/16 11:29 82 16 93 Nasal Cannula 2.0 11/20/16 07:58 Nasal Cannula 11/20/16 07:36 62 16 94 Nasal Cannula 2.0 11/20/16 07:18 36.6 84 16 116/65 (82) 97 Nasal Cannula 2.5 11/20/16 00:05 Nasal Cannula 11/19/16 23:30 36.8 82 18 116/73 (87) 100 BiPAP 11/19/16 23:22 77 95 35 11/19/16 20:05 Nasal Cannula 11/19/16 19:48 92 16 96 Nasal Cannula 2.0 11/19/16 15:58 Nasal Cannula 11/19/16 15:17 81 16 96 Nasal Cannula 2.0 11/19/16 14:29 36.7 81 20 127/64 (85) 92 Nasal Cannula 2.0 Physical Exam General Appearance: no apparent distress, + obese Eyes: sclerae normal ENT: hearing grossly normal Respiratory/Chest: lungs clear, normal breath sounds, no respiratory distress, no accessory muscle use Cardiovascular: regular rate, rhythm, no gallop, no murmur Abdomen: normal bowel sounds, non tender, soft Extremities: no calf tenderness, + swelling (bilateral lower extremities and LUE; LUE pulses 2+ with immediate cap refill; ) 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: alert, oriented x 3 Skin: normal color, warm/dry Laboratory Results Last 24 Hours Test 11/19/16 16:28 11/19/16 19:51 11/19/16 23:56 11/20/16 03:53 Bedside Glucose 140 mg/dl 251 mg/dl 156 mg/dl 147 mg/dl Test 11/20/16 09:37 Sodium Level 132 mmol/L Potassium Level 4.6 mmol/L Chloride Level 100 mmol/L Carbon Dioxide Level 21 mmol/L Anion Gap 11.0 mmol/L Blood Urea Nitrogen 58 mg/dl Creatinine 8.90 mg/dl Est Creatinine Clear Calc Drug Dose 9.4 ml/min Estimated GFR () 4.9 Estimated GFR (Non- 4.3 BUN/Creatinine Ratio 6.5 Random Glucose 136 mg/dl Calcium Level 8.3 mg/dl Assessment and Plan Acute on Chronic Hypercarbic Respiratory Failure with COPD Exacerbation: STABLE - Initial treatment with BiPAP, IV Bicarb, and Emergent HD - At baseline - utilizing BiPAP at night and chronic continuous O2 - Pulmonology followed and S/O - recommendations for trach but patient declined Bilateral Leg Cellulitis: RESOLVED - One positive BCx which is likely contaminant - Likely underlying insufficiency - ID Following - Completed 7 days IV Vancomycin and back on Doxycycline prophylaxis ESRD on Dialysis with S/P L AV Fistula Transposition 11/18: - Plans to convert to MWF routine - Nephrology following - appreciate assistance with dialysis T2DM: A1c 5.9 - Glycemic management DVT Prophylaxis: Heparin SC BID Disposition: - Will have dialysis tomorrow and DC home after Discharge planning: home with home health
[2016-11-20] MEDS: HYDROmorphone INJ 1 MG/ML SYR IV PRN ×2 (14:32→22:52)
[2016-11-21] VITALS (24 sets, daily range): BP systolic 86–154; BP diastolic 42–72; PULSE 80–118; TEMP 36.6–37.2; O2SAT 90–97
[2016-11-21] MEDS: INSULIN ASPART 100 UNITS/ML 3 ML PEN SC SCH ×5 (04:00→21:16)
[2016-11-21] MEDS: HYDROCODONE/ACETAMOPHEN 5/325MG TAB PO PRN ×3 (04:13→21:14)
[2016-11-21] MEDS: CALCIUM ACETATE 667MG GELCAP PO SCH ×4 (06:21→21:16)
[2016-11-21] MEDS: HYDROmorphone INJ 1 MG/ML SYR IV PRN ×2 (06:22→17:06)
[2016-11-21] MEDS: ALBUT/IPRATROP 3MG/0.5MG NEB 3 ML VIAL INH SCH ×4 (06:55→19:03)
[2016-11-21 07:44] LABS: HEMATOCRIT 31.6 % (37-47); MEAN CELL VOLUME 102.9 fL (80-100); MEAN CORPUSCULAR HEMOGLOBIN 31.6 pg (25-34); MEAN CORPUSCULAR HGB CONC 30.7 g/dl (32-36); MEAN PLATELET VOLUME 10.1 fL (7.4-10.4); PLATELET COUNT 163 K/uL (130-400); RED BLOOD COUNT 3.07 M/uL (4.2-5.4); WHITE BLOOD COUNT 8.54 K/uL (4.8-10.8)
[2016-11-21] MEDS: FLUTICASONE/SALMETEROL (ADVAIR) 500/50 INH 14 PUFF INH SCH ×2 (07:47→21:15)
[2016-11-21] MEDS: SILVER SULFADIAZINE 1% CR 50 GM JAR EXT SCH (07:47)
[2016-11-21] MEDS: KETOTIFEN FUMARATE (ZADITOR) 0.025% 5 ML BTL OPB SCH ×2 (07:47→21:15)
[2016-11-21] MEDS: TIOTROPIUM BROMIDE 5 PUFF/90 MCG INH INH SCH (07:48)
[2016-11-21] MEDS: INSULIN GLARGINE SC SCH ×2 (07:56→20:00)
[2016-11-21 08:34] LABS: BUN/CREATININE RATIO 6.6 (10-20); CALCIUM 8.4 mg/dl (8.5-10.1)
[2016-11-21] MEDS: METOPROLOL SUCC 50MG EXT REL TAB PO SCH (09:00)
[2016-11-21] MEDS: HEPARIN SOD 5000 UNIT/0.5 ML CARP SQ SCH ×2 (09:00→21:19)
[2016-11-21] MEDS ORDERED: EPOETIN ALFA 4000 UNITS/ML VIAL IV SCH (09:30)
[2016-11-21] MEDS: LIDODERM (LIDOCAINE) PATCH 5% TD SCH (09:31)
[2016-11-21] MEDS: ALLOPURINOL 100 MG TAB PO SCH (14:30)
[2016-11-21] MEDS: TOCOPHERYL, DL-ALPHA 400 INTER.UNIT CAP PO SCH (14:30)
[2016-11-21] MEDS: PYRIDOXINE HCL 50 MG TAB PO SCH (14:30)
[2016-11-21] MEDS: ATORVASTATIN 40 MG TAB PO SCH (14:30)
[2016-11-21] MEDS: NEPHROCAPS PO SCH (14:31)
[2016-11-21] MEDS: DOXYCYCLINE HYCLATE 100 MG CAP PO SCH ×2 (14:31→21:16)
[2016-11-21] MEDS: CHOLECALCIFEROL 1000 INTER.UNIT TAB PO SCH (14:31)
[2016-11-21] MEDS: PANTOprazole SOD 40 MG TAB PO SCH (14:31)
[2016-11-21] MEDS: CEROVITE ADV FORMULA TAB PO SCH (14:31)
[2016-11-21] MEDS: ASCORBIC ACID 500 MG TAB PO SCH (14:32)
[2016-11-21] MEDS: FAMOTIDINE 20 MG TAB PO SCH (14:32)
[2016-11-21] MEDS: PREGABALIN 50 MG CAP PO SCH (14:36)
--- NOTE | 2016-11-21 14:55 | Dialysis Progress Note ---
Hemodialysis Note Date of Service Nov 21, 2016. Chief Complaint Follow-up for end-stage renal disease. Subjective Pt was seen and examined. Has been having pain in back and neck, overall feeling poorly. BP, stable. Review of Systems A complete review of systems was performed. Pertinent positives are noted above. All other systems are negative. Vital Signs Last 8 Hrs Date Time Temp Pulse Resp B/P (MAP) Pulse Ox O2 Delivery O2 Flow Rate FiO2 11/21/16 07:19 36.7 97 16 121/72 (88) 94 Nasal Cannula 2.0 11/21/16 06:56 98 14 94 Nasal Cannula 2.0 11/21/16 01:45 80 97 35 11/21/16 00:05 Nasal Cannula Last Recorded Weight Weight (Kilograms): 148.000 Physical Exam GENERAL: Middle-aged female AAA x 3, morbidly obese, not in any distress. NECK: Supple, no JVD. RESPIRATORY: Normal breathing efforts, no accessory muscle use, clear to auscultation bilaterally, no wheezes or rales. CARDIOVASCULAR: S1, S2 normal, rate rhythm regular. EXTREMITY: Edema, erythema and warmth of bilateral lower extremity with superficial skin break on the right lower extremity. Left upper extremity AVF incision dressing dry but hand swollen. NEURO: speech fluent. PSYCHIATRY: Normal mood and judgment. Family History Negative for CKD / ESRD Social History Smoking Status: Former smoker Drug Use: none Marital Status: Housing Status: lives with family Occupation: unemployed . Lives at home. Former smoker Laboratory Results Past 24 Hours 11/21/16 07:04 11/20/16 09:37 Test 11/20/16 09:37 11/20/16 11:35 11/20/16 16:38 11/20/16 19:57 Anion Gap 11.0 mmol/L (3-11) Est Creatinine Clear Calc Drug Dose 9.4 ml/min Estimated GFR () 4.9 Estimated GFR (Non- 4.3 BUN/Creatinine Ratio 6.5 (10-20) Calcium Level 8.3 mg/dl (8.5-10.1) Bedside Glucose 108 mg/dl (70-90) 98 mg/dl (70-90) 174 mg/dl (70-90) Test 11/21/16 00:33 11/21/16 03:58 11/21/16 07:04 Bedside Glucose 107 mg/dl (70-90) 117 mg/dl (70-90) Red Blood Count 3.07 M/uL (4.2-5.4) Mean Corpuscular Volume 102.9 fL (80-100) Mean Corpuscular Hemoglobin 31.6 pg (25-34) Mean Corpuscular Hemoglobin Concent 30.7 g/dl (32-36) RDW Standard Deviation 79.0 fL (36.4-46.3) RDW Coefficient of Variation 21.2 % (11.5-14.5) Mean Platelet Volume 10.1 fL (7.4-10.4) Nucleated RBC Absolute Count (auto) 0.15 K/uL (0-0) Nucleated Red Blood Cells % 1.7 % Allergies Coded Allergies: Daptomycin (Verified Allergy, Intermediate, HIVES/ITCHING, 11/18/16) itching Sulfamethoxazole w/Trimethoprim (Verified Allergy, Intermediate, RASH, ) Iodine (Verified Allergy, Unknown, 11/11/16) Shellfish (Verified Allergy, Unknown, 11/11/16) Codeine (Verified Adverse Reaction, Mild, NAUSEA, 11/17/16) has tolerated morphine Uncoded Allergies: kristina wipes (Allergy, Severe, red rash, excoriation, 09/19/16) comfort baths (Adverse Reaction, Severe, rash, "breaks out all over", ) Medications Current Inpatient Medications Medications (Trade) Dose Ordered Sig/Duyen Route Start Time Stop Time Status Last Admin Dose Admin Albuterol/ Ipratropium (Duoneb) 3 ml QIDR INH 11/11/16 16:00 12/11/16 15:59 11/21/16 06:55 3 ML Allopurinol (Zyloprim Tab) 100 mg DAILY PO 11/12/16 09:00 12/12/16 08:59 11/20/16 10:22 100 MG Atorvastatin Calcium (Lipitor Tab) 40 mg DAILY PO 11/12/16 09:00 12/12/16 08:59 11/20/16 10:22 40 MG Vitamin B Complex/ Vit C/Folic Acid (Nephrocaps) 1 cap QAM PO 11/12/16 09:00 12/12/16 08:59 11/20/16 10:21 1 CAP Calcium Acetate (Phoslo Cap) 667 mg ACHS PO 11/11/16 16:00 12/11/16 15:59 11/21/16 06:21 667 MG Cholecalciferol (Vitamin D Tab) 1,000 inter.unit DAILY PO 11/12/16 09:00 12/12/16 08:59 11/20/16 10:22 1,000 INTER.UNIT Famotidine (Pepcid Tab) 20 mg DAILY PO 11/12/16 09:00 12/12/16 08:59 11/20/16 10:21 20 MG Salmeterol Xinafoate/ Fluticasone (Advair Diskus 500/50 Inh) 1 puff BID INH 11/11/16 21:00 12/11/16 20:59 11/20/16 19:40 1 PUFF Acetaminophen/ Hydrocodone Bitart ([place] 5/325 Tab) 1 tab Q6H PRN PO 11/11/16 15:30 11/25/16 15:29 11/21/16 04:13 1 TAB Metoprolol Succinate (Toprol Xl Tab) 150 mg SuMoWeFr@0900 PO 11/12/16 09:00 12/12/16 08:59 11/19/16 09:00 150 MG Multivitamins/ Minerals (Multivitamin W/ Minerals Tab) 1 tab DAILY PO 11/12/16 09:00 12/12/16 08:59 11/20/16 10:21 1 TAB Pantoprazole Sodium (Protonix Tab) 40 mg DAILY PO 11/12/16 09:00 12/12/16 08:59 11/20/16 10:21 40 MG Pyridoxine HCl (Vitamin B-6 Tab) 200 mg DAILY PO 11/12/16 09:00 12/12/16 08:59 11/20/16 10:22 200 MG Silver Sulfadiazine (Silvadene 1% Crm 50GM Jar) 1 appln DAILY EXT 11/12/16 09:00 12/12/16 08:59 11/20/16 08:11 1 APPLN Tiotropium [place] (Spiriva Handihaler Inhaler) 1 puff DAILY INH 11/12/16 09:00 12/12/16 08:59 11/20/16 08:12 1 PUFF Ascorbic Acid (Vitamin C Tab) 1,000 mg DAILY PO 11/12/16 09:00 12/12/16 08:59 11/20/16 10:26 1,000 MG cr-Aaiyi-Azfimehbwg Acetate (Vitamin E Cap) 800 interunit DAILY PO 11/12/16 09:00 12/12/16 08:59 11/20/16 10:21 800 INTERUNIT Miscellaneous Information (Consult Glycemic Management Pharmacy) 1 ea UD PRN N/A 11/11/16 16:00 12/11/16 15:59 Heparin Sodium (Porcine) (Heparin Sq 5000 Unit/0.5ml) 5,000 unit Q12 SQ 11/11/16 21:00 12/11/16 20:59 11/20/16 21:35 5,000 UNIT Hydromorphone HCl (Dilaudid Inj) 1 mg Q8H PRN IV 11/11/16 15:30 11/25/16 15:29 11/21/16 06:22 1 MG Pregabalin (Lyrica Cap) 50 mg DAILY PO 11/12/16 09:00 12/12/16 08:59 11/20/16 10:26 50 MG Miconazole Nitrate (Desenex Powder) 1 appln PRN PRN EXT 11/11/16 17:15 12/11/16 17:14 11/16/16 09:10 1 APPLN Doxycycline Hyclate (Vibramycin Cap) 100 mg BID PO 11/11/16 21:00 12/11/16 20:59 Future hold 11/20/16 19:40 100 MG Insulin Aspart (novoLOG ASPART) SLIDING SCALE ACHS SC 11/12/16 11:00 12/12/16 10:59 11/20/16 21:34 6 UNITS Glucose (Glucose 40% Gel) 15-30 GRAMS 15 GRAMS... UD PRN PO 11/12/16 14:15 12/12/16 14:14 Glucose (Glucose Chew Tab) 4-8 Tablets 4 Tabl... UD PRN PO 11/12/16 14:15 12/12/16 14:14 Dextrose (Dextrose 50% 50ML Syringe) 25-50ML OF 50% DW IV FOR... UD PRN IV 11/12/16 14:15 12/12/16 14:14 Glucagon (Glucagon Inj) 1 mg UD PRN SQ 11/12/16 14:15 12/12/16 14:14 Ketotifen Fumarate (Zaditor 0.025% Op Soln) 1 drops BID OPB 11/16/16 20:13 12/16/16 20:12 11/20/16 19:40 1 DROPS Insulin Glargine (Lantus Vial) SEE PROTOCOL TEXT BID SC 11/17/16 20:00 12/17/16 19:59 11/20/16 21:35 85 UNITS Ondansetron HCl (Zofran Odt) 4 mg Q6H PRN PO 11/19/16 11:30 12/19/16 11:29 11/20/16 16:51 4 MG Lidocaine (Lidoderm Patch 5%) 1 patch QAM TD 11/21/16 08:00 12/21/16 07:59 UNV Miscellaneous (Remove Lidoderm Patch) 1 ea DAILY@21 N/A 11/21/16 21:00 12/21/16 20:59 UNV Impression (1) ESRD on hemodialysis (2) Hypercapnic respiratory failure (3) Obesity hypoventilation syndrome (4) Cellulitis of leg Mrs. Gaytan has recurrent hypercapnic respiratory failure despite adherence to NIPPV at home. Her CXR is concerning for a RLL infiltrate. Patient has dry cracked skin on her feet and bilateral LE cellulitis. She has ESRD due to cardiorenal syndrome and requires TTS HD (4.5hr F-180NR Qb300 Qd A1.5 3K 2.5 Ca EDW 137.7 kg Heparin 2000 load w/ 1000 units hourly). Had AVF transposition on 11/18/16. She will be switching to [facility] HD unit under care of Dr. Leblanc, starting after discharge, tentatively plan to have first Rx on 11/21/16 Recommendations -- Due for dialysis today , will do 4 h Rx with 2 K bath -- IJ THC placed 07/25/16. L upper arm AVF created 08/19/[address] Thapa,had transposition on 11/18/16 -- Will monitor H&H and provide SAMARA as needed to keep Hgb 10 - 11 -- continue on Nephrocaps and phosphate binder with meal. --Ok to DC, next Hd at [facility] unit on Thursday Will follow
[2016-11-21] MEDS ORDERED: OXYCODONE/ACETAMINOPHEN 5-325 TAB PO PRN (16:45)
[2016-11-21] MEDS ORDERED: NURSING VERBAL MED ORDER ONE (20:15)
[2016-11-22] VITALS (9 sets, daily range): BP systolic 95–139; BP diastolic 54–79; PULSE 68–106; TEMP 36.6–36.9; O2SAT 91–98
[2016-11-22] MEDS: HYDROmorphone INJ 1 MG/ML SYR IV PRN ×3 (03:01→17:20)
[2016-11-22] MEDS: CALCIUM ACETATE 667MG GELCAP PO SCH ×4 (06:29→20:43)
[2016-11-22] MEDS: HYDROCODONE/ACETAMOPHEN 5/325MG TAB PO PRN ×3 (06:30→20:41)
[2016-11-22] MEDS: ALBUT/IPRATROP 3MG/0.5MG NEB 3 ML VIAL INH SCH ×4 (07:26→19:37)
[2016-11-22] MEDS: PYRIDOXINE HCL 50 MG TAB PO SCH (08:01)
[2016-11-22] MEDS: ALLOPURINOL 100 MG TAB PO SCH (08:01)
[2016-11-22] MEDS: ASCORBIC ACID 500 MG TAB PO SCH (08:01)
[2016-11-22] MEDS: ATORVASTATIN 40 MG TAB PO SCH (08:01)
[2016-11-22] MEDS: TOCOPHERYL, DL-ALPHA 400 INTER.UNIT CAP PO SCH (08:01)
[2016-11-22] MEDS: CHOLECALCIFEROL 1000 INTER.UNIT TAB PO SCH (08:02)
[2016-11-22] MEDS: PANTOprazole SOD 40 MG TAB PO SCH (08:02)
[2016-11-22] MEDS: FLUTICASONE/SALMETEROL (ADVAIR) 500/50 INH 14 PUFF INH SCH ×2 (08:02→20:42)
[2016-11-22] MEDS: SILVER SULFADIAZINE 1% CR 50 GM JAR EXT SCH (08:02)
[2016-11-22] MEDS: CEROVITE ADV FORMULA TAB PO SCH (08:02)
[2016-11-22] MEDS: PREGABALIN 50 MG CAP PO SCH (08:02)
[2016-11-22] MEDS: NEPHROCAPS PO SCH (08:02)
[2016-11-22] MEDS: TIOTROPIUM BROMIDE 5 PUFF/90 MCG INH INH SCH (08:02)
[2016-11-22] MEDS: DOXYCYCLINE HYCLATE 100 MG CAP PO SCH ×2 (08:02→20:43)
[2016-11-22] MEDS: FAMOTIDINE 20 MG TAB PO SCH (08:02)
[2016-11-22] MEDS: KETOTIFEN FUMARATE (ZADITOR) 0.025% 5 ML BTL OPB SCH ×2 (08:03→20:42)
[2016-11-22] MEDS: LIDODERM (LIDOCAINE) PATCH 5% TD SCH (08:04)
--- NOTE | 2016-11-22 08:41 | Progress Note ---
Subjective Date of Service: Nov 21, 2016. Subjective Pt evaluation today including: conversation w/ patient, conversation w/ family (), physical exam, lab review, review of inpatient medication list Pain: increased pain in neck and upper back PO Intake: adequate Voiding: no voiding problems patient with HD on 11/21, tolerated well c/o increased pain in neck and upper back, not relieved with Morphine suggested trying Lidoderm patch and Percocet explained the need to be cautious with Percocet given ESRD, tendency for hypercapnia hold on plans for discharge given increased pain Problem List Medical Problems: (1) Acute respiratory failure with hypoxia and hypercarbia Status: Acute (2) Altered mental status Status: Acute (3) Anasarca Status: Acute (4) Anasarca Status: Acute (5) Bilateral cellulitis of lower leg Status: Acute (6) Bilateral lower leg cellulitis Status: Acute (7) Cellulitis of leg Status: Acute (8) Change in mental status Status: Acute (9) Chronic renal failure Status: Acute (10) CO2 retention Status: Acute (11) Contusion of multiple sites Status: Acute (12) Dehydration Status: Acute (13) Dyspnea on exertion Status: Acute (14) Fall Status: Acute (15) Fall Status: Acute (16) Fever Status: Acute (17) Fever Status: Acute (18) Generalized weakness Status: Acute (19) Hypercarbia Status: Acute (20) Hyperkalemia Status: Acute (21) Hypokalemia Status: Acute (22) Hypoventilation Status: Acute (23) Hypoxemia Status: Acute (24) Hypoxia Status: Acute (25) Lumbar strain Status: Acute (26) Metabolic acidosis Status: Acute (27) Nail avulsion of toe Status: Acute (28) Obesity Status: Acute (29) Positive blood culture Status: Acute (30) Respiratory acidosis Status: Acute (31) Respiratory failure Status: Acute (32) Weakness Status: Acute (33) Weight gain Status: Acute (34) Wrist pain Status: Acute Review of Systems Constitutional: + weakness, + fatigue Cardiac: + edema Musculoskeletal: + joint pain (neck and upper back) Skin: + rash (chronic erythema, venous stasis changes, blistering) All Other Systems: Reviewed and Negative Medications Current Inpatient Medications Medications (Trade) Dose Ordered Sig/Duyen Route Start Time Stop Time Status Last Admin Dose Admin Albuterol/ Ipratropium (Duoneb) 3 ml QIDR INH 11/11/16 16:00 12/11/16 15:59 11/22/16 07:26 3 ML Allopurinol (Zyloprim Tab) 100 mg DAILY PO 11/12/16 09:00 12/12/16 08:59 11/22/16 08:01 100 MG Atorvastatin Calcium (Lipitor Tab) 40 mg DAILY PO 11/12/16 09:00 12/12/16 08:59 11/22/16 08:01 40 MG Vitamin B Complex/ Vit C/Folic Acid (Nephrocaps) 1 cap QAM PO 11/12/16 09:00 12/12/16 08:59 11/22/16 08:02 1 CAP Calcium Acetate (Phoslo Cap) 667 mg ACHS PO 11/11/16 16:00 12/11/16 15:59 11/22/16 06:29 667 MG Cholecalciferol (Vitamin D Tab) 1,000 inter.unit DAILY PO 11/12/16 09:00 12/12/16 08:59 11/22/16 08:02 1,000 INTER.UNIT Famotidine (Pepcid Tab) 20 mg DAILY PO 11/12/16 09:00 12/12/16 08:59 11/22/16 08:02 20 MG Salmeterol Xinafoate/ Fluticasone (Advair Diskus 500/50 Inh) 1 puff BID INH 11/11/16 21:00 12/11/16 20:59 11/22/16 08:02 1 PUFF Metoprolol Succinate (Toprol Xl Tab) 150 mg SuMoWeFr@0900 PO 11/12/16 09:00 12/12/16 08:59 11/19/16 09:00 150 MG Multivitamins/ Minerals (Multivitamin W/ Minerals Tab) 1 tab DAILY PO 11/12/16 09:00 12/12/16 08:59 11/22/16 08:02 1 TAB Pantoprazole Sodium (Protonix Tab) 40 mg DAILY PO 11/12/16 09:00 12/12/16 08:59 11/22/16 08:02 40 MG Pyridoxine HCl (Vitamin B-6 Tab) 200 mg DAILY PO 11/12/16 09:00 12/12/16 08:59 11/22/16 08:01 200 MG Silver Sulfadiazine (Silvadene 1% Crm 50GM Jar) 1 appln DAILY EXT 11/12/16 09:00 12/12/16 08:59 11/22/16 08:02 1 APPLN Tiotropium [place] (Spiriva Handihaler Inhaler) 1 puff DAILY INH 11/12/16 09:00 12/12/16 08:59 11/22/16 08:02 1 PUFF Ascorbic Acid (Vitamin C Tab) 1,000 mg DAILY PO 11/12/16 09:00 12/12/16 08:59 11/22/16 08:01 1,000 MG kz-Wfznq-Ezyqgjpupi Acetate (Vitamin E Cap) 800 interunit DAILY PO 11/12/16 09:00 12/12/16 08:59 11/22/16 08:01 800 INTERUNIT Miscellaneous Information (Consult Glycemic Management Pharmacy) 1 ea UD PRN N/A 11/11/16 16:00 12/11/16 15:59 Heparin Sodium (Porcine) (Heparin Sq 5000 Unit/0.5ml) 5,000 unit Q12 SQ 11/11/16 21:00 12/11/16 20:59 11/21/16 21:19 5,000 UNIT Hydromorphone HCl (Dilaudid Inj) 1 mg Q8H PRN IV 11/11/16 15:30 11/25/16 15:29 11/22/16 03:01 1 MG Pregabalin (Lyrica Cap) 50 mg DAILY PO 11/12/16 09:00 12/12/16 08:59 11/22/16 08:02 50 MG Miconazole Nitrate (Desenex Powder) 1 appln PRN PRN EXT 11/11/16 17:15 12/11/16 17:14 11/16/16 09:10 1 APPLN Doxycycline Hyclate (Vibramycin Cap) 100 mg BID PO 11/11/16 21:00 12/11/16 20:59 Future hold 11/22/16 08:02 100 MG Insulin Aspart (novoLOG ASPART) SLIDING SCALE ACHS SC 11/12/16 11:00 12/12/16 10:59 11/21/16 17:15 9 UNITS Glucose (Glucose 40% Gel) 15-30 GRAMS 15 GRAMS... UD PRN PO 11/12/16 14:15 12/12/16 14:14 Glucose (Glucose Chew Tab) 4-8 Tablets 4 Tabl... UD PRN PO 11/12/16 14:15 12/12/16 14:14 Dextrose (Dextrose 50% 50ML Syringe) 25-50ML OF 50% DW IV FOR... UD PRN IV 11/12/16 14:15 12/12/16 14:14 Glucagon (Glucagon Inj) 1 mg UD PRN SQ 11/12/16 14:15 12/12/16 14:14 Ketotifen Fumarate (Zaditor 0.025% Op Soln) 1 drops BID OPB 11/16/16 20:13 12/16/16 20:12 11/22/16 08:03 1 DROPS Insulin Glargine (Lantus Vial) SEE PROTOCOL TEXT BID SC 11/17/16 20:00 12/17/16 19:59 11/21/16 20:00 85 UNITS Ondansetron HCl (Zofran Odt) 4 mg Q6H PRN PO 11/19/16 11:30 12/19/16 11:29 11/20/16 16:51 4 MG Lidocaine (Lidoderm Patch 5%) 1 patch QAM TD 11/21/16 09:30 12/21/16 09:29 11/22/16 08:04 1 PATCH Miscellaneous (Remove Lidoderm Patch) 1 ea DAILY@21 N/A 11/21/16 21:00 12/21/16 20:59 Acetaminophen/ Hydrocodone Bitart ([place] 5/325 Tab) 1 tab Q6H PRN PO 11/21/16 20:15 12/05/16 20:14 11/22/16 06:30 1 TAB Objective Vital Signs Date Time Temp Pulse Resp B/P (MAP) Pulse Ox O2 Delivery O2 Flow Rate FiO2 11/22/16 07:28 84 16 91 Nasal Cannula 2.0 11/22/16 07:00 36.6 106 16 103/66 (78) 98 Nasal Cannula 2.0 11/22/16 00:05 Nasal Cannula 11/21/16 23:36 36.7 114 20 96/55 (69) 90 11/21/16 20:05 Nasal Cannula 11/21/16 19:03 93 18 91 Nasal Cannula 2.0 11/21/16 16:00 Nasal Cannula 2.0 11/21/16 15:14 36.6 110 20 96/56 (69) 90 Nasal Cannula 2.0 11/21/16 15:14 114 18 91 Nasal Cannula 2.0 11/21/16 14:08 37.2 97 112/50 (70) 11/21/16 14:00 99 97/44 11/21/16 13:45 99 86/46 11/21/16 13:30 100 105/42 11/21/16 13:15 100 100/50 11/21/16 13:00 100 88/43 11/21/16 12:45 102 103/47 11/21/16 12:30 102 95/50 11/21/16 12:15 102 96/53 11/21/16 12:00 107 111/50 11/21/16 11:45 108 97/44 11/21/16 11:30 100 120/52 11/21/16 11:15 98 108/53 11/21/16 11:00 102 105/50 11/21/16 10:45 104 119/49 11/21/16 10:30 118 154/68 11/21/16 10:15 98 141/65 11/21/16 10:01 36.6 112 129/42 (71) Physical Exam General Appearance: no apparent distress, + obese Eyes: normal inspection, EOMI ENT: normal ENT inspection, hearing grossly normal, pharynx normal Neck: supple, no adenopathy, no JVD, trachea midline Respiratory/Chest: chest non-tender, no respiratory distress, no accessory muscle use, + decreased breath sounds (bases) Cardiovascular: regular rate, rhythm, no gallop, no JVD, no murmur Abdomen: normal bowel sounds, non tender, soft, no organomegaly Extremities: normal range of motion, non-tender, normal inspection, no calf tenderness, pelvis stable, + pedal edema 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, alert, normal mood/affect, oriented x 3, + motor weakness Skin: + rash (chronic erythema, venous stasis changes, blistering, thickened skin) Laboratory Results Last 24 Hours Test 11/21/16 14:49 11/21/16 16:34 11/21/16 20:15 Bedside Glucose 109 mg/dl 110 mg/dl 134 mg/dl Assessment and Plan Acute on Chronic Hypercarbic Respiratory Failure with COPD Exacerbation: STABLE - Initial treatment with BiPAP, IV Bicarb, and Emergent HD - At baseline - utilizing BiPAP at night and chronic continuous O2 - Pulmonology followed and S/O - recommendations for trach but patient declined Bilateral Leg Cellulitis: RESOLVED - One positive BCx which is likely contaminant - Likely underlying insufficiency - ID Following - Completed 7 days IV Vancomycin and back on Doxycycline prophylaxis, continue this on discharge ESRD on Dialysis with S/P L AV Fistula Transposition 11/18: - Plans to convert to MWF routine - Nephrology following - HD performed on 11/21, due again outpatient on 11/24 Neck and upper back pain - Lidoderm, Percocet - Dilaudid IV only for breakthrough - continue therapy to keep patient moving - hold on discharge since pain not controlled and having difficulty with his knee and needs extra help at home T2DM: A1c 5.9 - Glycemic management DVT Prophylaxis: Heparin SC BID plan: try to d/c home once pain adequately controlled on PO medications, Lidoderm patch Continued [facility] stay due to: multiple IV medications needed Discharge planning: home with home health
[2016-11-22] MEDS: INSULIN ASPART 100 UNITS/ML 3 ML PEN SC SCH ×4 (08:49→20:49)
[2016-11-22] MEDS: HEPARIN SOD 5000 UNIT/0.5 ML CARP SQ SCH ×2 (08:50→20:50)
[2016-11-22] MEDS: INSULIN GLARGINE SC SCH ×2 (08:50→20:50)
--- NOTE | 2016-11-22 12:40 | Progress Note ---
Subjective Date of Service: Nov 22, 2016. Subjective Pt evaluation today including: conversation w/ patient, conversation w/ family , physical exam, chart review, lab review, review of studies, review of inpatient medication list Pain: still having neck pain Voiding: no voiding problems, no incontinence Problem List Medical Problems: (1) Acute respiratory failure with hypoxia and hypercarbia Status: Acute (2) Altered mental status Status: Acute (3) Anasarca Status: Acute (4) Anasarca Status: Acute (5) Bilateral cellulitis of lower leg Status: Acute (6) Bilateral lower leg cellulitis Status: Acute (7) Cellulitis of leg Status: Acute (8) Change in mental status Status: Acute (9) Chronic renal failure Status: Acute (10) CO2 retention Status: Acute (11) Contusion of multiple sites Status: Acute (12) Dehydration Status: Acute (13) Dyspnea on exertion Status: Acute (14) Fall Status: Acute (15) Fall Status: Acute (16) Fever Status: Acute (17) Fever Status: Acute (18) Generalized weakness Status: Acute (19) Hypercarbia Status: Acute (20) Hyperkalemia Status: Acute (21) Hypokalemia Status: Acute (22) Hypoventilation Status: Acute (23) Hypoxemia Status: Acute (24) Hypoxia Status: Acute (25) Lumbar strain Status: Acute (26) Metabolic acidosis Status: Acute (27) Nail avulsion of toe Status: Acute (28) Obesity Status: Acute (29) Positive blood culture Status: Acute (30) Respiratory acidosis Status: Acute (31) Respiratory failure Status: Acute (32) Weakness Status: Acute (33) Weight gain Status: Acute (34) Wrist pain Status: Acute Review of Systems Constitutional: + weakness, + fatigue Cardiac: + edema Musculoskeletal: + joint pain (neck and upper back) Skin: + rash (chronic erythema, venous stasis changes, blistering) All Other Systems: Reviewed and Negative Medications Medications (Trade) Dose Ordered Sig/Duyen Route Start Time Stop Time Status Last Admin Dose Admin Acetaminophen/ Hydrocodone Bitart ([place] 5/325 Tab) 1 tab Q6H PRN PO 11/21/16 20:15 12/05/16 20:14 11/22/16 06:30 1 TAB Objective Vital Signs Date Time Temp Pulse Resp B/P (MAP) Pulse Ox O2 Delivery O2 Flow Rate FiO2 11/22/16 11:35 103 20 94 Nasal Cannula 2.0 11/22/16 08:00 98 Nasal Cannula 2.0 11/22/16 07:28 84 16 91 Nasal Cannula 2.0 11/22/16 07:00 36.6 106 16 103/66 (78) 98 Nasal Cannula 2.0 11/22/16 00:05 Nasal Cannula 11/21/16 23:36 36.7 114 20 96/55 (69) 90 11/21/16 20:05 Nasal Cannula 11/21/16 19:03 93 18 91 Nasal Cannula 2.0 11/21/16 16:00 Nasal Cannula 2.0 11/21/16 15:14 36.6 110 20 96/56 (69) 90 Nasal Cannula 2.0 11/21/16 15:14 114 18 91 Nasal Cannula 2.0 11/21/16 14:08 37.2 97 112/50 (70) 11/21/16 14:00 99 97/44 11/21/16 13:45 99 86/46 11/21/16 13:30 100 105/42 11/21/16 13:15 100 100/50 11/21/16 13:00 100 88/43 11/21/16 12:45 102 103/47 Physical Exam Comments: General Appearance: no apparent distress, + obese Eyes: normal inspection, EOMI ENT: normal ENT inspection, hearing grossly normal, pharynx normal Neck: supple, no adenopathy, no JVD, trachea midline Respiratory/Chest: chest non-tender, no respiratory distress, no accessory muscle use, + decreased breath sounds (bases) Cardiovascular: regular rate, rhythm, no gallop, no JVD, no murmur Abdomen: normal bowel sounds, non tender, soft, no organomegaly Extremities: normal range of motion, non-tender, normal inspection, no calf tenderness, pelvis stable, + pedal edema 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 - Initial treatment with BiPAP, IV Bicarb, and Emergent HD - At baseline - utilizing BiPAP at night and chronic continuous O2 - Pulmonology followed and S/O - recommendations for trach but patient declined Bilateral Leg Cellulitis: RESOLVED - One positive BCx which is likely contaminant - Likely underlying insufficiency - ID Following - Completed 7 days IV Vancomycin and back on Doxycycline prophylaxis, continue this on discharge ESRD on Dialysis with S/P L AV Fistula Transposition 11/18: - Plans to convert to MWF routine - Nephrology following - HD performed on 11/21, due again outpatient on 11/24 Neck and upper back pain - Lidoderm, Percocet - Dilaudid IV only for breakthrough pain however requesting if frequency can be change to q6hr - continue therapy to keep patient moving - hold on discharge since pain not controlled and having difficulty with his knee and needs extra help at home T2DM: A1c 5.9 - Glycemic management DVT Prophylaxis: Heparin SC BID Continued [facility] stay due to: multiple IV medications needed Discharge planning: home with home health
--- NOTE | 2016-11-22 13:39 | Nephrology Progress Note ---
Nephrology Progress Note Date of Service Nov 22, 2016. Chief Complaint ESRD Subjective Hemalatha was seen and evaluated in her hospital room this morning. She notes persistent pain in her neck. Her left arm is swollen and uncomfortable since surgery. Pain has been reasonably controlled with Dilaudid. Activity tolerance is limited due to pain. Jazmin was sleeping when I entered the room. She woke easily but states that she has been very tired from all the events of her hospitalization. Review of Systems A complete review of systems was performed. Pertinent positives are noted above. All other systems are negative. Vital Signs Last 8 Hrs Date Time Temp Pulse Resp B/P (MAP) Pulse Ox O2 Delivery O2 Flow Rate FiO2 11/22/16 11:35 103 20 94 Nasal Cannula 2.0 11/22/16 08:00 98 Nasal Cannula 2.0 11/22/16 07:28 84 16 91 Nasal Cannula 2.0 11/22/16 07:00 36.6 106 16 103/66 (78) 98 Nasal Cannula 2.0 Last Recorded Weight Weight (Kilograms): 148.100 Physical Exam General Appearance: no apparent distress, + obese Head: normocephalic, atraumatic Eyes: normal inspection, sclerae normal ENT: normal ENT inspection, pharynx normal Neck: supple, + pertinent finding (thick, unable to appreciate JVP) Respiratory/Chest: no respiratory distress, no accessory muscle use, + decreased breath sounds Cardiovascular: regular rate, rhythm, no gallop Abdomen/GI: non tender, soft Extremities/Musculoskelatal: + pedal edema, + pertinent finding (LUE incision with susan intact, bruising noted with some edema in the forearm and hand) Neurologic/Psych: alert, + depressed affect Family History Cancer Diabetes mellitus Gallbladder disease Heart disease Lung disease Negative for CKD / ESRD Social History Smoking Status: Former smoker Drug Use: none Marital Status: Housing Status: lives with family Occupation: unemployed . Lives at home. Former smoker Laboratory Results Past 24 Hours Test 11/21/16 14:49 11/21/16 16:34 11/21/16 20:15 11/22/16 07:50 Bedside Glucose 109 mg/dl (70-90) 110 mg/dl (70-90) 134 mg/dl (70-90) 113 mg/dl (70-90) Test 11/22/16 11:34 Bedside Glucose 182 mg/dl (70-90) Allergies Coded Allergies: Daptomycin (Verified Allergy, Intermediate, HIVES/ITCHING, 11/18/16) itching Sulfamethoxazole w/Trimethoprim (Verified Allergy, Intermediate, RASH, ) Iodine (Verified Allergy, Unknown, 11/11/16) Shellfish (Verified Allergy, Unknown, 11/11/16) Codeine (Verified Adverse Reaction, Mild, NAUSEA, 11/17/16) has tolerated morphine Uncoded Allergies: kristina wipes (Allergy, Severe, red rash, excoriation, 09/19/16) comfort baths (Adverse Reaction, Severe, rash, "breaks out all over", ) Medications Current Inpatient Medications Medications (Trade) Dose Ordered Sig/Duyen Route Start Time Stop Time Status Last Admin Dose Admin Albuterol/ Ipratropium (Duoneb) 3 ml QIDR INH 11/11/16 16:00 12/11/16 15:59 11/22/16 11:32 3 ML Allopurinol (Zyloprim Tab) 100 mg DAILY PO 11/12/16 09:00 12/12/16 08:59 11/22/16 08:01 100 MG Atorvastatin Calcium (Lipitor Tab) 40 mg DAILY PO 11/12/16 09:00 12/12/16 08:59 11/22/16 08:01 40 MG Vitamin B Complex/ Vit C/Folic Acid (Nephrocaps) 1 cap QAM PO 11/12/16 09:00 12/12/16 08:59 11/22/16 08:02 1 CAP Calcium Acetate (Phoslo Cap) 667 mg ACHS PO 11/11/16 16:00 12/11/16 15:59 11/22/16 11:05 667 MG Cholecalciferol (Vitamin D Tab) 1,000 inter.unit DAILY PO 11/12/16 09:00 12/12/16 08:59 11/22/16 08:02 1,000 INTER.UNIT Famotidine (Pepcid Tab) 20 mg DAILY PO 11/12/16 09:00 12/12/16 08:59 11/22/16 08:02 20 MG Salmeterol Xinafoate/ Fluticasone (Advair Diskus 500/50 Inh) 1 puff BID INH 11/11/16 21:00 12/11/16 20:59 11/22/16 08:02 1 PUFF Metoprolol Succinate (Toprol Xl Tab) 150 mg SuMoWeFr@0900 PO 11/12/16 09:00 12/12/16 08:59 11/19/16 09:00 150 MG Multivitamins/ Minerals (Multivitamin W/ Minerals Tab) 1 tab DAILY PO 11/12/16 09:00 12/12/16 08:59 11/22/16 08:02 1 TAB Pantoprazole Sodium (Protonix Tab) 40 mg DAILY PO 11/12/16 09:00 12/12/16 08:59 11/22/16 08:02 40 MG Pyridoxine HCl (Vitamin B-6 Tab) 200 mg DAILY PO 11/12/16 09:00 12/12/16 08:59 11/22/16 08:01 200 MG Silver Sulfadiazine (Silvadene 1% Crm 50GM Jar) 1 appln DAILY EXT 11/12/16 09:00 12/12/16 08:59 11/22/16 08:02 1 APPLN Tiotropium [place] (Spiriva Handihaler Inhaler) 1 puff DAILY INH 11/12/16 09:00 12/12/16 08:59 11/22/16 08:02 1 PUFF Ascorbic Acid (Vitamin C Tab) 1,000 mg DAILY PO 11/12/16 09:00 12/12/16 08:59 11/22/16 08:01 1,000 MG nl-Ijgcy-Zfvixbfrxe Acetate (Vitamin E Cap) 800 interunit DAILY PO 11/12/16 09:00 12/12/16 08:59 11/22/16 08:01 800 INTERUNIT Miscellaneous Information (Consult Glycemic Management Pharmacy) 1 ea UD PRN N/A 11/11/16 16:00 12/11/16 15:59 Heparin Sodium (Porcine) (Heparin Sq 5000 Unit/0.5ml) 5,000 unit Q12 SQ 11/11/16 21:00 12/11/16 20:59 11/22/16 08:50 5,000 UNIT Pregabalin (Lyrica Cap) 50 mg DAILY PO 11/12/16 09:00 12/12/16 08:59 11/22/16 08:02 50 MG Miconazole Nitrate (Desenex Powder) 1 appln PRN PRN EXT 11/11/16 17:15 12/11/16 17:14 11/16/16 09:10 1 APPLN Doxycycline Hyclate (Vibramycin Cap) 100 mg BID PO 11/11/16 21:00 12/11/16 20:59 Future hold 11/22/16 08:02 100 MG Insulin Aspart (novoLOG ASPART) SLIDING SCALE ACHS SC 11/12/16 11:00 12/12/16 10:59 11/22/16 13:14 34 UNITS Glucose (Glucose 40% Gel) 15-30 GRAMS 15 GRAMS... UD PRN PO 11/12/16 14:15 12/12/16 14:14 Glucose (Glucose Chew Tab) 4-8 Tablets 4 Tabl... UD PRN PO 11/12/16 14:15 12/12/16 14:14 Dextrose (Dextrose 50% 50ML Syringe) 25-50ML OF 50% DW IV FOR... UD PRN IV 11/12/16 14:15 12/12/16 14:14 Glucagon (Glucagon Inj) 1 mg UD PRN SQ 11/12/16 14:15 12/12/16 14:14 Ketotifen Fumarate (Zaditor 0.025% Op Soln) 1 drops BID OPB 11/16/16 20:13 12/16/16 20:12 11/22/16 08:03 1 DROPS Insulin Glargine (Lantus Vial) SEE PROTOCOL TEXT BID SC 11/17/16 20:00 12/17/16 19:59 11/22/16 08:50 85 UNITS Ondansetron HCl (Zofran Odt) 4 mg Q6H PRN PO 11/19/16 11:30 12/19/16 11:29 11/20/16 16:51 4 MG Lidocaine (Lidoderm Patch 5%) 1 patch QAM TD 11/21/16 09:30 12/21/16 09:29 11/22/16 08:04 1 PATCH Miscellaneous (Remove Lidoderm Patch) 1 ea DAILY@21 N/A 11/21/16 21:00 12/21/16 20:59 Acetaminophen/ Hydrocodone Bitart ([place] 5/325 Tab) 1 tab Q6H PRN PO 11/21/16 20:15 12/05/16 20:14 11/22/16 06:30 1 TAB Hydromorphone HCl (Dilaudid Inj) 1 mg Q6H PRN IV 11/22/16 12:45 11/29/16 09:00 Impression (1) ESRD on hemodialysis (2) Hypercapnic respiratory failure (3) Obesity hypoventilation syndrome (4) Cellulitis of leg Jazmin is a 61-year-old female admitted to the hospital for evaluation respiratory failure w/ CO2 narcosis. Her medical history is complicated and significant for ESRD due to cardiorenal syndrome and diuretic resistant volume overload, HTN, obesity (BMI 56) and obesity hypoventilation syndrome. Jazmin was previously on HD at [facility] but will be transitioning to [facility] in [place] at hospital discharge. She dialyzes via a TDC. Transposition of RUE AVF was performed during hospitalization. There is notable bruising but overall incision appears well. We discussed keeping her arm elevated to help with edema. Recommendations ESRD: -- HD MWF -- 4.5hr F-180NR Qb300 Qd A1.5 3K 2.5 Ca EDW 137.7 kg Heparin 2000 load w/ 1000 units hourly -- AVF transposition on 11/18/[address] Thapa -- Patient will continue HD at [facility] unit under care of Dr. Leblanc after discharge -- First outpatient treatment at [facility] is tentatively scheduled for 11/21 ANEMIA: -- EPO 4000 units with HD 11/21 CKD/MBD: -- Renal diet -- Calcium acetate QAC PULM: -- Obesity hypoventilation syndrome, MIKAYLA -- Presented to hospital w/ recurrent severe hypercapnia -- Pulmonology follow up
[2016-11-23] VITALS (8 sets, daily range): BP systolic 88–100; BP diastolic 53–65; PULSE 84–101; TEMP 36.4–36.8; O2SAT 92–100
[2016-11-23] MEDS: HYDROmorphone INJ 1 MG/ML SYR IV PRN ×3 (03:50→17:17)
[2016-11-23] MEDS: HYDROCODONE/ACETAMOPHEN 5/325MG TAB PO PRN ×2 (05:24→11:01)
[2016-11-23] MEDS: ALBUT/IPRATROP 3MG/0.5MG NEB 3 ML VIAL INH SCH ×4 (06:58→19:37)
[2016-11-23] MEDS: SILVER SULFADIAZINE 1% CR 50 GM JAR EXT SCH (07:41)
[2016-11-23] MEDS: LIDODERM (LIDOCAINE) PATCH 5% TD SCH (07:41)
[2016-11-23] MEDS: CALCIUM ACETATE 667MG GELCAP PO SCH ×4 (07:42→21:28)
[2016-11-23] MEDS: ALLOPURINOL 100 MG TAB PO SCH (07:42)
[2016-11-23] MEDS: PANTOprazole SOD 40 MG TAB PO SCH (07:42)
[2016-11-23] MEDS: DOXYCYCLINE HYCLATE 100 MG CAP PO SCH ×2 (07:42→21:28)
[2016-11-23] MEDS: NEPHROCAPS PO SCH (07:42)
[2016-11-23] MEDS: CEROVITE ADV FORMULA TAB PO SCH (07:42)
[2016-11-23] MEDS: METOPROLOL SUCC 50MG EXT REL TAB PO SCH (07:42)
[2016-11-23] MEDS: FLUTICASONE/SALMETEROL (ADVAIR) 500/50 INH 14 PUFF INH SCH ×2 (07:43→21:27)
[2016-11-23] MEDS: TOCOPHERYL, DL-ALPHA 400 INTER.UNIT CAP PO SCH (07:43)
[2016-11-23] MEDS: ASCORBIC ACID 500 MG TAB PO SCH (07:43)
[2016-11-23] MEDS: CHOLECALCIFEROL 1000 INTER.UNIT TAB PO SCH (07:43)
[2016-11-23] MEDS: KETOTIFEN FUMARATE (ZADITOR) 0.025% 5 ML BTL OPB SCH ×2 (07:43→21:27)
[2016-11-23] MEDS: ATORVASTATIN 40 MG TAB PO SCH (07:43)
[2016-11-23] MEDS: FAMOTIDINE 20 MG TAB PO SCH (07:43)
[2016-11-23] MEDS: TIOTROPIUM BROMIDE 5 PUFF/90 MCG INH INH SCH (07:43)
[2016-11-23] MEDS: PYRIDOXINE HCL 50 MG TAB PO SCH (07:43)
[2016-11-23] MEDS: PREGABALIN 50 MG CAP PO SCH (07:46)
[2016-11-23] MEDS: INSULIN GLARGINE SC SCH ×2 (08:35→21:34)
[2016-11-23] MEDS: INSULIN ASPART 100 UNITS/ML 3 ML PEN SC SCH ×4 (08:35→21:33)
[2016-11-23] MEDS: HEPARIN SOD 5000 UNIT/0.5 ML CARP SQ SCH ×2 (08:36→21:33)
--- NOTE | 2016-11-23 11:16 | Nephrology Progress Note ---
Nephrology Progress Note Date of Service Nov 23, 2016. Chief Complaint ESRD Subjective No acute events overnight. Hemalatha continues to struggle with pain control but this is slowly improving. Appetite is good. She denies shortness of breath. She continues to sleep most of the day. She is regularly using BIPAP. Edema and bruising in her left arm are improving. Review of Systems A complete review of systems was performed. Pertinent positives are noted above. All other systems are negative. Vital Signs Last 8 Hrs Date Time Temp Pulse Resp B/P (MAP) Pulse Ox O2 Delivery O2 Flow Rate FiO2 11/23/16 08:00 Nasal Cannula 2.0 11/23/16 07:20 36.4 101 18 100/65 (77) 100 Nasal Cannula 2.0 11/23/16 06:58 84 20 93 Nasal Cannula 2.0 Last Recorded Weight Weight (Kilograms): 147.700 Physical Exam General Appearance: no apparent distress, + obese Head: normocephalic, atraumatic Eyes: normal inspection, sclerae normal ENT: normal ENT inspection Neck: + pertinent finding (thick, unable to appreciate JVP, RIJ TDC) Respiratory/Chest: no respiratory distress, no accessory muscle use, + decreased breath sounds Cardiovascular: regular rate, rhythm Abdomen/GI: non tender, soft Extremities/Musculoskelatal: + pertinent finding (LUE with incision with susan intact) Neurologic/Psych: alert, normal mood/affect Family History Cancer Diabetes mellitus Gallbladder disease Heart disease Lung disease Negative for CKD / ESRD Social History Smoking Status: Former smoker Drug Use: none Marital Status: Housing Status: lives with family Occupation: unemployed . Lives at home. Former smoker Laboratory Results Past 24 Hours Test 11/22/16 11:34 11/22/16 17:16 11/22/16 20:16 11/23/16 08:06 Bedside Glucose 182 mg/dl (70-90) 134 mg/dl (70-90) 118 mg/dl (70-90) 158 mg/dl (70-90) Allergies Coded Allergies: Daptomycin (Verified Allergy, Intermediate, HIVES/ITCHING, 11/18/16) itching Sulfamethoxazole w/Trimethoprim (Verified Allergy, Intermediate, RASH, ) Iodine (Verified Allergy, Unknown, 11/11/16) Shellfish (Verified Allergy, Unknown, 11/11/16) Codeine (Verified Adverse Reaction, Mild, NAUSEA, 11/17/16) has tolerated morphine Uncoded Allergies: kristina wipes (Allergy, Severe, red rash, excoriation, 09/19/16) comfort baths (Adverse Reaction, Severe, rash, "breaks out all over", ) Medications Current Inpatient Medications Medications (Trade) Dose Ordered Sig/Duyen Route Start Time Stop Time Status Last Admin Dose Admin Albuterol/ Ipratropium (Duoneb) 3 ml QIDR INH 11/11/16 16:00 12/11/16 15:59 11/23/16 06:58 3 ML Allopurinol (Zyloprim Tab) 100 mg DAILY PO 11/12/16 09:00 12/12/16 08:59 11/23/16 07:42 100 MG Atorvastatin Calcium (Lipitor Tab) 40 mg DAILY PO 11/12/16 09:00 12/12/16 08:59 11/23/16 07:43 40 MG Vitamin B Complex/ Vit C/Folic Acid (Nephrocaps) 1 cap QAM PO 11/12/16 09:00 12/12/16 08:59 11/23/16 07:42 1 CAP Calcium Acetate (Phoslo Cap) 667 mg ACHS PO 11/11/16 16:00 12/11/16 15:59 11/23/16 07:42 667 MG Cholecalciferol (Vitamin D Tab) 1,000 inter.unit DAILY PO 11/12/16 09:00 12/12/16 08:59 11/23/16 07:43 1,000 INTER.UNIT Famotidine (Pepcid Tab) 20 mg DAILY PO 11/12/16 09:00 12/12/16 08:59 11/23/16 07:43 20 MG Salmeterol Xinafoate/ Fluticasone (Advair Diskus 500/50 Inh) 1 puff BID INH 11/11/16 21:00 12/11/16 20:59 11/23/16 07:43 1 PUFF Metoprolol Succinate (Toprol Xl Tab) 150 mg SuMoWeFr@0900 PO 11/12/16 09:00 12/12/16 08:59 11/23/16 07:42 150 MG Multivitamins/ Minerals (Multivitamin W/ Minerals Tab) 1 tab DAILY PO 11/12/16 09:00 10/13/17 08:59 11/23/16 07:42 1 TAB Pantoprazole Sodium (Protonix Tab) 40 mg DAILY PO 11/12/16 09:00 12/12/16 08:59 11/23/16 07:42 40 MG Pyridoxine HCl (Vitamin B-6 Tab) 200 mg DAILY PO 11/12/16 09:00 12/12/16 08:59 11/23/16 07:43 200 MG Silver Sulfadiazine (Silvadene 1% Crm 50GM Jar) 1 appln DAILY EXT 11/12/16 09:00 12/12/16 08:59 11/23/16 07:41 1 APPLN Tiotropium [place] (Spiriva Handihaler Inhaler) 1 puff DAILY INH 11/12/16 09:00 12/12/16 08:59 11/23/16 07:43 1 PUFF Ascorbic Acid (Vitamin C Tab) 1,000 mg DAILY PO 11/12/16 09:00 12/12/16 08:59 11/23/16 07:43 1,000 MG fh-Chshk-Ezlqpoaiis Acetate (Vitamin E Cap) 800 interunit DAILY PO 11/12/16 09:00 12/12/16 08:59 11/23/16 07:43 800 INTERUNIT Miscellaneous Information (Consult Glycemic Management Pharmacy) 1 ea UD PRN N/A 11/11/16 16:00 12/11/16 15:59 Heparin Sodium (Porcine) (Heparin Sq 5000 Unit/0.5ml) 5,000 unit Q12 SQ 11/11/16 21:00 12/11/16 20:59 11/23/16 08:36 5,000 UNIT Pregabalin (Lyrica Cap) 50 mg DAILY PO 11/12/16 09:00 12/12/16 08:59 11/23/16 07:46 50 MG Miconazole Nitrate (Desenex Powder) 1 appln PRN PRN EXT 11/11/16 17:15 12/11/16 17:14 11/16/16 09:10 1 APPLN Doxycycline Hyclate (Vibramycin Cap) 100 mg BID PO 11/11/16 21:00 12/11/16 20:59 Future hold 11/23/16 07:42 100 MG Insulin Aspart (novoLOG ASPART) SLIDING SCALE ACHS SC 11/12/16 11:00 12/12/16 10:59 11/23/16 08:35 37 UNITS Glucose (Glucose 40% Gel) 15-30 GRAMS 15 GRAMS... UD PRN PO 11/12/16 14:15 12/12/16 14:14 Glucose (Glucose Chew Tab) 4-8 Tablets 4 Tabl... UD PRN PO 11/12/16 14:15 12/12/16 14:14 Dextrose (Dextrose 50% 50ML Syringe) 25-50ML OF 50% DW IV FOR... UD PRN IV 11/12/16 14:15 12/12/16 14:14 Glucagon (Glucagon Inj) 1 mg UD PRN SQ 11/12/16 14:15 12/12/16 14:14 Ketotifen Fumarate (Zaditor 0.025% Op Soln) 1 drops BID OPB 11/16/16 20:13 12/16/16 20:12 11/23/16 07:43 1 DROPS Insulin Glargine (Lantus Vial) SEE PROTOCOL TEXT BID SC 11/17/16 20:00 12/17/16 19:59 11/23/16 08:35 85 UNITS Ondansetron HCl (Zofran Odt) 4 mg Q6H PRN PO 11/19/16 11:30 12/19/16 11:29 11/20/16 16:51 4 MG Lidocaine (Lidoderm Patch 5%) 1 patch QAM TD 11/21/16 09:30 12/21/16 09:29 11/23/16 07:41 1 PATCH Miscellaneous (Remove Lidoderm Patch) 1 ea DAILY@21 N/A 11/21/16 21:00 12/21/16 20:59 11/22/16 20:43 1 EA Acetaminophen/ Hydrocodone Bitart ([place] 5/325 Tab) 1 tab Q6H PRN PO 11/21/16 20:15 12/05/16 20:14 11/23/16 11:01 1 TAB Hydromorphone HCl (Dilaudid Inj) 1 mg Q6H PRN IV 11/22/16 12:45 11/29/16 09:00 11/23/16 09:31 1 MG Impression (1) ESRD on hemodialysis (2) Hypercapnic respiratory failure (3) Obesity hypoventilation syndrome (4) Cellulitis of leg Jazmin is a 61-year-old female admitted to the hospital for evaluation respiratory failure w/ CO2 narcosis. Her medical history is complicated and significant for ESRD due to cardiorenal syndrome and diuretic resistant volume overload, HTN, obesity (BMI 56) and obesity hypoventilation syndrome. This is one of multiple similar admission. Jazmin was previously on HD at [facility] but will be transitioning to [facility] in [place] at hospital discharge. She dialyzes via a TDC. Transposition of RUE AVF was performed during hospitalization. There is notable bruising but overall incision appears well. Recommendations ESRD: -- HD MWF -- 4.5hr F-180NR Qb300 Qd A1.5 3K 2.5 Ca EDW 137.7 kg Heparin 2000 load w/ 1000 units hourly -- AVF transposition on 11/18/[address] Thapa -- Patient will continue HD at [facility] unit under care of Dr. Leblanc after discharge -- First outpatient treatment at [facility] is tentatively scheduled for tomorrow ANEMIA: -- EPO 4000 units with HD 11/21 CKD/MBD: -- Renal diet -- Calcium acetate QAC PULM: -- Obesity hypoventilation syndrome, MIKAYLA -- Presented to hospital w/ recurrent severe hypercapnia -- Pulmonology follow up
--- NOTE | 2016-11-23 14:47 | Pharmacy Progress Note ---
Glycemic: Assessment & Plan Date of Service Nov 23, 2016. Assessment & Plan The patient is currently receiving 263 units of insulin per day. BSGs ranging 113 -182 mg/dl over the past 24hrs. * Basal insulin: Lantus 85 units BID * Correctional Insulin: Novolog Correction per scale ACHS Goal Range: Low 110 mg/dL - High 140 mg/dL Correction Factor: 6 mg/dL/unit * Prandial insulin: Per carb ratio of 1 unit per 2 grams CHO consumed BSGs continue to improve, no changes needed to inpatient regimen at this time. Pharmacy will continue to monitor patient daily and write orders per [facility] inpatient glycemic control protocol. Thanks. * Please note that the plan above was derived based on current level of insulin resistance and hospital stress. These recommendations are appropriate for inpatient admission only. Plan of care upon discharge will need to be reassessed to avoid potential outpatient hypo/hyperglycemia.
--- NOTE | 2016-11-23 16:32 | Progress Note ---
Subjective Date of Service: Nov 23, 2016. Subjective Pt evaluation today including: conversation w/ patient, conversation w/ family , physical exam, chart review, lab review, review of studies, review of inpatient medication list Pain: neck pain 4-5/10 PO Intake: good Voiding: no voiding problems, no incontinence Hemalatha continues to have pain in the neck and slowly improving. Appetite is good. She denies shortness of breath. She continues to sleep most of the day. She is regularly using BIPAP. Edema and bruising in her left arm are improving. Problem List Medical Problems: (1) Acute respiratory failure with hypoxia and hypercarbia Status: Acute (2) Altered mental status Status: Acute (3) Anasarca Status: Acute (4) Anasarca Status: Acute (5) Bilateral cellulitis of lower leg Status: Acute (6) Bilateral lower leg cellulitis Status: Acute (7) Change in mental status Status: Acute (8) Chronic renal failure Status: Acute (9) CO2 retention Status: Acute (10) Contusion of multiple sites Status: Acute (11) Dehydration Status: Acute (12) Dyspnea on exertion Status: Acute (13) Fall Status: Acute (14) Fall Status: Acute (15) Fever Status: Acute (16) Fever Status: Acute (17) Generalized weakness Status: Acute (18) Hypercarbia Status: Acute (19) Hyperkalemia Status: Acute (20) Hypokalemia Status: Acute (21) Hypoventilation Status: Acute (22) Hypoxemia Status: Acute (23) Hypoxia Status: Acute (24) Lumbar strain Status: Acute (25) Metabolic acidosis Status: Acute (26) Nail avulsion of toe Status: Acute (27) Obesity Status: Acute (28) Respiratory acidosis Status: Acute (29) Respiratory failure Status: Acute (30) Weakness Status: Acute (31) Weight gain Status: Acute (32) Wrist pain Status: Acute Review of Systems Constitutional: No fever, No chills, No weakness Eyes: No redness, No discharge ENT: No hearing loss Respiratory: No cough, No sputum, No wheezing, No shortness of breath, No dyspnea at rest Cardiac: + edema (bilateral arms and legs), No chest pain, No palpitations Abdomen: No pain, No nausea, No vomiting, No diarrhea Musculoskeletal: No joint pain, No muscle pain, No swelling Heme: No abnormal bleeding/bruising Endo: No fatigue Skin: No rash, No itch Objective Vital Signs Date Time Temp Pulse Resp B/P (MAP) Pulse Ox O2 Delivery O2 Flow Rate FiO2 11/23/16 14:59 36.8 98 18 99/55 (70) 94 Nasal Cannula 2.0 11/23/16 14:45 99 20 92 Nasal Cannula 2.0 11/23/16 11:16 97 20 93 Nasal Cannula 2.0 11/23/16 08:00 Nasal Cannula 2.0 11/23/16 07:20 36.4 101 18 100/65 (77) 100 Nasal Cannula 2.0 11/23/16 06:58 84 20 93 Nasal Cannula 2.0 11/22/16 23:31 36.9 68 20 139/79 (99) 91 BiPAP 11/22/16 19:57 80 92 35 11/22/16 19:49 86 20 92 Nasal Cannula 2.0 Physical Exam General Appearance: no apparent distress, + obese Eyes: EOMI, sclerae normal Neck: supple, no adenopathy Respiratory/Chest: lungs clear, normal breath sounds, no respiratory distress Cardiovascular: regular rate, rhythm, no JVD, no murmur Abdomen: normal bowel sounds, non tender, soft, no organomegaly Extremities: + pertinent finding (bilateral upper as well as lower extremity edema) 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: alert, normal mood/affect, oriented x 3 Skin: no rash Laboratory Results Last 24 Hours Test 11/22/16 17:16 11/22/16 20:16 11/23/16 08:06 11/23/16 11:44 Bedside Glucose 134 mg/dl 118 mg/dl 158 mg/dl 152 mg/dl Assessment and Plan (1) Positive blood culture (2) Cellulitis of leg Acute on Chronic Hypercarbic Respiratory Failure with COPD Exacerbation: Resolved, excessive diuresis and now o2 sat 94% on 2 L via NC - Initial treatment with BiPAP, IV Bicarb, and Emergent HD - At baseline - utilizing BiPAP at night and chronic continuous O2 - Pulmonology followed and S/O - recommendations for trach but patient declined Bilateral Leg Cellulitis: RESOLVED - One positive BCx which is likely contaminant - Likely underlying insufficiency - ID Following - Completed 7 days IV Vancomycin and back on Doxycycline prophylaxis, continue this on discharge ESRD on Dialysis with S/P L AV Fistula Transposition 11/18: - Plans to convert to MWF routine - Nephrology following - HD performed on 11/21, due again outpatient on 11/24 Neck and upper back pain - Lidoderm, Percocet - Dilaudid IV only for breakthrough pain however requesting if frequency can be change to q6hr - continue therapy to keep patient moving - hold on discharge since pain not controlled and having difficulty with his knee and needs extra help at home T2DM: A1c 5.9 - Glycemic management DVT Prophylaxis: Heparin SC BID Continued [facility] stay due to: multiple IV medications needed Discharge planning: home with home health
[2016-11-23] MEDS: ONDANSETRON 4MG OD TAB PO PRN (19:11)
[2016-11-23] MEDS: HEPARIN SOD (PORCINE) 1000 UNIT/ML 10 ML VIAL IV SCH ×2 (22:00→23:00)
[2016-11-23] MEDS ORDERED: HEPARIN SOD (PORCINE) 1000 UNIT/ML 10 ML VIAL IV SCH (22:00)
[2016-11-24] VITALS (23 sets, daily range): BP systolic 67–130; BP diastolic 46–89; PULSE 88–132; TEMP 36.7–36.8; O2SAT 90–100
[2016-11-24] MEDS: HYDROmorphone INJ 1 MG/ML SYR IV PRN ×4 (03:28→21:11)
[2016-11-24] MEDS: HYDROCODONE/ACETAMOPHEN 5/325MG TAB PO PRN ×3 (03:33→18:30)
[2016-11-24] MEDS: CALCIUM ACETATE 667MG GELCAP PO SCH ×4 (06:46→21:23)
[2016-11-24] MEDS: ALBUT/IPRATROP 3MG/0.5MG NEB 3 ML VIAL INH SCH ×5 (07:29→20:04)
[2016-11-24] MEDS: FLUTICASONE/SALMETEROL (ADVAIR) 500/50 INH 14 PUFF INH SCH ×2 (07:37→21:11)
[2016-11-24] MEDS: LIDODERM (LIDOCAINE) PATCH 5% TD SCH (07:37)
[2016-11-24] MEDS: TIOTROPIUM BROMIDE 5 PUFF/90 MCG INH INH SCH (07:37)
[2016-11-24] MEDS: SILVER SULFADIAZINE 1% CR 50 GM JAR EXT SCH (07:37)
[2016-11-24] MEDS: KETOTIFEN FUMARATE (ZADITOR) 0.025% 5 ML BTL OPB SCH ×2 (07:38→21:19)
[2016-11-24] MEDS: HEPARIN SOD 5000 UNIT/0.5 ML CARP SQ SCH ×2 (07:46→21:26)
[2016-11-24] MEDS: METOPROLOL SUCC 50MG EXT REL TAB PO SCH (08:19)
[2016-11-24 08:40] LABS: HEMATOCRIT 30.5 % (37-47)
[2016-11-24] MEDS: INSULIN ASPART 100 UNITS/ML 3 ML PEN SC SCH ×4 (09:16→21:29)
[2016-11-24] MEDS: INSULIN GLARGINE SC SCH ×2 (09:16→21:28)
[2016-11-24 09:33] LABS: BUN/CREATININE RATIO 4.4 (10-20); CALCIUM 8.7 mg/dl (8.5-10.1); PHOSPHORUS 5.9 mg/dl (2.5-4.9); POTASSIUM 4.6 mmol/L (3.5-5.1)
--- NOTE | 2016-11-24 10:38 | Dialysis Progress Note ---
Hemodialysis Note Date of Service Nov 24, 2016. Chief Complaint ESRD Subjective Jazmin was seen and evaluated during hemodialysis today. She continues to suffer from neck pain. She has persistent edema. She is uncomfortable. Due to swelling, habitus and positioning blood pressure has been difficult to assess. IV Dilaudid does help control the pain. She denies significant benefit from [place]. Review of Systems A complete review of systems was performed. Pertinent positives are noted above. All other systems are negative. Vital Signs Last 8 Hrs Date Time Temp Pulse Resp B/P (MAP) Pulse Ox O2 Delivery O2 Flow Rate FiO2 11/24/16 10:15 113 73/46 11/24/16 10:00 89 96/52 11/24/16 09:45 92 107/57 11/24/16 09:30 92 115/56 11/24/16 09:21 93 124/56 11/24/16 09:11 36.8 91 100/52 (68) 11/24/16 08:04 88 20 93 Nasal Cannula 2.0 11/24/16 08:00 95 Nasal Cannula 2.0 11/24/16 07:31 92 11/24/16 07:29 132 20 93 Nasal Cannula 2.0 11/24/16 07:17 36.7 91 20 97/52 (67) 95 Nasal Cannula 2.0 Last Recorded Weight Weight (Kilograms): 150.100 Physical Exam General Appearance: + mild distress, + obese Head: normocephalic, atraumatic Eyes: normal inspection, sclerae normal ENT: normal ENT inspection, pharynx normal Neck: supple, + pertinent finding (TDC with good Qb) Respiratory/Chest: no respiratory distress, no accessory muscle use, + decreased breath sounds Cardiovascular: regular rate, rhythm Abdomen/GI: non tender, soft Extremities/Musculoskelatal: + pertinent finding (LUE incision intact with susan) Neurologic/Psych: alert, + depressed affect Family History Negative for CKD / ESRD Social History Smoking Status: Former smoker Drug Use: none Marital Status: Housing Status: lives with family Occupation: unemployed . Lives at home. Former smoker Laboratory Results Past 24 Hours 11/24/16 08:12 11/24/16 08:12 Test 11/23/16 11:44 11/23/16 16:25 11/23/16 20:18 11/24/16 08:04 Bedside Glucose 152 mg/dl (70-90) 120 mg/dl (70-90) 145 mg/dl (70-90) 156 mg/dl (70-90) Test 11/24/16 08:12 Anion Gap 12.0 mmol/L (3-11) Est Creatinine Clear Calc Drug Dose 7.6 ml/min Estimated GFR () 3.8 Estimated GFR (Non- 3.3 BUN/Creatinine Ratio 4.4 (10-20) Calcium Level 8.7 mg/dl (8.5-10.1) Phosphorus Level 5.9 mg/dl (2.5-4.9) Albumin 2.7 gm/dl (3.4-5.0) Allergies Coded Allergies: Daptomycin (Verified Allergy, Intermediate, HIVES/ITCHING, 11/18/16) itching Sulfamethoxazole w/Trimethoprim (Verified Allergy, Intermediate, RASH, ) Iodine (Verified Allergy, Unknown, 11/11/16) Shellfish (Verified Allergy, Unknown, 11/11/16) Codeine (Verified Adverse Reaction, Mild, NAUSEA, 11/17/16) has tolerated morphine Uncoded Allergies: kristina wipes (Allergy, Severe, red rash, excoriation, 09/19/16) comfort baths (Adverse Reaction, Severe, rash, "breaks out all over", ) Medications Current Inpatient Medications Medications (Trade) Dose Ordered Sig/Duyen Route Start Time Stop Time Status Last Admin Dose Admin Albuterol/ Ipratropium (Duoneb) 3 ml QIDR INH 11/11/16 16:00 12/11/16 15:59 11/24/16 08:04 3 ML Allopurinol (Zyloprim Tab) 100 mg DAILY PO 11/12/16 09:00 12/12/16 08:59 11/23/16 07:42 100 MG Atorvastatin Calcium (Lipitor Tab) 40 mg DAILY PO 11/12/16 09:00 12/12/16 08:59 11/23/16 07:43 40 MG Vitamin B Complex/ Vit C/Folic Acid (Nephrocaps) 1 cap QAM PO 11/12/16 09:00 12/12/16 08:59 11/23/16 07:42 1 CAP Calcium Acetate (Phoslo Cap) 667 mg ACHS PO 11/11/16 16:00 12/11/16 15:59 11/24/16 06:46 667 MG Cholecalciferol (Vitamin D Tab) 1,000 inter.unit DAILY PO 11/12/16 09:00 12/12/16 08:59 11/23/16 07:43 1,000 INTER.UNIT Famotidine (Pepcid Tab) 20 mg DAILY PO 11/12/16 09:00 12/12/16 08:59 11/23/16 07:43 20 MG Salmeterol Xinafoate/ Fluticasone (Advair Diskus 500/50 Inh) 1 puff BID INH 11/11/16 21:00 12/11/16 20:59 11/24/16 07:37 1 PUFF Metoprolol Succinate (Toprol Xl Tab) 150 mg SuMoWeFr@0900 PO 11/12/16 09:00 12/12/16 08:59 11/23/16 07:42 150 MG Multivitamins/ Minerals (Multivitamin W/ Minerals Tab) 1 tab DAILY PO 11/12/16 09:00 12/12/16 08:59 11/23/16 07:42 1 TAB Pantoprazole Sodium (Protonix Tab) 40 mg DAILY PO 11/12/16 09:00 12/12/16 08:59 11/23/16 07:42 40 MG Pyridoxine HCl (Vitamin B-6 Tab) 200 mg DAILY PO 11/12/16 09:00 12/12/16 08:59 11/23/16 07:43 200 MG Silver Sulfadiazine (Silvadene 1% Crm 50GM Jar) 1 appln DAILY EXT 11/12/16 09:00 12/12/16 08:59 11/24/16 07:37 1 APPLN Tiotropium [place] (Spiriva Handihaler Inhaler) 1 puff DAILY INH 11/12/16 09:00 12/12/16 08:59 11/24/16 07:37 1 PUFF Ascorbic Acid (Vitamin C Tab) 1,000 mg DAILY PO 11/12/16 09:00 12/12/16 08:59 11/23/16 07:43 1,000 MG lq-Tyydf-Wtypzpmlpq Acetate (Vitamin E Cap) 800 interunit DAILY PO 11/12/16 09:00 12/12/16 08:59 11/23/16 07:43 800 INTERUNIT Miscellaneous Information (Consult Glycemic Management Pharmacy) 1 ea UD PRN N/A 11/11/16 16:00 12/11/16 15:59 Heparin Sodium (Porcine) (Heparin Sq 5000 Unit/0.5ml) 5,000 unit Q12 SQ 11/11/16 21:00 12/11/16 20:59 11/23/16 21:33 5,000 UNIT Pregabalin (Lyrica Cap) 50 mg DAILY PO 11/12/16 09:00 12/12/16 08:59 11/23/16 07:46 50 MG Miconazole Nitrate (Desenex Powder) 1 appln PRN PRN EXT 11/11/16 17:15 12/11/16 17:14 11/16/16 09:10 1 APPLN Doxycycline Hyclate (Vibramycin Cap) 100 mg BID PO 11/11/16 21:00 12/11/16 20:59 Future hold 11/23/16 21:28 100 MG Insulin Aspart (novoLOG ASPART) SLIDING SCALE ACHS SC 11/12/16 11:00 12/12/16 10:59 11/24/16 09:16 32 UNITS Glucose (Glucose 40% Gel) 15-30 GRAMS 15 GRAMS... UD PRN PO 11/12/16 14:15 12/12/16 14:14 Glucose (Glucose Chew Tab) 4-8 Tablets 4 Tabl... UD PRN PO 11/12/16 14:15 12/12/16 14:14 Dextrose (Dextrose 50% 50ML Syringe) 25-50ML OF 50% DW IV FOR... UD PRN IV 11/12/16 14:15 12/12/16 14:14 Glucagon (Glucagon Inj) 1 mg UD PRN SQ 11/12/16 14:15 12/12/16 14:14 Ketotifen Fumarate (Zaditor 0.025% Op Soln) 1 drops BID OPB 11/16/16 20:13 12/16/16 20:12 11/24/16 07:38 1 DROPS Insulin Glargine (Lantus Vial) SEE PROTOCOL TEXT BID SC 11/17/16 20:00 12/17/16 19:59 11/24/16 09:16 85 UNITS Ondansetron HCl (Zofran Odt) 4 mg Q6H PRN PO 11/19/16 11:30 12/19/16 11:29 11/23/16 19:11 4 MG Lidocaine (Lidoderm Patch 5%) 1 patch QAM TD 11/21/16 09:30 12/21/16 09:29 11/24/16 07:37 1 PATCH Miscellaneous (Remove Lidoderm Patch) 1 ea DAILY@21 N/A 11/21/16 21:00 12/21/16 20:59 11/23/16 21:39 1 EA Acetaminophen/ Hydrocodone Bitart ([place] 5/325 Tab) 1 tab Q6H PRN PO 11/21/16 20:15 12/05/16 20:14 11/24/16 09:18 1 TAB Hydromorphone HCl (Dilaudid Inj) 1 mg Q6H PRN IV 11/22/16 12:45 11/29/16 09:00 11/24/16 03:28 1 MG Impression (1) ESRD on hemodialysis (2) Hypercapnic respiratory failure (3) Obesity hypoventilation syndrome (4) Cellulitis of leg Jazmin is a 61-year-old female admitted to the hospital for evaluation respiratory failure w/ CO2 narcosis. Her medical history is complicated and significant for ESRD due to cardiorenal syndrome and diuretic resistant volume overload, HTN, obesity (BMI 56) and obesity hypoventilation syndrome. Jazmin was previously on HD at [facility] but will be transitioning to [facility] at hospital discharge. She dialyzes via a TDC. Transposition of RUE AVF was performed during hospitalization. There is notable bruising but overall incision appears well. She is tolerating hemodialysis reasonably well today. Blood pressure has been difficult to assess and is low. IV pain medications deferred due to low blood pressure. Will continue HD with UF as tolerated. Jazmin may need an additional dialysis treatment tomorrow, if we are unable to get adequate UF today. Recommendations ESRD: -- HD MWF -- UF goal at least 4 kg today as tolerated -- Will evaluate tomorrow for additional UF as needed -- 4.5hr F-180NR Qb300 Qd A1.5 3K 2.5 Ca EDW 137.7 kg Heparin 2000 load w/ 1000 units hourly -- AVF transposition on 11/18/[address] Thapa -- Patient will continue HD at [facility] [address] unit under care of Dr. Leblanc after discharge -- First outpatient treatment at [facility] is tentatively scheduled for tomorrow ANEMIA: -- EPO 4000 units with HD today CKD/MBD: -- Renal diet -- Calcium acetate QAC PULM: -- Obesity hypoventilation syndrome, MIKAYLA -- Presented to hospital w/ recurrent severe hypercapnia -- Pulmonology follow up
[2016-11-24] MEDS ORDERED: EPOETIN ALFA 4000 UNITS/ML VIAL IV SCH (11:00)
--- NOTE | 2016-11-24 11:08 | Progress Note ---
Progress Note Date of Service: Nov 24, 2016. Subjective 61yo f with multiple medical problems, 1 week post op after LUE AVF transposition, seen in f/u today. Pt admits neck pain. Denies numbness or tingling of LUE. Admits mild discomfort and edema of LUE. Problem List Medical Problems: (1) Acute respiratory failure with hypoxia and hypercarbia Status: Acute (2) Altered mental status Status: Acute (3) Anasarca Status: Acute (4) Anasarca Status: Acute (5) Bilateral cellulitis of lower leg Status: Acute (6) Bilateral lower leg cellulitis Status: Acute (7) Change in mental status Status: Acute (8) Chronic renal failure Status: Acute (9) CO2 retention Status: Acute (10) Contusion of multiple sites Status: Acute (11) Dehydration Status: Acute (12) Dyspnea on exertion Status: Acute (13) Fall Status: Acute (14) Fall Status: Acute (15) Fever Status: Acute (16) Fever Status: Acute (17) Generalized weakness Status: Acute (18) Hypercarbia Status: Acute (19) Hyperkalemia Status: Acute (20) Hypokalemia Status: Acute (21) Hypoventilation Status: Acute (22) Hypoxemia Status: Acute (23) Hypoxia Status: Acute (24) Lumbar strain Status: Acute (25) Metabolic acidosis Status: Acute (26) Nail avulsion of toe Status: Acute (27) Obesity Status: Acute (28) Respiratory acidosis Status: Acute (29) Respiratory failure Status: Acute (30) Weakness Status: Acute (31) Weight gain Status: Acute (32) Wrist pain Status: Acute Objective Vital Signs Vital Signs Past 12 Hours Date Time Temp Pulse Resp B/P (MAP) Pulse Ox O2 Delivery O2 Flow Rate FiO2 11/24/16 10:15 113 73/46 11/24/16 10:00 89 96/52 11/24/16 09:45 92 107/57 11/24/16 09:30 92 115/56 11/24/16 09:21 93 124/56 11/24/16 09:11 36.8 91 100/52 (68) 11/24/16 08:04 88 20 93 Nasal Cannula 2.0 11/24/16 08:00 95 Nasal Cannula 2.0 11/24/16 07:31 92 11/24/16 07:29 132 20 93 Nasal Cannula 2.0 11/24/16 07:17 36.7 91 20 97/52 (67) 95 Nasal Cannula 2.0 11/24/16 00:00 BiPAP 11/23/16 23:09 36.6 95 18 88/53 (65) 92 BiPAP Exam CONST: A&O x3, NAD, morbidly obese, chronicallyill appearing female EXT; LUE incision C/D/I with susan. Mild local erythema around susan and over old ecchymosis. + thrill and bruit. + local tenderness and edema. Laboratory and Microbiology Results Past 24 Hours Test 11/23/16 11:44 11/23/16 16:25 11/23/16 20:18 11/24/16 08:04 Range/Units Bedside Glucose 152 120 145 156 70-90 mg/dl Test 11/24/16 08:12 Range/Units Hemoglobin 9.3 12.0-16.0 g/dL Hematocrit 30.5 37-47 % Sodium Level 130 136-145 mmol/L Potassium Level 4.6 3.5-5.1 mmol/L Chloride Level 95 98-107 mmol/L Carbon Dioxide Level 23 21-32 mmol/L Anion Gap 12.0 3-11 mmol/L Blood Urea Nitrogen 49 7-18 mg/dl Creatinine 11.00 0.60-1.20 mg/dl Est Creatinine Clear Calc Drug Dose 7.6 ml/min Estimated GFR () 3.8 Estimated GFR (Non- 3.3 BUN/Creatinine Ratio 4.4 10-20 Random Glucose 146 70-99 mg/dl Calcium Level 8.7 8.5-10.1 mg/dl Phosphorus Level 5.9 2.5-4.9 mg/dl Albumin 2.7 3.4-5.0 gm/dl ASSESSMENT and PLAN: s/p LUE AC cephalic v avf transposition Pt doing well post op. OK for d/c from vascular standpoint. Will see for staple removal in office in another week.
--- NOTE | 2016-11-24 12:40 | Pharmacy Progress Note ---
Pharmacy Glycemic Sign Off Nt Date of Service Nov 24, 2016. Assessment & Plan ASSESSMENT: * Pharmacy was consulted by Dr Krishna on 11/11/16 for glycemic control and to write orders per [facility] inpatient glycemic control protocol. * Major changes made by pharmacy to antidiabetic regimen include: * Substituted Lantus for Toujeo (outpatient insulin) * Instituted regimen known to work for patient based on previous admissions/ glycemic consults * Patient has been receiving/requiring 260 units of insulin per day for adequate glycemic control * BSGs ranging 120 - 158 mg/dl * Regimen has only required minor adjustments over the past 48hrs to achieve this level of control * Do not anticipate further changes in patient status that would quickly deteriorate glycemic control (i.e. patient to be NPO for upcoming procedure, steroids tapering, starting tube feedings, etc). PLAN FOR INPATIENT GLYCEMIC CONTROL: No changes needed to current regimen. * Continue basal insulin with Lantus 85 units SQ BID * Continue NovoLog per scale ACHS/Q6hrs while NPO * Goal range = 110 -140 mg/dl * CF = 6 mg/dl/unit * CR = 1 unit for ever 2 g CHO consumed * Pharmacy is signing off of glycemic consult and will no longer be making adjustments to inpatient regimen. Please feel free to re-consult if needed. Thank you.
[2016-11-24] MEDS: NEPHROCAPS PO SCH (12:57)
[2016-11-24] MEDS: CEROVITE ADV FORMULA TAB PO SCH (12:57)
[2016-11-24] MEDS: TOCOPHERYL, DL-ALPHA 400 INTER.UNIT CAP PO SCH (12:57)
[2016-11-24] MEDS: PYRIDOXINE HCL 50 MG TAB PO SCH (12:57)
[2016-11-24] MEDS: PANTOprazole SOD 40 MG TAB PO SCH (12:57)
[2016-11-24] MEDS: ATORVASTATIN 40 MG TAB PO SCH (12:58)
[2016-11-24] MEDS: ASCORBIC ACID 500 MG TAB PO SCH (12:58)
[2016-11-24] MEDS: CHOLECALCIFEROL 1000 INTER.UNIT TAB PO SCH (12:58)
[2016-11-24] MEDS: FAMOTIDINE 20 MG TAB PO SCH (12:58)
[2016-11-24] MEDS: DOXYCYCLINE HYCLATE 100 MG CAP PO SCH ×2 (12:58→20:00)
[2016-11-24] MEDS: ALLOPURINOL 100 MG TAB PO SCH (12:58)
[2016-11-24] MEDS: PREGABALIN 50 MG CAP PO SCH (13:01)
[2016-11-24] MEDS: HEPARIN SOD (PORCINE) 1000 UNIT/ML 10 ML VIAL IV SCH ×4 (17:15→19:15)
[2016-11-24] MEDS ORDERED: HEPARIN SOD (PORCINE) 1000 UNIT/ML 10 ML VIAL IV SCH (17:15)
[2016-11-24] MEDS ORDERED: NURSING VERBAL MED ORDER ONE (19:30)
[2016-11-24] MEDS ORDERED: SODIUM CHLORIDE 0.9% 500ML 500 ML IV ONE (19:45)
[2016-11-24] MEDS: DICLOFENAC SOD 1% GEL 100 GM TUBE EXT PRN (21:12)
--- NOTE | 2016-11-24 21:33 | Progress Note ---
Subjective Date of Service: Nov 24, 2016. Subjective Pt evaluation today including: conversation w/ patient, physical exam, chart review, lab review Patient reports feeling well except for neck pain and back pain which is unchanged from yesterday, Problem List Medical Problems: (1) Acute respiratory failure with hypoxia and hypercarbia Status: Acute (2) Altered mental status Status: Acute (3) Anasarca Status: Acute (4) Anasarca Status: Acute (5) Bilateral cellulitis of lower leg Status: Acute (6) Bilateral lower leg cellulitis Status: Acute (7) Change in mental status Status: Acute (8) Chronic renal failure Status: Acute (9) CO2 retention Status: Acute (10) Contusion of multiple sites Status: Acute (11) Dehydration Status: Acute (12) Dyspnea on exertion Status: Acute (13) Fall Status: Acute (14) Fall Status: Acute (15) Fever Status: Acute (16) Fever Status: Acute (17) Generalized weakness Status: Acute (18) Hypercarbia Status: Acute (19) Hyperkalemia Status: Acute (20) Hypokalemia Status: Acute (21) Hypoventilation Status: Acute (22) Hypoxemia Status: Acute (23) Hypoxia Status: Acute (24) Lumbar strain Status: Acute (25) Metabolic acidosis Status: Acute (26) Nail avulsion of toe Status: Acute (27) Obesity Status: Acute (28) Respiratory acidosis Status: Acute (29) Respiratory failure Status: Acute (30) Weakness Status: Acute (31) Weight gain Status: Acute (32) Wrist pain Status: Acute Review of Systems Constitutional: No fever, No chills Eyes: No worsening of vision, No eye pain ENT: No hearing loss, No unusual epistaxis Respiratory: No cough, No sputum Cardiac: No chest pain, No orthopnea Abdomen: No pain, No nausea Musculoskeletal: No joint pain Neurologic: No memory loss, No paralysis All Other Systems: Reviewed and Negative Medications Current Inpatient Medications Medications (Trade) Dose Ordered Sig/Duyen Route Start Time Stop Time Status Last Admin Dose Admin Albuterol/ Ipratropium (Duoneb) 3 ml QIDR INH 11/11/16 16:00 12/11/16 15:59 11/24/16 20:04 3 ML Allopurinol (Zyloprim Tab) 100 mg DAILY PO 11/12/16 09:00 12/12/16 08:59 11/24/16 12:58 100 MG Atorvastatin Calcium (Lipitor Tab) 40 mg DAILY PO 11/12/16 09:00 12/12/16 08:59 11/24/16 12:58 40 MG Vitamin B Complex/ Vit C/Folic Acid (Nephrocaps) 1 cap QAM PO 11/12/16 09:00 12/12/16 08:59 11/24/16 12:57 1 CAP Calcium Acetate (Phoslo Cap) 667 mg ACHS PO 11/11/16 16:00 12/11/16 15:59 11/24/16 21:23 667 MG Cholecalciferol (Vitamin D Tab) 1,000 inter.unit DAILY PO 11/12/16 09:00 12/12/16 08:59 11/24/16 12:58 1,000 INTER.UNIT Famotidine (Pepcid Tab) 20 mg DAILY PO 11/12/16 09:00 12/12/16 08:59 11/24/16 12:58 20 MG Salmeterol Xinafoate/ Fluticasone (Advair Diskus 500/50 Inh) 1 puff BID INH 11/11/16 21:00 12/11/16 20:59 11/24/16 21:11 1 PUFF Metoprolol Succinate (Toprol Xl Tab) 150 mg SuMoWeFr@0900 PO 11/12/16 09:00 12/12/16 08:59 11/23/16 07:42 150 MG Multivitamins/ Minerals (Multivitamin W/ Minerals Tab) 1 tab DAILY PO 11/12/16 09:00 12/12/16 08:59 11/24/16 12:57 1 TAB Pantoprazole Sodium (Protonix Tab) 40 mg DAILY PO 11/12/16 09:00 12/12/16 08:59 11/24/16 12:57 40 MG Pyridoxine HCl (Vitamin B-6 Tab) 200 mg DAILY PO 11/12/16 09:00 12/12/16 08:59 11/24/16 12:57 200 MG Silver Sulfadiazine (Silvadene 1% Crm 50GM Jar) 1 appln DAILY EXT 11/12/16 09:00 12/12/16 08:59 11/24/16 07:37 1 APPLN Tiotropium [place] (Spiriva Handihaler Inhaler) 1 puff DAILY INH 11/12/16 09:00 12/12/16 08:59 11/24/16 07:37 1 PUFF Ascorbic Acid (Vitamin C Tab) 1,000 mg DAILY PO 11/12/16 09:00 12/12/16 08:59 11/24/16 12:58 1,000 MG [id number] Acetate (Vitamin E Cap) 800 interunit DAILY PO 11/12/16 09:00 12/12/16 08:59 11/24/16 12:57 800 INTERUNIT Heparin Sodium (Porcine) (Heparin Sq 5000 Unit/0.5ml) 5,000 unit Q12 SQ 11/11/16 21:00 12/11/16 20:59 11/23/16 21:33 5,000 UNIT Pregabalin (Lyrica Cap) 50 mg DAILY PO 11/12/16 09:00 12/12/16 08:59 11/24/16 13:01 50 MG Miconazole Nitrate (Desenex Powder) 1 appln PRN PRN EXT 11/11/16 17:15 12/11/16 17:14 11/16/16 09:10 1 APPLN Doxycycline Hyclate (Vibramycin Cap) 100 mg BID PO 11/11/16 21:00 12/11/16 20:59 Future hold 11/24/16 20:00 100 MG Insulin Aspart (novoLOG ASPART) SLIDING SCALE ACHS SC 11/12/16 11:00 12/12/16 10:59 11/24/16 18:31 27 UNITS Glucose (Glucose 40% Gel) 15-30 GRAMS 15 GRAMS... UD PRN PO 11/12/16 14:15 12/12/16 14:14 Glucose (Glucose Chew Tab) 4-8 Tablets 4 Tabl... UD PRN PO 11/12/16 14:15 12/12/16 14:14 Dextrose (Dextrose 50% 50ML Syringe) 25-50ML OF 50% DW IV FOR... UD PRN IV 11/12/16 14:15 12/12/16 14:14 Glucagon (Glucagon Inj) 1 mg UD PRN SQ 11/12/16 14:15 12/12/16 14:14 Ketotifen Fumarate (Zaditor 0.025% Op Soln) 1 drops BID OPB 11/16/16 20:13 12/16/16 20:12 11/24/16 21:19 1 DROPS Insulin Glargine (Lantus Vial) SEE PROTOCOL TEXT BID SC 11/17/16 20:00 12/17/16 19:59 11/24/16 09:16 85 UNITS Ondansetron HCl (Zofran Odt) 4 mg Q6H PRN PO 11/19/16 11:30 12/19/16 11:29 11/23/16 19:11 4 MG Lidocaine (Lidoderm Patch 5%) 1 patch QAM TD 11/21/16 09:30 12/21/16 09:29 11/24/16 07:37 1 PATCH Miscellaneous (Remove Lidoderm Patch) 1 ea DAILY@21 N/A 11/21/16 21:00 12/21/16 20:59 11/24/16 21:22 1 EA Acetaminophen/ Hydrocodone Bitart ([place] 5/325 Tab) 1 tab Q6H PRN PO 11/21/16 20:15 12/05/16 20:14 11/24/16 09:18 1 TAB Hydromorphone HCl (Dilaudid Inj) 1 mg Q6H PRN IV 11/22/16 12:45 11/29/16 09:00 11/24/16 21:11 1 MG Diclofenac Sodium (Voltaren 1% Top Gel) 1 appln BID PRN EXT 11/24/16 19:30 12/24/16 19:29 11/24/16 21:12 1 APPLN Sodium Chloride 500 ml @ 166.667 mls/hr Q3H ONCE IV 11/24/16 19:45 11/24/16 22:44 11/24/16 19:45 166.667 MLS/HR Objective Vital Signs Date Time Temp Pulse Resp B/P (MAP) Pulse Ox O2 Delivery O2 Flow Rate FiO2 11/24/16 20:09 103 98 35 11/24/16 20:05 103 17 98 BiPAP/CPAP 35 11/24/16 19:43 91/57 (68) 11/24/16 18:00 Nasal Cannula 2.0 11/24/16 15:22 101 90 35 11/24/16 15:22 101 17 90 BiPAP/CPAP 35 11/24/16 15:22 36.8 95 18 103/64 (77) 100 BiPAP 11/24/16 11:47 36.8 88 121/89 (100) 11/24/16 11:30 105 130/86 11/24/16 11:15 96 112/51 11/24/16 11:00 96 117/52 11/24/16 10:45 96 96/47 11/24/16 10:30 94 89/48 11/24/16 10:15 113 73/46 11/24/16 10:00 89 96/52 11/24/16 09:45 92 107/57 11/24/16 09:30 92 115/56 11/24/16 09:21 93 124/56 11/24/16 09:11 36.8 91 100/52 (68) 11/24/16 08:04 88 20 93 Nasal Cannula 2.0 11/24/16 08:00 95 Nasal Cannula 2.0 11/24/16 07:31 92 11/24/16 07:29 132 20 93 Nasal Cannula 2.0 11/24/16 07:17 36.7 91 20 97/52 (67) 95 Nasal Cannula 2.0 11/24/16 00:00 BiPAP 11/23/16 23:09 36.6 95 18 88/53 (65) 92 BiPAP Physical Exam General Appearance: WD/WN, no apparent distress ENT: normal ENT inspection Neck: supple, no adenopathy, thyroid normal Respiratory/Chest: chest non-tender, lungs clear, normal breath sounds Cardiovascular: regular rate, rhythm, no edema, no gallop Abdomen: normal bowel sounds, non tender Extremities: normal inspection, no pedal edema Skin: normal color Laboratory Results Last 24 Hours Test 11/24/16 08:04 11/24/16 08:12 11/24/16 11:40 11/24/16 16:39 Bedside Glucose 156 mg/dl 128 mg/dl 116 mg/dl Hemoglobin 9.3 g/dL Hematocrit 30.5 % Sodium Level 130 mmol/L Potassium Level 4.6 mmol/L Chloride Level 95 mmol/L Carbon Dioxide Level 23 mmol/L Anion Gap 12.0 mmol/L Blood Urea Nitrogen 49 mg/dl Creatinine 11.00 mg/dl Est Creatinine Clear Calc Drug Dose 7.6 ml/min Estimated GFR () 3.8 Estimated GFR (Non- 3.3 BUN/Creatinine Ratio 4.4 Random Glucose 146 mg/dl Calcium Level 8.7 mg/dl Phosphorus Level 5.9 mg/dl Albumin 2.7 gm/dl Test 11/24/16 20:00 Bedside Glucose 161 mg/dl Assessment and Plan (1) Positive blood culture Assessment & Plan: (1) Positive blood culture (2) Cellulitis of leg Acute on Chronic Hypercarbic Respiratory Failure with COPD Exacerbation: Resolved, excessive diuresis and now o2 sat 94% on 2 L via NC - Initial treatment with BiPAP, IV Bicarb, and Emergent HD - At baseline - utilizing BiPAP at night and chronic continuous O2 - Pulmonology followed and S/O - recommendations for trach but patient declined Bilateral Leg Cellulitis: RESOLVED - One positive BCx which is likely contaminant - Likely underlying insufficiency - ID Following - Completed 7 days IV Vancomycin and back on Doxycycline prophylaxis, continue this on discharge ESRD on Dialysis with S/P L AV Fistula Transposition 11/18: - Plans to convert to MWF routine - Nephrology following - HD performed on 11/21, due again outpatient on 11/24 Neck and upper back pain - Lidoderm, Percocet - Dilaudid IV only for breakthrough pain however requesting if frequency can be change to q6hr - continue therapy to keep patient moving - hold on discharge since pain not controlled and having difficulty with his knee and needs extra help at home -Patient will likely be discharged tomorrow once pain has been controlled. will calculate amount of opiates in past 24 hours and will convert to PO. T2DM: A1c 5.9 - Glycemic management DVT Prophylaxis: Heparin SC BID Continued [facility] stay due to: multiple IV medications needed Discharge planning: home with home health (2) Cellulitis of leg Continued [facility] stay due to: multiple IV medications needed Discharge planning: home with home health
[2016-11-25] VITALS (26 sets, daily range): BP systolic 81–126; BP diastolic 44–67; PULSE 88–108; TEMP 36.4–36.7; O2SAT 90–96
[2016-11-25] MEDS: HYDROmorphone INJ 1 MG/ML SYR IV PRN ×2 (03:46→09:39)
[2016-11-25] MEDS: CALCIUM ACETATE 667MG GELCAP PO SCH ×4 (07:02→21:55)
[2016-11-25] MEDS: HYDROCODONE/ACETAMOPHEN 5/325MG TAB PO PRN (07:04)
[2016-11-25] MEDS: ALBUT/IPRATROP 3MG/0.5MG NEB 3 ML VIAL INH SCH ×4 (07:19→20:59)
[2016-11-25] MEDS: HEPARIN SOD 5000 UNIT/0.5 ML CARP SQ SCH ×2 (07:55→20:49)
[2016-11-25] MEDS: TIOTROPIUM BROMIDE 5 PUFF/90 MCG INH INH SCH (07:59)
[2016-11-25] MEDS: FLUTICASONE/SALMETEROL (ADVAIR) 500/50 INH 14 PUFF INH SCH ×2 (07:59→20:07)
[2016-11-25] MEDS: LIDODERM (LIDOCAINE) PATCH 5% TD SCH (08:00)
[2016-11-25] MEDS: SILVER SULFADIAZINE 1% CR 50 GM JAR EXT SCH (08:00)
[2016-11-25] MEDS: DICLOFENAC SOD 1% GEL 100 GM TUBE EXT PRN (08:00)
[2016-11-25] MEDS: KETOTIFEN FUMARATE (ZADITOR) 0.025% 5 ML BTL OPB SCH ×2 (08:00→20:08)
[2016-11-25] MEDS: DOXYCYCLINE HYCLATE 100 MG CAP PO SCH ×2 (08:00→20:08)
[2016-11-25] MEDS: ONDANSETRON 4MG OD TAB PO PRN ×2 (08:49→20:06)
[2016-11-25] MEDS: INSULIN ASPART 100 UNITS/ML 3 ML PEN SC SCH ×4 (09:59→20:45)
[2016-11-25] MEDS: INSULIN GLARGINE SC SCH ×2 (09:59→20:49)
--- NOTE | 2016-11-25 10:59 | Progress Note ---
Subjective Date of Service: Nov 25, 2016. Problem List Medical Problems: (1) Acute respiratory failure with hypoxia and hypercarbia Status: Acute (2) Altered mental status Status: Acute (3) Anasarca Status: Acute (4) Anasarca Status: Acute (5) Bilateral cellulitis of lower leg Status: Acute (6) Bilateral lower leg cellulitis Status: Acute (7) Change in mental status Status: Acute (8) Chronic renal failure Status: Acute (9) CO2 retention Status: Acute (10) Contusion of multiple sites Status: Acute (11) Dehydration Status: Acute (12) Dyspnea on exertion Status: Acute (13) Fall Status: Acute (14) Fall Status: Acute (15) Fever Status: Acute (16) Fever Status: Acute (17) Generalized weakness Status: Acute (18) Hypercarbia Status: Acute (19) Hyperkalemia Status: Acute (20) Hypokalemia Status: Acute (21) Hypoventilation Status: Acute (22) Hypoxemia Status: Acute (23) Hypoxia Status: Acute (24) Lumbar strain Status: Acute (25) Metabolic acidosis Status: Acute (26) Nail avulsion of toe Status: Acute (27) Obesity Status: Acute (28) Respiratory acidosis Status: Acute (29) Respiratory failure Status: Acute (30) Weakness Status: Acute (31) Weight gain Status: Acute (32) Wrist pain Status: Acute Objective Vital Signs Date Time Temp Pulse Resp B/P (MAP) Pulse Ox O2 Delivery O2 Flow Rate FiO2 11/25/16 08:00 93 Nasal Cannula 2.0 11/25/16 07:34 36.4 102 20 126/67 (86) 93 2.0 11/25/16 07:22 105 22 90 Nasal Cannula 2.0 11/25/16 00:30 36.7 103 20 95/50 (65) 96 CPAP 2.0 11/24/16 23:23 BiPAP 11/24/16 21:47 103 92 35 11/24/16 20:09 103 98 35 11/24/16 20:05 103 17 98 BiPAP/CPAP 35 11/24/16 19:43 91/57 (68) 11/24/16 18:00 36.7 107 67/47 (54) 98 2.0 11/24/16 18:00 Nasal Cannula 2.0 11/24/16 15:22 101 90 35 11/24/16 15:22 101 17 90 BiPAP/CPAP 35 11/24/16 15:22 36.8 95 18 103/64 (77) 100 BiPAP 11/24/16 11:47 36.8 88 121/89 (100) 11/24/16 11:30 105 130/86 11/24/16 11:15 96 112/51 11/24/16 11:00 96 117/52 Laboratory Results Last 24 Hours Test 11/24/16 11:40 11/24/16 16:39 11/24/16 20:00 11/25/16 07:27 Bedside Glucose 128 mg/dl 116 mg/dl 161 mg/dl 155 mg/dl Assessment and Plan (1) Positive blood culture (2) Cellulitis of leg Continued [facility] stay due to: multiple IV medications needed Discharge planning: home with home health
--- NOTE | 2016-11-25 11:13 | Progress Note ---
Subjective Date of Service: Nov 25, 2016. Subjective Pt evaluation today including: conversation w/ patient, physical exam, chart review, lab review Patient reports no significant changes from yesterday. Patient reports that she continues to have left sided neck and upper back pain. Patient point towards her left trap. Problem List Medical Problems: (1) Acute respiratory failure with hypoxia and hypercarbia Status: Acute (2) Altered mental status Status: Acute (3) Anasarca Status: Acute (4) Anasarca Status: Acute (5) Bilateral cellulitis of lower leg Status: Acute (6) Bilateral lower leg cellulitis Status: Acute (7) Change in mental status Status: Acute (8) Chronic renal failure Status: Acute (9) CO2 retention Status: Acute (10) Contusion of multiple sites Status: Acute (11) Dehydration Status: Acute (12) Dyspnea on exertion Status: Acute (13) Fall Status: Acute (14) Fall Status: Acute (15) Fever Status: Acute (16) Fever Status: Acute (17) Generalized weakness Status: Acute (18) Hypercarbia Status: Acute (19) Hyperkalemia Status: Acute (20) Hypokalemia Status: Acute (21) Hypoventilation Status: Acute (22) Hypoxemia Status: Acute (23) Hypoxia Status: Acute (24) Lumbar strain Status: Acute (25) Metabolic acidosis Status: Acute (26) Nail avulsion of toe Status: Acute (27) Obesity Status: Acute (28) Respiratory acidosis Status: Acute (29) Respiratory failure Status: Acute (30) Weakness Status: Acute (31) Weight gain Status: Acute (32) Wrist pain Status: Acute Review of Systems Constitutional: No fever, No chills Respiratory: No cough, No sputum Cardiac: No chest pain, No orthopnea Abdomen: No pain, No nausea Neurologic: No memory loss, No paralysis Skin: No rash, No itch All Other Systems: Reviewed and Negative Medications Current Inpatient Medications Medications (Trade) Dose Ordered Sig/Duyen Route Start Time Stop Time Status Last Admin Dose Admin Albuterol/ Ipratropium (Duoneb) 3 ml QIDR INH 11/11/16 16:00 12/11/16 15:59 11/25/16 20:59 3 ML Allopurinol (Zyloprim Tab) 100 mg DAILY PO 11/12/16 09:00 12/12/16 08:59 11/25/16 16:56 100 MG Atorvastatin Calcium (Lipitor Tab) 40 mg DAILY PO 11/12/16 09:00 12/12/16 08:59 11/25/16 16:56 40 MG Vitamin B Complex/ Vit C/Folic Acid (Nephrocaps) 1 cap QAM PO 11/12/16 09:00 12/12/16 08:59 11/25/16 16:56 1 CAP Calcium Acetate (Phoslo Cap) 667 mg ACHS PO 11/11/16 16:00 12/11/16 15:59 11/25/16 21:55 667 MG Cholecalciferol (Vitamin D Tab) 1,000 inter.unit DAILY PO 11/12/16 09:00 12/12/16 08:59 11/25/16 17:00 1,000 INTER.UNIT Famotidine (Pepcid Tab) 20 mg DAILY PO 11/12/16 09:00 12/12/16 08:59 11/25/16 16:58 20 MG Salmeterol Xinafoate/ Fluticasone (Advair Diskus 500/50 Inh) 1 puff BID INH 11/11/16 21:00 12/11/16 20:59 11/25/16 20:07 1 PUFF Metoprolol Succinate (Toprol Xl Tab) 150 mg SuMoWeFr@0900 PO 11/12/16 09:00 12/12/16 08:59 11/23/16 07:42 150 MG Multivitamins/ Minerals (Multivitamin W/ Minerals Tab) 1 tab DAILY PO 11/12/16 09:00 12/12/16 08:59 11/25/16 16:57 1 TAB Pantoprazole Sodium (Protonix Tab) 40 mg DAILY PO 11/12/16 09:00 12/12/16 08:59 11/25/16 16:57 40 MG Pyridoxine HCl (Vitamin B-6 Tab) 200 mg DAILY PO 11/12/16 09:00 12/12/16 08:59 11/25/16 16:58 200 MG Silver Sulfadiazine (Silvadene 1% Crm 50GM Jar) 1 appln DAILY EXT 11/12/16 09:00 12/12/16 08:59 11/25/16 08:00 1 APPLN Tiotropium [place] (Spiriva Handihaler Inhaler) 1 puff DAILY INH 11/12/16 09:00 12/12/16 08:59 11/25/16 07:59 1 PUFF Ascorbic Acid (Vitamin C Tab) 1,000 mg DAILY PO 11/12/16 09:00 12/12/16 08:59 11/25/16 16:59 1,000 MG oo-Lsovf-Kvkisamlrv Acetate (Vitamin E Cap) 800 interunit DAILY PO 11/12/16 09:00 12/12/16 08:59 11/25/16 16:58 800 INTERUNIT Heparin Sodium (Porcine) (Heparin Sq 5000 Unit/0.5ml) 5,000 unit Q12 SQ 11/11/16 21:00 12/11/16 20:59 11/25/16 20:49 5,000 UNIT Pregabalin (Lyrica Cap) 50 mg DAILY PO 11/12/16 09:00 12/12/16 08:59 11/25/16 16:55 50 MG Miconazole Nitrate (Desenex Powder) 1 appln PRN PRN EXT 11/11/16 17:15 12/11/16 17:14 11/25/16 17:00 1 APPLN Doxycycline Hyclate (Vibramycin Cap) 100 mg BID PO 11/11/16 21:00 12/11/16 20:59 Future hold 11/25/16 20:08 100 MG Insulin Aspart (novoLOG ASPART) SLIDING SCALE ACHS SC 11/12/16 11:00 12/12/16 10:59 11/25/16 18:24 18 UNITS Glucose (Glucose 40% Gel) 15-30 GRAMS 15 GRAMS... UD PRN PO 11/12/16 14:15 12/12/16 14:14 Glucose (Glucose Chew Tab) 4-8 Tablets 4 Tabl... UD PRN PO 11/12/16 14:15 12/12/16 14:14 Dextrose (Dextrose 50% 50ML Syringe) 25-50ML OF 50% DW IV FOR... UD PRN IV 11/12/16 14:15 12/12/16 14:14 Glucagon (Glucagon Inj) 1 mg UD PRN SQ 11/12/16 14:15 12/12/16 14:14 Ketotifen Fumarate (Zaditor 0.025% Op Soln) 1 drops BID OPB 11/16/16 20:13 12/16/16 20:12 11/25/16 20:08 1 DROPS Insulin Glargine (Lantus Vial) SEE PROTOCOL TEXT BID SC 11/17/16 20:00 12/17/16 19:59 11/25/16 20:49 80 UNITS Ondansetron HCl (Zofran Odt) 4 mg Q6H PRN PO 11/19/16 11:30 12/19/16 11:29 11/25/16 20:06 4 MG Lidocaine (Lidoderm Patch 5%) 1 patch QAM TD 11/21/16 09:30 12/21/16 09:29 11/25/16 08:00 1 PATCH Miscellaneous (Remove Lidoderm Patch) 1 ea DAILY@21 N/A 11/21/16 21:00 12/21/16 20:59 11/25/16 20:51 1 EA Diclofenac Sodium (Voltaren 1% Top Gel) 1 appln BID PRN EXT 11/24/16 19:30 12/24/16 19:29 11/25/16 08:00 1 APPLN Oxycodone HCl (Roxicodone Immediate Rel Tab) 10 mg Q4H PO 11/25/16 11:15 12/09/16 11:14 11/25/16 21:55 10 MG Heparin Sodium (Porcine) (Heparin Iv Bolus) 1,000 unit 0800 IV 11/26/16 08:00 11/26/16 23:00 Heparin Sodium (Porcine) (Heparin Iv Bolus) 1,000 unit Q1H IV 11/26/16 08:00 11/26/16 23:00 Objective Vital Signs Date Time Temp Pulse Resp B/P (MAP) Pulse Ox O2 Delivery O2 Flow Rate FiO2 11/25/16 08:00 93 Nasal Cannula 2.0 11/25/16 07:34 36.4 102 20 126/67 (86) 93 2.0 11/25/16 07:22 105 22 90 Nasal Cannula 2.0 11/25/16 00:30 36.7 103 20 95/50 (65) 96 CPAP 2.0 11/24/16 23:23 BiPAP 11/24/16 21:47 103 92 35 11/24/16 20:09 103 98 35 11/24/16 20:05 103 17 98 BiPAP/CPAP 35 11/24/16 19:43 91/57 (68) 11/24/16 18:00 36.7 107 67/47 (54) 98 2.0 11/24/16 18:00 Nasal Cannula 2.0 11/24/16 15:22 101 90 35 11/24/16 15:22 101 17 90 BiPAP/CPAP 35 11/24/16 15:22 36.8 95 18 103/64 (77) 100 BiPAP 11/24/16 11:47 36.8 88 121/89 (100) 11/24/16 11:30 105 130/86 11/24/16 11:15 96 112/51 Physical Exam Comments: General Appearance: WD/WN, no apparent distress ENT: normal ENT inspection Neck: supple, no adenopathy, thyroid normal Respiratory/Chest: chest non-tender, lungs clear, normal breath sounds Cardiovascular: regular rate, rhythm, no edema, no gallop Abdomen: normal bowel sounds, non tender Extremities: normal inspection, no pedal edema Skin: normal color MSK: Tenderness to palpation on left trap and left supraspinatus Laboratory Results Last 24 Hours Test 11/24/16 11:40 11/24/16 16:39 11/24/16 20:00 11/25/16 07:27 Bedside Glucose 128 mg/dl 116 mg/dl 161 mg/dl 155 mg/dl Assessment and Plan (1) Positive blood culture Assessment & Plan: (1) Positive blood culture (2) Cellulitis of leg Acute on Chronic Hypercarbic Respiratory Failure with COPD Exacerbation: Resolved, excessive diuresis and now o2 sat 94% on 2 L via NC - Initial treatment with BiPAP, IV Bicarb, and Emergent HD - At baseline - utilizing BiPAP at night and chronic continuous O2 - Pulmonology followed and S/O - recommendations for trach but patient declined Bilateral Leg Cellulitis: RESOLVED - One positive BCx which is likely contaminant - Likely underlying insufficiency - ID Following - Completed 7 days IV Vancomycin and back on Doxycycline prophylaxis, continue this on discharge ESRD on Dialysis with S/P L AV Fistula Transposition 11/18: - Plans to convert to MWF routine - Nephrology following - HD performed today Neck and upper back pain - Lidoderm, -changed to po meds. - continue therapy to keep patient moving - hold on discharge since pain not controlled and having difficulty with his knee and needs extra help at home -Patient will likely be discharged tomorrow once pain has been controlled. May benefit from trigger point injections T2DM: A1c 5.9 - Glycemic management Patient will prefer to be d/c tomorrow as is getting surgery today and will be unable to help her at home, rendering her unsafe for d/c DVT Prophylaxis: Heparin SC BID Continued [facility] stay due to: multiple IV medications needed Discharge planning: home with home health (2) Cellulitis of leg Continued [facility] stay due to: other (uncontrolled pain) Discharge planning: home with home health
[2016-11-25] MEDS: OXYCODONE HCL IR 5 MG TAB (IMMEDIATE RELEASE) PO SCH ×4 (12:19→21:55)
[2016-11-25] MEDS: PREGABALIN 50 MG CAP PO SCH (16:55)
[2016-11-25] MEDS: NEPHROCAPS PO SCH (16:56)
[2016-11-25] MEDS: ATORVASTATIN 40 MG TAB PO SCH (16:56)
[2016-11-25] MEDS: ALLOPURINOL 100 MG TAB PO SCH (16:56)
[2016-11-25] MEDS: PANTOprazole SOD 40 MG TAB PO SCH (16:57)
[2016-11-25] MEDS: CEROVITE ADV FORMULA TAB PO SCH (16:57)
[2016-11-25] MEDS: PYRIDOXINE HCL 50 MG TAB PO SCH (16:58)
[2016-11-25] MEDS: TOCOPHERYL, DL-ALPHA 400 INTER.UNIT CAP PO SCH (16:58)
[2016-11-25] MEDS: FAMOTIDINE 20 MG TAB PO SCH (16:58)
[2016-11-25] MEDS: ASCORBIC ACID 500 MG TAB PO SCH (16:59)
[2016-11-25] MEDS: CHOLECALCIFEROL 1000 INTER.UNIT TAB PO SCH (17:00)
[2016-11-25] MEDS: MICONAZOLE NITRATE POWDER 43 GM EXT PRN (17:00)
[2016-11-25] MEDS ORDERED: NURSING VERBAL MED ORDER ONE (18:45)
--- NOTE | 2016-11-25 18:57 | Nephrology Progress Note ---
Nephrology Progress Note Date of Service Nov 25, 2016. Chief Complaint ESRD Subjective Hemalatha unfortunately continues to struggle with neck pain. She is weak and her functional status continues to decline. During more than one conversation with the patient today, she was sleeping and having difficulty staying awake. She was refusing to wear BIPAP at those times. Hemodialysis was complicated by cramping and discomfort. Net UF was 2 L. Blood pressure has been low following the treatment. Review of Systems A complete review of systems was performed. Pertinent positives are noted above. All other systems are negative. Vital Signs Last 8 Hrs Date Time Temp Pulse Resp B/P (MAP) Pulse Ox O2 Delivery O2 Flow Rate FiO2 11/25/16 18:30 36.7 102 20 81/53 (62) 94 Nasal Cannula 2.0 11/25/16 17:09 Nasal Cannula 2.0 11/25/16 16:31 36.6 108 107/49 (68) 11/25/16 16:00 104 101/44 11/25/16 15:45 106 107/50 11/25/16 15:30 100 97/66 11/25/16 15:15 101 96/65 11/25/16 15:00 103 115/60 11/25/16 14:45 104 111/60 11/25/16 14:30 100 118/54 11/25/16 14:15 101 108/54 11/25/16 14:00 100 109/49 11/25/16 13:45 97 104/57 11/25/16 13:30 91 110/55 11/25/16 13:15 96 116/53 11/25/16 13:00 98 117/65 11/25/16 12:51 98 110/60 11/25/16 12:50 36.6 98 126/62 (83) 11/25/16 11:36 106 22 94 Nasal Cannula 2.0 I & O 24-Hour Column 11/26/16 08:00 Intake Total 240 ml Output Total 2000 ml Balance -1760 ml Last Recorded Weight Weight (Kilograms): 150.900 Physical Exam General Appearance: no apparent distress, + obese Head: normocephalic, atraumatic Eyes: normal inspection, sclerae normal ENT: normal ENT inspection, pharynx normal Neck: supple, + pertinent finding (thick, TDC) Respiratory/Chest: no respiratory distress, no accessory muscle use, + decreased breath sounds Cardiovascular: regular rate, rhythm Abdomen/GI: non tender, soft Extremities/Musculoskelatal: normal inspection, + pedal edema Neurologic/Psych: alert, + depressed affect Family History Cancer Diabetes mellitus Gallbladder disease Heart disease Lung disease Negative for CKD / ESRD Social History Smoking Status: Former smoker Drug Use: none Marital Status: Housing Status: lives with family Occupation: unemployed . Lives at home. Former smoker Laboratory Results Past 24 Hours Test 11/24/16 20:00 11/25/16 07:27 11/25/16 16:07 Bedside Glucose 161 mg/dl (70-90) 155 mg/dl (70-90) 116 mg/dl (70-90) Allergies Coded Allergies: Daptomycin (Verified Allergy, Intermediate, HIVES/ITCHING, 11/18/16) itching Sulfamethoxazole w/Trimethoprim (Verified Allergy, Intermediate, RASH, ) Iodine (Verified Allergy, Unknown, 11/11/16) Shellfish (Verified Allergy, Unknown, 11/11/16) Codeine (Verified Adverse Reaction, Mild, NAUSEA, 11/17/16) has tolerated morphine Uncoded Allergies: kristina wipes (Allergy, Severe, red rash, excoriation, 09/19/16) comfort baths (Adverse Reaction, Severe, rash, "breaks out all over", ) Medications Current Inpatient Medications Medications (Trade) Dose Ordered Sig/Duyen Route Start Time Stop Time Status Last Admin Dose Admin Albuterol/ Ipratropium (Duoneb) 3 ml QIDR INH 11/11/16 16:00 12/11/16 15:59 11/25/16 11:34 3 ML Allopurinol (Zyloprim Tab) 100 mg DAILY PO 11/12/16 09:00 12/12/16 08:59 11/25/16 16:56 100 MG Atorvastatin Calcium (Lipitor Tab) 40 mg DAILY PO 11/12/16 09:00 12/12/16 08:59 11/25/16 16:56 40 MG Vitamin B Complex/ Vit C/Folic Acid (Nephrocaps) 1 cap QAM PO 11/12/16 09:00 12/12/16 08:59 11/25/16 16:56 1 CAP Calcium Acetate (Phoslo Cap) 667 mg ACHS PO 11/11/16 16:00 12/11/16 15:59 11/25/16 16:57 667 MG Cholecalciferol (Vitamin D Tab) 1,000 inter.unit DAILY PO 11/12/16 09:00 12/12/16 08:59 11/25/16 17:00 1,000 INTER.UNIT Famotidine (Pepcid Tab) 20 mg DAILY PO 11/12/16 09:00 12/12/16 08:59 11/25/16 16:58 20 MG Salmeterol Xinafoate/ Fluticasone (Advair Diskus 500/50 Inh) 1 puff BID INH 11/11/16 21:00 12/11/16 20:59 11/25/16 07:59 1 PUFF Metoprolol Succinate (Toprol Xl Tab) 150 mg SuMoWeFr@0900 PO 11/12/16 09:00 12/12/16 08:59 11/23/16 07:42 150 MG Multivitamins/ Minerals (Multivitamin W/ Minerals Tab) 1 tab DAILY PO 11/12/16 09:00 12/12/16 08:59 11/25/16 16:57 1 TAB Pantoprazole Sodium (Protonix Tab) 40 mg DAILY PO 11/12/16 09:00 12/12/16 08:59 11/25/16 16:57 40 MG Pyridoxine HCl (Vitamin B-6 Tab) 200 mg DAILY PO 11/12/16 09:00 12/12/16 08:59 11/25/16 16:58 200 MG Silver Sulfadiazine (Silvadene 1% Crm 50GM Jar) 1 appln DAILY EXT 11/12/16 09:00 12/12/16 08:59 11/25/16 08:00 1 APPLN Tiotropium [place] (Spiriva Handihaler Inhaler) 1 puff DAILY INH 11/12/16 09:00 12/12/16 08:59 11/25/16 07:59 1 PUFF Ascorbic Acid (Vitamin C Tab) 1,000 mg DAILY PO 11/12/16 09:00 12/12/16 08:59 11/25/16 16:59 1,000 MG pn-Esqky-Veqzpmhssn Acetate (Vitamin E Cap) 800 interunit DAILY PO 11/12/16 09:00 12/12/16 08:59 11/25/16 16:58 800 INTERUNIT Heparin Sodium (Porcine) (Heparin Sq 5000 Unit/0.5ml) 5,000 unit Q12 SQ 11/11/16 21:00 12/11/16 20:59 11/24/16 21:26 5,000 UNIT Pregabalin (Lyrica Cap) 50 mg DAILY PO 11/12/16 09:00 12/12/16 08:59 11/25/16 16:55 50 MG Miconazole Nitrate (Desenex Powder) 1 appln PRN PRN EXT 11/11/16 17:15 12/11/16 17:14 11/25/16 17:00 1 APPLN Doxycycline Hyclate (Vibramycin Cap) 100 mg BID PO 11/11/16 21:00 12/11/16 20:59 Future hold 11/24/16 20:00 100 MG Insulin Aspart (novoLOG ASPART) SLIDING SCALE ACHS SC 11/12/16 11:00 12/12/16 10:59 11/25/16 18:24 18 UNITS Glucose (Glucose 40% Gel) 15-30 GRAMS 15 GRAMS... UD PRN PO 11/12/16 14:15 12/12/16 14:14 Glucose (Glucose Chew Tab) 4-8 Tablets 4 Tabl... UD PRN PO 11/12/16 14:15 12/12/16 14:14 Dextrose (Dextrose 50% 50ML Syringe) 25-50ML OF 50% DW IV FOR... UD PRN IV 11/12/16 14:15 12/12/16 14:14 Glucagon (Glucagon Inj) 1 mg UD PRN SQ 11/12/16 14:15 12/12/16 14:14 Ketotifen Fumarate (Zaditor 0.025% Op Soln) 1 drops BID OPB 11/16/16 20:13 12/16/16 20:12 11/25/16 08:00 1 DROPS Insulin Glargine (Lantus Vial) SEE PROTOCOL TEXT BID SC 11/17/16 20:00 12/17/16 19:59 11/25/16 09:59 85 UNITS Ondansetron HCl (Zofran Odt) 4 mg Q6H PRN PO 11/19/16 11:30 12/19/16 11:29 11/25/16 08:49 4 MG Lidocaine (Lidoderm Patch 5%) 1 patch QAM TD 11/21/16 09:30 12/21/16 09:29 11/25/16 08:00 1 PATCH Miscellaneous (Remove Lidoderm Patch) 1 ea DAILY@21 N/A 11/21/16 21:00 12/21/16 20:59 11/24/16 21:22 1 EA Diclofenac Sodium (Voltaren 1% Top Gel) 1 appln BID PRN EXT 11/24/16 19:30 12/24/16 19:29 11/25/16 08:00 1 APPLN Oxycodone HCl (Roxicodone Immediate Rel Tab) 10 mg Q4H PO 11/25/16 11:15 12/09/16 11:14 11/25/16 17:50 10 MG Heparin Sodium (Porcine) (Heparin Iv Bolus) 1,000 unit 0800 IV 11/26/16 08:00 11/26/16 23:00 Heparin Sodium (Porcine) (Heparin Iv Bolus) 1,000 unit Q1H IV 11/26/16 08:00 11/26/16 23:00 Miscellaneous Information (Nursing Verbal Med Order) 1 ea ONE ONCE N/A 11/25/16 18:45 11/25/16 18:46 UNV Impression (1) ESRD on hemodialysis (2) Hypercapnic respiratory failure (3) Obesity hypoventilation syndrome (4) Cellulitis of leg Jazmin is a 61-year-old female admitted to the hospital for evaluation respiratory failure w/ CO2 narcosis. Her medical history is complicated and significant for ESRD due to cardiorenal syndrome and diuretic resistant volume overload, HTN, obesity (BMI 56) and obesity hypoventilation syndrome. Jazmin was previously on HD at [facility] but will be transitioning to [facility] in [place] at hospital discharge. She dialyzes via a TDC. Transposition of RUE AVF was performed during hospitalization. Recommendations ESRD: -- HD today complicated by cramping and pain limiting UF -- Plan HD tomorrow for additional UF -- 4.5hr F-180NR Qb300 Qd A1.5 3K 2.5 Ca EDW 137.7 kg Heparin 2000 load w/ 1000 units hourly -- AVF transposition on 11/18/[address] Thapa ANEMIA: -- EPO 4000 units with HD CKD/MBD: -- Renal diet -- Calcium acetate QAC PULM: -- I discussed in detail with the patient, her and her daughter today the importance of frequent and sustained use of BIPAP
[2016-11-25] MEDS ORDERED: SODIUM CHLORIDE 0.9% 500ML 500 ML IV ONE (19:15)
[2016-11-26] VITALS (23 sets, daily range): BP systolic 106–156; BP diastolic 51–78; PULSE 20–112; TEMP 36.4–36.7; O2SAT 90–95
[2016-11-26] MEDS: OXYCODONE HCL IR 5 MG TAB (IMMEDIATE RELEASE) PO SCH ×6 (02:20→21:51)
[2016-11-26] MEDS: CALCIUM ACETATE 667MG GELCAP PO SCH ×4 (06:18→21:46)
[2016-11-26] MEDS: ONDANSETRON 4MG OD TAB PO PRN (07:33)
[2016-11-26] MEDS: ALBUT/IPRATROP 3MG/0.5MG NEB 3 ML VIAL INH SCH ×4 (07:35→19:36)
[2016-11-26] MEDS: HEPARIN SOD (PORCINE) 1000 UNIT/ML 10 ML VIAL IV SCH ×18 (08:00→22:41)
[2016-11-26] MEDS: INSULIN ASPART 100 UNITS/ML 3 ML PEN SC SCH ×4 (08:34→22:10)
[2016-11-26] MEDS: INSULIN GLARGINE SC SCH ×2 (08:36→22:11)
[2016-11-26] MEDS: HEPARIN SOD 5000 UNIT/0.5 ML CARP SQ SCH ×2 (09:00→22:12)
[2016-11-26] MEDS: METOPROLOL SUCC 50MG EXT REL TAB PO SCH (09:00)
[2016-11-26 09:20] LABS: HEMATOCRIT 30.8 % (37-47)
[2016-11-26 10:11] LABS: BUN/CREATININE RATIO 3.4 (10-20); CALCIUM 9.1 mg/dl (8.5-10.1); CREATININE 6.4 mg/dl (0.60-1.20); PHOSPHORUS 3.3 mg/dl (2.5-4.9); POTASSIUM 4.3 mmol/L (3.5-5.1)
--- NOTE | 2016-11-26 10:30 | Dialysis Progress Note ---
Hemodialysis Note Date of Service Nov 26, 2016. Chief Complaint ESRD Subjective No acute events overnight. Hemalatha was seen and evaluated during hemodialysis this morning. She was tolerating dialysis well. Qb appropriate. BP appropriate. UF goal 4 kg. Jazmin is sleeping comfortably during treatment. Review of Systems A complete review of systems was performed. Pertinent positives are noted above. All other systems are negative. Vital Signs Last 8 Hrs Date Time Temp Pulse Resp B/P (MAP) Pulse Ox O2 Delivery O2 Flow Rate FiO2 11/26/16 10:00 97 121/55 11/26/16 09:45 95 118/55 11/26/16 09:30 96 126/55 11/26/16 09:15 99 156/69 11/26/16 09:00 84 129/51 11/26/16 08:45 36.4 95 134/59 (84) 11/26/16 07:07 36.7 103 20 122/65 (84) 92 Nasal Cannula 2.0 Last Recorded Weight Weight (Kilograms): 148.000 Physical Exam General Appearance: no apparent distress, + obese Head: normocephalic, atraumatic Eyes: normal inspection, sclerae normal Neck: + pertinent finding (TDC) Respiratory/Chest: no respiratory distress, no accessory muscle use Cardiovascular: regular rate, rhythm Extremities/Musculoskelatal: + pertinent finding (+4 pitting BL LE edema) Family History Negative for CKD / ESRD Social History Smoking Status: Former smoker Drug Use: none Marital Status: Housing Status: lives with family Occupation: unemployed . Lives at home. Former smoker Laboratory Results Past 24 Hours 11/26/16 08:26 11/26/16 08:26 Test 11/25/16 11:05 11/25/16 16:07 11/25/16 20:22 11/26/16 07:35 Bedside Glucose 172 mg/dl (70-90) 116 mg/dl (70-90) 94 mg/dl (70-90) 122 mg/dl (70-90) Test 11/26/16 08:26 Anion Gap 11.0 mmol/L (3-11) Est Creatinine Clear Calc Drug Dose 13.1 ml/min Estimated GFR () 7.4 Estimated GFR (Non- 6.4 BUN/Creatinine Ratio 3.4 (10-20) Calcium Level 9.1 mg/dl (8.5-10.1) Phosphorus Level 3.3 mg/dl (2.5-4.9) Albumin 2.5 gm/dl (3.4-5.0) Allergies Coded Allergies: Daptomycin (Verified Allergy, Intermediate, HIVES/ITCHING, 11/18/16) itching Sulfamethoxazole w/Trimethoprim (Verified Allergy, Intermediate, RASH, ) Iodine (Verified Allergy, Unknown, 11/11/16) Shellfish (Verified Allergy, Unknown, 11/11/16) Codeine (Verified Adverse Reaction, Mild, NAUSEA, 11/17/16) has tolerated morphine Uncoded Allergies: kristina wipes (Allergy, Severe, red rash, excoriation, 09/19/16) comfort baths (Adverse Reaction, Severe, rash, "breaks out all over", ) Medications Current Inpatient Medications Medications (Trade) Dose Ordered Sig/Duyen Route Start Time Stop Time Status Last Admin Dose Admin Albuterol/ Ipratropium (Duoneb) 3 ml QIDR INH 11/11/16 16:00 12/11/16 15:59 11/25/16 20:59 3 ML Allopurinol (Zyloprim Tab) 100 mg DAILY PO 11/12/16 09:00 12/12/16 08:59 11/25/16 16:56 100 MG Atorvastatin Calcium (Lipitor Tab) 40 mg DAILY PO 11/12/16 09:00 12/12/16 08:59 11/25/16 16:56 40 MG Vitamin B Complex/ Vit C/Folic Acid (Nephrocaps) 1 cap QAM PO 11/12/16 09:00 12/12/16 08:59 11/25/16 16:56 1 CAP Calcium Acetate (Phoslo Cap) 667 mg ACHS PO 11/11/16 16:00 12/11/16 15:59 11/26/16 06:18 667 MG Cholecalciferol (Vitamin D Tab) 1,000 inter.unit DAILY PO 11/12/16 09:00 12/12/16 08:59 11/25/16 17:00 1,000 INTER.UNIT Famotidine (Pepcid Tab) 20 mg DAILY PO 11/12/16 09:00 12/12/16 08:59 11/25/16 16:58 20 MG Salmeterol Xinafoate/ Fluticasone (Advair Diskus 500/50 Inh) 1 puff BID INH 11/11/16 21:00 12/11/16 20:59 11/25/16 20:07 1 PUFF Metoprolol Succinate (Toprol Xl Tab) 150 mg SuMoWeFr@0900 PO 11/12/16 09:00 12/12/16 08:59 11/23/16 07:42 150 MG Multivitamins/ Minerals (Multivitamin W/ Minerals Tab) 1 tab DAILY PO 11/12/16 09:00 12/12/16 08:59 11/25/16 16:57 1 TAB Pantoprazole Sodium (Protonix Tab) 40 mg DAILY PO 11/12/16 09:00 12/12/16 08:59 11/25/16 16:57 40 MG Pyridoxine HCl (Vitamin B-6 Tab) 200 mg DAILY PO 11/12/16 09:00 12/12/16 08:59 11/25/16 16:58 200 MG Silver Sulfadiazine (Silvadene 1% Crm 50GM Jar) 1 appln DAILY EXT 11/12/16 09:00 12/12/16 08:59 11/25/16 08:00 1 APPLN Tiotropium [place] (Spiriva Handihaler Inhaler) 1 puff DAILY INH 11/12/16 09:00 12/12/16 08:59 11/25/16 07:59 1 PUFF Ascorbic Acid (Vitamin C Tab) 1,000 mg DAILY PO 11/12/16 09:00 12/12/16 08:59 11/25/16 16:59 1,000 MG et-Qqygw-Rzgrhiuowh Acetate (Vitamin E Cap) 800 interunit DAILY PO 11/12/16 09:00 12/12/16 08:59 11/25/16 16:58 800 INTERUNIT Heparin Sodium (Porcine) (Heparin Sq 5000 Unit/0.5ml) 5,000 unit Q12 SQ 11/11/16 21:00 12/11/16 20:59 11/25/16 20:49 5,000 UNIT Pregabalin (Lyrica Cap) 50 mg DAILY PO 11/12/16 09:00 12/12/16 08:59 11/25/16 16:55 50 MG Miconazole Nitrate (Desenex Powder) 1 appln PRN PRN EXT 11/11/16 17:15 12/11/16 17:14 11/25/16 17:00 1 APPLN Doxycycline Hyclate (Vibramycin Cap) 100 mg BID PO 11/11/16 21:00 12/11/16 20:59 Future hold 11/25/16 20:08 100 MG Insulin Aspart (novoLOG ASPART) SLIDING SCALE ACHS SC 11/12/16 11:00 12/12/16 10:59 11/26/16 08:34 8 UNITS Glucose (Glucose 40% Gel) 15-30 GRAMS 15 GRAMS... UD PRN PO 11/12/16 14:15 12/12/16 14:14 Glucose (Glucose Chew Tab) 4-8 Tablets 4 Tabl... UD PRN PO 11/12/16 14:15 12/12/16 14:14 Dextrose (Dextrose 50% 50ML Syringe) 25-50ML OF 50% DW IV FOR... UD PRN IV 11/12/16 14:15 12/12/16 14:14 Glucagon (Glucagon Inj) 1 mg UD PRN SQ 11/12/16 14:15 12/12/16 14:14 Ketotifen Fumarate (Zaditor 0.025% Op Soln) 1 drops BID OPB 11/16/16 20:13 12/16/16 20:12 11/25/16 20:08 1 DROPS Insulin Glargine (Lantus Vial) SEE PROTOCOL TEXT BID SC 11/17/16 20:00 12/17/16 19:59 11/26/16 08:36 85 UNITS Ondansetron HCl (Zofran Odt) 4 mg Q6H PRN PO 11/19/16 11:30 12/19/16 11:29 11/26/16 07:33 4 MG Lidocaine (Lidoderm Patch 5%) 1 patch QAM TD 11/21/16 09:30 12/21/16 09:29 11/25/16 08:00 1 PATCH Miscellaneous (Remove Lidoderm Patch) 1 ea DAILY@21 N/A 11/21/16 21:00 12/21/16 20:59 11/25/16 20:51 1 EA Diclofenac Sodium (Voltaren 1% Top Gel) 1 appln BID PRN EXT 11/24/16 19:30 12/24/16 19:29 11/25/16 08:00 1 APPLN Oxycodone HCl (Roxicodone Immediate Rel Tab) 10 mg Q4H PO 11/25/16 11:15 12/09/16 11:14 11/26/16 06:18 10 MG Heparin Sodium (Porcine) (Heparin Iv Bolus) 1,000 unit 0800 IV 11/26/16 08:00 11/26/16 23:00 Heparin Sodium (Porcine) (Heparin Iv Bolus) 1,000 unit Q1H IV 11/26/16 08:00 11/26/16 23:00 Impression (1) ESRD on hemodialysis (2) Hypercapnic respiratory failure (3) Obesity hypoventilation syndrome (4) Cellulitis of leg Jazmin is a 61-year-old female admitted to the hospital for evaluation respiratory failure w/ CO2 narcosis. Her medical history is complicated and significant for ESRD due to cardiorenal syndrome and diuretic resistant volume overload, HTN, obesity (BMI 56) and obesity hypoventilation syndrome. Jazmin was previously on HD at [facility] but will be transitioning to [facility] in [place] at hospital discharge. She dialyzes via a TDC. Transposition of RUE AVF was performed during hospitalization. Recommendations ESRD: -- HD today: recent treatments have been complicated by failure to obtain adequate fluid removal due to pain and discomfort -- Will try today for more aggressive UF -- Evaluate tomorrow for possible additional UF -- 4.5hr F-180NR Qb300 Qd A1.5 3K 2.5 Ca EDW 137.7 kg Heparin 2000 load w/ 1000 units hourly -- AVF transposition on 11/18/[address] Thapa ANEMIA: -- EPO 4000 units with HD CKD/MBD: -- Renal diet -- Calcium acetate QAC PULM: -- I discussed in detail with the patient, her and her daughter today the importance of frequent and sustained use of BIPAP
[2016-11-26] MEDS: SILVER SULFADIAZINE 1% CR 50 GM JAR EXT SCH (10:52)
[2016-11-26] MEDS ORDERED: EPOETIN ALFA 4000 UNITS/ML VIAL IV SCH (11:15)
[2016-11-26] MEDS: DOXYCYCLINE HYCLATE 100 MG CAP PO SCH ×2 (12:34→21:45)
[2016-11-26] MEDS: PANTOprazole SOD 40 MG TAB PO SCH (12:35)
[2016-11-26] MEDS: ATORVASTATIN 40 MG TAB PO SCH (12:35)
[2016-11-26] MEDS: CEROVITE ADV FORMULA TAB PO SCH (12:35)
[2016-11-26] MEDS: PYRIDOXINE HCL 50 MG TAB PO SCH (12:35)
[2016-11-26] MEDS: NEPHROCAPS PO SCH (12:35)
[2016-11-26] MEDS: ALLOPURINOL 100 MG TAB PO SCH (12:35)
[2016-11-26] MEDS: PREGABALIN 50 MG CAP PO SCH (12:38)
[2016-11-26] MEDS: ASCORBIC ACID 500 MG TAB PO SCH (12:39)
[2016-11-26] MEDS: CHOLECALCIFEROL 1000 INTER.UNIT TAB PO SCH (12:39)
[2016-11-26] MEDS: FAMOTIDINE 20 MG TAB PO SCH (12:40)
[2016-11-26] MEDS: TOCOPHERYL, DL-ALPHA 400 INTER.UNIT CAP PO SCH (12:41)
[2016-11-26] MEDS: LIDODERM (LIDOCAINE) PATCH 5% TD SCH (12:41)
[2016-11-26] MEDS: KETOTIFEN FUMARATE (ZADITOR) 0.025% 5 ML BTL OPB SCH ×2 (12:43→21:45)
[2016-11-26] MEDS: FLUTICASONE/SALMETEROL (ADVAIR) 500/50 INH 14 PUFF INH SCH ×2 (12:43→21:45)
[2016-11-26] MEDS: TIOTROPIUM BROMIDE 5 PUFF/90 MCG INH INH SCH (12:44)
--- NOTE | 2016-11-26 21:04 | Progress Note ---
Subjective Date of Service: Nov 26, 2016. Subjective Pt evaluation today including: conversation w/ patient, physical exam, chart review, lab review, review of studies Patient reports no improvement in regards to her left shoulder pain and headaches. Patient denies SOB, nausea, vomiting, weakness. Problem List Medical Problems: (1) Acute respiratory failure with hypoxia and hypercarbia Status: Acute (2) Altered mental status Status: Acute (3) Anasarca Status: Acute (4) Anasarca Status: Acute (5) Bilateral cellulitis of lower leg Status: Acute (6) Bilateral lower leg cellulitis Status: Acute (7) Change in mental status Status: Acute (8) Chronic renal failure Status: Acute (9) CO2 retention Status: Acute (10) Contusion of multiple sites Status: Acute (11) Dehydration Status: Acute (12) Dyspnea on exertion Status: Acute (13) Fall Status: Acute (14) Fall Status: Acute (15) Fever Status: Acute (16) Fever Status: Acute (17) Generalized weakness Status: Acute (18) Hypercarbia Status: Acute (19) Hyperkalemia Status: Acute (20) Hypokalemia Status: Acute (21) Hypoventilation Status: Acute (22) Hypoxemia Status: Acute (23) Hypoxia Status: Acute (24) Lumbar strain Status: Acute (25) Metabolic acidosis Status: Acute (26) Nail avulsion of toe Status: Acute (27) Obesity Status: Acute (28) Respiratory acidosis Status: Acute (29) Respiratory failure Status: Acute (30) Weakness Status: Acute (31) Weight gain Status: Acute (32) Wrist pain Status: Acute Review of Systems Constitutional: No fever, No chills Eyes: No worsening of vision, No eye pain ENT: No hearing loss, No unusual epistaxis Respiratory: No cough, No sputum Cardiac: No chest pain, No orthopnea Abdomen: No pain, No nausea Musculoskeletal: No joint pain Neurologic: No memory loss, No paralysis Heme: No abnormal bleeding/bruising All Other Systems: Reviewed and Negative Medications Current Inpatient Medications Medications (Trade) Dose Ordered Sig/Duyen Route Start Time Stop Time Status Last Admin Dose Admin Albuterol/ Ipratropium (Duoneb) 3 ml QIDR INH 11/11/16 16:00 12/11/16 15:59 11/26/16 19:36 3 ML Allopurinol (Zyloprim Tab) 100 mg DAILY PO 9/13/17 09:00 12/12/16 08:59 11/26/16 12:35 100 MG Atorvastatin Calcium (Lipitor Tab) 40 mg DAILY PO 11/12/16 09:00 12/12/16 08:59 11/26/16 12:35 40 MG Vitamin B Complex/ Vit C/Folic Acid (Nephrocaps) 1 cap QAM PO 11/12/16 09:00 12/12/16 08:59 11/26/16 12:35 1 CAP Calcium Acetate (Phoslo Cap) 667 mg ACHS PO 11/11/16 16:00 12/11/16 15:59 11/26/16 18:46 667 MG Cholecalciferol (Vitamin D Tab) 1,000 inter.unit DAILY PO 11/12/16 09:00 12/12/16 08:59 11/26/16 12:39 1,000 INTER.UNIT Famotidine (Pepcid Tab) 20 mg DAILY PO 11/12/16 09:00 12/12/16 08:59 11/26/16 12:40 20 MG Salmeterol Xinafoate/ Fluticasone (Advair Diskus 500/50 Inh) 1 puff BID INH 11/11/16 21:00 12/11/16 20:59 11/26/16 12:43 1 PUFF Metoprolol Succinate (Toprol Xl Tab) 150 mg SuMoWeFr@0900 PO 11/12/16 09:00 12/12/16 08:59 11/23/16 07:42 150 MG Multivitamins/ Minerals (Multivitamin W/ Minerals Tab) 1 tab DAILY PO 11/12/16 09:00 12/12/16 08:59 11/26/16 12:35 1 TAB Pantoprazole Sodium (Protonix Tab) 40 mg DAILY PO 11/12/16 09:00 12/12/16 08:59 11/26/16 12:35 40 MG Pyridoxine HCl (Vitamin B-6 Tab) 200 mg DAILY PO 11/12/16 09:00 12/12/16 08:59 11/26/16 12:35 200 MG Silver Sulfadiazine (Silvadene 1% Crm 50GM Jar) 1 appln DAILY EXT 11/12/16 09:00 12/12/16 08:59 11/26/16 10:52 1 APPLN Tiotropium [place] (Spiriva Handihaler Inhaler) 1 puff DAILY INH 11/12/16 09:00 12/12/16 08:59 11/26/16 12:44 1 PUFF Ascorbic Acid (Vitamin C Tab) 1,000 mg DAILY PO 11/12/16 09:00 12/12/16 08:59 11/26/16 12:39 1,000 MG ze-Qzizs-Yovnzkqvax Acetate (Vitamin E Cap) 800 interunit DAILY PO 11/12/16 09:00 12/12/16 08:59 11/26/16 12:41 800 INTERUNIT Heparin Sodium (Porcine) (Heparin Sq 5000 Unit/0.5ml) 5,000 unit Q12 SQ 11/11/16 21:00 12/11/16 20:59 11/25/16 20:49 5,000 UNIT Pregabalin (Lyrica Cap) 50 mg DAILY PO 11/12/16 09:00 12/12/16 08:59 11/26/16 12:38 50 MG Miconazole Nitrate (Desenex Powder) 1 appln PRN PRN EXT 11/11/16 17:15 12/11/16 17:14 11/25/16 17:00 1 APPLN Doxycycline Hyclate (Vibramycin Cap) 100 mg BID PO 11/11/16 21:00 12/11/16 20:59 Future hold 11/26/16 12:34 100 MG Insulin Aspart (novoLOG ASPART) SLIDING SCALE ACHS SC 11/12/16 11:00 12/12/16 10:59 11/26/16 08:34 8 UNITS Glucose (Glucose 40% Gel) 15-30 GRAMS 15 GRAMS... UD PRN PO 11/12/16 14:15 12/12/16 14:14 Glucose (Glucose Chew Tab) 4-8 Tablets 4 Tabl... UD PRN PO 11/12/16 14:15 12/12/16 14:14 Dextrose (Dextrose 50% 50ML Syringe) 25-50ML OF 50% DW IV FOR... UD PRN IV 11/12/16 14:15 12/12/16 14:14 Glucagon (Glucagon Inj) 1 mg UD PRN SQ 11/12/16 14:15 12/12/16 14:14 Ketotifen Fumarate (Zaditor 0.025% Op Soln) 1 drops BID OPB 11/16/16 20:13 12/16/16 20:12 11/26/16 12:43 1 DROPS Insulin Glargine (Lantus Vial) SEE PROTOCOL TEXT BID SC 11/17/16 20:00 12/17/16 19:59 11/26/16 08:36 85 UNITS Ondansetron HCl (Zofran Odt) 4 mg Q6H PRN PO 11/19/16 11:30 12/19/16 11:29 11/26/16 07:33 4 MG Lidocaine (Lidoderm Patch 5%) 1 patch QAM TD 11/21/16 09:30 12/21/16 09:29 11/26/16 12:41 1 PATCH Miscellaneous (Remove Lidoderm Patch) 1 ea DAILY@21 N/A 11/21/16 21:00 12/21/16 20:59 11/25/16 20:51 1 EA Diclofenac Sodium (Voltaren 1% Top Gel) 1 appln BID PRN EXT 11/24/16 19:30 12/24/16 19:29 11/25/16 08:00 1 APPLN Oxycodone HCl (Roxicodone Immediate Rel Tab) 10 mg Q4H PO 11/25/16 11:15 12/09/16 11:14 11/26/16 18:46 10 MG Heparin Sodium (Porcine) (Heparin Iv Bolus) 1,000 unit 0800 IV 11/26/16 08:00 11/26/16 23:00 Heparin Sodium (Porcine) (Heparin Iv Bolus) 1,000 unit Q1H IV 11/26/16 08:00 11/26/16 23:00 Objective Vital Signs Date Time Temp Pulse Resp B/P (MAP) Pulse Ox O2 Delivery O2 Flow Rate FiO2 11/26/16 19:36 109 18 90 Nasal Cannula 2.0 11/26/16 15:02 36.4 108 20 108/66 (80) 92 Nasal Cannula 2.0 11/26/16 14:07 100 18 90 Nasal Cannula 2.0 11/26/16 12:11 36.4 112 119/65 (83) 11/26/16 12:00 111 109/62 11/26/16 11:45 108 110/61 9/27/17 11:30 112 115/60 11/26/16 11:15 98 121/78 11/26/16 11:00 103 116/75 11/26/16 10:45 101 118/52 11/26/16 10:30 75 124/54 11/26/16 10:15 86 152/64 11/26/16 10:00 97 121/55 11/26/16 09:45 95 118/55 11/26/16 09:30 96 126/55 11/26/16 09:15 99 156/69 11/26/16 09:00 84 129/51 11/26/16 08:45 36.4 95 134/59 (84) 11/26/16 08:00 92 Nasal Cannula 2.0 11/26/16 07:07 36.7 103 20 122/65 (84) 92 Nasal Cannula 2.0 11/26/16 01:52 90 92 35 11/26/16 00:06 36.6 106 20 106/66 (79) 95 CPAP 2.0 20 11/26/16 00:00 BiPAP 11/25/16 22:54 88 94 35 11/25/16 21:45 106 105/66 (79) 11/25/16 21:01 102 22 95 Nasal Cannula 2.0 Physical Exam General Appearance: WD/WN, no apparent distress Neck: supple, no adenopathy, thyroid normal Respiratory/Chest: chest non-tender, lungs clear, normal breath sounds Cardiovascular: regular rate, rhythm, no edema, no gallop, no JVD Abdomen: normal bowel sounds, non tender, soft Extremities: normal range of motion, non-tender Lymphatic: no adenopathy Laboratory Results Last 24 Hours Test 11/26/16 07:35 11/26/16 08:26 11/26/16 11:21 11/26/16 16:37 Bedside Glucose 122 mg/dl 122 mg/dl 132 mg/dl Hemoglobin 9.4 g/dL Hematocrit 30.8 % Sodium Level 134 mmol/L Potassium Level 4.3 mmol/L Chloride Level 100 mmol/L Carbon Dioxide Level 23 mmol/L Anion Gap 11.0 mmol/L Blood Urea Nitrogen 22 mg/dl Creatinine 6.40 mg/dl Est Creatinine Clear Calc Drug Dose 13.1 ml/min Estimated GFR () 7.4 Estimated GFR (Non- 6.4 BUN/Creatinine Ratio 3.4 Random Glucose 136 mg/dl Calcium Level 9.1 mg/dl Phosphorus Level 3.3 mg/dl Albumin 2.5 gm/dl Assessment and Plan (1) Positive blood culture Assessment & Plan: (1) Positive blood culture (2) Cellulitis of leg Acute on Chronic Hypercarbic Respiratory Failure with COPD Exacerbation: Resolved, excessive diuresis and now o2 sat 94% on 2 L via NC - Initial treatment with BiPAP, IV Bicarb, and Emergent HD - At baseline - utilizing BiPAP at night and chronic continuous O2 - Pulmonology followed and S/O - recommendations for trach but patient declined Bilateral Leg Cellulitis: RESOLVED - One positive BCx which is likely contaminant - Likely underlying insufficiency - ID Following - Completed 7 days IV Vancomycin and back on Doxycycline prophylaxis, continue this on discharge ESRD on Dialysis with S/P L AV Fistula Transposition 11/18: - Plans to convert to MWF routine - Nephrology following - HD performed today Neck and upper back pain - Lidoderm, -changed to po meds. - continue therapy to keep patient moving - hold on discharge since pain not controlled and having difficulty with his knee and needs extra help at home -Pain has not been controlled yet. May benefit from trigger point injections T2DM: A1c 5.9 - Glycemic management If pain is not improved, may do a trigger point injection in her left trap. DVT Prophylaxis: Heparin SC BID Continued [facility] stay due to: multiple IV medications needed Discharge planning: home with home health (2) Cellulitis of leg Continued [facility] stay due to: other (uncontrolled pain) Discharge planning: home with home health
[2016-11-27 00:19] VITALS: BP 86/60; PULSE 110; TEMP 36.3; O2SAT 93
[2016-11-27] MEDS: OXYCODONE HCL IR 5 MG TAB (IMMEDIATE RELEASE) PO SCH ×4 (01:33→14:20)
[2016-11-27 01:39] VITALS: BP 99/55
[2016-11-27] MEDS: CALCIUM ACETATE 667MG GELCAP PO SCH ×2 (06:05→10:53)
[2016-11-27] MEDS: ALBUT/IPRATROP 3MG/0.5MG NEB 3 ML VIAL INH SCH ×2 (07:05→11:17)
[2016-11-27 07:10] VITALS: PULSE 81; O2SAT 92
[2016-11-27 07:14] VITALS: BP 120/64; PULSE 108; TEMP 36.4; O2SAT 92
[2016-11-27] MEDS: ATORVASTATIN 40 MG TAB PO SCH (09:04)
[2016-11-27] MEDS: DOXYCYCLINE HYCLATE 100 MG CAP PO SCH (09:04)
[2016-11-27] MEDS: ALLOPURINOL 100 MG TAB PO SCH (09:04)
--- NOTE | 2016-11-27 09:04 | Nephrology Progress Note ---
Nephrology Progress Note Date of Service Nov 27, 2016. Chief Complaint ESRD Subjective No acute events overnight. Jazmin was sleeping while sitting in her bedside chair this morning. She continues to complain of neck pain. Appetite is poor. She requested to hold dialysis today. She noted some improvement in swelling following her treatment yesterday. Left arm with some itching but no pain. She is not using BIPAP during the day. Jazmin states that it is too uncomfortable given the persistent pain in her neck and right shoulder. Review of Systems A complete review of systems was performed. Pertinent positives are noted above. All other systems are negative. Vital Signs Last 8 Hrs Date Time Temp Pulse Resp B/P (MAP) Pulse Ox O2 Delivery O2 Flow Rate FiO2 11/27/16 07:14 36.4 108 20 120/64 (82) 92 Nasal Cannula 2.0 11/27/16 07:10 81 18 92 Nasal Cannula 2.0 11/27/16 01:39 99/55 (70) Last Recorded Weight Weight (Kilograms): 143.200 Physical Exam General Appearance: no apparent distress, + obese Head: normocephalic, atraumatic Eyes: normal inspection, sclerae normal ENT: normal ENT inspection, pharynx normal, + pertinent finding (oral mucosa dry) Neck: + pertinent finding (thick, RIJ HD TDC, tenderness along the right side of her neck and the OA area) Respiratory/Chest: lungs clear, no respiratory distress, no accessory muscle use, + decreased breath sounds Abdomen/GI: non tender, soft Extremities/Musculoskelatal: + pedal edema, + pertinent finding (RUE AVF) Neurologic/Psych: alert, normal mood/affect Family History Cancer Diabetes mellitus Gallbladder disease Heart disease Lung disease Negative for CKD / ESRD Social History Smoking Status: Former smoker Drug Use: none Marital Status: Housing Status: lives with family Occupation: unemployed . Lives at home. Former smoker Laboratory Results Past 24 Hours Test 11/26/16 11:21 11/26/16 16:37 11/26/16 20:55 11/27/16 08:00 Bedside Glucose 122 mg/dl (70-90) 132 mg/dl (70-90) 143 mg/dl (70-90) Allergies Coded Allergies: Daptomycin (Verified Allergy, Intermediate, HIVES/ITCHING, 11/18/16) itching Sulfamethoxazole w/Trimethoprim (Verified Allergy, Intermediate, RASH, ) Iodine (Verified Allergy, Unknown, 11/11/16) Shellfish (Verified Allergy, Unknown, 11/11/16) Codeine (Verified Adverse Reaction, Mild, NAUSEA, 11/17/16) has tolerated morphine Uncoded Allergies: kristina wipes (Allergy, Severe, red rash, excoriation, 09/19/16) comfort baths (Adverse Reaction, Severe, rash, "breaks out all over", ) Medications Current Inpatient Medications Medications (Trade) Dose Ordered Sig/Duyen Route Start Time Stop Time Status Last Admin Dose Admin Albuterol/ Ipratropium (Duoneb) 3 ml QIDR INH 11/11/16 16:00 12/11/16 15:59 11/27/16 07:05 3 ML Allopurinol (Zyloprim Tab) 100 mg DAILY PO 11/12/16 09:00 12/12/16 08:59 11/26/16 12:35 100 MG Atorvastatin Calcium (Lipitor Tab) 40 mg DAILY PO 11/12/16 09:00 12/12/16 08:59 11/26/16 12:35 40 MG Vitamin B Complex/ Vit C/Folic Acid (Nephrocaps) 1 cap QAM PO 11/12/16 09:00 12/12/16 08:59 11/26/16 12:35 1 CAP Calcium Acetate (Phoslo Cap) 667 mg ACHS PO 11/11/16 16:00 12/11/16 15:59 11/27/16 06:05 667 MG Cholecalciferol (Vitamin D Tab) 1,000 inter.unit DAILY PO 11/12/16 09:00 12/12/16 08:59 11/26/16 12:39 1,000 INTER.UNIT Famotidine (Pepcid Tab) 20 mg DAILY PO 11/12/16 09:00 12/12/16 08:59 11/26/16 12:40 20 MG Salmeterol Xinafoate/ Fluticasone (Advair Diskus 500/50 Inh) 1 puff BID INH 11/11/16 21:00 12/11/16 20:59 11/26/16 21:45 1 PUFF Metoprolol Succinate (Toprol Xl Tab) 150 mg SuMoWeFr@0900 PO 11/12/16 09:00 10/13/17 08:59 11/23/16 07:42 150 MG Multivitamins/ Minerals (Multivitamin W/ Minerals Tab) 1 tab DAILY PO 11/12/16 09:00 12/12/16 08:59 11/26/16 12:35 1 TAB Pantoprazole Sodium (Protonix Tab) 40 mg DAILY PO 11/12/16 09:00 12/12/16 08:59 11/26/16 12:35 40 MG Pyridoxine HCl (Vitamin B-6 Tab) 200 mg DAILY PO 11/12/16 09:00 12/12/16 08:59 11/26/16 12:35 200 MG Silver Sulfadiazine (Silvadene 1% Crm 50GM Jar) 1 appln DAILY EXT 11/12/16 09:00 12/12/16 08:59 11/26/16 10:52 1 APPLN Tiotropium [place] (Spiriva Handihaler Inhaler) 1 puff DAILY INH 11/12/16 09:00 12/12/16 08:59 11/26/16 12:44 1 PUFF Ascorbic Acid (Vitamin C Tab) 1,000 mg DAILY PO 11/12/16 09:00 12/12/16 08:59 11/26/16 12:39 1,000 MG rp-Ssayo-Eswqtndyea Acetate (Vitamin E Cap) 800 interunit DAILY PO 11/12/16 09:00 12/12/16 08:59 11/26/16 12:41 800 INTERUNIT Heparin Sodium (Porcine) (Heparin Sq 5000 Unit/0.5ml) 5,000 unit Q12 SQ 11/11/16 21:00 12/11/16 20:59 11/26/16 22:12 5,000 UNIT Pregabalin (Lyrica Cap) 50 mg DAILY PO 11/12/16 09:00 12/12/16 08:59 11/26/16 12:38 50 MG Miconazole Nitrate (Desenex Powder) 1 appln PRN PRN EXT 11/11/16 17:15 12/11/16 17:14 11/25/16 17:00 1 APPLN Doxycycline Hyclate (Vibramycin Cap) 100 mg BID PO 11/11/16 21:00 12/11/16 20:59 Future hold 11/26/16 21:45 100 MG Insulin Aspart (novoLOG ASPART) SLIDING SCALE ACHS SC 11/12/16 11:00 12/12/16 10:59 11/26/16 22:10 1 UNITS Glucose (Glucose 40% Gel) 15-30 GRAMS 15 GRAMS... UD PRN PO 11/12/16 14:15 12/12/16 14:14 Glucose (Glucose Chew Tab) 4-8 Tablets 4 Tabl... UD PRN PO 11/12/16 14:15 12/12/16 14:14 Dextrose (Dextrose 50% 50ML Syringe) 25-50ML OF 50% DW IV FOR... UD PRN IV 11/12/16 14:15 12/12/16 14:14 Glucagon (Glucagon Inj) 1 mg UD PRN SQ 11/12/16 14:15 12/12/16 14:14 Ketotifen Fumarate (Zaditor 0.025% Op Soln) 1 drops BID OPB 11/16/16 20:13 12/16/16 20:12 11/26/16 21:45 1 DROPS Insulin Glargine (Lantus Vial) SEE PROTOCOL TEXT BID SC 11/17/16 20:00 12/17/16 19:59 11/26/16 22:11 85 UNITS Ondansetron HCl (Zofran Odt) 4 mg Q6H PRN PO 11/19/16 11:30 12/19/16 11:29 11/26/16 07:33 4 MG Lidocaine (Lidoderm Patch 5%) 1 patch QAM TD 11/21/16 09:30 12/21/16 09:29 11/26/16 12:41 1 PATCH Miscellaneous (Remove Lidoderm Patch) 1 ea DAILY@21 N/A 11/21/16 21:00 12/21/16 20:59 11/26/16 21:46 1 EA Diclofenac Sodium (Voltaren 1% Top Gel) 1 appln BID PRN EXT 11/24/16 19:30 12/24/16 19:29 11/25/16 08:00 1 APPLN Oxycodone HCl (Roxicodone Immediate Rel Tab) 10 mg Q4H PO 11/25/16 11:15 12/09/16 11:14 11/27/16 06:05 10 MG Impression (1) ESRD on hemodialysis (2) Hypercapnic respiratory failure (3) Obesity hypoventilation syndrome (4) Cellulitis of leg Jazmin is a 61-year-old female admitted to the hospital for evaluation respiratory failure w/ CO2 narcosis. Her medical history is complicated and significant for ESRD due to cardiorenal syndrome and diuretic resistant volume overload, HTN, obesity (BMI 56) and obesity hypoventilation syndrome. Jazmin was previously on HD at [facility] but will be transitioning to [facility] in [place] at hospital discharge. She dialyzes via a TDC. Transposition of RUE AVF was performed during hospitalization. Recommendations ESRD: -- Plan HD tomorrow -- BP, electrolytes appropriate -- 4.5hr F-180NR Qb300 Qd A1.5 3K 2.5 Ca EDW 137.7 kg Heparin 2000 load w/ 1000 units hourly -- AVF transposition on 11/18/[address] Thapa ANEMIA: -- EPO 4000 units with HD CKD/MBD: -- Renal diet -- Calcium acetate QAC PULM: -- I discussed in detail with the patient, her and her daughter today the importance of frequent and sustained use of BIPAP
[2016-11-27] MEDS: PANTOprazole SOD 40 MG TAB PO SCH (09:05)
[2016-11-27] MEDS: ASCORBIC ACID 500 MG TAB PO SCH (09:05)
[2016-11-27] MEDS: NEPHROCAPS PO SCH (09:05)
[2016-11-27] MEDS: CEROVITE ADV FORMULA TAB PO SCH (09:05)
[2016-11-27] MEDS: PYRIDOXINE HCL 50 MG TAB PO SCH (09:06)
[2016-11-27] MEDS: CHOLECALCIFEROL 1000 INTER.UNIT TAB PO SCH (09:07)
[2016-11-27] MEDS: TOCOPHERYL, DL-ALPHA 400 INTER.UNIT CAP PO SCH (09:07)
[2016-11-27] MEDS: FAMOTIDINE 20 MG TAB PO SCH (09:07)
[2016-11-27] MEDS: FLUTICASONE/SALMETEROL (ADVAIR) 500/50 INH 14 PUFF INH SCH (09:09)
[2016-11-27] MEDS: KETOTIFEN FUMARATE (ZADITOR) 0.025% 5 ML BTL OPB SCH (09:14)
[2016-11-27] MEDS: PREGABALIN 50 MG CAP PO SCH (09:17)
[2016-11-27] MEDS: INSULIN ASPART 100 UNITS/ML 3 ML PEN SC SCH ×2 (09:20→13:16)
[2016-11-27 09:21] LABS: CALCIUM 10.1 mg/dl (8.5-10.1); CREATININE 6.1 mg/dl (0.60-1.20); PHOSPHORUS 3.8 mg/dl (2.5-4.9); POTASSIUM 4.9 mmol/L (3.5-5.1)
[2016-11-27] MEDS: INSULIN GLARGINE SC SCH (09:21)
[2016-11-27] MEDS: HEPARIN SOD 5000 UNIT/0.5 ML CARP SQ SCH (09:21)
[2016-11-27] MEDS: LIDODERM (LIDOCAINE) PATCH 5% TD SCH (09:23)
[2016-11-27] MEDS: SILVER SULFADIAZINE 1% CR 50 GM JAR EXT SCH (09:26)
[2016-11-27] MEDS: TIOTROPIUM BROMIDE 5 PUFF/90 MCG INH INH SCH (09:48)
[2016-11-27] MEDS ORDERED: LIDOCAINE HCL 1% 20 ML VIAL INFIL ONE (11:15)
[2016-11-27 11:17] VITALS: PULSE 81; O2SAT 93
--- NOTE | 2016-11-27 12:49 | Procedure Note: [facility] Only ---
Procedure Note Date of Service Nov 27, 2016. Procedure After obtaining verbal consent, and discussing risk and benefits. Patient agreed to have trigger point injections along her left trapezius. Area was cleaned with alcohol swabs. Gloves were used during procedure. 6 trigger points were found where I injected .2ml of solution in each trigger point. Solution had 2 ml of lidocaine and .5ml of depomedrol. Patient tolerated procedure and post care instructions were given. Each site was covered with a bandaid. Patient reports partial improvement from injection.
[2016-11-27] MEDS ORDERED: LYR50 PO (13:39)
[2016-11-27] MEDS ORDERED: LDDP5 TD (13:39)
[2016-11-27] MEDS ORDERED: RXC5 PO (13:39)
[2016-11-27 14:29] VITALS: BP 120/64; PULSE 81; TEMP 36.4; O2SAT 93
--- NOTE | 2016-11-27 21:18 | Discharge Summary ---
Discharge Summary Date of Service Nov 27, 2016. Discharge Summary Admission Date: Nov 11, 2016 at 15:21 Discharge Date: Nov 20, 2016 Discharge Disposition: Rehab Principal Diagnosis: Acute respiratory distress secondary to Obesity Hypoventilation syndrome Problems/Secondary Diagnoses: Obesity, ESRD, Neck pain, cellulitis Immunizations: Have You Had Influenza Vaccine: Yes Influenza Vaccine Date: Apr 15, 2012 History of Tetanus Vaccine?: No History of Pneumococcal: Yes Pneumococcal Date: Jan 13, 2013 History of Hepatitis B Vaccine: No Procedures: Procedure After obtaining verbal consent, and discussing risk and benefits. Patient agreed to have trigger point injections along her left trapezius. Area was cleaned with alcohol swabs. Gloves were used during procedure. 6 trigger points were found where I injected .2ml of solution in each trigger point. Solution had 2 ml of lidocaine and .5ml of depomedrol. Patient tolerated procedure and post care instructions were given. Each site was covered with a bandaid. Patient reports partial improvement from injection. Consultations: Nephrology Consultation Date & Providers Date of Consultation: Nov 11, 2016. Primary Care Provider: Emily Isaac C.R.N.P Referring Provider: Reason for Consultation ESRD requiring HD History of Present Illness Mrs. Gaytan is a 60 year old white female who is seen at the request of Dr. Krishna to provide inpatient HD. Medical records in the hospital EMR have been reviewed and are summarized as follows: Mrs. Gaytan has ESRD due to cardiorenal syndrome. She dialyzes at [facility] (4.5hr F-180NR Qb300 Qd A1.5 3K 2.5 Ca EDW 137.7 kg Heparin 2000 load w/ 1000 units hourly). Her medical history is also significant for morbid obesity w/ BMI 56, obesity hypoventilation syndrome, COPD, stable lung nodule, AODM, chronic LE edema and MGUS. Mrs. Gaytan has had several recent hospitalizations for hypercarbia. Sedatives have been discontinued and patient has been started on NIPPV. Her reports that she has been compliant with her NIPPV use. She has been using it 10 hours each night. This morning she stopped CPAP/BiPAP at 6 am in preparation for IHD. By 9 am she had become lethargic and weak. She suffered a near syncopal event. Her helped her to the floor and called 911. In the ED patient was found to have vBG w/ pH 7.14. Blood gas revealed a pure respiratory acidosis w/ CO2 75 and HCO3 25. CXR reveals a possible RLL infiltrate. Patient was also noted to have bilateral LE cellulitis. Past Medical/Surgical History Medical: # ESRD on HD # HTN # AODM # Obesity (BMI 56) # COPD - on chronic O2 at 3 L/min ATC # Obesity hypoventilation syndrome -- followed by pulmonology and maintained on intermittent BIPAP # Lung nodule - stable over several years of observation by pulmonology # Arthritis # Chronic lower extremity edema due to obesity hypoventilation syndrome/ pulmonary hypertension. Managed with PT for lymphedema, diuretics and hemodialysis. Echocardiogram October 2014 revealed LVEF 55 - 60%, mild LVH, RVSP 45, mild RV dilation and moderate TR # Serum monoclonal light chain - monitored by Dr. Delong # History of hypercalcemia - also monitored Surgical: # IJ THC placement 07/25/16 # L antecubital AVF created 08/19/[address] Thapa Allergies Coded Allergies: Daptomycin (Verified Allergy, Mild, HIVES, 11/11/16) itching Iodine (Verified Allergy, Unknown, 11/11/16) Shellfish (Verified Allergy, Unknown, 11/11/16) Sulfamethoxazole w/Trimethoprim (Verified Allergy, Unknown, RASH, 11/11/16) Codeine (Verified Adverse Reaction, Unknown, NAUSEA, 11/11/16) has tolerated morphine Uncoded Allergies: kristina wipes (Allergy, Severe, red rash, excoriation, 09/19/16) Family History Cancer Diabetes mellitus Gallbladder disease Heart disease Lung disease Negative for CKD / ESRD Social History Smoking Status: Former Smoker Drug Use: none Marital Status: Housing Status: lives with family Occupation: unemployed . Lives at home. Former smoker Review of Systems Patient unable to provide ROS due to NIPPV Physical Exam Date Time Temp Pulse Resp B/P (MAP) Pulse Ox O2 Delivery O2 Flow Rate FiO2 11/11/16 15:07 88 16 134/66 96 Room Air 11/11/16 14:28 87 11/11/16 14:13 92 95 35 11/11/16 13:43 88 18 117/57 92 Nasal Cannula 3.0 11/11/16 12:00 85 22 128/51 96 Nasal Cannula 3.0 11/11/16 10:31 36.7 79 20 114/57 96 Room Air 11/11/16 10:26 80 General Appearance: + obese (chronically ill appearing) Head: normocephalic, atraumatic Eyes: PERRL, EOMI Neck: + pertinent finding (short, thick. Unable to appreciate JVD) Respiratory/Chest: + crackles (anteriorly. Patient could not sit forward for evaluation of posterior lung rain) Cardiovascular: regular rate, rhythm Abdomen/GI: non tender, soft (obese) Genitourinary - Female: + pertinent finding (erythema extending from the ankles to upper calves bilaterally. Patient w/ dry cracked skin on both heels) Extremities/Musculoskelatal: + pertinent finding (trace pretibial edema) Neurologic/Psych: + pertinent finding (lethargic but opens eyes to command and answers simple "yes / no" questions) Skin: warm/dry Laboratory Results Last 24 Hours Test 11/11/16 10:35 11/11/16 11:07 11/11/16 12:38 11/11/16 15:11 White Blood Count 11.53 K/uL Red Blood Count 3.28 M/uL Hemoglobin 10.4 g/dL Hematocrit 35.2 % Mean Corpuscular Volume 107.3 fL Mean Corpuscular Hemoglobin 31.7 pg Mean Corpuscular Hemoglobin Concent 29.5 g/dl Platelet Count 215 K/uL Mean Platelet Volume 10.7 fL Neutrophils (%) (Auto) 76.4 % Lymphocytes (%) (Auto) 11.1 % Monocytes (%) (Auto) 9.0 % Eosinophils (%) (Auto) 1.6 % Basophils (%) (Auto) 0.3 % Neutrophils # (Auto) 8.80 K/uL Lymphocytes # (Auto) 1.28 K/uL Monocytes # (Auto) 1.04 K/uL Eosinophils # (Auto) 0.19 K/uL Basophils # (Auto) 0.04 K/uL RDW Standard Deviation 83.2 fL RDW Coefficient of Variation 21.8 % Immature Granulocyte % (Auto) 1.6 % Immature Granulocyte # (Auto) 0.18 K/uL Nucleated RBC Absolute Count (auto) 0.57 K/uL Nucleated Red Blood Cells % 4.9 % Poikilocytosis PRESENT Anisocytosis PRESENT Macrocytosis PRESENT Sodium Level 134 mmol/L Potassium Level 4.8 mmol/L Chloride Level 101 mmol/L Carbon Dioxide Level 26 mmol/L Anion Gap 7.0 mmol/L Blood Urea Nitrogen 76 mg/dl Creatinine 10.00 mg/dl Est Creatinine Clear Calc Drug Dose 8.4 ml/min Estimated GFR () 4.3 Estimated GFR (Non- 3.7 BUN/Creatinine Ratio 7.6 Random Glucose 137 mg/dl Calcium Level 8.9 mg/dl Total Bilirubin 0.3 mg/dl Aspartate Amino Transf (AST/SGOT) 17 U/L Alanine Aminotransferase (ALT/SGPT) 38 U/L Alkaline Phosphatase 88 U/L Total Creatine Kinase 39 U/L Creatine Kinase MB 2.3 ng/ml Creatine Kinase MB Ratio 5.9 Total Protein 8.6 gm/dl Albumin 3.0 gm/dl Globulin 5.6 gm/dl Albumin/Globulin Ratio 0.5 Bedside Troponin I 0.030 ng/ml Venous Blood pH 7.14 Venous Blood Partial Pressure CO2 75 mmHg Venous Blood Partial Pressure O2 49 mmHg Venous Blood HCO3 25 mmol/L Venous Blood Oxygen Saturation 73.7 % Venous Blood Base Excess -5.4 mEq/L Impression (1) ESRD on hemodialysis (2) Hypercapnic respiratory failure (3) Obesity hypoventilation syndrome (4) Cellulitis of leg Mrs. Gaytan presents w/ recurrent hypercapnic respiratory failure despite adherence to NIPPV at home. Her CXR is concerning for a RLL infiltrate. Patient has dry cracked skin on her feet and bilateral LE cellulitis. She has ESRD due to cardiorenal syndrome and requires TTS HD (4.5hr F-180NR Qb300 Qd A1.5 3K 2.5 Ca EDW 137.7 kg Heparin 2000 load w/ 1000 units hourly). She has not yet HD today. BUN is markedly elevated but other electrolytes including serum bicarbonate are currently acceptable. Recommendations END STAGE RENAL DISEASE: -- Will provide HD today according to outpatient orders. HD RN called and notified of need for HD. Orders entered into the EMR -- IJ THC placed 07/25/16. L upper arm AVF created 08/19/[address] Thapa. AVF has + bruit but venous limb is too deep for use. Once condition stabilizes patient will require Vascular Surgery evaluation for possible transposition of the venous limb of her AVF -- Will reduce Lyrica to 50 mg daily given after dialysis on dialysis days to adjust for ESRD HYPERTENSION: -- Blood pressure is relatively low. Will limit UF on HD today ANEMIA: -- Will provide SAMARA w/ HD ID: -- Patient has a RLL infiltrate and LE cellulitis. Recommend obtaining blood cultures and starting empiric broad spectrum antibiotics PULM: -- VBG shows a profound respiratory acidosis. Patient has had several hospitalizations for recurrent hypercapnia. Her indicates that she has been compliant w/ NIPPV at home. Recommend consultation w/ Pulmonology <Electronically signed by Carl Neri M.D.> Signed: 11/11/16 0425 Signed: The status of this report is Signed * If report status is Draft, the document has not been finalized by the responsible provider. Critical Care Consultation Date of Consultation: Nov 11, 2016. Attending Physician: Dr. Beasley Reason for Consultation: Headache History of Present Illness The patient is a 60 year old female with multiple previous admissions, is morbidly obese with a BMI of 56, and has a pmh of acute on chronic respiratory failure, CO2 Narcosis and hypercarbia, chronic lower extremity cellulitis, acute on chronic renal failure, DM, CHF, and Obesity Hypoventilation that presents from home with weakness, headache, and fatigue for 1 week. The also states that she has been having worsening neck pain, rectal pain associated with her hemorrhoids, and lower extremity redness. The states that she has become increasingly unsteady while using her walker and needed constant support while walking or she would fall and this is very abnormal for her. He also states that she has had difficulty using eating utensil due to increased shakiness and has had confusion with taking her medications. The patient states she is compliant with home NIPPV mask and wears it nightly. Past Medical/Surgical History Acute on chronic respiratory Failure Chronic lower extremity cellulitis Acute on chronic renal failure Diabetes Mellitus Congestive Heart Failure CO2 Narcosis Obesity Hypoventilation Family History Cancer Diabetes mellitus Gallbladder disease Heart disease Lung disease Social History Smoking Status: Former Smoker Drug Use: none Marital Status: Housing Status: lives with family Occupation Status: unemployed Allergies Coded Allergies: Daptomycin (Verified Allergy, Mild, HIVES, 11/11/16) itching Iodine (Verified Allergy, Unknown, 11/11/16) Shellfish (Verified Allergy, Unknown, 11/11/16) Sulfamethoxazole w/Trimethoprim (Verified Allergy, Unknown, RASH, 11/11/16) Codeine (Verified Adverse Reaction, Unknown, NAUSEA, 11/11/16) has tolerated morphine Uncoded Allergies: kristina wipes (Allergy, Severe, red rash, excoriation, 09/19/16) comfort baths (Adverse Reaction, Severe, rash, "breaks out all over", ) Home Medications Scheduled Allopurinol (Zyloprim), 100 MG PO DAILY Ascorbic Acid (Vitamin C 500 mg), 1,000 MG PO DAILY Atorvastatin (Lipitor), 40 MG PO DAILY B-Complex W/ C & Folic Acid (Renal), 1 CAP PO QAM Calcium Acetate (Phosphate Bin (Phoslo 667 Mg), 667 MG PO ACHS Cholecalciferol (Vitamin D3), 1,000 INTER.UNIT PO DAILY Doxycycline Monohydrate (Monodox), 100 MG PO DAILY Famotidine (Famotidine), 20 MG PO DAILY Fluticasone Prop/Salmeterol (Advair Diskus 500/50 60 Dose), 1 PUFF INH BID Home O2 Therapy (Oxygen), 3 LITERS NA CONTINOUS Insulin Aspart (Novolog Flexpen), 50 UNITS SQ W/BREAKFAST Insulin Aspart (Novolog Flexpen), 50 UNITS SQ W/LUNCH Insulin Aspart (Novolog Flexpen), 90 UNITS SQ W/SUPPER Insulin Glargine (Toujeo Solostar), 70 UNITS SC TID Metoprolol Succ (Toprol Xl) (Toprol-Xl ), 150 MG PO UD Multiple Vitamins W/ Minerals (One Daily For Women), 1 TAB PO DAILY Pantoprazole (Protonix), 40 MG PO DAILY Pregabalin (Lyrica), 75 MG PO BID Pyridoxine (Vitamin B6), 200 MG PO DAILY Silver Sulfadiazine (Silvadene), 1 APPLN TOP DAILY Tiotropium [place] (Spiriva Handihaler), 1 CAP INH DAILY Vitamin E (Vitamin E), 800 INTER.UNIT PO DAILY Scheduled PRN Hydrocodone/Acetaminophen 5MG/325MG ([place] 5MG/325MG), 1 TAB PO Q6H PRN for Pain Insulin Aspart (Novolog Flexpen), 40 UNITS SQ HS PRN for Late Night Snack Ipratropium-Albuterol (Duoneb), 1 TREATMENT INH Q6H PRN for SOB/Wheezing Current Inpatient Medications Current Inpatient Medications Medications (Trade) Dose Ordered Sig/Duyen Route Start Time Stop Time Status Last Admin Dose Admin Miscellaneous Information (Pharmacy Consult) 1 ea NOW STAT N/A 11/11/16 15:22 11/11/16 15:23 UNV Albuterol/ Ipratropium (Duoneb) 3 ml QIDR INH 11/11/16 16:00 12/11/16 15:59 UNV Allopurinol (Zyloprim Tab) 100 mg DAILY PO 11/12/16 09:00 12/12/16 08:59 Atorvastatin Calcium (Lipitor Tab) 40 mg DAILY PO 11/12/16 09:00 12/12/16 08:59 Vitamin B Complex/ Vit C/Folic Acid (Nephrocaps) 1 cap QAM PO 11/12/16 09:00 12/12/16 08:59 Calcium Acetate (Phoslo Cap) 667 mg ACHS PO 11/11/16 16:00 12/11/16 15:59 Cholecalciferol (Vitamin D Tab) 1,000 inter.unit DAILY PO 11/12/16 09:00 12/12/16 08:59 Famotidine (Pepcid Tab) 20 mg DAILY PO 11/12/16 09:00 12/12/16 08:59 Salmeterol Xinafoate/ Fluticasone (Advair Diskus 500/50 Inh) 1 puff BID INH 11/11/16 21:00 12/11/16 20:59 Acetaminophen/ Hydrocodone Bitart ([place] 5/325 Tab) 1 tab Q6H PRN PO 11/11/16 15:30 11/25/16 15:29 Insulin Aspart (novoLOG ASPART) 40 units HS PRN SQ 11/11/16 15:30 12/11/16 15:29 UNV Metoprolol Succinate (Toprol Xl Tab) 150 mg UD PO 11/11/16 15:30 12/11/16 15:29 UNV Multivitamins/ Minerals (Multivitamin W/ Minerals Tab) 1 tab DAILY PO 11/12/16 09:00 12/12/16 08:59 Pantoprazole Sodium (Protonix Tab) 40 mg DAILY PO 11/12/16 09:00 12/12/16 08:59 Pyridoxine HCl (Vitamin B-6 Tab) 200 mg DAILY PO 11/12/16 09:00 12/12/16 08:59 Silver Sulfadiazine (Silvadene 1% Crm 50GM Jar) 1 appln DAILY EXT 11/12/16 09:00 12/12/16 08:59 Tiotropium [place] (Spiriva Handihaler Inhaler) 1 puff DAILY INH 11/12/16 09:00 12/12/16 08:59 Ascorbic Acid (Vitamin C Tab) 1,000 mg DAILY PO 11/12/16 09:00 12/12/16 08:59 Non-Formulary Medication (Insulin Glargine (Toujeo Solostar)) 70 units TID SC 11/11/16 21:00 12/11/16 20:59 UNV ul-Pbaep-Mdfojqbdot Acetate (Vitamin E Cap) 800 interunit DAILY PO 11/12/16 09:00 12/12/16 08:59 Insulin Aspart (novoLOG ASPART) SLIDING SCALE G... ACHS SC 11/11/16 16:00 12/11/16 15:59 UNV Miscellaneous Information (Consult Glycemic Management Pharmacy) 1 ea UD PRN N/A 11/11/16 16:00 12/11/16 15:59 Heparin Sodium (Porcine) (Heparin Sq 5000 Unit/0.5ml) 5,000 unit Q12 SQ 11/11/16 21:00 12/11/16 20:59 UNV Hydromorphone HCl (Dilaudid Inj) 1 mg Q8H PRN IV 11/11/16 15:30 11/25/16 15:29 Pregabalin (Lyrica Cap) 50 mg DAILY PO 11/12/16 09:00 12/12/16 08:59 UNV Heparin Sodium (Porcine) (Heparin Iv Bolus) 2,000 unit ONE IV 11/11/16 16:15 11/11/16 16:16 UNV Heparin Sodium (Porcine) (Heparin Iv Bolus) 1,000 unit Q1H IV 11/11/16 16:15 11/11/16 17:16 UNV Epoetin Simba (Procrit Inj) 10,000 units ONE ONCE IV. 11/11/16 16:15 11/11/16 16:16 UNV Paricalcitol (Zemplar Inj) 3 mcg ONE ONCE IV. 11/11/16 16:15 11/11/16 16:16 UNV Piperacillin Sod/ Tazobactam Sod 4.5 gm/Dextrose 120 ml @ 200 mls/hr TODAY@1630 IV 11/11/16 16:30 11/11/16 22:00 Piperacillin Sod/ Tazobactam Sod 4.5 gm/Dextrose 120 ml @ 30 mls/hr Q12@0400,1600 IV 11/12/16 04:00 11/22/16 03:59 Review of Systems Constitutional: No fever, No chills Respiratory: + shortness of breath, No cough, No sputum, No wheezing Cardiovascular: No chest pain, No palpitations Abdomen: + constipation, + problem reported (pain with defecation at site of external hemorrhoids), No pain, No nausea, No vomiting Musculoskeletal: + problem reported (neck pain) Neurologic: + weakness, No memory loss Physical Exam Date Time Temp Pulse Resp B/P (MAP) Pulse Ox O2 Delivery O2 Flow Rate FiO2 11/11/16 16:18 86 16 149/69 91 BiPAP 11/11/16 15:49 BiPAP 3.0 28 11/11/16 15:26 89 112/52 91 BiPAP 11/11/16 15:23 90 94 28 11/11/16 15:07 88 16 134/66 96 Room Air 11/11/16 14:28 87 11/11/16 14:13 92 95 35 11/11/16 13:43 88 18 117/57 92 Nasal Cannula 3.0 11/11/16 12:00 85 22 128/51 96 Nasal Cannula 3.0 11/11/16 10:31 36.7 79 20 114/57 96 Room Air 11/11/16 10:26 80 General Appearance: moderate distress, obese, other (lethargic) Head: normocephalic, atraumatic Eyes: PERRLA, EOMI, sclerae normal, conjunctivae normal Neck: trachea midline, no stridor, supple Respiratory: no tenderness, other (Crackles over anterior lung rain) Cardiovasular: regular rate/rhythm, normal S1S2, no M/G/R Abdomen: non tender, normal bowel sounds, no rebound, no masses, no guarding Lower Extremities: other (warm, chronic skin changes over lower extremity, cellulitis - chonic vs acute?) Edema: Bilateral LE (1+) Neuro: alert, oriented x 3, normal motor exam Laboratory Results Last 24 Hours Test 11/11/16 10:35 11/11/16 11:07 11/11/16 12:38 11/11/16 15:34 White Blood Count 11.53 K/uL Red Blood Count 3.28 M/uL Hemoglobin 10.4 g/dL Hematocrit 35.2 % Mean Corpuscular Volume 107.3 fL Mean Corpuscular Hemoglobin 31.7 pg Mean Corpuscular Hemoglobin Concent 29.5 g/dl Platelet Count 215 K/uL Mean Platelet Volume 10.7 fL Neutrophils (%) (Auto) 76.4 % Lymphocytes (%) (Auto) 11.1 % Monocytes (%) (Auto) 9.0 % Eosinophils (%) (Auto) 1.6 % Basophils (%) (Auto) 0.3 % Neutrophils # (Auto) 8.80 K/uL Lymphocytes # (Auto) 1.28 K/uL Monocytes # (Auto) 1.04 K/uL Eosinophils # (Auto) 0.19 K/uL Basophils # (Auto) 0.04 K/uL RDW Standard Deviation 83.2 fL RDW Coefficient of Variation 21.8 % Immature Granulocyte % (Auto) 1.6 % Immature Granulocyte # (Auto) 0.18 K/uL Nucleated RBC Absolute Count (auto) 0.57 K/uL Nucleated Red Blood Cells % 4.9 % Poikilocytosis PRESENT Anisocytosis PRESENT Macrocytosis PRESENT Sodium Level 134 mmol/L Potassium Level 4.8 mmol/L Chloride Level 101 mmol/L Carbon Dioxide Level 26 mmol/L Anion Gap 7.0 mmol/L Blood Urea Nitrogen 76 mg/dl Creatinine 10.00 mg/dl Est Creatinine Clear Calc Drug Dose 8.4 ml/min Estimated GFR () 4.3 Estimated GFR (Non- 3.7 BUN/Creatinine Ratio 7.6 Random Glucose 137 mg/dl Calcium Level 8.9 mg/dl Total Bilirubin 0.3 mg/dl Aspartate Amino Transf (AST/SGOT) 17 U/L Alanine Aminotransferase (ALT/SGPT) 38 U/L Alkaline Phosphatase 88 U/L Total Creatine Kinase 39 U/L Creatine Kinase MB 2.3 ng/ml Creatine Kinase MB Ratio 5.9 Total Protein 8.6 gm/dl Albumin 3.0 gm/dl Globulin 5.6 gm/dl Albumin/Globulin Ratio 0.5 Bedside Troponin I 0.030 ng/ml Venous Blood pH 7.14 7.11 Venous Blood Partial Pressure CO2 75 mmHg 79 mmHg Venous Blood Partial Pressure O2 49 mmHg 34 mmHg Venous Blood HCO3 25 mmol/L 24 mmol/L Venous Blood Oxygen Saturation 73.7 % < 60.0 % Venous Blood Base Excess -5.4 mEq/L -6.3 mEq/L Test 11/11/16 15:39 Assessment & Plan Patient is a 60 year old female with a complicated past medical history that presented to [facility] with weakness, fatigue, and some confusion. The patient on admission was found to be in respiratory acidosis on VBG and was subsequently placed on BiPAP. The patient was scheduled to go for dialysis this morning that she did not attend, and had a creatinine of 10. The patient get hemodialysis in the hospital this evening and will return to the ICU afterwards. Neuro: - A&O x3 - CAM-ICU: Negative - GCS: 14 - CT Head: No intracranial abnormalities - Sedation: None - Resume home Lyrica 50mg PO Daily Resp: - BiPAP - FiO2 28 - CXR: Parenchymal infiltrate at right base. Pulmonary vascular congestion - VBG: pH 7.11, pCO2 79, HCO3 24 - Inhalers: Spiriva 1 puff daily, Advair 1 puff BID - Duoneb QID CV: - EKG - NSR - Troponin - 0.30 - Resume home Toprol XL 150mg and Atorvastatin 40mg GI - Diet: Renal, Low Sodium, Diabetic Diet - GI ppx: Continue home Pepcid 20mg and Protonix 40mg PO Daily Renal - Creatinine of 10 --> 7.5 when discharged in August but has been as high as 8.9 previously, and missed her scheduled dialysis this morning - Will go for hemodialysis today in the hospital - Has AVF in left upper arm that was performed on 08/19/[address] Thapa - Nephrology on board Endocrine - Insulin Protocol as per ICU - Last glucose 137 - Discussed previous Insulin requirement with Pharmacy --> Will start patient on 70 units of Lantus BID with sliding scale coverage - Hold home Toujeo - Resume home Allopurinol 100mg PO Daily Heme - Hemoglobin 10.4 (improved since previous discharge on 09/20 where Hgb was 9.2) - Will get erythropoietin stimulating agents (SAMARA) with dialysis - Procrit 1,000 units - DVT ppx: Heparin 5,000 units q12 ID: - Afebrile - Leukocytosis - WBC 11.53 - Vancomycin + Zosyn 4.5g BID - Blood Cultures Pending - Hold home Doxycycline 100mg PO BID - Procalcitonin ordered Resident Physician Supervision Note: Dr. Godfrey was resident physician during care of patient. I separately evaluated patient and did history and exam. I discussed the case with the resident and generally agree with the findings and plan. Patient critically ill due to Acute on chronic hypercapnic respiratory failure, no improvement in blood gas while on noninvasive ventilation. Empiric coverage for possible pneumonia, COPD exacerbation. If patient requires intubation would strongly advocate for tracheostomy secondary to hypoventilation syndrome. I have personally spent 40 minutes of critical care time in the direct management of this patient. This is a life/limb threatening event. This includes time spent evaluating patient, direct bedside care, chart review, placing orders, interpretation of diagnostic studies, discussion with consultants, patient, and family members, as well as other required patient management activities. This time is exclusive of all separately billable procedures, and teaching time and separate from and in addition to any other critical care service time. Documented By: Jefferson Beasley DO DATE OF CONSULTATION: 11/12/2016 REQUESTING PHYSICIAN: Dr. Krishna. HISTORY OF PRESENT ILLNESS: This is a 60-year-old female who was admitted to the hospital yesterday after she had worsening confusion at home. She was found to have a creatinine of 10 and an acidosis. She was admitted to the intensive care unit. She did receive dialysis yesterday with improvement in her creatinine. On my examination, she is out of bed to chair and states she is feeling fine. She was noted to have worsening erythema and swelling of her legs. She does have chronic stasis ulcerations and venous insufficiency with recurrent cellulitis. She does admit to having some weeping from her right lower extremity earlier in the week, but states this has resolved spontaneously. She was placed on multiple broad spectrum antibiotics consisting of vancomycin and Zosyn. She initially had a low grade white blood cell count of 11.5, which has improved to 9.9. Her sed rate is 55. Blood cultures were obtained and are pending. She has been afebrile. She is tolerating antibiotics well. She does admit to some pain and tightness in her lower extremities, but denies any drainage or bleeding or trauma to the area. She denies any chest pain, cough, shortness of breath, nausea, vomiting or diarrhea. All remaining review of systems is reviewed and unremarkable. PAST MEDICAL HISTORY: Significant for end-stage renal disease on dialysis, bilateral lower extremity stasis changes, morbid obesity, respiratory failure, obstructive sleep apnea on BiPAP; CHF, COPD, type 2 diabetes, arthritis, hypercalcemia, and hypoventilation syndrome. PAST SURGICAL HISTORY: Significant for a left upper extremity AV fistula. ALLERGIES: SHE IS ALLERGIC TOIODINE, BACTRIM AND CODEINE. FAMILY HISTORY: Noncontributory. SOCIAL HISTORY: Significant for history of tobacco use. She denies any drug or alcohol use. She lives with her family. She has no sick contacts. MEDICATIONS: Include prednisone, heparin, Procrit, Zemplar, insulin, Lantus, allopurinol, Lipitor, Nephrocaps, vitamin D, Pepcid, Toprol-XL, multivitamins, Protonix, vitamin B6, Spiriva, vitamin C, vitamin E, Lyrica, Zosyn, Advair, doxycycline, Desenex powder, DuoNebs, PhosLo, Percocet and Dilaudid. PHYSICAL EXAMINATION: VITAL SIGNS: She is afebrile, pulse 93, respiratory rate 14, blood pressure is 124/62, and oxygen saturation is 92%-94% on 2 liters nasal cannula. GENERAL: She is awake, alert and oriented x3. She is in no acute distress. HEENT: Mucous membranes are moist. Extraocular muscles are intact. HEART: Regular. LUNGS: Clear with decreased breath sounds at the bases bilaterally. ABDOMEN: Obese, soft and nontender. EXTREMITIES: There are lower extremity chronic stasis changes. There is a dried crusting fluid over the right lower extremity, but no active drainage or weeping is noted. LABORATORY STUDIES: CBC today reveals a white blood cell count 9.9, hemoglobin 9.2, and platelets are 167. Chemistry panel reveals a sodium of 135, potassium 3.7, chloride 103, bicarbonate 26, BUN 33, creatinine 5.8, and glucose is 80. Random vancomycin is 10. Hepatitis B is negative. Blood cultures are pending. IMAGING: As above. ASSESSMENT AND PLAN: Right lower extremity cellulitis coupled with a venous stasis ulceration. She will be continued on broad spectrum antibiotics pending the results of blood cultures. Hopefully, she can be narrowed to p.o. antibiotics in the near future. Thank you for this consultation. [id number] <Electronically signed by Adri Hardy D.O.> S: 11/13/16 1346 ES Adri Hardy D.O. The status of this report is Signed. Draft = Not yet reviewed or approved by Medical Physician. Signed = Reviewed and approved by Medical Physician. History Pulmonary Consult Date of Service: Nov 12, 2016. Stated Complaint: Acidosis, Co2 Retension, Ams HPI The patient is a 60 year old female who presents to [facility] with complaints of Acidosis, Co2 Retension, Ams. The patient's primary care provider is Emily Isaac C.R.N.P. Ms. Gaytan is a 60-year-old female with past medical history of morbid obesity ( BMI of 53), COPD on long-term oxygen therapy at 3L nasal cannula, chronic hypercapnic respiratory failure secondary to obesity hypoventilation syndrome and obstructive sleep apnea, grade 2 diastolic dysfunction and right ventricular dysfunction, end-stage renal disease on hemodialysis (//Thu) who presents with one-week history of lethargy and fatigue associated with lower extremity weakness and headache. Patient states that she has felt unsteady on her feet and has had the sensation as if she is going to to fall. She usually uses her walker for ambulation but felt unusually shaky. She was also noted by to have intermittent episodes of confusion and increased somnolence. She states that she is compliant with her home Trilogy machine and wears it nightly. She denies any recent fevers, chills, cough, chest pain, shortness of breath or dyspnea on exertion. She states that her lower extremities have also felt unusually heavy associated with itching and swelling. She's had multiple admissions for acute on chronic respiratory failure. Her last admission was in August 2016. She follows up with the [facility] for pulmonary. Her respiratory medications are Advair Diskus 500/61 puff twice a day, Spiriva HandiHaler 1 capsule inhaled daily. She also takes Narco 5 mg/325 one tab by mouth every 6 hours when necessary for pain. In the ED her initial vital signs were temperature 36.7, pulse 80, respiratory rate 20, blood pressure 114/57, pulse oximetry 96% on 3 L nasal cannula. Her laboratory data showed a white blood cell count of 11, hemoglobin of 10.4, platelet count of 2:15, sodium 134, potassium 4.8, chloride 101, carbon dioxide level 26, BUN of 76 and creatinine of 10. Troponin 0.03 Initial VBG 7.14/75/49/25/73.7%. A POC sample was taken and showed a pH of 7.09 /70/68/21/85% on BiPAP 12/5 with FiO2 of 35%. She was admitted to the ICU for acute on chronic hypercapnic failure, altered mental status and fluid overload. BiPAP settings were increased to 16/5 with FiO2 35% Repeat VBG this morning 7.24 /61/36/64.8% and she is status post hemodialysis with removal of 976 mL. creatinine now down to 5.8 from 10. Currently she is on Zosyn 4.5 g every 12 hours, Dilaudid 1 mg every 8 hours when necessary, ipratropium/albuterol nebulizer 4 times a day, Advair Diskus 500/50 and Spiriva 1 puff daily. At the time of my evaluation patient states that she's feeling much better she felt that she is at her baseline. Historian: patient Onset: yesterday Severity: moderate Complaint Status: worsened, persistent Review of Systems Constitutional: reports: as stated in HPI Eyes: reports: as stated in HPI ENT: reports: as stated in HPI Cardiovascular: reports: as stated in HPI Respiratory: reports: as stated in HPI Gastrointestinal: reports: as stated in HPI Genitourinary - Female: reports: as stated in HPI Musculoskeletal: reports: as stated in HPI Integumentary: reports: as stated in HPI Neurologic: reports: as stated in HPI Psychiatric: reports: as stated in HPI Endocrine: as stated in HPI Hematologic / Lymphatic: as stated in HPI Allergic / Immunologic: as stated in HPI All Other Symptoms All Other Systems: Reviewed and Negative Past Medical History Past Medical History: 1. Diastolic CHF. 2. Chronic kidney disease stage IV-on dialysis 3. Diabetes mellitus. 4. Obesity. 5. Hypertension. 6. Chronic venous insufficiency. 7. Cellulitis. 8. COPD, moderate to severe 9. Pulmonary nodules 10. Monoclonal gammopathy 11. Fatty liver 12. Right thyroid nodule s/p biopsy that was negative for malignancy 13. Gout Past Medical History: diabetes, high cholesterol, hypertension Past Surgical History: 1.Hysterectomy 2.Carpal tunnel surgery 3.AV fistula left arm Family History Cancer Diabetes mellitus Gallbladder disease Heart disease Lung disease Cancer Diabetes mellitus Gallbladder disease Heart disease Lung disease Positive for heart disease, lung problems, diabetes and cancer--father pancreatic cancer Social History Former tobacco use with 70 Pk year history. Quit in 2009. She denies any alcohol or illicit drug use. She is and lives with . Hx Tobacco Use In Past Year?: No Smoking Status: Former Smoker Alcohol: socially, no current use Drug Use: none Marital status: Housing status: lives with family Occupational Status: unemployed Immunizations History of Influenza Vaccine: Yes Influenza Vaccine Date: Apr 15, 2012 History of Tetanus Vaccine?: No History of Pneumococcal: Yes Pneumococcal Date: Jan 13, 2013 History of Hepatitis B Vaccine: No History of MDRO History of MDRO: No Allergies Coded Allergies: Daptomycin (Verified Allergy, Mild, HIVES, 11/11/16) itching Iodine (Verified Allergy, Unknown, 11/11/16) Shellfish (Verified Allergy, Unknown, 11/11/16) Sulfamethoxazole w/Trimethoprim (Verified Allergy, Unknown, RASH, 11/11/16) Codeine (Verified Adverse Reaction, Unknown, NAUSEA, 11/11/16) has tolerated morphine Uncoded Allergies: kristina wipes (Allergy, Severe, red rash, excoriation, 09/19/16) comfort baths (Adverse Reaction, Severe, rash, "breaks out all over", ) Current Medications Reported Home Medications Medications Dose Route/Sig Max Daily Dose Days Date Category Dose Instructions Monodox (Doxycycline Monohydrate) 100 Mg Cap 100 Mg PO DAILY 11/11/16 Reported Silvadene (Silver Sulfadiazine) 1 % Cre 1 Appln TOP DAILY 7 11/11/16 Reported Phoslo 667 Mg (Calcium Acetate (Phosphate Bin) 667 Mg Cap 667 Mg PO ACHS 09/16/16 Reported Renal (B-Complex W/ C & Folic Acid) 1 Cap Cap 1 Cap PO QAM 30 08/25/16 Rx [place] 5MG/325MG (Acetaminophen/Hydrocodone Bitart) Tab 1 Tab PO Q6H PRN 3 08/25/16 Rx PRN PAIN Famotidine 20 Mg Tab 20 Mg PO DAILY 30 08/25/16 Rx Lyrica (Pregabalin) 75 Mg Cap 75 Mg PO BID 30 08/25/16 Rx Protonix (Pantoprazole Sodium) 40 Mg Tab 40 Mg PO DAILY 08/13/16 Reported Oxygen Gas 3 Liters NA CONTINOUS 08/13/16 Reported Toujeo Solostar (Insulin Glargine) 300 Unit/Ml Inj 70 Units SC TID 08/13/16 Reported ADMINISTER WITH BREAKFAST, EVENING MEAL AND AT BEDTIME Duoneb (Ipratropium-Albuterol) 3 Ml Nebu 1 Treatment INH Q6H PRN 07/10/16 Reported Vitamin E 400 Unit Tab 800 Inter.unit PO DAILY 05/05/16 Reported Vitamin D3 (Cholecalciferol) 1,000 Unit Tab 1,000 Inter.unit PO DAILY 05/05/16 Reported Spiriva Handihaler (Tiotropium [place]) 30 Puff/540 Mcg Aerp 1 Cap INH DAILY 05/05/16 Reported One Daily For Women (Multiple Vitamins W/ Minerals) 1 Tab Tab 1 Tab PO DAILY 05/05/16 Reported Lipitor (Atorvastatin Calcium) 40 Mg Tab 40 Mg PO DAILY 05/05/16 Reported Advair Diskus 500/50 60 Dose (Fluticasone Prop/Salmeterol) 1 Ea Aerp 1 Puff INH BID 05/05/16 Reported Novolog Flexpen (Insulin Aspart) 100 Units/Ml Inj 40 Units SQ HS PRN 02/25/16 Reported Toprol-Xl (Metoprolol Succinate) 100 Mg Tabcr 150 Mg PO UD 02/26/14 Reported 150MG DAILY ON NON-DIALYSIS DAYS. NONE ON DIALYSIS DAYS ( THURSDAY, THURSDAY, THURSDAY) Novolog Flexpen (Insulin Aspart) 100 Units/Ml Inj 90 Units SQ W/SUPPER 09/28/13 Reported Novolog Flexpen (Insulin Aspart) 100 Units/Ml Inj 50 Units SQ W/LUNCH 09/28/13 Reported Novolog Flexpen (Insulin Aspart) 100 Units/Ml Inj 50 Units SQ W/BREAKFAST 09/28/13 Reported Zyloprim (Allopurinol) 100 Mg Tab 100 Mg PO DAILY 09/28/13 Reported Vitamin C 500 mg (Ascorbic Acid) 1 Chw Chw 1,000 Mg PO DAILY 2/14/14 Reported Vitamin B6 (Pyridoxine HCl) 100 Mg Tab 200 Mg PO DAILY 04/15/13 Reported Physical Physical Exam Vital Signs: Date Time Temp Pulse Resp B/P (MAP) Pulse Ox O2 Delivery O2 Flow Rate FiO2 11/12/16 14:00 93 14 124/62 (82) 92 Nasal Cannula 2.0 11/12/16 12:00 Nasal Cannula 2.0 11/12/16 11:43 94 20 94 Nasal Cannula 2.0 11/12/16 11:42 36.6 89 22 128/67 (87) 92 Nasal Cannula 2.0 11/12/16 10:04 121 22 108/66 (80) 90 Nasal Cannula 2.0 11/12/16 10:01 93 12 87/45 (59) 92 Nasal Cannula 2.0 11/12/16 08:16 36.8 88 23 92/44 (60) 93 Nasal Cannula 2.0 11/12/16 08:02 84 94 35 11/12/16 08:00 Nasal Cannula 2.0 11/12/16 07:50 82 20 94 BiPAP/CPAP 35 11/12/16 07:01 80 16 111/36 (61) 96 BiPAP 35 11/12/16 06:02 81 67 109/53 (71) 98 BiPAP 35 11/12/16 05:00 80 10 109/53 (71) 97 BiPAP 35 11/12/16 04:00 97 BiPAP 35 11/12/16 04:00 82 12 106/57 (73) 97 BiPAP 35 11/12/16 03:01 36.9 91 15 103/42 (62) 98 BiPAP 35 11/12/16 02:00 86 18 91/42 (58) 90 BiPAP 35 11/12/16 01:44 37.0 84 98/44 (62) 11/12/16 01:16 87 23 87/40 (56) 94 BiPAP 35 11/12/16 01:13 85 26 98/44 (62) 93 BiPAP 35 11/12/16 01:00 84 92/44 11/12/16 01:00 84 22 92/44 (60) BiPAP 35 11/12/16 00:45 81 85/40 11/12/16 00:45 80 20 85/40 (55) BiPAP 35 11/12/16 00:30 80 85/44 11/12/16 00:15 84 27 94/46 (62) BiPAP 35 11/12/16 00:15 82 94/46 11/12/16 00:00 82 22 89/48 (62) 98 BiPAP 35 11/12/16 00:00 81 89/48 11/11/16 23:59 97 BiPAP 35 11/11/16 23:45 80 103/50 11/11/16 23:45 80 29 103/50 (67) 97 BiPAP 35 11/11/16 23:30 79 85/48 11/11/16 23:30 37.0 79 21 85/48 (60) BiPAP 35 11/11/16 23:15 79 82/49 11/11/16 23:00 78 39 87/46 (60) BiPAP 35 11/11/16 23:00 78 87/46 11/11/16 22:55 80 83/47 11/11/16 22:45 77 81/48 11/11/16 22:41 86/46 11/11/16 22:30 77 73/47 11/11/16 22:21 91/42 11/11/16 22:15 79 83/49 11/11/16 22:00 84 22 99/49 (66) 92 BiPAP 35 11/11/16 22:00 84 99/49 11/11/16 21:45 86 108/84 11/11/16 21:30 86 108/84 11/11/16 21:15 86 108/84 11/11/16 21:10 84 99/70 11/11/16 21:02 88 100 35 11/11/16 21:00 85 17 112/55 (74) 95 BiPAP 35 11/11/16 20:45 82 15 102/45 (64) 98 BiPAP 35 11/11/16 20:30 82 12 90/43 (59) 100 BiPAP 35 11/11/16 20:15 83 12 102/44 (63) 97 BiPAP 35 11/11/16 20:15 36.7 83 102/45 (64) 11/11/16 20:00 94 BiPAP 35 11/11/16 20:00 36.6 85 16 102/45 (64) 96 BiPAP 35 11/11/16 18:55 86 100 35 11/11/16 18:55 112 16 100 BiPAP/CPAP 11/11/16 18:09 95 BiPAP 35 11/11/16 18:00 85 12 125/52 (76) 84 BiPAP 28 11/11/16 17:00 36.9 91 24 132/60 (84) 96 BiPAP 28 11/11/16 17:00 87 BiPAP 28 11/11/16 16:18 86 16 149/69 91 BiPAP 11/11/16 15:49 BiPAP 3.0 28 11/11/16 15:26 89 112/52 91 BiPAP VITAL SIGNS - reviewed GENERAL -Morbidly obese female out of bed sitting in chair HEAD - NC/AT. Topete facies. EYES - Sclera anicteric. Palpebral conjunctiva pink and moist with no injection noted. EARS - No deformities of external structures noted on gross examination bilaterally. NOSE - Midline and without cyanosis. NECK - Neck with FROM. supple, NT, thick short neck MOUTH-No oral thrush noted, Mallampati IV LUNGS - Chest wall symmetric without accessory muscle use, intercostals retractions, or central cyanosis. Normal vesicular breath sounds CTA B/L. No wheezes, rales, or rhonchi appreciated. Right PermCath in place. HEART - RRR with S1/S2. No murmur, rubs, or gallops appreciated. ABDOMEN - Obese, BS normoactive, No tenderness. EXTREMITIES - No clubbing or peripheral cyanosis. Bilateral pitting edema +2, NEUROLOGIC - Cranial nerves II through XII grossly intact. Sensory intact PSYCH - A&Ox 3, No suicidal ideations. SKIN - Blateral lower extremity edema, Chronic venous changes. Dry. Diagnostics Labs Results Past 24 Hours Test 11/11/16 15:34 11/11/16 17:51 11/11/16 19:12 11/11/16 19:39 Range/Units Venous Blood pH 7.11 7.36-7.41 Venous Blood Partial Pressure CO2 79 38.0-50.0 mmHg Venous Blood Partial Pressure O2 34 mmHg Venous Blood HCO3 24 mmol/L Venous Blood Oxygen Saturation < 60.0 % Venous Blood Base Excess -6.3 mEq/L Bedside Glucose 271 240 70-90 mg/dl Procalcitonin 0.65 0-0.5 ng/ml Test 11/11/16 19:51 11/11/16 20:09 11/11/16 21:35 11/12/16 00:23 Range/Units Lactic Acid Level 1.1 0.4-2.0 mmol/L Blood Gas Sample Site R Radial Bedside Blood Gas pH (LAB) 7.09 7.35-7.45 Bedside Blood Gas pCO2 (LAB) 70 35-46 mmHg Bedside Blood Gas pO2 (LAB) 68 80-95 mmHg Bedside Blood Gas HCO3 (LAB) 21 19-24 meq/L Bedside Blood Gas Total CO2 23 24-31 mEq/l Bedside Blood Gas Base Excess (LAB) -9.0 -9-1.8 meq/L Bedside Blood Gas O2 Saturation 85.0 90-95 % Oleg Test NA Oxygen Delivery Device BIPAP Bedside Oxygen Rate (breaths/min) 12 Bedside FiO2 35 % Blood Gas IPAP 12 Bedside Glucose 239 104 70-90 mg/dl Test 11/12/16 00:59 11/12/16 01:27 11/12/16 01:58 11/12/16 02:59 Range/Units Bedside Glucose 103 85 123 76 70-90 mg/dl Test 11/12/16 04:09 11/12/16 05:07 11/12/16 05:32 11/12/16 05:49 Range/Units Bedside Glucose 70 74 65 70-90 mg/dl White Blood Count 9.95 4.8-10.8 K/uL Red Blood Count 2.88 4.2-5.4 M/uL Hemoglobin 9.2 12.0-16.0 g/dL Hematocrit 30.8 37-47 % Mean Corpuscular Volume 106.9 80-100 fL Mean Corpuscular Hemoglobin 31.9 25-34 pg Mean Corpuscular Hemoglobin Concent 29.9 32-36 g/dl Platelet Count 167 130-400 K/uL Mean Platelet Volume 10.3 7.4-10.4 fL Neutrophils (%) (Auto) 78.0 % Lymphocytes (%) (Auto) 8.6 % Monocytes (%) (Auto) 10.7 % Eosinophils (%) (Auto) 1.3 % Basophils (%) (Auto) 0.1 % Neutrophils # (Auto) 7.76 1.4-6.5 K/uL Lymphocytes # (Auto) 0.86 1.2-3.4 K/uL Monocytes # (Auto) 1.06 0.11-0.59 K/uL Eosinophils # (Auto) 0.13 0-0.5 K/uL Basophils # (Auto) 0.01 0-0.2 K/uL RDW Standard Deviation 84.1 36.4-46.3 fL RDW Coefficient of Variation 21.7 11.5-14.5 % Immature Granulocyte % (Auto) 1.3 % Immature Granulocyte # (Auto) 0.13 0.00-0.02 K/uL Nucleated RBC Absolute Count (auto) 0.65 0-0 K/uL Nucleated Red Blood Cells % 6.5 % Polychromasia 1+ Poikilocytosis PRESENT Anisocytosis PRESENT Macrocytosis PRESENT Sodium Level 135 136-145 mmol/L Potassium Level 3.7 3.5-5.1 mmol/L Chloride Level 103 98-107 mmol/L Carbon Dioxide Level 26 21-32 mmol/L Anion Gap 6.0 3-11 mmol/L Blood Urea Nitrogen 33 7-18 mg/dl Creatinine 5.80 0.60-1.20 mg/dl Est Creatinine Clear Calc Drug Dose 14.1 ml/min Estimated GFR () 8.3 Estimated GFR (Non- 7.2 BUN/Creatinine Ratio 5.7 10-20 Random Glucose 80 70-99 mg/dl Estimated Average Glucose 123 mg/dl Hemoglobin A1c 5.9 4.5-5.6 % Calcium Level 7.4 8.5-10.1 mg/dl Phosphorus Level 4.0 2.5-4.9 mg/dl Magnesium Level 2.3 1.8-2.4 mg/dl Hepatitis B Surface Antigen NEG NEG Hepatitis B Surface Antibody NEG Test 11/12/16 05:55 11/12/16 07:41 11/12/16 07:47 11/12/16 09:06 Range/Units Bedside Glucose 78 102 70-90 mg/dl Random Cortisol 10.11 mcg/dl Random Vancomycin Level 10.0 mcg/ml Venous Blood pH 7.22 7.36-7.41 Venous Blood Partial Pressure CO2 68 38.0-50.0 mmHg Venous Blood Partial Pressure O2 45 mmHg Venous Blood HCO3 27 mmol/L Venous Blood Oxygen Saturation 73.4 % Venous Blood Base Excess -1.6 mEq/L Test 11/12/16 11:18 11/12/16 12:29 Range/Units Bedside Glucose 130 70-90 mg/dl Venous Blood pH 7.24 7.36-7.41 Venous Blood Partial Pressure CO2 61 38.0-50.0 mmHg Venous Blood Partial Pressure O2 36 mmHg Venous Blood HCO3 26 mmol/L Venous Blood Oxygen Saturation 64.8 % Venous Blood Base Excess -2.6 mEq/L Microbiology Results 11/11/16 Blood Culture, Received Pending 11/11/16 Blood Culture, Received Pending Diagnostic Radiology CXR 11/11/2016 FINDINGS: PermCath in superior vena cava. Mild cardiomegaly. Parenchymal infiltrate right base. Pulmonary vascular congestion. CT head without contrast 11/11/2016 FINDINGS: No intra or extra-axial mass lesions are visualized. There is no CT evidence of acute cortical infarction. There is no evidence of midline shift. There is no acute hemorrhage. No calvarial fractures are visualized. There are minor white matter hypodensities likely on a small vessel basis. There is no evidence of pathologic ventricular dilatation. There is no evidence of acute sinusitis IMPRESSION: No acute intracranial findings IMPRESSION: Parenchymal inf is a is iltrate right base. Pulmonary vascular congestion. Mild cardiomegaly. TTE 11/12/2016 * The left ventricle is normal in size. * There is normal left ventricular wall thickness. * Ejection Fraction = >70 %. * The left ventricle is hyperdynamic. * Diastolic dysfunction, Grade II (pseudonormalization pattern). * No regional wall motion abnormalities noted. * The right ventricle is not well visualized. * The right ventricle is moderately dilated. * The right ventricular systolic function is moderately reduced. CXR 09/19/2016 IMPRESSION: Mild right basilar infiltrate superimposed upon chronic pulmonary vascular congestion. CT chest 02/13/2016 FINDINGS: Lungs remain clear. Parenchymal nodules remain unchanged. There is no interval or progressive pulmonary nodularity. Bronchiectatic and atelectatic change medial right middle lobe as well as lingula persist and appears stable. There is currently no significant mediastinal or hilar adenopathy. Low density region involving the right hepatic lobe has resolved. 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 This is unchanged. IMPRESSION: Stable exam. No evidence for progressive pulmonary nodularity. Improved liver appearance with a low-density region resolved. No additional follow-up is required TTE 07/25/2015 * Ejection Fraction = >70 %. * A full diastolic examination was done with clinical findings of Class I diastolic dysfunction. * No regional wall motion abnormalities noted. * The right ventricle is mildly dilated. * The right ventricular systolic function is mildly reduced. * There is mild tricuspid regurgitation. * Right ventricular systolic pressure is elevated at 30-40mmHg. EKG EKG from 11/11/2016 Normal sinus rhythm at 80 bpm. Impression Assessment and Plan Acute on chronic hypoxic and hyperbaric respiratory failure Obesity hypoventilation syndrome (Pickwickian Syndrome) COPD MIKAYLA ESRD on HD Diastolic dysfunction Patient has acute on chronic hypoxic and hypercapnic respiratory failure which is most likely multifactorial in natures. She has COPD, MIKAYLA and OHS. Her chest xray does appear to have increased vascular congestion consistent and right lower lobe opacity that is unchanged from previous imaging back in August. I suspect that this is atelectasis. I feel that compliance with her trilogy BIPAP machine is up for question. At the current time of would continue with nasal cannula to obtain a SaO2 of about 88-92%. Be careful not to hyperoxygenate her as this can worsen CO2 retention. Continue with BiPAP - at current settings 16/5 with FiO2 of 35% during naps and at night Avoid narcotics and sedatives at this can worsen hypercarbia Continue Duonebs q6h , Advair 500/50 1 puff BID inh, Spiriva 1 puff daily, continue with Prednisone 50 mg with a slow taper. Can continue to treat empirically for pneumonia. Send sputum cultures. Continue with cardiac medications for better diastolic dysfunction and HD by nephrology for fluid removal. Continue with heparin SC for DVT ppx Lastly, we discussed tracheostomy at length as this may be option for her persistent hypercarbia. She states that she needs time to think about it and discuss with her family. I appreciate the consult and will continue to follow with you. Please contact me if you have any questions or concerns. <Electronically signed by Luzma Morton M.D.> Medication Reconciliation New Medications: Lidocaine (Lidocaine) 1 Patch Tdsy 1 PATCH TD QAM for 14 Days, #14 PATCH 0 Refills Oxycodone HCl (Oxycodone HCl) 5 Mg Tab 10 MG PO Q4H for 30 Days, #240 TAB 0 Refills Take 2 tablets PO Q4H for severe pain Take 1 tablet PO Q4H FOR moderate pain Pregabalin (Lyrica) 50 Mg Cap 50 MG PO DAILY for 30 Days, #30 CAP Take one capsule daily Changed Medications: Pregabalin (Lyrica) 50 Mg Cap 50 MG PO DAILY for 30 Days, #30 CAP (Changed from: Pregabalin (Lyrica) 75 Mg Cap 75 Mg PO BID 30 Days #60 CAP) Continued Medications: Allopurinol (Zyloprim) 100 Mg Tab 100 MG PO DAILY, TAB Ascorbic Acid (Vitamin C 500 mg) 1 Chw Chw 1000 MG PO DAILY Atorvastatin (Lipitor) 40 Mg Tab 40 MG PO DAILY, TAB B-Complex W/ C & Folic Acid (Renal) 1 Cap Cap 1 CAP PO QAM for 30 Days, #30 CAP Calcium Acetate (Phosphate Bin (Phoslo 667 Mg) 667 Mg Cap 667 MG PO ACHS, #120 Cholecalciferol (Vitamin D3) 1,000 Unit Tab 1000 INTER.UNIT PO DAILY, TAB Doxycycline Monohydrate (Monodox) 100 Mg Cap 100 MG PO DAILY, CAP Famotidine (Famotidine) 20 Mg Tab 20 MG PO DAILY for 30 Days, #30 TAB Fluticasone Prop/Salmeterol (Advair Diskus 500/50 60 Dose) 1 Ea Aerp 1 PUFF INH BID, INHALER Home O2 Therapy (Oxygen) Gas 3 LITERS NA CONTINOUS, BTL Insulin Aspart (Novolog Flexpen) 100 Units/Ml Inj 50 UNITS SQ W/BREAKFAST Insulin Aspart (Novolog Flexpen) 100 Units/Ml Inj 50 UNITS SQ W/LUNCH Insulin Aspart (Novolog Flexpen) 100 Units/Ml Inj 90 UNITS SQ W/SUPPER Insulin Aspart (Novolog Flexpen) 100 Units/Ml Inj 40 UNITS SQ HS PRN for Late Night Snack Insulin Glargine (Toujeo Solostar) 300 Unit/Ml Inj 70 UNITS SC TID ADMINISTER WITH BREAKFAST, EVENING MEAL AND AT BEDTIME Ipratropium-Albuterol (Duoneb) 3 Ml Nebu 1 TREATMENT INH Q6H PRN for SOB/Wheezing, INHA Metoprolol Succ (Toprol Xl) (Toprol-Xl ) 100 Mg Tabcr 150 MG PO UD, TAB 150MG DAILY ON NON-DIALYSIS DAYS. NONE ON DIALYSIS DAYS (THURSDAY, THURSDAY, THURSDAY) Multiple Vitamins W/ Minerals (One Daily For Women) 1 Tab Tab 1 TAB PO DAILY Pantoprazole (Protonix) 40 Mg Tab 40 MG PO DAILY, TAB Pyridoxine (Vitamin B6) 100 Mg Tab 200 MG PO DAILY, TAB Silver Sulfadiazine (Silvadene) 1 % Cre 1 APPLN TOP DAILY for 7 Days, #50 GM Tiotropium [place] (Spiriva Handihaler) 30 Puff/540 Mcg Aerp 1 CAP INH DAILY, INHALER Vitamin E (Vitamin E) 400 Unit Tab 800 INTER.UNIT PO DAILY Discontinued Medications: Hydrocodone/Acetaminophen 5MG/325MG ([place] 5MG/325MG) Tab 1 TAB PO Q6H PRN for Pain for 3 Days, #12 TAB PRN PAIN Discharge Exam Review of Systems: Constitutional: No fever, No chills ENT: No unusual epistaxis, No nasal symptoms Respiratory: No cough, No sputum, No wheezing Cardiovascular: No chest pain, No orthopnea Abdomen: No pain, No nausea, No vomiting Musculoskeletal: + muscle pain Genitourinary - Female: No dysuria, No urinary frequency, No urinary urgency Neurologic: No memory loss, No paralysis, No weakness Psychiatric: No depression symptoms, No anhedonism Endocrine: No fatigue, No excessive thirst Physical Exam: General Appearance: WD/WN, no apparent distress Neck: supple, no adenopathy Respiratory/Chest: chest non-tender, lungs clear, normal breath sounds Cardiovascular: regular rate, rhythm, no edema, no gallop Abdomen / GI: normal bowel sounds, non tender, soft Extremities: + pertinent finding (chornic quin changes) Skin: normal color, warm/dry Lymphatic: no adenopathy Hospital Course (1) Positive blood culture (2) Cellulitis of leg DATE OF ADMISSION: 11/11/2016 This is a level 3 inpatient admission, 40 minutes. CHIEF COMPLAINT: Altered mental status, hypoxic and worsening lower extremity red. HISTORY OF PRESENT ILLNESS: The patient is a 60-year-old white female with a significant past medical history of end-stage renal disease on dialysis, bilateral lower extremity cellulitis, morbid obesity, acute on chronic respiratory failure, hypoxic and hypercapnic, history of CHF, COPD, CO2 narcosis, diabetic, morbid obesity, comes to the hospital Emergency Department because of the above chief complaint. The information was obtained from ED physician and patient's . The patient was having some confused on BiPAP machine. The patient has been having worsening headache for a week associated with neck pain, shaky and unstable. also reported more redness in the abimael lower extremities. General condition has been getting worse every day, in recent along week, getting worse today associated with mental status changes. She is more confused. The patient has been on doxycycline for lower extremity cellulitis, however it comes and goes. She used to be on oxygen 2-3 liters at home. At nighttime she using CPAP because of sleep apnea and morbid obesity. She was using 10 hours last night for the CPAP machine, her mental status still getting worse. She had falls recently twice in the past week, but she did not hit her head per report from . said he is very dedicated and most of the time was with her. The patient has end-stage renal disease. During the previous dialysis, she was doing fairly okay. Has been on hemodialysis for refractory volume overload. When I interviewed with the patient, she was on the BiPAP machine, awakable, however only minimal open eyes, nodding head. Not really conversational. No fever or chill. No chest pain, palpitations. Lower extremity erythema is getting worse. No obvious edema. There were no open wounds in the lower extremity. No nausea, vomiting. Otherwise, review of system is limited. In the Emergency Room, they started BiPAP machine. PAST MEDICAL HISTORY: 1. Like I mentioned in the above, end-stage renal disease on dialysis, hypertension, diabetic, morbid obesity, COPD, home O2 dependent, has obesity hypoventilation syndrome. Follow up with reimbursement analyst and need BiPAP machine, has lung nodules 2. Arthritis. 3. Chronic lower extremity edema. 4. Monoclonal light chain monitored by Dr. Delong. 5. History of hypercalcemia. PAST SURGICAL HISTORY: Include left antecubital AV fistula created by Dr. Thapa in July 2016. ALLERGIES: ALLERGY TO DAPTO, IODINE, SHELL FISH, BACTRIM, CODEINE. FAMILY HISTORY: Include cancer, diabetic, gallbladder disease, heart disease, lung disease. SOCIAL HISTORY: Former smoker. Denied illicit drug abuse. Lives with , is , is unemployed. REVIEW OF SYSTEMS: Please see HPI, otherwise 14-point organ system review were negative. PHYSICAL EXAMINATION: VITAL SIGNS: Temperature is 36.7, pulse 79, respiration rate 20, blood pressure 140/57, pulse ox was 96% on room air. She is on BiPAP, FiO2 35%. GENERAL: The patient is a white female with morbid obesity, confused, responds to questions, minimal open eyes. No conversational. HEAD: Normocephalic. EYES: Pupils equal, round responds to light. EARS: Ear was normal. NOSE: Normal. NECK: Supple. Thyroid no enlargement. Trachea midline. HEART: Regular rhythm. S1, S2. LUNGS: Significant decreased breathing sounds. There was no obvious wheezing. ABDOMEN: Morbid obesity, nontender. Bowel sound was positive. Bilateral CVA was nontender. LOWER EXTREMITIES: 1+ edema. There were no open wounds, but lower extremity was erythema and red, mild hot and reported possible getting worse. NEUROLOGICAL EVALUATION: The patient is lethargic, confused. No obvious deficits. Moves upper and lower extremities. LABORATORY STUDIES: WBC 11, hemoglobin 10, platelet 215. Neutrophil was 76%. VBG: pH 7.14, pCO2 75, PO2 49, bicarb 25. BMP: Sodium 134, potassium 4.8, BUN 76, creatinine 10. Calcium 8.9. Liver function test was within normal limits. Cardiac enzyme, troponin was negative x1. Albumin 3.0. IMAGING STUDIES: Head CT studies, no acute intracranial findings. Chest x-ray evaluations, there was parenchymal infiltration in the right base. There was pulmonary vascular congestions, mild cardiomegaly. EKG studies were done in the Emergency Room, it was normal sinus rhythm, heart rate at 80 beats per minute. ASSESSMENT AND PLAN: A 60-year-old white female with the conditions see below: 1. Acute respiratory distress. 2. Acidosis, likely because of hypoxic pulmonary disease. 3. End-stage renal disease on dialysis, possible fluid overload. 4. Possible recurrent bilateral lower extremity cellulitis. 5. Possible mild sepsis. 6. History of end-stage renal disease on dialysis. 7. Diabetic, insulin-dependent. 8. Morbid obesity. 9. Chronic respiratory failure with O2 dependent. 10. Morbid obesity. 11. Obesity hypoventilation syndrome. 12. Arthritis. 13. History of hypercalcemia. PLAN: 1. The patient obvious has mental status changes associated with hypoxic acidosis, mental status changes and possible worsening lower extremity cellulitis. Therefore, possible has sepsis. Sepsis also can contribute to worsening mental status changes and respiratory distress. Because the patient has significant low pH value which possible and very likely is respiratory conditions causing the problem. She has a significant history of hypoventilation syndrome and hypoxic and hypercapnic failure , morbid obesity. I am having car ferrier evaluation for the ICU admission for now. At the same time, I will request nephrology evaluation because the patient is due for the dialysis today. Although the chemicals in the lab studies is not remarkable; however BUN 76, creatinine 10. We can start renal diet if she is more wake up 2. Possible sepsis, start broad-spectrum antibiotic with vanco and Zosyn for now because of obvious source of possible worsening infection in bilateral lower extremity for the cellulitis. Other factors indicate patient has possible sepsis including mental status changes and worsening sob/hypoxic. I sent a blood culture, UA and urine culture and for now, will cover with broad spectrum antibiotics . 3. will continue BiPAP machine. Nebulizer treatment, O2 support. Will watch respiratory rate and lab results. We will repeat VBG studies. Possible need to repeat a chest x-ray to define if there is real pneumonia or not. I did order ESR, CRP and procalcitonin level as well which will help to make judgment if patient has sepsis or not. 4 . Insulin-dependent diabetic. We will check hemoglobin A1c. Continue home dose of Glargine insulin. We will start insulin sliding scale. Request pharmacy for blood glucose management. 5. will continue home medicine of famotidine and Protonix for history of GERD, which also in cover for the GI prophylaxis. 6. chronic lower back pain. Will continue the current medication of hydrocodone/acetaminophen for pain control as needed. I am okay to give Dilaudid 1 mg q. 8 hours as needed for the severe lower back pain. 4. GI and DVT prophylaxis is covered. I discussed with about patient's current conditions, it could be the prognosis is very guarded. full code. Dictated: 11/11/16 1557 Transcribed: 11/11/16 1640 <Electronically signed by Pavel Krishna MD, PhD> Signed: 11/11/16 1723 ES Pavel Krishna MD, PhD The status of this report is Signed. Draft = Not yet reviewed or approved by Medical Physician. Signed = Reviewed and approved by Medical Physician. Hospital Course\\61 yo female with multiple medical conditions. Below is the summary of each treatment for each specific condition. Acute on Chronic Hypercarbic Respiratory Failure with COPD Exacerbation: Resolved - Initial treatment with BiPAP, IV Bicarb, and Emergent HD - Returned to baseline - utilizing BiPAP at night and chronic continuous O2 - Pulmonology followed and S/O - recommendations for trach but patient declined Bilateral Leg Cellulitis: RESOLVED - One positive BCx which is likely contaminant - Likely underlying insufficiency - ID Following - Completed 7 days IV Vancomycin and back on Doxycycline prophylaxis, continue this on discharge ESRD on Dialysis with S/P L AV Fistula Transposition 11/18: - Plans to convert to MWF routine - Nephrology following Neck and upper back pain - Lidoderm, Percocet - Oxycodone 10 mg for severe pain and 5 mg PO for moderate to mild pain. - continue therapy to keep patient moving - having difficulty with his knee and needs extra help at home T2DM: A1c 5.9 - Glycemic management DVT Prophylaxis: Heparin SC BID Discharge was over 30 minutes and this was independent of the trigger point injections that were performed on the patient. Total Time Spent: Greater than 30 minutes (independent of the procedure that was done today.) This includes examination of the patient, discharge planning, medication reconciliation, and communication with other providers. Discharge Instructions Please refer to the electronic Patient Visit Report (Discharge Instructions) for additional information. Follow-Up PCP in 2 weeks [facility] in 2-4 weeks Additional Copies To Emily Isaac C.R.N.P
[2016-12-05] MEDS ORDERED: ASCORBIC ACID 500 MG TAB PO ONE (11:51)
[2016-12-06] MEDS ORDERED: ASCORBIC ACID 500 MG TAB PO SCH (08:00)
== END 2016-11-27 15:15 | DRG 981 ==
LOC: EDBD 10:18 → C.EDA 10:19 → C.MSICU 15:21 → ENRESERV 15:39 → C.2T 11-12 22:31 → C.MS4W 11-14 09:20 → EDBEDREQ 11-14 09:25 → ENRESERV 11-14 09:33
PROVIDERS: ADMIT Hospitalist; ATTEND Internal Medicine Sports Medicine
PROC: 05SF0ZZ Reposition Left Cephalic Vein, Open Approach (ICD-10-PCS; principal; 2016-11-18 14:30)
PROC: 3E023GC Introduction of Other Therapeutic Substance into Muscle, Percutaneous Approach (ICD-10-PCS; 2016-11-27)
PROC: 3E023BZ Introduction of Anesthetic Agent into Muscle, Percutaneous Approach (ICD-10-PCS; 2016-11-27)
DX: J44.1 Chronic obstructive pulmonary disease with (acute) exacerbation (principal); J96.22 Acute and chronic respiratory failure with hypercapnia; N18.6 End stage renal disease; E87.2 Acidosis; L03.116 Cellulitis of left lower limb; L03.115 Cellulitis of right lower limb; I50.32 Chronic diastolic (congestive) heart failure; I13.2 Hypertensive heart and chronic kidney disease with heart failure and with stage 5 chronic kidney disease, or end stage renal disease; E66.2 Morbid (severe) obesity with alveolar hypoventilation; Z68.43 Body mass index [BMI] 50.0-59.9, adult; M54.2 Cervicalgia; M54.6 Pain in thoracic spine; I27.2 Other secondary pulmonary hypertension; E11.22 Type 2 diabetes mellitus with diabetic chronic kidney disease; G47.30 Sleep apnea, unspecified; D64.9 Anemia, unspecified; K21.9 Gastro-esophageal reflux disease without esophagitis; G89.29 Other chronic pain; M10.9 Gout, unspecified; M54.5 Low back pain; Z51.81 Encounter for therapeutic drug level monitoring; Z79.899 Other long term (current) drug therapy; Z79.4 Long term (current) use of insulin; Z99.81 Dependence on supplemental oxygen; Z91.81 History of falling; Z99.2 Dependence on renal dialysis; Z87.891 Personal history of nicotine dependence; Z83.3 Family history of diabetes mellitus; Z80.0 Family history of malignant neoplasm of digestive organs

== ENCOUNTER 2016-12-03 11:35 | Inpatient (IN) | payer OTHER, BC ==
[~2016-12-03] VITALS: Ht 165.1 cm; Wt 133.3 kg
[~2016-12-03 11:35] MED LIST changes: +DOXY100C76 PO; -DOXY100T PO; -HYDR-5688 PO; -LACT1LOT3 TOP; +LDDP5 TD; +LYR50 PO; -LYR75 PO; -MCTP TOP; +RXC5 PO; +SILV1CRE73 TOP; -VERA1TAB52 PO
[2016-12-03] MEDS ORDERED: SODIUM CHLORIDE 0.9% 250ML 250 ML IV STA ×2 (12:51→14:09)
[2016-12-03] MEDS ORDERED: FENTANYL CITRATE INJ 50 MCG/1 ML 2 ML VIAL IV STA (12:51)
--- NOTE | 2016-12-03 12:57 | EMERGENCY ROOM VISIT NOTE ---
History Report prepared by [place]: Lorie Nichole Under the Supervision of: Dr. Ford Miller M.D. First contact with patient: 12:41 Chief Complaint: HEAD PAIN Stated Complaint: HEAD PAINB/ABD PAIN/HIP PAIN History of Present Illness The patient is a 61 year old female who presents to the Emergency Room with complaints of increasing generalized pain that began several weeks ago. She currently rates her discomfort as a 9/10 in severity. Per nursing staff, the patient is currently on oral doxycycline and IV Vancomycin. Nursing staff reports that the patient is taking the Vancomycin for cellulitis. The patient' s family reports that the patient has been at [facility] for the past week after a fistula repair. The patient states that she last had dialysis on Thursday , noting that she is due today. The patient reports head pain and neck pain, but denies any recent fall. The patient's family states that the patient has had a decrease in appetite and has only been taking her prescribed [place] for pain. Source of History: patient Onset: several weeks ago Position: other (global) Symptom Intensity: 9/10 Quality: other (generalized pain) Timing: other (persistent) Associated Symptoms: + headache, + neck pain Note: Associated Symptoms: decrease in appetite Review of Systems See HPI for pertinent positives & negatives. A total of 10 systems reviewed and were otherwise negative. Past Medical & Surgical Medical Problems: (1) Abdominal wall cellulitis (2) Abdominal wall cellulitis (3) Abrasion of toe of right foot (4) acidosis, cO2 retension, AMS (5) Acute hypercapnic respiratory failure (6) Acute kidney injury (7) Acute on chronic diastolic (congestive) heart failure (8) Acute respiratory failure with hypoxia and hypercapnia (9) Anemia (10) Arthritis (11) Asymptomatic bacteriuria (12) Cellulitis of abdominal wall (13) Cervical Disc Degen (14) CHF (congestive heart failure) (15) Chronic kidney disease (CKD) stage G3b/A1, moderately decreased glomerular filtration rate (GFR) between 30-44 mL/min/1.73 square meter and albuminuria creatinine ratio less than 30 mg/g (16) CO2 narcosis (17) COPD (chronic obstructive pulmonary disease) (18) Cor pulmonale, chronic (19) Cystitis (20) Diab Mariama Wo Compl, Type Ii Or Unspec Type, Uncontrolled (21) Diabetes (22) Edema (23) ESRD on hemodialysis (24) Frequent falls (25) Hypercalcemia (26) Hypercalcemia (27) Hypercapnic respiratory failure (28) Hyperkalemia (29) Hyperphosphatemia (30) Hypokalemia (31) Hyponatremia (32) Metabolic alkalosis (33) Metabolic alkalosis with respiratory acidosis (34) Metabolic encephalopathy (35) Morbid obesity with BMI of 50.0-59.9, adult (36) Obesity hypoventilation syndrome (37) Obesity hypoventilation syndrome (38) Ovarian Cyst Nec/Nos (39) Pulmonary Collapse (40) Pulmonary nodules (41) Renal failure (ARF), acute on chronic (42) Sciatica (43) Venous stasis dermatitis of both lower extremities (44) Weakness Family History Cancer Diabetes mellitus Gallbladder disease Heart disease Lung disease Social History Smoking Status: Former Smoker Drug Use: none Marital Status: Housing Status: lives with family Occupation Status: unemployed Current/Historical Medications Scheduled Allopurinol (Zyloprim), 100 MG PO DAILY Ascorbic Acid (Vitamin C 500 mg), 1,000 MG PO DAILY Atorvastatin (Lipitor), 40 MG PO DAILY B-Complex W/ C & Folic Acid (Renal), 1 CAP PO QAM Calcium Acetate (Phosphate Bin (Phoslo 667 Mg), 667 MG PO ACHS Cholecalciferol (Vitamin D3), 1,000 INTER.UNIT PO DAILY Doxycycline Monohydrate (Monodox), 100 MG PO DAILY Famotidine (Famotidine), 20 MG PO DAILY Fluticasone Prop/Salmeterol (Advair Diskus 500/50 60 Dose), 1 PUFF INH BID Home O2 Therapy (Oxygen), 3 LITERS NA CONTINOUS Insulin Aspart (Novolog Flexpen), 50 UNITS SQ W/BREAKFAST Insulin Aspart (Novolog Flexpen), 50 UNITS SQ W/LUNCH Insulin Aspart (Novolog Flexpen), 90 UNITS SQ W/SUPPER Insulin Glargine (Toujeo Solostar), 70 UNITS SC TID Lidocaine (Lidocaine), 1 PATCH TD QAM Metoprolol Succ (Toprol Xl) (Toprol-Xl ), 150 MG PO UD Multiple Vitamins W/ Minerals (One Daily For Women), 1 TAB PO DAILY Oxycodone HCl (Oxycodone HCl), 10 MG PO Q4H Pantoprazole (Protonix), 40 MG PO DAILY Pregabalin (Lyrica), 50 MG PO DAILY Pregabalin (Lyrica), 50 MG PO DAILY Pyridoxine (Vitamin B6), 200 MG PO DAILY Silver Sulfadiazine (Silvadene), 1 APPLN TOP DAILY Tiotropium [place] (Spiriva Handihaler), 1 CAP INH DAILY Vitamin E (Vitamin E), 800 INTER.UNIT PO DAILY Scheduled PRN Insulin Aspart (Novolog Flexpen), 40 UNITS SQ HS PRN for Late Night Snack Ipratropium-Albuterol (Duoneb), 1 TREATMENT INH Q6H PRN for SOB/Wheezing Allergies Coded Allergies: Daptomycin (Verified Allergy, Intermediate, HIVES/ITCHING, 12/03/16) itching Sulfamethoxazole w/Trimethoprim (Verified Allergy, Intermediate, RASH, 12/03/16) Iodine (Verified Allergy, Unknown, 12/03/16) Shellfish (Verified Allergy, Unknown, 12/03/16) Codeine (Verified Adverse Reaction, Mild, NAUSEA, 12/03/16) has tolerated morphine Uncoded Allergies: kristina wipes (Allergy, Severe, red rash, excoriation, 09/19/16) comfort baths (Adverse Reaction, Severe, rash, "breaks out all over", ) Physical Exam Vital Signs Date Time Temp Pulse Resp B/P (MAP) Pulse Ox O2 Delivery O2 Flow Rate FiO2 12/03/16 15:31 99 20 103/49 89 Nasal Cannula 2.0 12/03/16 14:58 99 20 71/47 93 Nasal Cannula 2.0 12/03/16 14:53 101 12/03/16 14:42 98 20 82/36 97 Nasal Cannula 3.0 12/03/16 13:06 96 16 80/43 90 Nasal Cannula 3.0 12/03/16 12:33 95 22 86 12/03/16 12:31 91 16 61/38 12/03/16 12:29 94 16 92 12/03/16 12:27 94 18 91 12/03/16 12:25 91 25 91 12/03/16 12:23 92 18 93 12/03/16 12:21 91 20 92 12/03/16 12:19 98 21 92 12/03/16 12:17 97 15 92 12/03/16 12:15 92 21 94 12/03/16 12:13 92 17 100/44 93 12/03/16 12:11 91 25 91 12/03/16 12:09 91 27 90 12/03/16 12:07 96 19 97 12/03/16 12:05 92 20 97 12/03/16 12:03 93 Nasal Cannula 2.0 12/03/16 12:03 93 Nasal Cannula 2.0 12/03/16 12:03 93 20 95 12/03/16 12:01 85 22 77/36 83 12/03/16 12:00 95 12/03/16 11:53 36.5 94 22 85/54 86 Room Air 12/03/16 11:42 85/54 Physical Exam GENERAL: Patient is in no acute distress. HEENT: No acute trauma, normocephalic atraumatic, mucous membranes moist, no nasal congestion, no scleral icterus. NECK: No stridor, no adenopathy, no meningismus, trachea is midline. LUNGS: Clear to auscultation bilaterally, no wheeze, no rhonchi, breath sounds equal. HEART: 2/6 systolic murmur with a regular rate and rhythm ABDOMEN: Soft, nontender, bowel sounds positive, no hernias, no peritonitis. EXTREMITIES: Marked bilateral pedal edema, worse on the right, upper extremity edema bilaterally as well. She has wraps and dressing on both lower extremities as well, evidence for cellulitis on both lower extremities worse on right. Left upper extremity shows susan in the left bicep and left AC consistent with the fistula repair, surrounding erythema and warmth is noted. NEUROLOGIC: Oriented x 3, no acute motor or sensory deficits, no focal weakness. SKIN: No rash, no jaundice, no diaphoresis. Medical Decision & Procedures ER Provider Diagnostic Interpretation: Radiology results as stated below per my review and radiologist interpretation: SINGLE VIEW CHEST CLINICAL HISTORY: Atypical chest pain. FINDINGS: An AP, portable, upright chest radiograph is compared to study dated 11/13/2016. Correlation is made with chest CT dated 02/13/2016. The examination is degraded by portable technique, large body habitus, and patient rotation. Evaluation of the lung bases is significantly degraded by overlying soft tissue. A right internal jugular central venous catheter is unchanged in position. The heart appears mildly enlarged. There is prominence of the central pulmonary vasculature. Small pleural effusions are questioned. Apparent increase in density at the lung bases is likely related to overlying soft tissue. No pneumothorax is seen. The skeletal structures are osteopenic. The bony thorax is grossly intact. IMPRESSION: 1. Cardiomegaly with prominence of the pulmonary vasculature. Cortical clinically for evidence of mild congestive failure. 2. Question small pleural effusions. Evaluation of the lung bases is degraded by overlying soft tissue. Electronically signed by: Ford Mejia M.D. 12/03/2016 1:12 PM Dictated Date/Time: 12/03/2016 1:[address] SCAN OF THE BRAIN WITHOUT IV CONTRAST CLINICAL HISTORY: Headache. COMPARISON STUDY: CT of the brain dated 11/11/2016. TECHNIQUE: Unenhanced axial CT scan of the brain is performed from the vertex to the skull base. A dose lowering technique was utilized adhering to the principles of ALARA. CT DOSE: 614.27 mGy.cm FINDINGS: Brain parenchyma: There is minimal periventricular microangiopathic disease. There is no hemorrhage, mass effect, or evidence of acute territorial ischemia by CT criteria. Muñiz-white matter is preserved. No extra-axial fluid collection is seen. Ventricles, sulci, cisterns: Normal in configuration. Intracranial vasculature: There is mild atherosclerotic calcification of the cavernous carotid arteries. Calvarium: Unremarkable. Sinuses and mastoids: The visualized paranasal sinuses are clear. The mastoid air cells are well pneumatized. Orbits: The bony orbits are grossly intact. IMPRESSION: There is no hemorrhage, mass effect, or evidence of acute territorial ischemia by CT criteria. No significant change from 11/11/2016. Electronically signed by: Ford Mejia M.D. 12/03/2016 1:38 PM Dictated Date/Time: 12/03/2016 1:35 PM Laboratory Results 12/03/16 12:53 Red Blood Count 2.93, Mean Corpuscular Volume 103.4, Mean Corpuscular Hemoglobin 31.7, Mean Corpuscular Hemoglobin Concent 30.7, Mean Platelet Volume 9.2, Neutrophils (%) (Auto) 77.5, Lymphocytes (%) (Auto) 10.1, Monocytes (%) ( Auto) 9.0, Eosinophils (%) (Auto) 2.9, Basophils (%) (Auto) 0.2, Neutrophils # ( Auto) 7.40, Lymphocytes # (Auto) 0.97, Monocytes # (Auto) 0.86, Eosinophils # ( Auto) 0.28, Basophils # (Auto) 0.02 12/03/16 12:53 Test 12/03/16 12:52 12/03/16 12:53 Bedside Lactic Acid Venous 0.93 mmol/L (0.90-1.70) White Blood Count 9.56 K/uL (4.8-10.8) Red Blood Count 2.93 M/uL (4.2-5.4) Hemoglobin 9.3 g/dL (12.0-16.0) Hematocrit 30.3 % (37-47) Mean Corpuscular Volume 103.4 fL (80-100) Mean Corpuscular Hemoglobin 31.7 pg (25-34) Mean Corpuscular Hemoglobin Concent 30.7 g/dl (32-36) Platelet Count 216 K/uL (130-400) Mean Platelet Volume 9.2 fL (7.4-10.4) Neutrophils (%) (Auto) 77.5 % Lymphocytes (%) (Auto) 10.1 % Monocytes (%) (Auto) 9.0 % Eosinophils (%) (Auto) 2.9 % Basophils (%) (Auto) 0.2 % Neutrophils # (Auto) 7.40 K/uL (1.4-6.5) Lymphocytes # (Auto) 0.97 K/uL (1.2-3.4) Monocytes # (Auto) 0.86 K/uL (0.11-0.59) Eosinophils # (Auto) 0.28 K/uL (0-0.5) Basophils # (Auto) 0.02 K/uL (0-0.2) RDW Standard Deviation 80.2 fL (36.4-46.3) RDW Coefficient of Variation 21.1 % (11.5-14.5) Immature Granulocyte % (Auto) 0.3 % Immature Granulocyte # (Auto) 0.03 K/uL (0.00-0.02) Nucleated RBC Absolute Count (auto) 0.11 K/uL (0-0) Nucleated Red Blood Cells % 1.1 % Toxic Vacuolation 1+ Polychromasia 1+ Hypochromasia PRESENT Basophilic Stippling 1+ Anisocytosis PRESENT Macrocytosis PRESENT Prothrombin Time 10.7 SECONDS (9.0-12.0) Prothromb Time International Ratio 1.0 (0.9-1.1) Activated Partial Thromboplast Time 27.3 SECONDS (21.0-31.0) Partial Thromboplastin Ratio 1.1 Anion Gap 12.0 mmol/L (3-11) Est Creatinine Clear Calc Drug Dose 9.0 ml/min Estimated GFR () 4.7 Estimated GFR (Non- 4.0 BUN/Creatinine Ratio 3.8 (10-20) Calcium Level 8.7 mg/dl (8.5-10.1) Magnesium Level 2.7 mg/dl (1.8-2.4) Total Bilirubin 0.3 mg/dl (0.2-1) Aspartate Amino Transf (AST/SGOT) 17 U/L (15-37) Alanine Aminotransferase (ALT/SGPT) 10 U/L (12-78) Alkaline Phosphatase 141 U/L (45-117) Total Protein 7.7 gm/dl (6.4-8.2) Albumin 2.4 gm/dl (3.4-5.0) Globulin 5.3 gm/dl (2.5-4.0) Albumin/Globulin Ratio 0.5 (0.9-2) Laboratory results reviewed by me. Medications Administered Medications (Trade) Dose Ordered Sig/Duyen Route Start Time Stop Time Status Last Admin Dose Admin Fentanyl Citrate (Fentanyl Inj) 75 mcg NOW STAT IV 12/03/16 12:51 12/03/16 12:53 DC 12/03/16 13:01 75 MCG Sodium Chloride 250 ml @ 999 mls/hr Q16M STAT IV 12/03/16 12:51 12/03/16 13:06 DC 12/03/16 13:03 999 MLS/HR Vancomycin HCl (Vancomycin 1gm/ 270ml Nss) 1 gm NOW STAT IV 12/03/16 12:58 12/03/16 12:59 DC 12/03/16 13:17 1 GM Sodium Chloride 250 ml @ 999 mls/hr Q16M STAT IV 12/03/16 14:09 12/03/16 14:24 DC 12/03/16 14:56 999 MLS/HR Ceftriaxone Sodium (Rocephin Inj) 1 gm NOW STAT IV 12/03/16 14:21 12/03/16 14:22 DC 12/03/16 15:45 1 GM ECG Indication: other (generalized pain) Rate (beats per minute): 92 Rhythm: normal sinus Findings: no acute ischemic change, no ectopy ED Course 1243: The patient was evaluated in room A3. A complete history and physical exam was performed. 1251: Ordered Sodium Chloride 250 ml @ 999 mls/hr IV, Fentanyl Inj 75 mcg IV. 1258: Ordered Vancomycin HCl 1 gm IV. 1401: I reevaluated the patient and she is resting more comfortably. I discussed the exam findings with her and her family and I discussed the treatment plan. They verbalized complete understanding and agreement. The patient will be evaluated for further treatment. 1407: I discussed the patients case with Dr. Leblanc, Nephrology. He states that the patient should not have dialysis today due to her hypotension. He states that the patient should stay in the hospital for further treatment and evaluation. 1409: Ordered Sodium Chloride 250 ml @ 999 mls/hr IV. 1414: I discussed the patients case with Dr. Aguilar [facility]. He is going to evaluate the patient for further treatment. 1421: Ordered Rocephin Inj 1 gm IV. Medical Decision The patient is a 61 year old female who presents to the ED with complaints of generalized pain. Differential diagnoses considered include Failed outpatient treatment, renal failure, CHF, cellulitis, wound infection, intracranial bleeding, pneumonia, electrolyte imbalance, anemia. There is no leukocytosis. The patient is anemic but this appears baseline looking back at previous testing. Renal panel testing shows a high creatinine consistent with her dialysis. Potassium was normal. There is no hepatitis. No coagulopathy. Chest x-ray shows some congestion but no ofelia failure, no pneumonia. Brain CT shows no acute bleed or mass effect. EKG shows a normal sinus rhythm, no acute ischemia. Lactic acid level is not elevated making severe sepsis less likely. Blood cultures are pending. The patient presents with multiple complaints. She has a headache and neck pain -these seem more chronic than acute. She has increasing edema of her extremities and appears to be failing outpatient treatment for cellulitis. Her left AV fistula repair site is becoming erythematous. She has been noting a decreased intake orally and has been hypotensive. She presents hypotensive today. The patient received small boluses of IV saline, she improved with this intervention. She received IV fentanyl for pain. She received IV vancomycin and IV ceftriaxone as antibiotic coverage. I spoke with the on-call construction worker. I spoke with the patient. Admission/ observation is warranted given the persistent hypotension. I suspect the hypotension is from a lack of fluid intake. Dehydration is the likely cause. Certainly, infection could be contributing to her presentation. Further care in the hospital is warranted. I spoke with case management. The on-call hospitalist was consulted. Medication Reconcilliation Current Medication List: was personally reviewed by me Blood Pressure Screening Patient's blood pressure: Low blood pressure Blood pressure disposition: Did not require urgent referral Consults Time Called: 1406 Consulting Physician: Dr. Leblanc, Nephrology Returned Call: [phone] I discussed the patients case with Dr. Leblanc, Nephrology. He states that the patient should not have dialysis today due to her hypotension. He states that the patient should stay in the hospital for further treatment and evaluation. Additional Consults: Time Called: 1410 Consulted Physician: HARPREET Gross Returned Call: [phone] Additional Comments: I discussed the patients case with HARPREET Gross. He is going to evaluate the patient for further treatment. Impression Primary Impression: Cellulitis Additional Impressions: Hypotension Headache Failure of outpatient treatment Scribe Attestation The scribe's documentation has been prepared under my direction and personally reviewed by me in its entirety. I confirm that the note above accurately reflects all work, treatment, procedures, and medical decision making performed by me. Departure Information Dispostion Being Evaluated By Hospitalist Referrals Emily Isaac C.R.N.P (PCP) Problem Qualifiers
[2016-12-03] MEDS ORDERED: VANCOMYCIN 1GM/270ML NSS IV STA (12:58)
--- NOTE | 2016-12-03 13:13 | DIAGNOSTIC IMAGING REPORT ---
SINGLE VIEW CHEST CLINICAL HISTORY: Atypical chest pain. FINDINGS: An AP, portable, upright chest radiograph is compared to study dated 11/13/2016. Correlation is made with chest CT dated 02/13/2016. The examination is degraded by portable technique, large body habitus, and patient rotation. Evaluation of the lung bases is significantly degraded by overlying soft tissue. A right internal jugular central venous catheter is unchanged in position. The heart appears mildly enlarged. There is prominence of the central pulmonary vasculature. Small pleural effusions are questioned. Apparent increase in density at the lung bases is likely related to overlying soft tissue. No pneumothorax is seen. The skeletal structures are osteopenic. The bony thorax is grossly intact. IMPRESSION: 1. Cardiomegaly with prominence of the pulmonary vasculature. Cortical clinically for evidence of mild congestive failure. 2. Question small pleural effusions. Evaluation of the lung bases is degraded by overlying soft tissue. Electronically signed by: Ford Mejia M.D. 12/03/2016 1:12 PM Dictated Date/Time: 12/03/2016 1:10 PM
[2016-12-03 13:16] LABS: BASO % 0.2 %; BASO ABS # 0.02 K/uL (0-0.2); EOS % 2.9 %; HEMATOCRIT 30.3 % (37-47); IG% 0.3 %; LYMPH % 10.1 %; LYMPH ABS # 0.97 K/uL (1.2-3.4); MEAN CELL VOLUME 103.4 fL (80-100); MEAN CORPUSCULAR HEMOGLOBIN 31.7 pg (25-34); MEAN CORPUSCULAR HGB CONC 30.7 g/dl (32-36); MEAN PLATELET VOLUME 9.2 fL (7.4-10.4); NEUT % 77.5 %; PLATELET COUNT 216 K/uL (130-400); RED BLOOD COUNT 2.93 M/uL (4.2-5.4); WHITE BLOOD COUNT 9.56 K/uL (4.8-10.8)
[2016-12-03 13:21] LABS: PARTIAL THROMBOPLASTIN RATIO 1.1; PROTHROMBIN TIME (PATIENT) 10.7 SECONDS (9.0-12.0)
--- NOTE | 2016-12-03 13:39 | DIAGNOSTIC IMAGING REPORT ---
CT SCAN OF THE BRAIN WITHOUT IV CONTRAST CLINICAL HISTORY: Headache. COMPARISON STUDY: CT of the brain dated 11/11/2016. TECHNIQUE: Unenhanced axial CT scan of the brain is performed from the vertex to the skull base. A dose lowering technique was utilized adhering to the principles of ALARA. CT DOSE: 614.27 mGy.cm FINDINGS: Brain parenchyma: There is minimal periventricular microangiopathic disease. There is no hemorrhage, mass effect, or evidence of acute territorial ischemia by CT criteria. Muñiz-white matter is preserved. No extra-axial fluid collection is seen. Ventricles, sulci, cisterns: Normal in configuration. Intracranial vasculature: There is mild atherosclerotic calcification of the cavernous carotid arteries. Calvarium: Unremarkable. Sinuses and mastoids: The visualized paranasal sinuses are clear. The mastoid air cells are well pneumatized. Orbits: The bony orbits are grossly intact. IMPRESSION: There is no hemorrhage, mass effect, or evidence of acute territorial ischemia by CT criteria. No significant change from 11/11/2016. Electronically signed by: Ford Mejia M.D. 12/03/2016 1:38 PM Dictated Date/Time: 12/03/2016 1:35 PM
[2016-12-03 13:40] LABS: ALB/GLOB RATIO 0.5 (0.9-2); BUN/CREATININE RATIO 3.8 (10-20); CALCIUM 8.7 mg/dl (8.5-10.1); CREATININE 9.3 mg/dl (0.60-1.20); POTASSIUM 4.6 mmol/L (3.5-5.1)
[2016-12-03 13:43] LABS: ANISOCYTOSIS PRESENT; COMPLETE YES; HYPOCHROMIA PRESENT; POLYCHROMASIA 1+; VACUOLIZATION 1+
[2016-12-03] MEDS ORDERED: CEFTRIAXONE SOD INJ 1 GM ADDVIAL IV STA (14:21)
[2016-12-03] MEDS ORDERED: SODIUM CHLORIDE 0.9% 500ML 500 ML IV STA ×2 (15:00→18:09)
[2016-12-03] MEDS ORDERED: IV FLUIDS COMPLETED PRN (15:30)
[2016-12-03 15:35] VITALS: Ht 165.1 cm; Wt 133.3 kg
[2016-12-03] MEDS ORDERED: ACETAMINOPHEN 325 MG TAB PO PRN (15:45)
[2016-12-03] MEDS ORDERED: NITROGLYCERIN 0.4 MG SL PER TAB CHARGE SL PRN (15:45)
[2016-12-03 16:12] VITALS: BP 84/54; PULSE 98; TEMP 36.7; O2SAT 93
[2016-12-03] MEDS ORDERED: INFLUENZA VIRUS QUAD VACCINE 0.5 ML SYR IM. ONE (16:15)
[2016-12-03] MEDS ORDERED: INFLUENZA ADMINISTRATION CHARGE ONE (16:15)
[2016-12-03] MEDS ORDERED: GLUCOSE 10 TABS/TUBE PO PRN (17:30)
[2016-12-03] MEDS ORDERED: GLUCOSE 40% GEL 15 GM TUBE PO PRN (17:30)
[2016-12-03] MEDS ORDERED: GLUCAGON FOR INJ 1 MG VIAL SQ PRN (17:30)
[2016-12-03] MEDS ORDERED: DEXTROSE 50% 50 ML SYR IV PRN (17:30)
[2016-12-03] MEDS: ONDANSETRON INJ 2 MG/ML 2 ML VIAL IV PRN (17:59)
[2016-12-03] MEDS: HYDROCODONE/ACETAMI 10/325 TAB PO PRN ×2 (19:10→23:57)
[2016-12-03 19:32] VITALS: BP 101/53; PULSE 105; O2SAT 91
--- NOTE | 2016-12-03 19:35 | History and Physical ---
History & Physical Date & Time of Service: Dec 03, 2016 at 17:09 Chief Complaint: Hypotension Primary Care Physician: Emily Isaac C.R.N.P Past Medical/Surgical History Medical Problems: (1) Cellulitis of abdominal wall Status: Chronic (2) Cervical Disc Degen Status: Chronic (3) CHF (congestive heart failure) Status: Chronic (4) COPD (chronic obstructive pulmonary disease) Status: Chronic (5) Diab Mariama Wo Compl, Type Ii Or Unspec Type, Uncontrolled Status: Chronic (6) Diabetes Status: Chronic (7) Ovarian Cyst Nec/Nos Status: Chronic (8) Pulmonary Collapse Status: Resolved (9) Sciatica Status: Chronic Family History Cancer Diabetes mellitus Gallbladder disease Heart disease Lung disease Social History Smoking Status: Former Smoker Drug Use: none Marital Status: Housing status: lives with family Occupational Status: unemployed Immunizations History of Influenza Vaccine: Yes Influenza Vaccine Date: Apr 15, 2012 History of Tetanus Vaccine?: No History of Pneumococcal: Yes Pneumococcal Date: Jan 13, 2013 History of Hepatitis B Vaccine: No Multi-Drug Resistant Organisms History of MDRO: No Allergies Coded Allergies: Daptomycin (Verified Allergy, Intermediate, HIVES/ITCHING, 12/03/16) itching Sulfamethoxazole w/Trimethoprim (Verified Allergy, Intermediate, RASH, 12/03/16) Iodine (Verified Allergy, Unknown, 12/03/16) Shellfish (Verified Allergy, Unknown, 12/03/16) Codeine (Verified Adverse Reaction, Mild, NAUSEA, 12/03/16) has tolerated morphine Uncoded Allergies: kristina wipes (Allergy, Severe, red rash, excoriation, 09/19/16) comfort baths (Adverse Reaction, Severe, rash, "breaks out all over", ) Home Medications Scheduled Allopurinol (Zyloprim), 100 MG PO DAILY Ascorbic Acid (Vitamin C 500 mg), 1,000 MG PO DAILY Atorvastatin (Lipitor), 40 MG PO DAILY B-Complex W/ C & Folic Acid (Renal), 1 CAP PO QAM Calcium Acetate (Phosphate Bin (Phoslo 667 Mg), 667 MG PO ACHS Cholecalciferol (Vitamin D3), 1,000 INTER.UNIT PO DAILY Doxycycline Monohydrate (Monodox), 100 MG PO DAILY Famotidine (Famotidine), 20 MG PO DAILY Fluticasone Prop/Salmeterol (Advair Diskus 500/50 60 Dose), 1 PUFF INH BID Home O2 Therapy (Oxygen), 3 LITERS NA CONTINOUS Insulin Aspart (Novolog Flexpen), 50 UNITS SQ W/BREAKFAST Insulin Aspart (Novolog Flexpen), 50 UNITS SQ W/LUNCH Insulin Aspart (Novolog Flexpen), 90 UNITS SQ W/SUPPER Insulin Glargine (Toujeo Solostar), 70 UNITS SC TID Lidocaine (Lidocaine), 1 PATCH TD QAM Metoprolol Succ (Toprol Xl) (Toprol-Xl ), 150 MG PO UD Multiple Vitamins W/ Minerals (One Daily For Women), 1 TAB PO DAILY Oxycodone HCl (Oxycodone HCl), 10 MG PO Q4H Pantoprazole (Protonix), 40 MG PO DAILY Pregabalin (Lyrica), 50 MG PO DAILY Pregabalin (Lyrica), 50 MG PO DAILY Pyridoxine (Vitamin B6), 200 MG PO DAILY Silver Sulfadiazine (Silvadene), 1 APPLN TOP DAILY Tiotropium [place] (Spiriva Handihaler), 1 CAP INH DAILY Vitamin E (Vitamin E), 800 INTER.UNIT PO DAILY Scheduled PRN Insulin Aspart (Novolog Flexpen), 40 UNITS SQ HS PRN for Late Night Snack Ipratropium-Albuterol (Duoneb), 1 TREATMENT INH Q6H PRN for SOB/Wheezing Physical Exam Vital Signs Date Time Temp Pulse Resp B/P (MAP) Pulse Ox O2 Delivery O2 Flow Rate FiO2 12/03/16 16:12 36.7 98 22 84/54 (64) 93 Nasal Cannula 2.0 12/03/16 15:59 36.5 99 20 103/49 89 12/03/16 15:35 Nasal Cannula 2.0 12/03/16 15:31 99 20 103/49 89 Nasal Cannula 2.0 12/03/16 14:58 99 20 71/47 93 Nasal Cannula 2.0 12/03/16 14:53 101 12/03/16 14:42 98 20 82/36 97 Nasal Cannula 3.0 12/03/16 13:06 96 16 80/43 90 Nasal Cannula 3.0 12/03/16 12:33 95 22 86 12/03/16 12:31 91 16 61/38 12/03/16 12:29 94 16 92 12/03/16 12:27 94 18 91 12/03/16 12:25 91 25 91 12/03/16 12:23 92 18 93 12/03/16 12:21 91 20 92 12/03/16 12:19 98 21 92 12/03/16 12:17 97 15 92 12/03/16 12:15 92 21 94 12/03/16 12:13 92 17 100/44 93 12/03/16 12:11 91 25 91 12/03/16 12:09 91 27 90 12/03/16 12:07 96 19 97 12/03/16 12:05 92 20 97 12/03/16 12:03 93 Nasal Cannula 2.0 12/03/16 12:03 93 Nasal Cannula 2.0 12/03/16 12:03 93 20 95 12/03/16 12:01 85 22 77/36 83 12/03/16 12:00 95 12/03/16 11:53 36.5 94 22 85/54 86 Room Air 12/03/16 11:42 85/54 Diagnostics Laboratory Results Results Past 24 Hours Test 12/03/16 12:52 12/03/16 12:53 Range/Units Bedside Lactic Acid Venous 0.93 0.90-1.70 mmol/L White Blood Count 9.56 4.8-10.8 K/uL Red Blood Count 2.93 4.2-5.4 M/uL Hemoglobin 9.3 12.0-16.0 g/dL Hematocrit 30.3 37-47 % Mean Corpuscular Volume 103.4 80-100 fL Mean Corpuscular Hemoglobin 31.7 25-34 pg Mean Corpuscular Hemoglobin Concent 30.7 32-36 g/dl Platelet Count 216 130-400 K/uL Mean Platelet Volume 9.2 7.4-10.4 fL Neutrophils (%) (Auto) 77.5 % Lymphocytes (%) (Auto) 10.1 % Monocytes (%) (Auto) 9.0 % Eosinophils (%) (Auto) 2.9 % Basophils (%) (Auto) 0.2 % Neutrophils # (Auto) 7.40 1.4-6.5 K/uL Lymphocytes # (Auto) 0.97 1.2-3.4 K/uL Monocytes # (Auto) 0.86 0.11-0.59 K/uL Eosinophils # (Auto) 0.28 0-0.5 K/uL Basophils # (Auto) 0.02 0-0.2 K/uL RDW Standard Deviation 80.2 36.4-46.3 fL RDW Coefficient of Variation 21.1 11.5-14.5 % Immature Granulocyte % (Auto) 0.3 % Immature Granulocyte # (Auto) 0.03 0.00-0.02 K/uL Nucleated RBC Absolute Count (auto) 0.11 0-0 K/uL Nucleated Red Blood Cells % 1.1 % Toxic Vacuolation 1+ Polychromasia 1+ Hypochromasia PRESENT Basophilic Stippling 1+ Anisocytosis PRESENT Macrocytosis PRESENT Prothrombin Time 10.7 9.0-12.0 SECONDS Prothromb Time International Ratio 1.0 0.9-1.1 Activated Partial Thromboplast Time 27.3 21.0-31.0 SECONDS Partial Thromboplastin Ratio 1.1 Sodium Level 135 136-145 mmol/L Potassium Level 4.6 3.5-5.1 mmol/L Chloride Level 99 98-107 mmol/L Carbon Dioxide Level 24 21-32 mmol/L Anion Gap 12.0 3-11 mmol/L Blood Urea Nitrogen 35 7-18 mg/dl Creatinine 9.30 0.60-1.20 mg/dl Est Creatinine Clear Calc Drug Dose 9.0 ml/min Estimated GFR () 4.7 Estimated GFR (Non- 4.0 BUN/Creatinine Ratio 3.8 10-20 Random Glucose 137 70-99 mg/dl Calcium Level 8.7 8.5-10.1 mg/dl Magnesium Level 2.7 1.8-2.4 mg/dl Total Bilirubin 0.3 0.2-1 mg/dl Aspartate Amino Transf (AST/SGOT) 17 15-37 U/L Alanine Aminotransferase (ALT/SGPT) 10 12-78 U/L Alkaline Phosphatase 141 45-117 U/L Total Protein 7.7 6.4-8.2 gm/dl Albumin 2.4 3.4-5.0 gm/dl Globulin 5.3 2.5-4.0 gm/dl Albumin/Globulin Ratio 0.5 0.9-2 Microbiology Results 12/03/16 Blood Culture, Received Pending 12/03/16 Blood Culture, Received Pending Impression Assessment and Plan Resident Physician Supervision Note: I interviewed and examined the patient. Discussed with Dr. Overtno and agree with findings and plan as documented in the note. Any exceptions or clarifications are listed here: None Documented By: Michael Lockhart neck pain swelling in hands and legs otherwise as per dr overton vitals noted appearing uncomfortable w neck pain hands and legs swollen, legs with chronic appearing changes but also some bright red, mildly warm ost - L>R suboccipitals and cervical paraspinals high tone/tender/decreased ROM - inhibitory pressure and unwinding - improved tissue texture otherwise exam as per R3 neck pain - appearing muscular - voltaren gel, OMT, possibly needing more trigger point injections ESRD on HD w anasarca - nephrology has noted to family - -?albumin. follow cellulitis - doxy somatic dysfunction cervical - OMT as above otherwise as above Advanced Directives Existing Living Will: Yes Existing Power of Mandarin Tutor: Yes VTE Prophylaxis VTE Risk Assessment Done? Y/N: Yes Risk Level: Moderate
[2016-12-03 20:00] VITALS: O2SAT 93
[2016-12-03] MEDS: FLUTICASONE/SALMETEROL (ADVAIR) 500/50 INH 14 PUFF INH SCH (20:55)
[2016-12-03] MEDS: DICLOFENAC SOD 1% GEL 100 GM TUBE EXT SCH (20:56)
[2016-12-03] MEDS: CALCIUM ACETATE 667MG GELCAP PO SCH (20:59)
[2016-12-03] MEDS: INSULIN ASPART 100 UNITS/ML 3 ML PEN SC SCH (21:00)
[2016-12-03] MEDS: INSULIN GLARGINE SC SCH (21:10)
[2016-12-03] MEDS: HEPARIN SOD 5000 UNIT/0.5 ML CARP SQ SCH (21:27)
--- NOTE | 2016-12-03 21:33 | Medical Student: [facility] ---
Med Student History & Physical Date & Time of Service: Dec 03, 2016 at 20:15 Chief Complaint: Hypotension Primary Care Physician: Emily Isaac C.R.N.P History of Present Illness Source: patient, family pt is a 61 yo F who with history COPD, HTN, T2DM, and end-stage renal disease presented to the ED with increasingly severe neck pain that first began a few weeks ago, bilateral arm/hand swelling, bilateral lower extremity cellulitis, loss of appetite, and inability to urinate. Pt has been staying at [facility] since her last stay at [facility]. The neck pain when at the ED was rated as a 9/10 sharp pain, and severe pain seems to be episodic although it does not go away completely. The pain radiated up the neck to the back of the head to approximately the top of the head. Pt takes narcotic pills prescribed for pain which relieves the symptoms. She also tried percocet which made her nauseous. 2.5 weeks ago pt underwent a fistula repair in the left arm, and was told to expect left upper extremity swelling, but noticed bilateral upper extremity swelling 1 day after, which have no resolved. Pt has had similar swelling in the past but not this severe or long-lasting, and were usually resolved with dialysis; pt has had several dialyses since the surgery. Her bilateral lower extremity cellulitis had been improving but worsened again after the surgery. Pt 's loss of appetite began 1.5 weeks ago and has only eaten a few times (fruits, toast) since and took water with her pills. She reports food she used to enjoy not appealing to her anymore. Since her last hospitalization, pt has been unable to urinate. She feels urgency but is unable to produce any urine, denies burning sensation, and reports suprapubic fullness/pressure. Past Medical/Surgical History Medical Problems: (1) Acute respiratory failure with hypoxia and hypercarbia Status: Acute (2) Altered mental status Status: Acute (3) Anasarca Status: Acute (4) Anasarca Status: Acute (5) Bilateral cellulitis of lower leg Status: Acute (6) Bilateral lower leg cellulitis Status: Acute (7) Cellulitis Status: Acute (8) Change in mental status Status: Acute (9) Chronic renal failure Status: Acute (10) CO2 retention Status: Acute (11) Contusion of multiple sites Status: Acute (12) Dehydration Status: Acute (13) Dyspnea on exertion Status: Acute (14) Failure of outpatient treatment Status: Acute (15) Fall Status: Acute (16) Fall Status: Acute (17) Fever Status: Acute (18) Fever Status: Acute (19) Generalized weakness Status: Acute (20) Headache Status: Acute (21) Hypercarbia Status: Acute (22) Hyperkalemia Status: Acute (23) Hypokalemia Status: Acute (24) Hypotension Status: Acute (25) Hypoventilation Status: Acute (26) Hypoxemia Status: Acute (27) Hypoxia Status: Acute (28) Lumbar strain Status: Acute (29) Metabolic acidosis Status: Acute (30) Nail avulsion of toe Status: Acute (31) Obesity Status: Acute (32) Respiratory failure Status: Acute (33) Weakness Status: Acute (34) Weight gain Status: Acute (35) Wrist pain Status: Acute Family History Father - pancreatic cancer Mother - COPD Sister - Diabetes Social History Smoking Status: Former Smoker (quit 7 yrs ago) Alcohol Use: none Drug Use: none Marital Status: Housing status: lives with family Occupational Status: unemployed Immunizations History of Influenza Vaccine: Yes Influenza Vaccine Date: Apr 15, 2012 History of Tetanus Vaccine?: No History of Pneumococcal: Yes Pneumococcal Date: Jan 13, 2013 History of Hepatitis B Vaccine: No Allergies Coded Allergies: Daptomycin (Verified Allergy, Intermediate, HIVES/ITCHING, 12/03/16) itching Sulfamethoxazole w/Trimethoprim (Verified Allergy, Intermediate, RASH, 12/03/16) Iodine (Verified Allergy, Unknown, 12/03/16) Shellfish (Verified Allergy, Unknown, 12/03/16) Codeine (Verified Adverse Reaction, Mild, NAUSEA, 12/03/16) has tolerated morphine Uncoded Allergies: kristina wipes (Allergy, Severe, red rash, excoriation, 09/19/16) comfort baths (Adverse Reaction, Severe, rash, "breaks out all over", ) Medications Allopurinol (Zyloprim), 100 MG PO DAILY Ascorbic Acid (Vitamin C 500 mg), 1,000 MG PO DAILY Atorvastatin (Lipitor), 40 MG PO DAILY B-Complex W/ C & Folic Acid (Renal), 1 CAP PO QAM Calcium Acetate (Phosphate Bin (Phoslo 667 Mg), 667 MG PO ACHS Cholecalciferol (Vitamin D3), 1,000 INTER.UNIT PO DAILY Doxycycline Monohydrate (Monodox), 100 MG PO DAILY Famotidine (Famotidine), 20 MG PO DAILY Fluticasone Prop/Salmeterol (Advair Diskus 500/50 60 Dose), 1 PUFF INH BID Home O2 Therapy (Oxygen), 3 LITERS NA CONTINOUS Insulin Aspart (Novolog Flexpen), 50 UNITS SQ W/BREAKFAST Insulin Aspart (Novolog Flexpen), 50 UNITS SQ W/LUNCH Insulin Aspart (Novolog Flexpen), 90 UNITS SQ W/SUPPER Insulin Aspart (Novolog Flexpen), 40 UNITS SQ HS PRN for Late Night Snack Insulin Glargine (Toujeo Solostar), 70 UNITS SC TID Ipratropium-Albuterol (Duoneb), 1 TREATMENT INH Q6H PRN for SOB/Wheezing Lidocaine (Lidocaine), 1 PATCH TD QAM Metoprolol Succ (Toprol Xl) (Toprol-Xl ), 150 MG PO UD Multiple Vitamins W/ Minerals (One Daily For Women), 1 TAB PO DAILY Oxycodone HCl (Oxycodone HCl), 10 MG PO Q4H Pantoprazole (Protonix), 40 MG PO DAILY Pregabalin (Lyrica), 50 MG PO DAILY Pregabalin (Lyrica), 50 MG PO DAILY Pyridoxine (Vitamin B6), 200 MG PO DAILY Silver Sulfadiazine (Silvadene), 1 APPLN TOP DAILY Tiotropium [place] (Spiriva Handihaler), 1 CAP INH DAILY Vitamin E (Vitamin E), 800 INTER.UNIT PO DAILY Review of Systems Constitutional: No fever, No chills, No sweats Eyes: + worsening of vision (headache-associated blurriness) ENT: No hearing loss Respiratory: + shortness of breath (reports difficulty breathing when lying down, relieved by sitting up), No cough, No wheezing Cardiovascular: + edema, No chest pain Abdomen: + nausea, No pain, No vomiting Musculoskeletal: + swelling, No joint pain, No muscle pain Genitourinary - Female: + urinary retention (unable to urinate for several weeks) Neurologic: + numbness/tingling (hands/feet), No memory loss, No weakness Psychiatric: No depression symptoms, No anxiety Endocrine: + fatigue Hematologic / Lymphatic: No abnormal bleeding/bruising, No swollen lymph nodes Integumentary: + rash (abdomen under skin fold), + problem reported (bilateral lower leg flaky/peeling skin (cellulitis)) Physical Exam Vital Signs (24 Hours) Date Time Temp Pulse Resp B/P (MAP) Pulse Ox O2 Delivery O2 Flow Rate FiO2 12/03/16 19:32 105 26 101/53 (69) 91 2.0 12/03/16 16:12 36.7 98 22 84/54 (64) 93 Nasal Cannula 2.0 12/03/16 15:59 36.5 99 20 103/49 89 12/03/16 15:35 Nasal Cannula 2.0 12/03/16 15:31 99 20 103/49 89 Nasal Cannula 2.0 12/03/16 14:58 99 20 71/47 93 Nasal Cannula 2.0 12/03/16 14:53 101 12/03/16 14:42 98 20 82/36 97 Nasal Cannula 3.0 12/03/16 13:06 96 16 80/43 90 Nasal Cannula 3.0 12/03/16 12:33 95 22 86 12/03/16 12:31 91 16 61/38 12/03/16 12:29 94 16 92 12/03/16 12:27 94 18 91 12/03/16 12:25 91 25 91 12/03/16 12:23 92 18 93 12/03/16 12:21 91 20 92 12/03/16 12:19 98 21 92 12/03/16 12:17 97 15 92 12/03/16 12:15 92 21 94 12/03/16 12:13 92 17 100/44 93 12/03/16 12:11 91 25 91 12/03/16 12:09 91 27 90 12/03/16 12:07 96 19 97 12/03/16 12:05 92 20 97 12/03/16 12:03 93 Nasal Cannula 2.0 12/03/16 12:03 93 Nasal Cannula 2.0 12/03/16 12:03 93 20 95 12/03/16 12:01 85 22 77/36 83 12/03/16 12:00 95 12/03/16 11:53 36.5 94 22 85/54 86 Room Air 12/03/16 11:42 85/54 General Appearance: + moderate distress Head: normocephalic, atraumatic Eyes: normal inspection ENT: normal ENT inspection, hearing grossly normal Neck: no adenopathy, no JVD, no carotid bruits, + pertinent finding ( tenderness in back of neck) Respiratory/Chest: chest non-tender, lungs clear, + respiratory distress Cardiovascular: regular rate, rhythm, no gallop, no JVD, no murmur, normal peripheral pulses Abdomen/GI: normal bowel sounds, non tender, soft, no pulsatile mass Back: normal inspection, + pertinent finding (pain/tenderness in tailbone area , longstanding & position-dependent) Extremities/Musculoskelatal: + pedal edema, + swelling Neurologic/Psych: alert, normal mood/affect, oriented x 3 Skin: normal color, + rash (under abdominal skin fold), + pertinent finding ( lower leg cellulitis - erythema with skin flaking/peeling , tenderness on palpation bilaterally) Lymphatic: no adenopathy Diagnostics Laboratory Results Results Past 24 Hours Test 12/03/16 12:52 12/03/16 12:53 12/03/16 17:14 Range/Units Bedside Lactic Acid Venous 0.93 0.90-1.70 mmol/L White Blood Count 9.56 4.8-10.8 K/uL Red Blood Count 2.93 4.2-5.4 M/uL Hemoglobin 9.3 12.0-16.0 g/dL Hematocrit 30.3 37-47 % Mean Corpuscular Volume 103.4 80-100 fL Mean Corpuscular Hemoglobin 31.7 25-34 pg Mean Corpuscular Hemoglobin Concent 30.7 32-36 g/dl Platelet Count 216 130-400 K/uL Mean Platelet Volume 9.2 7.4-10.4 fL Neutrophils (%) (Auto) 77.5 % Lymphocytes (%) (Auto) 10.1 % Monocytes (%) (Auto) 9.0 % Eosinophils (%) (Auto) 2.9 % Basophils (%) (Auto) 0.2 % Neutrophils # (Auto) 7.40 1.4-6.5 K/uL Lymphocytes # (Auto) 0.97 1.2-3.4 K/uL Monocytes # (Auto) 0.86 0.11-0.59 K/uL Eosinophils # (Auto) 0.28 0-0.5 K/uL Basophils # (Auto) 0.02 0-0.2 K/uL RDW Standard Deviation 80.2 36.4-46.3 fL RDW Coefficient of Variation 21.1 11.5-14.5 % Immature Granulocyte % (Auto) 0.3 % Immature Granulocyte # (Auto) 0.03 0.00-0.02 K/uL Nucleated RBC Absolute Count (auto) 0.11 0-0 K/uL Nucleated Red Blood Cells % 1.1 % Toxic Vacuolation 1+ Polychromasia 1+ Hypochromasia PRESENT Basophilic Stippling 1+ Anisocytosis PRESENT Macrocytosis PRESENT Prothrombin Time 10.7 9.0-12.0 SECONDS Prothromb Time International Ratio 1.0 0.9-1.1 Activated Partial Thromboplast Time 27.3 21.0-31.0 SECONDS Partial Thromboplastin Ratio 1.1 Sodium Level 135 136-145 mmol/L Potassium Level 4.6 3.5-5.1 mmol/L Chloride Level 99 98-107 mmol/L Carbon Dioxide Level 24 21-32 mmol/L Anion Gap 12.0 3-11 mmol/L Blood Urea Nitrogen 35 7-18 mg/dl Creatinine 9.30 0.60-1.20 mg/dl Est Creatinine Clear Calc Drug Dose 9.0 ml/min Estimated GFR () 4.7 Estimated GFR (Non- 4.0 BUN/Creatinine Ratio 3.8 10-20 Random Glucose 137 70-99 mg/dl Calcium Level 8.7 8.5-10.1 mg/dl Magnesium Level 2.7 1.8-2.4 mg/dl Total Bilirubin 0.3 0.2-1 mg/dl Aspartate Amino Transf (AST/SGOT) 17 15-37 U/L Alanine Aminotransferase (ALT/SGPT) 10 12-78 U/L Alkaline Phosphatase 141 45-117 U/L Total Protein 7.7 6.4-8.2 gm/dl Albumin 2.4 3.4-5.0 gm/dl Globulin 5.3 2.5-4.0 gm/dl Albumin/Globulin Ratio 0.5 0.9-2 Bedside Glucose 116 70-90 mg/dl Microbiology Results 12/03/16 Blood Culture, Received Pending 12/03/16 Blood Culture, Received Pending Diagnostic Radiology SINGLE VIEW CHEST CLINICAL HISTORY: Atypical chest pain. FINDINGS: An AP, portable, upright chest radiograph is compared to study dated 11/13/2016. Correlation is made with chest CT dated 02/13/2016. The examination is degraded by portable technique, large body habitus, and patient rotation. Evaluation of the lung bases is significantly degraded by overlying soft tissue. A right internal jugular central venous catheter is unchanged in position. The heart appears mildly enlarged. There is prominence of the central pulmonary vasculature. Small pleural effusions are questioned. Apparent increase in density at the lung bases is likely related to overlying soft tissue. No pneumothorax is seen. The skeletal structures are osteopenic. The bony thorax is grossly intact. IMPRESSION: 1. Cardiomegaly with prominence of the pulmonary vasculature. Cortical clinically for evidence of mild congestive failure. 2. Question small pleural effusions. Evaluation of the lung bases is degraded by overlying soft tissue. Impression Assessment and Plan pt is a 61 yo F with severe neck pain radiating to top of head, bilateral upper extremity edema, bilateral lower extremity cellulitis/swelling, loss of appetite. neck pain - likely musculoskeletal; manipulation by Dr. Lockhart, topical Voltarin gel QID , continue [place] hand edema - anasarca. given hx of renal disease, nephrology to follow; consider treatment with albumin cellulitis - continue doxycycline loss of appetite/malnutrition - dietary consult, monitor CHF - Monitor intake and output, daily weights T2DM - Continue Lantus and Novolog GERD - Continue pantoprazole and famotidine COPD - Continue DuoNeb PRN - Continue tiotropium DVT prophylaxis - SQ heparin 5,000 units Q12H Level of Care Telemetry Advanced Directives Existing Living Will: Yes Existing Power of Shoe Sprayer: Yes DVT Prophylaxis unfractionated heparin SQ (5,000 units Q12H)
--- NOTE | 2016-12-03 22:08 | History and Physical ---
History & Physical Date & Time of Service: Dec 03, 2016 at 15:26 Chief Complaint: Head Painb/Abd Pain/Hip Pain Primary Care Physician: Emily Isaac C.R.N.P History of Present Illness Source: patient, partner, clinic records, hospital records Mrs. Gaytan is a 61 year old female with significant past medical history of end- stage renal disease on dialysis, bilateral lower extremity cellulitis, morbid obesity, chronic respiratory failure, diastolic CHF, COPD, type 2 diabetes, presents to the ER with neck pain and headache. The neck pain started after her AV fistula repair on 19 November 2016 during her last hospital admission. She received trigger point injections on 27 November which helped with her shoulder pain however her neck pain continued to get progressively worse after transferring to [facility]. She has been receiving Lincoln 5/325 x2 every 4 hours which helps initially but then her headache returns at around 2 hours. She was tried on percocet but this made her nauseous. Her pain is 8/10 at its worse and as such she has not been eating properly. During her last admission she was having Dilaudid 1mg IV Q8H. Past Medical/Surgical History Medical Problems: (1) Cellulitis of abdominal wall Status: Chronic (2) Cervical Disc Degen Status: Chronic (3) CHF (congestive heart failure) Status: Chronic (4) COPD (chronic obstructive pulmonary disease) Status: Chronic (5) Diab Mariama Wo Compl, Type Ii Or Unspec Type, Uncontrolled Status: Chronic (6) Diabetes Status: Chronic (7) Ovarian Cyst Nec/Nos Status: Chronic (8) Pulmonary Collapse Status: Resolved (9) Sciatica Status: Chronic Family History Cancer Diabetes mellitus Gallbladder disease Heart disease Lung disease Social History Smoking Status: Former Smoker (quit 7 years ago) Alcohol Use: none Drug Use: none Marital Status: Housing status: lives with family Occupational Status: unemployed Immunizations History of Influenza Vaccine: Yes Influenza Vaccine Date: Apr 15, 2012 History of Tetanus Vaccine?: No History of Pneumococcal: Yes Pneumococcal Date: Jan 13, 2013 History of Hepatitis B Vaccine: No Multi-Drug Resistant Organisms History of MDRO: No Allergies Coded Allergies: Daptomycin (Verified Allergy, Intermediate, HIVES/ITCHING, 12/03/16) itching Sulfamethoxazole w/Trimethoprim (Verified Allergy, Intermediate, RASH, 12/03/16) Iodine (Verified Allergy, Unknown, 12/03/16) Shellfish (Verified Allergy, Unknown, 12/03/16) Codeine (Verified Adverse Reaction, Mild, NAUSEA, 12/03/16) has tolerated morphine Uncoded Allergies: kristina wipes (Allergy, Severe, red rash, excoriation, 09/19/16) comfort baths (Adverse Reaction, Severe, rash, "breaks out all over", ) Home Medications Scheduled Allopurinol (Zyloprim), 100 MG PO DAILY Ascorbic Acid (Vitamin C 500 mg), 1,000 MG PO DAILY Atorvastatin (Lipitor), 40 MG PO DAILY B-Complex W/ C & Folic Acid (Renal), 1 CAP PO QAM Calcium Acetate (Phosphate Bin (Phoslo 667 Mg), 667 MG PO ACHS Cholecalciferol (Vitamin D3), 1,000 INTER.UNIT PO DAILY Doxycycline Monohydrate (Monodox), 100 MG PO DAILY Famotidine (Famotidine), 20 MG PO DAILY Fluticasone Prop/Salmeterol (Advair Diskus 500/50 60 Dose), 1 PUFF INH BID Home O2 Therapy (Oxygen), 3 LITERS NA CONTINOUS Insulin Aspart (Novolog Flexpen), 50 UNITS SQ W/BREAKFAST Insulin Aspart (Novolog Flexpen), 50 UNITS SQ W/LUNCH Insulin Aspart (Novolog Flexpen), 90 UNITS SQ W/SUPPER Insulin Glargine (Toujeo Solostar), 70 UNITS SC TID Lidocaine (Lidocaine), 1 PATCH TD QAM Metoprolol Succ (Toprol Xl) (Toprol-Xl ), 150 MG PO UD Multiple Vitamins W/ Minerals (One Daily For Women), 1 TAB PO DAILY Oxycodone HCl (Oxycodone HCl), 10 MG PO Q4H Pantoprazole (Protonix), 40 MG PO DAILY Pregabalin (Lyrica), 50 MG PO DAILY Pregabalin (Lyrica), 50 MG PO DAILY Pyridoxine (Vitamin B6), 200 MG PO DAILY Silver Sulfadiazine (Silvadene), 1 APPLN TOP DAILY Tiotropium Agate (Spiriva Handihaler), 1 CAP INH DAILY Vitamin E (Vitamin E), 800 INTER.UNIT PO DAILY Scheduled PRN Insulin Aspart (Novolog Flexpen), 40 UNITS SQ HS PRN for Late Night Snack Ipratropium-Albuterol (Duoneb), 1 TREATMENT INH Q6H PRN for SOB/Wheezing Review of Systems Constitutional: + fatigue, No fever, No chills ENT: No hearing loss Respiratory: + problem reported (dry mouth) Cardiovascular: No chest pain, No orthopnea Integumentary: + rash Physical Exam Vital Signs Date Time Temp Pulse Resp B/P (MAP) Pulse Ox O2 Delivery O2 Flow Rate FiO2 12/03/16 14:58 99 20 71/47 93 Nasal Cannula 2.0 12/03/16 14:53 101 12/03/16 14:42 98 20 82/36 97 Nasal Cannula 3.0 12/03/16 13:06 96 16 80/43 90 Nasal Cannula 3.0 12/03/16 12:33 95 22 86 12/03/16 12:31 91 16 61/38 12/03/16 12:29 94 16 92 12/03/16 12:27 94 18 91 12/03/16 12:25 91 25 91 12/03/16 12:23 92 18 93 12/03/16 12:21 91 20 92 12/03/16 12:19 98 21 92 12/03/16 12:17 97 15 92 12/03/16 12:15 92 21 94 12/03/16 12:13 92 17 100/44 93 12/03/16 12:11 91 25 91 12/03/16 12:09 91 27 90 12/03/16 12:07 96 19 97 12/03/16 12:05 92 20 97 12/03/16 12:03 93 Nasal Cannula 2.0 12/03/16 12:03 93 Nasal Cannula 2.0 12/03/16 12:03 93 20 95 12/03/16 12:01 85 22 77/36 83 12/03/16 12:00 95 12/03/16 11:53 36.5 94 22 85/54 86 Room Air 12/03/16 11:42 85/54 General Appearance: + moderate distress (from neck pain), + obese Eyes: PERRL, EOMI ENT: + pertinent finding (dry mucus membranes) Neck: supple (unable to assess JVD due to neck circumference) Respiratory/Chest: no respiratory distress, no accessory muscle use, + decreased breath sounds (poor inspiratory effort b/l, no crackles or wheezing) Cardiovascular: regular rate, rhythm, no murmur, normal peripheral pulses Abdomen/GI: normal bowel sounds, non tender, soft Extremities/Musculoskelatal: + pedal edema (with overlying erythematous changes , 3+ to thighs equal b/l), + pertinent finding (pain on palpation on anterior shins b/l) Neurologic/Psych: 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 (grossly intact), no motor/sensory deficits (moving all 4 extremities, glove and stocking nerve numbness), alert, oriented x 3 Skin: + pertinent finding (bilateral erythema and swelling of lower legs chronically but reports worse than usual) Diagnostics Laboratory Results Results Past 24 Hours Test 12/03/16 12:52 12/03/16 12:53 Range/Units Bedside Lactic Acid Venous 0.93 0.90-1.70 mmol/L White Blood Count 9.56 4.8-10.8 K/uL Red Blood Count 2.93 4.2-5.4 M/uL Hemoglobin 9.3 12.0-16.0 g/dL Hematocrit 30.3 37-47 % Mean Corpuscular Volume 103.4 80-100 fL Mean Corpuscular Hemoglobin 31.7 25-34 pg Mean Corpuscular Hemoglobin Concent 30.7 32-36 g/dl Platelet Count 216 130-400 K/uL Mean Platelet Volume 9.2 7.4-10.4 fL Neutrophils (%) (Auto) 77.5 % Lymphocytes (%) (Auto) 10.1 % Monocytes (%) (Auto) 9.0 % Eosinophils (%) (Auto) 2.9 % Basophils (%) (Auto) 0.2 % Neutrophils # (Auto) 7.40 1.4-6.5 K/uL Lymphocytes # (Auto) 0.97 1.2-3.4 K/uL Monocytes # (Auto) 0.86 0.11-0.59 K/uL Eosinophils # (Auto) 0.28 0-0.5 K/uL Basophils # (Auto) 0.02 0-0.2 K/uL RDW Standard Deviation 80.2 36.4-46.3 fL RDW Coefficient of Variation 21.1 11.5-14.5 % Immature Granulocyte % (Auto) 0.3 % Immature Granulocyte # (Auto) 0.03 0.00-0.02 K/uL Nucleated RBC Absolute Count (auto) 0.11 0-0 K/uL Nucleated Red Blood Cells % 1.1 % Toxic Vacuolation 1+ Polychromasia 1+ Hypochromasia PRESENT Basophilic Stippling 1+ Anisocytosis PRESENT Macrocytosis PRESENT Prothrombin Time 10.7 9.0-12.0 SECONDS Prothromb Time International Ratio 1.0 0.9-1.1 Activated Partial Thromboplast Time 27.3 21.0-31.0 SECONDS Partial Thromboplastin Ratio 1.1 Sodium Level 135 136-145 mmol/L Potassium Level 4.6 3.5-5.1 mmol/L Chloride Level 99 98-107 mmol/L Carbon Dioxide Level 24 21-32 mmol/L Anion Gap 12.0 3-11 mmol/L Blood Urea Nitrogen 35 7-18 mg/dl Creatinine 9.30 0.60-1.20 mg/dl Est Creatinine Clear Calc Drug Dose 9.0 ml/min Estimated GFR () 4.7 Estimated GFR (Non- 4.0 BUN/Creatinine Ratio 3.8 10-20 Random Glucose 137 70-99 mg/dl Calcium Level 8.7 8.5-10.1 mg/dl Magnesium Level 2.7 1.8-2.4 mg/dl Total Bilirubin 0.3 0.2-1 mg/dl Aspartate Amino Transf (AST/SGOT) 17 15-37 U/L Alanine Aminotransferase (ALT/SGPT) 10 12-78 U/L Alkaline Phosphatase 141 45-117 U/L Total Protein 7.7 6.4-8.2 gm/dl Albumin 2.4 3.4-5.0 gm/dl Globulin 5.3 2.5-4.0 gm/dl Albumin/Globulin Ratio 0.5 0.9-2 Microbiology Results 12/03/16 Blood Culture, Received Pending 12/03/16 Blood Culture, Received Pending Diagnostic Radiology SINGLE VIEW CHEST CLINICAL HISTORY: Atypical chest pain. FINDINGS: An AP, portable, upright chest radiograph is compared to study dated 11/13/2016. Correlation is made with chest CT dated 02/13/2016. The examination is degraded by portable technique, large body habitus, and patient rotation. Evaluation of the lung bases is significantly degraded by overlying soft tissue. A right internal jugular central venous catheter is unchanged in position. The heart appears mildly enlarged. There is prominence of the central pulmonary vasculature. Small pleural effusions are questioned. Apparent increase in density at the lung bases is likely related to overlying soft tissue. No pneumothorax is seen. The skeletal structures are osteopenic. The bony thorax is grossly intact. IMPRESSION: 1. Cardiomegaly with prominence of the pulmonary vasculature. Cortical clinically for evidence of mild congestive failure. 2. Question small pleural effusions. Evaluation of the lung bases is degraded by overlying soft tissue. Electronically signed by: Ford Mejia M.D. 12/03/2016 1:12 PM Dictated Date/Time: 12/03/2016 1:[address] SCAN OF THE BRAIN WITHOUT IV CONTRAST CLINICAL HISTORY: Headache. COMPARISON STUDY: CT of the brain dated 11/11/2016. TECHNIQUE: Unenhanced axial CT scan of the brain is performed from the vertex to the skull base. A dose lowering technique was utilized adhering to the principles of ALARA. CT DOSE: 614.27 mGy.cm FINDINGS: Brain parenchyma: There is minimal periventricular microangiopathic disease. There is no hemorrhage, mass effect, or evidence of acute territorial ischemia by CT criteria. Muñiz-white matter is preserved. No extra-axial fluid collection is seen. Ventricles, sulci, cisterns: Normal in configuration. Intracranial vasculature: There is mild atherosclerotic calcification of the cavernous carotid arteries. Calvarium: Unremarkable. Sinuses and mastoids: The visualized paranasal sinuses are clear. The mastoid air cells are well pneumatized. Orbits: The bony orbits are grossly intact. IMPRESSION: There is no hemorrhage, mass effect, or evidence of acute territorial ischemia by CT criteria. No significant change from 11/11/2016. Electronically signed by: Ford Mejia M.D. 12/03/2016 1:38 PM Dictated Date/Time: 12/03/2016 1:35 PM EKG Normal sinus rhythm Low voltage QRS Borderline ECG When compared with ECG of 11-NOV-2016 11:13 No significant change was found Impression Assessment and Plan 61 year old female with multiple co-morbidities presents with neck pain worse on palpation and headaches Neck spasm / headache - CT head no acute pathology - Voltaren gel QID - will continue opiates for - Manipulation performed by Dr Chantelle BENEDICT Chronic pain - pregabalin + Bilateral hand edema - since AV fistula surgery on 19 November - unclear etiology at present but has generalized anasarca therefore suspect due to positioning during surgery Hypotension - manual BP QS as higher than automatic, intermittent small bolus of NSS if MAP < 65 or patient symptomatic End stage renal disease on dialysis - Consult nephrology - due to low BP dialysis delayed to tomorrow Cellulitis - continue doxycycline Anuria - likely from ESRD - bladder scan to check for retention - I&Os Malnutrition - consult dietary Diastolic heart failure - I&Os, daily weights Type 2 diabetes - Lantus 85 units BID - Novolog 5 correction, 2 carb - ACHS BSG - HbA1B 5.9 (11/12/16) GERD - Continue famotidine and pantoprazole COPD - without current exacerbation - continue tiotropium - duonebs PRN VTE Prophylaxis - heparin 5000 units SQ Q12H Code - Full Disposition - observation status on telemetry Resident Physician Supervision Note: I interviewed and examined the patient. Discussed with Dr. Overton and agree with findings and plan as documented in the note. Any exceptions or clarifications are listed here: None Documented By: Michael Lockhart see my addendum on separate note, thanks Level of Care Telemetry Resuscitation Status FULL RESUSCITATION VTE Prophylaxis VTE Risk Assessment Done? Y/N: Yes Risk Level: Moderate Given or contraindicated: Unfractionated heparin SQ Additional Copies To Emily Isaac, C.R.N.P Resident Tracking Resident Involvement: Resident Care Provided Care Provided: Adult Hospital Medicine
[2016-12-04] VITALS (28 sets, daily range): BP systolic 67–118; BP diastolic 33–81; PULSE 84–101; TEMP 36.4–37.3; O2SAT 90–98
[2016-12-04] MEDS: CALCIUM ACETATE 667MG GELCAP PO SCH ×4 (08:00→21:00)
[2016-12-04] MEDS: INSULIN ASPART 100 UNITS/ML 3 ML PEN SC SCH ×4 (08:00→21:00)
--- NOTE | 2016-12-04 08:15 | Family Medicine Progress Note ---
Progress Note Date of Service Dec 04, 2016. Subjective Pt evaluation today including: conversation w/ patient, physical exam, chart review, lab review The patient was seen and examined at bedside. Tele shows sinus rhythm in the 80s-90s. At night saturations dipped in the 80s - pt wears a CPAP. Patient is resting comfortably in bed. Eating and urinating well. Complaining of resolving neck pain. Still has generalized anasarca. OT came by but she told them she was still digesting her food. Plan of care was described to the patient and all questions were answered. At 6:45 PM I got a message to call the . The says that Jazmin's chief concern is the pain between her legs. We are already applying anti fungal ointments and barrier creams and wound care is on board. Sometimes he said a pillow between Jazmin's legs helps with the pain. Constitutional: No fever, No chills, No sweats Eyes: No worsening of vision Respiratory: No cough, No sputum, No wheezing, No shortness of breath Cardiovascular: No chest pain Abdomen: No pain, No nausea, No vomiting, No diarrhea, No constipation Musculoskeletal: No joint pain Female : No dysuria Objective Physical Exam General Appearance: WD/WN, no apparent distress, + obese (morbidly obese) Eyes: PERRL, EOMI ENT: + pertinent finding (patient has a large neck) Respiratory/Chest: chest non-tender, lungs clear, normal breath sounds, no respiratory distress, no accessory muscle use Cardiovascular: regular rate, rhythm, no edema, no gallop, no JVD, no murmur Abdomen: normal bowel sounds, non tender, soft, no organomegaly, no pulsatile mass Extremities: non-tender, normal inspection, no pedal edema, no calf tenderness , + pertinent finding (pt is unable to stand or ambulate under her own weight) 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: 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 Neck spasm / headache - CT head no acute pathology - Voltaren gel QID - Eagle 1 tab Q4H PRN. - Manipulation performed by Dr Chantelle BENEDICT Chronic pain - c/w Lyrica 50mg daily. Bilateral hand edema - since AV fistula surgery on 19 November - Nephrology on board. Irritated inguinal folds, likely fungal - Nystatin Powder - Will place pillow between legs as per husbands request. Hypotension - manual BP QS as higher than automatic, intermittent small bolus of NSS if MAP < 65 or patient symptomatic End stage renal disease on dialysis - Dialysis today. Cellulitis -Increase Doxycycline to 100mg BID, Day #2 Anuria - likely from ESRD - bladder scan to check for retention - I&Os Diastolic heart failure - I&Os, daily weights - Per nephro, limit fluids to 1200 per day, - I will also limit calories to less than 2200 per day. Type 2 diabetes - Lantus 85 units BID - Novolog 5 correction, 2 carb - ACHS BSG - HbA1B 5.9 (11/12/16) GERD - Continue famotidine and pantoprazole COPD - without current exacerbation - continue tiotropium - duonebs BID VTE Prophylaxis - heparin 5000 units SQ Q12H Disposition - Admit FULL CODE Resident Physician Supervision Note: I interviewed and examined the patient. Discussed with Dr. Chauhan and agree with findings and plan as documented in the note. Any exceptions or clarifications are listed here: None Documented By: Michael Lockhart neck pain improved, not totally better but improving swelling about the same vitals noted nad breathing unlabored ost/msk - b/l R>L Cspine paraspinals high tone/tender/decreased ROM - but better than yesterday - counterstrain, inhibitory pressure, unwinding - improved. pt tolerated well neck pain - MSK - improving anasarca - ongoing HD. ?albumin venous stasis changes w concomitant cellulitis - doxy dispo - uncertain. i harbor concerns that she may be at / near a new and declining baseline but discussions on goals of care and expectations are likely to be met with significant resistance w family. Resident Involvement: Resident Care Provided Care Provided: Adult [facility]
[2016-12-04 08:24] LABS: BASO % 0.2 %; BASO ABS # 0.02 K/uL (0-0.2); EOS % 2.1 %; HEMATOCRIT 28.1 % (37-47); IG% 0.4 %; LYMPH % 13.8 %; LYMPH ABS # 1.11 K/uL (1.2-3.4); MEAN CELL VOLUME 103.3 fL (80-100); MEAN CORPUSCULAR HEMOGLOBIN 31.3 pg (25-34); MEAN CORPUSCULAR HGB CONC 30.2 g/dl (32-36); MEAN PLATELET VOLUME 9.3 fL (7.4-10.4); MONO % 10.7 %; NEUT % 72.8 %; PLATELET COUNT 224 K/uL (130-400); RED BLOOD COUNT 2.72 M/uL (4.2-5.4); WHITE BLOOD COUNT 8.06 K/uL (4.8-10.8)
[2016-12-04] MEDS ORDERED: EPOETIN ALFA 10,000 UNITS/ML VIAL IV. ONE (08:45)
[2016-12-04 08:51] LABS: BUN/CREATININE RATIO 4.1 (10-20); CALCIUM 8.4 mg/dl (8.5-10.1); POTASSIUM 4.4 mmol/L (3.5-5.1)
[2016-12-04 08:52] LABS: ANISOCYTOSIS PRESENT; COMPLETE YES; POIKILOCYTOSIS PRESENT
[2016-12-04] MEDS: LIDODERM (LIDOCAINE) PATCH 5% TD SCH (09:00)
[2016-12-04] MEDS ORDERED: NEPHROCAPS PO SCH (09:00)
[2016-12-04] MEDS ORDERED: DOXYCYCLINE HYCLATE 100 MG CAP PO SCH (09:00)
[2016-12-04] MEDS ORDERED: HEPARIN SOD (PORCINE) 1000 UNIT/ML 10 ML VIAL IV SCH (09:00)
[2016-12-04] MEDS ORDERED: ALBUMIN HUMAN 25% 12.5 GM/50 ML VIAL IV PRN (09:00)
[2016-12-04] MEDS ORDERED: EPOETIN ALFA INJ 12,000 UNITS in SYRINGE 0 ML IV. SCH (09:00)
--- NOTE | 2016-12-04 09:42 | Nephrology Consultation ---
Nephrology Consultation Date of Consultation: Dec 04, 2016. Attending Physician: Dr Lockhart Requesting Physician: Dr Lockhart Reason for Consultation: ESRD on HD History of Present Illness 61 year old female w/ ESRD d/t cardiorenal syndrome sent from [facility] rehab yesterday d/t concerns about unexplained hypotension and uncontrolled headache/ neck pain and admitted for mgt of lower blood pressures, pain control, and concern about worsening LE cellulitis. Her SBP in ER yesterday were in 60-70s. At [facility] on 12/01, she had dialysis but no fluid was removed d/t lower blood pressures; her regular dialysis day would have been yesterday but tx not attempted d/t lower bp. Dialysis access = tunnelled dialysis catheter. Other PMH includes class 3 obesity (BMI 52), obesity hypoventilation syndrome w/ multiple hospitalizations for hypercarbia, COPD, DM, chronic lymphedema and recurrent LE cellulitis, MGUS. Recently admitted here from 11/11-11/27 for acute on chronic hypercarbic respiratory failure with BLE cellulitis. She underwent AVF revision here 11/19. There had been some concerns about redness over avf site on 12/01 and pt received 1 gm vancomycin empirically. She recently changed over to our group [place] [facility]. States she feels a bit better today w/ no uncontrolled pain at time of my eval but does c/o worsening generalized edema, constipation, not voiding past week. I did explain to her that sometimes dialysis pts stop voiding after being on tx for several mos. In the ER yesterday, she has 500 mL x 2 doses NS and a gram each of vancomycin and rocephin IV. Past Medical/Surgical History Medical/ Surgical History -ESRD on HD via [facility], most recently MWF; 06/2016 [facility] placement; 08/19/[address] hTapa -HTN -DM -class 3 Obesity (BMI 56) -COPD - on chronic O2 at 3 L/min ATC -obesity hypoventilation syndrome -- followed by pulmonology and maintained on intermittent BIPAP -lung nodule - stable over several years of observation by pulmonology -osteoarthritis -chronic lower extremity edema due to obesity hypoventilation syndrome/ pulmonary hypertension. Managed with PT for lymphedema, diuretics and hemodialysis. Echocardiogram October 2014 revealed LVEF 55 - 60%, mild LVH, RVSP 45, mild RV dilation and moderate TR -serum monoclonal light chain - monitored by Dr. Delong -past hypercalcemia Family History Cancer Diabetes mellitus Gallbladder disease Heart disease Lung disease Social History Smoking Status: Former Smoker (quit 7 years ago) Drug Use: none Marital Status: Housing Status: lives with family Occupation Status: unemployed Allergies Coded Allergies: Daptomycin (Verified Allergy, Intermediate, HIVES/ITCHING, 12/03/16) itching Sulfamethoxazole w/Trimethoprim (Verified Allergy, Intermediate, RASH, 12/03/16) Iodine (Verified Allergy, Unknown, 12/03/16) Shellfish (Verified Allergy, Unknown, 12/03/16) Codeine (Verified Adverse Reaction, Mild, NAUSEA, 12/03/16) has tolerated morphine Uncoded Allergies: kristina wipes (Allergy, Severe, red rash, excoriation, 09/19/16) comfort baths (Adverse Reaction, Severe, rash, "breaks out all over", ) Medications Current Inpatient Medications Medications (Trade) Dose Ordered Sig/Duyen Route Start Time Stop Time Status Last Admin Dose Admin Miscellaneous (Iv Fluids Completed) 1 ea PRN PRN N/A 12/03/16 15:30 12/03/17 15:29 Heparin Sodium (Porcine) (Heparin Sq 5000 Unit/0.5ml) 5,000 unit Q12 SQ 12/03/16 21:00 01/02/17 20:59 12/03/16 21:27 5,000 UNIT Acetaminophen (Tylenol Tab) 650 mg Q4H PRN PO 12/03/16 15:45 01/02/17 15:44 Ondansetron HCl (Zofran Inj) 4 mg Q6H PRN IV 12/03/16 15:45 01/02/17 15:44 12/03/16 17:59 4 MG Nitroglycerin (Nitrostat Tab) 0.4 mg UD PRN SL 12/03/16 15:45 01/02/17 15:44 Allopurinol (Zyloprim Tab) 100 mg DAILY PO 12/04/16 09:00 01/03/17 08:59 Atorvastatin Calcium (Lipitor Tab) 40 mg DAILY PO 12/04/16 09:00 01/03/17 08:59 Vitamin B Complex/ Vit C/Folic Acid (Nephrocaps) 1 cap QAM PO 12/04/16 09:00 01/03/17 08:59 Calcium Acetate (Phoslo Cap) 667 mg ACHS PO 12/03/16 21:00 01/02/17 20:59 12/03/16 20:59 667 MG Cholecalciferol (Vitamin D Tab) 1,000 inter.unit DAILY PO 12/04/16 09:00 01/03/17 08:59 Doxycycline Hyclate (Vibramycin Cap) 100 mg DAILY PO 12/04/16 09:00 12/14/16 08:59 Famotidine (Pepcid Tab) 20 mg DAILY PO 12/04/16 09:00 01/03/17 08:59 Salmeterol Xinafoate/ Fluticasone (Advair Diskus 500/50 Inh) 1 puff BID INH 12/03/16 21:00 01/02/17 20:59 12/03/16 20:55 1 PUFF Lidocaine (Lidoderm Patch 5%) 1 patch QAM TD 12/04/16 09:00 01/03/17 08:59 Multivitamins/ Minerals (Multivitamin W/ Minerals Tab) 1 tab DAILY PO 12/04/16 09:00 01/03/17 08:59 Pantoprazole Sodium (Protonix Tab) 40 mg DAILY PO 12/04/16 09:00 01/03/17 08:59 Pregabalin (Lyrica Cap) 50 mg DAILY PO 12/04/16 09:00 01/03/17 08:59 Pyridoxine HCl (Vitamin B-6 Tab) 200 mg DAILY PO 12/04/16 09:00 01/03/17 08:59 Silver Sulfadiazine (Silvadene 1% Crm 50GM Jar) 1 appln DAILY EXT 12/04/16 09:00 01/03/17 08:59 Tiotropium [place] (Spiriva Handihaler Inhaler) 1 puff DAILY INH 12/04/16 09:00 01/03/17 08:59 Miscellaneous (Remove Lidoderm Patch) 1 ea DAILY@21 N/A 12/03/16 21:00 01/02/17 20:59 Ascorbic Acid (Vitamin C Tab) 1,000 mg QAM PO 12/04/16 09:00 01/03/17 08:59 Insulin Glargine (Lantus Vial) 85 units BID SC 12/03/16 21:00 01/02/17 20:59 12/03/16 21:10 85 UNITS Insulin Aspart (novoLOG ASPART) SLIDING SCALE If C... ACHS SC 12/03/16 21:00 01/02/17 20:59 Glucose (Glucose 40% Gel) 15-30 GRAMS 15 GRAMS... UD PRN PO 12/03/16 17:30 01/02/17 17:29 Glucose (Glucose Chew Tab) 4-8 Tablets 4 Tabl... UD PRN PO 12/03/16 17:30 01/02/17 17:29 Dextrose (Dextrose 50% 50ML Syringe) 25-50ML OF 50% DW IV FOR... UD PRN IV 12/03/16 17:30 01/02/17 17:29 Glucagon (Glucagon Inj) 1 mg UD PRN SQ 12/03/16 17:30 01/02/17 17:29 Diclofenac Sodium (Voltaren 1% Top Gel) 1 appln QID EXT 12/03/16 21:00 01/02/17 20:59 12/03/16 20:56 1 APPLN Acetaminophen/ Hydrocodone Bitart (Victor 10/325 Tab) 1 tab Q4H PRN PO 12/03/16 18:00 12/17/16 17:59 12/03/16 23:57 1 TAB Hydromorphone HCl (Dilaudid Tab) 2 mg Q4H PRN PO 12/03/16 18:00 12/17/16 17:59 Home Meds and Scripts Medications Dose Route/Sig Max Daily Dose Days Date Category Dose Instructions Lidocaine 1 Patch Tdsy 1 Patch TD QAM 14 11/27/16 Rx Lyrica (Pregabalin) 50 Mg Cap 50 Mg PO DAILY 30 11/27/16 Rx Take one capsule daily Oxycodone HCl 5 Mg Tab 10 Mg PO Q4H 30 11/27/16 Rx Take 2 tablets PO Q4H for severe pain Take 1 tablet PO Q4H FOR moderate pain Lyrica (Pregabalin) 50 Mg Cap 50 Mg PO DAILY 30 11/20/16 Rx Monodox (Doxycycline Monohydrate) 100 Mg Cap 100 Mg PO DAILY 11/11/16 Reported Silvadene (Silver Sulfadiazine) 1 % Cre 1 Appln TOP DAILY 7 11/11/16 Reported Phoslo 667 Mg (Calcium Acetate (Phosphate Bin) 667 Mg Cap 667 Mg PO ACHS 09/16/16 Reported Renal (B-Complex W/ C & Folic Acid) 1 Cap Cap 1 Cap PO QAM 30 08/25/16 Rx Famotidine 20 Mg Tab 20 Mg PO DAILY 30 08/25/16 Rx Protonix (Pantoprazole Sodium) 40 Mg Tab 40 Mg PO DAILY 08/13/16 Reported Oxygen Gas 3 Liters NA CONTINOUS 08/13/16 Reported Toujeo Solostar (Insulin Glargine) 300 Unit/Ml Inj 70 Units SC TID 08/13/16 Reported ADMINISTER WITH BREAKFAST, EVENING MEAL AND AT BEDTIME Duoneb (Ipratropium-Albuterol) 3 Ml Nebu 1 Treatment INH Q6H PRN 07/10/16 Reported Vitamin E 400 Unit Tab 800 Inter.unit PO DAILY 05/05/16 Reported Vitamin D3 (Cholecalciferol) 1,000 Unit Tab 1,000 Inter.unit PO DAILY 05/05/16 Reported Spiriva Handihaler (Tiotropium [place]) 30 Puff/540 Mcg Aerp 1 Cap INH DAILY 05/05/16 Reported One Daily For Women (Multiple Vitamins W/ Minerals) 1 Tab Tab 1 Tab PO DAILY 05/05/16 Reported Lipitor (Atorvastatin Calcium) 40 Mg Tab 40 Mg PO DAILY 05/05/16 Reported Advair Diskus 500/50 60 Dose (Fluticasone Prop/Salmeterol) 1 Ea Aerp 1 Puff INH BID 05/05/16 Reported Novolog Flexpen (Insulin Aspart) 100 Units/Ml Inj 40 Units SQ HS PRN 02/25/16 Reported Toprol-Xl (Metoprolol Succinate) 100 Mg Tabcr 150 Mg PO UD 02/26/14 Reported 150MG DAILY ON NON-DIALYSIS DAYS. NONE ON DIALYSIS DAYS ( THURSDAY, THURSDAY, THURSDAY) Novolog Flexpen (Insulin Aspart) 100 Units/Ml Inj 90 Units SQ W/SUPPER 09/28/13 Reported Novolog Flexpen (Insulin Aspart) 100 Units/Ml Inj 50 Units SQ W/LUNCH 09/28/13 Reported Novolog Flexpen (Insulin Aspart) 100 Units/Ml Inj 50 Units SQ W/BREAKFAST 09/28/13 Reported Zyloprim (Allopurinol) 100 Mg Tab 100 Mg PO DAILY 09/28/13 Reported Vitamin C 500 mg (Ascorbic Acid) 1 Chw Chw 1,000 Mg PO DAILY 04/15/13 Reported Vitamin B6 (Pyridoxine HCl) 100 Mg Tab 200 Mg PO DAILY 04/15/13 Reported Review of Systems Constitutional: + weakness, + fatigue, No fever, No chills, No weight loss Eyes: No worsening of vision ENT: No hearing loss Respiratory: No cough, No shortness of breath (no change in chronic dypsnea) Cardiac: + edema (worsening), No chest pain, No palpitations Abdomen: + constipation, No pain, No nausea, No vomiting, No diarrhea Musculoskeletal: + see HPI, + joint pain, No muscle pain Female : + see HPI Neuro: + weakness Psych: No depression symptoms, No anxiety Heme: No abnormal bleeding/bruising Endo: + fatigue Skin: + new/changing skin lesions (report that BLE cellulitis is worsening), No rash Physical Exam Date Time Temp Pulse Resp B/P (MAP) Pulse Ox O2 Delivery O2 Flow Rate FiO2 12/04/16 08:18 37.3 91 24 90/65 (73) 98 12/04/16 04:15 36.7 97 20 104/56 (72) 90 BiPAP 12/04/16 04:00 BiPAP 12/04/16 00:36 36.8 101 20 110/54 (72) 90 CPAP 12/03/16 23:59 BiPAP 12/03/16 20:00 93 Nasal Cannula 2.0 12/03/16 19:32 105 26 101/53 (69) 91 2.0 12/03/16 16:12 36.7 98 22 84/54 (64) 93 Nasal Cannula 2.0 12/03/16 15:59 36.5 99 20 103/49 89 12/03/16 15:35 Nasal Cannula 2.0 12/03/16 15:31 99 20 103/49 89 Nasal Cannula 2.0 12/03/16 14:58 99 20 71/47 93 Nasal Cannula 2.0 12/03/16 14:53 101 12/03/16 14:42 98 20 82/36 97 Nasal Cannula 3.0 12/03/16 13:06 96 16 80/43 90 Nasal Cannula 3.0 12/03/16 12:33 95 22 86 12/03/16 12:31 91 16 61/38 12/03/16 12:29 94 16 92 12/03/16 12:27 94 18 91 12/03/16 12:25 91 25 91 12/03/16 12:23 92 18 93 12/03/16 12:21 91 20 92 12/03/16 12:19 98 21 92 12/03/16 12:17 97 15 92 12/03/16 12:15 92 21 94 12/03/16 12:13 92 17 100/44 93 12/03/16 12:11 91 25 91 12/03/16 12:09 91 27 90 12/03/16 12:07 96 19 97 12/03/16 12:05 92 20 97 12/03/16 12:03 93 Nasal Cannula 2.0 12/03/16 12:03 93 Nasal Cannula 2.0 12/03/16 12:03 93 20 95 12/03/16 12:01 85 22 77/36 83 12/03/16 12:00 95 12/03/16 11:53 36.5 94 22 85/54 86 Room Air 12/03/16 11:42 85/54 General Appearance: WD/WN, no apparent distress, + obese, + pertinent finding ( on 02nc, nods off a few times in interview; some myoclonic jerks) Eyes: EOMI ENT: hearing grossly normal Neck: supple Respiratory/Chest: lungs clear, no respiratory distress, no accessory muscle use, + decreased breath sounds Cardiovascular: + tachycardia, + pertinent finding (anasarca) Abdomen: normal bowel sounds, non tender, soft, + pertinent finding (no fernandez) Extremities: + inflammation (chronic venous stasis changes), + pedal edema, + slow capillary refill, + swelling, + pertinent finding (AVF w/ susan, surrounding edema, minimal erythema, some clear drainage) Neurologic/Psych: alert, normal mood/affect, oriented x 3, + motor weakness, + pertinent finding (myoclonic jerks as above and dosing as above) Skin: + rash Diagnostics Last 24 Hours Test 12/03/16 12:04 12/03/16 12:52 12/03/16 12:53 12/03/16 17:14 Bedside Glucose 156 mg/dl 116 mg/dl Bedside Lactic Acid Venous 0.93 mmol/L White Blood Count 9.56 K/uL Red Blood Count 2.93 M/uL Hemoglobin 9.3 g/dL Hematocrit 30.3 % Mean Corpuscular Volume 103.4 fL Mean Corpuscular Hemoglobin 31.7 pg Mean Corpuscular Hemoglobin Concent 30.7 g/dl Platelet Count 216 K/uL Mean Platelet Volume 9.2 fL Neutrophils (%) (Auto) 77.5 % Lymphocytes (%) (Auto) 10.1 % Monocytes (%) (Auto) 9.0 % Eosinophils (%) (Auto) 2.9 % Basophils (%) (Auto) 0.2 % Neutrophils # (Auto) 7.40 K/uL Lymphocytes # (Auto) 0.97 K/uL Monocytes # (Auto) 0.86 K/uL Eosinophils # (Auto) 0.28 K/uL Basophils # (Auto) 0.02 K/uL RDW Standard Deviation 80.2 fL RDW Coefficient of Variation 21.1 % Immature Granulocyte % (Auto) 0.3 % Immature Granulocyte # (Auto) 0.03 K/uL Nucleated RBC Absolute Count (auto) 0.11 K/uL Nucleated Red Blood Cells % 1.1 % Toxic Vacuolation 1+ Polychromasia 1+ Hypochromasia PRESENT Basophilic Stippling 1+ Anisocytosis PRESENT Macrocytosis PRESENT Prothrombin Time 10.7 SECONDS Prothromb Time International Ratio 1.0 Activated Partial Thromboplast Time 27.3 SECONDS Partial Thromboplastin Ratio 1.1 Sodium Level 135 mmol/L Potassium Level 4.6 mmol/L Chloride Level 99 mmol/L Carbon Dioxide Level 24 mmol/L Anion Gap 12.0 mmol/L Blood Urea Nitrogen 35 mg/dl Creatinine 9.30 mg/dl Est Creatinine Clear Calc Drug Dose 9.0 ml/min Estimated GFR () 4.7 Estimated GFR (Non- 4.0 BUN/Creatinine Ratio 3.8 Random Glucose 137 mg/dl Calcium Level 8.7 mg/dl Magnesium Level 2.7 mg/dl Total Bilirubin 0.3 mg/dl Aspartate Amino Transf (AST/SGOT) 17 U/L Alanine Aminotransferase (ALT/SGPT) 10 U/L Alkaline Phosphatase 141 U/L Total Protein 7.7 gm/dl Albumin 2.4 gm/dl Globulin 5.3 gm/dl Albumin/Globulin Ratio 0.5 Test 12/03/16 20:56 12/04/16 07:08 12/04/16 07:54 Bedside Glucose 133 mg/dl 116 mg/dl Assessment & Plan 61 y/o F w/ ESRD admitted from [facility] on 12/03 for hypotension, uncontrolled pain. ESRD -trial of gentle HD today> pt w/ hx of stopping txs early d/t cramping /pain -likely to need further hd tomorrow/ daily for some time -added 1.2L fluid restriction to her diet orders -moved [facility] to -agree w/ binders Labile blood pressures -she has chronically lower blood pressures w/ SBP often 80-100s; however yesterday at [facility] and on presentation here, sbp were in 70-80s -no BP meds currently; bp seems to be higher w/ manual checks -albumin w/ HD to optimize uf Anemia of chronic disease no evidence of bleeding; suspecit the drop in hgb is dilutional -epo w/ HD -assessment of iron stores added to labs from this am Infectious diseases -she had a dose of vancomycin on 12/[address] [facility] d/t concerns about redness over her avf; dosed yesterday w/ vu shay -currently on doxycycline po -defer to primary service on abtx; f/u pending cxs. no impression to me that she needs more vanco currently. AVF to me does not appear to be infected but if concerns persist, reasonable to ask inf dzs and/or vascular to evaluate Chronic pain per primary service >for constipation mgt, recommend avoiding fleets enemas and avoiding mag based products; tap water or mineral oil enemas ok; dulcolax and stool softeners ok as well; ordered stool softeners standing w/ hold parameters; likely to need more than this Appreciate consult; will follow with you.
[2016-12-04] MEDS: HEPARIN SOD (PORCINE) 1000 UNIT/ML 10 ML VIAL IV SCH ×3 (09:45→12:38)
[2016-12-04] MEDS ORDERED: DOCUSATE SODIUM/SENNA 50/8.6MG TAB PO ONE (10:00)
[2016-12-04] MEDS: ALBUMIN HUMAN 25% 12.5 GM/50 ML VIAL IV SCH ×2 (10:00→11:02)
[2016-12-04 10:24] LABS: TOTAL IRON BINDING CAPACITY 144 mcg/dl (250-450)
--- NOTE | 2016-12-04 10:33 | Dialysis Progress Note ---
Nephrology Dialysis Note Date of Service: Dec 04, 2016. Subjective seen on HD; tolerating tx so far w/o need for albumin; goal UF at this point 2.5L; wound care seeing pt Objective Date Time Temp Pulse Resp B/P (MAP) Pulse Ox O2 Delivery O2 Flow Rate FiO2 12/04/16 10:15 84 90/42 12/04/16 10:00 84 103/54 12/04/16 09:45 90 107/46 12/04/16 09:32 36.4 98 104/44 (64) 12/04/16 08:18 37.3 91 24 90/65 (73) 98 12/04/16 04:15 36.7 97 20 104/56 (72) 90 BiPAP 12/04/16 04:00 BiPAP 12/04/16 00:36 36.8 101 20 110/54 (72) 90 CPAP 12/03/16 23:59 BiPAP 12/03/16 20:00 93 Nasal Cannula 2.0 12/03/16 19:32 105 26 101/53 (69) 91 2.0 12/03/16 16:12 36.7 98 22 84/54 (64) 93 Nasal Cannula 2.0 12/03/16 15:59 36.5 99 20 103/49 89 12/03/16 15:35 Nasal Cannula 2.0 12/03/16 15:31 99 20 103/49 89 Nasal Cannula 2.0 12/03/16 14:58 99 20 71/47 93 Nasal Cannula 2.0 12/03/16 14:53 101 12/03/16 14:42 98 20 82/36 97 Nasal Cannula 3.0 12/03/16 13:06 96 16 80/43 90 Nasal Cannula 3.0 12/03/16 12:33 95 22 86 12/03/16 12:31 91 16 61/38 12/03/16 12:29 94 16 92 12/03/16 12:27 94 18 91 12/03/16 12:25 91 25 91 12/03/16 12:23 92 18 93 12/03/16 12:21 91 20 92 12/03/16 12:19 98 21 92 12/03/16 12:17 97 15 92 12/03/16 12:15 92 21 94 12/03/16 12:13 92 17 100/44 93 12/03/16 12:11 91 25 91 12/03/16 12:09 91 27 90 12/03/16 12:07 96 19 97 12/03/16 12:05 92 20 97 12/03/16 12:03 93 Nasal Cannula 2.0 12/03/16 12:03 93 Nasal Cannula 2.0 12/03/16 12:03 93 20 95 12/03/16 12:01 85 22 77/36 83 12/03/16 12:00 95 12/03/16 11:53 36.5 94 22 85/54 86 Room Air 12/03/16 11:42 85/54 Physical Exam: General Appearance: WD/WN, no apparent distress, + obese, + pertinent finding ( on 02nc, nods off a few times in interview; some myoclonic jerks) Eyes: EOMI ENT: hearing grossly normal Neck: supple Respiratory/Chest: lungs clear, no respiratory distress, no accessory muscle use, + decreased breath sounds Cardiovascular: + tachycardia, + pertinent finding (anasarca) Abdomen: normal bowel sounds, non tender, soft, + pertinent finding (no fernandez) Extremities: + inflammation (chronic venous stasis changes), + pedal edema, + slow capillary refill, + swelling, + pertinent finding (AVF w/ susan, surrounding edema, minimal erythema, some clear drainage) Neurologic/Psych: alert, normal mood/affect, oriented x 3, + motor weakness, + pertinent finding (myoclonic jerks as above and dosing as above) Skin: + rash Current Inpatient Medications Medications (Trade) Dose Ordered Sig/Duyen Route Start Time Stop Time Status Last Admin Dose Admin Miscellaneous (Iv Fluids Completed) 1 ea PRN PRN N/A 12/03/16 15:30 12/03/17 15:29 Heparin Sodium (Porcine) (Heparin Sq 5000 Unit/0.5ml) 5,000 unit Q12 SQ 12/03/16 21:00 01/02/17 20:59 12/03/16 21:27 5,000 UNIT Acetaminophen (Tylenol Tab) 650 mg Q4H PRN PO 12/03/16 15:45 01/02/17 15:44 Ondansetron HCl (Zofran Inj) 4 mg Q6H PRN IV 12/03/16 15:45 01/02/17 15:44 12/03/16 17:59 4 MG Nitroglycerin (Nitrostat Tab) 0.4 mg UD PRN SL 12/03/16 15:45 01/02/17 15:44 Allopurinol (Zyloprim Tab) 100 mg DAILY PO 12/04/16 09:00 01/03/17 08:59 Atorvastatin Calcium (Lipitor Tab) 40 mg DAILY PO 12/04/16 09:00 01/03/17 08:59 Calcium Acetate (Phoslo Cap) 667 mg ACHS PO 12/03/16 21:00 01/02/17 20:59 12/03/16 20:59 667 MG Cholecalciferol (Vitamin D Tab) 1,000 inter.unit DAILY PO 12/04/16 09:00 01/03/17 08:59 Doxycycline Hyclate (Vibramycin Cap) 100 mg DAILY PO 12/04/16 09:00 12/14/16 08:59 Famotidine (Pepcid Tab) 20 mg DAILY PO 12/04/16 09:00 01/03/17 08:59 Salmeterol Xinafoate/ Fluticasone (Advair Diskus 500/50 Inh) 1 puff BID INH 12/03/16 21:00 01/02/17 20:59 12/03/16 20:55 1 PUFF Lidocaine (Lidoderm Patch 5%) 1 patch QAM TD 12/04/16 09:00 01/03/17 08:59 Multivitamins/ Minerals (Multivitamin W/ Minerals Tab) 1 tab DAILY PO 12/04/16 09:00 01/03/17 08:59 Pantoprazole Sodium (Protonix Tab) 40 mg DAILY PO 12/04/16 09:00 01/03/17 08:59 Pregabalin (Lyrica Cap) 50 mg DAILY PO 12/04/16 09:00 01/03/17 08:59 Pyridoxine HCl (Vitamin B-6 Tab) 200 mg DAILY PO 12/04/16 09:00 01/03/17 08:59 Silver Sulfadiazine (Silvadene 1% Crm 50GM Jar) 1 appln DAILY EXT 12/04/16 09:00 01/03/17 08:59 Tiotropium [place] (Spiriva Handihaler Inhaler) 1 puff DAILY INH 12/04/16 09:00 01/03/17 08:59 Miscellaneous (Remove Lidoderm Patch) 1 ea DAILY@21 N/A 12/03/16 21:00 01/02/17 20:59 Ascorbic Acid (Vitamin C Tab) 1,000 mg QAM PO 12/04/16 09:00 01/03/17 08:59 Insulin Glargine (Lantus Vial) 85 units BID SC 12/03/16 21:00 01/02/17 20:59 12/03/16 21:10 85 UNITS Insulin Aspart (novoLOG ASPART) SLIDING SCALE If C... ACHS SC 12/03/16 21:00 01/02/17 20:59 Glucose (Glucose 40% Gel) 15-30 GRAMS 15 GRAMS... UD PRN PO 12/03/16 17:30 01/02/17 17:29 Glucose (Glucose Chew Tab) 4-8 Tablets 4 Tabl... UD PRN PO 12/03/16 17:30 01/02/17 17:29 Dextrose (Dextrose 50% 50ML Syringe) 25-50ML OF 50% DW IV FOR... UD PRN IV 12/03/16 17:30 01/02/17 17:29 Glucagon (Glucagon Inj) 1 mg UD PRN SQ 12/03/16 17:30 01/02/17 17:29 Diclofenac Sodium (Voltaren 1% Top Gel) 1 appln QID EXT 12/03/16 21:00 01/02/17 20:59 12/03/16 20:56 1 APPLN Acetaminophen/ Hydrocodone Bitart ([place] 10/325 Tab) 1 tab Q4H PRN PO 12/03/16 18:00 12/17/16 17:59 12/03/16 23:57 1 TAB Hydromorphone HCl (Dilaudid Tab) 2 mg Q4H PRN PO 12/03/16 18:00 12/17/16 17:59 Heparin Sodium (Porcine) (Heparin Iv Bolus) 1,000 unit TODAY@0900 IV 12/04/16 09:00 12/04/16 23:59 Heparin Sodium (Porcine) (Heparin Iv Bolus) 400 unit TODAY@0900,1000,1100 IV 12/04/16 09:00 12/04/16 23:59 Albumin Human (Albumin 25%) 12.5 gm TODAY@0900,1000 IV 12/04/16 09:00 12/04/16 23:59 Albumin Human (Albumin 25%) 12.5 gm UD PRN IV 12/04/16 09:00 12/04/16 23:59 Epoetin [place] 85360 units/ Syringe 0.6 ml @ 1 mls/min TODAY@0900 IV. 12/04/16 09:00 12/04/16 23:59 Vitamin B Complex/ Vit C/Folic Acid (Nephrocaps) 1 cap QPM PO 12/04/16 21:00 01/03/17 08:59 Senna/Docusate Sodium (Senokot S Tab) 1 tab BID PO 12/04/16 21:00 01/03/17 20:59 Last 24 Hours Test 12/03/16 12:04 12/03/16 12:52 12/03/16 12:53 12/03/16 17:14 Bedside Glucose 156 mg/dl 116 mg/dl Bedside Lactic Acid Venous 0.93 mmol/L White Blood Count 9.56 K/uL Red Blood Count 2.93 M/uL Hemoglobin 9.3 g/dL Hematocrit 30.3 % Mean Corpuscular Volume 103.4 fL Mean Corpuscular Hemoglobin 31.7 pg Mean Corpuscular Hemoglobin Concent 30.7 g/dl Platelet Count 216 K/uL Mean Platelet Volume 9.2 fL Neutrophils (%) (Auto) 77.5 % Lymphocytes (%) (Auto) 10.1 % Monocytes (%) (Auto) 9.0 % Eosinophils (%) (Auto) 2.9 % Basophils (%) (Auto) 0.2 % Neutrophils # (Auto) 7.40 K/uL Lymphocytes # (Auto) 0.97 K/uL Monocytes # (Auto) 0.86 K/uL Eosinophils # (Auto) 0.28 K/uL Basophils # (Auto) 0.02 K/uL RDW Standard Deviation 80.2 fL RDW Coefficient of Variation 21.1 % Immature Granulocyte % (Auto) 0.3 % Immature Granulocyte # (Auto) 0.03 K/uL Nucleated RBC Absolute Count (auto) 0.11 K/uL Nucleated Red Blood Cells % 1.1 % Toxic Vacuolation 1+ Polychromasia 1+ Hypochromasia PRESENT Basophilic Stippling 1+ Anisocytosis PRESENT Macrocytosis PRESENT Prothrombin Time 10.7 SECONDS Prothromb Time International Ratio 1.0 Activated Partial Thromboplast Time 27.3 SECONDS Partial Thromboplastin Ratio 1.1 Sodium Level 135 mmol/L Potassium Level 4.6 mmol/L Chloride Level 99 mmol/L Carbon Dioxide Level 24 mmol/L Anion Gap 12.0 mmol/L Blood Urea Nitrogen 35 mg/dl Creatinine 9.30 mg/dl Est Creatinine Clear Calc Drug Dose 9.0 ml/min Estimated GFR () 4.7 Estimated GFR (Non- 4.0 BUN/Creatinine Ratio 3.8 Random Glucose 137 mg/dl Calcium Level 8.7 mg/dl Magnesium Level 2.7 mg/dl Total Bilirubin 0.3 mg/dl Aspartate Amino Transf (AST/SGOT) 17 U/L Alanine Aminotransferase (ALT/SGPT) 10 U/L Alkaline Phosphatase 141 U/L Total Protein 7.7 gm/dl Albumin 2.4 gm/dl Globulin 5.3 gm/dl Albumin/Globulin Ratio 0.5 Test 12/03/16 20:56 12/04/16 07:08 12/04/16 07:54 Bedside Glucose 133 mg/dl 116 mg/dl White Blood Count 8.06 K/uL Red Blood Count 2.72 M/uL Hemoglobin 8.5 g/dL Hematocrit 28.1 % Mean Corpuscular Volume 103.3 fL Mean Corpuscular Hemoglobin 31.3 pg Mean Corpuscular Hemoglobin Concent 30.2 g/dl Platelet Count 224 K/uL Mean Platelet Volume 9.3 fL Neutrophils (%) (Auto) 72.8 % Lymphocytes (%) (Auto) 13.8 % Monocytes (%) (Auto) 10.7 % Eosinophils (%) (Auto) 2.1 % Basophils (%) (Auto) 0.2 % Neutrophils # (Auto) 5.87 K/uL Lymphocytes # (Auto) 1.11 K/uL Monocytes # (Auto) 0.86 K/uL Eosinophils # (Auto) 0.17 K/uL Basophils # (Auto) 0.02 K/uL RDW Standard Deviation 79.4 fL RDW Coefficient of Variation 20.9 % Immature Granulocyte % (Auto) 0.4 % Immature Granulocyte # (Auto) 0.03 K/uL Nucleated RBC Absolute Count (auto) 0.11 K/uL Nucleated Red Blood Cells % 1.4 % Poikilocytosis PRESENT Anisocytosis PRESENT Macrocytosis PRESENT Sodium Level 133 mmol/L Potassium Level 4.4 mmol/L Chloride Level 102 mmol/L Carbon Dioxide Level 24 mmol/L Anion Gap 7.0 mmol/L Blood Urea Nitrogen 41 mg/dl Creatinine 10.00 mg/dl Est Creatinine Clear Calc Drug Dose 8.2 ml/min Estimated GFR () 4.3 Estimated GFR (Non- 3.7 BUN/Creatinine Ratio 4.1 Random Glucose 115 mg/dl Calcium Level 8.4 mg/dl Iron Level 26 mcg/dl Total Iron Binding Capacity 144 mcg/dl Transferrin 116 mg/dl Transferrin % Saturation 16 % Date/Time Source Procedure Growth Status 12/03/16 12:55 Blood Blood Culture Pending Received 12/03/16 12:53 Blood Blood Culture Pending Received Assessment & Plan 61 y/o F w/ ESRD admitted from [facility] on 12/03 for hypotension, uncontrolled pain. ESRD -f/u tx today >> so far no albumin needed; on large dialyzer for longer tx; likely to need again in am Labile blood pressures -she has chronically lower blood pressures w/ SBP often 80-100s; however yesterday at [facility] and on presentation here, sbp were in 70-80s -no BP meds currently; bp seems to be higher w/ manual checks -albumin w/ HD to optimize uf Anemia of chronic disease -epo w/ HD; iron studies show need for venofer as well and will give Appreciate consult; will follow with you.
[2016-12-04] MEDS ORDERED: IRON SUCROSE INJ 100 MG in SODIUM CHLORIDE 0.9% 100ML 100 ML IV SCH (11:00)
[2016-12-04] MEDS: INSULIN GLARGINE SC SCH (11:10)
[2016-12-04] MEDS: DICLOFENAC SOD 1% GEL 100 GM TUBE EXT SCH ×5 (13:00→21:50)
[2016-12-04] MEDS: HYDROCODONE/ACETAMI 10/325 TAB PO PRN ×3 (13:02→22:25)
[2016-12-04] MEDS: CEROVITE ADV FORMULA TAB PO SCH (14:26)
[2016-12-04] MEDS: ATORVASTATIN 40 MG TAB PO SCH (14:27)
[2016-12-04] MEDS: ALLOPURINOL 100 MG TAB PO SCH (14:27)
[2016-12-04] MEDS: ASCORBIC ACID 500 MG TAB PO SCH (14:27)
[2016-12-04] MEDS: PYRIDOXINE HCL 50 MG TAB PO SCH (14:27)
[2016-12-04] MEDS: PANTOprazole SOD 40 MG TAB PO SCH (14:27)
[2016-12-04] MEDS: CHOLECALCIFEROL 1000 INTER.UNIT TAB PO SCH (14:28)
[2016-12-04] MEDS: FAMOTIDINE 20 MG TAB PO SCH (14:28)
[2016-12-04] MEDS: SILVER SULFADIAZINE 1% CR 50 GM JAR EXT SCH (14:29)
[2016-12-04] MEDS: FLUTICASONE/SALMETEROL (ADVAIR) 500/50 INH 14 PUFF INH SCH ×2 (14:29→21:05)
[2016-12-04] MEDS: TIOTROPIUM BROMIDE 5 PUFF/90 MCG INH INH SCH (14:30)
[2016-12-04] MEDS: HEPARIN SOD 5000 UNIT/0.5 ML CARP SQ SCH ×2 (14:31→21:14)
[2016-12-04] MEDS: PREGABALIN 50 MG CAP PO SCH (14:32)
[2016-12-04] MEDS: BOOST GLUCOSE CONTROL PO SCH (21:00)
[2016-12-04] MEDS: NEPHROCAPS PO SCH (21:00)
[2016-12-04] MEDS ORDERED: INSULIN GLARGINE SOLOSTAR 100 UNITS/ML 3 ML PEN SC SCH (21:00)
[2016-12-04] MEDS: DOCUSATE SODIUM/SENNA 50/8.6MG TAB PO SCH (21:07)
[2016-12-04] MEDS: DOXYCYCLINE HYCLATE 100 MG CAP PO SCH (21:08)
[2016-12-04] MEDS: NYSTATIN POWDER 15GM BTL EXT SCH (21:11)
--- NOTE | 2016-12-04 21:31 | Medical Student: [facility] ---
Med Student Progress Note Date of Service Dec 04, 2016. Subjective Pt evaluation today including: conversation w/ patient pt is a 61 F who presented with severe neck pain radiating to top of head, bilateral upper extremity edema since fistula repair on November 19, and multiple co-morbidities. Pt was on dialysis during conversation. She appears much more comfortable today and was not in acute distress. She reported sleeping well but being "up and down" a few times. Pt reported finally regaining appetite this morning and ate some breakfast that she was able to keep down. Her neck pain is still present but much better than yesterday. Pt was in respiratory distress and requested to sit up when seen yesterday, today she reports breathing much better and is able to lay on the bed. She is still aneuric. Review of Systems Constitutional: No fever, No chills Eyes: No worsening of vision ENT: No hearing loss Respiratory: No cough, No sputum, No wheezing Cardiac: + edema (upper and lower extremity), No chest pain Abdomen: No pain, No nausea, No vomiting Musculoskeletal: + muscle pain (back pain) Neurologic: + numbness/tingling (hands and feet bilaterally) Psychiatric: No depression symptoms, No anxiety Heme: No abnormal bleeding/bruising Skin: + see HPI, + rash (rash between legs being treated with antifungal) Objective Vital Signs Date Time Temp Pulse Resp B/P (MAP) Pulse Ox O2 Delivery O2 Flow Rate FiO2 12/04/16 10:15 84 90/42 12/04/16 10:00 84 103/54 12/04/16 09:45 90 107/46 12/04/16 09:32 36.4 98 104/44 (64) 12/04/16 08:18 37.3 91 24 90/65 (73) 98 12/04/16 04:15 36.7 97 20 104/56 (72) 90 BiPAP 12/04/16 04:00 BiPAP 12/04/16 00:36 36.8 101 20 110/54 (72) 90 CPAP 12/03/16 23:59 BiPAP 12/03/16 20:00 93 Nasal Cannula 2.0 12/03/16 19:32 105 26 101/53 (69) 91 2.0 12/03/16 16:12 36.7 98 22 84/54 (64) 93 Nasal Cannula 2.0 12/03/16 15:59 36.5 99 20 103/49 89 12/03/16 15:35 Nasal Cannula 2.0 12/03/16 15:31 99 20 103/49 89 Nasal Cannula 2.0 12/03/16 14:58 99 20 71/47 93 Nasal Cannula 2.0 12/03/16 14:53 101 12/03/16 14:42 98 20 82/36 97 Nasal Cannula 3.0 12/03/16 13:06 96 16 80/43 90 Nasal Cannula 3.0 12/03/16 12:33 95 22 86 12/03/16 12:31 91 16 61/38 12/03/16 12:29 94 16 92 12/03/16 12:27 94 18 91 12/03/16 12:25 91 25 91 12/03/16 12:23 92 18 93 12/03/16 12:21 91 20 92 12/03/16 12:19 98 21 92 12/03/16 12:17 97 15 92 12/03/16 12:15 92 21 94 12/03/16 12:13 92 17 100/44 93 12/03/16 12:11 91 25 91 12/03/16 12:09 91 27 90 12/03/16 12:07 96 19 97 12/03/16 12:05 92 20 97 12/03/16 12:03 93 Nasal Cannula 2.0 12/03/16 12:03 93 Nasal Cannula 2.0 12/03/16 12:03 93 20 95 12/03/16 12:01 85 22 77/36 83 12/03/16 12:00 95 12/03/16 11:53 36.5 94 22 85/54 86 Room Air 12/03/16 11:42 85/54 Physical Exam General Appearance: no apparent distress Eyes: bilateral eyes normal inspection, bilateral eyes EOMI ENT: normal ENT inspection, hearing grossly normal Neck: supple, no adenopathy, no JVD, no carotid bruits Respiratory/Chest: chest non-tender, lungs clear, normal breath sounds Cardiovascular: regular rate, rhythm, no edema, no gallop, no JVD, no murmur Abdomen: normal bowel sounds, non tender, soft Extremities: non-tender, normal inspection, + pedal edema, + pertinent finding (lower leg skin flaking/peeling on both sides ; reported pain on palpation ) 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: alert, normal mood/affect, oriented x 3 Skin: normal color, + rash (abdominal skin fold), + pertinent finding ( bilateral lower legs with skin peeling/flaking. Reports pain on palpation of anterior aspect bilaterally but not as bad as yesterday. ) Lymphatic: no adenopathy Laboratory Results Last 24 Hours Test 12/03/16 12:04 12/03/16 12:52 12/03/16 12:53 12/03/16 17:14 Bedside Glucose 156 mg/dl 116 mg/dl Bedside Lactic Acid Venous 0.93 mmol/L White Blood Count 9.56 K/uL Red Blood Count 2.93 M/uL Hemoglobin 9.3 g/dL Hematocrit 30.3 % Mean Corpuscular Volume 103.4 fL Mean Corpuscular Hemoglobin 31.7 pg Mean Corpuscular Hemoglobin Concent 30.7 g/dl Platelet Count 216 K/uL Mean Platelet Volume 9.2 fL Neutrophils (%) (Auto) 77.5 % Lymphocytes (%) (Auto) 10.1 % Monocytes (%) (Auto) 9.0 % Eosinophils (%) (Auto) 2.9 % Basophils (%) (Auto) 0.2 % Neutrophils # (Auto) 7.40 K/uL Lymphocytes # (Auto) 0.97 K/uL Monocytes # (Auto) 0.86 K/uL Eosinophils # (Auto) 0.28 K/uL Basophils # (Auto) 0.02 K/uL RDW Standard Deviation 80.2 fL RDW Coefficient of Variation 21.1 % Immature Granulocyte % (Auto) 0.3 % Immature Granulocyte # (Auto) 0.03 K/uL Nucleated RBC Absolute Count (auto) 0.11 K/uL Nucleated Red Blood Cells % 1.1 % Toxic Vacuolation 1+ Polychromasia 1+ Hypochromasia PRESENT Basophilic Stippling 1+ Anisocytosis PRESENT Macrocytosis PRESENT Prothrombin Time 10.7 SECONDS Prothromb Time International Ratio 1.0 Activated Partial Thromboplast Time 27.3 SECONDS Partial Thromboplastin Ratio 1.1 Sodium Level 135 mmol/L Potassium Level 4.6 mmol/L Chloride Level 99 mmol/L Carbon Dioxide Level 24 mmol/L Anion Gap 12.0 mmol/L Blood Urea Nitrogen 35 mg/dl Creatinine 9.30 mg/dl Est Creatinine Clear Calc Drug Dose 9.0 ml/min Estimated GFR () 4.7 Estimated GFR (Non- 4.0 BUN/Creatinine Ratio 3.8 Random Glucose 137 mg/dl Calcium Level 8.7 mg/dl Magnesium Level 2.7 mg/dl Total Bilirubin 0.3 mg/dl Aspartate Amino Transf (AST/SGOT) 17 U/L Alanine Aminotransferase (ALT/SGPT) 10 U/L Alkaline Phosphatase 141 U/L Total Protein 7.7 gm/dl Albumin 2.4 gm/dl Globulin 5.3 gm/dl Albumin/Globulin Ratio 0.5 Test 12/03/16 20:56 12/04/16 07:08 12/04/16 07:54 Bedside Glucose 133 mg/dl 116 mg/dl White Blood Count 8.06 K/uL Red Blood Count 2.72 M/uL Hemoglobin 8.5 g/dL Hematocrit 28.1 % Mean Corpuscular Volume 103.3 fL Mean Corpuscular Hemoglobin 31.3 pg Mean Corpuscular Hemoglobin Concent 30.2 g/dl Platelet Count 224 K/uL Mean Platelet Volume 9.3 fL Neutrophils (%) (Auto) 72.8 % Lymphocytes (%) (Auto) 13.8 % Monocytes (%) (Auto) 10.7 % Eosinophils (%) (Auto) 2.1 % Basophils (%) (Auto) 0.2 % Neutrophils # (Auto) 5.87 K/uL Lymphocytes # (Auto) 1.11 K/uL Monocytes # (Auto) 0.86 K/uL Eosinophils # (Auto) 0.17 K/uL Basophils # (Auto) 0.02 K/uL RDW Standard Deviation 79.4 fL RDW Coefficient of Variation 20.9 % Immature Granulocyte % (Auto) 0.4 % Immature Granulocyte # (Auto) 0.03 K/uL Nucleated RBC Absolute Count (auto) 0.11 K/uL Nucleated Red Blood Cells % 1.4 % Poikilocytosis PRESENT Anisocytosis PRESENT Macrocytosis PRESENT Sodium Level 133 mmol/L Potassium Level 4.4 mmol/L Chloride Level 102 mmol/L Carbon Dioxide Level 24 mmol/L Anion Gap 7.0 mmol/L Blood Urea Nitrogen 41 mg/dl Creatinine 10.00 mg/dl Est Creatinine Clear Calc Drug Dose 8.2 ml/min Estimated GFR () 4.3 Estimated GFR (Non- 3.7 BUN/Creatinine Ratio 4.1 Random Glucose 115 mg/dl Calcium Level 8.4 mg/dl Iron Level 26 mcg/dl Total Iron Binding Capacity 144 mcg/dl Transferrin 116 mg/dl Transferrin % Saturation 16 % Medications Current Inpatient Medications Medications (Trade) Dose Ordered Sig/Duyen Route Start Time Stop Time Status Last Admin Dose Admin Miscellaneous (Iv Fluids Completed) 1 ea PRN PRN N/A 12/03/16 15:30 12/03/17 15:29 Heparin Sodium (Porcine) (Heparin Sq 5000 Unit/0.5ml) 5,000 unit Q12 SQ 12/03/16 21:00 01/02/17 20:59 12/03/16 21:27 5,000 UNIT Acetaminophen (Tylenol Tab) 650 mg Q4H PRN PO 12/03/16 15:45 01/02/17 15:44 Ondansetron HCl (Zofran Inj) 4 mg Q6H PRN IV 12/03/16 15:45 01/02/17 15:44 12/03/16 17:59 4 MG Nitroglycerin (Nitrostat Tab) 0.4 mg UD PRN SL 12/03/16 15:45 01/02/17 15:44 Allopurinol (Zyloprim Tab) 100 mg DAILY PO 12/04/16 09:00 01/03/17 08:59 Atorvastatin Calcium (Lipitor Tab) 40 mg DAILY PO 12/04/16 09:00 01/03/17 08:59 Calcium Acetate (Phoslo Cap) 667 mg ACHS PO 12/03/16 21:00 01/02/17 20:59 12/03/16 20:59 667 MG Cholecalciferol (Vitamin D Tab) 1,000 inter.unit DAILY PO 12/04/16 09:00 01/03/17 08:59 Doxycycline Hyclate (Vibramycin Cap) 100 mg DAILY PO 12/04/16 09:00 12/14/16 08:59 Famotidine (Pepcid Tab) 20 mg DAILY PO 12/04/16 09:00 01/03/17 08:59 Salmeterol Xinafoate/ Fluticasone (Advair Diskus 500/50 Inh) 1 puff BID INH 12/03/16 21:00 01/02/17 20:59 12/03/16 20:55 1 PUFF Lidocaine (Lidoderm Patch 5%) 1 patch QAM TD 12/04/16 09:00 01/03/17 08:59 Multivitamins/ Minerals (Multivitamin W/ Minerals Tab) 1 tab DAILY PO 12/04/16 09:00 01/03/17 08:59 Pantoprazole Sodium (Protonix Tab) 40 mg DAILY PO 12/04/16 09:00 01/03/17 08:59 Pregabalin (Lyrica Cap) 50 mg DAILY PO 12/04/16 09:00 01/03/17 08:59 Pyridoxine HCl (Vitamin B-6 Tab) 200 mg DAILY PO 12/04/16 09:00 01/03/17 08:59 Silver Sulfadiazine (Silvadene 1% Crm 50GM Jar) 1 appln DAILY EXT 12/04/16 09:00 01/03/17 08:59 Tiotropium [place] (Spiriva Handihaler Inhaler) 1 puff DAILY INH 12/04/16 09:00 01/03/17 08:59 Miscellaneous (Remove Lidoderm Patch) 1 ea DAILY@21 N/A 12/03/16 21:00 01/02/17 20:59 Ascorbic Acid (Vitamin C Tab) 1,000 mg QAM PO 12/04/16 09:00 01/03/17 08:59 Insulin Glargine (Lantus Vial) 85 units BID SC 12/03/16 21:00 01/02/17 20:59 12/03/16 21:10 85 UNITS Insulin Aspart (novoLOG ASPART) SLIDING SCALE If C... ACHS SC 12/03/16 21:00 01/02/17 20:59 Glucose (Glucose 40% Gel) 15-30 GRAMS 15 GRAMS... UD PRN PO 12/03/16 17:30 01/02/17 17:29 Glucose (Glucose Chew Tab) 4-8 Tablets 4 Tabl... UD PRN PO 12/03/16 17:30 01/02/17 17:29 Dextrose (Dextrose 50% 50ML Syringe) 25-50ML OF 50% DW IV FOR... UD PRN IV 12/03/16 17:30 01/02/17 17:29 Glucagon (Glucagon Inj) 1 mg UD PRN SQ 12/03/16 17:30 01/02/17 17:29 Diclofenac Sodium (Voltaren 1% Top Gel) 1 appln QID EXT 12/03/16 21:00 01/02/17 20:59 12/03/16 20:56 1 APPLN Acetaminophen/ Hydrocodone Bitart ([place] 10/325 Tab) 1 tab Q4H PRN PO 12/03/16 18:00 12/17/16 17:59 12/03/16 23:57 1 TAB Hydromorphone HCl (Dilaudid Tab) 2 mg Q4H PRN PO 12/03/16 18:00 12/17/16 17:59 Heparin Sodium (Porcine) (Heparin Iv Bolus) 1,000 unit TODAY@0900 IV 12/04/16 09:00 12/04/16 23:59 Heparin Sodium (Porcine) (Heparin Iv Bolus) 400 unit TODAY@0900,1000,1100 IV 12/04/16 09:00 12/04/16 23:59 Albumin Human (Albumin 25%) 12.5 gm TODAY@0900,1000 IV 12/04/16 09:00 12/04/16 23:59 Albumin Human (Albumin 25%) 12.5 gm UD PRN IV 12/04/16 09:00 12/04/16 23:59 Epoetin [place] 50633 units/ Syringe 0.6 ml @ 1 mls/min TODAY@0900 IV. 12/04/16 09:00 12/04/16 23:59 Vitamin B Complex/ Vit C/Folic Acid (Nephrocaps) 1 cap QPM PO 12/04/16 21:00 01/03/17 08:59 Senna/Docusate Sodium (Senokot S Tab) 1 tab BID PO 12/04/16 21:00 01/03/17 20:59 Assessment and Plan Assessment and Plan: pt is a 61 yo F who presented yesterday with severe neck pain, bilateral upper extremity swelling, worsening cellulitis of the lower legs bilaterally, anuria, loss of appetite, and hip pain. History is notable for COPD, HTN, T2DM, and MIKAYLA. Neck pain - Much improved compared to day of admission. - Dr. Lockhart performed maneuver. - Topical Voltarin gel - Continue hydrocodone PRN - Consider trigger point injection Bilateral upper extremity swelling - Possible anasarca from being post-op. Nephrology to follow. Bilateral lower leg cellulitis - continue doxycycline loss of appetite/malnutrition - pt started being able to eat this morning for breakfast, will continue to monitor CHF - Monitor intake and output, daily weights T2DM - Continue Lantus and Novolog GERD - Continue pantoprazole and famotidine COPD - Continue DuoNeb PRN - Continue tiotropium DVT prophylaxis - SQ heparin 5,000 units Q12H
[2016-12-05] VITALS (23 sets, daily range): BP systolic 72–133; BP diastolic 40–92; PULSE 69–111; TEMP 36.3–36.9; O2SAT 92–95
[2016-12-05] MEDS: INSULIN ASPART 100 UNITS/ML 3 ML PEN SC SCH ×4 (07:00→21:00)
[2016-12-05] MEDS ORDERED: HEPARIN SOD (PORCINE) 1000 UNIT/ML 10 ML VIAL IV SCH (07:45)
[2016-12-05] MEDS ORDERED: EPOETIN ALFA 10,000 UNITS/ML VIAL IV. ONE (07:45)
[2016-12-05] MEDS ORDERED: ALBUMIN HUMAN 25% 12.5 GM/50 ML VIAL IV PRN (07:45)
--- NOTE | 2016-12-05 07:46 | Family Medicine Progress Note ---
Progress Note Date of Service Dec 05, 2016. Subjective Pt evaluation today including: conversation w/ patient, physical exam, chart review, lab review The patient was seen and examined at bedside. Pt states that her neck pain and YOUSSEF have improved. She states that her inguinal area is still bothering her but has improved with the placement of a pillow between her legs. Tele showed sinus rhythm in the 80s and 90s. Pt was advised that she cannot decline PT at all. Patient is resting comfortably in bed. Eating and urinating well. According to pt she is at her clinical baseline. Plan of care was described to the patient and all questions were answered. Constitutional: No fever, No chills, No sweats Respiratory: No cough, No sputum, No shortness of breath, No dyspnea on exertion Abdomen: No pain, No nausea, No vomiting, No diarrhea, No constipation Musculoskeletal: + joint pain Female : No dysuria Skin: + problem reported (inguinal folds are burning her) Objective Physical Exam Notes: General Appearance: WD/WN, no apparent distress, + obese (morbidly obese) Eyes: PERRL, EOMI ENT: + pertinent finding (patient has a large neck) Respiratory/Chest: chest non-tender, lungs clear, normal breath sounds, no respiratory distress, no accessory muscle use Cardiovascular: regular rate, rhythm, no edema, no gallop, no JVD, no murmur Abdomen: normal bowel sounds, non tender, soft, no organomegaly, no pulsatile mass Extremities: non-tender, normal inspection, no pedal edema, no calf tenderness , + pertinent finding (pt is unable to stand or ambulate under her own weight) 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: atm mechanic II-XII nml as tested, alert, normal mood/affect, oriented x 3 Skin: + pertinent finding (bilateral cellulitis in LE below the knee - weeping non purulent, Under the belly skin is inflamed, likely candidial) Assessment and Plan 61F with a PMHx of DM2, GERD, COPD, cellulitis, ESRD on dialysis and chronic pain presents with neck pain worse on palpation and headaches and a two week history of bilateral hand edema. The YOUSSEF have for the most part resolved with Osteopathic manipulation techniques. We are treating the cellulitis with Doxycycline, we are treating the inguinal rash with Nystatin Powder. We are giving dialysis. The patient has a 2LNC oxygen requirement. PT and OT are on board. The patient has significant comorbidities and her prognosis is guarded. Neck spasm / headache - CT head no acute pathology - Voltaren gel QID - [place] 1 tab Q4H PRN. - Pt gets around 4 tabs in a 24hour period. - Daily osteopathic manipulation performed by Dr Chantelle BENEDICT Chronic pain - c/w Lyrica 50mg daily. Bilateral hand edema - Patient is likely third spacing with the poor hand edema, we will try 25% Albumin TID in an effort to draw out the fluid from the intersitium. Pt is also on a fluid restricted diet and receiving dialysis. The edema is acute onset since the AV fistula surgery on the . - Nephrology on board. Irritated inguinal folds, likely fungal - Nystatin Powder - Will place pillow between legs as per husbands request. - Continue to monitor. Hypotension - manual BP QS as higher than automatic, intermittent small bolus of NSS if MAP < 65 or patient symptomatic. - Will discuss the role of Pressors in a patient such as this with Dr. Lockhart. End stage renal disease on dialysis - Dialysis again today. Defer to nephro on schedule. Cellulitis -c/w Doxycycline to 100mg BID, Day #3 Anuria - likely from ESRD - bladder scan to check for retention - I&Os Diastolic heart failure - I&Os, daily weights - Per nephro, limit fluids to 1200 per day Morbid Obesity - The patient is morbidly obese however with a low albumin and chronic cellulitis of the LE and inguinal folds there is a protein requirement. We will limit meals to 2200 cals per day (they should be under that amount anyway) We dont' want any junk food or cheap carbs. Protein and fibre are encouraged. - Will hold Boost supplementation - pt's underlying medical conditions would benefit greatly if she was able to ambulate more and increase blood flow, her body habitus at present prevents this. - We will watch her daily weights closely - she appears to be losing weight however the bed scale measurements are notoriously unreliable. Pt is not complaining of being hungry. She is eating meals appropriately. Type 2 diabetes - Lantus 85 units BID - Novolog 5 correction, 2 carb - ACHS BSG - HbA1B 5.9 (11/12/16) GERD - Continue famotidine and pantoprazole COPD - without current exacerbation - continue tiotropium - duonebs BID VTE Prophylaxis - heparin 5000 units SQ Q12H Disposition - Admit FULL CODE Resident Physician Supervision Note: I interviewed and examined the patient. Discussed with Dr. Chauhan and agree with findings and plan as documented in the note. Any exceptions or clarifications are listed here: None Documented By: Michael Bojorquezenour neck pain improved, getting HD right now and feeling emiliano cold. swelling about the same vitals noted nad breathing unlabored edema about the same neck pain - MSK - improving, off and on OMT and continue voltaren gel anasarca - ongoing HD. trial of albumin and high dose vitamin C venous stasis changes w concomitant cellulitis - doxy and work on edema dispo - uncertain. Resident Involvement: Resident Care Provided Care Provided: Adult Hospital Medicine
[2016-12-05] MEDS: CALCIUM ACETATE 667MG GELCAP PO SCH ×4 (07:57→21:00)
[2016-12-05] MEDS: PREGABALIN 50 MG CAP PO SCH (07:57)
[2016-12-05] MEDS: HYDROCODONE/ACETAMI 10/325 TAB PO PRN ×3 (07:57→22:13)
[2016-12-05] MEDS: NYSTATIN POWDER 15GM BTL EXT SCH ×2 (08:30→21:15)
[2016-12-05] MEDS: DICLOFENAC SOD 1% GEL 100 GM TUBE EXT SCH ×4 (08:31→21:14)
[2016-12-05] MEDS: TIOTROPIUM BROMIDE 5 PUFF/90 MCG INH INH SCH (08:31)
[2016-12-05] MEDS: SILVER SULFADIAZINE 1% CR 50 GM JAR EXT SCH (08:31)
[2016-12-05] MEDS: FLUTICASONE/SALMETEROL (ADVAIR) 500/50 INH 14 PUFF INH SCH ×2 (08:31→21:12)
--- NOTE | 2016-12-05 08:31 | Medical Student: [facility] ---
Med Student Progress Note Date of Service Dec 05, 2016. Subjective Pt evaluation today including: conversation w/ patient Pain: generalized (leg, neck most bothersome) pt is a 61 yo F who presented with severe neck pain and multiple co- morbidities. She felt "so-so" today and said the neck pain is better compared to yesterday. With appetite, she reported eating solid foods as being the hard part; it is easier to take in liquids. She felt like when she has sever neck pain, her appetite goes down, and vice versa. She had some headache last night similar to the ones she's been having, and got some tylenol which provided minimal relief. She did not sound happy about having to wean off narcotic pills due to the generalized pain. Pt has been complaining of rash in the pannus and thighs which are being treated with antifungal cream, powder, and pillow between legs to prevent rubbing against each other which she said worked well. Did not sleep well last night due to generalized pain/discomfort. Her legs feel heavy and arms are still swollen. Cellulitis on legs felt wet to her. The one thing in which she has really noticed an improvement is her breathing. Review of Systems Constitutional: + see HPI, No fever, No chills Eyes: No worsening of vision ENT: No hearing loss Respiratory: No cough, No sputum, No wheezing Cardiac: + edema, No chest pain Abdomen: No pain, No nausea, No vomiting Musculoskeletal: + muscle pain Female : No dysuria (still unable to urinate) Neurologic: + numbness/tingling, No memory loss, No weakness Psychiatric: No depression symptoms, No anxiety Heme: No abnormal bleeding/bruising, No clotting problems Endo: + fatigue Skin: + rash Objective Vital Signs Date Time Temp Pulse Resp B/P (MAP) Pulse Ox O2 Delivery O2 Flow Rate FiO2 12/05/16 04:00 Nasal Cannula 2.0 12/05/16 03:05 36.7 100 18 89/40 (56) 95 Nasal Cannula 2.0 12/04/16 23:59 CPAP 12/04/16 23:05 36.7 97 16 93/54 (67) 97 Nasal Cannula 2.0 12/04/16 20:00 Nasal Cannula 2.0 12/04/16 18:54 36.5 96 16 101/41 (61) 95 Nasal Cannula 2.5 12/04/16 16:30 36.5 98 24 102/44 (63) 98 Nasal Cannula 2.0 12/04/16 16:00 Nasal Cannula 2.0 12/04/16 15:00 91 Nasal Cannula 2.0 12/04/16 14:26 36.5 95 90/44 (59) 12/04/16 14:25 90/74 (79) 12/04/16 14:19 98/81 (87) 12/04/16 14:13 87/56 (66) 12/04/16 13:30 92 80/37 12/04/16 13:15 95 100/58 12/04/16 13:00 97 118/43 12/04/16 12:45 84 90/69 12/04/16 12:30 91 100/42 12/04/16 12:15 89 100/46 12/04/16 12:00 87 106/42 12/04/16 12:00 Nasal Cannula 2.0 12/04/16 11:45 89 91/50 12/04/16 11:30 88 80/58 12/04/16 11:15 88 89/45 12/04/16 11:00 88 67/36 12/04/16 10:45 85 78/33 12/04/16 10:30 91 85/41 12/04/16 10:29 Nasal Cannula 2.0 12/04/16 10:15 84 90/42 12/04/16 10:00 84 103/54 12/04/16 09:45 90 107/46 12/04/16 09:32 36.4 98 104/44 (64) 12/04/16 08:18 37.3 91 24 90/65 (73) 98 Physical Exam General Appearance: no apparent distress Eyes: bilateral eyes normal inspection, bilateral eyes EOMI ENT: normal ENT inspection, hearing grossly normal Neck: supple, no JVD, no carotid bruits Respiratory/Chest: chest non-tender, lungs clear, normal breath sounds, no respiratory distress Cardiovascular: regular rate, rhythm, no gallop, no JVD, no murmur Abdomen: normal bowel sounds, non tender, soft Extremities: non-tender, + pedal edema 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: alert, normal mood/affect, oriented x 3 Skin: + rash, + pertinent finding (cellulitis on legs had minor pain on palpation, there was some clear discharge bilaterally) Lymphatic: no adenopathy Laboratory Results Last 24 Hours Test 12/04/16 10:59 12/04/16 16:30 12/04/16 20:07 12/05/16 06:35 Bedside Glucose 101 mg/dl 90 mg/dl 103 mg/dl 70 mg/dl Test 12/05/16 08:10 Assessment and Plan Assessment and Plan: pt is a 61 yo with severe neck pain and multiple co-morbidities. Neck pain - Continue OMT by Dr. Lockhart - Voltarin gel - Narcotic pill Bilateral upper extremity swelling - Still present and pt has not noticed any changes - Continue dialysis and consider treatment with diuretics/albumin Rash between legs and in pannus - Nystatin Powder - Pillow between legs to minimize rubbing and irritation Lower leg cellulitis - continue doxycycline ESRD - continue daily dialysis generalized pain - continue Lyrica CHF - Monitor intake and output, daily weights - limit fluid in take to 1,200 ml per nephrology T2DM - Continue Lantus and Novolog GERD - Continue pantoprazole and famotidine COPD - Continue DuoNeb PRN - Continue tiotropium DVT prophylaxis - SQ heparin 5,000 units Q12H
[2016-12-05 08:32] LABS: BASO % 0.4 %; BASO ABS # 0.03 K/uL (0-0.2); EOS % 2.5 %; IG% 0.5 %; LYMPH % 12.2 %; LYMPH ABS # 0.98 K/uL (1.2-3.4); MEAN CELL VOLUME 103.3 fL (80-100); MEAN CORPUSCULAR HEMOGLOBIN 31.3 pg (25-34); MEAN CORPUSCULAR HGB CONC 30.3 g/dl (32-36); MEAN PLATELET VOLUME 9.2 fL (7.4-10.4); MONO % 11.8 %; NEUT % 72.6 %; PLATELET COUNT 231 K/uL (130-400); WHITE BLOOD COUNT 8.02 K/uL (4.8-10.8)
[2016-12-05] MEDS: ATORVASTATIN 40 MG TAB PO SCH (08:32)
[2016-12-05] MEDS: CEROVITE ADV FORMULA TAB PO SCH (08:32)
[2016-12-05] MEDS: BOOST GLUCOSE CONTROL PO SCH ×2 (08:32→21:00)
[2016-12-05] MEDS: DOCUSATE SODIUM/SENNA 50/8.6MG TAB PO SCH ×2 (08:33→21:13)
[2016-12-05] MEDS: PANTOprazole SOD 40 MG TAB PO SCH (08:33)
[2016-12-05] MEDS: FAMOTIDINE 20 MG TAB PO SCH (08:33)
[2016-12-05] MEDS: ASCORBIC ACID 500 MG TAB PO SCH (08:34)
[2016-12-05] MEDS: CHOLECALCIFEROL 1000 INTER.UNIT TAB PO SCH (08:34)
[2016-12-05] MEDS: PYRIDOXINE HCL 50 MG TAB PO SCH (08:34)
[2016-12-05] MEDS: DOXYCYCLINE HYCLATE 100 MG CAP PO SCH ×2 (08:34→21:13)
[2016-12-05] MEDS: LIDODERM (LIDOCAINE) PATCH 5% TD SCH (08:35)
[2016-12-05] MEDS: ALLOPURINOL 100 MG TAB PO SCH (08:35)
[2016-12-05] MEDS: HEPARIN SOD 5000 UNIT/0.5 ML CARP SQ SCH ×2 (08:36→21:17)
[2016-12-05 08:59] LABS: ANISOCYTOSIS PRESENT; COMPLETE YES; VACUOLIZATION 1+
[2016-12-05] MEDS ORDERED: EPOETIN ALFA INJ 12,000 UNITS in SYRINGE 0 ML IV. ONE (09:00)
[2016-12-05] MEDS ORDERED: IRON SUCROSE INJ 100 MG in SYRINGE 0 ML IV ONE (09:00)
[2016-12-05 09:10] LABS: ALB/GLOB RATIO 0.4 (0.9-2); BUN/CREATININE RATIO 2.9 (10-20); CALCIUM 8.5 mg/dl (8.5-10.1); CREATININE 6.6 mg/dl (0.60-1.20); POTASSIUM 3.6 mmol/L (3.5-5.1)
[2016-12-05] MEDS ORDERED: NURSING VERBAL MED ORDER ONE (09:45)
[2016-12-05] MEDS ORDERED: INSULIN GLARGINE SC SCH (10:00)
[2016-12-05] MEDS: HEPARIN SOD (PORCINE) 1000 UNIT/ML 10 ML VIAL IV SCH ×3 (11:00→13:00)
[2016-12-05] MEDS ORDERED: ASCORBIC ACID 500 MG TAB PO ONE (11:52)
[2016-12-05] MEDS: ONDANSETRON INJ 2 MG/ML 2 ML VIAL IV PRN (15:16)
[2016-12-05] MEDS: ALBUMIN HUMAN 25% 12.5 GM/50 ML VIAL IV SCH ×2 (15:17→21:12)
[2016-12-05] MEDS ORDERED: ONDANSETRON 4MG OD TAB PO PRN (17:15)
[2016-12-05] MEDS ORDERED: POLYETHYLENE (MIRALAX) 17 GM PACK PO ONE (18:30)
[2016-12-05] MEDS: ONDANSETRON 4MG OD TAB PO PRN (18:42)
--- NOTE | 2016-12-05 18:43 | DIAGNOSTIC IMAGING REPORT ---
KUB HISTORY: vomiting and no bowel movement, r/o obstruction COMPARISON: KUB 02/27/2014. FINDINGS: The bowel gas pattern is unremarkable. There are no dilated loops of small bowel to suggest an obstruction. No renal calculi. No ureteral calculi. No pneumoperitoneum or pneumatosis. Multiple small gallstones. Degenerative changes within the lumbar spine. Small to moderate amount well-formed stool seen within the colon. IMPRESSION: 1. No evidence for bowel obstruction. 2. Cholelithiasis. 3. Small to moderate amount of well-formed stool within the colon. Electronically signed by: Villa Vidales M.D. 12/05/2016 6:41 PM Dictated Date/Time: 12/05/2016 6:40 PM
[2016-12-05] MEDS: NEPHROCAPS PO SCH (21:13)
[2016-12-05] MEDS: INSULIN GLARGINE SOLOSTAR 100 UNITS/ML 3 ML PEN SC SCH (21:24)
[2016-12-06] VITALS (11 sets, daily range): BP systolic 94–117; BP diastolic 34–70; PULSE 48–105; TEMP 36.4–36.8; O2SAT 91–97
[2016-12-06] MEDS: HYDROCODONE/ACETAMI 10/325 TAB PO PRN ×4 (03:30→20:39)
[2016-12-06] MEDS: ONDANSETRON 4MG OD TAB PO PRN ×2 (03:33→08:24)
[2016-12-06 06:05] LABS: BASO % 0.4 %; BASO ABS # 0.03 K/uL (0-0.2); EOS % 2.4 %; HEMATOCRIT 31.9 % (37-47); IG% 1.2 %; LYMPH % 8.6 %; LYMPH ABS # 0.64 K/uL (1.2-3.4); MEAN CELL VOLUME 104.2 fL (80-100); MEAN CORPUSCULAR HEMOGLOBIN 30.7 pg (25-34); MEAN CORPUSCULAR HGB CONC 29.5 g/dl (32-36); MEAN PLATELET VOLUME 9.3 fL (7.4-10.4); MONO % 17.8 %; NEUT % 69.6 %; PLATELET COUNT 208 K/uL (130-400); RED BLOOD COUNT 3.06 M/uL (4.2-5.4); WHITE BLOOD COUNT 7.41 K/uL (4.8-10.8)
[2016-12-06 06:37] LABS: ANISOCYTOSIS PRESENT; COMPLETE YES; POLYCHROMASIA 1+; STOMATOCYTE 1+
[2016-12-06 06:43] LABS: BUN/CREATININE RATIO 2.6 (10-20); CALCIUM 8.4 mg/dl (8.5-10.1); CREATININE 5.2 mg/dl (0.60-1.20); POTASSIUM 3.4 mmol/L (3.5-5.1)
--- NOTE | 2016-12-06 06:47 | Family Medicine Progress Note ---
Progress Note Date of Service Dec 06, 2016. 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 w/ senior science consultant, review of inpatient medication list Patient found sitting out of bed, slightly agitated. She states that she is not slept well for a few days now, secondary to pain felt along her groin and also due to persistent nausea. She states that she has diminished appetite, and has had 2 episodes of vomiting thus far since last night, nonbloody. She states that the Zofran has provided her minimal relief. For the groin pain she is working with her nurse to shift her position every few hours which has been somewhat helpful. Wound care previously came by while she was on dialysis, and she is hoping they will follow up again. She otherwise denies chest pain, shortness of breath greater than baseline, abdominal discomfort. and though her legs are swollen, not more so than baseline. She has not had a bowel movement in several days, but states she does not feel overtly constipated. She is having no issues with voiding. ROS is unremarkable except as noted above. Objective Vital Signs Date Time Temp Pulse Resp B/P (MAP) Pulse Ox O2 Delivery O2 Flow Rate FiO2 12/06/16 04:00 BiPAP 12/06/16 03:47 36.7 102 20 102/36 (58) 95 Nasal Cannula 2.0 12/06/16 00:43 36.4 98 19 107/70 (82) 94 CPAP 12/06/16 00:15 104/60 (75) 12/05/16 23:59 BiPAP 12/05/16 20:05 36.8 96 22 84/49 (61) 94 Nasal Cannula 4.0 12/05/16 20:00 Nasal Cannula 3.0 12/05/16 16:38 36.9 106 18 72/45 (54) 92 Nasal Cannula 2.0 12/05/16 16:00 Nasal Cannula 2.0 12/05/16 14:00 36.6 111 95/43 (60) 12/05/16 13:45 105 111/49 12/05/16 13:30 108 105/53 12/05/16 13:15 104 86/50 12/05/16 13:00 69 95/73 12/05/16 12:47 36.3 98 16 91/71 (78) 94 Nasal Cannula 3.0 12/05/16 12:45 97 84/62 12/05/16 12:30 95 89/45 12/05/16 12:15 95 100/54 12/05/16 12:00 93 78/57 12/05/16 12:00 Nasal Cannula 2.0 12/05/16 11:45 98 91/71 12/05/16 11:30 86 110/78 12/05/16 11:15 100 92/50 12/05/16 11:00 99 101/50 12/05/16 10:45 102 84/48 12/05/16 10:30 102 99/68 12/05/16 10:15 101 97/46 12/05/16 10:00 100 99/46 12/05/16 09:38 36.6 101 133/92 (106) 12/05/16 08:22 36.8 102 18 81/41 (54) 93 Nasal Cannula 3.0 12/05/16 08:00 Nasal Cannula 2.0 Physical Exam General Appearance: WD/WN, + mild distress, + obese Eyes: normal inspection ENT: hearing grossly normal Respiratory/Chest: lungs clear, no respiratory distress, no accessory muscle use, + decreased breath sounds (secondary to body habitus) Cardiovascular: regular rate, rhythm, + pertinent finding (edema of hands and lower extremities bilaterally) Abdomen: normal bowel sounds, non tender, + pertinent finding (morbid central obesity) Extremities: no calf tenderness, + pedal edema, + slow capillary refill, + swelling, + pertinent finding (evidence of chronic venous stasis bilaterally in lower extremities) 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: alert, oriented x 3, + pertinent finding (agitated) Skin: + rash, + pertinent finding (evidence of fungal infection on underside of pannus, and cellulitis of lower extremities bilaterally) Laboratory Results Results Past 24 Hours Test 12/06/16 05:42 12/06/16 06:43 12/06/16 11:43 12/06/16 16:23 Range/Units White Blood Count 7.41 4.8-10.8 K/uL Red Blood Count 3.06 4.2-5.4 M/uL Hemoglobin 9.4 12.0-16.0 g/dL Hematocrit 31.9 37-47 % Mean Corpuscular Volume 104.2 80-100 fL Mean Corpuscular Hemoglobin 30.7 25-34 pg Mean Corpuscular Hemoglobin Concent 29.5 32-36 g/dl Platelet Count 208 130-400 K/uL Mean Platelet Volume 9.3 7.4-10.4 fL Neutrophils (%) (Auto) 69.6 % Lymphocytes (%) (Auto) 8.6 % Monocytes (%) (Auto) 17.8 % Eosinophils (%) (Auto) 2.4 % Basophils (%) (Auto) 0.4 % Neutrophils # (Auto) 5.15 1.4-6.5 K/uL Lymphocytes # (Auto) 0.64 1.2-3.4 K/uL Monocytes # (Auto) 1.32 0.11-0.59 K/uL Eosinophils # (Auto) 0.18 0-0.5 K/uL Basophils # (Auto) 0.03 0-0.2 K/uL RDW Standard Deviation 80.2 36.4-46.3 fL RDW Coefficient of Variation 21.0 11.5-14.5 % Immature Granulocyte % (Auto) 1.2 % Immature Granulocyte # (Auto) 0.09 0.00-0.02 K/uL Nucleated RBC Absolute Count (auto) 0.19 0-0 K/uL Nucleated Red Blood Cells % 2.6 % Polychromasia 1+ Basophilic Stippling 1+ Anisocytosis PRESENT Stomatocytes 1+ Sodium Level 136 136-145 mmol/L Potassium Level 3.4 3.5-5.1 mmol/L Chloride Level 98 98-107 mmol/L Carbon Dioxide Level 29 21-32 mmol/L Anion Gap 9.0 3-11 mmol/L Blood Urea Nitrogen 14 7-18 mg/dl Creatinine 5.20 0.60-1.20 mg/dl Est Creatinine Clear Calc Drug Dose 15.5 ml/min Estimated GFR () 9.5 Estimated GFR (Non- 8.2 BUN/Creatinine Ratio 2.6 10-20 Random Glucose 88 70-99 mg/dl Calcium Level 8.4 8.5-10.1 mg/dl Bedside Glucose 92 131 147 70-90 mg/dl Test 12/06/16 20:10 Range/Units Bedside Glucose 189 70-90 mg/dl Assessment and Plan 61F with a PMHx of DM2, GERD, COPD, CHF, cellulitis, ESRD on dialysis, and chronic pain presents with neck pain worse on palpation and headaches and a two week history of bilateral hand edema. CT head showed no acute pathology and the headaches have for the most part resolved with Osteopathic manipulation techniques. Cellulitis treatment with Doxycycline, inguinal rash treatment with Nystatin Powder, wound care is on board for management. Dialysis is being provided. The patient has a 2L oxygen requirement, with CPAP use overnight. PT and OT are on board. The patient has significant comorbidities and her prognosis is guarded. Neck spasm / headache - Voltaren gel QID - [place] 1 tab Q4H PRN - Pt gets around 3 tabs in a 24hour period. - Daily osteopathic manipulation performed by Dr Lockhart, OD Bilateral hand edema - likely secondary to third spacing. The edema is acute onset since the AV fistula surgery on the 11/19/16 - Nephrology on board. - Continue 25% Albumin TID in an effort to draw out the fluid from the interstitium. - Continue fluid restricted diet and dialysis. Irritated inguinal folds, likely fungal - Nystatin Powder - Will place pillow between legs as per husbands request. - Position shift/shift in weight q4-6 hours to offload weight on sites - Wound consulted - Continue to monitor. Constipation - Demonstrated by KUB. - Likely contributed to by fluid restriction, decreased mobilization - Likely source of nausea - zofran and compazine ordered PRN Cellulitis -c/w Doxycycline to 100mg BID, Day #4 Anuria - likely from ESRD - bladder scan to check for retention - I&Os Hypotension - manual BP QS more appropriate than automatic machine measurements - Intermittent small bolus of NSS if MAP < 65 or if patient symptomatic. - Pressors not indicated at this time End stage renal disease on dialysis - Patient declined dialysis today as she states she already had 4 sessions this week. - Defer to nephro re: schedule. Diastolic congestive heart failure - AHA low salt diet, 1.2L fluid restriction as per nephro - I&Os, daily weights Type 2 diabetes - Lantus 85 units BID - Novolog 5 correction, 2 carb - ACHS BSG - HbA1B 5.9 (11/12/16) Morbid Obesity - The patient is morbidly obese however with a low albumin and chronic cellulitis of the LE and inguinal folds there is a protein requirement. - Meals limited to 2200 Cals per day with higher protein and fibre content ideally. Boost supplementation held. - Encourage ambulation as tolerated, although patient's body habitus at present prevents this. - Monitor daily weights closely. Currently trending downward, but unsure if this is related to fluid loss, calorie restriction, unreliable bed scale measurements COPD - without current exacerbation - continue tiotropium - duonebs BID Chronic pain - c/w Lyrica 50mg daily GERD - Continue famotidine and pantoprazole VTE Prophylaxis - Heparin 5000 units SQ Q12H Disposition - To med/surg Code: Full resus Resident Physician Supervision Note: I interviewed and examined the patient. Discussed with Dr. Laughlin and agree with findings and plan as documented in the note. Any exceptions or clarifications are listed here: None Documented By: Michael Lockhart headache and neck pain better hand swelling about the same. has not had HD though since we started albumin vitlas noted nad breathing unlabored hand swelling ongoing ~1-2+ headache/neck pain - muscular - had OMT x 2 days helped a lot - ongoing voltaren gel anasarca - since no other methods have improved- giving trial of IV albumin - follow - particularly once she has HD. also high dose vitamin C started by R2 for endothelial dysfunction benefit otherwise as above started to try to discuss discharge planning/goals / etc but pt noted she was too tired to think about it Continued [facility] stay due to: inadequate oral pain control, ambulation difficulties, multiple IV medications needed Discharge planning: correction facility Resident Tracking Resident Involvement: Resident Care Provided Care Provided: Adult Hospital Medicine
[2016-12-06] MEDS: INSULIN ASPART 100 UNITS/ML 3 ML PEN SC SCH ×4 (07:00→20:36)
[2016-12-06] MEDS ORDERED: IRON SUCROSE INJ 100 MG in SYRINGE 0 ML IV ONE (08:00)
[2016-12-06] MEDS ORDERED: HEPARIN SOD (PORCINE) 1000 UNIT/ML 10 ML VIAL IV SCH (08:00)
[2016-12-06] MEDS: HEPARIN SOD (PORCINE) 1000 UNIT/ML 10 ML VIAL IV SCH ×3 (08:00→10:00)
[2016-12-06] MEDS ORDERED: ALBUMIN HUMAN 25% 12.5 GM/50 ML VIAL IV PRN (08:00)
[2016-12-06] MEDS ORDERED: EPOETIN ALFA 10,000 UNITS/ML VIAL IV. SCH (08:00)
[2016-12-06] MEDS: CALCIUM ACETATE 667MG GELCAP PO SCH ×4 (08:11→20:27)
[2016-12-06] MEDS: NYSTATIN POWDER 15GM BTL EXT SCH ×2 (08:12→20:25)
[2016-12-06] MEDS: DICLOFENAC SOD 1% GEL 100 GM TUBE EXT SCH ×4 (08:12→20:26)
[2016-12-06] MEDS: SILVER SULFADIAZINE 1% CR 50 GM JAR EXT SCH (08:12)
[2016-12-06] MEDS: FLUTICASONE/SALMETEROL (ADVAIR) 500/50 INH 14 PUFF INH SCH ×2 (08:13→20:26)
[2016-12-06] MEDS: TIOTROPIUM BROMIDE 5 PUFF/90 MCG INH INH SCH (08:14)
[2016-12-06] MEDS: BOOST GLUCOSE CONTROL PO SCH ×2 (08:14→20:26)
[2016-12-06] MEDS: PANTOprazole SOD 40 MG TAB PO SCH (08:15)
[2016-12-06] MEDS: FAMOTIDINE 20 MG TAB PO SCH (08:15)
[2016-12-06] MEDS: CEROVITE ADV FORMULA TAB PO SCH (08:15)
[2016-12-06] MEDS: ATORVASTATIN 40 MG TAB PO SCH (08:15)
[2016-12-06] MEDS: DOXYCYCLINE HYCLATE 100 MG CAP PO SCH ×2 (08:16→20:29)
[2016-12-06] MEDS: DOCUSATE SODIUM/SENNA 50/8.6MG TAB PO SCH ×2 (08:16→20:29)
[2016-12-06] MEDS: PYRIDOXINE HCL 50 MG TAB PO SCH (08:16)
[2016-12-06] MEDS: ASCORBIC ACID 500 MG TAB PO SCH (08:17)
[2016-12-06] MEDS: CHOLECALCIFEROL 1000 INTER.UNIT TAB PO SCH (08:17)
[2016-12-06] MEDS: ALLOPURINOL 100 MG TAB PO SCH (08:17)
[2016-12-06] MEDS: INSULIN GLARGINE SOLOSTAR 100 UNITS/ML 3 ML PEN SC SCH ×2 (08:18→20:37)
[2016-12-06] MEDS: HEPARIN SOD 5000 UNIT/0.5 ML CARP SQ SCH ×2 (08:20→20:37)
[2016-12-06] MEDS: LIDODERM (LIDOCAINE) PATCH 5% TD SCH (08:20)
[2016-12-06] MEDS: ALBUMIN HUMAN 25% 12.5 GM/50 ML VIAL IV SCH ×3 (08:25→20:42)
[2016-12-06] MEDS: PREGABALIN 50 MG CAP PO SCH (08:25)
[2016-12-06] MEDS ORDERED: NURSING VERBAL MED ORDER ONE (08:45)
[2016-12-06] MEDS: PROCHLORPERAZINE INJ 10 MG in SYRINGE 8 ML IV PRN ×2 (14:31→23:45)
[2016-12-06] MEDS: HYDROmorphone HCL 2 MG TAB PO PRN (17:20)
[2016-12-06] MEDS: NEPHROCAPS PO SCH (20:28)
[2016-12-07] MEDS: CALCIUM ACETATE 667MG GELCAP PO SCH ×4 (04:48→21:45)
[2016-12-07] MEDS: HYDROCODONE/ACETAMI 10/325 TAB PO PRN (04:48)
[2016-12-07 07:22] VITALS: BP 116/77; PULSE 76; TEMP 36.9; O2SAT 97
[2016-12-07 07:23] VITALS: BP 116/69; PULSE 104; TEMP 36.5; O2SAT 93
--- NOTE | 2016-12-07 07:32 | Family Medicine Progress Note ---
Progress Note Date of Service Dec 07, 2016. 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 w/ knowledge management consultant, review of inpatient medication list Patient denies acute overnight events, but states poor sleep because of interruptions including vital checks and the transfer from telemetry to med/ surg breen. She did not have issues with her CPAP last night, and states that she is breathing comfortably without any chest pain. She continues to describe headache today, as well as irritation of the inguinal folds. Her abdominal discomfort has improved since her bowel movements yesterday, but she still feels a little "backed up." Her nausea has greatly improved with the compazine. She is otherwise tolerating diet. Her hand edema has minimal improvement if any. At this time, patient is still declining dialysis, stating she will proceed on her regular days only: Mon, Wed, Fri. ROS otherwise unremarkable except as noted above. Objective Vital Signs Date Time Temp Pulse Resp B/P (MAP) Pulse Ox O2 Delivery O2 Flow Rate FiO2 12/07/16 00:27 BiPAP 2.0 12/06/16 23:38 36.6 105 20 106/66 (79) 91 Nasal Cannula 2.0 12/06/16 22:07 36.8 99 20 96 3.0 12/06/16 21:00 110/70 (83) 12/06/16 20:36 36.8 99 20 117/56 (76) 96 Nasal Cannula 2.0 12/06/16 20:00 Nasal Cannula 3.0 12/06/16 16:39 36.8 100 17 109/60 (76) 92 Nasal Cannula 2.0 12/06/16 16:00 Nasal Cannula 2.0 12/06/16 12:00 Nasal Cannula 2.0 12/06/16 11:46 36.6 96 20 95/50 (65) 94 2.0 12/06/16 08:00 Nasal Cannula 2.0 Physical Exam General Appearance: WD/WN, no apparent distress, + obese Eyes: normal inspection ENT: hearing grossly normal Respiratory/Chest: lungs clear, no respiratory distress, no accessory muscle use, + decreased breath sounds (due to body habitus) Cardiovascular: regular rate, rhythm, no murmur, + pertinent finding (edema of hands and lower extermities bilaterally) Abdomen: normal bowel sounds, non tender, + distended, + pertinent finding ( Large pannus) Extremities: + pedal edema, + slow capillary refill, + swelling 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: alert, normal mood/affect, oriented x 3 Skin: + rash, + pertinent finding (Fungal rash on under side of pannus, evidence of chronic venostasis in LE) Laboratory Results Results Past 24 Hours Test 12/06/16 11:43 12/06/16 16:23 12/06/16 20:10 12/07/16 07:21 Range/Units Bedside Glucose 131 147 189 70-90 mg/dl White Blood Count 8.96 4.8-10.8 K/uL Red Blood Count 3.05 4.2-5.4 M/uL Hemoglobin 9.7 12.0-16.0 g/dL Hematocrit 31.8 37-47 % Mean Corpuscular Volume 104.3 80-100 fL Mean Corpuscular Hemoglobin 31.8 25-34 pg Mean Corpuscular Hemoglobin Concent 30.5 32-36 g/dl Platelet Count 236 130-400 K/uL Mean Platelet Volume 9.1 7.4-10.4 fL RDW Standard Deviation 80.1 36.4-46.3 fL RDW Coefficient of Variation 20.9 11.5-14.5 % Nucleated RBC Absolute Count (auto) 0.18 0-0 K/uL Neutrophils % (Manual) 67.7 % Lymphocytes % (Manual) 6.3 % Monocytes % (Manual) 17.0 % Eosinophils % (Manual) 6.3 % Basophils % (Manual) 0.9 % Myelocytes % 1.8 % Nucleated Red Blood Cells % 2.0 % Neutrophils # (Manual) 6.07 1.4-6.5 K/uL Total Absolute Neutrophils 6.07 1.4-6.5 K/uL Lymphocytes # (Manual) 0.56 1.2-3.4 K/uL Total Absolute Lymphocytes 0.56 1.2-3.4 K/uL Monocytes # (Manual) 1.52 0.11-0.59 K/uL Eosinophils # (Manual) 0.56 0-0.5 K/uL Basophils # (Manual) 0.08 0-0.2 K/uL Myelocytes # 0.16 0-0 K/uL Polychromasia 1+ Anisocytosis PRESENT Sodium Level 136 136-145 mmol/L Potassium Level 3.4 3.5-5.1 mmol/L Chloride Level 98 98-107 mmol/L Carbon Dioxide Level 28 21-32 mmol/L Anion Gap 10.0 3-11 mmol/L Blood Urea Nitrogen 17 7-18 mg/dl Creatinine 7.00 0.60-1.20 mg/dl Est Creatinine Clear Calc Drug Dose 11.6 ml/min Estimated GFR () 6.6 Estimated GFR (Non- 5.7 BUN/Creatinine Ratio 2.3 - Random Glucose 136 70-99 mg/dl Calcium Level 9.9 8.5-10.1 mg/dl Test 12/07/16 07:44 Range/Units Bedside Glucose 134 70-90 mg/dl Assessment and Plan 61F with a PMHx of DM2, GERD, COPD, CHF, cellulitis, ESRD on dialysis, and chronic pain presents with neck pain worse on palpation and headaches and a two week history of bilateral hand edema. CT head showed no acute pathology and the headaches have for the most part resolved with osteopathic manipulation techniques. Cellulitis treatment with Doxycycline, inguinal rash treatment with Nystatin Powder, wound care is on board for management. Dialysis is being provided. The patient has a 2L oxygen requirement, with CPAP use overnight. PT and OT are on board. The patient has significant comorbidities and her prognosis is guarded. Neck spasm / headache - Voltaren gel QID - [place] 1 tab Q4H PRN - Pt gets around 3 tabs in a 24hour period. Bilateral hand edema - Likely secondary to third spacing. The edema is acute onset since the AV fistula surgery on the 11/19/16 - Nephrology on board. - Continue 25% Albumin TID in an effort to draw out the fluid from the interstitium. - Continue fluid restricted diet and dialysis. Irritated inguinal folds, likely fungal - Nystatin Powder - Off load pressure: place pillow between legs and shift position/weight q4-6 hours to relieve stress on sites - Wound consulted - Continue to monitor Constipation - Likely contributed to by fluid restriction, decreased mobilization. - Likely source of abdominal discomfort and nausea - zofran and compazine ordered PRN - Senna scheduled and Miralax PRN Cellulitis -Continue Doxycycline to 100mg BID, Day #5 Anuria - Likely from ESRD - Bladder scan to check for retention PRN - I&Os Hypotension - Manual BP QS - more appropriate than automatic machine measurements - Intermittent small bolus of NSS if MAP < 65 or if patient symptomatic. End stage renal disease on dialysis - Defer scheduling of dialysis to nephro - Trend BMP, particularly potassium as patient has been declining sessions Diastolic congestive heart failure - AHA low salt diet, 1.2L fluid restriction - I&Os, daily weights Type 2 diabetes - Lantus 85 units BID - Novolog 5 correction, 2 carb - ACHS BSG - HbA1B 5.9 (11/12/16) Morbid Obesity - With a low albumin and chronic cellulitis of the LE and inguinal folds, there is a protein requirement. - Meals limited to 2200 Cals per day with higher protein and fibre content ideally. Boost supplementation held. - Encourage ambulation as tolerated, although patient's body habitus at present prevents this. - Monitor daily weights closely. Currently trending downward, but unsure if this is related to fluid loss, calorie restriction, or unreliable bed scale measurements COPD - without current exacerbation - Continue tiotropium & duonebs BID Chronic pain - Continue Lyrica 50mg daily GERD - Continue famotidine and pantoprazole VTE Prophylaxis - Heparin 5000 units SQ Q12H Disposition - Discharge planning ordered - Family to discuss amongst themselves if home is a reasonable option versus SNF. Family meeting may be necessary to discuss feasible/safe options Code: Full resuscitation Resident Physician Supervision Note: I interviewed and examined the patient. Discussed with Dr. Laughlin and agree with findings and plan as documented in the note. Any exceptions or clarifications are listed here: None Documented By: Michael Lockhart feeliing ok headache and neck pain better swelling about the same. notes that she is planning to go home w norah and "he'll take care of me" as dispo planning. also then notes that when norah gets knee surgery they're talking about maybe going somewhere for care when he can't take care of her. dtr present - asked dtr to help lead discussion with family - outlining that with pt's level of need it's worrisome how well her discharge plan will work out for her, but knowing the family, it will be better for them all to discuss together and then discuss w physician rather than starting w physician discussions w just eri. she expressed understanding and willingness to do so vitals noted nad swelling about the same hands ~1-2+ neck pain/headache - imrpoved w OMT and voltaren gel anasarca - due to lack of efficacy with other treatment efforts, giving albumin and high dose vitamin C (endothelial dysfunction) - if doesn't improve after HD however, will likely view as failure and dc dispo - as above - pt was planning on home w , i harbor serious concerns about how well she will do. family to discuss all together and then once they' ve discussed, can better discuss further w physician and case management Continued [facility] stay due to: home environment unsafe for pt Discharge planning: nursing home facility Resident Tracking Resident Involvement: Resident Care Provided Care Provided: Adult Hospital Medicine
[2016-12-07] MEDS: NYSTATIN POWDER 15GM BTL EXT SCH ×2 (08:00→21:46)
[2016-12-07] MEDS: SILVER SULFADIAZINE 1% CR 50 GM JAR EXT SCH (08:00)
[2016-12-07 08:06] LABS: HEMATOCRIT 31.8 % (37-47); MEAN CELL VOLUME 104.3 fL (80-100); MEAN CORPUSCULAR HEMOGLOBIN 31.8 pg (25-34); MEAN CORPUSCULAR HGB CONC 30.5 g/dl (32-36); MEAN PLATELET VOLUME 9.1 fL (7.4-10.4); PLATELET COUNT 236 K/uL (130-400); RED BLOOD COUNT 3.05 M/uL (4.2-5.4); WHITE BLOOD COUNT 8.96 K/uL (4.8-10.8)
[2016-12-07 08:28] LABS: BUN/CREATININE RATIO 2.3 (10-20); CALCIUM 9.9 mg/dl (8.5-10.1); POTASSIUM 3.4 mmol/L (3.5-5.1)
[2016-12-07 09:12] LABS: ANISOCYTOSIS PRESENT; BASO ABS # 0.08 K/uL (0-0.2); BASOPHIL % 0.9 %; COMPLETE YES; EOSINOPHIL % 6.3 %; LYMPH ABS # 0.56 K/uL (1.2-3.4); LYMPHOCYTE % 6.3 %; MYELOCYTE % 1.8 %; NEUTROPHILS % 67.7 %; POLYCHROMASIA 1+
[2016-12-07] MEDS: DOXYCYCLINE HYCLATE 100 MG CAP PO SCH ×2 (09:48→21:45)
[2016-12-07] MEDS: CHOLECALCIFEROL 1000 INTER.UNIT TAB PO SCH (09:48)
[2016-12-07] MEDS: DICLOFENAC SOD 1% GEL 100 GM TUBE EXT SCH ×4 (09:49→21:46)
[2016-12-07] MEDS: FLUTICASONE/SALMETEROL (ADVAIR) 500/50 INH 14 PUFF INH SCH ×2 (09:49→21:47)
[2016-12-07] MEDS: BOOST GLUCOSE CONTROL PO SCH ×2 (09:50→21:45)
[2016-12-07] MEDS: TIOTROPIUM BROMIDE 5 PUFF/90 MCG INH INH SCH (09:50)
[2016-12-07] MEDS: FAMOTIDINE 20 MG TAB PO SCH (09:50)
[2016-12-07] MEDS: PYRIDOXINE HCL 50 MG TAB PO SCH (09:51)
[2016-12-07] MEDS: ALLOPURINOL 100 MG TAB PO SCH (09:51)
[2016-12-07] MEDS: ASCORBIC ACID 500 MG TAB PO SCH (09:52)
[2016-12-07] MEDS: ATORVASTATIN 40 MG TAB PO SCH (09:53)
[2016-12-07] MEDS: DOCUSATE SODIUM/SENNA 50/8.6MG TAB PO SCH ×2 (09:54→21:45)
[2016-12-07] MEDS: PANTOprazole SOD 40 MG TAB PO SCH (09:54)
[2016-12-07] MEDS: CEROVITE ADV FORMULA TAB PO SCH (09:54)
[2016-12-07] MEDS: INSULIN GLARGINE SOLOSTAR 100 UNITS/ML 3 ML PEN SC SCH ×2 (09:58→21:58)
[2016-12-07] MEDS: INSULIN ASPART 100 UNITS/ML 3 ML PEN SC SCH ×4 (09:58→21:48)
[2016-12-07] MEDS: HEPARIN SOD 5000 UNIT/0.5 ML CARP SQ SCH ×2 (09:59→21:58)
[2016-12-07] MEDS: PREGABALIN 50 MG CAP PO SCH (10:02)
[2016-12-07] MEDS: ALBUMIN HUMAN 25% 12.5 GM/50 ML VIAL IV SCH ×3 (10:03→21:54)
[2016-12-07] MEDS: LIDODERM (LIDOCAINE) PATCH 5% TD SCH (10:04)
[2016-12-07] MEDS: POLYETHYLENE (MIRALAX) 17 GM PACK PO PRN (10:12)
[2016-12-07 10:59] VITALS: PULSE 100; O2SAT 94
[2016-12-07] MEDS: HYDROmorphone HCL 2 MG TAB PO PRN (10:59)
[2016-12-07 12:36] VITALS: O2SAT 94
[2016-12-07 15:32] VITALS: BP 95/58; PULSE 98; TEMP 36.7; O2SAT 95
[2016-12-07] MEDS: PROCHLORPERAZINE INJ 10 MG in SYRINGE 8 ML IV PRN (19:38)
[2016-12-07] MEDS: NEPHROCAPS PO SCH (21:47)
[2016-12-07 23:54] VITALS: BP 110/66; PULSE 103; TEMP 37.2; O2SAT 98
[2016-12-08] VITALS (21 sets, daily range): BP systolic 68–134; BP diastolic 32–95; PULSE 79–122; TEMP 36.7–37.1; O2SAT 90–92
[2016-12-08] MEDS: HYDROmorphone HCL 2 MG TAB PO PRN ×2 (03:25→16:06)
[2016-12-08 06:38] LABS: BASO % 0.2 %; BASO ABS # 0.03 K/uL (0-0.2); EOS % 2.8 %; IG% 0.7 %; LYMPH % 5.6 %; LYMPH ABS # 0.69 K/uL (1.2-3.4); MEAN CELL VOLUME 104.7 fL (80-100); MEAN CORPUSCULAR HEMOGLOBIN 32.1 pg (25-34); MEAN CORPUSCULAR HGB CONC 30.6 g/dl (32-36); MEAN PLATELET VOLUME 9.1 fL (7.4-10.4); MONO % 14.8 %; NEUT % 75.9 %; PLATELET COUNT 217 K/uL (130-400); RED BLOOD COUNT 2.96 M/uL (4.2-5.4); WHITE BLOOD COUNT 12.27 K/uL (4.8-10.8)
[2016-12-08 07:15] LABS: ANISOCYTOSIS PRESENT; BUN/CREATININE RATIO 2.6 (10-20); CALCIUM 9.7 mg/dl (8.5-10.1); COMPLETE YES; CREATININE 8.6 mg/dl (0.60-1.20); HYPOCHROMIA PRESENT; POTASSIUM 3.6 mmol/L (3.5-5.1); TOXIC GRANULATION 1+; VACUOLIZATION 1+
[2016-12-08] MEDS: SILVER SULFADIAZINE 1% CR 50 GM JAR EXT SCH (08:00)
[2016-12-08] MEDS: LIDODERM (LIDOCAINE) PATCH 5% TD SCH (08:00)
[2016-12-08] MEDS: NYSTATIN POWDER 15GM BTL EXT SCH ×2 (08:00→20:32)
[2016-12-08] MEDS: BOOST GLUCOSE CONTROL PO SCH (08:00)
[2016-12-08] MEDS ORDERED: ALBUMIN HUMAN 25% 12.5 GM/50 ML VIAL IV PRN (08:15)
[2016-12-08] MEDS ORDERED: EPOETIN ALFA 10,000 UNITS/ML VIAL IV. ONE (08:15)
[2016-12-08] MEDS: PREGABALIN 50 MG CAP PO SCH (08:24)
[2016-12-08] MEDS: FLUTICASONE/SALMETEROL (ADVAIR) 500/50 INH 14 PUFF INH SCH ×2 (08:25→20:29)
[2016-12-08] MEDS: TIOTROPIUM BROMIDE 5 PUFF/90 MCG INH INH SCH (08:25)
[2016-12-08] MEDS: INSULIN ASPART 100 UNITS/ML 3 ML PEN SC SCH ×4 (08:30→20:36)
[2016-12-08] MEDS: HEPARIN SOD 5000 UNIT/0.5 ML CARP SQ SCH ×2 (08:30→20:35)
[2016-12-08] MEDS: INSULIN GLARGINE SOLOSTAR 100 UNITS/ML 3 ML PEN SC SCH ×2 (08:30→20:36)
[2016-12-08] MEDS: PANTOprazole SOD 40 MG TAB PO SCH (08:34)
[2016-12-08] MEDS: CALCIUM ACETATE 667MG GELCAP PO SCH ×4 (08:34→20:41)
[2016-12-08] MEDS: DICLOFENAC SOD 1% GEL 100 GM TUBE EXT SCH ×4 (08:38→20:30)
[2016-12-08] MEDS: HYDROCODONE/ACETAMI 10/325 TAB PO PRN (08:47)
[2016-12-08] MEDS ORDERED: IRON SUCROSE INJ 100 MG in SYRINGE 0 ML IV SCH (09:00)
[2016-12-08] MEDS ORDERED: HEPARIN SOD (PORCINE) 1000 UNIT/ML 10 ML VIAL IV SCH (09:00)
[2016-12-08] MEDS ORDERED: EPOETIN ALFA INJ 12,000 UNITS in SYRINGE 0 ML IV. SCH (09:00)
[2016-12-08] MEDS: ALBUMIN HUMAN 25% 12.5 GM/50 ML VIAL IV SCH (09:54)
--- NOTE | 2016-12-08 12:23 | Progress Note ---
Subjective Date of Service: Dec 08, 2016. 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 w/ instructional consultant, review of inpatient medication list Patient was seen in dialysis, reported bilateral lower extremity a lot fluid oozing from edema area, also reported bilateral hand swelling, which is not new , otherwise no complaining Problem List Medical Problems: (1) Acute respiratory failure with hypoxia and hypercarbia Status: Acute (2) Altered mental status Status: Acute (3) Anasarca Status: Acute (4) Anasarca Status: Acute (5) Bilateral cellulitis of lower leg Status: Acute (6) Bilateral lower leg cellulitis Status: Acute (7) Cellulitis Status: Acute (8) Change in mental status Status: Acute (9) Chronic renal failure Status: Acute (10) CO2 retention Status: Acute (11) Contusion of multiple sites Status: Acute (12) Dehydration Status: Acute (13) Dyspnea on exertion Status: Acute (14) Failure of outpatient treatment Status: Acute (15) Fall Status: Acute (16) Fall Status: Acute (17) Fever Status: Acute (18) Fever Status: Acute (19) Generalized weakness Status: Acute (20) Headache Status: Acute (21) Hypercarbia Status: Acute (22) Hyperkalemia Status: Acute (23) Hypokalemia Status: Acute (24) Hypotension Status: Acute (25) Hypoventilation Status: Acute (26) Hypoxemia Status: Acute (27) Hypoxia Status: Acute (28) Lumbar strain Status: Acute (29) Metabolic acidosis Status: Acute (30) Nail avulsion of toe Status: Acute (31) Obesity Status: Acute (32) Respiratory failure Status: Acute (33) Weakness Status: Acute (34) Weight gain Status: Acute (35) Wrist pain Status: Acute Review of Systems Constitutional: No fever, No chills ENT: No hearing loss, No unusual epistaxis Respiratory: No cough, No sputum, No shortness of breath, No dyspnea on exertion Cardiac: + edema, No chest pain, No orthopnea Abdomen: No pain, No nausea, No diarrhea, No constipation Musculoskeletal: + joint pain Female : No dysuria, No urinary frequency Neurologic: No memory loss, No paralysis Objective Vital Signs Date Time Temp Pulse Resp B/P (MAP) Pulse Ox O2 Delivery O2 Flow Rate FiO2 12/08/16 11:45 97 92/43 12/08/16 11:30 97 95/45 12/08/16 11:15 98 89/43 12/08/16 11:00 100 84/39 12/08/16 10:45 99 94/48 12/08/16 10:35 99 87/41 12/08/16 10:30 79 68/46 12/08/16 10:15 102 77/38 12/08/16 10:00 113 80/32 12/08/16 09:30 105 111/68 12/08/16 09:17 105 104/55 12/08/16 08:13 Nasal Cannula 2.0 12/08/16 07:25 36.7 111 20 96/52 (67) 90 Room Air 12/08/16 00:40 Nasal Cannula 2.0 12/07/16 23:54 37.2 103 18 110/66 (81) 98 Nasal Cannula 3.0 12/07/16 16:00 Nasal Cannula 2.0 12/07/16 15:32 36.7 98 20 95/58 (70) 95 Nasal Cannula 2.0 12/07/16 12:36 94 Nasal Cannula 2.0 Physical Exam General Appearance: WD/WN, no apparent distress, + obese, + pertinent finding ( looked tired) Eyes: normal inspection, PERRL, EOMI, sclerae normal ENT: normal ENT inspection, hearing grossly normal, pharynx normal Neck: supple, no adenopathy, thyroid normal, no JVD, no carotid bruits, trachea midline Respiratory/Chest: chest non-tender, normal breath sounds, no respiratory distress, no accessory muscle use, + decreased breath sounds Cardiovascular: regular rate, rhythm, no gallop, no JVD, no murmur, + pertinent finding (significant lower extremity edema and oozing of the fluid) Abdomen: normal bowel sounds, non tender, soft, no organomegaly, no pulsatile mass Extremities: normal range of motion, non-tender, normal inspection, no pedal edema, no calf tenderness, pelvis stable, + swelling, + pertinent finding ( bilateral lower extremity swelling and erythema, and has the dressing on,) 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: clamp operator II-XII nml as tested, no motor/sensory deficits, alert, normal mood/affect, oriented x 3 Skin: normal color, warm/dry, no rash Lymphatic: no adenopathy Laboratory Results Last 24 Hours Test 12/07/16 16:27 12/07/16 20:11 12/08/16 06:21 12/08/16 07:51 Bedside Glucose 93 mg/dl 130 mg/dl 142 mg/dl White Blood Count 12.27 K/uL Red Blood Count 2.96 M/uL Hemoglobin 9.5 g/dL Hematocrit 31.0 % Mean Corpuscular Volume 104.7 fL Mean Corpuscular Hemoglobin 32.1 pg Mean Corpuscular Hemoglobin Concent 30.6 g/dl Platelet Count 217 K/uL Mean Platelet Volume 9.1 fL Neutrophils (%) (Auto) 75.9 % Lymphocytes (%) (Auto) 5.6 % Monocytes (%) (Auto) 14.8 % Eosinophils (%) (Auto) 2.8 % Basophils (%) (Auto) 0.2 % Neutrophils # (Auto) 9.30 K/uL Lymphocytes # (Auto) 0.69 K/uL Monocytes # (Auto) 1.82 K/uL Eosinophils # (Auto) 0.34 K/uL Basophils # (Auto) 0.03 K/uL RDW Standard Deviation 78.7 fL RDW Coefficient of Variation 20.9 % Immature Granulocyte % (Auto) 0.7 % Immature Granulocyte # (Auto) 0.09 K/uL Nucleated RBC Absolute Count (auto) 0.14 K/uL Nucleated Red Blood Cells % 1.1 % Toxic Granulation 1+ Toxic Vacuolation 1+ Hypochromasia PRESENT Anisocytosis PRESENT Macrocytosis PRESENT Sodium Level 137 mmol/L Potassium Level 3.6 mmol/L Chloride Level 98 mmol/L Carbon Dioxide Level 29 mmol/L Anion Gap 10.0 mmol/L Blood Urea Nitrogen 22 mg/dl Creatinine 8.60 mg/dl Est Creatinine Clear Calc Drug Dose 9.4 ml/min Estimated GFR () 5.2 Estimated GFR (Non- 4.4 BUN/Creatinine Ratio 2.6 Random Glucose 136 mg/dl Calcium Level 9.7 mg/dl Test 12/08/16 11:40 Bedside Glucose 118 mg/dl Assessment and Plan 61F with admitted on 12/03/2016 because of neck pain worse on palpation and headaches and a two week history of bilateral hand edema. After admission CT head showed no acute pathology and the headaches have for the most part resolved with osteopathic manipulation techniques. PMHx of DM2, GERD, COPD, CHF, cellulitis, ESRD on dialysis, and chronic pain Neck spasm / headache, better and stable, continue Voltaren gel QID, and continue [place] 1 tab Q4H PRN Bilateral hand edema, Likely secondary to third spacing. The edema is acute onset since the AV fistula surgery on the 11/19/16, Nephrology on board. Has been on 25% Albumin TID, day will be last day per order, Continue fluid restricted diet and dialysis. Irritated inguinal folds, likely fungal, continue Nystatin Powder Bilateral lower extremity Cellulitis, continue Doxycycline to 100mg BID, Day #6 , continue wound care Hypotension, blood pressure improved to 90, will follow-up End stage renal disease on dialysis Diastolic congestive heart failure, stable continue current care Type 2 diabetes, stable continue current care Morbid Obesity, COPD, Chronic pain, GERD: Stable continue current care VTE Prophylaxis - Heparin 5000 units SQ Q12H We strongly recommend to discharge to half-way facility, Family to discuss amongst themselves if home is a reasonable option versus SNF. We'll call to families for mare communication Continued [facility] stay due to: home environment unsafe for pt Discharge planning: half-way facility
[2016-12-08] MEDS: HEPARIN SOD (PORCINE) 1000 UNIT/ML 10 ML VIAL IV SCH ×3 (12:46→18:34)
[2016-12-08] MEDS: CEROVITE ADV FORMULA TAB PO SCH (14:01)
[2016-12-08] MEDS: PYRIDOXINE HCL 50 MG TAB PO SCH (14:02)
[2016-12-08] MEDS: CHOLECALCIFEROL 1000 INTER.UNIT TAB PO SCH (14:02)
[2016-12-08] MEDS: DOXYCYCLINE HYCLATE 100 MG CAP PO SCH ×2 (14:02→20:30)
[2016-12-08] MEDS: ATORVASTATIN 40 MG TAB PO SCH (14:03)
[2016-12-08] MEDS: ALLOPURINOL 100 MG TAB PO SCH (14:03)
[2016-12-08] MEDS: FAMOTIDINE 20 MG TAB PO SCH (14:03)
[2016-12-08] MEDS: DOCUSATE SODIUM/SENNA 50/8.6MG TAB PO SCH ×2 (14:03→20:30)
[2016-12-08] MEDS: ASCORBIC ACID 500 MG TAB PO SCH (14:04)
[2016-12-08] MEDS: POLYETHYLENE (MIRALAX) 17 GM PACK PO PRN (14:38)
[2016-12-08] MEDS ORDERED: BOOST GLUCOSE CONTROL PO SCH (15:30)
[2016-12-08] MEDS: PROCHLORPERAZINE INJ 10 MG in SYRINGE 8 ML IV PRN (17:04)
--- NOTE | 2016-12-08 17:18 | Dialysis Progress Note ---
Nephrology Dialysis Note Date of Service: Dec 08, 2016. Subjective seen on HD this am about 1010; tolerating tx so far w/o need for albumin; goal UF at this point 2L; her MS has been clearer today Objective Date Time Temp Pulse Resp B/P (MAP) Pulse Ox O2 Delivery O2 Flow Rate FiO2 12/08/16 15:39 37.0 115 20 106/74 (85) 92 Nasal Cannula 2.0 12/08/16 13:31 37.0 110 134/95 (108) 12/08/16 13:00 122 99/49 12/08/16 12:45 112 86/34 12/08/16 12:30 93 104/82 12/08/16 12:15 101 98/46 12/08/16 12:00 99 105/47 12/08/16 11:45 97 92/43 12/08/16 11:30 97 95/45 12/08/16 11:15 98 89/43 12/08/16 11:00 100 84/39 12/08/16 10:45 99 94/48 12/08/16 10:35 99 87/41 12/08/16 10:30 79 68/46 12/08/16 10:15 102 77/38 12/08/16 10:00 113 80/32 12/08/16 09:30 105 111/68 12/08/16 09:17 105 104/55 12/08/16 09:00 37.1 110 105/56 (72) 12/08/16 08:13 Nasal Cannula 2.0 12/08/16 07:25 36.7 111 20 96/52 (67) 90 Room Air 12/08/16 00:40 Nasal Cannula 2.0 12/07/16 23:54 37.2 103 18 110/66 (81) 98 Nasal Cannula 3.0 Physical Exam: General Appearance: WD/WN, no apparent distress, + obese, + pertinent finding ( on 02nc, tired) Eyes: EOMI ENT: hearing grossly normal Neck: supple Respiratory/Chest: lungs clear, no respiratory distress, no accessory muscle use, + decreased breath sounds Cardiovascular: + tachycardia, + pertinent finding (anasarca) Abdomen: normal bowel sounds, non tender, soft, + pertinent finding (no fernandez) Extremities: + inflammation (chronic venous stasis changes), + pedal edema, + slow capillary refill, + swelling, + pertinent finding (AVF w/ susan, minimal erythema) Neurologic/Psych: alert, normal mood/affect, oriented x 3, + motor weakness Skin: + rash Current Inpatient Medications Medications (Trade) Dose Ordered Sig/Duyen Route Start Time Stop Time Status Last Admin Dose Admin Miscellaneous (Iv Fluids Completed) 1 ea PRN PRN N/A 12/03/16 15:30 12/03/17 15:29 Heparin Sodium (Porcine) (Heparin Sq 5000 Unit/0.5ml) 5,000 unit Q12 SQ 12/03/16 21:00 01/02/17 20:59 12/08/16 08:30 5,000 UNIT Acetaminophen (Tylenol Tab) 650 mg Q4H PRN PO 12/03/16 15:45 01/02/17 15:44 12/05/16 01:46 650 MG Nitroglycerin (Nitrostat Tab) 0.4 mg UD PRN SL 12/03/16 15:45 01/02/17 15:44 Allopurinol (Zyloprim Tab) 100 mg DAILY PO 12/04/16 09:00 01/03/17 08:59 12/08/16 14:03 100 MG Atorvastatin Calcium (Lipitor Tab) 40 mg DAILY PO 12/04/16 09:00 01/03/17 08:59 12/08/16 14:03 40 MG Calcium Acetate (Phoslo Cap) 667 mg ACHS PO 12/03/16 21:00 01/02/17 20:59 12/08/16 17:05 667 MG Cholecalciferol (Vitamin D Tab) 1,000 inter.unit DAILY PO 12/04/16 09:00 01/03/17 08:59 12/08/16 14:02 1,000 INTER.UNIT Famotidine (Pepcid Tab) 20 mg DAILY PO 12/04/16 09:00 01/03/17 08:59 12/08/16 14:03 20 MG Salmeterol Xinafoate/ Fluticasone (Advair Diskus 500/50 Inh) 1 puff BID INH 12/03/16 21:00 01/02/17 20:59 12/08/16 08:25 1 PUFF Lidocaine (Lidoderm Patch 5%) 1 patch QAM TD 12/04/16 09:00 01/03/17 08:59 Multivitamins/ Minerals (Multivitamin W/ Minerals Tab) 1 tab DAILY PO 12/04/16 09:00 01/03/17 08:59 12/08/16 14:01 1 TAB Pantoprazole Sodium (Protonix Tab) 40 mg DAILY PO 12/04/16 09:00 01/03/17 08:59 12/08/16 08:34 40 MG Pregabalin (Lyrica Cap) 50 mg DAILY PO 12/04/16 09:00 01/03/17 08:59 12/08/16 08:24 50 MG Pyridoxine HCl (Vitamin B-6 Tab) 200 mg DAILY PO 12/04/16 09:00 01/03/17 08:59 12/08/16 14:02 200 MG Silver Sulfadiazine (Silvadene 1% Crm 50GM Jar) 1 appln DAILY EXT 12/04/16 09:00 01/03/17 08:59 12/06/16 08:12 1 APPLN Tiotropium [place] (Spiriva Handihaler Inhaler) 1 puff DAILY INH 12/04/16 09:00 01/03/17 08:59 12/08/16 08:25 1 PUFF Miscellaneous (Remove Lidoderm Patch) 1 ea DAILY@21 N/A 12/03/16 21:00 01/02/17 20:59 Insulin Aspart (novoLOG ASPART) SLIDING SCALE If C... ACHS SC 12/03/16 21:00 01/02/17 20:59 12/08/16 14:36 24 UNITS Glucose (Glucose 40% Gel) 15-30 GRAMS 15 GRAMS... UD PRN PO 12/03/16 17:30 01/02/17 17:29 Glucose (Glucose Chew Tab) 4-8 Tablets 4 Tabl... UD PRN PO 12/03/16 17:30 01/02/17 17:29 Dextrose (Dextrose 50% 50ML Syringe) 25-50ML OF 50% DW IV FOR... UD PRN IV 12/03/16 17:30 01/02/17 17:29 Glucagon (Glucagon Inj) 1 mg UD PRN SQ 12/03/16 17:30 01/02/17 17:29 Diclofenac Sodium (Voltaren 1% Top Gel) 1 appln QID EXT 12/03/16 21:00 01/02/17 20:59 12/08/16 17:06 1 APPLN Acetaminophen/ Hydrocodone Bitart (Maynard 10/325 Tab) 1 tab Q4H PRN PO 12/03/16 18:00 12/17/16 17:59 12/08/16 08:47 1 TAB Hydromorphone HCl (Dilaudid Tab) 2 mg Q4H PRN PO 12/03/16 18:00 12/17/16 17:59 12/08/16 16:06 2 MG Vitamin B Complex/ Vit C/Folic Acid (Nephrocaps) 1 cap QPM PO 12/04/16 21:00 01/03/17 08:59 12/07/16 21:47 1 CAP Senna/Docusate Sodium (Senokot S Tab) 1 tab BID PO 12/04/16 21:00 01/03/17 20:59 12/08/16 14:03 1 TAB Doxycycline Hyclate (Vibramycin Cap) 100 mg BID PO 12/04/16 21:00 12/14/16 08:59 12/08/16 14:02 100 MG Nystatin (Mycostatin Powder) 1 appln BID EXT 12/04/16 21:00 01/03/17 20:59 12/07/16 21:46 1 APPLN Ascorbic Acid (Vitamin C Tab) 1,000 mg QAM PO 12/06/16 09:00 01/05/17 08:59 12/08/16 14:04 1,000 MG Insulin Glargine (Lantus Solostar Pen) 30 units BID SC 12/05/16 21:00 01/02/17 20:59 12/08/16 08:30 30 UNITS Ondansetron HCl (Zofran Odt) 4 mg Q4H PRN PO 12/05/16 17:15 01/04/17 17:14 12/06/16 08:24 4 MG Polyethylene (Miralax Powder Packet) 17 gm DAILY PRN PO 12/05/16 17:30 01/04/17 17:29 12/08/16 14:38 17 GM Albumin Human (Albumin 25%) 12.5 gm UD PRN IV 12/06/16 08:00 12/09/16 07:59 Miconazole Nitrate (Desenex Powder) 1 appln PRN PRN EXT 12/06/16 09:00 01/05/17 08:59 Prochlorperazine Edisylate 10 mg/ Syringe 10 ml @ 5 mls/min Q6 PRN IV 12/06/16 13:15 01/05/17 13:14 12/08/16 17:04 5 MLS/MIN Albumin Human (Albumin 25%) 12.5 gm UD PRN IV 12/08/16 08:15 12/08/16 23:59 Enteral Nutritional Formula (Prosource No Carb) 30 ml BIDM PO 12/08/16 17:30 01/07/17 17:29 Last 24 Hours Test 12/07/16 20:11 12/08/16 06:21 12/08/16 07:51 12/08/16 11:40 Bedside Glucose 130 mg/dl 142 mg/dl 118 mg/dl White Blood Count 12.27 K/uL Red Blood Count 2.96 M/uL Hemoglobin 9.5 g/dL Hematocrit 31.0 % Mean Corpuscular Volume 104.7 fL Mean Corpuscular Hemoglobin 32.1 pg Mean Corpuscular Hemoglobin Concent 30.6 g/dl Platelet Count 217 K/uL Mean Platelet Volume 9.1 fL Neutrophils (%) (Auto) 75.9 % Lymphocytes (%) (Auto) 5.6 % Monocytes (%) (Auto) 14.8 % Eosinophils (%) (Auto) 2.8 % Basophils (%) (Auto) 0.2 % Neutrophils # (Auto) 9.30 K/uL Lymphocytes # (Auto) 0.69 K/uL Monocytes # (Auto) 1.82 K/uL Eosinophils # (Auto) 0.34 K/uL Basophils # (Auto) 0.03 K/uL RDW Standard Deviation 78.7 fL RDW Coefficient of Variation 20.9 % Immature Granulocyte % (Auto) 0.7 % Immature Granulocyte # (Auto) 0.09 K/uL Nucleated RBC Absolute Count (auto) 0.14 K/uL Nucleated Red Blood Cells % 1.1 % Toxic Granulation 1+ Toxic Vacuolation 1+ Hypochromasia PRESENT Anisocytosis PRESENT Macrocytosis PRESENT Sodium Level 137 mmol/L Potassium Level 3.6 mmol/L Chloride Level 98 mmol/L Carbon Dioxide Level 29 mmol/L Anion Gap 10.0 mmol/L Blood Urea Nitrogen 22 mg/dl Creatinine 8.60 mg/dl Est Creatinine Clear Calc Drug Dose 9.4 ml/min Estimated GFR () 5.2 Estimated GFR (Non- 4.4 BUN/Creatinine Ratio 2.6 Random Glucose 136 mg/dl Calcium Level 9.7 mg/dl Test 12/08/16 16:40 Bedside Glucose 96 mg/dl Assessment & Plan 61 y/o F w/ ESRD admitted from [facility] on 12/03 for hypotension, uncontrolled pain. ESRD -f/u tx today >> so far no albumin needed; on large dialyzer for longer tx; will reorder again in am as we are working to optimize volume status Labile blood pressures -she has chronically lower blood pressures w/ SBP often 80-100s and at baseline -no BP meds currently; bp seems to be higher w/ manual checks -albumin w/ HD to optimize uf Anemia of chronic disease -epo w/ HD; iron studies show need for venofer as well and will give again today Appreciate consult; will follow with you.
[2016-12-08] MEDS: PROSOURCE NOCARB 30ML/PKT PO SCH ×2 (17:30→18:33)
[2016-12-08] MEDS: MICONAZOLE NITRATE POWDER 43 GM EXT PRN (20:32)
[2016-12-08] MEDS: NEPHROCAPS PO SCH (20:32)
[2016-12-09] MEDS: SIMETHICONE 80 MG CHEW PO PRN (03:23)
[2016-12-09] MEDS: HYDROCODONE/ACETAMI 10/325 TAB PO PRN (03:23)
[2016-12-09 07:08] VITALS: BP 86/42; PULSE 101; TEMP 36.7; O2SAT 96
[2016-12-09 08:44] LABS: BASO % 0.5 %; BASO ABS # 0.07 K/uL (0-0.2); EOS % 1.6 %; HEMATOCRIT 32.9 % (37-47); IG% 1.7 %; LYMPH % 8.5 %; LYMPH ABS # 1.18 K/uL (1.2-3.4); MEAN CELL VOLUME 106.5 fL (80-100); MEAN CORPUSCULAR HEMOGLOBIN 31.4 pg (25-34); MEAN CORPUSCULAR HGB CONC 29.5 g/dl (32-36); MEAN PLATELET VOLUME 9.6 fL (7.4-10.4); MONO % 14.1 %; NEUT % 73.6 %; PLATELET COUNT 227 K/uL (130-400); RED BLOOD COUNT 3.09 M/uL (4.2-5.4); WHITE BLOOD COUNT 13.94 K/uL (4.8-10.8)
[2016-12-09] MEDS: LIDODERM (LIDOCAINE) PATCH 5% TD SCH (09:04)
[2016-12-09] MEDS: SILVER SULFADIAZINE 1% CR 50 GM JAR EXT SCH (09:04)
[2016-12-09] MEDS: NYSTATIN POWDER 15GM BTL EXT SCH ×2 (09:04→20:00)
[2016-12-09] MEDS: CEROVITE ADV FORMULA TAB PO SCH (09:09)
[2016-12-09] MEDS: ALLOPURINOL 100 MG TAB PO SCH (09:09)
[2016-12-09] MEDS: ATORVASTATIN 40 MG TAB PO SCH (09:09)
[2016-12-09] MEDS: PANTOprazole SOD 40 MG TAB PO SCH (09:09)
[2016-12-09] MEDS: DOCUSATE SODIUM/SENNA 50/8.6MG TAB PO SCH ×2 (09:09→20:00)
[2016-12-09] MEDS: DOXYCYCLINE HYCLATE 100 MG CAP PO SCH ×2 (09:10→22:21)
[2016-12-09] MEDS: FAMOTIDINE 20 MG TAB PO SCH (09:10)
[2016-12-09] MEDS: PYRIDOXINE HCL 50 MG TAB PO SCH (09:10)
[2016-12-09] MEDS: CHOLECALCIFEROL 1000 INTER.UNIT TAB PO SCH (09:10)
[2016-12-09] MEDS: CALCIUM ACETATE 667MG GELCAP PO SCH ×4 (09:10→22:00)
[2016-12-09] MEDS: FLUTICASONE/SALMETEROL (ADVAIR) 500/50 INH 14 PUFF INH SCH ×2 (09:11→23:27)
[2016-12-09] MEDS: ASCORBIC ACID 500 MG TAB PO SCH (09:11)
[2016-12-09] MEDS: DICLOFENAC SOD 1% GEL 100 GM TUBE EXT SCH ×4 (09:11→22:19)
[2016-12-09] MEDS: PROSOURCE NOCARB 30ML/PKT PO SCH ×2 (09:11→17:00)
[2016-12-09] MEDS: HEPARIN SOD 5000 UNIT/0.5 ML CARP SQ SCH ×2 (09:17→22:37)
[2016-12-09] MEDS: INSULIN ASPART 100 UNITS/ML 3 ML PEN SC SCH ×4 (09:17→22:37)
[2016-12-09] MEDS: INSULIN GLARGINE SOLOSTAR 100 UNITS/ML 3 ML PEN SC SCH ×2 (09:17→22:36)
[2016-12-09] MEDS: PREGABALIN 50 MG CAP PO SCH (09:18)
[2016-12-09 09:19] LABS: ANISOCYTOSIS PRESENT; COMPLETE YES; HYPERSEGMENTED POLYS 1+
[2016-12-09 09:20] LABS: BUN/CREATININE RATIO 2.5 (10-20); C-REACTIVE PROTEIN 18.4 mg/dl (0-0.29); CALCIUM 9.5 mg/dl (8.5-10.1); CREATININE 6.2 mg/dl (0.60-1.20); PHOSPHORUS 1.7 mg/dl (2.5-4.9); POTASSIUM 3.5 mmol/L (3.5-5.1); PREALBUMIN 7.2 mg/dl (20-40)
[2016-12-09 10:11] VITALS: BP 106/64
[2016-12-09] MEDS: TIOTROPIUM BROMIDE 5 PUFF/90 MCG INH INH SCH (11:15)
--- NOTE | 2016-12-09 11:25 | Progress Note ---
Subjective Date of Service: Dec 09, 2016. Subjective Pt evaluation today including: conversation w/ patient, conversation w/ family , physical exam, chart review, lab review, review of studies, conversation w/ knowledge management consultant, review of inpatient medication list Sitting up in chair, complaining a lot of fluid oozing in lower extremities, middle of buttock cleft area has open wound and abimael posterior thigh area has has open wound and minimal bleeding Thirsty because on fluid restriction Problem List Medical Problems: (1) Acute respiratory failure with hypoxia and hypercarbia Status: Acute (2) Altered mental status Status: Acute (3) Anasarca Status: Acute (4) Anasarca Status: Acute (5) Bilateral cellulitis of lower leg Status: Acute (6) Bilateral lower leg cellulitis Status: Acute (7) Cellulitis Status: Acute (8) Change in mental status Status: Acute (9) Chronic renal failure Status: Acute (10) CO2 retention Status: Acute (11) Contusion of multiple sites Status: Acute (12) Dehydration Status: Acute (13) Dyspnea on exertion Status: Acute (14) Failure of outpatient treatment Status: Acute (15) Fall Status: Acute (16) Fall Status: Acute (17) Fever Status: Acute (18) Fever Status: Acute (19) Generalized weakness Status: Acute (20) Headache Status: Acute (21) Hypercarbia Status: Acute (22) Hyperkalemia Status: Acute (23) Hypokalemia Status: Acute (24) Hypotension Status: Acute (25) Hypoventilation Status: Acute (26) Hypoxemia Status: Acute (27) Hypoxia Status: Acute (28) Lumbar strain Status: Acute (29) Metabolic acidosis Status: Acute (30) Nail avulsion of toe Status: Acute (31) Obesity Status: Acute (32) Respiratory failure Status: Acute (33) Weakness Status: Acute (34) Weight gain Status: Acute (35) Wrist pain Status: Acute Review of Systems Constitutional: + weakness, No fever, No chills, No sweats, No weight loss, No fatigue, No problem reported Eyes: No worsening of vision, No eye pain, No redness, No discharge, No diplopia ENT: No hearing loss, No unusual epistaxis, No nasal symptoms, No sore throat, No tinnitus, No dental problems, No trouble swallowing Respiratory: No cough, No sputum, No wheezing, No shortness of breath, No dyspnea on exertion, No dyspnea at rest, No hemoptysis Cardiac: No chest pain, No orthopnea, No PND, No edema, No claudication, No palpitations Abdomen: No pain, No nausea, No vomiting, No diarrhea, No constipation Musculoskeletal: No joint pain, No muscle pain, No swelling, No calf pain Female : No dysuria, No urinary frequency, No hematuria, No incontinence, No abnormal vaginal bleeding, No vaginal discharge Neurologic: No memory loss, No paralysis, No weakness, No numbness/tingling, No vertigo, No balance problems Psychiatric: No depression symptoms, No anhedonism, No anxiety, No insomnia, No substance abuse Heme: No abnormal bleeding/bruising, No clotting problems, No swollen lymph nodes, No night sweats Endo: + excessive thirst, No fatigue, No excessive urination Skin: + see HPI, + rash, No itch, No new/changing skin lesions, No color change , No bleeding Objective Vital Signs Date Time Temp Pulse Resp B/P (MAP) Pulse Ox O2 Delivery O2 Flow Rate FiO2 12/09/16 10:11 106/64 (78) 12/09/16 08:20 Room Air 12/09/16 07:08 36.7 101 18 86/42 (57) 96 Nasal Cannula 2.0 12/09/16 00:00 Nasal Cannula 3.0 BiPAP 12/08/16 23:10 37.1 114 18 104/63 (77) 92 Nasal Cannula 3.0 12/08/16 20:00 Nasal Cannula 3.0 BiPAP 12/08/16 16:00 Nasal Cannula 3.0 12/08/16 15:39 37.0 115 20 106/74 (85) 92 Nasal Cannula 2.0 12/08/16 13:31 37.0 110 134/95 (108) 12/08/16 13:00 122 99/49 12/08/16 12:45 112 86/34 12/08/16 12:30 93 104/82 12/08/16 12:15 101 98/46 12/08/16 12:00 99 105/47 12/08/16 11:45 97 92/43 12/08/16 11:30 97 95/45 Physical Exam General Appearance: WD/WN, no apparent distress, + obese Eyes: normal inspection, PERRL, EOMI, sclerae normal ENT: normal ENT inspection, hearing grossly normal, pharynx normal Neck: supple, no adenopathy, thyroid normal, no JVD, no carotid bruits, trachea midline Respiratory/Chest: chest non-tender, normal breath sounds, no respiratory distress, no accessory muscle use, + decreased breath sounds Cardiovascular: regular rate, rhythm, no edema, no gallop, no JVD, no murmur Abdomen: normal bowel sounds, non tender, soft, no organomegaly, no pulsatile mass Extremities: normal range of motion, non-tender, normal inspection, no pedal edema, no calf tenderness, normal capillary refill, pelvis stable 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: 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, no motor/sensory deficits, alert, normal mood/affect, oriented x 3 Skin: normal color, warm/dry, no rash, + pertinent finding (lot of fluid oozing in lower extremities, local is red, edematous, , middle of buttock cleft area has open wound with no draiange, and abimael posterior thigh area has has open wound and minimal bleeding) Lymphatic: no adenopathy Laboratory Results Last 24 Hours Test 12/08/16 11:40 12/08/16 16:40 12/08/16 20:01 12/09/16 08:09 Bedside Glucose 118 mg/dl 96 mg/dl 140 mg/dl White Blood Count 13.94 K/uL Red Blood Count 3.09 M/uL Hemoglobin 9.7 g/dL Hematocrit 32.9 % Mean Corpuscular Volume 106.5 fL Mean Corpuscular Hemoglobin 31.4 pg Mean Corpuscular Hemoglobin Concent 29.5 g/dl Platelet Count 227 K/uL Mean Platelet Volume 9.6 fL Neutrophils (%) (Auto) 73.6 % Lymphocytes (%) (Auto) 8.5 % Monocytes (%) (Auto) 14.1 % Eosinophils (%) (Auto) 1.6 % Basophils (%) (Auto) 0.5 % Neutrophils # (Auto) 10.26 K/uL Lymphocytes # (Auto) 1.18 K/uL Monocytes # (Auto) 1.97 K/uL Eosinophils # (Auto) 0.22 K/uL Basophils # (Auto) 0.07 K/uL RDW Standard Deviation 80.7 fL RDW Coefficient of Variation 21.0 % Immature Granulocyte % (Auto) 1.7 % Immature Granulocyte # (Auto) 0.24 K/uL Nucleated RBC Absolute Count (auto) 0.35 K/uL Nucleated Red Blood Cells % 2.5 % Hypersegmented Polys 1+ Anisocytosis PRESENT Macrocytosis PRESENT Sodium Level 135 mmol/L Potassium Level 3.5 mmol/L Chloride Level 97 mmol/L Carbon Dioxide Level 31 mmol/L Anion Gap 7.0 mmol/L Blood Urea Nitrogen 15 mg/dl Creatinine 6.20 mg/dl Est Creatinine Clear Calc Drug Dose 13.0 ml/min Estimated GFR () 7.6 Estimated GFR (Non- 6.6 BUN/Creatinine Ratio 2.5 Random Glucose 203 mg/dl Calcium Level 9.5 mg/dl Phosphorus Level 1.7 mg/dl C-Reactive Protein 18.40 mg/dl Prealbumin 7.2 mg/dl Vitamin B12 Level 1361 pg/mL 25-Hydroxy Vitamin D Total 38.0 ng/ml Assessment and Plan 61F with admitted on 12/03/2016 because of neck pain worse on palpation and headaches and a two week history of bilateral hand edema. After admission CT head showed no acute pathology and the headaches have for the most part resolved with osteopathic manipulation techniques. PMHx of DM2, GERD, COPD, CHF, cellulitis, ESRD on dialysis, and chronic pain Neck spasm / headache, better / resolving, continue Voltaren gel QID, and continue [place] 1 tab Q4H PRN Bilateral hand edema, Likely secondary to third spacing. The edema is acute onset since the AV fistula surgery on the 11/19/16, Nephrology on board. Bilateral lower ext edema with skin erythema middle of buttock cleft area has open wound and abimael posterior thigh area has has open wound and minimal bleeding Consult wound care, and dressed change for the lower extremities is 3 times a day and every hour as needed Has been on 25% Albumin TID, day will be last day per order, Continue fluid restricted diet and dialysis. inguinal folds erythema, likely fungal, continue Nystatin Powder Bilateral lower extremity Cellulitis, continue Doxycycline to 100mg BID, Day #7 , continue wound care, requested formal consult End stage renal disease on dialysis Hypophosphatemia: Discussed with her renal, hold today's phos binding and follow-up tomorrow morning lab Diastolic congestive heart failure, stable continue current care, encourage patient to continue fluid restriction to 1200ml daily Type 2 diabetes, stable continue current care Morbid Obesity, COPD, Chronic pain, GERD: Stable continue current care VTE Prophylaxis - Heparin 5000 units SQ Q12H Patient and family agrees and if placement, showcase maker work on Continued [facility] stay due to: home environment unsafe for pt Discharge planning: assisted facility
[2016-12-09] MEDS: PROCHLORPERAZINE INJ 10 MG in SYRINGE 8 ML IV PRN (12:58)
[2016-12-09 15:17] VITALS: BP 106/67; PULSE 106; TEMP 36.6; O2SAT 93
[2016-12-09] MEDS: NEPHROCAPS PO SCH (22:22)
[2016-12-10] VITALS (24 sets, daily range): BP systolic 81–132; BP diastolic 39–67; PULSE 90–115; TEMP 36.7–37.1; O2SAT 93–99
[2016-12-10] MEDS: CALCIUM ACETATE 667MG GELCAP PO SCH ×2 (06:09→06:30)
[2016-12-10 06:30] LABS: HEMATOCRIT 33.9 % (37-47); MEAN CELL VOLUME 105.9 fL (80-100); MEAN CORPUSCULAR HEMOGLOBIN 31.6 pg (25-34); MEAN CORPUSCULAR HGB CONC 29.8 g/dl (32-36); MEAN PLATELET VOLUME 9.7 fL (7.4-10.4); PLATELET COUNT 251 K/uL (130-400); WHITE BLOOD COUNT 13.76 K/uL (4.8-10.8)
[2016-12-10 07:03] LABS: ANISOCYTOSIS PRESENT; BASO % 0.6 %; BASO ABS # 0.08 K/uL (0-0.2); COMPLETE YES; EOS % 2.9 %; IG% 2.9 %; LYMPH % 11.6 %; MONO % 11.6 %; NEUT % 70.4 %; TOXIC GRANULATION 1+
[2016-12-10 07:04] LABS: BUN/CREATININE RATIO 3.1 (10-20); CALCIUM 9.9 mg/dl (8.5-10.1); CREATININE 7.7 mg/dl (0.60-1.20); MAGNESIUM 2.3 mg/dl (1.8-2.4); PHOSPHORUS 1.5 mg/dl (2.5-4.9); POTASSIUM 3.5 mmol/L (3.5-5.1)
[2016-12-10] MEDS: CEROVITE ADV FORMULA TAB PO SCH (07:39)
[2016-12-10] MEDS: DICLOFENAC SOD 1% GEL 100 GM TUBE EXT SCH ×4 (07:39→21:27)
[2016-12-10] MEDS: PANTOprazole SOD 40 MG TAB PO SCH (07:39)
[2016-12-10] MEDS: CHOLECALCIFEROL 1000 INTER.UNIT TAB PO SCH (07:39)
[2016-12-10] MEDS: DOXYCYCLINE HYCLATE 100 MG CAP PO SCH ×2 (07:39→21:30)
[2016-12-10] MEDS: ASCORBIC ACID 500 MG TAB PO SCH (07:39)
[2016-12-10] MEDS: FAMOTIDINE 20 MG TAB PO SCH (07:39)
[2016-12-10] MEDS: ALLOPURINOL 100 MG TAB PO SCH (07:39)
[2016-12-10] MEDS: FLUTICASONE/SALMETEROL (ADVAIR) 500/50 INH 14 PUFF INH SCH ×2 (07:39→21:27)
[2016-12-10] MEDS: PYRIDOXINE HCL 50 MG TAB PO SCH (07:39)
[2016-12-10] MEDS: DOCUSATE SODIUM/SENNA 50/8.6MG TAB PO SCH ×2 (07:39→20:00)
[2016-12-10] MEDS: SILVER SULFADIAZINE 1% CR 50 GM JAR EXT SCH (07:40)
[2016-12-10] MEDS: LIDODERM (LIDOCAINE) PATCH 5% TD SCH (07:40)
[2016-12-10] MEDS: PROSOURCE NOCARB 30ML/PKT PO SCH ×2 (07:40→17:00)
[2016-12-10] MEDS: NYSTATIN POWDER 15GM BTL EXT SCH ×2 (07:40→20:00)
[2016-12-10] MEDS: ATORVASTATIN 40 MG TAB PO SCH (07:40)
[2016-12-10] MEDS: PREGABALIN 50 MG CAP PO SCH (07:52)
[2016-12-10] MEDS: HYDROmorphone HCL 2 MG TAB PO PRN ×2 (07:52→21:29)
[2016-12-10] MEDS: INSULIN ASPART 100 UNITS/ML 3 ML PEN SC SCH ×4 (07:55→21:36)
[2016-12-10] MEDS: INSULIN GLARGINE SOLOSTAR 100 UNITS/ML 3 ML PEN SC SCH ×2 (07:55→21:36)
[2016-12-10] MEDS: HEPARIN SOD 5000 UNIT/0.5 ML CARP SQ SCH ×2 (07:56→21:37)
[2016-12-10] MEDS ORDERED: HEPARIN SOD (PORCINE) 1000 UNIT/ML 10 ML VIAL IV SCH (08:00)
[2016-12-10] MEDS ORDERED: IRON SUCROSE INJ 100 MG in SYRINGE 0 ML IV SCH (08:00)
[2016-12-10] MEDS ORDERED: ALBUMIN HUMAN 25% 12.5 GM/50 ML VIAL IV PRN (08:00)
[2016-12-10] MEDS ORDERED: EPOETIN ALFA 10,000 UNITS/ML VIAL IV. SCH (08:00)
[2016-12-10] MEDS: TIOTROPIUM BROMIDE 5 PUFF/90 MCG INH INH SCH (08:02)
--- NOTE | 2016-12-10 10:02 | Progress Note ---
Subjective Date of Service: Dec 10, 2016. Subjective Pt evaluation today including: conversation w/ patient, conversation w/ family , physical exam, chart review, lab review, review of studies, review of inpatient medication list Doing the same, sitting up in chair, playing cell phone, reported lower extremity seeping of fluid is the same, requiring frequent dress changes, nursing staff has been doing this No other complaints Problem List Medical Problems: (1) Acute respiratory failure with hypoxia and hypercarbia Status: Acute (2) Altered mental status Status: Acute (3) Anasarca Status: Acute (4) Anasarca Status: Acute (5) Bilateral cellulitis of lower leg Status: Acute (6) Bilateral lower leg cellulitis Status: Acute (7) Cellulitis Status: Acute (8) Change in mental status Status: Acute (9) Chronic renal failure Status: Acute (10) CO2 retention Status: Acute (11) Contusion of multiple sites Status: Acute (12) Dehydration Status: Acute (13) Dyspnea on exertion Status: Acute (14) Failure of outpatient treatment Status: Acute (15) Fall Status: Acute (16) Fall Status: Acute (17) Fever Status: Acute (18) Fever Status: Acute (19) Generalized weakness Status: Acute (20) Headache Status: Acute (21) Hypercarbia Status: Acute (22) Hyperkalemia Status: Acute (23) Hypokalemia Status: Acute (24) Hypotension Status: Acute (25) Hypoventilation Status: Acute (26) Hypoxemia Status: Acute (27) Hypoxia Status: Acute (28) Lumbar strain Status: Acute (29) Metabolic acidosis Status: Acute (30) Nail avulsion of toe Status: Acute (31) Obesity Status: Acute (32) Respiratory failure Status: Acute (33) Weakness Status: Acute (34) Weight gain Status: Acute (35) Wrist pain Status: Acute Review of Systems Constitutional: + weakness, + fatigue, No see HPI, No fever, No chills, No sweats, No weight loss, No problem reported Eyes: No see HPI, No worsening of vision, No eye pain, No redness, No discharge , No diplopia, No problem reported ENT: No see HPI, No hearing loss, No unusual epistaxis, No nasal symptoms, No sore throat, No tinnitus, No dental problems, No trouble swallowing, No problem reported Respiratory: + shortness of breath (is in baseline), No see HPI, No cough, No sputum, No wheezing, No dyspnea on exertion, No dyspnea at rest, No hemoptysis, No problem reported Cardiac: + edema Abdomen: No see HPI, No pain, No nausea, No vomiting, No diarrhea, No constipation, No GI bleeding, No problem reported Musculoskeletal: + joint pain (is chronic) Female : No see HPI, No dysuria, No urinary frequency, No hematuria, No incontinence, No abnormal vaginal bleeding, No vaginal discharge, No problem reported Neurologic: No see HPI, No memory loss, No paralysis, No weakness, No numbness/ tingling, No vertigo, No balance problems, No problem reported Psychiatric: No see HPI, No depression symptoms, No anhedonism, No anxiety, No insomnia, No substance abuse, No problem reported Skin: + problem reported (abimael bottock area,. and middle of to buttock area have wounds, wound care is on the case) Objective Vital Signs Date Time Temp Pulse Resp B/P (MAP) Pulse Ox O2 Delivery O2 Flow Rate FiO2 12/10/16 08:00 Nasal Cannula 3.0 12/10/16 07:11 36.7 102 20 103/67 (79) 99 Nasal Cannula 3.0 12/10/16 00:16 36.7 103 20 125/63 (83) 96 Nasal Cannula 3.0 12/10/16 00:00 93 Nasal Cannula 3.0 12/09/16 16:00 Nasal Cannula 3.0 12/09/16 15:17 36.6 106 20 106/67 (80) 93 12/09/16 10:11 106/64 (78) Physical Exam General Appearance: WD/WN, no apparent distress, + obese Eyes: normal inspection, PERRL, EOMI, sclerae normal ENT: normal ENT inspection, hearing grossly normal, pharynx normal Neck: supple, no adenopathy, thyroid normal, no JVD, no carotid bruits, trachea midline Respiratory/Chest: chest non-tender, normal breath sounds, no respiratory distress, no accessory muscle use, + decreased breath sounds Cardiovascular: regular rate, rhythm, no gallop, no JVD, no murmur Abdomen: normal bowel sounds, non tender, soft, no organomegaly, no pulsatile mass Extremities: normal range of motion, non-tender, normal inspection, no pedal edema, no calf tenderness, normal capillary refill, pelvis stable, + swelling (3 + ) 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 and middle of to buttock area have wounds, wound care is on the case) Lymphatic: no adenopathy Laboratory Results Last 24 Hours Test 12/09/16 11:41 12/09/16 17:14 12/09/16 19:55 12/10/16 05:45 Bedside Glucose 120 mg/dl 108 mg/dl 151 mg/dl White Blood Count 13.76 K/uL Red Blood Count 3.20 M/uL Hemoglobin 10.1 g/dL Hematocrit 33.9 % Mean Corpuscular Volume 105.9 fL Mean Corpuscular Hemoglobin 31.6 pg Mean Corpuscular Hemoglobin Concent 29.8 g/dl Platelet Count 251 K/uL Mean Platelet Volume 9.7 fL Neutrophils (%) (Auto) 70.4 % Lymphocytes (%) (Auto) 11.6 % Monocytes (%) (Auto) 11.6 % Eosinophils (%) (Auto) 2.9 % Basophils (%) (Auto) 0.6 % Neutrophils # (Auto) 9.69 K/uL Lymphocytes # (Auto) 1.60 K/uL Monocytes # (Auto) 1.59 K/uL Eosinophils # (Auto) 0.40 K/uL Basophils # (Auto) 0.08 K/uL RDW Standard Deviation 81.4 fL RDW Coefficient of Variation 20.9 % Immature Granulocyte % (Auto) 2.9 % Immature Granulocyte # (Auto) 0.40 K/uL Nucleated RBC Absolute Count (auto) 0.47 K/uL Nucleated Red Blood Cells % 3.4 % Toxic Granulation 1+ Anisocytosis PRESENT Macrocytosis PRESENT Sodium Level 134 mmol/L Potassium Level 3.5 mmol/L Chloride Level 96 mmol/L Carbon Dioxide Level 30 mmol/L Anion Gap 8.0 mmol/L Blood Urea Nitrogen 24 mg/dl Creatinine 7.70 mg/dl Est Creatinine Clear Calc Drug Dose 10.5 ml/min Estimated GFR () 5.9 Estimated GFR (Non- 5.1 BUN/Creatinine Ratio 3.1 Random Glucose 190 mg/dl Calcium Level 9.9 mg/dl Phosphorus Level 1.5 mg/dl Magnesium Level 2.3 mg/dl Assessment and Plan 61F with admitted on 12/03/2016 because of neck pain worse on palpation and headaches and a two week history of bilateral hand edema. After admission CT head showed no acute pathology and the headaches have for the most part resolved with osteopathic manipulation techniques. Today report pain is 5 out of 10 pain, which is the best of her level , she reported the neck pain improve PMHx of DM2, GERD, COPD, CHF, cellulitis, ESRD on dialysis, and chronic pain Neck spasm / headache, better / resolving, continue Voltaren gel QID, and continue [place] 1 tab Q4H PRN Bilateral hand edema, the same , Likely secondary to third spacing. Stable Bilateral lower ext edema with skin erythema middle of buttock cleft area has open wound and abimael posterior thigh area has has open wound and minimal bleeding Above condition is stable , continue wound care, and dresses change for the lower extremities is 3 times a day and every hour as needed Has been on 25% Albumin TID, day will be last day per order, Continue fluid restricted diet and dialysis. inguinal folds erythema, likely fungal, continue Nystatin Powder Bilateral lower extremity Cellulitis, continue Doxycycline to 100mg BID, Day #8 , continue wound care, requested formal consult End stage renal disease on dialysis Hypophosphatemia: Discussed with her renal, stop phos binding and follow-up tomorrow morning lab, hopefully phosphatase level will improve from her eating Diastolic congestive heart failure, stable continue current care, encourage patient to continue fluid restriction to 1200ml daily Type 2 diabetes, stable continue current care Morbid Obesity, COPD, Chronic pain, GERD: Stable continue current care VTE Prophylaxis - Heparin 5000 units SQ Q12H Patient and family agree with placement, 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
[2016-12-10] MEDS: HEPARIN SOD (PORCINE) 1000 UNIT/ML 10 ML VIAL IV SCH ×3 (10:36→12:30)
--- NOTE | 2016-12-10 13:03 | Dialysis Progress Note ---
Nephrology Dialysis Note Date of Service: Dec 10, 2016. Subjective seen on HD this am about 1020; tolerating tx so far w/o need for albumin; goal is to do tx w/o albumin > maximizing UF; goal UF at this point 1.8 L; no pain, edema a bit better Objective Date Time Temp Pulse Resp B/P (MAP) Pulse Ox O2 Delivery O2 Flow Rate FiO2 12/10/16 12:30 99 109/48 12/10/16 12:15 102 104/53 12/10/16 12:00 100 109/49 12/10/16 11:45 100 119/50 12/10/16 11:30 100 108/49 12/10/16 11:15 103 116/56 12/10/16 11:00 104 89/42 12/10/16 10:45 103 108/42 12/10/16 10:30 99 88/39 12/10/16 10:15 91 87/39 12/10/16 10:00 90 90/45 12/10/16 09:45 104 127/57 12/10/16 09:36 103 132/51 12/10/16 09:30 36.7 104 120/53 (75) 12/10/16 08:00 Nasal Cannula 3.0 12/10/16 07:11 36.7 102 20 103/67 (79) 99 Nasal Cannula 3.0 12/10/16 00:16 36.7 103 20 125/63 (83) 96 Nasal Cannula 3.0 12/10/16 00:00 93 Nasal Cannula 3.0 12/09/16 16:00 Nasal Cannula 3.0 12/09/16 15:17 36.6 106 20 106/67 (80) 93 Physical Exam: General Appearance: WD/WN, no apparent distress, + obese, + pertinent finding ( on 02nc, tired) Eyes: EOMI ENT: hearing grossly normal Neck: supple Respiratory/Chest: lungs clear, no respiratory distress, no accessory muscle use, + decreased breath sounds Cardiovascular: + tachycardia, + pertinent finding (anasarca) Abdomen: normal bowel sounds, non tender, soft, + pertinent finding (no fernandez) Extremities: + inflammation (chronic venous stasis changes), + pedal edema, + slow capillary refill, + swelling, + pertinent finding (AVF w/ susan) Neurologic/Psych: alert, normal mood/affect, oriented x 3, + motor weakness Skin: + rash Current Inpatient Medications Medications (Trade) Dose Ordered Sig/Duyen Route Start Time Stop Time Status Last Admin Dose Admin Miscellaneous (Iv Fluids Completed) 1 ea PRN PRN N/A 12/03/16 15:30 12/03/17 15:29 Heparin Sodium (Porcine) (Heparin Sq 5000 Unit/0.5ml) 5,000 unit Q12 SQ 12/03/16 21:00 01/02/17 20:59 12/10/16 07:56 5,000 UNIT Acetaminophen (Tylenol Tab) 650 mg Q4H PRN PO 12/03/16 15:45 01/02/17 15:44 12/05/16 01:46 650 MG Nitroglycerin (Nitrostat Tab) 0.4 mg UD PRN SL 12/03/16 15:45 01/02/17 15:44 Allopurinol (Zyloprim Tab) 100 mg DAILY PO 12/04/16 09:00 01/03/17 08:59 12/10/16 07:39 100 MG Atorvastatin Calcium (Lipitor Tab) 40 mg DAILY PO 12/04/16 09:00 01/03/17 08:59 12/10/16 07:40 40 MG Cholecalciferol (Vitamin D Tab) 1,000 inter.unit DAILY PO 12/04/16 09:00 01/03/17 08:59 12/10/16 07:39 1,000 INTER.UNIT Famotidine (Pepcid Tab) 20 mg DAILY PO 12/04/16 09:00 01/03/17 08:59 12/10/16 07:39 20 MG Salmeterol Xinafoate/ Fluticasone (Advair Diskus 500/50 Inh) 1 puff BID INH 12/03/16 21:00 01/02/17 20:59 12/10/16 07:39 1 PUFF Lidocaine (Lidoderm Patch 5%) 1 patch QAM TD 12/04/16 09:00 01/03/17 08:59 Multivitamins/ Minerals (Multivitamin W/ Minerals Tab) 1 tab DAILY PO 12/04/16 09:00 01/03/17 08:59 12/10/16 07:39 1 TAB Pantoprazole Sodium (Protonix Tab) 40 mg DAILY PO 12/04/16 09:00 01/03/17 08:59 12/10/16 07:39 40 MG Pregabalin (Lyrica Cap) 50 mg DAILY PO 12/04/16 09:00 01/03/17 08:59 12/10/16 07:52 50 MG Pyridoxine HCl (Vitamin B-6 Tab) 200 mg DAILY PO 12/04/16 09:00 01/03/17 08:59 12/10/16 07:39 200 MG Silver Sulfadiazine (Silvadene 1% Crm 50GM Jar) 1 appln DAILY EXT 12/04/16 09:00 01/03/17 08:59 12/06/16 08:12 1 APPLN Tiotropium [place] (Spiriva Handihaler Inhaler) 1 puff DAILY INH 12/04/16 09:00 01/03/17 08:59 12/10/16 08:02 1 PUFF Miscellaneous (Remove Lidoderm Patch) 1 ea DAILY@21 N/A 12/03/16 21:00 01/02/17 20:59 Insulin Aspart (novoLOG ASPART) SLIDING SCALE If C... ACHS SC 12/03/16 21:00 01/02/17 20:59 12/10/16 07:55 26 UNITS Glucose (Glucose 40% Gel) 15-30 GRAMS 15 GRAMS... UD PRN PO 12/03/16 17:30 01/02/17 17:29 Glucose (Glucose Chew Tab) 4-8 Tablets 4 Tabl... UD PRN PO 12/03/16 17:30 01/02/17 17:29 Dextrose (Dextrose 50% 50ML Syringe) 25-50ML OF 50% DW IV FOR... UD PRN IV 12/03/16 17:30 01/02/17 17:29 Glucagon (Glucagon Inj) 1 mg UD PRN SQ 12/03/16 17:30 01/02/17 17:29 Diclofenac Sodium (Voltaren 1% Top Gel) 1 appln QID EXT 12/03/16 21:00 01/02/17 20:59 12/10/16 07:39 1 APPLN Acetaminophen/ Hydrocodone Bitart ([place] 10/325 Tab) 1 tab Q4H PRN PO 12/03/16 18:00 12/17/16 17:59 12/09/16 03:23 1 TAB Hydromorphone HCl (Dilaudid Tab) 2 mg Q4H PRN PO 12/03/16 18:00 12/17/16 17:59 12/10/16 07:52 2 MG Vitamin B Complex/ Vit C/Folic Acid (Nephrocaps) 1 cap QPM PO 12/04/16 21:00 01/03/17 08:59 12/09/16 22:22 1 CAP Senna/Docusate Sodium (Senokot S Tab) 1 tab BID PO 12/04/16 21:00 01/03/17 20:59 12/10/16 07:39 1 TAB Doxycycline Hyclate (Vibramycin Cap) 100 mg BID PO 12/04/16 21:00 12/14/16 08:59 12/10/16 07:39 100 MG Nystatin (Mycostatin Powder) 1 appln BID EXT 12/04/16 21:00 01/03/17 20:59 12/07/16 21:46 1 APPLN Ascorbic Acid (Vitamin C Tab) 1,000 mg QAM PO 12/06/16 09:00 01/05/17 08:59 12/10/16 07:39 1,000 MG Insulin Glargine (Lantus Solostar Pen) 30 units BID SC 12/05/16 21:00 01/02/17 20:59 12/10/16 07:55 30 UNITS Ondansetron HCl (Zofran Odt) 4 mg Q4H PRN PO 12/05/16 17:15 01/04/17 17:14 12/06/16 08:24 4 MG Polyethylene (Miralax Powder Packet) 17 gm DAILY PRN PO 12/05/16 17:30 01/04/17 17:29 12/08/16 14:38 17 GM Miconazole Nitrate (Desenex Powder) 1 appln PRN PRN EXT 12/06/16 09:00 01/05/17 08:59 12/08/16 20:32 1 APPLN Prochlorperazine Edisylate 10 mg/ Syringe 10 ml @ 5 mls/min Q6 PRN IV 12/06/16 13:15 01/05/17 13:14 12/09/16 12:58 5 MLS/MIN Enteral Nutritional Formula (Prosource No Carb) 30 ml BIDM PO 12/08/16 17:30 01/07/17 17:29 Simethicone (Mylicon Chew Tab) 80 mg Q6H PRN PO 12/09/16 01:00 01/08/17 00:59 12/09/16 03:23 80 MG Albumin Human (Albumin 25%) 12.5 gm UD PRN IV 12/10/16 08:00 12/10/16 16:00 Last 24 Hours Test 12/09/16 17:14 12/09/16 19:55 12/10/16 05:45 Bedside Glucose 108 mg/dl 151 mg/dl White Blood Count 13.76 K/uL Red Blood Count 3.20 M/uL Hemoglobin 10.1 g/dL Hematocrit 33.9 % Mean Corpuscular Volume 105.9 fL Mean Corpuscular Hemoglobin 31.6 pg Mean Corpuscular Hemoglobin Concent 29.8 g/dl Platelet Count 251 K/uL Mean Platelet Volume 9.7 fL Neutrophils (%) (Auto) 70.4 % Lymphocytes (%) (Auto) 11.6 % Monocytes (%) (Auto) 11.6 % Eosinophils (%) (Auto) 2.9 % Basophils (%) (Auto) 0.6 % Neutrophils # (Auto) 9.69 K/uL Lymphocytes # (Auto) 1.60 K/uL Monocytes # (Auto) 1.59 K/uL Eosinophils # (Auto) 0.40 K/uL Basophils # (Auto) 0.08 K/uL RDW Standard Deviation 81.4 fL RDW Coefficient of Variation 20.9 % Immature Granulocyte % (Auto) 2.9 % Immature Granulocyte # (Auto) 0.40 K/uL Nucleated RBC Absolute Count (auto) 0.47 K/uL Nucleated Red Blood Cells % 3.4 % Toxic Granulation 1+ Anisocytosis PRESENT Macrocytosis PRESENT Sodium Level 134 mmol/L Potassium Level 3.5 mmol/L Chloride Level 96 mmol/L Carbon Dioxide Level 30 mmol/L Anion Gap 8.0 mmol/L Blood Urea Nitrogen 24 mg/dl Creatinine 7.70 mg/dl Est Creatinine Clear Calc Drug Dose 10.5 ml/min Estimated GFR () 5.9 Estimated GFR (Non- 5.1 BUN/Creatinine Ratio 3.1 Random Glucose 190 mg/dl Calcium Level 9.9 mg/dl Phosphorus Level 1.5 mg/dl Magnesium Level 2.3 mg/dl Assessment & Plan 61 y/o F w/ ESRD admitted from [facility] on 12/03 for hypotension, uncontrolled pain. ESRD on large dialyzer for longer tx; next HD on 12/12 or as clinically indicated Labile blood pressures -she has chronically lower blood pressures w/ SBP often 80-100s and at baseline -no BP meds currently; bp seems to be higher w/ manual checks -albumin w/ HD to optimize uf if needed Anemia of chronic disease -epo w/ HD; iron studies show need for venofer as well and will give again today Appreciate consult; will follow with you. Care coordinated w/ Dr. Krishna
[2016-12-10] MEDS: HYDROCODONE/ACETAMI 10/325 TAB PO PRN (18:30)
[2016-12-10] MEDS: NEPHROCAPS PO SCH (21:30)
[2016-12-10] MEDS: SIMETHICONE 80 MG CHEW PO PRN (21:38)
[2016-12-10] MEDS: ONDANSETRON 4MG OD TAB PO PRN (22:35)
[2016-12-11] VITALS (7 sets, daily range): BP systolic 92–138; BP diastolic 47–63; PULSE 56–106; TEMP 36.5–36.8; O2SAT 90–98
[2016-12-11] MEDS: HYDROmorphone HCL 2 MG TAB PO PRN ×2 (03:01→11:20)
[2016-12-11] MEDS: DICLOFENAC SOD 1% GEL 100 GM TUBE EXT SCH ×4 (05:25→21:06)
[2016-12-11] MEDS: HYDROCODONE/ACETAMI 10/325 TAB PO PRN (05:25)
[2016-12-11] MEDS: PROSOURCE NOCARB 30ML/PKT PO SCH ×2 (08:00→17:00)
[2016-12-11] MEDS: SILVER SULFADIAZINE 1% CR 50 GM JAR EXT SCH (08:00)
[2016-12-11] MEDS: LIDODERM (LIDOCAINE) PATCH 5% TD SCH (08:00)
[2016-12-11 08:26] LABS: BASO % 0.5 %; BASO ABS # 0.06 K/uL (0-0.2); EOS % 2.9 %; HEMATOCRIT 33.8 % (37-47); IG% 4.2 %; LYMPH % 13.5 %; LYMPH ABS # 1.72 K/uL (1.2-3.4); MEAN CORPUSCULAR HEMOGLOBIN 31.7 pg (25-34); MEAN CORPUSCULAR HGB CONC 29.9 g/dl (32-36); MEAN PLATELET VOLUME 9.3 fL (7.4-10.4); MONO % 12.8 %; NEUT % 66.1 %; PLATELET COUNT 209 K/uL (130-400); RED BLOOD COUNT 3.19 M/uL (4.2-5.4); WHITE BLOOD COUNT 12.74 K/uL (4.8-10.8)
[2016-12-11 09:01] LABS: ANISOCYTOSIS PRESENT; COMPLETE YES
[2016-12-11] MEDS: DOXYCYCLINE HYCLATE 100 MG CAP PO SCH ×2 (09:02→21:08)
[2016-12-11] MEDS: FAMOTIDINE 20 MG TAB PO SCH (09:02)
[2016-12-11] MEDS: ALLOPURINOL 100 MG TAB PO SCH (09:02)
[2016-12-11] MEDS: CHOLECALCIFEROL 1000 INTER.UNIT TAB PO SCH (09:02)
[2016-12-11] MEDS: ATORVASTATIN 40 MG TAB PO SCH (09:02)
[2016-12-11] MEDS: DOCUSATE SODIUM/SENNA 50/8.6MG TAB PO SCH ×2 (09:03→21:07)
[2016-12-11] MEDS: ASCORBIC ACID 500 MG TAB PO SCH (09:03)
[2016-12-11] MEDS: PANTOprazole SOD 40 MG TAB PO SCH (09:03)
[2016-12-11] MEDS: CEROVITE ADV FORMULA TAB PO SCH (09:03)
[2016-12-11 09:05] LABS: BUN/CREATININE RATIO 2.4 (10-20); CALCIUM 9.2 mg/dl (8.5-10.1); CREATININE 4.8 mg/dl (0.60-1.20); PHOSPHORUS 1.1 mg/dl (2.5-4.9); POTASSIUM 3.5 mmol/L (3.5-5.1)
[2016-12-11] MEDS: PYRIDOXINE HCL 50 MG TAB PO SCH (09:06)
[2016-12-11] MEDS: FLUTICASONE/SALMETEROL (ADVAIR) 500/50 INH 14 PUFF INH SCH ×2 (09:07→21:06)
[2016-12-11] MEDS: TIOTROPIUM BROMIDE 5 PUFF/90 MCG INH INH SCH (09:07)
[2016-12-11] MEDS: POLYETHYLENE (MIRALAX) 17 GM PACK PO PRN (09:18)
[2016-12-11] MEDS: PREGABALIN 50 MG CAP PO SCH (09:19)
[2016-12-11] MEDS: INSULIN GLARGINE SOLOSTAR 100 UNITS/ML 3 ML PEN SC SCH ×2 (09:35→21:00)
[2016-12-11] MEDS: HEPARIN SOD 5000 UNIT/0.5 ML CARP SQ SCH ×2 (09:35→21:05)
[2016-12-11] MEDS: INSULIN ASPART 100 UNITS/ML 3 ML PEN SC SCH ×4 (09:35→20:59)
--- NOTE | 2016-12-11 10:20 | Progress Note ---
Subjective Date of Service: Dec 11, 2016. Subjective Pt evaluation today including: conversation w/ patient, conversation w/ family , physical exam, chart review, lab review, review of studies, conversation w/ work and family life consultant, review of inpatient medication list Report has not been sleeping well overnight, sitting up in chair, still has oozing of fluid from present on lower extremities Problem List Medical Problems: (1) Acute respiratory failure with hypoxia and hypercarbia Status: Acute (2) Altered mental status Status: Acute (3) Anasarca Status: Acute (4) Anasarca Status: Acute (5) Bilateral cellulitis of lower leg Status: Acute (6) Bilateral lower leg cellulitis Status: Acute (7) Cellulitis Status: Acute (8) Change in mental status Status: Acute (9) Chronic renal failure Status: Acute (10) CO2 retention Status: Acute (11) Contusion of multiple sites Status: Acute (12) Dehydration Status: Acute (13) Dyspnea on exertion Status: Acute (14) Failure of outpatient treatment Status: Acute (15) Fall Status: Acute (16) Fall Status: Acute (17) Fever Status: Acute (18) Fever Status: Acute (19) Generalized weakness Status: Acute (20) Headache Status: Acute (21) Hypercarbia Status: Acute (22) Hyperkalemia Status: Acute (23) Hypokalemia Status: Acute (24) Hypotension Status: Acute (25) Hypoventilation Status: Acute (26) Hypoxemia Status: Acute (27) Hypoxia Status: Acute (28) Lumbar strain Status: Acute (29) Metabolic acidosis Status: Acute (30) Nail avulsion of toe Status: Acute (31) Obesity Status: Acute (32) Respiratory failure Status: Acute (33) Weakness Status: Acute (34) Weight gain Status: Acute (35) Wrist pain Status: Acute Review of Systems Constitutional: + weakness, + fatigue, No fever, No chills Eyes: No worsening of vision ENT: No hearing loss Respiratory: + shortness of breath, No cough, No sputum Cardiac: No see HPI, No chest pain, No orthopnea, No PND, No edema, No claudication, No palpitations, No problem reported Abdomen: No see HPI, No pain, No nausea, No vomiting, No diarrhea, No constipation, No GI bleeding, No problem reported Musculoskeletal: + swelling (edema 3+ is not on the) Female : No see HPI, No dysuria, No urinary frequency, No hematuria, No incontinence, No abnormal vaginal bleeding, No vaginal discharge, No problem reported Skin: + problem reported (there were several skin wounds is taking care by wound care and nurse) Objective Vital Signs Date Time Temp Pulse Resp B/P (MAP) Pulse Ox O2 Delivery O2 Flow Rate FiO2 12/11/16 07:54 36.7 106 22 107/51 (69) 90 Nasal Cannula 3.0 12/11/16 00:50 36.8 56 20 93/55 (68) 97 Room Air 12/11/16 00:00 93 Nasal Cannula 3.0 12/10/16 16:00 Nasal Cannula 3.0 12/10/16 14:18 36.9 115 20 125/67 (86) 94 12/10/16 14:14 37.1 100 121/55 (77) 12/10/16 13:45 112 111/55 12/10/16 13:30 108 92/56 12/10/16 13:15 98 81/48 12/10/16 13:00 104 88/45 12/10/16 12:45 107 104/51 12/10/16 12:30 99 109/48 12/10/16 12:15 102 104/53 12/10/16 12:00 100 109/49 12/10/16 11:45 100 119/50 12/10/16 11:30 100 108/49 12/10/16 11:15 103 116/56 12/10/16 11:00 104 89/42 12/10/16 10:45 103 108/42 12/10/16 10:30 99 88/39 12/10/16 10:15 91 87/39 Physical Exam General Appearance: WD/WN, no apparent distress, + obese, + pertinent finding ( chronic ill-looking and looked tired) Eyes: normal inspection, PERRL, EOMI, sclerae normal ENT: normal ENT inspection, hearing grossly normal, pharynx normal Neck: supple, no adenopathy, thyroid normal, no JVD, no carotid bruits, trachea midline Respiratory/Chest: chest non-tender, normal breath sounds, no respiratory distress, no accessory muscle use, + decreased breath sounds Cardiovascular: regular rate, rhythm, no gallop, no JVD, no murmur, + pertinent finding (3+ edema) Abdomen: normal bowel sounds, non tender, soft, no organomegaly, no pulsatile mass Extremities: normal range of motion, non-tender, normal inspection, no pedal edema, no calf tenderness, normal capillary refill, pelvis stable 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: trouble shooting mechanic II-XII nml as tested, no motor/sensory deficits, alert, normal mood/affect, oriented x 3 Skin: + pertinent finding (several wounds in mid bottock areas, POSTERIOR LEFT THIGH AND BILATERAL LOWER EXTREMITY) Lymphatic: no adenopathy Laboratory Results Last 24 Hours Test 12/10/16 14:15 12/10/16 16:47 12/10/16 20:20 12/11/16 08:11 Bedside Glucose 126 mg/dl 199 mg/dl 179 mg/dl White Blood Count 12.74 K/uL Red Blood Count 3.19 M/uL Hemoglobin 10.1 g/dL Hematocrit 33.8 % Mean Corpuscular Volume 106.0 fL Mean Corpuscular Hemoglobin 31.7 pg Mean Corpuscular Hemoglobin Concent 29.9 g/dl Platelet Count 209 K/uL Mean Platelet Volume 9.3 fL Neutrophils (%) (Auto) 66.1 % Lymphocytes (%) (Auto) 13.5 % Monocytes (%) (Auto) 12.8 % Eosinophils (%) (Auto) 2.9 % Basophils (%) (Auto) 0.5 % Neutrophils # (Auto) 8.43 K/uL Lymphocytes # (Auto) 1.72 K/uL Monocytes # (Auto) 1.63 K/uL Eosinophils # (Auto) 0.37 K/uL Basophils # (Auto) 0.06 K/uL RDW Standard Deviation 81.5 fL RDW Coefficient of Variation 21.2 % Immature Granulocyte % (Auto) 4.2 % Immature Granulocyte # (Auto) 0.53 K/uL Nucleated RBC Absolute Count (auto) 0.59 K/uL Nucleated Red Blood Cells % 4.6 % Anisocytosis PRESENT Sodium Level 133 mmol/L Potassium Level 3.5 mmol/L Chloride Level 96 mmol/L Carbon Dioxide Level 31 mmol/L Anion Gap 6.0 mmol/L Blood Urea Nitrogen 12 mg/dl Creatinine 4.80 mg/dl Est Creatinine Clear Calc Drug Dose 16.6 ml/min Estimated GFR () 10.4 Estimated GFR (Non- 9.0 BUN/Creatinine Ratio 2.4 Random Glucose 205 mg/dl Calcium Level 9.2 mg/dl Phosphorus Level 1.1 mg/dl Assessment and Plan 61F with admitted on 12/03/2016 because of neck pain worse on palpation and headaches and a two week history of bilateral hand edema. Neck pain is better and is in her baseline PMHx of DM2, GERD, COPD, CHF, cellulitis, ESRD on dialysis, and chronic pain Neck spasm / headache, resolved, continue Voltaren gel QID, and continue Carrie 1 tab Q4H PRN Bilateral hands edema, the same , Likely secondary to third spacing. Stable Bilateral lower ext edema with skin erythema, oozing of fluid has been on dress changes, has advised to raise both lower extremity is at any time if possible, discussed with patient and nurse about this middle of buttock cleft area has open wound and abimael posterior thigh area has has open wound and minimal bleeding Above condition is stable , continue wound care, and dresses change for the lower extremities is 3 times a day and every hour as needed Has been on 25% Albumin TID, day will be last day per order, Continue fluid restricted diet and dialysis. inguinal folds erythema, likely fungal, continue Nystatin Powder Bilateral lower extremity Cellulitis, was having mild leukocytosis, today's improved , continue Doxycycline to 100mg BID, Day #9, continue wound care, requested formal consult End stage renal disease on dialysis Hypophosphatemia: Discussed with her renal, stop phos binding and follow-up morning lab, hopefully phosphatase level will improve from her eating, today's Phos level even lower, has requested nurse to report to your police surgeon and walk it treatment if needed Diastolic congestive heart failure, stable continue current care, encourage patient to continue fluid restriction to 1200ml daily Type 2 diabetes, stable continue current care Morbid Obesity, COPD, Chronic pain, GERD: Stable continue current care VTE Prophylaxis - Heparin 5000 units SQ Q12H Patient and family agree with placement, disease case manager work on, patient medically ready to be discharged Continued [facility] stay due to: home environment unsafe for pt Discharge planning: [facility] facility
[2016-12-11] MEDS: NYSTATIN POWDER 15GM BTL EXT SCH ×2 (13:22→21:07)
[2016-12-11] MEDS: ONDANSETRON 4MG OD TAB PO PRN (14:19)
[2016-12-11] MEDS ORDERED: POTASSIUM PHOS 3 MMOL/1 ML INFUSION IV STA (15:53)
[2016-12-11] MEDS ORDERED: POTASSIUM PHOSPHATE INJ 15 MMOL in SODIUM CHLORIDE 0.9% 250ML 250 ML IV ONE (16:00)
[2016-12-11] MEDS: PROCHLORPERAZINE INJ 10 MG in SYRINGE 8 ML IV PRN (17:32)
[2016-12-11] MEDS: NEPHROCAPS PO SCH (21:08)
[2016-12-12] VITALS (19 sets, daily range): BP systolic 88–144; BP diastolic 42–82; PULSE 97–110; TEMP 36.4–36.7; O2SAT 93–97
[2016-12-12] MEDS: HYDROmorphone HCL 2 MG TAB PO PRN ×3 (00:43→20:51)
[2016-12-12] MEDS: HYDROCODONE/ACETAMI 10/325 TAB PO PRN (05:41)
[2016-12-12 06:33] LABS: BASO % 0.5 %; BASO ABS # 0.06 K/uL (0-0.2); EOS % 3.4 %; HEMATOCRIT 34.5 % (37-47); IG% 3.1 %; LYMPH % 12.9 %; LYMPH ABS # 1.58 K/uL (1.2-3.4); MEAN CELL VOLUME 105.2 fL (80-100); MEAN CORPUSCULAR HEMOGLOBIN 32.6 pg (25-34); MEAN PLATELET VOLUME 9.5 fL (7.4-10.4); MONO % 13.1 %; PLATELET COUNT 225 K/uL (130-400); RED BLOOD COUNT 3.28 M/uL (4.2-5.4); WHITE BLOOD COUNT 12.28 K/uL (4.8-10.8)
[2016-12-12 06:53] LABS: ANISOCYTOSIS PRESENT; COMPLETE YES; VACUOLIZATION 1+
--- NOTE | 2016-12-12 07:08 | Nephrology Progress Note ---
Nephrology Progress Note Date of Service: Dec 12, 2016. Subjective 61 yo female with hypophosphatemia, decreased appetite, losing weight who was found to have low phos of 1.1 and transferred to [facility] and given 15 mmol of kphos. pt using her bipap overnight and sitting out of bed to chair. pt comfortable. has wounds on legs that are draining. appetite not the greatest. Objective Date Time Temp Pulse Resp B/P (MAP) Pulse Ox O2 Delivery O2 Flow Rate FiO2 12/12/16 05:00 Nasal Cannula 3.0 12/12/16 04:51 36.5 98 18 88/53 (65) 95 BiPAP 3.0 12/12/16 00:45 CPAP 3.0 12/12/16 00:35 36.7 105 18 100/52 (68) 96 Nasal Cannula 3.0 12/11/16 20:26 36.6 103 16 101/47 (65) 98 Nasal Cannula 3.0 12/11/16 20:00 Nasal Cannula 3.0 12/11/16 16:27 36.5 102 18 138/63 (88) 95 3.0 12/11/16 16:00 Nasal Cannula 3.0 12/11/16 11:33 Nasal Cannula 3.0 12/11/16 11:21 98 110/57 (74) 12/11/16 10:55 36.5 98 20 92/58 (69) 95 12/11/16 07:54 36.7 106 22 107/51 (69) 90 Nasal Cannula 3.0 Physical Exam: General-aaox3, obese Eyes-no scleral icterus ENT-mmm Neck-supple Lungs-cta Heart-distant heart sounds Abdomen-bs+ s/nt/large pannus Extremities-+2 edema with open wounds Neuro-nonfocal Current Inpatient Medications Medications (Trade) Dose Ordered Sig/Duyen Route Start Time Stop Time Status Last Admin Dose Admin Miscellaneous (Iv Fluids Completed) 1 ea PRN PRN N/A 12/03/16 15:30 12/03/17 15:29 Heparin Sodium (Porcine) (Heparin Sq 5000 Unit/0.5ml) 5,000 unit Q12 SQ 12/03/16 21:00 01/02/17 20:59 12/11/16 21:05 5,000 UNIT Acetaminophen (Tylenol Tab) 650 mg Q4H PRN PO 12/03/16 15:45 01/02/17 15:44 12/05/16 01:46 650 MG Nitroglycerin (Nitrostat Tab) 0.4 mg UD PRN SL 12/03/16 15:45 01/02/17 15:44 Allopurinol (Zyloprim Tab) 100 mg DAILY PO 12/04/16 09:00 01/03/17 08:59 12/11/16 09:02 100 MG Atorvastatin Calcium (Lipitor Tab) 40 mg DAILY PO 12/04/16 09:00 01/03/17 08:59 12/11/16 09:02 40 MG Cholecalciferol (Vitamin D Tab) 1,000 inter.unit DAILY PO 12/04/16 09:00 01/03/17 08:59 12/11/16 09:02 1,000 INTER.UNIT Famotidine (Pepcid Tab) 20 mg DAILY PO 12/04/16 09:00 01/03/17 08:59 12/11/16 09:02 20 MG Salmeterol Xinafoate/ Fluticasone (Advair Diskus 500/50 Inh) 1 puff BID INH 12/03/16 21:00 01/02/17 20:59 12/11/16 21:06 1 PUFF Lidocaine (Lidoderm Patch 5%) 1 patch QAM TD 12/04/16 09:00 01/03/17 08:59 Multivitamins/ Minerals (Multivitamin W/ Minerals Tab) 1 tab DAILY PO 12/04/16 09:00 01/03/17 08:59 12/11/16 09:03 1 TAB Pantoprazole Sodium (Protonix Tab) 40 mg DAILY PO 12/04/16 09:00 01/03/17 08:59 12/11/16 09:03 40 MG Pregabalin (Lyrica Cap) 50 mg DAILY PO 12/04/16 09:00 01/03/17 08:59 12/11/16 09:19 50 MG Pyridoxine HCl (Vitamin B-6 Tab) 200 mg DAILY PO 12/04/16 09:00 01/03/17 08:59 12/11/16 09:06 200 MG Silver Sulfadiazine (Silvadene 1% Crm 50GM Jar) 1 appln DAILY EXT 12/04/16 09:00 01/03/17 08:59 12/06/16 08:12 1 APPLN Tiotropium [place] (Spiriva Handihaler Inhaler) 1 puff DAILY INH 12/04/16 09:00 01/03/17 08:59 12/11/16 09:07 1 PUFF Miscellaneous (Remove Lidoderm Patch) 1 ea DAILY@21 N/A 12/03/16 21:00 01/02/17 20:59 Insulin Aspart (novoLOG ASPART) SLIDING SCALE If C... ACHS SC 12/03/16 21:00 01/02/17 20:59 12/11/16 20:59 4 UNITS Glucose (Glucose 40% Gel) 15-30 GRAMS 15 GRAMS... UD PRN PO 12/03/16 17:30 01/02/17 17:29 Glucose (Glucose Chew Tab) 4-8 Tablets 4 Tabl... UD PRN PO 12/03/16 17:30 01/02/17 17:29 Dextrose (Dextrose 50% 50ML Syringe) 25-50ML OF 50% DW IV FOR... UD PRN IV 12/03/16 17:30 01/02/17 17:29 Glucagon (Glucagon Inj) 1 mg UD PRN SQ 12/03/16 17:30 01/02/17 17:29 Diclofenac Sodium (Voltaren 1% Top Gel) 1 appln QID EXT 12/03/16 21:00 01/02/17 20:59 12/11/16 21:06 1 APPLN Acetaminophen/ Hydrocodone Bitart ([place] 10/325 Tab) 1 tab Q4H PRN PO 12/03/16 18:00 12/17/16 17:59 12/12/16 05:41 1 TAB Hydromorphone HCl (Dilaudid Tab) 2 mg Q4H PRN PO 12/03/16 18:00 12/17/16 17:59 12/12/16 00:43 2 MG Vitamin B Complex/ Vit C/Folic Acid (Nephrocaps) 1 cap QPM PO 12/04/16 21:00 01/03/17 08:59 12/11/16 21:08 1 CAP Senna/Docusate Sodium (Senokot S Tab) 1 tab BID PO 12/04/16 21:00 01/03/17 20:59 12/11/16 21:07 1 TAB Doxycycline Hyclate (Vibramycin Cap) 100 mg BID PO 12/04/16 21:00 12/14/16 08:59 12/11/16 21:08 100 MG Nystatin (Mycostatin Powder) 1 appln BID EXT 12/04/16 21:00 01/03/17 20:59 12/11/16 21:07 1 APPLN Ascorbic Acid (Vitamin C Tab) 1,000 mg QAM PO 12/06/16 09:00 01/05/17 08:59 12/11/16 09:03 1,000 MG Insulin Glargine (Lantus Solostar Pen) 30 units BID SC 12/05/16 21:00 01/02/17 20:59 12/11/16 21:00 30 UNITS Ondansetron HCl (Zofran Odt) 4 mg Q4H PRN PO 12/05/16 17:15 01/04/17 17:14 12/11/16 14:19 4 MG Polyethylene (Miralax Powder Packet) 17 gm DAILY PRN PO 12/05/16 17:30 01/04/17 17:29 12/11/16 09:18 17 GM Miconazole Nitrate (Desenex Powder) 1 appln PRN PRN EXT 12/06/16 09:00 01/05/17 08:59 12/08/16 20:32 1 APPLN Prochlorperazine Edisylate 10 mg/ Syringe 10 ml @ 5 mls/min Q6 PRN IV 12/06/16 13:15 01/05/17 13:14 12/11/16 17:32 5 MLS/MIN Enteral Nutritional Formula (Prosource No Carb) 30 ml BIDM PO 12/08/16 17:30 01/07/17 17:29 Simethicone (Mylicon Chew Tab) 80 mg Q6H PRN PO 12/09/16 01:00 01/08/17 00:59 12/10/16 21:38 80 MG Epoetin [place] (Procrit Inj) 10,000 units ONE ONCE IV. 12/12/16 07:00 12/12/16 07:01 UNV Albumin Human (Albumin 25%) 25 gm ONE ONCE IV 12/12/16 07:00 12/12/16 07:01 UNV Last 24 Hours Test 12/11/16 07:41 12/11/16 08:11 12/11/16 11:00 12/11/16 11:40 Bedside Glucose 193 mg/dl 188 mg/dl 169 mg/dl White Blood Count 12.74 K/uL Red Blood Count 3.19 M/uL Hemoglobin 10.1 g/dL Hematocrit 33.8 % Mean Corpuscular Volume 106.0 fL Mean Corpuscular Hemoglobin 31.7 pg Mean Corpuscular Hemoglobin Concent 29.9 g/dl Platelet Count 209 K/uL Mean Platelet Volume 9.3 fL Neutrophils (%) (Auto) 66.1 % Lymphocytes (%) (Auto) 13.5 % Monocytes (%) (Auto) 12.8 % Eosinophils (%) (Auto) 2.9 % Basophils (%) (Auto) 0.5 % Neutrophils # (Auto) 8.43 K/uL Lymphocytes # (Auto) 1.72 K/uL Monocytes # (Auto) 1.63 K/uL Eosinophils # (Auto) 0.37 K/uL Basophils # (Auto) 0.06 K/uL RDW Standard Deviation 81.5 fL RDW Coefficient of Variation 21.2 % Immature Granulocyte % (Auto) 4.2 % Immature Granulocyte # (Auto) 0.53 K/uL Nucleated RBC Absolute Count (auto) 0.59 K/uL Nucleated Red Blood Cells % 4.6 % Anisocytosis PRESENT Sodium Level 133 mmol/L Potassium Level 3.5 mmol/L Chloride Level 96 mmol/L Carbon Dioxide Level 31 mmol/L Anion Gap 6.0 mmol/L Blood Urea Nitrogen 12 mg/dl Creatinine 4.80 mg/dl Est Creatinine Clear Calc Drug Dose 16.6 ml/min Estimated GFR () 10.4 Estimated GFR (Non- 9.0 BUN/Creatinine Ratio 2.4 Random Glucose 205 mg/dl Calcium Level 9.2 mg/dl Phosphorus Level 1.1 mg/dl Test 12/11/16 16:32 12/11/16 20:04 12/12/16 05:41 Bedside Glucose 147 mg/dl 157 mg/dl White Blood Count 12.28 K/uL Red Blood Count 3.28 M/uL Hemoglobin 10.7 g/dL Hematocrit 34.5 % Mean Corpuscular Volume 105.2 fL Mean Corpuscular Hemoglobin 32.6 pg Mean Corpuscular Hemoglobin Concent 31.0 g/dl Platelet Count 225 K/uL Mean Platelet Volume 9.5 fL Neutrophils (%) (Auto) 67.0 % Lymphocytes (%) (Auto) 12.9 % Monocytes (%) (Auto) 13.1 % Eosinophils (%) (Auto) 3.4 % Basophils (%) (Auto) 0.5 % Neutrophils # (Auto) 8.23 K/uL Lymphocytes # (Auto) 1.58 K/uL Monocytes # (Auto) 1.61 K/uL Eosinophils # (Auto) 0.42 K/uL Basophils # (Auto) 0.06 K/uL RDW Standard Deviation 81.3 fL RDW Coefficient of Variation 21.4 % Immature Granulocyte % (Auto) 3.1 % Immature Granulocyte # (Auto) 0.38 K/uL Nucleated RBC Absolute Count (auto) 0.27 K/uL Nucleated Red Blood Cells % 2.2 % Toxic Vacuolation 1+ Anisocytosis PRESENT Macrocytosis PRESENT Assessment & Plan ESRD-volume status in my opinion is acceptable. difficult to sand technologist volume status in the obese. edema in hands looks much improved compared to when I saw her last week at [facility]. has a maturing access in left upper arm with good bruit and thrill. using tunneled line. k is ok. will do a 3k bath, no uf, use albumin to help bp while on dialysis. bp low and do not want to remove fluid. Anemia of renal failure-goal hg of 10 to 11. giving procrit on dialysis ALFIE-phos levels are low. calcium levels are normal. checking pth levels today. given kphos last night and may need more. pt with poor appetite. losing weight.
[2016-12-12] MEDS: FLUTICASONE/SALMETEROL (ADVAIR) 500/50 INH 14 PUFF INH SCH ×2 (07:27→20:50)
[2016-12-12 07:28] LABS: BUN/CREATININE RATIO 2.7 (10-20); CALCIUM 9.1 mg/dl (8.5-10.1); CREATININE 6.3 mg/dl (0.60-1.20); PHOSPHORUS 1.5 mg/dl (2.5-4.9); POTASSIUM 3.6 mmol/L (3.5-5.1)
[2016-12-12] MEDS: CEROVITE ADV FORMULA TAB PO SCH (07:28)
[2016-12-12] MEDS: CHOLECALCIFEROL 1000 INTER.UNIT TAB PO SCH (07:28)
[2016-12-12] MEDS: PANTOprazole SOD 40 MG TAB PO SCH (07:28)
[2016-12-12] MEDS: DOXYCYCLINE HYCLATE 100 MG CAP PO SCH ×2 (07:28→20:50)
[2016-12-12] MEDS: DOCUSATE SODIUM/SENNA 50/8.6MG TAB PO SCH ×2 (07:28→20:55)
[2016-12-12] MEDS: TIOTROPIUM BROMIDE 5 PUFF/90 MCG INH INH SCH (07:29)
[2016-12-12] MEDS: ATORVASTATIN 40 MG TAB PO SCH (07:29)
[2016-12-12] MEDS: FAMOTIDINE 20 MG TAB PO SCH (07:30)
[2016-12-12] MEDS: ASCORBIC ACID 500 MG TAB PO SCH (07:30)
[2016-12-12] MEDS: ALLOPURINOL 100 MG TAB PO SCH (07:30)
[2016-12-12] MEDS: PROSOURCE NOCARB 30ML/PKT PO SCH ×2 (07:30→16:45)
[2016-12-12] MEDS ORDERED: EPOETIN ALFA 10,000 UNITS/ML VIAL IV. ONE (07:30)
[2016-12-12] MEDS ORDERED: ALBUMIN HUMAN 25% 12.5 GM/50 ML VIAL IV SCH (07:30)
[2016-12-12] MEDS: PYRIDOXINE HCL 50 MG TAB PO SCH (07:30)
[2016-12-12] MEDS: NYSTATIN POWDER 15GM BTL EXT SCH ×2 (07:31→20:55)
[2016-12-12] MEDS: SILVER SULFADIAZINE 1% CR 50 GM JAR EXT SCH (07:31)
[2016-12-12] MEDS: LIDODERM (LIDOCAINE) PATCH 5% TD SCH (07:31)
[2016-12-12] MEDS: DICLOFENAC SOD 1% GEL 100 GM TUBE EXT SCH ×5 (07:32→20:50)
[2016-12-12] MEDS: INSULIN ASPART 100 UNITS/ML 3 ML PEN SC SCH ×4 (07:37→20:53)
[2016-12-12] MEDS: INSULIN GLARGINE SOLOSTAR 100 UNITS/ML 3 ML PEN SC SCH ×2 (07:38→20:54)
[2016-12-12] MEDS: HEPARIN SOD 5000 UNIT/0.5 ML CARP SQ SCH ×2 (07:39→20:54)
[2016-12-12] MEDS: PREGABALIN 50 MG CAP PO SCH (08:45)
[2016-12-12] MEDS: ONDANSETRON 4MG OD TAB PO PRN (10:29)
--- NOTE | 2016-12-12 15:11 | Progress Note ---
Subjective Date of Service: Dec 12, 2016. Subjective Pt evaluation today including: conversation w/ patient, conversation w/ family , physical exam, chart review, lab review, review of studies, conversation w/ human resource consultant, review of inpatient medication list Again feeling tired and weak, however out of bed to the chair, reported posterior lower back pain possible from the wound, bilateral lower extremities has small seeping of the fluid Problem List Medical Problems: (1) Acute respiratory failure with hypoxia and hypercarbia Status: Acute (2) Altered mental status Status: Acute (3) Anasarca Status: Acute (4) Anasarca Status: Acute (5) Bilateral cellulitis of lower leg Status: Acute (6) Bilateral lower leg cellulitis Status: Acute (7) Cellulitis Status: Acute (8) Change in mental status Status: Acute (9) Chronic renal failure Status: Acute (10) CO2 retention Status: Acute (11) Contusion of multiple sites Status: Acute (12) Dehydration Status: Acute (13) Dyspnea on exertion Status: Acute (14) Failure of outpatient treatment Status: Acute (15) Fall Status: Acute (16) Fall Status: Acute (17) Fever Status: Acute (18) Fever Status: Acute (19) Generalized weakness Status: Acute (20) Headache Status: Acute (21) Hypercarbia Status: Acute (22) Hyperkalemia Status: Acute (23) Hypokalemia Status: Acute (24) Hypotension Status: Acute (25) Hypoventilation Status: Acute (26) Hypoxemia Status: Acute (27) Hypoxia Status: Acute (28) Lumbar strain Status: Acute (29) Metabolic acidosis Status: Acute (30) Nail avulsion of toe Status: Acute (31) Obesity Status: Acute (32) Respiratory failure Status: Acute (33) Weakness Status: Acute (34) Weight gain Status: Acute (35) Wrist pain Status: Acute Review of Systems Constitutional: + weakness, + fatigue, No see HPI, No fever, No chills, No sweats, No weight loss, No problem reported Eyes: No see HPI, No worsening of vision, No eye pain, No redness, No discharge , No diplopia, No problem reported ENT: No see HPI, No hearing loss, No unusual epistaxis, No nasal symptoms, No sore throat, No tinnitus, No dental problems, No trouble swallowing, No problem reported Respiratory: + shortness of breath (chronic), No see HPI, No cough, No sputum, No wheezing, No dyspnea on exertion, No dyspnea at rest, No hemoptysis, No problem reported Cardiac: No see HPI, No chest pain, No orthopnea, No PND, No edema, No claudication, No palpitations, No problem reported Breast: No see HPI, No breast lump, No change in shape, No nipple discharge, No breast pain, No problem reported Abdomen: No see HPI, No pain, No nausea, No vomiting, No diarrhea, No constipation, No GI bleeding, No problem reported Musculoskeletal: No see HPI, No joint pain, No muscle pain, No swelling, No calf pain, No problem reported Female : No see HPI, No dysuria, No urinary frequency, No hematuria, No incontinence, No abnormal vaginal bleeding, No vaginal discharge, No problem reported Neurologic: No see HPI, No memory loss, No paralysis, No weakness, No numbness/ tingling, No vertigo, No balance problems, No problem reported Psychiatric: No see HPI, No depression symptoms, No anhedonism, No anxiety, No insomnia, No substance abuse, No problem reported Skin: + problem reported (middle of lower back, bilateral posterior thighs, has open wound , and lower extremities has fluid seeping and diffuse seeping of fluid), No see HPI Objective Vital Signs Date Time Temp Pulse Resp B/P (MAP) Pulse Ox O2 Delivery O2 Flow Rate FiO2 12/12/16 12:00 Nasal Cannula 3.0 12/12/16 11:35 36.5 97 20 114/54 (74) 97 12/12/16 08:13 36.4 102 20 104/57 (73) 93 12/12/16 08:00 Nasal Cannula 3.0 12/12/16 05:00 Nasal Cannula 3.0 12/12/16 04:51 36.5 98 18 88/53 (65) 95 BiPAP 3.0 12/12/16 00:45 CPAP 3.0 12/12/16 00:35 36.7 105 18 100/52 (68) 96 Nasal Cannula 3.0 12/11/16 20:26 36.6 103 16 101/47 (65) 98 Nasal Cannula 3.0 12/11/16 20:00 Nasal Cannula 3.0 12/11/16 16:27 36.5 102 18 138/63 (88) 95 3.0 12/11/16 16:00 Nasal Cannula 3.0 Physical Exam General Appearance: WD/WN, no apparent distress, + obese Eyes: normal inspection, PERRL, EOMI, sclerae normal ENT: normal ENT inspection, hearing grossly normal, pharynx normal Neck: supple, no adenopathy, thyroid normal, no JVD, no carotid bruits, trachea midline Respiratory/Chest: chest non-tender, normal breath sounds, no respiratory distress, no accessory muscle use, + decreased breath sounds Cardiovascular: regular rate, rhythm, no gallop, no JVD, no murmur Abdomen: normal bowel sounds, non tender, soft, no organomegaly, no pulsatile mass Extremities: normal range of motion, non-tender, normal inspection, no pedal edema, no calf tenderness, normal capillary refill, pelvis stable 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: 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 tested, no motor/sensory deficits, alert, normal mood/affect, oriented x 3 Skin: normal color, warm/dry, no rash, + pertinent finding Lymphatic: no adenopathy Laboratory Results Last 24 Hours Test 12/11/16 16:32 12/11/16 20:04 12/12/16 05:41 12/12/16 06:37 Bedside Glucose 147 mg/dl 157 mg/dl 199 mg/dl White Blood Count 12.28 K/uL Red Blood Count 3.28 M/uL Hemoglobin 10.7 g/dL Hematocrit 34.5 % Mean Corpuscular Volume 105.2 fL Mean Corpuscular Hemoglobin 32.6 pg Mean Corpuscular Hemoglobin Concent 31.0 g/dl Platelet Count 225 K/uL Mean Platelet Volume 9.5 fL Neutrophils (%) (Auto) 67.0 % Lymphocytes (%) (Auto) 12.9 % Monocytes (%) (Auto) 13.1 % Eosinophils (%) (Auto) 3.4 % Basophils (%) (Auto) 0.5 % Neutrophils # (Auto) 8.23 K/uL Lymphocytes # (Auto) 1.58 K/uL Monocytes # (Auto) 1.61 K/uL Eosinophils # (Auto) 0.42 K/uL Basophils # (Auto) 0.06 K/uL RDW Standard Deviation 81.3 fL RDW Coefficient of Variation 21.4 % Immature Granulocyte % (Auto) 3.1 % Immature Granulocyte # (Auto) 0.38 K/uL Nucleated RBC Absolute Count (auto) 0.27 K/uL Nucleated Red Blood Cells % 2.2 % Toxic Vacuolation 1+ Anisocytosis PRESENT Macrocytosis PRESENT Sodium Level 135 mmol/L Potassium Level 3.6 mmol/L Chloride Level 97 mmol/L Carbon Dioxide Level 27 mmol/L Anion Gap 11.0 mmol/L Blood Urea Nitrogen 17 mg/dl Creatinine 6.30 mg/dl Est Creatinine Clear Calc Drug Dose 12.7 ml/min Estimated GFR () 7.5 Estimated GFR (Non- 6.5 BUN/Creatinine Ratio 2.7 Random Glucose 176 mg/dl Calcium Level 9.1 mg/dl Phosphorus Level 1.5 mg/dl Test 12/12/16 08:18 12/12/16 11:11 Parathyroid Hormone (Intact) 43.4 pg/mL Bedside Glucose 131 mg/dl Assessment and Plan 61F with admitted on 12/03/2016 because of neck pain worse on palpation and headaches and a two week history of bilateral hand edema. Neck pain is better and is in her baseline, however was transferred to groundwater monitoring technician bed because of severe hypophosphatemia which required IV phosphorus infusion PMHx of DM2, GERD, COPD, CHF, cellulitis, ESRD on dialysis, and chronic pain Neck spasm / headache, resolved, continue Voltaren gel QID, and continue [place] 1 tab Q4H PRN Bilateral hands edema, the same , Likely secondary to third spacing. Stable Bilateral lower ext edema with skin erythema, oozing of fluid has been on dress changes, possible getting worse has advised to raise both lower extremity is at any time if possible, discussed with patient and nurse about this middle of buttock cleft area has open wound and abimael posterior thigh area has has open wound and minimal bleeding, has request a wound care to see the patient Per continue wound care, and bilateral lower exts would be good to open up without dressing Has been on 25% Albumin TID, day will be last day per order, Continue fluid restricted diet and dialysis. inguinal folds erythema, likely fungal, continue Nystatin Powder, stable continue Bilateral lower extremity Cellulitis, was having mild leukocytosis, today's improved , continue Doxycycline to 100mg BID, Day #10, continue wound care, End stage renal disease on dialysis Hypophosphatemia: Discussed with her renal, stop phos binding and follow-up morning lab, hopefully phosphatase level will improve from her eating, Was having hypophosphatemia, yesterday in the was level was at 1.1, was replaced after discussing with public address systems mechanic Today was level is 1.5, nephrology on the case, we'll monitor, PTH was ordered Diastolic congestive heart failure, stable continue current care, encourage patient to continue fluid restriction to 1200ml daily, continue dialysis Type 2 diabetes, stable continue current care Morbid Obesity, COPD, Chronic pain, GERD: Stable continue current care VTE Prophylaxis - Heparin 5000 units SQ Q12H Patient and family agree with placement, patient got a place to go, however medically none ready yet case aide work on, patient medically ready to be discharged Continued [facility] stay due to: home environment unsafe for pt Discharge planning: longterm facility
[2016-12-12] MEDS: ALBUMIN HUMAN 25% 12.5 GM/50 ML VIAL IV SCH ×2 (16:18→17:22)
[2016-12-12] MEDS: MICONAZOLE NITRATE POWDER 43 GM EXT PRN (20:49)
[2016-12-12] MEDS: NEPHROCAPS PO SCH (20:50)
[2016-12-12] MEDS: PROCHLORPERAZINE INJ 10 MG in SYRINGE 8 ML IV PRN (20:56)
[2016-12-12] MEDS ORDERED: POTASSIUM PHOS 3 MMOL/1 ML INFUSION IV STA (23:55)
[2016-12-13] VITALS (11 sets, daily range): BP systolic 92–123; BP diastolic 31–71; PULSE 99–111; TEMP 36.4–37.4; O2SAT 92–97
[2016-12-13] MEDS ORDERED: POTASSIUM PHOSPHATE INJ 21 MMOL in SODIUM CHLORIDE 0.9% 500ML 500 ML IV ONE (00:30)
[2016-12-13] MEDS: HYDROmorphone HCL 2 MG TAB PO PRN ×3 (02:57→16:59)
[2016-12-13] MEDS: SIMETHICONE 80 MG CHEW PO PRN ×2 (05:44→07:44)
[2016-12-13 06:54] LABS: BUN/CREATININE RATIO 2.4 (10-20); CALCIUM 8.5 mg/dl (8.5-10.1); CREATININE 5.1 mg/dl (0.60-1.20); PHOSPHORUS 2.2 mg/dl (2.5-4.9)
[2016-12-13] MEDS: INSULIN ASPART 100 UNITS/ML 3 ML PEN SC SCH ×5 (07:00→21:34)
[2016-12-13] MEDS: PROSOURCE NOCARB 30ML/PKT PO SCH ×2 (07:30→16:53)
[2016-12-13] MEDS: CEROVITE ADV FORMULA TAB PO SCH (07:45)
[2016-12-13] MEDS: CHOLECALCIFEROL 1000 INTER.UNIT TAB PO SCH (07:45)
[2016-12-13] MEDS: ATORVASTATIN 40 MG TAB PO SCH (07:45)
[2016-12-13] MEDS: PANTOprazole SOD 40 MG TAB PO SCH (07:45)
[2016-12-13] MEDS: ALLOPURINOL 100 MG TAB PO SCH (07:45)
[2016-12-13] MEDS: FLUTICASONE/SALMETEROL (ADVAIR) 500/50 INH 14 PUFF INH SCH ×2 (07:46→21:32)
[2016-12-13] MEDS: FAMOTIDINE 20 MG TAB PO SCH (07:46)
[2016-12-13] MEDS: DOCUSATE SODIUM/SENNA 50/8.6MG TAB PO SCH ×2 (07:46→21:00)
[2016-12-13] MEDS: ASCORBIC ACID 500 MG TAB PO SCH (07:47)
[2016-12-13] MEDS: PYRIDOXINE HCL 50 MG TAB PO SCH (07:48)
[2016-12-13] MEDS: LIDODERM (LIDOCAINE) PATCH 5% TD SCH (07:49)
[2016-12-13] MEDS: DOXYCYCLINE HYCLATE 100 MG CAP PO SCH ×2 (07:50→21:32)
[2016-12-13] MEDS: DICLOFENAC SOD 1% GEL 100 GM TUBE EXT SCH ×4 (07:50→21:32)
[2016-12-13] MEDS: TIOTROPIUM BROMIDE 5 PUFF/90 MCG INH INH SCH (07:50)
[2016-12-13] MEDS: PREGABALIN 50 MG CAP PO SCH (07:59)
[2016-12-13] MEDS: SILVER SULFADIAZINE 1% CR 50 GM JAR EXT SCH (08:01)
[2016-12-13] MEDS: NYSTATIN POWDER 15GM BTL EXT SCH ×2 (08:01→21:00)
[2016-12-13] MEDS: INSULIN GLARGINE SOLOSTAR 100 UNITS/ML 3 ML PEN SC SCH ×2 (08:08→21:35)
[2016-12-13] MEDS: HEPARIN SOD 5000 UNIT/0.5 ML CARP SQ SCH ×2 (08:08→21:35)
[2016-12-13] MEDS: HYDROCODONE/ACETAMI 10/325 TAB PO PRN (11:24)
--- NOTE | 2016-12-13 12:48 | Medical Consult ---
Consultation Note Date of Service Dec 13, 2016. Consultation Note No consult needed Wound healing well. Slight redness from susan will remove susan Follow up in two weeks in the office.
--- NOTE | 2016-12-13 15:33 | Progress Note ---
Subjective Date of Service: Dec 13, 2016. Subjective Pt evaluation today including: conversation w/ patient, conversation w/ family , physical exam, chart review, lab review, review of studies, review of inpatient medication list Doing okay, sitting in chair, no complaining Problem List Medical Problems: (1) Acute respiratory failure with hypoxia and hypercarbia Status: Acute (2) Altered mental status Status: Acute (3) Anasarca Status: Acute (4) Anasarca Status: Acute (5) Bilateral cellulitis of lower leg Status: Acute (6) Bilateral lower leg cellulitis Status: Acute (7) Cellulitis Status: Acute (8) Change in mental status Status: Acute (9) Chronic renal failure Status: Acute (10) CO2 retention Status: Acute (11) Contusion of multiple sites Status: Acute (12) Dehydration Status: Acute (13) Dyspnea on exertion Status: Acute (14) Failure of outpatient treatment Status: Acute (15) Fall Status: Acute (16) Fall Status: Acute (17) Fever Status: Acute (18) Fever Status: Acute (19) Generalized weakness Status: Acute (20) Headache Status: Acute (21) Hypercarbia Status: Acute (22) Hyperkalemia Status: Acute (23) Hypokalemia Status: Acute (24) Hypotension Status: Acute (25) Hypoventilation Status: Acute (26) Hypoxemia Status: Acute (27) Hypoxia Status: Acute (28) Lumbar strain Status: Acute (29) Metabolic acidosis Status: Acute (30) Nail avulsion of toe Status: Acute (31) Obesity Status: Acute (32) Respiratory failure Status: Acute (33) Weakness Status: Acute (34) Weight gain Status: Acute (35) Wrist pain Status: Acute Review of Systems Constitutional: No fever, No chills, No sweats, No weight loss, No weakness, No fatigue, No problem reported Eyes: No worsening of vision, No eye pain, No redness, No discharge, No diplopia ENT: No hearing loss, No unusual epistaxis, No nasal symptoms, No sore throat, No tinnitus, No dental problems, No trouble swallowing Respiratory: + shortness of breath (is chronic), No cough, No sputum, No wheezing, No dyspnea on exertion, No dyspnea at rest, No hemoptysis Cardiac: No chest pain, No orthopnea, No PND, No edema, No claudication, No palpitations Abdomen: No pain, No nausea, No vomiting, No diarrhea, No constipation Musculoskeletal: No joint pain, No muscle pain, No swelling, No calf pain Female : No dysuria, No urinary frequency, No hematuria, No incontinence, No abnormal vaginal bleeding, No vaginal discharge Neurologic: No memory loss, No paralysis, No weakness, No numbness/tingling, No vertigo, No balance problems Psychiatric: No depression symptoms, No anhedonism, No anxiety, No insomnia, No substance abuse Heme: No abnormal bleeding/bruising, No clotting problems, No swollen lymph nodes, No night sweats Endo: No fatigue, No excessive thirst, No excessive urination Skin: + problem reported ( lower exts are in dress) Objective Vital Signs Date Time Temp Pulse Resp B/P (MAP) Pulse Ox O2 Delivery O2 Flow Rate FiO2 12/13/16 15:16 36.7 99 18 101/52 (68) 97 Nasal Cannula 1.5 Humidified Oxygen 12/13/16 11:27 36.5 101 20 107/54 (71) 97 Nasal Cannula 2.0 12/13/16 11:27 93 Nasal Cannula 2.0 12/13/16 08:00 93 Nasal Cannula 2.0 12/13/16 07:45 36.5 107 20 113/64 (80) 94 Nasal Cannula 2.0 12/13/16 04:00 93 Nasal Cannula 2.0 12/13/16 03:33 36.5 111 24 92/31 (51) 92 Nasal Cannula 2.0 Humidified Oxygen 12/13/16 00:00 37.4 101 20 97/48 (64) 93 Nasal Cannula 2.0 Humidified Oxygen 12/13/16 00:00 93 CPAP 2.0 12/12/16 20:00 94 Nasal Cannula 2.0 12/12/16 19:30 36.7 110 18 127/58 (81) 94 Nasal Cannula 2.0 12/12/16 19:05 36.5 107 118/57 (77) 12/12/16 18:45 102 104/49 12/12/16 18:15 102 113/53 12/12/16 18:00 102 108/48 12/12/16 17:45 102 114/42 12/12/16 17:30 104 124/55 12/12/16 17:15 107 91/63 12/12/16 17:00 106 120/70 12/12/16 16:45 107 131/68 12/12/16 16:30 104 140/62 12/12/16 16:15 99 144/82 12/12/16 16:00 Nasal Cannula 3.0 12/12/16 15:55 106 134/63 12/12/16 15:45 36.5 102 131/67 (88) Physical Exam General Appearance: WD/WN, no apparent distress, + obese Eyes: normal inspection, PERRL, EOMI, sclerae normal ENT: normal ENT inspection, hearing grossly normal, pharynx normal Neck: supple, no adenopathy, thyroid normal, no JVD, no carotid bruits, trachea midline Respiratory/Chest: chest non-tender, normal breath sounds, no respiratory distress, no accessory muscle use, + decreased breath sounds Cardiovascular: regular rate, rhythm, no gallop, no JVD, no murmur, + pertinent finding (3+ edema) Abdomen: normal bowel sounds, non tender, soft, no organomegaly, no pulsatile mass Extremities: normal range of motion, non-tender, normal inspection, no pedal edema, no calf tenderness, normal capillary refill, pelvis stable 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: 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 as tested, no motor/sensory deficits, alert, normal mood/affect, oriented x 3 Skin: normal color, warm/dry, no rash Lymphatic: no adenopathy Laboratory Results Last 24 Hours Test 12/12/16 16:18 12/12/16 23:57 12/13/16 05:44 12/13/16 06:53 Bedside Glucose 144 mg/dl 166 mg/dl 226 mg/dl Sodium Level 133 mmol/L Potassium Level 4.0 mmol/L Chloride Level 99 mmol/L Carbon Dioxide Level 25 mmol/L Anion Gap 9.0 mmol/L Blood Urea Nitrogen 12 mg/dl Creatinine 5.10 mg/dl Est Creatinine Clear Calc Drug Dose 15.6 ml/min Estimated GFR () 9.7 Estimated GFR (Non- 8.4 BUN/Creatinine Ratio 2.4 Random Glucose 225 mg/dl Calcium Level 8.5 mg/dl Phosphorus Level 2.2 mg/dl Magnesium Level 2.0 mg/dl Test 12/13/16 11:24 Bedside Glucose 136 mg/dl Assessment and Plan 61F with admitted on 12/03/2016 because of neck pain worse on palpation and headaches and a two week history of bilateral hand edema. Neck pain is better and is in her baseline, however was transferred to environmental monitoring technician bed because of severe hypophosphatemia which required IV phosphorus infusion Left arm recent procedure Dr. Thapa , wound healing well, susan moved, Dr. Thapa recommended to follow up in two weeks in the office. Bilateral hands edema, the same , Likely secondary to third spacing. Stable Bilateral lower ext edema with skin erythema, oozing of fluid has been on dress changes, possible getting worse, wound care and rapped it up, need to continue wound care upon discharge intermediate has advised to raise both lower extremity is at any time if possible, discussed with patient and nurse about this middle of buttock cleft area has open wound and abimael posterior thigh area has has open wound and minimal bleeding, has request a wound care to see the patient Per continue wound care, and bilateral lower exts would be good to open up without dressing Hypophosphatemia: Replaced , Discussed with her renal, stop phos binding and follow-up morning lab, PTH in normal range Neck spasm / headache, resolved, continue Voltaren gel QID, and continue [place] 1 tab Q4H PRN Has been on 25% Albumin TID, day will be last day per order, Continue fluid restricted diet and dialysis. inguinal folds erythema, likely fungal, continue Nystatin Powder, stable continue Bilateral lower extremity Cellulitis, was having mild leukocytosis, today's improved , continue Doxycycline to 100mg BID, Day #10, continue wound care, End stage renal disease on dialysis Diastolic congestive heart failure, stable continue current care, encourage patient to continue fluid restriction to 1200ml daily, continue dialysis Type 2 diabetes, stable continue current care Morbid Obesity, COPD, Chronic pain, GERD: Stable continue current care VTE Prophylaxis - Heparin 5000 units SQ Q12H Patient and family agree with placement, patient got a place to go, possible medical ready to discharge tomorrow Continued [facility] stay due to: home environment unsafe for pt Discharge planning: [facility] facility
[2016-12-13] MEDS: NEPHROCAPS PO SCH (21:32)
[2016-12-14 07:21] VITALS: BP 105/64; PULSE 105; TEMP 36.3; O2SAT 93
[2016-12-14 07:31] LABS: BUN/CREATININE RATIO 2.7 (10-20); CALCIUM 9.1 mg/dl (8.5-10.1); CREATININE 6.7 mg/dl (0.60-1.20); PHOSPHORUS 2.5 mg/dl (2.5-4.9); POTASSIUM 3.7 mmol/L (3.5-5.1)
[2016-12-14 08:00] VITALS: O2SAT 93
[2016-12-14] MEDS: PROSOURCE NOCARB 30ML/PKT PO SCH ×2 (08:00→16:50)
[2016-12-14] MEDS ORDERED: MCTP EXT (08:26)
[2016-12-14] MEDS ORDERED: NYSP EXT (08:26)
[2016-12-14] MEDS ORDERED: HYDR-4079 PO (08:26)
--- NOTE | 2016-12-14 08:27 | Discharge Instructions ---
Discharge Instructions Date of Service Dec 14, 2016. Admission Reason for Admission: Hypotension Discharge Discharge Diagnosis / Problem: Bilateral lower ext edema Discharge Goals Goal(s): Decrease discomfort, Improve function, Increase independence, Improve disease control, Improve nutritional status, Learn about illness, Diagnostic testing, Therapeutic intervention, Prevent Disease Progression, Specific goals Activity Recommendations Activity Level: Assistance Required Therapies: Physical Therapy, Occupational Therapy . Additional Information Patient informed of condition: Yes Advance Directives: No DNR: No Level of Care: Skilled Communicable Disease: No Prognosis: Other (guarded) Oxygen at (LPM): as needed 1-2 LPM Morton Catheter: No Instructions / Follow-Up Instructions / Follow-Up you have Left arm recent procedure by Dr. Thapa , wound healing well, susan removed, Dr. Thapa recommended to follow up in two weeks in the office. continue topical erythromycin ointment daily topical use for 7 days you have Bilateral lower ext edema with skin erythema, wound care and rapped it up, need to continue wound care upon discharge intermediate you need to raise both lower extremity is at any time if possible, discussed with patient and nurse about this you have middle of buttock cleft area has open wound and abimael posterior thigh area has has open wound and minimal bleeding, need to continue wound care you have Hypophosphatemia, stop phos binding , you need to have labs of BMP, mag, phos in 2-3 days, and report result to Dr. Leblanc to adjust medicine - you need to follow up with your primary care physician in 1 week, - take medication as instructed, never overdose or any misuse, or take with alcohol, because misuse of medicine may cause organ damage or , call your primary care physician if have questions of medicaitons. - call your primary care physician OR go to local emergency room if has any fever/chill, chest pain, shortness of breathing, nausea/vomiting/abdominal pain , facial droop/slurry speech/local weakness, or if has any questions. - fall precaution - diet as instructed - you need to follow up with your subspecialist , Benji clark in 1 week - you should understand that it is important to follow up the above instruction , and "not following the above instruction" may cause delayed or missed care of your medical conditions which may cause permanent organ damage and even . Current Hospital Diet Patient's current hospital diet: Diabetes Type 2 Diet, Renal Diet Discharge Diet Recommended Diet: Diabetes Type 2 Diet, Renal Diet Fluid Restriction: 1200 ml (5 cups) Procedures Procedures Performed: no Pending Studies Studies pending at discharge: no Physician Orders On Transfer POLST Discussion: without POLST completion Laboratory Results Hemoglobin A1c Test 11/12/16 05:49 Range/Units Estimated Average Glucose 123 mg/dl Hemoglobin A1c 5.9 H 4.5-5.6 % Medical Emergencies . Who to Call and When: Medical Emergencies: If at any time you feel your situation is an emergency, please call 911 immediately. . Non-Emergent Contact Non-Emergency issues call your: Primary Care Provider, Wind Energy Technician . . "Provider Documentation" section prepared by Pavel Krishna. . Core Measure Problem Core Measures: None
[2016-12-14] MEDS ORDERED: ERYTHROMYCIN OP OINT 5 MG/GM 3.5 GM TUBE OP ONE (08:45)
[2016-12-14] MEDS: ATORVASTATIN 40 MG TAB PO SCH (08:52)
[2016-12-14] MEDS: ALLOPURINOL 100 MG TAB PO SCH (08:52)
[2016-12-14] MEDS: PREGABALIN 50 MG CAP PO SCH (08:52)
[2016-12-14] MEDS: HYDROCODONE/ACETAMI 10/325 TAB PO PRN ×3 (08:53→22:45)
[2016-12-14] MEDS: CHOLECALCIFEROL 1000 INTER.UNIT TAB PO SCH (08:54)
[2016-12-14] MEDS: ASCORBIC ACID 500 MG TAB PO SCH (08:54)
[2016-12-14] MEDS: CEROVITE ADV FORMULA TAB PO SCH (08:55)
[2016-12-14] MEDS: DOCUSATE SODIUM/SENNA 50/8.6MG TAB PO SCH ×2 (08:55→20:54)
[2016-12-14] MEDS: PANTOprazole SOD 40 MG TAB PO SCH (08:55)
[2016-12-14] MEDS: FAMOTIDINE 20 MG TAB PO SCH (08:56)
[2016-12-14] MEDS: NYSTATIN POWDER 15GM BTL EXT SCH ×2 (08:56→20:53)
[2016-12-14] MEDS: PYRIDOXINE HCL 50 MG TAB PO SCH (08:56)
[2016-12-14] MEDS: DICLOFENAC SOD 1% GEL 100 GM TUBE EXT SCH ×4 (08:57→20:53)
[2016-12-14] MEDS: FLUTICASONE/SALMETEROL (ADVAIR) 500/50 INH 14 PUFF INH SCH ×2 (08:58→20:53)
[2016-12-14] MEDS: TIOTROPIUM BROMIDE 5 PUFF/90 MCG INH INH SCH (08:58)
[2016-12-14] MEDS: LIDODERM (LIDOCAINE) PATCH 5% TD SCH (09:00)
[2016-12-14] MEDS: SILVER SULFADIAZINE 1% CR 50 GM JAR EXT SCH (09:00)
[2016-12-14] MEDS: INSULIN ASPART 100 UNITS/ML 3 ML PEN SC SCH ×4 (09:05→20:51)
[2016-12-14] MEDS: HEPARIN SOD 5000 UNIT/0.5 ML CARP SQ SCH ×2 (09:06→20:57)
[2016-12-14] MEDS: INSULIN GLARGINE SOLOSTAR 100 UNITS/ML 3 ML PEN SC SCH ×2 (09:06→20:58)
--- NOTE | 2016-12-14 10:12 | Progress Note ---
Subjective Date of Service: Dec 14, 2016. Subjective Pt evaluation today including: conversation w/ patient, conversation w/ family , physical exam, chart review, lab review, review of studies, conversation w/ dynamics ax consultant, review of inpatient medication list Doing the same, however report there were in left arm area the fistula area possible mild warm or hot after susan removal from incision yesterday Problem List Medical Problems: (1) Acute respiratory failure with hypoxia and hypercarbia Status: Acute (2) Altered mental status Status: Acute (3) Anasarca Status: Acute (4) Anasarca Status: Acute (5) Bilateral cellulitis of lower leg Status: Acute (6) Bilateral lower leg cellulitis Status: Acute (7) Cellulitis Status: Acute (8) Change in mental status Status: Acute (9) Chronic renal failure Status: Acute (10) CO2 retention Status: Acute (11) Contusion of multiple sites Status: Acute (12) Dehydration Status: Acute (13) Dyspnea on exertion Status: Acute (14) Failure of outpatient treatment Status: Acute (15) Fall Status: Acute (16) Fall Status: Acute (17) Fever Status: Acute (18) Fever Status: Acute (19) Generalized weakness Status: Acute (20) Headache Status: Acute (21) Hypercarbia Status: Acute (22) Hyperkalemia Status: Acute (23) Hypokalemia Status: Acute (24) Hypotension Status: Acute (25) Hypoventilation Status: Acute (26) Hypoxemia Status: Acute (27) Hypoxia Status: Acute (28) Lumbar strain Status: Acute (29) Metabolic acidosis Status: Acute (30) Nail avulsion of toe Status: Acute (31) Obesity Status: Acute (32) Respiratory failure Status: Acute (33) Weakness Status: Acute (34) Weight gain Status: Acute (35) Wrist pain Status: Acute Review of Systems Constitutional: + weakness, + fatigue, No see HPI, No fever, No chills, No sweats, No weight loss, No problem reported Eyes: No see HPI, No worsening of vision, No eye pain, No redness, No discharge , No diplopia, No problem reported ENT: No see HPI, No hearing loss, No unusual epistaxis, No nasal symptoms, No sore throat, No tinnitus, No dental problems, No trouble swallowing, No problem reported Respiratory: No see HPI, No cough, No sputum, No wheezing, No shortness of breath, No dyspnea on exertion, No dyspnea at rest, No hemoptysis, No problem reported Cardiac: No see HPI, No chest pain, No orthopnea, No PND, No edema, No claudication, No palpitations, No problem reported Abdomen: No see HPI, No pain, No nausea, No vomiting, No diarrhea, No constipation, No GI bleeding, No problem reported Musculoskeletal: No see HPI, No joint pain, No muscle pain, No swelling, No calf pain, No problem reported Female : No see HPI, No dysuria, No urinary frequency, No hematuria, No incontinence, No abnormal vaginal bleeding, No vaginal discharge, No problem reported Neurologic: No see HPI, No memory loss, No paralysis, No weakness, No numbness/ tingling, No vertigo, No balance problems, No problem reported Psychiatric: No see HPI, No depression symptoms, No anhedonism, No anxiety, No insomnia, No substance abuse, No problem reported Skin: + problem reported (bilateral lower extremities with increased edema red skin secondary to cellulitis and venous stasis currently is in dress), No see HPI, No rash, No itch, No new/changing skin lesions, No color change, No bleeding Objective Vital Signs Date Time Temp Pulse Resp B/P (MAP) Pulse Ox O2 Delivery O2 Flow Rate FiO2 12/14/16 08:00 93 CPAP 2.0 12/14/16 07:21 36.3 105 18 105/64 (78) 93 12/14/16 00:00 CPAP 12/13/16 23:15 37.1 100 20 109/67 (81) 96 2.0 12/13/16 16:31 36.4 107 20 123/71 (88) 95 12/13/16 15:57 36.5 107 18 94 12/13/16 15:56 94 Nasal Cannula 2.0 12/13/16 15:16 36.7 99 18 101/52 (68) 97 Nasal Cannula 1.5 Humidified Oxygen 12/13/16 11:27 36.5 101 20 107/54 (71) 97 Nasal Cannula 2.0 12/13/16 11:27 93 Nasal Cannula 2.0 Physical Exam General Appearance: WD/WN, no apparent distress, + obese, + pertinent finding ( sitting up in chair, awake and alert and orientated, conversational) Eyes: normal inspection, PERRL, EOMI, sclerae normal ENT: normal ENT inspection, hearing grossly normal, pharynx normal Neck: supple, no adenopathy, thyroid normal, no JVD, no carotid bruits, trachea midline Respiratory/Chest: chest non-tender, normal breath sounds, no respiratory distress, no accessory muscle use, + decreased breath sounds Cardiovascular: regular rate, rhythm, no gallop, no JVD, no murmur, + pertinent finding (severe bilateral lower extremity edema with seeping of fluid ) Abdomen: normal bowel sounds, non tender, soft, no organomegaly, no pulsatile mass Extremities: normal range of motion, non-tender, normal inspection, no pedal edema, no calf tenderness, normal capillary refill, pelvis stable 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: 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, no motor/sensory deficits, alert, normal mood/affect, oriented x 3 Skin: normal color, warm/dry, no rash Lymphatic: no adenopathy Laboratory Results Last 24 Hours Test 12/13/16 11:24 12/13/16 15:59 12/13/16 20:03 12/14/16 06:19 Bedside Glucose 136 mg/dl 199 mg/dl 151 mg/dl Sodium Level 133 mmol/L Potassium Level 3.7 mmol/L Chloride Level 99 mmol/L Carbon Dioxide Level 24 mmol/L Anion Gap 10.0 mmol/L Blood Urea Nitrogen 18 mg/dl Creatinine 6.70 mg/dl Est Creatinine Clear Calc Drug Dose 11.9 ml/min Estimated GFR () 7.0 Estimated GFR (Non- 6.0 BUN/Creatinine Ratio 2.7 Random Glucose 200 mg/dl Calcium Level 9.1 mg/dl Phosphorus Level 2.5 mg/dl Magnesium Level 2.0 mg/dl Test 12/14/16 07:09 Bedside Glucose 211 mg/dl Assessment and Plan 61F with admitted on 12/03/2016 because of neck pain worse on palpation and headaches and a two week history of bilateral hand edema. Neck pain is better and is in her baseline, however was transferred to cardiac monitor bed because of severe hypophosphatemia which required IV phosphorus infusion, which has been stable for 2 days Left arm recent procedure Dr. Thapa , wound healing well, susan moved, Dr. Thapa recommended to follow up in two weeks in the office. Mild increased erythema and warm, low hot or tender in palpation, I started erythromycin ointment topical use, not going to give Bactrim ointment because of patient allergic to sulfa Bilateral hands edema, the same , Likely secondary to third spacing. Stable Bilateral lower ext edema with skin erythema, oozing of fluid has been on dress changes, possible getting worse, wound care and rapped it up, need to continue wound care upon discharge senior living has advised to raise both lower extremity is at any time if possible, discussed with patient and nurse about this middle of buttock cleft area has open wound and abimael posterior thigh area has has open wound and minimal bleeding, has request a wound care to see the patient Per continue wound care, and bilateral lower exts would be good to open up without dressing Hypophosphatemia: Replaced , and has been normal for 2 days in follow-up, Discussed with her renal, stop phos binding and follow-up morning lab, PTH in normal range Neck spasm / headache, resolved, continue Voltaren gel QID, and continue Dora 1 tab Q4H PRN Has been on 25% Albumin TID, day will be last day per order, Continue fluid restricted diet and dialysis. inguinal folds erythema, likely fungal, continue Nystatin Powder, stable continue Bilateral lower extremity Cellulitis, was having mild leukocytosis, today's improved , continue Doxycycline to 100mg BID, Day #10, continue wound care, End stage renal disease on dialysis Diastolic congestive heart failure, stable continue current care, encourage patient to continue fluid restriction to 1200ml daily, continue dialysis Type 2 diabetes, stable continue current care Morbid Obesity, COPD, Chronic pain, GERD: Stable continue current care VTE Prophylaxis - Heparin 5000 units SQ Q12H Patient and family agree with placement, patient got a place to go, patient's medical condition is ready to discharge today to [facility] within each, however senior living not able to accepting her per case assistant, discharge instruction was done, and narcotic medicine was printed out Instructions / Follow-Up you have Left arm recent procedure by Dr. Thapa , wound healing well, susan removed, Dr. Thapa recommended to follow up in two weeks in the office. continue topical erythromycin ointment daily topical use for 7 days you have Bilateral lower ext edema with skin erythema, wound care and rapped it up, need to continue wound care upon discharge senior living you need to raise both lower extremity is at any time if possible, discussed with patient and nurse about this you have middle of buttock cleft area has open wound and abimael posterior thigh area has has open wound and minimal bleeding, need to continue wound care you have Hypophosphatemia, stop phos binding , you need to have labs of BMP, mag, phos in 2-3 days, and report result to Dr. Leblanc to adjust medicine - you need to follow up with your primary care physician in 1 week, - take medication as instructed, never overdose or any misuse, or take with alcohol, because misuse of medicine may cause organ damage or , call your primary care physician if have questions of medicaitons. - call your primary care physician OR go to local emergency room if has any fever/chill, chest pain, shortness of breathing, nausea/vomiting/abdominal pain , facial droop/slurry speech/local weakness, or if has any questions. - fall precaution - diet as instructed - you need to follow up with your subspecialist , Benji clark in 1 week - you should understand that it is important to follow up the above instruction , and "not following the above instruction" may cause delayed or missed care of your medical conditions which may cause permanent organ damage and even . Continued [facility] stay due to: home environment unsafe for pt Discharge planning: assisted facility
--- NOTE | 2016-12-14 11:40 | Nephrology Progress Note ---
Nephrology Progress Note Date of Service: Dec 14, 2016. Subjective 61 yo female with hypophosphatemia which has improved, pt very alert, using cpap at night, has chronic edema in the legs and wounds on her back. has some mild erythema of the fistula. Objective Date Time Temp Pulse Resp B/P (MAP) Pulse Ox O2 Delivery O2 Flow Rate FiO2 12/14/16 08:00 93 CPAP 2.0 12/14/16 07:21 36.3 105 18 105/64 (78) 93 12/14/16 00:00 CPAP 12/13/16 23:15 37.1 100 20 109/67 (81) 96 2.0 12/13/16 16:31 36.4 107 20 123/71 (88) 95 12/13/16 15:57 36.5 107 18 94 12/13/16 15:56 94 Nasal Cannula 2.0 12/13/16 15:16 36.7 99 18 101/52 (68) 97 Nasal Cannula 1.5 Humidified Oxygen Physical Exam: General-aaox3, obese Eyes-no scleral icterus ENT-mmm Neck-supple Lungs-clear Heart-distant heart sounds Abdomen-bs+ s/nt/large pannus Extremities-+2 edema with open wounds Neuro-nonfocal Back-+open wounds on lower backside Current Inpatient Medications Medications (Trade) Dose Ordered Sig/Duyen Route Start Time Stop Time Status Last Admin Dose Admin Miscellaneous (Iv Fluids Completed) 1 ea PRN PRN N/A 12/03/16 15:30 12/03/17 15:29 Heparin Sodium (Porcine) (Heparin Sq 5000 Unit/0.5ml) 5,000 unit Q12 SQ 12/03/16 21:00 01/02/17 20:59 12/14/16 09:06 5,000 UNIT Acetaminophen (Tylenol Tab) 650 mg Q4H PRN PO 12/03/16 15:45 01/02/17 15:44 12/05/16 01:46 650 MG Nitroglycerin (Nitrostat Tab) 0.4 mg UD PRN SL 12/03/16 15:45 01/02/17 15:44 Allopurinol (Zyloprim Tab) 100 mg DAILY PO 12/04/16 09:00 01/03/17 08:59 12/14/16 08:52 100 MG Atorvastatin Calcium (Lipitor Tab) 40 mg DAILY PO 12/04/16 09:00 01/03/17 08:59 12/14/16 08:52 40 MG Cholecalciferol (Vitamin D Tab) 1,000 inter.unit DAILY PO 12/04/16 09:00 01/03/17 08:59 12/14/16 08:54 1,000 INTER.UNIT Famotidine (Pepcid Tab) 20 mg DAILY PO 12/04/16 09:00 01/03/17 08:59 12/14/16 08:56 20 MG Salmeterol Xinafoate/ Fluticasone (Advair Diskus 500/50 Inh) 1 puff BID INH 12/03/16 21:00 01/02/17 20:59 12/14/16 08:58 1 PUFF Lidocaine (Lidoderm Patch 5%) 1 patch QAM TD 12/04/16 09:00 01/03/17 08:59 12/13/16 07:49 1 PATCH Multivitamins/ Minerals (Multivitamin W/ Minerals Tab) 1 tab DAILY PO 12/04/16 09:00 01/03/17 08:59 12/14/16 08:55 1 TAB Pantoprazole Sodium (Protonix Tab) 40 mg DAILY PO 12/04/16 09:00 01/03/17 08:59 12/14/16 08:55 40 MG Pregabalin (Lyrica Cap) 50 mg DAILY PO 12/04/16 09:00 01/03/17 08:59 12/14/16 08:52 50 MG Pyridoxine HCl (Vitamin B-6 Tab) 200 mg DAILY PO 12/04/16 09:00 01/03/17 08:59 12/14/16 08:56 200 MG Silver Sulfadiazine (Silvadene 1% Crm 50GM Jar) 1 appln DAILY EXT 12/04/16 09:00 01/03/17 08:59 12/06/16 08:12 1 APPLN Tiotropium [place] (Spiriva Handihaler Inhaler) 1 puff DAILY INH 12/04/16 09:00 01/03/17 08:59 12/14/16 08:58 1 PUFF Miscellaneous (Remove Lidoderm Patch) 1 ea DAILY@21 N/A 12/03/16 21:00 11/3/17 20:59 Insulin Aspart (novoLOG ASPART) SLIDING SCALE If C... ACHS SC 12/03/16 21:00 01/02/17 20:59 12/14/16 09:05 38 UNITS Glucose (Glucose 40% Gel) 15-30 GRAMS 15 GRAMS... UD PRN PO 12/03/16 17:30 01/02/17 17:29 Glucose (Glucose Chew Tab) 4-8 Tablets 4 Tabl... UD PRN PO 12/03/16 17:30 01/02/17 17:29 Dextrose (Dextrose 50% 50ML Syringe) 25-50ML OF 50% DW IV FOR... UD PRN IV 12/03/16 17:30 01/02/17 17:29 Glucagon (Glucagon Inj) 1 mg UD PRN SQ 12/03/16 17:30 01/02/17 17:29 Diclofenac Sodium (Voltaren 1% Top Gel) 1 appln QID EXT 12/03/16 21:00 01/02/17 20:59 12/14/16 08:57 1 APPLN Acetaminophen/ Hydrocodone Bitart ([place] 10/325 Tab) 1 tab Q4H PRN PO 12/03/16 18:00 12/17/16 17:59 12/14/16 08:53 1 TAB Hydromorphone HCl (Dilaudid Tab) 2 mg Q4H PRN PO 12/03/16 18:00 12/17/16 17:59 12/13/16 16:59 2 MG Vitamin B Complex/ Vit C/Folic Acid (Nephrocaps) 1 cap QPM PO 12/04/16 21:00 01/03/17 08:59 12/13/16 21:32 1 CAP Senna/Docusate Sodium (Senokot S Tab) 1 tab BID PO 12/04/16 21:00 01/03/17 20:59 12/14/16 08:55 1 TAB Nystatin (Mycostatin Powder) 1 appln BID EXT 12/04/16 21:00 01/03/17 20:59 12/14/16 08:56 1 APPLN Ascorbic Acid (Vitamin C Tab) 1,000 mg QAM PO 12/06/16 09:00 01/05/17 08:59 12/14/16 08:54 1,000 MG Insulin Glargine (Lantus Solostar Pen) 30 units BID SC 12/05/16 21:00 01/02/17 20:59 12/14/16 09:06 30 UNITS Ondansetron HCl (Zofran Odt) 4 mg Q4H PRN PO 12/05/16 17:15 01/04/17 17:14 12/12/16 10:29 4 MG Polyethylene (Miralax Powder Packet) 17 gm DAILY PRN PO 12/05/16 17:30 01/04/17 17:29 12/11/16 09:18 17 GM Miconazole Nitrate (Desenex Powder) 1 appln PRN PRN EXT 12/06/16 09:00 01/05/17 08:59 12/12/16 20:49 1 APPLN Prochlorperazine Edisylate 10 mg/ Syringe 10 ml @ 5 mls/min Q6 PRN IV 12/06/16 13:15 01/05/17 13:14 12/12/16 20:56 5 MLS/MIN Enteral Nutritional Formula (Prosource No Carb) 30 ml BIDM PO 12/08/16 17:30 01/07/17 17:29 Simethicone (Mylicon Chew Tab) 80 mg Q6H PRN PO 12/09/16 01:00 01/08/17 00:59 12/13/16 07:44 80 MG Erythromycin (Erythromycin Oph Oint) 1 appln DAILY OP 12/15/16 09:00 12/24/16 08:59 Last 24 Hours Test 12/13/16 15:59 12/13/16 20:03 12/14/16 06:19 12/14/16 07:09 Bedside Glucose 199 mg/dl 151 mg/dl 211 mg/dl Sodium Level 133 mmol/L Potassium Level 3.7 mmol/L Chloride Level 99 mmol/L Carbon Dioxide Level 24 mmol/L Anion Gap 10.0 mmol/L Blood Urea Nitrogen 18 mg/dl Creatinine 6.70 mg/dl Est Creatinine Clear Calc Drug Dose 11.9 ml/min Estimated GFR () 7.0 Estimated GFR (Non- 6.0 BUN/Creatinine Ratio 2.7 Random Glucose 200 mg/dl Calcium Level 9.1 mg/dl Phosphorus Level 2.5 mg/dl Magnesium Level 2.0 mg/dl Test 12/14/16 11:04 Bedside Glucose 224 mg/dl Assessment & Plan ESRD-pts lungs cta. has significant edema in the lower extremities. [place] patient is intravascularly volume depleted with third spacing of fluids. Anemia of renal failure-goal hg of 10 to 11. giving procrit on dialysis ALFIE-phos levels are better. calcium is stable. pth is low for a dialysis patient. no calcitriol. on vitamin d, no binders at this time. Main goal from my perspective is increased activity with goal of weight loss which will help several of her chronic issues. [facility] to do physical therapy and be more active.
[2016-12-14] MEDS: HYDROmorphone HCL 2 MG TAB PO PRN ×2 (14:44→19:01)
[2016-12-14 14:46] VITALS: BP 97/56; PULSE 100; TEMP 36.8; O2SAT 91
[2016-12-14 16:00] VITALS: O2SAT 91
[2016-12-14] MEDS: MICONAZOLE NITRATE POWDER 43 GM EXT PRN (19:02)
[2016-12-14] MEDS: NEPHROCAPS PO SCH (20:54)
[2016-12-15] VITALS (21 sets, daily range): BP systolic 94–153; BP diastolic 41–69; PULSE 79–111; TEMP 36.3–36.9; O2SAT 92–98
[2016-12-15 06:50] LABS: BUN/CREATININE RATIO 3.1 (10-20); CALCIUM 9.1 mg/dl (8.5-10.1); CREATININE 8.49 mg/dl (0.60-1.20); MAGNESIUM 2.1 mg/dl (1.8-2.4); POTASSIUM 3.9 mmol/L (3.5-5.1)
[2016-12-15] MEDS: PROSOURCE NOCARB 30ML/PKT PO SCH (08:00)
[2016-12-15] MEDS ORDERED: EPOETIN ALFA 10,000 UNITS/ML VIAL IV. SCH (08:00)
[2016-12-15] MEDS: SILVER SULFADIAZINE 1% CR 50 GM JAR EXT SCH (08:07)
[2016-12-15] MEDS: DOCUSATE SODIUM/SENNA 50/8.6MG TAB PO SCH ×2 (08:11→20:55)
[2016-12-15] MEDS: FLUTICASONE/SALMETEROL (ADVAIR) 500/50 INH 14 PUFF INH SCH ×2 (08:13→20:48)
[2016-12-15] MEDS: NYSTATIN POWDER 15GM BTL EXT SCH ×2 (08:13→20:36)
[2016-12-15] MEDS: DICLOFENAC SOD 1% GEL 100 GM TUBE EXT SCH ×4 (08:13→20:45)
[2016-12-15] MEDS: TIOTROPIUM BROMIDE 5 PUFF/90 MCG INH INH SCH (08:13)
[2016-12-15] MEDS: ERYTHROMYCIN OP OINT 5 MG/GM 3.5 GM TUBE OP SCH (08:13)
[2016-12-15] MEDS: PANTOprazole SOD 40 MG TAB PO SCH (08:14)
[2016-12-15] MEDS: FAMOTIDINE 20 MG TAB PO SCH (08:14)
[2016-12-15] MEDS: ALLOPURINOL 100 MG TAB PO SCH (08:14)
[2016-12-15] MEDS: CEROVITE ADV FORMULA TAB PO SCH (08:14)
[2016-12-15] MEDS: LIDODERM (LIDOCAINE) PATCH 5% TD SCH (08:14)
[2016-12-15] MEDS: PYRIDOXINE HCL 50 MG TAB PO SCH (08:14)
[2016-12-15] MEDS: CHOLECALCIFEROL 1000 INTER.UNIT TAB PO SCH (08:14)
[2016-12-15] MEDS: ATORVASTATIN 40 MG TAB PO SCH (08:14)
[2016-12-15] MEDS: ASCORBIC ACID 500 MG TAB PO SCH (08:14)
[2016-12-15] MEDS: PREGABALIN 50 MG CAP PO SCH (08:17)
[2016-12-15] MEDS: HYDROCODONE/ACETAMI 10/325 TAB PO PRN ×5 (08:18→23:45)
[2016-12-15] MEDS: INSULIN ASPART 100 UNITS/ML 3 ML PEN SC SCH ×4 (08:25→21:14)
[2016-12-15] MEDS: INSULIN GLARGINE SOLOSTAR 100 UNITS/ML 3 ML PEN SC SCH ×2 (08:25→21:11)
[2016-12-15] MEDS: HEPARIN SOD 5000 UNIT/0.5 ML CARP SQ SCH ×2 (08:26→21:15)
--- NOTE | 2016-12-15 11:15 | Discharge Summary ---
Discharge Summary Date of Service Dec 15, 2016. Discharge Summary Admission Date: Dec 04, 2016 at 14:07 Discharge Date: Dec 14, 2016 Discharge Disposition: senior care facility Principal Diagnosis: ESRD, weakness, see below Immunizations: Have You Had Influenza Vaccine: Yes Influenza Vaccine Date: Apr 15, 2012 History of Tetanus Vaccine?: No History of Pneumococcal: Yes Pneumococcal Date: Jan 13, 2013 History of Hepatitis B Vaccine: No Procedures: Last Resulted CBC 12/12/16 05:41 Red Blood Count 3.28, Mean Corpuscular Volume 105.2, Mean Corpuscular Hemoglobin 32.6, Mean Corpuscular Hemoglobin Concent 31.0, Mean Platelet Volume 9.5, Neutrophils (%) (Auto) 67.0, Lymphocytes (%) (Auto) 12.9, Monocytes (%) ( Auto) 13.1, Eosinophils (%) (Auto) 3.4, Basophils (%) (Auto) 0.5, Neutrophils # (Auto) 8.23, Lymphocytes # (Auto) 1.58, Monocytes # (Auto) 1.61, Eosinophils # ( Auto) 0.42, Basophils # (Auto) 0.06 Last Resulted BMP 12/15/16 05:36 Consultations: nephrology vascular (evaluated but felt formal consult not needed) Hospital Course 61F with admitted on 12/03/2016 because of neck pain worse on palpation and headaches and a two week history of bilateral hand edema. Neck pain is better and is in her baseline - had soft tissue OMT x 2 treatments and voltaren gel QID (which can be continued if needed) Left arm recent procedure to graft by Dr. Conley -- mid/upper incision mild degree of dehiscence - topical erythromycin and local wound care, daily observation - but anticipate healing with conservative care. f/u dr conley in the office Bilateral lower ext edema with skin erythema, to a lesser degree hand edema-- -ongoing local care, compression, HD, time. edema has improved a lot over current hospital stay -did have IV albumin during hospital stay which may have helped. ongoing nephrology discretion as to ?continuing this during HD. at SNF would definitely provide nutritional support Hypophosphatemia: Replaced , and has been normal for several days in follow-up, case was with nephrology, stop phos binding and follow-up serial labs, PTH in normal range inguinal folds intertrigo continue Nystatin Powder, stable continue local wound care Bilateral lower extremity Cellulitis - related to venous stasis. continue doxy four more days, then +/- ongoing systemic vs local treatment based on clinical status End stage renal disease on dialysis -ongoing w Dr Leblanc abdominal pain and nausea/vomiting - was most heavily related to constipation during this hospital stay - improved Diastolic congestive heart failure, stable continue current care, encourage patient to continue fluid restriction to 1200ml daily, continue dialysis Type 2 diabetes, stable continue current care Morbid Obesity, COPD, Chronic pain, GERD: Stable continue current care, work on increased activity VTE Prophylaxis - Heparin 5000 units SQ Q12H utilized while in hospital stable for SNF Total Time Spent: Less than 30 minutes This includes examination of the patient, discharge planning, medication reconciliation, and communication with other providers. Discharge Instructions Please refer to the electronic Patient Visit Report (Discharge Instructions) for additional information. Follow-Up BMP, mag, phos in ~2 days then at clinical discretion ongoing HD, nephrology f/u ongoing f/u Dr Conley/vascular surgery ongoing skin/wound care of graft site (L upper arm) and intertrigo (inguinal)
[2016-12-15 11:21] LABS: HEPATITIS B AB NEG
[2016-12-15] MEDS ORDERED: PROSOURCE NOCARB 30ML/PKT PO SCH (12:45)
--- NOTE | 2016-12-15 13:04 | Nephrology Progress Note ---
Nephrology Progress Note Date of Service: Dec 15, 2016. Subjective 61 yo female with ESRD, morbid obesity. pt feels good. legs rewrapped last night. has difficulty staying in the chair for prolonged periods of time. Objective Date Time Temp Pulse Resp B/P (MAP) Pulse Ox O2 Delivery O2 Flow Rate FiO2 12/15/16 11:45 79 121/51 12/15/16 11:30 104 125/41 12/15/16 11:15 104 153/63 12/15/16 11:00 100 130/57 12/15/16 10:45 100 126/60 12/15/16 10:30 105 127/69 12/15/16 10:15 95 108/48 12/15/16 10:00 111 112/51 12/15/16 09:45 97 113/52 12/15/16 09:30 102 126/50 12/15/16 09:15 102 126/50 12/15/16 09:03 36.6 107 105/54 (71) 12/15/16 08:00 Nasal Cannula 2.0 12/15/16 07:19 36.3 105 20 117/62 (80) 96 Room Air 12/15/16 00:00 36.9 101 20 94/55 (68) 98 2.0 12/15/16 00:00 CPAP 2.0 12/14/16 16:00 91 Nasal Cannula 2.0 CPAP 12/14/16 14:46 36.8 100 20 97/56 (70) 91 Physical Exam: General-aaox3, morbidly obese Eyes-no scleral icterus ENT-mmm Neck-supple Lungs-cta Heart-distant heart sounds Abdomen-bs+ s/nt/large pannus Extremities-+2 edema with open wounds-legs wrapped Neuro-nonfocal Back-+open wounds on lower backside Current Inpatient Medications Medications (Trade) Dose Ordered Sig/Dyuen Route Start Time Stop Time Status Last Admin Dose Admin Miscellaneous (Iv Fluids Completed) 1 ea PRN PRN N/A 12/03/16 15:30 12/03/17 15:29 Heparin Sodium (Porcine) (Heparin Sq 5000 Unit/0.5ml) 5,000 unit Q12 SQ 12/03/16 21:00 01/02/17 20:59 12/15/16 08:26 5,000 UNIT Acetaminophen (Tylenol Tab) 650 mg Q4H PRN PO 12/03/16 15:45 01/02/17 15:44 12/05/16 01:46 650 MG Nitroglycerin (Nitrostat Tab) 0.4 mg UD PRN SL 12/03/16 15:45 01/02/17 15:44 Allopurinol (Zyloprim Tab) 100 mg DAILY PO 12/04/16 09:00 01/03/17 08:59 12/15/16 08:14 100 MG Atorvastatin Calcium (Lipitor Tab) 40 mg DAILY PO 12/04/16 09:00 01/03/17 08:59 12/15/16 08:14 40 MG Cholecalciferol (Vitamin D Tab) 1,000 inter.unit DAILY PO 12/04/16 09:00 01/03/17 08:59 12/15/16 08:14 1,000 INTER.UNIT Famotidine (Pepcid Tab) 20 mg DAILY PO 12/04/16 09:00 01/03/17 08:59 12/15/16 08:14 20 MG Salmeterol Xinafoate/ Fluticasone (Advair Diskus 500/50 Inh) 1 puff BID INH 12/03/16 21:00 01/02/17 20:59 12/15/16 08:13 1 PUFF Lidocaine (Lidoderm Patch 5%) 1 patch QAM TD 12/04/16 09:00 01/03/17 08:59 12/13/16 07:49 1 PATCH Multivitamins/ Minerals (Multivitamin W/ Minerals Tab) 1 tab DAILY PO 12/04/16 09:00 01/03/17 08:59 12/15/16 08:14 1 TAB Pantoprazole Sodium (Protonix Tab) 40 mg DAILY PO 12/04/16 09:00 01/03/17 08:59 12/15/16 08:14 40 MG Pregabalin (Lyrica Cap) 50 mg DAILY PO 12/04/16 09:00 01/03/17 08:59 12/15/16 08:17 50 MG Pyridoxine HCl (Vitamin B-6 Tab) 200 mg DAILY PO 12/04/16 09:00 01/03/17 08:59 12/15/16 08:14 200 MG Silver Sulfadiazine (Silvadene 1% Crm 50GM Jar) 1 appln DAILY EXT 12/04/16 09:00 01/03/17 08:59 12/06/16 08:12 1 APPLN Tiotropium [place] (Spiriva Handihaler Inhaler) 1 puff DAILY INH 12/04/16 09:00 01/03/17 08:59 12/15/16 08:13 1 PUFF Miscellaneous (Remove Lidoderm Patch) 1 ea DAILY@21 N/A 12/03/16 21:00 01/02/17 20:59 Insulin Aspart (novoLOG ASPART) SLIDING SCALE If C... ACHS SC 12/03/16 21:00 01/02/17 20:59 12/15/16 08:25 26 UNITS Glucose (Glucose 40% Gel) 15-30 GRAMS 15 GRAMS... UD PRN PO 12/03/16 17:30 01/02/17 17:29 Glucose (Glucose Chew Tab) 4-8 Tablets 4 Tabl... UD PRN PO 12/03/16 17:30 01/02/17 17:29 Dextrose (Dextrose 50% 50ML Syringe) 25-50ML OF 50% DW IV FOR... UD PRN IV 12/03/16 17:30 01/02/17 17:29 Glucagon (Glucagon Inj) 1 mg UD PRN SQ 12/03/16 17:30 01/02/17 17:29 Diclofenac Sodium (Voltaren 1% Top Gel) 1 appln QID EXT 12/03/16 21:00 01/02/17 20:59 12/15/16 08:13 1 APPLN Acetaminophen/ Hydrocodone Bitart (Snyder 10/325 Tab) 1 tab Q4H PRN PO 12/03/16 18:00 12/17/16 17:59 12/15/16 08:18 1 TAB Hydromorphone HCl (Dilaudid Tab) 2 mg Q4H PRN PO 12/03/16 18:00 12/17/16 17:59 12/14/16 19:01 2 MG Vitamin B Complex/ Vit C/Folic Acid (Nephrocaps) 1 cap QPM PO 12/04/16 21:00 01/03/17 08:59 12/14/16 20:54 1 CAP Senna/Docusate Sodium (Senokot S Tab) 1 tab BID PO 12/04/16 21:00 01/03/17 20:59 12/14/16 20:54 1 TAB Nystatin (Mycostatin Powder) 1 appln BID EXT 12/04/16 21:00 01/03/17 20:59 12/15/16 08:13 1 APPLN Ascorbic Acid (Vitamin C Tab) 1,000 mg QAM PO 12/06/16 09:00 01/05/17 08:59 12/15/16 08:14 1,000 MG Insulin Glargine (Lantus Solostar Pen) 30 units BID SC 12/05/16 21:00 01/02/17 20:59 12/15/16 08:25 30 UNITS Ondansetron HCl (Zofran Odt) 4 mg Q4H PRN PO 12/05/16 17:15 01/04/17 17:14 12/12/16 10:29 4 MG Polyethylene (Miralax Powder Packet) 17 gm DAILY PRN PO 12/05/16 17:30 01/04/17 17:29 12/11/16 09:18 17 GM Miconazole Nitrate (Desenex Powder) 1 appln PRN PRN EXT 12/06/16 09:00 01/05/17 08:59 12/14/16 19:02 1 APPLN Prochlorperazine Edisylate 10 mg/ Syringe 10 ml @ 5 mls/min Q6 PRN IV 12/06/16 13:15 01/05/17 13:14 12/12/16 20:56 5 MLS/MIN Enteral Nutritional Formula (Prosource No Carb) 30 ml BIDM PO 12/08/16 17:30 01/07/17 17:29 Simethicone (Mylicon Chew Tab) 80 mg Q6H PRN PO 12/09/16 01:00 01/08/17 00:59 12/13/16 07:44 80 MG Erythromycin (Erythromycin Oph Oint) 1 appln DAILY OP 12/15/16 09:00 12/24/16 08:59 12/15/16 08:13 1 APPLN Epoetin Simba (Procrit Inj) 10,000 units TODAY@0800 IV. 12/15/16 08:00 12/15/16 23:59 12/15/16 10:57 10,000 UNITS Enteral Nutritional Formula (Prosource No Carb) Mix with juice or add... UD PO 12/15/16 12:45 01/14/17 12:44 UNV Last 24 Hours Test 12/14/16 16:14 12/14/16 20:30 12/15/16 05:36 12/15/16 07:34 Bedside Glucose 143 mg/dl 131 mg/dl 191 mg/dl Sodium Level 134 mmol/L Potassium Level 3.9 mmol/L Chloride Level 99 mmol/L Carbon Dioxide Level 23 mmol/L Anion Gap 12.0 mmol/L Blood Urea Nitrogen 26 mg/dl Creatinine 8.49 mg/dl Est Creatinine Clear Calc Drug Dose 9.4 ml/min Estimated GFR () 5.2 Estimated GFR (Non- 4.5 BUN/Creatinine Ratio 3.1 Random Glucose 171 mg/dl Calcium Level 9.1 mg/dl Phosphorus Level 3.0 mg/dl Magnesium Level 2.1 mg/dl Test 12/15/16 10:30 Hepatitis B Surface Antigen NEG Hepatitis B Surface Antibody NEG Assessment & Plan ESRD-dialyzing to help optimize numbers. pt feels good. Do not want to remove much fluid on dialysis and pt feels much better with little fluid removal. My goal is to help improve her energy levels and hopefully encourage weight loss which is the true treatment. Anemia of renal failure-goal hg of 10 to 11. giving procrit on dialysis
[2016-12-15] MEDS: NEPHROCAPS PO SCH (20:55)
[2016-12-16] MEDS: HYDROCODONE/ACETAMI 10/325 TAB PO PRN (06:29)
[2016-12-16 07:20] VITALS: BP 108/60; PULSE 100; TEMP 36.5; O2SAT 97
[2016-12-16] MEDS: LIDODERM (LIDOCAINE) PATCH 5% TD SCH (08:53)
[2016-12-16] MEDS: SILVER SULFADIAZINE 1% CR 50 GM JAR EXT SCH (08:53)
[2016-12-16] MEDS: DOCUSATE SODIUM/SENNA 50/8.6MG TAB PO SCH (08:56)
[2016-12-16] MEDS: DICLOFENAC SOD 1% GEL 100 GM TUBE EXT SCH (08:58)
[2016-12-16] MEDS: ASCORBIC ACID 500 MG TAB PO SCH (08:58)
[2016-12-16] MEDS: PANTOprazole SOD 40 MG TAB PO SCH (08:58)
[2016-12-16] MEDS: PREGABALIN 50 MG CAP PO SCH (08:58)
[2016-12-16] MEDS: ATORVASTATIN 40 MG TAB PO SCH (08:58)
[2016-12-16] MEDS: FLUTICASONE/SALMETEROL (ADVAIR) 500/50 INH 14 PUFF INH SCH (08:58)
[2016-12-16] MEDS: NYSTATIN POWDER 15GM BTL EXT SCH (08:58)
[2016-12-16] MEDS: ERYTHROMYCIN OP OINT 5 MG/GM 3.5 GM TUBE OP SCH (08:58)
[2016-12-16] MEDS: CEROVITE ADV FORMULA TAB PO SCH (08:58)
[2016-12-16] MEDS: TIOTROPIUM BROMIDE 5 PUFF/90 MCG INH INH SCH (08:58)
[2016-12-16] MEDS: CHOLECALCIFEROL 1000 INTER.UNIT TAB PO SCH (08:59)
[2016-12-16] MEDS: FAMOTIDINE 20 MG TAB PO SCH (08:59)
[2016-12-16] MEDS: PYRIDOXINE HCL 50 MG TAB PO SCH (08:59)
[2016-12-16] MEDS: ALLOPURINOL 100 MG TAB PO SCH (08:59)
[2016-12-16] MEDS: INSULIN GLARGINE SOLOSTAR 100 UNITS/ML 3 ML PEN SC SCH (09:03)
[2016-12-16] MEDS: INSULIN ASPART 100 UNITS/ML 3 ML PEN SC SCH ×2 (09:03→11:56)
[2016-12-16] MEDS: HEPARIN SOD 5000 UNIT/0.5 ML CARP SQ SCH (09:03)
[2016-12-16 11:18] VITALS: BP 108/60; PULSE 100; TEMP 36.5; O2SAT 97
--- NOTE | 2016-12-16 12:59 | Progress Note ---
Subjective Date of Service: Dec 16, 2016. Subjective Pt evaluation today including: conversation w/ patient, physical exam, chart review, lab review, review of inpatient medication list arm about the same no other new complaints ready for transfer to SNF Problem List Medical Problems: (1) Acute respiratory failure with hypoxia and hypercarbia Status: Acute (2) Altered mental status Status: Acute (3) Anasarca Status: Acute (4) Anasarca Status: Acute (5) Bilateral cellulitis of lower leg Status: Acute (6) Bilateral lower leg cellulitis Status: Acute (7) Cellulitis Status: Acute (8) Change in mental status Status: Acute (9) Chronic renal failure Status: Acute (10) CO2 retention Status: Acute (11) Contusion of multiple sites Status: Acute (12) Dehydration Status: Acute (13) Dyspnea on exertion Status: Acute (14) Failure of outpatient treatment Status: Acute (15) Fall Status: Acute (16) Fall Status: Acute (17) Fever Status: Acute (18) Fever Status: Acute (19) Generalized weakness Status: Acute (20) Headache Status: Acute (21) Hypercarbia Status: Acute (22) Hyperkalemia Status: Acute (23) Hypokalemia Status: Acute (24) Hypotension Status: Acute (25) Hypoventilation Status: Acute (26) Hypoxemia Status: Acute (27) Hypoxia Status: Acute (28) Lumbar strain Status: Acute (29) Metabolic acidosis Status: Acute (30) Nail avulsion of toe Status: Acute (31) Obesity Status: Acute (32) Respiratory failure Status: Acute (33) Weakness Status: Acute (34) Weight gain Status: Acute (35) Wrist pain Status: Acute Review of Systems all other ROS otherwise negative except for as above Objective Vital Signs Date Time Temp Pulse Resp B/P (MAP) Pulse Ox O2 Delivery O2 Flow Rate FiO2 12/16/16 11:18 36.5 100 20 97 Nasal Cannula 12/16/16 08:00 Nasal Cannula 2.0 12/16/16 07:20 36.5 100 20 108/60 (76) 97 2.0 12/16/16 00:10 Nasal Cannula 12/15/16 23:32 36.4 102 24 116/50 (72) 92 2.0 12/15/16 20:15 Nasal Cannula 12/15/16 19:19 94 Nasal Cannula 2.0 12/15/16 16:00 94 Nasal Cannula 2.0 CPAP 12/15/16 15:32 36.8 101 20 115/56 (75) 94 Nasal Cannula 2.0 Physical Exam General Appearance: no apparent distress Eyes: EOMI ENT: hearing grossly normal Neck: trachea midline Respiratory/Chest: no respiratory distress, no accessory muscle use Extremities: normal range of motion, + pertinent finding (LUE incision similar to yesterday - distal wound well approximated, dull redness not really c/w erythema nontender no fluctuance. upper wound well approximated c/d/i. mid/ upper wound around [address] proximal ~1-2cm area of mild dehiscence only to shallow underlying tissue no erythema) 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: rn travel II-XII nml as tested, alert, normal mood/affect Skin: + pertinent finding (see above) Laboratory Results Last 24 Hours Test 12/15/16 16:17 12/15/16 20:19 12/16/16 07:27 12/16/16 11:03 Bedside Glucose 138 mg/dl 187 mg/dl 226 mg/dl 214 mg/dl Assessment and Plan 61F with admitted on 12/03/2016 because of neck pain worse on palpation and headaches and a two week history of bilateral hand edema. Neck pain is better and is in her baseline - had soft tissue OMT x 2 treatments and voltaren gel QID (which can be continued if needed) Left arm recent procedure to graft by Dr. Conley -- mid/upper incision mild degree of dehiscence - topical erythromycin and local wound care, daily observation - but anticipate healing with conservative care. f/u dr conley in the office Bilateral lower ext edema with skin erythema, to a lesser degree hand edema-- -ongoing local care, compression, HD, time. edema has improved a lot over current hospital stay -did have IV albumin during hospital stay which may have helped. ongoing nephrology discretion as to ?continuing this during HD. at SNF would definitely provide nutritional support Hypophosphatemia: Replaced , and has been normal for several days in follow-up, case was with nephrology, stop phos binding and follow-up serial labs, PTH in normal range inguinal folds intertrigo continue Nystatin Powder, stable continue local wound care Bilateral lower extremity Cellulitis - related to venous stasis. continue doxy four more days, then +/- ongoing systemic vs local treatment based on clinical status End stage renal disease on dialysis -ongoing w Dr Leblanc abdominal pain and nausea/vomiting - was most heavily related to constipation during this hospital stay - improved Diastolic congestive heart failure, stable continue current care, encourage patient to continue fluid restriction to 1200ml daily, continue dialysis Type 2 diabetes, stable continue current care Morbid Obesity, COPD, Chronic pain, GERD: Stable continue current care, work on increased activity VTE Prophylaxis - Heparin 5000 units SQ Q12H utilized while in hospital stable for SNF Continued [facility] stay due to: home environment unsafe for pt Discharge planning: senior living facility
== END 2016-12-16 12:07 | DRG 314 ==
LOC: EDBD 11:35 → C.EDA 11:37 → C.2E 14:45 → ENRESERV 14:51 → OBSVTOIN 12-04 14:07 → EDBEDREQ 12-06 20:35 → ENRESERV 12-06 21:15 → C.MS4W 12-06 22:42 → ENRESERV 12-11 16:35 → C.2E 12-11 18:33 → ENRESERV 12-13 15:57 → C.MS2W 12-13 16:26
PROVIDERS: ADMIT Family Medicine; ATTEND Hospitalist
PROC: 5A1D70Z Performance of Urinary Filtration, Intermittent, Less than 6 Hours Per Day (ICD-10-PCS; principal; 2016-12-05)
DX: I95.9 Hypotension, unspecified (principal); N18.6 End stage renal disease; J96.02 Acute respiratory failure with hypercapnia; I50.30 Unspecified diastolic (congestive) heart failure; Z68.43 Body mass index [BMI] 50.0-59.9, adult; L03.115 Cellulitis of right lower limb; L03.116 Cellulitis of left lower limb; I13.2 Hypertensive heart and chronic kidney disease with heart failure and with stage 5 chronic kidney disease, or end stage renal disease; E66.2 Morbid (severe) obesity with alveolar hypoventilation; R60.9 Edema, unspecified; J44.9 Chronic obstructive pulmonary disease, unspecified; Z99.2 Dependence on renal dialysis; Z87.891 Personal history of nicotine dependence; Z88.2 Allergy status to sulfonamides; E11.21 Type 2 diabetes mellitus with diabetic nephropathy; Z79.4 Long term (current) use of insulin; E83.39 Other disorders of phosphorus metabolism; L30.4 Erythema intertrigo; K59.09 Other constipation; K21.9 Gastro-esophageal reflux disease without esophagitis; D63.1 Anemia in chronic kidney disease; E86.0 Dehydration; I87.8 Other specified disorders of veins

== ENCOUNTER 2016-12-21 12:04 | Emergency (ER) | payer OTHER, BC ==
[~2016-12-21] VITALS: Ht 165.1 cm; Wt 133.8 kg
[~2016-12-21 12:04] MED LIST changes: -CALC667C PO; +HYDR-4079 PO; +MCTP EXT; +METO100T44 PO; -METO1TAB69 PO; +NYSP EXT; -RXC5 PO
[2016-12-21 12:05] VITALS: TEMP 36.6; Ht 165.1 cm; Wt 133.8 kg
--- NOTE | 2016-12-21 12:56 | EMERGENCY ROOM VISIT NOTE ---
History Report prepared by [place]: Sumeet Enamorado Under the Supervision of: Dr. Shirlene Cleary M.D. First contact with patient: 12:42 Chief Complaint: PAIN (GENERALIZED) Stated Complaint: PAIN History of Present Illness The patient is a 61 year old female who presents to the Emergency Room with complaints of constant full body pain beginning last week. The patient states that she has pain everywhere including her neck and back, as well as back and groin sores that are "open and seeping." She notes that she was seen 6 days ago and was prescribed Dilaudid and Minden for her pain. She denies having a fever. She notes having cellulitis on her legs. She reports that she has been on a fluid restriction diet and has barely eaten anything in the past two days. The patient states that she is currently staying at [facility] for short term rehabilitation. Source of History: patient, family Onset: 6 days ago Position: other (global) Timing: constant Associated Symptoms: + neck pain, + back pain, No fevers Note: she also complains of cellulitis on her legs Review of Systems See HPI for pertinent positives & negatives. A total of 10 systems reviewed and were otherwise negative. Past Medical & Surgical Medical Problems: (1) Abdominal wall cellulitis (2) Abdominal wall cellulitis (3) Abrasion of toe of right foot (4) acidosis, cO2 retension, AMS (5) Acute hypercapnic respiratory failure (6) Acute kidney injury (7) Acute on chronic diastolic (congestive) heart failure (8) Acute respiratory failure with hypoxia and hypercapnia (9) Anemia (10) Arthritis (11) Asymptomatic bacteriuria (12) Cardiac arrest (13) Cellulitis of abdominal wall (14) Cervical Disc Degen (15) CHF (congestive heart failure) (16) Chronic kidney disease (CKD) stage G3b/A1, moderately decreased glomerular filtration rate (GFR) between 30-44 mL/min/1.73 square meter and albuminuria creatinine ratio less than 30 mg/g (17) CO2 narcosis (18) COPD (chronic obstructive pulmonary disease) (19) Cor pulmonale, chronic (20) Cystitis (21) Diab Mariama Wo Compl, Type Ii Or Unspec Type, Uncontrolled (22) Diabetes (23) Edema (24) ESRD on hemodialysis (25) Frequent falls (26) Hypercalcemia (27) Hypercalcemia (28) Hypercapnic respiratory failure (29) Hyperkalemia (30) Hyperphosphatemia (31) Hypokalemia (32) Hyponatremia (33) Metabolic alkalosis (34) Metabolic alkalosis with respiratory acidosis (35) Metabolic encephalopathy (36) Morbid obesity with BMI of 50.0-59.9, adult (37) Neck pain (38) Obesity hypoventilation syndrome (39) Obesity hypoventilation syndrome (40) Ovarian Cyst Nec/Nos (41) Pulmonary Collapse (42) Pulmonary nodules (43) Renal failure (ARF), acute on chronic (44) Sciatica (45) Venous stasis dermatitis of both lower extremities (46) Weakness Family History Cancer Diabetes mellitus Gallbladder disease Heart disease Lung disease Social History Smoking Status: Former Smoker Drug Use: none Marital Status: Housing Status: lives with family Occupation Status: unemployed Current/Historical Medications Scheduled Allopurinol (Zyloprim), 100 MG PO DAILY Ascorbic Acid (Vitamin C 500 mg), 1,000 MG PO DAILY Atorvastatin (Lipitor), 40 MG PO DAILY Cholecalciferol (Vitamin D3), 1,000 INTER.UNIT PO DAILY Doxycycline Monohydrate (Monodox), 100 MG PO DAILY Famotidine (Famotidine), 20 MG PO DAILY Fentanyl (Fentanyl), 1 PATCH TD q three days Fluticasone Prop/Salmeterol (Advair Diskus 500/50 60 Dose), 1 PUFF INH BID Home O2 Therapy (Oxygen), 3 LITERS NA CONTINOUS Hydrocodone/Acetaminophen 10MG/325MG (Minden 10MG/325MG), 1 TAB PO 5XD Insulin Aspart (Novolog Flexpen), 50 UNITS SQ W/BREAKFAST Insulin Aspart (Novolog Flexpen), 50 UNITS SQ W/LUNCH Insulin Aspart (Novolog Flexpen), 90 UNITS SQ W/SUPPER Insulin Glargine (Toujeo Solostar), 70 UNITS SC TID Insulin Glargine (Toujeo Solostar), 70 UNITS SC TID Lidocaine (Lidocaine), 1 PATCH TD QAM Melatonin (Melatonin), 3 MG PO HS Metoprolol Succ (Toprol Xl) (Toprol-Xl ), 150 MG PO UD Multiple Vitamins W/ Minerals (One Daily For Women), 1 TAB PO DAILY Nystatin (Nystop), 1 APPLN EXT BID Pregabalin (Lyrica), 50 MG PO QPM Pyridoxine (Vitamin B6), 200 MG PO DAILY Tiotropium [place] (Spiriva Handihaler), 1 CAP INH DAILY Vitamin E (Vitamin E), 800 INTER.UNIT PO DAILY Scheduled PRN Hydrocodone/Acetaminophen 10MG/325MG (Minden 10MG/325MG), 1 TAB PO Q4H PRN for Pain Insulin Aspart (Novolog Flexpen), 40 UNITS SQ HS PRN for Late Night Snack Ipratropium-Albuterol (Duoneb), 1 TREATMENT INH Q6H PRN for SOB/Wheezing Lidocaine (Lidovex), 1 APPLN TOP Q6 PRN for Miconazole Nitrate (Desenex Shake Powder), 1 APPLN EXT PRN PRN for Affected Skin Folds Ondansetron Hcl (Zofran), 4 MG PO Q6 PRN for Nausea Allergies Coded Allergies: Daptomycin (Verified Allergy, Intermediate, HIVES/ITCHING, 12/21/16) itching Sulfamethoxazole w/Trimethoprim (Verified Allergy, Intermediate, RASH, ) Iodine (Verified Allergy, Unknown, 12/21/16) Shellfish (Verified Allergy, Unknown, 12/21/16) Codeine (Verified Adverse Reaction, Mild, NAUSEA, 12/21/16) has tolerated morphine Uncoded Allergies: kristina wipes (Allergy, Severe, red rash, excoriation, 09/19/16) comfort baths (Adverse Reaction, Severe, rash, "breaks out all over", ) Physical Exam Vital Signs Date Time Temp Pulse Resp B/P (MAP) Pulse Ox O2 Delivery O2 Flow Rate FiO2 12/21/16 16:02 92/40 12/21/16 16:00 96 15 92/40 100 Nasal Cannula 2.5 12/21/16 15:55 81/44 12/21/16 15:30 92 16 83/69 99 Nasal Cannula 2.5 12/21/16 15:00 93 12 100 12/21/16 14:02 99 22 106/94 98 Room Air 2.5 12/21/16 12:19 100 12/21/16 12:05 36.6 88 15 149/67 96 Nasal Cannula 2.0 Physical Exam Vital signs reviewed. General: Morbidly obese, chronically ill appearing, in no significant distress. HEENT: No scleral icterus, PERRLA, neck supple. Atraumatic. Cardiovascular: Regular rate and rhythm, no extra sounds. Pulmonary: Clear to auscultation bilaterally, normal work of breathing. Abdomen: Soft, nontender, nondistended, positive bowel sounds. Musculoskeletal: Atraumatic, no peripheral edema. Neurologic: Patient awake alert and oriented x 3, full strength in all 4 extremities. Cranial nerves 2 through 12 grossly intact. Skin: Warm, dry. Skin breakdown of perineal with sacral decubitus ulcer, crusting calloused skin to lower pannus with significant yeast dermatitis and early breakdown of inguinal skin folds. Chronic venous stasis changes of bilateral lower extremities. Medical Decision & Procedures Laboratory Results 12/21/16 14:25 Red Blood Count 3.25, Mean Corpuscular Volume 105.2, Mean Corpuscular Hemoglobin 31.7, Mean Corpuscular Hemoglobin Concent 30.1, Mean Platelet Volume 9.6, Neutrophils (%) (Auto) 77.8, Lymphocytes (%) (Auto) 9.0, Monocytes (%) ( Auto) 9.1, Eosinophils (%) (Auto) 3.5, Basophils (%) (Auto) 0.3, Neutrophils # ( Auto) 8.87, Lymphocytes # (Auto) 1.03, Monocytes # (Auto) 1.04, Eosinophils # ( Auto) 0.40, Basophils # (Auto) 0.03 12/21/16 14:25 Test 12/21/16 14:25 White Blood Count 11.40 K/uL (4.8-10.8) Red Blood Count 3.25 M/uL (4.2-5.4) Hemoglobin 10.3 g/dL (12.0-16.0) Hematocrit 34.2 % (37-47) Mean Corpuscular Volume 105.2 fL (80-100) Mean Corpuscular Hemoglobin 31.7 pg (25-34) Mean Corpuscular Hemoglobin Concent 30.1 g/dl (32-36) Platelet Count 229 K/uL (130-400) Mean Platelet Volume 9.6 fL (7.4-10.4) Neutrophils (%) (Auto) 77.8 % Lymphocytes (%) (Auto) 9.0 % Monocytes (%) (Auto) 9.1 % Eosinophils (%) (Auto) 3.5 % Basophils (%) (Auto) 0.3 % Neutrophils # (Auto) 8.87 K/uL (1.4-6.5) Lymphocytes # (Auto) 1.03 K/uL (1.2-3.4) Monocytes # (Auto) 1.04 K/uL (0.11-0.59) Eosinophils # (Auto) 0.40 K/uL (0-0.5) Basophils # (Auto) 0.03 K/uL (0-0.2) RDW Standard Deviation 81.3 fL (36.4-46.3) RDW Coefficient of Variation 21.1 % (11.5-14.5) Immature Granulocyte % (Auto) 0.3 % Immature Granulocyte # (Auto) 0.03 K/uL (0.00-0.02) Polychromasia 1+ Anisocytosis PRESENT Tear Drop Cells 1+ Anion Gap 9.0 mmol/L (3-11) Est Creatinine Clear Calc Drug Dose 10.8 ml/min Estimated GFR () 6.2 Estimated GFR (Non- 5.3 BUN/Creatinine Ratio 3.2 (10-20) Calcium Level 8.8 mg/dl (8.5-10.1) Magnesium Level 2.0 mg/dl (1.8-2.4) Total Bilirubin 0.4 mg/dl (0.2-1) Direct Bilirubin 0.1 mg/dl (0-0.2) Aspartate Amino Transf (AST/SGOT) 24 U/L (15-37) Alanine Aminotransferase (ALT/SGPT) 16 U/L (12-78) Alkaline Phosphatase 150 U/L (45-117) Troponin I < 0.015 ng/ml (0-0.045) Total Protein 7.7 gm/dl (6.4-8.2) Albumin 2.3 gm/dl (3.4-5.0) Thyroid Stimulating Hormone (TSH) 2.750 uIu/ml (0.300-4.500) Laboratory results per my review. Medications Administered Medications (Trade) Dose Ordered Sig/Duyen Route Start Time Stop Time Status Last Admin Dose Admin Fentanyl (Duragesic Patch) 50 mcg NOW STAT TD 12/21/16 12:58 12/21/16 13:01 DC 12/21/16 13:21 50 MCG Acetaminophen/ Hydrocodone Bitart (Minden 10325 Tab) 1 tab NOW STAT PO 12/21/16 12:58 12/21/16 13:01 DC 12/21/16 13:23 1 TAB Lorazepam (Ativan Inj) 1 mg NOW STAT IV 12/21/16 13:32 12/21/16 13:33 DC 12/21/16 13:38 1 MG ECG Indication: other (global pain) Rate (beats per minute): 100 Rhythm: normal sinus Findings: no acute ischemic change, no ectopy ED Course 1248: Past medical records reviewed. The patient was evaluated in room C7. A complete history and physical examination was performed. 1258: Minden 10/325 1 tab PO, Fentanyl; 50mcg TD 1332: Lorazepam 1mg IV 1432: I reevaluated and updated the patient. She is falling asleep sitting up. 1525: Upon reevaluation, the patient appeared to have improvement of her symptoms. I discussed findings with her. She verbalized agreement of the treatment plan. The patient was discharged home. Medical Decision Differential diagnosis: Etiologies such as cellulitis, abscess, MRSA infection, DVT, necrotizing fasciitis, dermatitis, drug eruption, as well as others were entertained. This patient was evaluated and appeared to be in significant discomfort. IV access was obtained and laboratory work was drawn. The patient was initially given hydrocodone 10/325 as well as a 50 g fentanyl patch. Patient continued to be anxious and restless. She was given Ativan 0.5 mg IV. Laboratory work was eventually obtained and reveals no significant changes from previous. Patient does have chronic renal failure and is on hemodialysis. Electrolytes appeared to be stable. I suspect the patient's pain is a combination of her immobility, morbid obesity, chronic medical conditions and anxiety. She was given a prescription for fentanyl patch and will use hydrocodone when necessary for severe pain. She has been discharged back to [facility] for further pain management by the physician on staff. Patient and her were informed of the findings and plan. Medication Reconcilliation Current Medication List: was personally reviewed by me Blood Pressure Screening Patient's blood pressure: Elevated blood pressure Blood pressure disposition: Elevated BP felt to be situational Impression Primary Impression: Intractable pain Additional Impressions: Severe obesity Skin ulcer of perineum, limited to breakdown of skin Sacral decubitus ulcer End-stage renal disease on hemodialysis Scribe Attestation The scribe's documentation has been prepared under my direction and personally reviewed by me in its entirety. I confirm that the note above accurately reflects all work, treatment, procedures, and medical decision making performed by me. Departure Information Dispostion Home / Self-Care Prescriptions Fentanyl (Fentanyl) 50 Mcg Tdsy 1 PATCH TD q three days for 15 Days, #5 PATCH Prov: Shirlene Cleary M.D. 12/21/16 Referrals Emily Isaac C.R.N.P (PCP) Forms HOME CARE DOCUMENTATION FORM, IMPORTANT VISIT INFORMATION, WORK / SCHOOL INSTRUCTIONS Patient Instructions My [facility] Additional Instructions Diagnosis: Intractable pain Fentanyl patch 50 g, change every 3 days. Contact your primary care physician for further medication management. Hydrocodone as prescribed by your physician. Continue with dialysis. Return to the emergency department for worsening of symptoms or any medical concerns. Problem Qualifiers
[2016-12-21] MEDS ORDERED: HYDROCODONE/ACETAMI 10/325 TAB PO STA (12:58)
[2016-12-21] MEDS ORDERED: FENTANYL 50 MCG/HR TDSY TD STA (12:58)
[2016-12-21] MEDS ORDERED: LORAZEPAM 2 MG/ML 1 ML VIAL IV STA (13:32)
[2016-12-21] MEDS ORDERED: ONDA4TAB46 PO (13:43)
[2016-12-21] MEDS ORDERED: MELA3TAB PO (13:43)
[2016-12-21] MEDS ORDERED: LIDO1CRE TOP (13:43)
[2016-12-21] MEDS ORDERED: INSU1.2I SC (13:43)
[2016-12-21] MEDS ORDERED: HYDR-4079 PO (13:43)
[2016-12-21] MEDS ORDERED: LYR50 PO (13:45)
[2016-12-21] MEDS ORDERED: CHOL1000 PO (13:47)
[2016-12-21 15:04] LABS: HEMATOCRIT 34.2 % (37-47); MEAN CELL VOLUME 105.2 fL (80-100); MEAN CORPUSCULAR HEMOGLOBIN 31.7 pg (25-34); MEAN CORPUSCULAR HGB CONC 30.1 g/dl (32-36); MEAN PLATELET VOLUME 9.6 fL (7.4-10.4); PLATELET COUNT 229 K/uL (130-400); RED BLOOD COUNT 3.25 M/uL (4.2-5.4)
[2016-12-21 15:08] LABS: ALKALINE PHOSPHATASE 150 U/L (45-117); ALT/SGPT 16 U/L (12-78); AST/SGOT 24 U/L (15-37); BLOOD UREA NITROGEN 24 mg/dl (7-18); BUN/CREATININE RATIO 3.2 (10-20); CALCIUM 8.8 mg/dl (8.5-10.1); CARBON DIOXIDE 29 mmol/L (21-32); CHLORIDE 96 mmol/L (98-107); GLUCOSE 102 mg/dl (70-99); POTASSIUM 4.4 mmol/L (3.5-5.1); SODIUM 134 mmol/L (136-145)
[2016-12-21 15:12] LABS: ANISOCYTOSIS PRESENT; BASO % 0.3 %; BASO ABS # 0.03 K/uL (0-0.2); COMPLETE YES; EOS % 3.5 %; IG% 0.3 %; LYMPH ABS # 1.03 K/uL (1.2-3.4); MONO % 9.1 %; NEUT % 77.8 %; POLYCHROMASIA 1+; TEAR DROP CELLS 1+
[2016-12-21] MEDS ORDERED: DRGTP50 TD (15:20)
[2016-12-21 16:00] VITALS: PULSE 96; O2SAT 100
[2016-12-21 16:02] VITALS: BP 92/40
== END 2016-12-21 16:02 | disposition home or self-care (01) ==
LOC: EDBD 12:04 → C.EDC 12:06
DX: R52 Pain, unspecified (principal); E66.2 Morbid (severe) obesity with alveolar hypoventilation; K62.6 Ulcer of anus and rectum; L89.159 Pressure ulcer of sacral region, unspecified stage; N18.6 End stage renal disease; Z99.2 Dependence on renal dialysis; L03.115 Cellulitis of right lower limb; L03.116 Cellulitis of left lower limb; D64.9 Anemia, unspecified; M19.90 Unspecified osteoarthritis, unspecified site; E11.22 Type 2 diabetes mellitus with diabetic chronic kidney disease; J44.9 Chronic obstructive pulmonary disease, unspecified; E83.52 Hypercalcemia; E83.39 Other disorders of phosphorus metabolism; E87.1 Hypo-osmolality and hyponatremia; E87.3 Alkalosis; G93.41 Metabolic encephalopathy; I50.9 Heart failure, unspecified; N83.209 Unspecified ovarian cyst, unspecified side; R91.8 Other nonspecific abnormal finding of lung field; M50.30 Other cervical disc degeneration, unspecified cervical region; I87.8 Other specified disorders of veins; Z87.891 Personal history of nicotine dependence; Z79.4 Long term (current) use of insulin; Z83.3 Family history of diabetes mellitus

== ENCOUNTER 2016-12-22 06:56 | Inpatient (IN) | payer OTHER, BC ==
[~2016-12-22] VITALS: Ht 165.1 cm; Wt 132.1 kg
[~2016-12-22 06:56] MED LIST changes: +DRGTP50 TD; +LIDO1CRE TOP; +MELA3TAB PO; +ONDA4TAB46 PO
[2016-12-22] MEDS ORDERED: NALOXONE HCL 0.4 MG/1 ML VIAL/CARP ONE (06:59)
[2016-12-22] MEDS ORDERED: DOPamine 400MG / 250ML D5W ONE (07:04)
[2016-12-22 07:27] LABS: ISTAT CREATININE 6.9 mg/dl (0.6-1.3); ISTAT HEMOGLOBIN 11.2 g/dl (12.0-16.0); ISTAT IONIZED CALCIUM 1.37 mmol/l (1.12-1.32)
--- NOTE | 2016-12-22 07:33 | EMERGENCY ROOM VISIT NOTE ---
History Report prepared by [place]: Lorie Nichole Under the Supervision of: Dr. Pavel Reina M.D. First contact with patient: 06:57 Chief Complaint: CARDIAC ARREST Stated Complaint: POST CARDIAC ARREST History of Present Illness The patient is a 61 year old female who presents to the Emergency Room in cardiac arrest that began just prior to arrival. Per EMS the patient was found this morning in asystole. EMS reports that the patient was given 1 dose of bicarb, 1 dose of calcium and 3 doses of epinephrine. EMS states that the patient has had a blood pressure, was breathing, and had a pulse, but is still unresponsive. EMS states that the patient was evaluated in the emergency department yesterday. EMS states that they are unsure when her last dialysis was. EMS states that the patient had a Fentanyl patch on that they took off. EMS denies any report of the patient given any paralytics or sedatives. Source of History: EMS History Limited By: cardiac arrest Onset: prior to arrival Position: other (global) Quality: other (cardiac arrest) Review of Systems The history and ROS are limited secondary to the patient's cardiac arrest. Past Medical & Surgical Medical Problems: (1) Abdominal wall cellulitis (2) Abdominal wall cellulitis (3) Abrasion of toe of right foot (4) acidosis, cO2 retension, AMS (5) Acute hypercapnic respiratory failure (6) Acute kidney injury (7) Acute on chronic diastolic (congestive) heart failure (8) Acute respiratory failure with hypoxia and hypercapnia (9) Anemia (10) Arthritis (11) Asymptomatic bacteriuria (12) Cardiac arrest (13) Cellulitis of abdominal wall (14) Cervical Disc Degen (15) CHF (congestive heart failure) (16) Chronic kidney disease (CKD) stage G3b/A1, moderately decreased glomerular filtration rate (GFR) between 30-44 mL/min/1.73 square meter and albuminuria creatinine ratio less than 30 mg/g (17) CO2 narcosis (18) COPD (chronic obstructive pulmonary disease) (19) Cor pulmonale, chronic (20) Cystitis (21) Diab Mariama Wo Compl, Type Ii Or Unspec Type, Uncontrolled (22) Diabetes (23) Edema (24) ESRD on hemodialysis (25) Frequent falls (26) Hypercalcemia (27) Hypercalcemia (28) Hypercapnic respiratory failure (29) Hyperkalemia (30) Hyperphosphatemia (31) Hypokalemia (32) Hyponatremia (33) Metabolic alkalosis (34) Metabolic alkalosis with respiratory acidosis (35) Metabolic encephalopathy (36) Morbid obesity with BMI of 50.0-59.9, adult (37) Neck pain (38) Obesity hypoventilation syndrome (39) Obesity hypoventilation syndrome (40) Ovarian Cyst Nec/Nos (41) Pulmonary Collapse (42) Pulmonary nodules (43) Renal failure (ARF), acute on chronic (44) Sciatica (45) Venous stasis dermatitis of both lower extremities (46) Weakness Family History Cancer Diabetes mellitus Gallbladder disease Heart disease Lung disease Social History Smoking Status: Former Smoker Drug Use: none Marital Status: Housing Status: lives with family Occupation Status: unemployed Current/Historical Medications Scheduled Allopurinol (Zyloprim), 100 MG PO DAILY Ascorbic Acid (Vitamin C 500 mg), 1,000 MG PO DAILY Atorvastatin (Lipitor), 40 MG PO DAILY Cholecalciferol (Vitamin D3), 1,000 INTER.UNIT PO DAILY Doxycycline Monohydrate (Monodox), 100 MG PO DAILY Famotidine (Famotidine), 20 MG PO DAILY Fentanyl (Fentanyl), 1 PATCH TD q three days Fluticasone Prop/Salmeterol (Advair Diskus 500/50 60 Dose), 1 PUFF INH BID Home O2 Therapy (Oxygen), 3 LITERS NA CONTINOUS Hydrocodone/Acetaminophen 10MG/325MG ([place] 10MG/325MG), 1 TAB PO 5XD Insulin Aspart (Novolog Flexpen), 50 UNITS SQ W/BREAKFAST Insulin Aspart (Novolog Flexpen), 50 UNITS SQ W/LUNCH Insulin Aspart (Novolog Flexpen), 90 UNITS SQ W/SUPPER Insulin Glargine (Toujeo Solostar), 70 UNITS SC TID Insulin Glargine (Toujeo Solostar), 70 UNITS SC TID Lidocaine (Lidocaine), 1 PATCH TD QAM Melatonin (Melatonin), 3 MG PO HS Metoprolol Succ (Toprol Xl) (Toprol-Xl ), 150 MG PO UD Multiple Vitamins W/ Minerals (One Daily For Women), 1 TAB PO DAILY Nystatin (Nystop), 1 APPLN EXT BID Pregabalin (Lyrica), 50 MG PO QPM Pyridoxine (Vitamin B6), 200 MG PO DAILY Tiotropium [place] (Spiriva Handihaler), 1 CAP INH DAILY Vitamin E (Vitamin E), 800 INTER.UNIT PO DAILY Scheduled PRN Hydrocodone/Acetaminophen 10MG/325MG ([place] 10MG/325MG), 1 TAB PO Q4H PRN for Pain Insulin Aspart (Novolog Flexpen), 40 UNITS SQ HS PRN for Late Night Snack Ipratropium-Albuterol (Duoneb), 1 TREATMENT INH Q6H PRN for SOB/Wheezing Lidocaine (Lidovex), 1 APPLN TOP Q6 PRN for Miconazole Nitrate (Desenex Shake Powder), 1 APPLN EXT PRN PRN for Affected Skin Folds Ondansetron Hcl (Zofran), 4 MG PO Q6 PRN for Nausea Allergies Coded Allergies: Daptomycin (Verified Allergy, Intermediate, HIVES/ITCHING, 12/21/16) itching Sulfamethoxazole w/Trimethoprim (Verified Allergy, Intermediate, RASH, ) Iodine (Verified Allergy, Unknown, 12/21/16) Shellfish (Verified Allergy, Unknown, 12/21/16) Codeine (Verified Adverse Reaction, Mild, NAUSEA, 12/21/16) has tolerated morphine Uncoded Allergies: kristina wipes (Allergy, Severe, red rash, excoriation, 09/19/16) comfort baths (Adverse Reaction, Severe, rash, "breaks out all over", ) Physical Exam Vital Signs Date Time Temp Pulse Resp B/P (MAP) Pulse Ox O2 Delivery O2 Flow Rate FiO2 12/22/16 07:43 98 12 78/41 99 Mechanical Ventilator 15.0 100 12/22/16 07:41 98 16 75/45 99 Mechanical Ventilator 15.0 100 12/22/16 07:38 99 14 70/45 98 Mechanical Ventilator 15.0 100 12/22/16 07:35 100 12/22/16 07:31 102 14 66/48 97 Mechanical Ventilator 15.0 100 12/22/16 07:30 100 12/22/16 07:29 102 12/22/16 07:29 102 16 70/43 97 Ambu-Bag 15.0 12/22/16 07:26 104 16 66/41 97 Ambu-Bag 15.0 12/22/16 07:23 106 14 70/44 97 Ambu-Bag 15.0 12/22/16 07:23 106 12/22/16 07:21 80 12 67/42 96 Ambu-Bag 15.0 12/22/16 07:19 78 12 65/42 98 Ambu-Bag 15.0 12/22/16 07:17 79 12/22/16 07:16 82 14 64/39 99 Ambu-Bag 15.0 12/22/16 07:13 82 12/22/16 07:12 82 12 80/50 99 Ambu-Bag 15.0 12/22/16 07:08 87 12/22/16 07:07 110 12 113/56 97 Ambu-Bag 15.0 12/22/16 07:07 88 12/22/16 06:56 Ambu-Bag 15.0 12/22/16 06:56 Ambu-Bag 15.0 Physical Exam GENERAL: Critically ill appearing, no distress, chronically unwell, morbidly obese. Intubated. HEENT: No acute trauma, normocephalic atraumatic, mucous membranes moist, no nasal congestion, no scleral icterus. Pupils are nonreactive NECK: No stridor, no adenopathy, no meningismus, trachea is midline. CHEST: Good chest rise. Neil device doing compressions on arrival. LUNGS: Crackles in bilateral lung rain. HEART: Regular rate and rhythm. No murmurs, rubs, gallops appreciated. ABDOMEN: Soft, nontender, distant bowel sounds, no masses appreciated, no peritonitis. BACK: No midline tenderness, no CVA tenderness EXTREMITIES: Modeling of the extremities. Normal motion all extremities, no cyanosis, no edema. NEUROLOGIC: GCS 3T SKIN: Modeling of the skin. No rash, no jaundice, no diaphoresis. Medical Decision & Procedures ER Provider Diagnostic Interpretation: X ray results are stated below per my interpretation and the radiologist's interpretation. CHEST ONE VIEW PORTABLE CLINICAL HISTORY: Cardiac Arrest dyspnea COMPARISON STUDY: 12/03/2016 FINDINGS: PermCath in superior vena cava. Endotracheal tube 5 cm above the wallace. Moderate cardiomegaly. Prominence of the pulmonary vasculature suggesting potential early pulmonary edema. IMPRESSION: 1. Endotracheal tube 5 cm above the wallace. 2. Moderate cardiomegaly. 3. Potential developing pulmonary edema versus congestive failure The above report was generated using voice recognition software. It may contain grammatical, syntax or spelling errors. Electronically signed by: Mateo Bone M.D. 12/22/2016 7:35 AM Dictated Date/Time: 12/22/2016 7:35 AM Laboratory Results 12/22/16 07:11 Red Blood Count 2.99, Mean Corpuscular Volume 109.4, Mean Corpuscular Hemoglobin 32.1, Mean Corpuscular Hemoglobin Concent 29.4, Mean Platelet Volume 9.6 12/22/16 07:11 Test 12/22/16 07:11 12/22/16 07:17 White Blood Count 14.69 K/uL (4.8-10.8) Red Blood Count 2.99 M/uL (4.2-5.4) Hemoglobin 9.6 g/dL (12.0-16.0) Hematocrit 32.7 % (37-47) Mean Corpuscular Volume 109.4 fL (80-100) Mean Corpuscular Hemoglobin 32.1 pg (25-34) Mean Corpuscular Hemoglobin Concent 29.4 g/dl (32-36) Platelet Count 189 K/uL (130-400) Mean Platelet Volume 9.6 fL (7.4-10.4) RDW Standard Deviation 84.8 fL (36.4-46.3) RDW Coefficient of Variation 21.2 % (11.5-14.5) Nucleated RBC Absolute Count (auto) 0.22 K/uL (0-0) Neutrophils % (Manual) 80.9 % Lymphocytes % (Manual) 13.9 % Monocytes % (Manual) 1.7 % Metamyelocytes % 0.9 % Myelocytes % 2.6 % Nucleated Red Blood Cells % 1.5 % Neutrophils # (Manual) 11.88 K/uL (1.4-6.5) Total Absolute Neutrophils 11.88 K/uL (1.4-6.5) Lymphocytes # (Manual) 2.04 K/uL (1.2-3.4) Total Absolute Lymphocytes 2.04 K/uL (1.2-3.4) Monocytes # (Manual) 0.25 K/uL (0.11-0.59) Metamyelocytes # 0.13 K/uL (0-0) Myelocytes # 0.38 K/uL (0-0) Toxic Granulation 1+ Toxic Vacuolation 1+ Anisocytosis PRESENT Macrocytosis PRESENT Echinocytes 1+ Prothrombin Time 12.6 SECONDS (9.0-12.0) Prothromb Time International Ratio 1.2 (0.9-1.1) Activated Partial Thromboplast Time 34.7 SECONDS (21.0-31.0) Partial Thromboplastin Ratio 1.3 Estimated GFR () 5.0 Estimated GFR (Non- 4.4 BUN/Creatinine Ratio 3.2 (10-20) Calcium Level 10.1 mg/dl (8.5-10.1) Total Creatine Kinase 88 U/L (26-192) Creatine Kinase MB 3.6 ng/ml (0.5-3.6) Creatine Kinase MB Ratio 4.1 (0-3.0) Troponin I 0.112 ng/ml (0-0.045) Bedside Hemoglobin 11.2 g/dl (12.0-16.0) Bedside Hematocrit 33 % (37-47) Bedside Sodium 135 mEq/L (135-144) Bedside Potassium 5.7 mEq/L (3.3-5.0) Bedside Chloride 100 mEq/L (101-112) Bedside Total CO2 23 mEq/l (24-31) Anion Gap 18.0 mmol/L (16-25) Bedside Blood Urea Nitrogen 32 mg/dl (7-18) Bedside Creatinine 6.9 mg/dl (0.6-1.3) Bedside Glucose (other) 184 mg/dl (70-99) Bedside Ionized Calcium (Stephen) 1.37 mmol/l (1.12-1.32) Laboratory results as reviewed by me. ECG Indication: other (cardiac arrest) Rate (beats per minute): 106 Rhythm: sinus tachycardia Findings: no ectopy, other (intraventricular block, no STEMI) Comparison ECG Date: 12/21/16 Change: When compared to EKG done on 12/21/16, the intraventricular block is an acute change. ED Course 0636: A code Blue was initiated. 0649: Per the front desk monitor the patient's pulse was lost, and CPR began. 0656: The patient was evaluated in room B1. A complete history and physical exam was performed. 0659: Calcium was administered. 0700: The patient was administered Narcan 0.4 mg .route. 0701: Compressions were halted and a strong pulse was palpated. 0704: Ordered Dopamine HCl/Dextrose 400 mg .route. 0707: I discussed the patients case with Dr. Beasley, Intensive Care. He will evaluate the patient in the ICU for further evaluation and treatment. 0715: I had a prolonged discussion with the patient's with Waqar and Erma present. He was very clear that if the patient were to go into cardiac arrest again, CPR should not be performed. The patient is on a dopamine drip at this time and is hypotensive. 0730: I reevaluated the patient and she is on max doses of dopamine and further bicarb at this time. The patient is mildly hypotensive. 0753: I discussed the patient's case with Dr. Hall, [facility]. He is going to evaluate the patient for further treatment. I additionally discussed the patient's pH results of 6.9 with him. 0808: I reevaluated the patient and Dr. Beasley was discussing with the family that they would like no further escalation of care. The patient will be taken to the ICU for further comfort measures. Medical Decision Differential: Sepsis, Infectious (UTI/Pneumonia/Meningitis/etc), Metabolic/ Electrolyte Abnormality, Cardiac, Hepatic, Endocrine, Toxicologic, Neurologic, amongst other pathologies entertained. 61 yr old female arrives for evaluation s/p cardiac arrest. Arrested reportedly in from of nursing staff this morning after what sounds like a respiratory/ams issue, but this is somewhat unclear. Reportedly continuous CPR until EMS arrival and found to be in asystole. After intubation/epix3/bicarb/ calcium there was ROSC. Transport initiated and patient re-arrested in route. Continuos high quality acls with Neil device in process on arrival. GCS 3T, no pupillary movement and no rhythm on arrival. Given further epi, bicarb, calcium as well as Narcan given history of narcotics. Continuous CPR and after several minutes repeat check revealed ROSC with strong carotid pulses. EKG without STEMI. Initial istat with elevated Cr, mild bump K. CXR with some developing pulm edema. ET Tube mildly high but with good breath sounds will hold on advancing as already with plan to go to ICU. Unclear initial etiology of arrest though with her history respiratory or cardiac clearly are both possibilities. After initially stabilizing her on Dopamine I went and discussed case at length with and family. It is clear that patient would not want the level of life sustaining measures that she is currently receiving thus plan to not escalate care reviewed and agreed upon. Dr Beasley in to talk to family and further confirms this plan. Patient transferred to ICU for further management and monitoring. Head Trauma GCS Score: 3 Medication Reconcilliation Current Medication List: was personally reviewed by me Consults Time Called: 703 Consulting Physician: Dr. Beasley, Intensive Care Returned Call: 07 I discussed the patients case with Dr. Baesley, Intensive Care. He will evaluate the patient in the ICU for further evaluation and treatment. Additional Consults: Time Called: 747 Consulted Physician: HARPREET Call Returned Call: [phone] Additional Comments: I discussed the patient's case with HARPREET Call. He is going to evaluate the patient for further treatment. I additionally discussed the patient's pH results of 6.9 with him. Impression Primary Impression: Cardiac arrest Additional Impressions: Respiratory failure Acidosis Critical Care I have personally spent greater than 90 minutes of critical care time in the direct management of this patient. This was a life/limb threatening event. This includes time spent evaluating patient, direct bedside care, chart review, placing orders, interpretation of diagnostic studies, discussion with consultants, patient, and family members, as well as other required patient management activities. This 90 minutes is in excess of all separately billable procedures. Scribe Attestation The scribe's documentation has been prepared under my direction and personally reviewed by me in its entirety. I confirm that the note above accurately reflects all work, treatment, procedures, and medical decision making performed by me. Departure Information Dispostion Being Evaluated By Hospitalist Referrals Emily Isaac, C.R.N.P (PCP) Problem Qualifiers
[2016-12-22] MEDS ORDERED: DOPamine 400MG / D5W 400 MG IV STA (07:34)
[2016-12-22 07:35] LABS: HEMATOCRIT 32.7 % (37-47); MEAN CELL VOLUME 109.4 fL (80-100); MEAN CORPUSCULAR HEMOGLOBIN 32.1 pg (25-34); MEAN CORPUSCULAR HGB CONC 29.4 g/dl (32-36); MEAN PLATELET VOLUME 9.6 fL (7.4-10.4); PLATELET COUNT 189 K/uL (130-400); RED BLOOD COUNT 2.99 M/uL (4.2-5.4); WHITE BLOOD COUNT 14.69 K/uL (4.8-10.8)
--- NOTE | 2016-12-22 07:37 | DIAGNOSTIC IMAGING REPORT ---
CHEST ONE VIEW PORTABLE CLINICAL HISTORY: Cardiac Arrest dyspnea COMPARISON STUDY: 12/03/2016 FINDINGS: PermCath in superior vena cava. Endotracheal tube 5 cm above the wallace. Moderate cardiomegaly. Prominence of the pulmonary vasculature suggesting potential early pulmonary edema. IMPRESSION: 1. Endotracheal tube 5 cm above the wallace. 2. Moderate cardiomegaly. 3. Potential developing pulmonary edema versus congestive failure The above report was generated using voice recognition software. It may contain grammatical, syntax or spelling errors. Electronically signed by: Mateo Bone M.D. 12/22/2016 7:35 AM Dictated Date/Time: 12/22/2016 7:35 AM
[2016-12-22] MEDS ORDERED: ICU PROTOCOL FOR HYPERGLYCEMIA PRN (07:45)
[2016-12-22] MEDS ORDERED: FENTANYL CITRATE INJ 50 MCG/1 ML 2 ML VIAL IV PRN (07:45)
[2016-12-22] MEDS ORDERED: SEVERE STRESS LEVEL ONE (07:45)
[2016-12-22] MEDS ORDERED: HEPARIN SOD 5000 UNIT/0.5 ML CARP SQ SCH (07:45)
[2016-12-22] MEDS ORDERED: INSULIN PROTOCOL GOAL RANGE ONE (07:45)
[2016-12-22 07:46] LABS: INR 1.2 (0.9-1.1); PARTIAL THROMBOPLASTIN RATIO 1.3; PROTHROMBIN TIME (PATIENT) 12.6 SECONDS (9.0-12.0)
[2016-12-22 07:57] LABS: BLOOD UREA NITROGEN 28 mg/dl (7-18); BUN/CREATININE RATIO 3.2 (10-20); CALCIUM 10.1 mg/dl (8.5-10.1); CARBON DIOXIDE 19 mmol/L (21-32); CHLORIDE 101 mmol/L (98-107); CKMB/CK RATIO 4.1 (0-3.0); CREATININE 8.74 mg/dl (0.60-1.20); GLUCOSE 196 mg/dl (70-99); POTASSIUM 5.9 mmol/L (3.5-5.1); SODIUM 138 mmol/L (136-145)
[2016-12-22 08:02] LABS: ISTAT ARTERIAL BLOOD GAS HCO3 19 meq/L (19-24); ISTAT ARTERIAL BLOOD GAS PCO2 93 mmHg (35-46); ISTAT ARTERIAL BLOOD GAS PO2 136 mmHg (80-95); ISTAT ARTERIAL BLOOD GAS pH 6.92 (7.35-7.45); ISTAT CARBON DIOXIDE 22 mEq/l (24-31)
[2016-12-22 08:07] LABS: ANISOCYTOSIS PRESENT; COMPLETE YES; ECHINOCYTES 1+; LYMPH ABS # 2.04 K/uL (1.2-3.4); LYMPHOCYTE % 13.9 %; META ABS # 0.13 K/uL (0-0); METAMYELOCYTE % 0.9 %; MYELOCYTE % 2.6 %; NEUTROPHILS % 80.9 %; TOXIC GRANULATION 1+; VACUOLIZATION 1+
[2016-12-22] MEDS ORDERED: INSULIN IV INFUSION PROTOCOL SCH (08:07)
[2016-12-22 08:11] VITALS: O2SAT 99
--- NOTE | 2016-12-22 08:14 | History and Physical ---
History & Physical Date & Time of Service: Dec 22, 2016 at 08:02 Chief Complaint: Post Cardiac Arrest Primary Care Physician: Emily Isaac C.R.N.P History of Present Illness This is a 61 yo F with PMHx of end-stage renal disease on HD ( TThS), bilateral lower extremity cellulitis, morbid obesity BMI = 56, chronic respiratory failure , diastolic CHF, COPD on chronic supplemental O2 @ 3 L, obesity hypoventilation syndrome, known lung nodule, DM II, arthritis, MGUS, hx of hypercalcemia who presented from [facility] after Cardiac arrest. The patient was resuscitated on arrival, and then underwent cardiac arrest again. She is currently maintained on a dopamine gtt. Past Medical/Surgical History Medical Problems: (1) Cellulitis of abdominal wall Status: Chronic (2) Cervical Disc Degen Status: Chronic (3) CHF (congestive heart failure) Status: Chronic (4) COPD (chronic obstructive pulmonary disease) Status: Chronic (5) Diab Mariama Wo Compl, Type Ii Or Unspec Type, Uncontrolled Status: Chronic (6) Diabetes Status: Chronic (7) Ovarian Cyst Nec/Nos Status: Chronic (8) Pulmonary Collapse Status: Resolved (9) Sciatica Status: Chronic ESRD on HD HTN Morbid Obesity (BMI 56) Obesity hypoventilation syndrome -- followed by pulmonology and maintained on intermittent BIPAP Lung nodule - stable over several years of observation by pulmonology Arthritis Chronic lower extremity edema MGUS History of hypercalcemia Surgical Hx: IJ THC placement 07/25/16 L antecubital AVF created 08/19/[address] Thapa Family History Cancer Diabetes mellitus Gallbladder disease Heart disease Lung disease Social History Smoking Status: Former Smoker Drug Use: none Marital Status: Housing status: lives with family Occupational Status: unemployed Immunizations History of Influenza Vaccine: Yes Influenza Vaccine Date: Apr 15, 2012 History of Tetanus Vaccine?: No History of Pneumococcal: Yes Pneumococcal Date: Jan 13, 2013 History of Hepatitis B Vaccine: No Multi-Drug Resistant Organisms History of MDRO: No Allergies Coded Allergies: Daptomycin (Verified Allergy, Intermediate, HIVES/ITCHING, 12/21/16) itching Sulfamethoxazole w/Trimethoprim (Verified Allergy, Intermediate, RASH, ) Iodine (Verified Allergy, Unknown, 12/21/16) Shellfish (Verified Allergy, Unknown, 12/21/16) Codeine (Verified Adverse Reaction, Mild, NAUSEA, 12/21/16) has tolerated morphine Uncoded Allergies: kristina wipes (Allergy, Severe, red rash, excoriation, 09/19/16) comfort baths (Adverse Reaction, Severe, rash, "breaks out all over", ) Home Medications Scheduled Allopurinol (Zyloprim), 100 MG PO DAILY Ascorbic Acid (Vitamin C 500 mg), 1,000 MG PO DAILY Atorvastatin (Lipitor), 40 MG PO DAILY Cholecalciferol (Vitamin D3), 1,000 INTER.UNIT PO DAILY Doxycycline Monohydrate (Monodox), 100 MG PO DAILY Famotidine (Famotidine), 20 MG PO DAILY Fentanyl (Fentanyl), 1 PATCH TD q three days Fluticasone Prop/Salmeterol (Advair Diskus 500/50 60 Dose), 1 PUFF INH BID Home O2 Therapy (Oxygen), 3 LITERS NA CONTINOUS Hydrocodone/Acetaminophen 10MG/325MG ([place] 10MG/325MG), 1 TAB PO 5XD Insulin Aspart (Novolog Flexpen), 50 UNITS SQ W/BREAKFAST Insulin Aspart (Novolog Flexpen), 50 UNITS SQ W/LUNCH Insulin Aspart (Novolog Flexpen), 90 UNITS SQ W/SUPPER Insulin Glargine (Toujeo Solostar), 70 UNITS SC TID Insulin Glargine (Toujeo Solostar), 70 UNITS SC TID Lidocaine (Lidocaine), 1 PATCH TD QAM Melatonin (Melatonin), 3 MG PO HS Metoprolol Succ (Toprol Xl) (Toprol-Xl ), 150 MG PO UD Multiple Vitamins W/ Minerals (One Daily For Women), 1 TAB PO DAILY Nystatin (Nystop), 1 APPLN EXT BID Pregabalin (Lyrica), 50 MG PO QPM Pyridoxine (Vitamin B6), 200 MG PO DAILY Tiotropium [place] (Spiriva Handihaler), 1 CAP INH DAILY Vitamin E (Vitamin E), 800 INTER.UNIT PO DAILY Scheduled PRN Hydrocodone/Acetaminophen 10MG/325MG ([place] 10MG/325MG), 1 TAB PO Q4H PRN for Pain Insulin Aspart (Novolog Flexpen), 40 UNITS SQ HS PRN for Late Night Snack Ipratropium-Albuterol (Duoneb), 1 TREATMENT INH Q6H PRN for SOB/Wheezing Lidocaine (Lidovex), 1 APPLN TOP Q6 PRN for Miconazole Nitrate (Desenex Shake Powder), 1 APPLN EXT PRN PRN for Affected Skin Folds Ondansetron Hcl (Zofran), 4 MG PO Q6 PRN for Nausea Physical Exam Vital Signs Date Time Temp Pulse Resp B/P (MAP) Pulse Ox O2 Delivery O2 Flow Rate FiO2 12/22/16 07:59 97 16 74/32 100 15.0 100 12/22/16 07:55 96 16 89/38 97 Mechanical Ventilator 15.0 100 12/22/16 07:49 97 14 81/45 99 Mechanical Ventilator 15.0 100 12/22/16 07:47 97 12/22/16 07:45 97 12 75/48 100 Mechanical Ventilator 15.0 100 12/22/16 07:43 98 12 78/41 99 Mechanical Ventilator 15.0 100 12/22/16 07:41 98 16 75/45 99 Mechanical Ventilator 15.0 100 12/22/16 07:38 99 14 70/45 98 Mechanical Ventilator 15.0 100 12/22/16 07:35 100 12/22/16 07:31 102 14 66/48 97 Mechanical Ventilator 15.0 100 12/22/16 07:30 100 12/22/16 07:29 102 12/22/16 07:29 102 16 70/43 97 Ambu-Bag 15.0 12/22/16 07:26 104 16 66/41 97 Ambu-Bag 15.0 12/22/16 07:23 106 14 70/44 97 Ambu-Bag 15.0 12/22/16 07:23 106 12/22/16 07:21 80 12 67/42 96 Ambu-Bag 15.0 12/22/16 07:19 78 12 65/42 98 Ambu-Bag 15.0 12/22/16 07:17 79 12/22/16 07:16 82 14 64/39 99 Ambu-Bag 15.0 12/22/16 07:13 82 12/22/16 07:12 82 12 80/50 99 Ambu-Bag 15.0 12/22/16 07:08 87 12/22/16 07:07 110 12 113/56 97 Ambu-Bag 15.0 10/23/17 07:07 88 12/22/16 06:56 Ambu-Bag 15.0 12/22/16 06:56 Ambu-Bag 15.0 Diagnostics Laboratory Results Results Past 24 Hours Test 12/22/16 07:11 12/22/16 07:17 Range/Units White Blood Count 14.69 4.8-10.8 K/uL Red Blood Count 2.99 4.2-5.4 M/uL Hemoglobin 9.6 12.0-16.0 g/dL Hematocrit 32.7 37-47 % Mean Corpuscular Volume 109.4 80-100 fL Mean Corpuscular Hemoglobin 32.1 25-34 pg Mean Corpuscular Hemoglobin Concent 29.4 32-36 g/dl Platelet Count 189 130-400 K/uL Mean Platelet Volume 9.6 7.4-10.4 fL RDW Standard Deviation 84.8 36.4-46.3 fL RDW Coefficient of Variation 21.2 11.5-14.5 % Nucleated RBC Absolute Count (auto) 0.22 0-0 K/uL Nucleated Red Blood Cells % 1.5 % Prothrombin Time 12.6 9.0-12.0 SECONDS Prothromb Time International Ratio 1.2 0.9-1.1 Activated Partial Thromboplast Time 34.7 21.0-31.0 SECONDS Partial Thromboplastin Ratio 1.3 Sodium Level 138 136-145 mmol/L Potassium Level 5.9 3.5-5.1 mmol/L Chloride Level 101 98-107 mmol/L Carbon Dioxide Level 19 21-32 mmol/L Anion Gap 18.0 18.0 16-25 mmol/L Blood Urea Nitrogen 28 7-18 mg/dl Creatinine 8.74 0.60-1.20 mg/dl Estimated GFR () 5.0 Estimated GFR (Non- 4.4 BUN/Creatinine Ratio 3.2 10-20 Random Glucose 196 70-99 mg/dl Calcium Level 10.1 8.5-10.1 mg/dl Total Creatine Kinase 88 26-192 U/L Creatine Kinase MB 3.6 0.5-3.6 ng/ml Creatine Kinase MB Ratio 4.1 0-3.0 Troponin I 0.112 0-0.045 ng/ml Bedside Hemoglobin 11.2 12.0-16.0 g/dl Bedside Hematocrit 33 37-47 % Bedside Sodium 135 135-144 mEq/L Bedside Potassium 5.7 3.3-5.0 mEq/L Bedside Chloride 100 101-112 mEq/L Bedside Total CO2 23 24-31 mEq/l Bedside Blood Urea Nitrogen 32 7-18 mg/dl Bedside Creatinine 6.9 0.6-1.3 mg/dl Bedside Glucose (other) 184 70-99 mg/dl Bedside Ionized Calcium (Stephen) 1.37 1.12-1.32 mmol/l Impression Assessment and Plan Cardiac Arrest x 2 - Etiology at this time is unknown - Will admit to the ICU - Continue dopamine - Palliative consultation at this time - WBC slightly elevated at 14K - Troponin elevated at 0.112 - can trend but expect this to be elevated ESRD on HD - Regular schedule is [facility] at [facility] - K+ =5.9, Cr = 6.9 Chronic Anemia - Hgb seems around baseline of mid-9s, will trend Chronic Bilateral Lower extremity edema - Echocardiogram October 2014 revealed LVEF 55 - 60%, mild LVH, RVSP 45, mild RV dilation and moderate TR - secondary to obesity hypoventilation syndrome/pulmonary hypertension. - Managed with PT for lymphedema, diuretics and hemodialysis. Obesity hypoventilation syndrome - followed by pulmonology and maintained on intermittent BIPAP Lung nodule - stable over several years of observation by pulmonology VTE Prophylaxis VTE Risk Assessment Done? Y/N: Yes Risk Level: High
[2016-12-22 08:30] VITALS: BP 69/31; PULSE 98; TEMP 36.5; Ht 165.1 cm; Wt 132.1 kg
[2016-12-22] MEDS ORDERED: INSULIN ASPART 100 UNITS/ML 3 ML PEN SC SCH (08:34)
[2016-12-22] MEDS ORDERED: MoRPHine SULFATE 2 MG/ML CARP IV PRN (08:45)
[2016-12-22 09:00] VITALS: BP 61/32; PULSE 99; O2SAT 96
[2016-12-22] MEDS ORDERED: PANTOprazole INJ 40 MG in SYRINGE 0 ML IV SCH (09:00)
[2016-12-22] MEDS ORDERED: CALCIUM CHLORIDE 10% 10 ML SYR IV ONE (11:04)
[2016-12-22] MEDS ORDERED: SODIUM BICARB 8.4% INJ 50 MEQ/50 ML SYR IV ONE (11:04)
[2016-12-22] MEDS ORDERED: SODIUM CHLORIDE 0.9% 10ML FLUSH IV ONE (11:04)
--- NOTE | 2016-12-22 11:25 | History and Physical ---
History & Physical Date & Time of Service: Dec 22, 2016 at 11:14 Chief Complaint: Cardiac Arrest Primary Care Physician: Emily Isaac C.R.N.P History of Present Illness Source: other (history is obtained from the emergency department physician, additional history from the patient's , EMS, hospital records.) This is a 61 yo F with PMHx of end-stage renal disease on HD ( TThS), bilateral lower extremity cellulitis, morbid obesity BMI = 56, chronic respiratory failure , diastolic CHF, COPD on chronic supplemental O2 @ 3 L, obesity hypoventilation syndrome, known lung nodule, DM II, arthritis, MGUS, hx of hypercalcemia who presented from [facility] after Cardiac arrest. The patient was resuscitated on arrival, and then underwent cardiac arrest again. She is currently maintained on a dopamine gtt. Past Medical/Surgical History Medical Problems: (1) Cellulitis of abdominal wall Status: Chronic (2) Cervical Disc Degen Status: Chronic (3) CHF (congestive heart failure) Status: Chronic (4) COPD (chronic obstructive pulmonary disease) Status: Chronic (5) Diab Mariama Wo Compl, Type Ii Or Unspec Type, Uncontrolled Status: Chronic (6) Diabetes Status: Chronic (7) Ovarian Cyst Nec/Nos Status: Chronic (8) Pulmonary Collapse Status: Resolved (9) Sciatica Status: Chronic Family History Cancer Diabetes mellitus Gallbladder disease Heart disease Lung disease Social History Smoking Status: Former Smoker Drug Use: none Marital Status: Housing status: lives with family Occupational Status: unemployed Immunizations History of Influenza Vaccine: Yes Influenza Vaccine Date: Apr 15, 2012 History of Tetanus Vaccine?: No History of Pneumococcal: Yes Pneumococcal Date: Jan 13, 2013 History of Hepatitis B Vaccine: No Multi-Drug Resistant Organisms History of MDRO: No Allergies Coded Allergies: Daptomycin (Verified Allergy, Intermediate, HIVES/ITCHING, 12/21/16) itching Sulfamethoxazole w/Trimethoprim (Verified Allergy, Intermediate, RASH, ) Iodine (Verified Allergy, Unknown, 12/21/16) Shellfish (Verified Allergy, Unknown, 12/21/16) Codeine (Verified Adverse Reaction, Mild, NAUSEA, 12/21/16) has tolerated morphine Uncoded Allergies: kristina wipes (Allergy, Severe, red rash, excoriation, 09/19/16) comfort baths (Adverse Reaction, Severe, rash, "breaks out all over", ) Home Medications Scheduled Allopurinol (Zyloprim), 100 MG PO DAILY Ascorbic Acid (Vitamin C 500 mg), 1,000 MG PO DAILY Atorvastatin (Lipitor), 40 MG PO DAILY Cholecalciferol (Vitamin D3), 1,000 INTER.UNIT PO DAILY Doxycycline Monohydrate (Monodox), 100 MG PO DAILY Famotidine (Famotidine), 20 MG PO DAILY Fentanyl (Fentanyl), 1 PATCH TD q three days Fluticasone Prop/Salmeterol (Advair Diskus 500/50 60 Dose), 1 PUFF INH BID Home O2 Therapy (Oxygen), 3 LITERS NA CONTINOUS Hydrocodone/Acetaminophen 10MG/325MG ([place] 10MG/325MG), 1 TAB PO 5XD Insulin Aspart (Novolog Flexpen), 50 UNITS SQ W/BREAKFAST Insulin Aspart (Novolog Flexpen), 50 UNITS SQ W/LUNCH Insulin Aspart (Novolog Flexpen), 90 UNITS SQ W/SUPPER Insulin Glargine (Toujeo Solostar), 70 UNITS SC TID Insulin Glargine (Toujeo Solostar), 70 UNITS SC TID Lidocaine (Lidocaine), 1 PATCH TD QAM Melatonin (Melatonin), 3 MG PO HS Metoprolol Succ (Toprol Xl) (Toprol-Xl ), 150 MG PO UD Multiple Vitamins W/ Minerals (One Daily For Women), 1 TAB PO DAILY Nystatin (Nystop), 1 APPLN EXT BID Pregabalin (Lyrica), 50 MG PO QPM Pyridoxine (Vitamin B6), 200 MG PO DAILY Tiotropium [place] (Spiriva Handihaler), 1 CAP INH DAILY Vitamin E (Vitamin E), 800 INTER.UNIT PO DAILY Scheduled PRN Hydrocodone/Acetaminophen 10MG/325MG ([place] 10MG/325MG), 1 TAB PO Q4H PRN for Pain Insulin Aspart (Novolog Flexpen), 40 UNITS SQ HS PRN for Late Night Snack Ipratropium-Albuterol (Duoneb), 1 TREATMENT INH Q6H PRN for SOB/Wheezing Lidocaine (Lidovex), 1 APPLN TOP Q6 PRN for Miconazole Nitrate (Desenex Shake Powder), 1 APPLN EXT PRN PRN for Affected Skin Folds Ondansetron Hcl (Zofran), 4 MG PO Q6 PRN for Nausea Review of Systems Unable to obtain due to acuity of situation Physical Exam Vital Signs Date Time Temp Pulse Resp B/P (MAP) Pulse Ox O2 Delivery O2 Flow Rate FiO2 12/22/16 09:00 99 15 61/32 (42) 96 Mechanical Ventilator 100 12/22/16 08:30 36.5 98 25 69/31 Mechanical Ventilator 100 12/22/16 08:25 80 12/22/16 08:11 96 14 69/36 99 15.0 12/22/16 08:06 96 14 73/40 99 Mechanical Ventilator 15.0 12/22/16 08:03 96 12 79/34 99 Mechanical Ventilator 15.0 100 12/22/16 07:59 97 16 74/32 100 15.0 100 12/22/16 07:55 96 16 89/38 97 Mechanical Ventilator 15.0 100 12/22/16 07:49 97 14 81/45 99 Mechanical Ventilator 15.0 100 12/22/16 07:47 97 12/22/16 07:45 97 12 75/48 100 Mechanical Ventilator 15.0 100 12/22/16 07:43 98 12 78/41 99 Mechanical Ventilator 15.0 100 12/22/16 07:41 98 16 75/45 99 Mechanical Ventilator 15.0 100 12/22/16 07:38 99 14 70/45 98 Mechanical Ventilator 15.0 100 12/22/16 07:35 100 12/22/16 07:31 102 14 66/48 97 Mechanical Ventilator 15.0 100 12/22/16 07:30 100 12/22/16 07:29 102 12/22/16 07:29 102 16 70/43 97 Ambu-Bag 15.0 12/22/16 07:26 104 16 66/41 97 Ambu-Bag 15.0 12/22/16 07:23 106 14 70/44 97 Ambu-Bag 15.0 12/22/16 07:23 106 12/22/16 07:21 80 12 67/42 96 Ambu-Bag 15.0 12/22/16 07:19 78 12 65/42 98 Ambu-Bag 15.0 12/22/16 07:17 79 12/22/16 07:16 82 14 64/39 99 Ambu-Bag 15.0 12/22/16 07:13 82 12/22/16 07:12 82 12 80/50 99 Ambu-Bag 15.0 12/22/16 07:08 87 12/22/16 07:07 110 12 113/56 97 Ambu-Bag 15.0 12/22/16 07:07 88 12/22/16 06:56 Ambu-Bag 15.0 12/22/16 06:56 Ambu-Bag 15.0 General Appearance: + obese, + pertinent finding (patient intubated) Head: normocephalic, atraumatic Eyes: normal inspection ENT: + pertinent finding (intubation) Neck: supple, no adenopathy Respiratory/Chest: + rhonchi (bilaterally), + pertinent finding (mechanical ventilation) Cardiovascular: + pertinent finding (distant heart sounds) Abdomen/GI: non tender Back: + pertinent finding (Mepilex dressing over presumed wound) Extremities/Musculoskelatal: + pertinent finding (wound dressings, presumably Unna boots to bilateral lower extremities) Neurologic/Psych: + pertinent finding ([place] Coma Scale 3, no response to deep painful stimuli) Skin: + mottled (capillary refill greater than 3 seconds) Lymphatic: no adenopathy Diagnostics Laboratory Results Results Past 24 Hours Test 12/22/16 07:11 12/22/16 07:17 12/22/16 07:49 Range/Units White Blood Count 14.69 4.8-10.8 K/uL Red Blood Count 2.99 4.2-5.4 M/uL Hemoglobin 9.6 12.0-16.0 g/dL Hematocrit 32.7 37-47 % Mean Corpuscular Volume 109.4 80-100 fL Mean Corpuscular Hemoglobin 32.1 25-34 pg Mean Corpuscular Hemoglobin Concent 29.4 32-36 g/dl Platelet Count 189 130-400 K/uL Mean Platelet Volume 9.6 7.4-10.4 fL RDW Standard Deviation 84.8 36.4-46.3 fL RDW Coefficient of Variation 21.2 11.5-14.5 % Nucleated RBC Absolute Count (auto) 0.22 0-0 K/uL Neutrophils % (Manual) 80.9 % Lymphocytes % (Manual) 13.9 % Monocytes % (Manual) 1.7 % Metamyelocytes % 0.9 % Myelocytes % 2.6 % Nucleated Red Blood Cells % 1.5 % Neutrophils # (Manual) 11.88 1.4-6.5 K/uL Total Absolute Neutrophils 11.88 1.4-6.5 K/uL Lymphocytes # (Manual) 2.04 1.2-3.4 K/uL Total Absolute Lymphocytes 2.04 1.2-3.4 K/uL Monocytes # (Manual) 0.25 0.11-0.59 K/uL Metamyelocytes # 0.13 0-0 K/uL Myelocytes # 0.38 0-0 K/uL Toxic Granulation 1+ Toxic Vacuolation 1+ Anisocytosis PRESENT Macrocytosis PRESENT Echinocytes 1+ Prothrombin Time 12.6 9.0-12.0 SECONDS Prothromb Time International Ratio 1.2 0.9-1.1 Activated Partial Thromboplast Time 34.7 21.0-31.0 SECONDS Partial Thromboplastin Ratio 1.3 Sodium Level 138 136-145 mmol/L Potassium Level 5.9 3.5-5.1 mmol/L Chloride Level 101 98-107 mmol/L Carbon Dioxide Level 19 21-32 mmol/L Anion Gap 18.0 18.0 16-25 mmol/L Blood Urea Nitrogen 28 7-18 mg/dl Creatinine 8.74 0.60-1.20 mg/dl Estimated GFR () 5.0 Estimated GFR (Non- 4.4 BUN/Creatinine Ratio 3.2 10-20 Random Glucose 196 70-99 mg/dl Calcium Level 10.1 8.5-10.1 mg/dl Total Creatine Kinase 88 26-192 U/L Creatine Kinase MB 3.6 0.5-3.6 ng/ml Creatine Kinase MB Ratio 4.1 0-3.0 Troponin I 0.112 0-0.045 ng/ml Bedside Hemoglobin 11.2 12.0-16.0 g/dl Bedside Hematocrit 33 37-47 % Bedside Sodium 135 135-144 mEq/L Bedside Potassium 5.7 3.3-5.0 mEq/L Bedside Chloride 100 101-112 mEq/L Bedside Total CO2 23 24-31 mEq/l Bedside Blood Urea Nitrogen 32 7-18 mg/dl Bedside Creatinine 6.9 0.6-1.3 mg/dl Bedside Glucose (other) 184 70-99 mg/dl Bedside Ionized Calcium (Stephen) 1.37 1.12-1.32 mmol/l Bedside Blood Gas pH (LAB) 6.92 7.35-7.45 Bedside Blood Gas pCO2 (LAB) 93 35-46 mmHg Bedside Blood Gas pO2 (LAB) 136 80-95 mmHg Bedside Blood Gas HCO3 (LAB) 19 19-24 meq/L Bedside Blood Gas Total CO2 22 24-31 mEq/l Bedside Blood Gas Base Excess (LAB) -14.0 -9-1.8 meq/L Bedside Blood Gas O2 Saturation 96.0 90-95 % Diagnostic Radiology I reviewed the chest x-ray obtained in the emergency department, endotracheal tube is in adequate position. EKG I reviewed the EKG and dependently as well as the interpretation by cardiology. Sinus tachycardia with right bundle branch block. Impression Assessment and Plan (1) Renal failure (ARF), acute on chronic (2) Cor pulmonale, chronic (3) Obesity hypoventilation syndrome (4) Acute hypercapnic respiratory failure (5) Cardiac arrest -Extensive discussion with the patient's . Patient is well known to the service and has multiple chronic medical issues. reports that yesterday the patient stated she was not going to make it. At this point she has presumably suffered a acute hypercarbic respiratory failure leading to cardiac arrest at her nursing facility. The EMS unit was called at approximately 6:00 in the morning, she arrived at [facility] emergency department at 7 AM. There was a report that the patient did not require defibrillation via an AED. She was brought in with active CPR in progress. She received a total of 5 mg of epinephrine as well as 3 A of bicarbonate and 2 A of calcium chloride. Initial blood gas revealed a pH of 6.9. reiterated they had just completed their living hussein and she did not want to undergo her heroic life sustaining treatment as her current level of functionality was unacceptable to her. With all family present was agreed that the patient's wishes she would not have wanted to undergo any further life- prolonging treatment. I believe the patient is suffered an end-stage terminal event for which there is no chance of meaningful recovery as defined by the patient's wishes. All family was in agreement of stopping her row like life- sustaining measures in transition to comfort care. We stopped the dopamine infusion and extubated the patient. The patient peacefully with family by her side at 09:15. Level of Care Critical Care Advanced Directives Existing Living Will: Yes Existing Power of Twine Winder: Yes Resuscitation Status DO NOT RESUSCITATE VTE Prophylaxis VTE Risk Assessment Done? Y/N: Yes Risk Level: High Social Service Consult Lives in Group Home Note Total Time: Critical Care 30 - 74 minutes I have personally spent 50 minutes of critical care time in the direct management of this patient. This is a life/limb threatening event. This includes time spent evaluating patient, direct bedside care, chart review, placing orders, interpretation of diagnostic studies, discussion with consultants, patient, and family members, as well as other required patient management activities. This time is exclusive of all separately billable procedures, and teaching time and separate from and in addition to any other critical care service time.
--- NOTE | 2016-12-22 11:36 | Discharge Summary ---
Discharge Summary Date of Service Dec 22, 2016. Discharge Summary Admission Date: Dec 22, 2016 at 07:43 Discharge Date: Dec 22, 2016 Discharge Disposition: Principal Diagnosis: Acute on chronic hypercarbic hypoxic respiratory failure Secondary Diagnoses/Problems: Cardiac arrest Acidosis Dialysis dependent COPD Morbid obesity: BMI 48.5 Admission Information HPI (per Admitting provider): This is a 61 yo F with PMHx of end-stage renal disease on HD ( TThS), bilateral lower extremity cellulitis, morbid obesity BMI = 56, chronic respiratory failure , diastolic CHF, COPD on chronic supplemental O2 @ 3 L, obesity hypoventilation syndrome, known lung nodule, DM II, arthritis, MGUS, hx of hypercalcemia who presented from [facility] after Cardiac arrest. The patient was resuscitated on arrival, and then underwent cardiac arrest again. She is currently maintained on a dopamine gtt. Physical Exam (per Admitting): General Appearance: + obese, + pertinent finding (patient intubated) Head: normocephalic, atraumatic Eyes: normal inspection ENT: + pertinent finding (intubation) Neck: supple, no adenopathy Respiratory/Chest: + rhonchi (bilaterally), + pertinent finding (mechanical ventilation) Cardiovascular: + pertinent finding (distant heart sounds) Abdomen/GI: non tender Back: + pertinent finding (Mepilex dressing over presumed wound) Extremities/Musculoskelatal: + pertinent finding (wound dressings, presumably Unna boots to bilateral lower extremities) Neurologic/Psych: + pertinent finding ([place] Coma Scale 3, no response to deep painful stimuli) Skin: + mottled (capillary refill greater than 3 seconds) Lymphatic: no adenopathy Hospital Course (1) Renal failure (ARF), acute on chronic (2) Cor pulmonale, chronic (3) Obesity hypoventilation syndrome (4) Acute hypercapnic respiratory failure (5) Cardiac arrest Patient had suffered a out of hospital cardiac arrest presumably secondary to acute hypercarbic, hypoxemic respiratory failure in the setting of chronic hypercarbic respiratory failure. The patient was intubated via EMS personnel and brought to [facility] for further evaluation. Patient was well known to the medicine service and in consultation with the patient's the patient would not want to undergo life-sustaining and heroic measures as her quality of life has reached a level unacceptable to her. It is unlikely that we would improve her chronic medical conditions and her functional status would likely be worse, so family proceeded with her wishes in instituting comfort measures. Further aggressive treatment was stopped and the patient was terminally extubated. She peacefully with her family at the bedside at 9:15 AM. Total time spent on discharge = This includes examination of the patient, discharge planning, medication reconciliation, and communication with other providers. Discharge Instructions Not applicable
== END 2016-12-22 11:05 | disposition expired | DRG 189 ==
LOC: C.EDB 06:56 → C.MSICU 07:43 → ENRESERV 07:51
PROVIDERS: ADMIT Anesthesiology Critical Care Medicine; ATTEND Anesthesiology Critical Care Medicine
DX: J96.22 Acute and chronic respiratory failure with hypercapnia (principal); I46.8 Cardiac arrest due to other underlying condition; J96.21 Acute and chronic respiratory failure with hypoxia; Z66 Do not resuscitate; Z51.5 Encounter for palliative care